=== PATIENT | female | born 1950 | race Caucasian/White ===

== ENCOUNTER 2019-05-15 13:30 | Outpatient (RCR) | payer MEDICARE, SELFPAY ==
--- NOTE | 2019-03-19 14:00 | PTOPEVAL ---
PHYSICAL THERAPY PLAN OF CARE Thank you for referring this patient to [facility]. Kaitlin is scheduled to be seen 2x/week for 4 weeks. Please review, sign, date and return this plan of care SUSANNA. I agree with and certify that the following plan of care is medically necessary. Referring Physician Date Attending Provider: Gadiel Zavala MD Therapy Assessment Status Assessment Status Assessment Status Evaluation Outpatient Past Medical History Cardiovascular History Hx Hypercholesterolemia Yes Hx Hypertension Yes Gastrointestinal History Hx Gastroesophageal Reflux Disease Yes Musculoskeletal History Hx Arthritis Yes: osteoarthritis Hx Spinal Surgery Yes: spinal cages Endocrine History Hx Hypothyroidism Yes Reproductive History Hx Hysterectomy Yes Psychosocial History Hx Anxiety Yes Hx Attention Deficit Disorder Yes Evaluation Information Problem Diagnosis back pain, frequent falls Onset 4 years ago Subjective Information Kaitlin is here today with c/ Query Text:As Reported By Patient/ o back pain with frequent Family falls. 4 years ago, she experienced back pain with sciatica and she received a fusion surgery and since the surgery she falls frequently. States that she fell 9 times this morning. She usually wears knee pads and her elbow has a cyst she fell on it so many times. Her usually helps her to stand up. She uses a rollator to walk and does have a power wheelchair 50% of the time. reports that since the surgery her back pain is worse ( sciatic pain did reduce) and she falls all the time (did not fall prior to surgery). She did therapy less than a year ago and reports that it did not help. denies changes in bowel or bladder. Previous Treatments For This Problem physical therapy at a different facility in 2018 Pain Scale Used Numeric (1 - 10) Self Report Pain Assessment Spine, Lumbar Reported Pain Level 8 Pain Frequency Chronic,Continuous Hip Strength
--- NOTE | 2019-04-18 12:06 | PTOPEVAL ---
PHYSICAL THERAPY PLAN OF CARE UPDATE AND PROGRESS REPORT Thank you for referring this patient to [facility]. Kaitlin will be seen for 2x/week for 4 weeks with continued PT. Please review, sign, date and return this plan of care SUSANNA. I agree with and certify that the following plan of care is medically necessary. Referring Physician Date Attending Provider: Gadiel Zavala MD Re-evaluation Outpatient Past Medical History Neurological History Hx Neurological Disorders No Significant History Cardiovascular History Hx Hypercholesterolemia Yes Hx Hypertension Yes Respiratory History Hx Respiratory Disorders No Significant History Gastrointestinal History Hx Gastroesophageal Reflux Disease Yes Genitourinary History Hx Other Genitourinary Disorders Yes: overactive bladder Musculoskeletal History Hx Arthritis Yes: osteoarthritis Hx Spinal Surgery Yes: spinal cages Hematological History Hx Hematological Disorders No Significant History Endocrine History Hx Hypothyroidism Yes HEENT History Hx HEENT Disorders No Significant History Integumentary History Hx Other Skin Disorders Yes: knot on right elbow Reproductive History Hx Hysterectomy Yes Psychosocial History Hx Anxiety Yes Hx Attention Deficit Disorder Yes Pain History Has Past Pain Affected Your Daily Life Yes: chronic back pain Anesthesia History Hx Anesthesia Reactions No Significant History Evaluation Information Problem Diagnosis back pain, frequent falls Onset 4 years ago Subjective Information Kaitlin continues to Query Text:As Reported By Patient/ experience frequent falls and Family severe back pain. She notes today that her handwriting is horrible and PT notes that her voice volume is consistently low and is requires significant effort to increase volume. Pain Scale Pain Scale Used Numeric (1 - 10) Self Report Pain Assessment Spine, Lumbar Reported Pain Level 6 Pain Description Aching,Soreness Pain Radiation Back Pain Aggravating Factors Other Pain Aggravating Factors Other Pain Aggravating Factors over did it the last few days, making several batches of cookies. Pain Behaviors Guarding Interventions Used By Clinicians Exercise Additional Pain Comments fell several times over the weekend, likely due fatigue Hip Strength Right Hip Flexion Strength 4+ Good + Hip Extension Strength 3+ Fa
--- NOTE | 2019-05-15 14:27 | PTOPEVAL ---
Thank you for referring this patient to [facility]. Please review, sign, date and return this plan of care SUSANNA. I agree with and certify that the following plan of care is medically necessary. Referring Physician Date Attending Provider: Gadiel Zavala MD Re-evaluation Outpatient Past Medical History Neurological History Hx Neurological Disorders No Significant History Cardiovascular History Hx Hypercholesterolemia Yes Hx Hypertension Yes Respiratory History Hx Respiratory Disorders No Significant History Gastrointestinal History Hx Gastroesophageal Reflux Disease Yes Genitourinary History Hx Other Genitourinary Disorders Yes: overactive bladder Musculoskeletal History Hx Arthritis Yes: osteoarthritis Hx Spinal Surgery Yes: spinal cages Hematological History Hx Hematological Disorders No Significant History Endocrine History Hx Hypothyroidism Yes HEENT History Hx HEENT Disorders No Significant History Integumentary History Hx Other Skin Disorders Yes: knot on right elbow Reproductive History Hx Hysterectomy Yes Psychosocial History Hx Anxiety Yes Hx Attention Deficit Disorder Yes Pain History Has Past Pain Affected Your Daily Life Yes: chronic back pain Anesthesia History Hx Anesthesia Reactions No Significant History Evaluation Information Problem Diagnosis back pain, frequent falls Onset 4 years ago Subjective Information Kaitlin continues to Query Text:As Reported By Patient/ experience frequent falls and Family severe back pain. She goes to the neurologist tomorrow for assessment of Parkinson's Disease Self Report Pain Assessment Spine, Lumbar Reported Pain Level 0 Pain Score Pain Score 0: Self Report Additional Pain Score Comments her back is good today, not hurting at all Hip Strength Right Hip Flexion Strength 5 Normal Hip Extension Strength 4- Good - Hip Abduction Strength 3+ Fair + Left Hip Flexion Strength 5 Normal Hip Extension Strength 4- Good - Hip Abduction Strength 3+ Fair + Knee Strength Right Knee Flexion Strength 5 Normal Knee Extension Strength 5 Normal Left Knee Flexion Strength 5 Normal Knee Extension Strength 5 Normal Martinez Balance Assessment Sitting to Standing Independent w/out Hands Unsupported Stance Ability Supervision- 2 minutes Sitting Unsupported, Feet on Floor Supervision- 2 minutes Standing to Sitting Safel
== END 2019-06-05 08:52 | disposition home or self-care (01) ==
LOC: ANHPT 13:30
PROVIDERS: PCP Family Medicine; Visit Provider Family Medicine
DX: M54.5 Low back pain (principal)
CPT/HCPCS: 97110; 97116; 97162

== ENCOUNTER 2019-11-21 14:51 | Outpatient (CLI) | payer MEDICARE, SELFPAY ==
--- NOTE | ~2019-11-21 | MM_ITS ---
EXAMINATION: MM screening germain BI w katie HISTORY: Screening TECHNIQUE: Craniocaudal and mediolateral oblique 3-D tomosynthesis images were obtained and synthetic 2-D images were generated. CAD analysis was submitted and interpreted. COMPARISON: Comparison to multiple prior studies sequentially, with oldest reviewed study dated 08/26. BREAST PARENCHYMAL COMPOSITION: There are scattered areas of fibroglandular density. FINDINGS: There is no evidence of suspicious mass, calcification, or architectural distortion to sugg est malignancy in either breast. There has been no suspicious interval change. IMPRESSION: 1. No mammographic evidence of malignancy. 2. Recommend routine screening mammography in one year. BI-RADS Category 1: Negative Reviewed, dictated and finalized at location A.
== END 2019-11-21 14:52 | disposition home or self-care (01) ==
LOC: ANHIMG 14:52
PROVIDERS: PCP Family Medicine; Visit Provider Family Medicine
DX: Z12.31 Encounter for screening mammogram for malignant neoplasm of breast (principal)
CPT/HCPCS: 77063; 77067

== ENCOUNTER 2020-02-11 09:02 | Outpatient (CLI) | payer MEDICARE, SELFPAY ==
--- NOTE | 2020-02-18 11:28 | WPDPFTINT ---
PFT Interpretation PFT Interpretation: This PFT met all criteria for ATS standards and reproducibility FEV/FVC post bronchodilator 78% FEV1 107% or 2.04 liters FVC 98% or 2.63 liters TLC 97% RV 87% RV/TLC 36% DLCO 88% when adjusted for alveolar volume but not adjusted for hemoglobin Flow volume loops were normal Impression: This is a normal PFT. Clinical correlation is advised.
== END 2020-02-11 09:03 | disposition home or self-care (01) ==
PROVIDERS: PCP Family Medicine; Visit Provider Internal Medicine Critical Care Medicine
DX: R06.02 Shortness of breath (principal)
CPT/HCPCS: 94060; 94618; 94726; 94729

== ENCOUNTER → 2020-02-11 10:34 | Outpatient (CLI) | payer MEDICARE, SELFPAY ==
--- NOTE | ~2020-02-11 | XR_ITS ---
EXAMINATION: XR chest 2V DATE: 02/11/2020 11:09 INDICATION: Shortness of breath TECHNIQUE: PA and lateral views of the chest are obtained. COMPARISON: 01/04/2016 FINDINGS: The lungs are free of acute opacities. Calcified pulmonary nodules are consistent with old granulomatous disease. There is no pleural effusion or pneumothorax. The cardiomediastinal silhouette is normal. There is mild thoracic spondylosis. Vertebroplasty changes noted at L1. There is partiall y imaged fusion hardware in the cervical and lumbar spine. IMPRESSION: 1. No acute cardiopulmonary abnormality. Reviewed, dictated and finalized at location A.
== END ==
PROVIDERS: PCP Family Medicine; Visit Provider Internal Medicine Critical Care Medicine
DX: R06.02 Shortness of breath (principal)
CPT/HCPCS: 71046

== ENCOUNTER 2020-03-24 12:38 | Outpatient (CLI) | payer MEDICARE, SELFPAY ==
--- NOTE | 2020-03-27 12:27 | WPDPFTINT ---
PFT Interpretation PFT Interpretation: Methacholine Challenge Study: FEV1 decreased from 2.05 liters or 91% to 1.57 liters or 69% or decrease by 24% at level three or 0.25 mg/ml This is a positive Methacholine Challenge Study. Clinical correlation is advised.
== END 2020-03-24 12:39 | disposition home or self-care (01) ==
PROVIDERS: PCP Family Medicine; Visit Provider Internal Medicine Critical Care Medicine
DX: R06.02 Shortness of breath (principal); R94.2 Abnormal results of pulmonary function studies
CPT/HCPCS: 94070; J7674

== ENCOUNTER 2020-06-23 12:36 | Outpatient (CLI) | payer MEDICARE, SELFPAY ==
--- NOTE | ~2020-06-23 | CT_ITS ---
EXAMINATION: CT diagnostic chest wo con EXAM DATE: 06/23/2020 13:41 INDICATION: SOB at rest and with exertion. Chronic cough >6 mo. TECHNIQUE: Spiral CT of the chest without contrast. Axial, coronal and sagittal images were reviewe d. Coronal maximum intensity pixel images of chest reviewed. The dose-length product (DLP) for this examination was 118.80 mGy-cm. The exposure was tailored according to patient size (auto mA exposur e control), and iterative reconstruction (ASIR) was used as additional dose reduction technique. The re is no prior study for comparison. FINDINGS: Several calcified granulomas. No suspicious pulmonary nodules. There are no pleural or pe ricardial effusions. Tracheobronchial tree is patent. There is no mediastinal, hilar or axillary lymphadenopathy. There is no pneumothorax. Heart normal in size. There is mild coronary arteria l calcification, arterial sclerosis. There is small sliding gastroesophageal hiatal hernia. There is chronic L1 mild to moderate compression fracture or burst fracture which has been treated with methy lmethacrylate injection. IMPRESSION: Small gastroesophageal hiatal hernia. No suspicious lung findings. Reviewed, dictated and finalized at location B. GUARD TESTER
--- NOTE | 2020-06-23 12:38 | ECHO_ITS ---
Patient Info Name: Kaitlin Bond Age: 69 years : 1950 Gender: Female Ht: 64 in Wt: 135 lbs BSA: 1.67 m2 HR: 65 bpm BP: 150 / 85 mmHg Heart Rhythm: Sinus Rhythm Technical Quality: Good Exam Date: 06/23/2020 1:04 PM Exam Location: [facility] Patient Status: Outpatient Admit Date: 06/23/2020 Staff Ordering Physician: Nolberto Stacy APRN Technology Integration Specialist: Gerald Vigil RDCS Attending Provider: Nolberto Stacy APRN Referring Physician: Regis ORR; Exam Type: CA echo doppler color flow Study Info Indications R06.02 - Shortness of breath Complete two-dimensional, color flow and Doppler transthoracic echocardiogram is performed. Strain analysis performed. History/Risk Factors Shortness of breath. Summary 1. Complete two-dimensional, color flow and Doppler transthoracic echocardiogram is performed. 2. Left ventricular chamber dimension is normal. 3. Left ventricular systolic function is normal, estimated at 60-65%. 4. The left ventricular diastolic function is grade I diastolic dysfunction. 5. E/e' 9 is minimally elevated. 6. Global longitudinal strain is normal at -19.7%. 7. There is trace mitral valve regurgitation. 8. No pulmonary hypertension, estimated pulmonary arterial systolic pressure is 37 mmHg. Left Ventricle E/e' 9 is minimally elevated. Global longitudinal strain is normal at -19.7%. Left ventricular chamber dimension is normal. Left ventricular systolic function is normal, estimated at 60-65%. The left ventricular diastolic function is grade I diastolic dysfunction. Right Ventricle Right ventricular systolic function is normal with normal TAPSE of 1.7 cm. Right ventricular chamber dimension is normal. Left Atria Left atrial chamber dimension is normal. Right Atria Right atrial chamber dimension is normal. Aortic Valve The aortic valve is trileaflet. There is no aortic valve stenosis. There is no aortic valve regurgitation. Pulmonic Valve There is no pulmonic regurgitation. Mitral Valve There is no mitral valve stenosis. There is trace mitral valve regurgitation. Tricuspid Valve There is no tricuspid valve regurgitation. No pulmonary hypertension, estimated pulmonary arterial systolic pressure is 37 mmHg. Pericardium/Pleural There is no pericardial effusion. Inferior Vena Cava Normal inferior vena cava with >50% collapse upon inspiration consistent with normal right atrial pressure, 5 mmHg. Aorta The aortic root size at the sinus of Valsalva is normal. Left Ventricular Outflow Tract Name Value Normal LVOT 2D LVOT Diameter 1.9 cm LVOT Doppler LVOT Peak Gradient 4 mmHg LVOT Mean Gradient 2 mmHg LVOT VTI 21 cm LVOT VTI/AV VTI Ratio 0.8 LVOT Stroke Volume 61 ml LVOT CO 3.6 l/min LVOT CI 2.2 l/min/m2 Mitral Valve Name
== END 2020-06-23 12:37 | disposition home or self-care (01) ==
PROVIDERS: Family Provider Family Medicine; PCP Family Medicine; Visit Provider Nurse Practitioner Family
DX: R06.02 Shortness of breath (principal); K21.9 Gastro-esophageal reflux disease without esophagitis
CPT/HCPCS: 71250; 93306

== ENCOUNTER → 2020-12-15 09:25 | Outpatient (CLI) | payer MEDICARE, SELFPAY ==
--- NOTE | ~2020-12-15 | MR_ITS ---
EXAMINATION: MR brain/brain stem wo con DATE: 12/15/2020 10:15 INDICATION: Diplopia. TECHNIQUE: Magnetic resonance imaging (MRI) of the brain and brainstem was performed without intraven ous contrast. Sequences included sagittal and axial T1-weighted FSE, axial diffusion-weighted FS EPI, axial T2*-weighted GRE, axial T2-weighted FLAIR Propeller, and axial T2-weighted Propeller. Apparent diffusion coefficient (ADC) maps were created. COMPARISON: None. FINDINGS: There are scattered areas of nonspecific increased T2-weighted signal intensity in the cere bral white matter. There is no intracranial hemorrhage, acute infarction, or abnormal intracranial ma ss lesion. The ventricles are normal in size. There are likely changes of ocular lens replacement daly geries. There is mild mucosal thickening in the ethmoid sinuses. The mastoid air cells are normal. IMPRESSION: 1. Mild nonspecific cerebral white matter disease, which likely represents chronic small vessel ische lukas disease. Reviewed, dictated and finalized at location B. IMPRESSION: 1. Mild nonspecific cerebral white matter disease, which likely represents renal nurse donny small vessel ischemic disease.
== END ==
PROVIDERS: PCP Family Medicine
DX: H53.2 Diplopia (principal); H50.30 Unspecified intermittent heterotropia; R90.82 White matter disease, unspecified
CPT/HCPCS: 70551

== ENCOUNTER 2021-01-20 15:08 | Outpatient (CLI) | payer MEDICARE, SELFPAY ==
--- NOTE | ~2021-01-20 | MM_ITS ---
EXAMINATION: MM screening germain BI w katie HISTORY: Screening mammogram TECHNIQUE: Craniocaudal and mediolateral oblique 3-D tomosynthesis images were obtained and synthetic 2-D images were generated. CAD analysis was submitted and interpreted. COMPARISON: 11/21/2019, 10/26/2018, 08/26/2017 bilateral digital screening mammogram examinations BREAST PARENCHYMAL COMPOSITION: There are scattered areas of fibroglandular density. FINDINGS: There is no evidence of suspicious mass, calcification, or architectural distortion to sugg est malignancy in either breast. There has been no suspicious interval change. IMPRESSION: 1. No mammographic evidence of malignancy. 2. Recommend routine screening mammography in one year. BI-RADS Category 1: Negative Reviewed, dictated and finalized at location A.
== END 2021-01-20 15:09 | disposition home or self-care (01) ==
LOC: ANHIMG 15:10
PROVIDERS: PCP Family Medicine; Visit Provider Family Medicine
DX: Z12.31 Encounter for screening mammogram for malignant neoplasm of breast (principal)
CPT/HCPCS: 77063; 77067

== ENCOUNTER → 2021-02-01 02:29 | Outpatient (CLI) | payer MEDICARE, SELFPAY ==
[2021-02-02 19:14] LABS: SARS-CoV-2 RNA PCR Negative
== END ==
PROVIDERS: PCP Family Medicine; Visit Provider Family Medicine
DX: Z01.812 Encounter for preprocedural laboratory examination (principal); Z20.822 Contact with and (suspected) exposure to COVID-19
CPT/HCPCS: C9803; U0003; U0005

== ENCOUNTER 2021-02-10 00:48 | Day surgery (SDC) | payer MEDICARE, SELFPAY ==
[2021-01-27 13:42] VITALS: BMI 21.7
[2021-02-10 06:59] VITALS: BP 140/80; PULSE 70; RESP 18; TEMP 36.6; O2SAT 100
[2021-02-10] MEDS: LACTATED RINGERS 1,000 ML 150 ML IV CONT (07:10)
--- NOTE | 2021-02-10 07:27 | WPDANESEPPF ---
Anes - Initial Pre Proc Eval Procedure: Operation Date: 02/10/21 08:00 Proposed Procedures p Esophagogastroduodenoscopy - Simon Ordonez MD Date/Time: 02/10/21 07:27 Surgeon: Simon Ordonez MD Pre Op Diagnosis: GERD Patient Data Age: 70 Gender: F Height: 1.63 m Weight: 56.2 kg Last Vital Signs Temp 36.6 C 02/10/21 06:59 Pulse 70 02/10/21 06:59 Resp 18 02/10/21 06:59 BP 140/80 02/10/21 06:59 Pulse Ox 100 02/10/21 06:59 Allergies Allergy/AdvReac Type Severity Reaction Status Date / Time gadobenic acid Allergy Intermediate Swelling Verified 02/10/21 06:58 [From CONTRAST-MRI] Home Medications Medication Instructions Recorded Confirmed Type amlodipine 10 mg tablet 10 mg PO DAILY #90 tablet 06/08/20 01/27/21 Rx atorvastatin 20 mg tablet 20 mg PO DAILY #90 tablet 06/08/20 01/27/21 Rx metoprolol succinate 100 mg 100 mg PO DAILY #90 tablet 06/08/20 01/27/21 Rx tablet,extended release 24 hr levothyroxine 50 mcg tablet 50 mcg PO DAILY #90 tablet 09/09/20 01/27/21 Rx omeprazole 40 mg capsule,delayed 40 mg PO BID #180 cap 11/26/20 01/27/21 Rx release linaclotide 72 mcg capsule 72 mcg PO DAILY #90 cap 01/14/21 01/27/21 Rx celecoxib 200 mg PO BID 01/27/21 01/27/21 History eszopiclone [Lunesta] 3 mg PO HS 01/27/21 01/27/21 History flaxseed oil 1,000 mg PO DAILY 01/27/21 01/27/21 History oxybutynin chloride 10 mg PO DAILY 01/27/21 01/27/21 History vitamin B complex [Super B Complex] 1 cap PO DAILY 01/27/21 01/27/21 History Patient hx anesthesia problems: none Family hx anesthesia problems: none Results Review: All pre-operative results and documents have been reviewed as part of the pre-operative evaluation. [facility] Past Medical History Medical History (Updated 01/21/21 @ 07:57 by Gadiel Zavala MD) Arthritis At high risk for falls BMI 22.0-22.9, adult Breast cancer screening by mammogram mammogram on 01/20/2021 was negative. Recheck in 1 year Chronic back pain Chronic cough Chronic depression Chronic low back pain with left-sided sciatica Chronic low back pain with right-sided sciatica Colon cancer screening Constipation Cough Elbow contusion Encounter for preprocedure screening laboratory testing for COVID-19 Fatigue GERD (gastroesophageal reflux disease) Hiatal hernia Hyperlipidemia Hypertension Hypothyroidism Insomnia Mixed hyperlipidemia Overactive bladder Peripheral neuropathy Seborrheic keratosis Urinary frequency Urinary frequency volume chart completed Social History Social History Years smoked: 10 Smoking status: Former smoker Tobacco type: cigarettes Alcohol intake: current Living arrangements: with family Gender identity (if verbalized by the patient): Female Spiritual care concerns: No Anes - Eval Final PreProcedure Day of Procedure 02/10/21 07:27 Patient weight: normal Heart: regular rate and rhythm Lungs: clear to auscultation and normal air movement Airway: Mallampati scale class II Neurological: alert and oriented Last oral intake: >/= 8 hours ASA classification: III Emergent: no Anesthetic plan: proceed Anesthesia type and monitoring: general GIVS Results Review: All pre-operative results and documents have been reviewed as part of the pre-operative evaluation. Informed Consent: The patient's anesthetic plan and its attendant risks and benefits were discussed with the patient/family/POA. Questions were solicited and answers provided to the satisfaction of the patient/family/POA.
--- NOTE | 2021-02-10 08:00 | WPDHPUPDATE1 ---
History and Physical Update Update Date/Time: 02/10/21 08:00 History and Physical has been reviewed, including an updated exam of the patient. There are NO changes in the patient's condition. Risks, benefits, and alternatives have been discussed and questions answered. Patient agrees to proceed with procedure.
[2021-02-10] MEDS: BENZOCAINE (*SP) 60 ML SPRAY CAN (HURRICAINE) 1 SPRAY MUCOUS MEM (08:07)
[2021-02-10 08:16] VITALS: BP 100/67; PULSE 61; RESP 15; O2SAT 100
[2021-02-10 08:26] VITALS: BP 112/77; PULSE 62; RESP 17; O2SAT 99
[2021-02-10 08:36] VITALS: BP 129/85; PULSE 66; RESP 23; O2SAT 100
== END 2021-02-10 08:49 | disposition home or self-care (01) ==
PROVIDERS: PCP Family Medicine; Visit Provider Internal Medicine Gastroenterology
PROC: 0DJ08ZZ Inspection of Upper Intestinal Tract, Via Natural or Artificial Opening Endoscopic (ICD-10-PCS; CPT 43235; principal; 2021-02-10 08:00)
DX: K21.9 Gastro-esophageal reflux disease without esophagitis (principal); K44.9 Diaphragmatic hernia without obstruction or gangrene; K29.50 Unspecified chronic gastritis without bleeding; I10 Essential (primary) hypertension; E78.2 Mixed hyperlipidemia; E03.9 Hypothyroidism, unspecified; F32.9 Major depressive disorder, single episode, unspecified; Z87.891 Personal history of nicotine dependence
CPT/HCPCS: 43239; 88305; C9803; J7120; U0003; U0005

== ENCOUNTER 2021-03-04 12:40 | Outpatient (CLI) | payer MEDICARE, SELFPAY ==
--- NOTE | ~2021-03-04 | XR_ITS ---
XR hip LT min 3V w AP pelvis DATE: 03/04/2021 13:06 INDICATION: Left hip pain, chronic. History of multiple falls. TECHNIQUE: AP pelvis. AP, lateral and crosstable lateral views of left hip COMPARISON: 08/24/2018 pelvis and right hip FINDINGS: Posterior and interbody spinal fusion at L3-S1. The pubic symphysis and sacroiliac joints are intact. No pelvic fracture or bone destruction. Joint s paces are symmetric and relatively preserved. There is mild bilateral hip osteoarthritis. No fracture, dislocation, avascular necrosis or bone destruction of the left hip. IMPRESSION: L3-S1 posterior and interbody spinal surgical fusion Mild bilateral hip osteoarthritis Reviewed, dictated and finalized at location A.
== END 2021-03-04 12:41 | disposition home or self-care (01) ==
LOC: ANHIMG 12:43
PROVIDERS: PCP Family Medicine; Visit Provider Family Medicine
DX: M16.0 Bilateral primary osteoarthritis of hip (principal); Z98.1 Arthrodesis status
CPT/HCPCS: 73502

== ENCOUNTER 2021-09-01 01:53 | Day surgery (SDC) | payer MEDICARE, SELFPAY ==
[2021-08-17 13:06] VITALS: BMI 20.5
[2021-09-01 10:15] VITALS: BP 146/83; PULSE 96; RESP 16; TEMP 36.4; O2SAT 100
--- NOTE | 2021-09-01 10:20 | WPDANESEPPF ---
Anes - Initial Pre Proc Eval Procedure: Operation Date: 09/01/21 11:30 Proposed Procedures p Screening Colonoscopy - Simon Ordonez MD Date/Time: 09/01/21 10:20 Surgeon: Simon Ordonez MD Pre Op Diagnosis: neoplasm screening Patient Data Age: 71 Gender: F Height: 1.6 m Weight: 51.5 kg Last Vital Signs Temp 36.4 C L 09/01/21 10:15 Pulse 96 09/01/21 10:15 Resp 16 09/01/21 10:15 BP 146/83 H 09/01/21 10:15 Pulse Ox 100 09/01/21 10:15 Allergies Allergy/AdvReac Type Severity Reaction Status Date / Time gadobenic acid Allergy Intermediate Swelling Verified 09/01/21 10:14 [From CONTRAST-MRI] Home Medications Medication Instructions Recorded Confirmed Type amlodipine 10 mg tablet 10 mg PO DAILY #90 tablet 06/08/20 08/17/21 Rx levothyroxine 50 mcg tablet 50 mcg PO DAILY #90 tablet 09/09/20 08/17/21 Rx omeprazole 40 mg capsule,delayed 40 mg PO BID #180 cap 11/26/20 08/17/21 Rx release metoprolol succinate 100 mg 100 mg PO DAILY #90 tablet 03/22/21 08/17/21 Rx tablet,extended release 24 hr oxybutynin chloride 5 mg tablet 5 mg PO BID #180 tablet 03/22/21 08/17/21 Rx celecoxib 200 mg capsule 200 mg PO BID PRN #180 cap 05/18/21 08/17/21 Rx atorvastatin 20 mg tablet 20 mg PO DAILY #90 tablet 06/15/21 08/17/21 Rx eszopiclone 3 mg tablet 3 mg PO . q.h.s. PRN #30 tablet 08/17/21 08/17/21 Rx Patient hx anesthesia problems: post op nausea/vomiting Family hx anesthesia problems: none Results Review: All pre-operative results and documents have been reviewed as part of the pre-operative evaluation. [facility] Past Medical History Medical History (Updated 07/08/21 @ 15:34 by Gadiel Zavala MD) Arthritis At high risk for falls BMI 22.0-22.9, adult BMI 23.0-23.9, adult Breast cancer screening by mammogram mammogram on 01/20/2021 was negative. Recheck in 1 year Chronic back pain Chronic cough Chronic depression Chronic left hip pain Chronic low back pain with left-sided sciatica Chronic low back pain with right-sided sciatica Colon cancer screening Constipation Cough Elbow contusion Encounter for preprocedure screening laboratory testing for COVID-19 Essential hypertension Fatigue GERD (gastroesophageal reflux disease) Hiatal hernia Hyperlipidemia Hypertension Hypothyroidism TSH 1.22 with free T4 at 1.5 on 12/15/2020 Insomnia Low iron (12/15/20) iron 51 with 14% saturation and hemoglobin 12.5 on 12/15/2020 Mixed hyperlipidemia total cholesterol 207, triglycerides 87, HDL 62, LDL 126 on 12/15/2020 Overactive bladder Peripheral neuropathy Seborrheic keratosis Urinary frequency Urinary frequency volume chart completed Vitamin D deficiency, unspecified (12/15/20) level low at 26 with goal greater than 30 on 12/15/2020 Weight loss, unintentional Surgical History Surgical History History of back surgery lumbosacral fusion Family History Family History Other Alcohol abuse Diabetes mellitus Hypertension Social History Social History Years smoked: 10 Smoking status: Former smoker Tobacco type: cigarettes Alcohol intake: never Substance use: never Substance use type: does not use Living arrangements: with family Gender identity (if verbalized by the patient): Female Spiritual care concerns: No Anes - Eval Final PreProcedure Day of Procedure 09/01/21 10:20 Patient weight: normal Heart: regular rate and rhythm Lungs: clear to auscultation and normal air movement Airway: Mallampati scale class II Neurological: alert and oriented Last oral intake: >/= 8 hours ASA classification: II Emergent: no Anesthetic plan: proceed Anesthesia type and monitoring: general GIVS and standard monitoring Results Review: All pre-operative results and documents have been reviewe
[2021-09-01] MEDS: LACTATED RINGERS 1,000 ML 150 ML IV CONT (10:27)
--- NOTE | 2021-09-01 10:53 | PM.HPGS ---
History of Present Illness History of Present Illness Consent: Risks, benefits, and alternatives have been discussed and questions answered. Patient agrees to proceed with procedure. Chief complaint: neoplasm screening Narrative: Kaitlin Bond is a 71 year old female here for screening colonoscopy, last one over 10 years ago. Review of Systems Constitutional: Constitutional: Denies headache(s) and Denies weakness Eyes: Eyes: Denies blurry vision ENT: Reports Normal hearing present, Denies headache(s) and Denies neck pain Cardiovascular: Cardiovascular: Denies chest pain and Denies dyspnea Respiratory: Respiratory: Denies dyspnea Gastrointestinal: Gastrointestinal: Reports no additional gastrointestinal complaints Genitourinary: Genitourinary: Denies dysuria Musculoskeletal: Musculoskeletal: Denies neck pain Integumentary/Breasts: Skin/Breast: Denies dry skin Neurologic: Reports Normal hearing present, Denies headache(s) and Denies weakness Psychiatric: Psychiatric: Denies anxiety Endocrine: Endocrine: Denies change in body appearance Hematologic/Lymphatic: Hematologic/Lymphatic: Denies easy bleeding Allergic/Immunologic: Allergic/Immunologic: Denies urticaria PMFSH Past Medical History Medical History (Updated 07/08/21 @ 15:34 by Gadiel Zavala MD) Arthritis At high risk for falls BMI 22.0-22.9, adult BMI 23.0-23.9, adult Breast cancer screening by mammogram mammogram on 01/20/2021 was negative. Recheck in 1 year Chronic back pain Chronic cough Chronic depression Chronic left hip pain Chronic low back pain with left-sided sciatica Chronic low back pain with right-sided sciatica Colon cancer screening Constipation Cough Elbow contusion Encounter for preprocedure screening laboratory testing for COVID-19 Essential hypertension Fatigue GERD (gastroesophageal reflux disease) Hiatal hernia Hyperlipidemia Hypertension Hypothyroidism TSH 1.22 with free T4 at 1.5 on 12/15/2020 Insomnia Low iron (12/15/20) iron 51 with 14% saturation and hemoglobin 12.5 on 12/15/2020 Mixed hyperlipidemia total cholesterol 207, triglycerides 87, HDL 62, LDL 126 on 12/15/2020 Overactive bladder Peripheral neuropathy Seborrheic keratosis Urinary frequency Urinary frequency volume chart completed Vitamin D deficiency, unspecified (12/15/20) level low at 26 with goal greater than 30 on 12/15/2020 Weight loss, unintentional Surgical History Surgical History History of back surgery lumbosacral fusion Family History Family History Other Alcohol abuse Diabetes mellitus Hypertension Social History Social History Years smoked: 10 Smoking status: Former smoker Tobacco type: cigarettes Alcohol intake: never Substance use: never Substance use type: does not use Living arrangements: with family Gender identity (if verbalized by the patient): Female Spiritual care concerns: No Meds Home Medications and Allergies Home Medications Medication Instructions Recorded Confirmed Type amlodipine 10 mg tablet 10 mg PO DAILY #90 tablet 06/08/20 09/01/21 Rx levothyroxine 50 mcg tablet 50 mcg PO DAILY #90 tablet 09/09/20 09/01/21 Rx omeprazole 40 mg capsule,delayed 40 mg PO BID #180 cap 11/26/20 09/01/21 Rx release metoprolol succinate 100 mg 100 mg PO DAILY #90 tablet 03/22/21 09/01/21 Rx tablet,extended release 24 hr oxybutynin chloride 5 mg tablet 5 mg PO BID #180 tablet 03/22/21 09/01/21 Rx celecoxib 200 mg capsule 200 mg PO BID PRN #180 cap 05/18/21 09/01/21 Rx atorvastatin 20 mg tablet 20 mg PO DAILY #90 tablet 06/15/21 09/01/21 Rx eszopiclone 3 mg tablet 3 mg PO . q.h.s. PRN #30 tablet 08/17/21 09/01/21 Rx Allergies Allergy/AdvReac Type Severity Reaction Status Date / Time gadobenic acid Allergy Intermediate
[2021-09-01 11:12] VITALS: BP 96/61; PULSE 69; RESP 19; O2SAT 100
[2021-09-01 11:22] VITALS: BP 108/73; PULSE 70; RESP 15; O2SAT 100
[2021-09-01 11:32] VITALS: BP 130/84; PULSE 76; RESP 16; O2SAT 100
== END 2021-09-01 11:40 | disposition home or self-care (01) ==
PROVIDERS: PCP Family Medicine; Visit Provider Internal Medicine Gastroenterology
PROC: 0DJD8ZZ Inspection of Lower Intestinal Tract, Via Natural or Artificial Opening Endoscopic (ICD-10-PCS; CPT 45378; principal; 2021-09-01 11:30)
DX: Z12.11 Encounter for screening for malignant neoplasm of colon (principal); C18.2 Malignant neoplasm of ascending colon; K63.5 Polyp of colon; K21.9 Gastro-esophageal reflux disease without esophagitis; K44.9 Diaphragmatic hernia without obstruction or gangrene; I10 Essential (primary) hypertension; E03.9 Hypothyroidism, unspecified; E78.2 Mixed hyperlipidemia; E55.9 Vitamin D deficiency, unspecified; N32.81 Overactive bladder; M54.9 Dorsalgia, unspecified; M19.90 Unspecified osteoarthritis, unspecified site; M54.41 Lumbago with sciatica, right side; M54.42 Lumbago with sciatica, left side; G89.29 Other chronic pain; G62.9 Polyneuropathy, unspecified; F32.A Depression, unspecified; Z87.891 Personal history of nicotine dependence
CPT/HCPCS: 45385; 45380; 45381; 88305; 88342; J2704; J7120

== ENCOUNTER 2021-09-08 06:49 | Outpatient (CLI) | payer MEDICARE, SELFPAY ==
--- NOTE | ~2021-09-08 | CT_ITS ---
EXAMINATION: CT abdomen pelvis w con DATE: 09/08/2021 07:20 INDICATION: Colon cancer TECHNIQUE: Computed tomography (CT) of the abdomen and pelvis was performed with 100 CC Omnipaque 300 intravenous contrast. Automated exposure control and iterative reconstruction technique were employe d. Exam dose: 172.79 mGy-cm total exam DLP. COMPARISON: None. FINDINGS: The lung bases are clear of infiltrate or consolidation. Heart size is normal. No pericardi al or pleural effusion. The liver, gallbladder, bile ducts, spleen, pancreas and pancreatic duct are unremarkable. Normal morphology of the adrenal glands. An approximately 4 mm probable cyst at the lower pole of each kidney. The kidneys are otherwise unrem arkable. No urinary tract calculus or hydroureteronephrosis. The urinary bladder is unremarkable. Status post hysterectomy. Normal caliber of the abdominal aorta. No intraperitoneal or retroperitoneal or pelvic mass lesion or adenopathy or ascites. No bowel obstruction or intraperitoneal free air. Normal caliber of the abdominal aorta. No intraperitoneal or retroperitoneal or pelvic mass lesion or adenopathy or ascites is evident. Diffuse osteopenia. There is burst fracture deformity and vertebroplasty at L1. There is moderately severe degenerative d isc disease and 5.2 mm retrolisthesis at L2-3. Status post posterior and interbody spinal fusion at L3-S1. Borderline grade 1/grade 2 anterolisthesis at L5-S1. IMPRESSION: Probable small cyst at lower pole of each kidney Status post hysterectomy Burst fracture deformity and vertebroplasty at L1 Moderately severe degenerative disc disease and 5.2 mm retrolisthesis at L2-3 Status post posterior and interbody spinal fusion at L3-S1 Borderline grade 1/grade 2 anterolisthesis at L5-S1 Reviewed, dictated and finalized at [facility]. Reviewed, dictated and finalized at location [facility].
[2021-09-08 07:13] LABS: Estimated Glomerular Filt Rate > 60
== END 2021-09-08 06:50 | disposition home or self-care (01) ==
LOC: ANHIMG 06:54
PROVIDERS: PCP Family Medicine; Visit Provider Internal Medicine Gastroenterology
DX: K63.89 Other specified diseases of intestine (principal); Z90.710 Acquired absence of both cervix and uterus; Z98.890 Other specified postprocedural states; M51.36 Other intervertebral disc degeneration, lumbar region; Z98.1 Arthrodesis status; M43.17 Spondylolisthesis, lumbosacral region
CPT/HCPCS: 74177; Q9967

== ENCOUNTER 2021-10-04 09:59 | Outpatient (CLI) | payer MEDICARE, SELFPAY ==
--- NOTE | 2021-10-04 10:40 | ECG_ITS ---
Measurements Intervals [place] Rate: 70 P: 44 MI: 151 QRS: 38 QRSD: 89 T: 33 QT: 386 QTc: 418 Interpretive Statements SINUS RHYTHM COMPARED TO ECG 05/21/2019 13:09:50 NO SIGNIFICANT CHANGES Electronically Signed On 10-04-2021 15:34:01 CDT by Pio Browne MD
[2021-10-04 11:44] LABS: Hemoglobin 12.5 g/dL (12.0-15.0)
[2021-10-04 12:14] LABS: Carcinoembryonic Antigen 1.7 ng/mL (0.0-3.0)
== END 2021-10-04 10:00 | disposition home or self-care (01) ==
PROVIDERS: Anesthesiology; PCP Family Medicine; Visit Provider Surgery
DX: C18.2 Malignant neoplasm of ascending colon (principal); Z01.818 Encounter for other preprocedural examination
CPT/HCPCS: 36415; 82378; 85014; 85018; 86850; 86900; 86901; 93005

== ENCOUNTER 2021-10-13 14:33 | Inpatient (IN) | payer MEDICARE, SELFPAY ==
[2021-10-04 09:27] VITALS: BMI 19.8
--- NOTE | 2021-10-04 09:27 | PC.NURSE ---
Addendum entered by Marcy Trinidad RN 10/04/21 10:17: PT AWARE THAT LAST DOSE OF VIT E IS TO BE TAKEN ON 10/09/21 Original Note: Report to the Outpatient Waiting Room, entrance under the green pavilion located off [facility], at time _1000_ on date _10/13/21_. OR Time: _1200_. - You and your visitor will be asked a series of questions to screen for COVID 19 for your protection. - Only one visitor is allowed at this time. - The patient visitor is requested to leave or wait in car when not with patient. VISITING HOUS 10AM-8PM, USE MAIN HOSPITAL ENTRANCE - A mask is required within the hospital. Patients may have clear liquids (water, carbonated beverages, clear teas, apple juice) until 3 hours prior to surgery (0900 AM) with a maximum of 20 ounces. - No food from midnight until time of surgery Take the following medications with a SIP of water the morning of surgery: _AMLODIPINE, LEVOTHYROXINE, METOPROLOL_ Medications to discontinue per ANESTHESIA __VITAMIN E - 3 DAYS PRIOR TO SURGERY, Date to take last dose Please no make-up, nail azerbaijani, hairspray, perfume, deodorant, or body powder the day of surgery. No jewelry (including any body piercings) or valuables the day of surgery, leave them at home. Please take a shower or bath the night before, or the morning of, surgery with an antibacterial soap. Wear comfortable, loose fitting clothing. - Jewelry must be removed prior to entering the operating room. Rings and piercings that are not removed may be cut off. - The hospital will not accept responsibility for valuables. - Please leave all valuables, including medications, at home the day of surgery. If you are going home after surgery, a licensed starting gate driver must drive you home. - NO public transportation without another adult. - We recommend that an adult stay with you for 24 hours following discharge. - We also recommend that you do not drive, make important decision, drink alcoholic beverages, or take any drugs that were not prescribed by your health care provider for at least 24 hours after your discharge time. Follow any additional instructions given to you from DR. FLEMING. DIET/ENSURE BUNDLE, BOWEL PREP, ANTIBIOTICS, HIBICLENS SHOWER DAY BEFORE AND AM OF SURGERY If you or anyone in your household have experienced Covid symptoms in the past week, please notify your surgeon or the nurse liaison at the phone number below for possible testing. Instructions given to _PT_and asked if any additional questions and then verbalized understanding. Patient advised to call surgeon office or pre surgery nurse liaison [phone] if any additional questions.
[2021-10-04 10:19] VITALS: BP 132/80; PULSE 74; RESP 18; TEMP 36.9; O2SAT 100
--- NOTE | 2021-10-12 12:25 | WPDANESEPPF ---
Anes - Initial Pre Proc Eval Procedure: Operation Date: 10/13/21 12:00 Proposed Procedures p Hand Assisted Laparoscopic Right Hemicolectomy - Emil Black DO Date/Time: 10/12/21 12:25 Surgeon: Emil Black DO Pre Op Diagnosis: ascending colon CA Patient Data Age: 71 Gender: F Height: 1.6 m Weight: 50.9 kg Last Vital Signs Temp 36.9 C 10/04/21 10:19 Pulse 74 10/04/21 10:19 Resp 18 10/04/21 10:19 BP 132/80 10/04/21 10:19 Pulse Ox 100 10/04/21 10:19 O2 Del Method Room Air 10/04/21 10:19 Allergies Allergy/AdvReac Type Severity Reaction Status Date / Time gadobenic acid Allergy Intermediate Hives & Verified 10/04/21 10:13 [From CONTRAST-MRI] SWELLING adhesive tape AdvReac Mild SKIN Verified 10/13/21 10:08 IRRITATION Home Medications Medication Instructions Recorded Confirmed Type omeprazole 40 mg capsule,delayed 40 mg PO BID #180 caps 11/26/20 10/13/21 Rx release oxybutynin chloride 5 mg tablet 5 mg PO BID #180 tabs 03/22/21 10/13/21 Rx eszopiclone 3 mg tablet (Lunesta) 3 mg PO . q.h.s. PRN insomnia #30 08/17/21 10/13/21 Rx tabs erythromycin 500 mg tablet See Rx Instructions .Route 09/20/21 10/13/21 Rx .COMPLEX #6 tabs neomycin 500 mg tablet See Rx Instructions .Route 09/20/21 10/13/21 Rx .COMPLEX #6 tabs amlodipine 10 mg tablet 10 mg PO QAM 10/04/21 10/13/21 History atorvastatin 20 mg tablet 20 mg PO QAM 10/04/21 10/13/21 History celecoxib 200 mg capsule 200 mg PO BID 10/04/21 10/13/21 History levothyroxine 50 mcg tablet 50 mcg PO QAM 10/04/21 10/13/21 History metoprolol succinate 100 mg 100 mg PO QAM 10/04/21 10/13/21 History tablet,extended release 24 hr vitamin E 400 unit capsule 400 unit PO QAM 10/04/21 10/13/21 History ECG: Date of Service: 10/04/21 Procedure(s): CA 12 lead EKG Accession Number(s): [id number] cc: ~ ? Measurements Intervals? [place]? Rate: ? 70 ? P:? 44 HI: ? 151? QRS:? 38 QRSD: ? 89 ? T:? 33 QT: ? 386? QTc:? 418? Interpretive Statements SINUS RHYTHM COMPARED TO ECG 05/21/2019 13:09:50 NO SIGNIFICANT CHANGES Electronically Signed On 10-04-2021 15:34:01 CDT by Pio Browne MD Patient hx anesthesia problems: none Family hx anesthesia problems: none Results Review: All pre-operative results and documents have been reviewed as part of the pre-operative evaluation. [facility] Past Medical History Medical History Arthritis At high risk for falls BMI 22.0-22.9, adult BMI 23.0-23.9, adult Breast cancer screening by mammogram mammogram on 01/20/2021 was negative. Recheck in 1 year Chronic back pain Chronic cough Chronic depression Chronic left hip pain Chronic low back pain with left-sided sciatica Chronic low back pain with right-sided sciatica Colon cancer screening Colonic mass (~09/01/21) 25-30 mm mass ascending colon Constipation Cough Elbow contusion Encounter for preprocedure screening laboratory testing for COVID-19 Essential hypertension Fatigue GERD (gastroesophageal reflux disease) Hiatal hernia Hyperlipidemia Hypertension Hypothyroidism TSH 1.22 with free T4 at 1.5 on 12/15/2020 Insomnia Low iron (12/15/20) iron 51 with 14% saturation and hemoglobin 12.5 on 12/15/2020 Mixed hyperlipidemia total cholesterol 207, triglycerides 87, HDL 62, LDL 126 on 12/15/2020 Overactive bladder Peripheral neuropathy Seborrheic keratosis Urinary frequency Urinary frequency volume chart completed Vitamin D deficiency, unspecified (12/15/20) level low at 26 with goal greater than 30 on 12/15/2020 Weight loss, unintentional Surgical History Surgical History (Reviewe
[2021-10-12 15:00] VITALS: BP 114/73; PULSE 65; RESP 15; TEMP 36.6; O2SAT 99
[2021-10-13] VITALS (12 sets, daily range): BP systolic 100–134; BP diastolic 55–80; PULSE 62–79; RESP 10–20; TEMP 36–37.3; O2SAT 98–100
--- NOTE | ~2021-10-13 | XR_ITS ---
XR chest 1V portable DATE: 10/16/2021 06:13 INDICATION: Atrial fibrillation with rapid ventricular response TECHNIQUE: Portable AP chest on 10/16/2021 at 0606 hours COMPARISON: 06/23/2020 CT chest FINDINGS: There is air beneath the right leaf of the diaphragm and double wall sign in the right uppe r abdomen, likely due to recent abdominal surgery. There are numerous gas distended small bowel segme nts, likely due to postoperative adynamic ileus. Normal heart size. Aortic calcification and unfolding. No hilar or mediastinal enlargement. Right upper lobe calcified pulmonary granuloma. No pulmonary infiltrate or consolidation, pleural eff usion, pulmonary vascular congestion or pneumothorax is detected. IMPRESSION: Pneumoperitoneum; the patient's IM U nurse Marisol gives a history of recent abdominal daly abiola, which likely accounts for the free air No active cardiopulmonary disease Aortic atherosclerosis Reviewed, dictated and finalized at location A. IMPRESSION: Pneumoperitoneum; the patient's IM U nurse Marisol gives a history o f recent abdominal surgery, which likely accounts for the free air No active cardiopulmonary disease Aortic atherosclerosis
--- NOTE | ~2021-10-13 | CT_ITS ---
EXAMINATION: CT brain wo con INDICATION: Head injury COMPARISON: None TECHNIQUE: Standard unenhanced head CT. The dose-length product (DLP) was 605.33 mGy-cm. The mA was a djusted according to patient size. Iterative reconstruction technique was employed. FINDINGS: There is no acute intraparenchymal hemorrhage. No evidence of mass lesion. No evidence of a cute infarction. There is mild periventricular and subcortical hypodensity probably related to small vessel ischemic disease. There is mild prominence of the sulci and ventricles related to cerebral atr ophy. Intracranial calcified cerebral atherosclerosis is noted. There are no extra-axial collections. There is no mass effect or midline shift. Changes in the globes are likely from ocular lens surgery. The visualized sinuses and mastoid air cells are well aerated. IMPRESSION: 1. No acute intracranial abnormality. 2. Age related findings. Reviewed, dictated and finalized at location A.
--- NOTE | ~2021-10-13 | XR_ITS ---
XR abdomen/kub 1V DATE: 10/16/2021 06:13 INDICATION: Nausea and vomiting TECHNIQUE: 2 supine AP views on 10/16/2021 at 0602 0603 hours COMPARISON: 09/08/2021 CT abdomen pelvis FINDINGS: There is gaseous distention of multiple small bowel segments, which may be due to postopera tive adynamic ileus. Double wall sign in right upper quadrant suggests mild pneumoperitoneum, which is likely postoperativ e. There is subcutaneous emphysema of the abdominal wall. No visceromegaly or significant abnormal calcification is noted. Postoperative changes from posterior and interbody spinal fusion from L3-S1. Status post vertebroplas ty at L1. IMPRESSION: Probable postoperative adynamic ileus and mild pneumoperitoneum Reviewed, dictated and finalized at Location [facility]. Reviewed, dictated and finalized at location A.
--- NOTE | ~2021-10-13 | XR_ITS ---
XR chest 1V portable DATE: 10/16/2021 09:22 INDICATION: Tachycardia. Atrial fibrillation. TECHNIQUE: Portable upright AP chest on 10/16/2021 at 0918 hours COMPARISON: 10/16/2021 portable AP chest at 0606 hours FINDINGS: Heart size appears normal. Is aortic arch calcification. No hilar or mediastinal enlargemen t. Minimal atelectasis is suggested in the lower lung zones. No pulmonary consolidation. No pulmonary va scular congestion, pleural effusion or pneumothorax is evident. Density distention of the bowel. Status post vertebroplasty at L1. Osteopenia. IMPRESSION: Minimal atelectasis at the lung bases; otherwise no active cardiopulmonary disease Reviewed, dictated and finalized at location A. IMPRESSION: Minimal atelectasis at the lung bases; otherwise no active cardiopu lmonary disease
--- NOTE | 2021-10-13 11:02 | WPDHPUPDATE1 ---
History and Physical Update Update Date/Time: 10/13/21 11:02 History and Physical has been reviewed, including an updated exam of the patient. There are NO changes in the patient's condition. Risks, benefits, and alternatives have been discussed and questions answered. Patient agrees to proceed with procedure.
[2021-10-13] MEDS: ACETAMINOPHEN 500 MG TABLET 1000 MG PO (11:10)
[2021-10-13] MEDS: LACTATED RINGERS 1,000 ML 30 ML IV CONT ×2 (11:10→13:43)
[2021-10-13] MEDS: KETOROLAC 15 MG/ML VIAL (*BKC) IV PUSH (11:13)
--- NOTE | 2021-10-13 11:19 | SUR.PREOP ---
1110-DISCUSSED W/DR. FLEMING RE: PT VOID, STATES WILL HAVE CATHETER AND DOES NOT NEED TO VOID BEFORE GOING TO SURGERY.
[2021-10-13] MEDS: ceFAZolin 2 GM/D5W 50 ML 2 GM/50 ML BAG IVPB (11:41)
--- NOTE | 2021-10-13 13:43 | W.PM.PROC2 ---
Procedure Note - Detailed Date of Procedure 10/13/21 Pre-op Diagnosis ascending colon cancer Post-op Diagnosis Same Procedure Performed Hand assisted laparoscopic right hemicolectomy with ileocolic anastomosis Surgeon Emil Black, DO Anesthesia General and Local (Exparel) Indications This is a 71-year-old woman who presented with a recent finding of ascending colon cancer. She underwent colonoscopy on 09/01/2021 and was found to have a malignant-appearing mass in the ascending colon. Biopsies confirmed colon cancer. Discussions were made with the patient about treatment options and decision was made to proceed with hand assisted laparoscopic right hemicolectomy. Preoperative CEA level was 1.[address] showed no evidence of metastatic spread. Findings Hand assisted laparoscopic right hemicolectomy was performed. The tattooed region was identified in the mid ascending colon. There was no evidence of metastases to the liver or other intra-abdominal locations on visual inspection. The right colon was removed and sent to the lab for pathology. A [id number]-wc-[id number] anastomosis was performed with a 75 mm REZA stapler. Description of Procedure Procedure as well as risks benefits and alternatives were explained to the patient. Written consent was obtained and placed in chart prior to procedure. Patient was brought back to surgical suite. She was placed supine on operating table. Time-out was done to confirm patient procedure. She was then intubated by the anesthesia department. Her abdomen was prepped and draped in sterile fashion using chlorhexidine prep. A 7 centimeter vertical incision was made just superior to the umbilicus using a 15 blade scalpel. Electrocautery was used for hemostasis and for dissection down through Bobby's fascia. The linea alba was identified, and incised using electrocautery. Two Mariann clamps were used to lift the fascia anteriorly, and the peritoneum was then entered using electrocautery. The abdomen was inspected and no acute abnormalities were noted. The wound protector was placed at this incision, and the GelPort was applied with a 5 millimeter port placed through it. Carbon dioxide insufflation was used to create a pneumoperitoneum. The camera was inserted and the abdominal cavity was inspected. The tattooed region was identified on the mid ascending colon, and no other abnormalities were noted. The patient was placed in Trendelenburg position and rotated slightly to the left. A 5 millimeter incision was made in the lower midline and a 5 millimeter trocar was inserted under direct visualization. Another 5 millimeter incision was made in the left lower quadrant, and a 5 millimeter trocar was inserted under direct visualization. A transversus abdominis plane block with Exparel was performed under laparoscopic visualization bilaterally. After carefully inspecting the abdominal cavity, I began my dissection from a medial to lateral direction along the ileocolic pedicle. The cecum was tented anteriorly and laterally and this allowed me to visualize the ileocolic pedicle. The medial side and inferior side of the peritoneum was scored using hook electrocautery and the retroperitoneal plane was entered. Careful dissection was performed using hook electrocautery in this relatively avascular plane. The duodenum was identified and swept posteriorly. I then continued to dissect proximally along the ileocolic pedicle. I isolated the ileocolic vein and artery individually and performed a high ligation using bipolar cautery. Hemostasis appeared adequate. I then continued the medial to lateral dissection maintaining this avascular plane. I also dissected along the transverse colon to the right side all the way to the level of the hepatic flexure. The terminal ileum and appendix were then retracted medially and the lateral peritoneal attachments were taken down using hook electrocautery. The root of the mesentery was then carefully ta
--- NOTE | 2021-10-13 14:04 | SUR.PHASEI ---
REPORT GIVEN TO MARJAN VALDIVIA RN
[2021-10-13] MEDS: MORPHINE SULFATE (*CRX) 2 MG/ML INJ IV PUSH ×3 (14:55→22:36)
[2021-10-13] MEDS: LACTATED RINGERS 1,000 ML 100 ML IV CONT (14:59)
--- NOTE | 2021-10-13 15:02 | PC.NURSE ---
This patient, Kaitlin Bond, was admitted to Medical Room 252-01. Patient/family oriented to hospital policies and general routines including ID bracelet, bed and alarms, visiting hours, pain management, procedures, bathroom and other care routines, personal items, smoking policy, room service/diet, and visiting hours. Information on how to activate the Rapid Response Team has been discussed. Patient/Family are encouraged to report perceived risks to care and to ask questions if they do not understand what they are told or what they should do.
[2021-10-13] MEDS: ACETAMINOPHEN 500 MG TABLET PO ×2 (17:30→22:37)
[2021-10-14] VITALS (7 sets, daily range): BP systolic 124–136; BP diastolic 64–78; PULSE 60–75; RESP 16; TEMP 36.7–37.1; O2SAT 97–98; BMI 21.0
[2021-10-14] MEDS: MORPHINE SULFATE (*CRX) 2 MG/ML INJ IV PUSH ×4 (00:43→08:14)
[2021-10-14] MEDS: LACTATED RINGERS 1,000 ML 100 ML IV CONT (00:43)
[2021-10-14] MEDS: LEVOTHYROXINE SODIUM 50 MCG TABLET PO (05:38)
[2021-10-14] MEDS: ACETAMINOPHEN 500 MG TABLET PO ×3 (05:38→17:01)
[2021-10-14 05:39] LABS: Basophils Percent Auto 0.2 % (0.2-1.2); Hematocrit 32.9 % (37.0-47.0); Immature Granulocyte Absolute 0.05 K/mm3 (0.00-0.031); Immature Granulocyte Percent A 0.4 % (0-0.5); Lymphocytes Absolute Auto 0.84 K/mm3 (0.9-3.2); Lymphocytes Percent Auto 7.1 % (18.3-44.2); Mean Corpuscular HGB Conc 33.4 g/dl (32-36); Mean Corpuscular Hemoglobin 29.6 pg (26-34); Mean Corpuscular Volume 88.7 fl (80-100); Mean Platelet Volume 9.5 fl (7.4-10.4); Monocytes Absolute Auto 0.7 K/mm3 (0.1-0.6); Monocytes Percent Auto 5.8 % (2.6-8.5); Neutrophils Absolute Auto 10.3 K/mm3 (1.3-6.7); Neutrophils Percent Auto 86.5 % (45.5-73.1); Platelet Count Result 329 k/mm3 (150-375); Red Blood Count 3.71 M/mm3 (4.2-5.4); Red Cell Distribution Width 13.5 % (11.5-14.5); White Blood Count 11.9 K/mm3 (4.5-10.0)
[2021-10-14 05:57] LABS: Anion Gap 7 mmol/L (8-16); Blood Urea Nitrogen 8 mg/dL (7-17); Calcium 8.8 mg/dL (8.4-10.2); Carbon Dioxide 29 mmol/L (22-30); Chloride 101 mmol/L (98-107); Estimated CRCL calculation 69 ml/min; Estimated Glomerular Filt Rate > 60; Glucose 132 mg/dL (65-110); Potassium 3.9 mmol/L (3.4-5.0); Sodium 137 mmol/L (137-145)
[2021-10-14] MEDS: ATORVASTATIN 20 MG TABLET PO (08:05)
[2021-10-14] MEDS: OXYBUTYNIN CHLORIDE 5 MG TABLET PO ×2 (08:05→17:01)
[2021-10-14] MEDS: amLODIPine BESYLATE 5 MG TABLET 10 MG PO (08:05)
[2021-10-14] MEDS: METOPROLOL SUCCINATE EXT REL 100 MG TABCR PO (08:05)
[2021-10-14] MEDS: PANTOPRAZOLE 40 MG TABLET PO ×2 (08:05→20:09)
[2021-10-14] MEDS: ENOXAPARIN 40 MG/0.4 ML SYRINGE SUB-Q (08:05)
--- NOTE | 2021-10-14 10:10 | PM.PNGS ---
Progress Note: A&P Assessment and Plan (1) Colon cancer, ascending: Code(s): C18.2 - Malignant neoplasm of ascending colon Status: Acute Assessment and Plan: Post-op day 1 and doing well. Will advance to full liquids and stop IV fluids. Encouraged increasing activity as tolerated. Pathology pending. Repeat labs tomorrow. (2) Essential hypertension: Code(s): I10 - Essential (primary) hypertension Status: Acute Assessment and Plan: BP stable. Continue home medications. (3) Peripheral neuropathy: Qualifiers: Peripheral neuropathy type: polyneuropathy, unspecified Qualified Code(s): G62.9 - Polyneuropathy, unspecified Code(s): G62.9 - Polyneuropathy, unspecified Status: Acute (4) GERD (gastroesophageal reflux disease): Qualifiers: Esophagitis presence: without esophagitis Qualified Code(s): K21.9 - Gastro-esophageal reflux disease without esophagitis Code(s): K21.9 - Gastro-esophageal reflux disease without esophagitis Status: Chronic Assessment and Plan: Continue Protonix. She takes twice daily at home, will switch to BID. Plan I have discussed the patient's case and plan of care with Dr. Black. Subjective Subjective Date/Time Seen: 10/14/21 09:10 Post Op day: 1 (BRITTANY right hemicolectomy) Patient reports: tolerating liquids well, voiding w/o difficulty, no flatus, no bowel movement and nausea Interval history: Patient seen and examined. She reports feeling tired, because she had a hard time sleeping due to incisional pain. Pain is controlled with IV Morphine as needed. She reports some nausea before breakfast this morning, but improved after eating. She does feel bloated after having her clear liquid tray. No flatus. Ambulating with the walker to the bathroom and tolerating this well. Review of Systems Review of Systems: All systems reviewed & are unremarkable except as noted in HPI and below Exam Const: General: comfortable and no acute distress Orientation/consciousness: patient oriented x3 Resp: Effort & Inspection: normal respiratory effort Auscultation: clear to auscultation bilaterally Cardio: Rate: regular rate Rhythm: regular rhythm GI: Inspection: non-distended and incision (Abdominal incisions dry and intact, no signs of infection) GI Palp: Yes Soft to palpation and Yes Tenderness to palpation present (GI) (incisional) Auscultation: normal bowel sounds Neuro: General: moves all extremities and no focal motor deficits Extrem: General: no calf tenderness and no edema Psych: Insight: Good insight present (Psych) Judgement: Good judgement present (Psych) Objective Data Vital Signs Vital Signs: Vital Signs - 24 hr 10/13/21 13:43 10/13/21 13:55 10/13/21 14:10 Temperature 98.2 F Pulse Rate 62 68 70 Respiratory Rate 10 L 12 12 Blood Pressure 101/65 107/67 104/67 Pulse Oximetry 100 100 100 Oxygen Delivery Simple Face Mask Simple Face Mask Room Air Oxygen Flow Rate 6 6 10/13/21 14:25 10/13/21 14:32 10/13/21 14:45 Temperature 97.3 F L Pulse Rate 69 71 66 Respiratory Rate 14 12 18 Blood Pressure 106/63 109/70 105/70 Pulse Oximetry 100 100 100 Oxygen Delivery Room Air Room Air Oxygen Flow Rate 10/13/21 15:00 10/13/21 15:30 10/13/21 16:30 Temperature 97.4 F L 96.8 F L 96.8 F L Pulse Rate 66 65 73 Respiratory Rate 16 18 16 Blood Pressure 100/55 L 105/67 112/60 Pulse Oximetry 99 99 100 Oxygen Delivery Oxygen Flow Rate 10/13/21 20:52 10/13/21 23:21 10/14/21 04:18 Temperature 98.3 F 98.4 F 98.8 F Pulse Rate 76 77 75 Respiratory Rate 16 16 16 Blood Pressure 114/66 134/70 132/64 Pulse Oximetry 98 99 97 Oxygen Delivery Oxygen Flow Rate 10/14/21 08:05 10/14/21 08:00 10/14/21 08:18 Temperature 98.2 F Pulse Rate 70 74 Respiratory Rate 16 Blood Pressure 136/78 136/76 Pulse Oximetry 97 Oxygen Delivery Oxygen Flow Rate Intake/Ou
[2021-10-14] MEDS: HYDROcodone/acetaminophen (*CRX) 10-325 MG TABLET 1 TAB PO ×2 (12:55→20:10)
--- NOTE | 2021-10-14 13:10 | PHAR ---
Addendum entered by Maya Cantrell [facility] 10/14/21 13:15: #7 pills in prescription bottle rx #[id number] trent Original Note: The patient's home med of Eszopiclone (Lunesta) 3mg has been verified.
--- NOTE | 2021-10-14 13:52 | PCNSR ---
On 10/14/21, the student, Jason Ayoub, provided care and completed [facility] documentation on this patient. I have reviewed the student's documentation and agree with the findings.
[2021-10-15] VITALS (7 sets, daily range): BP systolic 107–142; BP diastolic 59–88; PULSE 62–69; RESP 16–21; TEMP 36.3–36.6; O2SAT 95–100
[2021-10-15] MEDS: ACETAMINOPHEN 500 MG TABLET PO ×2 (00:25→06:20)
[2021-10-15 05:53] LABS: Basophils Percent Auto 0.1 % (0.2-1.2); Eosinophils Absolute Auto 0.1 K/mm3 (0-0.3); Eosinophils Percent Auto 1.3 % (0-4.4); Hematocrit 30.7 % (37.0-47.0); Hemoglobin 10.2 g/dL (12.0-15.0); Immature Granulocyte Absolute 0.02 K/mm3 (0.00-0.031); Immature Granulocyte Percent A 0.3 % (0-0.5); Lymphocytes Absolute Auto 2.15 K/mm3 (0.9-3.2); Mean Corpuscular HGB Conc 33.2 g/dl (32-36); Mean Corpuscular Hemoglobin 29.9 pg (26-34); Mean Platelet Volume 9.5 fl (7.4-10.4); Monocytes Absolute Auto 0.8 K/mm3 (0.1-0.6); Monocytes Percent Auto 10.7 % (2.6-8.5); Neutrophils Absolute Auto 4.6 K/mm3 (1.3-6.7); Neutrophils Percent Auto 59.6 % (45.5-73.1); Platelet Count Result 310 k/mm3 (150-375); Red Blood Count 3.41 M/mm3 (4.2-5.4); Red Cell Distribution Width 13.7 % (11.5-14.5); White Blood Count 7.7 K/mm3 (4.5-10.0)
[2021-10-15 06:12] LABS: Anion Gap 2 mmol/L (8-16); Blood Urea Nitrogen 8 mg/dL (7-17); Calcium 8.5 mg/dL (8.4-10.2); Carbon Dioxide 33 mmol/L (22-30); Chloride 100 mmol/L (98-107); Estimated CRCL calculation 69 ml/min; Estimated Glomerular Filt Rate > 60; Glucose 94 mg/dL (65-110); Potassium 3.7 mmol/L (3.4-5.0); Sodium 135 mmol/L (137-145)
[2021-10-15] MEDS: LEVOTHYROXINE SODIUM 50 MCG TABLET PO (06:20)
[2021-10-15] MEDS: HYDROcodone/acetaminophen (*CRX) 10-325 MG TABLET 1 TAB PO (06:40)
--- NOTE | 2021-10-15 08:04 | PM.PNGS ---
Progress Note: A&P Assessment and Plan (1) Colon cancer, ascending: Code(s): C18.2 - Malignant neoplasm of ascending colon Status: Acute Assessment and Plan: advance diet to soft regular diet. Will switch pain meds to Percocet as needed. Will also get PT/ OT of al due to difficulty with mobility. Continue increasing activity as tolerated. Final pathology still pending. (2) Essential hypertension: Code(s): I10 - Essential (primary) hypertension Status: Acute Subjective Subjective Date/Time Seen: 10/15/21 08:04 Interval history: Bowels moving, but very little output so far. Tolerating full liquid diet and no nausea or vomiting. Pain on controlled with [place]. Patient states that this has not worked well in the past. She states that Percocet worked better for her back issues. Exam GI: Inspection: non-distended and incision ( Intact with glue) GI Palp: Yes Soft to palpation, Yes Tenderness to palpation present (GI) ( incisional) and No Guarding due to palpation present (GI) Auscultation: normal bowel sounds Objective Data Vital Signs Vital Signs: Vital Signs - 24 hr 10/14/21 08:05 10/14/21 08:18 10/14/21 12:18 Temperature 36.8 C 36.7 C Pulse Rate 70 74 60 Respiratory Rate 16 16 Blood Pressure 136/76 127/70 Pulse Oximetry 97 98 Oxygen Delivery 10/14/21 16:18 10/14/21 21:15 10/14/21 20:00 Temperature 36.7 C 37.0 C Pulse Rate 63 63 Respiratory Rate 16 16 Blood Pressure 127/70 124/73 Pulse Oximetry 98 98 Oxygen Delivery Room Air 10/15/21 00:55 10/15/21 05:04 Temperature 36.6 C 36.6 C Pulse Rate 62 65 Respiratory Rate 16 16 Blood Pressure 110/61 107/59 L Pulse Oximetry 96 95 Oxygen Delivery Intake/Output Intake/Output: Intake & Output 10/12/21 10/13/21 10/14/21 10/15/21 23:59 23:59 23:59 23:59 Intake Total 610 2910 50 Output Total 200 Balance 410 2910 50 Meds/Results Medications: Active Medications Generic Name Dose Route Start Last Admin Trade Name Freq PRN Reason Stop Dose Admin Amlodipine Besylate 10 mg 10/14/21 09:00 10/14/21 08:05 Amlodipine Besylate 5 Mg Tablet PO 10 mg QAM NATHANIEL Administration Atorvastatin Calcium 20 mg 10/14/21 09:00 10/14/21 08:05 Atorvastatin 20 Mg Tablet PO 20 mg QAM NATHANIEL Administration Enoxaparin Sodium 40 mg 10/14/21 09:00 10/14/21 08:05 Enoxaparin 40 Mg/0.4 Ml Syringe SUB-Q 40 mg DAILY NATHANIEL Administration Home Med 1 each 10/14/21 21:00 10/14/21 22:30 Home Med Eszopiclone 3mg Tab (Lunesta) PO 11/13/21 20:59 1 each HS PRN Administration Insomnia Levothyroxine Sodium 50 mcg 10/14/21 06:30 10/15/21 06:20 Levothyroxine Sodium 50 Mcg Tablet PO 50 mcg DAILY@0630 NATHANIEL Administration Metoprolol Succinate 100 mg 10/14/21 09:00 10/14/21 08:05 Metoprolol Succinate Ext Rel 100 Mg Tabcr PO 100 mg QAM NATHANIEL Administration Morphine Sulfate 2 mg 10/13/21 14:33 10/14/21 08:14 Morphine Sulfate (*Crx) 2 Mg/Ml Inj IV PUSH 2 mg Q2H PRN Administration Pain Rated 4-6 Ondansetron HCl 4 mg 10/13/21 14:33 Ondansetron Inj 4 Mg/2 Ml Vial IV PUSH Q4H PRN Nausea And Vomiting Oxybutynin Chloride 5 mg 10/13/21 17:00 10/14/21 17:01 Oxybutynin Chloride 5 Mg Tablet PO 5 mg BID NATHANIEL Administration Oxycodone/Acetaminophen 1 tablet 10/15/21 07:53 Oxycodone/Acetaminophen (*Crx) 5-325 Mg Tablet PO Q4H PRN Pain Rated 4-6 Oxycodone/Acetaminophen 2 tablet 10/15/21 07:53 Oxycodone/Acetaminophen (*Crx) 5-325 Mg Tablet PO Q4H PRN Pain Rated 7-10 Pantoprazole Sodium 40 mg 10/14/21 21:00 10/14/21 20:09 Pantoprazole 40 Mg Tablet PO 40 mg Q12HR NATHANIEL Administration Labs Labs: Laboratory Results - last 24 hr 10/15/21 10/15/21 05:22 05:22 WBC 7.7 RBC 3.41 L Hgb 10.2 L Hct 30.7 L MCV 90.0 MCH 29.9 MCHC 33.2 RDW 13.7 Plt Count 310 MPV 9.5 Immature G
[2021-10-15] MEDS: METOPROLOL SUCCINATE EXT REL 100 MG TABCR PO (08:30)
[2021-10-15] MEDS: PANTOPRAZOLE 40 MG TABLET PO ×2 (08:30→20:05)
[2021-10-15] MEDS: OXYBUTYNIN CHLORIDE 5 MG TABLET PO ×2 (08:30→16:00)
[2021-10-15] MEDS: amLODIPine BESYLATE 5 MG TABLET 10 MG PO (08:30)
[2021-10-15] MEDS: ATORVASTATIN 20 MG TABLET PO (08:30)
[2021-10-15] MEDS: ENOXAPARIN 40 MG/0.4 ML SYRINGE SUB-Q (08:31)
[2021-10-15] MEDS: oxyCODONE/ACETAMINOPHEN (*CRX) 5-325 MG TABLET 2 TABLET PO ×3 (12:00→20:04)
[2021-10-16] VITALS (16 sets, daily range): BP systolic 106–131; BP diastolic 61–86; PULSE 67–159; RESP 16–20; TEMP 36.3–37.1; O2SAT 95–98
--- NOTE | 2021-10-16 | ECHO_ITS ---
Patient Info Name: Kaitlin Bond Age: 71 years : 1950 Gender: Female Ht: 63 in Wt: 123 lbs BSA: 1.58 m2 HR: 140 bpm BP: 122 / 86 mmHg Heart Rhythm: Atrial Fibrillation Technical Quality: Fair Exam Date: 10/16/2021 8:35 AM [facility]: 213 Patient Status: Inpatient Admit Date: 10/13/2021 Staff Ordering Physician: Shila Duncan MD Phonograph Needle Tip Maker: Lorin Garcia RDCS Attending Provider: Emil Black DO Referring Physician: Dakota HOOK; Exam Type: CA echo doppler color flow Study Info Indications - AFIB RVR S/P OP Complete two-dimensional, color flow and Doppler transthoracic echocardiogram is performed. Summary 1. Complete two-dimensional, color flow and Doppler transthoracic echocardiogram is performed. 2. Left ventricular chamber dimension is normal. 3. Left ventricular systolic function is normal, estimated at >70%. 4. There is mildly increased left ventricular wall thickness. 5. The left ventricular diastolic function is indeterminate. 6. There is trace tricuspid valve regurgitation. 7. No pulmonary hypertension, estimated pulmonary arterial systolic pressure is 30 mmHg. Left Ventricle Left ventricular chamber dimension is normal. Left ventricular systolic function is normal, estimated at >70%. There is mildly increased left ventricular wall thickness. The left ventricular diastolic function is indeterminate. Right Ventricle Right ventricular chamber dimension is normal. Right ventricular systolic function is normal. Left Atria Left atrial chamber dimension is normal. Right Atria Right atrial chamber dimension is normal. Aortic Valve The aortic valve is trileaflet. There is mild aortic valve sclerosis. There is no aortic valve stenosis. There is no aortic valve regurgitation. Pulmonic Valve The pulmonic valve is not well visualized. Mitral Valve The mitral valve has normal leaflets. There is no mitral valve regurgitation. The mitral valve annulus is mildly calcified. Tricuspid Valve The tricuspid valve leaflets are normal. There is trace tricuspid valve regurgitation. No pulmonary hypertension, estimated pulmonary arterial systolic pressure is 30 mmHg. Pericardium/Pleural The pericardium appears epicardial fat pad. There is no pericardial effusion. Inferior Vena Cava Normal inferior vena cava with >50% collapse upon inspiration consistent with normal right atrial pressure, 5 mmHg. Aorta The aortic root size at the sinus of Valsalva is normal. There is mild aortic atherosclerosis. Left Ventricular Outflow Tract Name Value Normal LVOT 2D LVOT Diameter 2.0 cm LVOT Doppler LVOT Peak Gradient 6 mmHg LVOT Mean Gradient 3 mmHg LVOT VTI 19 cm LVOT VTI/AV VTI Ratio 0.8 LVOT Stroke Volume 59 ml LVOT CO 15.3 l/min LVOT CI 9.7 l/min/m2 Pulmonic Valve
[2021-10-16] MEDS: oxyCODONE/ACETAMINOPHEN (*CRX) 5-325 MG TABLET 2 TABLET PO (03:06)
--- NOTE | 2021-10-16 05:07 | ECG_ITS ---
Measurements Intervals [place] Rate: 136 P: CT: 0 QRS: 38 QRSD: 83 T: 28 QT: 298 QTc: 449 Interpretive Statements ATRIAL FIBRILLATION WITH RAPID VENTRICULAR RESPONSE ST DEPRESSION, CONSIDER SUBENDOCARDIAL INJURY [0.1+ mV ST DEPRESSION] ABNORMAL ECG COMPARED TO ECG 10/04/2021 11:19:56 ATRIAL FIBRILLATION NOW PRESENT Electronically Signed On 10-16-2021 11:23:42 CDT by Bobo Perez M.D.
--- NOTE | 2021-10-16 05:44 | P.PNCROSS_ITS ---
Event Note Event Note Event Note: SUBJECTIVE: PALPITATIONS LARGE EMESIS NEVER FELT LIKE THIS BEFORE OBJECTIVE: PATIENT IS STATUS POST OP DAY 3 Physical exam BP 122/86 HR 160 T 97.8? GENERAL: Patient is laying in bed, acutely ill looking, comfortable. HEENT: Atraumatic normocephalic, EOM intact, supple no JVD. Respiratory: clear to auscultation bilaterally Cardiovascular: S1-S2 heard irregularly irregular rhythm, no murmurs no rubs no gallops. Abdomen: Soft ,nontender ,no hepatosplenomegaly, no rebound tenderness, bowel sounds are present. Extremities: No edema, no clubbing, no cyanosis. Skin: Generalized pallor INVENTORY ADMINISTRATOR: Awake alert oriented x3 no focal sensorimotor deficit cranial nerves 2-12 grossly intact Assessment and plan 1- AFib with RVR: Transferred to IMU Diltiazem drip Therapeutic Lovenox ECHOCARDIOGRAM CHEST X-RAY KUB 2-NAUSEA/VOMITING: SUPPORTIVE CARE REPLACE ELECTROLYTES NEEDED NPO 3-COLON CA: STATUS POST COLON RESECTION Post up day 3 Incentive spirometry Deferred to General surgery primary team
[2021-10-16] MEDS: dilTIAZem 100 MG/100 ML 100 MG/100 ML BAG IV CONT (07:46)
[2021-10-16] MEDS: ENOXAPARIN 60 MG/0.6 ML SYRINGE 56 MG SUB-Q ×2 (07:47→18:04)
--- NOTE | 2021-10-16 08:03 | PC.NURSE ---
Patient arrived to the IMU department at 0729. Patient oriented to room policies and procedures. Call light within reach. Bedside updates obtained from receiving RN.
--- NOTE | 2021-10-16 09:00 | PM.IMCN ---
Assessment and Plan Assessment and plan (1) Primary adenocarcinoma of ascending colon: Onset Date: 09/01/21 Code(s): C18.2 - Malignant neoplasm of ascending colon Status: Acute Assessment and Plan: Patient is postop day 3 Postop care per surgery Diet per surgery Pain medications and antiemetics on board Trend labs (2) New onset a-fib: Code(s): I48.91 - Unspecified atrial fibrillation Status: Acute Assessment and Plan: AFib with a heart rate in the 180s Cardizem drip initiated IV fluids given Metoprolol IV given once Patient converted to sinus rhythm Lovenox and aspirin on board Patient will need to probably be started on anticoagulation orally Cardiology consulted thank you for your help Trend heart rate Tele monitor (3) Essential hypertension: Code(s): I10 - Essential (primary) hypertension Status: Acute Assessment and Plan: Blood pressure stable 125/72 Continue home metoprolol Hold amlodipine for now since patient is on Cardizem Trend blood pressure Adjust therapy as indicated HPI Data of Consult Consult date: 10/16/21 Requesting Physician: Emil Black DO Primary Care Provider: Gadiel Zavala MD Consult Narrative Reason for consult: Medical management Narrative: Kaitlin Bond is a 71 year old female with a past medical history arthritis, chronic cough, hypertension, hyperlipidemia who had elective malignant neoplasm removal. Patient is postop day 3 however last night she did have a moment of nausea vomiting with arrhythmia of AFib RVR. Patient was transferred IMCU and started on a Cardizem drip. Cardiology has been consulted. Labs are stable at this time. Patient was given half a L of fluids and a dose of IV metoprolol. Patient is currently in sinus rhythm. She did say that she is little nauseous when she eats something however it dissipates pretty quickly. She did have bowel movement today and feels better today. She denies any chest pain, shortness a breath, nausea, vomiting, diarrhea, constipation, weakness or fatigue. She did state that she was having a little bit of palpitations. She also stated that she was short of breath due to the fact that she can not breathe and deep due to the surgical procedure. Explained to her that she will get her pneumonia. Patient stated that she understood. We consult on the patient for medical management this time. Review of Systems Review of Systems: All systems reviewed & are unremarkable except as noted in HPI and below PMFSH Past Medical History Medical History Arthritis At high risk for falls BMI 22.0-22.9, adult BMI 23.0-23.9, adult Breast cancer screening by mammogram mammogram on 01/20/2021 was negative. Recheck in 1 year Chronic back pain Chronic cough Chronic depression Chronic left hip pain Chronic low back pain with left-sided sciatica Chronic low back pain with right-sided sciatica Colon cancer screening Colonic mass (~09/01/21) 25-30 mm mass ascending colon On 09/01/2021. the patient had a right hemicolectomy on 10/13/2021 for adenocarcinoma of the ascending colon. Constipation Cough Elbow contusion Encounter for preprocedure screening laboratory testing for COVID-19 Essential hypertension Fatigue GERD (gastroesophageal reflux disease) Hiatal hernia Hyperlipidemia Hypertension Hypothyroidism TSH 1.22 with free T4 at 1.5 on 12/15/2020 Insomnia Low iron (12/15/20) iron 51 with 14% saturation and hemoglobin 12.5 on 12/15/2020 Mixed hyperlipidemia total cholesterol 207, triglycerides 87, HDL 62, LDL 126 on 12/15/2020 Overactive bladder Peripheral neuropathy Primary adenocarcinoma of ascending colon (09/01/21) right hemicolectomy 10/13/2021. Seborrheic keratosis Urinary frequency Urinary frequency volume chart completed Vitamin D deficiency, unspecified (11/29
[2021-10-16] MEDS: ATORVASTATIN 20 MG TABLET PO (09:29)
[2021-10-16] MEDS: OXYBUTYNIN CHLORIDE 5 MG TABLET PO ×2 (09:29→18:04)
[2021-10-16] MEDS: PANTOPRAZOLE 40 MG TABLET PO ×2 (09:29→21:13)
[2021-10-16] MEDS: METOPROLOL SUCCINATE EXT REL 100 MG TABCR PO (09:29)
[2021-10-16] MEDS: METOPROLOL TARTRATE INJ 5 MG/5 ML VIAL 2.5 MG IV PUSH (09:30)
[2021-10-16] MEDS: LACTATED RINGERS 1,000 ML 999 ML IV CONT (09:30)
--- NOTE | 2021-10-16 10:18 | ECG_ITS ---
Measurements Intervals [place] Rate: 86 P: 32 [place]: 160 QRS: 26 QRSD: 94 T: 23 QT: 360 QTc: 431 Interpretive Statements SINUS RHYTHM NORMAL ECG COMPARED TO ECG 10/16/2021 05:23:34 SINUS RHYTHM NOW PRESENT AND ST ABNORMALITIES NO LONGER APPRECIATED Electronically Signed On 10-16-2021 11:24:52 CDT by Bobo Perez M.D.
--- NOTE | 2021-10-16 11:14 | PCOTNOTE ---
No OT treatment this date due to change in medical status.
--- NOTE | 2021-10-16 11:33 | PCPTNOTE ---
Patient transferred to IMU from [facility] due to increased HR. Patient continues to have HR into 140s to 170s. PT treatment held today due to increased HR. PT will continue to follow and resume PT when medically stable.
--- NOTE | 2021-10-16 12:27 | PM.PNGS ---
Progress Note: A&P Assessment and Plan (1) Primary adenocarcinoma of ascending colon: Onset Date: 09/01/21 Code(s): C18.2 - Malignant neoplasm of ascending colon Status: Acute Assessment and Plan: exam benign this am, restart clears and slowly ADAT, encourage OOB/IS Subjective Subjective Date/Time Seen: 10/16/21 12:27 emesis this am, but had diarrhea, feels better now Review of Systems Review of Systems: All systems reviewed & are unremarkable except as noted in HPI and below Exam Const: General: cooperative, comfortable and no acute distress Resp: Auscultation: clear to auscultation bilaterally Cardio: Rate: regular rate Rhythm: regular rhythm GI: Inspection: normal to inspection, distended and incision GI Palp: Yes abdominal tenderness, Yes Soft to palpation, Yes Tenderness to palpation present (GI), No Guarding due to palpation present (GI) and No Rigid due to palpation Objective Data Vital Signs Vital Signs: Vital Signs - 24 hr 10/15/21 13:28 10/15/21 14:00 10/15/21 19:48 Temperature 36.3 C L Pulse Rate 69 Respiratory Rate 16 Blood Pressure 125/73 Pulse Oximetry 97 Oxygen Delivery Room Air Room Air 10/15/21 22:13 10/16/21 02:41 10/16/21 05:35 Temperature 36.6 C 36.6 C 36.3 C L Pulse Rate 65 67 87 Respiratory Rate 21 H 18 18 Blood Pressure 142/88 H 118/72 122/86 Pulse Oximetry 100 96 95 Oxygen Delivery 10/15/21 21:50 10/16/21 07:46 10/16/21 08:00 Temperature 36.4 C Pulse Rate 150 H 141 H Respiratory Rate 16 Blood Pressure 116/68 Pulse Oximetry 96 97 Oxygen Delivery Room Air 10/16/21 09:29 10/16/21 09:30 10/16/21 09:36 Temperature Pulse Rate 159 H 147 H 148 H Respiratory Rate Blood Pressure 106/73 Pulse Oximetry Oxygen Delivery 10/16/21 10:52 Temperature Pulse Rate Respiratory Rate Blood Pressure 116/83 Pulse Oximetry Oxygen Delivery Intake/Output Intake/Output: Intake & Output 10/13/21 10/14/21 10/15/21 10/16/21 23:59 23:59 23:59 23:59 Intake Total 610 2910 1010 300 Output Total 200 200 480 Balance 410 2910 810 -180 Meds/Results Medications: Active Medications Generic Name Dose Route Start Last Admin Trade Name Freq PRN Reason Stop Dose Admin Amlodipine Besylate 10 mg 10/14/21 09:00 10/16/21 09:28 Amlodipine Besylate 5 Mg Tablet PO Not Given QAM [facility] Atorvastatin Calcium 20 mg 10/14/21 09:00 10/16/21 09:29 Atorvastatin 20 Mg Tablet PO 20 mg QAM [facility] Administration Enoxaparin Sodium 56 mg 10/16/21 06:00 10/16/21 07:47 Enoxaparin 60 Mg/0.6 Ml Syringe SUB-Q 56 mg Q12H NATHANIEL Administration Home Med 1 each 10/14/21 21:00 10/15/21 21:44 Home Med Eszopiclone 3mg Tab (Lunesta) PO 11/13/21 20:59 1 each HS PRN Administration Insomnia Diltiazem HCl 100 mg in 100 mls @ 5 mls/hr 10/16/21 05:43 10/16/21 07:46 Cardizem 100 Mg/100 Ml IV CONT 5 mg/hr .Q20H NATHANIEL 5 mls/hr Administration 5 MG/HR Levothyroxine Sodium 50 mcg 10/14/21 06:30 10/16/21 06:52 Levothyroxine Sodium 50 Mcg Tablet PO Not Given DAILY@0630 [facility] Metoprolol Succinate 100 mg 10/14/21 09:00 10/16/21 09:29 Metoprolol Succinate Ext Rel 100 Mg Tabcr PO 100 mg QAM [facility] Administration Morphine Sulfate 2 mg 10/13/21 14:33 10/14/21 08:14 Morphine Sulfate (*Crx) 2 Mg/Ml Inj IV PUSH 2 mg Q2H PRN Administration Pain Rated 4-6 Ondansetron HCl 4 mg 10/13/21 14:33 Ondansetron Inj 4 Mg/2 Ml Vial IV PUSH Q4H PRN Nausea And Vomiting Ondansetron HCl 4 mg 10/16/21 05:43 Ondansetron Inj 4 Mg/2 Ml Vial IV PUSH Q4H PRN Nausea And Vomiting Oxybutynin Chloride 5 mg 10/13/21 17:00 10/16/21 09:29 Oxybutynin Chloride 5 Mg Tablet PO 5 mg BID [facility] Administration Oxycodone/Acetaminophen 1 tablet 10/15/21 07:53 Oxycodone/Acetaminophen (*Crx) 5-325 Mg Tablet PO Q4H PRN Pain Rated 4-6 Oxycodone/
[2021-10-16] MEDS: oxyCODONE/ACETAMINOPHEN (*CRX) 5-325 MG TABLET 1 TABLET PO ×2 (18:10→22:32)
[2021-10-16] MEDS: ONDANSETRON INJ 4 MG/2 ML VIAL IV PUSH (18:11)
[2021-10-17] VITALS (16 sets, daily range): BP systolic 95–125; BP diastolic 52–98; PULSE 54–88; RESP 12–18; TEMP 36.3–36.9; O2SAT 95–99
[2021-10-17] MEDS: dilTIAZem 100 MG/100 ML 100 MG/100 ML BAG IV CONT (02:40)
[2021-10-17 04:36] LABS: Basophils Percent Auto 0.4 % (0.2-1.2); Eosinophils Absolute Auto 0.3 K/mm3 (0-0.3); Hematocrit 31.3 % (37.0-47.0); Hemoglobin 10.7 g/dL (12.0-15.0); Immature Granulocyte Absolute 0.03 K/mm3 (0.00-0.031); Immature Granulocyte Percent A 0.4 % (0-0.5); Lymphocytes Absolute Auto 2.66 K/mm3 (0.9-3.2); Lymphocytes Percent Auto 32.4 % (18.3-44.2); Mean Corpuscular HGB Conc 34.2 g/dl (32-36); Mean Corpuscular Hemoglobin 30.2 pg (26-34); Mean Corpuscular Volume 88.4 fl (80-100); Monocytes Absolute Auto 0.7 K/mm3 (0.1-0.6); Monocytes Percent Auto 8.4 % (2.6-8.5); Neutrophils Absolute Auto 4.6 K/mm3 (1.3-6.7); Neutrophils Percent Auto 55.4 % (45.5-73.1); Platelet Count Result 355 k/mm3 (150-375); Red Blood Count 3.54 M/mm3 (4.2-5.4); Red Cell Distribution Width 13.3 % (11.5-14.5); White Blood Count 8.2 K/mm3 (4.5-10.0)
[2021-10-17 05:01] LABS: Alanine Aminotransferase 11 U/L (6-35); Albumin Level 3.3 g/dL (3.5-5.1); Alkaline Phosphatase 61 U/L (38-126); Anion Gap 1 mmol/L (8-16); Aspartate Amino Transferase 26 U/L (14-36); Bilirubin,Total 0.5 mg/dL (0.2-1.3); Blood Urea Nitrogen 12 mg/dL (7-17); Calcium 8.2 mg/dL (8.4-10.2); Carbon Dioxide 32 mmol/L (22-30); Chloride 97 mmol/L (98-107); Estimated CRCL calculation 51 ml/min; Estimated Glomerular Filt Rate > 60; Glucose 98 mg/dL (65-110); Potassium 3.9 mmol/L (3.4-5.0); Sodium 130 mmol/L (137-145)
[2021-10-17] MEDS: LEVOTHYROXINE SODIUM 50 MCG TABLET PO (05:49)
[2021-10-17] MEDS: ENOXAPARIN 60 MG/0.6 ML SYRINGE 56 MG SUB-Q (05:49)
--- NOTE | 2021-10-17 08:00 | PM.IMPN ---
Progress Note: A&P Assessment and Plan (1) Primary adenocarcinoma of ascending colon: Onset Date: 09/01/21 Code(s): C18.2 - Malignant neoplasm of ascending colon Status: Acute Assessment and Plan: Patient is postop day 4 Postop care per surgery Diet per surgery Pain medications and antiemetics on board Trend labs (2) New onset a-fib: Code(s): I48.91 - Unspecified atrial fibrillation Status: Acute Assessment and Plan: AFib with a heart rate in the 180s Cardizem drip stopped IV fluids given Patient converted to sinus rhythm, appears to be bradycardiac Echo shows an EF of >70% with an indeterminate diastolic dysfunction Continue Metoprolol 100mg Daily from home, increased to 125mg seems to be related to fluid deficient Lovenox and aspirin on board Patient will need to probably be started on anticoagulation orallysince Octaviano VAS score is 3 Transitioned to Xarelto Cardiology consulted thank you for your help Trend heart rate Tele monitor (3) Essential hypertension: Code(s): I10 - Essential (primary) hypertension Status: Acute Assessment and Plan: Blood pressure stable 92/52 Continue home metoprolol Hold amlodipine for now since patient is on Cardizem Trend blood pressure Adjust therapy as indicated Time Spent With Patient Time with patient: Greater than 35 minutes Subjective Date/time seen: 10/17/21 08:00 Interval history: 10/17/21 0800 Patient seems to be doing okay today. Patient states that she still has pain in her right side specially that she rates an 8/10 however she did state that she does get up to the commode. She denies any chest pain, shortness of breath, nausea, vomiting, diarrhea, constipation, weakness or fatigue. She did say that she was doing her IS. She denies wanting to eat. Education was given her about keeping her strength up and nutrition is something she has to work on. Heart rate is currently stable at 58 sinus Darren on the monitor. Patient probably move out of IMU after the Cardizem is turned off. 10/16/21 0900 Kaitlin Bond is a 71 year old female with a past medical history arthritis, chronic cough, hypertension, hyperlipidemia who had elective malignant neoplasm removal.? Patient is postop day 3 however last night she did have a moment of nausea vomiting with arrhythmia of AFib RVR.? Patient was transferred IMCU and started on a Cardizem drip.? Cardiology has been consulted.? Labs are stable at this time.? Patient was given half a L of fluids and a dose of IV metoprolol.? Patient is currently in sinus rhythm.? She did say that she is little nauseous when she eats something however it dissipates pretty quickly.? She did have bowel movement today and feels better today.? She denies any chest pain, shortness a breath, nausea, vomiting, diarrhea, constipation, weakness or fatigue.? She did state that she was having a little bit of palpitations.? She also stated that she was short of breath due to the fact that she can not breathe and deep due to the surgical procedure.? Explained to her that she will get her pneumonia.? Patient stated that she understood.? We consult on the patient for medical management this time. Review of Systems Review of Systems: All systems reviewed & are unremarkable except as noted in HPI and below Exam Const: General: cooperative, healthy appearing, no acute distress, well developed, alert and awake Nutritional Appearance: well nourished Orientation/consciousness: patient oriented x3 Limitations: no limitations HENMT: Head: normal to inspection Ears: hearing grossly normal bilaterally General nose exam: Normal external nose present Mouth: Yes Normal oral and palatal mucosa present, Yes lip normal and Yes tongue normal Teeth and gingiva: abnormal tooth and associated gingiva and poor dentition Eyes: General: appearance normal, both eyes and all related st
--- NOTE | 2021-10-17 08:24 | PM.PNGS ---
Progress Note: A&P Assessment and Plan (1) Primary adenocarcinoma of ascending colon: Onset Date: 09/01/21 Code(s): C18.2 - Malignant neoplasm of ascending colon Status: Acute Assessment and Plan: cont to encourage OOB/IS, encourage po intake, exam benign (2) New onset a-fib: Code(s): I48.91 - Unspecified atrial fibrillation Status: Acute Assessment and Plan: currently in sinus rhythm, appreciate medicine input Subjective Subjective Date/Time Seen: 10/17/21 08:24 feels better this am, ovidio diet although appetite poor Review of Systems Review of Systems: All systems reviewed & are unremarkable except as noted in HPI and below Exam Const: General: cooperative, comfortable and no acute distress Orientation/consciousness: patient oriented x3 Resp: Auscultation: clear to auscultation bilaterally Cardio: Rate: regular rate Rhythm: regular rhythm GI: Inspection: normal to inspection, non-distended and incision GI Palp: Yes abdominal tenderness, Yes Soft to palpation, Yes Tenderness to palpation present (GI), No Guarding due to palpation present (GI) and No Rigid due to palpation Objective Data Vital Signs Vital Signs: Vital Signs - 24 hr 10/16/21 09:29 10/16/21 09:30 10/16/21 09:36 Temperature Pulse Rate 159 H 147 H 148 H Respiratory Rate Blood Pressure 106/73 Pulse Oximetry Oxygen Delivery 10/16/21 10:52 10/16/21 12:00 10/16/21 10:00 Temperature 36.6 C Pulse Rate 98 129 H Respiratory Rate 16 Blood Pressure 116/83 125/72 Pulse Oximetry 95 Oxygen Delivery 10/16/21 14:01 10/16/21 12:00 10/16/21 14:00 Temperature Pulse Rate 84 94 Respiratory Rate Blood Pressure Pulse Oximetry 96 Oxygen Delivery Room Air 10/16/21 16:00 10/16/21 16:00 10/16/21 18:00 Temperature 37.1 C Pulse Rate 88 116 H 78 Respiratory Rate 20 Blood Pressure 131/61 Pulse Oximetry 97 Oxygen Delivery 10/16/21 20:00 10/16/21 20:00 10/16/21 20:00 Temperature 36.8 C Pulse Rate 69 69 80 Respiratory Rate 16 16 Blood Pressure 120/75 Pulse Oximetry 98 98 Oxygen Delivery Room Air 10/16/21 22:00 10/17/21 00:00 10/17/21 00:00 Temperature 36.8 C Pulse Rate 69 59 L 60 Respiratory Rate 18 Blood Pressure 95/57 L Pulse Oximetry 96 Oxygen Delivery 10/17/21 00:00 10/17/21 02:00 10/17/21 02:30 Temperature Pulse Rate 60 57 L Respiratory Rate 18 Blood Pressure Pulse Oximetry 96 95 Oxygen Delivery Room Air Room Air 10/17/21 02:40 10/17/21 04:00 10/17/21 04:00 Temperature 36.8 C Pulse Rate 64 57 L 57 L Respiratory Rate 12 12 Blood Pressure 95/57 L 96/52 L Pulse Oximetry 97 97 Oxygen Delivery Room Air 10/17/21 04:00 10/17/21 05:26 10/17/21 08:00 Temperature 36.3 C L Pulse Rate 54 L 58 L 59 L Respiratory Rate 18 Blood Pressure 120/76 Pulse Oximetry 98 Oxygen Delivery Intake/Output Intake/Output: Intake & Output 10/14/21 10/15/21 10/16/21 10/17/21 23:59 23:59 23:59 23:59 Intake Total 2910 1010 1380 300 Output Total 200 480 Balance 2910 810 900 300 Meds/Results Medications: Active Medications Generic Name Dose Route Start Last Admin Trade Name Freq PRN Reason Stop Dose Admin Amlodipine Besylate 10 mg 10/14/21 09:00 10/16/21 09:28 Amlodipine Besylate 5 Mg Tablet PO Not Given QAM [facility] Aspirin 81 mg 10/17/21 08:00 Aspirin 81 Mg Chewable Tablet PO DAILY@0800 [facility] Atorvastatin Calcium 20 mg 10/14/21 09:00 10/16/21 09:29 Atorvastatin 20 Mg Tablet PO 20 mg QAM [facility] Administration Enoxaparin Sodium 56 mg 10/16/21 06:00 10/17/21 05:49 Enoxaparin 60 Mg/0.6 Ml Syringe SUB-Q 56 mg Q12H [facility] Administration Home Med 1 each 10/14/21 21:00 10/16/21 22:32 Home Med Eszopiclone 3mg Tab (Lunesta) PO 11/13/21 20:59 1 each HS PRN Administration Insomnia Diltiazem HCl 100 mg in 100 mls @ 5 mls/hr
[2021-10-17] MEDS: ASPIRIN 81 MG CHEWABLE TABLET PO (08:50)
[2021-10-17] MEDS: PANTOPRAZOLE 40 MG TABLET PO ×2 (08:50→20:53)
[2021-10-17] MEDS: OXYBUTYNIN CHLORIDE 5 MG TABLET PO ×2 (08:51→16:08)
[2021-10-17] MEDS: ATORVASTATIN 20 MG TABLET PO (08:51)
[2021-10-17] MEDS: METOPROLOL SUCCINATE EXT REL 100 MG TABCR PO (09:01)
--- NOTE | 2021-10-17 09:44 | PM.CNCAR ---
Assessment and Plan Assessment and plan (1) New onset a-fib: Code(s): I48.91 - Unspecified atrial fibrillation Status: Acute Assessment and Plan: New diagnosis symptomatic atrial fibrillation with rapid ventricular response spontaneously converted to sinus rhythm diltiazem infusion and oral Toprol XL 100 mg daily. Discontinue diltiazem infusion. Increase Toprol XL to 125 mg daily. Given initial 25 mg p.o. x1 around noon today. Discontinue subcutaneous enoxaparin. Transition to Xarelto 20 mg at bedtime beginning this evening. CHADS2 Vasc score 3 (age>65, female, HTN). Systemic anticoagulation advised appropriate stroke risk reduction. Counseled patient on risks and benefits of systemic anticoagulation versus aspirin and accordance bleeding risks. Patient denies history of bleeding complication, frequent falls and otherwise appears to be a reasonable candidate for systemic anticoagulation. Counseled if fall/bleeding and or head injury go to ER immediately. Monitor bright red blood per rectum or melena or other signs of bleeding as an outpatient. Observe on telemetry overnight and if maintaining sinus rhythm she would be considered stable for discharge from cardiovascular perspective with disposition per surgical and medicine services. She will follow-up with Dr. Perez in the office within 1 month for ongoing care. Patient verbalized understanding of the above recommendation agree with plan of care. Risks, benefits, and alternatives to current medical therapy discussed at length. All questions answered to her satisfaction. Echocardiogram personally reviewed EF greater than 70% mild LVH no significant valvular heart disease, normal pulmonary pressures trivial TR no MR. Left atrial size normal. (2) Essential hypertension: Code(s): I10 - Essential (primary) hypertension Status: Acute Assessment and Plan: BP has been well controlled although marginal overnight on diltiazem. Diltiazem IV discontinued. Increase Toprol XL to 125 mg daily. May resume amlodipine perhaps reduce to 5 mg daily depending on BP. If recurrent atrial fibrillation may discontinue amlodipine in favor of diltiazem. (3) Colon cancer, ascending: Code(s): C18.2 - Malignant neoplasm of ascending colon Status: Acute Assessment and Plan: Per surgical service. Status post hemicolectomy. Postoperative management per their recommendations. (4) Hypothyroidism (acquired): Code(s): E03.9 - Hypothyroidism, unspecified Status: Acute Assessment and Plan: Check TSH. Management per primary service. History of Present Illness History of Present Illness Consult date/time: Date of service: 10/17/21 09:44 Cardiology consultation at the request of Roderick Campos APN of the [facility] service for opinion regarding atrial fibrillation with rapid ventricular response. Requesting physician: Roderick Campos APN-C Reason For Visit: ascending colon CA Narrative: Patient is a pleasant 71-year-old female with a past medical history significant for hypertension, hyperlipidemia, chronic shortness of breath, recently diagnosed colon mass on colonoscopy biopsy-proven colonic adenocarcinoma which she presented for laparoscopic right hemicolectomy which she underwent October 13, 2021. She did well postoperatively and had been in sinus rhythm until morning of October 16 she states she felt very nauseous and had enlargement of biliary emesis and was subsequently noted to be in atrial fibrillation with rapid ventricle response with heart rates in the 160s to 170s. She was aware of this stating she had rapid palpitations and some shortness of breath but no chest pain. She has been receiving Toprol XL 100 mg daily which is her home medication, started on diltiazem infusion at 5 milligrams/hour. Patient then converted back to sinus rhythm around 10:12 a.m. yesterday morning and has maintained this subsequent. She has no p
--- NOTE | 2021-10-17 09:53 | PC.NURSE ---
Spoke with Dr. Viveros regarding anti-coagulation on patient for AFIB. Dr. Viveros said it is ok to start anti-coagulation and to notify Dr. Bates.
--- NOTE | 2021-10-17 10:13 | PC.NURSE ---
Stopped Cardizem drip at 10:[address] Bates order. Patient in Normal Sinus Rhythm since 10:12 10/16/2021.
--- NOTE | 2021-10-17 13:14 | PC.NURSE ---
This patient, Kaitlin Bond, was transferred to [[id number] ] on 10/17/21 at 1325 . Personal belongings sent with patient. Report given to [Glory FORD ]. Appropriate documentation sent with patient.
--- NOTE | 2021-10-17 13:35 | PC.NURSE ---
Patient transfer received from IMU to room 259. Patient oriented to the room.
[2021-10-17] MEDS: oxyCODONE/ACETAMINOPHEN (*CRX) 5-325 MG TABLET 1 TABLET PO (20:58)
[2021-10-18] VITALS (15 sets, daily range): BP systolic 107–121; BP diastolic 63–75; PULSE 70–92; RESP 16–18; TEMP 36.4–37.1; O2SAT 95–99
[2021-10-18 05:15] LABS: Basophils Percent Auto 0.3 % (0.2-1.2); Eosinophils Absolute Auto 0.3 K/mm3 (0-0.3); Eosinophils Percent Auto 3.6 % (0-4.4); Hematocrit 30.6 % (37.0-47.0); Immature Granulocyte Absolute 0.04 K/mm3 (0.00-0.031); Immature Granulocyte Percent A 0.6 % (0-0.5); Lymphocytes Absolute Auto 2.03 K/mm3 (0.9-3.2); Lymphocytes Percent Auto 29.5 % (18.3-44.2); Mean Corpuscular HGB Conc 32.7 g/dl (32-36); Mean Corpuscular Hemoglobin 29.7 pg (26-34); Mean Corpuscular Volume 90.8 fl (80-100); Mean Platelet Volume 8.9 fl (7.4-10.4); Monocytes Absolute Auto 0.6 K/mm3 (0.1-0.6); Neutrophils Absolute Auto 3.9 K/mm3 (1.3-6.7); Platelet Count Result 340 k/mm3 (150-375); Red Blood Count 3.37 M/mm3 (4.2-5.4); Red Cell Distribution Width 13.3 % (11.5-14.5); White Blood Count 6.9 K/mm3 (4.5-10.0)
[2021-10-18 05:31] LABS: Alanine Aminotransferase 13 U/L (6-35); Albumin Level 3.2 g/dL (3.5-5.1); Alkaline Phosphatase 59 U/L (38-126); Anion Gap 2 mmol/L (8-16); Aspartate Amino Transferase 22 U/L (14-36); Bilirubin,Total 0.3 mg/dL (0.2-1.3); Blood Urea Nitrogen 13 mg/dL (7-17); Calcium 8.2 mg/dL (8.4-10.2); Carbon Dioxide 31 mmol/L (22-30); Chloride 99 mmol/L (98-107); Estimated CRCL calculation 51 ml/min; Estimated Glomerular Filt Rate > 60; Glucose 103 mg/dL (65-110); Potassium 3.6 mmol/L (3.4-5.0); Sodium 132 mmol/L (137-145)
[2021-10-18] MEDS: LEVOTHYROXINE SODIUM 50 MCG TABLET PO (07:02)
[2021-10-18] MEDS: PANTOPRAZOLE 40 MG TABLET PO ×2 (08:12→20:12)
[2021-10-18] MEDS: METOPROLOL SUCCINATE EXT REL 100 MG TABCR PO (08:12)
[2021-10-18] MEDS: ATORVASTATIN 20 MG TABLET PO (08:12)
[2021-10-18] MEDS: OXYBUTYNIN CHLORIDE 5 MG TABLET PO ×2 (08:12→16:47)
[2021-10-18] MEDS: oxyCODONE/ACETAMINOPHEN (*CRX) 5-325 MG TABLET 1 TABLET PO (08:20)
--- NOTE | 2021-10-18 08:46 | PM.PNCARD ---
Progress Note: A&P Assessment and Plan (1) New onset a-fib: Onset Date: 10/16/21 <ZULLY Ontiveros - Last Filed: 10/18/21 11:35> Code(s): I48.91 - Unspecified atrial fibrillation <ZULLY Ontiveros - Last Filed: 10/18/21 11:35> Status: Acute <ZULLY Ontiveros - Last Filed: 10/18/21 11:35> Assessment and Plan: New diagnosis symptomatic atrial fibrillation with rapid ventricular response spontaneously converted to sinus rhythm. Remains in sinus rhythm this morning, no recurrence of atrial fibrillation on telemetry. Continue Toprol XL 125mg daily. CHADS2 Vasc score 3 (age>65, female, HTN). Systemic anticoagulation with Xarelto 20mg daily. Outpatient follow up in our office in 2-3 weeks <ZULLY Ontiveros - Last Filed: 10/18/21 11:35> (2) Essential hypertension: Code(s): I10 - Essential (primary) hypertension <ZULLY Ontiveros - Last Filed: 10/18/21 11:35> Status: Acute <ZULLY Ontiveros - Last Filed: 10/18/21 11:35> Assessment and Plan: At goal <ZULLY Ontiveros - Last Filed: 10/18/21 11:35> (3) Colon cancer, ascending: Code(s): C18.2 - Malignant neoplasm of ascending colon <ZULLY Ontiveros - Last Filed: 10/18/21 11:35> Status: Acute <ZULLY Ontiveros - Last Filed: 10/18/21 11:35> Assessment and Plan: Per surgical service. Status post hemicolectomy. Postoperative management per their recommendations. <ZULLY Ontiveros - Last Filed: 10/18/21 11:35> (4) Hypothyroidism (acquired): Code(s): E03.9 - Hypothyroidism, unspecified <ZULLY Ontiveros - Last Filed: 10/18/21 11:35> Status: Acute <ZULLY Ontiveros - Last Filed: 10/18/21 11:35> Assessment and Plan: TSH WNL <ZULLY Ontiveros - Last Filed: 10/18/21 11:35> Additional Plan Attending Addendum: I have personally seen and examined this patient at bedside. I agree with the above documentation and plan of care as outlined. -patient states that she feels fairly well overall. Pain is under control. No new issues overnight. No palpitations or recurrent AFib on telemetry. Tolerating medications. She will remain hospitalized until she has a bowel movement. Exam: NAD, A&Ox3, nonfocal neuro exam No JVD Lungs CTA bilaterally Cardio RRR, S1/S2 Abd soft, NT/ND, +BS Ext no edema, clubbing, or cyanosis Plan of Care: Continue Toprol XL 125 mg daily and Xarelto 20 mg at bedtime. Maintaining sinus rhythm. Follow-up as an outpatient in the next 4 weeks. May discontinue telemetry. Will sign off for now. Please do not hesitate to contact us with any additional questions or concerns. We will see her in the office as an outpatient. <Bobo Perez MD - Last Filed: 10/18/21 13:23> Subjective Date/time seen: 10/18/21 08:46 Cardiology follow up for atrial fibrillation <ZULLY Ontiveros - Last Filed: 10/18/21 11:35> Interval history: Feeling well this morning, some mild discomfort in RLQ with certain movements. Denies any palpitations, shortness of breath. No chest pain. Feeling well overall and eager to go home. <ZULLY Ontiveros - Last Filed: 10/18/21 11:35> Review of Systems Review of Systems: All systems reviewed & are unremarkable except as noted in HPI and below <ZULLY Ontiveros - Last Filed: 10/18/21 11:35> Constitutional: Constitutional: Reports as per HPI and Reports no additional constitutional complaints <ZULLY Ontiveros - Last Filed: 10/18/21 11:35> Eyes: Eyes: Reports as per HPI and Reports no additional eye complaints <ZULLY Ontiveros - Last Filed: 10/18/21 11:35> ENT: Reports system reviewed and no additional complaints, except as documented and Reports as per HPI <ZULLY Ontiveros - Last Filed: 10/18/21 11:35> Cardiovascular: Cardiovascular: Reports as per HPI and Reports no additional cardiovascular complaint
[2021-10-18] MEDS: METOPROLOL SUCCINATE EXT REL 25 MG TABCR PO (08:57)
--- NOTE | 2021-10-18 09:15 | PM.IMPN ---
Progress Note: A&P Assessment and Plan (1) Primary adenocarcinoma of ascending colon: Onset Date: 09/01/21 Code(s): C18.2 - Malignant neoplasm of ascending colon Status: Acute Assessment and Plan: Patient is postop day 5 Postop care per surgery Diet per surgery Pain medications and antiemetics on board Trend labs (2) New onset a-fib: Onset Date: 10/16/21 Code(s): I48.91 - Unspecified atrial fibrillation Status: Acute Assessment and Plan: AFib with a heart rate in the 180s remains sinus dereck Echo shows an EF of >70% with an indeterminate diastolic dysfunction Continue Metoprolol 100mg Daily from home, increased to 125mg seems to be related to fluid deficient Octaviano VAS score is 3 Transitioned to Xarelto Cardiology consulted thank you for your help Trend heart rate Tele monitor (3) Essential hypertension: Code(s): I10 - Essential (primary) hypertension Status: Acute Assessment and Plan: Blood pressure stable 107/68 Continue home metoprolol Trend blood pressure Adjust therapy as indicated Subjective Date/time seen: 10/18/21 09:15 Interval history: 10/18/21 0915 Patient was lying in bed. Patient stated that she has been doing okay. She denies any chest pain, palpitations, nausea, vomiting, diarrhea, constipation, weakness or fatigue. Patient did state she was still having right-sided pain at 5/10. She also stated that she has not had a bowel movement yet but is doing well. Heart rate is controlled. Continue to monitor. 10/17/21 0800 Patient seems to be doing okay today. Patient states that she still has pain in her right side specially that she rates an 8/10 however she did state that she does get up to the commode. She denies any chest pain, shortness of breath, nausea, vomiting, diarrhea, constipation, weakness or fatigue. She did say that she was doing her IS. She denies wanting to eat. Education was given her about keeping her strength up and nutrition is something she has to work on. Heart rate is currently stable at 58 sinus Dereck on the monitor. Patient probably move out of IMU after the Cardizem is turned off. 10/16/21 0900 Kaitlin Bond is a 71 year old female with a past medical history arthritis, chronic cough, hypertension, hyperlipidemia who had elective malignant neoplasm removal.? Patient is postop day 3 however last night she did have a moment of nausea vomiting with arrhythmia of AFib RVR.? Patient was transferred IM and started on a Cardizem drip.? Cardiology has been consulted.? Labs are stable at this time.? Patient was given half a L of fluids and a dose of IV metoprolol.? Patient is currently in sinus rhythm.? She did say that she is little nauseous when she eats something however it dissipates pretty quickly.? She did have bowel movement today and feels better today.? She denies any chest pain, shortness a breath, nausea, vomiting, diarrhea, constipation, weakness or fatigue.? She did state that she was having a little bit of palpitations.? She also stated that she was short of breath due to the fact that she can not breathe and deep due to the surgical procedure.? Explained to her that she will get her pneumonia.? Patient stated that she understood.? We consult on the patient for medical management this time. Review of Systems Review of Systems: All systems reviewed & are unremarkable except as noted in HPI and below Exam Const: General: cooperative, healthy appearing, no acute distress, well developed, alert and awake Nutritional Appearance: well nourished Orientation/consciousness: patient oriented x3 Limitations: no limitations HENMT: Head: normal to inspection Ears: hearing grossly normal bilaterally General nose exam: Normal external nose present Mouth: Yes Normal oral and palatal mucosa present, Yes lip normal and Yes tongue normal Teeth and gingiva: abnormal too
[2021-10-18] MEDS: polyethylene glycoL 3350 17 GM POWD.PACK PO (11:18)
--- NOTE | 2021-10-18 11:38 | PM.PNGS ---
Progress Note: A&P Assessment and Plan (1) Primary adenocarcinoma of ascending colon: Onset Date: 09/01/21 Code(s): C18.2 - Malignant neoplasm of ascending colon Status: Acute Assessment and Plan: Continues to slowly improve. Tolerating low fiber diet, but still with poor appetite. Encouraged PO intake. Will stimulate bowels, add Miralax. Encouraged to increase activity, PT/OT following. Pathology pending when I spoke with the patient, but Dr. Black went by and discussed pathology with the patient later this morning. (2) New onset a-fib: Onset Date: 10/16/21 Code(s): I48.91 - Unspecified atrial fibrillation Status: Acute Assessment and Plan: Continue telemetry, currently in sinus rhythm. Cardiology following. Patient started on Xarelto. Additional Plan I have discussed the patient's case and plan of care with Dr. Black. Subjective Subjective Date/Time Seen: 10/18/21 11:38 Post Op day: 5 Patient reports: feels better, flatus and afebrile Interval history: Patient seen and examined. Chart reviewed. She had vomiting on Monday, but reports her nausea has improved and no more vomiting. She is feeling better today. Pain controlled with the Percocet. She reports flatus, but denies having any BMs since POD1. No other complaints at this time. Review of Systems Review of Systems: All systems reviewed & are unremarkable except as noted in HPI and below Exam Const: General: comfortable and no acute distress Orientation/consciousness: patient oriented x3 Resp: Effort & Inspection: normal respiratory effort Auscultation: clear to auscultation bilaterally Cardio: Rate: regular rate Rhythm: regular rhythm GI: Inspection: non-distended and incision (incisions dry and healing well, no signs of infection) GI Palp: Yes Soft to palpation, Yes Tenderness to palpation present (GI) (incisional) and No Guarding due to palpation present (GI) Auscultation: Hypoactive bowel sounds present Neuro: General: moves all extremities and no focal motor deficits Extrem: General: no calf tenderness and no edema Psych: Insight: Good insight present (Psych) Judgement: Good judgement present (Psych) Objective Data Vital Signs Vital Signs: Vital Signs - 24 hr 10/17/21 12:00 10/17/21 12:00 10/17/21 12:00 Temperature 97.5 F L Pulse Rate 66 68 Respiratory Rate 16 Blood Pressure 125/98 H Pulse Oximetry 98 97 Oxygen Delivery Room Air 10/17/21 14:00 10/17/21 16:04 10/17/21 19:44 Temperature 98 F Pulse Rate 65 80 Respiratory Rate 15 Blood Pressure 114/73 Pulse Oximetry 99 Oxygen Delivery Room Air 10/17/21 21:29 10/17/21 20:00 10/17/21 20:00 Temperature 98.5 F Pulse Rate 86 88 Respiratory Rate 18 Blood Pressure 113/78 Pulse Oximetry 98 97 Oxygen Delivery Room Air 10/18/21 00:00 10/18/21 00:30 10/18/21 04:00 Temperature 98.1 F Pulse Rate 75 73 70 Respiratory Rate 18 Blood Pressure 107/63 Pulse Oximetry 95 Oxygen Delivery 10/18/21 04:40 10/18/21 08:12 10/18/21 08:57 Temperature 97.5 F L Pulse Rate 92 88 91 Respiratory Rate 18 Blood Pressure 111/73 Pulse Oximetry 95 Oxygen Delivery 10/18/21 10:00 10/18/21 10:10 Temperature 98.7 F Pulse Rate 85 Respiratory Rate 16 Blood Pressure 107/68 Pulse Oximetry 97 Oxygen Delivery Room Air Intake/Output Intake/Output: Intake & Output 10/15/21 10/16/21 10/17/21 10/18/21 23:59 23:59 23:59 23:59 Intake Total 1010 1380 1455 360 Output Total 200 480 600 Balance 810 900 855 360 Meds/Results Medications: Active Medications Generic Name Dose Route Start Last Admin Trade Name Freq PRN Reason Stop Dose Admin Amlodipine Besylate 10 mg 10/14/21 09:00 10/16/21 09:28 Amlodipine Besylate 5 Mg Tablet PO [facility] Atorvastatin Calcium 20 mg 10/14/21 09:00 10/18/21 08:12 Atorvastatin 20 Mg Tablet PO 20 mg QAM [facility]
[2021-10-18] MEDS: BISACODYL 10 MG SUPPOSITORY RECTAL (12:19)
[2021-10-18] MEDS: RIVAROXABAN 20 MG TABLET PO (16:47)
[2021-10-19] VITALS (8 sets, daily range): BP systolic 121–134; BP diastolic 75–84; PULSE 64–89; RESP 16–20; TEMP 36.4–37.1; O2SAT 95–100
[2021-10-19] MEDS: LEVOTHYROXINE SODIUM 50 MCG TABLET PO (04:57)
[2021-10-19] MEDS: oxyCODONE/ACETAMINOPHEN (*CRX) 5-325 MG TABLET 1 TABLET PO (04:57)
[2021-10-19 05:08] LABS: Basophils Percent Auto 0.4 % (0.2-1.2); Eosinophils Absolute Auto 0.3 K/mm3 (0-0.3); Hematocrit 30.9 % (37.0-47.0); Hemoglobin 10.1 g/dL (12.0-15.0); Immature Granulocyte Absolute 0.04 K/mm3 (0.00-0.031); Immature Granulocyte Percent A 0.6 % (0-0.5); Lymphocytes Absolute Auto 1.77 K/mm3 (0.9-3.2); Lymphocytes Percent Auto 26.3 % (18.3-44.2); Mean Corpuscular HGB Conc 32.7 g/dl (32-36); Mean Corpuscular Hemoglobin 29.8 pg (26-34); Mean Corpuscular Volume 91.2 fl (80-100); Mean Platelet Volume 8.9 fl (7.4-10.4); Monocytes Absolute Auto 0.5 K/mm3 (0.1-0.6); Monocytes Percent Auto 7.9 % (2.6-8.5); Neutrophils Absolute Auto 4.1 K/mm3 (1.3-6.7); Neutrophils Percent Auto 60.8 % (45.5-73.1); Platelet Count Result 341 k/mm3 (150-375); Red Blood Count 3.39 M/mm3 (4.2-5.4); Red Cell Distribution Width 13.6 % (11.5-14.5); White Blood Count 6.7 K/mm3 (4.5-10.0)
[2021-10-19 05:21] LABS: Alanine Aminotransferase 21 U/L (6-35); Albumin Level 3.4 g/dL (3.5-5.1); Alkaline Phosphatase 62 U/L (38-126); Anion Gap 4 mmol/L (8-16); Aspartate Amino Transferase 33 U/L (14-36); Bilirubin,Total 0.1 mg/dL (0.2-1.3); Blood Urea Nitrogen 11 mg/dL (7-17); Calcium 8.3 mg/dL (8.4-10.2); Carbon Dioxide 28 mmol/L (22-30); Chloride 101 mmol/L (98-107); Estimated CRCL calculation 59 ml/min; Estimated Glomerular Filt Rate > 60; Glucose 99 mg/dL (65-110); Potassium 3.9 mmol/L (3.4-5.0); Sodium 133 mmol/L (137-145)
--- NOTE | 2021-10-19 08:45 | PM.IMPN ---
Progress Note: A&P Assessment and Plan (1) Primary adenocarcinoma of ascending colon: Onset Date: 09/01/21 Code(s): C18.2 - Malignant neoplasm of ascending colon Status: Acute Assessment and Plan: Patient is postop day 7 Postop care per surgery Diet per surgery Pain medications and antiemetics on board Trend labs (2) New onset a-fib: Onset Date: 10/16/21 Code(s): I48.91 - Unspecified atrial fibrillation Status: Acute Assessment and Plan: AFib with a heart rate in the 180s remains sinus dereck Echo shows an EF of >70% with an indeterminate diastolic dysfunction Continue Metoprolol 100mg Daily from home, increased to 125mg seems to be related to fluid deficient Octaviano VAS score is 3 Transitioned to Xarelto Cardiology consulted thank you for your help Trend heart rate Tele monitor (3) Essential hypertension: Code(s): I10 - Essential (primary) hypertension Status: Acute Assessment and Plan: Blood pressure stable 129/84 Continue home metoprolol Trend blood pressure Adjust therapy as indicated Time Spent With Patient Time with patient: Greater than 35 minutes Subjective Date/time seen: 10/19/21844 Interval history: 10/19/21844 Patient seems to be doing better today. She stated that she does have a little bit of pain which she rates a 4-5/10 and states that her pain is in her right side. She also said that she has not had a bowel movement been constipated and has been eating however she also stated that she does not feel like that she keep her here at the hospital and she would like to go home. She denies any palpitations, chest pain, shortness breast, nausea, vomiting, diarrhea. At this time from my stand point patient is stable for discharge. 10/18/21 0915 Patient was lying in bed. Patient stated that she has been doing okay. She denies any chest pain, palpitations, nausea, vomiting, diarrhea, constipation, weakness or fatigue. Patient did state she was still having right-sided pain at 5/10. She also stated that she has not had a bowel movement yet but is doing well. Heart rate is controlled. Continue to monitor. 10/17/21 0800 Patient seems to be doing okay today. Patient states that she still has pain in her right side specially that she rates an 8/10 however she did state that she does get up to the commode. She denies any chest pain, shortness of breath, nausea, vomiting, diarrhea, constipation, weakness or fatigue. She did say that she was doing her IS. She denies wanting to eat. Education was given her about keeping her strength up and nutrition is something she has to work on. Heart rate is currently stable at 58 sinus Dereck on the monitor. Patient probably move out of IMU after the Cardizem is turned off. 10/16/21 0900 Kaitlin Bond is a 71 year old female with a past medical history arthritis, chronic cough, hypertension, hyperlipidemia who had elective malignant neoplasm removal.? Patient is postop day 3 however last night she did have a moment of nausea vomiting with arrhythmia of AFib RVR.? Patient was transferred IM and started on a Cardizem drip.? Cardiology has been consulted.? Labs are stable at this time.? Patient was given half a L of fluids and a dose of IV metoprolol.? Patient is currently in sinus rhythm.? She did say that she is little nauseous when she eats something however it dissipates pretty quickly.? She did have bowel movement today and feels better today.? She denies any chest pain, shortness a breath, nausea, vomiting, diarrhea, constipation, weakness or fatigue.? She did state that she was having a little bit of palpitations.? She also stated that she was short of breath due to the fact that she can not breathe and deep due to the surgical procedure.? Explained to her that she will get her pneumonia.? Patient stated that she understood.? We consult on the patient fo
[2021-10-19] MEDS: METOPROLOL SUCCINATE EXT REL 100 MG TABCR PO (09:36)
[2021-10-19] MEDS: ATORVASTATIN 20 MG TABLET PO (09:36)
[2021-10-19] MEDS: PANTOPRAZOLE 40 MG TABLET PO (09:37)
[2021-10-19] MEDS: METOPROLOL SUCCINATE EXT REL 25 MG TABCR PO (09:37)
[2021-10-19] MEDS: OXYBUTYNIN CHLORIDE 5 MG TABLET PO (09:37)
[2021-10-19] MEDS: polyethylene glycoL 3350 17 GM POWD.PACK PO (09:38)
--- NOTE | 2021-10-19 11:03 | PCOTNOTE ---
Attempted to see patient this AM, patient declined all ADLs or out of bed activity. Patient requested therapist attempt to see her later. Will continue OT per plan of care.
--- NOTE | 2021-10-19 11:32 | PCNFU ---
Nutrition Follow-Up Complete: Inadequate oral intake related to decreased appetite as evidenced by reduction of self reported usual body weight of 128lbs to 118lbs. Goal: Increased oral intake of 75% or more of meals with Ensure Surgery (330kcal, 8gm pro each) BID. - Pt is not meeting goal, but is progressing towards goal. Continue with current goal Pt current nutrition is Low fiber low residue. Last recorded weight is 54.8 kg, an increase of .9kg from weight recorded on 10/14. Bowel Motility: last BM was reported on 10/14. Pt is taking miralax. Labs Reviewed: Hgb 10.1, Hct 30.9, Alb 3.4, K 133, Cr .60 Meds Noted: Zofran, Miralax Skin: abdominal incisions Additional Notes: Pt is eating 50% of meals, a 50% increase from previous visit. Pt is also still drinking her Ensure Surg supplement BID. Pt reports her appetite is good and has improved from previous visit. Monitor changes in wt, oral intake % of meals and Ensure Surgery (330kcal, 8gm pro each) BID, and labs. Monitor every 5 days.
--- NOTE | 2021-10-19 11:48 | PCNSR ---
On 10/19/21, the student, Jason Ayoub, provided care and completed [facility] documentation on this patient. I have reviewed the student's documentation and agree with the findings.
--- NOTE | 2021-10-19 14:27 | PM.DS ---
DS: Admitting Diagnosis Discharge Date 10/19/21 Admitting Diagnosis Ascending colon cancer, hypertension DS: Discharge Diagnosis Discharge Diagnosis (1) Primary adenocarcinoma of ascending colon: Onset Date: 09/01/21 Code(s): C18.2 - Malignant neoplasm of ascending colon Status: Acute (2) New onset a-fib: Onset Date: 10/16/21 Code(s): I48.91 - Unspecified atrial fibrillation Status: Acute (3) Essential hypertension: Code(s): I10 - Essential (primary) hypertension Status: Acute (4) Hypothyroidism (acquired): Code(s): E03.9 - Hypothyroidism, unspecified Status: Acute DS: Summary Hospital Course Reason for hospitalization: Ascending colon cancer Hospital Course: This is a 71-year-old woman who was recently diagnosed with ascending colon cancer on colonoscopy performed on 09/01/[address]donez[address] Pre[address] abdomen /pelvis was negative for metastases and preop CEA level was 1.7. She presented on 10/14/2019 to for hand assisted laparoscopic right hemicolectomy. Surgery was uncomplicated and she was admitted to the hospital postoperatively for recovery. She was started on clear liquid diet and on postop day 1 she was advanced to full liquids. She did have a couple small liquid bowel movements on postop day 1. She was having some difficulty with pain control and was transitioned to oral Percocet as needed for pain. On postop day 2 she was advanced to a soft regular diet. On postop day 3 she was noted to become tachycardic and was found to be in AFib. She also had an episode of emesis. Cardiology and hospitalist was consulted for further medical management. She did eventually convert back to sinus rhythm. Anticoagulation was recommended by Cardiology once surgically stable. Due to the emesis, she was backed off to clear liquid diet. She was tolerating the clear liquids and felt better after the 1 episode of emesis. She was passing flatus and diet was able to be gradually advanced back to regular diet over the next several days. Her pathology came back as T2 N0 adenocarcinoma. Her metoprolol was increased to 125 mg daily and she was started on Xarelto. She was tolerating her diet and remaining hemodynamically stable. She had not had a bowel movement for several days, but denied any bloating or nausea and a was still passing flatus. She was on MiraLax daily and was instructed to increase to twice daily as needed to help prevent constipation. She was discharged on 10/19/2021. Status at Discharge Functional status at discharge: uses cane/walker Overall status at discharge: patient is progressing back to baseline Time Spent with Patient Time attestation: Total time spent providing and/or coordinating discharge services: Time spent: Less than 30 minutes Exam Const: General: comfortable and no acute distress Orientation/consciousness: patient oriented x3 Resp: Effort & Inspection: normal respiratory effort Auscultation: clear to auscultation bilaterally Cardio: Rate: regular rate Rhythm: regular rhythm Heart sounds: S1 normal heart sound present and S2 normal heart sound present GI: Inspection: non-distended and incision (Intact with glue) GI Palp: Yes Soft to palpation, Yes Tenderness to palpation present (GI) (Incisional), No Guarding due to palpation present (GI) and No Rebound tenderness present Auscultation: normal bowel sounds DS: Data Data Completed and Pending Completed studies during hospitalization: Final Diagnosis RIGHT COLON, HEMICOLECTOMY: INVASIVE MODERATELY DIFFERENTIATED ADENOCARCINOMA (SEE SYNOPTIC SUMMARY ).? LYMPH NODES (43): NEGATIVE FOR CARCINOMA. ? APPENDIX: NO SIGNIFICANT HISTOPATHOLOGIC CHANGES. SURGICAL PATHOLOGY CANCER CASE SUMMARY COLON AND RECTUM:? RESECTION Procedure: right hemicolectomy. Tumor site: right colon. Tumor size: 2.8 x 2.5 x 0.5 cm. Macroscopic tumor perforation: not seen. Histologic type
== END 2021-10-19 15:05 | disposition home or self-care (01) | DRG 331 ==
LOC: ANH2MED 14:35 → ANHIMU 10-16 06:50 → ANH2MED 10-17 13:34
PROVIDERS: Internal Medicine Cardiovascular Disease; Nurse Practitioner; Nurse Practitioner Family; Admitting Provider Surgery; PCP Family Medicine; Visit Provider Surgery
PROC: 0DTF4ZZ Resection of Right Large Intestine, Percutaneous Endoscopic Approach (ICD-10-PCS; CPT 44204; principal; 2021-10-13 12:00)
DX: C18.2 Malignant neoplasm of ascending colon (principal); I10 Essential (primary) hypertension; I48.91 Unspecified atrial fibrillation; E03.9 Hypothyroidism, unspecified; G62.9 Polyneuropathy, unspecified; M19.90 Unspecified osteoarthritis, unspecified site; K21.9 Gastro-esophageal reflux disease without esophagitis; E78.2 Mixed hyperlipidemia; E55.9 Vitamin D deficiency, unspecified; K44.9 Diaphragmatic hernia without obstruction or gangrene; Z98.1 Arthrodesis status; Z87.891 Personal history of nicotine dependence
CPT/HCPCS: 36415; 70450; 71045; 74018; 80048; 80053; 83735; 84443; 85025; 88309; 93005; 93306; 97110; 97116; 97161; 97165; 97530; 97535; A9270; C9290; J0690; J1100; J1170; J1650; J1885; J2270; J2405; J2704; J2710; J7030; J7120

== ENCOUNTER 2021-10-22 12:10 | Outpatient (CLI) | payer MEDICARE, SELFPAY ==
--- NOTE | ~2021-10-22 | XR_ITS ---
EXAMINATION: XR abdomen obstructive series DATE: 10/22/2021 12:41 INDICATION: Abdominal pain. Malignant neoplasm of ascending colon. TECHNIQUE: Upright and supine views of the abdomen on 3 radiographs were obtained. COMPARISON: CT abdomen and pelvis 09/08/2021 FINDINGS: There is a staple line in right abdomen, likely from right hemicolectomy. The transverse co adan is distended. Liquid stool in the colon suggest diarrhea. No free intraperitoneal gas. There are changes of anterior and posterior fusion procedures in lumbosacral spine. There are changes of verteb roplasty in L1. IMPRESSION: 1. Distention of the transverse colon, likely adynamic ileus. Reviewed, dictated and finalized at location A.
[2021-10-22 13:05] LABS: Basophils Percent Auto 0.2 % (0.2-1.2); Eosinophils Absolute Auto 0.1 K/mm3 (0-0.3); Eosinophils Percent Auto 0.7 % (0-4.4); Hemoglobin 12.2 g/dL (12.0-15.0); Immature Granulocyte Absolute 0.03 K/mm3 (0.00-0.031); Immature Granulocyte Percent A 0.3 % (0-0.5); Lymphocytes Absolute Auto 1.54 K/mm3 (0.9-3.2); Lymphocytes Percent Auto 16.7 % (18.3-44.2); Mean Corpuscular HGB Conc 33.9 g/dl (32-36); Mean Corpuscular Volume 88.7 fl (80-100); Mean Platelet Volume 8.8 fl (7.4-10.4); Monocytes Absolute Auto 0.7 K/mm3 (0.1-0.6); Monocytes Percent Auto 7.5 % (2.6-8.5); Neutrophils Absolute Auto 6.9 K/mm3 (1.3-6.7); Neutrophils Percent Auto 74.6 % (45.5-73.1); Platelet Count Result 481 k/mm3 (150-375); Red Blood Count 4.06 M/mm3 (4.2-5.4); Red Cell Distribution Width 13.7 % (11.5-14.5); White Blood Count 9.2 K/mm3 (4.5-10.0)
[2021-10-22 13:30] LABS: Anion Gap 7 mmol/L (8-16); Blood Urea Nitrogen 16 mg/dL (7-17); Calcium 8.8 mg/dL (8.4-10.2); Carbon Dioxide 32 mmol/L (22-30); Chloride 96 mmol/L (98-107); Estimated Glomerular Filt Rate > 60; Glucose 124 mg/dL (65-110); Potassium 3.8 mmol/L (3.4-5.0); Sodium 135 mmol/L (137-145)
== END 2021-10-22 12:11 | disposition home or self-care (01) ==
PROVIDERS: PCP Family Medicine; Visit Provider Surgery
DX: C18.2 Malignant neoplasm of ascending colon (principal)
CPT/HCPCS: 36415; 74019; 80048; 85025

== ENCOUNTER 2021-10-22 16:35 | Observation (INO) | payer MEDICARE, SELFPAY ==
--- NOTE | ~2021-10-22 | XR_ITS ---
EXAMINATION: XR chest 2V DATE: 10/22/2021 15:55 INDICATION: Shortness of breath TECHNIQUE: PA and lateral views of the chest were obtained. COMPARISON: Chest radiograph dated 10/16/21 FINDINGS: Chronic mild elevation of the left hemidiaphragm. A few bilateral small calcified pulmonary nodules a long with calcified bilateral hilar lymph nodes consistent with old granulomatous disease. No other a irspace opacities, pulmonary edema, pleural effusion or pneumothorax. The cardiomediastinal silhouett e is normal. L1 burst fracture with change of prior vertebroplasty. Additional chronic mild T7 compre ssion fracture. IMPRESSION: 1. Chronic mild elevation of the left hemidiaphragm. No acute cardiopulmonary disease. Reviewed, dictated and finalized at location B. IMPRESSION: 1. Chronic mild elevation of the left hemidiaphragm. No acute cardiopulmonary d isease.
--- NOTE | ~2021-10-22 | XR_ITS ---
EXAMINATION: XR abdomen/kub 1V INDICATION: Ileus TECHNIQUE: Supine view of the abdomen is obtained. COMPARISON: 10/22/2021 FINDINGS: There is mild persistent distention of the transverse colon without significant change. No free intracranial gas is identified. A staple line is noted in the right mid abdomen. There are chavez es of anterior and posterior fusion procedures of the lumbosacral spine. Vertebroplasty change is not ed at L1. IMPRESSION: 1. Persistent distention of the transverse colon, likely adynamic ileus. Reviewed, dictated and finalized at location A.
--- NOTE | ~2021-10-22 | CT_ITS ---
EXAMINATION: CT abdomen pelvis wo con DATE: 10/24/2021 08:20 INDICATION: Postop Ileus, s/p right hemicolectomy TECHNIQUE: Computed tomography (CT) of the abdomen and pelvis was performed without intravenous contr ast. Automated exposure control and iterative reconstruction technique were employed. The dose-length product was 184.75 mGy-cm. COMPARISON: 09/08/2021. FINDINGS: Lower thorax: Basilar atelectasis/scar. Aortic valve and coronary artery calcification Liver: Normal. Biliary/Gallbladder: Gallbladder is normal. No bile duct dilation. Pancreas: No mass or duct dilation. Spleen: Normal. Adrenals:No mass. Kidneys: No mass, stone, or hydronephrosis. GI tract: No small or large bowel dilation. Surgical anastomosis in the right colon. Appendix not vis ualized. Mesentery/Peritoneum: Minimal mesenteric edema and fluid. Retroperitoneum: No mass. Pelvis: Uterus not visualized. Mild bladder wall thickening.. Soft Tissues: Soft tissues and body wall unremarkable. Bones: Stable L1 burst fracture. L1 vertebral body cement. L3-S1 posterior fusion. IMPRESSION: No CT evidence of ileus or obstruction. Expected post surgical changes in the abdomen and right colon . Possible cystitis. Reviewed, dictated and finalized at location K. IMPRESSION: No CT evidence of ileus or obstruction. Expected post surgical changes in the a bdomen and right colon. Possible cystitis.
--- NOTE | 2021-10-22 15:20 | ECG_ITS ---
Measurements Intervals [place] Rate: 77 P: 15 CT: 152 QRS: 27 QRSD: 86 T: 18 QT: 377 QTc: 428 Interpretive Statements SINUS RHYTHM WITHIN NORMAL LIMITS COMPARED TO ECG 10/16/2021 10:28:41 NO SIGNIFICANT CHANGES Electronically Signed On 10-22-2021 16:59:23 CDT by Tae Newman M.D.
--- NOTE | 2021-10-22 15:32 | PM.IMHP ---
H&P: HPI History of Present Illness Date/Time: 10/22/21 15:32 Chief Complaint: Postoperative nausea and vomiting Narrative: This is a 71-year-old is readmitted for postoperative nausea and vomiting. She just underwent hand assisted laparoscopic right hemicolectomy for ascending colon cancer on 10/13/2021. She was discharged on 10/20/2019 to and was tolerating her diet was not having much for bowel movements yet. Should was passing flatus and denies any bloating or nausea or vomiting at that time. Since being discharged home she has felt more bloated and over the past 2 days has had nausea and vomiting. She states that she cannot keep any of her meals down. She did have 1 episode of feeling like her heart was racing after she vomited, but now is feeling fine. She did have a run of atrial fibrillation during her hospitalization and was discharged in sinus rhythm but was placed on Eliquis. She does states she is having a little bit of labored breathing with deep breaths, but otherwise feels okay. She denies chest pain and lightheadedness. She called the office this morning with these complaints and I sent patient for CBC, BMP, and obstructive series. Labs are essentially unchanged from the time of discharge, and abdominal x-ray did show some dilated transverse colon but no dilated small bowel. Review of Systems Review of Systems: All systems reviewed & are unremarkable except as noted in HPI and below Eyes: Eyes: Denies change in vision ENT: Denies hearing loss, Denies neck pain and Denies sore throat Cardiovascular: Cardiovascular: Denies chest pain and Denies dyspnea Respiratory: Respiratory: Denies cough, Denies dyspnea and Denies wheezing Genitourinary: Genitourinary: Denies hematuria and Denies dysuria Musculoskeletal: Musculoskeletal: Denies arthralgias, Denies joint swelling and Denies neck pain Allergic/Immunologic: Allergic/Immunologic: Denies wheezing PMFSH Past Medical History Medical History Arthritis At high risk for falls BMI 22.0-22.9, adult BMI 23.0-23.9, adult Breast cancer screening by mammogram mammogram on 01/20/2021 was negative. Recheck in 1 year Chronic back pain Chronic cough Chronic depression Chronic left hip pain Chronic low back pain with left-sided sciatica Chronic low back pain with right-sided sciatica Colon cancer screening Colonic mass (~09/01/21) 25-30 mm mass ascending colon On 09/01/2021. the patient had a right hemicolectomy on 10/13/2021 for adenocarcinoma of the ascending colon. Constipation Cough Elbow contusion Encounter for preprocedure screening laboratory testing for COVID-19 Essential hypertension Fatigue GERD (gastroesophageal reflux disease) Hiatal hernia Hyperlipidemia Hypertension Hypothyroidism TSH 1.22 with free T4 at 1.5 on 12/15/2020 Insomnia Low iron (12/15/20) iron 51 with 14% saturation and hemoglobin 12.5 on 12/15/2020 Mixed hyperlipidemia total cholesterol 207, triglycerides 87, HDL 62, LDL 126 on 12/15/2020 Overactive bladder Peripheral neuropathy Primary adenocarcinoma of ascending colon (09/01/21) right hemicolectomy 10/13/2021. Seborrheic keratosis Urinary frequency Urinary frequency volume chart completed Vitamin D deficiency, unspecified (12/15/20) level low at 26 with goal greater than 30 on 12/15/2020 Weight loss, unintentional Surgical History Surgical History History of back surgery lumbosacral fusion Family History Family History Other Alcohol abuse Diabetes mellitus Hypertension Social History Social History Years smoked: 10 Smoking status: Former smoker Tobacco type: cigarettes Second hand tobacco smoke exposure: No Smoking end date: 05/01/89 Alcohol intake: never Substance use: n
--- NOTE | 2021-10-22 16:18 | PC.NURSE ---
This patient, Kaitlin Bond, was admitted to [facility] Surg Room 320-01. Patient/family oriented to hospital policies and general routines including ID bracelet, bed and alarms, visiting hours, pain management, procedures, bathroom and other care routines, personal items, smoking policy, room service/diet, and visiting hours. Information on how to activate the Rapid Response Team has been discussed. Patient/Family are encouraged to report perceived risks to care and to ask questions if they do not understand what they are told or what they should do.
[2021-10-22 16:27] VITALS: BP 125/85; PULSE 88; RESP 16; TEMP 36.7; O2SAT 98
[2021-10-22] MEDS: SODIUM CHLORIDE 0.9% IV 1,000 ML 100 ML IV CONT (16:29)
[2021-10-22] MEDS: ONDANSETRON INJ 4 MG/2 ML VIAL IV PUSH (16:35)
[2021-10-22] MEDS: HYDROmorphone HCL INJ (*CRX) 1 MG/ML SYR 0.5 MG IV PUSH (18:38)
[2021-10-22 20:08] VITALS: BMI 20.9
[2021-10-22 21:38] VITALS: BP 129/77; PULSE 70; RESP 18; TEMP 36.7; O2SAT 99
[2021-10-23] VITALS (7 sets, daily range): BP systolic 111–129; BP diastolic 63–74; PULSE 60–69; RESP 16–20; TEMP 36.3–36.9; O2SAT 96–98
[2021-10-23] MEDS: ACETAMINOPHEN 325 MG TABLET 650 MG PO (00:38)
[2021-10-23] MEDS: ZOLPIDEM TARTRATE (*CRX) 5 MG TABLET PO (00:54)
[2021-10-23] MEDS: SODIUM CHLORIDE 0.9% IV 1,000 ML 100 ML IV CONT ×2 (05:17→15:33)
[2021-10-23 06:35] LABS: Hematocrit 30.5 % (37.0-47.0); Hemoglobin 10.2 g/dL (12.0-15.0); Mean Corpuscular HGB Conc 33.4 g/dl (32-36); Mean Corpuscular Hemoglobin 30.5 pg (26-34); Mean Corpuscular Volume 91.3 fl (80-100); Mean Platelet Volume 8.9 fl (7.4-10.4); Platelet Count Result 383 k/mm3 (150-375); Red Blood Count 3.34 M/mm3 (4.2-5.4); Red Cell Distribution Width 13.4 % (11.5-14.5); White Blood Count 7.4 K/mm3 (4.5-10.0)
[2021-10-23 06:48] LABS: Anion Gap 2 mmol/L (8-16); Blood Urea Nitrogen 9 mg/dL (7-17); CRP < 0.5 mg/dL (<1.0); Calcium 7.9 mg/dL (8.4-10.2); Carbon Dioxide 27 mmol/L (22-30); Chloride 104 mmol/L (98-107); Estimated CRCL calculation 59 ml/min; Estimated Glomerular Filt Rate > 60; Glucose 95 mg/dL (65-110); Potassium 3.8 mmol/L (3.4-5.0); Sodium 133 mmol/L (137-145)
[2021-10-23] MEDS: BISACODYL 10 MG SUPPOSITORY RECTAL (13:30)
[2021-10-23] MEDS: PANTOPRAZOLE 40 MG TABLET PO ×2 (13:30→20:10)
[2021-10-23] MEDS: OXYBUTYNIN CHLORIDE 5 MG TABLET PO ×2 (13:30→20:10)
[2021-10-23] MEDS: ATORVASTATIN 20 MG TABLET PO (13:31)
[2021-10-23] MEDS: METOPROLOL SUCCINATE EXT REL 100 MG TABCR PO (13:31)
[2021-10-23] MEDS: METOPROLOL SUCCINATE EXT REL 25 MG TABCR PO (13:32)
--- NOTE | 2021-10-23 13:48 | PM.PNGS ---
Progress Note: A&P Assessment and Plan (1) Postoperative ileus: Code(s): K91.89 - Other postprocedural complications and disorders of digestive system; K56.7 - Ileus, unspecified Status: Acute Assessment and Plan: Xray still showing dilated transverse colon. This is all distal to where anastomosis was performed. Will get CT abd/pelvis today to further assess. Might just need more stimulation. Will give Dulcolax suppository today. (2) Primary adenocarcinoma of ascending colon: Onset Date: 09/01/21 Code(s): C18.2 - Malignant neoplasm of ascending colon Status: Acute (3) New onset a-fib: Onset Date: 10/16/21 Code(s): I48.91 - Unspecified atrial fibrillation Status: Acute Assessment and Plan: Currently in sinus rhythm. On Eliquis, Metoprolol. (4) Hypothyroidism (acquired): Code(s): E03.9 - Hypothyroidism, unspecified Status: Acute Subjective Subjective Date/Time Seen: 10/23/21 13:48 Interval history: Patient passing flatus and having a little liquid BMs, but says she still feels the same. Denies nausea/vomiting. Doesn't like the clear liquids. Exam GI: Inspection: non-distended GI Palp: Yes Tenderness to palpation present (GI) (mild incisional) and No Guarding due to palpation present (GI) Auscultation: normal bowel sounds Objective Data Vital Signs Vital Signs: Vital Signs - 24 hr 10/22/21 16:27 10/22/21 21:38 10/22/21 20:00 Temperature 36.7 C 36.7 C Pulse Rate 88 70 Respiratory Rate 16 18 Blood Pressure 125/85 129/77 Pulse Oximetry 98 99 Oxygen Delivery Room Air 10/23/21 05:35 10/23/21 08:00 10/23/21 13:31 Temperature 36.9 C Pulse Rate 66 66 60 Respiratory Rate 16 16 Blood Pressure 129/68 Pulse Oximetry 96 96 Oxygen Delivery Room Air 10/23/21 13:32 Temperature Pulse Rate 60 Respiratory Rate Blood Pressure Pulse Oximetry Oxygen Delivery Intake/Output Intake/Output: Intake & Output 10/20/21 10/21/21 10/22/21 10/23/21 23:59 23:59 23:59 23:59 Intake Total 600 1150 Balance 600 1150 Meds/Results Medications: Active Medications Generic Name Dose Route Start Last Admin Trade Name Freq PRN Reason Stop Dose Admin Acetaminophen 650 mg 10/22/21 15:18 10/23/21 00:38 Acetaminophen 325 Mg Tablet PO 650 mg Q4H PRN Administration Mild Pain (1-3) or Fever Amlodipine Besylate 10 mg 10/24/21 09:00 Amlodipine Besylate 5 Mg Tablet PO QAM [facility] Atorvastatin Calcium 20 mg 10/23/21 09:00 10/23/21 13:31 Atorvastatin 20 Mg Tablet PO 20 mg QAM NATHANIEL Administration Hydromorphone HCl 0.5 mg 10/22/21 15:22 10/22/21 18:38 Hydromorphone Hcl Inj (*Crx) 1 Mg/Ml Syr IV PUSH 0.5 mg Q2H PRN Administration Pain Rated 4-6 Hydromorphone HCl 1 mg 10/22/21 15:22 Hydromorphone Hcl Inj (*Crx) 1 Mg/Ml Syr IV PUSH Q2H PRN Pain Rated 7-10 Sodium Chloride 1,000 mls @ 100 mls/hr 10/22/21 15:20 10/23/21 05:17 Normal Saline Iv IV CONT 100 mls/hr .Q10H NATHANIEL Administration Levothyroxine Sodium 50 mcg 10/24/21 06:30 Levothyroxine Sodium 50 Mcg Tablet PO DAILY@0630 [facility] Metoprolol Succinate 100 mg 10/23/21 09:00 10/23/21 13:31 Metoprolol Succinate Ext Rel 100 Mg Tabcr PO 100 mg QAM [facility] Administration Metoprolol Succinate 25 mg 10/23/21 09:00 10/23/21 13:32 Metoprolol Succinate Ext Rel 25 Mg Tabcr PO 25 mg QAM NATHANIEL Administration Miscellaneous Information 0 each 10/23/21 00:01 Lunesta = Non Form. Recommend Change To Melatonin Or Use Home Med. XX 11/22/21 00:00 [facility] Non-Formulary Medication 3 mg 10/23/21 12:22 Eszopiclone [Lunesta] PO . q.h.s. PRN insomnia Ondansetron HCl 4 mg 10/22/21 15:18 10/22/21 16:35 Ondansetron Inj 4 Mg/2 Ml Vial IV PUSH 4 mg Q6H PRN Administration Nausea And Vomiting Oxybutynin Chloride 5 mg 10/23/21 12:50 10/23/21 13:30 Oxybu
[2021-10-23] MEDS: HYDROmorphone HCL INJ (*CRX) 1 MG/ML SYR 0.5 MG IV PUSH (16:34)
--- NOTE | 2021-10-23 17:20 | PHAR ---
Addendum entered by Evelina Guevara, PharmD 10/23/21 17:21: ONLY 5 TABLETS BROUGHT IN Original Note: LUNESTA 3MG TABLETS VERIFIED BY PHARMACY TAKE 1 TABLET PO QHS PRN INSOMNIA
[2021-10-23] MEDS: RIVAROXABAN 20 MG TABLET PO (18:26)
[2021-10-24] MEDS: SODIUM CHLORIDE 0.9% IV 1,000 ML 100 ML IV CONT (01:38)
[2021-10-24] MEDS: LEVOTHYROXINE SODIUM 50 MCG TABLET PO (05:29)
[2021-10-24 06:00] VITALS: BP 114/65; PULSE 66; RESP 20; TEMP 36.8; O2SAT 95
[2021-10-24 08:00] VITALS: PULSE 66; RESP 20; O2SAT 95
[2021-10-24 09:54] VITALS: PULSE 66; PULSE 68
[2021-10-24] MEDS: METOPROLOL SUCCINATE EXT REL 100 MG TABCR PO (09:54)
[2021-10-24] MEDS: METOPROLOL SUCCINATE EXT REL 25 MG TABCR PO (09:54)
[2021-10-24] MEDS: OXYBUTYNIN CHLORIDE 5 MG TABLET PO (09:55)
[2021-10-24] MEDS: PANTOPRAZOLE 40 MG TABLET PO (09:55)
--- NOTE | 2021-10-24 11:04 | PM.PNGS ---
Progress Note: A&P Assessment and Plan (1) Postoperative ileus: Code(s): K91.89 - Other postprocedural complications and disorders of digestive system; K56.7 - Ileus, unspecified Status: Acute Assessment and Plan: CT performed this morning, but no radiology report yet. I reviewed CT and colon does not appear significantly dilated. Will start full liquid diet and await radiology report. Possibly advanced to regular diet tomorrow plan for discharge tomorrow if continuing to improve. (2) Primary adenocarcinoma of ascending colon: Onset Date: 09/01/21 Code(s): C18.2 - Malignant neoplasm of ascending colon Status: Acute (3) New onset a-fib: Onset Date: 10/16/21 Code(s): I48.91 - Unspecified atrial fibrillation Status: Acute Assessment and Plan: Currently in sinus rhythm. On Eliquis, Metoprolol. (4) Hypothyroidism (acquired): Code(s): E03.9 - Hypothyroidism, unspecified Status: Acute Subjective Subjective Date/Time Seen: 10/24/21 11:04 Interval history: Symptoms improved. Passing flatus. Still not much for bowel movements. Pain significantly improved. No nausea or vomiting. Exam GI: Inspection: non-distended and incision (Intact with glue) GI Palp: Yes Soft to palpation, No Tenderness to palpation present (GI) and No Guarding due to palpation present (GI) Percussion: Yes normal to percussion Auscultation: normal bowel sounds Objective Data Vital Signs Vital Signs: Vital Signs - 24 hr 10/23/21 13:31 10/23/21 13:32 10/23/21 14:00 Temperature 36.3 C L Pulse Rate 60 60 69 Respiratory Rate 20 Blood Pressure 111/63 Pulse Oximetry 98 Oxygen Delivery 10/23/21 20:00 10/23/21 22:00 10/24/21 06:00 Temperature 36.8 C 36.8 C Pulse Rate 69 69 66 Respiratory Rate 20 20 Blood Pressure 125/74 114/65 Pulse Oximetry 98 96 95 Oxygen Delivery Room Air 10/24/21 09:54 10/24/21 09:54 Temperature Pulse Rate 68 66 Respiratory Rate Blood Pressure Pulse Oximetry Oxygen Delivery Intake/Output Intake/Output: Intake & Output 06/23/22 06/24/22 06/25/22 06/26/22 23:59 23:59 23:59 23:59 Intake Total 600 2460 1250 Balance 600 2460 1250 Meds/Results Medications: Active Medications Generic Name Dose Route Start Last Admin Trade Name Fre PRN Reason Stop Dose Admin Acetaminophen 650 mg 10/22/21 15:18 10/23/21 00:38 Acetaminophen 325 Mg Tablet PO 650 mg Q4H PRN Administration Mild Pain (1-3) or Fever Amlodipine Besylate 10 mg 10/24/21 09:00 Amlodipine Besylate 5 Mg [facility] [place] Atorvastatin Calcium 20 mg 10/23/21 09:00 10/23/21 13:31 Atorvastatin 20 Mg Tablet PO 20 mg QAM [facility] Administration Home Med 1 each 10/23/21 12:22 10/23/21 23:07 Eszopiclone [Lunesta] 3 Mg Tablet (Home Med) PO 11/22/21 12:21 1 each HS PRN Administration insomnia Hydromorphone HCl 0.5 mg 10/22/21 15:22 10/23/21 16:34 Hydromorphone Hcl Inj (*Crx) 1 Mg/Ml Syr IV PUSH 0.5 mg Q2H PRN Administration Pain Rated 4-6 Hydromorphone HCl 1 mg 10/22/21 15:22 Hydromorphone Hcl Inj (*Crx) 1 Mg/Ml Syr IV PUSH Q2H PRN Pain Rated 7-10 Levothyroxine Sodium 50 mcg 10/24/21 06:30 10/24/21 05:29 Levothyroxine Sodium 50 Mcg Tablet PO 50 mcg DAILY@0630 [facility] Administration Metoprolol Succinate 100 mg 10/23/21 09:00 10/24/21 09:54 Metoprolol Succinate Ext Rel 100 Mg Tabcr PO 100 [facility] [place] Administration Metoprolol Succinate 25 mg 10/23/21 09:00 10/24/21 09:54 Metoprolol Succinate Ext Rel 25 Mg Tabcr PO 25 mg QAM [facility] Administration Ondansetron HCl 4 mg 10/22/21 15:18 10/22/21 16:35 Ondansetron Inj 4 Mg/2 Ml Vial IV PUSH 4 mg Q6H PRN Administration Nausea And Vomiting Oxybutynin Chloride 5 mg 10/23/21 12:50 10/24/21 09:55 Oxybutynin Chloride 5 Mg Tablet PO 5 mg Q12HR [facility] Administration Pantoprazol
[2021-10-24] MEDS: ATORVASTATIN 20 MG TABLET PO (14:19)
[2021-10-24 14:54] VITALS: BP 140/79; PULSE 72; RESP 16; TEMP 36.5; O2SAT 96
[2021-10-24] MEDS: ACETAMINOPHEN 325 MG TABLET 650 MG PO (16:47)
[2021-10-24] MEDS: RIVAROXABAN 20 MG TABLET PO (18:18)
[2021-10-24 22:00] VITALS: BP 141/73; PULSE 70; RESP 16; TEMP 36.2; O2SAT 99
[2021-10-25] MEDS: LEVOTHYROXINE SODIUM 50 MCG TABLET PO (05:51)
[2021-10-25 06:00] VITALS: BP 125/68; PULSE 69; RESP 16; TEMP 37.6; O2SAT 97
[2021-10-25] MEDS: ATORVASTATIN 20 MG TABLET PO (09:49)
[2021-10-25 09:50] VITALS: PULSE 74
[2021-10-25] MEDS: METOPROLOL SUCCINATE EXT REL 100 MG TABCR PO (09:50)
[2021-10-25] MEDS: PANTOPRAZOLE 40 MG TABLET PO (09:50)
[2021-10-25] MEDS: METOPROLOL SUCCINATE EXT REL 25 MG TABCR PO (09:50)
[2021-10-25] MEDS: OXYBUTYNIN CHLORIDE 5 MG TABLET PO (09:51)
[2021-10-25] MEDS: ACETAMINOPHEN 325 MG TABLET 650 MG PO (09:57)
--- NOTE | 2021-10-25 12:16 | PM.DS ---
DS: Admitting Diagnosis Discharge Date 10/25/2021 Admitting Diagnosis Postoperative ileus, ascending colon adenocarcinoma, new onset AFib, hypothyroidism hypertension DS: Discharge Diagnosis Discharge Diagnosis (1) Postoperative ileus: Code(s): K91.89 - Other postprocedural complications and disorders of digestive system; K56.7 - Ileus, unspecified Status: Resolved (2) Primary adenocarcinoma of ascending colon: Onset Date: 09/01/21 Code(s): C18.2 - Malignant neoplasm of ascending colon Status: Acute (3) New onset a-fib: Onset Date: 10/16/21 Code(s): I48.91 - Unspecified atrial fibrillation Status: Acute (4) Hypothyroidism (acquired): Code(s): E03.9 - Hypothyroidism, unspecified Status: Acute (5) Essential hypertension: Code(s): I10 - Essential (primary) hypertension Status: Acute DS: Summary Hospital Course Reason for hospitalization: Postoperative nausea and vomiting Hospital Course: This is a 71-year-old woman who is status post hand assisted laparoscopic right hemicolectomy for ascending colon cancer on 10/13/2021. She recovered from this surgery and was discharged 10/19/2021. After being discharged she began experiencing more bloating and was having persistent nausea and vomiting. An abdominal x-ray showed evidence of a distended transverse colon suggestive of postoperative ileus. Since she was not able to keep any solid or liquid food down and was concerned about becoming more dehydrated and malnourished, she was placed back in observation for further treatment. She was initially placed on a clear liquid diet. She was remaining hemodynamically stable and she had a normal white blood count. Follow-up abdominal x-ray on 10/23 showed persistent mildly dilated transverse colon. Patient was passing a little flatus, but was not having any significant bowel movements. She was given a Dulcolax suppository to help stimulate the bowels. CT of her abdomen and pelvis was obtained on 10/24 and this showed normal postoperative changes without any residual dilated bowel. Her diet was then gradually advanced as tolerated on 10/24. On 10/25 she was able to tolerate a soft regular diet. Bowels were moving and becoming more formed. She was discharged on 10/25. Status at Discharge Functional status at discharge: independent ambulation Overall status at discharge: patient is progressing back to baseline Time Spent with Patient Time attestation: Total time spent providing and/or coordinating discharge services: Time spent: Less than 30 minutes Exam Const: General: cooperative, no acute distress and alert Orientation/consciousness: patient oriented x3 Resp: Effort & Inspection: normal respiratory effort Auscultation: clear to auscultation bilaterally Cardio: Rate: regular rate Rhythm: regular rhythm Heart sounds: S1 normal heart sound present and S2 normal heart sound present GI: Inspection: normal to inspection, non-distended and incision (Intact with glue) GI Palp: Yes Soft to palpation, No Tenderness to palpation present (GI) and No Guarding due to palpation present (GI) Auscultation: normal bowel sounds DS: Data Imaging Radiologist's impression: ITS Impressions Chest X-Ray 10/22/21 15:57 IMPRESSION: 1. Chronic mild elevation of the left hemidiaphragm. No acute cardiopulmonary disease. Abdomen X-Ray 10/23/21 08:14 IMPRESSION: 1. Persistent distention of the transverse colon, likely adynamic ileus. Abdomen/Pelvis CT 10/24/21 18:26 IMPRESSION: No CT evidence of ileus or obstruction. Expected post surgical changes in the abdomen and right colon. Possible cystitis. Discharge Plan Discharge Attending physician on discharge: Emil Black Discharging Clinician: Emil Black Patient Disposition: Home, Self-Care Activity: may shower Diet: as tolerated and regular Patient Instructions: Antibiotic For
== END 2021-10-25 13:40 | disposition home or self-care (01) ==
PROVIDERS: Admitting Provider Surgery; PCP Family Medicine; Visit Provider Surgery
DX: K91.0 Vomiting following gastrointestinal surgery (principal); K91.89 Other postprocedural complications and disorders of digestive system; K56.7 Ileus, unspecified; C18.2 Malignant neoplasm of ascending colon; I10 Essential (primary) hypertension; E78.5 Hyperlipidemia, unspecified; E03.9 Hypothyroidism, unspecified; Z87.891 Personal history of nicotine dependence; I48.91 Unspecified atrial fibrillation
CPT/HCPCS: 36415; 71046; 74018; 74019; 74176; 80048; 85025; 85027; 86140; 93005; 96361; 96374; 96375; 96376; A9270; G0378; J1170; J2405; J7030

== ENCOUNTER → 2022-01-18 15:33 | Outpatient (CLI) | payer MEDICARE, SELFPAY ==
--- NOTE | ~2022-01-18 | XR_ITS ---
EXAM: XR knee LT 3V DATE: 01/18/2022 16:11 HISTORY: M25.562-medial knee pain in left knee,fall 2weeks ago . COMPARISON: 08/11/2018. FINDINGS: Decreased mineralization. No fracture or dislocation. No lytic or blastic lesion. Mild med ial joint space narrowing. No erosion or periosteal change. Vascular calcification. Anterior soft tis katrin swelling. IMPRESSION: No acute osseous finding in the left knee. Reviewed, dictated and finalized at location K.
--- NOTE | ~2022-01-18 | XR_ITS ---
XR lumbar spine min 4V DATE: 01/18/2022 16:09 INDICATION: Lumbago, right sciatica. Pain is worsening. TECHNIQUE: AP, lateral, coned lateral lumbosacral and bilateral oblique views COMPARISON: 08/11/2018 CT lumbar spine FINDINGS: Osteopenia. There is mild lumbar levoscoliosis. Chronic stable moderately severe burst fracture deformity and vertebroplasty at L1, unchanged since . There is interval severe degenerative disc disease and chronic mild retrolisthesis at L2-3 since 08/11. Again noted is postoperative change with posterior pedicle screws and rods and interbody spinal fusio n at L3-S1. There is stable grade 2 anterolisthesis at L5-S1. The sacroiliac joints are intact. IMPRESSION: Osteopenia Chronic burst fracture deformity and vertebroplasty at L1 Interval severe degenerative disc disease at L2-3, with chronic mild retrolisthesis at this level Again noted is posterior and interbody spinal fusion at L3-S1 Reviewed, dictated and finalized at location B. IMPRESSION: Osteopenia Chronic burst fracture deformity and vertebroplasty at L1 Interval severe degenerative disc disease at L2-3, with chronic mild retrolisth esis at this level Again noted is posterior and interbody spinal fusion at L3-S1
== END ==
PROVIDERS: PCP Family Medicine; Visit Provider Family Medicine
DX: M25.562 Pain in left knee (principal); M54.41 Lumbago with sciatica, right side; M41.9 Scoliosis, unspecified; S32.011A Stable burst fracture of first lumbar vertebra, initial encounter for closed fracture; M43.16 Spondylolisthesis, lumbar region; Z98.1 Arthrodesis status; M79.89 Other specified soft tissue disorders
CPT/HCPCS: 72110; 73562

== ENCOUNTER 2022-01-24 14:55 | Outpatient (CLI) | payer MEDICARE, SELFPAY ==
--- NOTE | ~2022-01-24 | MM_ITS ---
EXAMINATION: MM screening germain BI w katie HISTORY: Screening mammogram TECHNIQUE: Craniocaudal and mediolateral oblique 3-D tomosynthesis images were obtained and synthetic 2-D images were generated. CAD analysis was submitted and interpreted. COMPARISON: 01/20/2021, 11/21/2019, 10/26/2018 bilateral screening mammogram examinations BREAST PARENCHYMAL COMPOSITION: There are scattered areas of fibroglandular density. FINDINGS: There is no evidence of suspicious mass, calcification, or architectural distortion to sugg est malignancy in either breast. There has been no suspicious interval change. IMPRESSION: 1. No mammographic evidence of malignancy. 2. Recommend routine screening mammography in one year. BI-RADS Category 1: Negative Reviewed, dictated and finalized at location A.
== END 2022-01-24 14:56 | disposition home or self-care (01) ==
LOC: ANHIMG 14:58
PROVIDERS: PCP Family Medicine; Visit Provider Family Medicine
DX: Z12.31 Encounter for screening mammogram for malignant neoplasm of breast (principal)
CPT/HCPCS: 77063; 77067

== ENCOUNTER → 2022-05-28 09:27 | Outpatient (CLI) | payer MEDICARE, SELFPAY ==
--- NOTE | ~2022-05-28 | MR_ITS ---
EXAMINATION: MR cervical spine wo con DATE: 05/28/2022 10:22 INDICATION: Neck pain. Left arm tingling. TECHNIQUE: Magnetic resonance imaging (MRI) of the cervical spine was performed without intravenous c ontrast. Sequences included sagittal T2-weighted FSE, sagittal T2-weighted FS FSE, sagittal T1-weight ed FSE, axial MERGE, and axial T2-weighted FSE. COMPARISON: Cervical spine MRI 01/10/2018 FINDINGS: There is 18 degrees levoscoliosis of cervicothoracic spine. There is anterior fusion from C 3 to C6 with bridging interbody bone . There is an anterior plate with screws at C3-C4. There is mode rately decreased disc height at C3-C4, severely decreased disc height at C6-C7, and mildly decreased disc height at C7-T1. There is severe upper thoracic spondylosis. The spinal cord signal intensity is normal. The following disc levels are specifically discussed: C2-C3: The disc is bulging. There is there is ankylosis of the uncovertebral joints with mild hypertr ophy. There is severe bilateral facet joint osteoarthritis. There is mild left neural foraminal steno sis. There is mild central canal stenosis. C3-C4: There is mild bilateral uncovertebral joint hypertrophy. There is ankylosis of the facet joint s with severe hypertrophy. There is mild right neural foraminal stenosis. There is mild central canal stenosis. C4-C5: There is mild bilateral uncovertebral joint hypertrophy. There is ankylosis of the facet joint s with mild hypertrophy. There is no neural foraminal stenosis. There is mild central canal stenosis. C5-C6: There is no uncovertebral joint hypertrophy. There is no facet joint osteoarthritis. There is no neural foraminal stenosis. There is no central canal stenosis. C6-C7: The disc is bulging. There is severe bilateral uncovertebral joint osteoarthritis. There is se geno right and mild left facet joint osteoarthritis. There is mild right and moderate left neural for aminal stenosis. There is mild central canal stenosis. C7-T1: The disc is bulging. There is moderate bilateral uncovertebral joint osteoarthritis. There is moderate right and severe left facet joint osteoarthritis. There is mild left neural foraminal stenos is. There is no central canal stenosis. IMPRESSION: 1. Severe cervical spondylosis, stable from 01/10/2018. 2. Anterior fusion from C2 to C6. Reviewed, dictated and finalized at location A. [employer]
== END ==
PROVIDERS: PCP Family Medicine; Visit Provider Nurse Practitioner Family
DX: M47.812 Spondylosis without myelopathy or radiculopathy, cervical region (principal); M43.22 Fusion of spine, cervical region; R29.898 Other symptoms and signs involving the musculoskeletal system; Z98.890 Other specified postprocedural states
CPT/HCPCS: 72141

== ENCOUNTER 2022-06-06 12:22 | Outpatient (RCR) | payer MEDICARE, SELFPAY ==
--- NOTE | 2022-06-06 14:00 | OTOPDC ---
Assessment and note entered by Dewey Guzman, ANNABELR/Wilfrid, CHT Evaluation Information Assessment Status Evaluation Subjective Information Patient presents today for w/c evaluation with dx of frequent falls and generalied weakness. She presents today with her . She typically uses a rollator for all mobility, however she has been having up to 8 falls per day at home with this equipment. She is not a funcitonal or safe ambulator and will benefit from use of a power w/c to increase safety and independence as well as reduce falls at home. Reported Pain Level Pain Score 10,8,3,6: Self Report Assessment OT Clinical Summary Kaitlin requires a standard power wheelchair because she is unable to safely participate in or complete household mobility and daily tasks safely with a cane or walker due to muscle weakness, increased pain, limited endurance, and decreased balance. Kaitlin is also unable to propel an optimally configured manual wheelchair secondary to UE pain. She has attempted to propel a manual a wheelchair, but lacks the muscle endurance and strength to safely propel wheelchair. A scooter is not an appropriate option because difficulty with transfer in/out of the scooter, limited joint motion, and decreased balance. My patient has been evaluated and demonstrates the gross motor, fine motor and cognitive ability to safely operate the power wheelchair. Without the use of a standard power wheelchair. With a power wheelchair, she will be able to perform daily tasks with improve performance and tolerance. Please refer to seating/mobility evaluation paperwork for more details. Thank you for this referral. No care plan initiated as this was for evaluation purposes only . Discharging from therapy services. Plan of Care OT Services Indicated No
== END 2022-06-06 14:58 | disposition home or self-care (01) ==
LOC: ANHOT 12:22
PROVIDERS: PCP Family Medicine; Visit Provider Nurse Practitioner Family
DX: R53.1 Weakness (principal); R29.6 Repeated falls; M54.2 Cervicalgia; Z98.890 Other specified postprocedural states
CPT/HCPCS: 97166

== ENCOUNTER → 2022-06-27 10:40 | Outpatient (CLI) | payer MEDICARE, SELFPAY ==
--- NOTE | ~2022-06-27 | CT_ITS ---
EXAMINATION: CT cervical spine wo con DATE: 06/27/2022 11:06 INDICATION: Cervical spondylosis. TECHNIQUE: Computed tomography (CT) of the cervical spine was performed without intravenous contrast. Automated exposure control and iterative reconstruction technique were employed. The dose-length pro duct was 142.93 mGy-cm. COMPARISON: CT cervical spine 01/20/2017 FINDINGS: There is 10 degrees levoscoliosis of cervical spine. There is kyphosis of cervical spine. T here are changes of anterior fusion procedure from C3 to C6 with healed interbody bone graft. At C3-C 4, there is an anterior plate with screws. There is mild chronic anterior wedging of C7 vertebral bod y. There is severely decreased disc height at C2-C3 and C6-C7 and moderately decreased disc height at C7-T1. The following disc levels are specifically discussed: C2-C3: There is severe right and moderate left uncovertebral joint osteoarthritis. There is severe bi lateral facet joint osteoarthritis. There is mild bilateral neural foraminal stenosis. There is mild central canal stenosis. C3-C4: There is mild left uncovertebral joint hypertrophy. There is ankylosis of the facet joints wit h moderate hypertrophy. There is mild bilateral neural foraminal stenosis. There is no central canal stenosis. C4-C5: There is no uncovertebral joint hypertrophy. There is ankylosis of the facet joints with mild hypertrophy. There is no neural foraminal stenosis. There is mild central canal stenosis. C5-C6: There is no uncovertebral joint hypertrophy. There is no facet joint osteoarthritis. There is no neural foraminal stenosis. There is no central canal stenosis. C6-C7: There is severe bilateral uncovertebral joint osteoarthritis. There is severe right and mild l eft facet joint osteoarthritis. There is mild bilateral neural foraminal stenosis. There is mild cent ral canal stenosis. C7-T1: There is moderate right and severe left uncovertebral joint osteoarthritis. There is severe bi lateral facet joint osteoarthritis. There is mild left neural foraminal stenosis. There is mild centr al canal stenosis. IMPRESSION: 1. Severe cervical spondylosis, worsened from 01/20/17. 2. Anterior fusion procedure from C3 to C6. Reviewed, dictated and finalized at location A. CTOR COMPLIANCE
== END ==
PROVIDERS: PCP Family Medicine
DX: M47.812 Spondylosis without myelopathy or radiculopathy, cervical region (principal); Z98.1 Arthrodesis status
CPT/HCPCS: 72125

== ENCOUNTER 2022-08-04 12:17 | Emergency (ER) | payer MEDICARE, SELFPAY ==
[2022-08-04 12:19] VITALS: BP 145/99; PULSE 61; RESP 16; TEMP 36.4; O2SAT 100
--- NOTE | 2022-08-04 13:38 | PC.NURSE ---
pt and to intake desk. states this is ridiculous how long is this going to take! informed pt and that the ER is full at this time and we will get them back to a room as soon as we can. states this is bullshit we are going to another hospital
--- NOTE | 2022-08-04 13:46 | PC.NURSE ---
no answer when called from waiting room. per front services agent. pt walked out
== END 2022-08-04 16:03 | disposition left against medical advice (07) ==
LOC: ANHED 13:51
PROVIDERS: PCP Family Medicine
DX: S09.90XA Unspecified injury of head, initial encounter (principal)
CPT/HCPCS: 99199

== ENCOUNTER 2022-08-08 00:23 | Day surgery (SDC) | payer MEDICARE, SELFPAY ==
[2022-08-05 15:19] VITALS: BMI 22.1
[2022-08-08 10:36] VITALS: BP 165/81; PULSE 76; RESP 20; TEMP 36.1; O2SAT 100; BMI 22.9
--- NOTE | 2022-08-08 11:46 | WPDHPUPDATE1 ---
History and Physical Update Update Date/Time: 08/08/22 11:47 History and Physical has been reviewed, including an updated exam of the patient. There are NO changes in the patient's condition. Risks, benefits, and alternatives have been discussed and questions answered. Patient agrees to proceed with procedure.
--- NOTE | 2022-08-08 11:47 | PM.OP ---
Procedure Note - Brief Procedure Note - Brief Date of procedure: 08/08/22 syncope Post-op diagnosis: Same Procedure performed: Loop recorder implantation Surgeon: Bobo Perez MD Description of procedure: Brief History of Present Illness: Patient is a very pleasant 72-year-old female past medical history significant for hypertension, paroxysmal atrial fibrillation recurrent falls with near-syncope and syncope unknown etiology who underwent a 30 day youth nutritional monitor without syncopal episodes which was unrevealing for cause subsequently referred for loop recorder implantation for further evaluation. Furthermore, patient is not a candidate for systemic anticoagulation given her recurrent falls and history of syncope. Procedure detail: After verbal and written informed consent was obtained from the patient risks, benefits, and alternatives explained in detail the patient agreed to proceed with the plan of care as outlined above. Patient was evaluated at bedside in the [facility] procedure room. Patient was placed the appropriate supine position. Left anterior chest wall was prepped and draped in the usual sterile fashion. Operators in appropriate sterile garb. The left 4th intercostal space was identified and marked. Utilizing approximately 27 cc of 1% subcutaneous lidocaine the left anterior chest wall was then locally anesthetized. After local anesthesia was achieved, 2 fingerbreadths left of the sternum at the 4th intercostal space was again identified and a 1 cm incision was made with the included skin punch tool. Following this with the included introducer, a tract was made subcutaneously at a 45 degree angle from the sternum. The introducer was then inverted 180 degrees and with the included plunger the Medtronic REVEAL LINQ II loop recorder was advanced subcutaneously into position easily and without complication. The plunger was then removed followed by the introducer. Manual pressure was held for least 5-10 min with excellent hemostasis. The device was then interrogated and revealed excellent fidelity and measured at 0.7 mV. The Medtronic REVEAL LINQ II SN [id number] was implanted without complication. The incision was then approximated and closed using Exofin skin adhesive. The incision was then covered with a sterile dressing. Complications: None Implants: MEDTRONIC LINQ II implantable loop recorder Estimated blood loss (mL): 0 Complications: No immediate complications Condition: Stable Disposition: Same day
--- NOTE | 2022-08-08 11:48 | WPDMODSED ---
Moderate Sedation Note-Pt Data Patient Data Diagnosis: Syncope Present Complaint: None Procedure to be performed/Plan: Loop recorder implantation History and physical update: Patient is a very pleasant 71-year-old female with a history of hypertension hyperlipidemia, adenocarcinoma and paroxysmal atrial fibrillation with recurrent episodes of recurrent falls with syncope and near-syncope otherwise unexplained. She is now referred for loop recorder implantation for further evaluation chronic leg syncope and history of atrial fibrillation. Thirty day bus monitor did not reveal cause although she did not have a syncopal episode in this time prompting loop recorder implantation. Impression: Unexplained syncope and near-syncope Paroxysmal atrial fibrillation Hypertension Contraindication to anticoagulation Plan of care: Loop recorder implantation as above. Recommendation to follow. Allergies Allergy/AdvReac Type Severity Reaction Status Date / Time gadobenic acid Allergy Intermediate Hives & Verified 08/08/22 10:26 [From CONTRAST-MRI] SWELLING latex Allergy Hives Verified 08/08/22 10:26 adhesive tape AdvReac Mild SKIN Verified 08/08/22 10:26 IRRITATION Home Medications Medication Instructions Recorded Confirmed Type vitamin E 268 mg (400 unit) capsule 400 unit PO QAM 10/04/21 08/05/22 History levothyroxine 50 mcg tablet 50 mcg PO QAM #90 tabs 11/02/21 08/05/22 Rx omeprazole 40 mg capsule,delayed 40 mg PO BID #180 caps 01/05/22 08/05/22 Rx release eszopiclone 3 mg tablet (Lunesta) 3 mg PO . q.h.s. PRN insomnia #30 02/15/22 08/05/22 Rx tabs metoprolol succinate 100 mg 100 mg PO QAM #30 tabs 03/16/22 08/05/22 Rx tablet,extended release 24 hr (Toprol XL) oxybutynin chloride 5 mg tablet 5 mg PO BID #180 tabs 03/30/22 08/05/22 Rx duloxetine 60 mg capsule,delayed 60 mg PO DAILY #90 caps 07/01/22 08/05/22 Rx release oxycodone-acetaminophen 5 mg-325 1 tablet PO Q4H PRN pain #40 tabs 07/04/22 08/08/22 Rx mg tablet (Percocet) aspirin 81 mg tablet,delayed 81 mg PO DAILY 07/20/22 08/05/22 History release (Adult Low Dose Aspirin) atorvastatin 20 mg tablet 20 mg PO QAM #90 tabs 07/20/22 08/05/22 Rx losartan 25 mg tablet 25 mg PO DAILY 08/05/22 08/05/22 History Sedation/Anesthesia: No previous sedation/anesthesia problems (including family history). [facility] Past Medical History Medical History Acute pain of left knee x-ray of the left knee on 01/18/2022 reveals no significant bony defects. Arthritis At high risk for falls BMI 22.0-22.9, adult BMI 23.0-23.9, adult Breast cancer screening by mammogram mammogram on 01/20/2021 was negative. Recheck in 1 year. Normal mammogram 01/24/2022. Cervicalgia Chronic back pain Chronic cough Chronic depression Chronic left hip pain Chronic low back pain with left-sided sciatica Chronic low back pain with right-sided sciatica X-ray of the lumbar spine on 01/18/2022 reveals previous posterior fusion from L3 through S1 unchanged from 08/11/2018 with new severe degenerative disc disease at L2-L3 chronic burst fracture with vertebroplasty at L1 unchanged. Colon cancer screening Colon cancer, ascending Colonic mass (~09/01/21) 25-30 mm mass ascending colon On 09/01/2021. the patient had a right hemicolectomy on 10/13/2021 for adenocarcinoma of the ascending colon. Constipation Elbow contusion Encounter for HCV screening test for low risk patient Encounter for preprocedure screening laboratory testing for COVID-19 Encounter for surgical aftercare following surgery on the digestive system Essential hypertension Fatigue Frequent falls Generalized weakness GERD (gastroesophageal reflux disease) Hiatal hernia Hyperlipidemia Hypertension Hypothyroidism TSH 1.22 with free T4 at 1.5 on 12/15/2020. TSH 1.19 on 12/25/2021. Insomnia Left arm weakness Low ferritin level (12/25/21)
[2022-08-08 12:00] VITALS: BP 160/86; PULSE 68; RESP 20; O2SAT 100
--- NOTE | 2022-08-08 12:56 | SUR.OPER ---
discharge instructions talked over with pt and spouse. Pt discharged at 1255 and wheeled to personal vehicle.
== END 2022-08-08 12:55 | disposition home or self-care (01) ==
PROVIDERS: PCP Family Medicine; Visit Provider Internal Medicine Cardiovascular Disease
PROC: (CPT 33285; principal; 2022-08-08 11:30)
DX: R55 Syncope and collapse (principal)
CPT/HCPCS: 33285; C1764

== ENCOUNTER 2022-11-21 01:52 | Day surgery (SDC) | payer MEDICARE, SELFPAY ==
[2022-11-08 14:14] VITALS: BMI 22.6
--- NOTE | 2022-11-18 18:04 | WPDANESEPP ---
Anes - Eval Pre Procedure Procedure: Operation Date: 11/21/22 12:30 Proposed Procedures p Colonoscopy - Simon Ordonez MD Date/Time: 11/18/22 18:04 Pre Op Diagnosis: Hx of colon ca, Hx of colon polyps Patient Data Age: 72 Gender: F Height: 1.6 m Weight: 58 kg Allergies Allergy/AdvReac Type Severity Reaction Status Date / Time gadobenic acid Allergy Intermediate Hives & Verified 11/08/22 14:14 [From CONTRAST-MRI] SWELLING latex Allergy Hives Verified 11/08/22 14:14 adhesive tape AdvReac Mild SKIN Verified 11/08/22 14:14 IRRITATION Home Medications Medication Instructions Recorded Confirmed Type vitamin E 268 mg (400 unit) capsule 400 unit PO QAM 10/04/21 11/08/22 History omeprazole 40 mg capsule,delayed 40 mg PO BID #180 caps 01/05/22 11/08/22 Rx release metoprolol succinate 100 mg 100 mg PO QAM #30 tabs 03/16/22 11/08/22 Rx tablet,extended release 24 hr (Toprol XL) oxybutynin chloride 5 mg tablet 5 mg PO BID #180 tabs 03/30/22 11/08/22 Rx duloxetine 60 mg capsule,delayed 60 mg PO DAILY #90 caps 07/01/22 11/08/22 Rx release oxycodone-acetaminophen 5 mg-325 1 tablet PO Q4H PRN pain #40 tabs 07/04/22 11/08/22 Rx mg tablet (Percocet) aspirin 81 mg tablet,delayed 81 mg PO DAILY 07/20/22 11/08/22 History release (Adult Low Dose Aspirin) atorvastatin 20 mg tablet 20 mg PO QAM #90 tabs 07/20/22 11/08/22 Rx losartan 25 mg tablet 25 mg PO DAILY 08/05/22 11/08/22 History eszopiclone 3 mg tablet (Lunesta) 3 mg PO . q.h.s. PRN insomnia #30 08/15/22 11/08/22 Rx tabs levothyroxine 50 mcg tablet 50 mcg PO QAM #90 tabs 11/07/22 11/08/22 Rx Patient hx anesthesia problems: post op nausea/vomiting Family hx anesthesia problems: none Results Review: All pre-operative results and documents have been reviewed as part of the pre-operative evaluation. [facility] Past Medical History Medical History Acute pain of left knee x-ray of the left knee on 01/18/2022 reveals no significant bony defects. Arthritis At high risk for falls BMI 22.0-22.9, adult BMI 23.0-23.9, adult Breast cancer screening by mammogram mammogram on 01/20/2021 was negative. Recheck in 1 year. Normal mammogram 01/24/2022. Cervicalgia Chronic back pain Chronic cough Chronic depression Chronic left hip pain Chronic low back pain with left-sided sciatica Chronic low back pain with right-sided sciatica X-ray of the lumbar spine on 01/18/2022 reveals previous posterior fusion from L3 through S1 unchanged from 08/11/2018 with new severe degenerative disc disease at L2-L3 chronic burst fracture with vertebroplasty at L1 unchanged. Colon cancer screening Colon cancer, ascending Colonic mass (~09/01/21) 25-30 mm mass ascending colon On 09/01/2021. the patient had a right hemicolectomy on 10/13/2021 for adenocarcinoma of the ascending colon. Constipation Elbow contusion Encounter for HCV screening test for low risk patient Encounter for preprocedure screening laboratory testing for COVID-19 Encounter for surgical aftercare following surgery on the digestive system Essential hypertension Fatigue Frequent falls Generalized weakness GERD (gastroesophageal reflux disease) Hiatal hernia Hyperlipidemia Hypertension Hypothyroidism TSH 1.22 with free T4 at 1.5 on 12/15/2020. TSH 1.19 on 12/25/2021. Insomnia Left arm weakness Low ferritin level (12/25/21) ferritin low at 7 with iron 63 with 17% saturation on 12/25/2021. total iron 63 with 17% saturation and ferritin low at 7 with hemoglobin 13.3 12/27/2021. Low iron (12/15/20) iron 51 with 14% saturation and hemoglobin 12.5 on 12/15/2020. Iron 63 with 17% saturation and ferritin low at 7 on 12/27/2021. Mixed hyperlipidemia total cholesterol 207, triglycerides 87, HDL 62, LDL 126 on 12/15/2020. Cholesterol 230, triglycerides 119, HDL 70, LDL 136 on 12/25/2021. Overactive bladder Peripheral neuropathy Postoperati
[2022-11-21 11:10] VITALS: BP 163/89; PULSE 73; RESP 16; TEMP 36.6; O2SAT 100; BMI 22.3
[2022-11-21] MEDS: LACTATED RINGERS 1,000 ML 150 ML IV CONT (11:32)
--- NOTE | 2022-11-21 11:38 | P.PNAN_ITS ---
Anes - Eval Final PreProcedure Day of Procedure 11/21/22 11:38 Patient weight: normal Heart: regular rate and rhythm Lungs: clear to auscultation Airway: Mallampati scale class II Neurological: alert and oriented Last oral intake: >/= 8 hours ASA classification: III Emergent: no Anesthetic plan: proceed Anesthesia type and monitoring: general GIVS and standard monitoring Results Review: All pre-operative results and documents have been reviewed as part of the pre- operative evaluation. Informed Consent: The patient's anesthetic plan and its attendant risks and benefits were discussed with the patient/family/POA. Questions were solicited and answers provided to the satisfaction of the patient/family/POA.
--- NOTE | 2022-11-21 12:06 | PM.HPGS ---
History of Present Illness History of Present Illness Consent: Risks, benefits, and alternatives have been discussed and questions answered. Patient agrees to proceed with procedure. Chief complaint: Hx of colon ca, Hx of colon polyps Narrative: Kaitlin Bond is a 72 year old female with colon cancer 08/2021 s/p rt hemicolectomy, here for surveillance Review of Systems Constitutional: Constitutional: Denies headache(s) and Denies weakness Eyes: Eyes: Denies blurry vision ENT: Reports Normal hearing present, Denies headache(s) and Denies neck pain Cardiovascular: Cardiovascular: Denies chest pain and Denies dyspnea Respiratory: Respiratory: Denies dyspnea Gastrointestinal: Gastrointestinal: Reports no additional gastrointestinal complaints Genitourinary: Genitourinary: Denies dysuria Musculoskeletal: Musculoskeletal: Denies neck pain Integumentary/Breasts: Skin/Breast: Denies dry skin Neurologic: Reports Normal hearing present, Denies headache(s) and Denies weakness Psychiatric: Psychiatric: Denies anxiety Endocrine: Endocrine: Denies change in body appearance Hematologic/Lymphatic: Hematologic/Lymphatic: Denies easy bleeding Allergic/Immunologic: Allergic/Immunologic: Denies urticaria PMFSH Past Medical History Medical History Acute pain of left knee x-ray of the left knee on 01/18/2022 reveals no significant bony defects. Arthritis At high risk for falls BMI 22.0-22.9, adult BMI 23.0-23.9, adult Breast cancer screening by mammogram mammogram on 01/20/2021 was negative. Recheck in 1 year. Normal mammogram 01/24/2022. Cervicalgia Chronic back pain Chronic cough Chronic depression Chronic left hip pain Chronic low back pain with left-sided sciatica Chronic low back pain with right-sided sciatica X-ray of the lumbar spine on 01/18/2022 reveals previous posterior fusion from L3 through S1 unchanged from 08/11/2018 with new severe degenerative disc disease at L2-L3 chronic burst fracture with vertebroplasty at L1 unchanged. Colon cancer screening Colon cancer, ascending Colonic mass (~09/01/21) 25-30 mm mass ascending colon On 09/01/2021. the patient had a right hemicolectomy on 10/13/2021 for adenocarcinoma of the ascending colon. Constipation Elbow contusion Encounter for HCV screening test for low risk patient Encounter for preprocedure screening laboratory testing for COVID-19 Encounter for surgical aftercare following surgery on the digestive system Essential hypertension Fatigue Frequent falls Generalized weakness GERD (gastroesophageal reflux disease) Hiatal hernia Hyperlipidemia Hypertension Hypothyroidism TSH 1.22 with free T4 at 1.5 on 12/15/2020. TSH 1.19 on 12/25/2021. Insomnia Left arm weakness Low ferritin level (12/25/21) ferritin low at 7 with iron 63 with 17% saturation on 12/25/2021. total iron 63 with 17% saturation and ferritin low at 7 with hemoglobin 13.3 12/27/2021. Low iron (12/15/20) iron 51 with 14% saturation and hemoglobin 12.5 on 12/15/2020. Iron 63 with 17% saturation and ferritin low at 7 on 12/27/2021. Mixed hyperlipidemia total cholesterol 207, triglycerides 87, HDL 62, LDL 126 on 12/15/2020. Cholesterol 230, triglycerides 119, HDL 70, LDL 136 on 12/25/2021. Overactive bladder Peripheral neuropathy Postoperative ileus Primary adenocarcinoma of ascending colon (09/01/21) right hemicolectomy 10/13/2021. Radiculitis, cervical Seborrheic keratosis Urinary frequency Urinary frequency volume chart completed Vitamin D deficiency, unspecified (12/15/20) level low at 26 with goal greater than 30 on 12/15/2020 Weight loss, unintentional Surgical History Surgical History History of back surgery lumbosacral fusion Hx of cervical spine surgery Hx of right hemicolectomy 10/13/2021 Family History Family History (Reviewed 08/08/22 @ 11:48 by Bobo Godoy
[2022-11-21 12:29] VITALS: BP 123/70; PULSE 67; RESP 16; O2SAT 100
[2022-11-21 12:39] VITALS: BP 131/75; PULSE 68; RESP 20; O2SAT 100
[2022-11-21 12:49] VITALS: BP 169/80; PULSE 65; RESP 20; O2SAT 100
== END 2022-11-21 12:55 | disposition home or self-care (01) ==
PROVIDERS: PCP Family Medicine; Visit Provider Internal Medicine Gastroenterology
PROC: 0DJD8ZZ Inspection of Lower Intestinal Tract, Via Natural or Artificial Opening Endoscopic (ICD-10-PCS; CPT 45378; principal; 2022-11-21 12:30)
DX: Z08 Encounter for follow-up examination after completed treatment for malignant neoplasm (principal); K64.8 Other hemorrhoids; Z85.038 Personal history of other malignant neoplasm of large intestine; Z98.0 Intestinal bypass and anastomosis status; Z90.49 Acquired absence of other specified parts of digestive tract; G89.29 Other chronic pain; M25.552 Pain in left hip; M54.32 Sciatica, left side; M54.31 Sciatica, right side; I10 Essential (primary) hypertension; K21.9 Gastro-esophageal reflux disease without esophagitis; K63.89 Other specified diseases of intestine; E03.9 Hypothyroidism, unspecified; G47.00 Insomnia, unspecified; E78.2 Mixed hyperlipidemia; G62.9 Polyneuropathy, unspecified; M54.12 Radiculopathy, cervical region; L82.1 Other seborrheic keratosis; Z87.891 Personal history of nicotine dependence; Z79.82 Long term (current) use of aspirin; Z79.891 Long term (current) use of opiate analgesic
CPT/HCPCS: 45378; J2704; J7120

== ENCOUNTER → 2022-12-28 08:38 | Outpatient (CLI) | payer MEDICARE, SELFPAY ==
--- NOTE | ~2022-12-28 | CT_ITS ---
Clinical Indication: Colon cancer CT Scan of the Chest, Abdomen, and Pelvis with Contrast: Technique: Contiguous sections were acquired throughout the chest, abdomen, and pelvis after intraven ous administration of 100 cc of Omnipaque 350. Dose reduction technique was used on this scan by rochelle petersing automated exposure control and iterative reconstruction technique. The dose-length product (DL P) was 495.63 mGy-cm. COMPARISON: 10/24/2021 Findings: There is no evidence of any significant mediastinal, hilar or axillary lymphadenopathy. The mediastin al soft tissues and vascular structures appear normal. There is no evidence of pleural or pericardial effusion. There are grouped subcentimeter nodules in the peripheral left upper lobe (axial images 34-38). There is similar appearance focally in the right middle lobe. The liver, spleen, pancreas, gallbladder, adrenals and kidneys are within normal limits. No evidence of aortic aneurysm. No lymphadenopathy. Probable wall thickening of the distal rectum. No bowel obstruction. No abscess or free air. Evidence of prior right partial colectomy. Urinary bladder is unremarkable. No pelvic mass evident. No ascites. L1 compression fracture present with vertebroplasty cement. Impression: Probable wall thickening of the distal rectum. Infectious/inflammatory and neoplastic etiologies are diagnostic considerations. Correlate clinically. Consider sigmoidoscopy as indicated. Grouped subcentimeter nodules in the left upper lobe and right middle lobe, most consistent with infe ctious etiology. Neoplastic disease less likely given the overall distribution of findings. Reviewed, dictated and finalized at [facility]. Impression: Probable wall thickening of the distal rectum. Infectious/inflammatory and neop lastic etiologies are diagnostic considerations. Correlate clinically. Consider sigmoidoscopy as indicated. Grouped subcentimeter nodules in the left upper lobe and right middle lobe, mos t consistent with infectious etiology. Neoplastic disease less likely given the overall distribution of findings.
[2022-12-28 09:02] LABS: Estimated Glomerular Filt Rate > 60
== END ==
PROVIDERS: PCP Family Medicine; Visit Provider Surgery
DX: C18.2 Malignant neoplasm of ascending colon (principal); R91.8 Other nonspecific abnormal finding of lung field
CPT/HCPCS: 71260; 74177; Q9967

== ENCOUNTER 2023-05-10 13:04 | Outpatient (CLI) | payer MEDICARE, SELFPAY ==
--- NOTE | ~2023-05-10 | MM_ITS ---
EXAMINATION: MM screening germain BI w katie HISTORY: Screening mammogram TECHNIQUE: Craniocaudal and mediolateral oblique 3-D tomosynthesis images were obtained and synthetic 2-D images were generated. CAD analysis was submitted and interpreted. COMPARISON: 01/24/2022, 01/20/2021, 11/21/2019 BREAST PARENCHYMAL COMPOSITION: There are scattered areas of fibroglandular density. FINDINGS: There has been interval insertion of a cardiac loop recorder in the medial left breast. No suspicious mass, calcification, or architectural distortion are identified in either breast to sugges t malignancy. There has been no suspicious interval change. IMPRESSION: 1. No mammographic evidence of malignancy. 2. Recommend routine screening mammography in one year. BI-RADS Category 1: Negative Reviewed, dictated and finalized at location A. [employer]
== END 2023-05-10 13:05 | disposition home or self-care (01) ==
PROVIDERS: PCP Family Medicine; Visit Provider Family Medicine
DX: Z12.31 Encounter for screening mammogram for malignant neoplasm of breast (principal)
CPT/HCPCS: 77063; 77067

== ENCOUNTER 2023-05-11 08:01 | Outpatient (CLI) | payer MEDICARE, SELFPAY ==
--- NOTE | ~2023-05-11 | XR_ITS ---
EXAMINATION: XR barium swallow modified DATE: 05/11/2023 09:27 INDICATION: Dysphagia to thin liquids TECHNIQUE: Modified barium esophagram was performed by myself who administered fluoroscopy, in conju nction with speech pathologist who administered barium in varying consistencies as per speech patholo gist documentation. This was recorded on tape. A single fluoroscopic spot image was recorded. Fluoros copy exposure time was 1.9 minutes. The DAP for this procedure was 1.316 Gycm2. FINDINGS: Oral stage: Adequate function. Pharyngeal phase: Reduced laryngeal elevation. Laryngeal penetration: Trace with thin liquids. Aspiration: None. Laryngeal sensitivity: Absent. IMPRESSION: Abnormal modified barium swallow. Please refer to speech pathologist findings and specifi c feeding recommendations. Reviewed, dictated and finalized at location A. TER PILOT IMPRESSION: Abnormal modified barium swallow. Please refer to speech pathologis t findings and specific feeding recommendations.
--- NOTE | 2023-05-12 10:55 | REHSTMBS ---
Assessment and note entered by Anamaria Modi, MARIONETTE PERFORMER Modified Barium Swallow Evaluation Feeding Type Recommended Oral Food Consistency Regular, Level 7 Liquid Consistency Mildly Thick (2) Treatment Recommendations Effortful Swallow,Laryngeal Elevation Exerc, Jyo Maneuver,Tongue Base Exercise ST Clinical Summary MODIFIED BARIUM SWALLOW STUDY This patient was seen for a Modified Barium Swallow study at the request of her physician. Patient reports a history of spinal surgeries, with the last being four years ago, but stated that she has noticed she has been becoming strangled on thin liquids for about the past six months. She denies difficulty swallowing solid foods at this time. Today the patient was viewed in the lateral position to the level of C5/C6. She was presented with a small sip and then uncontrolled amount of thin liquid contrast medium, and then mildly thick liquid contrast medium, then pudding mixed with semi-solid contrast medium, along with a portion of cracker coated with the semi-solid contrast medium. She exhibited trace penetration on uncontrolled thin liquid however it also looked as if there was slight penetration on a second swallowing of the pudding mixture when she was attempting to clear pooled/penetrated material. Results indicate this patient is at risk for penetration/aspiration especially on thin liquids as she complains the most about coughing/ strangling when drinking thin liquids. Penetration is caused by reduced laryngeal elevation. Patient would benefit from the use of thickener in her liquids to the level of Mildly/[place] Thick Liquids, Level 2. She was instructed in the use of gel thickener and how to purchase thickener. She may also benefit from head flexion to assist with preventing penetration of liquids into the airway. Patient may also benefit from direct Speech Therapy for swallowing strengthening exercises. Please order outpatient Speech Therapy at [facility] if you are in agreement. Thank you for this referral.
== END 2023-05-11 08:02 | disposition home or self-care (01) ==
PROVIDERS: PCP Family Medicine; Visit Provider Nurse Practitioner Family
DX: R13.10 Dysphagia, unspecified (principal); R93.3 Abnormal findings on diagnostic imaging of other parts of digestive tract
CPT/HCPCS: 92611

== ENCOUNTER 2023-05-23 09:14 | Outpatient (CLI) | payer MEDICARE, SELFPAY ==
--- NOTE | ~2023-05-23 | XR_ITS ---
EXAMINATION: XR UGIAC w barium swallow DATE: 05/23/2023 10:31 INDICATION: Dysphagia. TECHNIQUE: The patient drank thick barium, gas-producing crystals, and thin barium. Fluoroscopic spot radiographs of the hypopharynx, esophagus, stomach and proximal small bowel were obtained. Fluorosco py exposure time was 2.6 minutes. A total of 1782 images were recorded. Total DAP was 10.995 Gycm^2 COMPARISON: None. FINDINGS: The pharynx is symmetric and without evidence of mass lesion or mucosal irregularity. There is a prom inent cricopharyngeal bar at the pharyngeal esophageal junction. The esophagus is otherwise normal wi thout mass or stricture. Esophageal motility is normal. Small sliding-type hiatal hernia with gastroe sophageal junction 3 cm above level of the diaphragm. There was no gastroesophageal reflux with provo cative maneuvers. The stomach is normal. There is a small diverticulum arising from the second portio n of the duodenum. Visualized proximal small bowel is otherwise unremarkable. L1 vertebroplasty. Part ially visualized instrumentation for a combined anterior and posterior spinal fusion in the mid to lo wer lumbar spine. Left pectoral implantable media monitor. Additional anterior plate and screw fixa tion for lower cervical anterior spinal fusion. IMPRESSION: 1. Small sliding-type hiatal hernia without gastroesophageal reflux with provocative maneuvers. 2. Prominent cricopharyngeal bar at the pharyngeal esophageal junction. 2. Small duodenal diverticulum. Reviewed, dictated and finalized at location A. CAL OFFICE TECHNOLOGY INSTRUCTOR IMPRESSION: 1. Small sliding-type hiatal hernia without gastroesophageal reflux with provoc ative maneuvers. 2. Prominent cricopharyngeal bar at the pharyngeal esophageal junction. 2. Small duodenal diverticulum.
== END 2023-05-23 09:15 | disposition home or self-care (01) ==
PROVIDERS: PCP Family Medicine; Visit Provider Nurse Practitioner Family
DX: K44.9 Diaphragmatic hernia without obstruction or gangrene (principal); K57.10 Diverticulosis of small intestine without perforation or abscess without bleeding
CPT/HCPCS: 74246

== ENCOUNTER 2023-06-27 12:30 | Outpatient (RCR) | payer MEDICARE, SELFPAY ==
--- NOTE | 2023-06-05 14:03 | STOPEVAL1 ---
Assessment and note entered by Anamaria Modi QUALITATIVE FIELD COORDINATOR Evaluation Information Assessment Status Evaluation Reported Pain Level Pain Score 0: Self Report Assessment ST Clinical Summary SWALLOW EVALUATION The patient reports that she gets strangled all the time in the morning on her coffee. She denied any difficulty swallowing solid foods but admits to also getting strangled on mixed consistencies such as broth soups with chewable items such as meat/vegetables, and cereal in milk. Patient stated also that she feels her voice has become softer over time and that her has difficulty hearing her at times. The patient reviewed the results of the Modified Barium Swallow study with therapist. Results were placed in writing, including that she had trace penetration on thin liquids, and then one slight episode of trace penetration given a bite of pudding; she swallowed some of the pudding, and when she triggered a secondary swallow to clear oral residue, there was trace penetration at that time. Patient voiced understanding of results and voiced understanding that these results are most likely commensurate with how she is swallowing at home. Additionally, the recommendations were reviewed including head flexion to prevent aspiration and use of thickener to also prevent aspiration. Patient stated she recalled the instructions for head flexion but that she does not use it consistently because it didn't help much and she denied being instructed about use of gel thickener, which is most likely true as therapist instructed the about the use of thickener. On a side note, patient stated that they did not purchase any because she decided she was not interested in using it; this does indicate, however, that patient's did discuss the use of thickener with her at some point. Today the patient was instructed in the use of three initial swallowing exercises including, hard, effortful swallow with chin tuck against resistance, sustaining a loud ah sound for as long as possible, and sustaining an ee sound at a high pitch for as long as possible. Therapist demonstrated and desc
--- NOTE | 2023-06-05 14:04 | STOPEVAL1 ---
Assessment and note entered by Anamaria Modi RAILROAD PASSENGER AGENT Evaluation Information Assessment Status Evaluation Reported Pain Level Pain Score 0: Self Report Assessment ST Clinical Summary SWALLOW EVALUATION The patient reports that she gets strangled all the time in the morning on her coffee. She denied any difficulty swallowing solid foods but admits to also getting strangled on mixed consistencies such as broth soups with chewable items such as meat/vegetables, and cereal in milk. Patient stated also that she feels her voice has become softer over time and that her has difficulty hearing her at times. The patient reviewed the results of the Modified Barium Swallow study 05/11/23 with therapist. Results were placed in writing, including that she had trace penetration on thin liquids, and then one slight episode of trace penetration given a bite of pudding; she swallowed some of the pudding, and when she triggered a secondary swallow to clear oral residue, there was trace penetration at that time. Patient voiced understanding of results and voiced understanding that these results are most likely commensurate with how she is swallowing at home. Additionally, the recommendations were reviewed including head flexion to prevent aspiration and use of thickener to also prevent aspiration. Patient stated she recalled the instructions for head flexion but that she does not use it consistently because it didn't help much and she denied being instructed about use of gel thickener, which is most likely true as therapist instructed the about the use of thickener. On a side note, patient stated that they did not purchase any because she decided she was not interested in using it; this does indicate, however, that patient's did discuss the use of thickener with her at some point. Today the patient was instructed in the use of three initial swallowing exercises including, hard, effortful swallow with chin tuck against resistance, sustaining a loud ah sound for as long as possible, and sustaining an ee sound at a high pitch for as long as possible. Therapist demonstrate
--- NOTE | 2023-06-06 11:58 | OPREHPOC ---
Outpatient Therapy Plan of Care This is a Multidisciplinary Plan of Care that may contain components documented by all disciplines (PT, OT, and ST.) ST Problem 1 ST Problem #[address] Goal 1 Goal 1. Demonstrate and voice understanding of anatomy and physiology of the swallowing, purposes of exercises, and home exercise program. Target Visit [address] Problem #[address] Goal 1 Goal 1. Patient will complete base of tongue retraction exercises, laryngeal adduction exercises, and laryngeal elevation exercises up to 10 repetitions per session in order to improve epiglottal inversion, vocal cord closure, and base of tongue retraction while swallowing to prevent aspiration. Target Visit 8 ST Goal 2 Goal Patient will voice and demonstrate good understanding of safe swallowing techniques including use of head flexion to prevent aspiration. Target Visit 8
--- NOTE | 2023-06-16 10:10 | PCSTNOTE ---
The patient treatment was not able to be completed on 06/16 due to unknown but at patient request; planned on travelling today and unable to bring her; possibly left early due to threat of inclement weather today. Will plan to continue treatment per plan of care.
--- NOTE | 2023-06-29 14:20 | PCSTNOTE ---
The patient treatment was not able to be completed on due to falling and hurting head. Discharge was being considered for today. Therapist will contact patient to see if she wants to return or if she wants to discontinue at this time.
--- NOTE | 2023-07-12 12:53 | STOPDC ---
Assessment and note entered by Anamaria Modi RAMP AGENT Evaluation Information Assessment Status Discharge - Pt Not Presen Assessment ST Clinical Summary DISCHARGE SUMMARY This patient was seen for a Speech Therapy evaluation 06/05 after having a Modified Barium Swallow study on 05/11/23 which revealed trace penetration on thin liquids and one brief instance of penetration on pudding thick material. At that time, patient reported frequent and consistent coughing on her coffee in the morning, which persisted throughout these treatment sessions until the last session when she reported she was using head flexion more consistently and taking small sips. Patient was seen for six treatments for instruction of safe swallowing techniques including head flexion, and swallowing strengthening exercises to decrease the risk for aspiration. She completed exercises with good strength and voiced and demonstrated good understanding of these exercises and swallowing guidelines. On the last expected day of direct Speech Therapy, patient contacted our office and stated that she fell and would not be coming in that day, and that since she was expected to discharge with that session, she probably would not be returning. This speech pathologist contacted patient and left voice mail to call back and confirm discharge however therapist was not informed of a return call and therefore she is being discharged from direct Speech Therapy with goals essentially achieved. Plan of Care ST Services Indicated No
== END 2023-07-12 13:59 | disposition home or self-care (01) ==
LOC: ANHST 12:30
PROVIDERS: PCP Family Medicine; Visit Provider Nurse Practitioner Family
DX: R13.10 Dysphagia, unspecified (principal)
CPT/HCPCS: 92526; 92610

== ENCOUNTER 2023-08-29 11:14 | Outpatient (CLI) | payer MEDICARE, SELFPAY ==
--- NOTE | ~2023-08-29 | CT_ITS ---
CT head without contrast Indication: Headache COMPARISON: 10/18/2021 Technique: Serial scans were obtained through the brain without the administration of contrast. Dose reduction technique was used on this scan by utilizing automated exposure control and iterative recon struction technique. The dose-length product (DLP) was 599.57 mGy-cm. Findings: There is no evidence of intracranial hemorrhage, mass lesion, or acute infarct. The ventri cles and subarachnoid spaces are dilated, consistent with mild atrophy. Low attenuation regions are seen within the periventricular white matter bilaterally, likely representing changes from chronic mi crovascular ischemic disease. There is no evidence of edema, mass effect or midline shift. The visu alized paranasal sinuses and mastoid air cells are clear. Impression: No intracranial hemorrhage, mass, or acute infarct. Atrophy and chronic white matter changes, as above. Reviewed, dictated and finalized at location . Impression: No intracranial hemorrhage, mass, or acute infarct. Atrophy and chronic white matter changes, as above.
== END 2023-08-29 11:15 ==
LOC: MICIMG 11:15
PROVIDERS: PCP Surgery; Visit Provider Nurse Practitioner Family
DX: R51.9 Headache, unspecified (principal); R90.82 White matter disease, unspecified
CPT/HCPCS: 70450

== ENCOUNTER 2023-10-11 12:11 | Emergency (ER) | payer MEDICARE, SELFPAY ==
--- NOTE | ~2023-10-11 | CT_ITS ---
EXAMINATION: CT femur RT wo con DATE: 10/11/2023 13:15 INDICATION: Right thigh hematoma TECHNIQUE: High resolution computed tomography (CT) of the right thigh was performed without intraven ous contrast. Additional sagittal and coronal reconstructions were performed. The mA was adjusted acc ording to patient size. Iterative reconstruction technique was employed. The dose-length product was 981.04 mGy-cm. COMPARISON: None FINDINGS: Relatively high attenuation lobular subcutaneous lesion at the anteromedial aspect of the distal righ t thigh consistent with provided history of hematoma which measures 6.8 cm craniocaudally and 5.3 x 2 .8 cm in maximal transaxial dimensions. There is stranding mild stranding in the subcutaneous fat of the distal thigh. Bone alignment is normal. No fracture. Mild osteoarthritis at the right hip with steward barticular cystlike change at the medial compartment of the right knee also likely related to likely mild osteoarthritis of the severity of joint space narrowing can be underestimated on nonweightbearin g imaging. No knee or hip joint effusion. There are atherosclerotic calcifications extending along th e right superficial femoral artery. The soft tissues and the muscular compartments of the right thigh are unremarkable with no stranding in the deeper surrounding fat. The uterus is not identified and h as likely been surgically resected. Bladder and visualized portions of bowels are unremarkable. No pa thologically enlarged right pelvic or inguinal lymphadenopathy. IMPRESSION: 1. 6.8 x 5.3 x 2.8 cm subcutaneous hematoma at the anteromedial aspect of the distal right thigh. Reviewed, dictated and finalized at location A. IMPRESSION: 1. 6.8 x 5.3 x 2.8 cm subcutaneous hematoma at the anteromedial aspect of the d istal right thigh.
[2023-10-11 12:21] VITALS: BP 143/79; PULSE 79; RESP 18; TEMP 36.8; O2SAT 97
--- NOTE | 2023-10-11 12:52 | ED.GENADULT ---
HPI - General Adult General Chief complaint: Skin/Abscess/Foreign Body <Abel Grant PA-C - Last Filed: 10/11/23 18:04> Stated complaint: bruise on right thigh <SALLY Somers Last Filed: 10/11/23 18:04> Time Seen by Provider: 10/11/23 12:16 <SALLY Somers Last Filed: 10/11/23 18:04> Source: patient <SALLY Somers Last Filed: 10/11/23 18:04> Mode of arrival: ambulatory <SALLY Somers Last Filed: 10/11/23 18:04> Limitations: no limitations <SALLY Somers Last Filed: 10/11/23 18:04> History of Present Illness HPI narrative: This is a 73-year-old female who presents to the ED for chief complaint of significant bruising to the right thigh after fall that occurred 2 days ago. Patient reports a knot to the right medial thigh. States that the bruising was initially present but seems to be spreading throughout the thigh. Endorses mild discomfort intermittently but no current pain. Denies any further sites of pain or injury from the fall. Denies LOC denies fevers, chills, lower leg pain or swelling. states she takes aspirin but no other blood thinner <SALLY Somers Last Filed: 10/11/23 18:04> Related Data Home medications: Home Medications Medication Instructions Recorded Confirmed vitamin E 268 mg (400 unit) capsule 400 unit PO QAM 10/04/21 08/23/23 aspirin 81 mg tablet,delayed 81 mg PO DAILY 07/20/22 08/23/23 release (Adult Low Dose Aspirin) losartan 25 mg tablet 25 mg PO DAILY 08/05/22 08/23/23 diclofenac sodium 1 % topical gel 2 g topical QID 01/24/23 08/23/23 (Voltaren Arthritis Pain) cyanocobalamin (vitamin B-12) 1,000 mcg PO DAILY 07/02/23 08/23/23 1,000 mcg tablet <ASLLY Somers Last Filed: 10/11/23 18:04> Allergies/adverse reactions: Allergies Allergy/AdvReac Type Severity Reaction Status Date / Time gadobenic acid Allergy Intermediate Hives & Verified 10/11/23 12:14 [From CONTRAST-MRI] SWELLING iohexol Allergy Hives Verified 10/11/23 12:56 [From contrast - CT, X-RAY] latex Allergy Hives Verified 10/11/23 12:14 adhesive tape AdvReac Mild SKIN Verified 10/11/23 12:14 IRRITATION <Abel Grant PA-C - Last Filed: 10/11/23 18:04> Review of Systems Review of Systems: All systems as dictated in HPI <Abel Grant PA-C - Last Filed: 10/11/23 18:04> [facility] Past Medical History Medical History: Medical History (Updated 10/11/23 @ 15:38 by Abel Grant PA-C) Acute pain of left knee x-ray of the left knee on 01/18/2022 reveals no significant bony defects. Arthritis At high risk for falls Black tongue BMI 22.0-22.9, adult BMI 23.0-23.9, adult Breast cancer screening by mammogram mammogram on 01/20/2021 was negative. Recheck in 1 year. Normal mammogram 01/24/2022. Normal mammogram 05/10/2023. Cervicalgia Chronic back pain Chronic cough Chronic depression Chronic left hip pain Chronic low back pain with left-sided sciatica Chronic low back pain with right-sided sciatica X-ray of the lumbar spine on 01/18/2022 reveals previous posterior fusion from L3 through S1 unchanged from 08/11/2018 with new severe degenerative disc disease at L2-L3 chronic burst fracture with vertebroplasty at L1 unchanged. Colon cancer screening Colon cancer, ascending Colonic mass (~09/01/21) 25-30 mm mass ascending colon On 09/01/2021. the patient had a right hemicolectomy on 10/13/2021 for adenocarcinoma of the ascending colon. Constipation Dysphagia Elbow contusion Encounter for HCV screening test for low risk patient (12/28/22) Hepatitis C screening was negative on 12/28/2022. hepatitis C screening was negative on 06/27/2023. Encounter for preprocedure screening laboratory testing for COVID-19 Encounter for surgical aftercare following surgery on the digestive system Essential hypertension Fatigue Frequent falls Generalized weakness GERD (gastroesophageal reflux disea
[2023-10-11 13:09] LABS: Basophils Percent Auto 0.2 % (0.2-1.2); Eosinophils Percent Auto 0.7 % (0-4.4); Hematocrit 33.2 % (37.0-47.0); Hemoglobin 10.9 g/dL (12.0-15.0); Immature Granulocyte Absolute 0.01 K/mm3 (0.00-0.031); Immature Granulocyte Percent A 0.2 % (0-0.5); Lymphocytes Absolute Auto 1.31 K/mm3 (0.9-3.2); Lymphocytes Percent Auto 22.4 % (18.3-44.2); Mean Corpuscular HGB Conc 32.8 g/dl (32-36); Mean Corpuscular Hemoglobin 30.2 pg (26-34); Mean Platelet Volume 9.3 fl (7.4-10.4); Monocytes Absolute Auto 0.5 K/mm3 (0.1-0.6); Monocytes Percent Auto 8.2 % (2.6-8.5); Neutrophils Percent Auto 68.3 % (45.5-73.1); Platelet Count Result 261 k/mm3 (150-375); Red Blood Count 3.61 M/mm3 (4.2-5.4); Red Cell Distribution Width 14.1 % (11.5-14.5); White Blood Count 5.9 K/mm3 (4.5-10.0)
[2023-10-11 13:20] LABS: Alanine Aminotransferase 15 U/L (6-35); Albumin Level 3.9 g/dL (3.5-5.1); Alkaline Phosphatase 66 U/L (38-126); Anion Gap 2 mmol/L (4-12); Aspartate Amino Transferase 21 U/L (14-36); Bilirubin,Total 0.7 mg/dL (0.2-1.3); Blood Urea Nitrogen 10 mg/dL (7-17); Calcium 8.7 mg/dL (8.4-10.2); Carbon Dioxide 31 mmol/L (22-30); Chloride 100 mmol/L (98-107); Estimated CRCL calculation 57 ml/min; Estimated Glomerular Filt Rate > 60; Glucose 92 mg/dL (65-110); Potassium 4.1 mmol/L (3.4-5.0); Sodium 133 mmol/L (137-145)
[2023-10-11 13:22] LABS: Partial Thromboplastin Time 24.8 Seconds (22.3-36.8); Prothrombin Time 13.3 Seconds (11.1-14.7)
[2023-10-11 15:54] VITALS: BP 149/76; PULSE 75; RESP 18; O2SAT 98
== END 2023-10-11 15:56 | disposition home or self-care (01) ==
PROVIDERS: Emergency Provider Physician Assistant; PCP Family Medicine
DX: S70.11XA Contusion of right thigh, initial encounter (principal); I10 Essential (primary) hypertension; E03.9 Hypothyroidism, unspecified; E78.2 Mixed hyperlipidemia; E53.8 Deficiency of other specified B group vitamins; E55.9 Vitamin D deficiency, unspecified; N32.81 Overactive bladder; K44.9 Diaphragmatic hernia without obstruction or gangrene; K21.9 Gastro-esophageal reflux disease without esophagitis; G62.9 Polyneuropathy, unspecified; M19.90 Unspecified osteoarthritis, unspecified site; Z87.440 Personal history of urinary (tract) infections; Z87.891 Personal history of nicotine dependence; Z79.82 Long term (current) use of aspirin; Z79.02 Long term (current) use of antithrombotics/antiplatelets; Z79.899 Other long term (current) drug therapy; W19.XXXA Unspecified fall, initial encounter
CPT/HCPCS: 36415; 73700; 80053; 85025; 85610; 85730; 99284

== ENCOUNTER 2024-01-22 09:33 | Emergency (ER) | payer MEDICARE, SELFPAY ==
--- NOTE | ~2024-01-22 | CT_ITS ---
EXAMINATION: CT chest abdomen pelvis wo con DATE: 01/22/2024 10:44 INDICATION: Left abdominal pain. Left rib pain. Fall. TECHNIQUE: Computed tomography (CT) of the chest, abdomen, and pelvis was performed without intraveno us contrast. Automated exposure control and iterative reconstruction technique were employed. The dos e-length product was 611.57 mGy-cm. COMPARISON: CT chest, abdomen, and pelvis 12/28/2022 FINDINGS: CHEST CT: The lung zones are mild atelectasis. Calcified pulmonary nodules and calcified hilar lymph nodes are consistent with old granulomatous disease. There are few pulmonary nodules measuring up to 3 mm, like ly benign. No pleural effusion. The heart size is normal. There is a closure device at left atrial ap pendage. No pericardial effusion. There are coronary artery calcifications. There is a small sliding hernia. There is thoracic dextrocurvature. There is severe thoracic spondylosis. There is an old heal ed fracture of left seventh rib. There is an electronic implant in left anterior chest wall. There is chronic anterior wedging of T7 vertebral body. ABDOMEN/PELVIS CT: The liver, gallbladder, spleen, pancreas, adrenal glands, and kidneys are normal. There is no urolith iasis. There is a large volume of stool in the colon. There are no dilated loops of bowel. There are changes of right hemicolectomy. There are no pathologically enlarged lymph nodes. There is no free in traperitoneal fluid. There is a chronic burst fracture of L1 with changes of vertebroplasty. There ar e changes of anterior posterior fusion procedures from L3 to S1. There is severe lumbar spondylosis. IMPRESSION: 1. No acute posttraumatic findings. Reviewed, dictated and finalized at location A.
--- NOTE | ~2024-01-22 | XR_ITS ---
EXAMINATION: XR forearm LT 2V DATE: 01/22/2024 10:53 INDICATION: Left forearm injury. TECHNIQUE: 2 views of left forearm were obtained. COMPARISON: None. FINDINGS: Alignment is normal. No fracture. There is at least moderate osteoarthritis of triscaphe zainab int and first carpometacarpal joint. No elbow joint effusion. IMPRESSION: 1. No fracture. Reviewed, dictated and finalized at location A. IMPRESSION: 1. No fracture.
--- NOTE | ~2024-01-22 | CT_ITS ---
CT head without contrast Indication: Head injury COMPARISON: 08/29/2023 Technique: Serial scans were obtained through the brain without the administration of contrast. Dose reduction technique was used on this scan by utilizing automated exposure control and iterative recon struction technique. The dose-length product (DLP) was 605.33 mGy-cm. Findings: There is no evidence of intracranial hemorrhage, mass lesion, or acute infarct. The ventri cles and subarachnoid spaces are dilated, consistent with moderate atrophy. Low attenuation regions are seen within the periventricular white matter bilaterally, likely representing changes from chroni c microvascular ischemic disease. There is no evidence of edema, mass effect or midline shift. The visualized paranasal sinuses and mastoid air cells are clear. Impression: No intracranial hemorrhage, mass, or acute infarct. Atrophy and chronic white matter changes, as above. Reviewed, dictated and finalized at location . Impression: No intracranial hemorrhage, mass, or acute infarct. Atrophy and chronic white matter changes, as above.
--- NOTE | ~2024-01-22 | XR_ITS ---
EXAMINATION: XR hand LT min 3V DATE: 01/22/2024 11:11 INDICATION: Left hand injury and pain. TECHNIQUE: 3 views of left hand were obtained. COMPARISON: None. FINDINGS: Alignment is normal. No fracture. There is severe osteoarthritis of triscaphe joint and fir st carpometacarpal joint. There is mild to moderate osteoarthritis of all of the interphalangeal join ts, worst in first interphalangeal joint and fifth distal interphalangeal joint. IMPRESSION: 1. Polyarticular osteoarthritis. Reviewed, dictated and finalized at location A.
[2024-01-22 09:39] VITALS: BP 149/88; PULSE 69; RESP 17; TEMP 36.6; O2SAT 100
--- NOTE | 2024-01-22 09:46 | ED.ABDPAIN ---
HPI - Abdominal Pain General Chief Complaint: Abdominal Pain Stated Complaint: LLQ abd pain Time Seen by Provider: 01/22/24 09:45 Source: patient Mode of arrival: ambulatory Limitations: no limitations History of Present Illness HPI narrative: Patient is a 73 y/o female who presents to the ED with c/o L lower abdominal pain. patient reports pain began last night. Radiates around to her left lower back. Present throughout this morning as well. Pain is intermittent. Worse with movement. She has not taken anything for the pain. Denies history of similar pain. She reports having intermittent nausea and vomiting with any eating over the last 3 weeks. She notes history of GERD and states she assumed it was related to this. She is on omeprazole for GERD. Denies diarrhea, constipation, rectal bleeding, melena, fevers. 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 She does have a walker and an electric wheelchair. Has bruising to her left arm currently. Denies significant pain. Denies injuring her abdomen in any of the recent falls. Denies recent head injury. No anticoagulation. Related Data Home Medications Medication Instructions Recorded Confirmed vitamin E 268 mg (400 unit) capsule 400 unit PO QAM 10/04/21 08/23/23 aspirin 81 mg tablet,delayed 81 mg PO DAILY 07/20/22 08/23/23 release (Adult Low Dose Aspirin) losartan 25 mg tablet 25 mg PO DAILY 08/05/22 08/23/23 diclofenac sodium 1 % topical gel 2 g topical QID 01/24/23 08/23/23 (Voltaren Arthritis Pain) cyanocobalamin (vitamin B-12) 1,000 mcg PO DAILY 07/02/23 08/23/23 1,000 mcg tablet Allergies Allergy/AdvReac Type Severity Reaction Status Date / Time gadobenic acid Allergy Intermediate Hives & Verified 01/22/24 09:45 [From CONTRAST-MRI] SWELLING iohexol Allergy Hives Verified 01/22/24 09:45 [From contrast - CT, X-RAY] latex Allergy Hives Verified 01/22/24 09:45 adhesive tape AdvReac Mild SKIN Verified 01/22/24 09:45 IRRITATION Review of Systems Review of Systems: All systems reviewed & are unremarkable except as noted in HPI. All systems reviewed & are unremarkable except as noted in HPI and below PMFSH Past Medical History Medical History Acute pain of left knee x-ray of the left knee on 01/18/2022 reveals no significant bony defects. Arthritis At high risk for falls Black tongue BMI 22.0-22.9, adult BMI 23.0-23.9, adult Breast cancer screening by mammogram mammogram on 01/20/2021 was negative. Recheck in 1 year. Normal mammogram 01/24/2022. Normal mammogram 05/10/2023. Cervicalgia Chronic back pain Chronic cough Chronic depression Chronic left hip pain Chronic low back pain with left-sided sciatica Chronic low back pain with right-sided sciatica X-ray of the lumbar spine on 01/18/2022 reveals previous posterior fusion from L3 through S1 unchanged from 08/11/2018 with new severe degenerative disc disease at L2-L3 chronic burst fracture with vertebroplasty at L1 unchanged. Colon cancer screening Colon cancer, ascending Colonic mass (~09/01/21) 25-30 mm mass ascending colon On 09/01/2021. the patient had a right hemicolectomy on 10/13/2021 for adenocarcinoma of the ascending colon. Constipation Dysphagia Elbow contusion Encounter for HCV screening test for low risk patient (12/28/22) Hepatitis C screening was negative on 12/28/2022. hepatitis C screening was negative on 06/27/2023. Encounter for preprocedure screening laboratory testing for COVID-19 Encounter for surgical aftercare following surgery on the digestive system Essential hypertension Fatigue Frequent falls Generalized weakness GERD (gastroesophageal reflux disease) Hiatal hernia Hyperlipidemia Hypertension Hypothyroidism TSH 1.22 with free T4 at 1.5 on 12/15/2020. TSH 1.19 on 12/25/2021. TSH 0.77 on 06/27/2023. Insomnia Left arm weaknes
[2024-01-22 10:14] LABS: Add Urine Microscopic? YES; Appearance Urine Clear (Clear); Bacteria Urine None Seen /hpf; Bilirubin Urine Negative (Negative); Blood Urine Negative (Negative); Color Urine Yellow (Yellow); Glucose Urine UA Negative (Negative); Ketones Urine Negative (Negative); Leukocyte Esterase Ur Trace LEU/UL (Negative); Nitrate Urine Negative (Negative); Non Pathogenic Casts 0-2; Protein Urine Negative (Negative); RBC Urine 0-2 /hpf (0-2); Specific Grav Ur 1.019 (1.001-1.035); Squamous Epithelial Cell Urine None Seen /hpf (Few); WBC Urine 0-5 /hpf (0-3); pH Urine 7.5 (5.0-9.0)
[2024-01-22 10:20] LABS: Basophils Percent Auto 0.2 % (0.2-1.2); Eosinophils Percent Auto 0.7 % (0-4.4); Hematocrit 35.4 % (37.0-47.0); Hemoglobin 11.7 g/dL (12.0-15.0); Immature Granulocyte Absolute 0.01 K/mm3 (0.00-0.031); Immature Granulocyte Percent A 0.2 % (0-0.5); Lymphocytes Absolute Auto 1.12 K/mm3 (0.9-3.2); Lymphocytes Percent Auto 18.9 % (18.3-44.2); Mean Corpuscular HGB Conc 33.1 g/dl (32-36); Mean Corpuscular Hemoglobin 30.5 pg (26-34); Mean Corpuscular Volume 92.4 fl (80-100); Mean Platelet Volume 9.3 fl (7.4-10.4); Monocytes Absolute Auto 0.4 K/mm3 (0.1-0.6); Monocytes Percent Auto 7.1 % (2.6-8.5); Neutrophils Absolute Auto 4.3 K/mm3 (1.3-6.7); Neutrophils Percent Auto 72.9 % (45.5-73.1); Platelet Count Result 303 k/mm3 (150-375); Red Blood Count 3.83 M/mm3 (4.2-5.4); Red Cell Distribution Width 13.4 % (11.5-14.5); White Blood Count 5.9 K/mm3 (4.5-10.0)
[2024-01-22 10:32] LABS: Alanine Aminotransferase 15 U/L (6-35); Alkaline Phosphatase 76 U/L (38-126); Anion Gap 7 mmol/L (4-12); Aspartate Amino Transferase 23 U/L (14-36); Bilirubin,Total 0.4 mg/dL (0.2-1.3); Blood Urea Nitrogen 11 mg/dL (7-17); Carbon Dioxide 31 mmol/L (22-30); Chloride 95 mmol/L (98-107); Estimated CRCL calculation 57 ml/min; Estimated Glomerular Filt Rate > 60; Glucose 98 mg/dL (65-110); Lipase 47 U/L (23-300); Potassium 3.8 mmol/L (3.4-5.0); Sodium 133 mmol/L (137-145)
[2024-01-22] MEDS: SODIUM CHLORIDE 0.9% IV 1,000 ML 999 ML IV CONT (10:34)
[2024-01-22] MEDS: PANTOPRAZOLE SODIUM IV 40 MG VIAL IV PUSH (10:34)
[2024-01-22 10:53] LABS: Magnesium 1.8 mg/dL (1.6-2.3)
--- NOTE | 2024-01-22 12:51 | ECG_ITS ---
Test Date: 2024-01-22 13:00:22 Measurements Intervals [place] Rate: 68 P: 13 MN: 163 QRS: 27 QRSD: 81 T: 16 QT: 393 QTc: 421 Interpretive Statements SINUS RHYTHM EARLY PRECORDIAL R/S TRANSITION BORDERLINE ST-T WAVE ABNORMALITY- INF/LAT LEADS BORDERLINE ECG BASELINE ARTIFACT- I, II, III, AVR, AVL, AVF, V1, V4 No previous ECG available for comparison Electronically Signed On 01-22-2024 13:10:56 CDT by Jasiel Yeung D.O.
[2024-01-22] MEDS: traMADol HCL (*CRX) 50 MG TABLET 25 MG PO (12:58)
[2024-01-22] MEDS: ACETAMINOPHEN 500 MG TABLET 1000 MG PO (12:59)
[2024-01-22 14:02] VITALS: PULSE 72; RESP 18; TEMP 36.7; O2SAT 100
== END 2024-01-22 14:06 | disposition home or self-care (01) ==
PROVIDERS: Emergency Medicine; Emergency Provider Physician Assistant; PCP Family Medicine
DX: R10.32 Left lower quadrant pain (principal); S50.12XA Contusion of left forearm, initial encounter; K21.9 Gastro-esophageal reflux disease without esophagitis; R29.6 Repeated falls; I48.0 Paroxysmal atrial fibrillation; I10 Essential (primary) hypertension; E03.9 Hypothyroidism, unspecified; E78.2 Mixed hyperlipidemia; E55.9 Vitamin D deficiency, unspecified; E53.8 Deficiency of other specified B group vitamins; G89.29 Other chronic pain; G62.9 Polyneuropathy, unspecified; K44.9 Diaphragmatic hernia without obstruction or gangrene; M18.9 Osteoarthritis of first carpometacarpal joint, unspecified; M19.041 Primary osteoarthritis, right hand; M19.031 Primary osteoarthritis, right wrist; M54.42 Lumbago with sciatica, left side; M54.41 Lumbago with sciatica, right side; N32.81 Overactive bladder; Z98.1 Arthrodesis status; Z87.891 Personal history of nicotine dependence; Z87.440 Personal history of urinary (tract) infections; Z85.038 Personal history of other malignant neoplasm of large intestine; Z90.49 Acquired absence of other specified parts of digestive tract; R94.31 Abnormal electrocardiogram [ECG] [EKG]; W19.XXXA Unspecified fall, initial encounter
CPT/HCPCS: 36415; 70450; 71250; 73090; 73130; 74176; 80053; 81001; 83690; 83735; 85025; 93005; 96361; 96374; 99284; A9270; J2470; J7030

== ENCOUNTER 2024-04-13 12:06 | Emergency (ER) | payer MEDICARE, SELFPAY ==
--- NOTE | ~2024-04-13 | XR_ITS ---
EXAM: XR hip LT 2V w AP pelvis DATE: 04/13/2024 14:17 HISTORY: injury, FALL TODAY UNAWARE OF DATES OF PAST SURGERIES . COMPARISON: 03/04/2021. FINDINGS: Decreased mineralization. No fracture or dislocation. No lytic or blastic lesion. Partiall y visualized lumbar fusion hardware. Mild bilateral hip osteoarthritis. No erosion or periosteal de guzman ge. Soft tissues within normal limits. IMPRESSION: No acute osseous finding in the pelvis or left hip. Reviewed, dictated and finalized at location K. TER SPRAY
--- NOTE | ~2024-04-13 | XR_ITS ---
EXAMINATION: XR chest 1V portable Exam Date/Time: 04/13/2024 14:00 CAR WASH MANAGER HISTORY: FALL TODAY Comparison: 10/22/2021. RESULT: Lines, tubes, and devices: Loop recorder. Atrial occlusion device. L1 vertebroplasty cement. Lungs and pleura: Clear. Right upper and left lower lung calcified granulomas. Cardiomediastinal silhouette: Stable. Other: No acute osseous or upper abdominal finding. IMPRESSION: No acute cardiopulmonary process. Reviewed, dictated and finalized at location K. WASH MANAGER
--- NOTE | ~2024-04-13 | CT_ITS ---
EXAMINATION: CT brain wo con DATE: 04/13/2024 14:02 INDICATION: fall head injury . TECHNIQUE: Computed tomography (CT) of the head was performed without intravenous contrast. The mA wa s adjusted according to patient size. Iterative reconstruction technique was employed. The dose-lengt h product was 605.33 mGy-cm. COMPARISON: 01/22/2024. FINDINGS: No acute intracranial hemorrhage or extra-axial fluid collection. No hydrocephalus, mass, or herniation. No acute ischemic infarct. Unremarkable dural venous sinus attenuation. No acute osseous abnormality. The aerated spaces are clear. Mild atrophy and chronic white matter change. Atherosclerotic intracranial calcification. Bilateral l ens replacements. IMPRESSION: No acute intracranial process. Reviewed, dictated and finalized at location K. ICATION INFRASTRUCTURE ENGINEER
--- NOTE | ~2024-04-13 | CT_ITS ---
EXAMINATION: CT cervical spine wo con DATE: 04/13/2024 14:02 INDICATION: neck pain status post fall TECHNIQUE: Computed tomography (CT) of the cervical spine was performed without intravenous contrast. Automated exposure control and iterative reconstruction technique were employed. The dose-length pro duct was 256.42 mGy-cm. COMPARISON: 06/27/2022. FINDINGS: Vertebral Body Alignment: Intact. Reversed lordosis centered at C4-5 Craniocervical and atlantoaxial alignment: Moderate degenerative change. Alignment intact. Osseous structures/fracture: No evidence of a lytic or blastic process in the visualized spine. No e vidence of acute fracture. Uncomplicated ACDF hardware at C3-4. Multilevel facet and vertebral body f usions Cervical soft tissues: The paraspinal soft tissues planes are maintained. Degenerative changes: Degenerative changes, without severe neural foraminal or central canal narrowin g. IMPRESSION: No acute fracture or traumatic malalignment in the cervical spine. Reviewed, dictated and finalized at location K. T MECHANIC
--- NOTE | ~2024-04-13 | CT_ITS ---
EXAMINATION: CT abdomen pelvis wo con DATE: 04/13/2024 14:48 INDICATION: pelvic pain s/p fall TECHNIQUE: Computed tomography (CT) of the abdomen and pelvis was performed without intravenous contr ast. Automated exposure control and iterative reconstruction technique were employed. The dose-length product was 368.84 mGy-cm. COMPARISON: CT cap 01/22/2024. FINDINGS: Lower thorax: Loop recorder. Liver: Normal. Biliary/Gallbladder: Gallbladder is normal. No bile duct dilation. Pancreas: No mass or duct dilation. Spleen: Normal. Adrenals:No mass. Kidneys: No suspicious mass, obstructing stone, or hydronephrosis. GI tract: Small hiatal hernia. Uncomplicated colonic anastomosis. No small or large bowel dilation. N ormal appendix. Mesentery/Peritoneum: No ascites, mass, or free air. Retroperitoneum: No mass. Atherosclerotic abdominal aortic and/or arterial calcifications. Pelvis: Normal urinary bladder. Absent uterus.. Soft Tissues: 6.3 x 11.0 x 5.9 cm subcutaneous hematoma at the level of the left PSIS, with surroundi ng subcutaneous fat stranding. Bones: No acute osseous finding. Uncomplicated lumbar fusion hardware spanning L3-S1. Stable L1 burs t fracture with vertebroplasty cement. Stable grade 1 retrolisthesis at L2-3. Stable anterolisthesis L5-S1. IMPRESSION: No acute intra-abdominal/pelvic process detected. No acute osseous finding. 11.0 cm subcutaneous hematoma at the level of the left posterior superior iliac spine. Reviewed, dictated and finalized at location K. SIVE PRIMER
[2024-04-13 12:22] VITALS: BP 173/97; PULSE 73; RESP 16; TEMP 36.4; O2SAT 96
[2024-04-13] MEDS: ONDANSETRON INJ 4 MG/2 ML VIAL IV PUSH (14:22)
[2024-04-13] MEDS: MORPHINE SULFATE (*CRX) 4 MG/ML INJ IV PUSH (14:22)
[2024-04-13 14:27] VITALS: BP 153/87; PULSE 64; RESP 16; O2SAT 100
[2024-04-13 14:31] LABS: Basophils Percent Auto 0.2 % (0.2-1.2); Eosinophils Percent Auto 0.3 % (0-4.4); Hematocrit 33.9 % (37.0-47.0); Hemoglobin 11.3 g/dL (12.0-15.0); Immature Granulocyte Absolute 0.03 K/mm3 (0.00-0.031); Immature Granulocyte Percent A 0.3 % (0-0.5); Lymphocytes Absolute Auto 0.97 K/mm3 (0.9-3.2); Lymphocytes Percent Auto 10.3 % (18.3-44.2); Mean Corpuscular HGB Conc 33.3 g/dl (32-36); Mean Corpuscular Hemoglobin 30.7 pg (26-34); Mean Corpuscular Volume 92.1 fl (80-100); Monocytes Absolute Auto 0.5 K/mm3 (0.1-0.6); Monocytes Percent Auto 5.7 % (2.6-8.5); Neutrophils Absolute Auto 7.9 K/mm3 (1.3-6.7); Neutrophils Percent Auto 83.2 % (45.5-73.1); Platelet Count Result 349 k/mm3 (150-375); Red Blood Count 3.68 M/mm3 (4.2-5.4); Red Cell Distribution Width 13.9 % (11.5-14.5); White Blood Count 9.5 K/mm3 (4.5-10.0)
[2024-04-13 14:43] LABS: Partial Thromboplastin Time 27.4 Seconds (22.3-36.8); Prothrombin Time 13.5 Seconds (11.1-14.7)
[2024-04-13 14:46] LABS: Alanine Aminotransferase 14 U/L (6-35); Alkaline Phosphatase 74 U/L (38-126); Aspartate Amino Transferase 22 U/L (14-36); Bilirubin,Total 0.9 mg/dL (0.2-1.3); Blood Urea Nitrogen 11 mg/dL (7-17); Calcium 8.8 mg/dL (8.4-10.2); Carbon Dioxide 26 mmol/L (22-30); Estimated CRCL calculation 67 ml/min; Estimated Glomerular Filt Rate > 60; Glucose 114 mg/dL (65-110); Magnesium 1.8 mg/dL (1.6-2.3)
[2024-04-13 14:47] LABS: Anion Gap 3 mmol/L (4-12); Chloride 98 mmol/L (98-107); Potassium 4.1 mmol/L (3.4-5.0); Sodium 127 mmol/L (137-145)
--- NOTE | 2024-04-13 15:44 | ED_ITS ---
HPI - General Adult General Chief complaint: Fall Stated complaint: Fall, Left Hip Time Seen by Provider: 04/13/24 13:27 History of Present Illness HPI narrative: patient 73-year-old female presents emergency department with chief complaint of left hip contusion. Patient reports that she had a ground level fall just prior to arrival and reports that she has pain with range of motion. Patient reports no head injury does report that she has some neck pain Related Data Home Medications ?Medication ?Instructions ?Recorded ?Confirmed ?Last Taken ?Type vitamin E 268 mg (400 unit) capsule 400 unit PO QAM 10/04/21 03/20/24 08/07/22 History aspirin 81 mg tablet,delayed 81 mg PO DAILY 07/20/22 03/20/24 08/07/22 History release (Adult Low Dose Aspirin) losartan 25 mg tablet 25 mg PO DAILY 08/05/22 03/20/24 08/07/22 History diclofenac sodium 1 % topical gel 2 g topical QID 01/24/23 03/20/24 Unknown History (Voltaren Arthritis Pain) cyanocobalamin (vitamin B-12) 1,000 mcg PO DAILY 07/02/23 03/20/24 Unknown History 1,000 mcg tablet Allergies Allergy/AdvReac Type Severity Reaction Status Date / Time gadobenic acid (From Allergy Intermediate Hives & Verified 01/22/24 09:45 CONTRAST-MRI) SWELLING iohexol (From contrast - CT, Allergy Hives Verified 01/22/24 09:45 X-RAY) latex Allergy Hives Verified 01/22/24 09:45 adhesive tape AdvReac Mild SKIN Verified 01/22/24 09:45 IRRITATION Review of Systems 2 Review of Systems: A 10 system review of systems was completed on the patient and is negative except for what is stated in the HPI. Nursing and ancillary documentation was reviewed. [facility] Past Medical History Medical History BMI 25.0-25.9,adult Paroxysmal atrial fibrillation New onset headache Vitamin B12 deficiency (06/27/23) level low at 322 with goal greater than 400 with folic acid 12.5 and hemoglobin 13.3 on 06/27/2023. UTI (urinary tract infection) RUQ pain Dysphagia Black tongue Encounter for HCV screening test for low risk patient (08/30/23) Hepatitis C screening was negative on 12/28/2022. hepatitis C screening was negative on 06/27/2023. Radiculitis, cervical Generalized weakness Frequent falls Left arm weakness Cervicalgia Acute pain of left knee x-ray of the left knee on 01/18/2022 reveals no significant bony defects. Low ferritin level (12/25/21) ferritin low at 7 with iron 63 with 17% saturation on 12/25/2021. total iron 63 with 17% saturation and ferritin low at 7 with hemoglobin 13.3 12/27/2021. Iron 63 with 15% saturation and ferritin 11 with hemoglobin 12.8 on 12/28/2022. Iron normal at 118 with 29% saturation and ferritin low at 13 with hemoglobin 13.3 on 06/27/2023. Encounter for surgical aftercare following surgery on the digestive system Postoperative ileus Primary adenocarcinoma of ascending colon (09/01/21) right hemicolectomy 10/13/2021. Colonoscopy 11/21/2022 negative for recurrence with recheck in 3 years. CEA normal at 2.1 on 12/28/2022. Colon cancer, ascending Colonic mass (~09/01/21) 25-30 mm mass ascending colon On 09/01/2021. the patient had a right hemicolectomy on 10/13/2021 for adenocarcinoma of the ascending colon. Essential hypertension BMI 23.0-23.9, adult Weight loss, unintentional Vitamin D deficiency, unspecified (12/15/20) level low at 26 with goal greater than 30 on 12/15/2020 Low iron (12/15/20) iron 51 with 14% saturation and hemoglobin 12.5 on 12/15/2020. Iron 63 with 17% saturation and ferritin low at 7 on 12/27/2021. Iron 63 with 15% saturation and ferritin low at 11 with hemoglobin 12.8 on 12/28/2022. Iron 118 with 29% saturation and ferritin 113 on 06/27/2023. Chronic left hip pain Breast cancer screening by mammogram mammogram on 01/20/2021 was negative. Recheck in 1 year. Normal mammogram 01/24/2022. Normal mammogram 05/10/2023. Colon cancer screening Constipation Hiatal hernia Encounter for preprocedure screening laboratory testing for COVID-19 BMI 22.0-22.9, adult At high risk for falls Overactive bladder Chronic low back pain with left-sided sciatica Fatigue Seborrheic keratosis Insomnia Urinary frequency volume chart completed Chronic cough Urinary frequency Mixed hyperlipidemia total cholesterol 207, triglycerides 87, HDL 62, LDL 126 on 12/15/2020. Cholesterol 230, triglycerides 119, HDL 70, LDL 136 on 12/25/2021. Cholesterol 241, triglycerides 102, HDL 75, LDL 144 on 12/28/2022. Cholesterol 230, triglycerides 77, HDL 81, LDL 132 with ratio of 2.8 on 06/27/2023. Hypothyroidism TSH 1.22 with free T4 at 1.5 on 12/15/2020. TSH 1.19 on 12/25/2021. TSH 0.77 on 06/27/2023. Chronic depression Chronic low back pain with right-sided sciatica X-ray of the lumbar spine on 01/18/2022 reveals previous posterior fusion from L3 through S1 unchanged from 08/11/2018 with new severe degenerative disc disease at L2-L3 chronic burst fracture with vertebroplasty at L1 unchanged. Elbow contusion Chronic back pain Arthritis GERD (gastroesophageal reflux disease) Hypertension Hyperlipidemia Peripheral neuropathy Surgical History Surgical History Hx of cervical spine surgery Hx of right hemicolectomy 10/13/2021 History of back surgery lumbosacral fusion Family History Family History Other Alcohol abuse Diabetes mellitus Hypertension Social History Social History Years smoked: 10 Smoking status: Former smoker Tobacco type: cigarettes Second hand tobacco smoke exposure: No Alcohol intake: never Substance use: never Substance use type: does not use Current Housing: Decline to Answer Concerned About Future Housing: Decline to Answer Difficulty Paying Gas/Electric Bills: Decline to Answer Difficulty Paying for Meds: Decline to Answer Currently Unemployed: Decline to Answer Education: Decline to Answer Difficulty w/ Childcare or Family Care: Decline to Answer Living arrangements: with family Occupation/Education: retired Gender identity (if verbalized by the patient): Female Spiritual care concerns: No Exam 2 Narrative: GENERAL: Well-appearing, well-nourished, and in no acute distress. HEAD: Normocephalic, atraumatic. EYES: PERRLA and EOMI. ENT: Nares clear, no rhinorrhea or epistaxis. Mucous membranes moist. NECK: Supple. CHEST: Clear to auscultation. No respiratory distress. HEART: Regular rate and rhythm. No murmur heard. Normal peripheral pulses. ABDOMEN: Soft, nontender, nondistended, normal active bowel sounds. EXTREMITIES: Normal range of motion. No edema. SKIN: Warm, dry, no rash. multiple bruises there is a large hematoma present to the left hip NEURO: No focal deficits. Alert and oriented x3. PSYCH: Normal mood and affect. Course Vital Signs Vital signs: Vital Signs Temperature 36.4 C 04/13/24 12:22 Pulse Rate 73 04/13/24 12:22 Respiratory Rate 16 04/13/24 12:22 Blood Pressure 173/97 H 04/13/24 12:22 Pulse Oximetry 96 04/13/24 12:22 Oxygen Delivery Room Air 04/13/24 12:22 Temperature 36.4 C 04/13/24 12:22 Pulse Rate 64 04/13/24 14:27 Respiratory Rate 16 04/13/24 14:27 Blood Pressure 153/87 H 04/13/24 14:27 Pulse Oximetry 100 04/13/24 14:27 Oxygen Delivery Room Air 04/13/24 12:22 Medical Decision Making MDM Narrative Medical decision making narrative: differential diagnosis includes contusion, fracture, intra-abdominal injury, head injury, cervical spine fracture CT head CT C-spine showed no acute abnormality chest x-ray showed no focal findings CT scan of the abdomen pelvis showed a 11 cm hematoma the patient was able to stand using a walker but normally uses a 4 roller walker and also uses a power chair at home in discussion with the family admission for observation and pain control and physical therapy the family has chosen to go home and manage the symptoms at home. Vital Signs Vital Signs: Vital Signs Temperature 36.4 C 04/13/24 12: Pulse Rate 73 04/13/24 12:22 Respiratory Rate 16 04/13/24 12:22 Blood Pressure 173/97 H 04/13/24 12:22 Pulse Oximetry 96 04/13/24 12:22 Oxygen Delivery Room Air 04/13/24 12:22 Temperature 36.4 C 04/13/24 12:22 Pulse Rate 64 04/13/24 14:27 Respiratory Rate 16 04/13/24 14:27 Blood Pressure 153/87 H 04/13/24 14:27 Pulse Oximetry 100 04/13/24 14:27 Oxygen Delivery Room Air 04/13/24 12:22 Lab Data 04/13/24 14:25 04/13/24 14:25 Labs: Lab Results 04/13/24 Range/Units 14:25 WBC 9.5 (4.5-10.0) K/mm3 RBC 3.68 L (4.2-5.4) M/mm3 Hgb 11.3 L (12.0-15.0) g/dL Hct 33.9 L (37.0-47.0) % MCV 92.1 (80-100) fl MCH 30.7 (26-34) pg MCHC 33.3 (32-36) g/dl RDW 13.9 (11.5-14.5) % Plt Count 349 (150-375) k/mm3 MPV 9.0 (7.4-10.4) fl Immature Gran % (Auto) 0.3 (0-0.5) % Neut % (Auto) 83.2 H (45.5-73.1) % Lymph % (Auto) 10.3 L (18.3-44.2) % Rains % (Auto) 5.7 (2.6-8.5) % Eos % (Auto) 0.3 (0-4.4) % Baso % (Auto) 0.2 (0.2-1.2) % Lymph # (Auto) 0.97 (0.9-3.2) K/mm3 Rains # (Auto) 0.5 (0.1-0.6) K/mm3 Eos # (Auto) 0.0 (0-0.3) K/mm3 Baso # (Auto) 0.0 (0.0-0.1) K/mm3 Abs Immat Gran (auto) 0.03 (0.00-0.031) K/mm3 Absolute Neuts (auto) 7.9 H (1.3-6.7) K/mm3 Absolute Nucleated RBC 0.000 (0.0-0.012) K/mm3 Nucleated RBC % 0.0 (0.0-0.2) % PT 13.5 (11.1-14.7) Seconds INR 1.0 APTT 27.4 (22.3-36.8) Seconds Sodium 127 L (137-145) mmol/L Potassium 4.1 (3.4-5.0) mmol/L Chloride 98 (98-107) mmol/L Carbon Dioxide 26 (22-30) mmol/L Anion Gap 3 L (4-12) mmol/L BUN 11 (7-17) mg/dL Creatinine 0.50 L (0.7-1.0) mg/dL Estim Creat Clear Calc 67 ml/min Estimated GFR > 60 (59 - ) Glucose 114 H (65-110) mg/dL Calcium 8.8 (8.4-10.2) mg/dL Magnesium 1.8 (1.6-2.3) mg/dL Total Bilirubin 0.9 (0.2-1.3) mg/dL AST 22 (14-36) U/L ALT 14 (6-35) U/L Alkaline Phosphatase 74 (38-126) U/L Total Protein 7.0 (6.3-8.2) g/dL Albumin 4.0 (3.5-5.1) g/dL Discharge Plan Discharge Clinical Impression: Hematoma of left hip Patient Disposition: Home, Self-Care Condition: Stable Instructions: Antibiotic Form, Contusion in Adults (ED), Fall Prevention (ED) Patient Language: Telugu Prescriptions: New hydrocodone-acetaminophen 5-325 mg tablet 1 tablet PO Q6H PRN (Reason: pain) 3 Days Qty: 12 0RF No Action aspirin [Adult Low Dose Aspirin] 81 mg tablet,delayed release (DR/EC) 81 mg PO DAILY diclofenac sodium [Voltaren Arthritis Pain] 1 % gel 2 g topical QID Patient Comments: samples [id number]-[id number] gel. Twice daily the both knee Rx Instructions: apply to single elbow, wrist or hand; for hand includes palm/fingers/back of hand duloxetine 60 mg capsule,delayed release(DR/EC) 60 mg PO BID Qty: 180 3RF vitamin E 400 unit Capsule 400 unit PO QAM losartan 25 mg tablet 25 mg PO DAILY omeprazole 40 mg capsule,delayed release(DR/EC) 40 mg PO BID Qty: 180 3RF ferrous sulfate 324 mg (65 mg iron) tablet,delayed release (DR/EC) 324 mg PO DAILY Qty: 30 11RF cyanocobalamin (vitamin B-12) 1,000 mcg tablet 1,000 mcg PO DAILY atorvastatin 20 mg tablet 20 mg PO QAM Qty: 90 3RF mirabegron [Myrbetriq] 50 mg tablet extended release 24 hr 50 mg PO DAILY Qty: 30 11RF levothyroxine 50 mcg tablet 50 mcg PO QAM Qty: 90 3RF Rx Instructions: patient prefers generic now. metoprolol succinate [Toprol XL] 100 mg tablet extended release 24 hr 100 mg PO QAM Qty: 30 11RF eszopiclone [Lunesta] 3 mg tablet 3 mg PO . q.h.s. PRN (Reason: insomnia) Qty: 30 5RF Rx Instructions: Take one tablet at bedtime for insomnia pantoprazole [Protonix] 20 mg tablet,delayed release (DR/EC) 20 mg PO HS 42 Days Qty: 30 11RF Follow-up/Referrals: Gadiel Zavala MD [Primary Care Provider] -
--- OUTSIDE RECORDS SUMMARY | 2024-04-17 11:41 | XMS_ITS | Encounter Summary ---
Author Organization [facility] Address [address] [address] Care Team Providers Care [employer] Sales Representative Name Role Phone Gadiel Zavala MD Primary Care Provider [phone] Reason for Visit * Reason Comments Surgical Follow-up Encounter Details Date Type Department Care Team (Late st Contact Info) Description 08/10/2021 3:30 PM CDT Office Visit [facility] Ophthalmology [address] [place] [id number] [phone] Sin Romero MD [address] [place] [address] [id number] History of strabismus surgery (Primary Dx) Social History Tobacco Use Types Packs/Day Years Used Date Smoking Tobacco: Former Cigarettes 0.3 6 0 05/01/1988 - 05/01/1994 Smokeless Tobacco: Never Sex and Gender Information Value Date Recorded Sex Assigned at Not on file Gender Identity Not on file Sexual Orientation Not on file documented as of this encounter Patient Instructions * Patient Instructions* Eloina Maguire MD - 08/10/2021 4:39 PM CDT [facility] Ophthalmology Located at: [facility] Ophthalmology [address] [place] [id number] Your Visit from 08/10/2021 Follow up Appointment: with Professor Emily Flores on 08/18/2021 at 10:45AM Duction exercises: 1 eye at a times as much as possible - It is important that you follow up with us for the health of your eyes. - If you have trouble making or getting to your appointment please call our clinic Eye Drop Instructions: In the right eye: - prednisolone acetate (pink or white top): 1 drop 4 times daily for 1 week, then 1 drop 3 times daily for 1 week, then 1 drop 2 times daily for 1 week, then 1 drop daily for 1 week then stop - tobradex (white top) 1 drop 3 times daily until out In the left eye: - prednisolone acetate (pink or white top): 1 drop 4 times daily for 1 week, then 1 drop 3 times daily for 1 week, then 1 drop 2 times daily for 1 week, then 1 drop daily for 1 week then stop - tobradex (white top) 1 drop 3 times daily until out Oral Medications: Activity Instructions: Do Not Rub your Eyes Reasons to call: - call with any new changes in vision, including if you feel your vision worsens - call if you have new flashes, floaters, or a feeling of a curtain coming down over your vision - call with any questions about your drops or eye medications, or if you have trouble getting thesemedicines. Phone Number: Week (8am-5pm) - Call [phone] () Evenings, Weekends, or Holidays: Call [phone] and dial [phone] for the copy machine operator. Ask to speak to the eye doctor organ tuner electronic. They will connect us. documented in this encounter Progress Notes * Eloina Maguire MD - 08/10/2021 4:05 PM CDT Images from the original note were not included. Ophthalmology Office Note Subjective: Kaitlin Bond is an 71 year old Chief Complaint Patient presents with ??? Surgical Follow-up Kaitlin Bond, 71yo F S/p POW1 bilateral medial rectus recession with full downward transposition, 3 mm. Denies eye pain or discharge. Denied changes in her vision. But she is noticing worsening ofher double vision in all gazes. States there is no direction where she has single vision now. Gtts: tobradex QID OU Current Outpatient Medications Medication Sig Dispense Refill ??? atorvastatin (LIPITOR) 20 MG tablet Take 20 mg by mouth once daily ??? celecoxib (CELEBREX) 200 MG capsule TAKE 1 CAPSULE BY MOUTH TWICE DAILY NEEDED FOR PAIN ??? DULoxetine (CYMBALTA) 60 MG capsule Take 60 mg by mouth ??? eszopiclone (LUNESTA) 3 MG tablet TAKE 1 TABLET BY MOUTH EVERY DAY AT BEDTIME NEEDED FOR INSOMNIA ??? ketorolac (TORADOL) 10 MG tablet Take 1 (one) tablet by mouth every 4 hours as needed for Pain 10 tablet 0 ??? levothyroxine (SYNTHROID) 50 MCG tablet Take 50 mcg by mouth once daily ??? metoprolol succinate XL 24hr (TOPROL XL) 100 MG tablet Take 100 mg by mouth once daily ??? omeprazole (PRILOSEC) 40 MG capsule Take 40 mg by mouth 2 times daily ??? OXYBUTYNIN CHLORIDE PO Take 2 tablets by mouth once daily No current facility-administered medications for this visit. Allergies Allergen Reactions ??? Latex Other Pt states no. Is fine with gloves. Only allergy is to adhesive. ??? Gadolinium Other ??? Gadopentetate Dimeglumine Urticaria ??? Adhesive Sensitivity Rash Reaction: RASH ??? Green Dye Other Was getting MRI and developed hives while dye infusion. Objective: Base Eye Exam Visual Acuity (Snellen - Linear) Right Left Dist cc 20/30 20/30 Dist ph cc 20/25 20/25+2 Correction: Glasses Tonometry (Tonopen, 4:01 PM) Right Left Pressure 15 15 Additional Tests Stereo Fly: - Animals: 0/3 Circles: 0/9 Strabismus Exam 0 0 0 ET 18 0 0 0 RhypoT 2 ET 30 -2 0 ET 25 0 -2 ET 18 RhypoT 2 RhypoT 2 0 0 0 ET 25 0 0 0 RhypoT 3 Slit Lamp and Fundus Exam External Exam Right Left External Normal Normal Slit Lamp Exam Right Left Lids/Lashes Normal Normal Conjunctiva/Sclera post surgical conjunctiva medially post surgical conjunctiva medially Cornea endopigment, no dellen endopigment, no dellen Anterior Chamber Deep and quiet Deep and quiet Iris Round and reactive Round and reactive Lens PCIOL PCIOL Studies 08/10/2021: Assessment/Plan: 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 - s/p BLLRc Amadeo 6.5mm with consecutive ET and diplopia - POW1 s/p extra 3mm recession (total 9.5mm) with full downward transposition of medial rectus muscles - vision stable, IOP WNL - exam with worsened ET at primary gaze that is variable - evaluated by [facility] with possible concerns for convergence spasms given variability Plan - tobradex TID until out OU - prednisolone acetate QID 1 week, TID 1week, BID 1 week, daily 1 week, then stop - M30 with [facility] on 08/18/2021 at 10:45AM Eloina Maguire MD Ophthalmology PGY4 Minimal improvement at week 1 Re-assurance/Observation documented in this encounter Plan of Treatment Not on file documented as of this encounter Visit Diagnoses Diagnosis History of strabismus surgery- Primary documented in this encounter Care Teams [employer] Sales Representative Relationship Specialty Start Date End Date Gadiel Zavala MD [address] [place] [address] PCP - General 02/15/21 documented as of this encounter
--- OUTSIDE RECORDS SUMMARY | 2024-04-17 11:41 | XMS_ITS | Encounter Summary ---
Author Organization [facility] Address [address] [place] [address] Care Team Providers Care Manager Residential Name Role Phone Gadiel Zavala MD Primary Care Provider [phone] Reason for Visit * Auth/Cert Specialty Diagnoses / Procedures Referred By Contac t Referred To Contact Diagnoses Consecutive esotropia History of strabismus surgery Diplopia Consecutive esotropia History of strabismus surgery Diplopia Procedures CORRECTION STRABISMUS (RECESSION/RESECTION EYE MUSCLE) Referral ID Status Reason Start Date Expiration Date Visits Re quested Visits Authorized [id number] 1 1 Encounter Details Date Type Department Care Team (Latest Contact Info) Description 02/01/2022 10:56 AM CDT - 02/01/2022 3:36 PM CDT Hospital Encounter [facility] SURGERY [address] [place] [address] Sin Romero MD [address] [place], [place] [id number] Surgery General Discharge Disposition: Home or Self Care Social History Tobacco Use Types Packs/Day Years Used Date Smoking Tobacco: Former Cigarettes 0.3 6 0 05/01/1988 - 05/01/1994 Smokeless Tobacco: Never Comments:quit smoking in 199 0 Sex and Gender Information Value Date Recorded Sex Assigned at Not on file Gender Identity Not on file Sexual Orientation Not on file documented as of this encounter Last Filed Vital Signs Vital Sign Reading Time Taken Comments Blood Pressure 146/76 02/01/2022 3:15 PM CDT Pulse 65 02/01/2022 3:20 PM CDT Temperature 36.3 ??C (97.3 ??F) 02/01/2022 2:38 PM CD T Respiratory Rate 11 02/01/2022 3:20 PM CDT Oxygen Saturation 97% 02/01/2022 3:20 PM CDT Inhaled Oxygen Concentration - - Weight 52.2 kg (115 lb) 02/01/2022 11:09 AM CDT Height 160 cm (5' 3 ) 02/01/2022 11:09 AM CDT Body Mass Index 20.37 02/01/2022 11:09 AM CDT documented in this encounter Discharge Summaries * Sagar Vazquez MD - 02/01/2022 2:47 PM CDT Images from the original note were not included. SAME DAY SURGERY DISCHARGE SUMMARY Patient ID: Kaitlin Bond [id number] 71 year old 1950 Date of Surgery: 02/01/2022 Procedure performed: Bilateral lateral rectus advancement with adjustable suture Discharge Date: 02/01/2022 Discharge Diagnoses: Present on Admission: None Discharge Condition: Stable. Doing well. Discharge Medication: Medication List START taking these medications ketorolac 10 MG tablet Commonly known as: Toradol Take 1 (one) tablet by mouth every 8 hours as needed for Pain wlocfvqq-eywytnowf-rdernblc ophthalmic suspension Commonly known as: Maxitrol Instill 1 (one) drop into both eyes 4 times daily CONTINUE taking these medications atorvastatin 20 MG tablet Commonly known as: Lipitor eszopiclone 3 MG tablet Commonly known as: Lunesta levothyroxine 50 MCG tablet Commonly known as: Synthroid metoprolol succinate XL 24hr 100 MG tablet Commonly known as: Toprol XL omeprazole 40 MG capsule Commonly known as: PriLOSEC OXYBUTYNIN CHLORIDE PO oxyCODONE-acetaminophen 5-325 MG tablet Commonly known as: Percocet prednisoLONE acetate 1 % ophthalmic suspension Commonly known as: Pred Forte Instill 1 (one) drop into both eyes as directed 1 drop 4 times daily for 1 week, then 1 drop 3 times daily for 1 week, then 1 drop 2 times daily for 1 week, then 1 drop daily for 1 week then stop VITAMIN E PO Xarelto 20 MG tablet Generic drug: rivaroxaban Where to Get Your Medications These medications were sent to [facility] [id number] [address] [address] [address] ?? ketorolac 10 MG tablet Information about where to get these medications is not yet available Ask your nurse or doctor about these medications ?? qibvrdpo-kkxustisk-qwnamjjx ophthalmic suspension Discharge Procedure Orders Why you were hospitalized Order Specific Question Answer Comments Your discharge diagnosis is: Esotropia [[id number]] When to call your provider At and ask for the ophthalmology Resident for: Temperature greater than 101 degrees,persistent nausea and vomiting, severe uncontrolled pain, difficulty breathing, headache or visual disturbances, redness, tenderness or signs of infection such as pain, swelling, redness odor or green, yellow discharge around incision site. ICE TO AFFECTED AREA Cold compress or ice pack to the eye as tolerated 20-30 minutes out of the hour for every hour thatyou are awake for 48 hours SHOWER Tomorrow DIET REGULAR As tolerated Follow up with provider Follow up with provider Discharge Instructions POST-OPERATIVE INSTRUCTIONS EYE MUSCLE SURGERY FOLLOW-UP APPOINTMENT: Tomorrow at 8:30 AM at [address], [address]. The ophthalmology office is located on the [facility]. Office INSTRUCTIONS: - KEEP PATCH ON UNTIL APPOINTMENT TOMORROW - Start taking Maxitrol drops 4 times a day in the right eye - Elevate head 30 degrees with extra pillows in bed if possible - Tylenol every 4-6 hours as needed for pain - Resume all usual medications - No swimming in public pools WHAT TO EXPECT: Your eyes may progressively swell and bruise for the first few days. In the mornings they will be more swollen, sleeping with the two pillows help to minimize this. Swelling and bruising will improveconsiderably after the first week but may persist for up to a month. Vision will be blurred for thefirst few days, especially in relation to ointment or drop use. These eyes may be scratchy and irritated. This is helped considerably by the use of ointment or over the counter artificial tear drops.You may shower or bathe in 1 days. You may generally wash your face the day following surgery. WHAT TO AVOID: Avoid strenuous activity, bending over, or heavy lifting for the first three days. Avoid sun exposure, and swimming in public pools; WHEN TO CALL: If there is significant swelling, loss of vision and/or excessive pain. Call with any new or worsening eye problems. During clinic hours you can reach us at our office number, . You can reach us for after hour emergencies at [phone], press 0 to talk to the duck operator, then ask to speak with the medical data entry clerk independent agent music education. Disposition: home Follow-up: Tomorrow at 8:30 AM, call if problems. Sagar Vazquez MD 02/01/2022 2:47 PM documented in this encounter Discharge Instructions * Discharge Instructions* Sagar Vazquez MD - 02/01/2022 2:43 PM CDT Images from the original note were not included. POST-OPERATIVE INSTRUCTIONS EYE MUSCLE SURGERY FOLLOW-UP APPOINTMENT: Tomorrow at 8:30 AM at [address], [address]. The ophthalmology office is located on the [facility]. Office INSTRUCTIONS: - KEEP PATCH ON UNTIL APPOINTMENT TOMORROW - Start taking Maxitrol drops 4 times a day in the right eye - Elevate head 30 degrees with extra pillows in bed if possible - Tylenol every 4-6 hours as needed for pain - Resume all usual medications - No swimming in public pools WHAT TO EXPECT: Your eyes may progressively swell and bruise for the first few days. In the mornings they will be more swollen, sleeping with the two pillows help to minimize this. Swelling and bruising will improveconsiderably after the first week but may persist for up to a month. Vision will be blurred for thefirst few days, especially in relation to ointment or drop use. These eyes may be scratchy and irritated. This is helped considerably by the use of ointment or over the counter artificial tear drops.You may shower or bathe in 1 days. You may generally wash your face the day following surgery. WHAT TO AVOID: Avoid strenuous activity, bending over, or heavy lifting for the first three days. Avoid sun exposure, and swimming in public pools; WHEN TO CALL: If there is significant swelling, loss of vision and/or excessive pain. Call with any new or worsening eye problems. During clinic hours you can reach us at our office number, . You can reach us for after hour emergencies at [phone], press 0 to talk to the duck operator, then ask to speak with the medical data entry clerk independent agent music education. documented in this encounter Medications at Time of Discharge Medication Sig Dispensed Refills Start Date End Date atorvastatin (LIPITOR) 20 MG tablet Take 1 (one) tablet by mouth once daily 06/15/2021 eszopiclone (LUNESTA) 3 MG tablet TAKE 1 TABLET BY MOUTH EVERY DAY AT BEDTIME NEEDED FOR INSOMNIA 06/15/2021 ketorolac (Toradol) 10 MG tablet Take 1 (one) tablet by mouth every 8 hours as needed for Pain 10 tablet 02/01/2022 levothyroxine (SYNTHROID) 50 MCG tablet Take 1 (one) tablet by mouth once daily 05/24/2021 losartan (Cozaar) 25 MG tablet 01/31/2022 zexynait-uloghzcbh-leac meth (Maxitrol) ophthalmic suspension Instill 1 (one) drop into both eyes 4 times daily 5 mL 02/01/2022 omeprazole (PRILOSEC) 40 MG capsule Take 1 (one) capsule by mouth 2 times daily 05/19/2021 oxyCODONE-acetaminophen (Percocet) 5-325 MG tablet Take 1 tablet by mouth every 6 hours as needed for Pain VITAMIN E PO Xarelto 20 MG tablet TAKE 1 TABLET BY MOUTH ONCE DAILY WITH EVENING MEAL 01/13/2022 metoprolol succinate XL 24hr (TOPROL XL) 100 MG tablet Take 100 mg by mouth once daily 06/15/2021 02/02/2022 OXYBUTYNIN CHLORIDE PO Take 2 tablets by mouth once daily 02/02/2022 prednisoLONE acetate (PRED FORTE) 1 % ophthalmic suspension Instill 1 (one) drop into both eyes as directed 1 drop 4 times daily for 1 week, then 1 drop 3 times daily for 1 week, then 1 drop 2 times daily for 1 week, then 1 drop daily for 1 week then stop 15 mL 08/10/2021 02/02/2022 documented as of this encounter H&P Notes * Sin Romero MD - 02/01/2022 12:01 PM CDT Date: 02/01/2022 Patient ID: Name: Kaitlin Bond Age: [id number] year old : 1950 Present Illness: Kaitlin Bond is a 71 year old female who presents for bilateral lateral rectus advancement on adjustable sutures. 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 Currently managed with 30^ MEEK Fresnel prism, not happy with distortion and double vision in lateral gazes. Previous hx of X(T) s/p BLRc 6mm 02/05/[address] Childs. ROS: Patient has persistent diplopia. Medications: Current Facility-Administered Medications Medication Dose Route Frequency Provider Last Rate Last Admin ??? 0.9% NaCl injection 3 mL 3 mL Intracatheter q8h Sagar Vazquez MD And ??? 0.9% NaCl injection 1-10 mL 1-10 mL Intracatheter PRN Sagar Vazquez MD ??? lactated ringers infusion Intravenous Continuous Sagar Vazquez MD 75 mL/hr at 02/01/22 1128 New Bag at 02/01/22 1128 Allergies: Latex, Gadolinium, Gadopentetate dimeglumine, Adhesive sensitivity, and Green dye Past surgical history: Past Surgical History: Procedure Laterality Date ??? Back Surgery 2016 ??? COLECTOMY PARTIAL OR HEMICOLECTOMY 09/2021 ??? Hysterectomy ??? OPHTHALMOLOGIC PROCEDURE/SURGERY Bilateral 08/03/2021 Bilateral; BIMEDIAL RECTUS RECESSION WITH DOWNWARD TRANSPOSITION ??? OTHER SURGERY nerve stimulator-and removed ??? Spine Procedure/Surgery Past medical history: Past Medical History: Diagnosis Date ??? Colon cancer (CMS/HCC) 09/15/2021 Patient reported - diagnosis made 08/2021 ??? Disorder of thyroid hypothyroidism ??? Essential hypertension ??? GERD (gastroesophageal reflux disease) ??? Neuropathy ??? Osteoarthritis ??? Paroxysmal atrial fibrillation (CMS/HCC) 09/2021 on xarelto ??? PONV (postoperative nausea and vomiting) ??? Pure hypercholesterolemia Past family history: No family history on file. Social history: Social History Socioeconomic History ??? Marital status: Spouse name: Not on file ??? Number of children: Not on file ??? Years of education: Not on file ??? Highest education level: Not on file Occupational History ??? Not on file Tobacco Use ??? Smoking status: Former Smoker Packs/day: 0.25 Years: 6.00 Pack years: 1.50 Types: Cigarettes Quit date: 05/01/1994 Years since quittin.7 ??? Smokeless tobacco: Never Used ??? Tobacco comment: quit smoking in 1989 Vaping Use ??? Vaping Use: Never used Substance and Sexual Activity ??? Alcohol use: Not on file Comment: rare ??? Drug use: Never ??? Sexual activity: Not on file Other Topics Concern ??? Not on file Social History Narrative ??? Not on file Social Determinants of Health Financial Resource Strain: Not on file Food Insecurity: Not on file Transportation Needs: Not on file Physical Activity: Not on file Stress: Not on file Social Connections: Not on file Intimate Partner Violence: Not on file Housing Stability: Not on file General Exam: BP 155/84 Pulse 64 Temp 99.3 ??F (37.4 ??C) (Skin) Resp 16 Ht 5' 3 (1.6 m) Wt 115 lb (52.2 kg) SpO2 100% General appearance: appears stated age, normal Head: Normocephalic, without obvious abnormality, atraumatic Eyes: Esotropia Lungs: Without respiratory distress Heart: No cyanosis Abdomen: Non-distended Neurologic: Grossly normal Assessment: Kaitlin Bond is a 71 year old female with persistent esotropia here for bilateral lateral rectus advancement on adjustable sutures Plan: Risks, benefits and alternatives of bilateral lateral rectus muscle advancement on adjustable sutures were discussed including but not limited to bleeding, infection, scarring, recurrence, and need for further surgery. Patient understands and agrees to proceed with surgery. This is to be performed today as planned. Sagar Vazquez MD 02/01/2022 12:03 PM [X] ? Patient seen and examined. Resident note reviewed and discussed. I confirm these findings. ?? Complete history and physical was reviewed, the patient was examined and no change has occurred in the patient's condition since completion of the history and physical. I have reviewed the surgical plan with the patient and Dr. George Romero M.D. 02/01/2022 12:55 PM documented in this encounter OR Notes * Operative - Sin Romero MD - 02/01/2022 1:57 PM CDT Patient: Kaitlin Bond Age: [age] year old Date of : 1950 [facility] #: [id number] Date of Operation: 02/02/2022 ATTENDING SURGEON: Sin Romero M.D. TAX SENIOR ASSOCIATE: Sagar Vazquez MD PREOPERATIVE DIAGNOSIS: Esotropia History of strabismus surgery with scarring Diplopia POSTOPERATIVE DIAGNOSIS: Same PROCEDURE: Bilateral lateral rectus advancement with adjustable suture on left lateral rectus ANESTHESIA: General. COMPLICATIONS: None. ESTIMATED BLOOD LOSS: Minimal. PROCEDURE IN DETAIL: After obtaining informed consent, Kaitlin Bond was brought to the operating room where the child was placed under general anesthesia. A single drop of 2.5% phenylephrine was placed in each eye to aid in hemostasis. The patient was prepped and draped in the usual sterile ophthalmic manner, and the right eyelids were taped shut. Lid speculum was then placed underneath the left eyelids. A 5- 0 Mersilene traction suture was placed at 6 and 12 o'clock, and the left eye was adducted. A conjunctival peritomy was created at the limbus laterally, and then the leftt lateral rectus muscle was located and hooked. The remaining check ligaments and tenon capsule were bluntly dissected away with a cotton tip applicator. The insertion of the lateral rectus muscle was noted to be 13.5mm posterior to the limbus. The left lateral rectus was then tagged at its insertion with a double-armed 6-0 Vicryl suture and disinserted from the globe. It was advanced approximately 6 mm and inserted at the original insertion using hang-back suture technique. The muscle was tied using a 2-1 technique and a loop was left on the second throw to allow for adjustment if needed after the surgery. The overlying conjunctiva was reapproximated to the limbus using two 8- 0 Vicryl sutures, in an interrupted fashion, leaving access to the suture loop needed for adjustment. The lid speculum and traction sutures were removed, and the leftt lids were tapped shut. Lid speculum was then placed underneath the right eyelids. A 5-0 Mersilene traction suture was placed at 6 and12 o'clock, and the left eye was adducted. A conjunctival peritomy was created at the limbus laterally, and then the right lateral rectus muscle was located and hooked. The remaining check ligaments and tenon capsule were bluntly dissected away with a cotton tip applicator. The left lateral rectus muscle was found approximately 13.5mm posterior to the limbus. It was then tagged at its insertion with a double-armed 6-0 Vicryl suture and disinserted from the globe. It was advanced approximately 6mm to the original insertion with hang-back suture technique. It was tied in a 2-1-1 fashion and suture tails cut. The overlying conjunctiva was reapproximated to the limbus using two 8-0 Vicryl sutures, in an interrupted fashion. The lid speculum and traction sutures were removed. Tobradex drops were placed into each eye. Kaitlin Bond was then awakened from anesthesia and brought to the recovery room in stable condition having tolerated the procedure well. Dr. Romero was present throughout the entire case. Sagar Vazquez M.D ([place]). Ophthalmology, PGY-4 documented in this encounter Miscellaneous Notes * Clinical References AVS - Seun Mcfarland RN - 02/01/2022 2:29 PM CDT [id number] Using an Incentive Spirometer An incentive spirometer is a device that helps you do deep breathing exercises after surgery. Or ithelps lower the risk for breathing problems if you have a lung disease or condition. These exercises expand your lungs, aid in circulation, and may help prevent pneumonia. Deep breathing exercises also help you breathe better and improve the function of your lungs by: ?? Keeping your lungs clear ?? Strengthening your breathing muscles ?? Helping prevent respiratory complications or problems The incentive spirometer gives you a way to take an active part in your recovery. A nurse or respiratory therapist will teach you breathing exercises. To do these exercises, you will breathe in through your mouth and not your nose. The incentive spirometer only works correctly if you breathe in through your mouth. Deep breathing expands the lungs, aids circulation, and helps prevent pneumonia. Your healthcare provider or their staff will tell you how to use the device, your targeted volume(s), and provide other helpful tips to prevent complications (such as pain, dizziness, feeling lightheaded) when blowing in the incentive spirometer. Steps to clear lungs Step 1. Exhale normally. Then, inhale normally. ?? Relax and breathe out. Step 2. Place your lips tightly around the mouthpiece. ?? Make sure the device is upright and not tilted. ?? Sit up and breathe out (exhale) fully ?? Tightly seal your lips around the mouthpiece Step 3. Inhale as much air as you can through the mouthpiece. Don't breathe through your nose. ?? Breathe in (inhale) slowly and deeply. ?? Hold your breath long enough to keep the balls, piston, or disk raised for at least 3 to 5seconds, or as instructed by your healthcare provider. ?? Exhale slowly to allow the balls, piston, or disk to fall before repeating again. Note: Some spirometers have an indicator to let you know that you are breathing in too fast. If theindicator goes off, breathe in more slowly. Step 4. Repeat the exercise regularly. ?? Do sets of 10 exercises every hour while you're awake, or as instructed by your healthcare provider. Don't do more than 30 breaths in each set. ?? If you were taught deep breathing and coughing exercises, do them regularly as instructed by your provider, nurse, or respiratory therapist. Follow-up care Make a follow-up appointment, or as directed by your healthcare provider. Also follow up with your provider as advised if your symptoms don't improve or continue to get worse. When to call your healthcare provider Call your healthcare provider right away if you have any of these: ?? Fever 100.4?? (38??C) or higher, or as advised by your provider ?? Brownish, bloody, or smelly sputum (phlegm that you cough up) Call 911 Call 911 if any of these occur: ?? Shortness of breath that doesn't get better after taking your medicine ?? Cool, moist, pale, or blue skin ?? Trouble breathing or swallowing, wheezing ?? Fainting or loss of consciousness ?? Feeling of dizziness or weakness, or a sudden drop in blood pressure ?? Feeling very ill ?? Lightheadedness ?? Chest pain or rapid heart rate Last Reviewed Date: 2021 ?? 9788-0528 [employer] ([employer]). All rights reserved. This information is not intended as a substitute for professional medical care. Always follow your healthcare professional's instructions. documented in this encounter Plan of Treatment Not on file documented as of this encounter Procedures Procedure Name Priority Date/Time Associated Diagnosis Comments CORRECTION STRABISMUS (RECESSION/RESECTION EYE MUSCLE) 02/01/2022 1:57 PM CDT Consecutive esotropia History of strabismus surgery Diplopia Special Needs ANESTHESIA GENERAL W/LOCAL,SUPINE documented in this encounter Visit Diagnoses Not on filedocumented in this encounter Administered Medications Inactive Administered Medications - up to 3 most recent administrations Medication Order MAR Action Action Date Dose Rate Site 0.9% NaCl injection 1-10 mL 1-10 mL, Intracatheter, PRN, Other, peripheral line flush, Starting on Mon02/01/22 at 1104, Until Mon02/01/22 at 1636, Flush peripheral IV catheter with 1-10 mL of normal saline before and after medications and prn to clear blood from the line or to verify patency., Pre-op 0.9% NaCl injection 3 mL 3 mL, Intracatheter, EVERY 8 HOURS, First dose on Mon02/01/22 at 1400, Until Discontinued, Flush peripheral IV catheter with 3 mL of normal saline every 8 hours., Pre-op diphenhydrAMINE (Benadryl) injection 25 mg 25 mg, Intravenous, ONCE PRN, Nausea/Vomiting, 1 dose, Starting on Mon02/01/22 at 1423, Until Mon02/01/22 at 1636, Second choice, use if first choice was ineffective., PACU fentaNYL (PF) (Sublimaze) injection 25 mcg 25 mcg, Intravenous, EVERY 10 MIN PRN, Mild Pain, 4 doses, Starting on Mon02/01/22 at 1423, Until Mon02/01/22 at 1636, Maximum total of 4 doses. If patient reaches max total dose, please consult anesthesiologist prior to further administration of pain meds. Hold pain meds if there are signs of hypoventilation. Patient preference for lesser PRN pain meds may be honored when the patient requests a less strong medication, a lower dose, or a less intrusive route of administration when the lesser drug, dose and route have been ordered for the patient. This patient request must be documented in the MAR., PACU lactated ringers infusion at 75 mL/hr, Intravenous, CONTINUOUS, Starting on Mon02/01/22 at 1115, Until Mon02/01/22 at 1636, Pre-op $ New Bag/Syringe 02/01/2022 11:28 AM CDT 75 mL/hr lactated ringers infusion at 125 mL/hr, Intravenous, CONTINUOUS, Starting on Mon02/01/22 at 1430, Until Mon02/01/22 at 1636, PACU naloxone (Narcan) injection 0.04 mg 0.04 mg, Intravenous, POST-OP MULTIPLE, Starting on Mon02/01/22 at 1423, Until Mon02/01/22 at 1636, Notify physician immediately, and mix 0.4 mg Naloxone in 9 mL Normal Saline for slow IV push. Administer dilute Naloxone solution IV very slowly (1 mL over 30 seconds) while observing the patient response and titrating to effect. If no response, call Rapid Response, continue IV Naloxone at the same rate up to a total of 0.8 mg of diluted Naloxone., PACU ondansetron (Zofran) injection 4 mg 4 mg, Intravenous, ONCE PRN, Nausea/Vomiting, 1 dose, Starting on Mon02/01/22 at 1423, Until Mon02/01/22 at 1636, First choice, PACU documented in this encounter Active and Recently Administered Medications Times are shown in CDT. Scheduled Medication Order 01/30/2022 01/31/2022 02/01/2022 0.9% NaCl injection 3 mL(Linked Group 1) 3 mL, Intracatheter, EVERY 8 HOURS, First dose on Mon02/01/22 at 1400, Until Discontinued, Flush peripheral IV catheter with 3 mL of normal saline every 8 hours., Pre-op 1400 (Due) naloxone (Narcan) injection 0.04 mg 0.04 mg, Intravenous, POST-OP MULTIPLE, Starting on Mon02/01/22 at 1423, Until Mon02/01/22 at 1636, Notify physician immediately, and mix 0.4 mg Naloxone in 9 mL Normal Saline for slow IV push. Administer dilute Naloxone solution IV very slowly (1 mL over 30 seconds) while observing the patient response and titrating to effect. If no response, call Rapid Response, continue IV Naloxone at the same rate up to a total of 0.8 mg of diluted Naloxone., PACU Continuous Medication Order 01/30/2022 01/31/2022 02/01/2022 lactated ringers infusion at 75 mL/hr, Intravenous, CONTINUOUS, Starting on Mon02/01/22 at 1115, Until Mon02/01/22 at 1636, Pre-op 1128 ($ New Bag/Syri nge - Provider: Lana Lang RN) lactated ringers infusion at 125 mL/hr, Intravenous, CONTINUOUS, Starting on Mon02/01/22 at 1430, Until Mon02/01/22 at 1636, PACU 1430 (Due) PRN Medication Order 01/30/2022 01/31/2022 02/01/2022 0.9% NaCl injection 1-10 mL(Linked Group 1) 1-10 mL, Intracatheter, PRN, Other, peripheral line flush, Starting on Mon02/01/22 at 1104, Until Mon02/01/22 at 1636, Flush peripheral IV catheter with 1-10 mL of normal saline before and after medications and prn to clear blood from the line or to verify patency., Pre-op bupivacaine PF (Marcaine PF) 0.5 % injection (CANCELED) PRN, Starting on Mon02/01/22 at 1354, Until Mon02/01/22 at 1442, Intra-op 1354 ($ Given - Prov ider: Sin Romero MD) diphenhydrAMINE (Benadryl) injection 25 mg 25 mg, Intravenous, ONCE PRN, Nausea/Vomiting, 1 dose, Starting on Mon02/01/22 at 1423, Until Mon02/01/22 at 1636, Second choice, use if first choice was ineffective., PACU fentaNYL (PF) (Sublimaze) injection 25 mcg 25 mcg, Intravenous, EVERY 10 MIN PRN, Mild Pain, 4 doses, Starting on Mon02/01/22 at 1423, Until Mon02/01/22 at 1636, Maximum total of 4 doses. If patient reaches max total dose, please consult anesthesiologist prior to further administration of pain meds. Hold pain meds if there are signs of hypoventilation. Patient preference for lesser PRN pain meds may be honored when the patient requests a less strong medication, a lower dose, or a less intrusive route of administration when the lesser drug, dose and route have been ordered for the patient. This patient request must be documented in the MAR., PACU ondansetron (Zofran) injection 4 mg 4 mg, Intravenous, ONCE PRN, Nausea/Vomiting, 1 dose, Starting on Mon02/01/22 at 1423, Until Mon02/01/22 at 1636, First choice, PACU phenylephrine (Mydfrin) 2.5% ophthalmic solution (CANCELED) PRN, Starting on Mon02/01/22 at 1336, Until Mon02/01/22 at 1442, Intra-op 1336 ($ Given - Prov ider: Sin Romero MD) tobramycin-dexAMETHasone (Tobradex) 0.3-0.1 % ophthalmic suspension (CANCELED) PRN, Starting on Mon02/01/22 at 1422, Until Mon02/01/22 at 1442, Intra-op 1422 ($ Given - Prov ider: Sin Romero MD) Linked Groups Order Group 1: SALINE LOCK, INSERT AND MAINTAIN (CANCELED) Routine, CONTINUOUS, Starting on Mon02/01/22 at 1115, Until Specified, Pre-op, New collection And 0.9% NaCl injection 3 mLJump to med 3 mL, Intracatheter, EVERY 8 HOURS, First dose on Mon02/01/22 at 1400, Until Discontinued, Flush peripheral IV catheter with 3 mL of normal saline every 8 hours., Pre-op And 0.9% NaCl injection 1-10 mLJump to med 1-10 mL, Intracatheter, PRN, Other, peripheral line flush, Starting on Mon02/01/22 at 1104, Until Mon02/01/22 at 1636, Flush peripheral IV catheter with 1-10 mL of normal saline before and after medications and prn to clear blood from the line or to verify patency., Pre-op documented in this encounter Care Teams Manager Residential Relationship Specialty Start Date End Date Gadiel Zavala MD [address] [place] [id number] PCP - General 02/15/21 documented as of this encounter
--- OUTSIDE RECORDS SUMMARY | 2024-04-17 11:41 | XMS_ITS | Encounter Summary ---
Author Organization [facility] Address [address] [place] [address] Care Team Providers Care Mailroom Personnel Name Role Phone Gadiel Zavala MD Primary Care Provider [phone] Reason for Visit * Auth/Cert Specialty Diagnoses / Procedures Referred By Contac t Referred To Contact Diagnoses Consecutive esotropia History of strabismus surgery Diplopia Consecutive esotropia History of strabismus surgery Diplopia Procedures CORRECTION STRABISMUS (RECESSION/RESECTION EYE MUSCLE) Referral ID Status Reason Start Date Expiration Date Visits Re quested Visits Authorized [id number] 1 1 Encounter Details Date Type Department Care Team (Late st Contact Info) Description 02/01/2022 12:59 PM CDT Anesthesia Event [facility] [address] [place] [address] Clarice Hammond MD Relocated/no information available Aydin Soto MD [address] [facility] [place] [address] Anesthesia Record Procedure Summary Procedure Name Responsible Anesthesiologist Anesthesia Start Time Anesthesia Stop Time Advance lateral rectus BILATERALLY on adjustable suture (Bilateral: Eye) Clarice Hammond MD 02/01/22 1259 02/01/22 1442 Events Date Time Event Comment 02/01/2022 1116 1259 An Start 1259 Pt In Room 1302 An Start Data 1303 PT Reassessment 1305 Quick Note IV ifiltrated,a rm red swollen, warm blanket applied and IV taken out and replaced 1309 Induction 1311 An LMA 1313 Anes Ready 1326 Time Out Anesthesia part icipated in timeout at the time documented in the record by nursing 1327 Proc Start 1423 Proc Stop 1423 An Emergence 1433 An LMA Removed 1435 an stop data 1436 Pt out of Room 1442 ANPTO2 1442 An Stop Meds Name Total lidocaine PF 2% 50 mg fentaNYL 100 mcg/2ml injection 50 mcg propofol 200mg/20mL injection 100 mg dexamethasone 10 mg/ml PF injection 8 mg famotidine 20 mg/2mL injection 20 mg ondansetron 4mg/2mL injection 4 mg ketorolac 30 mg/mL injection 30 mg LR (Lactated ringers) 600 mL * Agents Name Exp. Sevoflurane Exp. N2O O2 Air Insp. Sevoflurane * Blood No blood administrations on file. Lines, Drains, and Airways Type Details Placement Removal Peripheral IV Date: 02/01/22; Time : 1124; Orientation: Posterior, Right; Tolerance: Well 02/01/22 1124 by Lana Lang RN 02/01/22 1305 by Henrietta Balbuena APRN-CRNA Peripheral IV Date: 02/01/22; Time : 1306; Orientation: Left; Placed By: Dr. Hammond; Tolerance: Well 02/01/22 1306 by Henrietta Balbuena APRN-NBA PLAYER 02/01/22 1526 by Seun Mcfarland, RN LMA 02/01/22; 1311 (created via procedure documentation); IDANIA Carr; 100% O2; Standard IV; mask not attempted; LMA; 3.0; Direct visualization, Bilateral breath sounds, Chest Auscultation, CO2 Monitor; 02/01/22; 1433 02/01/22 1311 by Henrietta Balbuena APRN-NBA PLAYER 02/01/22 1433 by Henrietta Balbuena APRN-CRNA Procedural Site (Incision) 02/01/22; 1338; Eye; 02/01/22; 213502/01/22 1338 by Jagruti Julian RN 02/01/222135 by Generic, Auto Release documented in this encounter Social History Tobacco Use Types Packs/Day Years Used Date Smoking Tobacco: Former Cigarettes 0.3 6 0 05/01/1988 - 05/01/1994 Smokeless Tobacco: Never Comments:quit smoking in 199 0 Sex and Gender Information Value Date Recorded Sex Assigned at Not on file Gender Identity Not on file Sexual Orientation Not on file documented as of this encounter Progress Notes * Clarice Hammond MD - 02/01/2022 2:48 PM CDT ANESTHESIA POSTOP EVALUATION NOTE Procedure: Advance lateral rectus BILATERALLY on adjustable suture (Bilateral Eye) Kaitlin Bond is a 71 year old female Patient Vitals for the past 6 hrs: BP Temp Pulse Resp SpO2 Pain Rating Score #1 Pain Scale/Observation 02/01/22 1116 155/84 99.3 ??F (37.4 ??C) 64 16 100 % 0 N Anesthesia Type: general LMA Pre-op Diagnosis Codes: * Consecutive esotropia [H50.00] * History of strabismus surgery [Z98.890] * Diplopia [H53.2] Mental Status: awake Neuro Status: No numbness, tingling or visual disturbances Respiratory Function: natural Cardiac Function: stable Postop Pain: acceptable to the patient Postop Hydration: adequate Postop Nausea: none Assessment: no apparent anesthetic complications and patient tolerated procedure well COMPLICATIONS: No complications documented. * Clarice Hammond MD - 01/29/2022 8:26 AM CDT ANESTHESIA PREOPERATIVE EVALUATION NOTE Procedure: Advance lateral rectus BILATERALLY on adjustable suture (Bilateral Eye) Vitals: No data found. LMP: No LMP recorded. OB Status: unknown ANESTHESIA PRE-EVALUATION NOTE History of Present Illness: 71 y/o female with PMHx of HTN. HLD, and PONV presents for B/L eye procedure. Denies any other anesthetic issues. The patient is a current non-smoker. Physical Exam: Orientation X3 Airway/Mallampati Score: III Mouth Opening Distance: 2.5 fingerwidths Neck ROM: full TM Distance: < 3 FB Teeth: normal Heart: normal - S1 S2 Lungs: clear to ausculation bilaterally Abdomen Exam: normal Review of Systems: History of anesthetic complications: Yes Sleep Apnea Risk: No PONV: Yes GERD: Yes, well controlled Poor Exercise Tolerance: No Recent Chest Pain: No Shortness of Breath: No AICD/Pacemaker: No Renal Disease: No ANESTHESIA PLAN ASA Score: 2 NPO Status: No solids since midnight and No liquids within 2 hours Anesthesia Plan: general and general LMA Planned Induction: intravenous Planned Postop Destination: PACU Anesthetic plan was discussed with: patient Anesthetic Plan discussion was: Consented The patient's procedural Anesthetic Plan was discussed with the assistant professor of physics and NBA PLAYER. BMI, Height, Weight Tobacco History Estimated body mass index is 20.37 kg/m?? as calculated from the following: Height as of this encounter: 1.6 m (5' 3 ). Weight as of this encounter: 52.2 kg (115 lb). Social History Tobacco Use Smoking Status Former Smoker ??? Packs/day: 0.25 ??? Years: 6.00 ??? Pack years: 1.50 ??? Types: Cigarettes ??? Quit date: 05/01/1994 ??? Years since quittin.7 Smokeless Tobacco Never Used Tobacco Comment quit smoking in 1989 Alcohol History Drug History Social History Substance and Sexual Activity Alcohol Use None Comment: rare Social History Substance and Sexual Activity Drug Use Never Outpatient Medications: Inpatient Medications: Outpatient Medications Marked as Taking for the 02/01/22 encounter (Hospital Encounter) Medication Sig Last Dose ??? atorvastatin Take 20 mg by mouth once daily ??? eszopiclone TAKE 1 TABLET BY MOUTH EVERY DAY AT BEDTIME NEEDED FOR INSOMNIA ??? levothyroxine Take 50 mcg by mouth once daily ??? metoprolol succinate XL 24hr Take 100 mg by mouth once daily ??? omeprazole Take 40 mg by mouth 2 times daily ??? OXYBUTYNIN CHLORIDE PO Take 2 tablets by mouth once daily ??? oxyCODONE-acetaminophen Take 1 tablet by mouth every 6 hours as needed for Pain ??? VITAMIN E PO ??? Xarelto TAKE 1 TABLET BY MOUTH ONCE DAILY WITH EVENING MEAL No current facility-administered medications for this encounter. Allergies: Allergies Allergen Reactions ??? Latex Other Pt states no. Is fine with gloves. Only allergy is to adhesive. ??? Gadolinium Other ??? Gadopentetate Dimeglumine Urticaria ??? Adhesive Sensitivity Rash Reaction: RASH ??? Green Dye Other Was getting MRI and developed hives while dye infusion. Relevant Problems No relevant active problems Problem List: Patient Active Problem List Diagnosis Date Noted ??? Surgical complication involving both eyes, unspecified complication Priority: Not Prioritized ??? Consecutive esotropia 07/30/2021 Priority: Not Prioritized ??? Consecutive alternating esotropia 07/07/2021 Priority: Not Prioritized ??? Diplopia 07/07/2021 Priority: Not Prioritized ??? Exotropia, intermittent, monocular 12/28/2020 Priority: Not Prioritized ??? Depression 02/28/2017 Priority: Not Prioritized ??? Cervicalgia 07/10/2016 Priority: Not Prioritized ??? Chronic pain disorder 07/10/2016 Priority: Not Prioritized ??? Herniated lumbar intervertebral disc 07/10/2016 Priority: Not Prioritized ??? Arthritis 07/07/2016 Priority: Not Prioritized ??? Ataxia 07/07/2016 Priority: Not Prioritized ??? Disease of thyroid gland 07/07/2016 Priority: Not Prioritized ??? Essential hypertension 07/07/2016 Priority: Not Prioritized ??? Colon [facility] ([facility] 09/15/2021 Patient reported - diagnosis made 08/2021 Medical History: Past Medical History: Diagnosis Date ??? Colon cancer 09/15/2021 Patient reported - diagnosis made 08/2021 ??? Disorder of thyroid hypothyroidism ??? Essential hypertension ??? GERD (gastroesophageal reflux disease) ??? Neuropathy ??? Osteoarthritis ??? Paroxysmal atrial fibrillation 09/2021 on xarelto ??? PONV (postoperative nausea and vomiting) ??? Pure hypercholesterolemia PAT History 01/27/2022 Difficult Mask Ventilation No Anesthesia Awareness No Difficult IV Access No Allergy to Gases/Anesthetic No Alzheimer's Disease No Blood Clot in Brain No Brain Bleed No Dementia No Parkinson's Disease No Stroke No Activity Tolerance Yes Angina No Arrhythmia Yes Cardiac Echo Yes Comment: EF 70% 2021 Congestive heart failure No Coronary Stents No Edema No Hypertension Yes Murmur No Bronchitis No Emphysema No Hyperthyroidism No Hypothyroidism Yes Dialysis No Jaundice No DVT/PE No Surgical History: Past Surgical History: Procedure Laterality Date ??? Back Surgery 2015 ??? COLECTOMY PARTIAL OR HEMICOLECTOMY 09/2021 ??? Hysterectomy ??? OPHTHALMOLOGIC PROCEDURE/SURGERY Bilateral 08/03/2021 Bilateral; BIMEDIAL RECTUS RECESSION WITH DOWNWARD TRANSPOSITION ??? OTHER SURGERY nerve stimulator-and removed ??? Spine Procedure/Surgery COLD ROLL CATCHER Status: No LMP recorded. unknown OB History No obstetric history on file. Covid Vaccine: Lab Results: No results found for requested labs within last 120 days. No results found for requested labs within last 120 days. documented in this encounter Procedure Notes * Henrietta Balbuena APRN-CRNA - 02/01/2022 1:37 PM CDTAssociated Order(s): LMA Placement LMA Placement Procedure/LDA Note: Patient Location: OR. LMA Insertion Date/Time: 02/01/2022 1:11 PM Procedure: LMA. Pretreatment: 100% O2 Induction: standard IV Patient position: sniffing. Mask Ventilation: not attempted Type: LMA Size: 3 Number of Attempts: 1. Placement verified by: direct visualization, bilateral breath sounds, chest auscultation and CO2 monitor Dentition unchanged? Yes Procedure Start Time: 02/01/2022 1:11 PM. Staff Section Anesthesia Provider: Henrietta Balbuena APRN-CRNA, Performed the procedure documented in this encounter Miscellaneous Notes * Anesthesia Transfer of Care - Henrietta Balbuena APRN-CRNA - 02/01/2022 2:42 PM CDT ANESTHESIA TRANSFER OF CARE NOTE Today's Date: 02/01/2022 Date of : 1950 Patient: Kaitlin Bond Procedure(s): Advance lateral rectus BILATERALLY on adjustable suture Surgeon(s): Primary: Sin Romero MD Preop Diagnosis: Pre-op Diagnois: * Consecutive esotropia [H50.00] * History of strabismus surgery [Z98.890] * Diplopia [H53.2] Pre-op Meds (From admission, onward) Start Stop Status Route Frequency Ordered 02/01/22 1104 0.9% NaCl injection 1-10 mL And Linked Group Details -- Dispensed IK PRN 02/01/22 1104 02/01/22 1400 0.9% NaCl injection 3 mL And Linked Group Details -- Dispensed IK EVERY 8 HOURS 02/01/22 1104 02/01/22 1336 dexAMETHasone Sod Phosphate PF injection -- Sent IV PRN 02/01/22 1350 02/01/22 1423 diphenhydrAMINE (Benadryl) injection 25 mg -- Verified IV ONCE PRN 02/01/22 1423 02/01/22 1315 famotidine (Pepcid) injection -- Sent IV PRN 02/01/22 1324 02/01/22 1321 fentaNYL (PF) (Sublimaze) injection -- Sent IV PRN 02/01/22 1331 02/01/22 1423 fentaNYL (PF) (Sublimaze) injection 25 mcg -- Verified IV EVERY 10 MIN PRN 02/01/22 1423 02/01/22 1423 ketorolac (Toradol) injection -- Sent IV PRN 02/01/22 1423 02/01/22 1115 lactated ringers infusion 02/01 111 Dispensed IV CONTINUOUS 02/01/22 1104 02/01/22 1259 lactated ringers infusion -- Sent IV CONTINUOUS PRN 02/01/22 1323 02/01/22 1430 lactated ringers infusion -- Dispensed IV CONTINUOUS 02/01/22 1423 02/01/22 1309 lidocaine HCl (PF) (Xylocaine MPF) 2 % injection -- Sent INFILTRATION PRN 02/01/22 1317 02/01/22 1423 naloxone (Narcan) injection 0.04 mg -- Verified IV POST-OP MULTIPLE 02/01/22 1423 02/01/22 1419 ondansetron (Zofran) injection -- Sent IV PRN 02/01/22 1423 02/01/22 1423 ondansetron (Zofran) injection 4 mg -- Verified IV ONCE PRN 02/01/22 1423 02/01/22 1309 propofol (Diprivan) injection -- Sent IV PRN 02/01/22 1323 Post-op Diagnosis: * Consecutive esotropia [H50.00] * History of strabismus surgery [Z98.890] * Diplopia [H53.2] . Allergies Allergen Reactions ??? Latex Other Pt states no. Is fine with gloves. Only allergy is to adhesive. ??? Gadolinium Other ??? Gadopentetate Dimeglumine Urticaria ??? Adhesive Sensitivity Rash Reaction: RASH ??? Green Dye Other Was getting MRI and developed hives while dye infusion. Vitals: No data found. Lines, Drains, and Airways Type Details Placement Removal Peripheral IV Date: 02/01/22; Time: 1124; Orientation: Posterior, Right; Location: Wrist; Gauge: 22Gauge ; Locals: Trans Dermal; Tolerance: Well 02/01/22 1124 by Lana Lang RN 02/01/22 1305 by Henrietta Balbuena APRN-CRNA Peripheral IV Date: 02/01/22; Time: 1306; Orientation: Left; Location: Hand; Placed By: Dr. Hammond; Gauge: 22 Gauge ; Locals: None; Tolerance: Well 02/01/22 1306 by Henrietta Balbuena APRN-CRNA LMA 02/01/22; 1311 (created via procedure documentation); IDANIA Carr; 100% O2; Standard IV; mask not attempted; LMA; 3.0; Direct visualization, Bilateral breath sounds, Chest Auscultation, CO2 Monitor; 02/01/22; 1433 02/01/22 1311 by Henrietta Balbuena APRN-CRNA 02/01/22 1433 by Henrietta Balbuena APRN-CRNA Intraprocedure I/O Totals Intake LR (Lactated ringers) 600.00 mL Total Intake 600 mL Patient Transfer Location: PACU Transport Airway: spontaneous respirations and supplemental O2 Transport Monitoring: heart rate and continuous pulse oximetry Complications: None Handoff Given? Yes Checklist or Protocol - The cotton handoff elements that must be included in the transfer of care checklist include: 1. Identification of patient. 2. Identification of responsible practitioner (PACU nurse or advanced practitioner). 3. Discussion of pertinent medical history. 4. Discussion of the surgical/procedure course (procedure, reason for surgery, procedure performed). 5. Intraoperative anesthetic management and issue/concerns. 6. Expectations/Plans for the early post-procedure period. 7. Opportunity for questions and acknowledgement of understanding of report from the receiving PACUteam. IDANIA Carr documented in this encounter Plan of Treatment Not on file documented as of this encounter Procedures Procedure Name Priority Date/Time Associated Diagnosis Comments LARYNGEAL MASK AIRWAY Routine 02/01/2022 1:37 PM CDT documented in this encounter Results * LARYNGEAL MASK AIRWAY (02/01/2022 1:37 PM CDT) Narrative Henrietta Balbuena APRN-CRNA - 02/01/2022 1:37 PM CDT Henrietta Balbuena APRN-CRNA ? 02/01/2022 ??1:38 PM LMA Placement Procedure/LDA Note: Patient Location: OR. LMA Insertion Date/Time: ??02/01/2022 1:11 PM Procedure: LMA. Pretreatment: 100% O2 Induction: standard IV Patient position: sniffing. Mask Ventilation: not attempted Type: ??LMA Size: ??3 Number of Attempts: 1. Placement verified by: direct visualization, bilateral breath sounds, chest auscultation and CO2 monitor Dentition unchanged? ??Yes Procedure Start Time: 02/01/2022 1:11 PM. Staff Section ? Anesthesia Provider: Henrietta Balbuena APRN-CRNA, Performed the procedure Clarice Hammond MD GENERAL ANESTHESIA O RDERABLES documented in this encounter Visit Diagnoses Not on filedocumented in this encounter Administered Medications Inactive Administered Medications - up to 3 most recent administrations Medication Order MAR Action Action Date Dose Rate Site dexAMETHasone Sod Phosphate PF injection Intravenous, PRN, Starting on Mon02/01/22 at 1336, Until Mon02/01/22 at 1442, Anesthesia Intra-op $ Given 02/01/2022 1:36 PM CDT 8 mg famotidine (Pepcid) injection Intravenous, PRN, Starting on Mon02/01/22 at 1315, Until Mon02/01/22 at 1442, Anesthesia Intra-op $ Given 02/01/2022 1:15 PM CDT 20 mg fentaNYL (PF) (Sublimaze) injection Intravenous, PRN, Starting on Mon02/01/22 at 1321, Until Mon02/01/22 at 1442, Anesthesia Intra-op $ Given 02/01/2022 2:04 PM CDT 25 mcg $ Given 02/01/2022 1:21 PM CDT 25 mcg ketorolac (Toradol) injection Intravenous, PRN, Starting on Mon02/01/22 at 1423, Until Mon02/01/22 at 1442, Anesthesia Intra-op $ Given 02/01/2022 2:23 PM CDT 30 mg lactated ringers infusion Intravenous, CONTINUOUS PRN, Starting on Mon02/01/22 at 1259, Until Mon02/01/22 at 1442, Anesthesia Intra-op $ New Bag/Syringe 02/01/2022 12:59 PM CDT lidocaine HCl (PF) (Xylocaine MPF) 2 % injection Infiltration, PRN, Starting on Mon02/01/22 at 1309, Until Mon02/01/22 at 1442, Anesthesia Intra-op $ Given 02/01/2022 1:09 PM CDT 50 mg ondansetron (Zofran) injection Intravenous, PRN, Starting on Mon02/01/22 at 1419, Until Mon02/01/22 at 1442, Anesthesia Intra-op $ Given 02/01/2022 2:19 PM CDT 4 mg propofol (Diprivan) injection Intravenous, PRN, Starting on Mon02/01/22 at 1309, Until Mon02/01/22 at 1442, Anesthesia Intra-op $ Given 02/01/2022 1:09 PM CDT 100 mg documented in this encounter Care Teams Mailroom Personnel Relationship Specialty Start Date End Date Gadiel Zavala MD [address] [place] [address] PCP - General 02/15/21 documented as of this encounter
--- OUTSIDE RECORDS SUMMARY | 2024-04-17 11:41 | XMS_ITS | Encounter Summary ---
Author Organization [facility] Address [address] [place] [address] Care Team Providers Care Heater Operator Name Role Phone Gadiel Zavala MD Primary Care Provider Reason for Visit * Reason Comments Follow-up Encounter Details Date Type Department Care Team (Late st Contact Info) Description 03/01/2022 11:00 AM CDT Office Visit [facility] [address] [place] [phone] Drew Green MD [address] [place] [address] [place] [address] Glaucoma suspect of both eyes (Primary Dx); Pseudophakia; Blurred vision, bilateral Social History Tobacco Use Types Packs/Day Years Used Date Smoking Tobacco: Former Cigarettes 0.3 6 0 05/01/1988 - 05/01/1994 Smokeless Tobacco: Never Comments:quit smoking in 199 0 Sex and Gender Information Value Date Recorded Sex Assigned at Not on file Gender Identity Not on file Sexual Orientation Not on file documented as of this encounter Progress Notes * Fred Moore MD - 03/01/2022 11:12 AM CDT Ophthalmology Office Note Subjective: Chief Complaint Patient presents with ??? Follow-up Kaitlin Bond is an 71 year old year old female who presents to clinic for glaucoma suspect followup. Patient states vision is stable since last visit, still has horizontal diplopia after surgery with Nick, no pain/pressure, no flashes of light, frequent floaters, frequent irritation. Drops: AT OU PRN Current Outpatient Medications Medication Sig Dispense Refill ??? atorvastatin (LIPITOR) 20 MG tablet Take 20 mg by mouth once daily ??? eszopiclone (LUNESTA) 3 MG tablet TAKE 1 TABLET BY MOUTH EVERY DAY AT BEDTIME NEEDED FOR INSOMNIA ??? ketorolac (Toradol) 10 MG tablet Take 1 (one) tablet by mouth every 8 hours as needed for Pain 10 tablet 0 ??? levothyroxine (SYNTHROID) 50 MCG tablet Take 50 mcg by mouth once daily ??? losartan (Cozaar) 25 MG tablet ??? metoprolol succinate XL 24hr (Toprol XL) 25 MG tablet TAKE 1 TABLET BY MOUTH ONCE DAILY IN THE MORNING ??? mtsqdigf-tdosexapo-qmkjmcwk (Maxitrol) ophthalmic suspension Instill 1 (one) drop into both eyes 4 times daily 5 mL 0 ??? omeprazole (PRILOSEC) 40 MG capsule Take 40 mg by mouth 2 times daily ??? oxybutynin (Ditropan) 5 MG tablet TAKE 1 TABLET BY MOUTH TWICE DAILY ??? oxyCODONE-acetaminophen (Percocet) 5-325 MG tablet Take 1 tablet by mouth every 6 hours as needed for Pain ??? prednisoLONE acetate (Pred Forte) 1 % ophthalmic suspension Take one drop in both eyes 3 times per day for one week, then decrease to 2 times per day for one week, then decrease to 1 time per dayfor one week, then stop 15 mL 0 ??? VITAMIN E PO ??? Xarelto 20 MG tablet TAKE 1 TABLET BY MOUTH ONCE DAILY WITH EVENING MEAL No current facility-administered medications for this visit. Allergies Allergen Reactions ??? Latex Other Pt states no. Is fine with gloves. Only allergy is to adhesive. ??? Gadolinium Other ??? Gadopentetate Dimeglumine Urticaria ??? Adhesive Sensitivity Rash Reaction: RASH ??? Green Dye Other Was getting MRI and developed hives while dye infusion. Past Medical History: Diagnosis Date ??? Colon cancer (CMS/HCC) 09/15/2021 Patient reported - diagnosis made 08/2021 ??? Disorder of thyroid hypothyroidism ??? Essential hypertension ??? GERD (gastroesophageal reflux disease) ??? Neuropathy ??? Osteoarthritis ??? Paroxysmal atrial fibrillation (CMS/HCC) 09/2021 on xarelto ??? PONV (postoperative nausea and vomiting) ??? Pure hypercholesterolemia Past Surgical History: Procedure Laterality Date ??? Back Surgery 2015 ??? COLECTOMY PARTIAL OR HEMICOLECTOMY 09/2021 ??? Hysterectomy ??? OPHTHALMOLOGIC PROCEDURE/SURGERY Bilateral 08/03/2021 Bilateral; BIMEDIAL RECTUS RECESSION WITH DOWNWARD TRANSPOSITION ??? OPHTHALMOLOGIC PROCEDURE/SURGERY Bilateral 02/01/2022 Bilateral; Advance lateral rectus BILATERALLY on adjustable suture ??? OTHER SURGERY nerve stimulator-and removed ??? Spine Procedure/Surgery No family history on file. Social History Tobacco Use ??? Smoking status: Former Packs/day: 0.25 Years: 6.00 Pack years: 1.50 Types: Cigarettes Quit date: 05/01/1994 Years since quittin.9 ??? Smokeless tobacco: Never ??? Tobacco comments: quit smoking in 1989 Vaping Use ??? Vaping Use: Never used Substance Use Topics ??? Drug use: Never Objective: Base Eye Exam Visual Acuity (Snellen - Linear) Right Left Dist cc 20/20 20/20 -2 Correction: Glasses Tonometry (Tonopen, 11:36 AM) Right Left Pressure 16 17 Tonometry #2 (Applanation, 11:59 AM) Right Left Pressure 18 18 Pachymetry (03/01/2022) Right Left Thickness 576 567 Pupils Pupils Dark Light Shape React APD Right PERRL 3 2 Round Brisk None Left PERRL 3 2 Round Brisk None Visual Vega (Counting fingers) Left Right Full Full Extraocular Movement Right Left Full, Ortho Full, Ortho Neuro/Psych Oriented x3: Yes Mood/Affect: Normal Slit Lamp and Fundus Exam External Exam Right Left External Normal Normal Slit Lamp Exam Right Left Lids/Lashes Normal Normal Conjunctiva/Sclera injection, mild - healing conj injection, mild - healing conj Cornea Krukenberg spindles Krukenberg spindles Anterior Chamber Deep and quiet Deep and quiet Iris Round and reactive Round and reactive Lens Posterior chamber intraocular lens Posterior chamber intraocular lens Anterior Vitreous Normal Normal Fundus Exam Right Left Disc Cupping Cupping C/D Ratio 0.6 0.6 Macula Normal Normal Vessels Normal Normal Refraction Wearing Rx Sphere Cylinder [place] Add Right -0.75 +1.25 025 +2.50 Left -0.50 +1.00 065 +2.50 Type: PAL Assessment/Plan: Kaitlin Bond is a 71 year old female Glaucoma suspect OU For mild asymmetric cupping OS>OD, krukenberg spindle OS>OD - Risk factors: [] family history, []race, []elevated IOP, []optic disc appearance [] thin CCT - Gonio: Unable to tolerate 03/01/22 - CCT:576,567 - Meds/IOP: Range: 15-18,15-19 -IOP 18, 18 - Testing 03/01/22 (today)- no priors: ??? HVF: o OD:partial scotoma nasal. fovea:34, VFI:94, MD:-3.64, unreliable o OS:Partial scotoma temporal. fovea:33 VFI:95%, MD-3.15, unreliability ??? OCT: RNFL:81,88 VC/D:0.60. 0.53. GCL:70,70 Summary: 71 yo woman with a SLEx showing krukenberg spindle vs endothelial pigment OS>OD, normal IOP's OU not on drops. OCT parameters reassuring. HVF with partial inferior right and superior left scotomas though not reliable. Overall reassuring. No drops at this time. ?? ARMIN: The patient has symptoms and signs consistent with dry eye syndrome. I recommend starting non-preserved artificial tears (NPAT's) OU QID + prn. If the frequency of drops required to alleviate symptoms reaches Q 1 hour, then punctum occlusion may be advisable. S/P Femto-Assisted CE/IOL OU: Centered and stable PCIOL within intact and clear capsular bag. No significant PCO. Follow. Residual esotropia ?- unexpected worsening??E(T) and??diplopia after most recent procedure - BMRc 3mm (08/03/21 - Nick) ?- prior XT s/p BLRc 6 (02/05/21 - Amadeo)??with unanticipated overcorrection -at last visit had improved functional vision -Dr. Romero following Plan: No drops at this time, observe. RTC 6 months HVF and OCT, DFE Follow up with Dr. Romero as scheduled Fred Moore MD 03/01/2022 [employer] WORK[employer] Associated attestation - Drew Green MD - 03/20/2022 10:01 PM [employer] I have examined the patient in person with the resident and/or student, verified cotton portions of the exam, reviewed the note and amended it as needed, and discussed the assessment and plan with the resident and/or student, who incorporated the recommendations into their note. I also discussed the exam findings and my recommendations with the patient and any family members in attendance. Their questions were answered fully. Arrangements for follow-up appointments and testing were scheduled priorto the patient's departure. In addition, I note the following: Glaucoma suspect OU For mild asymmetric cupping OS>OD, krukenberg spindle OS>OD - Risk factors: family history, race, elevated IOP, optic disc appearance thin CCT - Gonio: Unable to tolerate 03/01/22 - CCT:576,567 - Meds/IOP: Range: 15-18,15-19 -IOP 18, 18 - Testing 03/01/22 (today)- no priors: CCT: 567, 567 OCT today: vert C/D (0.60, 0.53), avg RNFL (81, 88), avg GCL (70, 70). HVF today: borderline inferior defect OD, borderline superior defect OS, unreliable tests OU. foveal thresh (34, 33), VFI (94%, 93%), Mean Deviation (-3.6, -3.2). Summary: 71 yo woman with a SLEx showing krukenberg spindle vs endothelial pigment OS>OD, normal IOP's OU not on drops. OCT parameters reassuring. HVF with partial inferior right and superior left scotomas though not reliable. Overall reassuring. Plan: No drops at this time. RTC 6 months, OCT-Nerve, HVF, IOP, Gonio. See resident note for further details. Drew Green MD, PhD Attending, Cornea and Anterior Segment Service Date of Service: 03/01/2022 documented in this encounter Plan of Treatment Not on file documented as of this encounter Procedures Procedure Name Priority Date/Time Associated Diagnosis Comments OPH OCT TEST SLU Routine 03/01/2022 11:1 7 AM CDT Blurred vision, bilateral OPH VISUAL FIELD TEST [facility] Routine 03/01/2022 11:07 AM CDT Blurred vision, bilateral documented in this encounter Results * OCT (03/01/2022 11:17 AM CDT) Anatomical Region Laterality Modality Other 03/01/2022 11:1 7 AM CDT Drew Green MD OPHTHALMOLOGY SERVIC ES ORDERABLES * Visual Vega (03/01/2022 11:07 AM CDT) Anatomical Region Laterality Modality Other 03/01/2022 11:0 7 AM CDT Drew Green MD OPHTHALMOLOGY SERVIC ES ORDERABLES documented in this encounter Visit Diagnoses Diagnosis Glaucoma suspect of both eyes- Primary Preglaucoma, unspecified Pseudophakia Lens replaced by other means Blurred vision, bilateral Other specified visual disturbances documented in this encounter Care Teams Heater Operator Relationship Specialty Start Date End Date Gadiel Zavala MD [address] [place] [address] PCP - General 02/15/21 documented as of this encounter
--- OUTSIDE RECORDS SUMMARY | 2024-04-17 11:41 | XMS_ITS | Referral Summary ---
Author Organization [facility] Address [address] [place] [address] Care Team Providers Care Coil Builder Name Role Phone Gadiel Zavala MD Primary Care Provider [phone] Source Comments [facility],non-owned Affiliates and Associated Physician Practices is amultiple site organization consisting of ambulatory clinics and hospital sitesin [place], [place], [place] and [place]. This disclosure is being madepursuant to the Care Everywhere program and may not contain all information available regarding this patient. Last updated 18.[facility] Encounters Date Type Department Care Team Description 02/07/2024 10:00 AM CDT Office Visit [facility] - Ophthalmology [address] [place] [address] [phone] Sin Romero MD Consecutive esotropia (Primary Dx); Diplopia; History of strabismus surgery from Last 3 Months Allergies Active Allergy Reactions Criticality Noted Date Comments Adhesive Sensitivity Rash Medium 02/14/2017 Reaction: RASH Gadopentetate Dimeglumine Urticaria,Other High 02/28 Reaction: Hives, Green Dye Other,Unknown Medium 04/14/2017 Was getting MRI and developed hives while dye infusion. Was getting MRI and developed hives while dye infusion. Latex Other Low 10/31/2017 Pt states no. ??Is fine with gloves. Only allergy is to adhesive. Pt states no. ??Is fine with gloves. Only allergy is to adhesive. Medications * Be aware that medications may not be up to date on this document. Alwaysverify current medications with the patient. Medication Sig Dispensed Refills Start Date End Date Status atorvastatin (LIPITOR) 20 MG tablet Take 1 (one) tablet by mouth once daily 06/15/2021 Active eszopiclone (LUNESTA) 3 MG tablet TAKE 1 TABLET BY MOUTH EVERY DAY AT BEDTIME NEEDED FOR INSOMNIA 06/15/2021 Active levothyroxine (SYNTHROID) 50 MCG tablet Take 1 (one) tablet by mouth once daily 05/24/2021 Active omeprazole (PRILOSEC) 40 MG capsule Take 1 (one) capsule by mouth 2 times daily 05/19/2021 Active VITAMIN E PO Active Xarelto 20 MG tablet TAKE 1 TABLET BY MOUTH ONCE DAILY WITH EVENING MEAL 01/13/2022 Active oxyCODONE-acetamino phen (Percocet) 5-325 MG tablet Take 1 tablet by mouth every 6 hours as needed for Pain Active neomycin-polymyxin- dexameth (Maxitrol) ophthalmic suspension Instill 1 (one) drop into both eyes 4 times daily 5 mL 02/01/2022 Active Additional Information Patient not taking.Reported on 08/02/2023 ketorolac (Toradol) 10 MG tablet Take 1 (one) tablet by mouth every 8 hours as needed for Pain 10 tablet 02/01/2022 Active Additional Information Patient not taking.Reported on 08/02/2023 losartan (Cozaar) 25 MG tablet 01/31/2022 Active oxybutynin (Ditropan) 5 MG tablet TAKE 1 TABLET BY MOUTH TWICE DAILY Active metoprolol succinate XL 24hr (Toprol XL) 25 MG tablet TAKE 1 TABLET BY MOUTH ONCE DAILY IN THE MORNING Active prednisoLONE acetate (Pred Forte) 1 % ophthalmic suspension Take one drop in both eyes 3 times per day for one week, then decrease to 2 times per day for one week, then decrease to 1 time per day for one week, then stop 15 mL 02/08/2022 Active Additional Information Patient not taking.Reported on 08/02/2023 Ferrous Sulfate (IRON PO) Active aspirin EC (Ecotrin) 81 MG tablet Take 1 (one) tablet by mouth once daily 03/29/2022 Active clopidogrel (plaVIX) 75 MG tablet Take 1 (one) tablet by mouth once daily 02/04/2024 Active clotrimazole (Mycelex) 10 MG jose DISSOLVE 1 TABLET BY MOUTH THREE TIMES DAILY 03/31/2023 Active DULoxetine (Cymbalta) 60 MG capsule Take 1 (one) capsule by mouth 2 times daily 11/16/2023 Active ferrous sulfate EC (Ferrous Sulfate) 324 (65 Fe) MG tablet Take 1 (one) tablet by mouth once daily 01/11/2023 Active metroNIDAZOLE (Flagyl) 500 MG tablet Take 1 (one) tablet by mouth 3 times daily For 7 days. 01/27/2023 Active Myrbetriq 25 MG tablet Take 1 (one) tablet by mouth once daily 08/23/2023 Active Myrbetriq 50 MG tablet Take 1 (one) tablet by mouth once daily 09/01/2023 Active nitrofurantoin monohyd macro crystals (Macrobid) 100 MG capsule TAKE 1 CAPSULE BY MOUTH TWICE DAILY FOR 5 DAYS WITH FOOD 11/24/2023 Active pantoprazole EC (Protonix) 20 MG tablet Take 1 (one) tablet by mouth at bedtime 01/24/2024 Active tolterodine ER 24hr (Detrol LA) 4 MG capsule Take 1 (one) capsule by mouth once daily 07/03/2023 Active Selenium 200 MCG Take 200 mcg by mouth Active DULOXETINE HCL PO Take 50 mg by mouth once daily Active Misc Natural Products (NEURIVA PO) Take by mouth. 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 Diplopia 07/07/2021 Exotropia, intermittent, monocular 12/28/2020 Spondylosis of cervical joint without myelopathy 04/14/2017 Spinal stenosis of lumbar re gion without neurogenic claudication 04/14/2017 Depression 02/28/2017 Somatic symptom disorder, pe rsistent, severe, with predominant pain 02/24/2017 Spinal stenosis of cervical region 02/16/2017 Cervicalgia 07/10/2016 Chronic pain disorder 07/10/2016 Herniated lumbar intervertebral disc 07/10/2016 Spondylosis of lumbosacral spine without myelopa thy 07/10/2016 Lumbosacral radiculopathy 07/10/2016 Herniation of intervertebral disc of cervical re gion 07/10/2016 Compression fracture of lumbar vertebra 07/11/19 17 Arthritis 07/07/2016 Ataxia 07/07/2016 Disease of thyroid gland 07/07/2016 Essential hypertension 07/07/2016 Weakness 07/07/2016 Shortness of breath 07/07/2016 Pain of lower extremity 07/07/2016 Pain of hand 07/07/2016 Memory impairment 07/07/2016 Surgical complication involv ing both eyes, unspecified complication Resolved Problems Problem Noted Date Diagnosed Date Resolved Date Constipation 07/07/2016 03/29/2022 Social History Tobacco Use Types Packs/Day Years Used Date Smoking Tobacco: Former Cigarettes 0.3 6 0 05/01/1988 - 05/01/1994 Smokeless Tobacco: Never Comments:quit smoking in 199 0 Sex and Gender Information Value Date Recorded Sex Assigned at Not on file Gender Identity Not on file Sexual Orientation Not on file Last Filed Vital Signs Vital Sign Reading [...] Mass Index 20.37 02/01/2022 11:09 AM CDT Plan of Treatment Not on file Care Teams Coil Builder Relationship Specialty Start Date End Date Gadiel Zavala MD [address] [place] [address] PCP - General 02/15/21
--- OUTSIDE RECORDS SUMMARY | 2024-04-17 11:41 | XMS_ITS | Encounter Summary ---
Author Organization [facility] Address [address] [place] [address] Care Team Providers Care Architectural Design Professor Name Role Phone Gadiel Zavala MD Primary Care Provider [phone] Reason for Visit * Reason Comments Double Vision Encounter Details Date Type Department Care Team (Late st Contact Info) Description 12/01/2021 10:30 AM CDT Office Visit [facility] [address] [place] [phone] Sin Romero MD [address] [place], [place] [phone] Consecutive esotropia (Primary Dx); History of strabismus surgery; Diplopia Social History Tobacco Use Types Packs/Day Years Used Date Smoking Tobacco: Former Cigarettes 0.3 6 0 05/01/1988 - 05/01/1994 Smokeless Tobacco: Never Sex and Gender Information Value Date Recorded Sex Assigned at Not on file Gender Identity Not on file Sexual Orientation Not on file documented as of this encounter Progress Notes * Cheyenne Julian - 12/01/2021 11:40 AM CDT Images from the original note were not included. Kaitlin Bond is a 71 year old female who is being seen at the request of Dr. Rangel ref. provider found for Chief Complaint Patient presents with ??? Double Vision . Kaitlin Bond is a 71 year old female with h/o V-ET s/p BMRc 3mm with full TW infraplacement (08/03/21). Paradoxical response to surgery - now larger ET than before, with abduction defecit. Past h/o X(T) s/p BLRc 6mm (02/05/21). Given 30^MEEK fresnel prism by [facility], continued wear after last exam. Patient frustrated with prism. States the glare is extremely bothersome and she still has diplopia on side gazes. (Note: had discussed these limitations of fresnel prism with patient last visit). Endorses frequent falls and difficulty doing daily tasks because of the diplopia Her main concern is how quickly Dr. Romero can re-operate. She wants to go back to how her eyes were Med Hx: colon cancer s/p resection (10/2021 - no further treatment needed), ataxia, thyroid dz, spinal stenosis, and lumbar disc injury Patient accompanied by spouse. Allergies: is allergic to latex, gadolinium, gadopentetate dimeglumine, adhesive sensitivity, and green dye. EXAM: Base Eye Exam Visual Acuity (Snellen - Linear) Right Left Dist cc 20/25 +3 20/25 +4 Correction: Glasses Pupils Pupils Right PERRL Left PERRL Strabismus Exam Reading #1 (Edited by: Cheyenne Julian) Method: Alternate cover Correction: cc Distance Near Near +3DS Near Bifocals E(T)' 7 0 0 +1 ET 18-20 +2 0 0 ET 25 -2 0 ET 25 0 -2 ET 30 LHT 1 0 0 - ET 25 -1 0 0 LHT 3 R Tilt L Tilt Nystagmus: small square wave jerks Reading #2 (Edited by: Cheyenne Julian) Distance Near Near +3DS Near Bifocals X(T)' 14 0 0 +1 +2 0 0 -2 0 X 2 0 -2 0 0 - -1 0 0 Comments Exam 1: prism removed Exam 2: over fresnel prism MRE: With 25^MEEK in place, endorses single vision in primary gaze and up to about 40 degrees in right and left gaze. Able to fuse with 25^MEEK at near as well. Slit Lamp and Fundus Exam External Exam Right Left External Normal Normal Pen Light Exam Right Left Lids/Lashes Normal Normal Conjunctiva/Sclera White and quiet White and quiet Cornea Clear Clear Anterior Chamber Deep and quiet Deep and quiet Iris Round and reactive Round and reactive Lens Clear Clear Refraction Wearing Rx Sphere Cylinder [place] Add Horz Prism Right -0.75 +1.25 025 +2.50 Left -0.50 +1.00 065 +2.50 30^ MEEK Fresnel prism fresnel Type: PAL IMPRESSION: Residual, paradoxical esotropia, small LH(T) - unexpected worsening E(T) and diplopia after most recent procedure - BMRc 3mm (08/03/21 - Nick) - prior XT s/p BLRc 6 (02/05/21 - Amadeo) with unanticipated overcorrection - consider possible CN palsy or other neurologic basis - slight AHP Diplopia - resolution of diplopia with current fresnel prism (30^MEEK OS) - patient disturbed by distortion caused by fresnel Dry Eye - using OTC artificial tears 4x/d - no subjective improvement with drop use, c/o eye burning, frequent blinking Colon cancer - s/p resection, no further treatment needed, cleared by oncologist Other medical diagnosis - Ataxia (wheelchair use), thyroid disorder, spinal stenosis and h/o compression fracture/disc herniation of lumbar disc RECOMMENDATION: Proceed with surgery (likely BLR adv). Patient plans to schedule today. F/u in clinic for 1 week post op after surgery. Continue to wear fresnel until procedure. Will also follow up with Dr. Green on 01/27/22 to evaluate excessive tearing/dry eye. Offered patient reassurance and expectations and goals of treatment, given past unexpected responses with prior surgeries. Reviewed use of prism and how to turn head to avoid areas of diplopia. Patient expressed understanding. NEGRO Mauro (12/01/2021, 11:46) Lenghty discussion with patient/ The risks, benefits and alternatives of strabismus surgery (including discussion regarding re-operation risks and risks pertaining to vision loss, bleeding, scarring, decreased binocular vision, amblyopia, diplopia or need for spectacle correction or prism) explained to patient and who wishto proceed Will call to schedule on elective basis Planned procedure is ADVANCEMENT of Lateral Rectus bilaterally on adjustable suture Sin Romero MD documented in this encounter Plan of Treatment Not on file documented as of this encounter Visit Diagnoses Diagnosis Consecutive esotropia- Primary Esotropia, unspecified History of strabismus surgery Diplopia documented in this encounter Care Teams Architectural Design Professor Relationship Specialty Start Date End Date Gadiel Zavala MD [address] [place] [address] PCP - General 02/15/21 documented as of this encounter
--- OUTSIDE RECORDS SUMMARY | 2024-04-17 11:41 | XMS_ITS | Clinical Summary ---
Author Organization [facility] Address [address] [place] [address] Care Team Providers Care Hospice Registered Nurse Name Role Phone Gadiel Zavala MD Primary Care Provider [phone] Source Comments [facility],non-owned Affiliates and Associated Physician Practices is amultiple site organization consisting of ambulatory clinics and hospital sitesin [place], [place], [place] and [place]. This disclosure is being madepursuant to the Care Everywhere program and may not contain all information available regarding this patient. Last updated 18.[facility] Allergies Active Allergy Reactions Criticality Noted Date [...] Active Problems Problem Noted Date Diagnosed Date Fall 03/01/2022 Paroxysmal atrial fibrillation 12/01/2021 Colon cancer 09/15/2021 [...] Diagnosed Date Resolved Date Constipation 07/07/2016 03/29/2022 Encounters Date Type Department Care Team Description 02/07/2024 10:00 AM CDT Office Visit [facility] - Ophthalmology [address] [place] [phone] Sin Romero MD Consecutive esotropia (Primary Dx); Diplopia; History of strabismus surgery from Last 3 Months Social History Tobacco Use Types Packs/Day Years [...] 02/01/2022 11:09 AM CDT Plan of Treatment Health Maintenance Due Date Last Done Comments BONE DENSITY TESTING 1950 COLOGUARD (AGES 45-75) - COL ON CA SCREENING 1950 COLON MONITORING 1950 COLONOSCOPY - COLON CA SCREENING 1950 CT COLONOGRAPHY - COLON CA SCREENING 1950 Colorectal Cancer Screening 1950 FIT - COLON CA SCREENING 1950 FLEX SIG - COLON CA SCREENING 1950 MAMMOGRAM 1950 HEPATITIS C SCREENING 07/17/1966 DTAP/TDAP/TD VACCINES (1 - Tdap) 07/22/1967 ZOSTER VACCINE (1 of 2) 1998 PNEUMOCOCCAL VACCINE 65+ (1 of 1 - PCV) 2013 DEPRESSION SCREENING 05/01/2023 MEDICARE AWV ? CALENDAR YEAR 2023 Respiratory Syncytial Virus (RSV) Vaccine Pt: or over 60 yrs (1 - 1-dose 75+ series) 07/22/2023 COVID-19 VACCINE ( - 2023-2 5 season) 2023 INFLUENZA VACCINE (#1) 2023 03/01/2017 HEPATITIS B VACCINE Aged Out No longe r eligible based on patient's age to complete this topic HIB VACCINE Aged Out No longer eligi ble based on patient's age to complete this topic HPV VACCINE Aged Out No longer eligi ble based on patient's age to complete this topic MENINGOCOCCAL VACCINE Aged Out No adan javier eligible based on patient's age to complete this topic Care Teams Hospice Registered Nurse Relationship Specialty Start Date End Date Gadiel Zavala MD [address] [place] [address] PCP - General 02/15/21
--- OUTSIDE RECORDS SUMMARY | 2024-04-17 11:41 | XMS_ITS | Encounter Summary ---
Author Organization [facility] Address [address] [place] [address] Care Team Providers Care Metaphysicist Name Role Phone Gadiel Zavala MD Primary Care Provider Reason for Visit * Auth/Cert Specialty Diagnoses / Procedures Referred By Contac t Referred To Contact Diagnoses Consecutive esotropia History of strabismus surgery Diplopia Consecutive esotropia History of strabismus surgery Diplopia Procedures CORRECTION STRABISMUS (RECESSION/RESECTION EYE MUSCLE) Referral ID Status Reason Start Date Expiration Date Visits Re quested Visits Authorized [id number] 1 1 Encounter Details Date Type Department Care Team (Late st Contact Info) Description 02/01/2022 1:00 PM CDT - 02/01/2022 3:20 PM CDT Surgery [facility] [address] [place] [phone] Sin Romero MD [address] [place] [address] Advance lateral rectus BILATERALLY on adjustable suture Surgery Details Date/Time Status Location OR Service Patient Class Case Class Case Type Trauma Case? 02/01/2022 1:[address] [facility] 01 Ophthalmology Surgery Day Care Panel 1 Procedure LRB Anes Op Region Wound Class Comments Advance lateral rectus BILAT ERALLY on adjustable suture Bilateral General Eye Clean Surgeon Surgeon Role Service Panel Sin Romero MD Primary Ophthalmology 1 Special Needs ANESTHESIA GENERAL W/LOCAL,SUPINE documented in this encounter Social History Tobacco [...] SURGERY DISCHARGE SUMMARY Patient ID: Kaitlin Bond [id number] 71 year old 1950 Date of Surgery: 02/01/2022 Procedure performed: Bilateral lateral rectus advancement with adjustable suture Discharge Date: 02/01/2022 Discharge Diagnoses: Present on Admission: None Discharge Condition: Stable. Doing well. Discharge Medication: Medication List START taking these medications ketorolac 10 MG tablet Commonly known as: Toradol Take 1 (one) tablet by mouth every 8 hours as needed for Pain bvgldvtl-hjhhymsun-acscjael ophthalmic suspension Commonly known as: Maxitrol Instill [...] Your Medications These medications were sent to [facility] [phone] [address] [address] [address] ?? ketorolac 10 MG tablet Information about where to get these medications is not yet available Ask your nurse or doctor about these medications ?? qutocxin-ykfgrtbcs-jnnttkft ophthalmic suspension Discharge Procedure Orders Why you were hospitalized Order Specific Question Answer Comments Your discharge diagnosis is: Esotropia [[id number]] When to call your provider At and [...] FOLLOW-UP APPOINTMENT: Tomorrow at 8:30 AM at [facility], [address] [place] [address], [id number]. The ophthalmology office is located on the [facility]. Office INSTRUCTIONS: - KEEP PATCH ON [...] reach us for after hour emergencies at [phone], press 0 to talk to the dishtank operator, then ask to speak with the menagerie superintendent day habilitation specialist. Disposition: home Follow-up: Tomorrow at 8:30 AM, call if problems. Sagar Vazquez MD 02/01/2022 2:47 PM documented in this encounter Discharge Instructions * Discharge Instructions* Sagar Vazquez MD - 02/01/2022 2:43 PM CDT Images from the original note were not included. POST-OPERATIVE INSTRUCTIONS EYE MUSCLE SURGERY FOLLOW-UP APPOINTMENT: Tomorrow at 8:30 AM at [facility], [address] [place] [address], [id number]. The ophthalmology office is located on the [facility] [place] [facility]. Office INSTRUCTIONS: - KEEP PATCH ON [...] reach us for after hour emergencies at [phone], press 0 to talk to the dishtank operator, then ask to speak with the menagerie superintendent day habilitation specialist. documented in this encounter Medications at Time [...] 05/24/2021 losartan (Cozaar) 25 MG tablet 01/31/2022 glbyjpqw-qalnsankr-hnpi meth (Maxitrol) ophthalmic suspension Instill 1 (one) [...] Medical History: Diagnosis Date ??? Colon cancer ([facility]/HCC) 09/15/2021 Patient reported - diagnosis made 08/2021 [...] Abdomen: Non-distended Neurologic: Grossly normal Assessment: Kaitlin Javier Ronda is a 71 year old female with [...] [age] year old Date of : 1950 [facility] #: [id number] Date of Operation: 02/02/2022 ATTENDING SURGEON: Sin Romero M.D. WOODWORKING MACHINE SETTER: Sagar Vazquez MD PREOPERATIVE DIAGNOSIS: Esotropia History [...] Mcfarland RN - 02/01/2022 2:29 PM CDT [id number] Using an Incentive Spirometer An incentive spirometer [...] heart rate Last Reviewed Date: 2021 ?? [phone] [employer] All rights reserved. This information is not [...] W/LOCAL,SUPINE documented in this encounter Visit Diagnoses Diagnosis Consecutive esotropia Esotropia, unspecified History of strabismus surgery Diplopia documented in this encounter Administered Medications Inactive Administered [...] of normal saline every 8 hours., Pre-op bupivacaine PF (Marcaine PF) 0.5 % injection PRN, Starting on Mon02/01/22 at 1354, Until Mon02/01/22 at 1442, Intra-op $ Given 02/01/2022 1:54 PM CDT 2 mL Left Eye diphenhydrAMINE (Benadryl) injection 25 mg 25 mg, [...] choice, PACU phenylephrine (Mydfrin) 2.5% ophthalmic solution PRN, Starting on Mon02/01/22 at 1336, Until Mon02/01/22 at 1442, Intra-op $ Given 02/01/2022 1:36 PM CDT 1 drop Eye-Bilateral tobramycin-dexAMETHasone (Tobradex) 0.3-0.1 % ophthalmic suspension PRN, Starting on Mon02/01/22 at 1422, Until Mon02/01/22 at 1442, Intra-op $ Given 02/01/2022 2:22 PM CDT 1 drop Eye-Bilateral documented in this encounter Active and Recently [...] Pre-op documented in this encounter Care Teams Metaphysicist Relationship Specialty Start Date End Date Gadiel Zavala MD [address] [facility] [address] [place] [address] PCP - General 02/15/21 documented as of this encounter
--- OUTSIDE RECORDS SUMMARY | 2024-04-17 11:41 | XMS_ITS | Encounter Summary ---
Author Organization [facility] Address [address] [facility] [place] [address] Care Team Providers Care Police Lieutenant Patrol Name Role Phone Gadiel Zavala MD Primary Care Provider [phone] Reason for Visit * Reason Comments Dry Eye Dry eye per Dr. Romero Encounter Details Date Type Department Care Team (Late [facility]) Description 01/27/2022 10:00 AM CDT Office Visit [facility] [address] [place] [phone] Drew Green MD [address] [place] [address] [place] [address] Meibomian gland disease, unspecified laterality (Primary Dx); Dry eyes; History of strabismus surgery Social History Tobacco Use Types Packs/Day Years Used Date Smoking Tobacco: Former Cigarettes 0.3 6 0 05/01/1988 - 05/01/1994 Smokeless Tobacco: Never Comments:quit smoking in 199 0 Sex and Gender Information Value Date Recorded Sex Assigned at Not on file Gender Identity Not on file Sexual Orientation Not on file documented as of this encounter Progress Notes * Mis Harrell MD - 01/27/2022 11:21 AM CDT Ophthalmology Progress Note Subjective: Kaitlin D Ronda is an 71 year old Chief Complaint Patient presents with ??? Dry Eye Dry eye per Dr. Nick Javier Ronda is a 71 year old female, who presents for dry eye evaluation per Dr. Romero. Patient is accompanied by her . Patient has surgery( Advance lateral rectus BILATERALLY on adjustable suture) scheduled with Dr. Romero next Monday(02/01/2022) Patient c/o moderate tearing/dryness OU x one year, states she is using Clear eyes QID OU without much of improvement of her symptoms. Past Medical History: Diagnosis Date ??? Colon [...] SURGERY nerve stimulator-and removed ??? Spine Procedure/Surgery Current Outpatient Medications Medication Sig Dispense Refill [...] MOUTH ONCE DAILY IN THE MORNING ??? rhcywbxo-ckhjheekd-vkmpruim (Maxitrol) ophthalmic suspension Instill 1 (one) drop [...] - Linear) Right Left Dist cc 20/25 -2 20/60 -2 Dist ph cc NI PH Correction: Glasses Tonometry (Applanation, 10:51 AM) Right Left Pressure 18 19 Skintting Pupils Dark Light Shape React APD Right 3.5 3 Round Slow None Left 3.5 3 Round Slow None Visual Vega (Counting fingers) Left Right Full Full Neuro/Psych Oriented x3: Yes Mood/Affect: Normal Dilation Both eyes: 1.0% Mydriacyl, 2.5% Elvis Synephrine @ 11:47 AM Slit Lamp and Fundus Exam External Exam Right Left External Normal Normal Slit Lamp Exam Right Left Lids/Lashes Telangiectasia, Irregular lid margins Telangiectasia, Irregular lid margins Conjunctiva/Sclera White and quiet White and quiet Cornea +1 SPEE, BUT < 10 SEC +1 SPEE, endopigent inferiorly, BUT < 10 Anterior Chamber Deep and quiet Deep and quiet Iris Round and reactive Round and reactive Lens Posterior chamber intraocular lens Posterior chamber intraocular lens Anterior Vitreous Normal Normal Fundus Exam Right Left Disc PPA PPA C/D Ratio 0.55 0.65 Macula Normal Normal Vessels Normal Normal Periphery Normal Normal Refraction Wearing Rx Sphere Cylinder [place] Add Horz Prism Right -0.75 +1.25 025 +2.50 Left -0.50 +1.00 065 +2.50 30^ MEEK Fresnel prism fresnel Age: 1yr Type: PAL Assessment/Plan: Residual, paradoxical esotropia, small LH(T) ??- unexpected worsening E(T) and diplopia after most recent procedure - BMRc 3mm (08/03/21 - Nick) - prior XT s/p BLRc 6 (02/05/21 - Amadeo) with unanticipated overcorrection - consider possible CN palsy or other neurologic basis ??- slight AHP Diplopia? - resolution of diplopia with current fresnel prism (30^MEEK OS)? - patient disturbed by distortion caused by fresnel Dry Eye - using OTC artificial tears 4x/d - no subjective improvement with drop use, c/o eye burning, frequent blinking Glaucoma suspect , both eyes - On exam : C/D ratio elevated, krukenberg spindle OU - RTC in 1 month for IOP check , HVF and OCT OU PLAN - PFAT q2 h OU - RTC in 1 month for IOP check , HVF and OCT OU - Follow up with Dr Romero I discussed the above with the patient. All questions answered to the best of my ability. Patient was discussed with my attending physician Dr Peter Harrell MD Ophthalmology Resident Physician [facility] 01/27/2022 8:36 AM Associated attestation - Drew Green MD - 02/10/2022 8:37 AM CDT I have examined the patient in person [...] departure. In addition, I note the following: ARMIN: The patient has symptoms and signs consistent with dry eye syndrome. I recommend starting non-preserved artificial tears (NPAT's) OU QID + prn. If the frequency of drops required to alleviate symptoms reaches Q 1 hour, then punctum occlusion may be advisable. Glaucoma Suspect: SLEx shows krukenberg spindle OS>OD, mild asymmetric cupping OS>OD, normal IOP's OU. Plan: RTC 1-2 months (after fully recovered from upcoming strabismus surgery), OCT- Nerve/GCL, HVF 24-2 SUSANNAH Faster, IOP, CCT, Gonio. S/P Femto-Assisted CE/IOL OU: Pseudophakia OU. Centered and stable PCIOL within intact and clear capsular bag. No significant PCO. Follow. Drew Green MD, PhD Attending, Cornea and Anterior Segment Service Date of Service: 01/27/2022 documented in this encounter Plan of Treatment Not on file documented as of this encounter Visit Diagnoses Diagnosis Meibomian gland disease, unspecified laterality- Primary Dry eyes Tear film insufficiency, unspecified History of strabismus surgery documented in this encounter Care Teams Police Lieutenant Patrol Relationship Specialty Start Date End Date Gadiel Zavala MD [address] [facility] [address] [address] PCP - General 02/15/21 documented as of this encounter
--- OUTSIDE RECORDS SUMMARY | 2024-04-17 11:41 | XMS_ITS | Encounter Summary ---
Author Organization [facility] Address [address] [facility] [place] [address] Care Team Providers Care Fire Safety Inspector Name Role Phone Gadiel Zavala MD Primary Care Provider [phone] Reason for Visit * Reason Comments Double Vision F/u Encounter Details Date Type Department Care Team (Late st Contact Info) Description 05/11/2022 9:00 AM SIDE GUIDER Office Visit [facility] [address] [place] [phone] Sin Romero MD [address] [place], [place] [id number] Consecutive exotropia of both eyes (Primary Dx); Diplopia; History of strabismus surgery Social History Tobacco [...] encounter Progress Notes * Cheyenne Julian - 05/11/2022 9:42 AM CST Images from the original note were not included. Kaitlin Bond is a 71 year old female who is being seen at the request of Dr. Rangel ref. provider found for Chief Complaint Patient presents with ??? Double Vision F/u Patient accompanied by spouse. Allergies: is allergic to latex, gadolinium, gadopentetate dimeglumine, adhesive sensitivity, and green dye. EXAM: Base Eye Exam Visual Acuity (Snellen - Linear) Right Left Dist cc 20/30 +3 20/25 Correction: Glasses Pupils Pupils Right PERRL Left PERRL Additional Tests Stereo Fly: + Animals: 3/3 Circles: 4/9 Day 4 Dot Distance: suppress OS Near: suppress OS Strabismus Exam Method: Alternate cover Correction: cc Distance Near Near +3DS N Bifocals XT' 25 LHT' 3 0 0 -1 LX(T) 14-16 0 0 0 LX(T) 9 0 -1 LX(T) 10 0 0 LX(T) 6 LH(T) 6 0 0 0 LX(T) 8 0 0 0 Fuses in free space at distance Single with above near prism (needs vertical) Slit Lamp and Fundus Exam External Exam Right Left External Normal Normal Pen Light Exam Right Left Lids/Lashes Normal Normal Conjunctiva/Sclera White and quiet White and quiet Cornea Clear Clear Anterior Chamber Deep and quiet Deep and quiet Iris Round and reactive Round and reactive Lens Posterior chamber intraocular lens Posterior chamber intraocular lens IMPRESSION: H/o Exotropia - s/p BLRc 6 (02/05/21 - Amadeo)??with unanticipated overcorrection Consecutive Esotropia - s/p BMRc 3mm (08/03/21 - Nick) - Unexpected worsening, paradoxical ET post 2nd surgery with small LH(T), slight AHP Now Recurrent X(T) -s/p BLR advance to original insertion on adjustable (02/01/22 - Nick) - today has improved distance alignment, still moderate tropia at near - CI pattern Diplopia ?- improved symptoms, able to fuse D>N, small residual left face turn - reports fusion at near despite poor control, tropia measured in clinic Dry Eye ?- using OTC artificial tears??4x/d ?- no subjective improvement with drop use, c/o eye burning, frequent blinking Glaucoma suspect OU - monitored by Dr. Green, no intervention recommended at this time Pseudophakia OU Colon cancer ?-??s/p resection, no further treatment needed, cleared by oncologist Other medical diagnosis ?- Ataxia (wheelchair use), thyroid disorder, spinal stenosis and h/o compression fracture/disc herniation of lumbar disc RECOMMENDATION: Doing well. Now 3 months post op from most recent surgery. Discussed convergence exercises with patient - reassuring that improvement may continue given better distance alignment and some fusion at near on stereotesting. Can consider prism if alignment stabilizes. F/u in 3 months for re-evaluation. NEGRO Mauro (05/11/2022, 09:57) Patient seen and examined with bankruptcy processor Please see note for further details. I revised the history, exam, assessment and plan. In addition I note: Interval history: has noticed a SMALL improvement Exam: well healed conjncitvea Sensorimotor exam reveals Consecutive XT with some motor/sensory fusion Assessment/Plan: Trial of convergence exercisses 05/11/2022 10:08 AM Sin Romero MD GUIDER documented in this encounter Plan of Treatment Not on file documented as of this encounter Visit Diagnoses Diagnosis Consecutive exotropia of both eyes- Primary Diplopia History of strabismus surgery documented in this encounter Care Teams Fire Safety Inspector Relationship Specialty Start Date End Date Gadiel Zavala MD [address] [place] [address] PCP - General 02/15/21 documented as of this encounter
--- OUTSIDE RECORDS SUMMARY | 2024-04-17 11:41 | XMS_ITS | Encounter Summary ---
Author Organization [facility] Address [address] [place] [address] Care Team Providers Care Counter Waitress/Waiter Name Role Phone Gadiel Zavala MD Primary Care Provider [phone] Encounter Details Date Type Department Care Team (Late st Contact Info) Description 02/16/2022 9:00 AM CDT Office Visit [facility] [address] [place] [phone] Sin Romero MD [address] [place] [address] Consecutive esotropia (Primary Dx); History of strabismus [...] encounter Progress Notes * Cheyenne Julian - 02/16/2022 9:51 AM CDT Images from the original note were not included. Kaitlin Bond is a 71 year old female who is being seen at the request of Dr. Claire mcgovern. provider found for No chief complaint on file. . Kaitlin Bond is a 71 year old female with h/o X(T) s/p BLRc 6mm (02/05/21 - Amadeo), then consecutive V-ET, s/p BMRc 3mm with 1 TW infraplacement (09/01/21 - Nick). Then paradoxical ET with residual -2 abduction deficit. Returning now for PO week 2 - s/p BLR advance to original insertion on adjustable (02/01/22). Recurrent X(T) on last exam - no adjustment made on POD#1. Still noting some discomfort OD>OS with mild discharge. Having intermittent horizontal diplopia N>D. Able to pull images together with effort but not all the time. Still using post op drops 2x/day and artificial tears daily. No specific concerns noted today Patient accompanied by spouse. Allergies: is allergic to latex, gadolinium, gadopentetate dimeglumine, adhesive sensitivity, and green dye. EXAM: Base Eye Exam Visual Acuity (Snellen - Linear) Right Left Dist cc 20/30 +2 20/20 Pupils Pupils Right PERRL Left PERRL Additional Tests Stereo Fly: - Animals: 0/3 Circles: 0/9 Strabismus Exam Correction: cc Distance Near Near +3DS Near Bifocals LXT' 30 LHT' 5 0 0 +1 LX(T) 25 +2 0 0 LH(T) 4 LX(T) 12 0 -1.5 LX(T) 20-25 -0.5 0 LX(T) 18 LH(T) 4 LH(T) 3 0 0 0 LX(T) 18 -1 0 0 LH(T) 4 R Tilt L Tilt AHP: mild left turn, right tilt Minimal improvement with offsetting prism Most comfortable with 10^BI Slit Lamp and Fundus Exam External Exam Right Left External Normal Normal Pen Light Exam Right Left Lids/Lashes Normal Normal Conjunctiva/Sclera White and quiet White and quiet Cornea Clear Clear Anterior Chamber Deep and quiet Deep and quiet Iris Round and reactive Round and reactive Lens Clear Clear Refraction Wearing Rx Sphere Cylinder [place] Add Right -0.75 +1.25 025 +2.50 Left -0.50 +1.00 065 +2.50 Type: PAL IMPRESSION: Residual, paradoxical esotropia, small LH(T) ?- unexpected worsening E(T) and diplopia after most recent procedure - [id number] (08/03/21 - Nick) ?- prior XT s/p BLRc 6 (02/05/21 - Amadeo) with unanticipated overcorrection ?- consider possible CN palsy or other neurologic basis ?- slight AHP Now Recurrent X(T) - now s/p BLR advance to original insertion on adjustable - intermittent control of deviation in distance, mostly tropic at near Diplopia ?- improved symptoms, able to fuse D>N, small residual left face turn Dry Eye ?- using OTC artificial tears 4x/d ?- no subjective improvement with drop use, c/o eye burning, frequent blinking Colon cancer ?- s/p resection, no further treatment needed, cleared by oncologist Other medical diagnosis ?- Ataxia (wheelchair use), thyroid disorder, spinal stenosis and h/o compression fracture/disc herniation of lumbar disc RECOMMENDATION: Stable. Patient has better functional use of eyes at this stage post most recent surgery. Would notrecommend prism at this time, allowing patient continue fusing under her own power. F/u in 2 months for re-evaluation NEGRO Mauro (02/16/2022, 09:58) Early post of improvement Sin Romero MD documented in this encounter Plan of Treatment Not on file documented as of this encounter Visit Diagnoses Diagnosis Consecutive esotropia- Primary Esotropia, unspecified History of strabismus surgery Diplopia documented in this encounter Care Teams Counter Waitress/Waiter Relationship Specialty Start Date End Date Gadiel Zavala MD [address] [facility] [address] [address] PCP - General 02/15/21 documented as of this encounter
--- OUTSIDE RECORDS SUMMARY | 2024-04-17 11:41 | XMS_ITS | Encounter Summary ---
Author Organization [facility] Address [address] [place] [address] Care Team Providers Care Line Helper Name Role Phone Gadiel Zavala MD Primary Care Provider [phone] Reason for Visit * Reason Comments Double Vision Follow up Encounter Details Date Type Department Care Team (Late st Contact Info) Description 08/02/2023 8:30 AM CDT Office Visit [facility] - Ophthalmology [address] [place] [address] Sin Romero MD [address] [place] [address] Consecutive exotropia of both eyes (Primary Dx); [...] as of this encounter Progress Notes * Sin Romero MD - 08/02/2023 10:05 AM CDT Images from the original note were not included. Kaitlin Bond is a 73 year old female who is being seen at the request of Dr. Rangel ref. provider found for Chief Complaint Patient presents with ??? Double Vision Follow up . MRE: Kaitlin Bond is a 73 year old female with h/o H/o Residual XT, small LH(T) s/p BLR adv tooriginal insert on adj (02/01/22), BMRc 3mm (08/03/21 - Nick), BLRc 6mm (02/05/21 - Amadeo). Plan after last visit was to return to optical for prism placement. Pt didn't recall that plan and did not return to have prism placed on updated glasses. Still having symptomatic diplopia since lastexam in July 2022. C/o blurred vision, mostly at near (specifically in downgaze, can elevate eyes to primary gaze and lift glasses up to focus better. No new changes Patient accompanied by spouse (recently had head trauma from an accident - post concussion). Allergies: is allergic to latex, gadopentetate dimeglumine, adhesive sensitivity, and green dye. EXAM: Base Eye Exam Visual Acuity (Snellen - Linear) Right Left Dist cc 20/25 +4 20/25 +4 Pupils Pupils Right PERRL Left PERRL Additional Tests Stereo Fly: - Strabismus Exam Method: Alternate cover Correction: cc Distance Near Near +3DS N Bifocals XT' 18 0 0 - XT 16 +1 0 0 LHT 2 XT 14 0 -0.5 XT 12-14 0 -1 XT 10 LHT 1 LHT 2 0 0 0 XT 8 -1 0 0 LHT 4 R Tilt L Tilt XT 12 XT 12-14 RHT 1 AHP: Yes: right tilt ~16-20 deg No subjective vertical diplopia or torsion in left tilt or at near (despite objective LHT) Fuses best at near with 12^BI, but can tolerate distance amount as well in reading position Fuses at dist with 8^BI Slit Lamp and Fundus Exam External Exam Right Left External Normal Normal Pen Light Exam Right Left Lids/Lashes Normal Normal Conjunctiva/Sclera White and quiet White and quiet Cornea Clear Clear Anterior Chamber Deep and quiet Deep and quiet Iris Round and reactive Round and reactive Lens PCIOL PCIOL Refraction Wearing Rx Sphere Cylinder Downey Add Right -0.50 +0.75 020 +2.50 Left -0.50 +1.25 155 +2.50 Age: 1yr Type: PAL Final Rx Near VA Right Left 8^BI Type: fresnel Fresnel on patient's present glasses IMPRESSION: Prior paradoxical esotropia, small LH(T) ?- unexpected worsening??E(T) and??diplopia after most recent procedure - BMRc 3mm (08/03/21 - Nick) ?- prior XT s/p BLRc 6 (02/05/21 - Amadeo)??with unanticipated overcorrection ?- consider possible CN palsy or other neurologic basis ?- slight AHP ?? 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 Diplopia ?- Improved with prism - larger right tilt today, but denies any torsion or vertical diplopia ?? Dry Eye ?- h/o using OTC artificial tears ?- no subjective improvement with drop use, c/o eye burning, frequent blinking ?? Colon cancer ?-??s/p resection, no further treatment needed, cleared by oncologist ?? Other medical diagnosis ?- Ataxia (wheelchair use), thyroid disorder, spinal stenosis and h/o compression fracture/disc herniation of lumbar disc RECOMMENDATION: Given 8^BI prism OS. Discussed if vertical develops, can adjust in the future. If measurements stable, can consider ground in prism next glasses update. If near not well managed with current amount, can put different prism on OTC readers to better address symptoms. Plan to return in 6 months. If stable, okay to cancel appt and be seen PRN. Would not recommend additional treatment NEGRO Mauro (08/02/2023, 12:27) Patient seen and examined with farm helper Please see note for further details. I revised the history, exam, assessment and plan. In addition I note: Interval history: patient had poor understanding of the plan Exam: diplopia Sensorimotor exam reveals Consecutive Exotropia with fusion potential Assessment/Plan: Trial with fresnel prism FIRST 08/02/2023 4:27 PM Sin Romero MD documented in this encounter Plan of Treatment Not on file documented as of this encounter Visit Diagnoses Diagnosis Consecutive exotropia of both eyes- Primary Diplopia History of strabismus surgery documented in this encounter Care Teams Line Helper Relationship Specialty Start Date End Date Gadiel Zavala MD [address] [place] [address] PCP - General 02/15/21 documented as of this encounter
--- OUTSIDE RECORDS SUMMARY | 2024-04-17 11:41 | XMS_ITS | Encounter Summary ---
Author Organization [facility] Address [address] [place] [address] Care Team Providers Care Camp Boss Name Role Phone Gadiel Zavala MD Primary Care Provider [phone] Reason for Visit * Auth/Cert Specialty Diagnoses / Procedures Referred By Contac t Referred To Contact Diagnoses Consecutive alternating esotropia Diplopia Consecutive alternating esotropia Diplopia Procedures CORRECTION STRABISMUS (RECESSION/RESECTION EYE MUSCLE) Referral ID Status Reason Start Date Expiration Date Visits Re quested Visits Authorized [id number] 1 1 Encounter Details Date Type Department Care Team (Late st Contact Info) Description 08/03/2021 1:09 PM CDT Anesthesia Event [facility] [address] [place] [address] Fred Hu MD [address] [place] [id number] Joe Thomas Anes Asst [address] [place] [address] Anesthesia Record Procedure Summary Procedure Name Responsible Anesthesiologist Anesthesia Start Time Anesthesia Stop Time BIMEDIAL RECTUS RECESSION WITH DOWNWARD TRANSPOSITION (Bilateral: Eye) Fred Hu MD 08/03/21 1309 08/03/21 1430 Events Date Time Event Comment 08/03/2021 1137 1309 An Start 1309 Pt In Room 1309 An Start Data 1312 Anes Timeout 1313 PT Reassessment 1314 Induction 1315 An LMA 1316 Anes Ready 1333 Time Out Anesthesia part icipated in timeout at the time documented in the record by nursing 1335 Proc Start 1424 Proc Stop 1424 An Emergence 1424 An LMA Removed 1425 an stop data 1426 Pt out of Room 1426 ANPTO2 1430 An Stop Meds Name Total lidocaine PF 2% 50 mg propofol 200mg/20mL injection 150 mg dexamethasone 10 mg/ml PF injection 8 mg famotidine 20 mg/2mL injection 20 mg ondansetron 4mg/2mL injection 4 mg ePHEDrine injection 15 mg fentaNYL 100 mcg/2ml injection 100 mcg LR (Lactated ringers) 0 mL * Agents Name Exp. Sevoflurane Exp. N2O O2 Air Insp. Sevoflurane N2O * Blood No blood administrations on file. Lines, Drains, and Airways Type Details Placement Removal Peripheral IV Date: 08/03/21; Time : 105; Orientation: Posterior, Right; Placed By: LOGAN Hernandez; Tolerance: Well 08/03/21 1057 by Caitlin Hong RN 08/03/21 1548 by Seun Mcfarland RN LMA 08/03/21; 1315 (created via procedure documentation); Flakito Rosas; 100% O2; Standard IV; easy mask; LMA; 3.0; Direct visualization, Bilateral breath sounds, Chest Auscultation, CO2 Detector; 08/03/21; 1424 08/03/21 1315 by Joe Thomas Anes Asst 08/03/21 1424 by Joe Thomas Anes Asst Procedural Site (Incision) 08/03/21; 1417; Eye; 08/03/21; 2210 08/03/21 1417 by Miguel Valenzuela 08/03/21 2210 by Generic, Auto Release documented in this encounter Social History Tobacco Use Types Packs/Day Years Used Date Smoking Tobacco: Former Cigarettes 0.3 6 0 05/01/1988 - 05/01/1994 Smokeless Tobacco: Never Sex and Gender Information Value Date Recorded Sex Assigned at Not on file Gender Identity Not on file Sexual Orientation Not on file documented as of this encounter Progress Notes * Fred Hu MD - 08/03/2021 4:14 PM CDT ANESTHESIA POSTOP EVALUATION NOTE Procedure: BIMEDIAL RECTUS RECESSION WITH DOWNWARD TRANSPOSITION (Bilateral Eye) Kaitlin Bond is a 71 year old female Patient Vitals for the past 6 hrs: BP Temp Pulse Resp SpO2 Pain Rating Score #1 Pain Scale/Observation Pulse - (SPO2/Cuff) 08/03/21 1109 116/69 98.5 ??F (36.9 ??C) 64 -- 100 % 4 N -- 08/03/21 1429 104/69 97.6 ??F (36.4 ??C) -- -- -- -- -- -- 08/03/21 1435 -- -- 70 13 100 % -- -- 69 bpm 08/03/21 1440 115/71 -- 67 12 100 % -- -- 66 bpm 08/03/21 1445 113/79 -- 78 12 100 % -- -- 78 bpm 08/03/21 1450 110/76 -- 77 11 100 % 0 N 76 bpm 08/03/21 1500 110/76 -- 79 10 99 % 0 N 78 bpm 08/03/21 1510 110/83 -- 79 12 98 % 0 N 78 bpm 08/03/21 1520 124/85 -- 81 14 98 % -- -- 81 bpm 08/03/21 1530 110/68 -- 72 14 100 % -- -- 71 bpm 08/03/21 1540 116/73 -- 76 17 -- 0 N -- Anesthesia Type: general LMA Pre-op Diagnosis Codes: * Consecutive alternating esotropia [H50.05] * Diplopia [H53.2] Mental Status: awake, alert and sufficiently recovered from acute administration of anesthesia to participate in the evaluation Neuro Status: No numbness, tingling or visual disturbances Respiratory Function: natural Cardiac Function: stable Postop Pain: acceptable to the patient Postop Hydration: adequate Postop Nausea: none Assessment: no apparent anesthetic complications, patient tolerated procedure well and no evidence of recall Patient Disposition: Release from Anesthesia Care COMPLICATIONS: No complications documented. * Fred Hu MD - 08/03/2021 11:34 AM CDT 71 ANESTHESIA PREOPERATIVE EVALUATION NOTE Procedure: BIMEDIAL RECTUS RECESSION WIHT DOWNWARD TRANSPOSITION (Bilateral Eye) NPO status: Since Midnight (08/03/2021 11:13 AM) Last Solids/Dairy: 1830 (08/03/2021 10:46 AM) Last Clear Liquids: 1830 (08/03/2021 10:46 AM) Vitals: Patient Vitals for the past 6 hrs: BP Temp Pulse SpO2 Pain Rating Score #1 08/03/21 1109 116/69 98.5 ??F (36.9 ??C) 64 100 % 4 ANESTHESIA PRE-EVALUATION NOTE History of Present Illness: [...] Sleep Apnea Risk: No PONV: Yes GERD: No Poor Exercise Tolerance: No Recent Chest Pain: No Shortness of Breath: No AICD/Pacemaker: No Renal Disease: No ANESTHESIA PLAN ASA Score: 2 NPO Status: No solids since midnight and No liquids within 2 hours Anesthesia Plan: general Planned Induction: intravenous Planned Postop Destination: PACU Anesthetic plan was discussed with: patient Anesthetic Plan discussion was: Consented The patient's procedural Anesthetic Plan was discussed with the certified pathology assistant and ORACLE SOFTWARE ENGINEER. BMI, Height, Weight Tobacco History Estimated body mass index is 19.91 kg/m?? as calculated from the following: Height as of this encounter: 1.626 m (5' 4 ). Weight as of this encounter: 52.6 kg (116 lb). Social History Tobacco Use Smoking Status Former Smoker ??? Packs/day: 0.25 ??? Years: 6.00 ??? Pack years: 1.50 ??? Types: Cigarettes ??? Quit date: 05/01/1994 ??? Years since quittin.2 Smokeless Tobacco Never Used Alcohol History Drug History Social History Substance and Sexual Activity Alcohol Use None Comment: rare Social History Substance and Sexual Activity Drug Use Never Outpatient Medications: Inpatient Medications: Outpatient Medications Marked as Taking for the 08/03/21 encounter (Hospital Encounter) Medication Sig Last Dose ??? atorvastatin Take 20 mg by mouth once daily 08/02/2021 at Unknown time ??? celecoxib TAKE 1 CAPSULE BY MOUTH TWICE DAILY NEEDED FOR PAIN 08/02/2021 at Unknown time ??? DULoxetine Take 60 mg by mouth 08/02/2021 at Unknown time ??? eszopiclone TAKE 1 TABLET BY MOUTH EVERY DAY AT BEDTIME NEEDED FOR INSOMNIA 08/02/2021 at Unknown time ??? levothyroxine Take 50 mcg by mouth once daily 08/02/2021 at Unknown time ??? metoprolol succinate XL 24hr Take 100 mg by mouth once daily 08/02/2021 at Unknown time ??? omeprazole Take 40 mg by mouth 2 times daily 08/02/2021 at Unknown time ??? OXYBUTYNIN CHLORIDE PO Take 2 tablets by mouth once daily 08/02/2021 at Unknown time Current Facility-Administered Medications Medication Dose Last Admin ??? 0.9% NaCl 3 mL And ??? 0.9% NaCl 1-10 mL ??? lactated ringers New Bag at 08/03/21 1116 Allergies: Allergies Allergen Reactions ??? Latex Other Pt states no. Is fine with gloves. Only allergy is to adhesive. ??? Gadolinium Other ??? Gadopentetate Dimeglumine Urticaria ??? Adhesive Sensitivity Rash Reaction: RASH ??? Green Dye Other Was getting MRI and developed hives while dye infusion. Relevant Problems No relevant active problems Problem List: Patient Active Problem List Diagnosis Date Noted ??? Consecutive esotropia 07/30/2021 Priority: Not Prioritized ??? Alternating esotropia with V pattern 07/07/2021 Priority: Not Prioritized ??? Diplopia 07/07/2021 Priority: Not Prioritized Medical History: Past Medical History: Diagnosis Date ??? Disorder of thyroid ??? Essential hypertension ??? GERD (gastroesophageal reflux disease) ??? Neuropathy ??? Osteoarthritis ??? PONV (postoperative nausea and vomiting) ??? Pure hypercholesterolemia Surgical History: Past Surgical History: Procedure Laterality Date ??? Back Surgery 2016 ??? Hysterectomy ??? OTHER SURGERY nerve stimulator-and removed ??? Spine Procedure/Surgery Covid Vaccine: Lab Results: No results found for requested labs within last 120 days. No results found for requested labs within last 120 days. documented in this encounter Procedure Notes * Joe Thomas Anes Asst - 08/03/2021 1:56 PM CDTAssociated Order(s): LMA Placement LMA Placement Procedure/LDA Note: Patient Location: OR. LMA Insertion Date/Time: 08/03/2021 1:15 PM Procedure: LMA. Pretreatment: 100% O2 Induction: standard IV Patient position: supine. Mask Ventilation: easy Type: LMA Size: 3 Number of Attempts: 1. Cuff volume (mL): 5 Cuff inflation pressure (CM H20): 20 Placement verified by: direct visualization, bilateral breath sounds, chest auscultation and CO2 detector Dentition unchanged? Yes Procedure Start Time: 08/03/2021 1:15 PM. Staff Section Anesthesia Provider: Joe Thomas Anes Asst, Performed the procedure Provider #1: Fred Hu MD. documented in this encounter Miscellaneous Notes * Anesthesia Transfer of Care - Joe Thomas Anes Asst - 08/03/2021 2:30 PM CDT ANESTHESIA TRANSFER OF CARE NOTE Today's Date: 08/03/2021 Date of : 1950 Patient: Kaitlin Bond Procedure(s): BIMEDIAL RECTUS RECESSION WITH DOWNWARD TRANSPOSITION Surgeon(s): Primary: Sin Romero MD Resident - Assisting: Eloina Maguire MD Preop Diagnosis: Pre-op Diagnois: * Consecutive alternating esotropia [H50.05] * Diplopia [H53.2] Pre-op Meds (From admission, onward) Start Stop Status Route Frequency Ordered 08/03/21 1044 0.9% NaCl injection 1-10 mL And Linked Group Details -- Dispensed IK PRN 08/03/21 1044 08/03/21 1400 0.9% NaCl injection 3 mL And Linked Group Details -- Dispensed IK EVERY 8 HOURS 08/03/21 1044 08/03/21 1045 lactated ringers infusion 08/03 1044 Dispensed IV CONTINUOUS 08/03/21 1044 Post-op Diagnosis: * Consecutive alternating esotropia [H50.05] * Diplopia [H53.2] . Allergies Allergen Reactions ??? Latex Other Pt states no. Is fine with gloves. Only allergy is to adhesive. ??? Gadolinium Other ??? Gadopentetate Dimeglumine Urticaria ??? Adhesive Sensitivity Rash Reaction: RASH ??? Green Dye Other Was getting MRI and developed hives while dye infusion. Vitals: No data found. Lines, Drains, and Airways Type Details Placement Removal Peripheral IV Date: 08/03/21; Time: 105; Orientation: Posterior, Right; Location: Hand; Placed By:LOGAN Hernandez; Gauge: 20 Gauge; Locals: None; Tolerance: Well 08/03/21 1057 by Caitlin Hong RN LMA 08/03/21; 1315 (created via procedure documentation); Flakito Rosas Asst; 100% O2; Standard IV; easy mask; LMA; 3.0; Direct visualization, Bilateral breath sounds, Chest Auscultation, CO2 Detector; 08/03/21; 1424 08/03/21 1315 by oJe Thomas Anes Asst 08/03/21 1424 by Joe Thomas Anes Asst Intraprocedure I/O Totals None Patient Transfer Location: PACU Transport Airway: spontaneous [...] understanding of report from the receiving PACUteam. Flakito Rosas Asst documented in this encounter Plan of Treatment Not on file documented as of this encounter Procedures Procedure Name Priority Date/Time Associated Diagnosis Comments LARYNGEAL MASK AIRWAY Routine 08/03/2021 1:56 PM CDT documented in this encounter Results * LARYNGEAL MASK AIRWAY (08/03/2021 1:56 PM CDT) Narrative Joe Thomas Anes Asst - 08/03/2021 1:56 PM CDT Joe Thomas Anes Asst ? 08/03/2021 ??1:57 PM LMA Placement Procedure/LDA Note: Patient Location: OR. LMA Insertion Date/Time: ??08/03/2021 1:15 PM Procedure: LMA. Pretreatment: 100% O2 Induction: standard IV Patient position: supine. Mask Ventilation: easy Type: ??LMA Size: ??3 Number of Attempts: 1. Cuff volume (mL): ??5 Cuff inflation pressure (CM H20): ??20 Placement verified by: direct visualization, bilateral breath sounds, chest auscultation and CO2 detector Dentition unchanged? ??Yes Procedure Start Time: 08/03/2021 1:15 PM. Staff Section ? Anesthesia Provider: Joe Thomas Anes Asst, Performed the procedure ? Provider #1: Fred Hu MD. Fred Hu MD GENERAL ANESTHESIA O RDERABLES documented in this encounter Visit Diagnoses Not on filedocumented in this encounter Administered Medications Inactive Administered Medications - up to 3 most recent administrations Medication Order MAR Action Action Date Dose Rate Site dexAMETHasone Sod Phosphate PF injection Intravenous, PRN, Starting on Mon08/03/21 at 1321, Until Mon08/03/21 at 1430, Anesthesia Intra-op $ Given 08/03/2021 1:21 PM CDT 8 mg ePHEDrine injection Intravenous, PRN, Starting on Mon08/03/21 at 1327, Until Mon08/03/21 at 1430, Anesthesia Intra-op $ Given 08/03/2021 1:31 PM CDT 5 mg $ Given 08/03/2021 1:27 PM CDT 10 mg famotidine (Pepcid) injection Intravenous, PRN, Starting on Mon08/03/21 at 1305, Until Mon08/03/21 at 1430, Anesthesia Intra-op $ Given 08/03/2021 1:05 PM CDT 20 mg fentaNYL (PF) (Sublimaze) injection Intravenous, PRN, Starting on Mon08/03/21 at 1339, Until Mon08/03/21 at 1430, Anesthesia Intra-op $ Given 08/03/2021 1:57 PM CDT 25 mcg $ Given 08/03/2021 1:49 PM CDT 25 mcg $ Given 08/03/2021 1:39 PM CDT 50 mcg lactated ringers infusion Intravenous, CONTINUOUS PRN, Starting on Mon08/03/21 at 1245, Until Mon08/03/21 at 1430, Anesthesia Intra-op $ New Bag/Syringe 08/03/2021 12:45 PM CDT lidocaine hcl (PF) (Xylocaine MPF) 2 % injection Infiltration, PRN, Starting on Mon08/03/21 at 1314, Until Mon08/03/21 at 1430, Anesthesia Intra-op $ Given 08/03/2021 1:14 PM CDT 50 mg Ondansetron HCl (Zofran) injection Intravenous, PRN, Starting on Mon08/03/21 at 1321, Until Mon08/03/21 at 1430, Anesthesia Intra-op $ Given 08/03/2021 1:21 PM CDT 4 mg propofol (Diprivan) injection Intravenous, PRN, Starting on Mon08/03/21 at 1314, Until Mon08/03/21 at 1430, Anesthesia Intra-op $ Given 08/03/2021 1:14 PM CDT 150 mg documented in this encounter Care Teams Camp Boss Relationship Specialty Start Date End Date Gadiel Zavala MD [address] [facility] [address] [address] PCP - General 02/15/21 documented as of this encounter
--- OUTSIDE RECORDS SUMMARY | 2024-04-17 11:41 | XMS_ITS | Encounter Summary ---
Author Organization [facility] Address [address] [address] Care Team Providers Care Vegetable Farmer Name Role Phone Gadiel Zavala MD Primary Care Provider [phone] Reason for Visit * Reason Comments Post-Op Encounter Details Date Type Department Care Team (Late st Contact Info) Description 02/08/2022 3:30 PM CDT Office Visit [facility] [address] [place] [address] Sin Romero MD [address] [place], [place] [id number] Consecutive esotropia (Primary Dx); History of strabismus surgery Social History Tobacco [...] this encounter Patient Instructions * Patient Instructions* Sagar Vazquez MD - 02/08/2022 4:13 PM CDT Eye Drop Instructions - Take Prednisolone (white or pink top) one drop in both eyes THREE TIMES A DAY for one week, then decrease to TWO TIMES A DAY for one week, then decrease to ONCE A DAY for one week, then STOP Follow up on MondayFebruary 16 at 9:00 AM Call with any new or worsening eye problems. During clinic hours you can reach us at our office number, . You can reach us for after hour emergencies at [phone], press 0 to talk to the metal drill operator, then ask to speak with the director sterile processing plant operator control room operator. documented in this encounter Progress Notes * Sagar Vazquez MD - 02/08/2022 4:19 PM CDT Images from the original note were not included. Progress Note [facility] Ophthal[facility] Chief Complaint Patient presents with ??? Post-Op HPI: Kaitlin Bond is a 71 year old female who presents ofr POW1 s/p strabismus surgery. Patient says she has been doing fairly well, able to see single looking straight ahead most of the time. Still having double vision at near and on lateral gazes The following was also reviewed and updated: Current Outpatient Medications Medication Sig Dispense Refill [...] MOUTH ONCE DAILY IN THE MORNING ??? okyunmnz-cdnsncuru-xpvlriyr (Maxitrol) ophthalmic suspension Instill 1 (one) drop [...] Medical History: Diagnosis Date ??? Colon cancer ([facility]/HCC) 09/15/2021 Patient reported - diagnosis made 08/2021 [...] History Tobacco Use ??? Smoking status: Former Smoker Packs/day: 0.25 Years: 6.00 Pack years: 1.50 Types: Cigarettes Quit date: 05/01/1994 Years since quittin.7 ??? Smokeless tobacco: Never Used ??? Tobacco comment: quit smoking in 1989 Vaping Use ??? Vaping Use: Never used Substance Use Topics ??? Drug use: Never Base Eye Exam Visual Acuity (Snellen - Linear) Right Left Dist sc 20/20 20/25 Dist ph sc 20/20 Pupils Pupils Right PERRL Left PERRL Neuro/Psych Oriented x3: Yes Mood/Affect: Normal Strabismus Exam Correction: cc Distance Near Near +3DS Near Bifocals LXT' 30 - - - - - - LXT 18 - - - - - - LXT 12 - - - - LX(T) 14-16 - - - - LXT 10 - - - - - - LXT 12 - - - - - - Slit Lamp and Fundus Exam External Exam Right Left External Normal Normal Slit Lamp Exam Right Left Lids/Lashes Telangiectasia, Irregular lid margins Telangiectasia, Irregular lid margins Conjunctiva/Sclera post op conj medially, vicryl sutures post op conj medially, vicryl suture Cornea Clear Clear Anterior Chamber Deep and quiet Deep and quiet Iris Round and reactive Round and reactive Lens Posterior chamber intraocular lens Posterior chamber intraocular lens Anterior Vitreous Normal Normal ?? IMPRESSION: POW1 s/p bilateral lateral rectus advancement w/ adjustable suture 02/01/22 - No adjustments needed to be made with adjustable suture in left eye POD1 - VA stable today - Patient reports that she is able to see single now straight ahead at distance most of the time, still sees double in some side gazes and at near - Measurements today with stable X(T) on exam in primary, XT at near and lateral gazes - Patient counseled that double vision can continue to improve in the coming weeks - Encouraged to try and hold single vision in primary gaze as much as possible Hx Residual, paradoxical esotropia, small LH(T) ?- unexpected worsening E(T) and diplopia after most recent procedure - IXEt0mg (08/03/21 - Nick) ?- Originally patient XT s/p BLRc 6 (02/05/21 - Amadeo) with unanticipated overcorrection ?- consider possible CN palsy or other neurologic basis ?- slight AHP - now s/p bilateral lateral rectus advancement w/ OAC 02/01/22 ?? RECOMMENDATION: - Discontinue Maxitrol drops - Start Prednisolone TID for one week, then decrease to BID for one week, then decrease to qday forone week, then stop - RTC on February 16 at 9:[address] Romero, call sooner with any new or worsening concerns All questions were answered to the best of my ability. Patient verbalized understanding and is in agreement with the plan. Sagar Vazquez M.D (Jake). Ophthalmology, PGY-4 documented in this encounter Plan of Treatment Not on file documented as of this encounter Visit Diagnoses Diagnosis Consecutive esotropia- Primary Esotropia, unspecified History of strabismus surgery documented in this encounter Care Teams Vegetable Farmer Relationship Specialty Start Date End Date Gadiel Zavala MD [address] [facility] [address] [place] [address] PCP - General 02/15/21 documented as of this encounter
--- OUTSIDE RECORDS SUMMARY | 2024-04-17 11:41 | XMS_ITS | Encounter Summary ---
Author Organization [facility] Address [address] [facility] [place] [address] Care Team Providers Care Spa Receptionist Name Role Phone Gadiel Zavala MD Primary Care Provider [phone] Reason for Visit * Reason Comments Double Vision F/u for prism Encounter Details Date Type Department Care Team (Late st Contact Info) Description 09/15/2021 10:00 AM CDT Office Visit [facility] [address] [facility], [place] [address] Sin Romero MD [address] [place], [place] [phone] Diplopia (Primary Dx); Consecutive esotropia Social History Tobacco Use Types Packs/Day Years Used Date Smoking Tobacco: Former Cigarettes 0.3 6 0 05/01/1988 - 05/01/1994 Smokeless Tobacco: Never Sex and Gender Information Value Date Recorded Sex Assigned at Not on file Gender Identity Not on file Sexual Orientation Not on file documented as of this encounter Progress Notes * Cheyenne Julian - 09/15/2021 11:18 AM CDT Images from the original note were not included. Kaitlin Bond is a 71 year old female who is being seen at the request of Dr. Claire mcgovern. provider found for No chief complaint on file. . Kaitlin Bond is a 71 year old female with h/o XT s/p BLRc 6mm (02/05/21 - Dr. Childs), then consecutive V-ET. Then s/p BMRc 3mm with 1 TW infraplacement (08/03/21 - Nick). Now larger, paradoxicalET with residual -2 abduction deficit. Concern for possible underlying CN palsy. Given 30^MEEK fresnel on progressive lens RX and returning for f/u Medical Hx: recent diagnosis of colon cancer - has f/u to discuss stage and management plan with surgery team next week (seen by provider in [place]). Patient wearing prism. Denies diplopia with glasses on, even in side gazes. No new vertical componet. Very bothered by prismatic effect of blurred vision and rainbow appearance OS - concerned if she has to live with this (originally described theses symptoms as failure of prism until reassured theythe effect of the fresnel). Patient accompanied by . Allergies: is allergic to latex, gadolinium, gadopentetate dimeglumine, adhesive sensitivity, and green dye. EXAM: Base Eye Exam Visual Acuity (Snellen - Linear) Right Left Dist cc 20/25 20/20 Initially blurred vision OD>OS, but once instructed to blink and adjust head from AHP to more centered position, improved clarity noted Additional Tests Stereo Fly: + Animals: 0/3 Circles: 0/9 Strabismus Exam Method: Alternate cover Correction: cc Distance Near Near +3DS Near Bifocals XT' 6 0 0 -1/2 X(T) 4 +1 +1 +1 X 2 -1.5 0 X flick 0 -2 XT 2 LH 1 LH 1 LHT 4 0 0 0 E 2 0 -TR 0 LH 2 R Tilt L Tilt E 2 X flick LH 1 AHP: Yes: slight chin down, right tilt Patient subjectively improved with additional 4^MEEK OS distance and near over current prism glasses - objectively increases amount of X(T) measured. Able to appreciate SV until noting diplopia at 12^MEEK OU in the distance , diplopic at additional 5^MEEK at near Slit Lamp and Fundus Exam External Exam Right Left External Normal Normal Pen Light Exam Right Left Lids/Lashes Normal Normal Conjunctiva/Sclera Injection, mild Injection, mild Cornea Clear Clear Anterior Chamber Deep and quiet Deep and quiet Iris Round and reactive Round and reactive Lens Posterior chamber intraocular lens Posterior chamber intraocular lens Refraction Wearing Rx Sphere Cylinder Aledo Add Horz Prism Right -0.75 +1.25 025 +2.50 Left -0.50 +1.00 065 +2.50 30^ MEEK Fresnel prism fresnel Type: PAL IMPRESSION: Consecutive Esotropia, small LH(T) - unexpected worsening of diplopia after most recent procedure - BMRc 3mm (08/03/21 - Nick) - prior XT s/p BLRc 6 (02/05/21 - Amadeo) - consider possible CN palsy or other neurologic basis - slight AHP Diplopia - resolution of diplopia with current fresnel prism (30^MEEK OS) - able to tolerate additional 4-5^ MEEK OS with subjective improvement in clarity despite increase inX(T). - patient disturbed by distortion caused by fresnel Dry Eye - using OTC artificial tears and steroid drops (currently on 1x/d, will finish taper this week) - no subjective improvement with drop use, c/o eye burning, frequent blinking Colon cancer - new diagnosis since last visit Other medical diagnosis - Ataxia (wheelchair use), thyroid disorder, spinal stenosis and h/o compression fracture/disc herniation of lumbar disc. RECOMMENDATION: Would recommend continuing use of fresnel prism and primary management at this stage. Once other evolving health concerns are stabilized, can consider additional EMS at that time. Referal to cornea recommended for evaluation of dry eye syndrome PRN - patient will schedule in thefuture. Lengthy discussion with patient on how best maximize vision, as her primary complaint at this time is her subjective blurring. Mentioned mulifactorial causes of her visual disturbance, including her ARMIN, AHP with may not allow her to look through her optical center in her glasses, and diplopia and fresnel use. Reassured patient that the rainbow effect and blurred acuity OS is directly related to fresnel, and ground in prism is not an option secondary to the size of prism needed to help her symptoms. NEGRO Mauro (09/15/2021, 11:32) Patient seen and examined with wire photo operator Please see note for further details. I revised the history, exam, assessment and plan. In addition I note: Interval history: other signficant NEW medical issues take precedence over strabismus, d/w patient and Exam: Sensorimotor exam (bobby) reveals Still with persistent unexplained increased ET Fusion with prism glasses Assessment/Plan: Continue with prisms Consider ADDING prism 2nd opininon with [facility]/Charlene 09/16/2021 3:46 PM Sin Romero MD documented in this encounter Plan of Treatment Not on file documented as of this encounter Visit Diagnoses Diagnosis Diplopia- Primary Consecutive esotropia Esotropia, unspecified documented in this encounter Care Teams Spa Receptionist Relationship Specialty Start Date End Date Gadiel Zavala MD [address] [facility] [address] [place] [address] PCP - General 02/15/21 documented as of this encounter
--- OUTSIDE RECORDS SUMMARY | 2024-04-17 11:41 | XMS_ITS | Patient Health Summary ---
Author Organization [facility] Address [address] [facility] [place] [address] Care Team Providers Care Insulation Board Head Saw Operator Name Role Phone Gadiel Zavala MD Primary Care Provider Note from [facility],non-owned Affiliates and Associated Physician Practices is amultiple site organization consisting of ambulatory clinics and hospital sitesin [place], [place], [place] and [place]. This disclosure is being madepursuant to the Care Everywhere program and may not contain all information available regarding this patient. Last updated 18.[facility] Allergies * Adhesive Sensitivity(Rash) -Medium Criticality * Gadopentetate Dimeglumine(Urticaria,Other) -High Criticality * Green Dye(Other,Unknown) -Medium Criticality * Latex(Other) -Low Criticality * Gadolinium(Other) -High Criticality,Inactive Medications * Be aware that medications may not be up to date on this document. Alwaysverify current medications with the patient. * atorvastatin (LIPITOR) 20 MG tablet(Started 06/15/2021) Take 1 (one) tablet by mouth once daily * eszopiclone (LUNESTA) 3 MG tablet(Started 06/15/2021) TAKE 1 TABLET BY MOUTH EVERY DAY AT BEDTIME NEEDED FOR INSOMNIA * levothyroxine (SYNTHROID) 50 MCG tablet(Started 05/24/2021) Take 1 (one) tablet by mouth once daily * omeprazole (PRILOSEC) 40 MG capsule(Started 05/19/2021) Take 1 (one) capsule by mouth 2 times daily * VITAMIN E PO * Xarelto 20 MG tablet(Started 01/13/2022) TAKE 1 TABLET BY MOUTH ONCE DAILY WITH EVENING MEAL * oxyCODONE-acetaminophen (Percocet) 5-325 MG tablet Take 1 tablet by mouth every 6 hours as needed for Pain * wkencgxz-orouzorxc-vjwglgwe (Maxitrol) ophthalmic suspension(Started 02/01/2022) Instill 1 (one) drop into both eyes 4 times daily * ketorolac (Toradol) 10 MG tablet(Started 02/01/2022) Take 1 (one) tablet by mouth every 8 hours as needed for Pain * losartan (Cozaar) 25 MG tablet(Started 01/31/2022) * oxybutynin (Ditropan) 5 MG tablet TAKE 1 TABLET BY MOUTH TWICE DAILY * metoprolol succinate XL 24hr (Toprol XL) 25 MG tablet TAKE 1 TABLET BY MOUTH ONCE DAILY IN THE MORNING * prednisoLONE acetate (Pred Forte) 1 % ophthalmic suspension(Started 02/08/2022) Take one drop in both eyes 3 times per day for one week, then decrease to 2 times per day for one week, then decrease to 1 time per day for one week, then stop * Ferrous Sulfate (IRON PO) * aspirin EC (Ecotrin) 81 MG tablet(Started 03/29/2022) Take 1 (one) tablet by mouth once daily * clopidogrel (plaVIX) 75 MG tablet(Started 02/04/2024) Take 1 (one) tablet by mouth once daily * clotrimazole (Mycelex) 10 MG jose(Started 03/31/2023) DISSOLVE 1 TABLET BY MOUTH THREE TIMES DAILY * DULoxetine (Cymbalta) 60 MG capsule(Started 11/16/2023) Take 1 (one) capsule by mouth 2 times daily * ferrous sulfate EC (Ferrous Sulfate) 324 (65 Fe) MG tablet(Started 01/11/2023) Take 1 (one) tablet by mouth once daily * metroNIDAZOLE (Flagyl) 500 MG tablet(Started 01/27/2023) Take 1 (one) tablet by mouth 3 times daily For 7 days. * Myrbetriq 25 MG tablet(Started 08/23/2023) Take 1 (one) tablet by mouth once daily * Myrbetriq 50 MG tablet(Started 09/01/2023) Take 1 (one) tablet by mouth once daily * nitrofurantoin monohyd macro crystals (Macrobid) 100 MG capsule(Started 11/24/2023) TAKE 1 CAPSULE BY MOUTH TWICE DAILY FOR 5 DAYS WITH FOOD * pantoprazole EC (Protonix) 20 MG tablet(Started 01/24/2024) Take 1 (one) tablet by mouth at bedtime * tolterodine ER 24hr (Detrol LA) 4 MG capsule(Started 07/03/2023) Take 1 (one) capsule by mouth once daily * Selenium 200 MCG Take 200 mcg by mouth * DULOXETINE HCL PO Take 50 mg by mouth once daily * Misc Natural Products (NEURIVA PO) Take by mouth. Active Problems Problem Noted Date Diagnosed Date Fall 03/01/2022 Paroxysmal atrial fibrillation 12/01/2021 Colon cancer 09/15/2021 Consecutive esotropia 07/30/2021 Consecutive alternating esotropia 07/07/2021 [...] Mass Index 20.37 02/01/2022 11:09 AM CDT Procedures * OPH OCT TEST [facility](Performed 03/01/2022) Performed for Blurred vision, bilateral * OPH VISUAL FIELD TEST [facility](Performed 03/01/2022) Performed for Blurred vision, bilateral * CORRECTION STRABISMUS (RECESSION/RESECTION EYE MUSCLE)(Performed 02/01/2022) Performed for Consecutive esotropia, History of strabismus surgery, Diplopia * LARYNGEAL MASK AIRWAY(Performed 02/01/2022) * LARYNGEAL MASK AIRWAY(Performed 08/03/2021) * CORRECTION STRABISMUS (RECESSION/RESECTION EYE MUSCLE)(Performed 08/03/2021) Performed for Consecutive alternating esotropia, Diplopia * DERMATOPATHOLOGY(Performed 08/05/2020) Results * OCT (03/01/2022 11:17 AM CDT) Anatomical Region Laterality Modality Other 03/01/2022 11:1 7 AM CDT Drew Green MD OPHTHALMOLOGY SERVIC ES ORDERABLES * Visual Vega (03/01/2022 11:07 AM CDT) Anatomical Region Laterality Modality Other 03/01/2022 11:0 7 AM CDT Drew Green MD OPHTHALMOLOGY SERVIC ES ORDERABLES * LARYNGEAL MASK AIRWAY (02/01/2022 1:37 PM [...] procedure Clarice Hammond MD GENERAL ANESTHESIA O ELADIOERABLES * LARYNGEAL MASK AIRWAY (08/03/2021 1:56 PM [...] Fred Hu MD GENERAL ANESTHESIA O RDERABLES * DERMATOPATHOLOGY (08/05/2020 3:33 AM CDT) Case Report Dermatopathology Report ? Case: [id number] ? Authorizing Provider: ??Angie Fortune, ?? Collected: ? 08/05/2020 03:33 AM ? Ordering Location: ? [facility] ?Received: ?08/06/2020 07:28 AM ? Pathologist: ? Radha Mcfarland MD ? Specimens: ?? A) - Skin, left abdomen ? B) - Skin, right inner upper arm ? 4:26 PM CDT DERMATOPATHOLOGY LABORATORY Final Diagnosis Specimen A. SKIN, left abdomen: SEBORRHEIC KERATOSIS, IRRITATED AND INFLAMED (L82.0) Specimen B. SKIN, right inner upper arm: SOLAR LENTIGO, IRRITATED (L81.4) (see microscopic description) 4:26 PM CDT DERMATOPATHOLOGY LABORATORY Clinical History A: ISK R/O NMSC. B: LENT R/O atypia. 4:26 PM [facility] DERMATOPATHOLOGY LABORATORY Gross Description Specimen A: Received is one formalin filled container labeled with the patient's name and designated left abdomen. The specimen consists of a shave measuring [id number]. Jar 0. Specimen B: Received is one formalin filled container labeled with the patient's name and designated right inner upper arm. The specimen consists of a shave measuring [id number]. Jar 0. 4:26 PM T DERMATOPATHOLOGY LABORATORY Microscopic Description Specimen A. SKIN, left abdomen: Sections show acanthosis, papillomatosis, hyperkeratosis, and squamous eddies. There is a lymphohistiocytic infiltrate within the papillary dermis. Specimen B. SKIN, right inner upper arm: There is orthokeratosis and melanin pigment in the stratum corneum. There is a slight increase in epidermal thickness with lentiginous buds of hyperpigmented keratinocytes. The number of melanocytes, highlighted by MART-1/Melan-A immunohistochemical staining, is mildly increased. In the dermis, there is basophilic degeneration of elastic fibers. This specimen was also reviewed by Dr. Danielle Montenegro, who agrees. 4:26 PM [facility] DERMATOPATHOLOGY LABORATORY Disclaimer An external and internal positive and negative controls are appropriate for the histochemical, immunohistochemical and immunofluorescence stain(s) in this case (if any), except where stated explicitly. The performance characteristics of the stain(s) cited in this report were developed and its performance characteristic determined by the Dermatopathology Laboratory at [facility], directed by Dr. Luis Montenegro. These tests need not be, and therefore are not, approved by the [place] Food and Drug Administration. The tests are used for clinical purposes. Billing Codes Specimen Charges Stain Charges 06126 24460 1 1 76452 1 4:26 PM CDT DERMATOPATHOLOGY LABORATORY Embedded Images 4:26 PM T DERMATOPATHOLOGY LABORATORY Pathology/Cytology TISSUE SPECIMEN FROM SKIN / Unknown 08/05/2020 3:33 AM CDT 08/06/2020 7:28 AM CDT Miscellaneous samples (specimen) TISSUE SPECIMEN FROM SKIN / Unknown 08/05/2020 3:33 AM CDT 08/06/2020 7:28 AM CDT Angie Fortune DO LAB - PATHOLOGY/C YTOLOGY ORDERABLES DERMATOPATHOLOGY LABORATORY [facility] - Department of Dermatology [facility] [address] [place] [address], [address] [phone] Care Teams Insulation Board Head Saw Operator Relationship Specialty Start Date End Date Gadiel Zavala MD [address] [facility] [address] [address] PCP - General 02/15/21
--- OUTSIDE RECORDS SUMMARY | 2024-04-17 11:41 | XMS_ITS | Encounter Summary ---
Author Organization [facility] Address [address] [place] [address] Care Team Providers Care Water Hauler Name Role Phone Gadiel Zavala MD Primary Care Provider [phone] Reason for Visit * Reason Comments Double Vision Strabismus Encounter Details Date Type Department Care Team (Late st Contact Info) Description 08/18/2021 10:45 AM CDT Office Visit [facility] [address] [place] [address] Sin Romero MD [address] [place], [place] [id number] Diplopia (Primary Dx); Consecutive esotropia Social History Tobacco Use Types Packs/Day Years Used Date Smoking Tobacco: Former Cigarettes 0.3 6 0 05/01/1988 - 05/01/1994 Smokeless Tobacco: Never Sex and Gender Information Value Date Recorded Sex Assigned at Not on file Gender Identity Not on file Sexual Orientation Not on file documented as of this encounter Progress Notes * Rosa Keller - 08/18/2021 11:45 AM CDT Impression: [Sensorimotor exam] Now 2 weeks post-op BMRc 3 mm with full infraplacement for a consecutive VET on 08/03/21 (OAC). (S/p BLRc 6 mm for X(T) by Dr Childs on 02/05/21.) She has had a paradoxical response to recession of the medial rectus muscles that should have decreased the ET as well as the V-pattern. The surgery has corrected the VET but last week (POW#1) the ETwas not only still present, but greater than pre-op; today it has increased again. The -2 abductionlimitations are still present. There is no logical explanation for this from a surgical standpoint. Is there any concern here for underlying progressive bilateral nerve palsy? She is frail and wheelchair bound. 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 This is not from a neurological condition, per patient (and ) but complications from lower back surgery [id number]. She does not currently have a neurologist. Did not tolerate the Blenderm translucent tape given last visit. Today likes the Fresnel prism - but requires the full amount of prism (30^ MEEK) today to fuse. Can accept this (to small X) at near, Plan: Trial of 30^ MEEK Fresnel prism OS x [address] Romero. Will monitor her abduction limitations and defer MRI or further neuro workup for now. She has no other new neurological signs or symptoms. See back with [facility] Sensorimotor exam reveals Unexplained surgical result Constant Diplopia with some sensory fuison Large angle resdiult ET Well healing surgical conjucntiva Sin Romero MD ' documented in this encounter Plan of Treatment Not on file documented as of this encounter Visit Diagnoses Diagnosis Diplopia- Primary Consecutive esotropia Esotropia, unspecified documented in this encounter Care Teams Water Hauler Relationship Specialty Start Date End Date Gadiel Zavala MD [address] [facility] [address] [address] PCP - General 02/15/21 documented as of this encounter
--- OUTSIDE RECORDS SUMMARY | 2024-04-17 11:41 | XMS_ITS | Encounter Summary ---
Author Organization [facility] Address [address] [place] [address] Care Team Providers Care Patient Support Tech Name Role Phone Gadiel Zavala MD Primary Care Provider [phone] Reason for Visit * Reason Comments Strabismus Encounter Details Date Type Department Care Team (Late st Contact Info) Description 08/10/2022 9:45 AM CDT Office Visit [facility] [address] [place] [address] Sin Romero MD [address] [place], [place] [id number] Consecutive exotropia of both eyes (Primary Dx); [...] encounter Progress Notes * Cheyenne Julian - 08/10/2022 12:26 PM CDT Images from the original note were not included. Kaitlin Bond is a 72 year old female who is being seen at the request of Dr. Rangel ref. provider found for Chief Complaint Patient presents with ??? Strabismus . Kaitlin Bond is a 72 year old female with h/o X(T) s/p BLRc 6mm (02/05/21 - Amadeo), then consecutive V-ET, s/p BMRc 3mm with 1 TW infraplacement (09/01/21 - Nick). Then paradoxical ET with residual -2 abduction deficit. Then s/p BLR advance to original insertion on adjustable (02/01/22). Now recurrent X(T) - dist<near. Patient frustrated that diplopia has returned. Not able to focus well. Patient accompanied by spouse. Allergies: is allergic to latex, gadolinium, gadopentetate dimeglumine, adhesive sensitivity, and green dye. EXAM: Base Eye Exam Visual Acuity (Snellen - Linear) Right Left Dist cc 20/30 20/25 Correction: Glasses Wearing old glasses - picking up new ones today Additional Tests Stereo Fly: + Animals: 3 Circles: 06/09 Strabismus Exam Method: Alternate cover Correction: cc Distance Near Near +3DS N Bifocals X(T)' 25 LHT' 2 0 0 +1 X(T) 20 0 0 0 X(T) 10 0 -1 X(T) 12 0 0 X(T) 8 RH(T) 5 LH(T) 1 LH(T) 3 0 0 0 XT 9 0 0 0 R Tilt L Tilt XT 10 XT 14 LHT 3 LHT 3 Nystagmus: ? square wave jerk at near Fuses best with 10^BI OD both distance and near, with reasonably sized field of single binocular vision (mild diplopia in right gaze) Prefers OS fixation today; last visit was opposite Able to align eyes to straight dist>near but not able to maintain. Poorer distance control todaythan last exam Slit Lamp and Fundus Exam External Exam Right Left External Normal Normal Pen Light Exam Right Left Lids/Lashes Normal Normal Conjunctiva/Sclera White and quiet White and quiet Cornea Clear Clear Anterior Chamber Deep and quiet Deep and quiet Iris Round and reactive Round and reactive Lens Clear Clear Refraction Wearing Rx Sphere Cylinder [place] Add Right -0.75 +1.25 025 +2.50 Left -0.50 +1.00 065 +2.50 Type: PAL Frame broken on left side - glued Final Rx Horz Prism Right 10^BI Left Type: fresnel only RX To be placed on patient's update glasses (MRE) IMPRESSION: Residual, paradoxical esotropia, small LH(T) ?- unexpected worsening??E(T) and??diplopia after most recent procedure - BMRc 3mm (08/03/21 - Nick) ?- prior XT s/p BLRc 6 (02/05/21 - Amadeo)??with unanticipated overcorrection ?- consider possible CN palsy or other neurologic basis ?- slight AHP Now Recurrent X(T) - s/p BLR advance to original insertion on adjustable (02/01/22) - decreasing control dist and near Diplopia ?- Able to fuse D>N with effort without prism, small residual left face turn - Improved symptoms with 10^BI OD today - consistent with last exam. Dry Eye ?- using OTC artificial tears??4x/d ?- no subjective improvement with drop use, c/o eye burning, frequent blinking Colon cancer ?-??s/p resection, no further treatment needed, cleared by oncologist Other medical diagnosis ?- Ataxia (wheelchair use), thyroid disorder, spinal stenosis and h/o compression fracture/disc herniation of lumbar disc RECOMMENDATION: Recommended prism as management for residual XT and diplopia. Patient agreeable to try (discussed vision will be less blurred with this fresnel as it is markedly smaller than fresnel tried before surgery). Will return to optical to place on new glasses next time they are in [place]. F/u PRN for changes - if measurements are stable, can consider grinding in to glasses in the future(currently at upper limit of GI prism). If deviation increases, would stick with fresnel prism and consider surgery (guarded given past response with prior procedures). NEGRO Mauro (08/10/2022, 12:32) Patient seen and examined with chair car attendant Please see note for further details. I revised the history, exam, assessment and plan. In addition I note: Interval history: not much beter after my sugery for consecutive ET/XT Exam: Well healed conjuncitva Sensorimotor exam reveals Returned to original X(T) deviation with poor sensory fusion Assessment/Plan: Consider trial with prism 08/10/2022 12:37 PM Sin Romero MD documented in this encounter Plan of Treatment Not on file documented as of this encounter Visit Diagnoses Diagnosis Consecutive exotropia of both eyes- Primary Diplopia History of strabismus surgery documented in this encounter Care Teams Patient Support Tech Relationship Specialty Start Date End Date Gadiel Zavala MD [address] [place] [address] PCP - General 02/15/21 documented as of this encounter
--- OUTSIDE RECORDS SUMMARY | 2024-04-17 11:41 | XMS_ITS | Encounter Summary ---
Author Organization [facility] Address [address] [facility] [place] [place] [address] Care Team Providers Care Taxi Truck Driver Name Role Phone Gadiel Zavala MD Primary Care Provider [phone] Encounter Details Date Type Department Care Team (Late st Contact Info) Description 02/07/2024 10:00 AM CDT Office Visit [facility] - Ophthalmology [address] [place] [phone] Sin Romero MD [address] [place] [address] Consecutive esotropia (Primary Dx); Diplopia; History of [...] encounter Progress Notes * Cheyenne Julian - 02/07/2024 12:16 PM CDT Images from the original note were not included. Kaitlin Bond is a 73 year old female who is being seen at the request of Dr. Rangel ref. provider found for No chief complaint on file. . Kaitlin Bond is a 73 year old female Still having vision challenges - main complaint is blur dist<<near. Difficulty reading. Minimal diplopia - unsure if horiz or vert. Notes some neck pain, worsening in past months. Closing left eye more often Last refraction in July 2022 - seen at [facility]. Frames broken Patient accompanied by spouse. Allergies: is allergic to latex, gadopentetate dimeglumine, adhesive sensitivity, and green dye. EXAM: Base Eye Exam Visual Acuity (Snellen - Linear) Right Left Dist cc 20/25 +3 20/20 Correction: Glasses Tonometry deferred Pupils Pupils Right PERRL Left PERRL Visual Vega Grossly full Additional Tests Stereo Fly: + Animals: 0/3 Circles: 0/9 Strabismus Exam Reading #1 (Edited by: Cheyenne Julian) Method: Alternate cover Correction: cc Distance Near Near +3DS N Bifocals XT' 25 -1 -1.5 -2 -1/2 -1/2 0 0 -1.5 X(T) 6 -1/2 -2 0 0 0 0 0 0 Reading #2 (Edited by: Cheyenne Julian) Method: Alternate cover Correction: cc Distance Near Near +3DS N Bifocals XT' 30 -1 -1.5 -2 LXT 14 -1/2 -1/2 0 LXT 14 0 -1.5 LXT 16 -1/2 -2 LXT 14 RhypoT 2 0 0 0 LXT 16 0 0 0 R Tilt L Tilt AHP: right tilt, left turn Comments Measured over prism Fused well with 10^BI OS on +2.75 readers and with her bifocal prescripti Slit Lamp and Fundus Exam External Exam Right Left External Normal Normal Pen Light Exam Right Left Lids/Lashes mild tearing Normal Conjunctiva/Sclera White and quiet White and quiet Cornea Clear Clear Anterior Chamber Deep and quiet Deep and quiet Iris Round and reactive Round and reactive Lens Posterior chamber intraocular lens Posterior chamber intraocular lens Refraction Wearing Rx Sphere Cylinder [place] Add Horz Prism Right -0.50 +0.75 020 +2.50 Left -0.50 +1.25 155 +2.50 8^BI Type: PAL Final Rx Horz Prism Right 5^ BI Left 5^ BI Type: prism Prism to be incorporated into new Rx IMPRESSION: Residual, paradoxical esotropia, small LH(T) - unexpected worsening E(T) and diplopia after most recent procedure - BMRc 3mm (08/03/21 - Nick) - prior XT s/p BLRc 6 (02/05/21 - Amadeo) with unanticipated overcorrection - possible neurologic basis for poor fusion, response to surgery - worsening AHP with no corresponding hypertropia Now Recurrent X(T) - s/p BLR advance to original insertion on adjustable (02/01/22) - relatively stable since surgery Diplopia, subjective - currently wearing 8^BI OS fresnel - Improved symptoms with 10^BI OS today distance and near Dry Eye - using OTC artificial tears 2x/d - notes some persistent discomfort OD>OS - sleeps with fan at night, wakes up with tearing Colon cancer - s/p resection, no further treatment needed, cleared by oncologist Other medical diagnosis - Ataxia (wheelchair use), thyroid disorder, spinal stenosis and h/o compression fracture/disc herniation of lumbar disc RECOMMENDATION: Dispensed updated prism to get ground in to new glasses. Planning seeing local optom for refraction. Discussed placing frensel prism on readers for improved clarity with near work - return to optical when ready for 10^BI OS to be placed. Recommended using PM version of artificial tears at night to aid in eye symptoms. NEGRO Mauro (02/07/2024, 12:28) Patient seen and examined with manager global Please see note for further details. I revised the history, exam, assessment and plan. In addition I note: Interval history: using fresnel prism Exam: Sensorimotor exam reveals Sensory and motor fusion with prism with lessening of diplopia from residual consectuive esotropia Assessment/Plan: Trial with Grind in prism in Rx 02/07/2024 4:52 PM Sin Romero MD documented in this encounter Plan of Treatment Not on file documented as of this encounter Visit Diagnoses Diagnosis Consecutive esotropia- Primary Esotropia, unspecified Diplopia History of strabismus surgery documented in this encounter Care Teams Taxi Truck Driver Relationship Specialty Start Date End Date Gadiel Zavala MD [address] [address] [place] [address] PCP - General 02/15/21 documented as of this encounter
--- OUTSIDE RECORDS SUMMARY | 2024-04-17 11:41 | XMS_ITS | Encounter Summary ---
Author Organization [facility] Address [address] [place] [address] Care Team Providers Care Finance Officer Name Role Phone Gadiel Zavala MD Primary Care Provider [phone] Reason for Visit * Reason Comments Post-Op S/P Advance lateral rectus BILATERALLY on adjustable sutures x 02/01/2022 Encounter Details Date Type Department Care Team (Late st Contact Info) Description 02/02/2022 8:30 AM CDT Office Visit [facility] [address] [place] [address] Sin Romero MD [address] [place] [address] Consecutive esotropia (Primary Dx); History of strabismus [...] as of this encounter Progress Notes * Sagar Vazquez MD - 02/02/2022 9:49 PM CDT Images from the original note were not included. Progress Note [facility] Op[facility] Chief Complaint Patient presents with ??? Post-Op S/P Advance lateral rectus BILATERALLY on adjustable sutures x 02/01/2022 HPI: Mrs. Kaitlin Bond is a 71 year old female, who returns to clinic for 1-day post-op of BOTH eyes today. Patient is accompanied by her . She reports Pt brought with her today: ?? [id number] / Maxitrol jaqueline (tube) The following was also reviewed and updated: [...] MOUTH ONCE DAILY IN THE MORNING ??? [id number]-[id number] (Maxitrol) ophthalmic suspension Instill 1 (one) drop [...] Pain ??? VITAMIN E PO ??? Xarelto 20 [...] (Snellen - Linear) Right Left Dist sc 20/25 20/25 Pupils Pupils Right PERRL Left PERRL Neuro/Psych Oriented x3: Yes Mood/Affect: Normal Strabismus Exam Distance Near Near +3DS Near Bifocals LXT' 30 - - - - - - LXT 18 - - - - - - LXT 12 - - - - LXT 12 - - - - LXT 12 RHT 2-3 LHT 2-3 - - - - - - LXT 12 - - - - - - Slit Lamp and Fundus Exam External Exam Right Left External Normal Normal Slit Lamp Exam Right Left Lids/Lashes Telangiectasia, Irregular lid margins Telangiectasia, Irregular lid margins Conjunctiva/Sclera post op conj medially, vicryl sutures post op conj medially, suture tail exposedand taped to eyelid Cornea +1 SPEE, BUT < 10 SEC +1 SPEE, endopigent inferiorly, BUT < 10 Anterior Chamber Deep and quiet Deep and quiet Iris Round and reactive Round and reactive Lens Posterior chamber intraocular lens Posterior chamber intraocular lens Anterior Vitreous Normal Normal ?? IMPRESSION: POD1 s/p bilateral lateral rectus advancement w/ adjustable suture 02/01/22 - Mild irritation and scratchiness last night, pain tolerable - VA stable today - Measurements today with mild XT on exam, excellent result, patient will likely drift back towardsprevious ET with time - No adjustments needed to be made with adjustable suture in left eye today, suture tied and trimmed in clinic - Patient counseled that double vision should improve in the coming weeks Hx Residual, paradoxical esotropia, small LH(T) ?- unexpected worsening E(T) and diplopia after most recent procedure - [id number] (08/03/21 - Nick) ?- Originally patient XT s/p BLRc 6 (02/05/21 - Amadeo) with unanticipated overcorrection ?- consider possible CN palsy or other neurologic basis ?- slight AHP - now s/p bilateral lateral rectus advancement w/ OAC 02/01/22 ?? RECOMMENDATION: - Maxitrol drops QID OU - RTC 1 week, call sooner with any new or worsening concerns All questions were answered to the best of my ability. Patient verbalized understanding and is in agreement with the plan. Patient seen by and plan was discussed with Dr. Romero. Sagar Vazquez M.D ([place]ake). Ophthalmology, PGY-4 documented in this encounter Plan of Treatment Not on file documented as of this encounter Visit Diagnoses Diagnosis Consecutive esotropia- Primary Esotropia, unspecified History of strabismus surgery Diplopia documented in this encounter Care Teams Finance Officer Relationship Specialty Start Date End Date Gadiel Zavala MD [address] [facility] [address] [place] [address] PCP - General 02/15/21 documented as of this encounter
--- OUTSIDE RECORDS SUMMARY | 2024-04-17 11:42 | XMS_ITS | Encounter Summary ---
Author Organization [facility] Address [address] [place] [place] [address] Care Team Providers Care Freight Air Brake Fitter Name Role Phone Gadiel Zavala MD Primary Care Provider [phone] Reason for Visit * Reason Comments Double Vision Strabismus Encounter Details Date Type Department Care Team (Late st Contact Info) Description 07/28/2021 9:15 AM CDT Office Visit [facility] [address] [place] [address] Sin Romero MD [address] [place], [place] [id number] Alternating esotropia with V pattern (Primary Dx); Consecutive esotropia; Diplopia Social History Tobacco Use Types Packs/Day Years Used Date Smoking Tobacco: Former Cigarettes Q uit: 05/01/1994 Smokeless Tobacco: Never Sex and Gender Information Value Date Recorded Sex Assigned at Not on file Gender Identity Not on file Sexual Orientation Not on file documented as of this encounter Progress Notes * Rosa Keller - 07/28/2021 9:39 AM CDT Impression: [Sensorimotor exam] Consecutive esotropia s/p BLRc 6 mm for X(T) on 02/05/[address] Childs. The pre-op notes on the 12/24/[address] Childs show prism measurements recorded as LX(T) 18^ (right gaze), LX(T) 25^ (primary gaze). LX(T) 20^ (left gaze.) There are no measurements above or below the midline or at near so the V- pattern was not addressed. Current findings show a large V-pattern ET. Smaller ET in primary gaze with head erect (usually depresses chin) but increases on lateral gazes R/L. Can overcome 16^ MEEK for distance in primary gaze (becomes small X) with no discomfort. (She was used to being X(T) pre-op #1.) Plan: Scheduled for surgery on 08/03/[address] Romero. Discussed Rc (for 15^) with full downward transpositions. Ineffective Fresnel prism removed. [facility] Patient seen and examined with head cleaning porter Please see note for further details. I revised the history, exam, assessment and plan. 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
--- OUTSIDE RECORDS SUMMARY | 2024-04-17 11:42 | XMS_ITS | Encounter Summary ---
Author Organization [facility] Address [address] [place] [address] Care Team Providers Care Oyster Washer Name Role Phone Gadiel Zavala MD Primary Care Provider [phone] Encounter Details Date Type Department Care Team (Late st Contact Info) Description 06/14/2022 Orders Only [facility] Neurosurgery - [facility] [address] [place] [address] Mylene Gutierrez MD [address] [facility] [address] [address] -x0 (Work) Cervical spondylosis (Primary Dx) Social History Tobacco Use Types Packs/Day Years Used Date Smoking Tobacco: Former Cigarettes 0.3 5 1 984 - 1988 Smokeless Tobacco: Never Comments:4 per day Alcohol Use Standard Drinks/Week Comments Yes 0 (1 standard drink = 0.6 oz pur e alcohol) 1-2 times per month 1 drink Sex and Gender Information Value Date Recorded Sex Assigned at Not on file Gender Identity Not on file Sexual Orientation Not on file COVID-19 Exposure Response Date Recorded In the last 10 days, have yo u been in contact with someone who was confirmed or suspected to have Coronavirus/COVID-19? No / Unsure 06/14/2022 10:01 AM JOURNEYMAN WIREMAN documented as of this encounter Plan of Treatment Not on file documented as of this encounter Visit Diagnoses Diagnosis Cervical spondylosis- Primary Cervical spondylosis without myelopathy documented in this encounter Care Teams Oyster Washer Relationship Specialty Start Date End Date Gadiel Zavala MD [address] [place] [phone] PCP - General Family Practice 03/03/17 documented as of this encounter
--- OUTSIDE RECORDS SUMMARY | 2024-04-17 11:42 | XMS_ITS | Encounter Summary ---
Author Organization [facility] Address [address] [facility] Attn: Epic Prelude ADT [place] [address] Care Team Providers Care Electrical Tester Name Role Phone Gadiel Zavala MD Primary Care Provider Encounter Details Date Type Department Care Team (Latest Contact Info) Description 06/14/2022 Travel Social History Tobacco Use Types Packs/Day Years [...] Coronavirus/COVID-19? No / Unsure 06/14/2022 10:01 AM CARETAKER GROUNDS documented as of this encounter Plan of Treatment Not on file documented as of this encounter Visit Diagnoses Not on filedocumented in this encounter Care Teams Electrical Tester Relationship Specialty Start Date End Date Gadiel Zavala MD [address] [place] [address] PCP - General Family Practice 03/03/17 documented as of this encounter
--- OUTSIDE RECORDS SUMMARY | 2024-04-17 11:42 | XMS_ITS | Encounter Summary ---
Author Organization [facility] Address [address] [facility] Attn: Epic Prelude ADT [place] [address] Care Team Providers Care Enterprise Application Architect Name Role Phone Gadiel Zavala MD Primary Care Provider [phone] Encounter Details Date Type Department Care Team (Latest Contact Info) Description 07/02/2021 Travel Social History Tobacco Use Types Packs/Day [...] Exposure Response Date Recorded In the last month, have you been in contact with someone who was confirmed or suspected to have Coronavirus / COVID-19? No / Unsure 07/02/2021 11:15 AM HUMANITIES DIVISION CHAIR documented as of this encounter Plan of Treatment Not on file documented as of this encounter Visit Diagnoses Not on filedocumented in this encounter Care Teams Enterprise Application Architect Relationship Specialty Start Date End Date Gadiel Zavala MD [address] [place] [address] PCP - General Family Practice 03/03/17 documented as of this encounter
--- OUTSIDE RECORDS SUMMARY | 2024-04-17 11:42 | XMS_ITS | Encounter Summary ---
Author Organization [facility] Address [address] [place] [address] Care Team Providers Care Saturation Diver Name Role Phone Gadiel Zavala MD Primary Care Provider [phone] Reason for Visit * Reason Comments Double Vision Follow Up Encounter Details Date Type Department Care Team (Late st Contact Info) Description 07/02/2021 11:20 AM MULTI PUNCH OPERATOR Office Visit [facility] [address] [place] [phone] Miguel Childs MD [address] [facility] [address] [facility] [place] [address] Binocular vision disorder with diplopia (Primary Dx); Cervical myelopathy; Recurrent major depressive disorder, in partial remission Social History Tobacco Use Types Packs/Day Years [...] COVID-19? No / Unsure 07/02/2021 11:15 AM MULTI PUNCH OPERATOR documented as of this encounter Progress Notes * Miguel Childs MD - 07/02/2021 11:49 AM CST Images from the original note were not included. PATIENT NAME: Kaitlin Bond : 1950 70 y.o. EXAM DATE: 07/02/2021 Referring Provider: Lucas Chief Complaint: Chief Complaint Patient presents with ??? Double Vision ??? Follow Up History of Present Illness: HPI Kaitlin Bond is a 70 y.o. female returns with her after getting new glasses without prism. Diplopia continued with high frequency, so contacted Dr. MENDEZ who ordered a fresnel prism to be put on left lens. Not much help, if any, pt. says. However, vision is more clear with new glasses. Pt. states that right now, in the office, diplopia occurs when she looks downward, but not when looking up at across the room. Pt. prefers reading at [place] with her OTC +2.00 Readers. Pt. complains of dry eyes. Uses [employer] QID OU but they offer only brief help. Last edited by Radha Montoya COT on 07/02/2021 11:50 AM. (History) Review of Systems: ROS Positive for: Eyes Negative for: Constitutional, Gastrointestinal, Neurological, Skin, Genitourinary, Musculoskeletal,HENT, Endocrine, Cardiovascular, Respiratory, Psychiatric, Allergic/Imm, Heme/Lymph Last edited by Radha Montoya COT on 07/02/2021 11:22 AM. (History) Past Medical History: Past Medical History: Diagnosis Date ??? Anxiety ??? Arthritis ??? At risk for obstructive sleep apnea 3 ??? Cataract ??? Depression ??? Dyspnea on exertion ??? GERD (gastroesophageal reflux disease) ??? Glaucoma ??? History of complications due to general anesthesia takes a while to wake up, N&V ??? HTN (hypertension) ??? Hyperlipidemia ??? Hypothyroidism ??? Injury of back from a fall ??? Latex sensitivity ??? Macular degeneration ??? Migraine ??? Motion sickness ??? Neuropathy ??? Post-operative nausea and vomiting ??? PUD (peptic ulcer disease) Past Surgical History: Past Surgical History: Procedure Laterality Date ??? CATARACT EXTRACTION ??? HX HYSTERECTOMY ??? HX SPINAL SURGERY lumbar fusion 2013, cervical 1991 ??? HX TUBAL LIGATION ??? KYPHOPLASTY, LUMBAR 2017 ??? [facility] CERV SPINE FUSN,ANTER,BELOW C2 N/A 02/16/2017 CERVICAL DISCECTOMY FUSION 1 LEVEL ANTERIOR, C3-4 performed by Mylene Gutierrez MD at [facility] ??? VA IMPLANT SPINAL NEUROSTIM/OUTREACH MANAGER N/A 11/16/2017 SPINAL CORD DORSAL COLUMN STIMULATOR REMOVAL performed by Mylene Gutierrez MD at [facility] ??? VA STABISMUS SURG,TWO HORIZ MUSCLE Bilateral 02/05/2021 EYE MUSCLE REPAIR RECESSION RESECTION performed by Miguel Childs MD at [facility] Medications: Current Outpatient Medications on File Prior to Visit Medication Sig Dispense Refill ??? FLAXSEED OIL ORAL Take by mouth. ??? OTHER Prevagen ??? amLODIPine (NORVASC) 10 mg tablet Take 10 mg by mouth daily. ??? oxybutynin chloride (DITROPAN) 5 mg tablet Take 5 mg by mouth 2 times daily. ??? linaCLOtide (Linzess) 72 mcg Capsule capsule Take 72 mcg by mouth daily before breakfast. ??? vitamin B complex (B COMPLEX 1 ORAL) Take by mouth. ??? meloxicam (MOBIC) 15 mg tablet Take 15 mg by mouth daily. ??? naloxone (NARCAN) 4 mg/spray [place], Non-Aerosol EMERGENCY USE ONLY: Administer 1 spray (4 mg) in one nostril one time. May repeat in alternating nostrils every 2-3 min until responsive or EMS arrives. 2 Each 3 ??? oxyCODONE-acetaminophen (PERCOCET) 5-325 mg tablet Take 1-2 Tablets by mouth every 4 hours as needed for Pain, Moderate. Max Daily Amount: 12 Tablets 20 Tablet 0 ??? metoprolol succinate (TOPROL XL) 100 mg Extended Release 24 hour tablet Take 100 mg by mouth daily. ??? celecoxib (CeleBREX) 200 mg capsule Take 200 mg by mouth 2 times daily. ??? docusate sodium (COLACE) 100 mg capsule Take 1 Capsule (100 mg) by mouth 2 times daily. ??? sennosides-docusate sodium (SENNA-S) 8.6-50 mg tablet Take 1 Tablet by mouth daily at bedtime. ??? melatonin 3 mg Tablet Take 1 Tablet (3 mg) by mouth daily at bedtime. ??? methocarbamol (ROBAXIN) 500 mg tablet Take 1 Tablet (500 mg) by mouth 3 times daily as needed for Spasm Contact PCP for refills. 90 Tablet 0 ??? acetaminophen (TYLENOL) 325 mg tablet Take 2 Tablets (650 mg) by mouth every 4 hours as needed for Pain. ??? omeprazole (PriLOSEC) 40 mg Capsule, Delayed Release(E.C.) Take 40 mg by mouth 2 times daily. ??? levothyroxine 50 mcg tablet Take 50 mcg by mouth daily early childhood director. ??? atorvastatin (LIPITOR) 20 mg tablet Take 20 mg by mouth daily. ??? lisinopril (PRINIVIL) 40 mg tablet Take 40 mg by mouth daily at bedtime. ??? FLUoxetine (PROzac) 40 mg capsule Take 40 mg by mouth daily at bedtime. ??? DULoxetine (CYMBALTA) 60 mg Capsule, Delayed Release(E.C.) Take 60 mg by mouth daily at bedtime. ??? cyanocobalamin (VITAMIN B-12) 100 mcg tablet Take 3,000 mcg by mouth daily . ??? calcium-cholecalciferol, D3, (CALTRATE 600 + D) 600 mg (1,500 mg)-800 unit Tablet, Chewable tablet Take by mouth daily. ??? eszopiclone (LUNESTA) 3 mg Tablet Take 5 mg by mouth nightly as needed for Insomnia. No current facility-administered medications on file prior to visit. Allergies: Allergies Allergen Reactions ??? Gadolinium-Containing Contrast Media Hives ??? Gadopentetate Dimeglumine Hives ??? Latex Other (See Comments) Pt states no. Is fine with gloves. Only allergy is to adhesive. ??? Adhesive Rash ??? Adhesive Tape-Silicones Rash Family History: No family history on file. Social History: 1. Strabismus L X(T) 02/18 BLR rc 6 L E(T) Ophthalmology Exam Base Eye Exam Visual Acuity (Snellen - Linear) Right Left Dist cc 20/20 -2 20/25 -1 Near sc 20/20 20/30+ Pupils Pupils Right PERRL Left PERRL Visual Vega Left Right Full Full Extraocular Movement Right Left Full Full Neuro/Psych Oriented x3: Yes Mood/Affect: Normal Edited by: Radha Montoya COT; Miguel Childs MD Additional Tests Stereo Lan/3 ID'ed star and cat Edited by: Radha Montoya COT Strabismus Exam Observations: V pattern Distance Near Near +3DS N Bifocals 0 0 0 X(T) 10 0 0 0 0 0 Ortho 0 0 0 0 0 E(T) 10 0 0 0 S/P BLR recess 6 Edited by: Miguel Childs MD Slit Lamp and Fundus Exam External Exam Right Left External Normal Normal Slit Lamp Exam Right Left Lids/Lashes Normal Normal Conjunctiva/Sclera 1+ Subconjunctival hemorrhage 1+ Subconjunctival hemorrhage Cornea Krukenberg's spindle, Clear corneal incision Krukenberg's spindle, Clear corneal incision Anterior Chamber Deep and quiet Deep and quiet Iris Round and reactive Round and reactive Lens Posterior chamber intraocular lens Posterior chamber intraocular lens Vitreous Normal Normal Fundus Exam Right Left Disc Normal Normal C/D Ratio 0.35 0.35 Macula Normal Normal Vessels Normal Normal Edited by: Miguel Childs MD Refraction Wearing Rx Sphere Cylinder [place] Add Horz Prism Right -0.25 +1.00 013 +3.00 Left -0.75 +1.75 152 +3.00 2.5 MEEK Age: 3m Type: PAL Wearing Rx #2 Sphere Cylinder [place] Add Horz Prism Right +2.00 Left +2.00 Type: SVL Wearing Rx Comments Fresnel prism om whole left lens RX2 are OTC Readers Edited by: Radha Montoya COT; Miguel Childs MD Testing/Data: Pre-Op March 2021 Exo in [facility] E(T) In down[facility] ASSESSMENT and PLAN: ICD-10-CM ICD-9-CM 1. Binocular vision disorder with diplopia H53.2 368.2 Kaitlin Bond demonstrates persistent, intermittent diplopia following eye muscle surgery in January 2021. Prisms in her glasses has not offered sufficient relief. She reports debilitating limitations from her visual symptoms, which complicate her emotional health. On exam today, I detected no strabismus in the primary position and she reported intermittent diplopia, which was not eliminated with prisms. In upgaze I noted an exodeviation and in downgaze, an intermittent esodeviation. I detected no over-elevation in adduction or inferior oblique overactivity. As I was reluctant to undertake further eye muscle surgery, I recommended an independent opinion. Miguel Childs MD Panel Flow Machine Operator [facility] [address] [place] [address], [address] [place] [address] Office: [phone] E-mail: [email or web address] This medical record reflects the history of present illness as obtained by myself in discussion with the patient. I PUNCH OPERATOR documented in this encounter Plan of Treatment Not on file documented as of this encounter Visit Diagnoses Diagnosis Binocular vision disorder with diplopia- Primary Diplopia Cervical myelopathy Cervical spondylosis with myelopathy Recurrent major depressive disorder, in partial remission documented in this encounter Care Teams Saturation Diver Relationship Specialty Start Date End Date Gadiel Zavala MD [facility] [place] [phone] PCP - General Family Practice 03/03/17 documented as of this encounter
--- OUTSIDE RECORDS SUMMARY | 2024-04-17 11:42 | XMS_ITS | Encounter Summary ---
Author Organization [facility] Address [address] [place] [address] Care Team Providers Care Print Designer Name Role Phone Gadiel Zavala MD Primary Care Provider Encounter Details Date Type Department Care Team (Late st Contact Info) Description 04/14/2023 External Device Data STL ABSTRACTION Provider, Abstract NO ADDRESS ON FILE Social History Tobacco Use Types Packs/Day Years [...] on file documented as of this encounter Plan of Treatment Not on file documented as of this encounter Visit Diagnoses Not on filedocumented in this encounter Care Teams Print Designer Relationship Specialty Start Date End Date Gadiel Zavala MD [address] [place] [phone] PCP - General Family Practice 03/03/17 documented as of this encounter
--- OUTSIDE RECORDS SUMMARY | 2024-04-17 11:42 | XMS_ITS | Encounter Summary ---
Author Organization [facility] Address [address] [place] [address] Care Team Providers Care Twister Operator Name Role Phone Gadiel Zavala MD Primary Care Provider [phone] Encounter Details Date Type Department Care Team (Late st Contact Info) Description 06/02/2023 External Device Data STL ABSTRACTION Provider, Abstract [...] on filedocumented in this encounter Care Teams Twister Operator Relationship Specialty Start Date End Date Gadiel Zavala MD [address] [place] [phone] PCP - General Family Practice 03/03/17 documented as of this encounter
--- OUTSIDE RECORDS SUMMARY | 2024-04-17 11:42 | XMS_ITS | Encounter Summary ---
Author Organization [facility] Address [address] [place] [address] Care Team Providers Care Video Tape Duplicator Name Role Phone Gadiel Zavala MD Primary Care Provider Encounter Details Date Type Department Care Team (Late st Contact Info) Description 06/27/2022 Abstract [facility] - [facility] [address] [address] [place] [address] Mylene Gutierrez MD [address] [place] [address] [phone] (Work) Social History Tobacco Use Types Packs/Day Years [...] Coronavirus/COVID-19? No / Unsure 06/14/2022 10:01 AM STATOR CONNECTOR documented as of this encounter Plan of Treatment Not on file documented as of this encounter Visit Diagnoses Not on filedocumented in this encounter Care Teams Video Tape Duplicator Relationship Specialty Start Date End Date Gadiel Zavala MD [address] [place] [phone] PCP - General Family Practice 03/03/17 documented as of this encounter
--- OUTSIDE RECORDS SUMMARY | 2024-04-17 11:42 | XMS_ITS | Encounter Summary ---
Author Organization [facility] Address [address] [place] [address] Care Team Providers Care Guest Request Runner Name Role Phone Gadiel Zavala MD Primary Care Provider [phone] Reason for Visit * Reason Comments Consult Cervical Spine, last seen 01/19/18 Encounter Details Date Type Department Care Team (Latest Contact Info) Description 06/14/2022 10:00 AM TEACHER SELECTION SPECIALIST Office Visit [facility] Neurosurgery - [facility] [address] [address] Mylene Gutierrez MD [address] [place], [place] [address] [place], [place] [phone] (Work) Cervical spondylosis (Primary Dx); Foraminal stenosis of cervical region Social History Tobacco Use Types Packs/Day Years Used Date Smoking Tobacco: Former Cigarettes 0.3 5 1 984 - 1988 Smokeless Tobacco: Never Tobacco Cessation:Counseling Given: Not Answered Comments:4 per day Alcohol Use Standard Drinks/Week [...] Coronavirus/COVID-19? No / Unsure 06/14/2022 10:01 AM TEACHER SELECTION SPECIALIST documented as of this encounter Last Filed Vital Signs Vital Sign Reading Time Taken Comments Blood Pressure 122/80 06/14/2022 10:12 AM TEACHER SELECTION SPECIALIST Pulse 57 06/14/2022 10:12 AM TEACHER SELECTION SPECIALIST Temperature - - Respiratory Rate - - Oxygen Saturation - - Inhaled Oxygen Concentration - - Weight 57.4 kg (126 lb 8 oz) 06/14/2022 10:12 AM TEACHER SELECTION SPECIALIST Height 152.4 cm (5') 06/14/2022 10:12 AM TEACHER SELECTION SPECIALIST Body Mass Index 24.71 06/14/2022 10:12 AM TEACHER SELECTION SPECIALIST documented in this encounter Progress Notes * Mylene Gutierrez MD - 06/14/2022 10:06 AM CST [facility] Neurosurgery H&P Patient Name: Kaitlin Bond : 1950 Date of Service: 06/14/2022 Subjective: Chief Complaint: Chief Complaint Patient presents with Consult Cervical Spine, last seen 01/19/18 History of Present Illness: Kaitlin is a 71 y.o. female who presents for worsening neck pain. She has a history of a C3/4 ACDFon 02/16/[address] Gutierrez and a C4/5 ACDF over [address] Hay. Her neck pain initially improved after surgery but has gradually been worsening the past two months. The pain is located in her posterior neck and radiates to her shoulder blades bilaterally. The pain is rated severe. The painis described as sharp, pins/needles, and tingling. The pain is exacerbated by walking and falling. Patient reports she falls 4-10 times per day due to her chronic gait imbalance. She also reports LUEtingling paresthesias down her anterior arm into all fingers. The patient denies any RUE pain or paresthesias. Conservative treatments tried include OTC pain medication and physical therapy 3-4 yearsago. 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 Past Medical History: Diagnosis Date Anemia Anxiety Arthritis At risk for obstructive sleep apnea 3 Atrial fibrillation Cataract Colon cancer Depression Dyspnea on exertion GERD (gastroesophageal reflux disease) Glaucoma History of complications due to general anesthesia takes a while to wake up, N&V HTN (hypertension) Hyperlipidemia Hypothyroidism Injury of back from a fall Latex sensitivity Macular degeneration Migraine Motion sickness Neuropathy Osteoarthritis Post-operative nausea and vomiting PUD (peptic ulcer disease) Past Surgical History: Procedure Laterality Date CATARACT EXTRACTION HX HYSTERECTOMY HX SPINAL SURGERY lumbar fusion 2013, cervical 1991 HX TUBAL LIGATION KYPHOPLASTY, LUMBAR 2016 AR ARTHRD ANT INTERBODY MIN DSC CRV BELOW C2 N/A 02/16/2017 CERVICAL DISCECTOMY FUSION 1 LEVEL ANTERIOR, C3-4 performed by Mylene Gutierrez MD at [facility] OR [facility] AR INSJ/RPLCMT SPI NPGR DIR/INDUXIVE COUPLING N/A 11/16/2017 SPINAL CORD DORSAL COLUMN STIMULATOR REMOVAL performed by Mylene Gutierrez MD at [facility] OR [facility] AR STRABISMUS RECESSION/RESCJ 2 HRZNTL MUSC Bilateral 02/05/2021 EYE MUSCLE REPAIR RECESSION RESECTION performed by Miguel Childs MD at [facility] OR [facility] No family history on file. Social History Tobacco Use Smoking status: Former Packs/day: 0.25 Years: 5.00 Pack years: 1.25 Types: Cigarettes Quit date: 1988 Years since quittin.1 Smokeless tobacco: Never Tobacco comments: 4 per day Substance Use Topics Alcohol use: Yes Comment: 1-2 times per month 1 drink TOBACCO COUNSELING She is not a tobacco user. Allergies Allergen Reactions Gadolinium-Containing Contrast Media Hives Gadopentetate Dimeglumine Hives Latex Other (See Comments) Pt states no. Is fine with gloves. Only allergy is to adhesive. Adhesive Rash Adhesive Tape-Silicones Rash Current Outpatient Medications on File Prior to Visit Medication Sig Dispense Refill losartan (COZAAR) 25 mg tablet Take 25 mg by mouth daily. duloxetine HCl (DULOXETINE ORAL) Take 50 mg by mouth daily. levothyroxine 50 mcg tablet Take 50 mcg by mouth daily in the morning. selenium 200 mcg Tablet Take 200 mcg by mouth. coffee xt/phosphatidyl serine (NEURIVA ORIGINAL ORAL) Take by mouth. FLAXSEED OIL ORAL Take by mouth. OTHER Prevagen amLODIPine (NORVASC) 10 mg tablet Take 10 mg by mouth daily. oxybutynin chloride (DITROPAN) 5 mg tablet Take 5 mg by mouth 2 times daily. linaCLOtide 72 mcg capsule Take 72 mcg by mouth daily before breakfast. vitamin B complex (B COMPLEX 1 ORAL) Take by mouth. meloxicam (MOBIC) 15 mg tablet Take 15 mg by mouth daily. naloxone (NARCAN) 4 mg/spray [place], Non-Aerosol EMERGENCY USE ONLY: Administer 1 spray (4 mg) in one nostril one time. May repeat in alternating nostrils every 2-3 min until responsive or EMS arrives. 2 Each 3 oxyCODONE-acetaminophen (PERCOCET) 5-325 mg tablet Take 1-2 Tablets by mouth every 4 hours as needed for Pain, Moderate. Max Daily Amount: 12 Tablets 20 Tablet 0 metoprolol succinate (TOPROL XL) 100 mg Extended Release 24 hour tablet Take 100 mg by mouth daily. celecoxib 200 mg capsule Take 200 mg by mouth 2 times daily. docusate sodium (COLACE) 100 mg capsule Take 1 Capsule (100 mg) by mouth 2 times daily. sennosides-docusate sodium (SENNA-S) 8.6-50 mg tablet Take 1 Tablet by mouth daily at bedtime. melatonin 3 mg Tablet Take 1 Tablet (3 mg) by mouth daily at bedtime. methocarbamol (ROBAXIN) 500 mg tablet Take 1 Tablet (500 mg) by mouth 3 times daily as needed for Spasm Contact PCP for refills. 90 Tablet 0 acetaminophen (TYLENOL) 325 mg tablet Take 2 Tablets (650 mg) by mouth every 4 hours as needed for Pain. omeprazole (PriLOSEC) 40 mg Capsule, Delayed Release(E.C.) Take 40 mg by mouth 2 times daily. levothyroxine 50 mcg tablet Take 50 mcg by mouth daily early childhood assistant. atorvastatin (LIPITOR) 20 mg tablet Take 20 mg by mouth daily. lisinopril (PRINIVIL) 40 mg tablet Take 40 mg by mouth daily at bedtime. FLUoxetine (PROzac) 40 mg capsule Take 40 mg by mouth daily at bedtime. DULoxetine (CYMBALTA) 60 mg Capsule, Delayed Release(E.C.) Take 60 mg by mouth daily at bedtime. cyanocobalamin (VITAMIN B-12) 100 mcg tablet Take 3,000 mcg by mouth daily . calcium carbonate 600 mg-vitamin D3 20 mcg (800 unit) chewable tablet Take by mouth daily. eszopiclone 3 mg tablet Take 5 mg by mouth nightly as needed for Insomnia. No current facility-administered medications on file prior to visit. Review of Systems: Please see the 10+ point review which was scanned into the record as part of the Health history form. I evaluated it today and all pertinent data was synthesized into the HPI. Objective: Physical Exam: BP 122/80 (BP Location: Right arm, Patient Position (BP): Sitting, BP Cuff Size: Adult) Pulse (!)57 Ht 5' (1.524 m) Wt 57.4 kg (126 lb 8 oz) BMI 24.71 kg/m?? Normal BMI Range: 18 & older: > or = 18.5 and < 25 Body mass index is 24.71 kg/m??. Constitutional: Appears well, no distress, well-nourished, well-developed HENT: External inspection of ears and nose within normal limits, oral mucosa normal Eyes: Normal external eye, conjunctiva, lids, cornea, pupils: see neuro exam Neck: Normal appearance, no thyroid enlargement Cardiovascular: Regular rate and rhythm, no swelling or edema Respiratory: Even/unlabored Gastrointestinal: Nondistended Musculoskeletal: See neuro exam, positive for spine tenderness to palpation, straight leg raise test not done Integumentary: No rashes, no induration Psychiatric: Appropriate to circumstances, normal mood and affect Neurological Exam: Neurologic Exam Mental Status Oriented to person, place, and time. Follows 2 step commands. Attention: normal. Concentration: normal. Speech: speech is normal Level of consciousness: alert Normal comprehension. Cranial Nerves CN III, IV, Pupils are equal, round, and reactive to light. Extraocular motions are normal. CN V Facial sensation intact. CN VII Facial expression full, symmetric. CN VIII CN VIII normal. CN XI CN XI normal. CN XII CN XII normal. Motor Exam Overall muscle tone: normal Strength Strength 5/5 except as noted. Sensory Exam Light touch normal. Pinprick normal. Gait, Coordination, and Reflexes Gait Gait: normal Reflexes Reflexes 2+ except as noted. Right plantar: normal Left plantar: normal Right [place]: absent Left [place]: absent Right ankle clonus: absent Left ankle clonus: absent Labs: Lab Results Component Value Date/Time WBC 4.3 01/25/2021 02:32 PM HGB 13.2 01/25/2021 02:32 PM HCT 40.1 01/25/2021 02:32 PM PLT 326 01/25/2021 02:32 PM NA 138 01/25/2021 02:32 PM K 4.1 01/25/2021 02:32 PM Lab Results Component Value Date/Time URINELEUKOC Trace (A) 03/07/2017 01:59 PM NITRITEUA Negative 03/07/2017 01:59 PM KETONEURINE Trace (A) 03/07/2017 01:59 PM BLOODUA Negative 03/07/2017 01:59 PM WBCU -25 (A) 03/07/2017 01:59 PM RBCUA 0-2 03/07/2017 01:59 PM BACTERIAUA 1+ (A) 03/07/2017 01:59 PM UREPITHELIAL 03-25 (A) 03/07/2017 01:59 PM Lab Results Component Value Date/Time CA 9.8 01/25/2021 02:32 PM No components found for: NICU, COTU, NICS, COTS Imaging Studies: My review of MRI of the cervical spine shows postsurgical changes at C3-4 where I performed a priorfusion with underlying instrumentation. There is regression of the posterior ligamentous hypertrophy at that level and only very slight myelomalacia associated with her prior cord compression. Patient has what appears to be early autofusion at C4-5 along with a prior fusion at C5-6. There is degenerative disc disease with some left-sided foraminal stenosis at C6-7. Assessment and Plan: ICD-10-CM ICD-9-CM 1. Cervical spondylosis M47.812 721.0 2. Foraminal stenosis of cervical region M48.02 723.0 Impression: 71 y.o. female with past history of two ACDFs who presents with two months of neck painin the setting of cervical spondylosis without myelopathy Plan: I had a long discussion with the patient regarding her symptoms. There is no evidence of cord compression on her MRI that would explain her frequent falls. I will refer her to neurology for further workup of her gait imbalance. In regards to her neck pain I am recommending she start with conservative management to include seeing a pain management physician and physical therapy. If she fails conservative measures she may return to the clinic to discuss performing a posterior fusion. I explained to the patient that this is a very painful surgery with significant risks and it is unclear whether this would relieve her neck pain or might even make it worse. I will put in an order today for a cervical CT to be used for surgical planning, however the patient should only get this done if she wishes to return to discuss surgery. She may call the office with any questions or concerns in the interim. Follow up: camden Gutierrez MD This patient was seen jointly by Mylene Gutierrez MD and transcribed by Pippa Muhammad PA-C. This dictation was completed using [employer]. Agricultural Loan Officer variances may occur. HER SELECTION SPECIALIST documented in this encounter Plan of Treatment Not on file documented as of this encounter Visit Diagnoses Diagnosis Cervical spondylosis- Primary Cervical spondylosis without myelopathy Foraminal stenosis of cervical region Spinal stenosis in cervical region documented in this encounter Care Teams Guest Request Runner Relationship Specialty Start Date End Date Gadiel Zavala MD [address] [place] [phone] PCP - General Family Practice 03/03/17 documented as of this encounter
--- OUTSIDE RECORDS SUMMARY | 2024-04-17 11:42 | XMS_ITS | Encounter Summary ---
Author Organization [facility] Address [address] [place] [address] Care Team Providers Care Dealer Card Room Name Role Phone Gadiel Zavala MD Primary Care Provider [phone] Reason for Referral * Eval and Treat (Routine) - Closed Specialty Diagnoses / Procedures Referred By Contac t Referred To Contact Neurology Diagnoses Cervical spondylosis Mylene Gutierrez MD [address] [place] [address] x0 Hiro Rust MD [address] [place] [phone] Referral ID Status Reason Start Date Expiration Date Visits Re quested Visits Authorized [id number] Closed 06/14/2022 06/14/2023 1 1 K CHECKERER * Eval and Treat (Routine) - Closed Specialty Diagnoses / Procedures Referred By Contac t Referred To Contact Pain Management Diagnoses Cervical spondylosis Mylene Gutierrez MD [address] [place] [phone] Referral ID Status Reason Start Date Expiration Date Visits Re quested Visits Authorized [id number] Closed 06/14/2022 06/14/2023 1 1 K CHECKERER * Physical Therapy (Routine) - Closed Specialty Diagnoses / Procedures Referred By Contac t Referred To Contact Physical Therapy Diagnoses Cervical spondylosis Mylene Gutierrez MD [address] [place], [place] [address] [place] [phone] Referral ID Status Reason Start Date Expiration Date Visits Re quested Visits Authorized [id number] Closed 06/14/2022 06/14/2023 24 24 K CHECKERER Encounter Details Date Type Department Care Team (Late st Contact Info) Description 06/14/[address] [facility] Neurosurgery - [facility] [address] [facility] [address] [address] [place] [address] Mylene Gutierrez MD [address] [place] [phone] (Work) Cervical spondylosis (Primary Dx) Social History Tobacco Use Types Packs/Day Years Used Date Smoking Tobacco: Former Cigarettes 0.3 5 1 4 - 1988 Smokeless Tobacco: Never Comments:4 per [...] Coronavirus/COVID-19? No / Unsure 06/14/2022 10:01 AM STOCK CHECKERER documented as of this encounter Plan of Treatment Scheduled Referrals Name Type Priority Associated Diagnoses Orde r Schedule AMB REFERRAL TO PHYSICAL THERAPY Outpatient Referral Routine Cervical spondylosis Ordered: 06/14/2022 AMB REFERRAL TO PAIN CLINIC Outpatient Referral Routine Cervical spondylosis Ordered: 06/14/2022 AMB REFERRAL TO NEUROLOGY Outpatient Referral Routine Cervical spondylosis Ordered: 06/14/2022 documented as of this encounter Visit Diagnoses Diagnosis Cervical spondylosis- Primary Cervical spondylosis without myelopathy documented in this encounter Care Teams Dealer Card Room Relationship Specialty Start Date End Date Gadiel Zavala MD [address] [place] [phone] PCP - General Family Practice 03/03/17 documented as of this encounter
--- OUTSIDE RECORDS SUMMARY | 2024-04-17 11:42 | XMS_ITS | Encounter Summary ---
Author Organization [facility] Address [address] [place] [address] Care Team Providers Care Tobacco Prevention Health Educator Name Role Phone Gadiel Zavala MD Primary Care Provider [phone] Encounter Details Date Type Department Care Team (Late st Contact Info) Description 06/09/2022 Abstract [facility] Neurosurgery - [facility] [address] [address] [place] [phone] Mylene Gutierrez MD [facility] [address] [address] [phone] (Work) Social History Tobacco Use Types Packs/Day Years Used Date Smoking Tobacco: Former Cigarettes 0.3 5 1 984 - 1989 Smokeless Tobacco: Never Comments:4 per day Alcohol [...] on filedocumented in this encounter Care Teams Tobacco Prevention Health Educator Relationship Specialty Start Date End Date Gadiel Zavala MD [address] [place] [phone] PCP - General Family Practice 03/03/17 documented as of this encounter
--- OUTSIDE RECORDS SUMMARY | 2024-04-17 11:42 | XMS_ITS | Encounter Summary ---
Author Organization [facility] Address [address] [place] [address] Care Team Providers Care Field Sales Manager Name Role Phone Gadiel Zavala MD Primary Care Provider [phone] Encounter Details Date Type Department Care Team (Late st Contact Info) Description 06/14/2022 Abstract [facility] Neurosurgery - [facility] [address] [address] [place] [address] Mylene Gutierrez MD [address] [place] [phone] (Work) Social History Tobacco Use Types [...] Coronavirus/COVID-19? No / Unsure 06/14/2022 10:01 AM HORSE DOCTOR documented as of this encounter Plan of Treatment Not on file documented as of this encounter Visit Diagnoses Not on filedocumented in this encounter Care Teams Field Sales Manager Relationship Specialty Start Date End Date Gadiel Zavala MD [address] [place] [phone] PCP - General Family Practice 03/03/17 documented as of this encounter
--- OUTSIDE RECORDS SUMMARY | 2024-04-17 11:42 | XMS_ITS | Encounter Summary ---
Author Organization [facility] Address [address] [place] [address] Care Team Providers Care Senior Teradata Developer Name Role Phone Gadiel Zavala MD Primary Care Provider [phone] Encounter Details Date Type Department Care Team (Late st Contact Info) Description 05/24/2023 External Device Data [facility] ABSTRACTION Provider, Abstract [...] on filedocumented in this encounter Care Teams Senior Teradata Developer Relationship Specialty Start Date End Date Gadiel Zavala MD [address] [place] [phone] PCP - General Family Practice 03/03/17 documented as of this encounter
--- OUTSIDE RECORDS SUMMARY | 2024-04-17 11:42 | XMS_ITS | Clinical Summary ---
Author Organization [facility] Address [address] [place] [address] Phone Care Team Providers Care Report Manager Name Role Phone Gadiel Zavala MD Primary Care Provider Active Problems Problem Noted Date Diagnosed Date Chronic pain syndrome 02/24/2017 Somatic symptom disorder, pe rsistent, severe, with predominant pain 02/24/2017 Social History Tobacco Use Types Packs/Day Years Used Date Smoking Tobacco: Never Assessed Comments Unknown Sex and Gender Information Value Date Recorded Sex Assigned at Not on file Legal Sex Female 10:30 AM CDT Gender Identity Not on file Sexual Orientation Not on file Plan of Treatment Health Maintenance Due Date Last Done Comments DEXA Bone Density 1950 Hepatitis C Virus (HCV) Screening 1950 TdaP Immunization 1950 Colonoscopy 1993 Colorectal Cancer Screening 1993 Cologuard 1998 Immunochemical Fecal Occult Blood 1998 Zoster Immunization (1 of 2) 1998 Respiratory Syncytial Virus (RSV) Immunization (Adult) (1 - 1-dose 60+ series) 2008 Pneumococcal Immunization (6 5+ years) (1 of 1 - PCV) 2013 Influenza Immunization (#1) 2023 SARS-COV-2 Immunization (1 - 2022- season) 2023 Hepatitis B Immunization Aged Out No longer eligible based on patient's age to complete this topic Meningococcal Immunization (ACWY) Aged Out No longer eligible based on patient's age to complete this topic Rotavirus Immunization Aged Out No lo nger eligible based on patient's age to complete this topic Insurance MEDICARE C AETNA Care Teams Report Manager Relationship Specialty Start Date End Date Gadiel Zavala MD [address] [address] PCP - General Family Medicine 02/09/17
--- OUTSIDE RECORDS SUMMARY | 2024-04-17 11:42 | XMS_ITS | Encounter Summary ---
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 Diplopia Procedures CORRECTION STRABISMUS (RECESSION/RESECTION EYE MUSCLE) Referral ID Status Reason Start Date Expiration Date Visits Re quested Visits Authorized [id number] 1 1 Encounter Details Date Type Department Care Team (Latest Contact Info) Description 08/03/2021 10:21 AM CDT - 08/03/2021 4:00 PM CDT Hospital Encounter [facility] SURGERY [address] [place] [address] Sin Romero MD [address] [place] [address] Ophthalmology Discharge Disposition: Home or Self Care Social [...] Sign Reading Time Taken Comments Blood Pressure 116/73 08/03/2021 3:40 PM CDT Pulse 76 08/03/2021 3:40 PM CDT Temperature 36.4 ??C (97.6 ??F) 08/03/2021 2:29 PM CD T Respiratory Rate 17 08/03/2021 3:40 PM CDT Oxygen Saturation 100% 08/03/2021 3:30 PM CDT Inhaled Oxygen Concentration - - Weight 52.6 kg (116 lb) 08/03/2021 10:46 AM CDT Height 162.6 cm (5' 4 ) 08/03/2021 10:46 AM CDT Body Mass Index 19.91 08/03/2021 10:46 AM CDT documented in this encounter Discharge Summaries * Eloina Maguire MD - 08/03/2021 2:33 PM CDT SAME DAY SURGERY DISCHARGE SUMMARY Patient ID: Kaitlin Bond [id number] 71 year old 1950 Date of Surgery: 08/03/2021 Procedure performed: bimedial rectus recession with downward transposition, both eyes Discharge Date: 08/03/2021 Discharge Diagnoses: Present on Admission: None Discharge Condition: Stable. Doing well. Discharge Medication: Medication List START taking these medications ketorolac 10 MG tablet Commonly known as: Toradol Take 1 (one) tablet by mouth every 4 hours as needed for Pain CONTINUE taking these medications atorvastatin 20 MG tablet Commonly known as: Lipitor celecoxib 200 MG capsule Commonly known as: CeleBREX DULoxetine 60 MG capsule Commonly known as: Cymbalta eszopiclone 3 MG tablet Commonly known as: Lunesta levothyroxine 50 MCG tablet Commonly known as: Synthroid metoprolol succinate XL 24hr 100 MG tablet Commonly known as: Toprol XL omeprazole 40 MG capsule Commonly known as: PriLOSEC OXYBUTYNIN CHLORIDE PO Where to Get Your Medications These medications were sent to [facility] [phone] [phone] [address] ?? ketorolac 10 MG tablet Discharge Procedure Orders When to call your provider At and ask for the ophthalmology Resident for: Temperature greater than 101 degrees,persistent nausea and vomiting, severe uncontrolled pain, difficulty breathing, headache or visual disturbances, redness, tenderness or signs of infection such as pain, swelling, redness odor or green, yellow discharge around incision site. DIET REGULAR As tolerated Follow up with provider Discharge Instructions POST-OPERATIVE INSTRUCTIONS EYE MUSCLE SURGERY FOLLOW-UP APPOINTMENT: [address] Romero as scheduled on 08/10/[address] Romero at [facility] [place] [address] at 3:30PM TODAY: - Put drop in each operative eye(s) 4 times daily starting tomorrow, 1 drop in operative eye(s) tonight, can remove patch once at home - Elevate head 30 degrees with extra pillows in bed if possible. - Tylenol every 4-6 hours as needed for pain. You may use Toradol as prescribed if more severe pain(10 doses). - Resume all usual medications. WHAT TO EXPECT: Your eyes may progressively bruise for the first few days, the white part of the eye may become red. Vision will be blurred for the first few days, especially in relation to drop use. These eyes may be scratchy and irritated.This is helped considerably by the use artificial tear drops. WHAT TO AVOID: Avoid strenuous activity, bending over, or heavy lifting for the first three days. Avoid sun exposure, and swimming for 1 week. WHEN TO CALL: If there is significant swelling, loss of vision and/or excessive pain If you have any questions, please call the ophthalmology office at #[phone] Disposition: home Eloina Maguire MD 08/03/2021 2:33 PM documented in this encounter Discharge Instructions * Discharge Instructions* Eloina Maguire MD - 08/03/2021 12:38 PM CDT POST-OPERATIVE INSTRUCTIONS EYE MUSCLE SURGERY FOLLOW-UP APPOINTMENT: [address] Romero as scheduled on 08/10/[address] Romero at [facility] [place] [address] at 3:30PM TODAY: - Put drop in each operative eye(s) 4 times daily starting tomorrow, 1 drop in operative eye(s) tonight, can remove patch once at home - Elevate head 30 degrees with extra pillows in bed if possible. - Tylenol every 4-6 hours as needed for pain. You may use Toradol as prescribed if more severe pain(10 doses). - Resume all usual medications. WHAT TO EXPECT: Your eyes may progressively bruise for the first few days, the white part of the eye may become red. Vision will be blurred for the first few days, especially in relation to drop use. These eyes may be scratchy and irritated.This is helped considerably by the use artificial tear drops. WHAT TO AVOID: Avoid strenuous activity, bending over, or heavy lifting for the first three days. Avoid sun exposure, and swimming for 1 week. WHEN TO CALL: If there is significant swelling, loss of vision and/or excessive pain If you have any questions, please call the ophthalmology office at #[phone] documented in this encounter Medications at Time of Discharge Medication Sig Dispensed Refills Start Date End Date atorvastatin (LIPITOR) 20 MG tablet Take 1 (one) tablet by mouth once daily 06/15/2021 eszopiclone (LUNESTA) 3 MG tablet TAKE 1 TABLET BY MOUTH EVERY DAY AT BEDTIME NEEDED FOR INSOMNIA 06/15/2021 levothyroxine (SYNTHROID) 50 MCG tablet Take 1 (one) tablet by mouth once daily 05/24/2021 omeprazole (PRILOSEC) 40 MG capsule Take 1 (one) capsule by mouth 2 times daily 05/19/2021 celecoxib (CELEBREX) 200 MG capsule TAKE 1 CAPSULE BY MOUTH TWICE DAILY NEEDED FOR PAIN 05/18/2021 01/27/2022 DULoxetine (CYMBALTA) 60 MG capsule Take 60 mg by mouth 022 ketorolac (TORADOL) 10 MG tablet Take 1 (one) tablet by mouth every 4 hours as needed for Pain 10 tablet 08/03/2021 01/27/2022 metoprolol succinate XL 24hr (TOPROL XL) 100 MG tablet Take 100 mg by mouth once daily 06/15/2021 02/02/2022 OXYBUTYNIN CHLORIDE PO Take 2 tablets by mouth once daily 02/02/2022 documented as of this encounter H&P Notes * Sin Romero MD - 08/03/2021 12:15 PM CDT Date: 08/03/2021 Patient ID: Name: Kaitlin Bond Age: [id number] year old : 1950 Present Illness: Kaitlin Bond is a 71 year old female who presents for bilateral medial rectus muscle recessionwith downward transposition. ROS: Patient has persistent double vision. Medications: Current Facility-Administered Medications Medication Dose Route Frequency Provider Last Rate Last Admin 0.9% NaCl injection 3 mL 3 mL Intracatheter q8h Eloina Maguire MD And 0.9% NaCl injection 1-10 mL 1-10 mL Intracatheter PRN Eloina Maguire MD lactated ringers infusion Intravenous Continuous Eloina Maguire MD 75 mL/hr at 08/03/21 1116 New Bag at 08/03/21 1116 Allergies: Latex, Gadolinium, Gadopentetate dimeglumine, Adhesive sensitivity, and Green dye Past surgical history: Past Surgical History: Procedure Laterality Date Back Surgery 2016 Hysterectomy OTHER SURGERY nerve stimulator-and removed Spine Procedure/Surgery Past medical history: Past Medical History: Diagnosis Date Disorder of thyroid Essential hypertension GERD (gastroesophageal reflux disease) Neuropathy Osteoarthritis PONV (postoperative nausea and vomiting) Pure hypercholesterolemia Past family history: No family history on file. Social history: Social History Tobacco Use Smoking status: Former Smoker Packs/day: 0.25 Years: 6.00 Pack years: 1.50 Types: Cigarettes Quit date: 05/01/1994 Years since quittin.2 Smokeless tobacco: Never Used Vaping Use Vaping Use: Never used Substance Use Topics Alcohol use: Not on file Comment: rare Drug use: Never General Exam: BP 116/69 Pulse 64 Temp 98.5 ??F (36.9 ??C) (Skin) Ht 5' 4 (1.626 m) Wt 116 lb (52.6 kg) SpO2 100%BMI 19.91 kg/m2 General appearance: alert, cooperative, no distress, appears stated age, normal Head: Normocephalic, without obvious abnormality, atraumatic Eyes: consecutive V pattern esotropia Lungs: clear to auscultation bilaterally Heart: RRR, normal S1 and S2, no murmur Abdomen: soft without mass, non-tender, with normal bowel sounds Neurologic: Grossly normal Assessment: V pattern esotropia of both eye(s) Plan: Risks, benefits and alternatives of bilateral medial rectus muscle recession (for 15^) with full downward transpositions were discussed including but not limited to bleeding, infection, scarring, recurrence, and need for further surgery. Patient understands and agrees to proceed with surgery. This is to be performed today as planned. Eloina Maguire MD 08/03/2021 12:15 PM [X] Patient seen and examined. Resident note reviewed and discussed. I confirm these findings. Complete history and physical was reviewed, the patient was examined and no change has occurred in the patient's condition since completion of the history and physical. I have reviewed the surgical plan with the patient and Dr. Andrez Romero M.D. 08/03/2021 12:53 PM documented in this encounter OR Notes * Operative - Sin Romero MD - 08/03/2021 1:35 [place] [address] OPERATIVE REPORT NAME: Kaitlin Bond : 1950 [facility] #: [id number] . DATE OF OPERATION: 08/03/2021 ATTENDING SURGEON: Sin Romero M.D. RADIO ANTENNA INSTALLER: Eloina Maguire MD PREOPERATIVE DIAGNOSIS: V pattern consecutive esotropia Diplopia POSTOPERATIVE DIAGNOSIS: V pattern consecutive esotropia Diplopia History of Strabismus surgery PROCEDURE: Bilateral medial rectus recession with full downward transposition, 3 mm ANESTHESIA: General with sub-tenon's block in right eye only COMPLICATIONS: None. ESTIMATED BLOOD LOSS: Minimal. PROCEDURE IN DETAIL: The patient was met at the pre-operative area and asked which eye she prefers to have blocked. Patient stated her left eye was her dominant eye and preferred her right eye to be blocked for comfort. After obtaining informed consent, Kaitlin Bond was brought to the operating room where the patient was placed under general anesthesia. Kaitlin Bond was prepped and draped in the normal sterile ophthalmic manner. Lid speculum was then placed underneath the left eyelids. A 5-0 mersilene traction suture was placed at 6 and 12 o'clock and the left eye was abducted. A conjunctival peritomy was created at the limbus medially from 7 to 11 o'clock and then the left medial rectus muscle was hooked and dissected away from surrounding tissues. Left medial rectus muscle was tagged at its insertion with a double-armed 6-0 Vicryl suture and disinserted from the globe. The most inferior part of the original insertion point was identified and the calipers were used tomeasure 3mm posterior from this site. The superior pole of the muscle was then reinserted at this position. The inferior pole of the muscle end was then reinserted 3 mm posteriorly from the original insertion point.The overlying conjunctiva was reapproximated to the limbus using 2 interrupted sutures of 8-0 vicryl suture. Lid speculum and traction sutures were removed and the left eyelids were shut with a wet gauze. Lid speculum was then placed underneath the right eyelids. A 5-0 mersilene traction suture was placed at 6 and 12 o'clock and the right eye was abducted. A conjunctival peritomy was created in the limbus medially from 1 to 5 o'clock and then the right medial rectus muscle was hooked and dissected away from surrounding tissues. The right medial rectus muscle was tagged at its insertion with a double-armed 6-0 Vicryl suture and disinserted from the globe. The most inferior part of the original insertion point was identified and calipers were used to measure 3mm posterior from this site. The posterior pole of the muscle was then reinserted at this position. The inferior pole of the muscle end was then reinserted 3mm posteriorly from the original insertion point. The overlying conjunctiva was reapproximated to the limbus using 2 interrupted sutures of 8-0 Vicryl suture. T he lid speculum and traction sutures were removed. The right eye received a subtenon's block for comfort. Both eyes were cleans and dried and a tobradex drop was placed into each eye. The right eye was patched and a patino shield was placed above the eye. Kaitlin Bond was then awakened from anesthesia and brought to the recovery room in stable condition having tolerated the procedure well. Dr. Romero was present for the entire case. Eloina Maguire MD Ophthalmology Resident PGY4 documented in this encounter Plan of Treatment Not on file documented as of this encounter Procedures Procedure Name Priority Date/Time Associated Diagnosis Comments CORRECTION STRABISMUS (RECESSION/RESECTION EYE MUSCLE) 08/03/2021 1:35 PM CDT Consecutive alternating esotropia Diplopia Special Needs ANESTHESIA GENERAL W/LOCAL SUPINE documented in this encounter Visit Diagnoses Not on filedocumented in this encounter Administered Medications Inactive Administered Medications - up to 3 most recent administrations Medication Order MAR Action Action Date Dose Rate Site 0.9% NaCl injection 1-10 mL 1-10 mL, Intracatheter, PRN, Other, peripheral line flush, Starting on 08/03/21 at 1044, Until 08/03/21 at 1710, Flush peripheral IV catheter with 1-10 mL of normal saline before and after medications and prn to clear blood from the line or to verify patency., Pre-op 0.9% NaCl injection 3 mL 3 mL, Intracatheter, EVERY 8 HOURS, First dose on Mon08/03/21 at 1400, Until Discontinued, Flush peripheral IV catheter with 3 mL of normal saline every 8 hours., Pre-op lactated ringers infusion at 75 mL/hr, Intravenous, CONTINUOUS, Starting on 08/03/21 at 1045, Until 08/03/21 at 1710, Pre-op $ New Bag/Syringe 08/03/2021 11:16 AM CDT 75 mL/hr documented in this encounter Active and Recently Administered Medications Times are shown in CDT. Scheduled Medication Order 08/01/2021 08/02/2021 08/03/2021 0.9% NaCl injection 3 mL(Linked Group 1) 3 mL, Intracatheter, EVERY 8 HOURS, First dose on Mon08/03/21 at 1400, Until Discontinued, Flush peripheral IV catheter with 3 mL of normal saline every 8 hours., Pre-op 1400 (Due) Continuous Medication Order 08/01/2021 08/02/2021 08/03/2021 lactated ringers infusion at 75 mL/hr, Intravenous, CONTINUOUS, Starting on Tu08/03/21 at 1045, Until 08/03/21 at 1710, Pre-op 1116 ($ New Bag/Syri nge - Provider: Caitlin Hong RN) PRN Medication Order 08/01/2021 08/02/202108/0308/03/2021 0.9% NaCl injection 1-10 mL(Linked Group 1) 1-10 mL, Intracatheter, PRN, Other, peripheral line flush, Starting on Mon08/03/21 at 1044, Until Mon08/03/21 at 1710, Flush peripheral IV catheter with 1-10 mL of normal saline before and after medications and prn to clear blood from the line or to verify patency., Pre-op bupivacaine PF (Marcaine PF) 0.5 % injection (CANCELED) PRN, Starting on Mon08/03/21 at 1345, Until Mon08/03/21 at 1428, Intra-op 1345 ($ Given - Prov ider: Sin Romero MD - Comment: 30mL given to sterile field) tobramycin-dexAMETHasone (Tobradex) 0.3-0.1 % ophthalmic suspension (CANCELED) PRN, Starting on Mon08/03/21 at 1425, Until Mon08/03/21 at 1428, Intra-op 1425 ($ Given - Prov ider: Sin Romero MD) Linked Groups Order Group 1: SALINE LOCK, INSERT AND MAINTAIN (CANCELED) Routine, CONTINUOUS, Starting on Mon08/03/21 at 1045, Until Specified, Pre-op, New collection And 0.9% NaCl injection 3 mLJump to med 3 mL, Intracatheter, EVERY 8 HOURS, First dose on Mon08/03/21 at 1400, Until Discontinued, Flush peripheral IV catheter with 3 mL of normal saline every 8 hours., Pre-op And 0.9% NaCl injection 1-10 mLJump to med 1-10 mL, Intracatheter, PRN, Other, peripheral line flush, Starting on Mon08/03/21 at 1044, Until Mon08/03/21 at 1710, Flush peripheral IV catheter with 1-10 mL of normal saline before and after medications and prn to clear blood from the line or to verify patency., Pre-op documented in this encounter Care Teams Talent Rep Relationship Specialty Start Date End Date Gadiel Zavala MD [address] [facility] [address] [place] [address] PCP - General 02/15/21 documented as of this encounter
--- OUTSIDE RECORDS SUMMARY | 2024-04-17 11:42 | XMS_ITS | Encounter Summary ---
Author Organization [facility] Address [address] [place] [address] Care Team Providers Care Batch Plant Supervisor Name Role Phone Gadiel Zavala MD Primary Care Provider [phone] Encounter Details Date Type Department Care Team (Late st Contact Info) Description 07/25/2022 Abstract [facility] Neurosurgery - [facility] [address] [place] [phone] Mylene Gutierrez MD [address] [facility] [address] [address] -x0 (Work) Social History Tobacco Use Types [...] on filedocumented in this encounter Care Teams Batch Plant Supervisor Relationship Specialty Start Date End Date Gadiel Zavala MD [address] [place] [phone] PCP - General Family Practice 03/03/17 documented as of this encounter
--- OUTSIDE RECORDS SUMMARY | 2024-04-17 11:42 | XMS_ITS | Encounter Summary ---
Author Organization [facility] Address [address] [place] [address] Care Team Providers Care Open Soaper Tender Name Role Phone Gadiel Zavala MD Primary Care Provider [phone] Encounter Details Date Type Department Care Team (Late st Contact Info) Description 06/09/2022 Abstract [facility] Neurosurgery - [facility] [address] [address] [place] [phone] Mylene Gutierrez MD [address] [facility] [address] [address] -[phone] (Work) Social History Tobacco Use Types [...] on filedocumented in this encounter Care Teams Open Soaper Tender Relationship Specialty Start Date End Date Gadiel Zavala MD [address] [place] [phone] PCP - General Family Practice 03/03/17 documented as of this encounter
--- OUTSIDE RECORDS SUMMARY | 2024-04-17 11:42 | XMS_ITS | Encounter Summary ---
Author Organization [facility] Address [address] [place] [address] Care Team Providers Care Salesperson Shoes Name Role Phone Gadiel Zavala MD Primary Care Provider [phone] Reason for Visit * Reason Comments Double Vision Strabismus Encounter Details Date Type Department Care Team (Late st Contact Info) Description 07/07/2021 11:30 AM CLIENT ADVISOR Office Visit [facility] [address] [place] [address] Sin Romero MD [address] [place], [place] [id number] Consecutive alternating esotropia (Primary Dx); Diplopia Social History Tobacco Use Types Packs/Day Years Used Date Smoking Tobacco: Former Cigarettes Q uit: 05/01/1994 Smokeless Tobacco: Never Sex and Gender Information Value Date Recorded Sex Assigned at Not on file Gender Identity Not on file Sexual Orientation Not on file documented as of this encounter Progress Notes * Sin Romero MD - 07/28/2021 10:47 AM CDT Images from the original note were not included. Kaitlin Bond is a 71 year old female who is being seen at the request of Dr. Rangel ref. provider found for Chief Complaint Patient presents with ??? Double Vision ??? Strabismus . Kaitlin Bond is a 70 year old WF referred to Dr Romero by Dr Childs who saw her a few days ago. She has had a complicated post-op course s/p EOM surgery for X(T) in January 2021 (Dr Childs.) Now with a symptomatic consecutive ET with a large V-pattern. Looking down is very difficult. Using a chin depression. Given a Fresnel prism (~ MEEK 6-8^) last week - does not help. Had X(T) and BLRc 6mm on 03/08/21 (Dr Childs.) Now with incomitant ET and V-pattern. Using a chin down position. POH: No childhood strabismus. Wore glasses in school. CLs in high school. Reverted to glasses as a senior. Wore PALs successfully. Current PALs without prisms x 5 months (Dr Childs.) Uncomplicated CE/IOL OU 15 yrs ago - Dr Cevallos. Says she started to notice intermittent horizontal diplopia approx 9 months ago. Thinks 'in her left eye' at first; later noted binocular diplopia (eliminated with either eye closed.) Now with almostconstant horizontal diplopia post-op. Note: At the end of the exam, patient volunteered that she was treated for 'accommodative spasm' many years ago - prescribed 'daily drops that made her pupils small'. She must have been given phospholine iodide therapy. When she saw Dr Cevallos he told her to d/c it. 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 ([place] Bap) No other medical issues. Here for second opinion and strabismus management. grh Allergies: Allergies Allergen Reactions ??? Latex Other Pt states no. Is fine with gloves. Only allergy is to adhesive. ??? Gadolinium Other ??? Gadopentetate Dimeglumine Urticaria ??? Adhesive Sensitivity Rash Reaction: RASH ??? Green Dye Other Was getting MRI and developed hives while dye infusion. EXAM: Base Eye Exam Visual Acuity (Snellen - Linear) Right Left Dist cc 20/25 20/30-1 +1 Fresnel Near cc J1+ J2 (Fresnel) Pupils Dark Light React Right 3 2 Brisk Left 3 2 Brisk Additional Tests Stereo Fly: + Animals: 3/3 Circles: 6/9 Book held up at midline with PALs raised. grh Harmony 4 Dot Distance: Sees 4 at first - to 5 unXd. Images widely on lateral gazes with greens slightly lower. Near: Sees 4 at near. Double Negron Taz Right Left Primary 0 0 Strabismus Exam Method: PCT by [facility] Observations: V pattern Distance Near Near +3DS N Bifocals E 4^ ET 12 0 0 0 E 2 0 0 0 ET 8 LHT 3 LHT 1 ET 25 -2 0 ET 8 0 -2 ET 20 LHT 3 Downdrift LHT 1 LHT 1 ET 25 0 0 +1 ET 20 0 0 - ET 20 LHT 3 LHT 2-3 LHT 3 R Tilt L Tilt Nystagmus: None AHP: Chin depression Orthoptic note: [Reading 1] PCT: Incomitant ET greater on lateral gazes and on downgaze. Marked VET. EOMs: Has -2 abduction deficits. DMRT: No torsion OU. Prism fusion: The small base out prism helps in primary gaze but is inadequate for lateral gazes ordowngaze. [facility] Refraction Wearing Rx Sphere Cylinder Lowry Add Horz Prism Right -0.75 +1.25 025 +2.50 Left -0.50 +1.00 065 +2.50 6-8^ MEEK Age: x 6 months Type: PALs/prisms W: per Dr Santoyo. Says 3^ BI OD; 2^ MEEK OS. I did not see prisms. [facility] IMPRESSION: The primary encounter diagnosis was Consecutive alternating esotropia. A diagnosis of Diplopia was also pertinent to this visit. RECOMMENDATION: Patient seen and examined with junior oracle dba Please see note for further details. I revised the history, exam, assessment and plan. In addition I note: Interval history: Hx of BLLRc by Amadeo (6.5 mm with consecuitve ET and diplopia Exam: Sensorimotor exam reveals Consecuitve ET with signiicfant V pattern Assessment/Plan: The risks, benefits and alternatives of strabismus surgery (including discussion regarding re-operation risks and risks pertaining to vision loss, bleeding, scarring, decreased binocular vision, amblyopia, diplopia or need for spectacle correction or prism) explained to patient andhsuband who wish to proceed Will call to schedule on elective basis Planned procedure is BMRc (bimedial rectus recession) With FULL tendon with transposition (NON- hangback) 07/28/2021 10:48 AM Sin Romero MD * Rosa Keller - 07/07/2021 12:04 PM CST Impression: [Sensorimotor exam] Consecutive esotropia s/p BLRc 6 mm on 02/05/[address] Childs . (Will look up preop XT measts in his previous visits.) Now with -2 abduction deficits OU and a marked VET. She can fuse only with a marked chin depression. The small MEEK Fresnel prism (approx 6-8^ OS) prescribed last week may help in primary gaze and decreases the degree of chin depression but the deviation is far too incomitant for prism correction. Plan: Good candidate for further corrective surgery. Will need to address the incomitant consecutive esotropia, the lateral incomitance and the marked V-pattern. Unclear why uncomplicated BLRc of an appropriate amount for the pre-op X(T) would cause this unexpected outcome. Will review the pre-operative prism measurements for comparison. Dr Romero would like a copy of the operative note. Surgery orders for BMRc with inferior transposition have been placed. Will bring her back in 3 weeks to confirm the measurements as the post-op results are unusual. 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 [facility] [Note: Have reviewed the pre-op visit. On the 12/24/[address] Childs, the prism measurements are recorded as LX(T) 18^ (right gaze), LX(T) 25^ (primary gaze). LX(T) 20^ (left gaze.) There are No measurements above or below the midline or at near. [facility]] documented in this encounter Plan of Treatment Not on file documented as of this encounter Visit Diagnoses Diagnosis Consecutive alternating esotropia- Primary Alternating esotropia Diplopia documented in this encounter Care Teams Salesperson Shoes Relationship Specialty Start Date End Date Gadiel Zavala MD [address] [facility] [address] [address] PCP - General 02/15/21 documented as of this encounter
--- OUTSIDE RECORDS SUMMARY | 2024-04-17 11:42 | XMS_ITS | Encounter Summary ---
Author Organization [facility] Address [address] [place] [address] Care Team Providers Care Trashman Name Role Phone Gadiel Zvaala MD Primary Care Provider [phone] Encounter Details Date Type Department Care Team (Late st Contact Info) Description 06/27/2022 Abstract [facility] Neurosurgery - [facility] [address] [place] [address] Mylene Gutierrez MD [address] [place] [address] -x0 (Work) Social History Tobacco Use Types [...] Coronavirus/COVID-19? No / Unsure 06/14/2022 10:01 AM BULB WEEDER documented as of this encounter Plan of Treatment Not on file documented as of this encounter Visit Diagnoses Not on filedocumented in this encounter Care Teams Trashman Relationship Specialty Start Date End Date Gadiel Zavala MD [address] [place] [phone] PCP - General Family Practice 03/03/17 documented as of this encounter
--- OUTSIDE RECORDS SUMMARY | 2024-04-17 11:42 | XMS_ITS | Encounter Summary ---
Author Organization [facility] Address [address] [place] [address] Care Team Providers Care Coater Name Role Phone Gadiel Zavala MD Primary Care Provider Reason for Visit * Auth/Cert Specialty Diagnoses / Procedures Referred By Contac t Referred To Contact Diagnoses Consecutive alternating esotropia Diplopia Consecutive alternating esotropia Diplopia Procedures CORRECTION STRABISMUS (RECESSION/RESECTION EYE MUSCLE) Referral ID Status Reason Start Date Expiration Date Visits Re quested Visits Authorized [id number] 1 1 Encounter Details Date Type Department Care Team (Late st Contact Info) Description 08/03/2021 12:30 PM CDT - 08/03/2021 2:20 PM CDT Surgery [facility] [address] [place] [address] Sin Romero MD [address] [place] [address] BIMEDIAL RECTUS RECESSION WITH DOWNWARD TRANSPOSITION Surgery Details Date/Time Status Location OR Service Patient Class Case Class Case Type Trauma Case? 08/03/2021 12:30 PM Posted [facility] [employer] [facility] OR 02 Ophthalmology Surgery Day Care Panel 1 Procedure LRB Anes Op Region Wound Class Comments BIMEDIAL RECTUS RECESSION WI TH DOWNWARD TRANSPOSITION Bilateral General Eye Clean Surgeon Surgeon Role Service Panel Sin Romero MD Primary Ophthalmology 1 Eloina Maguire MD Resident - Assisting Ophthalmology 1 Special Needs ANESTHESIA GENERAL W/LOCAL SUPINE documented in this encounter Social History Tobacco [...] Sign Reading Time Taken Comments Blood Pressure 116/69 08/03/2021 11:09 AM CDT Pulse 64 08/03/2021 11:09 AM CDT Temperature 36.9 ??C (98.5 ??F) 08/03/2021 11:09 AM C DT Respiratory Rate - - Oxygen Saturation 100% 08/03/2021 11:09 AM CDT Inhaled Oxygen Concentration - - Weight 52.6 kg (116 lb) 08/03/2021 10:46 AM CDT Height 162.6 cm (5' 4 ) 08/03/2021 10:46 AM CDT Body Mass Index 19.91 08/03/2021 10:46 AM CDT documented in this encounter Discharge Summaries * Eloina Maguire MD - 08/03/2021 2:33 PM CDT SAME DAY SURGERY DISCHARGE SUMMARY Patient ID: Kaitlin Bond [id number] 71 year old 1950 Date of Surgery: [...] Your Medications These medications were sent to [id number], [place] [address] ?? ketorolac 10 MG tablet Discharge Procedure [...] scheduled on 08/10/[address] Romero at [address] [place] [address] at 3:30PM TODAY: - Put drop in [...] questions, please call the ophthalmology office at #[phone] Disposition: home Eloina Maguire MD 08/03/2021 2:33 PM documented in this encounter Discharge Instructions * Discharge Instructions* Eloina Maguire MD - 08/03/2021 12:38 PM CDT POST-OPERATIVE INSTRUCTIONS EYE MUSCLE SURGERY FOLLOW-UP APPOINTMENT: [address] Romero as scheduled on 08/10/[address] Romero at [address] [place] [address] at 3:30PM TODAY: - Put drop in [...] questions, please call the ophthalmology office at #[phone] documented in this encounter Medications at Time [...] Romero MD - 08/03/2021 1:35 [place] [address] OPERATIVE REPORT NAME: Kaitlin Bond : 1950 [facility] #: [id number] . DATE OF OPERATION: 08/03/2021 ATTENDING SURGEON: Sin Romero M.D. SCRATCH POLISHER: Eloina Maguire MD PREOPERATIVE DIAGNOSIS: V pattern [...] SUPINE documented in this encounter Visit Diagnoses Diagnosis Consecutive alternating esotropia Alternating esotropia Diplopia documented in this encounter Administered Medications [...] PF) 0.5 % injection PRN, Starting on Mon08/03/21 at 1345, Until Mon08/03/21 at 1428, Intra-op $ Given 08/03/2021 1:45 PM CDT 2 mL Eye-Bilateral lactated ringers infusion at 75 mL/hr, Intravenous, CONTINUOUS, Starting on Mon08/03/21 at 1045, Until Mon08/03/21 at 1710, Pre-op $ New Bag/Syringe 08/03/2021 11:16 AM CDT 75 mL/hr tobramycin-dexAMETHas one (Tobradex) 0.3-0.1 % ophthalmic suspension PRN, Starting on Mon08/03/21 at 1425, Until Mon08/03/21 at 1428, Intra-op $ Given 08/03/2021 2:25 PM CDT 1 drop Eye-Bilateral documented in [...] at 75 mL/hr, Intravenous, CONTINUOUS, Starting on Mon08/03/21 at 1045, Until Mon08/03/21 at 1710, Pre-op 1116 ($ New Bag/Syri nge - Provider: Caitlin Hong RN) PRN Medication Order 08/01/2021 08/02/2021 08/03/2021 0.9% NaCl injection 1-10 mL(Linked Group 1) [...] PRN, Starting on Mon08/03/21 at 1425, Until 08/03/21 at 1428, Intra-op 1425 ($ Given - [...] Pre-op documented in this encounter Care Teams Coater Relationship Specialty Start Date End Date Gadiel Zavala MD [address] [facility] [address] [address] PCP - General 02/15/21 documented as of this encounter
--- OUTSIDE RECORDS SUMMARY | 2024-04-17 11:42 | XMS_ITS | Clinical Summary ---
Author Organization [facility] Address [address] [place] [address] Phone Care Team Providers Care Picking Machine Operator Helper Name Role Phone Gadiel Zavala MD Primary Care Provider [phone] Allergies Active Allergy Reactions Criticality Noted Date Comments Adhesive Rash Low 02/14/2017 Adhesive Tape-Silicones Rash Low Gadolinium-Containing Contrast Media Hives High 02/28/2017 Gadopentetate Dimeglumine Hives High 02/28/2017 Latex Other (See Comments) 10/31/2017 Pt states no. Is fine with gloves. Only allergy is to adhesive. Medications Medication Sig Dispensed Refills Start Date End Date Status omeprazole (PriLOSEC) 40 mg Capsule, Delayed Release(E.C.) Take 40 mg by mouth 2 times daily. Active levothyroxine 50 mcg tablet Take 50 mcg by mouth daily rn camp. Active atorvastatin (LIPITOR) 20 mg tablet Take 20 mg by mouth daily. Active lisinopril (PRINIVIL) 40 mg tablet Take 40 mg by mouth daily at bedtime. Active FLUoxetine (PROzac) 40 mg capsule Take 40 mg by mouth daily at bedtime. Active DULoxetine (CYMBALTA) 60 mg Capsule, Delayed Release(E.C.) Take 60 mg by mouth daily at bedtime. Active cyanocobalamin (VITAMIN B-12) 100 mcg tablet Take 3,000 mcg by mouth daily . Active calcium carbonate 600 mg-vitamin D3 20 mcg (800 unit) chewable tablet Take by mouth daily. Active eszopiclone 3 mg tablet Take 5 mg by mouth nightly as needed for Insomnia. Active acetaminophen (TYLENOL) 325 mg tablet Take 2 Tablets (650 mg) by mouth every 4 hours as needed for Pain. 03/01/2017 Active docusate sodium (COLACE) 100 mg capsule Take 1 Capsule (100 mg) by mouth 2 times daily. 03/14/2017 Active sennosides-docusate sodium (SENNA-S) 8.6-50 mg tablet Take 1 Tablet by mouth daily at bedtime. 03/14/2017 Active melatonin 3 mg Tablet Take 1 Tablet (3 mg) by mouth daily at bedtime. 03/14/2017 Active methocarbamol (ROBAXIN) 500 mg tablet Take 1 Tablet (500 mg) by mouth 3 times daily as needed for Spasm Contact PCP for refills. 90 Tablet 03/14/2017 Active metoprolol succinate (TOPROL XL) 100 mg Extended Release 24 hour tablet Take 100 mg by mouth daily. Active celecoxib 200 mg capsule Take 200 mg by mouth 2 times daily. Active oxyCODONE-acetamino phen (PERCOCET) 5-325 mg tablet Take 1-2 Tablets by mouth every 4 hours as needed for Pain, Moderate. Max Daily Amount: 12 Tablets 20 Tablet 11/16/2017 Active meloxicam (MOBIC) 15 mg tablet Take 15 mg by mouth daily. Active naloxone (NARCAN) 4 mg/spray [place], Non-Aerosol EMERGENCY USE ONLY: Administer 1 spray (4 mg) in one nostril one time. May repeat in alternating nostrils every 2-3 min until responsive or EMS arrives. 2 Each 3 09/08/2020 Active FLAXSEED OIL ORAL Take by mouth. Act charo OTHER Prevagen Active amLODIPine (NORVASC) 10 mg tablet Take 10 mg by mouth daily. Active oxybutynin chloride (DITROPAN) 5 mg tablet Take 5 mg by mouth 2 times daily. Active linaCLOtide 72 mcg capsule Take 72 mcg by mouth daily before breakfast. Active vitamin B complex (B COMPLEX 1 ORAL) Take by mouth. Ac tive losartan (COZAAR) 25 mg tablet Take 25 mg by mouth daily. Active duloxetine HCl (DULOXETINE ORAL) Take 50 mg by mouth daily. Active levothyroxine 50 mcg tablet Take 50 mcg by mouth daily in the morning. Active selenium 200 mcg Tablet Take 200 mcg by mouth. Active coffee xt/phosphatidyl serine (NEURIVA ORIGINAL ORAL) Take by mouth. 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 Essential hypertension 02/28/2017 Depression 02/28/2017 Cervical stenosis of spine 02/16/2017 Fall Cervical myelopathy Immunizations Name Administration Dates Next Due Influenza Vaccine High Dose 65+ Yrs IM 7 Social History Tobacco Use Types Packs/Day Years Used Date Smoking Tobacco: Former Cigarettes 0.3 5 1 4 - 1988 Smokeless Tobacco: Never Tobacco Cessation:Counseling [...] Comments Blood Pressure 122/80 06/14/2022 10:12 AM MACHINE PAINT MIXER Pulse 57 06/14/2022 10:12 AM MACHINE PAINT MIXER Temperature 36.7 ??C (98.1 ??F) 02/05/2021 5:04 PM CD T Respiratory Rate 16 02/05/2021 5:04 PM CDT Oxygen Saturation 99% 02/05/2021 5:04 PM CDT Inhaled Oxygen Concentration - - Weight 57.4 kg (126 lb 8 oz) 06/14/2022 10:12 AM MACHINE PAINT MIXER Height 152.4 cm (5') 06/14/2022 10:12 AM MACHINE PAINT MIXER Body Mass Index 24.71 06/14/2022 10:12 AM MACHINE PAINT MIXER Plan of Treatment Health Maintenance Due Date Last Done Comments DTAP/TDAP/TD VACCINES (1 - Tdap) 07/22/1967 COLORECTAL SCREENING 1993 Colorectal Cancer Screening 1993 FIT-DNA Q 3 years 1993 FIT/FOBT Q 1 year 1993 Flex Sig/CT Colonography Q 5 years 1993 ZOSTER VACCINE (1 of 2) 1998 OSTEOPOROSIS SCREENING 2013 PNEUMOCOCCAL VACCINE 65+ YEA RS (1 of 1 - PCV) 2013 RSV VACCINE (60+ or ) (1 - 1-dose 75+ series) 07/22/2023 INFLUENZA VACCINE (#1) 2023 01/26/2021, 2016 Medical Devices Implanted Type Area Orthopedics Pediatric Physician Device Identifier Shelf Expiration Date Model / Serial / Lot Spacer Bio Avs C-Plg 6mm 4d [id number] - [id number] Implanted:Qt y: 1 on 02/16/2017 by Mylene Gutierrez MD at [facility] Biological N/A: Spine Cervical Anterior SEN- SPINE 09/12/2020 [id number] / [id number] / Description:All [place] spac er plugs and other spinal hardware was processed on requisition,[id number] Plate Aviator 1lvl 12mm [id number] - [id number] Implanted:Qt y: 1 on 02/16/2017 by Mylene Gutierrez MD at [facility] Plate N/A: Spine Cervical Anterior SEN- SPINE [id number] / STERILIZED 02/16/2017 / LOAD24 Screw Avtr Va [address] 4.0x14mm [id number] - [id number] Implanted:Qt y: 4 on 02/16/2017 by Mylene Gutierrez MD at [facility] Screw N/A: Spine Cervical Anterior SEN- SPINE [id number] / STERILIZED 02/16/2017 / LOAD24 Sealant Floseal 10ml [id number] - [id number] Implanted:Qt y: 1 on 02/16/2017 by Mylene Gutierrez MD at [facility] Sealant N/A: Spine Cervical Anterior CHERRY- BIOSCIENCE [id number] 03/16/2018 [id number] / / [id number] Cages In Back Explanted Type Area Orthopedics Pediatric Physician Device Identifier Shelf Expiration Date Model / Serial / Lot Spinal Cord Generator And Leads Explanted:Qty: 1 on 11/16/2017 by Mylene Gutierrez MD at [facility] Lead N/A: Back Advance Directives For more information, please contact: [phone] * Full Code (Latest Code Status on File) Date Activated Date Inactivated Comments 02/05/2021 1:51 PM 02/05/2021 7:21 PM * Full Code Date Activated Date Inactivated Comments 02/05/2021 12:29 PM 02/05/2021 1:50 PM * Full Code Date Activated Date Inactivated Comments 02/05/2021 12:29 PM 02/05/2021 12:29 PM * Full Code Date Activated Date Inactivated Comments 11/16/2017 12:50 PM 11/16/2017 5:44 PM * Full Code Date Activated Date Inactivated Comments 11/16/2017 12:48 PM 11/16/2017 12:50 PM Care Teams Picking Machine Operator Helper Relationship Specialty Start Date End Date Gadiel Zavala MD [address] [place] [address] PCP - General Family Practice 03/03/17
--- OUTSIDE RECORDS SUMMARY | 2024-04-17 11:42 | XMS_ITS | Encounter Summary ---
Author Organization [facility] Address [address] [place] [address] Care Team Providers Care Spray Gun Repairer Name Role Phone Gadiel Zavala MD Primary Care Provider [phone] Encounter Details Date Type Department Care Team (Late st Contact Info) Description 05/31/2023 External Device Data [facility] ABSTRACTION Provider, Abstract [...] on filedocumented in this encounter Care Teams Spray Gun Repairer Relationship Specialty Start Date End Date Gadiel Zavala MD [address] [place] [phone] PCP - General Family Practice 03/03/17 documented as of this encounter
--- OUTSIDE RECORDS SUMMARY | 2024-04-17 11:42 | XMS_ITS | Encounter Summary ---
Author Organization [facility] Address [address] [place] [address] Care Team Providers Care Stone Planer Name Role Phone Gadiel Zavala MD Primary Care Provider [phone] Encounter Details Date Type Department Care Team (Late st Contact Info) Description 05/30/[address] [facility] Neurosurgery - [facility] [address] [place] [address] Mylene Gutierrez MD [address] [facility] [address] [address] -x0 (Work) Social History Tobacco Use Types [...] Procedure Name Priority Date/Time Associated Diagnosis Comments MRI CERVICAL WO CONTRAST Routine 05/28/2022 documented in this encounter Results * MRI CERVICAL WO CONTRAST (05/28/2022) Anatomical Region Laterality Modality Spine Other Mylene Gutierrez MD MR ORDERABLES documented in this encounter Visit Diagnoses Not on filedocumented in this encounter Care Teams Stone Planer Relationship Specialty Start Date End Date Gadiel Zavala MD [address] [place] [address] PCP - General Family Practice 03/03/17 documented as of this encounter
--- OUTSIDE RECORDS SUMMARY | 2024-04-17 11:42 | XMS_ITS | Encounter Summary ---
Author Organization [facility] Address [address] [place] [address] Care Team Providers Care Family Services Worker Name Role Phone Gadiel Zavala MD Primary Care Provider [phone] Encounter Details Date Type Department Care Team (Late st Contact Info) Description 01/19/2023 External Device Data [facility] ABSTRACTION Provider, Abstract [...] on filedocumented in this encounter Care Teams Family Services Worker Relationship Specialty Start Date End Date Gadiel Zavala MD [address] [place] [phone] PCP - General Family Practice 03/03/17 documented as of this encounter
--- OUTSIDE RECORDS SUMMARY | 2024-04-17 11:43 | XMS_ITS | Encounter Summary ---
Author Organization [facility] Address [address] [place] [address] Care Team Providers Care Juice Tester Name Role Phone Gadiel Zavala MD Primary Care Provider [phone] Reason for Visit * Reason Onset Date Comments Double Vision 03/10/2021 Encounter Details Date Type Department Care Team (Late st Contact Info) Description 03/10/2021 Telephone [facility] Children's Slot Shift Supervisor Medical [place] A [address] [place] [address] [place] [address] Miguel Childs MD [address] [facility] [address] [place] [address] Double Vision Social History Tobacco Use Types Packs/Day Years [...] have Coronavirus / COVID-19? No / Unsure 02/25/2021 3:21 PM CDT documented as of this encounter Miscellaneous Notes * Telephone Encounter - Miguel Childs MD - 03/10/2021 2:03 PM CST Patient reports persistent diplopia. Single vision only in upgaze. Does not wear glasses well. Reviewed options and suggested office visit in March. ER HELPER documented in this encounter Plan of Treatment Not on file documented as of this encounter Visit Diagnoses Not on filedocumented in this encounter Care Teams Juice Tester Relationship Specialty Start Date End Date Gadiel Zavala MD [address] [place] [address] PCP - General Family Practice 03/03/17 documented as of this encounter
--- OUTSIDE RECORDS SUMMARY | 2024-04-17 11:43 | XMS_ITS | Encounter Summary ---
Author Organization [facility] Address [address] [place] [address] Care Team Providers Care Cap Blocker Name Role Phone Gadiel Zavala MD Primary Care Provider [phone] Encounter Details Date Type Department Care Team (Late st Contact Info) Description 02/05/2021 12:55 PM CDT Anesthesia Event [facility] Operating Room [address] [place] [address] Eloina Jiménez MD [address] [place] [address] Anesthesia Record Procedure Summary Procedure Name Responsible Anesthesiologist Anesthesia Start Time Anesthesia Stop Time EYE MUSCLE REPAIR RECESSION RESECTION (Bilateral: Eye) Eloina Jiménez MD 02/05/21 1255 02/05/21 1425 Events Date Time Event Comment 02/05/2021 1120 1147 AN Equip Check Anesthesia eq uipment and materials checked in accordance with local policy. 1255 In Room This event disp lays the In Room time documented in the Surgical Log. Deleting this event will not remove it from the log but will remove it from the Grid and Graph timeline. 1255 An Start 1259 An Start Data 1259 Pre-Induction Immediate pre- induction anesthetic assessment performed. Vital signs as noted on graphic. 1304 An Induction 1305 An Intubation 1308 Anesthesia Ready 1316 Procedure Start This event d isplays the Procedure Start time documented in the Surgical Log. Deleting this event will not remove it from the log but will remove it from the Grid and Graph timeline. 1409 Procedure Stop This event di splays the Procedure Stop time documented in the Surgical Log. Deleting this event will not remove it from the log but will remove it from the Grid and Graph timeline. 1421 An Extubation Emergence unev entful Awake, spontaneous respirations. Adequate muscle strength demonstrated Adequate tidal volume. Orapharynx suctioned. Extubated with positive pressure ventilation. 1423 an stop data 1425 Out of Room This event disp lays the Out of Room time documented in the Surgical Log. Deleting this event will not remove it from the log but will remove it from the Grid and Graph timeline. 1425 An Stop Meds Name Total lidocaine PF (XYLOCAINE MPF) 20 mg/mL sy ringe 60 mg fentaNYL (SUBLIMAZE) PF 50??mcg/mL injec tion 50 mcg succinylcholine (ANECTINE) 100 mg/5 mL i v syringe 100 mg propofol (DIPRIVAN) 10??mg/mL injection 394.46 mg dexamethasone (DECADRON) 4 mg/mL injecti on 4 mg ondansetron (ZOFRAN) 4??mg/2 mL injectio n 4 mg diphenhydrAMINE (BENADRYL) 50 mg/mL inje ction 12.5 mg midazolam PF (VERSED) 1 mg/mL injection 1 mg morphine 10 mg/mL injection 2 mg glycopyrrolate (ROBINUL) 0.6 mg/3 mL (0. 2 mg/mL) syringe 0.4 mg lactated ringers infusion 900 mL * Agents Name Sevoflurane % Desflurane % Sevoflurane Desflurane O2 N2O Inspired N2O O2 * Blood No blood administrations on file. Lines, Drains, and Airways Type Details Placement Removal Peripheral IV Orientation: Anterio r, Left, Lower; Location: Arm; Device: Angiocath; Gauge: 20 gauge; Needle Length: 1 in length; Insertion Attempts: 2; Patient Tolerance: tolerated well; Removal Indication: no longer indicated; Removal Interventions: direct pressure, catheter intact 02/05/21 1240 by Mary Smith RN 02/05/21 1712 by Leah Matson RN Endotracheal Airway Type: ETT; Size: 6; Attempts: 1; Verification: Auscultated bilateral breath sounds, Equal chest movement, Continuous waveform capnography 02/05/21 1318 by Lyudmila Jorge CRNA 02/05/21 1423 by Lyudmila Jorge CRNA Incision 02/05/21; 1323; surgical incision; Bilateral; eye; 02/06/21; 0516 02/05/21 1323 by Fox Barger RN 02/06/21 0516 by PROVIDER, DISCHARGE PATIENT documented in this encounter Social History Tobacco [...] have Coronavirus / COVID-19? No / Unsure 02/05/2021 12:14 PM CDT documented as of this encounter OR Notes * Anesthesia Postprocedure Evaluation - Brice Way MD - 02/05/2021 2:36 PM CDT Phase I Postanesthesia Evaluation Including Modified Cynthia Score Patient seen and evaluated: Modified Cynthia Score: Score: 8 (02/05/211424) COMMENTS: No apparent Anesthesia related complications RESPIRATORY FUNCTION: Respiration: able to breath and cough freely (02/05/211424) [2=able to breathe and cough freely, 1=dyspnea, limited breathing or tachypnea, 0=apnea or mechanicventilator] O2 Saturation: needs O2 inhalation to maintain O2 saturation greater than 90% (02/05/211424) [2=able to maintain O2 saturation greater than 92% on room air, 1=needs O2 inhalation to maintain O2 saturation greater than 90%, 0=O2 saturation less than 90% even with O2 supplement] Resp: 18 (02/05/211424)SpO2: 100 % (02/05/211424) CARDIOVASCULAR FUNCTION: Heart Rate: 80 bpm (02/05/211424) BP: 119/71 (02/05/211424) Circulation: BP within 20% of preanesthetic level (02/05/211424) [2=BP within 20% of preanesthetic level, 1=BP within 20-49% of preanesthetic level, 0=BP within 50%of preanesthetic level] MENTAL STATUS, NEURO, ACTIVITY: PATIENT PARTICIPATION IN EVALUATION:yes Consciousness: arousable on calling (02/05/21 142) [2=fully awake, 1=arousable on calling, 0=not responding] Activity: able to move 4 extremities voluntarily or on command (02/05/21 142) [2=able to move 4 extremities voluntarily or on command, 1=able to move 2 extremities voluntarily or on command, 0=unable to move extremities voluntarily or on command] TEMPERATURE: Temp: 36.4 ??C (02/05/21 1425) PAIN: Presence of Pain: denies pain/discomfort (02/05/21 1223) NAUSEA AND VOMITING: no nausea and no vomiting POSTOPERATIVE HYDRATION: well hydrated Intake/Output Summary (Last 24 hours) at 02/05/2021 1436 Last data filed at 02/05/2021 1409 Gross per 24 hour Intake 900 ml Output -- Net [address] MD 02/05/2021 2:36 PM Post Anesthesia Evaluation Vitals: Vitals Value Taken Time BP 118/77 02/05/21 1435 Temp 36.4 ??C 02/05/21 1425 Resp 16 02/05/21 1436 SpO2 100 % 02/05/21 143 Pulse 81 02/05/21 143 Heart Rate 81 bpm 02/05/211435 Vitals shown include unvalidated device data. Pain Rating: Anesthesia Post Evaluation Brice Way MD * Anesthesia Handoff - Lyudmila Jorge CRNA - 02/05/2021 2:25 PM CDT Post-Anesthetic transfer of care report elements to appropriate post-anesthesia recovery environment completed in accordance with procedure. I completed my handoff to the receiving nurse during which we: 1. Identified the patient 2. Identified the responsible provider 3. Reviewed the pertinent medical history 4. Discussed the surgical course 5. Reviewed intra-op anesthesia management and issues during anesthesia 6. Set expectations for post-procedure period 7. Orders as necessary and appropriate for continuation of care are present in Epic. 8. Allowed opportunity for questions and acknowledgement of understanding. Vital Signs: BP: 119/71 (02/05/2021 2:25 PM) Pulse: 80 (02/05/2021 2:25 PM) Heart Rate: 80 bpm (02/05/2021 2:25 PM) Temp: 36.4 ??C (02/05/2021 2:25 PM) Resp: 18 (02/05/2021 2:25 PM) SpO2: 100 % (02/05/2021 2:25 PM) 2:29 PM Lyudmila Jorge CRNA * Anesthesia Procedure Notes - Lyudmila Jorge CRNA - 02/05/2021 1:17 PM CDT Associated Order(s): Airway Airway Location: OR Plan: routine intubation Patient Identity Confirmed by: Verbally with patient and armband Airway: not difficult Indications and Patient Condition: Indications for Airway Management: Anesthesia and airway protection Preoxygenated: Yes Mask Difficulty Assessment: 1 - vent by mask Plan to extubate at end of case: Yes Final Airway Details: Final Airway Type: Endotracheal airway Final Endotracheal Airway: ETT Cuffed: Yes Technique Used for Successful ETT Placement: Video laryngoscopy Devices/Methods Used in Placement: Curved blade Insertion Site: Oral Laryngoscope Blade/Videolaryngoscope Blade Size: 3 ETT Size (mm): 6.0 Measured from: Teeth ETT to Teeth (cm): 20 Tube secured with: Tape Placement Verified by: auscultation, end tidal CO2 and chest rise Cormack-Lehane Classification: Grade I - full view of glottis Number of Attempts at Approach: 1 Additional Comments: Atraumatic, elective use of AMBER Munguia * Anesthesia Preprocedure Evaluation - Eloina Jiménez MD - 02/05/2021 12:37 PM CDT Relevant Problems CARDIOVASCULAR (+) Essential hypertension Anesthesia Evaluation Patient summary reviewed and Nursing notes reviewed Airway Mallampati: I TM distance: <3 FB Neck ROM: full Dental - normal exam Pulmonary - negative ROS and normal exam breath sounds clear to auscultation Cardiovascular - normal exam Exercise tolerance: good (+) hypertension well controlled, Rhythm: regular Rate: normal Neuro/Psych (+) neuromuscular disease, headaches, psychiatric history GI/Hepatic/Renal (+) GERD well controlled, Endo/Other (+) hypothyroidism, arthritis Abdominal Anesthesia History History of PONV.No history of anesthetic complications, no history of difficult intubation, no history of malignant hyperthermia and no pseudocholinesterase deficiency. Comments: glidescope for 2018 neck surgery +PONV in the past helped with IV medications. Anesthesia Plan ASA Final: 2 General (Preop tylenol zofran. Glidescope intubation) Intravenous induction Oral ETT airway maintenance NPO status > 8 hours Anesthetic plan and risks discussed with Patient. Use of blood products: consented to blood products. Plan discussed with Nurse Air Hole Driller and Surgeon. Post-op Pain Control Plan to use IV or IM medication, Oral medication and Per surgeon for post-op pain control. Plan for postoperative opioid use Smoking Compliance Patient did not smoke on day of surgery documented in this encounter Plan of Treatment Not on file documented as of this encounter Procedures Procedure Name Priority Date/Time Associated Diagnosis Comments HI ANES INSERT ENDOTRACHEAL AIRWAY Routine 02/05/2021 1:17 PM CDT documented in this encounter Results * HI ANES INSERT ENDOTRACHEAL AIRWAY (02/05/2021 1:17 PM CDT) Narrative Lyudmila Jorge CRNA - 02/05/2021 1:17 PM CDT Lyudmila Jorge CRNA ? 02/05/2021 ??1:18 PM Airway Location: OR Plan: routine intubation Patient Identity Confirmed by: ??Verbally with patient and armband Airway: not difficult Indications and Patient Condition: ??Indications for Airway Management: ??Anesthesia and airway protection ??Preoxygenated: Yes ?Mask Difficulty Assessment: ??1 - vent by mask ??Plan to extubate at end of case: Yes ?? Final Airway Details: ??Final Airway Type: ??Endotracheal airway ??Final Endotracheal Airway: ??ETT ??Cuffed: Yes ?Technique Used for Successful ETT Placement: ??Video laryngoscopy ??Devices/Methods Used in Placement: ??Curved blade ??Insertion Site: ??Oral ??Laryngoscope Blade/Videolaryngoscope Blade Size: ??3 ??ETT Size (mm): ??6.0 ??Measured from: ??Teeth ??ETT to Teeth (cm): ??20 ??Tube secured with: ??Tape ??Placement Verified by: auscultation, end tidal CO2 and chest rise ?Cormack-Lehane Classification: ??Grade I - full view of glottis ??Number of Attempts at Approach: ??1 Additional Comments: ?? Atraumatic, elective use of AMBER Munguia Eloina Jiménez MD PROCEDURE/MINOR SURGICAL ORDERABLES documented in this encounter Visit Diagnoses Not on filedocumented in this encounter Administered Medications Inactive Administered Medications - up to 3 most recent administrations Medication Order MAR Action Action Date Dose Rate Site dexamethasone (DECADRON) 4 mg/mL injection IV, INTRA-PROCEDURE PRN, Starting on Mon02/05/21 at 1311, Until Mon02/05/21 at 1429, Routine, Anesthesia Intra-op Given 02/05/2021 1:11 PM CDT 4 mg diphenhydrAMINE (BENADRYL) injection IV, INTRA-PROCEDURE PRN, Starting on Mon02/05/21 at 1314, Until Mon02/05/21 at 1429, Routine, Anesthesia Intra-op Given 02/05/2021 1:14 PM CDT 12.5 mg fentaNYL PF (SUBLIMAZE) 50 mcg/mL injection IV, INTRA-PROCEDURE PRN, Starting on Mon02/05/21 at 1304, Until Mon02/05/21 at 1429, Routine, Anesthesia Intra-op Given 02/05/2021 1:04 PM CDT 50 mcg glycopyrrolate (ROBINUL) syringe IV, INTRA-PROCEDURE PRN, Starting on Mon02/05/21 at 1342, Until Mon02/05/21 at 1429, Routine, Anesthesia Intra-op Given 02/05/2021 1:42 PM CDT 0.4 mg lactated ringers infusion IV, at 150 mL/hr, CONTINUOUS, Starting on Mon02/05/21 at 1245, Until Mon02/05/21 at 1916, Routine New Bag 02/05/2021 2:09 PM CDT Restarted 02/05/2021 12:56 PM CDT Continue from Pre-Op 02/05/2021 12:55 PM CDT 15 0 mL/hr lidocaine (PF) (XYLOCAINE MPF) 60 mg/3 mL (2 %) injection syringe IV, INTRA-PROCEDURE PRN, Starting on Mon02/05/21 at 1304, Until Mon02/05/21 at 1429, Routine, Anesthesia Intra-op Given 02/05/2021 1:04 PM CDT 60 mg midazolam (PF) (VERSED) injection IV, INTRA-PROCEDURE PRN, Starting on Mon02/05/21 at 1259, Until Mon02/05/21 at 1429, Routine, Anesthesia Intra-op Given 02/05/2021 12:59 PM CDT 1 mg morphine injection IV, INTRA-PROCEDURE PRN, Starting on Mon02/05/21 at 1421, Until Mon02/05/21 at 1429, Routine, Anesthesia Intra-op Given 02/05/2021 2:21 PM CDT 2 mg ondansetron (ZOFRAN) 4 mg/2 mL injection IV, INTRA-PROCEDURE PRN, Starting on Mon02/05/21 at 1311, Until Mon02/05/21 at 1429, Routine, Anesthesia Intra-op Given 02/05/2021 1:11 PM CDT 4 mg propofoL (DIPRIVAN) injection IV, INTRA-PROCEDURE PRN, Starting on Mon02/05/21 at 1304, Until Mon02/05/21 at 1429, Anesthesia Intra-op Given 02/05/2021 1:18 PM CDT 70 mg New Bag 02/05/2021 1:08 PM CDT 50 mcg/kg/min 17.16 mL/h r Given 02/05/2021 1:04 PM CDT 150 mg succinylcholine (ANECTINE) 100 mg/5 mL (20 mg/mL) iv syringe IV, INTRA-PROCEDURE PRN, Starting on Mon02/05/21 at 1304, Until Mon02/05/21 at 1429, Routine, Anesthesia Intra-op Given 02/05/2021 1:04 PM CDT 100 mg documented in this encounter Care Teams Cap Blocker Relationship Specialty Start Date End Date Gadiel Zavala MD [address] [place] [address] PCP - General Family Practice 03/03/17 documented as of this encounter
--- OUTSIDE RECORDS SUMMARY | 2024-04-17 11:43 | XMS_ITS | Encounter Summary ---
Author Organization [facility] Address [address] [place] [address] Care Team Providers Care Plant Manager Name Role Phone Gadiel Zavala MD Primary Care Provider [phone] Reason for Visit * Reason Comments Double Vision Encounter Details Date Type Department Care Team (Late st Contact Info) Description 12/24/2020 2:00 PM CDT Office Visit [facility] [place] A [address] [place] [address] [place] [address] Miguel Childs MD [address] [facility] [address] [facility] [place] [address] Exotropia, intermittent, monocular (Primary Dx); Binocular vision disorder with diplopia; Cervical stenosis of spine; Depression, unspecified depression type; Major depressive disorder, remission status unspecified, unspecified whether recurrent Social History Tobacco Use Types Packs/Day Years [...] have Coronavirus / COVID-19? No / Unsure 12/24/2020 1:42 PM CDT documented as of this encounter Progress Notes * Miguel Childs MD - 12/24/2020 2:27 PM CDT Images from the original note were not included. PATIENT NAME: Kaitlin Bond : 1950 70 y.o. EXAM DATE: 12/24/2020 Referring Provider: Kiko Chief Complaint: Chief Complaint Patient presents with ??? 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 Duration of years. Occurring constantly. Since last office visit, it is gradually worsening. Comments She feels that misalignment is getting worse Says that OS is crossed all the time now Also in the mornings can't open eyes She says that she has to use systane and then she can open them Feels like there is something in eyes and is uncomfortable to open them But also says that she physically can't open them Eyes have started burning OS>OD History obtained from patient Review of Systems: ROS Positive for: Eyes Negative for: Constitutional, Gastrointestinal, Neurological, Skin, Genitourinary, Musculoskeletal,HENT, Endocrine, Cardiovascular, Respiratory, Psychiatric, Allergic/Imm, Heme/Lymph Past Medical History: Past Medical History: Diagnosis Date ??? Anxiety ??? Arthritis ??? At risk for obstructive sleep apnea 3 ??? Cataract ??? Depression ??? Diabetes mellitus ??? Dyspnea on exertion ??? GERD (gastroesophageal reflux disease) ??? Glaucoma ??? History of complications due to general anesthesia takes a while to wake up ??? HTN (hypertension) ??? Hyperlipidemia ??? Hypothyroidism ??? Injury of back from a fall ??? Macular degeneration ??? Migraine ??? Motion sickness ??? Neuropathy ??? Post-operative nausea and vomiting ??? PUD (peptic ulcer disease) ??? Temporomandibular joint disorder Past Surgical History: Past Surgical History: Procedure Laterality Date ??? CATARACT EXTRACTION ??? HX HYSTERECTOMY ??? HX SPINAL SURGERY lumbar fusion 2013, cervical 1991 ??? HX TUBAL LIGATION ??? KYPHOPLASTY, LUMBAR 2016 ??? [place] CERV SPINE FUSN,ANTER,BELOW C2 N/A 02/16/2017 CERVICAL DISCECTOMY FUSION 1 LEVEL ANTERIOR, C3-4 performed by Mylene Gutierrez MD at [facility] ??? [place] IMPLANT SPINAL NEUROSTIM/VP ANALYTICS N/A 11/16/2017 SPINAL CORD DORSAL COLUMN STIMULATOR REMOVAL performed by Mylene Gutierrez MD at [facility] Medications: Current Outpatient Medications on File Prior to Visit Medication Sig Dispense Refill ??? meloxicam (MOBIC) 15 mg tablet Take 15 mg by mouth daily. ??? naloxone (NARCAN) 4 mg/spray [place], Non-Aerosol EMERGENCY USE ONLY: Administer 1 spray [...] hour tablet Take 100 mg by mouth daily at bedtime. ??? celecoxib (CeleBREX) 200 mg capsule Take 200 mg by mouth daily at bedtime. ??? docusate sodium (COLACE) 100 mg capsule [...] Delayed Release(E.C.) Take 40 mg by mouth daily. ??? 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 ??? atorvastatin (LIPITOR) 20 mg tablet Take 20 mg by mouth late in the day. ??? lisinopril (PRINIVIL) 40 mg tablet Take [...] No family history on file. Social History: No specialty comments available. Ophthalmology Exam Base Eye Exam Visual Acuity (Snellen - Linear) Right Left Dist cc 20/20 20/20 -1 Near cc 20/100+2 20/30- Correction: Glasses Pupils Pupils Right PERRL Left PERRL Visual Vega Left Right Full Full Extraocular Movement Right Left Full Full Neuro/Psych Oriented x3: Yes Mood/Affect: Normal Edited by: Carolina Flores Steven, MD Strabismus Exam 0 0 0 0 0 0 LX(T) 18 0 0 LX(T) 25 0 0 LX(T) 20 0 0 0 0 0 0 Edited by: Miguel Childs MD Slit Lamp and Fundus Exam External Exam Right Left External Normal Normal Slit Lamp Exam Right Left Lids/Lashes Normal Normal Conjunctiva/Sclera White and quiet White and quiet Cornea Krukenberg's spindle, Clear corneal incision Krukenberg's [...] Childs MD Refraction Wearing Rx Sphere Cylinder Hallett Add Horz Prism Right -0.75 +1.25 025 +2.50 3 BI Left -0.50 +1.00 165 +2.50 2 MEEK Age: 4m Edited by: Carolina Flores Testing/Data: I reviewed the brain MRI from [facility]. Non-specific T2 white matter changes. ACETYLCHOLINE PSYCHOLOGY ASSISTANT BINDING AB ACETYLCHOLINE RECEPTOR BINDING ANTIBODY Collected: 12/01/20 1436 Result status: Final Resulting lab: [facility] Reference range: nmol/L Value: <0.30 Comment: ?? Reference Ranges for Acetylcholine Receptor ?? Binding Antibody: ?Negative: < or =0.30 nmol/L Equivocal: ??0.31-0.49 nmol/L ??Positive: > or =0.50 nmol/L FASTING:NO FASTING: NO Test Performed at: [email or web address], [address] [facility], [place] ??[address] Mari Wells MD,PhD,LANCE ASSESSMENT and PLAN: ICD-10-CM ICD-9-CM 1. Exotropia, intermittent, monocular H50.30 378.23 2. Binocular vision disorder with diplopia H53.2 368.2 3. Cervical stenosis of spine M48.02 723.0 4. Depression, unspecified depression type F32.9 311 Kaitlin Bond demonstrates persistent, intermittent strabismus causing diplopia. Diagnostic testing has excluded structural anatomic conditions in the brain and no evidence of myasthenia gravis. I did not recommend further diagnostic testing. Prisms in her glasses have not alleviated her symptoms. We discussed eye muscle surgery to repair strabismus. CPT 67410 OS Miguel Childs MD Deputy Bailiff [facility] [address] [place] [address], [address] [place] [address] Office: [phone] E-mail: [email or web address] This medical record reflects the history of present illness as obtained by myself in discussion with the patient. documented in this encounter Plan of Treatment Not on file documented as of this encounter Visit Diagnoses Diagnosis Exotropia, intermittent, monocular- Primary Intermittent exotropia, monocular Binocular vision disorder with diplopia Diplopia Cervical stenosis of spine Spinal stenosis in cervical region Depression, unspecified depression type Major depressive disorder, remission status unspecified, unspecified whether recurrent documented in this encounter Care Teams Plant Manager Relationship Specialty Start Date End Date Gadiel Zavala MD [address] [place] [address] PCP - General Family Practice 03/03/17 documented as of this encounter
--- OUTSIDE RECORDS SUMMARY | 2024-04-17 11:43 | XMS_ITS | Encounter Summary ---
Author Organization [facility] Address [address] [place] [address] Care Team Providers Care Ccnp Name Role Phone Gadiel Zavala MD Primary Care Provider [phone] Reason for Visit * Reason Onset Date Comments Lazy Eye 02/06/2021 Encounter Details Date Type Department Care Team (Late st Contact Info) Description 02/06/[address] [facility] [place] A [address] [place] [phone] Miguel Childs MD [address] [facility] [address] [facility] [place] [address] Lazy Eye Social History Tobacco Use Types Packs/Day Years [...] Telephone Encounter - Miguel Childs MD - 02/06/2021 12:34 PM CDT Post-op call. Feeling much better than yesterday. Double vision persists. Offered reassurance. documented in this encounter Plan of Treatment Not on file documented as of this encounter Visit Diagnoses Not on filedocumented in this encounter Care Teams Ccnp Relationship Specialty Start Date End Date Gadiel Zavala MD [address] [place] [address] PCP - General Family Practice 03/03/17 documented as of this encounter
--- OUTSIDE RECORDS SUMMARY | 2024-04-17 11:43 | XMS_ITS | Encounter Summary ---
Author Organization [facility] Address [address] [facility] Attn: Epic Prelude ADT [place] [address] Care Team Providers Care Fishing Manager Name Role Phone Gadiel Zavala MD Primary Care Provider [phone] Encounter Details Date Type Department Care Team (Latest Contact Info) Description 01/25/2021 Travel Social History Tobacco Use Types Packs/Day [...] have Coronavirus / COVID-19? No / Unsure 01/25/2021 2:18 PM CDT documented as of this encounter Plan of Treatment Not on file documented as of this encounter Visit Diagnoses Not on filedocumented in this encounter Care Teams Fishing Manager Relationship Specialty Start Date End Date Gadiel Zavala MD [address] [place] [address] PCP - General Family Practice 03/03/17 documented as of this encounter
--- OUTSIDE RECORDS SUMMARY | 2024-04-17 11:43 | XMS_ITS | Encounter Summary ---
Author Organization [facility] Address [address] [place] [address] Care Team Providers Care Pharmacy Affairs Assistant Name Role Phone Gadiel Zavala MD Primary Care Provider Reason for Visit * Reason Onset Date Comments Update 03/04/2021 Encounter Details Date Type Department Care Team (Late st Contact Info) Description 03/04/2021 Telephone [facility] Children's Cigar Brander Medical [place] A [address] [place] [address] [place] [phone] Miguel Childs MD [address] [facility] [address] [facility] [place] [address] Update Social History Tobacco Use Types Packs/Day Years [...] encounter Miscellaneous Notes * Telephone Encounter - Carolina Flores - 03/04/2021 12:57 PM CDT Patient called to give update. She thinks things are about the same. Maybe some improvement. Definitely still having double vision. documented in this encounter Plan of Treatment Not on file documented as of this encounter Visit Diagnoses Not on filedocumented in this encounter Care Teams Pharmacy Affairs Assistant Relationship Specialty Start Date End Date Gadiel Zavala MD [address] [place] [address] PCP - General Family Practice 03/03/17 documented as of this encounter
--- OUTSIDE RECORDS SUMMARY | 2024-04-17 11:43 | XMS_ITS | Encounter Summary ---
Author Organization [facility] Address [address] [place] [address] Care Team Providers Care Assembler Knife Name Role Phone Gadiel Zavala MD Primary Care Provider [phone] Reason for Visit * Reason Onset Date Comments Double Vision 05/05/2021 Encounter Details Date Type Department Care Team (Late st Contact Info) Description 05/05/2021 Telephone [facility] Children's Vice President Of Marketing Medical [place] A [address] [facility] [address] [place] [phone] Miguel Childs MD [address] [facility] [address] [place] [address] Double Vision Social History Tobacco [...] have Coronavirus / COVID-19? No / Unsure 04/08/2021 9:48 AM DOUBLER HELPER documented as of this encounter Miscellaneous Notes * Telephone Encounter - Miguel Childs MD - 05/05/2021 10:35 AM CST Called and discussed persistent double vision. Updated glasses improve acuity. Will try 2 prism diopter base out off OS. LER HELPER documented in this encounter Plan of Treatment Not on file documented as of this encounter Visit Diagnoses Not on filedocumented in this encounter Care Teams Assembler Knife Relationship Specialty Start Date End Date Gadiel Zavala MD [address] [place] [address] PCP - General Family Practice 03/03/17 documented as of this encounter
--- OUTSIDE RECORDS SUMMARY | 2024-04-17 11:43 | XMS_ITS | Encounter Summary ---
Author Organization [facility] Address [address] [place] [address] Care Team Providers Care Industrial Methods Consultant Name Role Phone Gadiel Zavala MD Primary Care Provider [phone] Reason for Visit * Reason Onset Date Comments Surgery Scheduling, Other 02/04/2021 Encounter Details Date Type Department Care Team (Late st Contact Info) Description 02/04/2021 Telephone [facility] Children's Electronic Funds Transfer Coordinator Medical [place] A [address] [place] [phone] Miguel Childs MD [address] [place] [address] Surgery Scheduling, Other Social History Tobacco Use Types Packs/Day Years [...] on filedocumented in this encounter Care Teams Industrial Methods Consultant Relationship Specialty Start Date End Date Gadiel Zavala MD [address] [place] [phone] PCP - General Family Practice 03/03/17 documented as of this encounter
--- OUTSIDE RECORDS SUMMARY | 2024-04-17 11:43 | XMS_ITS | Encounter Summary ---
Author Organization [facility] Address [address] [facility] Attn: Epic Prelude ADT [place] [address] Care Team Providers Care Program Manufacturing Leader Name Role Phone Gadiel Zavala MD Primary Care Provider [phone] Encounter Details Date Type Department Care Team (Latest Contact Info) Description 04/08/2021 Travel Social History Tobacco Use Types Packs/Day [...] COVID-19? No / Unsure 04/08/2021 9:48 AM SUPERVISOR ROUGH END documented as of this encounter Plan of Treatment Not on file documented as of this encounter Visit Diagnoses Not on filedocumented in this encounter Care Teams Program Manufacturing Leader Relationship Specialty Start Date End Date Gadiel Zavala MD [address] [place] [address] PCP - General Family Practice 03/03/17 documented as of this encounter
--- OUTSIDE RECORDS SUMMARY | 2024-04-17 11:43 | XMS_ITS | Encounter Summary ---
Author Organization [facility] Address [address] [place] [address] Care Team Providers Care Lunch Truck Operator Name Role Phone Gadiel Zavala MD Primary Care Provider [phone] Reason for Visit * Reason Comments Double Vision Encounter Details Date Type Department Care Team (Late st Contact Info) Description 04/08/2021 10:00 AM FRUIT CANNER Office Visit [facility] Children's Call Center Coordinator Medical [place] A [address] [place] [address] [place] [phone] Miguel Childs MD [address] [facility] [address] [facility] [place] [address] Binocular vision disorder with diplopia (Primary Dx) Social History Tobacco Use Types [...] COVID-19? No / Unsure 04/08/2021 9:48 AM FRUIT CANNER documented as of this encounter Progress Notes * Miguel Childs MD - 04/08/2021 10:10 AM CST Images from the original note were not included. PATIENT NAME: Kaitlin Bond : 1950 70 y.o. EXAM DATE: 04/08/2021 Referring Provider: Lucas Chief Complaint: Chief Complaint Patient presents with ??? 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 Duration of years. Occurring constantly. Treatments tried include glasses. Comments Still having double vision Got fresnel prism over right lens after last visit She says the prism helps some but not completely Wondering if double vision will ever go away History obtained from patient Review of Systems: [...] TUBAL LIGATION ??? KYPHOPLASTY, LUMBAR 2016 ??? [place] CERV SPINE FUSN,ANTER,BELOW C2 N/A 02/16/2017 CERVICAL DISCECTOMY FUSION 1 LEVEL ANTERIOR, C3-4 performed by Mylene Gutierrez MD at [facility] OR [facility] ??? [place] IMPLANT SPINAL NEUROSTIM/EQUIPMENT OPERATOR/LABORER N/A 11/16/2017 SPINAL CORD DORSAL COLUMN STIMULATOR REMOVAL performed by Mylene Gutierrez MD at [facility] OR [facility] ??? [place] STABISMUS SURG,TWO HORIZ MUSCLE Bilateral 02/05/2021 EYE MUSCLE REPAIR RECESSION RESECTION performed by Miguel Childs MD at [facility] OR [facility] Medications: Current Outpatient Medications on File [...] mouth daily. ??? naloxone (NARCAN) 4 mg/spray [place], Non-Aerosol EMERGENCY USE ONLY: Administer 1 spray [...] tablet Take 50 mcg by mouth daily buckle stapler. ??? atorvastatin (LIPITOR) 20 mg tablet Take [...] No family history on file. Social History: Ophthalmology Exam Base Eye Exam Visual Acuity (Snellen - Linear) Right Left Dist cc 20/40 - 20/40 - Correction: Glasses Pupils Pupils Right PERRL Left PERRL Visual Vega Left Right Full Full Extraocular Movement Right Left Full Full Neuro/Psych Oriented x3: Yes Mood/Affect: Anxious Edited by: Carolina Flores; Miguel Childs MD Additional Tests Stereo Lang: +3 No ID Edited by: Carolina Flores Strabismus Exam 0 0 0 0 0 0 0 0 E 2 0 0 0 0 0 0 0 0 S/P '21 BLR recess 6 Edited by: Miguel Childs [...] Childs MD Refraction Wearing Rx Sphere Cylinder [place] Add Horz Prism Right -1.00 +1.25 025 +2.50 2.0 out Left -0.50 +1.00 165 +2.50 2.0 out Manifest Refraction Sphere Cylinder [place] Add Right -0.50 +1.00 015 +3.00 Left -1.00 +2.00 150 +3.00 Final Rx Sphere Cylinder [place] Add Right -0.50 +1.00 015 +3.00 Left -1.00 +2.00 150 +3.00 Type: PAL Expiration Date: 04/09/2022 Edited by: Carolina Flores; Miguel Childs MD Testing/Data: Pre-Op Today ASSESSMENT and PLAN: ICD-10-CM ICD-9-CM 1. 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 Fortunately, her ocular alignment is much improved. I updated her refractive correction and did not include prismatic correction. Hopefully, her symptoms will subside. Miguel Childs MD Business Objects Consultant [facility] [address] [place] [address], [address] [place] [address] Office: [phone] E-mail: [email or web address] This medical record reflects the history of present illness as obtained by myself in discussion with the patient. T CANNER documented in this encounter Plan of Treatment Not on file documented as of this encounter Visit Diagnoses Diagnosis Binocular vision disorder with diplopia- Primary Diplopia documented in this encounter Care Teams Lunch Truck Operator Relationship Specialty Start Date End Date Gadiel Zavala MD [address] [place] [phone] PCP - General Family Practice 03/03/17 documented as of this encounter
--- OUTSIDE RECORDS SUMMARY | 2024-04-17 11:43 | XMS_ITS | Encounter Summary ---
Author Organization [facility] Address [address] [facility] Attn: Epic Prelude ADT [place] [address] Care Team Providers Care Shoe Lay Out Planner Name Role Phone Gadiel Zavala MD Primary Care Provider Encounter Details Date Type Department Care Team (Latest Contact Info) Description 12/24/2020 Travel Social History Tobacco Use Types Packs/Day [...] on filedocumented in this encounter Care Teams Shoe Lay Out Planner Relationship Specialty Start Date End Date Gadiel Zavala MD [address] [place] [address] PCP - General Family Practice 03/03/17 documented as of this encounter
--- OUTSIDE RECORDS SUMMARY | 2024-04-17 11:43 | XMS_ITS | Encounter Summary ---
Author Organization [facility] Address [address] [place] [address] Care Team Providers Care Equipment Services Associate Name Role Phone Gadiel Zavala MD Primary Care Provider [phone] Reason for Visit * Reason Comments Post-op Visit Encounter Details Date Type Department Care Team (Late st Contact Info) Description 02/12/2021 11:40 AM CDT Office Visit [facility] Children's Emulsion Operator Medical [place] A [address] [place] [phone] Miguel Childs MD [address] [facility] [address] [facility] [place] [address] Binocular vision disorder with diplopia (Primary Dx); Recurrent major depressive disorder, in partial remission [...] have Coronavirus / COVID-19? No / Unsure 02/12/2021 11:33 AM CDT documented as of this encounter Progress Notes * Miguel Childs MD - 02/12/2021 11:54 AM CDT Images from the original note were not included. PATIENT NAME: Kaitlin Bond : 1950 70 y.o. EXAM DATE: 02/12/2021 Referring Provider: Lucas Chief Complaint: Chief Complaint Patient presents with ??? Post-op Visit History of Present Illness: HPI Post-op Visit Level of pain is Level of pain is moderate. Patient did not experience nausea/vomiting. Patient noted moderate headaches. Comments (-) N/V Pt notes horizontal diplopia - started out buy seeing 4 - has been stable per pt Dizziness intermittently throughout the day Wakes up with eyes matted - this am could not open OS for about a half hour Using systane 8x per day - helps slightly with irritation Takes extra strength tylenol BID for pain Some pain OS when looking to the left History provided by pt Review of Systems: ROS Positive for: Eyes (diplopia) Negative for: Constitutional, Gastrointestinal, Neurological, Skin, Genitourinary, [...] TUBAL LIGATION ??? KYPHOPLASTY, LUMBAR 2016 ??? [place] CERV SPINE FUSN,ANTER,BELOW C2 N/A 02/16/2017 CERVICAL DISCECTOMY FUSION 1 LEVEL ANTERIOR, C3-4 performed by Mylene Gutierrez MD at [facility] OR [facility] ??? [place] IMPLANT SPINAL NEUROSTIM/GEOPHYSICAL LABORATORY DIRECTOR N/A 11/16/2017 SPINAL CORD DORSAL COLUMN STIMULATOR REMOVAL performed by Mylene Gutierrez MD at [facility] ??? [place] STABISMUS SURG,TWO HORIZ MUSCLE Bilateral 02/05/2021 EYE MUSCLE REPAIR RECESSION RESECTION performed by Miguel Childs MD at [facility] OR [facility] Medications: Current Outpatient Medications on File Prior [...] mouth daily. ??? naloxone (NARCAN) 4 mg/spray [place], Non-Aerosol EMERGENCY USE ONLY: Administer 1 spray [...] tablet Take 50 mcg by mouth daily offset machine operator. ??? atorvastatin (LIPITOR) 20 mg tablet Take [...] Right Left Dist cc 20/30 +2 20/20 -2 Correction: Glasses Pupils Dark Light APD Right 5 3 none Left 5 3 none Neuro/Psych Oriented x3: Yes Mood/Affect: Normal Edited by: Amari Do; Miguel Childs MD Additional Tests Stereo Lan/3 Edited by: Amari Do Strabismus Exam Method: Alternate cover Correction: cc Distance Near Near +3DS N Bifocals Ortho 0 0 0 LET 14 0 0 0 -1 0 LET 14 0 -1 0 0 0 LET 14 0 0 0 With prism offset - tried 14 MEEK, 16 MEEK and 18 MEEK - pt feels 18 makes letter closest together. All 3prisms make TV go from 2 to 1 screen - unable to fuse the letter D on the screen S/P '21 BLR recess 6 Edited by: Amari Do; Miguel Childs MD Slit Lamp and Fundus Exam External Exam Right Left External Normal Normal Slit Lamp Exam Right Left Lids/Lashes Normal Normal Conjunctiva/Sclera 2+ Subconjunctival hemorrhage 2+ Subconjunctival hemorrhage Cornea Krukenberg's spindle, Clear corneal incision Krukenberg's spindle, Clear corneal incision Anterior Chamber Deep and quiet Deep and quiet Iris Round and reactive Round and reactive Lens Posterior chamber intraocular lens Posterior chamber intraocular lens Vitreous Normal Normal Fundus Exam Right Left Disc Normal Normal C/D Ratio 0.35 0.35 Macula Normal Normal Vessels Normal Normal Edited by: Miguel Childs MD Testing/Data: Pre-Op Today ASSESSMENT and PLAN: ICD-10-CM ICD-9-CM 1. 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 Hopefully, she will feel better. The wounds are healing well without infection. She experiences diplopia and her ocular alignment has shifted to esotropia, especially at distant fixation. I applied Blenderm to her right spectacle lens for relief. I asked to hear from her in 1-2 weeks. Miguel Childs MD Plasterer Maintenance [facility] [address] [place] [address], [address] [place] [address] Office: [phone] E-mail: [email or web address] This medical record reflects the history of present illness as obtained by myself in discussion with the patient. documented in this encounter Plan of Treatment Not on file documented as of this encounter Visit Diagnoses Diagnosis Binocular vision disorder with diplopia- Primary Diplopia Recurrent major depressive disorder, in partial remission documented in this encounter Care Teams Equipment Services Associate Relationship Specialty Start Date End Date Gadiel Zavala MD [address] [place] [address] PCP - General Family Practice 03/03/17 documented as of this encounter
--- OUTSIDE RECORDS SUMMARY | 2024-04-17 11:43 | XMS_ITS | Encounter Summary ---
Author Organization [facility] Address [address] [place] [address] Care Team Providers Care Application Support Consultant Name Role Phone Gadiel Zavala MD Primary Care Provider [phone] Reason for Visit * Reason Onset Date Comments Double Vision 02/08/2021 Encounter Details Date Type Department Care Team (Late st Contact Info) Description 02/08/2021 Telephone [facility] Children's Rehabilitator Medical [place] A [address] [place] [address] [place] [phone] Miguel Childs MD [address] [facility] [address] [place] [address] Double Vision Social History Tobacco [...] Telephone Encounter - Miguel Childs MD - 02/08/2021 1:04 PM CDT Called to discuss recovery. She feels sutures and experiences double vision. Advised to use topicallubricant and occlude either eye. documented in this encounter Plan of Treatment Not on file documented as of this encounter Visit Diagnoses Not on filedocumented in this encounter Care Teams Application Support Consultant Relationship Specialty Start Date End Date Gadiel Zavala MD [address] [place] [address] PCP - General Family Practice 03/03/17 documented as of this encounter
--- OUTSIDE RECORDS SUMMARY | 2024-04-17 11:43 | XMS_ITS | Encounter Summary ---
Author Organization [facility] Address [address] [place] [address] Care Team Providers Care Manager Social Name Role Phone Gadiel Zavala MD Primary Care Provider Reason for Visit * Reason Onset Date Comments Results 12/15/2020 Encounter Details Date Type Department Care Team (Late st Contact Info) Description 12/15/2020 Telephone [facility] Children's Quality Control Projectionist Medical [place] A [address] [place] [address] [place] [phone] Miguel Childs MD [address] [facility] [place] [address] Results Social History Tobacco Use Types Packs/Day Years [...] have Coronavirus / COVID-19? No / Unsure 11/27/2020 11:02 AM CDT documented as of this encounter Miscellaneous Notes * Telephone Encounter - Miguel Childs MD - 12/15/2020 3:07 PM CDT Discussed results of brain MRI and Ach receptor antibody. She reports ptosis in morning. Will discuss further at office visit. documented in this encounter Plan of Treatment Not on file documented as of this encounter Visit Diagnoses Not on filedocumented in this encounter Care Teams Manager Social Relationship Specialty Start Date End Date Gadiel Zavala MD [address] [place] [address] PCP - General Family Practice 03/03/17 documented as of this encounter
--- OUTSIDE RECORDS SUMMARY | 2024-04-17 11:43 | XMS_ITS | Encounter Summary ---
Author Organization [facility] Address [address] [facility] Attn: Epic Prelude ADT [place] [address] Care Team Providers Care Rn Nursery Name Role Phone Gadiel Zavala MD Primary Care Provider [phone] Encounter Details Date Type Department Care Team (Latest Contact Info) Description 02/05/2021 Travel Social History Tobacco Use Types Packs/Day [...] on filedocumented in this encounter Care Teams Rn Nursery Relationship Specialty Start Date End Date Gadiel Zavala MD [address] [place] [address] PCP - General Family Practice 03/03/17 documented as of this encounter
--- OUTSIDE RECORDS SUMMARY | 2024-04-17 11:43 | XMS_ITS | Encounter Summary ---
Author Organization [facility] Address [address] [place] [address] Care Team Providers Care Compressed Gas Tester Name Role Phone Gadiel Zavala MD Primary Care Provider Encounter Details Date Type Department Care Team (Late st Contact Info) Description 01/27/2021 Prep for Surgery [facility] Children's Control Clerk Auditing Medical [place] [address] [address] [facility] [address] [place] [phone] Miguel Childs MD [address] [facility] [address] [place] [address] Exotropia (Primary Dx) Social History Tobacco Use Types [...] as of this encounter Visit Diagnoses Diagnosis Exotropia- Primary Exotropia, unspecified documented in this encounter Care Teams Compressed Gas Tester Relationship Specialty Start Date End Date Gadiel Zavala MD [address] [place] [phone] PCP - General Family Practice 03/03/17 documented as of this encounter
--- OUTSIDE RECORDS SUMMARY | 2024-04-17 11:43 | XMS_ITS | Encounter Summary ---
Author Organization [facility] Address [address] [place] [address] Care Team Providers Care Associate Name Role Phone Gadiel Zavala MD Primary Care Provider [phone] Reason for Visit * Reason Onset Date Comments Double Vision 03/22/2021 Encounter Details Date Type Department Care Team (Late st Contact Info) Description 03/22/2021 Telephone [facility] Children's Smooth Plater Medical [place] A [address] [place] [address] Amari Do CO [address] [place] [address] Double Vision Social History Tobacco Use Types [...] encounter Miscellaneous Notes * Telephone Encounter - Amari Do CO - 03/22/2021 2:40 PM CST Patient wanting to try prism in glasses. Called [facility] and they do not carry Fresnel. Pt to come to [facility] to get fitted. Spoke with staff to let them know. She will need a 8BO OD. LING MACHINE TENDER documented in this encounter Plan of Treatment Not on file documented as of this encounter Visit Diagnoses Not on filedocumented in this encounter Care Teams Associate Relationship Specialty Start Date End Date Gadiel Zavala MD [facility] [place] [address] PCP - General Family Practice 03/03/17 documented as of this encounter
--- OUTSIDE RECORDS SUMMARY | 2024-04-17 11:43 | XMS_ITS | Encounter Summary ---
Author Organization [facility] Address [address] [place] [address] Care Team Providers Care Exchange Teller Name Role Phone Gadiel Zavala MD Primary Care Provider [phone] Encounter Details Date Type Department Care Team (Latest Contact Info) Description 01/25/2021 1:54 PM CDT - 01/25/2021 11:59 PM CDT Hospital Encounter [facility] [address] [place] [address] Miguel Childs MD [address] [facility] [address] [facility] [place] [address] Discharge Disposition: Home or Self Care Anesthesia Record Procedure Summary Procedure Name Responsible Anesthesiologist Anesthesia Start Time Anesthesia Stop Time EYE MUSCLE REPAIR RECESSION RESECTION (Bilateral: Eye) Eloina Jiménez MD 02/05/21 1255 02/05/21 1425 Events Date Time Event Comment 02/05/2021 1129 1147 AN Equip Check Anesthesia eq uipment [...] and Graph timeline. 1425 An Stop Meds * Agents No agents on file. * Blood No blood administrations on file. [...] PM CDT documented as of this encounter Last Filed Vital Signs Vital Sign Reading Time Taken Comments Blood Pressure 119/75 01/25/2021 2:19 PM CDT Pulse 56 01/25/2021 2:19 PM CDT Temperature - - Respiratory Rate - - Oxygen Saturation 99% 01/25/2021 2:19 PM CDT Inhaled Oxygen Concentration - - Weight 57.6 kg (127 lb) 01/25/2021 2:19 PM CDT i n w/c Height 162.6 cm (5' 4 ) 01/25/2021 2:19 PM CDT Body Mass Index 21.8 01/25/2021 2:19 PM CDT documented in this encounter Medications at Time of Discharge Medication Sig Dispensed Refills Start Date End Date FLAXSEED OIL ORAL Take by mouth. OTHER Prevagen amLODIPine (NORVASC) 10 mg tablet Take 10 mg by mouth daily. oxybutynin chloride (DITROPAN) 5 mg tablet Take 5 mg by mouth 2 times daily. linaCLOtide 72 mcg capsule Take 72 mcg by mouth daily before breakfast. vitamin B complex (B COMPLEX 1 ORAL) Take by mouth. metoprolol succinate (TOPROL XL) 100 mg Extended Release 24 hour tablet Take 100 mg by mouth daily. celecoxib 200 mg capsule Take 200 mg by mouth 2 times daily. docusate sodium (COLACE) 100 mg capsule Take 1 Capsule (100 mg) by mouth 2 times daily. 03/14/2017 omeprazole (PriLOSEC) 40 mg Capsule, Delayed Release(E.C.) Take 40 mg by mouth 2 times daily. levothyroxine 50 mcg tablet Take 50 mcg by mouth daily vocal teacher. atorvastatin (LIPITOR) 20 mg tablet Take 20 mg by mouth daily. cyanocobalamin (VITAMIN B-12) 100 mcg tablet Take 3,000 mcg by mouth daily . calcium carbonate 600 mg-vitamin D3 20 mcg (800 unit) chewable tablet Take by mouth daily. eszopiclone 3 mg tablet Take 5 mg by mouth nightly as needed for Insomnia. meloxicam (MOBIC) 15 mg tablet Take 15 mg by mouth daily. naloxone (NARCAN) 4 mg/spray [place], Non-Aerosol EMERGENCY USE ONLY: Administer 1 spray (4 mg) in one nostril one time. May repeat in alternating nostrils every 2-3 min until responsive or EMS arrives. 2 Each 3 09/08/2020 oxyCODONE-acetaminophe n (PERCOCET) 5-325 mg tablet Take 1-2 Tablets by mouth every 4 hours as needed for Pain, Moderate. Max Daily Amount: 12 Tablets 20 Tablet 11/16/2017 sennosides-docusate sodium (SENNA-S) 8.6-50 mg tablet Take 1 Tablet by mouth daily at bedtime. 03/14/2017 melatonin 3 mg Tablet Take 1 Tablet (3 mg) by mouth daily at bedtime. 03/14/2017 methocarbamol (ROBAXIN) 500 mg tablet Take 1 Tablet (500 mg) by mouth 3 times daily as needed for Spasm Contact PCP for refills. 90 Tablet 03/14/2017 acetaminophen (TYLENOL) 325 mg tablet Take 2 Tablets (650 mg) by mouth every 4 hours as needed for Pain. 03/01/2017 lisinopril (PRINIVIL) 40 mg tablet Take 40 mg by mouth daily at bedtime. FLUoxetine (PROzac) 40 mg capsule Take 40 mg by mouth daily at bedtime. DULoxetine (CYMBALTA) 60 mg Capsule, Delayed Release(E.C.) Take 60 mg by mouth daily at bedtime. documented as of this encounter OR Notes * Anesthesia PAT Evaluation - Dale Garza MD - 01/25/2021 2:00 PM CDT Pre-Procedure Anesthesiology Consultation and Evaluation (PACE) Service 01/25/2021 2:47 PM Name: Kaitlin Bond Age: 70 y.o. Sex: female CSN: [id number] Procedure: Procedure(s): EYE MUSCLE REPAIR RECESSION RESECTION Surgeons/Assistants: Surgeon(s) and Role: * Miguel Childs MD - Primary Allergies Allergen Reactions ??? Gadolinium-Containing Contrast Media Hives ??? Gadopentetate Dimeglumine Hives ??? Latex Other (See Comments) Pt states no. Is fine with gloves. Only allergy is to adhesive. ??? Adhesive Rash ??? Adhesive Tape-Silicones Rash Pre-Surgery Instructions: Medication Instructions ??? FLAXSEED OIL ORAL Stop taking 1 week prior to surgery ??? Prevagen Stop taking 1 week prior to surgery ??? amLODIPine (NORVASC) 10 mg tablet Take morning of surgery with sip of water ??? oxybutynin chloride (DITROPAN) 5 mg tablet Take morning of surgery with sip of water ??? linaCLOtide (Linzess) 72 mcg Capsule capsule Continue taking as prescribed ??? vitamin B complex (B COMPLEX 1 ORAL) Stop taking 1 week prior to surgery. ??? metoprolol succinate (TOPROL XL) 100 mg Extended Release 24 hour tablet Take morning of surgerywith sip of water ??? celecoxib (CeleBREX) 200 mg capsule Stop taking 1 week prior to surgery ??? docusate sodium (COLACE) 100 mg capsule Continue taking as prescribed ??? omeprazole (PriLOSEC) 40 mg Capsule, Delayed Release(E.C.) Take morning of surgery with sip of water ??? levothyroxine 50 mcg tablet Take morning of surgery with sip of water ??? atorvastatin (LIPITOR) 20 mg tablet Take morning of surgery with sip of water ??? cyanocobalamin (VITAMIN B-12) 100 mcg tablet Stop taking 1 week prior to surgery. ??? calcium-cholecalciferol, D3, (CALTRATE 600 + D) 600 mg (1,500 mg)-800 unit Tablet, Chewable tablet Stop taking 1 week prior to surgery ??? eszopiclone (LUNESTA) 3 mg Tablet Continue taking as prescribed Patient Active Problem List Diagnosis Date Noted ??? Exotropia, intermittent, monocular 12/28/2020 ??? Binocular vision disorder with diplopia 12/28/2020 ??? Cervical myelopathy ??? Fall ??? Essential hypertension 02/28/2017 ??? Depression 02/28/2017 ??? Cervical stenosis of spine 02/16/2017 Past Medical History: Diagnosis Date ??? Anxiety [...] disease) Past Surgical History: Procedure Laterality Date ??? CATARACT EXTRACTION ??? HX HYSTERECTOMY ??? HX SPINAL SURGERY lumbar fusion 2013, cervical 1991 ??? HX TUBAL LIGATION ??? KYPHOPLASTY, LUMBAR 2017 ??? TN CERV SPINE FUSN,ANTER,BELOW C2 N/A 02/16/2017 CERVICAL DISCECTOMY FUSION 1 LEVEL ANTERIOR, C3-4 performed by Mylene Gutierrez MD at [facility] OR [facility] ??? TN IMPLANT SPINAL NEUROSTIM/WINTER INTERN N/A 11/16/2017 SPINAL CORD DORSAL COLUMN STIMULATOR REMOVAL performed by Mylene Gutierrez MD at [facility] OR [facility] Social History Tobacco Use ??? Smoking status: Former Smoker Packs/day: 0.25 Years: 5.00 Pack years: 1.25 Types: Cigarettes Quit date: 1988 Years since quittin.7 ??? Smokeless tobacco: Never Used ??? Tobacco comment: 4 per day Substance Use Topics ??? Alcohol use: Yes Comment: 1-2 times per month 1 drink No family history on file. Previous Anesthesia Problems/Concerns: Post-operative nausea & vomiting (PONV) and I am slow to go to sleep and slow to wake up... History of PONV Yes Review of Systems Cardiovascular: negative for chest pain, chest pressure/discomfort, exertional chest pressure/discomfort, palpitations, shortness of breath/dyspnea. Exercise Tolerance: Patient is able to go for slow short walks, can do hills and 2+ flights of steps... with assistance without chest pain or SOB.. more limited by chronic neck nd back pain Gastrointestinal: negative. Genitourinary:negative. Respiratory: negative. ROSETTA -no Snores- no Social History Tobacco Use Smoking Status Former Smoker ??? Packs/day: 0.25 ??? Years: 5.00 ??? Pack years: 1.25 ??? Types: Cigarettes ??? Quit date: 1988 ??? Years since quittin.7 Smokeless Tobacco Never Used Tobacco Comment 4 per day Musculoskeletal: positive for arthralgias, stiff joints, neck pain, back pain and h/o PLSF Neurological: positive for exotropia Endocrine hypothyroidism No results found for: HGBA1C, [id number] Renal:negative Hematology/Oncology:negative Lab Results Component Value Date/Time HGB 12.0 03/14/2017 05:30 AM Lab Results Component Value Date/Time HCT 35.9 03/14/2017 05:30 AM PHYSICAL EXAM BP 119/75 (BP Location: Right arm, Patient Position (BP): Sitting) Pulse (!) 56 Ht 5' 4 (1.626m) Wt 57.6 kg (127 lb) Comment: in w/c SpO2 99% No BMI 21.80 kg/m?? Weight: Weight: 57.6 kg (127 lb) (in w/c) (01/25/21 1419) Height: Ht Readings from Last 1 Encounters: 01/25/21 5' 4 (1.626 m) BMI: Body mass index is 21.8 kg/m??. General Appearance: Alert, oriented, no acute distress Airway: normal range of motion; Airway Class: II (soft palate, uvula, fauces visible); Special Considerations None Dentition: Normal good Lungs: clear to auscultation bilaterally, normal respiratory effort Heart: regular rate and rhythm, S1, S2 normal, no murmur, click, rub or gallop Neuro: alert, oriented x 3, no defects noted in general exam. Extremities: extremities normal, atraumatic, no cyanosis or edema LABS Lab Results Component Value Date/Time WBC 6.8 03/14/2017 05:30 AM HEMOGLOBIN 12.0 03/14/2017 05:30 AM HEMATOCRIT 35.9 03/14/2017 05:30 AM PLATELETS 413 (H) 03/14/2017 05:30 AM MCV 88.9 03/14/2017 05:30 AM Lab Results Component Value Date/Time SODIUM 133 (L) 11/07/2017 02:27 PM POTASSIUM 4.3 11/07/2017 02:27 PM CHLORIDE 92 (L) 11/07/2017 02:27 PM CO2 27 11/07/2017 02:27 PM CALCIUM 9.8 11/07/2017 02:27 PM BUN 12 11/07/2017 02:27 PM CREATININE 0.60 11/07/2017 02:27 PM GLUCOSE 84 11/07/2017 02:27 PM ANION GAP 14 11/07/2017 02:27 PM BUN/CREAT RATIO NOT APPLICABLE 03/17/2017 05:07 AM No results found for: INR, PT, PROTIMEPOC No results found for: HCGURPOC, HCGQUALUR, HCGQUAL, HCGQUANT, HCGINTACT EKG: EKG not indicated today No cardiac clinical risk factors such as: CHF, CAD, DM, CKD, CVA. Functional capacity > 4 METs No clinical cardiac sxs Other Studies/Considerations: Cardiac studies 10/2017 Anesthesia record : Type: ETT, Oral (very easy atraumatic glidescope intubation; neck held in neutral position; no manipulation); Cuff Pressure: minimal leak technique, minimal occluding volume, cuff inflated; Size: 6; Site: mouth; Attempts: 1; FOV: I; cm: 21; Device: Video Laryngoscope, Curved Blade; Blade: 3; Secured: secured with tape; Verification: Auscultated bilateral breath sounds, Equal chest movement, Continuous waveform capnography Risks/Alternatives discussed. Questions solicited and answered. Yes Postop pain management discussed yes Smoking/Tobacco Counseling: None Recommendations:None Attestations: I obtained, updated or reviewed the patient's current medications including dosage, frequency, and route of administration. This information was obtained directly from the patient or teleservices representative or caregiver or another available healthcare resource and updated in [employer] EMR. Patient screened for tobacco use and identified as a Non-User of tobacco. REPORT AND NECESSARY FOLLOW-UP History and physical performed in [facility]; tests (ECG, blood work) reviewed. Abnormal Results Found: no Further Testing or Evaluation Required: no Final [facility] Review: May proceed with procedure/surgery: yes Stop bang score is *2 Based on a STOP-BANG score of 0-2 the patient is deemed low risk for ROSETTA and there is no follow-up,education nor interventions needed. Brice Aguilera PA-C 2:47 PM 01/25/2021 IDale MD, attest that I have reviewed and agree with the Advanced Practitioner's note - including the history, documented findings, assessment, and plan as documented except where noted. Dale Garza M.D. Anesthesiologist Zone Phone: [phone] * Simran-OP - Agnes Rodriguez RN - 01/25/2021 2:00 PM CDT Images from the original note were not included. ? [facility] Routine Orders Protocol [facility] Approved by: [facility] - Medical Executive Committee Approval Date: 07/16/2020 ORDERS ARE ENTERED ???PER PROTOCOL?? Enter the protocol in the patient's electronic health record using smart phrase: .paceroutineordersprotocol PACE/Anesthesiology Care Screening for Procedures ??? Laboratory exams obtained within 3 months prior to surgery are acceptable if normal, or at baseline. ??? Hematocrit/Hemoglobin ([id number]) ??? Cases of expected major blood loss in patients of any age as evidenced by an order for Type andCross or Type and Screen. ??? PT/INR (Lab 320) should be drawn day of surgery ??? Patients taking Warfarin (Coumadin) or who have had Warfarin (Coumadin) discontinued within prior 7 days ??? BMP (Lab15) ??? Patients with: ??? Diabetes ??? Renal disease ??? Dialysis patients: Day of Surgery; If dialysis on day of surgery, Post-dialysis ??? Patients taking the following medications: - Digoxin - Diuretics - Steroids ??? BUN (Nsl435)/ Serum Cr (Lab66) ??? When use of intravenous contrast dye is planned ??? Liver function panel (Lab20) in any patient with: ??? Jaundice, or active liver disease ??? HgbA1c: If result not available from within 3 months of PACE phone or in- person contact, for patients that meet the following conditions: ??? Planned operation is an orthopedic or neurosurgical implant, AND ? ? Either a hx of diabetes or a BMI >35 ??? EKG (EKG) 12 lead EKG- obtained within the last 3 months for the following: ??? Known cardiac disease (CAD, CHF, moderate or worse valvular disease ??? Patients undergoing cardiac, thoracic, or vascular surgery ??? CIED ??? Cardiac Symptoms: Angina, dysrhythmia, palpitations, SOB, PND, S3 ??? Moderate or greater risk surgery with any of the following: Stroke/TIA/CVD, PAD/PVD, CKD (Cr>2), DM, or Drugs or toxins that alter conduction (e.g., digoxin, cocaine, MAOIs, antiarrhythmics, antipsychotics, TCAs) Blood Bank ; For surgical procedures, prepare blood per surgical Blood Bank process unless additional blood orblood products have been ordered by the provider, then follow provider order. *Additional testing maybe indicated based upon patient co-morbidities and planned procedure. Medication Orders ??? Unless otherwise ordered by a member of the [facility] Anesthesiology Staff. 1. STOP a. Seven (7) DAYS PRIOR TO SURGERY: the use of all vitamins, herbal supplements, and other alternative substances. b. Seven (7) DAYS PRIOR TO SURGERY: the use of any UNPRESCRIBED Aspirin, Excedrin and NSAIDs which include Motrin, Ibuprofen, Aleve, and Naprosyn. c. 24 HOURS PRIOR TO PLANNED ARRIVAL AT [facility]: use of angiotensin-converting enzyme ([place]STLEY) inhibitorand angiotensin receptor ana laura (ARB). 2. CONTINUE - on usual schedule and take medication day of surgery with sips of water to swallow a. Aspirin and NSAIDS unless specifically instructed by surgeon to discontinue. b. All prescription medicines on routine schedule as prescribed, unless instructed otherwise. * Simran-OP - Agnes Rodriguez RN - 01/25/2021 2:00 PM CDT [facility] Pre-Procedure Instructions [facility] Name: Kaitlin Bond Age: 70 y.o. Please report to the: [facility] Date of Procedure: 02/05/21 Date of COVID Test: TO BE DONE [place] ON 02[place]01[place]21- NEEDS TO BE PCR TESTING, HAVE RESULTS FAXED TO SURGEON'S OFFICE [phone] AND BRING HARD COPY ON DAY OF SURGERY. Arrive at the time your surgeon's office has instructed. You will receive a call from them 2-4 days prior to your surgery with your arrival time. The decision whether to stay overnight or go home will be made by the attending surgeon. PLEASE NOTIFY your surgeon promptly if you begin to feel ill prior to your surgery. A cold, sore throat, fever, flu or covid symptoms may require postponing the surgery to another date for your safety. Please follow these important instructions PRE-PROCEDURE DIETARY INSTRUCTIONS Follow your surgeon's instructions regarding oral intake prior to your scheduled procedure. If no specific instructions were given from your surgeon's office; below are the guidelines from the anesthesia department: Based on your health history and/or scheduled procedure, the following pre- procedure dietary instructions should be followed: Strict NPO ?? Do not eat food or drink liquids after midnight prior to your procedure. ?? Oral Hygiene: Patients are encouraged to brush teeth, without swallowing, on the day of the procedure. WITHIN 24 HOURS PRIOR TO SURGERY ?? SHOWER AND SHAMPOO the evening before and morning of surgery. If instructed to do so, please follow the directions on the provided soap or antibacterial soap. ?? DO NOT SHAVE near the surgical area for at least 24 hours prior. ?? After showering the morning of surgery, DO NOT APPLY body lotions, deodorants, colognes, lipstick, make-up, hairspray, mousse, gel, or powder. ?? DO NOT WEAR JEWELRY (rings, earrings, and body piercings), wigs, or hair pieces to the hospital. ?? SMOKING AND USE OF TOBACCO PRODUCTS: We recommend patients abstain from smoking for as long as possible before and after surgery, but even quitting for a brief period is still beneficial. DO NOT SMOKE OR USE TOBACCO PRODUCTS on the day of your procedure. DAY OF SURGERY INSTRUCTIONS ?? YOU WILL NEED A RESPONSIBLE ADULT FAMILY MEMBER OR FRIEND WITH YOU UPON DISCHARGE. YOUR SURGERY MAY BE CANCELLED IF YOU DO NOT HAVE A RESPONSIBLE ADULT TO TAKE YOU HOME. It is highly suggested youhave a responsible adult with you overnight after receiving anesthesia. ?? WEAR comfortable, loose fitting clothes to the hospital that will fit over dressings after your surgery. ?? WEAR GLASSES instead of contact lenses to the hospital; bring a case if possible for glasses, dentures, and hearing aids as you will be asked to remove these items before your surgery. ?? BRING your insurance cards and inventory associate and driver's license or photo ID. DO NOT BRING VALUABLES or large amounts of melgar with you to the hospital. ?? BRING any medical devices you need to the hospital, including remotes for stimulators, CPAP, BIPAP, or WOUND VAC machines. ?? Surgical times are estimates and can vary depending on numerous factors. ?? Expect a minimum post-op recovery of 1 hour. The medical staff will provide updates to family and/or friends as appropriate. ?? For surgical procedures, patient may be allowed two adult visitors. Special considerations may be allowed for pediatric patients under the age of 18 years. ?? Patient and any permitted visitor should arrive to the facility with a mask. If arriving to the facility without a mask, one will be provided. Special considerations may be allowed for pediatric patients under 2 years of age. ?? Patient and visitor will go through facility entry screening. ?? Patient will wear a mask from the time they enter the facility and will remain in a mask until they leave the facility. During your hospital stay you will receive a personal passcode to help protect your health information. This will be a number that you may share with anyone you choose to receive your protected health information (PHI). Family and friends will need to ask for you by name and use the passcode beforeyour care team can share information, either in person or by phone. Please ask those who have your passcode to protect it. Obstructive Sleep Apnea Obstructive sleep apnea is a common and serious sleep disorder that causes you to stop breathing during sleep. The airway repeatedly becomes blocked, limiting the amount of air that reaches your lungs. When this happens, you may snore loudly or make choking noises as you try to breathe. Your brain and body becomes oxygen deprived and you may wake up. This may happen a few times a night, or in more severe cases, several hundred times a night. Sleep apnea can make you wake up in the morning feeling tired or unrefreshed even though you have had a full night of sleep. During the day, you may feel fatigued, have difficulty concentrating or you may even unintentionally fall asleep. This is because your body is waking up numerous times throughout the night, even though you might not be conscious of each awakening. The lack of oxygen your body receives can have negative long-term consequences for your health. This includes: ?? High blood pressure ?? Heart disease including heart attack, abnormal heart rhythms and heart failure ?? Stroke ?? Pre-diabetes and diabetes ?? Depression, memory problems ?? Drowsy driving and car accidents You were screened for Obstructive Sleep Apnea (ROSETTA) using the STOP-BANG scale. Sleep Apnea may impact your health during and after your anesthesia. Just as importantly, undiagnosed or untreated ROSETTA can have a negative impact on your overall health. Your screening indicates that you are: 0-2 at??low??risk for ROSETTA.?? We don't feel that you need to do anything based on this score but encourage you to talk to your primary care provider if you have any questions about the screening tool or ROSETTA. ADVANCED PLANNING FOR MEDICATION USE CURRENT MEDICATION LIST Pre-Surgery Instructions: Medication Instructions ??? FLAXSEED OIL ORAL Stop taking 1 week prior to surgery ??? Prevagen Stop taking 1 week prior to surgery ??? amLODIPine (NORVASC) 10 mg tablet Take morning of surgery with sip of water ??? oxybutynin chloride (DITROPAN) 5 mg tablet Take morning of surgery with sip of water ??? linaCLOtide (Linzess) 72 mcg Capsule capsule Continue taking as prescribed ??? vitamin B complex (B COMPLEX 1 ORAL) Stop taking 1 week prior to surgery. ??? metoprolol succinate (TOPROL XL) 100 mg Extended Release 24 hour tablet Take morning of surgerywith sip of water ??? celecoxib (CeleBREX) 200 mg capsule Stop taking 1 week prior to surgery ??? docusate sodium (COLACE) 100 mg capsule Continue taking as prescribed ??? omeprazole (PriLOSEC) 40 mg Capsule, Delayed Release(E.C.) Take morning of surgery with sip of water ??? levothyroxine 50 mcg tablet Take morning of surgery with sip of water ??? atorvastatin (LIPITOR) 20 mg tablet Take morning of surgery with sip of water ??? cyanocobalamin (VITAMIN B-12) 100 mcg tablet Stop taking 1 week prior to surgery. ??? calcium-cholecalciferol, D3, (CALTRATE 600 + D) 600 mg (1,500 mg)-800 unit Tablet, Chewable tablet Stop taking 1 week prior to surgery ??? eszopiclone (LUNESTA) 3 mg Tablet Continue taking as prescribed FAQs about Surgical Site Infections What is a Surgical Site Infection (SSI)? A surgical site infection is an infection that occurs after a surgery in the part of the body wherethe surgery took place. Most patients who have surgery do not develop an infection. However, infections develop in about 1 to 3 out of every 100 patients who have surgery. Some of the common symptomsof a surgical site infection are: ??? Redness and pain around the area where you had surgery ??? Drainage of cloudy fluid from your surgical wound ??? Fever Can SSI be treated? Yes. Most surgical site infections can be treated with antibiotics. The antibiotic given to you depends on the bacteria (germs) causing the infection. Sometimes patients with SSI also need another surgery to treat infection. What are some of the things that hospitals are doing to prevent SSIs? To prevent SSIs, doctors, nurses, and other healthcare providers: ??? Clean their hands and arms up to their elbows with antiseptic agent just before the surgery. ??? Clean their hands with soap and water or an alcohol-based hand rub before and after caring for each patient. ??? May remove some of your hair immediately before surgery using electric clippers if the hair is in the same area where the procedure will occur. They should not shave you with a razor. ??? Wear special hair covers, mask, gowns, and gloves during surgery to keep the surgery area clean. Give you antibiotics before your surgery starts. In most cases, you should get antibiotics within 60 minutes before the surgery starts and the antibiotics should be stopped within 24 hours after surgery. ??? Clean the skin at the site of your surgery with a special soap that kills germs What can I do to help prevent SSIs? Before your surgery: ??? Tell your doctor and other medical problems you may have. Health problems such as allergies, diabetes, and obesity could affect your surgery and your treatment. ??? Quit smoking. Patients who smoke get more infections. Talk to your doctor about how you can quit before your surgery. ??? Do not shave near where you will have surgery. Shaving with a razor can irritate your skin and make it easier to develop an infection. At the time of your surgery: ??? Speak up if someone tries to shave you with a razor before surgery. Ask why you need to be shaved and talk with your surgeon if you have any concerns. ??? Ask if you will get antibiotics before surgery. After your surgery: ??? Make sure that your healthcare providers clean their hands before examining you, either with soap and water or an alcohol-based hand rub. If you do not see your providers clean their hands, please ask them to do so. ??? Family and friends who visit you should not touch the surgical wound or dressings. ??? Family and friends should clean their hands with soap and water or an alcohol-based hand rub before and after visiting you. If you do not see them clean their hands, ask them to clean their hands. What do I need to do when I go home from the hospital? Before you go home, your doctor or nurse should explain everything you need to know about taking care of your wound. Make sure you understand how to care for your wound before you leave the hospital. ??? Always clean your hands before and after caring for your wound. ??? Before you go home, make sure you know who to contact if you have questions or problems after you get home. ??? If you have any symptoms of an infection, such as redness and pain at the surgery site, drainage, or fever, call your doctor immediately. If you have additional questions, please ask your doctor or nurse. * Simran-OP - Agnes Rodriguez RN - 01/25/2021 2:00 PM CDT Patient to sign surgical consent on day of surgery, no orders at time of PACE appointment, message sent to surgeon's office. documented in this encounter Plan of Treatment Not on file documented as of this encounter Procedures Procedure Name Priority Date/Time Associated Diagnosis Comments CBC WITHOUT DIFFERENTIAL Routine 01/25/2021 2:32 PM CDT BASIC METABOLIC PANEL Routine 01/25/2021 2:32 PM CDT documented in this encounter Results * CBC WITHOUT DIFFERENTIAL (01/25/2021 2:32 PM CDT) WBC 4.3 4.0 - 9.8 K/uL 01/25/2021 3:44 PM CDT [facility] RBC 4.33 3.90 - 4.90 M/uL 01/25/2021 3:44 PM CDT [facility] HEMOGLOBIN 13.2 11.8 - 14.8 g/dL 01/25/2021 3:44 PM CDT [facility] HEMATOCRIT 40.1 35.5 - 44.0 % 01/25/2021 3:44 PM CDT [facility] MCV 92.6 82.0 - 99.0 fL 01/25/2021 3:44 PM CDT [facility] MCH 30.5 27.2 - 32.6 pg 01/25/2021 3:44 PM CDT [facility] . [facility] MCHC 32.9 31.5 - 35.5 g/dL 01/25/2021 3:44 PM CDT [facility] PLATELETS 326 140 - 350 K/uL 01/25/2021 3:44 PM CDT [facility] . [facility] MPV 10.3 9.3 - 12.4 fL 01/25/2021 3:44 PM CDT [facility] RDW 13.0 11.5 - 14.5 % 01/25/2021 3:44 PM CDT [facility] RDW-STDEV 44.2 37.1 - 48.7 fL 01/25/2021 3:44 PM CDT [facility] Blood Venipuncture / Unknown 01/25/2021 2:32 PM CDT 01/25/2021 3:36 PM CDT Brice Aguilera PA-C HEMATOLOGY ORD ERABLES [facility] BLOSSOMIA# [id number] [address] [place] [address] [place] [address] * (ABNORMAL) BASIC METABOLIC PANEL (01/25/2021 2:32 PM CDT) SODIUM 138 136 - 145 mmol/L 01/25/2021 4:22 PM CDT [facility] - . [facility] POTASSIUM 4.1 3.5 - 5.0 mmol/L 01/25/2021 4:22 PM CDT [facility] - [facility] CHLORIDE 100 98 - 107 mmol/L 01/25/2021 4:22 PM CDT [facility] CO2 28 22 - 29 mmol/L 01/25/2021 4:22 PM CDT [facility] CALCIUM 9.8 8.6 - 10.2 mg/dL 01/25/2021 4:22 PM CDT [facility] BUN 11 8 - 23 mg/dL 01/25/2021 4:22 PM CDT [facility] - . [facility] CREATININE 0.62 0.51 - 0.95 mg/dL 01/25/2021 4:22 PM T [facility] Comment:The GFR result is no t clinically significant on patients <18 or >70 years of age. GLUCOSE 100(H) 74 - 99 mg/dL 01/25/2021 4:22 PM CDT [facility] - [facility] GFR >60 mL/min/1.7 3 sq meter 01/25/2021 4:22 PM T [facility] Comment: eGFR has not been validated for use in the elderly (> 70 years of age), women, patients with serious co-morbid conditions, or persons with extremes of body size or muscle mass and should also be interpreted with caution in patients with acute kidney failure, dialysis dependent patients, patients reporting exceptional dietary intake (e.g. vegetarian diet, high protein diets, creatine supplementation), and patients with severe liver disease. Based on National Kidney Disease Education Program If patient is , please refer to the GFR result. GFR, >60 mL/min/1.7 3 sq meter 01/25/2021 4:22 PM CDT [facility] ANION GAP 10 8 - 16 mmol/L 01/25/2021 4:22 PM T [facility] Blood Venipuncture / Unknown 01/25/2021 2:32 PM CDT 01/25/2021 3:36 PM CDT Brice Aguilera PA-C CHEMISTRY STACY OLIVIA Performing Organization Address City/State/[facility] Co de Phone Number [facility]# [id number] [address] [place] [address] documented in this encounter Visit Diagnoses Not on filedocumented in this encounter Care Teams Exchange Teller Relationship Specialty Start Date End Date Gadiel Zavala MD [address] [place] [address] PCP - General Family Practice 03/03/17 documented as of this encounter
--- OUTSIDE RECORDS SUMMARY | 2024-04-17 11:43 | XMS_ITS | Encounter Summary ---
Author Organization [facility] Address [address] [place] [address] Care Team Providers Care Director Motion Picture Name Role Phone Gadiel Zavala MD Primary Care Provider [phone] Reason for Visit * Reason Comments Double Vision Encounter Details Date Type Department Care Team (Late st Contact Info) Description 02/25/2021 3:40 PM CDT Office Visit [facility] Civil Design Technician Medical [place] A [address] [place] [address] [place] [phone] Miguel Childs MD [address] [facility] [address] [facility] [place] [address] Binocular vision disorder with diplopia [...] Progress Notes * Miguel Childs MD - 02/25/2021 3:50 PM CDT Images from the original note were not included. PATIENT NAME: Kaitlin Bond : 1950 70 y.o. EXAM DATE: 02/25/2021 Referring Provider: Lucas Chief Complaint: No chief complaint on file. History of Present Illness: HPI 2nd Post op visit Pt notes she cannot do everyday activities with one eye covered Diplopia about the same Last edited by Amari Do CO on 02/25/2021 3:46 PM. (History) Review of Systems: ROS Positive for: Eyes Negative for: Constitutional, Gastrointestinal, Neurological, Skin, Genitourinary, Musculoskeletal,HENT, Endocrine, Cardiovascular, Respiratory, Psychiatric, Allergic/Imm, Heme/Lymph Last edited by Amari Do CO on 02/25/2021 3:46 PM. (History) Past Medical History: Past Medical History: [...] TUBAL LIGATION ??? KYPHOPLASTY, LUMBAR 2016 ??? NE CERV SPINE FUSN,ANTER,BELOW C2 N/A 02/16/2017 CERVICAL DISCECTOMY FUSION 1 LEVEL ANTERIOR, C3-4 performed by Mylene Gutierrez MD at [facility] ??? 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 NE STABISMUS SURG,TWO HORIZ MUSCLE Bilateral 02/05/2021 EYE MUSCLE REPAIR RECESSION RESECTION performed by Miguel Childs MD at [facility] Medications: Current Outpatient Medications on File Prior [...] mouth daily. ??? 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 ??? atorvastatin (LIPITOR) 20 mg tablet Take [...] Linear) Right Left Dist cc 20/25 20/20 Correction: Glasses Neuro/Psych Oriented x3: Yes Mood/Affect: Normal Edited by: Amari Do CO; Miguel Childs MD Strabismus Exam Method: Alternate cover Correction: cc Distance Near Near +3DS N Bifocals E' 2 0 0 0 LE(T) 8 0 0 0 0 0 LE(T) 8 0 0 0 0 0 LE(T) 8 0 0 0 Fuses with prism offset at distance and near (8BO OD) S/P '21 BLR recess 6 Edited by: Amari Do CO; Miguel Childs MD Slit Lamp and Fundus [...] Edited by: Miguel Childs MD Testing/Data: Pre-Op 1 week post-Op Today ASSESSMENT and PLAN: ICD-10-CM ICD-9-CM 1. 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 I offered reassurance and we discussed options including a Fresnel prism and occlusion. Miguel Childs MD Sand Molder [facility] [address] [place] [address], [address] [place] [address] Office: [phone] E-mail: [email or web address] This medical record reflects the history of present illness as obtained by myself in discussion with the patient. documented in this encounter Plan of Treatment Not on file documented as of this encounter Visit Diagnoses Diagnosis Binocular vision disorder with diplopia- Primary Diplopia documented in this encounter Care Teams Director Motion Picture Relationship Specialty Start Date End Date Gadiel Zavala MD [address] [place] [phone] PCP - General Family Practice 03/03/17 documented as of this encounter
--- OUTSIDE RECORDS SUMMARY | 2024-04-17 11:43 | XMS_ITS | Encounter Summary ---
Author Organization [facility] Address [address] [place] [address] Care Team Providers Care Construction Safety Consultant Name Role Phone Gadiel Zavala MD Primary Care Provider [phone] Reason for Visit * Reason Onset Date Comments Surgery Scheduling, Other 11/27/2020 Encounter Details Date Type Department Care Team (Late st Contact Info) Description 11/27/2020 Telephone [facility] Hybrid Corn Breeder Medical [place] A [address] [place] [phone] Miguel Childs MD [address] [place] [address] Surgery Scheduling, Other Social History [...] AM CDT documented as of this encounter Plan of Treatment Not on file documented as of this encounter Visit Diagnoses Not on filedocumented in this encounter Care Teams Construction Safety Consultant Relationship Specialty Start Date End Date Gadiel Zavala MD [address] [place] [phone] PCP - General Family Practice 03/03/17 documented as of this encounter
--- OUTSIDE RECORDS SUMMARY | 2024-04-17 11:43 | XMS_ITS | Encounter Summary ---
Author Organization [facility] Address [address] [place] [address] Care Team Providers Care Powder Worker Name Role Phone Gadiel Zavala MD Primary Care Provider [phone] Encounter Details Date Type Department Care Team (Late st Contact Info) Description 11/27/2020 Abstract [facility] Children[facility] Sterile Technician Medical [address] [place] [phone] Miguel Childs MD [address] [place] [address] Social History Tobacco Use Types Packs/Day Years [...] on filedocumented in this encounter Care Teams Powder Worker Relationship Specialty Start Date End Date Gadiel Zavala MD [address] [place] [address] PCP - General Family Practice 03/03/17 documented as of this encounter
--- OUTSIDE RECORDS SUMMARY | 2024-04-17 11:43 | XMS_ITS | Encounter Summary ---
Author Organization [facility] Address [address] [place] [address] Care Team Providers Care Aerospace Physiological Technician Name Role Phone Gadiel Zavala MD Primary Care Provider [phone] Reason for Visit * Reason Onset Date Comments Surgery Scheduling, Other 12/14/2020 Encounter Details Date Type Department Care Team (Late st Contact Info) Description 12/14/2020 Telephone [facility] Children's Medical/Surgery Registered Nurse Medical [place] A [address] [place] [phone] Miguel Childs MD [address] [place] [address] Surgery Scheduling, Other Social History [...] on filedocumented in this encounter Care Teams Aerospace Physiological Technician Relationship Specialty Start Date End Date Gadiel Zavala MD [address] [place] [phone] PCP - General Family Practice 03/03/17 documented as of this encounter
--- OUTSIDE RECORDS SUMMARY | 2024-04-17 11:43 | XMS_ITS | Encounter Summary ---
Author Organization [facility] Address [address] [place] [address] Care Team Providers Care Collator Operator Name Role Phone Gadiel Zavala MD Primary Care Provider [phone] Encounter Details Date Type Department Care Team (Late st Contact Info) Description 02/05/[address] [facility] Children[facility] Automation Tech Medical [facility] [address] [facility] [address] [place] [phone] Miguel Childs MD [address] [facility] [address] [place] [address] Exotropia (Primary Dx) Social History [...] unspecified documented in this encounter Care Teams Collator Operator Relationship Specialty Start Date End Date Gadiel Zavala MD [address] [place] [phone] PCP - General Family Practice 03/03/17 documented as of this encounter
--- OUTSIDE RECORDS SUMMARY | 2024-04-17 11:43 | XMS_ITS | Encounter Summary ---
Author Organization [facility] Address [address] [place] [address] Care Team Providers Care Baler Name Role Phone Gadiel Zavala MD Primary Care Provider [phone] Encounter Details Date Type Department Care Team (Latest Contact Info) Description 02/05/2021 11:06 AM CDT - 02/05/2021 5:15 PM CDT Hospital Encounter [facility] [address] [place] [address] Miguel Childs MD [address] [facility] [address] [facility] [place] [address] Exotropia, intermittent, monocular Discharge Disposition: Home or Self Care Social [...] Sign Reading Time Taken Comments Blood Pressure 123/82 02/05/2021 5:04 PM CDT Pulse 72 02/05/2021 5:04 PM CDT Temperature 36.7 ??C (98.1 ??F) 02/05/2021 5:04 PM CD T Respiratory Rate 16 02/05/2021 5:04 PM CDT Oxygen Saturation 99% 02/05/2021 5:04 PM CDT Inhaled Oxygen Concentration - - Weight 57.2 kg (126 lb 1.6 oz) 02/05/2021 11:44 AM CDT Height 162.6 cm (5' 4 ) 02/05/2021 11:44 AM CDT Body Mass Index 21.65 02/05/2021 11:44 AM CDT documented in this encounter Discharge Instructions * Discharge Instructions* Leah Matson RN - 02/05/2021 2:56 PM CDT Discharge Instructions for Eye Muscle Surgery Dr. Childs SAFETY Have a responsible person with you the rest of today and during the night. He/She may be groggy, dizzy, irritable or less attentive during the next 12-36 hours. Your child???s balance may also be unsteady. . DIET Some people may have nausea or vomiting. Start with clear liquids (apple juice, wenceslao karen, 7-up), then advance to a regular diet. If nausea or vomiting occurs, stop feeding and return to a clear liquid diet. Then advance again slowly to a regular diet. ACTIVITY No swimming or ocean water for 1 week. MEDICATIONS Acetaminophen (Tylenol) or other non-aspirin products (Motrin) should relieve your child???s post-operative pain or discomfort. If you find that this is not sufficient, contact your surgeon. Pain Medication given at . Next dose due @ . WOUND CARE Nausea and vomiting is normal for first day. If persists, (greater than 4 times) and not taking fluids, call Dr. Childs. Eyes may be light sensitive. Bruising in the eyes may take 1-2 weeks to heal and go away. FOLLOW-UP Call the physician???s office to make a follow up appointment only as needed. Once you are home, if your child develops any of the following symptoms, call your physician: Persistent Vomiting, difficulty breathing, very pale or grayish skin color, difficulty in awakeningyour child, pain that is uncontrolled, temperature greater than 101 degrees, excessive bleeding, cloudy drainage, swelling or advanced redness at the incision site. If you cannot contact your physician, call or come to the Emergency Room at [facility] ([phone]) or the nearest Emergency Room. In an emergency, Call 911. SAFETY For the next 24 hours, you may feel sleepy due to medicines used during your procedure. For the next 24 hour period or while you are on pain medication, DO NOT make any important decisions or sign any important papers. DO NOT drink any alcoholic beverages, including beer. DO NOT drive a car or operate machinery and power tools. For your safety and protection, we strongly recommend that a responsible adult be with you today and throughout the night. Medication Pain Medication given at . Next dose due at , if needed. Tylenol 650 mg given pre-op at 12:40 pm. NO additional Tylenol until 4:40 pm if needed. ADDITIONAL INFORMATION Once you are home, if you develop any of the following symptoms, call your physician. Difficulty in breathing, persistent nausea or vomiting, pain that is unusual, excessive swelling orredness at incision site, trouble swallowing, inability to void, temperature greater than 101 degrees, excessive bleeding at incision site. If you cannot contact your physician, call or come to the Emergency Room at [facility] ([phone]) or the nearest Emergency Room. In an emergency, Call 911. documented in this encounter Medications at Time [...] 200 mg by mouth 2 times daily. omeprazole (PriLOSEC) 40 mg Capsule, Delayed Release(E.C.) Take 40 mg by mouth 2 times daily. 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 atorvastatin (LIPITOR) 20 mg tablet Take 20 mg by mouth daily. cyanocobalamin (VITAMIN B-12) 100 mcg tablet Take 3,000 mcg by mouth daily . calcium carbonate 600 mg-vitamin D3 20 mcg (800 unit) chewable tablet Take by mouth daily. meloxicam (MOBIC) 15 mg tablet Take 15 mg by mouth daily. naloxone (NARCAN) 4 mg/spray [place], Non-Aerosol [...] Daily Amount: 12 Tablets 20 Tablet 11/16/2017 docusate sodium (COLACE) 100 mg capsule Take 1 Capsule (100 mg) by mouth 2 times daily. 03/14/2017 sennosides-docusate sodium (SENNA-S) 8.6-50 mg tablet Take [...] 60 mg by mouth daily at bedtime. eszopiclone 3 mg tablet Take 5 mg by mouth nightly as needed for Insomnia. documented as of this encounter Progress Notes * Miguel Childs MD - 02/05/2021 4:47 PM CDT Interviewed patient post-op concerning pain and eyelid closure. Instilled topical anesthetic without relief. Toradol 15 mg iv did not effect her sensation. Her reports similar post-op pain concerns on other occassions without specific remedy. Reluctant to order narcotics or medication for anxiety. Will try cool compresses to eyelids. No indication for admission. Please ask patient to report overnoght concerns to me tomorrow morning, if needed. documented in this encounter H&P Notes * Miguel Childs MD - 02/05/2021 5:27 AM CDT Images from the original note were not included. PRE-ANESTHESIA ASSESSMENT 02/05/2021 5:27 AM Name: Kaitlin Bond Age: 70 y.o. Sex: female CSN: [id number] Pre-op Diagnosis: Exotropia Procedure: Procedure(s): EYE MUSCLE REPAIR RECESSION RESECTION. OS Allergies: Allergies Allergen Reactions ??? Gadolinium-Containing Contrast Media Hives ??? Gadopentetate Dimeglumine Hives ??? Latex Other (See Comments) Pt states no. Is fine with gloves. Only allergy is to adhesive. ??? Adhesive Rash ??? Adhesive Tape-Silicones Rash HISTORY Patient Active Problem List Diagnosis Date Noted [...] TUBAL LIGATION ??? KYPHOPLASTY, LUMBAR 2017 ??? CO CERV SPINE FUSN,ANTER,BELOW C2 N/A 02/16/2017 CERVICAL DISCECTOMY FUSION 1 LEVEL ANTERIOR, C3-4 performed by Mylene Gutierrez MD at [facility] OR [facility] ??? 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 Allergies Allergen Reactions ??? Gadolinium-Containing Contrast Media Hives ??? Gadopentetate Dimeglumine Hives ??? Latex Other (See Comments) Pt states no. Is fine with gloves. Only allergy is to adhesive. ??? Adhesive Rash ??? Adhesive Tape-Silicones Rash Social History Tobacco Use ??? Smoking status: Former Smoker Packs/day: 0.25 Years: 5.00 Pack years: 1.25 Types: Cigarettes Quit date: 1988 Years since quittin.7 ??? Smokeless tobacco: Never Used ??? Tobacco comment: 4 per day Substance Use Topics ??? Alcohol use: Yes Comment: 1-2 times per month 1 drink No family history on file. PHYSICAL EXAM Eyelids: no ptosis Ocular Alignment:exotropia Lungs: clear to auscultation bilaterally, normal respiratory effort Heart: regular rate and rhythm Neuro: alert, oriented x 3, no defects noted in general exam. ANESTHETIC PLAN General/OETT ASA Risk: ASA 3 - Patient with moderate systemic disease with functional limitations Patient/family/guardian accept risks, understand alternatives, have had questions answered and wishto proceed: Yes Miguel Childs MD documented in this encounter OR Notes * Simran-OP - Leah Matson RN - 02/05/2021 5:14 PM CDT Pt reports slight improvement in eye discomfort. Able to open eyes for short periods of time. Both and patient ready to proceed with discharge. Pt will notify Dr. Childs tomorrow if no improvement in discomfort at that time. * Simran-OP - Leah Matson RN - 02/05/2021 3:[address] Childs on pt's report of 7 out of 10 burning BL eye pain and her report of inability to open eyes. Dr. Childs to room to speak with patient. REceived order for Toradol 15 mg IV x 1, may repeat x1 prn. Also received Tylenol order. Will continue to monitor. * Operative Report - Miguel Childs MD - 02/05/2021 2:10 PM CDT Pre Operative Diagnosis: Exotropia Procedure: Bilateral Lateral Rectus Muscle Recession 6 mm Surgeon: Miguel Childs MD Anesthesia: GA This patient is operated to repair a visually significant strabismus. The goal of the surgical procedure is to improve ocular alignment and promote more normal binocular vision. After obtaining informed consent, the patient was brought to the operative suite, where a general anesthetic was induced and the monitoring equipment was applied by the anesthesia staff. Topical antibiotics and decongestants were instilled onto the ocular surface. Diluted betadine solution was used to prep the ocular surface, eyelashes, and eyelids. Drapes were applied using sterile technique. The right eye was operated upon initially. An eyelid speculum was inserted to retract the eyelids. Ophthalmic ointment was applied to the ocular surface in order to prevent drying. The lateral rectusmuscle was approached thru a conjunctival incision in the inferolateral cul-de-sac. The insertion of the lateral rectus muscle was engaged with a Green's muscle hook. The fascial tissue around the insertional fibers was incised and westfield cautery was used to for hemostasis. Two double armed 6-0 vicryl sutures were woven thru the insertional fibers of the lateral rectus muscle with a locking stitch on either edge. The muscle was dis inserted and Grissom forceps were used to grasp the sclera at the original site of insertion. Calipers measured 6 mm posterior to this site of insertion and at this location the muscle was resutured to the globe using direct scleral fixation. An infiltrative anesthetic was administered and the conjunctival wound was closed with interrupted, 8-0 vicryl sutures.The eyelid speculum was removed and a protective coating of ophthalmic ointment was applied. The left eye was then operated upon using a similar technique. An eyelid speculum was inserted to retract the eyelids. Ophthalmic ointment was applied to the ocular surface in order to prevent drying. The lateral rectus muscle was approached thru a conjunctival incision in the inferolateral cul-de-sac. The insertion of the lateral rectus muscle was engaged with a Green's muscle hook. The fascial tissue around the insertional fibers was incised and westfield cautery was used to for hemostasis. Two double armed 6-0 vicryl sutures were woven thru the insertional fibers of the lateral rectus muscle with a locking stitch on either edge. The muscle was dis inserted and Grissom forceps were used to grasp the sclera at the original site of insertion. Calipers measured 6 mm posterior to this site ofinsertion and at this location the muscle was resutured to the globe using direct scleral fixation.An infiltrative anesthetic was administered posteriorly. The conjunctival wound was closed with interrupted 8-0 vicryl sutures. The patient awoke from a general anesthetic, having tolerated the procedure well, and went to the recovery room in satisfactory condition. I spoke with the family about the technically uncomplicated nature of the procedure and instructed them in post operative management. I spoke with them about post operative outcomes, including persistent strabismus, and the indication for further surgical intervention. I believe that they are well informed. Miguel Childs MD * Simran-OP - Jocelyn Hargrove RN - 01/11/2021 10:05 AM CDT Pt states she is going to try to get a covid test closer to home. She was instructed that it has gurdeep done 3-5 days prior to surgery, th the results have to be faxed to Dr Childs, and that she needs to bring a computer generated copy with her the day of surgery. She voiced understanding. Dr Childs's fax number provided to pt.Also instructed to call [facility] back if unable to get covid test scheduled and we will schedule it for her. * Simran-OP - Anamaria Bran RN - 12/14/2020 10:38 AM CDT Pt called stated she was instructed by surgeon office to call [facility] about having difficultly with breathing. I instructed pt to call 911 if she was struggling to breathe and if she thought the problemwas minor she should call senior software qa analyst. Pt stated she was not in distress and would call concerns to senior software qa analyst. I set her up and appt to meet with anesthesia and covid testing with in 10 day of her surgery documented in this encounter Miscellaneous Notes * Care Plan - Leah Matson RN - 02/05/2021 5:13 PM CDT Knowledge deficit related to post-discharge care Interventions: Assess learning needs and willingness to learn; give clear, concise explanations of the care required post-discharge; address patient/family questions and concerns; provide teaching asindicated Expected Outcome: Patient and/or family/significant other demonstrate(s) behaviors required for performance of activities enhancing recovery post-discharge Outcome Met: verbalizes understanding of discharge instructions. * Care Plan - Cindy Rashid RN - 02/05/2021 2:44 PM CDT Potential for pain related to surgical/procedural intervention Interventions: Assess level of pain/comfort utilizing verbal/nonverbal pain scales; assess culturalor bahai indicators attached to pain; administer pain medications as prescribed; utilize non-pharmacologic pain control and comfort measures Expected Outcome: Patient demonstrates and reports adequate pain control Outcome Met: PRN pain medication available Potential for anxiety related to surgical intervention Interventions: convey caring/supportive attitude; offer emotional support as needed; provide comfort measures (warm blanket, pillow, quiet environment); allow patient opportunity to verbalize concerns/fears/questions; explore coping behaviors; allow age-specific/special needs family support Expected Outcome: Patient will demonstrate decreased anxiety or adaptive coping strategies Outcome Met: Pt resting quietly * Care Plan - Mary Smith RN - 02/05/2021 12:38 PM CDT Knowledge deficit related to procedure/environment Interventions: Assess learning needs and willingness to learn; give clear, concise explanations of the environment and sequence of events surrounding the periop experience; address patient/family questions and concerns; provide teaching as indicated, provide teaching related to postoperative pain assessment utilizing pain scales Expected Outcome: Patient verbalizes or demonstrates awareness/understanding of surgery and perioperative experience Outcome Met: No further questions voiced. documented in this encounter Plan of Treatment Not on file documented as of this encounter Procedures Procedure Name Priority Date/Time Associated Diagnosis Comments CO STRABISMUS RECESSION/RESCJ 2 [facility] 02/05/2021 1:26 PM CDT Exotropia, intermittent, monocular Binocular vision disorder with diplopia Case Notes CPT 24143 LT AETNA MCR ADV NO PA NEEDED documented in this encounter Visit Diagnoses Not on filedocumented in this encounter Administered Medications Inactive Administered Medications - up to 3 most recent administrations Medication Order MAR Action Action Date Dose Rate Site acetaminophen (TYLENOL) tablet 650 mg 650 mg, Oral, PRE-PROCEDURE ONCE, 1 dose, Starting on Mon02/05/21 at 1229, Until Mon02/05/21 at 1242, Routine, Pre-op Given 02/05/2021 12:42 PM CDT 650 mg acetaminophen (TYLENOL) tablet 650 mg 650 mg, Oral, POST-PROCEDURE ONCE PRN, 1 dose, Starting on Mon02/05/21 at 1526, Until Mon02/05/21 at 1639, Pain, Routine, Post-op Phase II Given 02/05/2021 4:39 PM CDT 650 mg fentaNYL PF (SUBLIMAZE) 50 mcg/mL injection 25 mcg 25 mcg, IV, POST-PROCEDURE Q 3 MINUTES PRN, 5 doses, Starting on Mon02/05/21 at 1350, Until Mon02/05/21 at 1916, Pain, Break-Through, Routine, PACU ketorolac (TORADOL) injection 15 mg 15 mg, IV, POST-PROCEDURE ONCE, 1 dose, Starting on Mon02/05/21 at 1526, Until Mon02/05/21 at 1534, Routine, Post-op Phase II Given 02/05/2021 3:34 PM CDT 15 mg lactated ringers infusion IV, at 150 mL/hr, CONTINUOUS, Starting on Mon02/05/21 at 1245, Until Mon02/05/21 at 1916, Routine New Bag 02/05/2021 2:09 PM CDT Restarted 02/05/2021 12:56 PM CDT Continue from Pre-Op 02/05/2021 12:55 PM CDT 15 0 mL/hr lactated ringers infusion IV, at 30 mL/hr, POST-PROCEDURE CONTINUOUS, Starting on Mon02/05/21 at 1400, Until Mon02/05/21 at 191, Routine, PACU morphine injection 1 mg 1 mg, IV, POST-PROCEDURE Q 5 MINUTES PRN, 5 doses, Starting on Mon02/05/21 at 1350, Until Mon02/05/21 at 1916, Pain, Routine, PACU naloxone (NARCAN) 0.4 mg/mL injection 0.1 mg 0.1 mg, IV, SEE ADMIN INSTRUCTIONS, Starting on Mon02/05/21 at 1349, Until Mon02/05/21 at 191, Routine, PACU ondansetron (ZOFRAN ODT) tablet 4 mg 4 mg, Oral, PRE-PROCEDURE ONCE, 1 dose, Starting on Mon02/05/21 at 1229, Until Mon02/05/21 at 1242, Routine, Pre-op Given 02/05/2021 12:42 PM CDT 4 mg ondansetron (ZOFRAN) 4 mg/2 mL injection 4 mg 4 mg, IV, POST-PROCEDURE ONCE PRN, 1 dose, Starting on Mon02/05/21 at 1350, Until Mon02/05/21 at 1916, Nausea/Emesis, Routine, PACU prochlorperazine (COMPAZINE) injection 5 mg 5 mg, IV, POST-PROCEDURE ONCE PRN, 1 dose, Starting on Mon02/05/21 at 1350, Until Mon02/05/21 at 1916, Nausea/Emesis, Routine, PACU tobramycin-dexamethasone (TOBRADEX) 0.3-0.1 % ophthalmic ointment 0.5 Inch Left Eye, INTRA-PROCEDURE PRN, Starting on Mon02/05/21 at 1215, Until Mon02/05/21 at 191, intra op, Routine, Intra-op documented in this encounter Active and Recently Administered Medications Times are shown in CDT. Scheduled Medication Order 02/03/2021 02/04/2021 02/05/2021 acetaminophen (TYLENOL) tablet 650 mg (COMPLETED) 650 mg, Oral, PRE-PROCEDURE ONCE, 1 dose, Starting on Mon02/05/21 at 1229, Until Mon02/05/21 at 1242, Routine, Pre-op 1242 (Given - Provid er: Mary Smith RN) ketorolac (TORADOL) injection 15 mg (COMPLETED) 15 mg, IV, POST-PROCEDURE ONCE, 1 dose, Starting on Mon02/05/21 at 1526, Until Mon02/05/21 at 1534, Routine, Post-op Phase II 1534 (Given - Provid er: Leah Matson RN) lidocaine PF 2% (XYLOCAINE MPF) injection 0.3 mL 0.3 mL, Infiltration, ONE TIME ONLY, 1 dose, On Mon02/05/21 at 1245, Routine 1245 (Due) naloxone (NARCAN) 0.4 mg/mL injection 0.1 mg 0.1 mg, IV, SEE ADMIN INSTRUCTIONS, Starting on Mon02/05/21 at 1349, Until Mon02/05/21 at 1916, Routine, PACU ondansetron (ZOFRAN ODT) tablet 4 mg (COMPLETED) 4 mg, Oral, PRE-PROCEDURE ONCE, 1 dose, Starting on Mon02/05/21 at 1229, Until Mon02/05/21 at 1242, Routine, Pre-op 1242 (Given - Provid er: Mary Smith RN) phenylephrine 2.5 % ophthalmic solution 1 Drop 1 Drop, Left Eye, ONE TIME ONLY, 1 dose, On Mon02/05/21 at 1230, Routine, Intra-op 1230 (Due) Continuous Medication Order 02/03/2021 02/04/2021 02/05/2021 lactated ringers infusion IV, at 150 mL/hr, CONTINUOUS, Starting on Mon02/05/21 at 1245, Until Mon02/05/21 at 1916, Routine 1241 (New Bag - Prov ider: Mary Smith RN)1255 (Continue from Pre-Op - Provider: Montrell Walsh MD)1255 (Paused - Provider: Lyudmila Jorge CRNA - Comment: Switch to gravity)1256 (Restarted - Provider: Lyudmila Jorge CRNA)1409 (New Bag - Provider: Lyudmila Jorge CRNA) lactated ringers infusion IV, at 30 mL/hr, POST-PROCEDURE CONTINUOUS, Starting on Mon02/05/21 at 1400, Until Mon02/05/21 at 1916, Routine, PACU 1400 (Due) PRN Medication Order 02/03/2021 02/04/2021 02/05/2021 acetaminophen (TYLENOL) tablet 650 mg (COMPLETED) 650 mg, Oral, POST-PROCEDURE ONCE PRN, 1 dose, Starting on Mon02/05/21 at 1526, Until Mon02/05/21 at 1639, Pain, Routine, Post-op Phase II 1639 (Given - Provid er: Leah Matson RN) bupivacaine-EPINEPHrine (SENSORCAINE-EPINEPHRINE) 0.25 %-1:200,000 injection (CANCELED) INTRA-PROCEDURE PRN, Starting on Mon02/05/21 at 1410, Until Mon02/05/21 at 1425, Routine, Intra-op 1410 (Given - Provid er: Miguel Childs MD) fentaNYL PF (SUBLIMAZE) 50 mcg/mL injection 25 mcg 25 mcg, IV, POST-PROCEDURE Q 3 MINUTES PRN, 5 doses, Starting on Mon02/05/21 at 1350, Until Mon02/05/21 at 1916, Pain, Break-Through, Routine, PACU morphine injection 1 mg 1 mg, IV, POST-PROCEDURE Q 5 MINUTES PRN, 5 doses, Starting on Mon02/05/21 at 1350, Until Mon02/05/21 at 1916, Pain, Routine, PACU moxifloxacin (VIGAMOX) 0.5 % ophthalmic solution (CANCELED) INTRA-PROCEDURE PRN, Starting on Mon02/05/21 at 1324, Until Mon02/05/21 at 1425, Routine, Intra-op 1324 (Given - Provid er: Miguel Childs MD) ondansetron (ZOFRAN) 4 mg/2 mL injection 4 mg 4 mg, IV, POST-PROCEDURE ONCE PRN, 1 dose, Starting on Mon02/05/21 at 1350, Until Mon02/05/21 at 1916, Nausea/Emesis, Routine, PACU phenylephrine 2.5 % ophthalmic solution (CANCELED) INTRA-PROCEDURE PRN, Starting on Mon02/05/21 at 1324, Until Mon02/05/21 at 1425, Routine, Intra-op 1324 (Given - Provid er: Miguel Childs MD) prochlorperazine (COMPAZINE) injection 5 mg 5 mg, IV, POST-PROCEDURE ONCE PRN, 1 dose, Starting on Mon02/05/21 at 1350, Until Mon02/05/21 at 1916, Nausea/Emesis, Routine, PACU tobramycin-dexamethasone (TOBRADEX) 0.3-0.1 % ophthalmic ointment 0.5 Inch Left Eye, INTRA-PROCEDURE PRN, Starting on Mon02/05/21 at 1215, Until Mon02/05/21 at 1916, intra op, Routine, Intra-op tobramycin-dexamethasone (TOBRADEX) 0.3-0.1 % ophthalmic ointment (CANCELED) INTRA-PROCEDURE PRN, Starting on Mon02/05/21 at 1324, Until Mon02/05/21 at 1425, Routine, Intra-op 1324 (Given - Provid er: Miguel Childs MD) documented in this encounter Care Teams Baler Relationship Specialty Start Date End Date Gadiel Zavala MD [address] [place] [id number] PCP - General Family Practice 03/03/17 documented as of this encounter
--- OUTSIDE RECORDS SUMMARY | 2024-04-17 11:43 | XMS_ITS | Encounter Summary ---
Author Organization [facility] Address [address] [facility] Attn: Epic Prelude ADT [place] [address] Care Team Providers Care Records Management Associate Name Role Phone Gadiel Zavala MD Primary Care Provider [phone] Encounter Details Date Type Department Care Team (Latest Contact Info) Description 02/25/2021 Travel Social History Tobacco Use Types Packs/Day [...] on filedocumented in this encounter Care Teams Records Management Associate Relationship Specialty Start Date End Date Gadiel Zavala MD [address] [place] [address] PCP - General Family Practice 03/03/17 documented as of this encounter
--- OUTSIDE RECORDS SUMMARY | 2024-04-17 11:43 | XMS_ITS | Encounter Summary ---
Author Organization [facility] Address [address] [place] [address] Care Team Providers Care Special Projects Coordinator Name Role Phone Gadiel Zavala MD Primary Care Provider [phone] Encounter Details Date Type Department Care Team (Late st Contact Info) Description 02/05/2021 1:26 PM CDT - 02/05/2021 3:26 PM CDT Surgery [facility] Operating Room [address] [place] [phone] Miguel Childs MD [address] [facility] [address] [place] [address] EYE MUSCLE REPAIR RECESSION RESECTION Surgery Details Date/Time Status Location OR Service Patient Class Case Class Case Type Trauma Case? 02/05/2021 1:26 PM Posted [facility] OR MAIN OR Ophthalmology Surgical OP/Extended Care Elective No Panel 1 Procedure LRB Anes Op Region Wound Class Comments EYE MUSCLE REPAIR RECESSION RESECTION Bilateral General Eye Clean-I Surgeon Surgeon Role Service Panel Miguel Childs MD Primary Ophthalmology 1 Case Notes CPT 65147 LT AETNA MCR ADV NO PA NEEDED documented in this encounter Social History Tobacco [...] Sign Reading Time Taken Comments Blood Pressure 125/83 02/05/2021 3:02 PM CDT Pulse 87 02/05/2021 3:02 PM CDT Temperature 36 ??C (96.8 ??F) 02/05/2021 3:02 PM CDT Respiratory Rate 16 02/05/2021 3:02 PM CDT Oxygen Saturation 98% 02/05/2021 3:02 PM CDT Inhaled Oxygen Concentration - - [...] come to the Emergency Room at [facility] ([phone]) or the nearest Emergency Room. In an [...] come to the Emergency Room at [facility] ([phone]) or the nearest Emergency Room. In an [...] tablet Take 50 mcg by mouth daily mobile product manager. atorvastatin (LIPITOR) 20 mg tablet Take 20 mg by mouth daily. cyanocobalamin (VITAMIN B-12) 100 mcg tablet Take 3,000 mcg by mouth daily . calcium carbonate 600 mg-vitamin D3 20 mcg (800 unit) chewable tablet Take by mouth daily. meloxicam (MOBIC) 15 mg tablet Take 15 mg by mouth daily. naloxone (NARCAN) 4 mg/spray [place], Non-Aerosol EMERGENCY USE ONLY: Administer 1 spray [...] Bond Age: 70 y.o. Sex: female CSN: [id number] Pre-op Diagnosis: Exotropia Procedure: Procedure(s): EYE MUSCLE [...] TUBAL LIGATION ??? KYPHOPLASTY, LUMBAR 2016 ??? ND CERV SPINE FUSN,ANTER,BELOW C2 N/A 02/16/2017 CERVICAL DISCECTOMY FUSION 1 LEVEL ANTERIOR, C3-4 performed by Mylene Gutierrez MD at [facility] OR [facility] ??? ND IMPLANT SPINAL NEUROSTIM/TERMINAL OPERATIONS SUPERVISOR N/A 11/16/2017 SPINAL CORD DORSAL COLUMN STIMULATOR REMOVAL performed by Mylene Gutierrez MD at [facility] OR [facility] Past Anesthesia History: No anesthesia problems/complications No [...] thought the problemwas minor she should call radio adjuster. Pt stated she was not in distress and would call concerns to radio adjuster. I set her up and appt to [...] pain/comfort utilizing verbal/nonverbal pain scales; assess culturalor yazidi indicators attached to pain; administer pain medications [...] Procedure Name Priority Date/Time Associated Diagnosis Comments ND STRABISMUS RECESSION/RESCJ 2 HRZNTL MUSC 02/05/2021 1:26 PM CDT Exotropia, intermittent, monocular Binocular vision disorder with diplopia Case Notes CPT 57695 LT AETNA MCR ADV NO PA NEEDED documented in this encounter Visit Diagnoses Diagnosis Exotropia, intermittent, monocular Intermittent exotropia, monocular Binocular vision disorder with diplopia Diplopia documented in this encounter Administered Medications [...] Given 02/05/2021 4:39 PM CDT 650 mg bupivacaine-EPINEPHrine (SENSORCAINE-EPINEPHRINE) 0.25 %-1:200,000 injection INTRA-PROCEDURE PRN, Starting on Mon02/05/21 at 1410, Until Mon02/05/21 at 1425, Routine, Intra-op Given 02/05/2021 2:10 PM CDT 1.5 mL Operative Site fentaNYL PF (SUBLIMAZE) 50 mcg/mL injection 25 [...] 1400, Until Mon02/05/21 at 1916, Routine, PACU morphine injection 1 mg 1 mg, IV, POST-PROCEDURE Q 5 MINUTES PRN, 5 doses, Starting on Mon02/05/21 at 1350, Until Mon02/05/21 at 1916, Pain, Routine, PACU moxifloxacin (VIGAMOX) 0.5 % ophthalmic solution INTRA-PROCEDURE PRN, Starting on Mon02/05/21 at 1324, Until Mon02/05/21 at 1425, Routine, Intra-op Given 02/05/2021 1:24 PM CDT 1 Drop Opera tive Site naloxone (NARCAN) 0.4 mg/mL injection 0.1 mg [...] Routine, PACU phenylephrine 2.5 % ophthalmic solution INTRA-PROCEDURE PRN, Starting on Mon02/05/21 at 1324, Until Mon02/05/21 at 1425, Routine, Intra-op Given 02/05/2021 1:24 PM CDT 2 Drops Opera tive Site prochlorperazine (COMPAZINE) injection 5 mg 5 mg, IV, POST-PROCEDURE ONCE PRN, 1 dose, Starting on Mon02/05/21 at 1350, Until Mon02/05/21 at 1916, Nausea/Emesis, Routine, PACU tobramycin-dexamethasone (TOBRADEX) 0.3-0.1 % ophthalmic ointment 0.5 Inch Left Eye, INTRA-PROCEDURE PRN, Starting on Mon02/05/21 at 1215, Until Mon02/05/21 at 1916, intra op, Routine, Intra-op tobramycin-dexamethasone (TOBRADEX) 0.3-0.1 % ophthalmic ointment INTRA-PROCEDURE PRN, Starting on Mon02/05/21 at 1324, Until Mon02/05/21 at 1425, Routine, Intra-op Given 02/05/2021 1:24 PM CDT 0.5 Inches Opera tive Site documented in this encounter Active and Recently Administered Medications Times are shown in CDT. Scheduled Medication Order 02/03/2021 02/04/2021 02/05/2021 acetaminophen (TYLENOL) tablet 650 mg (COMPLETED) 650 mg, Oral, PRE-PROCEDURE ONCE, 1 dose, Starting on Mon02/05/21 at 1229, Until Mon02/05/21 at 1242, Routine, Pre-op 1242 (Given - Provid er: Mary Smith, LOGAN) ketorolac (TORADOL) injection 15 mg (COMPLETED) 15 [...] Pre-op 1242 (Given - Provid er: Mary Smith, LOGAN) phenylephrine 2.5 % ophthalmic solution 1 Drop [...] MD) documented in this encounter Care Teams Special Projects Coordinator Relationship Specialty Start Date End Date Gadiel Zavala MD [address] [place] [phone] PCP - General Family Practice 03/03/17 documented as of this encounter
--- OUTSIDE RECORDS SUMMARY | 2024-04-17 11:43 | XMS_ITS | Encounter Summary ---
Author Organization [facility] Address [address] [facility] Attn: Epic Prelude ADT [place] [address] Care Team Providers Care Pharmacist Assistant Name Role Phone Gadiel Zavala MD Primary Care Provider [phone] Encounter Details Date Type Department Care Team (Latest Contact Info) Description 02/11/2021 Travel Social History Tobacco Use Types Packs/Day [...] have Coronavirus / COVID-19? No / Unsure 02/11/2021 1:30 PM CDT documented as of this encounter Plan of Treatment Not on file documented as of this encounter Visit Diagnoses Not on filedocumented in this encounter Care Teams Pharmacist Assistant Relationship Specialty Start Date End Date Gadiel Zavala MD [address] [place] [address] PCP - General Family Practice 03/03/17 documented as of this encounter
--- OUTSIDE RECORDS SUMMARY | 2024-04-17 11:43 | XMS_ITS | Encounter Summary ---
Author Organization [facility] Address [address] [place] [address] Care Team Providers Care Online Content Coordinator Name Role Phone Gadiel Zavala MD Primary Care Provider [phone] Reason for Visit * Reason Onset Date Comments Double Vision 02/17/2021 Encounter Details Date Type Department Care Team (Late st Contact Info) Description 02/17/2021 Telephone [facility] Children's Roller Shop Supervisor Medical [place] A [address] [place] [address] [place] [phone] Miguel Childs MD [address] [facility] [address] [place] [address] Double Vision Social History Tobacco [...] Telephone Encounter - Miguel Childs MD - 02/17/2021 9:45 AM CDT Spoke with patient about double vision. Images remain horizonally displace. Getting closer. She might prefer occluding left eye instead of right eye. Offered office visit Her is going out of town. Will call next week. documented in this encounter Plan of Treatment Not on file documented as of this encounter Visit Diagnoses Not on filedocumented in this encounter Care Teams Online Content Coordinator Relationship Specialty Start Date End Date Gadiel Zavala MD [address] [place] [phone] PCP - General Family Practice 03/03/17 documented as of this encounter
--- OUTSIDE RECORDS SUMMARY | 2024-04-17 11:43 | XMS_ITS | Encounter Summary ---
Author Organization [facility] Address [address] [facility] Attn: Epic Prelude ADT [place] [address] Care Team Providers Care Cleaning Custodian Name Role Phone Gadiel Zavala MD Primary Care Provider [phone] Encounter Details Date Type Department Care Team (Latest Contact Info) Description 02/12/2021 Travel Social History Tobacco Use Types Packs/Day [...] on filedocumented in this encounter Care Teams Cleaning Custodian Relationship Specialty Start Date End Date Gadiel Zavala MD [address] [place] [address] PCP - General Family Practice 03/03/17 documented as of this encounter
--- OUTSIDE RECORDS SUMMARY | 2024-04-17 11:44 | XMS_ITS | Encounter Summary ---
Author Organization [facility] Address [address] [place] [address] Care Team Providers Care Risk Specialist Name Role Phone Gadiel Zavala MD Primary Care Provider [phone] Encounter Details Date Type Department Care Team (Late st Contact Info) Description 11/27/2020 Orders Only [facility] Children's Sugar Presser Medical [place] A [address] [facility] [address] [place] [phone] Miguel Childs MD [address] [facility] [address] [facility] [place] [address] Social History Tobacco Use Types [...] on filedocumented in this encounter Care Teams Risk Specialist Relationship Specialty Start Date End Date Gadiel Zavala MD [address] [place] [address] PCP - General Family Practice 03/03/17 documented as of this encounter
--- OUTSIDE RECORDS SUMMARY | 2024-04-17 11:44 | XMS_ITS | Encounter Summary ---
Author Organization [facility] Address [address] [facility] Attn: Epic Prelude ADT [place] [address] Care Team Providers Care Catering Sales Manager Name Role Phone aGdiel Zavala MD Primary Care Provider [phone] Encounter Details Date Type Department Care Team (Latest Contact Info) Description 11/27/2020 Travel Social History Tobacco Use Types Packs/Day [...] on filedocumented in this encounter Care Teams Catering Sales Manager Relationship Specialty Start Date End Date Gadiel Zavala MD [address] [place] [address] PCP - General Family Practice 03/03/17 documented as of this encounter
--- OUTSIDE RECORDS SUMMARY | 2024-04-17 11:45 | XMS_ITS | Encounter Summary ---
Author Organization [facility] Address [address] [place] [address] Care Team Providers Care Bulk Tank Car Unloader Name Role Phone Gadiel Zavala MD Primary Care Provider [phone] Encounter Details Date Type Department Care Team (Latest Contact Info) Description 01/19/2018 10:30 AM CDT - 01/19/2018 11:59 PM T Hospital Encounter [facility] Spine [facility] [place] A [address] [place] [phone] Mylene Gutierrez MD [facility] [place] [address] [phone] (Work) Discharge Disposition: Home or Self Care Social [...] on file documented as of this encounter Medications at Time of Discharge Medication Sig Dispensed Refills Start Date End Date oxyCODONE-acetaminophen (PERCOCET) 5-325 mg tablet Take 1-2 Tablets by mouth every 4 hours as needed for Pain, Moderate. Max Daily Amount: 12 Tablets 20 Tablet 11/16/2017 metoprolol succinate (TOPROL XL) 100 mg Extended [...] 4 hours as needed for Pain. 03/01/2017 omeprazole (PriLOSEC) 40 mg Capsule, Delayed Release(E.C.) Take 40 mg by mouth 2 times daily. levothyroxine 50 mcg tablet Take 50 mcg by mouth daily director of early childhood. atorvastatin (LIPITOR) 20 mg tablet Take 20 [...] for Insomnia. documented as of this encounter Plan of Treatment Not on file documented as of this encounter Procedures Procedure Name Priority Date/Time Associated Diagnosis Comments XR CERVICAL SPINE 4 OR 5 VIEWS Routine 01/19/2018 10:38 AM CDT Cervical stenosis of spinal canal S/P spinal fusion documented in this encounter Results * XR CERVICAL SPINE 4 OR 5 VIEWS (01/19/2018 10:38 AM CDT) Anatomical Region Laterality Modality Spine Computed Radiogr aphy 01/19/2018 10:3 9 AM CDT Impressions 01/19/2018 11:43 AM CDT IMPRESSION: Instability at C3-4 with loosening of screws at C3. Dictation location 1 [facility] Narrative 01/19/2018 11:43 AM CDT CERVICAL SPINE AP AND LATERAL VIEWS IN NEUTRAL FLEXION AND EXTENSION 01/19/2018 COMPARISON: ??Comparison is made to prior study of 08/15/2017. FINDINGS: In extension and neutral position there is a 1.8 mm anterolisthesis of C3 on C4. There is lucency surrounding the C3 screws. There is also lucency between the interbody bone graft at C3-4 and the C3 vertebral body. In flexion anterolisthesis at C3-4 increases to 3.8 mm. There is solid fusion at C4-5-6 level. C6-7 has narrowing of intervertebral disc space. ??The anterolisthesis is noted on prior study at C3-4. There is some calcification superior to anterior fusion plate at C3 level. Procedure Note Boom Paulino MD - 01/19/2018 CERVICAL SPINE AP AND LATERAL VIEWS IN NEUTRAL FLEXION AND EXTENSION 01/19/2018 COMPARISON: Comparison is made to prior study of 08/15/2017. FINDINGS: In extension and neutral position there is a 1.8 mm anterolisthesis of C3 on C4. There is lucency surrounding the C3 screws. There is also lucency between the interbody bone graft at C3-4 and the C3 vertebral body. In flexion anterolisthesis at C3-4 increases to 3.8 mm. There is solid fusion at C4-5-6 level. C6-7 has narrowing of intervertebral disc space. The anterolisthesis is noted on prior study at C3-4. There is some calcification superior to anterior fusion plate at C3 level. IMPRESSION: Instability at C3-4 with loosening of screws at C3. Dictation location 1 [facility] Mylene Gutierrez MD DIAGNOSTIC IMAGING O RDERABLES documented in this encounter Visit Diagnoses Diagnosis Cervical stenosis of spinal canal Spinal stenosis in cervical region S/P spinal fusion Arthrodesis status documented in this encounter Care Teams Bulk Tank Car Unloader Relationship Specialty Start Date End Date Gadiel Zavala MD [address] [place] [phone] PCP - General Family Practice 03/03/17 documented as of this encounter
--- OUTSIDE RECORDS SUMMARY | 2024-04-17 11:45 | XMS_ITS | Encounter Summary ---
Author Organization [facility] Address [address] [place] [address] Care Team Providers Care Poke In Name Role Phone Gadiel Zavala MD Primary Care Provider [phone] Encounter Details Date Type Department Care Team (Late st Contact Info) Description 01/03/2018 Abstract [facility] [place] [facility] Physical Med and Rehab [facility] [address] [place] [phone] Yasmin Vieyra DO [address] [phone] Social History Tobacco Use Types Packs/Day Years [...] on filedocumented in this encounter Care Teams Poke In Relationship Specialty Start Date End Date Gadiel Zavala MD [address] [place] [phone] PCP - General Family Practice 03/03/17 documented as of this encounter
--- OUTSIDE RECORDS SUMMARY | 2024-04-17 11:45 | XMS_ITS | Encounter Summary ---
Author Organization [facility] Address [address] [place] [address] Care Team Providers Care Port Purser Name Role Phone Gadiel Zavala MD Primary Care Provider [phone] Reason for Visit * Reason Comments Double Vision Encounter Details Date Type Department Care Team (Late st Contact Info) Description 09/08/2020 11:20 AM CDT Office Visit [facility] Children's Medical Reimbursement Manager Medical [place] A [address] [place] [address] [place] [phone] Miguel Childs MD [address] [facility] [place] [address] Binocular vision disorder with diplopia (Primary Dx); Exotropia, intermittent, monocular; Cervical myelopathy Social History Tobacco Use Types Packs/Day Years [...] have Coronavirus / COVID-19? No / Unsure 09/08/2020 10:45 AM CDT documented as of this encounter Progress Notes * Miguel Childs MD - 09/08/2020 11:33 AM CDT Images from the original note were not included. PATIENT NAME: Kaitlin Bond : 1950 70 y.o. EXAM DATE: 09/08/2020 Referring Provider: Kiko Chief Complaint: Chief Complaint Patient presents with ??? Double Vision History of Present Illness: HPI Has had double vision for about 4 months OS turns in and has been for about the same amount of time Has not had any trauma or any obvious reason for it Seems to be getting worse the last couple weeks especially Has a hard time correcting it when it happens Double vision happens whether she looks at something close or far away Often finds herself with OS closed In the mornings OS does not open on its own Review of Systems: ROS Positive for: Eyes [...] TUBAL LIGATION ??? KYPHOPLASTY, LUMBAR 2016 ??? DC CERV SPINE FUSN,ANTER,BELOW C2 N/A 02/16/2017 CERVICAL DISCECTOMY FUSION 1 LEVEL ANTERIOR, C3-4 performed by Mylene Gutierrez MD at [facility] OR [facility] ??? DC IMPLANT SPINAL NEUROSTIM/TWINE WINDER N/A 11/16/2017 SPINAL CORD DORSAL COLUMN STIMULATOR REMOVAL performed by Mylene Gutierrez MD at [facility] OR [facility] Medications: Current Outpatient Medications on File Prior to Visit Medication Sig Dispense Refill ??? meloxicam (MOBIC) 15 mg tablet Take 15 mg by mouth daily. ??? oxyCODONE-acetaminophen (PERCOCET) 5-325 mg tablet Take [...] Take 50 mcg by mouth daily mobile development manager. ??? atorvastatin (LIPITOR) 20 mg tablet Take [...] - Linear) Right Left Dist cc 20/20 -1 20/20 -1 Correction: Glasses Pupils Pupils Right PERRL Left PERRL Extraocular Movement Right Left Full Full Neuro/Psych Oriented x3: Yes Mood/Affect: Normal Edited by: Carolina Flores; Miguel Childs MD Additional Tests Stereo Lan/3 Edited by: Carolina Flores Strabismus Exam 0 0 0 0 0 0 LX(T) 12 0 0 LX(T) 20 0 0 LX(T) 16 0 0 0 0 0 0 [id number] Interpretation Exotropia, intermittent Edited by: Miguel Childs MD Slit Lamp [...] Childs MD Refraction Wearing Rx Sphere Cylinder [place] Add Horz Prism Right -0.75 +1.25 020 +2.50 Left -0.50 +1.25 165 +2.50 Age: 1y Wearing Rx #2 Sphere Cylinder [place] Add Horz Prism Right -0.50 +1.50 029 +2.50 3 BI Left -0.25 +0.75 167 +2.50 2 MEEK Age: 6m Wearing Rx Comments #1 wearing - old #2 newer does not like Edited by: Carolina Flores; Miguel Childs MD Testing/Data: ASSESSMENT and PLAN: ICD-10-CM ICD-9-CM 1. Binocular vision disorder with diplopia H53.2 368.2 2. Exotropia, intermittent, monocular H50.30 378.23 3. Cervical myelopathy G95.9 721.1 Kaitlin Bond demonstrates intermittent strabismus as a cause for diplopia. This pattern of strabismus is not a cranial neuropathy and it is curious that she was treated for accommodative spasms for many years. Nevertheless, the cause for strabismus remains uncertain and further diagnostic testing is reasonable. I suggested a brain MRI and Ach receptor antibody titer. Assuming that these studi es reveal no associated neurologic conditions, then eye muscle surgery should be helpful. Prisms inher glasses are not well accepted. Miguel Childs MD Rug Weaver [facility] [address] [place] [address], [address] [place] [address] Office: [phone] E-mail: [email or web address] This medical record reflects the history of present illness as obtained by myself in discussion with the patient. documented in this encounter Miscellaneous Notes * Result Encounter Note - Miguel Childs MD - 12/07/2020 9:54 AM CDT This ACh receptor antibody test is negative, which makes myasthenia gravis an unlikley cause for strabismus. documented in this encounter Plan of Treatment Not on file documented as of this encounter Procedures Procedure Name Priority Date/Time Associated Diagnosis Comments ACETYLCHOLINE RECEPTOR BINDING ANTIBODY Routine 12/01/2020 2:36 PM CDT Binocular vision disorder with diplopia documented in this encounter Results * ACETYLCHOLINE RECEPTOR BINDING ANTIBODY (12/01/2020 2:36 PM CDT) ACETYLCHOLINE KENO MANAGER BINDING AB <0.30 nmol/L [facility] Comment: Reference Ranges for Acetylcholine Receptor ??Binding Antibody: Negative: < or =0.30 nmol/L Equivocal: ??0.31-0.49 nmol/L Positive: > or =0.50 nmol/L FASTING:NO FASTING: NO Test Performed at: [facility], [address] [facility], [place] ??[address] Mari Wells MD,PhD,LANCE Blood 12/01/2020 2:36 PM CDT 12/01/2020 2:37 PM CDT Miguel Childs MD CHEMISTRY ORDERABLES [facility] [address] [place] [address] documented in this encounter Visit Diagnoses Diagnosis Binocular vision disorder with diplopia- Primary Diplopia Exotropia, intermittent, monocular Intermittent exotropia, monocular Cervical myelopathy Cervical spondylosis with myelopathy documented in this encounter Care Teams Port Purser Relationship Specialty Start Date End Date Gadiel Zavala MD [address] [place] [phone] PCP - General Family Practice 03/03/17 documented as of this encounter
--- OUTSIDE RECORDS SUMMARY | 2024-04-17 11:46 | XMS_ITS | Encounter Summary ---
Author Organization [facility] Address [address] [place] [address] Care Team Providers Care Oliver Filter Operator Name Role Phone Gadiel Zavala MD Primary Care Provider [phone] Reason for Visit * Auth/Cert Specialty Diagnoses / Procedures Referred By Contac t Referred To Contact General Surgery Diagnoses weakness [facility] Care Int Unit [address] [address] Referral ID Status Reason Start Date Expiration Date Visits Re quested Visits Authorized [id number] 1 1 Encounter Details Date Type Department Care Team (Latest Contact Info) Description 02/28/2017 11:50 AM CDT - 03/03/2017 5:58 PM CDT Hospital Encounter [facility] Care Interventional Unit [address] [address] Mylene Gutierrez MD [address] [facility] [address] [address] -x0 (Work) Cervical stenosis of spine Discharge Disposition: Rehab Facility IP Social History Tobacco Use Types Packs/Day Years Used Date Smoking Tobacco: Former Cigarettes 1 4 - 1988 Smokeless Tobacco: Never [...] Sign Reading Time Taken Comments Blood Pressure 175/97 03/03/2017 1:50 PM CDT Pulse 96 03/03/2017 1:50 PM CDT Temperature 36.7 ??C (98.1 ??F) 03/03/2017 12:13 PM C DT Respiratory Rate 18 03/03/2017 1:50 PM CDT Oxygen Saturation 100% 03/03/2017 1:50 PM CDT Inhaled Oxygen Concentration - - Weight 59 kg (130 lb) 02/28/2017 7:00 PM CDT Height - - Body Mass Index 23.03 02/16/2017 10:49 AM CDT documented in this encounter Discharge Summaries * Dinh Mahmood MD - 03/02/2017 6:57 AM CDT DISCHARGE MEDICATIONS AT TRANSITION OF CARE Kaitlin Bond 66 y.o. female 1950 CSN: [id number] Date of Admission: 02/28/2017 Document Creation Date: 03/02/2017 LOS: 0 days PCP: Veronicac, External Provider Allergies Allergen Reactions ??? Adhesive Rash ??? Gadolinium-Containing Contrast Media Hives ??? Magnevist [Gadopentetate Dimeglumine] Hives Discharge Diagnoses: No problems updated. Weight: 59 kg (130 lb) (02/28/17 1900) estimated creatinine clearance is 44.5 mL/min (by C-G formula based on SCr of 1 mg/dL). Medication List START taking these medications acetaminophen 325 mg tablet Commonly known as: TYLENOL Take 2 Tablets (650 mg) by mouth every 4 hours as needed for Pain. Signed by: ZEHRA Zuniga Refills: 0 enoxaparin 40 mg/0.4 mL injection Commonly known as: LOVENOX Inject 0.4 mL (40 mg) by subcutaneous injection every 24 hours. Signed by: ZEHRA Zuniga Refills: 0 CONTINUE taking these medications atorvastatin 20 mg tablet Commonly known as: LIPITOR Take 20 mg by mouth late in the day. Refills: 0 CALTRATE 600 + D 600 mg (1,500 mg)-800 unit Tablet, Chewable tablet Take by mouth daily. Refills: 0 Generic drug: calcium-cholecalciferol (D3) cyanocobalamin 100 mcg tablet Commonly known as: VITAMIN B-12 Take 100 mcg by mouth daily. Refills: 0 diazePAM 5 mg tablet Commonly known as: VALIUM Take 1 Tablet (5 mg) by mouth every 8 hours as needed for Spasm or Discomfort. Do not take with sleeping aid/Lunesta. Signed by: Mylene Gutierrez MD Quantity: 60 Tablet Refills: 0 DULoxetine 60 mg Capsule, Delayed Release(E.C.) Commonly known as: CYMBALTA Take 60 mg by mouth daily at bedtime. Refills: 0 FLUoxetine 40 mg capsule Commonly known as: PROzac Take 40 mg by mouth daily at bedtime. 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 Refills: 0 lisinopril 40 mg tablet Commonly known as: PRINIVIL Take 40 mg by mouth daily at bedtime. Refills: 0 LUNESTA 3 mg Tablet Take 5 mg by mouth nightly as needed for Insomnia. Refills: 0 Generic drug: eszopiclone omeprazole 40 mg Capsule, Delayed Release(E.C.) Commonly known as: PriLOSEC Take 40 mg by mouth daily. Refills: 0 oxyCODONE-acetaminophen 7.5-325 mg Tablet Commonly known as: PERCOCET Take 1 Tablet by mouth every 8 hours as needed for Pain, Moderate. Refills: 0 Where to Get Your Medications Information about where to get these medications is not yet available Ask your nurse or doctor about these medications ?? acetaminophen 325 mg tablet ?? enoxaparin 40 mg/0.4 mL injection Recent Labs: (Please note date of lab as some may be old) Lab Results Component Value Date/Time WBC 8.6 02/28/2017 12:31 PM HEMOGLOBIN 13.5 02/28/2017 12:31 PM HEMATOCRIT 40.9 02/28/2017 12:31 PM PLATELETS 588 (H) 02/28/2017 12:31 PM SODIUM 132 (L) 02/28/2017 12:35 PM POTASSIUM 3.8 02/28/2017 12:35 PM CO2 30 (H) 02/28/2017 12:35 PM BUN 8 02/28/2017 12:35 PM CREATININE 0.62 02/28/2017 12:35 PM GLUCOSE 111 (H) 02/28/2017 12:35 PM ?? This list contains medications that require special monitoring (such as Coumadin): not applicable ?? If this patient is on IV medications, those are included with dose, freq, route, and stop date: not applicable ?? All medications that will end have stop dates in place (antibiotics, etc): not applicable ?? All insulins have dose, route, frequency and time as well as appropriate scales: not applicable I certify that I have reviewed the medications, that each medication has a discrete dose, frequency, and route, and that they are accurate. Duplicates, if they exist, are intentional and initialed to certify their accuracy. All insulin regimens and anticoagulants, if present, are correct and initialed to certify their accuracy. Signed: Dinh Mahmood MD [facility] Office Number: [phone] Coat Presser Pager Number: [phone] 03/02/2017, 6:57 AM documented in this encounter Discharge Instructions * Discharge Instructions* Jayne Lovell - 03/03/2017 5:[address] Gutierrez's office ([phone]) in the next 1-2 business days to make your follow up appt for 3 wks. Okay to shower and get incision wet daily. No strenuous activity, (i.e. No lifting greater than 5 pounds.) Avoid excessive bending/twisting atthe waist' Please call the office for any signs or symptoms of infection: temperature greater than 101; chills; nausea/vomiting; purulent or foul-smelling drainage; increase in redness, swelling, or pain not relieved by pain medications. documented in this encounter Medications at Time of Discharge Medication Sig Dispensed Refills Start Date End Date acetaminophen (TYLENOL) 325 mg tablet Take 2 Tablets (650 mg) by mouth every 4 hours as needed for Pain. 03/01/2017 omeprazole (PriLOSEC) 40 mg Capsule, Delayed Release(E.C.) Take 40 mg by mouth 2 times daily. 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 atorvastatin (LIPITOR) 20 mg tablet Take [...] unit) chewable tablet Take by mouth daily. docusate sodium (COLACE) 100 mg capsule [...] Contact PCP for refills. 90 Tablet 03/14/2017 eszopiclone 3 mg tablet Take 5 mg by mouth nightly as needed for Insomnia. amLODIPine (NORVASC) 10 mg tablet Take 1 Tablet by mouth daily. 30 Tablet 03/04/2017 04/03/2017 oxyCODONE-acetaminoph en (PERCOCET) 7.5-325 mg Tablet Take 1 Tablet by mouth every 8 hours as needed for Pain, Moderate. Max Daily Amount: 3 Tablets 60 Tablet 03/03/2017 03/14/2017 enoxaparin (LOVENOX) 40 mg/0.4 mL injection Inject 0.4 mL (40 mg) by subcutaneous injection every 24 hours. 0 03/01/2017 03/14/2017 diazePAM (VALIUM) 5 mg tablet Take 1 Tablet (5 mg) by mouth every 8 hours as needed for Spasm or Discomfort. Do not take with sleeping aid/Lunesta. 60 Tablet 02/17/2017 03/14/2017 oxyCODONE-acetaminoph en (PERCOCET) 5-325 mg tablet Take 1 Tablet by mouth every 4 hours as needed for Pain, Moderate. Max Daily Amount: 6 Tablets 30 Tablet 03/14/2017 11/16/2017 documented as of this encounter Progress Notes * Jayne Lovell - 03/03/2017 5:12 PM CDT Telephone report given to LOGAN Cruz at [facility] ([phone]). * Kaitlin Cartwright RN - 03/03/2017 3:50 PM CDT 03/03/17 1500 Discharge Planning Plan Discharge To Rehabilitation unit Information Given Concerning Criteria for rehabilitation Final Discharge Arrangements Anticipated Discharge Disposition Rehab Care Facility Name [facility] Contact Name [facility] Phone Number [phone] Transportation Provider [facility] Transportation Contact Name [facility] Transportation Provider Phone [phone] Date Of Pick-Up 03/03/17 Time Of Pick-Up 1800 * Elaine Dubon PA - 03/03/2017 3:45 PM CDT NSGY note Rehab approved by insurance. Orders reconciled. Okay to dc this afternoon. * Dinh Mahmood MD - 03/03/2017 3:28 PM CDT [facility] Adult Progress Note Admit Date: 02/28/2017 Date of Note: 03/03/2017, 3:28 PM LOS: 0 days Plan Active Problems: Falls - needs PT eval - MRI as per NSG ?? Cervical stenosis of spine - s/p C3-[address] Gutierrez on 02/16 - several falls since then admit for MRI and PT evals - Pt with reported Hx of Hives with Gadolinium contrast material. Will pre-medicate ?? 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 Acquired Hypothyroidism - cont synthroid ?? Depression - cont prozac and Cymbalta Chronic/Stable/Resolved Problems: Quality/Safety/Core Measures/Disposition Planning: DVT Prophylaxis - Enoxaparin PT POC Therapy Plan of Care: 2-5x/wk (03/01/17 0814) OT POC Therapy Plan of Care: 2-5x/wk (03/01/17 1335) Activity Order: Present Activity: in bed (03/03/17 0734) Whitman catheter:absent Current Code Status -Prior Plan discussed with patient, questions answered. Current Planned Disposition - Dispo: no objection to discharge from medical standpoint Subjective Previous history of present illness and review of systems have been reviewed today as documented inthe Consult on 02/28/2017; medications, labs, studies, notes, orders and consults have been reviewed. I have reviewed the notes from yesterday. Overnight no acute events Objective BP (!) 175/97 (BP Location: Right arm) Pulse 96 Temp 98.1 ??F (36.7 ??C) (Temporal) Resp 18 Wt 59 kg (130 lb) SpO2 100% ? No BMI 23.03 kg/m?? Temp (24hrs), Av.8 ??F (36.6 ??C), Min:96.8 ??F (36 ??C), Max:99.3 ??F (37.4 ??C) Exam: Gen alert, cooperative, no distress, appears stated age Lungs clear to auscultation bilaterally Heart regular rate and rhythm, S1, S2 normal, no murmur, click, rub or gallop Abdomen soft, non-tender. Bowel sounds normal. No masses, No organomegaly Extremities extremities normal, atraumatic, no cyanosis or edema Neuro AAOX3 speech appropriate gait not assessed strength normal sensation intact Data: I have reviewed all new labs and studies resulted and pertinent ones are noted below More than 25 min were spent in the care of this patient today; more than 50% was spent in discussion of expected course of disease, discussion of prognosis, discharge planning, coordination of care and discussion of lab and test results. Dinh Mahmood MD * Letty Shay PA - 03/03/2017 10:20 AM CDT Neurosurgery Progress Note Kaitlin Bond 1950 Hospital day: 0 Subjective: Continued frustration with insurance company States she will not go to SNF if rehab denied Active Hospital Problems Diagnosis ??? Fall ??? Essential hypertension ??? Depression ??? Cervical stenosis of spine Resolved Hospital Problems Diagnosis Date Resolved No resolved problems to display. Vitals: 03/02/17 2048 03/02/17 2233 03/03/17 0734 03/03/17 0948 BP: (!) 153/93 (!) 156/97 (!) 168/91 (!) 153/95 BP Location: Left arm Right arm Right arm Patient Position (BP): Supine Sitting Sitting Pulse: 96 81 84 88 Resp: 16 18 Temp: 97 ??F (36.1 ??C) 96.8 ??F (36 ??C) TempSrc: Temporal Temporal SpO2: 96% 96% 99% Weight: Lab Results Component Value Date/Time SODIUM 137 03/03/2017 04:03 AM POTASSIUM 4.3 03/03/2017 04:03 AM CHLORIDE 96 (L) 03/03/2017 04:03 AM CO2 31 (H) 03/03/2017 04:03 AM CALCIUM 8.9 03/03/2017 04:03 AM BUN 12 03/03/2017 04:03 AM CREATININE 0.67 03/03/2017 04:03 AM GLUCOSE 89 03/03/2017 04:03 AM ANION GAP 10 03/03/2017 04:03 AM Lab Results Component Value Date/Time WBC 8.6 02/28/2017 12:31 PM HEMOGLOBIN 13.5 02/28/2017 12:31 PM HEMATOCRIT 40.9 02/28/2017 12:31 PM PLATELETS 588 (H) 02/28/2017 12:31 PM MCV 90.7 02/28/2017 12:31 PM No results found for: INR, PT Physical Examination General: alert HEENT: Head: Normocephalic, no lesions, without obvious abnormality. Pulmonary: Even, unlabored Abdomen: soft : voiding without difficulty Extremities: without clubbing, cyanosis or edema Skin: no rashes Neurological exam: Mental status: Alert, oriented, thought content appropriate Motor: LUTZ FC x 4, RLE 4/5 diffusely Impression: 66 y.o. female frequent falls s/p ACDF, myelopathy Plan: dispo planning. Peer to peer pending for rehab. Pt refusing SNF if rehab denied SW following D/c hopefully today Letty Shay PA-C Pgr: [phone] Associated attestation - Mylene Gutierrez MD - 03/03/2017 6:35 PM CDT Patient would be excellent candidate for Rehab as determined by PT and on our assessment. Insuranceis still the hold up on the getting patient care she needs. * Sarah Tom RN - 03/03/2017 5:57 AM CDT Quiet noc. Slept well. NO c/o pain. Glen po well. States has numbness in lower extremities. 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 No c/o numbness in upper extremities. * Jocy Shay PA - 03/02/2017 4:34 PM CDT just notified by rehab that it was denied for acute rehab. Called to schedule a peer to peer ref #[id number] and left a message. Will attempt to do peer to peer tomorrow but if not will have pt start looking at SNF options and if rehab peer to peer denied will plan on SNF tomorrow. * Andreina Bowman - 03/02/2017 4:11 PM CDT Patient denied for inpatient rehab. Notified NSGY PA with peer to peer number. Will follow. * Jocy Shay PA - 03/02/2017 10:49 AM CDT Neurosurgery Progress Note Ready for rehab, frustrated with insurance company Active Hospital Problems Diagnosis ??? Fall ??? Essential hypertension ??? Depression ??? Cervical stenosis of spine Resolved Hospital Problems Diagnosis Date Resolved No resolved problems to display. Vitals: 03/01/17 1525 03/01/17 2115 03/01/17 2116 03/02/17 0805 BP: (!) 150/83 (!) 167/107 (!) 142/92 (!) 147/92 BP Location: Right arm Right arm Right arm Left arm Patient Position (BP): Supine Sitting Pulse: 99 90 97 Resp: 14 16 16 Temp: 98.2 ??F (36.8 ??C) 98.2 ??F (36.8 ??C) 98.6 ??F (37 ??C) TempSrc: Temporal Temporal Temporal SpO2: 95% 97% 99% Weight: PE: Awake, Alert, Ox3. PERRL. Speech intact. Follows all commands. Moves all extremities full/symmetric. Sensory intact to LT. Strength 5/5 except right LE is 4/5 diffusely. Incision is clean/dry/intact-healing well Recent Labs 02/28/17 1231 02/28/17 1235 WBC 8.6 -- HGB 13.5 -- HCT 40.9 -- PLT 588* -- NA -- 132* K -- 3.8 CL -- 91* CO2 -- 30* BUN -- 8 CREAT -- 0.62 GLUCOSE -- 111* Impression/Plan: OKay to dc to rehab when arranged. Pt requires this stay for accessment and workup of frequent falls and pt needs inpt rehab to improve strenght to prevent falls. Paperwork in chart Jocy Shay PA-C Pgr: [phone] Associated attestation - Mylene Gutierrez MD - 03/02/2017 12:05 PM CDT As patient was admitted for falls and weakness after a cervical spine surgery, the admission was indicated. * Apoorva Mcallister RN - 03/02/2017 6:40 AM CDT Patient slept well with no complaints. Turns & repositions self. Ambulates with one person assist, using gait belt & walker. States she has had multiple falls at home & is concerned for her safety due to ambulation difficulties. Patient desires to go to Rehab for physical therapy & strengthening. * Dinh Mahmood MD - 03/01/2017 2:30 PM CDT [facility] Adult Progress Note Admit Date: 02/28/2017 Date of Note: 03/01/2017, 2:30 PM LOS: 1 day Plan Active Problems: Falls - needs PT eval - MRI as per NSG ?? Cervical stenosis of spine - s/p C3-[address] Gutierrez on 02/16 - several falls since then admit for MRI and PT evals - Pt with reported Hx of Hives with Gadolinium contrast material. Will pre-medicate ?? 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 Acquired Hypothyroidism ?? Depression - cont prozac and Cymbalta Chronic/Stable/Resolved Problems: Quality/Safety/Core Measures/Disposition Planning: DVT Prophylaxis - Enoxaparin PT POC Therapy Plan of Care: 2-5x/wk (03/01/17 0814) OT POC Therapy Plan of Care: 2-5x/wk (03/01/17 1335) Activity Order: Present Activity: ambulated (03/01/17 08) Whitman catheter:absent Current Code Status -Prior Plan discussed with patient, questions answered. Current Planned Disposition - Dispo: acute rehab vs SNF. Subjective Previous history of present illness and review of systems have been reviewed today as documented inthe Consult on 02/28/2017; medications, labs, studies, notes, orders and consults have been reviewed. I have reviewed the notes from yesterday. Overnight no acute events Objective BP 134/81 (BP Location: Right arm, Patient Position (BP): Supine) Pulse 90 Temp 97.9 ??F (36.6 ??C) (Temporal) Resp 18 Wt 59 kg (130 lb) SpO2 98% ? No BMI 23.03 kg/m?? Temp(24hrs), Av.4 ??F (36.9 ??C), Min:97.3 ??F (36.3 ??C), Max:99 ??F (37.2 ??C) Exam: Gen alert, cooperative, no distress, appears stated age Lungs clear to auscultation bilaterally Heart regular rate and rhythm, S1, S2 normal, no murmur, click, rub or gallop Abdomen soft, non-tender. Bowel sounds normal. No masses, No organomegaly Extremities extremities normal, atraumatic, no cyanosis or edema Neuro AAOX3 speech appropriate gait not assessed strength normal sensation intact Data: I have reviewed all new labs and studies resulted and pertinent ones are noted below More than 25 min were spent in the care of this patient today; more than 50% was spent in discussion of expected course of disease, discussion of prognosis, discharge planning, coordination of care and discussion of lab and test results. Dinh Mahmood MD * Elaine Dubon PA - 03/01/2017 12:55 PM CDT Neurosurgery Progress Note Patient is tearful, worried she's going to keep falling if she goes home. Minimal neck pain, no newsymptoms. Active Hospital Problems Diagnosis ??? Essential hypertension ??? Depression ??? Cervical stenosis of spine Resolved Hospital Problems Diagnosis Date Resolved No resolved problems to display. Vitals: 02/28/17 2103 02/28/17 2256 03/01/17 0500 03/01/17 0729 BP: (!) 154/101 (!) 143/86 133/75 134/81 BP Location: Right arm Right arm Right arm Right arm Patient Position (BP): Supine Supine Pulse: 99 98 95 90 Resp: 18 16 18 Temp: 98.4 ??F (36.9 ??C) 97.3 ??F (36.3 ??C) 97.9 ??F (36.6 ??C) TempSrc: Temporal Temporal Temporal SpO2: 95% 96% 90% 98% Weight: PE: Awake, Alert, Ox3. PERRL. Speech intact. Follows all commands. Moves all extremities full/symmetric. Sensory intact to LT. Strength 5/5 except right LE is 4/5 diffusely. Incision is clean/dry/intact-healing well Recent Labs 02/28/17 1231 02/28/17 1235 WBC 8.6 -- HGB 13.5 -- HCT 40.9 -- PLT 588* -- NA -- 132* K -- 3.8 CL -- 91* CO2 -- 30* BUN -- 8 CREAT -- 0.62 GLUCOSE -- 111* Impression/Plan: MRI of C spine reviewed and unremarkable other than post-op changes at C3-4. Patient without complications from contrast/pre-treated prior. PT notes recommend post-acute rehab, patient at high risk for falls with ongoing myelpathy. Will consult Rehab. Need OT evaluation - ordered and dept notified. Will fill out rehab paperwork in anticipation of dc - ready from our standpoint. Elaine Dubon PA-C Pgr: [phone] Associated attestation - Mylene Gutierrez MD - 03/01/2017 8:02 PM CDT I have reviewed above and agree. I have personally seen and examined patient. MRI does not show any type of contusion. No etiology for patient feeling that symptoms are worsening. Agree with inpatient facility * Jayne Lovell - 03/01/2017 10:10 AM CDT Flu vaccine requested by patient; ordered from pharmacy; flu vaccine information statement given topatient; patient verbalized understanding. * Alexa Carreno RN - 02/28/2017 4:42 PM CDT Pt given Benadryl,Solu-Medrol and Pepcid as pre-medications before MRI due to her allergy.MRI department called and notified. * Nina Jones RN - 02/28/2017 12:42 PM CDT Images from the original note were not included. [facility] ACCESS INITIAL EVALUATION NAME: Kaitlin Bond DATE: 02/28/2017 TIME: 12:42 PM Kaitlin Bond is a 66 y.o. female seen by the [facility] as a direct admit. Kaitlin was assessed in the [facility] office. Kaitlin's assessment does meet parameters for requested level of care. Patient hypertensive on admission. Had not taken medication. Discussed with accepting RN Zaina Report given to Zaina at bedside Patient transported to assigned room by [facility]. Nina Jones RN [facility] Department [facility] [phone] documented in this encounter H&P Notes * Jocy Shay PA - 02/28/2017 12:33 PM CDT [place], [place] [address] Neurosurgery Consult Patient Name: Kaitlin Bond : [id number] Date of Service: 02/28/2017 Date of Admission: 02/28/2017 Admitting Physician: Mylene Gutierrez MD Chief Complain / History of Present Illness: Kaitlin is a 66 y.o. female who was admitted to the hospital on February 28 2017 by Mylene Gutierrez MD in regards to falls. Pt had C3/[address] Gutierrez on 02/16. Since surgery pt has been falling and states she is having a hard time walking and getting around. She was seen in office today and decided to admit for MRI cervical spine and thearpy evals. Past Medical History: Diagnosis Date ??? Anxiety ??? Arthritis ??? At risk for obstructive sleep apnea 3 ??? Depression ??? Dyspnea on exertion ??? GERD (gastroesophageal reflux disease) ??? History of complications due to general anesthesia takes a while to wake up ??? HTN (hypertension) ??? Hyperlipidemia ??? Hypothyroidism ??? Injury of back from a fall ??? Motion sickness ??? Neuropathy ??? Post-operative nausea and vomiting ??? PUD (peptic ulcer disease) ??? Temporomandibular joint disorder Past Surgical History: Procedure Laterality Date ??? HX HYSTERECTOMY ??? HX SPINAL SURGERY lumbar fusion 2013, cervical 1991 ??? HX TUBAL LIGATION ??? KYPHOPLASTY, LUMBAR 2017 ??? ND CERV SPINE FUSN,ANTER,BELOW C2 N/A 02/16/2017 CERVICAL DISCECTOMY FUSION 1 LEVEL ANTERIOR, C3-4 performed by Mylene Gutierrez MD at [facility] No current facility-administered medications on file prior to encounter. Current Outpatient Prescriptions on File Prior to Encounter Medication Sig Dispense Refill ??? diazePAM (VALIUM) 5 mg tablet Take 1 Tablet (5 mg) by mouth every 8 hours as needed for Spasm or Discomfort. Do not take with sleeping aid/Lunesta. 60 Tablet 0 ??? omeprazole (PriLOSEC) 40 mg Capsule, Delayed Release(E.C.) Take 40 mg by mouth daily. ??? 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 ??? atorvastatin (LIPITOR) 20 mg tablet Take 20 mg by mouth late in the day. ??? lisinopril (PRINIVIL) 40 mg tablet Take 40 mg by mouth daily at bedtime. ??? FLUoxetine (PROzac) 40 mg capsule Take 40 mg by mouth daily at bedtime. ??? DULoxetine (CYMBALTA) 60 mg Capsule, Delayed Release(E.C.) Take 60 mg by mouth daily at bedtime. ??? oxyCODONE-acetaminophen (PERCOCET) 7.5-325 mg Tablet Take 1 Tablet by mouth every 8 hours as needed for Pain, Moderate. ??? cyanocobalamin (VITAMIN B-12) 100 mcg tablet Take 100 mcg by mouth daily. ??? calcium-cholecalciferol, D3, (CALTRATE 600 + D) 600 mg (1,500 mg)-800 unit Tablet, Chewable tablet Take by mouth daily. ??? eszopiclone (LUNESTA) 3 mg Tablet Take 5 mg by mouth nightly as needed for Insomnia. Allergies Allergen Reactions ??? Adhesive Rash Social History Social History ??? Marital status: Spouse name: N/A ??? Number of children: N/A ??? Years of education: N/A Occupational History ??? Not on file. Social History Main Topics ??? Smoking status: Former Smoker Years: 5.00 Types: Cigarettes Quit date: 1988 ??? Smokeless tobacco: Never Used Comment: 4 per day ??? Alcohol use Yes Comment: 1-2 times per month 1 drink ??? Drug use: No ??? Sexual activity: Not on file Other Topics Concern ??? Not on file Social History Narrative ??? No narrative on file No family history on file. There are no hospital problems to display for this patient. 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 Cardiovascular: Patient denies chest pain, edema??or palpitations Respiratory: patient denies any shortness of breath, cough, sputum production GI: patient denies any nausea, vomiting, diarrhea, constipation or abdominal pain : negative Muskuloskeletal: negative for muscular disease, arthritis & joint pain Integumentary: negative for skin rashes or unusual skin lesions abrasion, laceration Endocrine: patient denies polydipsia, polyphasia or nervousness. Psychiatric: negative Physical Exam: Blood pressure (!) 155/94, pulse 100, temperature 98.2 ??F (36.8 ??C), temperature source Temporal,SpO2 100 %, not currently . Constitutional: Appears well, no distress HEENT: Head: Normocephalic, no lesions, without obvious abnormality. Neck: normal Cardiovascular: Normal - Regular rate and rhythm Respiratory: no accessory muscle use even/unlabored Gastrointestinal: soft Genitourinary: voiding without difficulty Musculoskeletal: Normal Integumentary: no rashes, no wounds Psychiatric: appropriate to circumstances Neurological exam Mental status: Patient is Alert, Oriented to person/place/year, word finding is intact, repetition is intact. Patient follows 2 step commands. Cranial nerves: visual barrios were full to confrontation; pupils were equal and reactive to light; versions were full without nystagmus; facial sensation was full; eye closure and smile were symmetric; no dysarthria was appreciated; palate elevated symmetrically; shoulder shrug was symmetric; tongue protruded midline. Motor: No pronator drift, Power was full throughout upper and lower extremities except right leg 4/5 diffusely Sensory: Intact to LT Reflexes: Hyperreflexic, Plantar responses were mute bilaterally, Clonus was not present, Livingston'ssign absent Data: No results for input(s): WBC, HGB, HCT, PLT, NA, K, CL, CO2, BUN, CREAT, GLUCOSE, ALT, AST, CPK, CKMB, TROPONIN, TROPONIINT, TROPINTR, INR in the last 72 hours. Imaging Studies: MRI ordered- pending Assessment and Plan: 66 y.o. female frequent falls s/p ACDF, myelopathy PT/OT evals Hospitalist for medical management MRI cervical spine Jocy Shay, [facility] Pgr: [phone] Attending: Dr. Gutierrez Associated attestation - Mylene Gutierrez MD - 02/28/2017 3:55 PM CDT Patient seen in office today with worsening balance and falls since surgery. Will admit to hospitalto work up etiology. During her stay will get PT/OT for evaluation for needs and safety of returning to home. documented in this encounter Consult Notes * Dinh Mahmood MD - 02/28/2017 3:36 PM CDTAssociated Order(s): IP CONSULT TO HOSPITALIST Images from the original note were not included. [facility] Internal Medicine Consult Dinh Mahmood MD 02/28/2017 3:36 PM Patient Name: Kaitlin Bond Admit Date: 02/28/2017 [facility]CP: [facility], External Provider Consult requested by Mylene Juan MD Patient Name: Kaitlin Bond PCP: [facility], External Provider Date of admission: 02/28/2017 Date of Service: 02/28/2017 Assessment and Plan: Falls - needs PT eval - MRI as per NSG Cervical stenosis of spine - s/p C3-[address] Gutierrez on 02/16 - several falls since then admit for MRI and PT evals - Pt with reported Hx of Hives with Gadolinium contrast material. 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 Cont Cymbalta Home Meds DVT Prophylaxis Enoxaparin GI prophylaxis: not indicated Code Status Prior Reason for Consultation: medical mgmt HPI: Patient is a 66 y.o. F with PMHx Arthritis, Anxiety, Depression, Cervical Stenosis, GERD, HTN,Peripheral neuropathy presented for evaluation of falls./ Pt s/p recent ACDF C3/4 for cervical stenosis. No prodrome preceeds falls. Pt states she is very unsteady even with walker. Notes usually falls back and to the L. No mention of chest pain palpitations light headedness, dizziness nausea or vomiting. Pt otherwise in her USOH PMHx: Past Medical History: Diagnosis Date ??? Anxiety ??? Arthritis ??? At risk for obstructive sleep apnea 3 ??? Depression ??? Dyspnea on exertion ??? GERD (gastroesophageal reflux disease) ??? History of complications due to general anesthesia takes a while to wake up ??? HTN (hypertension) ??? Hyperlipidemia ??? Hypothyroidism ??? Injury of back from a fall ??? Motion sickness ??? Neuropathy ??? Post-operative nausea and vomiting ??? PUD (peptic ulcer disease) ??? Temporomandibular joint disorder PSurgHx: Past Surgical History: Procedure Laterality Date ??? HX HYSTERECTOMY ??? HX SPINAL SURGERY lumbar fusion 2013, cervical 1991 ??? HX TUBAL LIGATION ??? KYPHOPLASTY, LUMBAR 2017 ??? ND CERV SPINE FUSN,ANTER,BELOW C2 N/A 02/16/2017 CERVICAL DISCECTOMY FUSION 1 LEVEL ANTERIOR, C3-4 performed by Mylene Gutierrez MD at [facility] Outpt Meds: Prior to Admission Medications Prescriptions Last Dose Informant Patient Reported? Taking? DULoxetine (CYMBALTA) 60 mg Capsule, Delayed Release(E.C.) Past Week at Unknown time Yes Yes Sig: Take 60 mg by mouth daily at bedtime. FLUoxetine (PROzac) 40 mg capsule Past Week at Unknown time Yes Yes Sig: Take 40 mg by mouth daily at bedtime. atorvastatin (LIPITOR) 20 mg tablet Past Week at Unknown time Yes Yes Sig: Take 20 mg by mouth late in the day. calcium-cholecalciferol, D3, (CALTRATE 600 + D) 600 mg (1,500 mg)-800 unit Tablet, Chewable tablet Past Week at Unknown time Yes Yes Sig: Take by mouth daily. cyanocobalamin (VITAMIN B-12) 100 mcg tablet 02/27/2017 at 0900 Yes Yes Sig: Take 100 mcg by mouth daily. diazePAM (VALIUM) 5 mg tablet 02/28/2017 at 0730 No Yes Sig: Take 1 Tablet (5 mg) by mouth every 8 hours as needed for Spasm or Discomfort. Do not take with sleeping aid/Lunesta. eszopiclone (LUNESTA) 3 mg Tablet Unknown at Unknown time Yes No Sig: Take 5 mg by mouth nightly as needed for Insomnia. 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 lisinopril (PRINIVIL) 40 mg tablet Past Week at Unknown time Yes Yes Sig: Take 40 mg by mouth daily at bedtime. omeprazole (PriLOSEC) 40 mg Capsule, Delayed Release(E.C.) 02/27/2017 at 0730 Yes Yes Sig: Take 40 mg by mouth daily. oxyCODONE-acetaminophen (PERCOCET) 7.5-325 mg Tablet 02/28/2017 at 0730 Yes Yes Sig: Take 1 Tablet by mouth every 8 hours as needed for Pain, Moderate. Facility-Administered Medications: None All: Allergies Allergen Reactions ??? Adhesive Rash ??? Gadolinium-Containing Contrast Media Hives ??? Magnevist [Gadopentetate Dimeglumine] Hives FamHx: No family history on file. SocHx: Social History Substance Use Topics ??? Smoking status: Former Smoker Years: 5.00 Types: Cigarettes Quit date: 1988 ??? Smokeless tobacco: Never Used Comment: 4 per day ??? Alcohol use Yes Comment: 1-2 times per month 1 drink Review of Systems History from chart review and the patient General negative for weight changes, fever ENT negative for nasal congestion, drainage or bleeding, sore throat, dysphagia or ear pain Heme/Lymph negative for swollen glands or abnormal bleeding Endocrine negative for polyuria/polydipsia or new changes in weight CV negative for chest pain or dyspnea on exertion Respiratory negative for cough, shortness of breath, or wheezing GI negative for reflux, abdominal pain, change in bowel habits, or black or bloody stools negative for dysuria, trouble voiding, or hematuria MS positive for - pain in hip - left, L ribs, thigh - left Neuro negative for TIA or stroke symptoms Derm negative for skin rashes or unusual skin lesions All Other ROS Negative BP (!) 144/87 (BP Location: Right arm, Patient Position (BP): Sitting) Pulse (!) 57 Temp 98.6 ??F (37 ??C) (Temporal) SpO2 98% ? No General appearance alert, cooperative, no distress, appears stated age Head Normocephalic, without obvious abnormality, atraumatic Eyes conjunctivae/corneas clear. PERRL, EOM's intact. Ears Normal external exam AU Nose Nares normal. Septum midline. Mucosa normal. No drainage or sinus tenderness. Throat Lips, mucosa, and tongue normal. Teeth and gums normal Neck supple, symmetrical, trachea midline, no adenopathy, thyroid: not enlarged, symmetric, no tenderness/mass/nodules, no carotid bruit and no JVD Back symmetric, no curvature. ROM normal. No CVA tenderness Lungs clear to auscultation bilaterally, no dullness to percussion, no wheezes or rales Chest wall no tenderness Heart regular rate and rhythm, S1, S2 normal, no murmur, click, rub or gallop Abdomen soft, non-tender. Bowel sounds normal. No masses, No organomegaly Extremities extremities normal, atraumatic, no cyanosis or edema Neurologic AAOX3 speech appropriate gait not assessed strength mildly reduced in UE blt but seems symmetric, moves all extremities well CBC: Recent Labs 02/28/17 1231 WBC 8.6 HGB 13.5 HCT 40.9 PLT 588* MCV 90.7 BMP:No results for input(s): GLUCOSE, BUN, CREAT, NA, K, CL, CO2, ANIONGAP, CA, MG, PO4 in the last72 hours. Recent Other Studies: N/A EKG: EKG not indicated today CXR: No results found for this or any previous visit. See recommendations above. Thank you for the courtesy of this consult. 45 minutes were spent in the care of this patient today; this may have included family conferences,nursing conferences and discussion with any consultants. Dinh Mahmood MD documented in this encounter Miscellaneous Notes * Care Plan - Rubina Rincon, Transporter Radiology - 03/03/2017 4:06 PM CDT Problem: Physical Mobility, Impaired Goal: Mobility goal: Improve transfer ability by discharge Patient will transfer supine to sit and bed to/from chair with modified independent. Outcome: Progressing Goal: Mobility goal: Improve ambulation by discharge Patient will ambulate 50 feet on level surface, using rolling walker assistive device, with modified independent so patient can navigate discharge environment. Outcome: Progressing Goal: Mobility goal: Ascend/descend stairs by discharge Patient will ascend/descend 2 steps with 1 handrails with modified independent for home/community mobility. Outcome: Progressing 03/03/17 1525 Pain Pain Management Interventions positioning Pain Assessment/Number Scale (1-10) Location neck;rib cage Pain Rating: Rest 7 Pain Rating: Activity 8 Pain Assessment/Number Scale (0-10) Response to Interventions content/relaxed PT Treatment Minutes Therapy Start Time 1525 Therapy Stop Time 1600 Total Treatment Time (min) 35 S: pt c/o pain l side ribs, neck O: Cognition/ Perception: Alert and oriented x 4 Weight Bearing: full Precautions: Fall, c spine Exercises: Bilateral LE AROM x 10 reps, supine Type: Supine Exercises: heel slides, ankle pumps, gluteal sets, hamstring sets, quad sets, hip abduction/adduction, short arc quads, Straight leg raises --LE ROM performed to increase ROM, increase strength to promote independence with functional mobility and gait. MOBILITY ASSESSMENT Bed Mobility: supine<>sit min a for upper body assist Transfers: sit<>stand min a for balance Gait: 200' w/ wwr min a for balance --Gait deviations: Decreased step length l le due to increased weakness r le, shuffling step, decreased step height b le's, l le drags at times Stairs: up and down 5 w/ b handrails min a for balance and safety Equipment Recommended at discharge: wwr Education: stairs Other: Sat edge of bed min a for balance falls left, bathroom transfer w/ wwr min a for balance, independent for hygiene, pt states her falls at home are due to her neuropathy, instructed to use visual input to compensate and make sure she is lifting her le's, instructed in exercise program to increase b le's strength Positioning after tx: pt repositioned in supine w/ bed alarm on, call light in reach, tray table inreach A: Response to treatment: Progressing towards goals Recommend: Post-Acute Facility Recommendations were made on today's assessment. Additional recommendations will be based on patient's progress in therapy. P: Continue daily PT 2-5x/wk at bedside for Transfer training, Gait training, Exercises, Balance training, unless change in status or patient is discharged from the facility. Plan of Care developed, as indicated by PT assessment and patient's current status. Please refer to plan of care for updates on goals. Zone #: [id number] * Care Plan - Reyna Larsen, Occupational Therapist - 03/03/2017 2:20 PM CDT Problem: Physical Mobility, Impaired Goal: Mobility goal: Improve transfer ability by discharge Patient will transfer to/from toilet with modified independent and tub with SBA with durable medical equipment as appropriate. Outcome: Progressing 03/03/17 1331 Pain Assessment/Number Scale (1-10) Pain Rating: Rest 0 Pain Rating: Activity 0 Occupational Therapy Minutes Therapy Start Time 1331 Therapy Stop Time 1343 Total Treatment Time (min) 12 S: Patient presents laying in bed. Agrees to therapy.Family present in room. O: Cognition/ Perception: Alert and able to follow commands Weight Bearing: No restrictions Precautions: Fall, Cervical Spinal FUNCTIONAL ACTIVITIES LE Dressing: SBA to don slippers at EOB, Pt requesting family complete it for her due to not beingsafe Pt okay to don shoes Functional mobility: SBA supine to sit, Min assist sit to stand, Min assist to ambulate 100 feet using WWR Pt needing verbal cues to look forward and take larger steps, Prior to returning to bed Pt stepping backwards with Min assist able to complete a few steps x2, SBA sit to supine Equipment Recommended at discharge: Ongoing assessment Education: OT plan of care Positioning after tx: Pt laying in bed with bed alarm intact. All needs within reach. RN call lightplaced within reach and RN aware. A: Response to treatment: Good participation and progress towards goals Recommend: Post-Acute Facility Recommendations were made on today's assessment. Additional recommendations will be based on patient's progress in therapy. P: Continue OT 2-5 times a week at bedside for: ADL Training, Functional Mobility Training, UE ROM/Strengthening, Patient Education, Cognition/Perception unless change in status or patient is discharged from the facility. Plan of Care developed, as indicated by OT assessment and patient's current status. Please refer to plan of care for updates on goals. Zone #: [id number] Problem: Self-Care Deficit Goal: Self care goal: Improve dressing ability by discharge Patient will require modified independent with lower extremity dressing with adaptive equipment as needed. Outcome: Progressing * Care Plan - Sarah Tom RN - 03/02/2017 11:17 PM CDT Day 1 ??? Patient, family, or healthcare designee is participating in individual care plan process Met ??? Patient, family, or healthcare designee understands side effects of medications Met Pain, Potential/Actual ??? Verbalizes/displays acceptable comfort level or baseline comfort level Progressing Physical Mobility, Impaired ??? Mobility goal: Improve transfer ability by discharge Progressing ??? Mobility goal: Improve ambulation by discharge Progressing ??? Mobility goal: Ascend/descend stairs by discharge Progressing ??? Mobility goal: Improve transfer ability by discharge Progressing * Care Plan - Sarah Tom RN - 03/02/2017 11:17 PM CDT Problem: Pain, Potential/Actual Goal: Verbalizes/displays acceptable comfort level or baseline comfort level Outcome: Progressing Problem: Infection Risk/Actual Goal: Infection Risk/Actual: Infection prevention, control, or resolution by discharge Outcome: Progressing Problem: Safety/Fall Goal: Safety/Fall: Absence of fall, injury, harm during hospitalization Outcome: Progressing Problem: Discharge Planning Goal: Identify discharge needs upon admission and through discharge Outcome: Progressing Problem: Physical Mobility, Impaired Goal: Mobility goal: Improve transfer ability by discharge Patient will transfer supine to sit and bed to/from chair with modified independent. Outcome: Progressing Goal: Mobility goal: Improve ambulation by discharge Patient will ambulate 50 feet on level surface, using rolling walker assistive device, with modified independent so patient can navigate discharge environment. Outcome: Progressing Goal: Mobility goal: Ascend/descend stairs by discharge Patient will ascend/descend 2 steps with 1 handrails with modified independent for home/community mobility. Outcome: Progressing Goal: Mobility goal: Improve transfer ability by discharge Patient will transfer to/from toilet with modified independent and tub with SBA with durable medical equipment as appropriate. Outcome: Progressing Problem: Self-Care Deficit Goal: Self care goal: Improve dressing ability by discharge Patient will require modified independent with lower extremity dressing with adaptive equipment as needed. Outcome: Progressing Problem: Cognitive/Perceptual/Neuro Goal: Achieve optimal cognitive/perceptual/neurological function by discharge or maintain baseline function Outcome: Progressing * Care Plan - Corrie Molina RN - 03/02/2017 6:47 PM CDT Discharge Planning ??? Identify discharge needs upon admission and through discharge Progressing CM met with patient and informed her that [facility] and [id number] review was initiated by . CM provided patient with list of SNFs. Patient upset and reluctant to be discharged to SNF. Stated that she will look at the the list . Corrie Molina RN, BSN Nurse Business Solutions Director [phone] * Care Plan - Kathy Serra, Occupational Therapist - 03/02/2017 2:10 PM CDT Problem: Physical Mobility, Impaired Goal: Mobility goal: Improve transfer ability by discharge Patient will transfer to/from toilet with modified independent and tub with SBA with durable medical equipment as appropriate. Outcome: Progressing Problem: Self-Care Deficit Goal: Self care goal: Improve dressing ability by discharge Patient will require modified independent with lower extremity dressing with adaptive equipment as needed. Outcome: Progressing 03/02/17 1341 Pain Assessment/Number Scale (1-10) Location rib cage Pain Rating: Rest 7 Pain Rating: Activity 7 Pain Pain Management Interventions unnecessary movement avoided;positioning Pain Assessment/Number Scale (0-10) Response to Interventions resting quietly Occupational Therapy Minutes Therapy Start Time 1341 Therapy Stop Time 1404 Total Treatment Time (min) 23 Comments: S: Patient agrees to therapy O: Cognition/ Perception: Alert, oriented, cooperative Weight Bearing: No restrictions Precautions: Fall; cervical spinal FUNCTIONAL ACTIVITIES Grooming: Min A for steadying to complete grooming standing at sink-one posterior loss of balance requiring mod A to regain balance LE Dressing: Set-up assist to don slippers seated EOB Toilet Transfer: Min A for toilet transfer, verbal and visual cues to navigate wwr and use grab bar Functional mobility: SBA supine to sit. Min A sit to stand. Min A to ambulate to toilet and then tosink with wwr. Min A to ambulate ~50' x [address] with wwr. Min A to ambulate to chair with wwr.Min A stand to sit in chair. Equipment Recommended at discharge: To be determined Education: Role of OT Positioning after tx: Pt seated in chair, chair alarm on, call light/phone in reach, all lines intact, RN aware Other: Pt's friend present A: Response to treatment: Pt tolerated session well, progressing toward goals Recommend: Post-Acute Facility Recommendations were made on today's assessment. Additional recommendations will be based on patient's progress in therapy. P: Continue OT 2-5 times a week at bedside for: ADL Training, Functional Mobility Training, UE ROM/Strengthening, Patient Education unless change in status or patient is discharged from the facility.Plan of Care developed, as indicated by OT assessment and patient's current status. Please refer to plan of care for updates on goals. Zone #: [id number] * Care Plan - Mylene Che, RN - 03/01/2017 6:50 PM CDT Discharge Planning ??? Identify discharge needs upon admission and through discharge Progressing Initial Discharge Planning Assessment completed. Introductory Care Management letter given. Care Management visited with patient, and discussed Care Management role and discharge planning. Prior to admission, patient's functional level needed assistance with all care. Ambulated with WWR. Prior to admission, patient resided with at 1 story house with 1 step to enter. Prior to admission, patient received assistance from with all care including activities of daily living, cooking and cleaning, and had no services in home. Durable medical equipment at home includes cane and WWR. Patient has had a stay at an acute care hospital in the last 30 days. Readmission Risk (patient becomes high risk with a score of 8 or greater) 0 Total Score Primary Emergency Contact: rishi bond [facility]CP [facility], External Provider. Patient's insurance verified as Payor: A[employer] / Plan: [employer] PFFS MEDICARE / Product Type: Medicare Managed Care / The patient's preferred pharmacy is [facility] in [place] OBS letter verbally reviewed with patient Discussed discharge goals and possible discharge needs including Rehab Vs SNF Patient choice for rehab is [facility]. Referral made. SNF lists given. Care Management contact information provided. Care Management will continue to follow and assist asneeded. Mylene Che RN/Lia Care Management [phone] * Therapy Evaluation - Janine Branch, Occupational Therapist - 03/01/2017 1:35 PM CDT Occupational Therapy order received, chart reviewed, and evaluation completed. Please see full evaluation below for details. Daily OT notes will be located in Care Plan notes. Thank You. OT INITIAL EVALUATION Diagnosis: multiple falls S/P C3/4 ACDF on 02/16/17 MD: Laurita SHAHID Activity Order: Up with assistance Weight Bearing Status: No restrictions Precautions: Fall; cervical spinal PMH: HTN, depression, HTN, HLD, neuropathy. Lumbar fusion 2013, cervical surgery 1991, lumbar kyphoplasty S: Patient reports 2/10 pain back and left ribs. Pt reports she has fallen 11 times at home (backward and to the left) following her recent neck fusion surgery. Pain intervention: Unneccessary movement avoided, Repositioned for comfort Response to pain intervention: Appeared content Living Situation/Functional Level CREDENTIALS SPECIALIST: Pt lives with in a 1 story house with 1 step to enter. Pt reports being independent with ambulation and ADLs typically. Pt reports worsening balance after neck surgery needing assist from to complete ADLs. Pt has been tub bathing. Pt reports using wwr, but has fallen 11 times at home; pt reports falling backwards and to the left. Home Equipment: Cane, wwr, tall toilet, grab bar in tub O: Appearance: 66 yr old female supine in bed on OT approach Vision: no complaints Cognition/Perception: Alert and follows commands UE ROM: WFL BUEs AROM Muscle Tone: WFL BUEs UE Strength:WFL BUEs with 4/5 freezer tunnel operator Coordination:Pt able to complete serial opposition functionally, but increased effort for containermanagement required. FUNCTIONAL ACTIVITIES ASSESSMENT: Feeding: Independent drink from cup Grooming: Min A dynamic standing for hand hygiene with wwr use LE Dressing: Mod A dynamic standing balance for clothing management pants and underwear past hips due to posterior losses of balance; SBA don slippers seated edge of bed. Toilet Transfer: Mod A backing to approach commode due to loss of balance backward with wwr support. Toileting: Mod A for dynamic standing for clothing management; pt able to complete self hygiene seated with SBA. Functional Mobility: SBA logrolling and supine to sit. Good static supported sitting balance; SBA dynamic sitting. Pt ambulated 75 ft functional ambulation with wwr during OT session; shuffled steps as fatigues and slower miri; difficulty turning and backing and had moderate losses of balance backward and to the left x 3 occasions requiring moderate assist from therapist to recover with gait belt. Positioning after tx: Pt supine in bed with call light within reach and bed alarm in place after OT. Patient/Family Education: OT plan of care Equipment needed at DC: To be determined A: Disabilities: Decreased self care ADLs, decreased functional mobility skills,impaired standing balance, impaired fine motor skills, multiple falls, need for safety education dynamic standing compensations during ADLs, additional durable medical equipment training. Assessment: Pt will benefit from skilled OT to address above stated areas. EVALUATION COMPLEXITY: Low Complexity -These findings are based on patient's self reporting, therapist's objective findings and professional determinations. Recommend: Post-Acute Facility; would benefit from inpatient rehab program . Pt is able to tolerate3 hours of therapy. Recommendations were made on today's assessment. Additional recommendations will be based on patient's progress in therapy. P: OT to see patient: once daily at bedside 2-5x/wk Treatment: OT to see patient for: ADL Training, Functional Mobility Training, UE ROM/Strengthening,Patient Education Will continue therapy unless patient has a change in status or patient is discharged from the facility. --Patient involved in goal setting: yes Patient goals will be found in the Care Plan section of the medical chart. Zone #: [id number] * Therapy Evaluation - Richa Murray, Student Therapist - 03/01/2017 8:08 AM CDT Physical Therapy order received, chart reviewed, and evaluation completed. Please see full evaluation below for details. Daily PT notes will be located in Care Plan notes. Thank You. PT INITIAL EVALUATION Diagnosis: Falls s/p C3/4 ACDF on 02/16/2017 MD: Jocy Shay PA Activity Order: Up with assist Weight Bearing Status: Precautions: Fall, spine PMH: Anxiety, depression, HTN, HLD, neuropathy, lumbar fusion 2013, cervial [id number], kyphoplasty at lumbar. S: Patient reports 0/10 pain at rest and 8/10. at L.ribs during movement. Pain intervention: Unneccessary movement avoided, Repositioned for comfort, Premedicated for activity Response to pain intervention: rest relaxed , Verbalized no change in pain Living Situation/Functional Level CREDENTIALS SPECIALIST: Living in a one story house with . 1 step into the house without rail. 2 steps inside the house with both rails. Needs assist from for ADL's and used wwr for ambulation since 6 months ago due to lower back pain and decreased balance. After recent neck surgery on 02/16, pt stated her balance got worse and the back pain decreased. She always falls to the left and backwards. Home Equipment: cane, wwr. Backward, to left. O: Appearance: In bed. Cognition/Perception: A and O x 4. ROM: Bilateral Lower Extremity WFL Muscle Tone: WFL Strength: Right Lower Extremity Decreased: hip flex 3+/5, knee ext/flex 4/5, ankle DF 4/5, hip ext and ankle PF 4+/5 , L. LE WFL Sensation: decreased sensation at R. Bottom of foot and toes. MOBILITY ASSESSMENT: Bed Mobility: sup to sit with Min A due to pain at L. Ribs. Transfers: with wwr, sit to/from stand with Min A due to weakness of L. Leg and decreased balance. Gait: With wwr, ambulated 40 feet with Min to Mod A x1 due to decreased balance. --Gait Deviations: Decreased base of support and step length. Decreased clearance of right foot. Various R. Foot placement. Festination pattern. Hyperextended R. Knee in stance phase. Able to improvegait pattern with cues. Balance: Decreased in standing and ambulation. Stairs/Curb: Not assessed due to weakness of R. leg Patient/Family Education: PT plan of care. Spine. Pt. Understood. Other: Pt. Also mentioned her left hand shakes sometimes. Positioning after tx: Up in chair with chair alarm on. Call light in reach. A: Disabilities: impaired mobility due to decreased sensation, decreased strength and endurance, and decreased balance. Pain at L. Ribs. Assessment: Pt will benefit from skilled PT. Clinical Presentation: Stable and/or uncomplicated EVALUATION COMPLEXITY: Low Complexity -These findings are based on patient's self reporting, therapist's objective findings and professional determinations. Recommend: Post-Acute Facility Recommendations were made on today's assessment. Additional recommendations will be based on patient's progress in therapy. P: PT to see patient: once daily at bedside 2-5x/wk. Will continue therapy unless patient has a change in status or patient is discharged from the facility. Plan of Care developed, as indicated by PTassessment and patient's current status. Treatment Plan: Patient to be seen for Transfer training, Gait training, Exercises, Balance training Recommendations: For: Patient, Nursing --OOB to chair with chair alarm, ambulate in room or hallway, with assist Equipment needed at DC: none --Patient involved in goal setting: yes Patient goals will be found in the Care Plan section of the medical chart. Zone #: [id number] Associated attestation - Mackenzie Knott, Physical Therapist - 03/01/2017 10:12 AM CDT PT present for evaluation. I have reviewed & agree with all documentation & charges enteredby Richa Knott PT * Care Plan - Apoorva Mcallister RN - 02/28/2017 11:00 PM CDT Safety/Fall ??? Safety/Fall: Absence of fall, injury, harm during hospitalization Progressing Patient states she has had frequent fall at home. Patient ambulates with unsteady gait using walker, gait belt & one person assist. * Care Plan - Apoorva Mcallister RN - 02/28/2017 11:00 PM CDT Problem: Pain, Potential/Actual Goal: Verbalizes/displays acceptable comfort level or baseline comfort level Pain is well controlled with oral analgesics. * Treatment Plan - Dai Rendon RT - 02/28/2017 6:07 PM CDT IMAGING SERVICES- CT, MRI, and NUCLEAR MEDICINE MEDICATION and FLUSH PROTOCOL [facility] ORDERS ARE ENTERED ???PER PROTOCOL?? Enter the protocol in the patient???s electronic health record using [employer]: .imagingmedflushprotocol Communication Orders: o For ordered imaging procedures requiring intravenous access : ??? Initiate a peripheral IV, if not already in place, and discontinue IV prior to discharge (if outpatient). ??? Enter order if needed: Insert Peripheral IV Medication Orders: o Local Anesthetic for use to initiate IV ADULT ??? Lidocaine 4% (L.M.X.4) applied topically ONE TIME prior to IV catheter insertion PRN (L.M.X.4 %should be applied 15 minutes prior to procedure) PEDIATRIC ??? Lidocaine 4% (L.M.X.4) applied topically ONE TIME prior to IV catheter insertion PRN (apply 15 minutes prior to procedure) ??? Sucrose 24% (Tootsweet; Sweet-Ease) oral solution, 0.2mL given orally prior to IV catheter insertion (administer 1 - 2 minutes prior to procedure) o Sodium chloride 0.9% (normal saline) flush 10 mLs PRN for saline lock or medication administration. o For respiratory distress, initiate oxygen and/or increase O2 to maintain saturation greater than 90% Procedure Specific Medications: o Cystogram (CT Pelvis): Iopamidol (Isovue 300) 61%, diluted with 270mL of sterile NS. Mix solution of Isovue and NS in a sterile bowl. Clamp whitman catheter prior to instilling solution via catheter. ??? Instill up to 300mL of Isovue and NS solution into bladder via catheter, one time. o Hepatobiliary scan with ejection fraction : For immediate use - Sincalide (Kinevac) 0.02 mcg/kg IV, one time, diluted with NS to a total infused volume of 30 mLs. Infuse via an infusion device over 30 minutes. o Thyroid cancer Thyrogen injections : Thyrotropin Drew (Thyrogen) 0.9 mg deep IM every 24 hours for two doses. o Renal scan with Lasix : Furosemide (Lasix) 1 mg/kg one time IV push over 2 minutes. Maximum dose of 40mg. o Renal scan with Enalapril : Enalapril (Vasotec) 0.04 mg/kg (maxium of 2.5mg) IV one time IV. Dilute to 5mL total volume with normal saline and infuse via infusion device over 5 minutes. o Lymphoscintigraphy : ??? Tc99m(Technetcium 99) 0.2mL filtered sulfur colloid with 0.2mL lidocaine 1% and 0.6mL sodium chloride. Give 500uCi (0.5mL) subcutaneously, in divided doses, ONE TIME at specified site(s). ??? Lidocaine 4% (L.M.X.4) applied topically ONE TIME PRN to the site(s) of injection (L.M.X.4 % should be applied 15 minutes prior to procedure). CT ORAL CONTRAST PROTOCOLS FOR ADULTS ??? Use Iohexol (Omnipaque) 240 mg/mL for CT scan unless patient has a documented allergy to contrast dye. ??? If allergy present, use Barium Sulfate (EZ Paque or Vanilla SILQ) for procedure. ??? If at any time the Therapist Speech has a question about which option to administer, seek clarification from a Radiologist. o Iohexol (Omnipaque) 240 mg/mL: 50ml added to 960mL of clear liquid of patients choice. Preferred route is oral. May use nasoenteric tube if needed. ??? Administer 900mL of the diluted Omnipaque 240, orally, one time only. o Barium Sulfate (EZ Paque /Vanilla Silq) 96% oral suspension: Preferred route is oral. May use nasoenteric tube if needed. ??? Administer 900mL of barium sulfate, orally, one time only. CT ORAL CONTRAST PROTOCOLS FOR PEDIATRICS Pediatrics = up to age 18 o Pediatric Radiologist will approve of one of the following products selected for procedure. ??? Barium Sulfate (EZ Paque /Vanilla Silq) 96% oral suspension: preferred route is oral. May use nasoenteric tube if needed. to 3 months Administer up to 90mL of Barium Sulfate, orally, one time only 4 months to 1 year old Administer up to 240mL of Barium sulfate , Orally, One Time Only 1 year old to 5 years old Administer up to 360mL of Barium sulfate , Orally, One Time Only 5 years old to 10 years old Administer up to 480mL of Barium sulfate , Orally, One Time Only Over 10 years old Administer up to 600mL of Barium sulfate , Orally, One Time Only ??? Iohexol (Omnipaque) 240 mg/mL oral solution ??? Dilute 25mL of iohexol with 480mL of clear liquid of patient???s choice. Administer the dilutedsolution per age as follows: Preferred route is orally. May use nasoenteric tube if needed. ??? Send any remaining diluted Iohexol solution with the pateint???s nurse to CT [place] Administer 45mL of diluted Iohexol oral solution, orally every 30 minutes x 2 doses. 1 month to 1 year old Administer 120mL of diluted Iohexol oral solution, orally every 30 min x 2 doses. 1 year old to 5 years old Administer 180mL of Iohexol orally every 30 min x 2 doses. 5 years old to 10 years old Administer 240mL of Iohexol orally every 30 min x 2 doses. Over 10 years old Administer 300mL of Iohexol orally every 30 min x [address] IV CONTRAST PROTOCOLS ADULTS: (If patient is less than 55kg and confirm dose with radiologist) o Iopadmidol (Isovue-300): Administer 2.2mL/kg (to MAX of 125mL) of Iopamidol 61%, intravenously, one time only PEDIATRICS: Use weight based dosing if patient is less than 55kg and confirm dose with radiologist. [place] to 15 years old Administer 2.2mL/kg (to MAX of 80 mL) of Iopamidol (Isovue-300) 61%, intravenously, one time only 15 years old and older Administer 2.2mL/kg (to MAX of 125mL) of Iopamidol (Isovue-300) 61%, intravenously, one time only MRI IV CONTRAST PROTOCOLS ADULTS: o Multihance is used for most MRIs. For Liver studies, contact Radiologist to determine use of one of the following: Gadobenate Dimeglumine (Multihance) (0.1mmol/0.2mL), Administer 0.1mmol/kg = 0.2mL/kg up to MAX of 30mL, intravenously, one time only OR Gadoxetate (Eovist) 2.5 mmol/10mL, Administer 0.025mmol/kg = 0.1mL/kg MAX of 15mL, intravenously, one time only PEDIATRICS: o Radiologist to determine need for contrast Term neonates up to 2 years: Gadobutrol (Gadavist) 1mmol/mL injection, Administer 0.1mmol/kg = 0.1mL/kg up to MAX of 14mmol = 14mL, intravenously, one time only 2 years and older Gadobenate Dimeglumine (Multihance) (0.1mmol/0.2mL), Administer 0.1mmol/kg = 0.2mL/kg up to MAX of 20mL, intravenously, one time only \ Initiating Department(s): 05/2013 Nuclear Medicine and Pharmacy Reviewed: 01/2014 ,08/2015, 08/2016; 11/2016 Revised: 01/2014, 06/2016, 08/2016; 11/2016 Approved by: Medical Executive Committee, Imaging Services, and Pharmacy & Therapeutics Committee Date: 11/2016 documented in this encounter Plan of Treatment Not on file documented as of this encounter Procedures Procedure Name Priority Date/Time Associated Diagnosis Comments BASIC METABOLIC PANEL Routine 03/03/2017 4:03 AM CDT MRI CERVICAL W WO CONTRAST Routine 02/28/2017 6:14 PM CDT EXTRA TUBE (GREEN) Routine 02/28/2017 12 :35 PM CDT EXTRA TUBE Routine 02/28/2017 12:35 PM CDT BASIC METABOLIC PANEL Add on 02/28/2017 12:35 PM CDT EXTRA TUBE (LAV) Routine 02/28/2017 12:3 1 PM CDT EXTRA TUBE Routine 02/28/2017 12:31 PM CDT CBC WITH DIFFERENTIAL Routine 02/28/2017 12:31 PM CDT documented in this encounter Results * (ABNORMAL) BASIC METABOLIC PANEL (03/03/2017 4:03 AM CDT) SODIUM 137 136 - 145 mmol/L 03/03/2017 5:02 AM CDT [facility] POTASSIUM 4.3 3.5 - 5.0 mmol/L 03/03/2017 5:02 AM CDT [facility] - [facility] CHLORIDE 96(L) 98 - 107 mmol/L 03/03/2017 5:02 AM T [facility] CO2 31(H) 22 - 29 mmol/L 03/03/2017 5:02 AM T [facility] - [facility] CALCIUM 8.9 8.6 - 10.2 mg/dL 03/03/2017 5:02 AM T [facility] - [facility] BUN 12 8 - 23 mg/dL 03/03/2017 5:02 AM T [facility] CREATININE 0.67 0.51 - 0.95 mg/dL 03/03/2017 5:02 AM CDT [facility] - . [facility] GLUCOSE 89 74 - 99 mg/dL 03/03/2017 5:02 AM CDT [facility] - . [facility] GFR >60 >=60 mL/min/1.7 3 sq meter 03/03/2017 5:02 AM CDT [facility] Comment: eGFR has not been validated for [...] refer to the GFR result. GFR, >60 >=60 mL/min/1.7 3 sq meter 03/03/2017 5:02 AM CDT [facility] ANION GAP 10 8 - 16 mmol/L 03/03/2017 5:02 AM CDT [facility] Blood Venipuncture / Unknown 03/03/2017 4:03 AM CDT 03/03/2017 4:14 AM CDT [facility] OLIVIA [facility]# [id number] [address] [place] [address] * MRI CERVICAL W WO CONTRAST (02/28/2017 6:14 PM CDT) Anatomical Region Laterality Modality Spine Magnetic Resonan ce 02/28/2017 6:39 PM CDT Addenda Addendum by Boom Paulino MD on 03/13/2017 7:03 AM RACKET STRINGER HISTORY: ?? Neck pain, followup fusion. Impressions 03/01/2017 1:32 PM CDT IMPRESSION: Bilateral C6-7 neural foraminal stenosis. Status post prior C4-5-6 fusion which appears solid. Recent C3-4 fusion. C3-4 stenosis felt to relate to anterolisthesis. Prevertebral increased water content compatible with recent postoperative state. Dictation location 1 [facility] Narrative 03/01/2017 1:32 PM CDT MR IMAGING OF CERVICAL SPINE WITH AND WITHOUT IV CONTRAST 02/28/2017 FINDINGS: The patient is noted to be status post remote fusion at the C4-5 and 6 level. There has been anterior cervical discectomy and fusion at the C3-4 level. This is evident on plain radiographs of 02/16/2017. There is some vertebral increased water content which may be an expected postoperative finding. Craniovertebral junction is normal. C1 level is normal. C1-2 articulation is normal. C2-3 has a mild disc bulge and mild stenosis. At C3-4 level there is severe stenosis. This is felt to be due to anterolisthesis at this level. C4 level is normal in AP diameter. C4-5 has mild disc bulge. C5 level is normal in AP diameter. C5-6 is without disc herniation or stenosis. C6 level is normal in AP diameter. C6-7 has bilateral uncovertebral joint spur formation and encroachment on neural foramina. C7 level is normal in AP diameter. C7-T1 is without disc herniation or stenosis. Procedure Note Boom Paulino MD - 03/01/2017 MR IMAGING OF CERVICAL SPINE WITH AND WITHOUT IV CONTRAST 02/28/2017 FINDINGS: The patient is noted to be status post remote fusion at the C4-5 and 6 level. There has been anterior cervical discectomy and fusion at the C3-4 level. This is evident on plain radiographs of 02/16/2017. There is some vertebral increased water content which may be an expected postoperative finding. Craniovertebral junction is normal. C1 level is normal. C1-2 articulation is normal. C2-3 has a mild disc bulge and mild stenosis. At C3-4 level there is severe stenosis. This is felt to be due to anterolisthesis at this level. C4 level is normal in AP diameter. C4-5 has mild disc bulge. C5 level is normal in AP diameter. C5-6 is without disc herniation or stenosis. C6 level is normal in AP diameter. C6-7 has bilateral uncovertebral joint spur formation and encroachment on neural foramina. C7 level is normal in AP diameter. C7-T1 is without disc herniation or stenosis. IMPRESSION: Bilateral C6-7 neural foraminal stenosis. Status post prior C4-5-6 fusion which appears solid. Recent C3-4 fusion. C3-4 stenosis felt to relate to anterolisthesis. Prevertebral increased water content compatible with recent postoperative state. Dictation location 1 [facility] Jocy SHAHID MR ORDERABLES * (ABNORMAL) BASIC METABOLIC PANEL (02/28/2017 12:35 PM CDT) SODIUM 132(L) 136 - 145 mmol/L 02/28/2017 3:40 PM CDT [facility] - . [facility] POTASSIUM 3.8 3.5 - 5.0 mmol/L 02/28/2017 3:40 PM CDT [facility] - . [facility] CHLORIDE 91(L) 98 - 107 mmol/L 02/28/2017 3:40 PM CDT [facility] - . [facility] CO2 30(H) 22 - 29 mmol/L 02/28/2017 3:40 PM CDT [facility] - . [facility] CALCIUM 9.7 8.6 - 10.2 mg/dL 02/28/2017 3:40 PM CDT [facility] - . [facility] BUN 8 8 - 23 mg/dL 02/28/2017 3:40 PM CDT [facility] - . [facility] CREATININE 0.62 0.51 - 0.95 mg/dL 02/28/2017 3:40 PM CDT [facility] - . [facility] GLUCOSE 111(H) 74 - 99 mg/dL 02/28/2017 3:40 PM CDT [facility] - [facility] GFR >60 >=60 mL/min/1.7 3 sq meter 02/28/2017 3:40 PM CDT [facility] - [facility] Comment: eGFR has not been validated for [...] refer to the GFR result. GFR, >60 >=60 mL/min/1.7 3 sq meter 02/28/2017 3:40 PM CDT [facility] - [facility] ANION GAP 11 8 - 16 mmol/L 02/28/2017 3:40 PM CDT [facility] - [facility] Blood Venipuncture / Unknown 02/28/2017 12:35 PM CDT 02/28/2017 12:35 PM CDT Dinh Mahmood MD CHEMISTRY ORDERABLES [facility] [employer] [facility]# [id number] [address] [place] [address] * EXTRA TUBE (GREEN) (02/28/2017 12:35 PM CDT) Blood Venipuncture / Unknown 02/28/2017 12:35 PM CDT 02/28/2017 12:35 PM CDT External Provider [facility] CHEMISTRY ORDERA BLES Performing Organization Address [facility] [address]/[facility] Co de Phone Number [facility] [employer] [facility]# [id number] [address] [place] [address] * (ABNORMAL) CBC WITH DIFFERENTIAL (02/28/2017 12:31 PM CDT) [facility] WBC 8.6 4.0 - 9.8 K/uL 02/28/2017 3:12 PM CDT [facility] - [facility] RBC 4.51 3.90 - 4.90 M/uL 02/28/2017 3:12 PM CDT [facility] - [facility] HEMOGLOBIN 13.5 11.8 - 14.8 g/dL 02/28/2017 3:12 PM CDT [facility] - [facility] HEMATOCRIT 40.9 35.5 - 44.0 % 02/28/2017 3:12 PM CDT [facility] - [facility] MCV 90.7 82.0 - 99.0 fL 02/28/2017 3:12 PM CDT [facility] - [facility] MCH 29.9 27.2 - 32.6 pg 02/28/2017 3:12 PM CDT [facility] - [facility] MCHC 33.0 31.5 - 35.5 g/dL 02/28/2017 3:12 PM CDT [facility] - [facility] RDW 12.5 11.5 - 14.5 % 02/28/2017 3:12 PM CDT [employer] [facility] - [facility] RDW-STDEV 41.5 37.1 - 48.7 fL 02/28/2017 3:12 PM CDT [employer] [facility] - [facility] PLATELETS 588(H) 140 - 350 K/uL 02/28/2017 3:12 PM CDT [facility] - [facility] MPV 9.3 9.3 - 12.4 fL 02/28/2017 3:12 PM CDT [employer] [facility] - . [facility] NEUTROPHILS 72 % 02/28/2017 3:12 PM CDT [employer] [facility] - [facility] LYMPHOCYTES 21 % 02/28/2017 3:12 PM CDT [facility] - [facility] MONOCYTES 6 % 02/28/2017 3:12 PM CDT [employer] [facility] - [facility] EOSINOPHILS 0 % 02/28/2017 3:12 PM CDT [facility] - [facility] BASOPHILS 0 % 02/28/2017 3:12 PM CDT [facility] - . [facility] IMMATURE GRANULOCYTES 0 % 02/28/2017 3:12 PM CDT [facility] - . [facility] NEUTROPHIL ABSOLUTE 6.12 1.90 - 7.00 K/uL 02/28/2017 3:12 PM CDT [facility] - [facility] LYMPHOCYTE ABSOLUTE 1.83 0.70 - 4.50 K/uL 02/28/2017 3:12 PM CDT [facility] - [facility] MONOCYTE ABSOLUTE 0.54 0.10 - 1.30 K/uL 02/28/2017 3:12 PM CDT [facility] - . [facility] EOSINOPHIL ABSOLUTE 0.02 0.00 - 0.70 K/uL 02/28/2017 3:12 PM CDT [employer] [facility] - [facility] BASOPHILS ABSOLUTE 0.02 0.00 - 0.20 K/uL 02/28/2017 3:12 PM CDT [facility] - [facility] IMMATURE GRANULOCYTES ABSOLUTE 0.03 0.00 - 0.03 K/uL 02/28/2017 3:12 PM CDT [facility] - . [facility] Blood 02/28/2017 12:3 1 PM CDT 02/28/2017 2:58 PM CDT Jocy SHAHID HEMATOLOGY ORD ERABLES [facility] [employer] [facility]# [id number] [address] [place] [address] * EXTRA TUBE (LAV) (02/28/2017 12:31 PM CDT) Blood Venipuncture / Unknown 02/28/2017 12:31 PM CDT 02/28/2017 12:32 PM CDT Mylene Gutierrez MD HEMATOLOGY ORDERABLE S [facility] [employer] [facility]# [id number] [address] [place] [address] documented in this encounter Visit Diagnoses Diagnosis Cervical stenosis of spine- Primary Spinal stenosis in cervical region Essential hypertension Unspecified essential hypertension Depression Depressive disorder, not elsewhere classified Fall Unspecified fall documented in this encounter Administered Medications Inactive Administered Medications - up to 3 most recent administrations Medication Order MAR Action Action Date Dose Rate Site acetaminophen (TYLENOL) tablet 650 mg 650 mg, Oral, EVERY 4 HOURS PRN, Starting on Mon02/28/17 at 1254, Until Mon03/03/17 at 1821, Pain, Routine Given 03/01/2017 3:26 PM CDT 650 mg amLODIPine (NORVASC) tablet 10 mg 10 mg, Oral, DAILY, First dose (after last modification) on Mon03/04/17 at 0900, Until Discontinued, Routine amLODIPine (NORVASC) tablet 5 mg 5 mg, Oral, DAILY, First dose on Mon03/03/17 at 1000, Until Discontinued, Routine Given 03/03/2017 9:49 AM CDT 5 mg amLODIPine (NORVASC) tablet 5 mg 5 mg, Oral, ONE TIME ONLY, 1 dose, On Mon03/03/17 at 1430, Routine Given 03/03/2017 1:53 PM CDT 5 mg atorvastatin (LIPITOR) tablet 20 mg 20 mg, Oral, DAILY AT BEDTIME, First dose on Mon02/28/17 at 2100, Until Discontinued, Routine Given 03/02/2017 8:49 PM CDT 20 mg Given 03/01/2017 9:10 PM CDT 20 mg Given 02/28/2017 9:05 PM CDT 20 mg cyanocobalamin (VITAMIN B-12) tablet 100 mcg 100 mcg, Oral, DAILY, First dose on Mon02/28/17 at 1300, Until Discontinued, Routine Given 03/03/2017 8:51 AM CDT 100 mcg Given 03/02/2017 9:50 AM CDT 100 mcg Given 03/01/2017 9:16 AM CDT 100 mcg dextrose 5 % in water 250 mL flush bag 25 mL 25 mL, IV, SEE ADMIN INSTRUCTIONS, Starting on Mon02/28/17 at 1228, Until Mon03/03/17 at 1821, Routine diazePAM (VALIUM) tablet 5 mg 5 mg, Oral, EVERY 8 HOURS PRN, Starting on Mon02/28/17 at 1233, Until Mon03/03/17 at 1821, Anxiety, Discomfort, Routine Given 03/02/2017 10:16 PM CDT 5 mg Given 03/01/2017 9:30 PM CDT 5 mg Given 02/28/2017 11:05 PM CDT 5 mg diphenhydrAMINE (BENADRYL) injection 50 mg 50 mg, IV, PRE-PROCEDURE ONCE, 1 dose, Starting on Mon02/28/17 at 1531, Until Mon02/28/17 at 1638, Routine Given 02/28/2017 4:38 PM CDT 50 mg DULoxetine (CYMBALTA) capsule 60 mg 60 mg, Oral, DAILY AT BEDTIME, First dose on Mon02/28/17 at 2100, Until Discontinued, Routine Given 03/02/2017 8:49 PM CDT 60 mg Given 03/01/2017 9:11 PM CDT 60 mg Given 02/28/2017 9:05 PM CDT 60 mg enoxaparin (LOVENOX) injection 40 mg 40 mg, subCUT, EVERY 24 HOURS, First dose on Mon02/28/17 at 2000, Until Discontinued, Routine Given 03/02/2017 8:50 PM CDT 40 mg Abdomen, Right Lower Quadrant Given 03/01/2017 9:17 PM CDT 40 mg Ab domen, Right Lower Quadrant Given 02/28/2017 9:06 PM CDT 40 mg Ab domen, Right Lower Quadrant famotidine (PEPCID) tablet 20 mg 20 mg, Oral, TWO TIMES DAILY, 4 doses, First dose on Mon02/28/17 at 1600, Last dose on Mon03/02/17 at 0900, Routine Given 03/02/2017 9:54 AM CDT 20 mg Given 03/01/2017 9:10 PM CDT 20 mg Given 03/01/2017 9:16 AM CDT 20 mg FLUoxetine (PROzac) capsule 40 mg 40 mg, Oral, DAILY AT BEDTIME, First dose on Mon02/28/17 at 2100, Until Discontinued, Routine Given 03/02/2017 8:49 PM CDT 40 mg Given 03/01/2017 9:10 PM CDT 40 mg Given 02/28/2017 9:05 PM CDT 40 mg gadobenate dimeglumine (MULTIHANCE) 529 mg/mL (0.1mmol/0.2mL) injection 12 mL 12 mL, IV, INTRA-PROCEDURE ONCE, 1 dose, Starting on Mon02/28/17 at 1806, Until Mon02/28/17 at 1839, Routine Contrast Given 02/28/2017 6:39 PM CDT 12 mL levothyroxine (SYNTHROID) tablet 50 mcg 50 mcg, Oral, DAILY EARLY, First dose on Mon03/01/17 at 0600, Until Discontinued, Routine Given 03/03/2017 6:09 AM CDT 50 mcg Given 03/02/2017 8:03 AM CDT 50 mcg Given 03/01/2017 7:22 AM CDT 50 mcg lisinopril (PRINIVIL) tablet 40 mg 40 mg, Oral, DAILY AT BEDTIME, First dose on Mon02/28/17 at 2100, Until Discontinued, Routine Given 03/02/2017 8:48 PM CDT 40 mg Given 03/01/2017 9:18 PM CDT 40 mg Given 02/28/2017 9:06 PM CDT 40 mg methylPREDNISolone sodium succinate PF (SOLU-Medrol PF) injection 40 mg 40 mg, IV, ONE TIME ONLY, 1 dose, On Mon02/28/17 at 1600, Routine Given 02/28/2017 4:42 PM CDT 40 mg methylPREDNISolone sodium succinate PF (SOLU-Medrol PF) injection 40 mg 40 mg, IV, EVERY 6 HOURS, 3 doses, First dose on Mon03/01/17 at 0000, Last dose on Mon03/01/17 at 1200, Routine Given 03/01/2017 2:04 PM CDT 40 mg Given 03/01/2017 7:22 AM CDT 40 mg Given 02/28/2017 11:10 PM CDT 40 mg oxyCODONE-acetaminophen (PERCOCET) 5-325 mg per tablet 1 Tablet 1 Tablet, Oral, EVERY 6 HOURS PRN, Starting on Mon02/28/17 at 1535, Until Mon03/03/17 at 1821, Pain (See admin instructions), Routine sodium chloride 0.9 % 250 mL flush bag 25 mL 25 mL, IV, SEE ADMIN INSTRUCTIONS, Starting on Mon02/28/17 at 1228, Until Mon03/03/17 at 1821, Routine sodium chloride 0.9 % flush injection 5 mL 5 mL, IV, EVERY 12 HOURS (BlD), First dose on Mon02/28/17 at 1230, Until Discontinued, Routine Given 03/03/2017 8:52 AM CDT 5 mL Given 03/02/2017 9:00 PM CDT 5 mL Given 03/02/2017 9:54 AM CDT 5 mL sodium chloride 0.9 % flush injection 5 mL 5 mL, IV, SEE ADMIN INSTRUCTIONS, Starting on Mon02/28/17 at 1228, Until Mon03/03/17 at 1821, Routine documented in this encounter Active and Recently Administered Medications Times are shown in CDT. Scheduled Medication Order 03/01/2017 03/02/2017 03/03/2017 amLODIPine (NORVASC) tablet 10 mg 10 mg, Oral, DAILY, First dose (after last modification) on Mon03/04/17 at 0900, Until Discontinued, Routine amLODIPine (NORVASC) tablet 5 mg (CANCELED) 5 mg, Oral, DAILY, First dose on Mon03/03/17 at 1000, Until Discontinued, Routine 0949 (Given - Provider: Alexa Carreno RN) amLODIPine (NORVASC) tablet 5 mg (COMPLETED) 5 mg, Oral, ONE TIME ONLY, 1 dose, On Mon03/03/17 at 1430, Routine 1353 (Given - Provider: Alexa Carreno RN) atorvastatin (LIPITOR) tablet 20 mg 20 mg, Oral, DAILY AT BEDTIME, First dose on Mon02/28/17 at 2100, Until Discontinued, Routine 2110 (Given - Provider: Apoorva Mcallister RN) 2048 (Given - Provider: Irasema Back, LOGAN) cyanocobalamin (VITAMIN B-12) tablet 100 mcg 100 mcg, Oral, DAILY, First dose on Mon02/28/17 at 1300, Until Discontinued, Routine 915 (Given - Provider: Jayne Lovell) 0950 (Given - Provider: Alexa Carreno, LOGAN) 0851 (Given - Provider: Alexa Carreno RN) dextrose 5 % in water 250 mL flush bag 25 mL 25 mL, IV, SEE ADMIN INSTRUCTIONS, Starting on Mon02/28/17 at 1228, Until Mon03/03/17 at 1821, Routine DULoxetine (CYMBALTA) capsule 60 mg 60 mg, Oral, DAILY AT BEDTIME, First dose on Mon02/28/17 at 2100, Until Discontinued, Routine 2110 (Given - Provider: Apoorva Mcallister RN) 2048 (Given - Provider: Irasema Back, LOGAN) enoxaparin (LOVENOX) injection 40 mg 40 mg, subCUT, EVERY 24 HOURS, First dose on Mon02/28/17 at 2000, Until Discontinued, Routine 2116 (Given - Provider: Apoorva Mcallister RN) 2049 (Given - Provider: Irasema Back, LOGAN) famotidine (PEPCID) tablet 20 mg (COMPLETED) 20 mg, Oral, TWO TIMES DAILY, 4 doses, First dose on Mon02/28/17 at 1600, Last dose on Mon03/02/17 at 0900, Routine 915 (Given - Provider: Jayne Lovell)2109 (Given - Provider: Apoorva Mcallister RN) 0954 (Given - Provider: Alexa Carreno RN) FLUoxetine (PROzac) capsule 40 mg 40 mg, Oral, DAILY AT BEDTIME, First dose on Mon02/28/17 at 2100, Until Discontinued, Routine 2109 (Given - Provider: Apoorva Mcallister RN) 2048 (Given - Provider: Irasema Back, LOGAN) levothyroxine (SYNTHROID) tablet 50 mcg 50 mcg, Oral, DAILY EARLY, First dose on Mon03/01/17 at 0600, Until Discontinued, Routine 721 (Given - Provider: Apoorva Mcallister RN) 0803 (Given - Provider: Alexa Carreno, LOGAN) 0609 (Given - Provider: Sarah Tom RN) lisinopril (PRINIVIL) tablet 40 mg 40 mg, Oral, DAILY AT BEDTIME, First dose on Mon02/28/17 at 2100, Until Discontinued, Routine 2117 (Given - Provider: Apoorva Mcallister RN) 204 (Given - Provider: rIasema Back, LOGAN) methylPREDNISolone sodium succinate PF (SOLU-Medrol PF) injection 40 mg (COMPLETED) 40 mg, IV, EVERY 6 HOURS, 3 doses, First dose on Mon03/01/17 at 0000, Last dose on Mon03/01/17 at 1200, Routine 07 (Given - Provider: Apoorva Mcallister RN)1404 (Given - Provider: Jayne Lovell) sodium chloride 0.9 % 250 mL flush bag 25 mL 25 mL, IV, SEE ADMIN INSTRUCTIONS, Starting on Mon02/28/17 at 1228, Until Mon03/03/17 at 1821, Routine sodium chloride 0.9 % flush injection 5 mL 5 mL, IV, EVERY 12 HOURS (BlD), First dose on Mon02/28/17 at 1230, Until Discontinued, Routine 09 (Given - Provider: Jayne Lovell)2118 (Given - Provider: Apoorva Mcallister RN) 0954 (Given - Provider: Alexa Carreno, LOGAN)2100 (Given - Provider: Irasema Back, LOGAN) 0852 (Given - Provider: Alexa Carreno RN) sodium chloride 0.9 % flush injection 5 mL 5 mL, IV, SEE ADMIN INSTRUCTIONS, Starting on Mon02/28/17 at 1228, Until Mon03/03/17 at 1821, Routine PRN Medication Order 03/01/2017 03/02/2017 03/03/2017 acetaminophen (TYLENOL) tablet 650 mg 650 mg, Oral, EVERY 4 HOURS PRN, Starting on Mon02/28/17 at 1254, Until Mon03/03/17 at 1821, Pain, Routine 1526 (Given - Provider: Jayne Lovell) diazePAM (VALIUM) tablet 5 mg 5 mg, Oral, EVERY 8 HOURS PRN, Starting on Mon02/28/17 at 1233, Until Mon03/03/17 at 1821, Anxiety, Discomfort, Routine 2129 (Given - Provider: Apoorva Mcallister RN) 2215 (Given - Provider: Irasema Back RN) oxyCODONE-acetaminophen (PERCOCET) 5-325 mg per tablet 1 Tablet 1 Tablet, Oral, EVERY 6 HOURS PRN, Starting on Mon02/28/17 at 1535, Until Mon03/03/17 at 1821, Pain (See admin instructions), Routine documented in this encounter Care Teams Oliver Filter Operator Relationship Specialty Start Date End Date Gadiel Zavala MD [address] [place] [phone] PCP - General Family Practice 03/03/17 documented as of this encounter
--- OUTSIDE RECORDS SUMMARY | 2024-04-17 11:46 | XMS_ITS | Encounter Summary ---
Author Organization [facility] Address [address] Ortizn: Epic Prelude ADT [place] [address] Care Team Providers Care Seal Delivery Vehicle Officer Name Role Phone Gadiel Zavala MD Primary Care Provider [phone] Encounter Details Date Type Department Care Team (Late st Contact Info) Description 03/17/2017 Orders Only Initial Department [address] [place]ARTINEZ: [place] [address] Provider, Historical Social History Tobacco Use Types Packs/Day Years Used Date Smoking Tobacco: Former Cigarettes 1 1988 Smokeless Tobacco: Never Comments:4 per day [...] Associated Diagnosis Comments BASIC METABOLIC PANEL Routine 03/17/2017 5:07 AM INTERACTIVE VIDEO TECHNICIAN documented in this encounter Results * (ABNORMAL) BASIC METABOLIC PANEL (03/17/2017 5:07 AM INTERACTIVE VIDEO TECHNICIAN) GLUCOSE 108(H) 65 - 99 mg/dL [facility] Comment: ? Fasting reference interval For someone without known diabetes, a glucose value between 100 and 125 mg/dL is consistent with prediabetes and should be confirmed with a follow-up test. BUN 13 7 - 25 mg/dL [facility] CREATININE 0.60 0.50 - 0.99 mg/dL [facility] Comment: For patients >49 years of age, the reference limit for Creatinine is approximately 13% higher for people identified as -Serbian. GFR 94 > OR = 60 mL/min/1 .73m2 [facility] . [place] GFR, 109 > OR = 60 mL/min/1 .73m2 [facility] . [place] BUN/CREAT RATIO NOT APPLICABLE 6 - 22 (calc) [facility] SODIUM 132(L) 135 - 146 mmol/L [facility] . [place] POTASSIUM 4.5 3.5 - 5.3 mmol/L [facility] . [place] CHLORIDE 96(L) 98 - 110 mmol/L [facility] . [place] CO2 28 20 - 31 mmol/L [facility] . [place] CALCIUM 10.0 8.6 - 10.4 mg/dL [facility] Comment: Test Performed at: [facility] ??[id number] Sagar Cook D.O., MPH 03/17/2017 5:07 AM INTERACTIVE VIDEO TECHNICIAN Historical Provider CHEMISTRY ORDERABLES [facility] [address] [place] [address] documented in this encounter Visit Diagnoses Not on filedocumented in this encounter Care Teams Seal Delivery Vehicle Officer Relationship Specialty Start Date End Date Gadiel Zavala MD [address] [place] [phone] PCP - General Family Practice 03/03/17 documented as of this encounter
--- OUTSIDE RECORDS SUMMARY | 2024-04-17 11:46 | XMS_ITS | Encounter Summary ---
Author Organization [facility] Address [address] [place] [address] Care Team Providers Care Creative Lead Name Role Phone Gadiel Zavala MD Primary Care Provider [phone] Reason for Visit * Auth/Cert Specialty Diagnoses / Procedures Referred By Contac t Referred To Contact Radiology [address] [address] Referral ID Status Reason Start Date Expiration Date Visits Re quested Visits Authorized [id number] 1 1 Encounter Details Date Type Department Care Team (Latest Contact Info) Description 05/16/2017 1:05 PM REFRIGERATION ENGINEERING TEACHER - 05/16/2017 11:59 PM [facility] Hospital Encounter [facility] Medical Medical [address] [phone] Mylene Gutierrez MD [address] [facility] [place] [address] -[phone] (Work) Discharge Disposition: Home or Self [...] Sig Dispensed Refills Start Date End Date docusate sodium (COLACE) 100 mg capsule Take [...] tablet Take 50 mcg by mouth daily lab intern. atorvastatin (LIPITOR) 20 mg tablet Take 20 [...] by mouth nightly as needed for Insomnia. oxyCODONE-acetaminophen (PERCOCET) 5-325 mg tablet Take 1 Tablet by mouth every 4 hours as needed for Pain, Moderate. Max Daily Amount: 6 Tablets 30 Tablet 03/14/2017 11/16/2017 documented as of this encounter Plan of Treatment Not on file documented as of this encounter Procedures Procedure Name Priority Date/Time Associated Diagnosis Comments XR CERVICAL SPINE 2 OR 3 VIEWS Routine 05/16/2017 1:10 PM REFRIGERATION ENGINEERING TEACHER Cervical stenosis of spine documented in this encounter Results * XR CERVICAL SPINE 2 OR 3 VIEWS (05/16/2017 1:10 PM REFRIGERATION ENGINEERING TEACHER) Anatomical Region Laterality Modality Spine Computed Radiogr aphy 05/16/2017 1:10 PM REFRIGERATION ENGINEERING TEACHER Impressions 05/16/2017 5:39 PM REFRIGERATION ENGINEERING TEACHER IMPRESSION: Postoperative change and fusion, cervical spine. DICTATION LOCATION: Location - [facility] Narrative 05/16/2017 5:39 PM REFRIGERATION ENGINEERING TEACHER EXAMINATION: CERVICAL SPINE 2 VIEWS DATE: 05/16/2017 1:10 PM HISTORY: Pain. COMPARISON: March 17, 2017 FINDINGS: Examination of cervical spine demonstrates left convex lateral curvature to the cervical spine. There is anterior fusion plate bridging C3-C4 with there is fusion at C4-C5, and C5-C6 with severe disc space narrowing at C6-C7. There is no evidence of fracture. Procedure Note Montrell Chen MD - 05/16/2017 EXAMINATION: CERVICAL SPINE 2 VIEWS DATE: 05/16/2017 1:10 PM HISTORY: Pain. COMPARISON: March 17, 2017 FINDINGS: Examination of cervical spine demonstrates left convex lateral curvature to the cervical spine. There is anterior fusion plate bridging C3-C4 with there is fusion at C4-C5, and C5-C6 with severe disc space narrowing at C6-C7. There is no evidence of fracture. IMPRESSION: Postoperative change and fusion, cervical spine. DICTATION LOCATION: Location - [facility] Mylene Gutierrez MD DIAGNOSTIC IMAGING O RDERABLES documented in this encounter Visit Diagnoses Diagnosis Cervical stenosis of spine Spinal stenosis in cervical region documented in this encounter Care Teams Creative Lead Relationship Specialty Start Date End Date Gadiel Zavala MD [address] [place] [phone] PCP - General Family Practice 03/03/17 documented as of this encounter
--- OUTSIDE RECORDS SUMMARY | 2024-04-17 11:46 | XMS_ITS | Encounter Summary ---
Author Organization [facility] Address [address] [place] [address] Care Team Providers Care Parliamentary Archivist Name Role Phone Gadiel Zavala MD Primary Care Provider Encounter Details Date Type Department Care Team (Late st Contact Info) Description 08/25/2017 Abstract [facility] Physical Med and Rehab - [facility] [id number] [place] [phone] Yasmin Vieyra, [address] [phone] Social History Tobacco Use Types Packs/Day Years [...] on filedocumented in this encounter Care Teams Parliamentary Archivist Relationship Specialty Start Date End Date Gadiel Zavala MD [address] [place] [phone] PCP - General Family Practice 03/03/17 documented as of this encounter
--- OUTSIDE RECORDS SUMMARY | 2024-04-17 11:46 | XMS_ITS | Encounter Summary ---
Author Organization [facility] Address [address] [place] [address] Care Team Providers Care Desk Manager Name Role Phone Gadiel Zavala MD Primary Care Provider [phone] Reason for Referral * Eval and Treat (Routine) - Closed Specialty Diagnoses / Procedures Referred By Contac t Referred To Contact Diagnoses Cervical stenosis of spine Cervical myelopathy Fall, subsequent encounter StrYasmin martinez DO [address] [place] [phone] Referral ID Status Reason Start Date Expiration Date V isits Requested Visits Authorized [id number] Closed CRS To Schedule (STL) 03/14/2017 03/14/2018 12 12 NCIAL REPORTING MANAGER * Eval and Treat (Routine) - Closed Specialty Diagnoses / Procedures Referred By Contac t Referred To Contact Diagnoses Cervical stenosis of spine Cervical myelopathy Fall, subsequent encounter Yasmin Vieyra DO [address] [place] [id number] Referral ID Status Reason Start Date Expiration Date V isits Requested Visits Authorized [id number] Closed CRS To Schedule (STL) 03/14/2017 03/14/2018 12 12 NCIAL REPORTING MANAGER Reason for Visit * Auth/Cert Specialty Diagnoses / Procedures Referred By Contac t Referred To Contact Rehabilitation Diagnoses Cervical Stenosis [facility] [address] [place] [address] Referral ID Status Reason Start Date Expiration Date Visits Re quested Visits Authorized 03/01/2017 04/01/2018 Encounter Details Date Type Department Care Team (Latest Contact Info) Description 03/03/2017 6:21 PM CDT - 03/15/2017 11:00 AM FINANCIAL REPORTING MANAGER Hospital Encounter [facility] [address] [place] [id number] Yasmin Vieyra DO [address] [phone] Cervical stenosis of spine Discharge Disposition: Home or Self Care Social History Tobacco Use Types Packs/Day Years Used Date Smoking Tobacco: Former Cigarettes 1988 Smokeless Tobacco: Never Comments:4 per day [...] Sign Reading Time Taken Comments Blood Pressure 108/71 03/15/2017 5:00 AM FINANCIAL REPORTING MANAGER Pulse 90 03/15/2017 5:00 AM FINANCIAL REPORTING MANAGER Temperature 36.5 ??C (97.7 ??F) 03/15/2017 5:00 AM CS T Respiratory Rate 18 03/15/2017 5:00 AM FINANCIAL REPORTING MANAGER Oxygen Saturation 99% 03/15/2017 5:00 AM FINANCIAL REPORTING MANAGER Inhaled Oxygen Concentration - - Weight 59.4 kg (131 lb) 03/14/2017 7:00 AM FINANCIAL REPORTING MANAGER Height 160 cm (5' 3 ) 03/11/2017 9:03 AM FINANCIAL REPORTING MANAGER Body Mass Index 23.21 03/11/2017 9:03 AM FINANCIAL REPORTING MANAGER documented in this encounter Discharge Summaries * Yasmin Vieyra DO - 03/15/2017 11:31 AM CST [facility] Discharge Summary Patient Name: Kaitlin Bond Admission Date: 03/03/2017 Discharge Date: 03/15/2017 Discharge Diagnosis: cervical stenosis with myelopathy Discharge Location: Home Attending Physician: Yasmin Vieyra DO Hospital Course Melly is a 66-year-old, right-handed female who presents for acute inpatient rehabilitation aftera C3-4 anterior cervical discectomy, C3-4 arthrodesis, C3-4 instrumentation on 02/16/[address] Gutierrez secondary to cervical stenosis with myelopathy and frequent falls The patient participated in a comprehensive, inpatient rehabilitative program consisting of physical therapy, occupational therapy and 24-hour rehabilitation nursing. She was continued on fall and spinal precautions and a soft cervical collar was issued for comfort. She progressed from therapy and upon discharge was modified independent for ADLs and mobility with a Rollator. Family training was successfully completed. During the hospitalization, the internal medicine team closely followed the patient to help insure medical stability. Her pain was controlled with Robaxin And she remained continent of bowel and bladder. She received Lovenox for DVT prophylaxis. Her hospital course was complicated by hyponatremia requiring salt tablets. She will follow up with her primary care physician within one week of discharge and was provided with a prescription for a BMP on 03/17. See progress notes for more details Discharge Disposition: All follow up instructions, including future appointments, continuing medications and restrictions were reviewed with the patient. A copy of this information was provided to the patient as well as their family. All of the patient???s questions were answered. The patient was discharged in stable cond ition to home with outpatient therapy. Discharge Medications Medication List START taking these medications docusate sodium 100 mg capsule Commonly known as: COLACE Take 1 Capsule (100 mg) by mouth 2 times daily. Signed by: Yasmin Vieyra DO Refills: 0 melatonin 3 mg Tablet Take 1 Tablet (3 mg) by mouth daily at bedtime. Signed by: Yasmin Vieyra DO Refills: 0 methocarbamol 500 mg tablet Commonly known as: ROBAXIN Take 1 Tablet (500 mg) by mouth 3 times daily as needed for Spasm Contact PCP for refills. Signed by: Yasmin Vieyra DO Quantity: 90 Tablet Refills: 0 oxyCODONE-acetaminophen 5-325 mg tablet Commonly known as: PERCOCET Take 1 Tablet by mouth every 4 hours as needed for Pain, Moderate. Max Daily Amount: 6 Tablets Signed by: Yasmin Vieyra DO Quantity: 30 Tablet Refills: 0 Replaces: oxyCODONE-acetaminophen 7.5-325 mg Tablet sennosides-docusate sodium 8.6-50 mg tablet Commonly known as: SENNA-S Take 1 Tablet by mouth daily at bedtime. Signed by: Yasmin Vieyra DO Refills: 0 CONTINUE taking these medications acetaminophen 325 mg tablet Commonly known as: TYLENOL Take 2 Tablets (650 mg) by mouth every 4 hours as needed for Pain. Signed by: ZEHRA Zuniga Refills: 0 amLODIPine 10 mg tablet Commonly known as: NORVASC Take 1 Tablet by mouth daily. Signed by: Dinh Mahmood MD Quantity: 30 Tablet Refills: 0 atorvastatin 20 mg tablet Commonly known as: LIPITOR Take 20 mg by mouth late in the day. Refills: 0 CALTRATE 600 + D 600 mg (1,500 mg)-800 unit Tablet, Chewable tablet Take by mouth daily. Refills: 0 Generic drug: calcium-cholecalciferol (D3) cyanocobalamin 100 mcg tablet Commonly known as: VITAMIN B-12 Take 100 mcg by mouth daily. Refills: 0 DULoxetine 60 mg Capsule, Delayed Release(E.C.) Commonly known as: CYMBALTA Take 60 mg by mouth daily at bedtime. Refills: 0 FLUoxetine 40 mg capsule Commonly known as: PROzac Take 40 mg by mouth daily at bedtime. Refills: 0 levothyroxine 50 mcg tablet Commonly known as: SYNTHROID Take 50 mcg by mouth daily music industry intern. Refills: 0 lisinopril 40 mg tablet Commonly known as: PRINIVIL Take 40 mg by mouth daily at bedtime. Refills: 0 LUNESTA 3 mg Tablet Take 5 mg by mouth nightly as needed for Insomnia. Refills: 0 Generic drug: eszopiclone omeprazole 40 mg Capsule, Delayed Release(E.C.) Commonly known as: PriLOSEC Take 40 mg by mouth daily. Refills: 0 STOP taking these medications diazePAM 5 mg tablet Commonly known as: VALIUM enoxaparin 40 mg/0.4 mL injection Commonly known as: LOVENOX oxyCODONE-acetaminophen 7.5-325 mg Tablet Commonly known as: PERCOCET Replaced by: oxyCODONE-acetaminophen 5-325 mg tablet Where to Get Your Medications These medications were sent to [facility] [address] [place] [id number] ?? methocarbamol 500 mg tablet Please take the prescriptions given to you during your stay and have them filled at any pharmacy. You don't need a prescription for these medications ?? docusate sodium 100 mg capsule ?? melatonin 3 mg Tablet ?? sennosides-docusate sodium 8.6-50 mg tablet Information about where to get these medications is not yet available Ask your nurse or doctor about these medications ?? oxyCODONE-acetaminophen 5-325 mg tablet Follow Up Appointments --Gadiel Zavala MD with 1 week of discharge -Dr. Guillermo after discharge for rehab needs -Dr. Gutierrez as directed ATTESTATION STATEMENTS This note was transcribed using [employer] speaking computerized voice recognition without a human transmission line engineer. This report may or may not have been adjusted for typographical, grammaticaland syntax errors. NCIAL REPORTING MANAGER documented in this encounter Discharge Instructions * Discharge Instructions* Ariela Dominguez RN - 03/14/2017 2:28 PM FINANCIAL REPORTING MANAGER FUTURE TESTS/PROCEDURES: Make sure you go to all follow up appointments: -Gadiel aZvala MD 1 Week after discharge from rehabilitation YOU MUST GET YOUR BLOOD WORK DRAWNON Saturday 03/17 WITH RESULTS TO YOUR PCP -Dr. Guillermo after discharge for rehab needs -Dr. Gutierrez as directed Medications: Take only what is listed above. For REFILLS on medication, contact your primary care physician. You were NOT given refills on your medicines and must see your outpatient physician for refills. Check your blood pressure 3 times a day and record to bring to your PCP. If you do not have a BP cuff at home, you can purchase one at your local drug store. Post Discharge Safety Recommendations No driving any vehicle until cleared by physician No driving until a driving evaluation has been passed No return to work until cleared by physician No operating power equipment No alcohol use No tobacco use Intermittent Supervision for I ADLs Always wear your seat belt Always wear a helmet when you are on moving transportation(bike, motorcycle, ATV, horse) and your head is exposed Precautions: Orders Placed This Encounter Procedures ??? SPINAL PRECAUTIONS No bracing ??? FALL PRECAUTIONS Soft collar for comfort Weight Bearing:Weight-Bearing Status: no weight-bearing restrictions (03/13/17 1900) Diet: DIET GENERAL Effective Now DIET SUPPLEMENT GEN ADULT ONGOING WOUND CARE:keep wound clean and dry Respiratory Care Discharge Needs/Equipment Supplies Ordered and Therapy Instructions: Kaitlin Bond No respiratory discharge needs have been indicated. For any respiratory concerns, please call your PCP. Aracely Longoria, BACK END DEVELOPER, PODIATRIC FOOT AND ANKLE SPECIALIST, Lead RT [facility] 03/14/2017 12:48 PM CONTINUED THERAPY and/or USP CARE: Outpatient therapy - Location - [facility]. The phone number is listed above. Physical Therapy DURABLE MEDICAL EQUIPMENT : Your prescriptions for medical equipment have been sent to [id number]. If there are problems please contact them at [phone]. Tub transfer bench Activity Status: Transfers: Modified Evans and with walker Upper body dressing: Independent Lower body dressing: Independent Bath: Modified Evans Pt. Ambulates with rollator [facility] FAX: [phone] [facility] Contract Writer: ARIELA DOMINGUEZ, RN NCIAL REPORTING MANAGER documented in this encounter Medications at Time [...] tablet Take 50 mcg by mouth daily music industry intern. atorvastatin (LIPITOR) 20 mg tablet Take [...] Amount: 6 Tablets 30 Tablet 03/14/2017 11/16/2017 amLODIPine (NORVASC) 10 mg tablet Take 1 Tablet by mouth daily. 30 Tablet 03/04/2017 04/03/2017 documented as of this encounter Progress Notes * Yasmin Vieyra DO - 03/15/2017 11:29 AM CST Physical Medicine and Rehabilitation Progress Note--Day of Discharge Admission Date: 03/03/2017 Chief complaint: I am ready! Subjective: Patient seen and examined during morning rounds. Good spirits. Patient is looking forward to discharge home today. She is agreeable to continue therapy in the outpatient setting. She is aware of her hyponatremia and will continue to take salt tablets at home. She will have close follow-up with her primary care physician and understands her recommendation to have her blood work drawn on Monday. Anoutpatient lab prescription was provided to the patient. She is having regular bowel movements. No problems with her bladder. She denies any pain today Functional status: modified for ADL/mobility ROS: As per HPI and: No fever, chills, Nausea or vomiting Social History: Lives alone in a single-story home with her spouse. Medications reviewed. Objective: Vitals: BP 108/71 (BP Location: Left arm, Patient Position (BP): Supine) Pulse 90 Temp 97.7 ??F(36.5 ??C) (Oral) Resp 18 Ht 5' 3 (1.6 m) Wt 59.4 kg (131 lb) SpO2 99% BMI 23.21 kg/m?? General:alert, no distress and Sitting at edge of bed HEENT: Soft collar in place Lungs:clear to auscultation bilaterally, Normal respirations CV: Regular rate and rhythm Abd: Soft, non-tender. Bowel sounds present Ext: No leg edema Neuro: speech is fluent and intact Skin: Anterior neck incision healed, Open to air Data Review: Lab Results Component Value Date/Time WBC 6.8 03/14/2017 05:30 AM HGB 12.0 03/14/2017 05:30 AM HCT 35.9 03/14/2017 05:30 AM PLT 413 (H) 03/14/2017 05:30 AM MCV 88.9 03/14/2017 05:30 AM Lab Results Component Value Date/Time NA 130 (L) 03/14/2017 05:30 AM K 4.7 03/14/2017 05:30 AM CL 94 (L) 03/14/2017 05:30 AM CO2 26 03/14/2017 05:30 AM CA 8.9 03/14/2017 05:30 AM BUN 12 03/14/2017 05:30 AM CREAT 0.68 03/14/2017 05:30 AM GLUCOSE 81 03/14/2017 05:30 AM TOTALPROTEIN 6.6 (L) 03/04/2017 06:00 AM ALBUMIN 4.0 03/04/2017 06:00 AM BILITOTAL 0.3 03/04/2017 06:00 AM ALKPHOS 87 03/04/2017 06:00 AM AST 28 03/04/2017 06:00 AM ALT 27 03/04/2017 06:00 AM ANIONGAP 10 03/14/2017 05:30 AM ASSESSMENT/PLAN: Melly is a 66-year-old, right-handed female who presents for acute inpatient rehabilitation aftera C3-4 anterior cervical discectomy, C3-4 arthrodesis, C3-4 instrumentation on 02/16/[address] Gutierrez secondary to cervical stenosis with myelopathy and frequent falls Rehab: -Continue PT/OT, recreation therapy, and rehab nursing to maximize functional status. Barriers: personal caregiver, precautions, pain, endurance, balance, strength. Goals: Mod I for ADLs/mobility -Precautions: fall, spinal--no bracing--soft collar for comfort -Team conference: weekly -Cervical myelopathy status post surgery: Comprehensive rehabilitative program to maximize functional independence. Monitor bowel/bladder as below. Pain control as below. No bracing required as per surgeon Pain: -Neck pain: Patient would like to avoid narcotics if possible. Continue Robaxin. Cont Lunesta. Off zanaflex -Spasms: Discontinuee Valium as per patient request. Muscle relaxers as above -Left rib pain from fall: Improving, continue Lidoderm patch, encourage incentive spirometry -Neuropathic pain: Continue Cymbalta, continue B12 Bowel: -Continent, monitor stooling and adjust oral agents as needed--senna S at bedtime, Bladder: -Continent, UA negative Prophylaxis: DVT prophylaxis: Lovenox Bone healing: Continue calcium with vitamin D GI prophylaxis: Protonix Skin: -turn every 2 hours, encourage pressure reliefs -ok to shower and get incision wet Mental health -Depression: Continue Prozac, Cymbalta. Consulted rehabilitation psychology FEN -Continue regular consistency diet -Replete electrolytes as needed Remainder as per Internal Medicine, Dr. Elias, including: -Hypertension: Continue lisinopril, Norvasc -Hypothyroidism: Continue Synthroid -Hyponatremia, continue to monitor. Continue salt tablets at home, outpatient lab draw on 03/17 -Hyperlipidemia: Continue Lipitor Disposition: TDD: 03/15 to home with outpatient therapy. Patient is stable for discharge today. Discussed the discharge plan including continuing medications, prescriptions needed, followup appointments and restrictions. The patient expressed understanding and I answered all questions. Written instructions were provided to the patient Follow ups: -Gadiel Zavala MD 1-2 weeks after discharge from rehabilitation -Dr. Guillermo after discharge for rehab needs -Dr. Gutierrez as directed Total time spent in discharge process: 45 minutes Yasmin Vieyra DO ATTESTATION STATEMENTS This note was transcribed using [employer] speaking computerized voice recognition without a human transmission line engineer. This report may or may not have been adjusted for typographical, grammaticaland syntax errors. NCIAL REPORTING MANAGER * Carson Elias MD - 03/15/2017 5:34 AM CST Images from the original note were not included. Internal Medicine Progress Note CARSON ELIAS MD 03/15/2017 Patient Name: Kaitlin Bond Admit Date: 03/03/2017 PCP: Gadiel Zavala MD Consult requested by Yasmin Reese DO Patient Name: Kaitlin Bond PCP: Gadiel Zavala MD Date of admission: 03/03/2017 Date of Service: 03/15/2017 Reason for Consultation: Medical Management Slept a little. Looking forward to dispo. Pleased with progress. Feeling stronger. Neck pain betterwith use of soft c collar; she is trying to avoid narcotics. No fever, chills, chest pain, acute sob. Vitals acceptable. Bowel regimen. PO intake slowly improving. Na 130, advanced NaCl tabs to 2g TID, will need to f/u with PCP, BMP later this week. PMHx: Past Medical History: Diagnosis Date ??? [...] C3-4 performed by Mylene Gutierrez MD at [facility] All: Allergies Allergen Reactions ??? Adhesive Rash ??? Adhesive Tape-Silicones Rash Reaction: RASH ??? Gadolinium-Containing Contrast Media Hives ??? Magnevist [Gadopentetate Dimeglumine] Hives Outpt Meds: Cannot display prior to admission medications because the patient has not been admitted in this contact. Inpatient Meds: Current Facility-Administered Medications: ??? sodium chloride tablet 2 Gram, 2 Gram, Oral, TID Meals, Yasmin Vieyra R, DO, 2 Gram at 03/14/17 161 ??? jltpgtvpwz-rtparzd-kyhyfdwtbfcxr (CEPACOL) lozenge 1 Each, 1 Each, Mouth/Throat, q 3 hour PRN, Carson Elias MD, 1 Each at 03/12/172058 ??? melatonin tablet 3 mg, 3 mg, Oral, Daily BEDTIME, Carson Elias MD, 3 mg at 03/14/172057 ??? sennosides-docusate sodium (SENNA-S) 8.6-50 mg per tablet 1 Tablet, 1 Tablet, Oral, Daily BEDTIME, Yasmin Vieyra DO, 1 Tablet at 03/14/172057 ??? eszopiclone (LUNESTA) tablet 3 mg, 3 mg, Oral, Daily BEDTIME, Yasmin Vieyra R DO, 3 mg at 03/14/17 2252 ??? [DISCONTINUED] sodium chloride tablet 1 Gram, 1 Gram, Oral, TID Meals, Carson Elias MD, 1 Gram at 03/14/17 1243 ??? magnesium hydroxide (MILK OF MAGNESIA) oral suspension 30 mL, 30 mL, Oral, Daily PRN, Carson Elias MD, 30 mL at 03/07/17 1354 ??? methocarbamol (ROBAXIN) tablet 500 mg, 500 mg, Oral, TID, Azalia Yasmin R, DO, 500 mg at 03/14/17 1611 ??? docusate sodium (COLACE) capsule 100 mg, 100 mg, Oral, BID, Yasmin Vieyra R DO, 100 mg at 03/14/172058 ??? acetaminophen (TYLENOL) tablet 650 mg, 650 mg, Oral, q 4 hour PRN, Strike, Yasmin R, DO ??? amLODIPine (NORVASC) tablet 10 mg, 10 mg, Oral, Daily, Strike, Yasmin R, DO, 10 mg at 821 ??? atorvastatin (LIPITOR) tablet 20 mg, 20 mg, Oral, Daily LATE, Strike, Yasmin R, DO, 20 mg at 03/14/17 1611 ??? cyanocobalamin (VITAMIN B-12) tablet 100 mcg, 100 mcg, Oral, Daily, Strike, Yasmin R, DO, 100 mcg at 03/14/17 0821 ??? DULoxetine (CYMBALTA) capsule 60 mg, 60 mg, Oral, Daily BEDTIME, Strike, Yasmin R, DO, 60 mg at 03/14/172058 ??? FLUoxetine (PROzac) capsule 40 mg, 40 mg, Oral, Daily BEDTIME, Strike, Yasmin R, DO, 40 mg at 03/14/172057 ??? levothyroxine (SYNTHROID) tablet 50 mcg, 50 mcg, Oral, Daily EARLY, Strike, Yasmin R, DO, 50 mcg at 03/14/17 0558 ??? lisinopril (PRINIVIL) tablet 40 mg, 40 mg, Oral, Daily BEDTIME, Strike, Yasmin R, DO, 40 mg at105/14/162057 ??? diphenhydrAMINE (BENADRYL) tablet 25 mg, 25 mg, Oral, q 6 hour PRN, Strike, Yasmin R, DO ??? oxyCODONE-acetaminophen (PERCOCET) 5-325 mg per tablet 1 Tablet, 1 Tablet, Oral, q 4 hour PRN, Strike, Yasmin R, DO, 1 Tablet at 03/09/172208 ??? naloxone (NARCAN) 0.4 mg/mL injection 0.1 mg, 0.1 mg, IV, See Admin Notes, Strike, Yasmin R, DO ??? ondansetron (ZOFRAN ODT) tablet 4 mg, 4 mg, Oral, q 6 hour PRN, Strike, Yasmin R, DO, 4 mg at 03/04/17 0542 ??? bisacodyl (DULCOLAX) rectal suppository 10 mg, 10 mg, Rectal, Daily PRN, Yasmin Vieyra DO,10 mg at 03/12/172114 ??? enoxaparin (LOVENOX) injection 40 mg, 40 mg, subCUT, q 24 hour, Yasmin Vieyra DO, 40 mg at105/14/162058 ??? pantoprazole (PROTONIX) tablet 40 mg, 40 mg, Oral, Daily, Yasmin Vieyra DO, 40 mg at 03/14/17 0558 ??? calcium-cholecalciferol (OS-IAN 500+D) tablet 1 Tablet, 1 Tablet, Oral, Daily, Yasmin Vieyra DO, 1 Tablet at 03/14/17 0821 SocHx: Social History Substance Use Topics ??? Smoking status: Former Smoker Years: 5.00 Types: Cigarettes Quit date: 1988 ??? Smokeless tobacco: Never Used Comment: 4 per day ??? Alcohol use Yes Comment: 1-2 times per month 1 drink FamHx: No family history on file. Review of Systems History from chart review and the patient General positive for - fatigue ENT negative for nasal congestion, drainage or bleeding, sore throat, dysphagia or ear pain Heme/Lymph negative for swollen glands or abnormal bleeding Endocrine negative for polyuria/polydipsia or new changes in weight CV negative for chest pain or dyspnea on exertion Respiratory negative for cough, shortness of breath, or wheezing GI positive for - change in bowel habits positive for - change in urinary stream MS positive for - gait disturbance, joint pain and muscular weakness Neuro positive for - gait disturbance, impaired coordination/balance and weakness All Other ROS Negative BP 125/84 Pulse 88 Temp 97.6 ??F (36.4 ??C) (Oral) Resp 20 Ht 5' 3 (1.6 m) Wt 59.4 kg (131 lb) SpO2 99% BMI 23.21 kg/m?? General appearance Alert, no distress Head Normocephalic, without obvious abnormality, atraumatic Eyes PERRL, EOM's intact. Throat Oropharynx clear Neck Supple, post op changes healing Lungs Clear to auscultation bilaterally Heart Regular rate and rhythm Abdomen Soft, non-tender. Bowel sounds normal. Extremities No edema Neurologic moves all extremities, RLE weaker than LLE CBC: Recent Labs 03/13/17 0630 03/14/17 0530 WBC 7.6 6.8 HGB 13.1 12.0 HCT 38.8 35.9 PLT 509* 413* MCV 88.0 88.9 BMP: Recent Labs 03/13/17 0630 03/14/17 0530 GLUCOSE 94 81 BUN 9 12 CREAT 0.65 0.68 NA 131* 130* K 4.1 4.7 CL 91* 94* CO2 26 26 ANIONGAP 14 10 CA 9.4 8.9 EKG: unchanged from previous tracings CXR: No results found for this or any previous visit. Patient Active Problem List Diagnosis Code ??? Cervical stenosis of spine M48.02 ??? Essential hypertension I10 ??? Depression F32.9 ??? Fall W19.XXXA ??? Cervical myelopathy G95.9 1. Cervical stenosis of spine with myelopathy: s/p C3-4 ACDF, Dr Gutierrez. Recurrent falls and persistent weakness. Comprehensive rehab program. Pain control, wound care, f/u with neurosurgery as arranged. Fall precautions. Ca + D 2. Hypertension: Lisinopril, norvasc. Adjust as required for improved control 3. Hypothyroidism: synthroid 4. Depression/anxiety: Prozac, cymbalta 5. GERD: PPI 6. B12 def: Supplement 7. Constipation: Bowel regimen Thank you for involving me in this patient's care. I will continue to follow along with you. ?? DVT Prophylaxis lovenox ?? GI prophylaxis: proton pump inhibitor ?? Code Status Full Code 35 min were spent in the care of this patient today; this may have included family conferences, nursing conferences and discussion with any consultants CARSON ELIAS MD NCIAL REPORTING MANAGER * Rodrigue Husain, RN - 03/15/2017 12:01 AM CST Patient last BM was on 03/12/17 and it is normal, per patient. She goes once in 4 days according toher. But she took colace and senna at HS. Patient had no falls this shift and is fall risk level/color Green Interventions in Place: [x] Fall Risk Armband on Patient [x] Call Light within Reach [] Bed Alarm [] Chair Alarm [] Sitter [x] Fall Risk Magnet on Door [x] Fall Risk Magnet on Schedule Board [] Wrist Coil Handoff in Place [] Low Bed and Mats in Place [] Room Close to Nurses Station [] Other: Patient Education on Medications Education provided : Kaitlin Bond This education was provided to the patient Name of medication: lovenox The education included the following: Understanding the side effects of their medication RODRIGUE HUSAIN, LOGAN NCIAL REPORTING MANAGER * Yasmin Vieyra DO - 03/14/2017 1:53 PM CST Physical Medicine and Rehabilitation Progress Note Admission Date: 03/03/2017 Chief complaint: no pain Subjective: Patient seen and examined during morning rounds. The patient denies any pain this morning. She states she slept reasonably well. She had a bowel movement the day before yesterday. No problems with her bladder. She is looking forward to discharge home tomorrow. We will review the discharge plan and all questions were answered. Her is coming in for family training today Functional status: Stand by assistance for ambulation with a walker ROS: As per HPI and: No fever, chills, Chest pain or shortness of breath Social History: Lives alone in a single-story home with her spouse. Medications reviewed. Objective: Vitals: BP 111/73 Pulse 77 Temp 97.7 ??F (36.5 ??C) (Oral) Resp 18 Ht 5' 3 (1.6 m) Wt 59.4 kg (131 lb) SpO2 100% BMI 23.21 kg/m?? General:alert, no distress and Sitting in bed HEENT: Soft collar in place Lungs:clear to auscultation bilaterally, No wheezing/rhonchi CV: Regular rate and rhythm Abd: Soft, non-tender. Bowel sounds present Ext: No leg edema Neuro: speech is fluent and intact Skin: Anterior neck incision healed Data Review: Lab Results Component Value Date/Time WBC 6.8 03/14/2017 05:30 AM HGB 12.0 03/14/2017 05:30 AM HCT 35.9 03/14/2017 05:30 AM PLT 413 (H) 03/14/2017 05:30 AM MCV 88.9 03/14/2017 05:30 AM Lab Results Component Value Date/Time NA 130 (L) 03/14/2017 05:30 AM K 4.7 03/14/2017 05:30 AM CL 94 (L) 03/14/2017 05:30 AM CO2 26 03/14/2017 05:30 AM CA 8.9 03/14/2017 05:30 AM BUN 12 03/14/2017 05:30 AM CREAT 0.68 03/14/2017 05:30 AM GLUCOSE 81 03/14/2017 05:30 AM TOTALPROTEIN 6.6 (L) 03/04/2017 06:00 AM ALBUMIN 4.0 03/04/2017 06:00 AM BILITOTAL 0.3 03/04/2017 06:00 AM ALKPHOS 87 03/04/2017 06:00 AM AST 28 03/04/2017 06:00 AM ALT 27 03/04/2017 06:00 AM ANIONGAP 10 03/14/2017 05:30 AM ASSESSMENT/PLAN: Melly is a 66-year-old, right-handed female who presents for acute inpatient rehabilitation aftera C3-4 anterior cervical discectomy, C3-4 arthrodesis, C3-4 instrumentation on 02/16/[address] Gutierrez secondary to cervical stenosis with myelopathy and frequent falls Rehab: -Continue PT/OT, recreation therapy, and rehab nursing to maximize functional status. Barriers: personal caregiver, precautions, pain, endurance, balance, strength. Goals: Mod I for ADLs/mobility -Precautions: fall, spinal--no bracing--soft collar for comfort -Team conference: weekly -Cervical myelopathy status post surgery: Comprehensive rehabilitative program to maximize functional independence. Monitor bowel/bladder as below. Pain control as below. No bracing required as per surgeon Pain: -Neck pain: Patient would like to avoid narcotics if possible. Continue Robaxin. Cont Lunesta. Off zanaflex -Spasms: Discontinuee Valium as per patient request. Muscle relaxers as above -Left rib pain from fall: Improving, continue Lidoderm patch, encourage incentive spirometry -Neuropathic pain: Continue Cymbalta, continue B12 Bowel: -Continent, monitor stooling and adjust oral agents as needed--senna S at bedtime, last BM 03/12 Bladder: -Continent, UA negative Prophylaxis: DVT prophylaxis: Lovenox Bone healing: Continue calcium with vitamin D GI prophylaxis: Protonix Skin: -turn every 2 hours, encourage pressure reliefs -ok to shower and get incision wet Mental health -Depression: Continue Prozac, Cymbalta. Consulted rehabilitation psychology FEN -Continue regular consistency diet -Replete electrolytes as needed -Labs reviewed.CBC is stable, hemoglobin is lower than previous Reda within patient's range. Sodiumis low, continue salt tablets but increase to 2 mg BID and will need close follow up with PCP. Willgive order for outpatient lab monitoring on Monday with results to PCP. Remainder as per Internal Medicine, Dr. Elias, including: -Hypertension: Continue lisinopril, Norvasc -Hypothyroidism: Continue Synthroid -Hyponatremia, continue to monitor. -Hyperlipidemia: Continue Lipitor Disposition: TDD: 03/15 to home with outpatient therapy Follow ups: -Gadiel Zavala MD 1-2 weeks after discharge from rehabilitation -Dr. Guillermo after discharge for rehab needs -Dr. Gutierrez as directed Total time spent: 25 minutes. Greater than 50% was spent counseling/coordinating care including discussion of pain regimen, bowel/bladder management and rehab progress. Yasmin Vieyra DO ATTESTATION STATEMENTS This note was transcribed using [employer] computerized voice recognition without a human transmission line engineer. This report may or may not have been adjusted for typographical, grammaticaland syntax errors. NCIAL REPORTING MANAGER * Aracely Longoria [facility] - 03/14/2017 12:49 PM CST Respiratory Care Practitioner Note: Kaitlin Bond Respiratory needs are reviewed, AVS completed. Vitals, Labs, and Patient history were reviewed. BP 111/73 Pulse 77 Temp 97.7 ??F (36.5 ??C) (Oral) Resp 18 Ht 5' 3 (1.6 m) Wt 59.4 kg (131 lb) SpO2 100% BMI 23.21 kg/m?? Lab Results Component Value Date/Time HEMATOCRIT 35.9 03/14/2017 05:30 AM HEMOGLOBIN 12.0 03/14/2017 05:30 AM Thank you, Aracely Longoria, BACK END DEVELOPER, PODIATRIC FOOT AND ANKLE SPECIALIST Lead Respiratory Therapist [facility] [phone] All Respiratory Orders, Assessments, Follow-up Appointments are completed per [facility] Policy. NCIAL REPORTING MANAGER * Shorty Hanson LPN - 03/14/2017 10:37 AM CST Patient demonstrated ability to release wheelchair alarmed seatbelt. NCIAL REPORTING MANAGER * Shorty Hanson LPN - 03/14/2017 10:37 AM CST Patient had no falls this shift and is fall risk level/color red Interventions in Place: [x] Fall Risk Armband on Patient [x] Call Light within Reach [] Bed Alarm [] Chair Alarm [] Sitter [x] Fall Risk Magnet on Door [x] Fall Risk Magnet on Schedule Board [] Wrist Coil Handoff in Place [] Low Bed and Mats in Place [] Room Close to Nurses Station [] Other: NCIAL REPORTING MANAGER * Shorty Hanson LPN - 03/14/2017 10:35 AM CST Patient Education on Medications Education provided Re: Kaitlin Javier Ronda This education was provided to the patient Name of medication:colace The education included the following: Administering their medication SHORTY HANSON LPN NCIAL REPORTING MANAGER * Carson Elias MD - 03/14/2017 5:43 AM CST Images from the original note were not included. Internal Medicine Progress Note CARSON ELIAS MD 03/14/2017 Patient Name: Kaitlin Bond Admit Date: 03/03/2017 PCP: Gadiel Zavala MD Consult requested by Yasmin Reese DO Patient Name: Kaitlin Bond PCP: Gadiel Zavala MD Date of admission: 03/03/2017 Date of Service: 03/14/2017 Reason for Consultation: Medical Management Poor sleep, took lunesta and melatonin. Feeling stronger. Neck pain better with use of soft c collar; she is trying to avoid narcotics. No fever, chills, chest pain, acute sob. Vitals acceptable. Bowel regimen. Encourage po, RD following. Na 131, requiring NaCl tabs. Dispo planning PMHx: Past Medical History: Diagnosis Date ??? [...] C3-4 performed by Mylene Gutierrez MD at [facility] All: Allergies Allergen Reactions ??? Adhesive Rash ??? Adhesive Tape-Silicones Rash Reaction: RASH ??? Gadolinium-Containing Contrast Media Hives ??? Magnevist [Gadopentetate Dimeglumine] Hives Outpt Meds: Cannot display prior to admission medications because the patient has not been admitted in this contact. Inpatient Meds: Current Facility-Administered Medications: ??? wwvgmzbptt-eeohhfs-mixbqxwezxxef (CEPACOL) lozenge 1 Each, 1 Each, Mouth/Throat, q 3 hour PRN, Carson Elias MD, 1 Each at 03/12/172058 ??? melatonin tablet 3 mg, 3 mg, Oral, Daily BEDTIME, Carson Elias MD, 3 mg at 03/13/172103 ??? sennosides-docusate sodium (SENNA-S) 8.6-50 mg per tablet 1 Tablet, 1 Tablet, Oral, Daily BEDTIME, Yasmin Vieyra, DO, 1 Tablet at 03/12/172058 ??? eszopiclone (LUNESTA) tablet 3 mg, 3 mg, Oral, Daily BEDTIME, Yasmin Vieyra R, DO, 3 mg at 03/13/17 2100 ??? sodium chloride tablet 1 Gram, 1 Gram, Oral, TID Meals, Carson Elias MD, 1 Gram at ??? magnesium hydroxide (MILK OF MAGNESIA) oral suspension 30 mL, 30 mL, Oral, Daily PRN, Carson Elias MD, 30 mL at 03/07/17 1354 ??? methocarbamol (ROBAXIN) tablet 500 mg, 500 mg, Oral, TID, Yasmin Vieyra R, DO, 500 mg at 03/13/171816 ??? docusate sodium (COLACE) capsule 100 mg, 100 mg, Oral, BID, Tari Vieyraissa R, DO, 100 mg at 03/12/172058 ??? acetaminophen (TYLENOL) tablet 650 mg, 650 mg, Oral, q 4 hour PRN, Tari Vieyraissa R, DO ??? amLODIPine (NORVASC) tablet 10 mg, 10 mg, Oral, Daily, Azalia, Yasmin R, DO, 10 mg at ??? atorvastatin (LIPITOR) tablet 20 mg, 20 mg, Oral, Daily LATE, Tari Vieyraissa R, DO, 20 mg at 03/13/17 1645 ??? cyanocobalamin (VITAMIN B-12) tablet 100 mcg, 100 mcg, Oral, Daily, Tari Vieyraissa R, DO, 100 mcg at 03/13/17 0905 ??? DULoxetine (CYMBALTA) capsule 60 mg, 60 mg, Oral, Daily BEDTIME, Strjuan, Yasmin R, DO, 60 mg at 03/13/172103 ??? FLUoxetine (PROzac) capsule 40 mg, 40 mg, Oral, Daily BEDTIME, Yasmin Vieyra R, DO, 40 mg at 03/13/172104 ??? levothyroxine (SYNTHROID) tablet 50 mcg, 50 mcg, Oral, Daily EARLY, Yasmin Vieyra R, DO, 50 mcg at 03/13/17 0547 ??? lisinopril (PRINIVIL) tablet 40 mg, 40 mg, Oral, Daily BEDTIME, Yasmin Vieyra R, DO, 40 mg at105/12/16 2100 ??? diphenhydrAMINE (BENADRYL) tablet 25 mg, 25 mg, Oral, q 6 hour PRN, Yasmin Vieyra R, DO ??? oxyCODONE-acetaminophen (PERCOCET) 5-325 mg per tablet 1 Tablet, 1 Tablet, Oral, q 4 hour PRN, Yasmin Vieyra R, DO, 1 Tablet at 03/09/172208 ??? naloxone (NARCAN) 0.4 mg/mL injection 0.1 mg, 0.1 mg, IV, See Admin Notes, Yasmin Vieyra, DO ??? ondansetron (ZOFRAN ODT) tablet 4 mg, 4 mg, Oral, q 6 hour PRN, Yasmin Vieyra R, DO, 4 mg at 03/04/17 0542 ??? bisacodyl (DULCOLAX) rectal suppository 10 mg, 10 mg, Rectal, Daily PRN, Yasmin Vieyra R, DO,10 mg at 03/12/172114 ??? enoxaparin (LOVENOX) injection 40 mg, 40 mg, subCUT, q 24 hour, Yasmin Vieyra R, DO, 40 mg at105/13/162106 ??? pantoprazole (PROTONIX) tablet 40 mg, 40 mg, Oral, Daily, Yasmin Vieyra R, DO, 40 mg at 03/13/17 0547 ??? calcium-cholecalciferol (OS-IAN 500+D) tablet 1 Tablet, 1 Tablet, Oral, Daily, Yasmin Vieyra R, DO, 1 Tablet at 03/13/17 0905 SocHx: Social History Substance Use Topics ??? Smoking status: Former Smoker Years: 5.00 Types: Cigarettes Quit date: 1988 ??? Smokeless tobacco: Never Used Comment: 4 per day ??? Alcohol use Yes Comment: 1-2 times per month 1 drink FamHx: No family history on file. Review of Systems History from chart review and the patient General positive for - fatigue ENT negative for nasal congestion, drainage or bleeding, sore throat, dysphagia or ear pain Heme/Lymph negative for swollen glands or abnormal bleeding Endocrine negative for polyuria/polydipsia or new changes in weight CV negative for chest pain or dyspnea on exertion Respiratory negative for cough, shortness of breath, or wheezing GI positive for - change in bowel habits positive for - change in urinary stream MS positive for - gait disturbance, joint pain and muscular weakness Neuro positive for - gait disturbance, impaired coordination/balance and weakness All Other ROS Negative BP 114/76 (BP Location: Left arm, Patient Position (BP): Supine) Pulse 77 Temp 97.5 ??F (36.4 ??C) (Oral) Resp 17 Ht 5' 3 (1.6 m) Wt 59.4 kg (131 lb) SpO2 97% BMI 23.21 kg/m?? General appearance Alert, no distress Head Normocephalic, without obvious abnormality, atraumatic Eyes PERRL, EOM's intact. Throat Oropharynx clear Neck Supple, post op changes healing Lungs Clear to auscultation bilaterally Heart Regular rate and rhythm Abdomen Soft, non-tender. Bowel sounds normal. Extremities No edema Neurologic moves all extremities, RLE weaker than LLE CBC: Recent Labs 03/11/17 1106 03/13/17 0630 WBC 6.3 7.6 HGB 12.4 13.1 HCT 36.9 38.8 PLT 472* 509* MCV 88.9 88.0 BMP: Recent Labs 03/11/17 1105 03/13/17 0630 GLUCOSE 111* 94 BUN 7* 9 CREAT 0.59 0.65 NA 133* 131* K 4.1 4.1 CL 95* 91* CO2 25 26 ANIONGAP 13 14 CA 9.4 9.4 EKG: unchanged from previous tracings CXR: No results found for this or any previous visit. Patient Active Problem List Diagnosis Code ??? Cervical stenosis of spine M48.02 ??? Essential hypertension I10 ??? Depression F32.9 ??? Fall W19.XXXA ??? Cervical myelopathy G95.9 1. Cervical stenosis of spine with myelopathy: s/p C3-4 ACDF, Dr Gutierrez. Recurrent falls and persistent weakness. Comprehensive rehab program. Pain control, wound care, f/u with neurosurgery as arranged. Fall precautions. Ca + D 2. Hypertension: Lisinopril, norvasc. Adjust as required for improved control 3. Hypothyroidism: synthroid 4. Depression/anxiety: Prozac, cymbalta 5. GERD: PPI 6. B12 def: Supplement 7. Constipation: Bowel regimen Thank you for involving me in this patient's care. I will continue to follow along with you. ?? DVT Prophylaxis lovenox ?? GI prophylaxis: proton pump inhibitor ?? Code Status Full Code 35 min were spent in the care of this patient today; this may have included family conferences, nursing conferences and discussion with any consultants CARSON ELIAS MD NCIAL REPORTING MANAGER * Kati Joshua RN - 03/13/2017 11:00 PM CST Patient had no falls this shift and is fall risk level/color yellow Interventions in Place: [x] Fall Risk Armband on Patient [x] Call Light within Reach [x] Bed Alarm [] Chair Alarm [] Sitter [x] Fall Risk Magnet on Door [x] Fall Risk Magnet on Schedule Board [] Wrist Coil Handoff in Place [x] Low Bed and Mats in Place [] Room Close to Nurses Station [] Other: Refused pain pill, still wearing soft collar. Patient Education on Medications Education provided Re: Kaitlin Bond This education was provided to the patient Name of medication: lovenox The education included the following: How to identify their medication, Administering their medication, Storage of their medication, Understanding the side effects of their medication Kati Joshua RN NCIAL REPORTING MANAGER * Yasmin Vieyra DO - 03/13/2017 12:39 PM CST Physical Medicine and Rehabilitation Progress Note Admission Date: 03/03/2017 Chief complaint: I feel better Subjective: Patient seen and examined during morning rounds. In good spirits. Patient is pleased with her rehabilitation progress. She states that her neck pain is under good control and averages a 2/10 in severity. She is sleeping better with Lunesta. No problems with her bowels and she had a bowel movement yesterday. Good oral intake. Her mood is stable. She is looking forward to discharge home on Monday and is agreeable to continue therapy in the outpatient setting. She notices good improvement from the soft collar. No dizziness Functional status: Stand by assistance for ambulation with a walker ROS: As per HPI and: No fever, chills, Nausea or vomiting Social History: Lives alone in a single-story home with her spouse. Medications reviewed. Objective: Vitals: BP 99/82 Pulse (!) 104 Temp 98.1 ??F (36.7 ??C) (Oral) Resp 16 Ht 5' 3 (1.6 m) Wt 59.4 kg (131 lb) SpO2 100% BMI 23.21 kg/m?? General:alert, no distress and Working with PT HEENT: Soft collar in place Lungs:clear to auscultation bilaterally, Normal respirations CV: Regular rate and rhythm Abd: Soft, non-tender. Bowel sounds present Ext: No leg edema Neuro: speech is fluent and intact MSK: Ambulation with a rolling walker reveals good base of support, increased visual cueing, no foot drop or drag, stand by assist from therapist Data Review: Lab Results Component Value Date/Time WBC 7.6 03/13/2017 06:30 AM HGB 13.1 03/13/2017 06:30 AM HCT 38.8 03/13/2017 06:30 AM PLT 509 (H) 03/13/2017 06:30 AM MCV 88.0 03/13/2017 06:30 AM Lab Results Component Value Date/Time NA 131 (L) 03/13/2017 06:30 AM K 4.1 03/13/2017 06:30 AM CL 91 (L) 03/13/2017 06:30 AM CO2 26 03/13/2017 06:30 AM CA 9.4 03/13/2017 06:30 AM BUN 9 03/13/2017 06:30 AM CREAT 0.65 03/13/2017 06:30 AM GLUCOSE 94 03/13/2017 06:30 AM TOTALPROTEIN 6.6 (L) 03/04/2017 06:00 AM ALBUMIN 4.0 03/04/2017 06:00 AM BILITOTAL 0.3 03/04/2017 06:00 AM ALKPHOS 87 03/04/2017 06:00 AM AST 28 03/04/2017 06:00 AM ALT 27 03/04/2017 06:00 AM ANIONGAP 14 03/13/2017 06:30 AM ASSESSMENT/PLAN: Melly is a 66-year-old, right-handed female who presents for acute inpatient rehabilitation aftera C3-4 anterior cervical discectomy, C3-4 arthrodesis, C3-4 instrumentation on 02/16/[address] Gutierrez secondary to cervical stenosis with myelopathy and frequent falls Rehab: -Continue PT/OT, recreation therapy, and rehab nursing to maximize functional status. Barriers: personal caregiver, precautions, pain, endurance, balance, strength. Goals: Mod I for ADLs/mobility -Precautions: fall, spinal--no bracing--Trial a soft collar for comfort -Team conference: weekly -Cervical myelopathy status post surgery: Comprehensive rehabilitative program to maximize functional independence. Monitor bowel/bladder as below. Pain control as below. No bracing required as per surgeon Pain: -Neck pain: Patient would like to avoid narcotics if possible. Continue Robaxin. Cont Lunesta. Off zanaflex -Spasms: Discontinuee Valium as per patient request. Muscle relaxers as above -Left rib pain from fall: Improving, continue Lidoderm patch, encourage incentive spirometry -Neuropathic pain: Continue Cymbalta, continue B12 Bowel: -Continent, monitor stooling and adjust oral agents as needed--senna S at bedtime, last BM 03/12 Bladder: -Continent, UA negative Prophylaxis: DVT prophylaxis: Lovenox Bone healing: Continue calcium with vitamin D GI prophylaxis: Protonix Skin: -turn every 2 hours, encourage pressure reliefs -ok to shower and get incision wet Mental health -Depression: Continue Prozac, Cymbalta. Consulted rehabilitation psychology FEN -Continue regular consistency diet -Replete electrolytes as needed -Labs reviewed and shows stable CBC. Chemistry panel shows persistent hyponatremia, patient is asymptomatic. Continue salt tablets, recheck labs tomorrow Remainder as per Internal Medicine, Dr. Elias, including: -Hypertension: Continue lisinopril, Norvasc -Hypothyroidism: Continue Synthroid -Hyponatremia, continue to monitor. -Hyperlipidemia: Continue Lipitor Disposition: TDD: 03/15 to home with outpatient therapy Follow ups: -Gadiel Zavala MD 1-2 weeks after discharge from rehabilitation -Dr. Guillermo after discharge for rehab needs -Dr. Gutierrez as directed Total time spent: 25 minutes. Greater than 50% was spent counseling/coordinating care including discussion of pain regimen, bowel/bladder management and rehab progress. Yasmin Vieyra DO ATTESTATION STATEMENTS This note was transcribed using [employer] speaking computerized voice recognition without a human transmission line engineer. This report may or may not have been adjusted for typographical, grammaticaland syntax errors. NCIAL REPORTING MANAGER * Carson Elias MD - 03/13/2017 5:31 AM CST Images from the original note were not included. Internal Medicine Progress Note CARSON ELIAS MD 03/13/2017 Patient Name: Kaitlin Bond Admit Date: 03/03/2017 PCP: Gadiel Zavala MD Consult requested by Yasmin Reese DO Patient Name: Kaitlin Bond PCP: Gadiel Zavala MD Date of admission: 03/03/2017 Date of Service: 03/13/2017 Reason for Consultation: Medical Management Slept a little better. Sore throat improving; rapid strep neg, use Cepacol prn. Neck pain better with use of soft c collar; she is trying to avoid narcotics. Muscle relaxers help. Less rib pain, continue lidocaine patch. No fever, chills, chest pain, acute sob. Vitals acceptable. Bowel regimen. Encourage po, RD following. Na up to 133, better with NaCl tabs. Recheck labs today PMHx: Past Medical History: Diagnosis Date ??? [...] TUBAL LIGATION ??? KYPHOPLASTY, LUMBAR 2017 ??? [place] CERV SPINE FUSN,ANTER,BELOW C2 N/A 02/16/2017 CERVICAL DISCECTOMY FUSION 1 LEVEL ANTERIOR, C3-4 performed by Mylene Gutierrez MD at [facility] All: Allergies Allergen Reactions ??? Adhesive Rash ??? Adhesive Tape-Silicones Rash Reaction: RASH ??? Gadolinium-Containing Contrast Media Hives ??? Magnevist [Gadopentetate Dimeglumine] Hives Outpt Meds: Cannot display prior to admission medications because the patient has not been admitted in this contact. Inpatient Meds: Current Facility-Administered Medications: ??? qdvyhmtsqm-zubsgit-ckfdwmvnaajtb (CEPACOL) lozenge 1 Each, 1 Each, Mouth/Throat, q 3 hour PRN, Carson Elias MD, 1 Each at 03/12/172058 ??? melatonin tablet 3 mg, 3 mg, Oral, Daily BEDTIME, Carson Elias MD, 3 mg at 03/12/172058 ??? sennosides-docusate sodium (SENNA-S) 8.6-50 mg per tablet 1 Tablet, 1 Tablet, Oral, Daily BEDTIME, Yasmin Vieyra DO, 1 Tablet at 03/12/172058 ??? eszopiclone (LUNESTA) tablet 3 mg, 3 mg, Oral, Daily BEDTIME, Yasmin Vieyra DO, 3 mg at 03/12/172057 ??? sodium chloride tablet 1 Gram, 1 Gram, Oral, TID Meals, Carson Elias MD, 1 Gram at ??? magnesium hydroxide (MILK OF MAGNESIA) oral suspension 30 mL, 30 mL, Oral, Daily PRN, Carson Elias MD, 30 mL at 03/07/17 1354 ??? methocarbamol (ROBAXIN) tablet 500 mg, 500 mg, Oral, TID, Strike, Yasmin R, DO, 500 mg at 03/12/171712 ??? docusate sodium (COLACE) capsule 100 mg, 100 mg, Oral, BID, Strike, Yasmin R, DO, 100 mg at 03/12/172058 ??? acetaminophen (TYLENOL) tablet 650 mg, 650 mg, Oral, q 4 hour PRN, Strjuan, Yasmin R, DO ??? amLODIPine (NORVASC) tablet 10 mg, 10 mg, Oral, Daily, Strike, Yasmin R, DO, 10 mg at 836 ??? atorvastatin (LIPITOR) tablet 20 mg, 20 mg, Oral, Daily LATE, Strike, Yasmin R, DO, 20 mg at 03/12/171712 ??? cyanocobalamin (VITAMIN B-12) tablet 100 mcg, 100 mcg, Oral, Daily, Strike, Yasmin R, DO, 100 mcg at 03/12/17 0837 ??? DULoxetine (CYMBALTA) capsule 60 mg, 60 mg, Oral, Daily BEDTIME, Strjuan, Yasmin R, DO, 60 mg at 03/12/17 2100 ??? FLUoxetine (PROzac) capsule 40 mg, 40 mg, Oral, Daily BEDTIME, Strjuan, Yasmin R, DO, 40 mg at 03/12/17 2100 ??? levothyroxine (SYNTHROID) tablet 50 mcg, 50 mcg, Oral, Daily EARLY, Strjuan, Yasmin R, DO, 50 mcg at 03/12/17 0603 ??? lisinopril (PRINIVIL) tablet 40 mg, 40 mg, Oral, Daily BEDTIME, StrTari martinezissa R, DO, 40 mg at105/12/16 2100 ??? diphenhydrAMINE (BENADRYL) tablet 25 mg, 25 mg, Oral, q 6 hour PRN, Tari Vieyraissa R, DO ??? oxyCODONE-acetaminophen (PERCOCET) 5-325 mg per tablet 1 Tablet, 1 Tablet, Oral, q 4 hour PRN, Yasmin Vieyra R, DO, 1 Tablet at 03/09/172208 ??? naloxone (NARCAN) 0.4 mg/mL injection 0.1 mg, 0.1 mg, IV, See Admin Notes, StrYasmin martinez DO ??? ondansetron (ZOFRAN ODT) tablet 4 mg, 4 mg, Oral, q 6 hour PRN, Yasmin Vieyra DO, 4 mg at 03/04/17 0542 ??? bisacodyl (DULCOLAX) rectal suppository 10 mg, 10 mg, Rectal, Daily PRN, Yasmin Vieyra DO,10 mg at 03/12/172114 ??? enoxaparin (LOVENOX) injection 40 mg, 40 mg, subCUT, q 24 hour, Yasmin Vieyra DO, 40 mg at105/12/162057 ??? pantoprazole (PROTONIX) tablet 40 mg, 40 mg, Oral, Daily, Yasmin Vieyra DO, 40 mg at 03/12/17 0602 ??? calcium-cholecalciferol (OS-IAN 500+D) tablet 1 Tablet, 1 Tablet, Oral, Daily, Yasmin Vieyra DO, 1 Tablet at 03/12/17 0837 SocHx: Social History Substance Use Topics ??? Smoking status: Former Smoker Years: 5.00 Types: Cigarettes Quit date: 1988 ??? Smokeless tobacco: Never Used Comment: 4 per day ??? Alcohol use Yes Comment: 1-2 times per month 1 drink FamHx: No family history on file. Review of Systems History from chart review and the patient General positive for - fatigue ENT negative for nasal congestion, drainage or bleeding, sore throat, dysphagia or ear pain Heme/Lymph negative for swollen glands or abnormal bleeding Endocrine negative for polyuria/polydipsia or new changes in weight CV negative for chest pain or dyspnea on exertion Respiratory negative for cough, shortness of breath, or wheezing GI positive for - change in bowel habits positive for - change in urinary stream MS positive for - gait disturbance, joint pain and muscular weakness Neuro positive for - gait disturbance, impaired coordination/balance and weakness All Other ROS Negative BP 119/80 (BP Location: Left arm, Patient Position (BP): Supine) Pulse 92 Temp 97.9 ??F (36.6 ??C) (Oral) Resp 18 Ht 5' 3 (1.6 m) Wt 58.1 kg (128 lb 1.6 oz) SpO2 95% BMI 22.69 kg/m?? General appearance Alert, no distress Head Normocephalic, without obvious abnormality, atraumatic Eyes PERRL, EOM's intact. Throat Oropharynx clear Neck Supple, post op changes healing Lungs Clear to auscultation bilaterally Heart Regular rate and rhythm Abdomen Soft, non-tender. Bowel sounds normal. Extremities No edema Neurologic moves all extremities, RLE weaker than LLE CBC: Recent Labs 03/11/17 1106 WBC 6.3 HGB 12.4 HCT 36.9 PLT 472* MCV 88.9 BMP: Recent Labs 03/11/17 1105 GLUCOSE 111* BUN 7* CREAT 0.59 NA 133* K 4.1 CL 95* CO2 25 ANIONGAP 13 CA 9.4 EKG: unchanged from previous tracings CXR: No results found for this or any previous visit. Patient Active Problem List Diagnosis Code ??? Cervical stenosis of spine M48.02 ??? Essential hypertension I10 ??? Depression F32.9 ??? Fall W19.XXXA ??? Cervical myelopathy G95.9 1. Cervical stenosis of spine with myelopathy: s/p C3-4 ACDF, Dr Gutierrez. Recurrent falls and persistent weakness. Comprehensive rehab program. Pain control, wound care, f/u with neurosurgery as arranged. Fall precautions. Ca + D 2. Hypertension: Lisinopril, norvasc. Adjust as required for improved control 3. Hypothyroidism: synthroid 4. Depression/anxiety: Prozac, cymbalta 5. GERD: PPI 6. B12 def: Supplement 7. Constipation: Bowel regimen Thank you for involving me in this patient's care. I will continue to follow along with you. ?? DVT Prophylaxis lovenox ?? GI prophylaxis: proton pump inhibitor ?? Code Status Full Code 35 min were spent in the care of this patient today; this may have included family conferences, nursing conferences and discussion with any consultants CARSON ELIAS MD NCIAL REPORTING MANAGER * Carson Elias MD - 03/12/2017 5:40 AM CST Images from the original note were not included. Internal Medicine Progress Note CARSON ELIAS MD 03/12/2017 Patient Name: Kaitlin Bond Admit Date: 03/03/2017 PCP: Gadiel Zavala MD Consult requested by Yasmin Reese R, DO Patient Name: Kaitlin Bond PCP: Gadiel Zavala MD Date of admission: 03/03/2017 Date of Service: 03/12/2017 Reason for Consultation: Medical Management Didn't sleep well. C/o sore throat, check rapid strep. Cepacol prn. Neck pain improving. Continue soft c collar for comfort; she is trying to avoid narcotics. Muscle relaxers help. Less rib pain, continue lidocaine patch. No fever, chills, chest pain, acute sob. Vitals acceptable. Bowel regimen. Encourage po, RD following. Na up to 133, better with NaCl tabs. Recheck labs tomorrow.. PMHx: Past Medical History: Diagnosis Date ??? [...] TUBAL LIGATION ??? KYPHOPLASTY, LUMBAR 2017 ??? [place] CERV SPINE FUSN,ANTER,BELOW C2 N/A 02/16/2017 CERVICAL DISCECTOMY FUSION 1 LEVEL ANTERIOR, C3-4 performed by Mylene Gutierrez MD at [facility] OR [facility] All: Allergies Allergen Reactions ??? Adhesive Rash ??? Adhesive Tape-Silicones Rash Reaction: RASH ??? Gadolinium-Containing Contrast Media Hives ??? Magnevist [Gadopentetate Dimeglumine] Hives Outpt Meds: Cannot display prior to admission medications because the patient has not been admitted in this contact. Inpatient Meds: Current Facility-Administered Medications: ??? sennosides-docusate sodium (SENNA-S) 8.6-50 mg per tablet 1 Tablet, 1 Tablet, Oral, Daily BEDTIME, Strike, Yasmin R, DO, 1 Tablet at 03/11/172101 ??? eszopiclone (LUNESTA) tablet 3 mg, 3 mg, Oral, Daily BEDTIME, Strike, Yasmin R, DO, 3 mg at 03/11/172101 ??? sodium chloride tablet 1 Gram, 1 Gram, Oral, TID Meals, Carson Elias MD, 1 Gram at ??? magnesium hydroxide (MILK OF MAGNESIA) oral suspension 30 mL, 30 mL, Oral, Daily PRN, Carson Elias MD, 30 mL at 03/07/17 1354 ??? methocarbamol (ROBAXIN) tablet 500 mg, 500 mg, Oral, TID, Strike, Yasmin R, DO, 500 mg at 03/11/171728 ??? docusate sodium (COLACE) capsule 100 mg, 100 mg, Oral, BID, Strike, Yasmin R, DO, 100 mg at 03/11/172101 ??? acetaminophen (TYLENOL) tablet 650 mg, 650 mg, Oral, q 4 hour PRN, Strike, Yasmin R, DO ??? amLODIPine (NORVASC) tablet 10 mg, 10 mg, Oral, Daily, Strike, Yasmin R, DO, 10 mg at ??? atorvastatin (LIPITOR) tablet 20 mg, 20 mg, Oral, Daily LATE, Strike, Yasmin R, DO, 20 mg at 03/11/171728 ??? cyanocobalamin (VITAMIN B-12) tablet 100 mcg, 100 mcg, Oral, Daily, Strike, Yasmin R, DO, 100 mcg at 03/11/17 0901 ??? DULoxetine (CYMBALTA) capsule 60 mg, 60 mg, Oral, Daily BEDTIME, Strike, Yasmin R, DO, 60 mg at 03/11/172100 ??? FLUoxetine (PROzac) capsule 40 mg, 40 mg, Oral, Daily BEDTIME, Strike, Yasmin R, DO, 40 mg at 03/11/172100 ??? levothyroxine (SYNTHROID) tablet 50 mcg, 50 mcg, Oral, Daily EARLY, Strike, Yasmin R, DO, 50 mcg at 03/11/17 0545 ??? lisinopril (PRINIVIL) tablet 40 mg, 40 mg, Oral, Daily BEDTIME, Yasmin Vieyra R DO, 40 mg at105/11/162100 ??? diphenhydrAMINE (BENADRYL) tablet 25 mg, 25 mg, Oral, q 6 hour PRN, Yasmin Vieyra, DO ??? oxyCODONE-acetaminophen (PERCOCET) 5-325 mg per tablet 1 Tablet, 1 Tablet, Oral, q 4 hour PRN, Yasmin Vieyra, DO, 1 Tablet at 03/09/172208 ??? naloxone (NARCAN) 0.4 mg/mL injection 0.1 mg, 0.1 mg, IV, See Admin Notes, Yasmin Vieyra DO ??? ondansetron (ZOFRAN ODT) tablet 4 mg, 4 mg, Oral, q 6 hour PRN, Yasmin Vieyra DO, 4 mg at 03/04/17 0542 ??? bisacodyl (DULCOLAX) rectal suppository 10 mg, 10 mg, Rectal, Daily PRN, Yasmin Vieyra, DO,10 mg at 03/09/17 0951 ??? enoxaparin (LOVENOX) injection 40 mg, 40 mg, subCUT, q 24 hour, Yasmin Vieyra R, DO, 40 mg at105/11/162100 ??? pantoprazole (PROTONIX) tablet 40 mg, 40 mg, Oral, Daily, Yasmin Vieyra DO, 40 mg at 03/11/17 0545 ??? calcium-cholecalciferol (OS-IAN 500+D) tablet 1 Tablet, 1 Tablet, Oral, Daily, Yasmin Vieyra DO, 1 Tablet at 03/11/17 0901 SocHx: Social History Substance Use Topics ??? Smoking status: Former Smoker Years: 5.00 Types: Cigarettes Quit date: 1988 ??? Smokeless tobacco: Never Used Comment: 4 per day ??? Alcohol use Yes Comment: 1-2 times per month 1 drink FamHx: No family history on file. Review of Systems History from chart review and the patient General positive for - fatigue ENT negative for nasal congestion, drainage or bleeding, sore throat, dysphagia or ear pain Heme/Lymph negative for swollen glands or abnormal bleeding Endocrine negative for polyuria/polydipsia or new changes in weight CV negative for chest pain or dyspnea on exertion Respiratory negative for cough, shortness of breath, or wheezing GI positive for - change in bowel habits positive for - change in urinary stream MS positive for - gait disturbance, joint pain and muscular weakness Neuro positive for - gait disturbance, impaired coordination/balance and weakness All Other ROS Negative BP 138/89 (BP Location: Left arm, Patient Position (BP): Sitting) Pulse 89 Temp 98 ??F (36.7 ??C) Resp 18 Ht 5' 3 (1.6 m) Wt 58.6 kg (129 lb 3.2 oz) SpO2 99% BMI 22.89 kg/m?? General appearance Alert, no distress Head Normocephalic, without obvious abnormality, atraumatic Eyes PERRL, EOM's intact. Throat Oropharynx clear Neck Supple, post op changes healing Lungs Clear to auscultation bilaterally Heart Regular rate and rhythm Abdomen Soft, non-tender. Bowel sounds normal. Extremities No edema Neurologic moves all extremities, RLE weaker than LLE CBC: Recent Labs 03/09/17 0730 03/11/17 1106 WBC 7.6 6.3 HGB 13.3 12.4 HCT 39.1 36.9 PLT 547* 472* MCV 88.3 88.9 BMP: Recent Labs 03/09/17 0730 03/11/17 1105 GLUCOSE 101* 111* BUN 9 7* CREAT 0.59 0.59 NA 131* 133* K 4.7 4.1 CL 92* 95* CO2 24 25 ANIONGAP 15 13 CA 9.6 9.4 EKG: unchanged from previous tracings CXR: No results found for this or any previous visit. Patient Active Problem List Diagnosis Code ??? Cervical stenosis of spine M48.02 ??? Essential hypertension I10 ??? Depression F32.9 ??? Fall W19.XXXA ??? Cervical myelopathy G95.9 1. Cervical stenosis of spine with myelopathy: s/p C3-4 ACDF, Dr Gutierrez. Recurrent falls and persistent weakness. Comprehensive rehab program. Pain control, wound care, f/u with neurosurgery as arranged. Fall precautions. Ca + D 2. Hypertension: Lisinopril, norvasc. Adjust as required for improved control 3. Hypothyroidism: synthroid 4. Depression/anxiety: Prozac, cymbalta 5. GERD: PPI 6. B12 def: Supplement 7. Constipation: Bowel regimen Thank you for involving me in this patient's care. I will continue to follow along with you. ?? DVT Prophylaxis lovenox ?? GI prophylaxis: proton pump inhibitor ?? Code Status Full Code 35 min were spent in the care of this patient today; this may have included family conferences, nursing conferences and discussion with any consultants CARSON ELIAS MD NCIAL REPORTING MANAGER * Finesse Zheng MD - 03/11/2017 3:58 PM CST Physical Medicine and Rehabilitation Progress Note Admission Date: 03/03/2017 Chief complaint: I slept well Subjective: Patient seen and examined during morning rounds. Slept well, cont lunesta. In good spirits. Soft C-collar for comfort. She continues to participate well in therapy. Na 133, cont NaCl tabs, follow BMP. Functional status: Discussed in team conference. See below. ROS: As per HPI and: No fever, chills, chest pain or cough Social History: Lives alone in a single-story home with her spouse. Medications reviewed. Objective: Vitals: BP 122/84 Pulse 81 Temp 97.6 ??F (36.4 ??C) (Oral) Resp 16 Ht 5' 3 (1.6 m) Wt 58.6 kg (129 lb 3.2 oz) SpO2 97% BMI 22.89 kg/m?? General:alert, no distress and Sitting in wheelchair, therapy at side HEENT: anterior neck incision with dermabond, open to air Lungs:clear to auscultation bilaterally, No wheezing/rhonchi CV: Regular rate and rhythm Abd: Soft, non-tender. Bowel sounds active Ext: No leg edema Neuro: speech is fluent and intact Data Review: Lab Results Component Value Date/Time WBC 6.3 03/11/2017 11:06 AM HGB 12.4 03/11/2017 11:06 AM HCT 36.9 03/11/2017 11:06 AM PLT 472 (H) 03/11/2017 11:06 AM MCV 88.9 03/11/2017 11:06 AM Lab Results Component Value Date/Time NA 133 (L) 03/11/2017 11:05 AM K 4.1 03/11/2017 11:05 AM CL 95 (L) 03/11/2017 11:05 AM CO2 25 03/11/2017 11:05 AM CA 9.4 03/11/2017 11:05 AM BUN 7 (L) 03/11/2017 11:05 AM CREAT 0.59 03/11/2017 11:05 AM GLUCOSE 111 (H) 03/11/2017 11:05 AM TOTALPROTEIN 6.6 (L) 03/04/2017 06:00 AM ALBUMIN 4.0 03/04/2017 06:00 AM BILITOTAL 0.3 03/04/2017 06:00 AM ALKPHOS 87 03/04/2017 06:00 AM AST 28 03/04/2017 06:00 AM ALT 27 03/04/2017 06:00 AM ANIONGAP 13 03/11/2017 11:05 AM ASSESSMENT/PLAN: Melly is a 66-year-old, right-handed female who presents for acute inpatient rehabilitation aftera C3-4 anterior cervical discectomy, C3-4 arthrodesis, C3-4 instrumentation on 02/16/[address] Gutierrez secondary to cervical stenosis with myelopathy and frequent falls Rehab: -Continue PT/OT, recreation therapy, and rehab nursing to maximize functional status. Barriers: personal caregiver, precautions, pain, endurance, balance, strength. Goals: Mod I for ADLs/mobility -Precautions: fall, spinal--no bracing--Trial a soft collar for comfort -Team conference: weekly -Cervical myelopathy status post surgery: Comprehensive rehabilitative program to maximize functional independence. Monitor bowel/bladder as below. Pain control as below. No bracing required as per surgeon -Discussed in team conference with nursing, therapy and acute care clinical nurse specialist. See note for details. Highlights include: independent for feeding; stand by for grooming/upper body dressing, min for other ADLS..min assist for transfers, stand by for bed mobility, min for ambulation with walker, stand by for w heelchair skills. 12 stairs with 2 rails at min assist. Pain: -Neck pain: Patient would like to avoid narcotics if possible. Continue Robaxin. Cont Lunesta. Off zanaflex -Spasms: Discontinuee Valium as per patient request. Muscle relaxers as above -Left rib pain from fall: Improving, continue Lidoderm patch, encourage incentive spirometry -Neuropathic pain: Continue Cymbalta, continue B12 Bowel: -Continent, monitor stooling and adjust oral agents as needed--senna S at bedtime Bladder: -Continent, UA negative Prophylaxis: DVT prophylaxis: Lovenox Bone healing: Continue calcium with vitamin D GI prophylaxis: Protonix Skin: -turn every 2 hours, encourage pressure reliefs -ok to shower and get incision wet Mental health -Depression: Continue Prozac, Cymbalta. Consulted rehabilitation psychology FEN -Continue regular consistency diet -Replete electrolytes as needed Remainder as per Internal Medicine, Dr. Elias, including: -Hypertension: Continue lisinopril, Norvasc -Hypothyroidism: Continue Synthroid -Hyponatremia, continue to monitor. -Hyperlipidemia: Continue Lipitor Disposition: TDD: 03/17 to home with outpatient therapy Follow ups: -Gadiel Zavala MD 1-2 weeks after discharge from rehabilitation -Dr. Guillermo after discharge for rehab needs -Dr. Gutierrez as directed Total time spent: 25 minutes. Greater than 50% was spent counseling/coordinating care including discussion of pain regimen, bowel/bladder management and rehab progress. Finesse Zheng MD ATTESTATION STATEMENTS This note was transcribed using [employer] speaking computerized voice recognition without a human transmission line engineer. This report may or may not have been adjusted for typographical, grammaticaland syntax errors. NCIAL REPORTING MANAGER * Carson Elias MD - 03/11/2017 5:30 AM CST Images from the original note were not included. Internal Medicine Progress Note CARSON ELIAS MD 03/11/2017 Patient Name: Kaitlin Bond Admit Date: 03/03/2017 PCP: Gadiel Zavala MD Consult requested by Yasmin Reese DO Patient Name: Kaitlin Bond PCP: Gadiel Zavala MD Date of admission: 03/03/2017 Date of Service: 03/11/2017 Reason for Consultation: Medical Management Slept most of the night. Prefers to wear soft c collar for comfort; she is trying to avoid narcotics. Muscle relaxers help. Less rib pain, continue lidocaine patch. No fever, chills, chest pain, acute sob. Vitals acceptable. Bowel regimen. Encourage po, RD following. Na 131, added NaCl tabs, followBMP. PMHx: Past Medical History: Diagnosis Date ??? [...] C3-4 performed by Mylene Gutierrez MD at [facility] All: Allergies Allergen Reactions ??? Adhesive Rash ??? Adhesive Tape-Silicones Rash Reaction: RASH ??? Gadolinium-Containing Contrast Media Hives ??? Magnevist [Gadopentetate Dimeglumine] Hives Outpt Meds: Cannot display prior to admission medications because the patient has not been admitted in this contact. Inpatient Meds: Current Facility-Administered Medications: ??? sennosides-docusate sodium (SENNA-S) 8.6-50 mg per tablet 1 Tablet, 1 Tablet, Oral, Daily BEDTIME, Yasmin Vieyra DO, 1 Tablet at 03/10/172112 ??? eszopiclone (LUNESTA) tablet 3 mg, 3 mg, Oral, Daily BEDTIME, Yasmin Vieyra DO, 3 mg at 03/10/172105 ??? sodium chloride tablet 1 Gram, 1 Gram, Oral, TID Meals, Curt, Carson J, MD, 1 Gram at ??? magnesium hydroxide (MILK OF MAGNESIA) oral suspension 30 mL, 30 mL, Oral, Daily PRN, Carson Elias MD, 30 mL at 03/07/17 1354 ??? methocarbamol (ROBAXIN) tablet 500 mg, 500 mg, Oral, TID, Strike, Yasmin R, DO, 500 mg at 03/10/172008 ??? docusate sodium (COLACE) capsule 100 mg, 100 mg, Oral, BID, Strike, Yasmin R, DO, 100 mg at 03/10/17 2100 ??? acetaminophen (TYLENOL) tablet 650 mg, 650 mg, Oral, q 4 hour PRN, Strike, Yasmin R, DO ??? amLODIPine (NORVASC) tablet 10 mg, 10 mg, Oral, Daily, Strike, Yasmin R, DO, 10 mg at ??? atorvastatin (LIPITOR) tablet 20 mg, 20 mg, Oral, Daily LATE, Strike, Yasmin R, DO, 20 mg at 03/10/172008 ??? cyanocobalamin (VITAMIN B-12) tablet 100 mcg, 100 mcg, Oral, Daily, Strike, Yasmin R, DO, 100 mcg at 03/10/17 1005 ??? DULoxetine (CYMBALTA) capsule 60 mg, 60 mg, Oral, Daily BEDTIME, Strike, Yasmin R, DO, 60 mg at 03/10/172113 ??? FLUoxetine (PROzac) capsule 40 mg, 40 mg, Oral, Daily BEDTIME, Strike, Yasmin R, DO, 40 mg at 03/10/172105 ??? levothyroxine (SYNTHROID) tablet 50 mcg, 50 mcg, Oral, Daily EARLY, Strike, Yasmin R, DO, 50 mcg at 03/10/17 0521 ??? lisinopril (PRINIVIL) tablet 40 mg, 40 mg, Oral, Daily BEDTIME, Strike, Yasmin R, DO, 40 mg at105/10/168 ??? diphenhydrAMINE (BENADRYL) tablet 25 mg, 25 mg, Oral, q 6 hour PRN, Strike, Yasmin R, DO ??? oxyCODONE-acetaminophen (PERCOCET) 5-325 mg per tablet 1 Tablet, 1 Tablet, Oral, q 4 hour PRN, Yasmin Vieyra DO, 1 Tablet at 03/09/17 2209 ??? naloxone (NARCAN) 0.4 mg/mL injection 0.1 mg, 0.1 mg, IV, See Admin Notes, Yasmin Vieyra DO ??? ondansetron (ZOFRAN ODT) tablet 4 mg, 4 mg, Oral, q 6 hour PRN, Yasmin Vieyra DO, 4 mg at 03/04/17 0542 ??? bisacodyl (DULCOLAX) rectal suppository 10 mg, 10 mg, Rectal, Daily PRN, Yasmin Vieyra DO,10 mg at 03/09/17 0951 ??? enoxaparin (LOVENOX) injection 40 mg, 40 mg, subCUT, q 24 hour, Yasmin Vieyra DO, 40 mg at105/10/16 2113 ??? pantoprazole (PROTONIX) tablet 40 mg, 40 mg, Oral, Daily, Yasmin Vieyra DO, 40 mg at 03/10/17 0521 ??? calcium-cholecalciferol (OS-IAN 500+D) tablet 1 Tablet, 1 Tablet, Oral, Daily, Yasmin Vieyra DO, 1 Tablet at 03/10/17 1001 SocHx: Social History Substance Use Topics ??? Smoking status: Former Smoker Years: 5.00 Types: Cigarettes Quit date: 1988 ??? Smokeless tobacco: Never Used Comment: 4 per day ??? Alcohol use Yes Comment: 1-2 times per month 1 drink FamHx: No family history on file. Review of Systems History from chart review and the patient General positive for - fatigue ENT negative for nasal congestion, drainage or bleeding, sore throat, dysphagia or ear pain Heme/Lymph negative for swollen glands or abnormal bleeding Endocrine negative for polyuria/polydipsia or new changes in weight CV negative for chest pain or dyspnea on exertion Respiratory negative for cough, shortness of breath, or wheezing GI positive for - change in bowel habits positive for - change in urinary stream MS positive for - gait disturbance, joint pain and muscular weakness Neuro positive for - gait disturbance, impaired coordination/balance and weakness All Other ROS Negative BP (!) 145/88 Pulse 100 Temp 97.4 ??F (36.3 ??C) (Oral) Resp 16 Ht 5' 3 (1.6 m) Wt 59.9 kg (132 lb) SpO2 98% BMI 23.38 kg/m?? General appearance Alert, no distress Head Normocephalic, without obvious abnormality, atraumatic Eyes PERRL, EOM's intact. Throat Oropharynx clear Neck Supple, post op changes healing Lungs Clear to auscultation bilaterally Heart Regular rate and rhythm Abdomen Soft, non-tender. Bowel sounds normal. Extremities No edema Neurologic moves all extremities, RLE weaker than LLE CBC: Recent Labs 03/08/17 0706 03/09/17 0730 WBC 7.2 7.6 HGB 12.4 13.3 HCT 36.2 39.1 PLT 479* 547* MCV 87.4 88.3 BMP: Recent Labs 03/08/17 0706 03/09/17 0730 GLUCOSE 85 101* BUN 8 9 CREAT 0.65 0.59 NA 131* 131* K 3.9 4.7 CL 91* 92* CO2 26 24 ANIONGAP 14 15 CA 9.0 9.6 EKG: unchanged from previous tracings CXR: No results found for this or any previous visit. Patient Active Problem List Diagnosis Code ??? Cervical stenosis of spine M48.02 ??? Essential hypertension I10 ??? Depression F32.9 ??? Fall W19.XXXA ??? Cervical myelopathy G95.9 1. Cervical stenosis of spine with myelopathy: s/p C3-4 ACDF, Dr Gutierrez. Recurrent falls and persistent weakness. Comprehensive rehab program. Pain control, wound care, f/u with neurosurgery as arranged. Fall precautions. Ca + D 2. Hypertension: Lisinopril, norvasc. Adjust as required for improved control 3. Hypothyroidism: synthroid 4. Depression/anxiety: Prozac, cymbalta 5. GERD: PPI 6. B12 def: Supplement 7. Constipation: Bowel regimen Thank you for involving me in this patient's care. I will continue to follow along with you. ?? DVT Prophylaxis lovenox ?? GI prophylaxis: proton pump inhibitor ?? Code Status Full Code 35 min were spent in the care of this patient today; this may have included family conferences, nursing conferences and discussion with any consultants CARSON ELIAS MD NCIAL REPORTING MANAGER * Carson Elias MD - 03/10/2017 5:39 AM CST Images from the original note were not included. Internal Medicine Progress Note CARSON ELIAS MD 03/10/2017 Patient Name: Kaitlin Bond Admit Date: 03/03/2017 PCP: Gadiel Zavala MD Consult requested by Yasmin Reese DO Patient Name: Kaitlin Bond PCP: Gadiel Zavala MD Date of admission: 03/03/2017 Date of Service: 03/10/2017 Reason for Consultation: Medical Management Slept. C/o 09/07 neck pain. Using muscle relaxers and soft C collar for comfort. Less rib pain, continue lidocaine patch. No fever, chills, chest pain, acute sob. No dysphagia. Vitals acceptable. Bowel regimen. Poor po intake, encourage po. Protein shakes in AM per pt request. RD following. Na 131, added NaCl tabs, follow BMP. PMHx: Past Medical History: Diagnosis Date ??? [...] C3-4 performed by Mylene Gutierrez MD at [facility] All: Allergies Allergen Reactions ??? Adhesive Rash ??? Adhesive Tape-Silicones Rash Reaction: RASH ??? Gadolinium-Containing Contrast Media Hives ??? Magnevist [Gadopentetate Dimeglumine] Hives Outpt Meds: Cannot display prior to admission medications because the patient has not been admitted in this contact. Inpatient Meds: Current Facility-Administered Medications: ??? sennosides-docusate sodium (SENNA-S) 8.6-50 mg per tablet 1 Tablet, 1 Tablet, Oral, Daily BEDTIME, Azalia, Yasmin R, DO, 1 Tablet at 03/09/172207 ??? eszopiclone (LUNESTA) tablet 3 mg, 3 mg, Oral, Daily BEDTIME, Azalia Yasmin R, DO, 3 mg at 03/09/172206 ??? sodium chloride tablet 1 Gram, 1 Gram, Oral, TID Meals, Carson Elias MD, 1 Gram at ??? magnesium hydroxide (MILK OF MAGNESIA) oral suspension 30 mL, 30 mL, Oral, Daily PRN, Carson Elias MD, 30 mL at 03/07/17 1354 ??? methocarbamol (ROBAXIN) tablet 500 mg, 500 mg, Oral, TID, Strjuan, Yasmin R, DO, 500 mg at 03/09/171812 ??? docusate sodium (COLACE) capsule 100 mg, 100 mg, Oral, BID, Strike, Yasmin R, DO, 100 mg at 03/09/172208 ??? acetaminophen (TYLENOL) tablet 650 mg, 650 mg, Oral, q 4 hour PRN, Strike, Yasmin R, DO ??? amLODIPine (NORVASC) tablet 10 mg, 10 mg, Oral, Daily, Strike, Yasmin R, DO, 10 mg at ??? atorvastatin (LIPITOR) tablet 20 mg, 20 mg, Oral, Daily LATE, Strike, Yasmin R, DO, 20 mg at 03/09/171812 ??? cyanocobalamin (VITAMIN B-12) tablet 100 mcg, 100 mcg, Oral, Daily, Strike, Yasmin R, DO, 100 mcg at 03/09/17922 ??? DULoxetine (CYMBALTA) capsule 60 mg, 60 mg, Oral, Daily BEDTIME, Strike, Yasmin R, DO, 60 mg at 03/09/172206 ??? FLUoxetine (PROzac) capsule 40 mg, 40 mg, Oral, Daily BEDTIME, Strike, Yasmin R, DO, 40 mg at 03/09/172208 ??? levothyroxine (SYNTHROID) tablet 50 mcg, 50 mcg, Oral, Daily EARLY, Strike, Yasmin R, DO, 50 mcg at 03/09/17 0600 ??? lisinopril (PRINIVIL) tablet 40 mg, 40 mg, Oral, Daily BEDTIME, Strike, Yasmin R, DO, 40 mg at105/09/162212 ??? diphenhydrAMINE (BENADRYL) tablet 25 mg, 25 mg, Oral, q 6 hour PRN, Strike, Yasmin R, DO ??? oxyCODONE-acetaminophen (PERCOCET) 5-325 mg per tablet 1 Tablet, 1 Tablet, Oral, q 4 hour PRN, Strike, Yasmin R, DO, 1 Tablet at 03/09/172208 ??? naloxone (NARCAN) 0.4 mg/mL injection 0.1 mg, 0.1 mg, IV, See Admin Notes, Strike, Yasmin R, DO ??? ondansetron (ZOFRAN ODT) tablet 4 mg, 4 mg, Oral, q 6 hour PRN, Strike, Yasmin R, DO, 4 mg at 03/04/17 0542 ??? bisacodyl (DULCOLAX) rectal suppository 10 mg, 10 mg, Rectal, Daily PRN, Strike, Yasmin R, DO,10 mg at 03/09/17 0951 ??? enoxaparin (LOVENOX) injection 40 mg, 40 mg, subCUT, q 24 hour, Strike, Yasmin R, DO, 40 mg at105/09/162209 ??? pantoprazole (PROTONIX) tablet 40 mg, 40 mg, Oral, Daily, Strike, Yasmin R, DO, 40 mg at 03/09/17 0600 ??? calcium-cholecalciferol (OS-IAN 500+D) tablet 1 Tablet, 1 Tablet, Oral, Daily, Yasmin Vieyra R, DO, 1 Tablet at 03/09/17 0922 SocHx: Social History Substance Use Topics ??? Smoking status: Former Smoker Years: 5.00 Types: Cigarettes Quit date: 1988 ??? Smokeless tobacco: Never Used Comment: 4 per day ??? Alcohol use Yes Comment: 1-2 times per month 1 drink FamHx: No family history on file. Review of Systems History from chart review and the patient General positive for - fatigue ENT negative for nasal congestion, drainage or bleeding, sore throat, dysphagia or ear pain Heme/Lymph negative for swollen glands or abnormal bleeding Endocrine negative for polyuria/polydipsia or new changes in weight CV negative for chest pain or dyspnea on exertion Respiratory negative for cough, shortness of breath, or wheezing GI positive for - change in bowel habits positive for - change in urinary stream MS positive for - gait disturbance, joint pain and muscular weakness Neuro positive for - gait disturbance, impaired coordination/balance and weakness All Other ROS Negative BP 132/88 Pulse 82 Temp 97.4 ??F (36.3 ??C) (Oral) Resp 20 Ht 5' 3 (1.6 m) Wt 59.9 kg (132 lb) SpO2 98% BMI 23.38 kg/m?? General appearance Alert, no distress Head Normocephalic, without obvious abnormality, atraumatic Eyes PERRL, EOM's intact. Throat Oropharynx clear Neck Supple, post op changes healing Lungs Clear to auscultation bilaterally Heart Regular rate and rhythm Abdomen Soft, non-tender. Bowel sounds normal. Extremities No edema Neurologic moves all extremities, RLE weaker than LLE CBC: Recent Labs 03/07/17 0740 03/08/17 0706 03/09/17 0730 WBC 7.5 7.2 7.6 HGB 14.0 12.4 13.3 HCT 41.2 36.2 39.1 PLT 597* 479* 547* MCV 87.5 87.4 88.3 BMP: Recent Labs 03/07/17 0740 03/08/17 0706 03/09/17 0730 GLUCOSE 87 85 101* BUN 10 8 9 CREAT 0.66 0.65 0.59 NA 130* 131* 131* K 4.0 3.9 4.7 CL 89* 91* 92* CO2 25 26 24 ANIONGAP 16 14 15 CA 9.2 9.0 9.6 EKG: unchanged from previous tracings CXR: No results found for this or any previous visit. Patient Active Problem List Diagnosis Code ??? Cervical stenosis of spine M48.02 ??? Essential hypertension I10 ??? Depression F32.9 ??? Fall W19.XXXA ??? Cervical myelopathy G95.9 1. Cervical stenosis of spine with myelopathy: s/p C3-4 ACDF, Dr Gutierrez. Recurrent falls and persistent weakness. Comprehensive rehab program. Pain control, wound care, f/u with neurosurgery as arranged. Fall precautions. Ca + D 2. Hypertension: Lisinopril, norvasc. Adjust as required for improved control 3. Hypothyroidism: synthroid 4. Depression/anxiety: Prozac, cymbalta 5. GERD: PPI 6. B12 def: Supplement 7. Constipation: Bowel regimen Thank you for involving me in this patient's care. I will continue to follow along with you. ?? DVT Prophylaxis lovenox ?? GI prophylaxis: proton pump inhibitor ?? Code Status Full Code 35 min were spent in the care of this patient today; this may have included family conferences, nursing conferences and discussion with any consultants CARSON ELIAS MD NCIAL REPORTING MANAGER * Carson Elias MD - 03/09/2017 5:43 AM CST Images from the original note were not included. Internal Medicine Progress Note CARSON ELIAS MD 03/09/2017 Patient Name: Kaitlin Bond Admit Date: 03/03/2017 PCP: Gadiel Zavala MD Consult requested by Yasmin Reese R, Patient Name: Kaitlin Bond PCP: Gadiel Zavala MD Date of admission: 03/03/2017 Date of Service: 03/09/2017 Reason for Consultation: Medical Management Slept some. 2/10 neck pain, continue muscle relaxers and soft C collar for comfort. Less rib pain, continue lidocaine patch. No fever, chills, chest pain, acute sob. No dysphagia. Vitals acceptable. Bowel regimen. Poor po intake. Na 131, remains low. Serum osm 268. Add NaCl tabs, follow BMP. PMHx: Past Medical History: Diagnosis Date ??? [...] C3-4 performed by Mylene Gutierrez MD at [facility] All: Allergies Allergen Reactions ??? Adhesive Rash ??? Adhesive Tape-Silicones Rash Reaction: RASH ??? Gadolinium-Containing Contrast Media Hives ??? Magnevist [Gadopentetate Dimeglumine] Hives Outpt Meds: Cannot display prior to admission medications because the patient has not been admitted in this contact. Inpatient Meds: Current Facility-Administered Medications: ??? [] sodium chloride 0.9% infusion, , IV, Continuous, Carson Elias MD, Last Rate: 100 mL/hr at 03/08/17 0500 ??? sennosides-docusate sodium (SENNA-S) 8.6-50 mg per tablet 1 Tablet, 1 Tablet, Oral, Daily BEDTIME, Yasmin Vieyra R DO, 1 Tablet at 03/08/17 2100 ??? eszopiclone (LUNESTA) tablet 3 mg, 3 mg, Oral, Daily BEDTIME, StrikeYasmin R DO, 3 mg at 03/08/17 2100 ??? sodium chloride tablet 1 Gram, 1 Gram, Oral, TID Meals, Carson Elias MD, 1 Gram at ??? [DISCONTINUED] OTHER, , , Daily BEDTIME, Strike, Yasmin R, DO ??? [DISCONTINUED] tiZANidine (ZANAFLEX) tablet 4 mg, 4 mg, Oral, Daily BEDTIME, Strike, Yasmin R,DO, 4 mg at 03/07/17 2043 ??? magnesium hydroxide (MILK OF MAGNESIA) oral suspension 30 mL, 30 mL, Oral, Daily PRN, Carson Elias MD, 30 mL at 03/07/17 1354 ??? methocarbamol (ROBAXIN) tablet 500 mg, 500 mg, Oral, TID, Strike, Yasmin R, DO, 500 mg at 03/08/17 1705 ??? docusate sodium (COLACE) capsule 100 mg, 100 mg, Oral, BID, Strike, Yasmin R, DO, 100 mg at 03/08/17 2100 ??? acetaminophen (TYLENOL) tablet 650 mg, 650 mg, Oral, q 4 hour PRN, Strike, Yasmin R, DO ??? amLODIPine (NORVASC) tablet 10 mg, 10 mg, Oral, Daily, Strike, Yasmin R, DO, 10 mg at 812 ??? atorvastatin (LIPITOR) tablet 20 mg, 20 mg, Oral, Daily LATE, Strike, Yasmin R, DO, 20 mg at 03/08/17 1705 ??? cyanocobalamin (VITAMIN B-12) tablet 100 mcg, 100 mcg, Oral, Daily, Strike, Yasmin R, DO, 100 mcg at 03/08/17 0808 ??? DULoxetine (CYMBALTA) capsule 60 mg, 60 mg, Oral, Daily BEDTIME, Strike, Yasmin R, DO, 60 mg at 03/08/17 2100 ??? FLUoxetine (PROzac) capsule 40 mg, 40 mg, Oral, Daily BEDTIME, Strike, Yasmin R, DO, 40 mg at 03/08/17 2100 ??? levothyroxine (SYNTHROID) tablet 50 mcg, 50 mcg, Oral, Daily EARLY, Strike, Yasmin R, DO, 50 mcg at 03/08/17 0526 ??? lisinopril (PRINIVIL) tablet 40 mg, 40 mg, Oral, Daily BEDTIME, Strike, Yasmin R, DO, 40 mg at105/08/16 2100 ??? diphenhydrAMINE (BENADRYL) tablet 25 mg, 25 mg, Oral, q 6 hour PRN, Yasmin Vieyra DO ??? oxyCODONE-acetaminophen (PERCOCET) 5-325 mg per tablet 1 Tablet, 1 Tablet, Oral, q 4 hour PRN, Yasmin Vieyra DO, 1 Tablet at 03/05/17 0518 ??? naloxone (NARCAN) 0.4 mg/mL injection 0.1 mg, 0.1 mg, IV, See Admin Notes, Yasmin Vieyra DO ??? ondansetron (ZOFRAN ODT) tablet 4 mg, 4 mg, Oral, q 6 hour PRN, Yasmin Vieyra DO, 4 mg at 03/04/17 0542 ??? bisacodyl (DULCOLAX) rectal suppository 10 mg, 10 mg, Rectal, Daily PRN, Yasmin Vieyra DO,10 mg at 03/07/17 1345 ??? enoxaparin (LOVENOX) injection 40 mg, 40 mg, subCUT, q 24 hour, Yasmin Vieyra DO, 40 mg at105/08/16 2100 ??? pantoprazole (PROTONIX) tablet 40 mg, 40 mg, Oral, Daily, Yasmin Vieyra DO, 40 mg at 03/08/17 0526 ??? calcium-cholecalciferol (OS-IAN 500+D) tablet 1 Tablet, 1 Tablet, Oral, Daily, Yasmin Vieyra DO, 1 Tablet at 03/08/17 0808 SocHx: Social History Substance Use Topics ??? Smoking status: Former Smoker Years: 5.00 Types: Cigarettes Quit date: 1988 ??? Smokeless tobacco: Never Used Comment: 4 per day ??? Alcohol use Yes Comment: 1-2 times per month 1 drink FamHx: No family history on file. Review of Systems History from chart review and the patient General positive for - fatigue ENT negative for nasal congestion, drainage or bleeding, sore throat, dysphagia or ear pain Heme/Lymph negative for swollen glands or abnormal bleeding Endocrine negative for polyuria/polydipsia or new changes in weight CV negative for chest pain or dyspnea on exertion Respiratory negative for cough, shortness of breath, or wheezing GI positive for - change in bowel habits positive for - change in urinary stream MS positive for - gait disturbance, joint pain and muscular weakness Neuro positive for - gait disturbance, impaired coordination/balance and weakness All Other ROS Negative BP (!) 138/90 (BP Location: Left arm, Patient Position (BP): Supine) Pulse 85 Temp 97.5 ??F (36.4 ??C) (Oral) Resp 18 Ht 5' 3 (1.6 m) Wt 59.9 kg (132 lb) SpO2 95% BMI 23.38 kg/m?? General appearance Alert, no distress Head Normocephalic, without obvious abnormality, atraumatic Eyes PERRL, EOM's intact. Throat Oropharynx clear Neck Supple, post op changes healing Lungs Clear to auscultation bilaterally Heart Regular rate and rhythm Abdomen Soft, non-tender. Bowel sounds normal. Extremities No edema Neurologic moves all extremities, RLE weaker than LLE CBC: Recent Labs 03/06/17 0605 03/07/17 0740 03/08/17 0706 WBC 8.4 7.5 7.2 HGB 14.3 14.0 12.4 HCT 42.7 41.2 36.2 PLT 575* 597* 479* MCV 88.4 87.5 87.4 BMP: Recent Labs 03/06/17 0605 03/07/17 0740 03/08/17 0706 GLUCOSE 93 87 85 BUN 10 10 8 CREAT 0.69 0.66 0.65 NA 131* 130* 131* K 3.5 4.0 3.9 CL 89* 89* 91* CO2 26 25 26 ANIONGAP 16 16 14 CA 9.4 9.2 9.0 EKG: unchanged from previous tracings CXR: No results found for this or any previous visit. Patient Active Problem List Diagnosis Code ??? Cervical stenosis of spine M48.02 ??? Essential hypertension I10 ??? Depression F32.9 ??? Fall W19.XXXA ??? Cervical myelopathy G95.9 1. Cervical stenosis of spine with myelopathy: s/p C3-4 ACDF, Dr Gutierrez. Recurrent falls and persistent weakness. Comprehensive rehab program. Pain control, wound care, f/u with neurosurgery as arranged. Fall precautions. Ca + D 2. Hypertension: Lisinopril, norvasc. Adjust as required for improved control 3. Hypothyroidism: synthroid 4. Depression/anxiety: Prozac, cymbalta 5. GERD: PPI 6. B12 def: Supplement 7. Constipation: Bowel regimen Thank you for involving me in this patient's care. I will continue to follow along with you. ?? DVT Prophylaxis lovenox ?? GI prophylaxis: proton pump inhibitor ?? Code Status Full Code 35 min were spent in the care of this patient today; this may have included family conferences, nursing conferences and discussion with any consultants CARSON ELIAS MD NCIAL REPORTING MANAGER * Terryjuan Yasmin Anibal, DO - 03/08/2017 10:39 AM CST Physical Medicine and Rehabilitation Progress Note Admission Date: 03/03/2017 Chief complaint: I slept so well Subjective: Patient seen and examined during morning rounds. In good spirits. Patient states she slept much better with the soft collar but was up around 3:30 in the morning. She notices much improvement in her pain with the addition of the soft collar for comfort. No dizziness. She received IV fluids overnight. She had a bowel movement yesterday with a suppository and states she takes suppositories regularly at home. Her will bring in her home dose of Lunesta. She continues to participate well in therapy. Functional status: Discussed in team conference. See below. ROS: As per HPI and: No fever, chills, chest pain or cough Social History: Lives alone in a single-story home with her spouse. Medications reviewed. Objective: Vitals: BP 123/86 (BP Location: Left arm, Patient Position (BP): Sitting) Pulse 90 Temp 97.9 ??F (36.6 ??C) (Oral) Resp 18 Ht 5' 3 (1.6 m) Wt 59.9 kg (132 lb) SpO2 99% BMI 23.38 kg/m?? General:alert, no distress and Sitting in wheelchair, therapy at side HEENT: anterior neck incision with dermabond, open to air Lungs:clear to auscultation bilaterally, No wheezing/rhonchi CV: Regular rate and rhythm Abd: Soft, non-tender. Bowel sounds active Ext: No leg edema Neuro: speech is fluent and intact Data Review: Lab Results Component Value Date/Time WBC 7.2 03/08/2017 07:06 AM HGB 12.4 03/08/2017 07:06 AM HCT 36.2 03/08/2017 07:06 AM PLT 479 (H) 03/08/2017 07:06 AM MCV 87.4 03/08/2017 07:06 AM Lab Results Component Value Date/Time NA 130 (L) 03/07/2017 07:40 AM K 4.0 03/07/2017 07:40 AM CL 89 (L) 03/07/2017 07:40 AM CO2 25 03/07/2017 07:40 AM CA 9.2 03/07/2017 07:40 AM BUN 10 03/07/2017 07:40 AM CREAT 0.66 03/07/2017 07:40 AM GLUCOSE 87 03/07/2017 07:40 AM TOTALPROTEIN 6.6 (L) 03/04/2017 06:00 AM ALBUMIN 4.0 03/04/2017 06:00 AM BILITOTAL 0.3 03/04/2017 06:00 AM ALKPHOS 87 03/04/2017 06:00 AM AST 28 03/04/2017 06:00 AM ALT 27 03/04/2017 06:00 AM ANIONGAP 16 03/07/2017 07:40 AM ASSESSMENT/PLAN: Melly is a 66-year-old, right-handed female who presents for acute inpatient rehabilitation aftera C3-4 anterior cervical discectomy, C3-4 arthrodesis, C3-4 instrumentation on 02/16/[address] Gutierrez secondary to cervical stenosis with myelopathy and frequent falls Rehab: -Continue PT/OT, recreation therapy, and rehab nursing to maximize functional status. Barriers: personal caregiver, precautions, pain, endurance, balance, strength. Goals: Mod I for ADLs/mobility -Precautions: fall, spinal--no bracing--Trial a soft collar for comfort -Team conference: weekly -Cervical myelopathy status post surgery: Comprehensive rehabilitative program to maximize functional independence. Monitor bowel/bladder as below. Pain control as below. No bracing required as per surgeon -Discussed in team conference with nursing, therapy and acute care clinical nurse specialist. See note for details. Highlights include: independent for feeding; stand by for grooming/upper body dressing, min for other ADLS..min assist for transfers, stand by for bed mobility, min for ambulation with walker, stand by for w heelchair skills. 12 stairs with 2 rails at min assist. Pain: -Neck pain: Patient would like to avoid narcotics if possible. ContinueRobaxin During the day, zanaflex at night until family brings in home dose of Lunesta. Then will stop zanaflex -Spasms: Discontinuee Valium as per patient request. Muscle relaxers as above -Left rib pain from fall: Improving, continue Lidoderm patch, encourage incentive spirometry -Neuropathic pain: Continue Cymbalta, continue B12 Bowel: -Continent, monitor stooling and adjust oral agents as needed--senna S at bedtime Bladder: -Continent, UA negative Prophylaxis: DVT prophylaxis: Lovenox Bone healing: Continue calcium with vitamin D GI prophylaxis: Protonix Skin: -turn every 2 hours, encourage pressure reliefs -ok to shower and get incision wet Mental health -Depression: Continue Prozac, Cymbalta. Consulted rehabilitation psychology FEN -Continue regular consistency diet -Replete electrolytes as needed -Labs reviewed. CBC shows a lower hemoglobin but still acceptable, continue to monitor. Platelets are trending to normal. Chemistry panel shows persistent hyponatremia, IV fluids overnight for hyponatremia, continue to monitor. Remainder as per Internal Medicine, Dr. Elias, including: -Hypertension: Continue lisinopril, Norvasc -Hypothyroidism: Continue Synthroid -Hyponatremia, continue to monitor, IV fluids given 03/07. -Hyperlipidemia: Continue Lipitor Disposition: TDD: 03/17 to home with outpatient therapy Follow ups: -Gadiel Zavala MD 1-2 weeks after discharge from rehabilitation -Dr. Guillermo after discharge for rehab needs -Dr. Gutierrez as directed Total time spent: 25 minutes. Greater than 50% was spent counseling/coordinating care including discussion of pain regimen, bowel/bladder management and rehab progress. Yasmin Vieyra DO ATTESTATION STATEMENTS This note was transcribed using [employer] speaking computerized voice recognition without a human transmission line engineer. This report may or may not have been adjusted for typographical, grammaticaland syntax errors. NCIAL REPORTING MANAGER * Carson Elias MD - 03/08/2017 5:45 AM CST Images from the original note were not included. Internal Medicine Progress Note CARSON ELIAS MD 03/08/2017 Patient Name: Kaitlin Bond Admit Date: 03/03/2017 PCP: Gadiel Zavala MD Consult requested by Yasmin Reese, DO Patient Name: Kaitlin Bond PCP: Gadiel Zavala MD Date of admission: 03/03/2017 Date of Service: 03/08/2017 Reason for Consultation: Medical Management Slept better. Less neck pain, continue muscle relaxers and soft C collar for comfort. Less rib pain, using lidocaine patch No fever, chills, chest pain, acute sob. No dysphagia. Vitals acceptable. Bowel regimen. Poor po intake. Na 130, lower. IVF NS and recheck labs. UA contam PMHx: Past Medical History: Diagnosis Date ??? [...] C3-4 performed by Mylene Gutierrez MD at [facility] All: Allergies Allergen Reactions ??? Adhesive Rash ??? Adhesive Tape-Silicones Rash Reaction: RASH ??? Gadolinium-Containing Contrast Media Hives ??? Magnevist [Gadopentetate Dimeglumine] Hives Outpt Meds: Cannot display prior to admission medications because the patient has not been admitted in this contact. Inpatient Meds: Current Facility-Administered Medications: ??? sodium chloride 0.9% infusion, , IV, Continuous, Carson Elias MD ??? [DISCONTINUED] sodium chloride tablet 1 Gram, 1 Gram, Oral, BID Meals, Carson Elias MD ??? tiZANidine (ZANAFLEX) tablet 4 mg, 4 mg, Oral, Daily BEDTIME, Strike, Yasmin R, DO, 4 mg at 03/07/173 ??? [DISCONTINUED] sodium chloride tablet 1 Gram, 1 Gram, Oral, TID Meals, Carson Elias MD, 1 Gram at 03/07/17 1654 ??? magnesium hydroxide (MILK OF MAGNESIA) oral suspension 30 mL, 30 mL, Oral, Daily PRN, Carson Elias MD, 30 mL at 03/07/17 1354 ??? methocarbamol (ROBAXIN) tablet 500 mg, 500 mg, Oral, TID, Strike, Yasmin R, DO, 500 mg at 03/07/17 165 ??? [COMPLETED] Lidocaine (ASPERCREME) 4 % topical patch 1 Patch, 1 Patch, Topical, Daily, Strike, Yasmin R, DO, Stopped at 03/07/172041 ??? docusate sodium (COLACE) capsule 100 mg, 100 mg, Oral, BID, Strike, Yasmin R, DO, 100 mg at 03/07/17 0842 ??? [DISCONTINUED] tiZANidine (ZANAFLEX) tablet 2 mg, 2 mg, Oral, Daily BEDTIME, Strike, Yasmin R,DO, 2 mg at 03/06/170 ??? acetaminophen (TYLENOL) tablet 650 mg, 650 mg, Oral, q 4 hour PRN, Strike, Yasmin R, DO ??? amLODIPine (NORVASC) tablet 10 mg, 10 mg, Oral, Daily, Strike, Yasmin R, DO, 10 mg at ??? atorvastatin (LIPITOR) tablet 20 mg, 20 mg, Oral, Daily LATE, Strike, Yasmin R, DO, 20 mg at 03/07/17 1654 ??? cyanocobalamin (VITAMIN B-12) tablet 100 mcg, 100 mcg, Oral, Daily, Strike, Yasmin R, DO, 100 mcg at 03/07/17 0842 ??? DULoxetine (CYMBALTA) capsule 60 mg, 60 mg, Oral, Daily BEDTIME, Yasmin Vieyra R, DO, 60 mg at 03/07/172042 ??? FLUoxetine (PROzac) capsule 40 mg, 40 mg, Oral, Daily BEDTIME, Strjuan, Yasmin R, DO, 40 mg at 03/07/172044 ??? levothyroxine (SYNTHROID) tablet 50 mcg, 50 mcg, Oral, Daily EARLY, Strjuan, Yasmin R, DO, 50 mcg at 03/07/17 0539 ??? lisinopril (PRINIVIL) tablet 40 mg, 40 mg, Oral, Daily BEDTIME, Yasmin Vieyra R, DO, 40 mg at105/07/162041 ??? diphenhydrAMINE (BENADRYL) tablet 25 mg, 25 mg, Oral, q 6 hour PRN, Yasmin Vieyra R, DO ??? oxyCODONE-acetaminophen (PERCOCET) 5-325 mg per tablet 1 Tablet, 1 Tablet, Oral, q 4 hour PRN, Yasmin Vieyra R, DO, 1 Tablet at 03/05/17 0518 ??? naloxone (NARCAN) 0.4 mg/mL injection 0.1 mg, 0.1 mg, IV, See Admin Notes, Yasmin Vieyra R, DO ??? ondansetron (ZOFRAN ODT) tablet 4 mg, 4 mg, Oral, q 6 hour PRN, Yasmin Vieyra R, DO, 4 mg at 03/04/17 0542 ??? bisacodyl (DULCOLAX) rectal suppository 10 mg, 10 mg, Rectal, Daily PRN, Yasmin Vieyra R, DO,10 mg at 03/07/17 1345 ??? enoxaparin (LOVENOX) injection 40 mg, 40 mg, subCUT, q 24 hour, Tari Vieyraissa R, DO, 40 mg at105/07/162050 ??? pantoprazole (PROTONIX) tablet 40 mg, 40 mg, Oral, Daily, StrYasmin martinez R, DO, 40 mg at 03/07/17 0539 ??? calcium-cholecalciferol (OS-IAN 500+D) tablet 1 Tablet, 1 Tablet, Oral, Daily, StrikeYasmin R, DO, 1 Tablet at 03/07/17 0842 SocHx: Social History Substance Use Topics ??? Smoking status: Former Smoker Years: 5.00 Types: Cigarettes Quit date: 1988 ??? Smokeless tobacco: Never Used Comment: 4 per day ??? Alcohol use Yes Comment: 1-2 times per month 1 drink FamHx: No family history on file. Review of Systems History from chart review and the patient General positive for - fatigue ENT negative for nasal congestion, drainage or bleeding, sore throat, dysphagia or ear pain Heme/Lymph negative for swollen glands or abnormal bleeding Endocrine negative for polyuria/polydipsia or new changes in weight CV negative for chest pain or dyspnea on exertion Respiratory negative for cough, shortness of breath, or wheezing GI positive for - change in bowel habits positive for - change in urinary stream MS positive for - gait disturbance, joint pain and muscular weakness Neuro positive for - gait disturbance, impaired coordination/balance and weakness All Other ROS Negative BP 108/73 (BP Location: Left arm, Patient Position (BP): Supine) Pulse 84 Temp 97.9 ??F (36.6 ??C) (Oral) Resp 18 Ht 5' 3 (1.6 m) Wt 59.9 kg (132 lb) SpO2 99% BMI 23.38 kg/m?? General appearance Alert, no distress Head Normocephalic, without obvious abnormality, atraumatic Eyes PERRL, EOM's intact. Throat Oropharynx clear Neck Supple, post op changes healing Lungs Clear to auscultation bilaterally Heart Regular rate and rhythm Abdomen Soft, non-tender. Bowel sounds normal. Extremities No edema Neurologic moves all extremities, RLE weaker than LLE CBC: Recent Labs 03/06/17 0605 03/07/17 0740 WBC 8.4 7.5 HGB 14.3 14.0 HCT 42.7 41.2 PLT 575* 597* MCV 88.4 87.5 BMP: Recent Labs 03/06/17 0605 03/07/17 0740 GLUCOSE 93 87 BUN 10 10 CREAT 0.69 0.66 NA 131* 130* K 3.5 4.0 CL 89* 89* CO2 26 25 ANIONGAP 16 16 CA 9.4 9.2 EKG: unchanged from previous tracings CXR: No results found for this or any previous visit. Patient Active Problem List Diagnosis Code ??? Cervical stenosis of spine M48.02 ??? Essential hypertension I10 ??? Depression F32.9 ??? Fall W19.XXXA ??? Cervical myelopathy G95.9 1. Cervical stenosis of spine with myelopathy: s/p C3-4 ACDF, Dr Gutierrez. Recurrent falls and persistent weakness. Comprehensive rehab program. Pain control, wound care, f/u with neurosurgery as arranged. Fall precautions. Ca + D 2. Hypertension: Lisinopril, norvasc. Adjust as required for improved control 3. Hypothyroidism: synthroid 4. Depression/anxiety: Prozac, cymbalta 5. GERD: PPI 6. B12 def: Supplement 7. Constipation: Bowel regimen Thank you for involving me in this patient's care. I will continue to follow along with you. ?? DVT Prophylaxis lovenox ?? GI prophylaxis: proton pump inhibitor ?? Code Status Full Code 35 min were spent in the care of this patient today; this may have included family conferences, nursing conferences and discussion with any consultants CARSON ELIAS MD NCIAL REPORTING MANAGER * Stephanie Mcintosh RN - 03/08/2017 3:57 AM CST Patient slept the majority of the night. Denies complaint of pain or discomfort. Appears without acute distress. Patient had no falls this shift and is fall risk level/color red Interventions in Place: [x] Fall Risk Armband on Patient [x] Call Light within Reach [x] Bed Alarm [x] Chair Alarm [] Sitter [x] Fall Risk Magnet on Door [x] Fall Risk Magnet on Schedule Board [] Wrist Coil Handoff in Place [] Low Bed and Mats in Place [] Room Close to Nurses Station [] Other: NCIAL REPORTING MANAGER * Yasmin Vieyra DO - 03/07/2017 10:59 AM CST Physical Medicine and Rehabilitation Progress Note Admission Date: 03/03/2017 Chief complaint: Neck pain Subjective: Patient seen and examined during morning rounds. Patient has persistent neck pain. It is worse withmovement. I rest is a 2/10 both slight movement increases. A soft collar has been ordered for comfort. She has not had a bowel movement but feels like she has to have one today. She is declining any other bowel medication. No nausea or vomiting but she does have decreased oral intake and is agreeable to speak with dietary. No problems with her bladder. She is participating in therapy. Rib pain ismuch improved with a Lidoderm patch Functional status:Mod-max assistance for transfers ROS: As per HPI and: No fever, chills, Cough or headache Social History: Lives alone in a single-story home with her spouse. Medications reviewed. Objective: Vitals: BP 113/77 Pulse 82 Temp 97.9 ??F (36.6 ??C) (Oral) Resp 18 Ht 5' 3 (1.6 m) Wt 59.9 kg (132 lb) SpO2 100% BMI 23.38 kg/m?? General:alert, no distress and Sitting in wheelchair HEENT: anterior neck incision with dermabond, open to air Lungs:clear to auscultation bilaterally, Normal respirations CV: Regular rate and rhythm Abd: Soft, non-tender. Bowel sounds appreciated, no distention Ext: No leg edema Neuro: speech is fluent and intact Data Review: Lab Results Component Value Date/Time WBC 7.5 03/07/2017 07:40 AM HGB 14.0 03/07/2017 07:40 AM HCT 41.2 03/07/2017 07:40 AM PLT 597 (H) 03/07/2017 07:40 AM MCV 87.5 03/07/2017 07:40 AM Lab Results Component Value Date/Time NA 130 (L) 03/07/2017 07:40 AM K 4.0 03/07/2017 07:40 AM CL 89 (L) 03/07/2017 07:40 AM CO2 25 03/07/2017 07:40 AM CA 9.2 03/07/2017 07:40 AM BUN 10 03/07/2017 07:40 AM CREAT 0.66 03/07/2017 07:40 AM GLUCOSE 87 03/07/2017 07:40 AM TOTALPROTEIN 6.6 (L) 03/04/2017 06:00 AM ALBUMIN 4.0 03/04/2017 06:00 AM BILITOTAL 0.3 03/04/2017 06:00 AM ALKPHOS 87 03/04/2017 06:00 AM AST 28 03/04/2017 06:00 AM ALT 27 03/04/2017 06:00 AM ANIONGAP 16 03/07/2017 07:40 AM ASSESSMENT/PLAN: Melly is a 66-year-old, right-handed female who presents for acute inpatient rehabilitation aftera C3-4 anterior cervical discectomy, C3-4 arthrodesis, C3-4 instrumentation on 02/16/[address] Gutierrez secondary to cervical stenosis with myelopathy and frequent falls Rehab: -Continue PT/OT, recreation therapy, and rehab nursing to maximize functional status. -Precautions: fall, spinal--no bracing--Trial a soft collar for comfort -Team conference: weekly -Cervical myelopathy status post surgery: Comprehensive rehabilitative program to maximize functional independence. Monitor bowel/bladder as below. Pain control as below. No bracing required as per surgeon Pain: -Neck pain: Patient would like to avoid narcotics if possible. ContinueRobaxin During the day, increase Zanaflex to 4 mg at bedtime -Spasms: Discontinuee Valium as per patient request. Muscle relaxers as above -Left rib pain from fall: Improving, continue Lidoderm patch, encourage incentive spirometry -Neuropathic pain: Continue Cymbalta, continue B12 Bowel: -Continent, monitor stooling and adjust oral agents as needed--Patient is declining any further bowel medication, she does have active bowel sounds. Monitor closely, consult to dietary for decreased oral intake Bladder: -Continent, UA negative Prophylaxis: DVT prophylaxis: Lovenox Bone healing: Continue calcium with vitamin D GI prophylaxis: Protonix Skin: -turn every 2 hours, encourage pressure reliefs -ok to shower and get incision wet Mental health -Depression: Continue Prozac, Cymbalta. Consult rehabilitation psychology FEN -Continue regular consistency diet -Replete electrolytes as needed -Labs reviewed.CBC is stable, sodium is decreasing, workup underway, recheck tomorrow. Patient may need salt tablets and fluid restriction. Will discuss with internal medicine Remainder as per Internal Medicine, Dr. Elias, including: -Hypertension: Continue lisinopril, Norvasc -Hypothyroidism: Continue Synthroid -Hyponatremia, continue to monitor, fluid restricted as needed -Hyperlipidemia: Continue Lipitor Disposition: Home with family -Estimated length of stay: 2 weeks Follow ups: -Gadiel Zavala MD 1-2 weeks after discharge from rehabilitation -Dr. Guillermo after discharge for rehab needs -Dr. Gutierrez as directed Total time spent: 25 minutes. Greater than 50% was spent counseling/coordinating care including discussion of pain regimen, bowel/bladder management and rehab progress. Yasmin Vieyra DO ATTESTATION STATEMENTS This note was transcribed using [employer] speaking computerized voice recognition without a human transmission line engineer. This report may or may not have been adjusted for typographical, grammaticaland syntax errors. NCIAL REPORTING MANAGER * Carson Elias MD - 03/07/2017 5:41 AM CST Images from the original note were not included. Internal Medicine Progress Note CARSON ELIAS MD 03/07/2017 Patient Name: Kaitlin Bond Admit Date: 03/03/2017 PCP: Gadiel Zavala MD Consult requested by Yasmin Reese DO Patient Name: Kaitlin Bond PCP: Gadiel Zavala MD Date of admission: 03/03/2017 Date of Service: 03/07/2017 Reason for Consultation: Medical Management Slept some. 5/10 neck pain, continue muscle relaxers. Requesting soft C collar for comfort. Less rib pain, using lidocaine patch No fever, chills, chest pain, acute sob. No dysphagia. Vitals acceptable. Bowel regimen. Poor po intake. Na 131, lower, continue to trend. PMHx: Past Medical History: Diagnosis Date ??? [...] TUBAL LIGATION ??? KYPHOPLASTY, LUMBAR 2017 ??? [place] CERV SPINE FUSN,ANTER,BELOW C2 N/A 02/16/2017 CERVICAL DISCECTOMY FUSION 1 LEVEL ANTERIOR, C3-4 performed by Mylene Gutierrez MD at [facility] All: Allergies Allergen Reactions ??? Adhesive Rash ??? Adhesive Tape-Silicones Rash Reaction: RASH ??? Gadolinium-Containing Contrast Media Hives ??? Magnevist [Gadopentetate Dimeglumine] Hives Outpt Meds: Cannot display prior to admission medications because the patient has not been admitted in this contact. Inpatient Meds: Current Facility-Administered Medications: ??? magnesium hydroxide (MILK OF MAGNESIA) oral suspension 30 mL, 30 mL, Oral, Daily PRN, Carson Elias MD ??? methocarbamol (ROBAXIN) tablet 500 mg, 500 mg, Oral, TID, Strike, Yasmin R, DO, 500 mg at 03/06/171704 ??? tiZANidine (ZANAFLEX) tablet 2 mg, 2 mg, Oral, Daily BEDTIME, Strike, Yasmin R, DO, 2 mg at 03/06/172139 ??? Lidocaine (ASPERCREME) 4 % topical patch 1 Patch, 1 Patch, Topical, Daily, Strike, Yasmin R, DO, Stopped at 03/06/172054 ??? docusate sodium (COLACE) capsule 100 mg, 100 mg, Oral, BID, Strike, Yasmin R, DO, 100 mg at 03/06/172140 ??? acetaminophen (TYLENOL) tablet 650 mg, 650 mg, Oral, q 4 hour PRN, Strike, Yasmin R, DO ??? amLODIPine (NORVASC) tablet 10 mg, 10 mg, Oral, Daily, Strike, Yasmin R, DO, 10 mg at ??? atorvastatin (LIPITOR) tablet 20 mg, 20 mg, Oral, Daily LATE, Strike, Yasmin R, DO, 20 mg at 03/06/171704 ??? cyanocobalamin (VITAMIN B-12) tablet 100 mcg, 100 mcg, Oral, Daily, Strike, Yasmin R, DO, 100 mcg at 03/06/17 0855 ??? DULoxetine (CYMBALTA) capsule 60 mg, 60 mg, Oral, Daily BEDTIME, Strike, Yasmin R, DO, 60 mg at 03/06/172138 ??? FLUoxetine (PROzac) capsule 40 mg, 40 mg, Oral, Daily BEDTIME, Strike, Yasmin R, DO, 40 mg at 03/06/172139 ??? levothyroxine (SYNTHROID) tablet 50 mcg, 50 mcg, Oral, Daily EARLY, Strike, Yasmin R, DO, 50 mcg at 03/06/17614 ??? lisinopril (PRINIVIL) tablet 40 mg, 40 mg, Oral, Daily BEDTIME, Strike, Yasmin R, DO, 40 mg at105/06/162139 ??? diphenhydrAMINE (BENADRYL) tablet 25 mg, 25 mg, Oral, q 6 hour PRN, Strike, Yasmin R, DO ??? oxyCODONE-acetaminophen (PERCOCET) 5-325 mg per tablet 1 Tablet, 1 Tablet, Oral, q 4 hour PRN, Strike, Yasmin R, DO, 1 Tablet at 03/05/17 0518 ??? naloxone (NARCAN) 0.4 mg/mL injection 0.1 mg, 0.1 mg, IV, See Admin Notes, Strike, Yasmin R, DO ??? ondansetron (ZOFRAN ODT) tablet 4 mg, 4 mg, Oral, q 6 hour PRN, Strike, Yasmin R, DO, 4 mg at 03/04/17 0542 ??? bisacodyl (DULCOLAX) rectal suppository 10 mg, 10 mg, Rectal, Daily PRN, Strike, Yasmin R, DO ??? enoxaparin (LOVENOX) injection 40 mg, 40 mg, subCUT, q 24 hour, Strike, Yasmin R, DO, 40 mg at105/06/16 2030 ??? pantoprazole (PROTONIX) tablet 40 mg, 40 mg, Oral, Daily, Strike, Yasmin R, DO, 40 mg at 03/06/1715 ??? calcium-cholecalciferol (OS-IAN 500+D) tablet 1 Tablet, 1 Tablet, Oral, Daily, Strike, Yasmin R DO, 1 Tablet at 03/06/17 0855 SocHx: Social History Substance Use Topics ??? Smoking status: Former Smoker Years: 5.00 Types: Cigarettes Quit date: 1988 ??? Smokeless tobacco: Never Used Comment: 4 per day ??? Alcohol use Yes Comment: 1-2 times per month 1 drink FamHx: No family history on file. Review of Systems History from chart review and the patient General positive for - fatigue ENT negative for nasal congestion, drainage or bleeding, sore throat, dysphagia or ear pain Heme/Lymph negative for swollen glands or abnormal bleeding Endocrine negative for polyuria/polydipsia or new changes in weight CV negative for chest pain or dyspnea on exertion Respiratory negative for cough, shortness of breath, or wheezing GI positive for - change in bowel habits positive for - change in urinary stream MS positive for - gait disturbance, joint pain and muscular weakness Neuro positive for - gait disturbance, impaired coordination/balance and weakness All Other ROS Negative BP 109/74 Pulse 89 Temp 97.5 ??F (36.4 ??C) (Oral) Resp 18 Ht 5' 3 (1.6 m) Wt 59.9 kg (132 lb) SpO2 95% BMI 23.38 kg/m?? General appearance Alert, no distress Head Normocephalic, without obvious abnormality, atraumatic Eyes PERRL, EOM's intact. Throat Oropharynx clear Neck Supple, post op changes healing Lungs Clear to auscultation bilaterally Heart Regular rate and rhythm Abdomen Soft, non-tender. Bowel sounds normal. Extremities No edema Neurologic moves all extremities, RLE weaker than LLE CBC: Recent Labs 03/04/17 0600 03/06/17 0605 WBC 8.5 8.4 HGB 13.3 14.3 HCT 40.0 42.7 PLT 488* 575* MCV 88.9 88.4 BMP: Recent Labs 03/04/17 0600 03/06/17 0605 GLUCOSE 79 93 BUN 8 10 CREAT 0.63 0.69 NA 132* 131* K 3.6 3.5 CL 91* 89* CO2 27 26 ANIONGAP 14 16 CA 9.2 9.4 EKG: unchanged from previous tracings CXR: No results found for this or any previous visit. Patient Active Problem List Diagnosis Code ??? Cervical stenosis of spine M48.02 ??? Essential hypertension I10 ??? Depression F32.9 ??? Fall W19.XXXA ??? Cervical myelopathy G95.9 1. Cervical stenosis of spine with myelopathy: s/p C3-4 ACDF, Dr Gutierrez. Recurrent falls and persistent weakness. Comprehensive rehab program. Pain control, wound care, f/u with neurosurgery as arranged. Fall precautions. Ca + D 2. Hypertension: Lisinopril, norvasc. Adjust as required for improved control 3. Hypothyroidism: synthroid 4. Depression/anxiety: Prozac, cymbalta 5. GERD: PPI 6. B12 def: Supplement 7. Constipation: Bowel regimen Thank you for involving me in this patient's care. I will continue to follow along with you. ?? DVT Prophylaxis lovenox ?? GI prophylaxis: proton pump inhibitor ?? Code Status Full Code 35 min were spent in the care of this patient today; this may have included family conferences, nursing conferences and discussion with any consultants CARSON ELIAS MD NCIAL REPORTING MANAGER * Vonda Alegre RN - 03/07/2017 3:55 AM CST Patient Education on Medications Education provided Re: Kaitlin Bond This education was provided to the none Name of medication: none given The education included the following: none Vonda Alegre RN Patient had no falls this shift and is fall risk level/color yellow Interventions in Place: [x] Fall Risk Armband on Patient [x] Call Light within Reach [x] Bed Alarm [] Chair Alarm [] Sitter [x] Fall Risk Magnet on Door [x] Fall Risk Magnet on Schedule Board [] Wrist Coil Handoff in Place [] Low Bed and Mats in Place [] Room Close to Nurses Station [] Other: NCIAL REPORTING MANAGER * Silvestre oJhnston LPN - 03/06/2017 11:52 PM CST Patient Education on Medications Education provided Re: Kaitlinphilly Bond This education was provided to the patient Name of medication: PM MedicationsThe education included the following: Administering their medication, Storage of their medication, Understanding the side effects of their medication SILVESTRE JOHNSTON LPN Patient had no falls this shift and is fall risk level/color Red Interventions in Place: [x] Fall Risk Armband on Patient [x] Call Light within Reach [x] Bed Alarm [] Chair Alarm [] Sitter [x] Fall Risk Magnet on Door [x] Fall Risk Magnet on Schedule Board [] Wrist Coil Handoff in Place [] Low Bed and Mats in Place [] Room Close to Nurses Station [] Other: NCIAL REPORTING MANAGER * Yasmin Vieyra DO - 03/06/2017 10:41 AM CST Physical Medicine and Rehabilitation Progress Note Admission Date: 03/03/2017 Chief complaint: Neck pain Subjective: Patient seen and examined during morning rounds. Complains of persistent neck pain is worse with movement. She states at rest it is a 3/10 in severity but with certain movements it can get as high asan 8/10. She does notice improvement with the Robaxin would like to continue this intervention. Shestates that her sleep is still impaired as it is difficult to maintain her neck in a neutral position overnight. She is agreeable to try a soft collar. She has not had a bowel movement but took milk of magnesia this morning. She denies any nausea or vomiting. She would like to continue with the lidocaine patch for the rib pain. No other issues Functional status:Mod-max assistance for transfers ROS: As per HPI and: No fever, chills, Nausea or vomiting Social History: Lives alone in a single-story home with her spouse. Medications reviewed. Objective: Vitals: BP 114/77 (BP Location: Left arm, Patient Position (BP): Supine) Pulse 96 Temp 97.5 ??F(36.4 ??C) (Oral) Resp 18 Ht 5' 3 (1.6 m) Wt 59.9 kg (132 lb) SpO2 100% BMI 23.38 kg/m?? General:alert, no distress and lying in bed HEENT: anterior neck incision with dermabond, open to air Lungs:clear to auscultation bilaterally,No wheezing/rhonchi CV: Regular rate and rhythm Abd: Soft, non-tender. Bowel sounds active Ext: No leg edema Neuro: speech is fluent and intact Data Review: Lab Results Component Value Date/Time WBC 8.4 03/06/2017 06:05 AM HGB 14.3 03/06/2017 06:05 AM HCT 42.7 03/06/2017 06:05 AM PLT 575 (H) 03/06/2017 06:05 AM MCV 88.4 03/06/2017 06:05 AM Lab Results Component Value Date/Time NA 131 (L) 03/06/2017 06:05 AM K 3.5 03/06/2017 06:05 AM CL 89 (L) 03/06/2017 06:05 AM CO2 26 03/06/2017 06:05 AM CA 9.4 03/06/2017 06:05 AM BUN 10 03/06/2017 06:05 AM CREAT 0.69 03/06/2017 06:05 AM GLUCOSE 93 03/06/2017 06:05 AM TOTALPROTEIN 6.6 (L) 03/04/2017 06:00 AM ALBUMIN 4.0 03/04/2017 06:00 AM BILITOTAL 0.3 03/04/2017 06:00 AM ALKPHOS 87 03/04/2017 06:00 AM AST 28 03/04/2017 06:00 AM ALT 27 03/04/2017 06:00 AM ANIONGAP 16 03/06/2017 06:05 AM ASSESSMENT/PLAN: Melly is a 66-year-old, right-handed female who presents for acute inpatient rehabilitation aftera C3-4 anterior cervical discectomy, C3-4 arthrodesis, C3-4 instrumentation on 02/16/[address] Gutierrez secondary to cervical stenosis with myelopathy and frequent falls Rehab: -Continue PT/OT, recreation therapy, and rehab nursing to maximize functional status. -Precautions: fall, spinal--no bracing--Trial a soft collar for comfort -Team conference: weekly -Cervical myelopathy status post surgery: Comprehensive rehabilitative program to maximize functional independence. Monitor bowel/bladder as below. Pain control as below. No bracing required as per surgeon Pain: -Neck pain: Patient would like to avoid narcotics if possible. ContinueRobaxin 3 times during the day and Zanaflex at bedtime to help with sleep -Spasms: Discontinuee Valium as per patient request. Muscle relaxers as above -Left rib pain from fall: Improving, continue Lidoderm patch, encourage incentive spirometry -Neuropathic pain: Continue Cymbalta, continue B12 Bowel: -Continent, monitor stooling and adjust oral agents as needed--Scheduled Colace given recent constipation, patient took MOM today, suppository tonight if no BM today Bladder: -Continent, UA negative Prophylaxis: DVT prophylaxis: Lovenox Bone healing: Continue calcium with vitamin D GI prophylaxis: Protonix Skin: -turn every 2 hours, encourage pressure reliefs -ok to shower and get incision wet Mental health -Depression: Continue Prozac, Cymbalta. Consult rehabilitation psychology FEN -Continue regular consistency diet -Replete electrolytes as needed -Labs reviewed and show stable CBC. Should panel shows persistent hyponatremia, no dizziness. Continue to monitor, fluid restriction of sodium decreases. Repeat tomorrow Remainder as per Internal Medicine, Dr. Elias, including: -Hypertension: Continue lisinopril, Norvasc -Hypothyroidism: Continue Synthroid -Hyponatremia, continue to monitor, fluid restricted as needed -Hyperlipidemia: Continue Lipitor Disposition: Home with family -Estimated length of stay: 2 weeks Follow ups: -Gadiel Zavala MD 1-2 weeks after discharge from rehabilitation -Dr. Guillermo after discharge for rehab needs -Dr. Gutierrez as directed Total time spent: 25 minutes. Greater than 50% was spent counseling/coordinating care including discussion of pain regimen, bowel/bladder management and rehab progress. Yasmin Vieyra DO ATTESTATION STATEMENTS This note was transcribed using [employer] speaking computerized voice recognition without a human transmission line engineer. This report may or may not have been adjusted for typographical, grammaticaland syntax errors. NCIAL REPORTING MANAGER * Cyndi Damico RN - 03/06/2017 6:11 AM CST Pt is having difficulty sleeping and is requesting soft C-collar for support while in bed. Patient had no falls this shift and is fall risk level/color RED Interventions in Place: [x] Fall Risk Armband on Patient [x] Call Light within Reach [x] Bed Alarm [] Chair Alarm [] Sitter [x] Fall Risk Magnet on Door [x] Fall Risk Magnet on Schedule Board [] Wrist Coil Handoff in Place [] Low Bed and Mats in Place [] Room Close to Nurses Station [] Other: NCIAL REPORTING MANAGER * Carson Elias MD - 03/06/2017 5:23 AM CST Images from the original note were not included. Internal Medicine Progress Note CARSON ELIAS MD 03/06/2017 Patient Name: Kaitlin Bond Admit Date: 03/03/2017 PCP: Gadiel Zavala MD Consult requested by Yasmin Reese DO Patient Name: Kaitlin Bond PCP: Gadiel Zavala MD Date of admission: 03/03/2017 Date of Service: 03/06/2017 Reason for Consultation: Medical Management Slept a little better. 06/10 neck pain, improving with muscle relaxers, she is trying to avoid narcotics if possible. No fever, chills, chest pain, acute sob. No dysphagia. BP higher with pain, otherwise acceptable. Bowel regimen for constipation, start MOM per pt request. Na 132, recheck labs today. PMHx: Past Medical History: Diagnosis Date ??? [...] C3-4 performed by Mylene Gutierrez MD at [facility] All: Allergies Allergen Reactions ??? Adhesive Rash ??? Adhesive Tape-Silicones Rash Reaction: RASH ??? Gadolinium-Containing Contrast Media Hives ??? Magnevist [Gadopentetate Dimeglumine] Hives Outpt Meds: Cannot display prior to admission medications because the patient has not been admitted in this contact. Inpatient Meds: Current Facility-Administered Medications: ??? methocarbamol (ROBAXIN) tablet 500 mg, 500 mg, Oral, TID, Strike, Yasmin R, DO, 500 mg at 03/05/171711 ??? tiZANidine (ZANAFLEX) tablet 2 mg, 2 mg, Oral, Daily BEDTIME, Strike, Yasmin R, DO, 2 mg at 03/05/172199 ??? Lidocaine (ASPERCREME) 4 % topical patch 1 Patch, 1 Patch, Topical, Daily, Strike, Yasmin R, DO, Stopped at 03/05/17 2340 ??? docusate sodium (COLACE) capsule 100 mg, 100 mg, Oral, BID, Strike, Yasmin R, DO, 100 mg at 03/05/172199 ??? [DISCONTINUED] lidocaine 4 % topical patch 1 Patch, 1 Patch, Topical, Daily, Strike, Yasmin R,DO ??? acetaminophen (TYLENOL) tablet 650 mg, 650 mg, Oral, q 4 hour PRN, Strike, Yasmin R, DO ??? amLODIPine (NORVASC) tablet 10 mg, 10 mg, Oral, Daily, Strike, Yasmin R, DO, 10 mg at 815 ??? atorvastatin (LIPITOR) tablet 20 mg, 20 mg, Oral, Daily LATE, Strike, Yasmin R, DO, 20 mg at 03/05/171711 ??? cyanocobalamin (VITAMIN B-12) tablet 100 mcg, 100 mcg, Oral, Daily, Strike, Yasmin R, DO, 100 mcg at 03/05/17 0820 ??? DULoxetine (CYMBALTA) capsule 60 mg, 60 mg, Oral, Daily BEDTIME, Strike, Yasmin R, DO, 60 mg at 03/05/172200 ??? FLUoxetine (PROzac) capsule 40 mg, 40 mg, Oral, Daily BEDTIME, Strike, Yasmin R, DO, 40 mg at 03/05/172199 ??? levothyroxine (SYNTHROID) tablet 50 mcg, 50 mcg, Oral, Daily EARLY, Yasmin Vieyra R, DO, 50 mcg at 03/05/1718 ??? lisinopril (PRINIVIL) tablet 40 mg, 40 mg, Oral, Daily BEDTIME, Strjuan, Yasmin R, DO, 40 mg at105/05/162199 ??? diphenhydrAMINE (BENADRYL) tablet 25 mg, 25 mg, Oral, q 6 hour PRN, Yasmin Vieyra R, DO ??? oxyCODONE-acetaminophen (PERCOCET) 5-325 mg per tablet 1 Tablet, 1 Tablet, Oral, q 4 hour PRN, Yasmin Vieyra R, DO, 1 Tablet at 03/05/17517 ??? naloxone (NARCAN) 0.4 mg/mL injection 0.1 mg, 0.1 mg, IV, See Admin Notes, Yasmin Vieyra R, DO ??? ondansetron (ZOFRAN ODT) tablet 4 mg, 4 mg, Oral, q 6 hour PRN, Tari Vieyraissa R, DO, 4 mg at 03/04/17 0542 ??? bisacodyl (DULCOLAX) rectal suppository 10 mg, 10 mg, Rectal, Daily PRN, Tari Vieyraissa R, DO ??? enoxaparin (LOVENOX) injection 40 mg, 40 mg, subCUT, q 24 hour, Yasmin Vieyra R, DO, 40 mg at105/05/162214 ??? pantoprazole (PROTONIX) tablet 40 mg, 40 mg, Oral, Daily, Yasmin Vieyra R, DO, 40 mg at 03/05/1718 ??? calcium-cholecalciferol (OS-IAN 500+D) tablet 1 Tablet, 1 Tablet, Oral, Daily, Yasmin Vieyra R, DO, 1 Tablet at 03/05/17 0815 ??? [DISCONTINUED] diazePAM (VALIUM) tablet 5 mg, 5 mg, Oral, q 8 hour PRN, Azalia, Yasmin R, DO, 5 mg at 03/05/17 0520 ??? [DISCONTINUED] docusate sodium (COLACE) capsule 100 mg, 100 mg, Oral, BID PRN, Yasmin Vieyra R, DO ??? [DISCONTINUED] zolpidem (AMBIEN) tablet 5 mg, 5 mg, Oral, HS PRN, Yasmin Vieyra R, DO SocHx: Social History Substance Use Topics ??? Smoking status: Former Smoker Years: 5.00 Types: Cigarettes Quit date: 1988 ??? Smokeless tobacco: Never Used Comment: 4 per day ??? Alcohol use Yes Comment: 1-2 times per month 1 drink FamHx: No family history on file. Review of Systems History from chart review and the patient General positive for - fatigue ENT negative for nasal congestion, drainage or bleeding, sore throat, dysphagia or ear pain Heme/Lymph negative for swollen glands or abnormal bleeding Endocrine negative for polyuria/polydipsia or new changes in weight CV negative for chest pain or dyspnea on exertion Respiratory negative for cough, shortness of breath, or wheezing GI positive for - change in bowel habits positive for - change in urinary stream MS positive for - gait disturbance, joint pain and muscular weakness Neuro positive for - gait disturbance, impaired coordination/balance and weakness All Other ROS Negative BP 136/87 (BP Location: Left arm, Patient Position (BP): Supine) Pulse 84 Temp 97.6 ??F (36.4 ??C) (Oral) Resp 16 Ht 5' 3 (1.6 m) Wt 59.9 kg (132 lb) SpO2 97% BMI 23.38 kg/m?? General appearance Alert, no distress Head Normocephalic, without obvious abnormality, atraumatic Eyes PERRL, EOM's intact. Throat Oropharynx clear Neck Supple, post op changes healing Lungs Clear to auscultation bilaterally Heart Regular rate and rhythm Abdomen Soft, non-tender. Bowel sounds normal. Extremities No edema Neurologic moves all extremities, RLE weaker than LLE CBC: Recent Labs 03/04/17 0600 WBC 8.5 HGB 13.3 HCT 40.0 PLT 488* MCV 88.9 BMP: Recent Labs 03/04/17 0600 GLUCOSE 79 BUN 8 CREAT 0.63 NA 132* K 3.6 CL 91* CO2 27 ANIONGAP 14 CA 9.2 EKG: unchanged from previous tracings CXR: No results found for this or any previous visit. Patient Active Problem List Diagnosis Code ??? Cervical stenosis of spine M48.02 ??? Essential hypertension I10 ??? Depression F32.9 ??? Fall W19.XXXA ??? Cervical myelopathy G95.9 1. Cervical stenosis of spine with myelopathy: s/p C3-4 ACDF, Dr Gutierrez. Recurrent falls and persistent weakness. Comprehensive rehab program. Pain control, wound care, f/u with neurosurgery as arranged. Fall precautions. Ca + D 2. Hypertension: Lisinopril, norvasc. Adjust as required for improved control 3. Hypothyroidism: synthroid 4. Depression/anxiety: Prozac, cymbalta 5. GERD: PPI 6. B12 def: Supplement 7. Constipation: Bowel regimen Thank you for involving me in this patient's care. I will continue to follow along with you. ?? DVT Prophylaxis lovenox ?? GI prophylaxis: proton pump inhibitor ?? Code Status Full Code 35 min were spent in the care of this patient today; this may have included family conferences, nursing conferences and discussion with any consultants CARSON ELIAS MD NCIAL REPORTING MANAGER * Azalia Yasmin DO Anibal - 03/05/2017 1:12 PM CST Physical Medicine and Rehabilitation Progress Note Admission Date: 03/03/2017 Chief complaint: Neck and back pain Subjective: Patient seen and examined during morning rounds. Complains of achy back pain but her biggest complaint is neck stiffness and tenderness around the surgery site. She also has associated weakness in her arms that is stable. She has not had a bowel movement in 2 days and states at home she goes every third day. No problems with her bladder. Her sleep is impaired due to pain. She would like to avoid narcotics if possible. She states she also has pain in her ribs from a fall Functional status:Mod-max assistance for transfers ROS: As per HPI and: No fever, chills, chest pain, Or headache Social History: Lives alone in a single-story home with her spouse. Medications reviewed. Objective: Vitals: BP (!) 117/90 (BP Location: Left arm, Patient Position (BP): Supine) Pulse 93 Temp 97.7??F (36.5 ??C) (Oral) Resp 18 Ht 5' 3 (1.6 m) Wt 61 kg (134 lb 8 oz) SpO2 99% BMI 23.83 kg/m?? General:alert, no distress and lying in bed HEENT: anterior neck incision with dermabond, open to air Lungs:clear to auscultation bilaterally, normal respiratory effort CV: Regular rate and rhythm Abd: Soft, non-tender. Bowel sounds active Ext: No leg edema Neuro: speech is fluent and intact Data Review: Lab Results Component Value Date/Time WBC 8.5 03/04/2017 06:00 AM HGB 13.3 03/04/2017 06:00 AM HCT 40.0 03/04/2017 06:00 AM PLT 488 (H) 03/04/2017 06:00 AM MCV 88.9 03/04/2017 06:00 AM Lab Results Component Value Date/Time NA 132 (L) 03/04/2017 06:00 AM K 3.6 03/04/2017 06:00 AM CL 91 (L) 03/04/2017 06:00 AM CO2 27 03/04/2017 06:00 AM CA 9.2 03/04/2017 06:00 AM BUN 8 03/04/2017 06:00 AM CREAT 0.63 03/04/2017 06:00 AM GLUCOSE 79 03/04/2017 06:00 AM TOTALPROTEIN 6.6 (L) 03/04/2017 06:00 AM ALBUMIN 4.0 03/04/2017 06:00 AM BILITOTAL 0.3 03/04/2017 06:00 AM ALKPHOS 87 03/04/2017 06:00 AM AST 28 03/04/2017 06:00 AM ALT 27 03/04/2017 06:00 AM ANIONGAP 14 03/04/2017 06:00 AM ASSESSMENT/PLAN: Melly is a 66-year-old, right-handed female who presents for acute inpatient rehabilitation aftera C3-4 anterior cervical discectomy, C3-4 arthrodesis, C3-4 instrumentation on 02/16/[address] Gutierrez secondary to cervical stenosis with myelopathy and frequent falls Rehab: -Continue PT/OT, recreation therapy, and rehab nursing to maximize functional status. -Precautions: fall, spinal--no bracing -Team conference: weekly -Cervical myelopathy status post surgery: Comprehensive rehabilitative program to maximize functional independence. Monitor bowel/bladder as below. Pain control as below. No bracing required as per surgeon Pain: -Neck pain: Patient would like to avoid narcotics if possible. Schedule Robaxin 3 times during the day and Zanaflex at bedtime to help with sleep -Spasms: Discontinue Valium. Muscle relaxers as above -Left rib pain from fall: Initiate Lidoderm patch, encourage incentive spirometry -Neuropathic pain: Continue Cymbalta, continue B12 Bowel: -Continent, monitor stooling and adjust oral agents as needed--Scheduled Colace given recent constipation Bladder: -Continent, UA negative Prophylaxis: DVT prophylaxis: Lovenox Bone healing: Continue calcium with vitamin D GI prophylaxis: Protonix Skin: -turn every 2 hours, encourage pressure reliefs -ok to shower and get incision wet Mental health -Depression: Continue Prozac, Cymbalta. Consult rehabilitation psychology FEN -Continue regular consistency diet -Replete electrolytes as needed -check labs tomorrow Remainder as per Internal Medicine, Dr. Elias, including: -Hypertension: Continue lisinopril, Norvasc -Hypothyroidism: Continue Synthroid -Hyponatremia, continue to monitor, fluid restricted as needed -Hyperlipidemia: Continue Lipitor Disposition: Home with family -Estimated length of stay: 2 weeks Follow ups: -Gadiel Zavala MD 1-2 weeks after discharge from rehabilitation -Dr. Guillermo after discharge for rehab needs -Dr. Gutierrez as directed Total time spent: 25 minutes. Greater than 50% was spent counseling/coordinating care including discussion of pain regimen, bowel/bladder management and rehab progress. Yasmin Vieyra DO ATTESTATION STATEMENTS This note was transcribed using [employer] speaking computerized voice recognition without a human transmission line engineer. This report may or may not have been adjusted for typographical, grammaticaland syntax errors. NCIAL REPORTING MANAGER * Carson Elias MD - 03/05/2017 5:07 AM CST Images from the original note were not included. Internal Medicine Progress Note CARSON ELIAS MD 03/05/2017 Patient Name: Kaitlin Bond Admit Date: 03/03/2017 PCP: Gadiel Zavala MD Consult requested by Yasmin Reese DO Patient Name: Kaitlin Bond PCP: Gadiel Zavala MD Date of admission: 03/03/2017 Date of Service: 03/05/2017 Reason for Consultation: Medical Management Slept some. 11/07 neck pain. Does not like to take pain meds. Asking for soft C collar for comfort. No fever, chills, chest pain, acute sob. No dysphagia. BP higher with pain, otherwise acceptable. Bowel regimen. Na 132, recheck labs tomorrow. PMHx: Past Medical History: Diagnosis Date ??? [...] C3-4 performed by Mylene Gutierrez MD at [facility] All: Allergies Allergen Reactions ??? Adhesive Rash ??? Adhesive Tape-Silicones Rash Reaction: RASH ??? Gadolinium-Containing Contrast Media Hives ??? Magnevist [Gadopentetate Dimeglumine] Hives Outpt Meds: Cannot display prior to admission medications because the patient has not been admitted in this contact. Inpatient Meds: Current Facility-Administered Medications: ??? acetaminophen (TYLENOL) tablet 650 mg, 650 mg, Oral, q 4 hour PRN, Yasmin Vieyra DO ??? amLODIPine (NORVASC) tablet 10 mg, 10 mg, Oral, Daily, Yasmin Vieyra DO, 10 mg at ??? atorvastatin (LIPITOR) tablet 20 mg, 20 mg, Oral, Daily LATE, Strike, Yasmin R, DO, 20 mg at 03/04/17 1600 ??? cyanocobalamin (VITAMIN B-12) tablet 100 mcg, 100 mcg, Oral, Daily, Strike, Yasmin R, DO, 100 mcg at 03/04/17 0853 ??? diazePAM (VALIUM) tablet 5 mg, 5 mg, Oral, q 8 hour PRN, Strike, Yasmin R, DO, 5 mg at 03/04/172105 ??? DULoxetine (CYMBALTA) capsule 60 mg, 60 mg, Oral, Daily BEDTIME, Strike, Yasmin R, DO, 60 mg at 03/04/172055 ??? FLUoxetine (PROzac) capsule 40 mg, 40 mg, Oral, Daily BEDTIME, Strike, Yasmin R, DO, 40 mg at 03/04/172055 ??? levothyroxine (SYNTHROID) tablet 50 mcg, 50 mcg, Oral, Daily EARLY, Strike, Yasmin R, DO, 50 mcg at 03/04/17 0538 ??? lisinopril (PRINIVIL) tablet 40 mg, 40 mg, Oral, Daily BEDTIME, Strike, Yasmin R, DO, 40 mg at105/04/162056 ??? diphenhydrAMINE (BENADRYL) tablet 25 mg, 25 mg, Oral, q 6 hour PRN, Strike, Yasmin R, DO ??? oxyCODONE-acetaminophen (PERCOCET) 5-325 mg per tablet 1 Tablet, 1 Tablet, Oral, q 4 hour PRN, Strike, Yasmin R, DO ??? naloxone (NARCAN) 0.4 mg/mL injection 0.1 mg, 0.1 mg, IV, See Admin Notes, Strike, Yasmin R, DO ??? ondansetron (ZOFRAN ODT) tablet 4 mg, 4 mg, Oral, q 6 hour PRN, Strike, Yasmin R, DO, 4 mg at 03/04/17 0542 ??? bisacodyl (DULCOLAX) rectal suppository 10 mg, 10 mg, Rectal, Daily PRN, Strike, Yasmin R, DO ??? docusate sodium (COLACE) capsule 100 mg, 100 mg, Oral, BID PRN, Yasmin Vieyra R, DO ??? enoxaparin (LOVENOX) injection 40 mg, 40 mg, subCUT, q 24 hour, Yasmin Vieyra R, DO, 40 mg at105/04/162 ??? zolpidem (AMBIEN) tablet 5 mg, 5 mg, Oral, HS PRN, Yasmin Vieyra R, DO ??? pantoprazole (PROTONIX) tablet 40 mg, 40 mg, Oral, Daily, Yasmin Vieyra R, DO, 40 mg at 03/04/17 0852 ??? calcium-cholecalciferol (OS-IAN 500+D) tablet 1 Tablet, 1 Tablet, Oral, Daily, Yasmin Vieyra R DO, 1 Tablet at 03/04/17851 SocHx: Social History Substance Use Topics ??? Smoking status: Former Smoker Years: 5.00 Types: Cigarettes Quit date: 1988 ??? Smokeless tobacco: Never Used Comment: 4 per day ??? Alcohol use Yes Comment: 1-2 times per month 1 drink FamHx: No family history on file. Review of Systems History from chart review and the patient General positive for - fatigue ENT negative for nasal congestion, drainage or bleeding, sore throat, dysphagia or ear pain Heme/Lymph negative for swollen glands or abnormal bleeding Endocrine negative for polyuria/polydipsia or new changes in weight CV negative for chest pain or dyspnea on exertion Respiratory negative for cough, shortness of breath, or wheezing GI positive for - change in bowel habits positive for - change in urinary stream MS positive for - gait disturbance, joint pain and muscular weakness Neuro positive for - gait disturbance, impaired coordination/balance and weakness All Other ROS Negative BP (!) 125/94 (BP Location: Right arm, Patient Position (BP): Supine) Pulse 98 Temp 97.9 ??F (36.6 ??C) (Oral) Resp 18 Ht 5' 3 (1.6 m) Wt 61 kg (134 lb 8 oz) SpO2 97% BMI 23.83 kg/m?? General appearance Alert, no distress Head Normocephalic, without obvious abnormality, atraumatic Eyes PERRL, EOM's intact. Throat Oropharynx clear Neck Supple, post op changes healing Lungs Clear to auscultation bilaterally Heart Regular rate and rhythm Abdomen Soft, non-tender. Bowel sounds normal. Extremities No edema Neurologic moves all extremities, RLE weaker than LLE CBC: Recent Labs 03/04/17 0600 WBC 8.5 HGB 13.3 HCT 40.0 PLT 488* MCV 88.9 BMP: Recent Labs 03/03/17 0403 03/04/17 0600 GLUCOSE 89 79 BUN 12 8 CREAT 0.67 0.63 NA 137 132* K 4.3 3.6 CL 96* 91* CO2 31* 27 ANIONGAP 10 14 CA 8.9 9.2 EKG: unchanged from previous tracings CXR: No results found for this or any previous visit. Patient Active Problem List Diagnosis Code ??? Cervical stenosis of spine M48.02 ??? Essential hypertension I10 ??? Depression F32.9 ??? Fall W19.XXXA 1. Cervical stenosis of spine with myelopathy: s/p C3-4 ACDF, Dr Gutierrez. Recurrent falls and persistent weakness. Comprehensive rehab program. Pain control, wound care, f/u with neurosurgery as arranged. Fall precautions. Ca + D 2. Hypertension: Lisinopril, norvasc. Adjust as required for improved control 3. Hypothyroidism: synthroid 4. Depression/anxiety: Prozac, cymbalta 5. GERD: PPI 6. B12 def: Supplement 7. Constipation: Bowel regimen Thank you for involving me in this patient's care. I will continue to follow along with you. ?? DVT Prophylaxis lovenox ?? GI prophylaxis: proton pump inhibitor ?? Code Status Full Code 35 min were spent in the care of this patient today; this may have included family conferences, nursing conferences and discussion with any consultants CARSON ELIAS MD NCIAL REPORTING MANAGER * Aide Hill RN - 03/04/2017 11:30 PM CDT Patient had no falls this shift and is fall risk level/color RED Interventions in Place: [x] Fall Risk Armband on Patient [x] Call Light within Reach [] Bed Alarm [] Chair Alarm [] Sitter [x] Fall Risk Magnet on Door [x] Fall Risk Magnet on Schedule Board [] Wrist Coil Handoff in Place [] Low Bed and Mats in Place [] Room Close to Nurses Station [] Other: PT A&OX4. PLEASANT,CONVERSANT. COOPERATIVE WITH CARE. DISCUSSED SAFETY AND FALL PREVENTION PLAN. NO PRESENT C/O PAIN. * Finesse Zheng MD - 03/04/2017 8:15 AM CDT REHAB/PMA&R DAILY PROGRESS NOTE Date: 03/04/2017 Time: 8:15 AM Subjective: Slept. No overnight events. C/o neck tightness. Denies any new FND. Initial therapy evaluation this am. Labs reviewed. Review of System: No fever, nausea/vomiting, chest pain, or shortness of breath. Exam: BP 123/87 (BP Location: Right arm, Patient Position (BP): Supine) Pulse 86 Temp 97.8 ??F (36.6 ??C) (Oral) Resp 18 Ht 5' 3 (1.6 m) Wt 61 kg (134 lb 8 oz) SpO2 98% BMI 23.83 kg/m?? General appearance: alert, in no distress Skin/sores/incisions: No rashes or lesions; Surgical incision healed. Lungs/Chest wall: clear to auscultation bilaterally, normal respiratory effort, no tenderness. CardioVasc: normal rate and regular rhythm, no edema, intact distal pulses Abdomen: Soft, non-tender. Bowel sounds normal. No masses, no organomegaly. Musculoskeletal: no joint tenderness, deformity or swelling. Neurologic: Mental status: Alert, awake, responsive, oriented to time and place and person. Language: Fluent Cranial nerves: intact Muscle strength: Right: 5/5 in UExts proximally and distally; R Lower Extremity: hip flex 3+/5, knee ext/flex 4/5, ankle DF 4/5, hip ext and ankle PF 4+/5 Left: 5/5 in UE/LExts proximally and distally. Muscle Stretch Reflexes: brisk and symmetric. Sensory exam: normal touch and pinprick bilaterally. Psych: affect is blunted. Current Medications: Current Facility-Administered Medications Ordered in Epic Medication Dose Route Frequency Provider Last Rate Last Dose ??? acetaminophen (TYLENOL) tablet 650 mg 650 mg Oral q 4 hour PRN Strike, Yasmin R, DO ??? amLODIPine (NORVASC) tablet 10 mg 10 mg Oral Daily Strike, Yasmin R, DO ??? atorvastatin (LIPITOR) tablet 20 mg 20 mg Oral Daily LATE Strike, Yasmin R, DO 20 mg at 03/03/172158 ??? cyanocobalamin (VITAMIN B-12) tablet 100 mcg 100 mcg Oral Daily Strike, Yasmin R, DO ??? diazePAM (VALIUM) tablet 5 mg 5 mg Oral q 8 hour PRN Strike, Yasmin R, DO 5 mg at 03/03/172203 ??? DULoxetine (CYMBALTA) capsule 60 mg 60 mg Oral Daily BEDTIME Strike, Yasmin R, DO 60 mg at 03/03/172157 ??? FLUoxetine (PROzac) capsule 40 mg 40 mg Oral Daily BEDTIME Strike, Yasmin R, DO 40 mg at 03/03/172157 ??? levothyroxine (SYNTHROID) tablet 50 mcg 50 mcg Oral Daily EARLY Strike, Yasmin R, DO 50 mcg at105/04/16 05 ??? lisinopril (PRINIVIL) tablet 40 mg 40 mg Oral Daily BEDTIME Strike, Yasmin R, DO 40 mg at 03/03/172158 ??? diphenhydrAMINE (BENADRYL) tablet 25 mg 25 mg Oral q 6 hour PRN Strike, Yasmin R, DO ??? oxyCODONE-acetaminophen (PERCOCET) 5-325 mg per tablet 1 Tablet 1 Tablet Oral q 4 hour PRN Strike, Yasmin R, DO ??? naloxone (NARCAN) 0.4 mg/mL injection 0.1 mg 0.1 mg IV See Admin Notes Strike, Yasmin R, DO ??? ondansetron (ZOFRAN ODT) tablet 4 mg 4 mg Oral q 6 hour PRN Strike, Yasmin R, DO 4 mg at 03/04/17 0542 ??? bisacodyl (DULCOLAX) rectal suppository 10 mg 10 mg Rectal Daily PRN Strike, Yasmin R, DO ??? docusate sodium (COLACE) capsule 100 mg 100 mg Oral BID PRN Strike, Yasmin R, DO ??? enoxaparin (LOVENOX) injection 40 mg 40 mg subCUT q 24 hour Yasmin Vieyra R, DO 40 mg at 03/03/17 2321 ??? zolpidem (AMBIEN) tablet 5 mg 5 mg Oral HS PRN Yasmin Vieyra, DO ??? pantoprazole (PROTONIX) tablet 40 mg 40 mg Oral Daily Yasmin Vieyra, DO ??? calcium-cholecalciferol (OS-IAN 500+D) tablet 1 Tablet 1 Tablet Oral Daily Yasmin Vieyra, DO Data: UA result (most recent): No results found for: PHUA, SGUR, URINELEUKOC, NITRITEUA, KETONEURINE, PROTEINUA, GLUUA, BLOODUA, WBCU, WBCURINE, RBCUA, BACTERIAUA, UREPITHELIAL Urine Random Protein result: No results found for: PROTEINUR CBC result (most recent): Lab Results Component Value Date/Time WBC 8.6 02/28/2017 12:31 PM HGB 13.5 02/28/2017 12:31 PM HCT 40.9 02/28/2017 12:31 PM PLT 588 (H) 02/28/2017 12:31 PM MCV 90.7 02/28/2017 12:31 PM BMP result (most recent): Lab Results Component Value Date/Time NA 137 03/03/2017 04:03 AM K 4.3 03/03/2017 04:03 AM CL 96 (L) 03/03/2017 04:03 AM CO2 31 (H) 03/03/2017 04:03 AM CA 8.9 03/03/2017 04:03 AM BUN 12 03/03/2017 04:03 AM CREAT 0.67 03/03/2017 04:03 AM GLUCOSE 89 03/03/2017 04:03 AM ANIONGAP 10 03/03/2017 04:03 AM CMP result (most recent): Lab Results Component Value Date/Time NA 137 03/03/2017 04:03 AM K 4.3 03/03/2017 04:03 AM CL 96 (L) 03/03/2017 04:03 AM CO2 31 (H) 03/03/2017 04:03 AM CA 8.9 03/03/2017 04:03 AM BUN 12 03/03/2017 04:03 AM CREAT 0.67 03/03/2017 04:03 AM GLUCOSE 89 03/03/2017 04:03 AM ANIONGAP 10 03/03/2017 04:03 AM LIPID panel result (most recent): No results found for: CHOLTOT, HDL, LDLCALC, LDLDIRECT, TRIGLYCERIDE GLUCOSE result (most recent): Lab Results Component Value Date/Time GLUCOSE 89 03/03/2017 04:03 AM Coagulation result (most recent): No results found for: PT, INR, APTT Assessment and Plan: 1. Cervical spine stenosis with myelopathy, s/p C3-4 anterior cervical discectomy, C3-4 arthrodesis, C3-4 instrumentation on 02/[address] Gutierrez. Continue inpatient comprehensive interdisciplinary rehabilitation to address strengthening, mobility skills, self care. The patient continues to require the interdisciplinary team approach and 24 hour monitoring. 2. Essential hypertension: cont lisinopril, Norvasc. 3. Acquired Hypothyroidism: cont synthroid 4. Depression: cont prozac and Cymbalta 5. DVT Prevention: lovenox 6. Pain Management: percocet prn 7. Stress ulcer prophylaxis: PPI 8. Bladder management: monitor voiding pattern, monitor bladder scans/PVRs, straight cath per parameters. 9. Bowel management: monitor stooling pattern, continue bowel program adjust laxatives as needed. Finesse Zheng MD * Vonda Alegre, RN - 03/03/2017 10:00 PM CDT Undress and Assess performed by: Vonda Riggs Patient does not have skin breakdown. Compare to last Wound Care note, if applicable. Location of breakdown:n/a Description of breakdown(including measurement):n/a Wound care consult was not initiated. Always reconsult Wound Care for change or deterioration of wounds. * Vonda Alegre, RN - 03/03/2017 8:00 PM CDT Elopement Risk Assessment/Re-Assessment Ms. Kaitlin Bond is a 66 y.o. female currently in who was admitted 03/03/2017 6:21 PM andwill be evaluated for elopement risk. (Enter 1 if they meet the criteria) Yes Elopement Risk Factors 0 If any of these questions are answered YES, the patient is a high risk automatically: 1. A. History of past elopements? B. The patient is dangerous to self or others? C. Patient wanders including risky behaviors such as trying to open doors? 1 2. Patient has a brain injury, dementia, depression, or mental illness 1 3. Patient experiences delusions, anxiety or confusion 1 4. Patient moves about freely and independently with or without devices such as walker, wheelchair, etc. 0 5. Patient has impulsive behaviors 0 6. Patient says that they want to leave, to go home, etc. 0 7. Patient lingers near doors or exits 0 8. Current or history of substance abuse 0 9. Patient has had a recent loss or personal tragedy Nursing Judgement Nursing may use professional judgement to escalate a patients risk level. Low Risk Consideration 0 - 5 Risk Factors Identified Continue to monitor Moderate Risk Consideration 6 -7 Risk Factors Identified Continue to monitor, consider observation room. Notify physician if change in condition. High Risk Consideration 8 - 9 Risk Factors Identified Continue to monitor, consider observation room or close observation by staff to monitor for elopement behaviors/indicators. Consider limited egress unit. Notify physician if change in condition. Obtain Psychology Consult. ?? Based on my evaluation Ms. Kaitlin Bond elopement risk is low ?? High Risk patients will be re-evaluated weekly. ?? IMPORTANT: Nurses to notify the Charge Nurse of patients with a High Risk Level for follow up. For Scores of 6 - 9 see Care Plan Vonda Alegre RN 03/04/2017 2:46 AM Patient Education on Medications Education provided Re: Kaitlin Bond This education was provided to the patient Name of medication: all scheduled meds The education included the following: Understanding the side effects of their medication Vonda Alegre RN Patient had no falls this shift and is fall risk level/color red Interventions in Place: [x] Fall Risk Armband on Patient [x] Call Light within Reach [x] Bed Alarm [x] Chair Alarm [] Sitter [x] Fall Risk Magnet on Door [x] Fall Risk Magnet on Schedule Board [] Wrist Coil Handoff in Place [] Low Bed and Mats in Place [] Room Close to Nurses Station [] Other: documented in this encounter H&P Notes * Finesse Zheng MD - 03/03/2017 6:58 PM CDT Rehabilitation Facility Admission History and Physical from a FACE TO FACE Encounter with patient on 03/03/2017 AND Inpatient Rehabilitation Facility Post Admission Physician Assessment Admission Date: 03/03/2017 6:21 PM Chief Complaint: I need to be able to walk Rehab Diagnosis and Reason for Admission: 1. Cervical spine stenosis with myelopathy, s/p C3-4 anterior cervical discectomy, C3-4 arthrodesis, C3-4 instrumentation on 02/[address] Gutierrez. 2. Frequent falls 3. Anxiety/depression 4. HTN 5. HLD 6. Hypothyroidism 7. Urinary incontinence History of Present Illness: Kaitlin Bond is a 66 yo F with PMH of anxiety/depression, HTN, HLD, hypothyroidism, neuropathy, cervical spine stenosis C3-4 anterior cervical discectomy, C3-4 arthrodesis, C3-4 instrumentation on02/[address] Gutierrez. She was discharged home post-operatively. Since returning home, she had been falling frequently and having a hard time walking and getting around. She was evaluated in Dr. Gutierrez???s office on 02/28 and was direct admitted to [facility]. MRI was negative. She is on Lovenox for DVT prophylaxis and can be fully anticoagulated if needed. She is getting Tylenol and Valium for pain. She is continent of bowel/bladder, LBM 02/27. As patient was medically appropriate, she was transferred to [facility] for comprehensive rehabilitation. 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 She was getting assist from her for ADLs and was using a wwr for the last 6 months due to her back pain and decreased balance. Since her recent surgery, patient stated her pain improved, but balance worsened. She noted that she always falls to the left and backwards. Mod A for LB dressing, mod A for toileting,min A bed mobility, min A sit <> stand, and min/mod A to ambulate 40 feet with wwr. Allergies: Adhesive; Gadolinium-containing contrast media; and Magnevist [gadopentetate dimeglumine] Current Facility-Administered Medications Ordered in Epic Medication Dose Route Frequency Provider Last Rate Last Dose ??? acetaminophen (TYLENOL) tablet 650 mg 650 mg Oral q 4 hour PRN Strike, Yasmin R, DO ??? [START ON 03/04/2017] amLODIPine (NORVASC) tablet 10 mg 10 mg Oral Daily Strike, Yasmin R, DO ??? atorvastatin (LIPITOR) tablet 20 mg 20 mg Oral Daily LATE Strike, Yasmin R, DO ??? [START ON 03/04/2017] cyanocobalamin (VITAMIN B-12) tablet 100 mcg 100 mcg Oral Daily Strike, Yasmin R, DO ??? diazePAM (VALIUM) tablet 5 mg 5 mg Oral q 8 hour PRN Strike, Yasmin R, DO ??? DULoxetine (CYMBALTA) capsule 60 mg 60 mg Oral Daily BEDTIME Strike, Yasmin R, DO ??? FLUoxetine (PROzac) capsule 40 mg 40 mg Oral Daily BEDTIME Strike, Yasmin R, DO ??? [START ON 03/04/2017] levothyroxine (SYNTHROID) tablet 50 mcg 50 mcg Oral Daily EARLY Strike, Yasmin R, DO ??? lisinopril (PRINIVIL) tablet 40 mg 40 mg Oral Daily BEDTIME Strike, Yasmin R, DO ??? diphenhydrAMINE (BENADRYL) tablet 25 mg 25 mg Oral q 6 hour PRN Strike, Yasmin R, DO ??? oxyCODONE-acetaminophen (PERCOCET) 5-325 mg per tablet 1 Tablet 1 Tablet Oral q 4 hour PRN Strike, Yasmin R, DO ??? naloxone (NARCAN) 0.4 mg/mL injection 0.1 mg 0.1 mg IV See Admin Notes Strike, Yasmin R, DO ??? ondansetron (ZOFRAN ODT) tablet 4 mg 4 mg Oral q 6 hour PRN Strike, Yasmin R, DO ??? bisacodyl (DULCOLAX) rectal suppository 10 mg 10 mg Rectal Daily PRN Strike, Yasmin R, DO ??? docusate sodium (COLACE) capsule 100 mg 100 mg Oral BID PRN Strike, Yasmin R, DO ??? enoxaparin (LOVENOX) injection 40 mg 40 mg subCUT q 24 hour Yasmin Vieyra R, DO ??? zolpidem (AMBIEN) tablet 5 mg 5 mg Oral HS PRN Yasmin Vieyra R, DO ??? [START ON 03/04/2017] pantoprazole (PROTONIX) tablet 40 mg 40 mg Oral Daily Yasmin Vieyra R, DO ??? [START ON 03/04/2017] calcium-cholecalciferol (OS-IAN 500+D) tablet 1 Tablet 1 Tablet Oral DailyStrisandra Yasmin R, DO Past Medical History: Diagnosis Date ??? Anxiety [...] C3-4 performed by Mylene Gutierrez MD at [facility] No family history on file. Social History Social History ??? Marital status: [...] History Narrative ??? No narrative on file Current diet: regular Review of Systems: The patient denies any headaches, lightheadedness or dizziness. No fever, chills or night sweats. No hemoptysis, hematemesis, hematuria or bright red blood per rectum. Denies any chest pain or chest tightness. No palpitations, paroxysmal nocturnal dyspnea or orthopnea. Denies shortness of breath and dyspnea on exertion. Denies cough. No history of pulmonary embolism or deep venous thrombosis. No heat or cold intolerance. + history of thyroid disease. Reports a stable appetite. No significant weight gain or weight loss. +urinary symptoms. C/o right leg weak. Remainder of review of systems is as noted in the history of present illness. Examination/Laboratory/Imaging Review There were no vitals taken for this visit. General appearance: alert, in no distress Skin/sores/incisions: No rashes or lesions; Surgical incision healed. HEENT: Atraumatic, Normocephalic. PERRL, EOM's intact; Neck: supple, symmetrical, trachea midline, no adenopathy. Lungs/Chest wall: clear to auscultation bilaterally, normal respiratory effort, no tenderness. CardioVasc: normal rate and regular rhythm, no edema, intact distal pulses Abdomen: Soft, non-tender. Bowel sounds normal. No masses, no organomegaly. Musculoskeletal: no joint tenderness, deformity or swelling. Neurologic: Mental status: Alert, awake, responsive, oriented to time and place and person. Language: Fluent Cranial nerves: Pupils are normal reactive to light EOM: full, normal visual vega No ptosis Normal facial sensation and no facial weakness Normal hearing No tongue weakness or fasciculations or atrophy Normal palate elevation Muscle strength: Right: 5/5 in UExts proximally and distally; R Lower Extremity: hip flex 3+/5, knee ext/flex 4/5, ankle DF 4/5, hip ext and ankle PF 4+/5 Left: 5/5 in UE/LExts proximally and distally. Muscle Stretch Reflexes: brisk and symmetric. Sensory exam: normal touch and pinprick bilaterally. Cerebellar exam: no tremors. Gait: not tested. Psych: affect is blunted. Labs reviewed. Lab Results Component Value Date/Time WBC 8.6 02/28/2017 12:31 PM HGB 13.5 02/28/2017 12:31 PM HCT 40.9 02/28/2017 12:31 PM PLT 588 (H) 02/28/2017 12:31 PM MCV 90.7 02/28/2017 12:31 PM No results found for: IRON, TIBC, FERRITIN Lab Results Component Value Date/Time NA 137 03/03/2017 04:03 AM K 4.3 03/03/2017 04:03 AM CL 96 (L) 03/03/2017 04:03 AM CO2 31 (H) 03/03/2017 04:03 AM CA 8.9 03/03/2017 04:03 AM BUN 12 03/03/2017 04:03 AM CREAT 0.67 03/03/2017 04:03 AM GLUCOSE 89 03/03/2017 04:03 AM ANIONGAP 10 03/03/2017 04:03 AM No results found for: TSH, TSHULTRA, THYROIDSTIM, T3, T3FREE, B5VGNCSO, T4, T4FREE, FT4E, TPO, THROIDAB, THYROIDMI No results found for: [id number] No results found for: HUSL766, VITD25, [id number], AGLT54WBU0, FVPZ78NWSR, 25OHVITD No results found for: HGBA1C, KGPQ1QYCI No results found for: PHUA, SGUR, URINELEUKOC, NITRITEUA, KETONEURINE, PROTEINUA, GLUUA, BLOODUA, WBCU, WBCURINE, RBCUA, BACTERIAUA, UREPITHELIAL Radiology reports reviewed per medical records. Assessment/Plan/Interventions: 1. Cervical spine stenosis with myelopathy, s/p C3-4 anterior cervical discectomy, C3-4 arthrodesis, C3-4 instrumentation on 02/[address] Gutierrez. The patient will be admitted for inpatient comprehensive interdisciplinary rehabilitation to address the impairments and medical conditions as listed above . Physical Therapy will work on lower body strengthening, transfer and mobility skills. Occupational Therapy will evaluate and treat upper body weakness and work on independent self care and need forany adaptive equipment. Speech Therapy will work with cognitive functioning, speech, communication and any swallowing needs. Rehab nurse will monitor bowel/bladder function, skin integrity, and provide education as needed. This interdisciplinary program will be performed under the direction of a agricultural chemist. 2. Essential hypertension: cont lisinopril, Norvasc. 3. Acquired Hypothyroidism: cont synthroid 4. Depression: cont prozac and Cymbalta 5. DVT Prevention: lovenox 6. Pain Management: percocet prn 7. Stress ulcer prophylaxis: PPI 8. Bladder management: monitor voiding pattern, monitor bladder scans/PVRs, straight cath per parameters. 9. Bowel management: monitor stooling pattern, continue bowel program adjust laxatives as needed. Barriers to immediate discharge to prior living situation include: ?? above noted new/worsened impairments and their resultant reduction in function from premorbid (as noted above) ?? patient/caregiver lack of knowledge in managing new impairments/medical diagnoses ?? need for new/ongoing medical interventions ?? inaccessible home environment ?? need for caregiver training ?? need to function at a higher level than current due to no or limited caregiver assistance available ?? lack of access to care in another setting ?? training required with durable medical equipment Risks for medical and/or functional complications to patient if NOT admitted to Inpatient Rehabilitation Facility with daily physician management including physical medicine and rehabilitation physician, rehabilitation specialty nursing, multidisciplinary therapy program with access to rehabilitation psychology, orthotics/prosthetics include: ?? Inadequate management of hypertension ?? Aspiration pneumonia ?? Malnutrition and/or dehydration due to insufficient intake of food/fluids orally ?? Pressure sore development or worsening ?? Wound non/impaired healing ?? Urinary tract infection due to incomplete bladder emptying or prolonged catheterization ?? Constipation ?? Hypoxemia ?? Muscle/joint/soft tissue contractures ?? Insufficiently managed musculoskeletal or neuropathic pain ?? Worsened neurologic status due to medications/metabolic reasons/worsened medical disease ?? Not reaching full potential for functional recovery of transfers, ambulation, mobility, self care, communication, cognition due to inadequate or incorrect specialized therapy services THEREFORE: Admit to comprehensive inpatient rehabilitation program including: ?? physical therapy 5 days per week 90 minutes each day ?? occupational therapy 5 days per week 90 minutes each day ?? rehabilitation nursing twenty four hours/day ?? psychology consultation as needed Estimated Length of Stay: 2 weeks Overall Goals for Inpatient Rehabilitation Facility admission: Achieve/Maintain Medical Stability Achieve safe and adequate nutrition and hydration Achieve Adequate management of pain Determine need for and assist in obtaining needed Durable Medical Equipment Patient and family education/training Maximize mobility to: Modified Evans Maximize self care/ADLs to: Modified Evans Prognosis to meet stated goals: good Anticipated discharge destination: Home with spouse Anticipated continued treatments after Inpatient Rehabilitation Facility discharge: [facility] vs OP therapy program. I reviewed this plan with patient and they are in agreement to proceed. This post admission physician assessment is in agreement with the preadmission assessment performed. Statement of Medical Necessity: The patient is sufficiently stable to participate in the rehabilitation program. In my professional judgment and rehabilitation experience, the patient meets medical necessity criteria, requires an inpatient stay to manage his/her needs for nursing and medical management ( the nursing needs require rehabilitation nursing, the medical needs require supervision by a rehabilitation physician at least three times per week), and requires the interdisciplinary team approach of an intensive inpatient rehabilitation program. The patient can reasonably be expected to par ticipate in, and benefit from, the intensive rehabilitation program. Total time spent on this evaluation, examination, application counselor with patient and/or family/caregivers, determination documentation and initiation of plan of care was more than 70 minutes. Finesse Zheng MD documented in this encounter Procedure Notes * Aracely Longoria RCP - 03/06/2017 1:06 PM CSTAssociated Order(s): RT ASSESS AND TREAT Respiratory Care Practitioner Note: Kaitlin Bond RT A&T/Respiratory Care Consult for respiratory care recommendations. No Follow: Currently no clinical indication is noted for respiratory therapy intervention or follow. Please call RT at [phone] for a change in patient condition. Vitals, Labs, and Patient history were reviewed. BP 114/77 (BP Location: Left arm, Patient Position (BP): Supine) Pulse 96 Temp 97.5 ??F (36.4 ??C) (Oral) Resp 18 Ht 5' 3 (1.6 m) Wt 59.9 kg (132 lb) SpO2 100% BMI 23.38 kg/m?? Lab Results Component Value Date/Time HEMATOCRIT 42.7 03/06/2017 06:05 AM HEMOGLOBIN 14.3 03/06/2017 06:05 AM Thank you, Aracely Longoria, BACK END DEVELOPER, PODIATRIC FOOT AND ANKLE SPECIALIST Lead Respiratory Therapist [facility] [phone] Minutes were spent in the care of this patient today; this may have included EMR review, family/patient education or conferences, and discussions with any consultants. NCIAL REPORTING MANAGER documented in this encounter Consult Notes * Tae Livingston, RD - 03/08/2017 3:04 PM CSTAssociated Order(s): IP CONSULT TO NUTRITION SERVICES CLINICAL DIETITIAN ASSESSMENT NOTE [facility] Kaitlin Bond 66 y.o. female A: Pt reports a poor appetite recently. Does admit fear of gaining weight d/t decreased activity. States she was up to 156 lbs a few months ago d/t not being able to do anything but has had intentional weight loss since. No N/V. Diagnosis: cervical stenosis s/p C3-4 ACDF Patient Active Problem List Diagnosis Code ??? Cervical stenosis of spine M48.02 ??? Essential hypertension I10 ??? Depression F32.9 ??? Fall W19.XXXA ??? Cervical myelopathy G95.9 Diet: DIET GENERAL Effective Now Supplements: none PO: 10-100 with 40% avg, fair overall Allergies Allergen Reactions ??? Adhesive Rash ??? Adhesive Tape-Silicones Rash Reaction: RASH ??? Gadolinium-Containing Contrast Media Hives ??? Magnevist [Gadopentetate Dimeglumine] Hives Height: 5' 3 (160 cm) (03/03/172199) Weight: 59.9 kg (132 lb) (03/05/17 1000) Body mass index is 23.38 kg/m??. IBW/kg (Calculated) Female: 52.4 kg (03/03/170) IBW/kg (Calculated) Male: 56.9 kg (03/03/170) Wt Readings from Last 3 Encounters: 03/05/17 59.9 kg (132 lb) 02/28/17 59 kg (130 lb) 02/16/17 62.7 kg (138 lb 3.2 oz) Last Bowel Movement (mm/dd/yyyy): 03/07/17 (03/07/17 1500) Nadir Score: 19 (03/08/17 1000) Skin: no staged pressure injury Edema (per provider catalogue illustrator charting): none Pert Meds: amlodipine, atorvastatin, lipitor Pert Labs: Lab Results Component Value Date/Time NA 131 (L) 03/08/2017 07:06 AM K 3.9 03/08/2017 07:06 AM BUN 8 03/08/2017 07:06 AM CREAT 0.65 03/08/2017 07:06 AM GLUCOSE 85 03/08/2017 07:06 AM CA 9.0 03/08/2017 07:06 AM ALBUMIN 4.0 03/04/2017 06:00 AM GFR >60 03/08/2017 07:06 AM No results found for: CHOLTOT, HDL, LDLCALC, LDLDIRECT, TRIGLYCERIDE D: Inadequate oral intake r/t decreased appetite to consume sufficient energy as evidenced by variable and/or fair charted PO intake I: Nutrition Prescription / Intervention / Recommendations: General diet. Encouraged goal of at least 75% of meals. Provided an alternative menu. Started ensure HP @ 9pm. Discussed healthier food options that would promote healing but wouldn't contain excess kcal or sugar. Pt V/U. Nutrition Risk: moderate M/E: 1. Monitor nutrition, weight, lab values, and skin. Follow up based on nutrition risk or as needed. Tae Livingston RD, LD NCIAL REPORTING MANAGER * Carson Elias MD - 03/04/2017 5:13 AM CDTAssociated Order(s): IP CONSULT TO INTERNAL MEDICINE Images from the original note were not included. Internal Medicine Consult CARSON ELIAS MD 03/04/2017 Patient Name: Kaitlin Bond Admit Date: 03/03/2017 PCP: Gadiel Zavala MD Consult requested by Yasmin Reese DO Patient Name: Kaitlin Bond PCP: Gadiel Zavala MD Date of admission: 03/03/2017 Date of Service: 03/04/2017 Reason for Consultation: Medical Management HPI: Patient is a 66 y.o. female with a h/o anxiety/depression, HTN, HLD, hypothyroidism, neuropathy, and PUD. She had a C3-4 anterior cervical discectomy, C3-4 arthrodesis, C3-4 instrumentation on 02/[address] Gutierrez. She was discharged home post-operatively. Since returning home, she had been falling frequently and having a hard time walking and getting around. She was evaluated in Dr. Gutierrez???tata on 02/28 and was direct admitted to [facility] for a MRI evaluation and PT/OT evaluation. MRI negative for any type of contusion. NSGY???s assessment revealed strength at 5/5 except her RLE was 4/5. She is able to move all extremities full/symmetric and her sensory is intact to her LT. Her incision is C/D/I and healing well. NSGY felt patient was at high risk for continued falls with her ongoing myelopathy. She is on Lovenox for DVT prophylaxis and can be fully anticoagulated if needed. She is getting Tylenol and Valium for pain. She is continent of bowel/bladder, LBM 02/27. Since her recent surgery, patient stated her pain improved, but balance worsened. She noted that she always falls to the left and backwards. PMHx: Past Medical History: Diagnosis Date ??? [...] C3-4 performed by Mylene Gutierrez MD at [facility] All: Allergies Allergen Reactions ??? Adhesive Rash ??? Adhesive Tape-Silicones Rash Reaction: RASH ??? Gadolinium-Containing Contrast Media Hives ??? Magnevist [Gadopentetate Dimeglumine] Hives Outpt Meds: Cannot display prior to admission medications because the patient has not been admitted in this contact. Inpatient Meds: Current Facility-Administered Medications: ??? acetaminophen (TYLENOL) tablet 650 mg, 650 mg, Oral, q 4 hour PRN, Strike, Yasmin R, DO ??? amLODIPine (NORVASC) tablet 10 mg, 10 mg, Oral, Daily, Strike, Yasmin R, DO ??? atorvastatin (LIPITOR) tablet 20 mg, 20 mg, Oral, Daily LATE, Strike, Yasmin R, DO, 20 mg at 03/03/172158 ??? cyanocobalamin (VITAMIN B-12) tablet 100 mcg, 100 mcg, Oral, Daily, Strike, Yasmin R, DO ??? diazePAM (VALIUM) tablet 5 mg, 5 mg, Oral, q 8 hour PRN, Strike, Yasmin R, DO, 5 mg at 03/03/172203 ??? DULoxetine (CYMBALTA) capsule 60 mg, 60 mg, Oral, Daily BEDTIME, Strike, Yasmin R, DO, 60 mg at 03/03/172157 ??? FLUoxetine (PROzac) capsule 40 mg, 40 mg, Oral, Daily BEDTIME, Strike, Yasmin R, DO, 40 mg at 03/03/172157 ??? levothyroxine (SYNTHROID) tablet 50 mcg, 50 mcg, Oral, Daily EARLY, Strike, Yasmin R, DO ??? lisinopril (PRINIVIL) tablet 40 mg, 40 mg, Oral, Daily BEDTIME, Strike, Yasmin R, DO, 40 mg at105/03/162158 ??? diphenhydrAMINE (BENADRYL) tablet 25 mg, 25 mg, Oral, q 6 hour PRN, Strike, Yasmin R, DO ??? oxyCODONE-acetaminophen (PERCOCET) 5-325 mg per tablet 1 Tablet, 1 Tablet, Oral, q 4 hour PRN, Strike, Yasmin R, DO ??? naloxone (NARCAN) 0.4 mg/mL injection 0.1 mg, 0.1 mg, IV, See Admin Notes, Strike, Yasmin R, DO ??? ondansetron (ZOFRAN ODT) tablet 4 mg, 4 mg, Oral, q 6 hour PRN, Strike, Yasmin R, DO ??? bisacodyl (DULCOLAX) rectal suppository 10 mg, 10 mg, Rectal, Daily PRN, Strike, Yasmin R, DO ??? docusate sodium (COLACE) capsule 100 mg, 100 mg, Oral, BID PRN, Strike, Yasmin R, DO ??? enoxaparin (LOVENOX) injection 40 mg, 40 mg, subCUT, q 24 hour, Strike, Yasmin R, DO, 40 mg at105/03/16 2321 ??? zolpidem (AMBIEN) tablet 5 mg, 5 mg, Oral, HS PRN, Strike, Yasmin R, DO ??? pantoprazole (PROTONIX) tablet 40 mg, 40 mg, Oral, Daily, Strike, Yasmin R, DO ??? calcium-cholecalciferol (OS-IAN 500+D) tablet 1 Tablet, 1 Tablet, Oral, Daily, Strike, Yasmin R, DO ??? [DISCONTINUED] calcium-cholecalciferol (D3) (CALTRATE 600+D3) 600 mg (1,500 mg)-800 unit tablet1 Tablet, 1 Tablet, Oral, Daily, Strike, Yasmin R, DO ??? [DISCONTINUED] eszopiclone (LUNESTA) tablet 4.5 mg, 4.5 mg, Oral, HS PRN, Strike, Yasmin R, DO ??? [DISCONTINUED] omeprazole (PriLOSEC) capsule 40 mg, 40 mg, Oral, Daily, Strike, Yasmin R, DO Facility-Administered Medications Ordered in Other Encounters: ??? [COMPLETED] amLODIPine (NORVASC) tablet 5 mg, 5 mg, Oral, ONCE, Dinh Mahmood MD, 5 mg at 03/03/17 1353 ??? [DISCONTINUED] amLODIPine (NORVASC) tablet 5 mg, 5 mg, Oral, Daily, Dinh Mahmood MD, 5 mgat 03/03/17 0949 ??? [DISCONTINUED] amLODIPine (NORVASC) tablet 10 mg, 10 mg, Oral, Daily, Dinh Mahmood MD ??? [DISCONTINUED] sodium chloride 0.9 % flush injection 5 mL, 5 mL, IV, q 12 hour (BID), Mylene Gutierrez MD, 5 mL at 03/03/17 0852 ??? [DISCONTINUED] sodium chloride 0.9 % flush injection 5 mL, 5 mL, IV, See Admin Notes, Mylene Gutierrez MD ??? [DISCONTINUED] sodium chloride 0.9 % 250 mL flush bag 25 mL, 25 mL, IV, See Admin Notes, Mylene Gutierrez MD ??? [DISCONTINUED] dextrose 5 % in water 250 mL flush bag 25 mL, 25 mL, IV, See Admin Notes, Mylene Gutierrez MD ??? [DISCONTINUED] acetaminophen (TYLENOL) tablet 650 mg, 650 mg, Oral, q 4 hour PRN, Jocy Shay PA, 650 mg at 03/01/17 1526 ??? [DISCONTINUED] diazePAM (VALIUM) tablet 5 mg, 5 mg, Oral, q 8 hour PRN, Jocy Shay PA, 5 mg at 03/02/17 2216 ??? [DISCONTINUED] atorvastatin (LIPITOR) tablet 20 mg, 20 mg, Oral, Daily BEDTIME, Jocy Shay PA, 20 mg at 03/02/172048 ??? [DISCONTINUED] DULoxetine (CYMBALTA) capsule 60 mg, 60 mg, Oral, Daily BEDTIME, Jocy Shay PA, 60 mg at 03/02/172048 ??? [DISCONTINUED] levothyroxine (SYNTHROID) tablet 50 mcg, 50 mcg, Oral, Daily EARLY, Jocy Shay PA, 50 mcg at 03/03/17 0609 ??? [DISCONTINUED] cyanocobalamin (VITAMIN B-12) tablet 100 mcg, 100 mcg, Oral, Daily, Jocy Shay PA, 100 mcg at 03/03/17 0851 ??? [DISCONTINUED] lisinopril (PRINIVIL) tablet 40 mg, 40 mg, Oral, Daily BEDTIME, Agusto Shay PA, 40 mg at 03/02/172047 ??? [DISCONTINUED] FLUoxetine (PROzac) capsule 40 mg, 40 mg, Oral, Daily BEDTIME, Jocy Shay PA, 40 mg at 03/02/172048 ??? [DISCONTINUED] oxyCODONE-acetaminophen (PERCOCET) 5-325 mg per tablet 1 Tablet, 1 Tablet, Oral,q 6 hour PRN, Dinh Mahmood MD ??? [DISCONTINUED] enoxaparin (LOVENOX) injection 40 mg, 40 mg, subCUT, q 24 hour, Dinh Mahmood MD, 40 mg at 03/02/172049 SocHx: Social History Substance Use Topics ??? Smoking status: Former Smoker Years: 5.00 Types: Cigarettes Quit date: 1988 ??? Smokeless tobacco: Never Used Comment: 4 per day ??? Alcohol use Yes Comment: 1-2 times per month 1 drink FamHx: No family history on file. Review of Systems History from chart review and the patient General positive for - fatigue ENT negative for nasal congestion, drainage or bleeding, sore throat, dysphagia or ear pain Heme/Lymph negative for swollen glands or abnormal bleeding Endocrine negative for polyuria/polydipsia or new changes in weight CV negative for chest pain or dyspnea on exertion Respiratory negative for cough, shortness of breath, or wheezing GI positive for - change in bowel habits positive for - change in urinary stream MS positive for - gait disturbance, joint pain and muscular weakness Neuro positive for - gait disturbance, impaired coordination/balance and weakness All Other ROS Negative BP (!) 155/98 (BP Location: Right arm, Patient Position (BP): Supine) Pulse 98 Temp 97.2 ??F (36.2 ??C) (Oral) Resp 18 Ht 5' 3 (1.6 m) Wt 61 kg (134 lb 8 oz) SpO2 100% BMI 23.83 kg/m?? General appearance Alert, no distress Head Normocephalic, without obvious abnormality, atraumatic Eyes PERRL, EOM's intact. Throat Oropharynx clear Neck Supple, post op changes healing Lungs Clear to auscultation bilaterally Heart Regular rate and rhythm Abdomen Soft, non-tender. Bowel sounds normal. Extremities No edema Neurologic moves all extremities, RLE weaker than LLE CBC:No results for input(s): WBC, HGB, HCT, PLT, MCV in the last 72 hours. BMP: Recent Labs 03/03/17 0403 GLUCOSE 89 BUN 12 CREAT 0.67 NA 137 K 4.3 CL 96* CO2 31* ANIONGAP 10 CA 8.9 EKG: unchanged from previous tracings CXR: No results found for this or any previous visit. Patient Active Problem List Diagnosis Code ??? Cervical stenosis of spine M48.02 ??? Essential hypertension I10 ??? Depression F32.9 ??? Fall W19.XXXA 1. Cervical stenosis of spine with myelopathy: s/p C3-4 ACDF, Dr Gutierrez. Recurrent falls and persistent weakness. Comprehensive rehab program. Pain control, wound care, f/u with neurosurgery as arranged. Fall precautions. Ca + D 2. Hypertension: Lisinopril, norvasc. Adjust as required for improved control 3. Hypothyroidism: synthroid 4. Depression/anxiety: Prozac, cymbalta 5. GERD: PPI 6. B12 def: Supplement 7. Constipation: Bowel regimen Thank you for involving me in this patient's care. I will continue to follow along with you. ?? DVT Prophylaxis lovenox ?? GI prophylaxis: proton pump inhibitor ?? Code Status Full Code 1 hour were spent in the care of this patient today; this may have included family conferences, nursing conferences and discussion with any consultants CARSON ELIAS MD documented in this encounter Miscellaneous Notes * Care Plan - Delmy Wood RN - 03/13/2017 10:31 AM CST No complaints of pain. Patient had no falls this shift and is fall risk level/color yellow Interventions in Place: [x] Fall Risk Armband on Patient [x] Call Light within Reach [] Bed Alarm [] Chair Alarm [] Sitter [x] Fall Risk Magnet on Door [x] Fall Risk Magnet on Schedule Board [] Wrist Coil Handoff in Place [] Low Bed and Mats in Place [] Room Close to Nurses Station [] Other: Patient Education on Medications Education provided Re: Kaitlin Bond This education was provided to the patient Name of medication: lisinopril The education included the following: Administering their medication, Understanding the side effects of their medication Delmy Wood, RN NCIAL REPORTING MANAGER * Care Plan - Katey Rojo RN - 03/13/2017 1:20 AM CST Patient had no falls this shift and is fall risk level/color red Interventions in Place: [x] Fall Risk Armband on Patient [x] Call Light within Reach [x] Bed Alarm [x] Chair Alarm [] Sitter [x] Fall Risk Magnet on Door [x] Fall Risk Magnet on Schedule Board [] Wrist Coil Handoff in Place [] Low Bed and Mats in Place [] Room Close to Nurses Station [] Other: NCIAL REPORTING MANAGER * Care iFde - Carolina Cesar RN - 03/12/2017 3:18 PM CST Patient had no falls this shift and is fall risk level/color YELLOW Interventions in Place: [x] Fall Risk Armband on Patient [x] Call Light within Reach [] Bed Alarm [] Chair Alarm [] Sitter [x] Fall Risk Magnet on Door [x] Fall Risk Magnet on Schedule Board [] Wrist Coil Handoff in Place [] Low Bed and Mats in Place [] Room Close to Nurses Station [] Other: Patient Education on Medications Education provided Re: Kaitlin Bond This education was provided to the patient Name of medication: Na The education included the following: Administering their medication, Understanding the side effects of their medication Carolina Cesar RN NCIAL REPORTING MANAGER * Care Plan - Katey Rojo RN - 03/12/2017 3:21 AM CST Patient had no falls this shift and is fall risk level/color red Interventions in Place: [x] Fall Risk Armband on Patient [x] Call Light within Reach [x] Bed Alarm [x] Chair Alarm [] Sitter [x] Fall Risk Magnet on Door [x] Fall Risk Magnet on Schedule Board [] Wrist Coil Handoff in Place [] Low Bed and Mats in Place [] Room Close to Nurses Station [] Other: NCIAL REPORTING MANAGER * Yordy Elizalde - Carolina Cesar RN - 03/11/2017 1:51 PM CST Patient had no falls this shift and is fall risk level/color YELLOW Interventions in Place: [x] Fall Risk Armband on Patient [x] Call Light within Reach [] Bed Alarm [] Chair Alarm [] Sitter [x] Fall Risk Magnet on Door [x] Fall Risk Magnet on Schedule Board [] Wrist Coil Handoff in Place [] Low Bed and Mats in Place [] Room Close to Nurses Station [] Other: Patient Education on Medications Education provided Re: Kaitlin Bond This education was provided to the patient Name of medication: zeferino The education included the following: Administering their medication, Understanding the side effects of their medication Carolina Cesar RN NCIAL REPORTING MANAGER * Care Plan - Katey Rojo RN - 03/11/2017 12:47 AM CST Patient had no falls this shift and is fall risk level/color red Interventions in Place: [x] Fall Risk Armband on Patient [x] Call Light within Reach [x] Bed Alarm [] Chair Alarm [] Sitter [x] Fall Risk Magnet on Door [x] Fall Risk Magnet on Schedule Board [] Wrist Coil Handoff in Place [x] Low Bed and Mats in Place [] Room Close to Nurses Station [] Other: NCIAL REPORTING MANAGER * Care Plan - Magaly Obregon RN - 03/10/2017 4:17 PM CST Patient had no falls this shift and is fall risk level/color red Interventions in Place: [x] Fall Risk Armband on Patient [x] Call Light within Reach [x] Bed Alarm [x] Chair Alarm [] Sitter [x] Fall Risk Magnet on Door [x] Fall Risk Magnet on Schedule Board [] Wrist Coil Handoff in Place [] Low Bed and Mats in Place [] Room Close to Nurses Station [] Other: NCIAL REPORTING MANAGER * Care Plan - Yuridia Colindres RN - 03/10/2017 5:55 AM CST Patient had no falls this shift and is fall risk level/color Red Interventions in Place: [x] Fall Risk Armband on Patient [x] Call Light within Reach [x] Bed Alarm [] Chair Alarm [] Sitter [x] Fall Risk Magnet on Door [x] Fall Risk Magnet on Schedule Board [] Wrist Coil Handoff in Place [] Low Bed and Mats in Place [] Room Close to Nurses Station [] Other: NCIAL REPORTING MANAGER * Care Plan - Luz Elena Cotto RN - 03/09/2017 7:52 AM CST Patient slept half the night with call light within reach. Patient requested a high protein shake at bedtime and then complained that she would rather have it with breakfast because it made me use the bathroom too much. Patient had no falls this shift and is fall risk level/color red. Interventions in Place: [x] Fall Risk Armband on Patient [x] Call Light within Reach [x] Bed Alarm [] Chair Alarm [] Sitter [x] Fall Risk Magnet on Door [x] Fall Risk Magnet on Schedule Board [] Wrist Coil Handoff in Place [] Low Bed and Mats in Place [] Room Close to Nurses Station [] Other: Patient Education on Medications Education provided Re: Kaitlin Bond This education was provided to the patient Name of medication: Lisinopril, duloxetine. The education included the following: How to identify their medication, Administering their medication, Storage of their medication, Understanding the side effects of their medication Luz Elena Flores RN NCIAL REPORTING MANAGER * Care Plan - Kanchan Arteaga RN - 03/08/2017 10:35 AM CST Kaitlin Bond is a 66 y.o. female in bed 229/1 who is admitted here for therapy whos treatment is progressing well along their designated pathway. Patient takes Oxycodone for pain and has had no issues today with pain today Patient is on RA and is eupneic Lungs sounds are clear Patient jovial, pleasant and resting in room without signs and symptoms of issues. Fall risk level: RED Patient denies pain/wants/needs/issues with care. Call light and all personal effects, room phone and call light are within reach and visible. Speech is clear and patient is able to make needs known. Patient had no falls this shift and has been educated on fall prevention effectively. Interventions in Place: [x] Fall Risk Armband on Patient [x] Call Light within Reach [] Bed Alarm [] Chair Alarm [] Sitter [] Fall Risk Magnet on Door [] Fall Risk Magnet on Schedule Board [] Wrist Coil Handoff in Place [] Low Bed and Mats in Place [x] Room Close to Nurses Station [] Other: Patient Education on Medications Education provided Re: Kaitlin Bond This education was provided to the patient Name of medication: Robaxin The education included the following: Understanding the side effects of their medication Kanchan Arteaga RN NCIAL REPORTING MANAGER * Care Plan - Kanchan Arteaga RN - 03/07/2017 9:38 AM CST Kaitlin Bond is a 66 y.o. female in bed 229/1 who is admitted here for therapy whos treatment is progressing well along their designated pathway. Patient takes Oxycodone for pain and has had mild issues today with pain in neck Patient is on RA and is eupneic Lungs sounds are clear Patient jovial, pleasant and resting in room without signs and symptoms of issues. Fall risk level: RED Patient denies pain/wants/needs/issues with care. Call light and all personal effects, room phone and call light are within reach and visible. Speech is clear and patient is able to make needs known. Patient had no falls this shift and has been educated on fall prevention effectively. Interventions in Place: [x] Fall Risk Armband on Patient [x] Call Light within Reach [] Bed Alarm [] Chair Alarm [] Sitter [] Fall Risk Magnet on Door [] Fall Risk Magnet on Schedule Board [] Wrist Coil Handoff in Place [] Low Bed and Mats in Place [x] Room Close to Nurses Station [] Other: Patient Education on Medications Education provided Re: Kaitlin Bond This education was provided to the patient Name of medication: oxycodone The education included the following: Understanding the side effects of their medication Kanchan Arteaga RN NCIAL REPORTING MANAGER * Care Plan - Kanchan Arteaga RN - 03/06/2017 9:24 AM CST Kaitlin Bond is a 66 y.o. female in bed 229/1 who is admitted here for therapy whos treatment is progressing well along their designated pathway. Patient takes tylenol for pain and has had no issues today with pain today Patient is on RA and is eupneic Lungs sounds are clear Patient jovial, pleasant and resting in room without signs and symptoms of issues. Fall risk level: red Patient denies pain/wants/needs/issues with care. Call light and all personal effects, room phone and call light are within reach and visible. Speech is clear and patient is able to make needs known. Patient had no falls this shift and has been educated on fall prevention effectively. Interventions in Place: [] Fall Risk Armband on Patient [x] Call Light within Reach [] Bed Alarm [] Chair Alarm [] Sitter [] Fall Risk Magnet on Door [] Fall Risk Magnet on Schedule Board [] Wrist Coil Handoff in Place [] Low Bed and Mats in Place [x] Room Close to Nurses Station [] Other: Patient Education on Medications Education provided Re: Kaitlin Bond This education was provided to the patient Name of medication: lidocaine patch The education included the following: Understanding the side effects of their medication Kanchan Arteaga RN NCIAL REPORTING MANAGER * Care Plan - Supriya Strong RN - 03/05/2017 10:33 AM CST Patient had no falls this shift and is fall risk level/color yellow Interventions in Place: [x] Fall Risk Armband on Patient [x] Call Light within Reach [x] Bed Alarm [] Chair Alarm [] Sitter [x] Fall Risk Magnet on Door [x] Fall Risk Magnet on Schedule Board [] Wrist Coil Handoff in Place [] Low Bed and Mats in Place [] Room Close to Nurses Station [] Other: NCIAL REPORTING MANAGER * Care Plan - Kae Vega, RN - 03/05/2017 2:02 AM CST Patient had no falls this shift and is fall risk level/color Red Interventions in Place: [x] Fall Risk Armband on Patient [x] Call Light within Reach [x] Bed Alarm [] Chair Alarm [] Sitter [x] Fall Risk Magnet on Door [x] Fall Risk Magnet on Schedule Board [] Wrist Coil Handoff in Place [] Low Bed and Mats in Place [x] Room Close to Nurses Station [] Other: NCIAL REPORTING MANAGER documented in this encounter Plan of Treatment Scheduled Referrals Name Type Priority Associated Diagnoses Order Schedule AMB REFERRAL TO PHYSICAL THERAPY Outpatient Referral Routine Cervical stenosis of spine Cervical myelopathy Fall, subsequent encounter Ordered: 03/14/2017 AMB REFERRAL TO OCCUPATIONAL THERAPY Outpatient Referral Routine Cervical stenosis of spine Cervical myelopathy Fall, subsequent encounter Ordered: 03/14/2017 documented as of this encounter Procedures Procedure Name Priority Date/Time Associated Diagnosis Comments CBC WITH DIFFERENTIAL Routine 03/14/2017 5:30 AM FINANCIAL REPORTING MANAGER OSMOLALITY Routine 03/14/2017 5:30 AM FINANCIAL REPORTING MANAGER BASIC METABOLIC PANEL Routine 03/14/2017 5:30 AM FINANCIAL REPORTING MANAGER CBC WITH DIFFERENTIAL Routine 03/13/2017 6:30 AM FINANCIAL REPORTING MANAGER BASIC METABOLIC PANEL Routine 03/13/2017 6:30 AM FINANCIAL REPORTING MANAGER RAPID STREP SCREEN WITH REFLEX CULTURE Routine 03/12/2017 6:05 AM FINANCIAL REPORTING MANAGER STREPTOCOCCUS GROUP A CULTURE Routine 03/12/2017 6:05 AM FINANCIAL REPORTING MANAGER CBC WITH DIFFERENTIAL Routine 03/11/2017 11:06 AM FINANCIAL REPORTING MANAGER BASIC METABOLIC PANEL Routine 03/11/2017 11:05 AM FINANCIAL REPORTING MANAGER CBC WITH DIFFERENTIAL Routine 03/09/2017 7:30 AM FINANCIAL REPORTING MANAGER BASIC METABOLIC PANEL Routine 03/09/2017 7:30 AM FINANCIAL REPORTING MANAGER CBC WITH DIFFERENTIAL Routine 03/08/2017 7:06 AM FINANCIAL REPORTING MANAGER OSMOLALITY Routine 03/08/2017 7:06 AM FINANCIAL REPORTING MANAGER CORTISOL LEVEL Routine 03/08/2017 7:06 AM FINANCIAL REPORTING MANAGER BASIC METABOLIC PANEL Routine 03/08/2017 7:06 AM FINANCIAL REPORTING MANAGER URINALYSIS WITH REFLEX CULTURE Routine 03/07/2017 1:59 PM FINANCIAL REPORTING MANAGER SODIUM, RANDOM URINE Routine 03/07/2017 1:59 PM FINANCIAL REPORTING MANAGER OSMOLALITY, URINE Routine 03/07/2017 1:5 9 PM FINANCIAL REPORTING MANAGER URINE CULTURE Routine 03/07/2017 1:59 PM FINANCIAL REPORTING MANAGER CBC WITH DIFFERENTIAL Routine 03/07/2017 7:40 AM FINANCIAL REPORTING MANAGER OSMOLALITY Routine 03/07/2017 7:40 AM FINANCIAL REPORTING MANAGER BASIC METABOLIC PANEL Routine 03/07/2017 7:40 AM FINANCIAL REPORTING MANAGER RT ASSESS AND TREAT Routine 03/06/2017 1 :06 PM FINANCIAL REPORTING MANAGER CBC WITH DIFFERENTIAL Routine 03/06/2017 6:05 AM FINANCIAL REPORTING MANAGER BASIC METABOLIC PANEL Routine 03/06/2017 6:05 AM FINANCIAL REPORTING MANAGER CBC WITH DIFFERENTIAL Routine 03/04/2017 6:00 AM CDT COMPREHENSIVE METABOLIC PANEL Routine 03/04/2017 6:00 AM CDT URINALYSIS WITH REFLEX CULTURE Routine 03/03/2017 10:08 PM CDT documented in this encounter Results * (ABNORMAL) OSMOLALITY (03/14/2017 5:30 AM FINANCIAL REPORTING MANAGER) OSMOLALITY 272(L) 275 - 300 mOsm/kg 03/14/2017 7:25 AM [facility] [employer] SERVICES [facility] Blood Venipuncture / Unknown 03/14/2017 5:30 AM FINANCIAL REPORTING MANAGER 03/14/2017 6:54 AM FINANCIAL REPORTING MANAGER Carson Elias MD CHEMISTRY ORDERABLES [employer] SERVICES [facility]# [id number] [address] [place] [address] * (ABNORMAL) CBC WITH DIFFERENTIAL (03/14/2017 5:30 AM FINANCIAL REPORTING MANAGER) Pathologist [facility] WBC 6.8 4.0 - 9.8 K/uL 03/14/2017 7:08 AM [facility] [employer] SERVICES [facility] RBC 4.04 3.90 - 4.90 M/uL 03/14/2017 7:08 AM [facility] [employer] SERVICES - [facility] HEMOGLOBIN 12.0 11.8 - 14.8 g/dL 03/14/2017 7:08 AM [facility] [employer] SERVICES [facility] HEMATOCRIT 35.9 35.5 - 44.0 % 03/14/2017 7:08 AM [facility] [employer] SERVICES - [facility] MCV 88.9 82.0 - 99.0 fL 03/14/2017 7:08 AM [facility] [employer] SERVICES - [facility] MCH 29.7 27.2 - 32.6 pg 03/14/2017 7:08 AM [employer] - [facility] MCHC 33.4 31.5 - 35.5 g/dL 03/14/2017 7:08 AM [facility] [employer] - . [facility] RDW 13.0 11.5 - 14.5 % 03/14/2017 7:08 AM [facility] [employer] - [facility] RDW-STDEV 42.5 37.1 - 48.7 fL 03/14/2017 7:08 AM [employer] - [facility] PLATELETS 413(H) 140 - 350 K/uL 03/14/2017 7:08 AM [facility] [employer] SERVICES - [facility] MPV 9.8 9.3 - 12.4 fL 03/14/2017 7:08 AM [facility] [employer] SERVICES - [facility] NEUTROPHILS 62 % 03/14/2017 7:08 AM [facility] [employer] SERVICES - [facility] LYMPHOCYTES 30 % 03/14/2017 7:08 AM FINANCIAL REPORTING MANAGER [employer] LABORATORY SERVICES - [facility] MONOCYTES 7 % 03/14/2017 7:08 AM [facility] [employer] SERVICES - [facility] EOSINOPHILS 1 % 03/14/2017 7:08 AM FINANCIAL REPORTING MANAGER [employer] SERVICES - [facility] BASOPHILS 0 % 03/14/2017 7:08 AM FINANCIAL REPORTING MANAGER [employer] - [facility] IMMATURE GRANULOCYTES 0 % 03/14/2017 7:08 AM [facility] [employer] - [facility] NEUTROPHIL ABSOLUTE 4.24 1.90 - 7.00 K/uL 03/14/2017 7:08 AM [facility] [employer] - [facility] LYMPHOCYTE ABSOLUTE 2.01 0.70 - 4.50 K/uL 03/14/2017 7:08 AM [facility] [employer] SERVICES - [facility] MONOCYTE ABSOLUTE 0.46 0.10 - 1.30 K/uL 03/14/2017 7:08 AM FINANCIAL REPORTING MANAGER [employer] - [facility] EOSINOPHIL ABSOLUTE 0.07 0.00 - 0.70 K/uL 03/14/2017 7:08 AM [employer] - [facility] BASOPHILS ABSOLUTE 0.02 0.00 - 0.20 K/uL 03/14/2017 7:08 AM [employer] - [facility] IMMATURE GRANULOCYTES ABSOLUTE 0.02 0.00 - 0.03 K/uL 03/14/2017 7:08 AM [employer] - [facility] Blood Venipuncture / Unknown 03/14/2017 5:30 AM FINANCIAL REPORTING MANAGER 03/14/2017 6:52 AM FINANCIAL REPORTING MANAGER Carson Elias MD HEMATOLOGY ORDERABLE S [employer] - [facility] CLIA# [id number] [address] [place] [address] * (ABNORMAL) BASIC METABOLIC PANEL (03/14/2017 5:30 AM FINANCIAL REPORTING MANAGER) SODIUM 130(L) 136 - 145 mmol/L 03/14/2017 7:33 AM [facility] [employer] LABORATORY SERVICES - [facility] POTASSIUM 4.7 3.5 - 5.0 mmol/L 03/14/2017 7:33 AM [facility] [employer] LABORATORY SERVICES - [facility] CHLORIDE 94(L) 98 - 107 mmol/L 03/14/2017 7:33 AM [facility] [employer] LABORATORY SERVICES - [facility] CO2 26 22 - 29 mmol/L 03/14/2017 7:33 AM FINANCIAL REPORTING MANAGER [employer] LABORATORY SERVICES - . [facility] CALCIUM 8.9 8.6 - 10.2 mg/dL 03/14/2017 7:33 AM FINANCIAL REPORTING MANAGER [employer] LABORATORY SERVICES - [facility] BUN 12 8 - 23 mg/dL 03/14/2017 7:33 AM [facility] [employer] LABORATORY SERVICES - . [facility] CREATININE 0.68 0.51 - 0.95 mg/dL 03/14/2017 7:33 AM FINANCIAL REPORTING MANAGER [employer] LABORATORY SERVICES - [facility] GLUCOSE 81 74 - 99 mg/dL 03/14/2017 7:33 AM FINANCIAL REPORTING MANAGER [employer] LABORATORY SERVICES - [facility] GFR >60 >=60 mL/min/1.7 3 sq meter 03/14/2017 7:33 AM [facility] [employer] LABORATORY SERVICES - [facility] Comment: eGFR has not been validated for [...] GFR, >60 >=60 mL/min/1.7 3 sq meter 03/14/2017 7:33 AM FINANCIAL REPORTING MANAGER [employer] LABORATORY SERVICES - [facility] ANION GAP 10 8 - 16 mmol/L 03/14/2017 7:33 AM FINANCIAL REPORTING MANAGER [employer] LABORATORY SERVICES [facility] Blood Venipuncture / Unknown 03/14/2017 5:30 AM FINANCIAL REPORTING MANAGER 03/14/2017 6:54 AM FINANCIAL REPORTING MANAGER Carson Elias MD CHEMISTRY ORDERABLES [facility] LABORATORY SERVICES - [facility] CLIA# [id number] [address] [place] [address] * (ABNORMAL) CBC WITH DIFFERENTIAL (03/13/2017 6:30 AM FINANCIAL REPORTING MANAGER) WBC 7.6 4.0 - 9.8 K/uL 03/13/2017 8:41 AM FINANCIAL REPORTING MANAGER [employer] LABORATORY SERVICES - [facility] RBC 4.41 3.90 - 4.90 M/uL 03/13/2017 8:41 AM [facility] [employer] LABORATORY SERVICES - [facility] HEMOGLOBIN 13.1 11.8 - 14.8 g/dL 03/13/2017 8:41 AM FINANCIAL REPORTING MANAGER [employer] LABORATORY SERVICES - [facility] HEMATOCRIT 38.8 35.5 - 44.0 % 03/13/2017 8:41 AM FINANCIAL REPORTING MANAGER [employer] LABORATORY SERVICES - [facility] MCV 88.0 82.0 - 99.0 fL 03/13/2017 8:41 AM FINANCIAL REPORTING MANAGER [employer] LABORATORY SERVICES - [facility] MCH 29.7 27.2 - 32.6 pg 03/13/2017 8:41 AM FINANCIAL REPORTING MANAGER [employer] LABORATORY SERVICES - [facility] MCHC 33.8 31.5 - 35.5 g/dL 03/13/2017 8:41 AM [employer] LABORATORY SERVICES - [facility] RDW 12.8 11.5 - 14.5 % 03/13/2017 8:41 AM FINANCIAL REPORTING MANAGER [employer] LABORATORY SERVICES - [facility] RDW-STDEV 41.5 37.1 - 48.7 fL 03/13/2017 8:41 AM FINANCIAL REPORTING MANAGER [employer] LABORATORY SERVICES - [facility] PLATELETS 509(H) 140 - 350 K/uL 03/13/2017 8:41 AM [employer] LABORATORY SERVICES - [facility] MPV 9.7 9.3 - 12.4 fL 03/13/2017 8:41 AM [employer] LABORATORY SERVICES - [facility] NEUTROPHILS 68 % 03/13/2017 8:41 AM [employer] LABORATORY SERVICES - [facility] LYMPHOCYTES 24 % 03/13/2017 8:41 AM [employer] LABORATORY SERVICES - [facility] MONOCYTES 7 % 03/13/2017 8:41 AM [facility] [employer] LABORATORY SERVICES - [facility] EOSINOPHILS 1 % 03/13/2017 8:41 AM [facility] [employer] LABORATORY SERVICES - [facility] BASOPHILS 0 % 03/13/2017 8:41 AM [facility] [employer] LABORATORY SERVICES - [facility] IMMATURE GRANULOCYTES 0 % 03/13/2017 8:41 AM [facility] [employer] LABORATORY SERVICES - [facility] NEUTROPHIL ABSOLUTE 5.19 1.90 - 7.00 K/uL 03/13/2017 8:41 AM [facility] [employer] LABORATORY SERVICES - [facility] LYMPHOCYTE ABSOLUTE 1.81 0.70 - 4.50 K/uL 03/13/2017 8:41 AM [facility] [employer] LABORATORY SERVICES - [facility] MONOCYTE ABSOLUTE 0.53 0.10 - 1.30 K/uL 03/13/2017 8:41 AM [facility] [employer] LABORATORY SERVICES - [facility] EOSINOPHIL ABSOLUTE 0.05 0.00 - 0.70 K/uL 03/13/2017 8:41 AM [facility] [employer] LABORATORY SERVICES - [facility] BASOPHILS ABSOLUTE 0.01 0.00 - 0.20 K/uL 03/13/2017 8:41 AM [facility] [employer] LABORATORY SERVICES - [facility] IMMATURE GRANULOCYTES ABSOLUTE 0.01 0.00 - 0.03 K/uL 03/13/2017 8:41 AM [facility] [employer] LABORATORY [employer] - [facility] Blood Venipuncture / Unknown 03/13/2017 6:30 AM FINANCIAL REPORTING MANAGER 03/13/2017 8:25 AM FINANCIAL REPORTING MANAGER Carson Elias MD HEMATOLOGY ORDERABLE S [employer] SERVICES - [facility] CLIA# [id number] [address] [facility] [place] [address] * (ABNORMAL) BASIC METABOLIC PANEL (03/13/2017 6:30 AM FINANCIAL REPORTING MANAGER) SODIUM 131(L) 136 - 145 mmol/L 03/13/2017 9:03 AM [facility] [employer] - [facility] POTASSIUM 4.1 3.5 - 5.0 mmol/L 03/13/2017 9:03 AM [facility] [employer] SERVICES - [facility] CHLORIDE 91(L) 98 - 107 mmol/L 03/13/2017 9:03 AM [facility] [employer] [facility] - . [place] CO2 26 22 - 29 mmol/L 03/13/2017 9:03 AM [facility] LABORATORY [facility] - [facility] CALCIUM 9.4 8.6 - 10.2 mg/dL 03/13/2017 9:03 AM [facility] LABORATORY [facility] - . [place] BUN 9 8 - 23 mg/dL 03/13/2017 9:03 AM [facility] [employer] [facility] - . [place] CREATININE 0.65 0.51 - 0.95 mg/dL 03/13/2017 9:03 AM [facility] [employer] [facility] - . [place] GLUCOSE 94 74 - 99 mg/dL 03/13/2017 9:03 AM [facility] [employer] [facility] - . [facility] GFR >60 >=60 mL/min/1.7 3 sq meter 03/13/2017 9:03 AM [facility] [employer] [facility] Comment: eGFR has not been validated [...] GFR, >60 >=60 mL/min/1.7 3 sq meter 03/13/2017 9:03 AM [facility] [employer] [facility] ANION GAP 14 8 - 16 mmol/L 03/13/2017 9:03 AM [facility] [employer] [facility] Blood Venipuncture / Unknown 03/13/2017 6:30 AM FINANCIAL REPORTING MANAGER 03/13/2017 8:25 AM FINANCIAL REPORTING MANAGER Carson Elias MD CHEMISTRY ORDERABLES [facility] [employer] [facility]# [id number] [address] [place] [address] * STREPTOCOCCUS GROUP A CULTURE (03/12/2017 6:05 AM FINANCIAL REPORTING MANAGER) CULTURE No Streptococcus Group A, C, or G isolated 03/14/2017 7:51 AM FINANCIAL REPORTING MANAGER [facility] Upper respiratory specimen (specimen) SPECIMEN FROM THROAT / Unknown Collection / Unknown 03/12/2017 6:05 AM FINANCIAL REPORTING MANAGER 03/12/2017 9:35 AM FINANCIAL REPORTING MANAGER Carson Elias MD MICROBIOLOGY - GENER AL ORDERABLES Performing Organization Address City/[facility] [address]/[facility] Co de Phone Number [facility] CLIA# [id number] [address] [place] [address] * RAPID STREP SCREEN WITH REFLEX CULTURE (03/12/2017 6:05 AM FINANCIAL REPORTING MANAGER) [facility] RAPID STREP Negative Negative 03/12/2017 9:35 AM FINANCIAL REPORTING MANAGER [facility] [employer] [facility] Comment: Culture set up on negative strep screen. ?? Upper respiratory specimen (specimen) SPECIMEN FROM THROAT / Unknown Collection / Unknown 03/12/2017 6:05 AM FINANCIAL REPORTING MANAGER 03/12/2017 7:22 AM FINANCIAL REPORTING MANAGER Carson Elias MD MICROBIOLOGY - GENER AL ORDERABLES Performing Organization Address City/[facility] [address]/[facility] Co de Phone Number [facility] CLIA# [id number] [address] [place] [address] * (ABNORMAL) CBC WITH DIFFERENTIAL (03/11/2017 11:06 AM FINANCIAL REPORTING MANAGER) Pathologist [facility] WBC 6.3 4.0 - 9.8 K/uL 03/11/2017 11:25 AM FINANCIAL REPORTING MANAGER [facility] LABORATORY [facility] RBC 4.15 3.90 - 4.90 M/uL 03/11/2017 11:25 AM [facility] LABORATORY [facility] HEMOGLOBIN 12.4 11.8 - 14.8 g/dL 03/11/2017 11:25 AM [facility] LABORATORY [facility] HEMATOCRIT 36.9 35.5 - 44.0 % 03/11/2017 11:25 AM [facility] LABORATORY [facility] MCV 88.9 82.0 - 99.0 fL 03/11/2017 11:25 AM [employer] LABORATORY SERVICES - [facility] MCH 29.9 27.2 - 32.6 pg 03/11/2017 11:25 AM FINANCIAL REPORTING MANAGER [employer] LABORATORY SERVICES - [facility] MCHC 33.6 31.5 - 35.5 g/dL 03/11/2017 11:25 AM FINANCIAL REPORTING MANAGER [employer] LABORATORY SERVICES - [facility] RDW 12.7 11.5 - 14.5 % 03/11/2017 11:25 AM FINANCIAL REPORTING MANAGER [employer] LABORATORY SERVICES - [facility] RDW-STDEV 41.9 37.1 - 48.7 fL 03/11/2017 11:25 AM FINANCIAL REPORTING MANAGER [employer] LABORATORY SERVICES - [facility] PLATELETS 472(H) 140 - 350 K/uL 03/11/2017 11:25 AM FINANCIAL REPORTING MANAGER [employer] LABORATORY SERVICES - [facility] MPV 9.8 9.3 - 12.4 fL 03/11/2017 11:25 AM [employer] LABORATORY SERVICES - [facility] NEUTROPHILS 67 % 03/11/2017 11:25 AM [employer] LABORATORY SERVICES - [facility] LYMPHOCYTES 25 % 03/11/2017 11:25 AM [employer] LABORATORY SERVICES - [facility] MONOCYTES 8 % 03/11/2017 11:25 AM FINANCIAL REPORTING MANAGER [employer] LABORATORY SERVICES - [facility] EOSINOPHILS 1 % 03/11/2017 11:25 AM [employer] LABORATORY SERVICES - [facility] BASOPHILS 0 % 03/11/2017 11:25 AM [employer] LABORATORY SERVICES - [facility] IMMATURE GRANULOCYTES 0 % 03/11/2017 11:25 AM [employer] LABORATORY SERVICES - [facility] NEUTROPHIL ABSOLUTE 4.21 1.90 - 7.00 K/uL 03/11/2017 11:25 AM [employer] LABORATORY SERVICES - [facility] LYMPHOCYTE ABSOLUTE 1.55 0.70 - 4.50 K/uL 03/11/2017 11:25 AM FINANCIAL REPORTING MANAGER [employer] LABORATORY SERVICES - [facility] MONOCYTE ABSOLUTE 0.50 0.10 - 1.30 K/uL 03/11/2017 11:25 AM FINANCIAL REPORTING MANAGER [employer] LABORATORY SERVICES - [facility] EOSINOPHIL ABSOLUTE 0.03 0.00 - 0.70 K/uL 03/11/2017 11:25 AM FINANCIAL REPORTING MANAGER [employer] LABORATORY SERVICES - [facility] BASOPHILS ABSOLUTE 0.02 0.00 - 0.20 K/uL 03/11/2017 11:25 AM FINANCIAL REPORTING MANAGER [employer] LABORATORY SERVICES - [facility] IMMATURE GRANULOCYTES ABSOLUTE 0.02 0.00 - 0.03 K/uL 03/11/2017 11:25 AM [facility] [employer] LABORATORY SERVICES - [facility] Blood Venipuncture / Unknown 03/11/2017 11:06 AM FINANCIAL REPORTING MANAGER 03/11/2017 11:06 AM FINANCIAL REPORTING MANAGER Carson Elias MD HEMATOLOGY ORDERABLE S [facility] [employer] SERVICES [facility] CLIA# [id number] 5 [facility] [address] [address] * (ABNORMAL) BASIC METABOLIC PANEL (03/11/2017 11:05 AM FINANCIAL REPORTING MANAGER) SODIUM 133(L) 136 - 145 mmol/L 03/11/2017 11:46 AM [facility] [employer] LABORATORY SERVICES - [facility] POTASSIUM 4.1 3.5 - 5.0 mmol/L 03/11/2017 11:46 AM [facility] [employer] - [facility] CHLORIDE 95(L) 98 - 107 mmol/L 03/11/2017 11:46 AM [facility] [employer] [facility] - [facility] CO2 25 22 - 29 mmol/L 03/11/2017 11:46 AM [facility] [employer] LABORATORY SERVICES - [facility] CALCIUM 9.4 8.6 - 10.2 mg/dL 03/11/2017 11:46 AM [facility] [employer] [facility] - [facility] BUN 7(L) 8 - 23 mg/dL 03/11/2017 11:46 AM [facility] [employer] [facility] - [facility] CREATININE 0.59 0.51 - 0.95 mg/dL 03/11/2017 11:46 AM [facility] [employer] [facility] - [facility] GLUCOSE 111(H) 74 - 99 mg/dL 03/11/2017 11:46 AM [employer] LABORATORY SERVICES - [facility] GFR >60 >=60 mL/min/1.7 3 sq meter 03/11/2017 11:46 AM [employer] SERVICES - [facility] Comment: eGFR has not been validated for [...] GFR, >60 >=60 mL/min/1.7 3 sq meter 03/11/2017 11:46 AM [facility] [employer] LABORATORY [facility] ANION GAP 13 8 - 16 mmol/L 03/11/2017 11:46 AM [facility] [employer] [facility] Blood Venipuncture / Unknown 03/11/2017 11:05 AM FINANCIAL REPORTING MANAGER 03/11/2017 11:06 AM FINANCIAL REPORTING MANAGER Carson Elias MD CHEMISTRY ORDERABLES [email or web address] [facility] CLIA# [id number] [address] [facility] [place] [address] * (ABNORMAL) CBC WITH DIFFERENTIAL (03/09/2017 7:30 AM FINANCIAL REPORTING MANAGER) WBC 7.6 4.0 - 9.8 K/uL 03/09/2017 10:21 AM [facility] [employer] [facility] RBC 4.43 3.90 - 4.90 M/uL 03/09/2017 10:21 AM [facility] [employer] [facility] HEMOGLOBIN 13.3 11.8 - 14.8 g/dL 03/09/2017 10:21 AM [facility] [employer] [facility] HEMATOCRIT 39.1 35.5 - 44.0 % 03/09/2017 10:21 AM FINANCIAL REPORTING MANAGER [employer] [facility] MCV 88.3 82.0 - 99.0 fL 03/09/2017 10:21 AM [facility] [employer] - [facility] MCH 30.0 27.2 - 32.6 pg 03/09/2017 10:21 AM [facility] [employer] [facility] MCHC 34.0 31.5 - 35.5 g/dL 03/09/2017 10:21 AM FINANCIAL REPORTING MANAGER [employer] [facility] RDW 12.6 11.5 - 14.5 % 03/09/2017 10:21 AM [employer] - . [facility] RDW-STDEV 41.2 37.1 - 48.7 fL 03/09/2017 10:21 AM [facility] [employer] [facility] - . [place] PLATELETS 547(H) 140 - 350 K/uL 03/09/2017 10:21 AM [facility] [employer] [facility] - . [place] MPV 9.8 9.3 - 12.4 fL 03/09/2017 10:21 AM [facility] [employer] [facility] NEUTROPHILS 69 % 03/09/2017 10:21 AM [facility] [employer] [facility] LYMPHOCYTES 21 % 03/09/2017 10:21 AM [facility] [employer] [facility] MONOCYTES 8 % 03/09/2017 10:21 AM [facility] EOSINOPHILS 1 % 03/09/2017 10:21 AM [facility] [employer] [facility] BASOPHILS 0 % 03/09/2017 10:21 AM [facility] [employer] [facility] IMMATURE GRANULOCYTES 1 % 03/09/2017 10:21 AM [facility] [employer] [facility] Comment:IG (Immature Granulo cyte) count includes Metamyelocytes, Myelocytes, and Promyelocytes NEUTROPHIL ABSOLUTE 5.25 1.90 - 7.00 K/uL 03/09/2017 10:21 AM [facility] [employer] [facility] LYMPHOCYTE ABSOLUTE 1.62 0.70 - 4.50 K/uL 03/09/2017 10:21 AM [facility] [employer] [facility] MONOCYTE ABSOLUTE 0.59 0.10 - 1.30 K/uL 03/09/2017 10:21 AM [facility] [employer] [facility] EOSINOPHIL ABSOLUTE 0.04 0.00 - 0.70 K/uL 03/09/2017 10:21 AM [facility] BASOPHILS ABSOLUTE 0.02 0.00 - 0.20 K/uL 03/09/2017 10:21 AM [facility] [employer] [facility] IMMATURE GRANULOCYTES ABSOLUTE 0.05(H) 0.00 - 0.03 K/uL 03/09/2017 10:21 AM [facility] [employer] [facility] [place] Blood Venipuncture / Unknown 03/09/2017 7:30 AM FINANCIAL REPORTING MANAGER 03/09/2017 9:53 AM FINANCIAL REPORTING MANAGER Carson Elias MD HEMATOLOGY ORDERABLE S [employer] LABORATORY SERVICES - [facility]# [id number] [address] [place] [address] * (ABNORMAL) BASIC METABOLIC PANEL (03/09/2017 7:30 AM FINANCIAL REPORTING MANAGER) SODIUM 131(L) 136 - 145 mmol/L 03/09/2017 10:52 AM [facility] [employer] LABORATORY SERVICES - . [place] POTASSIUM 4.7 3.5 - 5.0 mmol/L 03/09/2017 10:52 AM [facility] [employer] LABORATORY SERVICES - . [place] CHLORIDE 92(L) 98 - 107 mmol/L 03/09/2017 10:52 AM [facility] [employer] SERVICES - . [place] CO2 24 22 - 29 mmol/L 03/09/2017 10:52 AM [facility] [employer] SERVICES - . [place] CALCIUM 9.6 8.6 - 10.2 mg/dL 03/09/2017 10:52 AM [facility] [employer] [facility] BUN 9 8 - 23 mg/dL 03/09/2017 10:52 AM [facility] [employer] [facility] . [facility] CREATININE 0.59 0.51 - 0.95 mg/dL 03/09/2017 10:52 AM [facility] [employer] [facility] . [facility] GLUCOSE 101(H) 74 - 99 mg/dL 03/09/2017 10:52 AM [facility] [employer] SERVICES - [facility] GFR >60 >=60 mL/min/1.7 3 sq meter 03/09/2017 10:52 AM FINANCIAL REPORTING MANAGER [employer] LABORATORY SERVICES - [facility] Comment: eGFR has not been validated for [...] GFR, >60 >=60 mL/min/1.7 3 sq meter 03/09/2017 10:52 AM [facility] [employer] [facility] ANION GAP 15 8 - 16 mmol/L 03/09/2017 10:52 AM [facility] [employer] [facility] Blood Venipuncture / Unknown 03/09/2017 7:30 AM FINANCIAL REPORTING MANAGER 03/09/2017 9:53 AM FINANCIAL REPORTING MANAGER Carson Elias MD CHEMISTRY ORDERABLES Performing Organization Address [facility] [address]/[facility] Phone Number [facility]# [id number] [address] [place] [address] * CORTISOL LEVEL (03/08/2017 7:06 AM FINANCIAL REPORTING MANAGER) CORTISOL LEVEL 18.1 ug/dL 03/08/2017 10:49 AM [facility] [employer] [facility] Comment: Cortisol Reference Range Morning Hours ?? 6-10 a.m. ? 6.0-18.4 ug/dL Afternoon Hours ??4-8 p.m. ? 2.7-10.5 ug/dL Blood Venipuncture / Unknown 03/08/2017 7:06 AM FINANCIAL REPORTING MANAGER 03/08/2017 9:45 AM FINANCIAL REPORTING MANAGER Carson Elias MD CHEMISTRY ORDERABLES Performing Organization Address [facility] [address]/[facility] Phone Number [facility] [employer] [facility]# [id number] [address] [place] [address] * (ABNORMAL) CBC WITH DIFFERENTIAL (03/08/2017 7:06 AM FINANCIAL REPORTING MANAGER) WBC 7.2 4.0 - 9.8 K/uL 03/08/2017 10:01 AM [facility] [employer] [facility] RBC 4.14 3.90 - 4.90 M/uL 03/08/2017 10:01 AM [facility] [employer] [facility] HEMOGLOBIN 12.4 11.8 - 14.8 g/dL 03/08/2017 10:01 AM [facility] [employer] [facility] HEMATOCRIT 36.2 35.5 - 44.0 % 03/08/2017 10:01 AM [employer] [facility] - [facility] MCV 87.4 82.0 - 99.0 fL 03/08/2017 10:01 AM [employer] [facility] - [facility] MCH 30.0 27.2 - 32.6 pg 03/08/2017 10:01 AM [facility] [facility] - [facility] MCHC 34.3 31.5 - 35.5 g/dL 03/08/2017 10:01 AM [facility] [facility] - [facility] RDW 12.4 11.5 - 14.5 % 03/08/2017 10:01 AM [facility] - [facility] RDW-STDEV 39.7 37.1 - 48.7 fL 03/08/2017 10:01 AM [facility] [facility] - [facility] PLATELETS 479(H) 140 - 350 K/uL 03/08/2017 10:01 AM [facility] [facility] - [facility] MPV 9.8 9.3 - 12.4 fL 03/08/2017 10:01 AM [facility] [facility] - [facility] NEUTROPHILS 69 % 03/08/2017 10:01 AM [facility] LYMPHOCYTES 22 % 03/08/2017 10:01 AM [facility] MONOCYTES 8 % 03/08/2017 10:01 AM [facility] [facility] EOSINOPHILS 1 % 03/08/2017 10:01 AM [facility] [facility] BASOPHILS 0 % 03/08/2017 10:01 AM [facility] IMMATURE GRANULOCYTES 0 % 03/08/2017 10:01 AM [facility] - [facility] NEUTROPHIL ABSOLUTE 4.99 1.90 - 7.00 K/uL 03/08/2017 10:01 AM [facility] [facility] - [facility] LYMPHOCYTE ABSOLUTE 1.56 0.70 - 4.50 K/uL 03/08/2017 10:01 AM [facility] [facility] - [facility] MONOCYTE ABSOLUTE 0.61 0.10 - 1.30 K/uL 03/08/2017 10:01 AM [facility] [facility] - [facility] EOSINOPHIL ABSOLUTE 0.04 0.00 - 0.70 K/uL 03/08/2017 10:01 AM [facility] [facility] - [facility] BASOPHILS ABSOLUTE 0.01 0.00 - 0.20 K/uL 03/08/2017 10:01 AM [facility] LABORATORY SERVICES - . [facility] IMMATURE GRANULOCYTES ABSOLUTE 0.02 0.00 - 0.03 K/uL 03/08/2017 10:01 AM [facility] LABORATORY SERVICES - [facility] Blood Venipuncture / Unknown 03/08/2017 7:06 AM FINANCIAL REPORTING MANAGER 03/08/2017 9:45 AM FINANCIAL REPORTING MANAGER Carson Elias MD HEMATOLOGY ORDERABLE S Performing Organization Address [facility] [address]/ZIP Co de Phone Number [facility] CLIA# [id number] [address] [place] [address] * (ABNORMAL) OSMOLALITY (03/08/2017 7:06 AM FINANCIAL REPORTING MANAGER) OSMOLALITY 268(L) 275 - 300 mOsm/kg 03/08/2017 10:56 AM [facility] [employer] LABORATORY [facility] Blood Venipuncture / Unknown 03/08/2017 7:06 AM FINANCIAL REPORTING MANAGER 03/08/2017 9:45 AM FINANCIAL REPORTING MANAGER Carson Elias MD CHEMISTRY ORDERABLES Performing Organization Address [facility] [address]/[facility] Co de Phone Number [facility] [employer] [facility] CLIA# [id number] [address] [place] [address] * (ABNORMAL) BASIC METABOLIC PANEL (03/08/2017 7:06 AM FINANCIAL REPORTING MANAGER) SODIUM 131(L) 136 - 145 mmol/L 03/08/2017 10:45 AM [facility] [employer] LABORATORY SERVICES - . [place] POTASSIUM 3.9 3.5 - 5.0 mmol/L 03/08/2017 10:45 AM [facility] [employer] LABORATORY SERVICES - [facility] CHLORIDE 91(L) 98 - 107 mmol/L 03/08/2017 10:45 AM [facility] [employer] LABORATORY SERVICES - . [place] CO2 26 22 - 29 mmol/L 03/08/2017 10:45 AM [facility] LABORATORY SERVICES - . [place] CALCIUM 9.0 8.6 - 10.2 mg/dL 03/08/2017 10:45 AM [facility] [employer] [facility] BUN 8 8 - 23 mg/dL 03/08/2017 10:45 AM [facility] [employer] [facility] CREATININE 0.65 0.51 - 0.95 mg/dL 03/08/2017 10:45 AM [facility] [employer] [facility] GLUCOSE 85 74 - 99 mg/dL 03/08/2017 10:45 AM [facility] LABORATORY [facility] GFR >60 >=60 mL/min/1.7 3 sq meter 03/08/2017 10:45 AM [facility] [employer] [facility] Comment: eGFR has not been validated [...] GFR, >60 >=60 mL/min/1.7 3 sq meter 03/08/2017 10:45 AM [facility] [employer] [facility] ANION GAP 14 8 - 16 mmol/L 03/08/2017 10:45 AM [facility] [employer] [facility] Blood Venipuncture / Unknown 03/08/2017 7:06 AM FINANCIAL REPORTING MANAGER 03/08/2017 9:45 AM FINANCIAL REPORTING MANAGER Yasmin Vieyra DO CHEMISTRY ORDERABLES [facility] [employer] [facility]# [id number] [address] [facility] [address] * (ABNORMAL) URINE CULTURE (03/07/2017 1:59 PM FINANCIAL REPORTING MANAGER) CULTURE 03/09/2017 5:40 AM [facility] [employer] [facility] CULTURE 10,000-50,00 0 cfu/mL Gram Negative Rods(A) MELANIE MCG/ML 03/09/2017 5:[address] [facility] Comment:No further workup in dicated. CULTURE 10,000-50,00 0 cfu/mL Gram Negative Rods(A) 03/09/2017 5:[address] [facility] Comment:No further workup in dicated. Urine URINE SPECIMEN OBTAINED BY CLEAN CATCH PROCEDURE / Unknown Collection / Unknown 03/07/2017 1:59 PM FINANCIAL REPORTING MANAGER 03/07/2017 5:38 PM FINANCIAL REPORTING MANAGER Carson Elias MD MICROBIOLOGY - [facility] AL ORDERABLES [facility] CLIA# [id number] [address] [place] [address] * SODIUM, RANDOM URINE (03/07/2017 1:59 PM FINANCIAL REPORTING MANAGER) SODIUM, URINE 35 mmol/L 03/07/2017 6:12 PM FINANCIAL REPORTING MANAGER [facility] Urine URINE SPECIMEN OBTAINED BY CLEAN CATCH PROCEDURE / Unknown Collection / Unknown 03/07/2017 1:59 PM FINANCIAL REPORTING MANAGER 03/07/2017 3:43 PM FINANCIAL REPORTING MANAGER Carson Elias MD URINE ORDERABLES Performing Organization Address [facility] [address]/[facility] Co de Phone Number [facility] CLAK# [id number] [address] [place] [address] * OSMOLALITY, URINE (03/07/2017 1:59 PM FINANCIAL REPORTING MANAGER) OSMOLALITY, URINE 416 50 - 1,200 mOsm/kg 03/07/2017 5:58 PM FINANCIAL REPORTING MANAGER [facility] Urine URINE SPECIMEN OBTAINED BY CLEAN CATCH PROCEDURE / Unknown Collection / Unknown 03/07/2017 1:59 PM FINANCIAL REPORTING MANAGER 03/07/2017 3:43 PM FINANCIAL REPORTING MANAGER Carson Elias MD URINE ORDERABLES Performing Organization Address City/[facility] [address]/ZIP Co de Phone Number [facility] CLIA# [id number] [address] [facility] [address] [address] * (ABNORMAL) URINALYSIS WITH REFLEX CULTURE (03/07/2017 1:59 PM FINANCIAL REPORTING MANAGER) COLOR UA Yellow Pale to Dark Yellow 03/07/2017 5:38 PM [facility] [employer] LABORATORY SERVICES - [facility] CLARITY UA Slightly Cloudy(A) Clear 03/07/2017 5:38 PM FINANCIAL REPORTING MANAGER [employer] LABORATORY SERVICES - [facility] SPECIFIC GRAVITY UA 1.015 1.003 - 1.035 03/07/2017 5:38 PM FINANCIAL REPORTING MANAGER [employer] LABORATORY SERVICES - [facility] PH UA 5.0 5.0 - 8.0 03/07/2017 5:38 PM FINANCIAL REPORTING MANAGER [employer] LABORATORY SERVICES - [facility] LEUKOCYTE ESTERASE UA Trace(A) Negative 03/07/2017 5:38 PM [facility] [employer] LABORATORY SERVICES - [facility] Comment: For patients with 'trace' results, consider ordering a culture and sensitivity if clinically indicated. NITRITE UA Negative Negative 03/07/2017 5:38 PM FINANCIAL REPORTING MANAGER [employer] LABORATORY SERVICES - [facility] PROTEIN UA 1+(A) Negative 03/07/2017 5:38 PM FINANCIAL REPORTING MANAGER [employer] LABORATORY SERVICES - [facility] GLUCOSE UA Negative Negative 03/07/2017 5:38 PM FINANCIAL REPORTING MANAGER [employer] LABORATORY SERVICES - [facility] KETONES UA Trace(A) Negative 03/07/2017 5:38 PM [facility] [employer] LABORATORY SERVICES - [facility] UROBILINOGEN UA Normal <2.0 mg/dL 7 5:38 PM FINANCIAL REPORTING MANAGER [employer] LABORATORY SERVICES - [facility] BILIRUBIN UA Negative Negative 03/07/2017 5:38 PM FINANCIAL REPORTING MANAGER [employer] LABORATORY SERVICES - [facility] BLOOD UA Negative Negative 03/07/2017 5:38 PM FINANCIAL REPORTING MANAGER [employer] LABORATORY SERVICES - [facility] WBC UA 11-25(A) 0 - 2 /hpf 03/07/2017 5:38 PM FINANCIAL REPORTING MANAGER [employer] LABORATORY SERVICES - . [facility] RBC UA 0-2 0 - 2 /hpf 03/07/2017 5:38 PM FINANCIAL REPORTING MANAGER [employer] LABORATORY SERVICES - [facility] BACTERIA UA 1+(A) Negative /hpf 03/07/2017 5:38 PM FINANCIAL REPORTING MANAGER [employer] LABORATORY SERVICES - [facility] EPITHELIAL CELLS, URINE 11-25(A) 0 - 5 /hpf 03/07/2017 5:38 PM FINANCIAL REPORTING MANAGER [employer] LABORATORY SERVICES - [facility] HYALINE CAST 6-10(A) None Seen, 0-2 /lpf 03/07/2017 5:38 PM FINANCIAL REPORTING MANAGER [facility] Urine URINE SPECIMEN OBTAINED BY CLEAN CATCH PROCEDURE / Unknown Collection / Unknown 03/07/2017 1:59 PM FINANCIAL REPORTING MANAGER 03/07/2017 3:43 PM FINANCIAL REPORTING MANAGER Narrative [facility] LABORATORY [facility] - 03/07/2017 5:38 PM FINANCIAL REPORTING MANAGER Based on results, a urine culture has been reflexed. Carson Elias MD URINE ORDERABLES [facility] CLIA# [id number] [address] [place] [address] * (ABNORMAL) OSMOLALITY (03/07/2017 7:40 AM FINANCIAL REPORTING MANAGER) OSMOLALITY 270(L) 275 - 300 mOsm/kg 03/07/2017 10:[address] [facility] Blood Venipuncture / Unknown 03/07/2017 7:40 AM FINANCIAL REPORTING MANAGER 03/07/2017 8:57 AM FINANCIAL REPORTING MANAGER Carson Elias MD CHEMISTRY ORDERABLES Performing Organization Address City/[facility] [address]/ZIP Co de Phone Number [facility] CLIA# [id number] [address] [place] [address] * (ABNORMAL) CBC WITH DIFFERENTIAL (03/07/2017 7:40 AM FINANCIAL REPORTING MANAGER) WBC 7.5 4.0 - 9.8 K/uL 03/07/2017 9:09 AM [facility] [employer] [facility] RBC 4.71 3.90 - 4.90 M/uL 03/07/2017 9:09 AM [facility] [employer] [facility] HEMOGLOBIN 14.0 11.8 - 14.8 g/dL 03/07/2017 9:09 AM [facility] [employer] [facility] HEMATOCRIT 41.2 35.5 - 44.0 % 03/07/2017 9:09 AM FINANCIAL REPORTING MANAGER [facility] MCV 87.5 82.0 - 99.0 fL 03/07/2017 9:09 AM FINANCIAL REPORTING MANAGER [employer] LABORATORY SERVICES - [facility] MCH 29.7 27.2 - 32.6 pg 03/07/2017 9:09 AM [employer] [facility]ATORY SERVICES - [facility] MCHC 34.0 31.5 - 35.5 g/dL 03/07/2017 9:09 AM [employer]ORY [facility] - [facility] RDW 12.4 11.5 - 14.5 % 03/07/2017 9:09 AM [employer] - [facility] RDW-STDEV 39.7 37.1 - 48.7 fL 03/07/2017 9:09 AM FINANCIAL REPORTING MANAGER [employer] LABORATORY SERVICES - [facility] PLATELETS 597(H) 140 - 350 K/uL 03/07/2017 9:09 AM [facility] LABORATORY SERVICES - [facility] MPV 9.5 9.3 - 12.4 fL 03/07/2017 9:09 AM [facility] - [facility] NEUTROPHILS 66 % 03/07/2017 9:09 AM [facility] - [facility] LYMPHOCYTES 26 % 03/07/2017 9:09 AM [facility] MONOCYTES 7 % 03/07/2017 9:09 AM [facility] EOSINOPHILS 1 % 03/07/2017 9:09 AM [facility] BASOPHILS 0 % 03/07/2017 9:09 AM [facility] - [facility] IMMATURE GRANULOCYTES 0 % 03/07/2017 9:09 AM [facility] - [facility] NEUTROPHIL ABSOLUTE 4.95 1.90 - 7.00 K/uL 03/07/2017 9:09 AM FINANCIAL REPORTING MANAGER [employer] LABORATORY SERVICES - [facility] LYMPHOCYTE ABSOLUTE 1.92 0.70 - 4.50 K/uL 03/07/2017 9:09 AM FINANCIAL REPORTING MANAGER [employer] [facility]ORATORY SERVICES - [facility] MONOCYTE ABSOLUTE 0.55 0.10 - 1.30 K/uL 03/07/2017 9:09 AM [facility] - [facility] EOSINOPHIL ABSOLUTE 0.08 0.00 - 0.70 K/uL 03/07/2017 9:09 AM FINANCIAL REPORTING MANAGER [employer] LABORATORY SERVICES - [facility] BASOPHILS ABSOLUTE 0.02 0.00 - 0.20 K/uL 03/07/2017 9:09 AM [facility] [employer] SERVICES - . [facility] IMMATURE GRANULOCYTES ABSOLUTE 0.02 0.00 - 0.03 K/uL 03/07/2017 9:09 AM [facility] [employer] - [facility] Blood Venipuncture / Unknown 03/07/2017 7:40 AM FINANCIAL REPORTING MANAGER 03/07/2017 8:57 AM FINANCIAL REPORTING MANAGER Carson Elias MD HEMATOLOGY ORDERABLE S [employer] [facility] CLIA# [id number] [address] [place] [address] * (ABNORMAL) BASIC METABOLIC PANEL (03/07/2017 7:40 AM FINANCIAL REPORTING MANAGER) SODIUM 130(L) 136 - 145 mmol/L 03/07/2017 9:37 AM [facility] [employer] [facility] POTASSIUM 4.0 3.5 - 5.0 mmol/L 03/07/2017 9:37 AM [facility] [employer] [facility] CHLORIDE 89(L) 98 - 107 mmol/L 03/07/2017 9:37 AM [facility] [employer] [facility] CO2 25 22 - 29 mmol/L 03/07/2017 9:37 AM [facility] [employer] [facility]. [facility] CALCIUM 9.2 8.6 - 10.2 mg/dL 03/07/2017 9:37 AM [facility] [employer] [facility]. [facility] BUN 10 8 - 23 mg/dL 03/07/2017 9:37 AM [facility] [employer] [facility]. [facility] CREATININE 0.66 0.51 - 0.95 mg/dL 03/07/2017 9:37 AM [employer] [facility]. [facility] GLUCOSE 87 74 - 99 mg/dL 03/07/2017 9:37 AM [facility] [employer] [facility]. [facility] GFR >60 >=60 mL/min/1.7 3 sq meter 03/07/2017 9:37 AM [employer] [facility] Comment: eGFR has not been validated for [...] GFR, >60 >=60 mL/min/1.7 3 sq meter 03/07/2017 9:37 AM FINANCIAL REPORTING MANAGER [facility] LABORATORY SERVICES [facility] ANION GAP 16 8 - 16 mmol/L 03/07/2017 9:37 AM FINANCIAL REPORTING MANAGER [facility] LABORATORY [facility] Blood Venipuncture / Unknown 03/07/2017 7:40 AM FINANCIAL REPORTING MANAGER 03/07/2017 8:57 AM FINANCIAL REPORTING MANAGER Yasmin Vieyra DO CHEMISTRY ORDERABLES [facility] LABORATORY [facility]# [id number] [address] [place] [address] * RT ASSESS AND TREAT (03/06/2017 1:06 PM FINANCIAL REPORTING MANAGER) Narrative Aracely Longoria RCP - 03/06/2017 1:06 PM FINANCIAL REPORTING MANAGER Aracely Longoria RCP ? 03/06/2017 ??1:07 PM Respiratory Care Practitioner Note: Kaitlin Bond RT [employer]/Respiratory Care Consult for respiratory care recommendations. No Follow: Currently no clinical indication is noted for respiratory therapy intervention or follow. Please call RT at [phone] for a change in patient condition. Vitals, Labs, and Patient history were reviewed. BP 114/77 (BP Location: Left arm, Patient Position (BP): Supine) ?? Pulse 96 ?? Temp 97.5 ??F (36.4 ??C) (Oral) ?? Resp 18 ?? Ht 5' 3 (1.6 m) ?? Wt 59.9 kg (132 lb) ?? SpO2 100% ?? BMI 23.38 kg/m?? Lab Results Component Value Date/Time HEMATOCRIT 42.7 03/06/2017 06:05 AM HEMOGLOBIN 14.3 03/06/2017 06:05 AM Thank you, Aracely Longoria, BACK END DEVELOPER, PODIATRIC FOOT AND ANKLE SPECIALIST Lead Respiratory Therapist [facility] [place] [phone] Minutes were spent in the care of this patient today; this may have included EMR review, family/patient education or conferences, and discussions with any consultants. Yasmin Vieyra DO RESPIRATORY CARE ORD ERABLES * (ABNORMAL) CBC WITH DIFFERENTIAL (03/06/2017 6:05 AM FINANCIAL REPORTING MANAGER) WBC 8.4 4.0 - 9.8 K/uL 03/06/2017 8:20 AM [facility] RBC 4.83 3.90 - 4.90 M/uL 03/06/2017 8:20 AM [facility] HEMOGLOBIN 14.3 11.8 - 14.8 g/dL 03/06/2017 8:20 AM FINANCIAL REPORTING MANAGER [facility] HEMATOCRIT 42.7 35.5 - 44.0 % 03/06/2017 8:20 AM FINANCIAL REPORTING MANAGER [facility] MCV 88.4 82.0 - 99.0 fL 03/06/2017 8:20 AM FINANCIAL REPORTING MANAGER [facility] MCH 29.6 27.2 - 32.6 pg 03/06/2017 8:20 AM FINANCIAL REPORTING MANAGER [facility] MCHC 33.5 31.5 - 35.5 g/dL 03/06/2017 8:20 AM FINANCIAL REPORTING MANAGER [facility] RDW 12.1 11.5 - 14.5 % 03/06/2017 8:20 AM [facility] RDW-STDEV 39.5 37.1 - 48.7 fL 03/06/2017 8:20 AM [facility] PLATELETS 575(H) 140 - 350 K/uL 03/06/2017 8:20 AM FINANCIAL REPORTING MANAGER [facility] MPV 9.6 9.3 - 12.4 fL 03/06/2017 8:20 AM [facility] NEUTROPHILS 59 % 03/06/2017 8:20 AM [facility] LYMPHOCYTES 32 % 03/06/2017 8:20 AM [facility] MONOCYTES 6 % 03/06/2017 8:20 AM [facility] EOSINOPHILS 2 % 03/06/2017 8:20 AM [facility] BASOPHILS 0 % 03/06/2017 8:20 AM [facility] IMMATURE GRANULOCYTES 0 % 03/06/2017 8:20 AM [facility] NEUTROPHIL ABSOLUTE 4.95 1.90 - 7.00 K/uL 03/06/2017 8:20 AM [facility] LYMPHOCYTE ABSOLUTE 2.71 0.70 - 4.50 K/uL 03/06/2017 8:20 AM [facility] MONOCYTE ABSOLUTE 0.53 0.10 - 1.30 K/uL 03/06/2017 8:20 AM [facility] EOSINOPHIL ABSOLUTE 0.13 0.00 - 0.70 K/uL 03/06/2017 8:20 AM [facility] BASOPHILS ABSOLUTE 0.02 0.00 - 0.20 K/uL 03/06/2017 8:20 AM [facility] IMMATURE GRANULOCYTES ABSOLUTE 0.03 0.00 - 0.03 K/uL 03/06/2017 8:20 AM [facility] [employer] [facility] Blood Venipuncture / Unknown 03/06/2017 6:05 AM FINANCIAL REPORTING MANAGER 03/06/2017 7:50 AM FINANCIAL REPORTING MANAGER Carson Elias MD HEMATOLOGY ORDERABLE S [employer] SERVICES [facility]# [id number] [address] [facility] [place] [address] * (ABNORMAL) BASIC METABOLIC PANEL (03/06/2017 6:05 AM FINANCIAL REPORTING MANAGER) SODIUM 131(L) 136 - 145 mmol/L 03/06/2017 8:55 AM [facility] [employer] SERVICES - [facility] POTASSIUM 3.5 3.5 - 5.0 mmol/L 03/06/2017 8:55 AM [facility] [employer] SERVICES - [facility] CHLORIDE 89(L) 98 - 107 mmol/L 03/06/2017 8:55 AM [facility] Mult[facility] - [facility] CO2 26 22 - 29 mmol/L 03/06/2017 8:55 AM [facility] LABORATORY [facility] CALCIUM 9.4 8.6 - 10.2 mg/dL 03/06/2017 8:55 AM [facility] - [facility] BUN 10 8 - 23 mg/dL 03/06/2017 8:[address] [facility] CREATININE 0.69 0.51 - 0.95 mg/dL 03/06/2017 8:55 AM [facility] [employer] [facility] GLUCOSE 93 74 - 99 mg/dL 03/06/2017 8:55 AM [facility] [employer] GFR >60 >=60 mL/min/1.7 3 sq meter 03/06/2017 8:55 AM [facility] [employer] [facility] Comment: eGFR has not been validated [...] GFR, >60 >=60 mL/min/1.7 3 sq meter 03/06/2017 8:55 AM [facility] LABORATORY [facility] ANION GAP 16 8 - 16 mmol/L 03/06/2017 8:55 AM [facility] [employer] [facility] Blood Venipuncture / Unknown 03/06/2017 6:05 AM FINANCIAL REPORTING MANAGER 03/06/2017 7:48 AM FINANCIAL REPORTING MANAGER Carson Elias MD CHEMISTRY ORDERABLES [facility] [employer] [facility]# [id number] 5 [facility] [place] [address] * (ABNORMAL) COMPREHENSIVE METABOLIC PANEL (03/04/2017 6:00 AM CDT) SODIUM 132(L) 136 - 145 mmol/L 03/04/2017 9:02 AM [employer] - [facility] POTASSIUM 3.6 3.5 - 5.0 mmol/L 03/04/2017 9:02 AM [employer] [facility] - [facility] CHLORIDE 91(L) 98 - 107 mmol/L 03/04/2017 9:02 AM [facility] - [facility] CO2 27 22 - 29 mmol/L 03/04/2017 9:02 AM [employer] - [facility] CALCIUM 9.2 8.6 - 10.2 mg/dL 03/04/2017 9:02 AM [facility] - [facility] BUN 8 8 - 23 mg/dL 03/04/2017 9:02 AM [facility] - [facility] CREATININE 0.63 0.51 - 0.95 mg/dL 03/04/2017 9:02 AM [facility] - [facility] GLUCOSE 79 74 - 99 mg/dL 03/04/2017 9:02 AM [facility] - [facility] TOTAL PROTEIN 6.6(L) 6.7 - 8.6 g/dL 03/04/2017 9:02 AM [facility] - [facility] ALBUMIN 4.0 3.5 - 5.2 g/dL 03/04/2017 9:02 AM [facility] - [facility] BILIRUBIN TOTAL 0.3 0.2 - 1.1 mg/dL 03/04/2017 9:02 AM [facility] - [facility] ALKALINE PHOSPHATASE 87 35 - 104 U/L 03/04/2017 9:02 AM [employer] [facility] - [facility] AST 28 <33 U/L 03/04/2017 9:02 AM [facility] - [facility] ALT 27 <34 U/L 03/04/2017 9:02 AM [facility] - [facility] GFR >60 >=60 mL/min/1.7 3 sq meter 03/04/2017 9:02 AM [facility] - [facility] Comment: eGFR has not been validated for [...] GFR, >60 >=60 mL/min/1.7 3 sq meter 03/04/2017 9:02 AM CDT [facility] LABORATORY SERVICES [facility] ANION GAP 14 8 - 16 mmol/L 03/04/2017 9:02 AM T [facility] LABORATORY SERVICES [facility] Blood Venipuncture / Unknown 03/04/2017 6:00 AM CDT 03/04/2017 8:26 AM CDT [facility] LABORATORY SERVICES - [facility] - 03/04/2017 9:02 AM CDT Samples containing indocyanine green cause interferences on Total and/or Direct Bilirubin and must not be measured. Yasmin Vieyra DO CHEMISTRY ORDERABLES [facility] LABORATORY SERVICES [facility]# [id number] [address] [place] [address] * (ABNORMAL) CBC WITH DIFFERENTIAL (03/04/2017 6:00 AM CDT) Pathologist [facility] WBC 8.5 4.0 - 9.8 K/uL 03/04/2017 8:34 AM T [facility] LABORATORY SERVICES [facility] RBC 4.50 3.90 - 4.90 M/uL 03/04/2017 8:34 AM T [facility] LABORATORY SERVICES - [facility] HEMOGLOBIN 13.3 11.8 - 14.8 g/dL 03/04/2017 8:34 AM T [facility] LABORATORY SERVICES - [facility] HEMATOCRIT 40.0 35.5 - 44.0 % 03/04/2017 8:34 AM T [facility] LABORATORY SERVICES - [facility] MCV 88.9 82.0 - 99.0 fL 03/04/2017 8:34 AM T [employer] LABORATORY SERVICES - [facility] MCH 29.6 27.2 - 32.6 pg 03/04/2017 8:34 AM T [employer] LABORATORY SERVICES - [facility] MCHC 33.3 31.5 - 35.5 g/dL 03/04/2017 8:34 AM CDT [facility] LABORATORY SERVICES - [facility] RDW 12.4 11.5 - 14.5 % 03/04/2017 8:34 AM CDT [facility] LABORATORY SERVICES - [facility] RDW-STDEV 40.8 37.1 - 48.7 fL 03/04/2017 8:34 AM CDT [facility] LABORATORY SERVICES - [facility] PLATELETS 488(H) 140 - 350 K/uL 03/04/2017 8:34 AM CDT [facility] LABORATORY SERVICES - [facility] MPV 9.3 9.3 - 12.4 fL 03/04/2017 8:34 AM [employer] [facility] [facility]ORATORY SERVICES - [facility] NEUTROPHILS 54 % 03/04/2017 8:34 AM CDT [facility]ATORY SERVICES - [facility] LYMPHOCYTES 37 % 03/04/2017 8:34 AM [employer] LABORATORY SERVICES - [facility] MONOCYTES 7 % 03/04/2017 8:34 AM [employer] [facility] SERVICES - [facility] EOSINOPHILS 1 % 03/04/2017 8:34 AM CDT [facility] SERVICES - [facility] BASOPHILS 0 % 03/04/2017 8:34 AM [employer] LABORATORY SERVICES - [facility] IMMATURE GRANULOCYTES 1 % 03/04/2017 8:34 AM [employer] LABORATORY SERVICES - [facility] Comment:IG (Immature Granulo cyte) count includes Metamyelocytes, Myelocytes, and Promyelocytes NEUTROPHIL ABSOLUTE 4.56 1.90 - 7.00 K/uL 03/04/2017 8:34 AM [employer] [facility]ORATORY SERVICES - [facility] LYMPHOCYTE ABSOLUTE 3.17 0.70 - 4.50 K/uL 03/04/2017 8:34 AM [employer] LABORATORY SERVICES - [facility] MONOCYTE ABSOLUTE 0.60 0.10 - 1.30 K/uL 03/04/2017 8:34 AM CDT [employer] LABORATORY SERVICES - [facility] EOSINOPHIL ABSOLUTE 0.12 0.00 - 0.70 K/uL 03/04/2017 8:34 AM [employer] LABORATORY SERVICES - [facility] BASOPHILS ABSOLUTE 0.02 0.00 - 0.20 K/uL 03/04/2017 8:34 AM CDT [facility]ATORY SERVICES - [facility] IMMATURE GRANULOCYTES ABSOLUTE 0.05(H) 0.00 - 0.03 K/uL 03/04/2017 8:34 AM T [facility] - [facility] Blood Venipuncture / Unknown 03/04/2017 6:00 AM CDT 03/04/2017 8:26 AM CDT Yasmin Vieyra DO HEMATOLOGY ORDERABLE S [employer] LABORATORY SERVICES - [facility] CLIA# [id number] [address] [facility] [place] [address] * URINALYSIS WITH REFLEX CULTURE (03/03/2017 10:08 PM CDT) COLOR UA Pale Yellow Pale to Dark Yellow 03/04/2017 8:[address] [facility] [employer] SERVICES - . [place] CLARITY UA Clear Clear 03/04/2017 8:[address] [facility] [employer] SERVICES - . [facility] SPECIFIC GRAVITY UA 1.008 1.003 - 1.035 03/04/2017 8:31 AM T [employer] SERVICES - . [facility] PH UA 8.0 5.0 - 8.0 03/04/2017 8:[address] [facility] [employer] LABORATORY SERVICES - [facility] LEUKOCYTE ESTERASE UA Negative Negative 03/04/2017 8:[address] [facility] [employer] SERVICES - . [place] NITRITE UA Negative Negative 03/04/2017 8:[address] [facility] [facility] - [facility] PROTEIN UA Negative Negative 03/04/2017 8:[address] [facility] [employer] SERVICES - . [place] GLUCOSE UA Negative Negative 03/04/2017 8:31 AM T [facility] - [facility] KETONES UA Negative Negative 03/04/2017 8:31 AM T [employer] [facility] SERVICES - [facility] UROBILINOGEN UA Normal <2.0 mg/dL 7 8:[address] [facility] [facility] SERVICES - [facility] BILIRUBIN UA Negative Negative 03/04/2017 8:[address] [facility] - [facility] BLOOD UA Negative Negative 03/04/2017 8:[address] [facility] SERVICES - [facility] Urine URINE SPECIMEN OBTAINED BY CLEAN CATCH PROCEDURE / Unknown Collection / Unknown 03/03/2017 10:08 PM CDT 03/04/2017 8:10 AM CDT Yasmin Vieyra URINE ORDERABLES Performing Organization Address City/State/[facility] Co de Phone Number [facility]# [id number] [address] [place] [address] documented in this encounter Visit Diagnoses Diagnosis Cervical myelopathy- Primary Cervical spondylosis with myelopathy Cervical stenosis of spine Spinal stenosis in cervical region Cervical myelopathy Cervical spondylosis with myelopathy Fall, subsequent encounter Cervical stenosis of spine Spinal stenosis in cervical region Essential hypertension Unspecified essential hypertension Depression Depressive disorder, not elsewhere classified documented in this encounter Administered Medications Inactive Administered Medications - up to 3 most recent administrations Medication Order MAR Action Action Date Dose Rate Site amLODIPine (NORVASC) tablet 10 mg 10 mg, Oral, DAILY, First dose on Mon03/04/17 at 0900, Until Discontinued, Routine Given 03/15/2017 8:58 AM FINANCIAL REPORTING MANAGER 10 mg Given 03/14/2017 8:21 AM FINANCIAL REPORTING MANAGER 10 mg Given 03/13/2017 9:05 AM FINANCIAL REPORTING MANAGER 10 mg atorvastatin (LIPITOR) tablet 20 mg 20 mg, Oral, DAILY LATE, First dose on Mon03/03/17 at 1945, Until Discontinued, Routine Given 03/14/2017 4:11 PM FINANCIAL REPORTING MANAGER 20 mg Given 03/13/2017 4:45 PM FINANCIAL REPORTING MANAGER 20 mg Given 03/12/2017 5:13 PM FINANCIAL REPORTING MANAGER 20 mg vphzdcvolj-mrylizf-zusblxwtrqxtm (CEPACOL) lozenge 1 Each 1 Each, Mouth/Throat, EVERY 3 HOURS PRN, Starting on Mon03/12/17 at 0526, Until Mon03/15/17 at 1429, Sore Throat, Routine Given 03/12/2017 8:59 PM FINANCIAL REPORTING MANAGER 1 Eac h bisacodyl (DULCOLAX) rectal suppository 10 mg 10 mg, Rectal, DAILY PRN, Starting on Mon03/03/17 at 1944, Until Mon03/15/17 at 1429, Constipation, Routine Given 03/12/2017 9:15 PM FINANCIAL REPORTING MANAGER 10 mg Given 03/09/2017 9:51 AM FINANCIAL REPORTING MANAGER 10 mg Given 03/07/2017 1:45 PM FINANCIAL REPORTING MANAGER 10 mg calcium-cholecalciferol (OS-IAN 500+D) tablet 1 Tablet 1 Tablet, Oral, DAILY, First dose on 03/04/17 at 0900, Until Discontinued, Routine Given 03/15/2017 8:59 AM FINANCIAL REPORTING MANAGER 1 Tablet Given 03/14/2017 8:21 AM FINANCIAL REPORTING MANAGER 1 Tablet Given 03/13/2017 9:05 AM FINANCIAL REPORTING MANAGER 1 Tablet cyanocobalamin (VITAMIN B-12) tablet 100 mcg 100 mcg, Oral, DAILY, First dose on 03/04/17 at 0900, Until Discontinued, Routine Given 03/15/2017 9:01 AM FINANCIAL REPORTING MANAGER 100 mcg Given 03/14/2017 8:21 AM FINANCIAL REPORTING MANAGER 100 mcg Given 03/13/2017 9:05 AM FINANCIAL REPORTING MANAGER 100 mcg diazePAM (VALIUM) tablet 5 mg 5 mg, Oral, EVERY 8 HOURS PRN, Starting on Mon03/03/17 at 1944, Until 03/05/17 at 1018, Anxiety, Discomfort, Routine Given 03/05/2017 5:20 AM FINANCIAL REPORTING MANAGER 5 mg Given 03/04/2017 9:06 PM CDT 5 mg Given 03/03/2017 10:04 PM CDT 5 mg docusate sodium (COLACE) capsule 100 mg 100 mg, Oral, TWO TIMES DAILY, First dose (after last modification) on 03/05/17 at 1330, Until Discontinued, Routine Given 03/15/2017 9:01 AM FINANCIAL REPORTING MANAGER 100 mg Given 03/14/2017 8:59 PM FINANCIAL REPORTING MANAGER 100 mg Given 03/14/2017 8:21 AM FINANCIAL REPORTING MANAGER 100 mg DULoxetine (CYMBALTA) capsule 60 mg 60 mg, Oral, DAILY AT BEDTIME, First dose on Mon03/03/17 at 2100, Until Discontinued, Routine Given 03/14/2017 8:59 PM FINANCIAL REPORTING MANAGER 60 mg Given 03/13/2017 9:04 PM FINANCIAL REPORTING MANAGER 60 mg Given 03/12/2017 9:00 PM FINANCIAL REPORTING MANAGER 60 mg enoxaparin (LOVENOX) injection 40 mg 40 mg, subCUT, EVERY 24 HOURS, First dose on Mon03/03/17 at 2315, Until Discontinued, Routine Given 03/14/2017 8:59 PM FINANCIAL REPORTING MANAGER 40 mg Abdomen, Left Lower Quadrant Given 03/13/2017 9:07 PM FINANCIAL REPORTING MANAGER 40 mg Ab domen, Right Lower Quadrant Given 03/12/2017 8:58 PM FINANCIAL REPORTING MANAGER 40 mg Ab domen, Left Lower Quadrant eszopiclone (LUNESTA) tablet 3 mg 3 mg, Oral, DAILY AT BEDTIME, First dose on Mon03/08/17 at 2100, Until Discontinued, Routine Given 03/14/2017 10:52 PM FINANCIAL REPORTING MANAGER 3 mg Given 03/13/2017 9:00 PM FINANCIAL REPORTING MANAGER 3 mg Given 03/12/2017 8:58 PM FINANCIAL REPORTING MANAGER 3 mg FLUoxetine (PROzac) capsule 40 mg 40 mg, Oral, DAILY AT BEDTIME, First dose on Mon03/03/17 at 2100, Until Discontinued, Routine Given 03/14/2017 8:58 PM FINANCIAL REPORTING MANAGER 40 mg Given 03/13/2017 9:05 PM FINANCIAL REPORTING MANAGER 40 mg Given 03/12/2017 9:00 PM FINANCIAL REPORTING MANAGER 40 mg levothyroxine (SYNTHROID) tablet 50 mcg 50 mcg, Oral, DAILY EARLY, First dose on Mon03/04/17 at 0600, Until Discontinued, Routine Given 03/15/2017 5:59 AM FINANCIAL REPORTING MANAGER 50 mcg Given 03/14/2017 5:58 AM FINANCIAL REPORTING MANAGER 50 mcg Given 03/13/2017 5:47 AM FINANCIAL REPORTING MANAGER 50 mcg Lidocaine (ASPERCREME) 4 % topical patch 1 Patch 1 Patch, Topical, DAILY, 3 doses, First dose on Mon03/05/17 at 1045, Last dose on Mon03/07/17 at 0900, Routine Applied 03/07/2017 8:42 AM FINANCIAL REPORTING MANAGER 1 Patch Abdom inal Tissue Applied 03/06/2017 8:55 AM FINANCIAL REPORTING MANAGER 1 Patch Ab dominal Tissue Applied 03/05/2017 11:40 AM FINANCIAL REPORTING MANAGER 1 Patch O ther (Comment) lisinopril (PRINIVIL) tablet 40 mg 40 mg, Oral, DAILY AT BEDTIME, First dose on Mon03/03/17 at 2100, Until Discontinued, Routine Given 03/14/2017 8:58 PM FINANCIAL REPORTING MANAGER 40 mg Given 03/12/2017 9:00 PM FINANCIAL REPORTING MANAGER 40 mg Given 03/11/2017 9:01 PM FINANCIAL REPORTING MANAGER 40 mg magnesium hydroxide (MILK OF MAGNESIA) oral suspension 30 mL 30 mL, Oral, DAILY PRN, Starting on Mon03/06/17 at 0523, Until Mon03/15/17 at 1429, Constipation, Routine Given 03/07/2017 1:54 PM FINANCIAL REPORTING MANAGER 30 mL melatonin tablet 3 mg 3 mg, Oral, DAILY AT BEDTIME, First dose on Mon03/12/17 at 2100, Until Discontinued, Routine Given 03/14/2017 8:58 PM FINANCIAL REPORTING MANAGER 3 mg Given 03/13/2017 9:04 PM FINANCIAL REPORTING MANAGER 3 mg Given 03/12/2017 8:59 PM FINANCIAL REPORTING MANAGER 3 mg methocarbamol (ROBAXIN) tablet 500 mg 500 mg, Oral, THREE TIMES DAILY, First dose on Mon03/05/17 at 1030, Until Discontinued, Routine Given 03/15/2017 6:04 AM FINANCIAL REPORTING MANAGER 500 mg Given 03/14/2017 4:11 PM FINANCIAL REPORTING MANAGER 500 mg Given 03/14/2017 12:43 PM FINANCIAL REPORTING MANAGER 500 mg ondansetron (ZOFRAN ODT) tablet 4 mg 4 mg, Oral, EVERY 6 HOURS PRN, Starting on Mon03/03/17 at 1944, Until Mon03/15/17 at 1429, Nausea/Emesis, Routine Given 03/04/2017 5:42 AM CDT 4 mg oxyCODONE-acetaminophen (PERCOCET) 5-325 mg per tablet 1 Tablet 1 Tablet, Oral, EVERY 4 HOURS PRN, Starting on Mon03/03/17 at 1944, Until Mon03/15/17 at 1429, Pain, Moderate, Routine Given 03/09/2017 10:09 P M FINANCIAL REPORTING MANAGER 1 Tablet Given 03/09/2017 9:22 AM FINANCIAL REPORTING MANAGER 1 Tablet Given 03/05/2017 5:18 AM FINANCIAL REPORTING MANAGER 1 Tablet pantoprazole (PROTONIX) tablet 40 mg 40 mg, Oral, DAILY, First dose on Mon03/04/17 at 0900, Until Discontinued, Routine Given 03/15/2017 5:59 AM FINANCIAL REPORTING MANAGER 40 mg Given 03/14/2017 5:58 AM FINANCIAL REPORTING MANAGER 40 mg Given 03/13/2017 5:47 AM FINANCIAL REPORTING MANAGER 40 mg sennosides-docusate sodium (SENNA-S) 8.6-50 mg per tablet 1 Tablet 1 Tablet, Oral, DAILY AT BEDTIME, First dose on Mon03/08/17 at 2100, Until Discontinued, Routine Given 03/14/2017 8:58 PM FINANCIAL REPORTING MANAGER 1 Tablet Given 03/12/2017 8:59 PM FINANCIAL REPORTING MANAGER 1 Tablet Given 03/11/2017 9:02 PM FINANCIAL REPORTING MANAGER 1 Tablet sodium chloride 0.9% infusion IV, at 100 mL/hr, CONTINUOUS, Starting on Mon03/08/17 at 0415, Until Mon03/08/17 at 1414, Routine, IVF NS at 100 ml/hr x 1L Rate Verify 03/08/2017 5:00 AM FINANCIAL REPORTING MANAGER 100 mL /hr New Bag 03/08/2017 4:15 AM FINANCIAL REPORTING MANAGER 100 mL/hr sodium chloride tablet 1 Gram 1 Gram, Oral, THREE TIMES DAILY WITH MEALS, First dose on Mon03/07/17 at 1300, Until Discontinued, Routine Given 03/07/2017 4:54 PM FINANCIAL REPORTING MANAGER 1 Gram Given 03/07/2017 1:43 PM FINANCIAL REPORTING MANAGER 1 Gram sodium chloride tablet 1 Gram 1 Gram, Oral, THREE TIMES DAILY WITH MEALS, First dose on Mon03/08/17 at 1700, Until Discontinued, Routine Given 03/14/2017 12:43 PM FINANCIAL REPORTING MANAGER 1 Gram Given 03/14/2017 8:21 AM FINANCIAL REPORTING MANAGER 1 Gram Given 03/13/2017 4:45 PM FINANCIAL REPORTING MANAGER 1 Gram sodium chloride tablet 2 Gram 2 Gram, Oral, THREE TIMES DAILY WITH MEALS, First dose (after last modification) on Mon03/14/17 at 1700, Until Discontinued, Routine Given 03/15/2017 9:02 AM FINANCIAL REPORTING MANAGER 2 Grams Given 03/14/2017 4:11 PM FINANCIAL REPORTING MANAGER 2 Grams tiZANidine (ZANAFLEX) tablet 2 mg 2 mg, Oral, DAILY AT BEDTIME, First dose on Mon03/05/17 at 2100, Until Discontinued, Routine Given 03/06/2017 9:40 PM FINANCIAL REPORTING MANAGER 2 mg Given 03/05/2017 10:00 PM FINANCIAL REPORTING MANAGER 2 mg tiZANidine (ZANAFLEX) tablet 4 mg 4 mg, Oral, DAILY AT BEDTIME, First dose (after last modification) on Mon03/07/17 at 2100, Until Discontinued, Routine Given 03/07/2017 8:43 PM FINANCIAL REPORTING MANAGER 4 mg documented in this encounter Active and Recently Administered Medications Times are shown in FINANCIAL REPORTING MANAGER. Scheduled Medication Order 03/13/2017 03/14/2017 03/15/2017 amLODIPine (NORVASC) tablet 10 mg 10 mg, Oral, DAILY, First dose on Mon03/04/17 at 0900, Until Discontinued, Routine 0905 (Given - Provider: Delmy Wood RN) 0821 (Given - Provider: Shorty Hanson LPN) 0858 (Given - Provider: Kathy Jha RN) atorvastatin (LIPITOR) tablet 20 mg 20 mg, Oral, DAILY LATE, First dose on Mon03/03/17 at 1945, Until Discontinued, Routine 1645 (Given - Provider: Delmy Wood RN) 1611 (Given - Provider: Shorty Hanson LPN) calcium-cholecalcifero l (OS-IAN 500+D) tablet 1 Tablet 1 Tablet, Oral, DAILY, First dose on 03/04/17 at 0900, Until Discontinued, Routine 09 (Given - Provider: Delmy Wood RN) 08 (Given - Provider: Shorty Hanson LPN) 0859 (Given - Provider: Kathy Jha RN) cyanocobalamin (VITAMIN B-12) tablet 100 mcg 100 mcg, Oral, DAILY, First dose on 03/04/17 at 0900, Until Discontinued, Routine 904 (Given - Provider: Delmy Wood RN) 08 (Given - Provider: Shorty Hanson LPN) 09 (Given - Provider: Kathy Jha RN) docusate sodium (COLACE) capsule 100 mg 100 mg, Oral, TWO TIMES DAILY, First dose (after last modification) on Mon03/05/17 at 1330, Until Discontinued, Routine 904 (Refused - Provider: Delmy Wood RN)2099 (Refused - Provider: Kati Joshua RN) 820 (Given - Provider: Shorty Hanson LPN)2058 (Given - Provider: Rodrigue Husain RN) 09 (Given - Provider: Kathy Jha RN) DULoxetine (CYMBALTA) capsule 60 mg 60 mg, Oral, DAILY AT BEDTIME, First dose on Mon03/03/17 at 2100, Until Discontinued, Routine 2103 (Given - Provider: Kati Joshua RN) 2058 (Given - Provider: Rodrigue Husain RN) enoxaparin (LOVENOX) injection 40 mg 40 mg, subCUT, EVERY 24 HOURS, First dose on Mon03/03/17 at 2315, Until Discontinued, Routine 2106 (Given - Provider: Kati Joshua RN) 2058 (Given - Provider: Rodrigue Husain RN) eszopiclone (LUNESTA) tablet 3 mg 3 mg, Oral, DAILY AT BEDTIME, First dose on Mon03/08/17 at 2100, Until Discontinued, Routine 2099 (Given - Provider: Kati Joshua RN) 225 (Given - Provider: Rodrigue Husain RN) FLUoxetine (PROzac) capsule 40 mg 40 mg, Oral, DAILY AT BEDTIME, First dose on Mon03/03/17 at 2100, Until Discontinued, Routine 2104 (Given - Provider: Kati Joshua RN) 2057 (Given - Provider: Rodrigue Husain RN) levothyroxine (SYNTHROID) tablet 50 mcg 50 mcg, Oral, DAILY EARLY, First dose on 03/04/17 at 0600, Until Discontinued, Routine 0547 (Given - Provider: Katey Rojo RN) 0558 (Given - Provider: Katey Rojo RN) 0559 (Given - Provider: Rodrigue Husain RN) lisinopril (PRINIVIL) tablet 40 mg 40 mg, Oral, DAILY AT BEDTIME, First dose on 03/03/17 at 2100, Until Discontinued, Routine 2100 (Not Given - Provider: Kati Joshua RN - Reason: Patient condition) 2057 (Given - Provider: Rodrigue Husain RN) melatonin tablet 3 mg 3 mg, Oral, DAILY AT BEDTIME, First dose on 03/12/17 at 2100, Until Discontinued, Routine 2103 (Given - Provider: Kati Joshua RN) 2057 (Given - Provider: Rodrigue Husain RN) methocarbamol (ROBAXIN) tablet 500 mg 500 mg, Oral, THREE TIMES DAILY, First dose on 03/05/17 at 1030, Until Discontinued, Routine 0700 (Given - Provider: Katey Rojo RN)1218 (Given - Provider: Delmy Wood RN)1817 (Given - Provider: Delmy Wood RN) 0602 (Given - Provider: Katey Rojo RN)1243 (Given - Provider: Shorty Hanson LPN)1611 (Given - Provider: Shorty Hanson LPN) 0604 (Given - Provider: Rodrigue Husain RN)1200 (Due) naloxone (NARCAN) 0.4 mg/mL injection 0.1 mg 0.1 mg, IV, SEE ADMIN INSTRUCTIONS, Starting on Mon03/03/17 at 1944, Until Mon03/15/17 at 1429, Routine pantoprazole (PROTONIX) tablet 40 mg 40 mg, Oral, DAILY, First dose on Mon03/04/17 at 0900, Until Discontinued, Routine 0547 (Given - Provider: Katey Rojo RN) 0558 (Given - Provider: Katey Rojo RN) 0559 (Given - Provider: Rodrigue Husain RN) sennosides-docusate sodium (SENNA-S) 8.6-50 mg per tablet 1 Tablet 1 Tablet, Oral, DAILY AT BEDTIME, First dose on Mon03/08/17 at 2100, Until Discontinued, Routine 2100 (Refused - Provider: Kati Joshua RN) 205 (Given - Provider: Rodrigue Husain RN) sodium chloride tablet 1 Gram (CANCELED) 1 Gram, Oral, THREE TIMES DAILY WITH MEALS, First dose on Mon03/08/17 at 1700, Until Discontinued, Routine 0905 (Given - Provider: Delmy Wood RN)1218 (Given - Provider: Delmy Wood RN)1645 (Given - Provider: Delmy Wood RN) 0821 (Given - Provider: Shorty Hanson LPN)1243 (Given - Provider: Shorty Hanson LPN) sodium chloride tablet 2 Gram 2 Gram, Oral, THREE TIMES DAILY WITH MEALS, First dose (after last modification) on Mon03/14/17 at 1700, Until Discontinued, Routine 1611 (Given - Provider: Shorty Hanson LPN) 0902 (Given - Provider: Kathy Jha RN)1200 (Due) Continuous Medication Order 03/13/2017 03/14/2017 03/15/2017 sodium chloride 0.9% infusion IV, at 100 mL/hr, CONTINUOUS, Starting on Mon03/08/17 at 0415, Until Mon03/08/17 at 1414, Routine, IVF NS at 100 ml/hr x 1L PRN Medication Order 03/13/2017 03/14/2017 03/15/2017 acetaminophen (TYLENOL) tablet 650 mg 650 mg, Oral, EVERY 4 HOURS PRN, Starting on Mon03/03/17 at 1944, Until Mon03/15/17 at 1429, Pain, Routine zlxipavxrq-ndgqcyv-nszskhedudkrw (CEPACOL) lozenge 1 Each 1 Each, Mouth/Throat, EVERY 3 HOURS PRN, Starting on 03/12/17 at 0526, Until Mon03/15/17 at 1429, Sore Throat, Routine bisacodyl (DULCOLAX) rectal suppository 10 mg 10 mg, Rectal, DAILY PRN, Starting on Mon03/03/17 at 1944, Until Mon03/15/17 at 1429, Constipation, Routine diphenhydrAMINE (BENADRYL) tablet 25 mg 25 mg, Oral, EVERY 6 HOURS PRN, Starting on Mon03/03/17 at 1944, Until Mon03/15/17 at 1429, Itching, Routine magnesium hydroxide (MILK OF MAGNESIA) oral suspension 30 mL 30 mL, Oral, DAILY PRN, Starting on 03/06/17 at 0523, Until Mon03/15/17 at 1429, Constipation, Routine ondansetron (ZOFRAN ODT) tablet 4 mg 4 mg, Oral, EVERY 6 HOURS PRN, Starting on Mon03/03/17 at 1944, Until Mon03/15/17 at 1429, Nausea/Emesis, Routine oxyCODONE-acetaminophen (PERCOCET) 5-325 mg per tablet 1 Tablet 1 Tablet, Oral, EVERY 4 HOURS PRN, Starting on Mon03/03/17 at 1944, Until Mon03/15/17 at 1429, Pain, Moderate, Routine documented in this encounter Care Teams Desk Manager Relationship Specialty Start Date End Date Gadiel Zavala MD [address] [place] [phone] PCP - General Family Practice 03/03/17 documented as of this encounter
--- OUTSIDE RECORDS SUMMARY | 2024-04-17 11:46 | XMS_ITS | Encounter Summary ---
Author Organization [facility] Address [address] [place] [address] Care Team Providers Care Tapper Helper Name Role Phone Gadiel Zavala MD Primary Care Provider [phone] Encounter Details Date Type Department Care Team (Latest Contact Info) Description 11/07/2017 1:30 PM CDT - 11/07/2017 11:59 PM CDT Hospital Encounter [facility] [address] [place] [address] Mylene Gutierrez MD [address] [facility] [address] [place] [address] -[phone] (Work) Discharge Disposition: Home or Self Care Anesthesia Record Procedure Summary Procedure Name Responsible Anesthesiologist Anesthesia Start Time Anesthesia Stop Time SPINAL CORD DORSAL COLUMN STIMULATOR REMOVAL (Back) Dale Hoang MD 11/16/17 1153 11/16/17 1307 Events Date Time Event Comment 11/16/2017 1017 AN Equip Check Anesthesia eq uipment and materials checked in accordance with local policy. 1153 An Start 1157 An Start Data 1157 Pre-Induction Immediate pre- induction anesthetic assessment performed. Vital signs as noted on graphic. 1204 An Induction 1207 An Intubation 1212 Anesthesia Ready 1247 1259 An Extubation Emergence unev entful Awake, spontaneous respirations. Adequate muscle strength demonstrated Adequate tidal volume. Orapharynx suctioned. Extubated with positive pressure ventilation. 1300 an stop data 1307 An Stop Meds * Agents No agents on file. * Blood No blood administrations on file. Lines, Drains, and Airways Type Details Placement Removal Peripheral IV Pre-Hospital Start: No; Orientation: Left, Right; Device: Angiocath; Gauge: 18 gauge; Insertion Attempts: 1; Patient Tolerance: tolerated well, appears comfortable; Pain Prevention: intradermal injection; Removal Indication: no longer indicated; Removal Interventions: pressure dressing, catheter intact, direct pressure 11/16/17 0958 by Michelle Menchaca RN 11/16/17 1538 by Malena Guillaume RN Endotracheal Airway Type: ETT, Oral (abbe y easy atraumatic glidescope intubation; neck held in neutral position; no manipulation); Cuff Pressure: minimal leak technique, minimal occluding volume, cuff inflated; Size: 6; Site: mouth; Attempts: 1; FOV: I; cm: 21; Device: Video Laryngoscope, Curved Blade; Blade: 3; Secured: secured with tape; Verification: Auscultated bilateral breath sounds, Equal chest movement, Continuous waveform capnography 11/16/17 1207 by Izabela Edmond, NEGATIVE CUTTER 11/16/17 1259 by Izabela Edmond, NEGATIVE CUTTER Adult Incision 11/16/17; 1256; surgical incision; Left; flank; 11/17/17; 0344 11/16/17 1256 by Keith Mcfarland RN 11/17/17 0344 by PROVIDER, DISCHARGE PATIENT documented in this [...] Sign Reading Time Taken Comments Blood Pressure 151/96 11/07/2017 1:46 PM CDT Pulse 77 11/07/2017 1:46 PM CDT Temperature - - Respiratory Rate - - Oxygen Saturation 98% 11/07/2017 1:46 PM CDT Inhaled Oxygen Concentration - - Weight 60.3 kg (133 lb) 11/07/2017 1:46 PM CDT Height 158.8 cm (5' 2.5 ) 11/07/2017 1:46 PM CDT Body Mass Index 23.94 11/07/2017 1:46 PM CDT documented in this encounter Medications at Time of Discharge Medication Sig Dispensed Refills Start Date End Date metoprolol succinate (TOPROL XL) 100 mg Extended Release 24 hour tablet Take 100 mg by mouth daily. celecoxib 200 mg capsule Take 200 mg by mouth 2 times daily. omeprazole (PriLOSEC) 40 mg Capsule, Delayed Release(E.C.) Take 40 mg by mouth 2 times daily. levothyroxine 50 mcg tablet Take 50 mcg by mouth daily principal associate. atorvastatin (LIPITOR) 20 mg tablet Take 20 mg by mouth daily. lisinopril (PRINIVIL) 40 mg tablet Take 40 mg by mouth daily at bedtime. FLUoxetine (PROzac) 40 mg capsule Take 40 mg by mouth daily at bedtime. cyanocobalamin (VITAMIN B-12) 100 mcg tablet Take 3,000 mcg by mouth daily . calcium carbonate 600 mg-vitamin D3 20 mcg (800 unit) chewable tablet Take by mouth daily. eszopiclone 3 mg tablet Take 5 mg by mouth nightly as needed for Insomnia. oxyCODONE-acetaminophen (PERCOCET) 5-325 mg tablet Take 1-2 [...] 4 hours as needed for Pain. 03/01/2017 DULoxetine (CYMBALTA) 60 mg Capsule, Delayed Release(E.C.) Take 60 mg by mouth daily at bedtime. oxyCODONE-acetaminophen (PERCOCET) 5-325 mg tablet Take 1 Tablet by mouth every 4 hours as needed for Pain, Moderate. Max Daily Amount: 6 Tablets 30 Tablet 03/14/2017 11/16/2017 documented as of this encounter OR Notes * Anesthesia PAT Evaluation - Yuridia Young NP - 11/07/2017 3:01 PM CDT Pre-Procedure Anesthesiology Consultation and Evaluation (PACE) Service 11/07/2017 3:01 PM Name: Kaitlin Bond Age: 67 y.o. Sex: female CSN: [id number] Procedure: REMOVAL OF SPINAL CORD STIMULATOR IN LATERAL DECUBITIS POSITION Surgeon: Matt Allergies Allergen Reactions ??? Adhesive Rash ??? Adhesive Tape-Silicones Rash Reaction: RASH ??? Gadolinium-Containing Contrast Media Hives ??? Latex Other (See Comments) Pt states no. Is fine with gloves. Only allergy is to adhesive. ??? Magnevist [Gadopentetate Dimeglumine] Hives Pre-Surgery Instructions: Medication Instructions ??? metoprolol succinate (TOPROL XL) 100 mg Extended Release 24 hour tablet Continue taking as prescribed ??? celecoxib (CeleBREX) 200 mg capsule Stop taking 5 days prior to surgery ??? oxyCODONE-acetaminophen (PERCOCET) 5-325 mg tablet Continue taking as prescribed ??? omeprazole (PriLOSEC) 40 mg Capsule, Delayed Release(E.C.) Take morning of surgery with sip of water ??? levothyroxine 50 mcg tablet Take morning of surgery with sip of water ??? atorvastatin (LIPITOR) 20 mg tablet Continue taking as prescribed ??? lisinopril (PRINIVIL) 40 mg tablet Continue taking as prescribed ??? FLUoxetine (PROzac) 40 mg capsule Take morning of surgery with sip of water ??? cyanocobalamin (VITAMIN B-12) 100 mcg tablet Stop taking 1 week prior to surgery ??? calcium-cholecalciferol, D3, (CALTRATE 600 + D) 600 mg (1,500 mg)-800 unit Tablet, Chewable tablet Stop taking 1 week prior to surgery ??? eszopiclone (LUNESTA) 3 mg Tablet Continue taking as prescribed ? Patient Active Problem List Diagnosis Date Noted ??? Cervical myelopathy ??? Fall ??? Essential [...] TUBAL LIGATION ??? KYPHOPLASTY, LUMBAR 2016 ??? [place] CERV SPINE FUSN,ANTER,BELOW C2 N/A 02/16/2017 CERVICAL DISCECTOMY FUSION 1 LEVEL ANTERIOR, C3-4 performed by Mylene Gutierrez MD at [facility] MAIN Social History Substance Use Topics ??? Smoking status: Former Smoker Packs/day: 0.25 Years: 5.00 Types: Cigarettes Quit date: 1988 ??? Smokeless tobacco: Never Used Comment: 4 per day ??? Alcohol use Yes Comment: 1-2 times per month 1 drink No family history on file. Previous Anesthesia Problems/Concerns: Post-operative nausea & vomiting (PONV) History of PONV Yes Motion sickness: Yes Review of Systems Cardiovascular: negative for chest pain, chest pressure/discomfort, palpitations, shortness of breath/dyspnea, syncope. History of HTN and hyperlipidemia. Patient walks with her walker in the house. Patient will walk through the store with her walker. Patient doesn't do stairs, she falls quite a bit because her legs are weak. Respiratory: negative,Snoring - No, ROSETTA - No Gastrointestinal: positive for reflux symptoms and PUD. Genitourinary:negative. Musculoskeletal: positive for neck pain and back pain. History of 1 level cervical fusion 02/14 andback surgery. 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 Endocrine Hypothyroidism. Hepatic: negative Hematologic: negative Onc: negative PHYSICAL EXAM BP (!) 151/96 (BP Location: Left arm, Patient Position (BP): Sitting) Pulse 77 Ht 5' 2.5 (1.588 m) Wt 60.3 kg (133 lb) SpO2 98% BMI 23.94 kg/m?? Weight: Weight: 60.3 kg (133 lb) (11/07/17 1346) Height: Ht Readings from Last 1 Encounters: 11/07/17 5' 2.5 (1.588 m) BMI: Body mass index is 23.94 kg/m??. General Appearance: Alert, oriented, no acute distress Airway: normal range of motion; Airway Class: II (soft palate, uvula, fauces visible); Special Considerations None Dentition: good and caps/crowns Lungs: clear to auscultation bilaterally, normal respiratory [...] AM Lab Results Component Value Date/Time SODIUM 132 (L) 03/17/2017 05:07 AM POTASSIUM 4.5 03/17/2017 05:07 AM CHLORIDE 96 (L) 03/17/2017 05:07 AM CO2 28 03/17/2017 05:07 AM CALCIUM 10.0 03/17/2017 05:07 AM BUN 13 03/17/2017 05:07 AM CREATININE 0.60 03/17/2017 05:07 AM GLUCOSE 108 (H) 03/17/2017 05:07 AM ANION GAP 10 03/14/2017 05:30 AM BUN/CREAT RATIO NOT APPLICABLE 03/17/2017 05:07 AM No results found for: INR, PT, PROTIMEPOC No results found for: HCGURPOC, HCGQUALUR, HCGQUAL, HCGQUANT, HCGINTACT EKG: Sending for EKG done 03/2017 Other Studies/Considerations: None 02/16/[address] Luis Duque Type: ETT, Oral; Cuff Pressure: minimal leak technique, minimal occluding volume, cuff inflated; Size: 7; Site: mouth; Attempts: 1; FOV: I; cm: 19; Device: Video Laryngoscope (Glidescope used in order to keep neck in line prior to ACDF); Blade: 3; Secured: secured with tape; Verification: Auscultated bilateral breath sounds, Equal chest movement, Continuous waveform capnography Risks/Alternatives discussed. Questions solicited and answered. Yes Postop pain management discussed yes Smoking/Tobacco Counseling: None Recommendations:Nausea prophylaxis ATTESTATIONS (Not in a hospital admission) I obtained, updated or reviewed the patient's current medications including dosage, frequency, and route of administration. This information was obtained directly from the patient or outbound call center representative or caregiver or another available healthcare resource and updated in [employer] EMR. History Smoking Status ??? Former Smoker ??? Packs/day: 0.25 ??? Years: 5.00 ??? Types: Cigarettes ??? Quit date: 1988 Smokeless Tobacco ??? Never Used Comment: 4 per day Patient screened for tobacco use and identified as a Non-User of tobacco. REPORT AND NECESSARY FOLLOW-UP History and physical performed in [facility]; tests (ECG, blood work) reviewed. Abnormal Results Found: no Further Testing or Evaluation Required: no Final [facility] Review: May proceed with procedure/surgery: no, sending for EKG done on 03/2017. Stop bang score is 3 Yuridia Young NP Addendum 11/08/17 11/16/16 PFT Essentially this is a normal pulmonary function test. 09/24/15 Stress Test Test sensitivity lowered due to failure to achieve 85% of predicted maximal heart rate. No EKG evidence of ischemia at 4.7 METS and 67%MPHR. Resting EKG showed-sinus bradycardia with long QT interval. Final [facility] Review: May proceed with procedure/surgery: YES, but still requesting EKG from Dr. Carson Elias. Yuridia Young FIELD CARE MANAGER Addendum 11/08/[address] found in Dr. Elias's office. Final [facility] Review: May proceed with procedure/surgery: YES Yuridia Young FIELD CARE MANAGER * Simran-OP - Luz Elena Llanos RN - 11/07/2017 2:40 PM CDT Images from the original note were not included. [facility] Pre-Procedure Instructions PACE PACE Name: Kaitlin Bond Age: 67 y.o. Please report to the: [] Surgery Center [] [facility] (2nd Floor) [] Other: Date of Procedure: 11/16/2017 Arrive at the time your surgeon's office has instructed. If you are unsure of the arrival time, please call your surgeon's office 24-48 hours before your surgery to confirm. PLEASE NOTIFY your surgeon promptly if you begin to feel ill prior to your surgery. A cold, sore throat, fever, or flu may require postponing the surgery to another date for your safety. Please follow these important instructions PRE-PROCEDURE DIETARY INSTRUCTIONS ?? Do not eat solid food after midnight prior to your procedure. This includes but not limited to any milk product, puddings, and applesauce. ?? Do not consume energy drinks containing high levels of caffeine after midnight prior to your procedure. ?? You may consume clear fluids up until 4 hours prior to your scheduled procedure time or 2 hours prior to arrival. ?? Limit the clear fluid intake to 12 fluid ounces or equivalent to a soda can. ?? Examples of clear liquids include: Water; Gatorade or similar clear fluids with electrolytes arepreferred; carbonated beverages such as soda or sparkling water; tea and black coffee (do not use milk or cream), clear fruit juices without pulp such as apple, cranberry or grape are allowed yet discouraged due to the acidity of the juices. WITHIN 24 HOURS PRIOR TO SURGERY ?? SHOWER AND SHAMPOO before bed and the morning of surgery (using provided soap if instructed or using anti-bacterial soap on operative site). ?? DO NOT SHAVE near the surgical area for 24 hours prior. ?? After showering the morning of surgery, DO NOT APPLY body lotions, deodorants, colognes, lipstick, make-up, hairspray, mousse, gel, or powder. ?? DO NOT WEAR JEWELRY (rings, earrings, and body piercings), wigs, or hair pieces to the hospital. ?? SMOKING AND USE OF TOBACCO PRODUCTS We recommend patients abstain from smoking for as long as possible before and after surgery, but even quitting for a brief period is still beneficial. DO NOT SMOKE OR USE TOBACCO PRODUCTS 12 hours before arrival to hospital. ?? PLEASE DO NOT EAT anything--including GUM, CANDY, or MINTS--after midnight. You may BRUSH YOUR TEETH but do not swallow water. DAY OF SURGERY INSTRUCTIONS ?? YOU WILL NEED A RESPONSIBLE ADULT TOOL SHAPER SETUP OPERATOR UPON DISCHARGE. YOUR SURGERY MAY BE CANCELLED IF YOU DONOT HAVE A RESPONSIBLE ADULT TOOL SHAPER SETUP OPERATOR TO TAKE YOU HOME. ?? BRING PRESCRIBED INHALERS to the hospital with you but DO NOT BRING ANY OTHER MEDICATIONS [facility] (unless otherwise instructed). ?? WEAR comfortable, loose fitting clothes to the hospital that will fit over dressings after your surgery. ?? WEAR GLASSES instead of contact lenses to the hospital; bring a case if possible for glasses, dentures, and hearing aids as you will be asked to remove these items before your surgery. ?? 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 DO NOT BRING VALUABLES or large amounts of melgar with you to the hospital. ?? BRING any medical devices you need to the hospital, including CPAP, BIPAP, or WOUND VAC machines ADVANCED PLANNING FOR MEDICATION USE STOP Seven (7) DAYS PRIOR TO SURGERY the use of all vitamins, herbal supplements, and other alternative substances. STOP Five (5) DAYS PRIOR TO SURGERY the use of any UNPRESCRIBED Aspirin, Excedrin and NSAIDs which include Motrin, Ibuprofen, Aleve, and Naprosyn. CURRENT MEDICATION LIST Pre-Surgery Instructions: Medication Instructions ??? metoprolol succinate (TOPROL XL) 100 mg Extended Release 24 hour tablet Continue taking as prescribed ??? celecoxib (CeleBREX) 200 mg capsule Stop taking 5 days prior to surgery ??? oxyCODONE-acetaminophen (PERCOCET) 5-325 mg tablet Continue taking as prescribed ??? omeprazole (PriLOSEC) 40 mg Capsule, Delayed Release(E.C.) Take morning of surgery with sip of water ??? levothyroxine 50 mcg tablet Take morning of surgery with sip of water ??? atorvastatin (LIPITOR) 20 mg tablet Continue taking as prescribed ??? lisinopril (PRINIVIL) 40 mg tablet Continue taking as prescribed ??? FLUoxetine (PROzac) 40 mg capsule Take morning of surgery with sip of water ??? cyanocobalamin (VITAMIN B-12) 100 mcg tablet Stop taking 1 week prior to surgery ??? calcium-cholecalciferol, D3, (CALTRATE 600 + D) 600 mg (1,500 mg)-800 unit Tablet, Chewable tablet Stop taking 1 week prior to surgery ??? eszopiclone (LUNESTA) 3 mg Tablet Continue taking as prescribed documented in this encounter Plan of Treatment Not on file documented as of this encounter Procedures Procedure Name Priority Date/Time Associated Diagnosis Comments BASIC METABOLIC PANEL Routine 11/07/2017 2:27 PM CDT EDUCATION ANESTHESIA (ADULT) Routine 11/07/2017 2:08 PM CDT documented in this encounter Results * (ABNORMAL) BASIC METABOLIC PANEL (11/07/2017 2:27 PM CDT) SODIUM 133(L) 136 - 145 mmol/L 11/07/2017 8:02 PM [facility] POTASSIUM 4.3 3.5 - 5.0 mmol/L 11/07/2017 8:02 PM T [facility] CHLORIDE 92(L) 98 - 107 mmol/L 11/07/2017 8:02 PM T [facility] CO2 27 22 - 29 mmol/L 11/07/2017 8:02 PM T [facility] CALCIUM 9.8 8.6 - 10.2 mg/dL 11/07/2017 8:02 PM T [facility] BUN 12 8 - 23 mg/dL 11/07/2017 8:02 PM T [facility] CREATININE 0.60 0.51 - 0.95 mg/dL 11/07/2017 8:02 PM T [facility] GLUCOSE 84 74 - 99 mg/dL 11/07/2017 8:02 PM T [facility] GFR >60 >=60 mL/min/1.7 3 sq meter 11/07/2017 8:02 PM [facility] Comment: eGFR has not been validated [...] GFR, >60 >=60 mL/min/1.7 3 sq meter 11/07/2017 8:02 PM CDT [facility] ANION GAP 14 8 - 16 mmol/L 11/07/2017 8:02 PM CDT [facility] Blood Venipuncture / Unknown 11/07/2017 2:27 PM CDT 11/07/2017 4:45 PM CDT Layla Casillas MD CHEMISTRY ORDERABLES Performing Organization Address City/[facility] Co de Phone Number [facility] CLIA# [id number] 5 [employer] [facility] [place] [address] * EDUCATION ANESTHESIA (ADULT) - LU (11/07/2017 2:08 PM CDT) Education Name ANESTHESIA (ADULT) LU EDUCATION INTERFACE Education URL [email or web address] LU EDUCATION INTERFACE EDUCATION ACCESS CODE [id number] LU EDUCATION INTERFACE EDUCATION ISSUE DATE Nov 07, 2017 LU EDUCATION INTERFACE EDUCATION START DATE LU EDUCATION INTERFACE EDUCATION COMPLETED DATE This program was not started and flagged as on: Dec 08, 2017 LU EDUCATION INTERFACE EDUCATION EXPIRATION DATE Dec 07, 2017 LU EDUCATION INTERFACE EDUCATION MESSAGE EVENT LU EDUCATION INTERFACE 11/07/2017 2:08 PM CDT Mylene Gutierrez MD EXTERNAL EDUCATION O RDERABLES Performing Organization Address City/[facility]/ZIP Co de Phone Number LU EDUCATION INTERFACE documented in this encounter Visit Diagnoses Not on filedocumented in this encounter Care Teams Tapper Helper Relationship Specialty Start Date End Date Gadiel Zavala MD [address] [place] [address] PCP - General Family Practice 03/03/17 documented as of this encounter
--- OUTSIDE RECORDS SUMMARY | 2024-04-17 11:46 | XMS_ITS | Encounter Summary ---
Author Organization [facility] Address 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 Name Role Phone [facility], External Provider Primary Care Provider U navailable Reason for Visit * Auth/Cert Specialty Diagnoses / Procedures Referred By Delores t Referred To Contact General Surgery Diagnoses CERVICAL SPONDYLOSIS Procedures CERVICAL DISCECTOMY FUSION 1 LEVEL ANTERIOR [facility] [address] [place] [address] Referral ID Status Reason Start Date Expiration Date Visits Re quested Visits Authorized [id number] 1 1 Encounter Details Date Type Department Care Team (Latest Contact Info) Description 02/16/2017 10:39 AM CDT - 02/17/2017 10:41 AM CDT Hospital Encounter [facility] [place] [address] [place] [address] Mylene Gutierrez MD [address] [facility] [address] -[phone] (Work) Cervical stenosis of spine Discharge Disposition: Home [...] Sign Reading Time Taken Comments Blood Pressure 162/93 02/17/2017 7:30 AM CDT Pulse 84 02/17/2017 7:30 AM CDT Temperature 37.1 ??C (98.7 ??F) 02/17/2017 7:30 AM CD T Respiratory Rate 16 02/17/2017 7:30 AM CDT Oxygen Saturation 100% 02/17/2017 7:30 AM CDT Inhaled Oxygen Concentration - - Weight 62.7 kg (138 lb 3.2 oz) 02/16/2017 10:49 AM CDT Height 160 cm (5' 3 ) 02/16/2017 10:49 AM CDT Body Mass Index 24.48 02/16/2017 10:49 AM CDT documented in this encounter Discharge Instructions * Discharge Instructions* Maggy Willard PA - 02/16/2017 12:30 PM CDT Thank you for choosing [facility] for your care! The following is a list of instructions, from your provider, to follow upon your discharge to ensure you have the optimal recovery from your recent injury or surgery. Anterior Cervical Discectomy and Fusion: What to Expect at Home Your Recovery Follow-up care is a cotton part of your treatment and safety. Be sure to make and go to all appointments, and call your doctor if you are having problems. If you do not already have a follow-up appointment made, call Dr. Gutierrez office in the next 1-3 days to make follow up appointment for 4 weeks at . It is also a good idea to know your test results and keep a list of the medicines you take. You can expect your neck to feel stiff or sore after surgery. This should improve in the weeks after surgery. But it may take 4 to 6 months for you to get better completely. You may have trouble sitting or standing in one position for very long and may need pain medicine in the weeks after your surgery. It may take 4 to 6 weeks to get back to your usual activities, but it may depend on what kind of surgery you had. Your throat will feel sore and it may be difficult to swallow for the first 3 days after your surgery. As long as you can get liquids down without difficulty, this should slowly improve, otherwise call our office or seek medical attention if it becomes increasingly difficult to get anything down including liquids. Avoid hot liquids for first 3-5 days. Soothing foods/liquids such as jello, pudding, and luke warm soups are recommended until swallowing improves. Staying elevated will also help, it's advised you keep propped up at while sleeping to help reduce the swelling. You may use an ice pack directly on your incision or around it on the front of your neck, using a cloth to protect your skin; and a heating pad to the back of your neck as needed. Do not use over the counter anti-inflammatory medications (Ibuprofen, Motrin, Aleve, Advil, etc) Taking these meds after having a fusion can delay fusion rates, we recommend you avoid them for the first 3 months after your surgery[address] Dr. Gutierrez may advise you to work with a physical therapist to strengthen the muscles around your neck and back - this will be discussed at your follow - up appointments. The pain or numbness you werehaving in your arms before surgery should get better or go away completely. This care sheet gives you a general idea about how long it will take for you to recover. But each person recovers at a different pace. Follow the steps below to get better as quickly as possible. How can you care for yourself at home? Activity ?? Rest when you feel tired. Getting enough sleep will help you recover. ?? Try to walk each day. Start by walking a little more than you did the day before. Bit by bit, increase the amount you walk. Walking boosts blood flow and helps prevent pneumonia and constipation. Walking may also decrease your muscle soreness after surgery. ?? No lifting anything that is more that 5 pounds. This may include heavy grocery bags and milk containers, a heavy briefcase or backpack, cat litter or dog food bags, a child, or a vacuum supervisor housecleaner. ?? Avoid strenuous activities, such as bicycle riding, jogging, weightlifting, or aerobic exercise,until your doctor says it is okay. ?? Do not drive until your follow-up visit after your surgery, or until your doctor says it is okay. ?? Avoid taking long car trips for 2 to 4 weeks after surgery. Your neck may become tired and painful from sitting too long in one position. ?? You will probably need to take 4 to 6 weeks off from work. It depends on the type of work you doand how you feel. ?? You may have sex as soon as you feel able, but avoid positions that put stress on your neck or cause pain. Diet ?? You can eat your normal diet. If your stomach is upset, try bland, low-fat foods like plain rice, broiled chicken, toast, and yogurt. ?? Drink plenty of fluids. If you have kidney, heart, or liver disease and have to limit fluids, talk with your doctor before you increase the amount of fluids you drink. ?? You may notice that your bowel movements are not regular right after your surgery. This is common. Try to avoid constipation and straining with bowel movements. You may want to take a fiber supplement every day. If you have not had a bowel movement after a couple of days, ask your doctor about taking a mild laxative. Medicines ?? Take pain medicines exactly as directed. ?? If Dr. Gutierrez gave you a prescription medicine for pain, take it as prescribed. ?? Do not take two or more pain medicines at the same time unless the doctor told you to. Many painmedicines have acetaminophen, which is Tylenol. Too much acetaminophen (Tylenol) can be harmful. ?? If you think your pain pill is making you sick to your stomach: 1. Take your pills after meals (unless your doctor has told you not to). 2. Ask your Dr. for a different pain pill. Incision care ?? Remove your dressing 48hours after your surgery. Ok to shower and get the incision wet. Do not overtly wash your incision. When done, pad dry, leave open to air thereafter. Avoid creams and ointments directly on your incision. ?? Your sutures in the incision will dissolve and fall out on their own. ?? Keep the area clean and dry. You may cover it with a gauze bandage if it weeps or rubs against clothing; if you choose to do this, change the dressing every day. Other instructions ?? Use a heating pad, hot water bottle, or gentle massage on your back to reduce stiffness. Avoid putting heat on your incision. When should you call for help? Call 911 anytime you think you may need emergency care. For example, call if: ?? You pass out (lose consciousness). ?? You have sudden chest pain and shortness of breath, or you cough up blood. ?? You cannot swallow. ?? You have severe pain in your neck or back. Call your Dr. or seek immediate medical care if: ?? You have pain that does not get better after you take pain pills. ?? You have loose stitches, or your incision comes open. ?? You have blood or fluid draining from the incision. ?? You have signs of infection, such as: ?? Increased pain, swelling, warmth, or redness. ?? Red streaks leading from the site. ?? Pus draining from the site. ?? Swollen lymph nodes in your neck or armpits. ?? A fever. ?? You have severe pain in your arms. ?? You have new or increased weakness or numbness in your arms. Watch closely for any changes in your health, and be sure to contact your doctor if: ?? You do not have a bowel movement after taking a laxative. documented in this encounter Medications at Time of Discharge Medication Sig Dispensed Refills Start Date End Date omeprazole (PriLOSEC) 40 mg Capsule, Delayed Release(E.C.) Take 40 mg by mouth 2 times daily. levothyroxine 50 mcg tablet Take 50 mcg by mouth daily transistor tester. atorvastatin (LIPITOR) 20 mg tablet Take 20 mg by mouth daily. lisinopril (PRINIVIL) 40 mg tablet Take 40 mg by mouth daily at bedtime. FLUoxetine (PROzac) 40 mg capsule Take 40 mg by mouth daily at bedtime. eszopiclone 3 mg tablet Take 5 mg by mouth nightly as needed for Insomnia. DULoxetine (CYMBALTA) 60 mg Capsule, Delayed Release(E.C.) Take 60 mg by mouth daily at bedtime. cyanocobalamin (VITAMIN B-12) 100 mcg tablet Take 3,000 mcg by mouth daily . calcium carbonate 600 mg-vitamin D3 20 mcg (800 unit) chewable tablet Take by mouth daily. diazePAM (VALIUM) 5 mg tablet Take 1 Tablet (5 mg) by mouth every 8 hours as needed for Spasm or Discomfort. Do not take with sleeping aid/Lunesta. 60 Tablet 02/17/2017 03/14/2017 oxyCODONE-acetaminophen (PERCOCET) 7.5-325 mg Tablet Take 1 Tablet by mouth every 8 hours as needed for Pain, Moderate. 03/03/2017 documented as of this encounter Progress Notes * Jayne Lovell - 02/17/2017 10:39 AM CDT Provided discharge instructions; addressed questions; patient verbalized understanding. * Elaine Dubon PA - 02/17/2017 8:52 AM CDT Neurosurgery Progress Note 1 Day Post-Op Procedure(s) (LRB): CERVICAL DISCECTOMY FUSION 1 LEVEL ANTERIOR, C3-4 (N/A) C/o dysphagia, able to get soft food down. Active Hospital Problems Diagnosis ??? Cervical stenosis of spine Resolved Hospital Problems Diagnosis Date Resolved No resolved problems to display. Vitals: 02/16/17 1756 02/16/17 2220 02/17/17 0302 02/17/17 0730 BP: (!) 166/89 (!) 179/104 (!) 159/81 (!) 162/93 BP Location: Right arm Right arm Right arm Left arm Patient Position (BP): Supine Supine Supine Sitting Pulse: (!) 104 99 83 84 Resp: 14 16 16 16 Temp: 98.1 ??F (36.7 ??C) 98.6 ??F (37 ??C) 97.4 ??F (36.3 ??C) 98.7 ??F (37.1 ??C) TempSrc: Temporal Temporal Temporal Temporal SpO2: 96% 98% 95% 100% Weight: Height: PE: Awake, Alert, Ox3. PERRL. Speech intact. Follows all commands. Moves all extremities full/symmetric. Sensory intact to LT. Strength 5/5 tessa UE's. Incision is clean/dry/intact Recent Labs 02/14/17 1006 WBC 6.1 HGB 13.0 HCT 38.6 PLT 351* Impression/Plan: Pain--controlled, patient to resume Percocet given by PM doctor. Dc with valium script. Discussed post-op expectations and instructions. Discharge to home today. Elaine Dubon PA-C Pgr: [phone] * Maggy Willard PA - 02/16/2017 2:40 PM CDT [place], [place] [address] Neurosurgery Brief Operative Note Kaitlin Bond 1950 [id number] Today's Date: 02/16/2017 Pre-op Dx: cervical stenosis Post op Dx: Same Surgery Performed: Procedure(s) (LRB): CERVICAL DISCECTOMY FUSION 1 LEVEL ANTERIOR, C3-4 (N/A) Specimen: None EBL: 20 mL's Anesthesia: General Complications: None Patient was transferred to the post operative recovery unit in stable condition. Surgeon: Dr. Matt M.D. Assist: Maggy Willard PA-C documented in this encounter H&P Notes * Maggy Willard PA - 02/16/2017 12:38 PM CDT Pre-surgery Note Kaitlin Bond is a 66 y.o. female with cervical stenosis PE update: Chest: regular rate/rhythm Lungs: even/unlabored breathing There have been no significant changes to patient's clinical exam or status since H&P or last progress note. Patient's cardiopulmonary status is stable and surgical consent has been reviewed and in the chart. All questions of the patient and family have been answered to their satisfaction and to their level of understanding. Risks of laryngeal nerve palsy, hoarseness, recurrent disease, need for additional treatment, infection, paralysis, hematoma, CSF leak have been discussed in detail. The patient and family consent to surgery and wish to proceed. Plan: ACDF C3/4 ZEHRA Emerson 02/16/2017 documented in this encounter OR Notes * Operative Report - Mylene Gutierrez MD - 02/16/2017 4:20 PM CDT [place], [place] [address] Operative Report CSN: [id number] DATE OF SERVICE: 02/16/2017 SURGEON Mylene Gutierrez MD PREOPERATIVE DIAGNOSIS Cervical stenosis. POSTOPERATIVE DIAGNOSIS Cervical stenosis. OPERATION NAME C3-4 anterior cervical diskectomy, C3-4 arthrodesis, C3-C4 instrumentation, intraoperative microscope use, and intraoperative fluoroscopy. ANESTHESIA General. MAYONNAISE MIXER ZEHRA Emerson, who participated in both the transportation and positioning the patient, and also participated throughout the procedure providing retraction, suction, and irrigation. INSTRUMENTATION Omari Spine Aviator plate, a 12 mm plate was used along with 3, 4 x 14 mm screws and a single 4 x14 mm self-drilling screw. DESCRIPTION OF PROCEDURE The patient was brought to the operating room and placed in the supine position. General endotracheal anesthesia was induced. Following that, her arms were papoosed to the side and shoulders were gently taped to the foot of the bed, and the anterior aspect of her cervical spine was then marked at approximately the C3-4 level using intraoperative fluoroscopy. She was prepped and draped in usual sterile fashion. Local anesthetic was infiltrated. A #10 blade scalpel was used to make the incision. Dissection was performed down to the platysma and supraplatysmal plane was then formed. The platysmawas divided longitudinally and dissection continued in avascular plane medial to the sternocleidomastoid. The anterior aspect of cervical spine was identified. The C3-4 level was verified using intraoperative fluoroscopy. I dissected free the longus colli muscle off the inferior aspect of C3 and superior aspect of C4, and applied self-retaining retractors. I then removed the overlying osteophyte exposing the underlying disc. I then placed Odessa pins in the body of C3 and C4, and applied a slight amount of distraction. I then brought in the microscope. At that time, I then performed a diskectomy first by using a 15 blade scalpel to perform a simple diskectomy along with pituitary and a curette, and then used a drill to remove the significant posterior osteophyte and disk combination that was compressing the thecal sac. Once I decompressed it with the drill, I then used a Kerrison punch exposing the posterior dura and decompressing the thecal sac going all the way on to both foramen. Once the decompression was complete, I removed the microscope from the field. I selected appropriately sized bone graft and tamped it into place. I then selected appropriately sized plate, and placed screws bilaterally at C3 and C4 verifying my instrumentation location using intraoperative fluoroscopy. I then tightened the screws down and applied the director human services recommended locking mechanism. I removed my self-retaining retractor screws. I obtained hemostasis and proceeded to close, first by reap proximating the platysma, then by reapproximating the skin edges, and lastly closing the skin usingskin glue. The patient was extubated without difficulty, taken to the PACU in hemodynamically stable condition. There were no complications for this case. All sponge and needle counts were correct. TQ:MEDQ DID: [id number] Dictated by: Mylene Gutierrez MD documented in this encounter Miscellaneous Notes * Care Plan - Glory Raymond RN - 02/16/2017 9:44 PM CDT Problem: Pain, Potential/Actual Goal: Verbalizes/displays acceptable comfort level or baseline comfort level Outcome: Progressing Problem: Infection Risk/Actual Goal: Infection Risk/Actual: Infection prevention, control, or resolution by discharge Outcome: Progressing Problem: Safety/Fall Goal: Safety/Fall: Absence of fall, injury, harm during hospitalization Outcome: Progressing Problem: Discharge Planning Goal: Identify discharge needs upon admission and through discharge Outcome: Progressing * Care Plan - Mitzi Hackett RN - 02/16/2017 3:05 PM CDT Potential for pain related to surgical/procedural intervention Interventions: Assess level of pain/comfort utilizing verbal/nonverbal pain scales; assess culturalor confucianism indicators attached to pain; administer pain medications as prescribed; utilize non-pharmacologic pain control and comfort measures Expected Outcome: Patient demonstrates and reports adequate pain control Outcome Met: PRN pain medication administered. Potential for anxiety related to surgical intervention Interventions: convey caring/supportive attitude; offer emotional support as needed; provide comfort measures (warm blanket, pillow, quiet environment); allow patient opportunity to verbalize concerns/fears/questions; explore coping behaviors; allow age-specific/special needs family support Expected Outcome: Patient will demonstrate decreased anxiety or adaptive coping strategies Outcome Met: Patient resting quietly. * Care Plan - Kati Mooney RN - 02/16/2017 11:28 AM CDT Knowledge deficit related to procedure/environment Interventions: Assess learning needs and willingness to learn; give clear, concise explanations of the environment and sequence of events surrounding the periop experience; address patient/family questions and concerns; provide teaching as indicated, provide teaching related to postoperative pain assessment utilizing pain scales Expected Outcome: Patient verbalizes or demonstrates awareness/understanding of surgery and perioperative experience Outcome Met: Patient/Family verbalizes understanding of pre op procedures. documented in this encounter Plan of Treatment Not on file documented as of this encounter Procedures Procedure Name Priority Date/Time Associated Diagnosis Comments TELEMETRY REPORT 02/17/2017 4:45 PM CDT XR CERVICAL SPINE 2 OR 3 VIEWS Routine 02/16/2017 5:38 PM CDT XR FLUORO LESS THAN 1 HOUR Routine 02/16/2017 2:32 PM CDT CERVICAL DISCECTOMY FUSION ANTERIOR - 1 LEVEL 02/16/2017 12:32 PM CDT CERVICAL SPONDYLOSIS Case Notes [employer], [id number] PER GENESIS, CPT 26771, 57966, 94863 VERIFICATION BLOOD GROUP Stat 02/16/2017 11:30 AM CDT Acute blood loss anemia documented in this encounter Results * TELEMETRY REPORT (02/17/2017 4:45 PM CDT) Provider Scanning ECG ORDERABLES * XR CERVICAL SPINE 2 OR 3 VIEWS (02/16/2017 5:38 PM CDT) Anatomical Region Laterality Modality Spine Computed Radiogr aphy 02/16/2017 5:38 PM CDT Impressions 02/16/2017 5:46 PM CDT IMPRESSION: As above. DICTATION LOCATION: Location 1, [facility] Narrative 02/16/2017 5:46 PM CDT XR CERVICAL SPINE 2 OR 3 VIEWS DATE: 02/16/2017 5:38 PM HISTORY: Postop COMPARISON: Plain films cervical spine 01/17/2017 FINDINGS: The patient is status post C3-4 anterior plate and screw fixation and interbody graft placement. There is associated anterior soft tissue emphysema. Multilevel cervical spondylosis is again noted. Procedure Note Laith Garcia MD - 02/16/2017 XR CERVICAL SPINE 2 OR 3 VIEWS DATE: 02/16/2017 5:38 PM HISTORY: Postop COMPARISON: Plain films cervical spine 01/17/2017 FINDINGS: The patient is status post C3-4 anterior plate and screw fixation and interbody graft placement. There is associated anterior soft tissue emphysema. Multilevel cervical spondylosis is again noted. IMPRESSION: As above. DICTATION LOCATION: Location [address] [place] [address] Maggy Willard PA-C DIAGNOSTIC IMAGING ORDERABLES * XR FLUORO LESS THAN 1 HOUR (02/16/2017 2:32 PM CDT) Anatomical Region Laterality Modality Computed Radiogr aphy 02/16/2017 2:33 PM CDT Impressions 02/17/2017 8:26 AM CDT IMPRESSION: Intraoperative fluoroscopy was provided during cervical spine surgery. DICTATION LOCATION: Location 1 - [facility] Narrative 02/17/2017 8:26 AM CDT FLUOROSCOPY LESS THAN ONE HOUR DATE: ??02/16/2017 2:32 PM HISTORY: Spine surgery.. COMPARISON: None. FINDINGS: Intraoperative fluoroscopy was provided during cervical spine surgery. 3 spot films were obtained. Fluoroscopy time is 10.7 seconds. The anterior fixation screws and plate are seen at C3-C4. Procedure Note Mallory Cardenas MD - 02/17/2017 FLUOROSCOPY LESS THAN ONE HOUR DATE: 02/16/2017 2:32 PM HISTORY: Spine surgery.. COMPARISON: None. FINDINGS: Intraoperative fluoroscopy was provided during cervical spine surgery. 3 spot films were obtained. Fluoroscopy time is 10.7 seconds. The anterior fixation screws and plate are seen at C3-C4. IMPRESSION: Intraoperative fluoroscopy was provided during cervical spine surgery. DICTATION LOCATION: Location 1 - [facility] Mylene Gutierrez MD DIAGNOSTIC IMAGING O RDERABLES * VERIFICATION BLOOD GROUP (02/16/2017 11:30 AM CDT) ABO GROUP A 02/16/2017 11:30 AM CDT [facility] RH (D) TYPE Positive 02/16/2017 11:30 AM CDT [facility] Blood Venipuncture / Unknown 02/16/2017 11:30 AM CDT 02/16/2017 11:41 AM CDT Carolina Peck MD BLOOD BANK STACY OLIVIA [facility]# [id number] [address] documented in this encounter Visit Diagnoses Diagnosis Cervical stenosis of spine- Primary Spinal stenosis in cervical region Acute blood loss anemia Acute posthemorrhagic anemia documented in this encounter Administered Medications Inactive Administered Medications - up to 3 most recent administrations Medication Order MAR Action Action Date Dose Rate Site atorvastatin (LIPITOR) tablet 20 mg 20 mg, Oral, DAILY AT BEDTIME, First dose on Mon02/16/17 at 2100, Until Discontinued, Routine Given 02/16/2017 9:18 PM CDT 20 mg ceFAZolin (ANCEF) 2,000 mg in dextrose (iso-osmotic) 100 mL IVPB (PREMIX) 2,000 mg, IV, POST-PROCEDURE Q 8 HOURS, 2 doses, First dose on Mon02/16/17 at 2100, Last dose on Mon02/17/17 at 0500, Routine, Post-op - Floor, Antibiotic Indication: Surgical prophylaxis New Bag 02/17/2017 6:02 AM CDT 2,000 mg 200 mL/hr New Bag 02/16/2017 9:07 PM CDT 2,000 mg 200 mL/hr docusate sodium (COLACE) capsule 100 mg 100 mg, Oral, TWO TIMES DAILY, First dose on Juany 02/16/17 at 2100, Until Discontinued, Routine, Post-op - Floor Given 02/17/2017 8:43 AM CDT 100 mg Given 02/16/2017 9:17 PM CDT 100 mg DULoxetine (CYMBALTA) capsule 60 mg 60 mg, Oral, DAILY AT BEDTIME, First dose on Juany 02/16/17 at 2100, Until Discontinued, Routine Given 02/16/2017 9:18 PM CDT 60 mg fentaNYL PF (SUBLIMAZE) 50 mcg/mL injection 25 mcg 25 mcg, IV, POST-PROCEDURE Q 3 MINUTES PRN, Starting on Juany 02/16/17 at 1249, Until Mon02/16/17 at 1528, Pain, For pain 1-3, Routine, PACU Given 02/16/2017 3:03 PM CDT 25 mcg Given 02/16/2017 2:59 PM CDT 25 mcg FLUoxetine (PROzac) capsule 40 mg 40 mg, Oral, DAILY AT BEDTIME, First dose on Juany 02/16/17 at 2100, Until Discontinued, Routine Given 02/16/2017 9:18 PM CDT 40 mg HYDROmorphone (DILAUDID) 1 mg/mL injection 0.5 mg 0.5 mg, IV, EVERY 2 HOURS PRN, Starting on Mon02/16/17 at 1530, Until Mon02/17/17 at 1241, Pain (See admin instructions), Routine, Post-op - Floor Given 02/17/2017 2:58 AM CDT 0.5 mg lactated Ringers solution IV, at 150 mL/hr, PRE-PROCEDURE CONTINUOUS, Starting on Juany 02/16/17 at 1130, Until Juany 02/16/17 at 1528, Routine New Bag 02/16/2017 2:27 PM CDT New Bag 02/16/2017 11:43 AM CDT 150 mL/hr levothyroxine (SYNTHROID) tablet 50 mcg 50 mcg, Oral, DAILY EARLY, First dose on Mon02/17/17 at 0600, Until Discontinued, Routine Given 02/17/2017 6:0 2 AM CDT 50 mcg lisinopril (PRINIVIL) tablet 40 mg 40 mg, Oral, DAILY AT BEDTIME, First dose on Juany 02/16/17 at 2100, Until Discontinued, Routine Given 02/16/2017 9:17 PM CDT 40 mg morphine 4 mg/mL injection 2 mg 2 mg, IV, POST-PROCEDURE Q 5 MINUTES PRN, 2 doses, Starting on Juany 02/16/17 at 1249, Until Juany 02/16/17 at 1504, Pain, Moderate, For pain scale 4-6, Routine, PACU Given 02/16/2017 3:04 PM CDT 2 mg Given 02/16/2017 2:57 PM CDT 2 mg oxyCODONE (ROXICODONE) tablet 10 mg 10 mg, Oral, EVERY 4 HOURS PRN, Starting on Juany 02/16/17 at 1530, Until Mon02/17/17 at 1241, Pain (See admin instructions), Routine, Post-op - Floor Given 02/16/2017 9:18 PM CDT 10 mg pantoprazole (PROTONIX) tablet 40 mg 40 mg, Oral, DAILY BEFORE BREAKFAST, First dose on Mon02/17/17 at 0600, Until Discontinued, Routine Given 02/17/2017 6:02 AM CDT 40 mg sodium chloride 0.9% infusion IV, at 80 mL/hr, CONTINUOUS, Starting on Juany 02/16/17 at 1545, Until Mon02/17/17 at 1241, Routine, Saline lock when patient has good oral intake, Post-op - Floor New Bag 02/16/2017 4:05 PM CDT 80 mL/h r zolpidem (AMBIEN) tablet 5 mg 5 mg, Oral, NIGHTLY PRN, Starting on Juany 02/16/17 at 1540, Until Mon02/17/17 at 1241, Insomnia, Routine documented in this encounter Active and Recently Administered Medications Times are shown in CDT. Scheduled Medication Order 02/15/2017 02/16/2017 02/17/2017 atorvastatin (LIPITOR) tablet 20 mg 20 mg, Oral, DAILY AT BEDTIME, First dose on Juany 02/16/17 at 2100, Until Discontinued, Routine 2117 (Given - Provider: Glory Raymond, LOGAN) ceFAZolin (ANCEF) 2,000 mg in dextrose (iso-osmotic) 100 mL IVPB (PREMIX) (COMPLETED) 2,000 mg, IV, POST-PROCEDURE Q 8 HOURS, 2 doses, First dose on Juany 02/16/17 at 2100, Last dose on Mon02/17/17 at 0500, Routine, Post-op - Floor, Antibiotic Indication: Surgical prophylaxis 2106 (New Bag - Provider: Glory Raymond RN)2136 (Stopped - Provider: Glory Raymond RN) 601 (New Bag - Provider: Glory Raymond RN)0632 (Stopped - Provider: Glory Raymond RN) ceFAZolin (ANCEF) IVPB 2,000 mg (COMPLETED) 2,000 mg, IV, PRE-PROCEDURE ONCE, 1 dose, Starting on Mon02/16/17 at 1129, Until Mon02/16/17 at 1306, Routine, Antibiotic Indication: Surgical prophylaxis 1306 (Given - Provider: RAGHU Montez) docusate sodium (COLACE) capsule 100 mg 100 mg, Oral, TWO TIMES DAILY, First dose on Mon02/16/17 at 2100, Until Discontinued, Routine, Post-op - Floor 2116 (Given - Provider: Glory Raymond RN) 842 (Given - Provider: Jayne Lovell) DULoxetine (CYMBALTA) capsule 60 mg 60 mg, Oral, DAILY AT BEDTIME, First dose on Mon02/16/17 at 2100, Until Discontinued, Routine 2117 (Given - Provider: Glory Raymond RN) FLUoxetine (PROzac) capsule 40 mg 40 mg, Oral, DAILY AT BEDTIME, First dose on Mon02/16/17 at 2100, Until Discontinued, Routine 2117 (Given - Provider: Glory Raymond RN) levothyroxine (SYNTHROID) tablet 50 mcg 50 mcg, Oral, DAILY EARLY, First dose on Mon02/17/17 at 0600, Until Discontinued, Routine 601 (Given - Provid er: Glory Raymond RN) lisinopril (PRINIVIL) tablet 40 mg 40 mg, Oral, DAILY AT BEDTIME, First dose on Mon02/16/17 at 2100, Until Discontinued, Routine 2116 (Given - Provider: Glory Raymond RN) naloxone (NARCAN) 0.4 mg/mL injection 0.1 mg 0.1 mg, IV, SEE ADMIN INSTRUCTIONS, Starting on Mon02/16/17 at 1530, Until Mon02/17/17 at 1241, Routine, Post-op - Floor pantoprazole (PROTONIX) tablet 40 mg 40 mg, Oral, DAILY BEFORE BREAKFAST, First dose on Mon02/17/17 at 0600, Until Discontinued, Routine 0602 (Given - Provid er: Glory Raymond RN) Continuous Medication Order 02/15/2017 02/16/2017 02/17/2017 lactated Ringers solution (CANCELED) IV, at 150 mL/hr, PRE-PROCEDURE CONTINUOUS, Starting on Juany 02/16/17 at 1130, Until Juany 02/16/17 at 1528, Routine 1130 (Canceled Entry - Provider: Jayne Lovell)1143 (New Bag - Provider: Kati Mooney RN)1427 (New Bag - Provider: RAGHU Montez)1451 (Fluid Volume - Provider: RAGHU Montez) sodium chloride 0.9% infusion IV, at 80 mL/hr, CONTINUOUS, Starting on Juany 02/16/17 at 1545, Until Mon02/17/17 at 1241, Routine, Saline lock when patient has good oral intake, Post-op - Floor 1605 (New Bag - Provider: Jayne Lovell)2219 (Stopped - Provider: Glory Raymond RN) PRN Medication Order 02/15/2017 02/16/2017 02/17/2017 bacitracin (BACI-IM) 50,000 Units in sodium chloride 0.9 % irrigation 1,000 mL IRRIGATION (COMPLETED) Irrigation, INTRA-PROCEDURE PRN, 1 dose, Starting on Juany 02/16/17 at 1213, Until Juany 02/16/17 at 1338, prn, Routine, Intra-op, Antibiotic Indication: Surgical prophylaxis 1338 (Given - Provider: Mylene Gutierrez MD - Comment: On field for prn irrigation.) bisacodyl (DULCOLAX) rectal suppository 10 mg 10 mg, Rectal, DAILY PRN, Starting on Juany 02/16/17 at 1530, Until Mon02/17/17 at 1241, Constipation, Routine, Post-op - Floor bupivacaine-EPINEPHrine (SENSORCAINE-EPINEPHRINE) 0.25 %-1:200,000 injection (CANCELED) INTRA-PROCEDURE PRN, Starting on Juany 02/16/17 at 1426, Until Juany 02/16/17 at 1444, Routine, Intra-op 1426 (Given - Provider: Mylene Gutierrez MD) diphenhydrAMINE (BENADRYL) tablet 25 mg 25 mg, Oral, EVERY 8 HOURS PRN, Starting on Juany 02/16/17 at 1530, Until Mon02/17/17 at 1241, Other (See Comment), Histamine Reaction, Routine, Post-op - Floor fentaNYL PF (SUBLIMAZE) 50 mcg/mL injection 25 mcg (CANCELED) 25 mcg, IV, POST-PROCEDURE Q 3 MINUTES PRN, Starting on Juany 02/16/17 at 1249, Until Juany 02/16/17 at 1528, Pain, For pain 1-3, Routine, PACU 1459 (Given - Provider: Mitzi Hackett, LOGAN)1503 (Given - Provider: Mitzi Hackett, LOGAN) HYDROmorphone (DILAUDID) 1 mg/mL injection 0.5 mg 0.5 mg, IV, EVERY 2 HOURS PRN, Starting on Juany 02/16/17 at 1530, Until Mon02/17/17 at 1241, Pain (See admin instructions), Routine, Post-op - Floor 0258 (Given - Provid er: Glory Raymond RN) morphine 4 mg/mL injection 2 mg (COMPLETED) 2 mg, IV, POST-PROCEDURE Q 5 MINUTES PRN, 2 doses, Starting on Juany 02/16/17 at 1249, Until Juany 02/16/17 at 1504, Pain, Moderate, For pain scale 4-6, Routine, PACU 1457 (Given - Provider: Mitzi Hackett RN)1504 (Given - Provider: Mitzi Hackett, LOGAN) ondansetron (ZOFRAN ODT) tablet 4 mg 4 mg, Oral, EVERY 6 HOURS PRN, Starting on Juany 02/16/17 at 1530, Until Mon02/17/17 at 1241, Nausea/Emesis, Routine, Post-op - Floor ondansetron (ZOFRAN) 4 mg/2 mL injection 4 mg 4 mg, IV, EVERY 6 HOURS PRN, Starting on Juany 02/16/17 at 1530, Until Mon02/17/17 at 1241, Nausea/Emesis, Routine, Post-op - Floor oxyCODONE (ROXICODONE) tablet 10 mg 10 mg, Oral, EVERY 4 HOURS PRN, Starting on Juany 02/16/17 at 1530, Until Mon02/17/17 at 1241, Pain (See admin instructions), Routine, Post-op - Floor 2117 (Given - Provider: Glory Raymond RN) oxyCODONE (ROXICODONE) tablet 5 mg 5 mg, Oral, EVERY 4 HOURS PRN, Starting on Juany 02/16/17 at 1530, Until Mon02/17/17 at 1241, Pain (See admin instructions), Routine, Post-op - Floor tiZANidine (ZANAFLEX) tablet 2 mg 2 mg, Oral, EVERY 8 HOURS PRN, Starting on Juany 02/16/17 at 1530, Until Mon02/17/17 at 1241, Spasm, Routine zolpidem (AMBIEN) tablet 5 mg 5 mg, Oral, NIGHTLY PRN, Starting on Juany 02/16/17 at 1540, Until Mon02/17/17 at 1241, Insomnia, Routine documented in this encounter Care Teams Heel Boom Operator Relationship Specialty Start Date End Date [facility], External Provider [address] [place] [address] PCP - General 01/17/17 03/02/17 documented as of this encounter
--- OUTSIDE RECORDS SUMMARY | 2024-04-17 11:46 | XMS_ITS | Encounter Summary ---
Author Organization [facility] Address [address] [place] [address] Care Team Providers Care Manager Infusion Name Role Phone Gadiel Zavala MD Primary Care Provider [phone] Reason for Visit * Auth/Cert Specialty Diagnoses / Procedures Referred By Contac t Referred To Contact General Surgery Diagnoses LOW BACK PAIN Procedures DE IMPLANT SPINAL NEUROSTIM/BOBCAT DRIVER/LABOR SPINAL CORD DORSAL COLUMN STIMULATOR INSERTION [facility] [address] [place] [address] Referral ID Status Reason Start Date Expiration Date Visits Re quested Visits Authorized [id number] 1 1 Encounter Details Date Type Department Care Team (Late st Contact Info) Description 11/16/2017 11:53 AM CDT Anesthesia Event [facility] Operating Room [address] [place] [address] Yulisa Hoang MD [address] [place] [address] Izabela Edmond CRNA [address] [place] [address] Anesthesia Record Procedure Summary Procedure Name Responsible Anesthesiologist Anesthesia Start Time Anesthesia Stop Time SPINAL CORD DORSAL COLUMN STIMULATOR REMOVAL (Back) Yulisa Hoang MD 11/16/17 1153 11/16/17 1307 Events [...] an stop data 1307 An Stop Meds Name Total midazolam PF (VERSED) 1 mg/mL injection 2 mg fentaNYL (SUBLIMAZE) PF 50??mcg/mL injec tion 100 mcg propofol (DIPRIVAN) 10??mg/mL injection 150 mg lidocaine (XYLOCAINE) 2% syringe 40 mg rocuronium (ZEMURON) 10 mg/mL 5 mL injec tion 20 mg dexamethasone (DECADRON) 4 mg/mL injecti on 6 mg diphenhydrAMINE (BENADRYL) 50 mg/mL inje ction 12.5 mg neostigmine (PROSTIGMINE) 4 mg/4 mL (1 m g/mL) injection 1 mg glycopyrrolate (ROBINUL) 0.4 mg/2 mL (0. 2 mg/mL) syringe 0.4 mg ceFAZolin in sterile water (ANCEF) 2 gra m/20 mL IV Syringe (PREMIX) 2,000 mg 2,000 mg ePHEDrine 50 mg/mL injection 10 mg lactated Ringers solution 1,200 mL * Agents Name Air Sevoflurane % Desflurane % Sevoflurane Desflurane O2 [...] pressure dressing, catheter intact, direct pressure 11/16/17 8045 by Michelle Menchaca RN 11/16/17 1538 by [...] Continuous waveform capnography 11/16/17 1207 by Izabela Edmond CRNA 11/16/17 1259 by Izabela Edmond CRNA Adult Incision 11/16/17; 1256; surgical incision; Left; [...] on file documented as of this encounter OR Notes * Anesthesia Postprocedure Evaluation - Yulisa Hoang MD - 11/16/2017 2:10 PM CDT Post Anesthesia Evaluation Vitals: BP 128/64 Pulse 81 Temp 37.3 ??C (Skin) Resp 15 Wt 58.5 kg (128 lb 14.4 oz) SpO2 97% BMI 23.20 kg/m?? Pain Rating: Pain Rating: Rest: 5 (11/16/17 1345) Nausea/Vomiting: no nausea and no vomiting Post-Op hydration: well hydrated Respiratory function: no respiratory symptoms Airway patency: normal Cardiovascular function: Normal - Regular rate and rhythm Mental status, LOC: 0=alert; keenly responsive Patient participated in evaluation: yes Unanticipated Events: no YULISA HOANG MD * Anesthesia Handoff - Izabela Edmond CRNA - 11/16/2017 1:06 PM CDT Post-Anesthetic transfer of care report [...] 6. Set expectations for post-procedure period 7. Allowed opportunity for questions and acknowledgement of understanding. Vital Signs: BP: 150/88 (11/16/2017 1:05 PM) Pulse: 100 (11/16/2017 1:05 PM) Heart Rate: 101 bpm (11/16/2017 1:05 PM) Temp: 37.3 ??C (11/16/2017 1:05 PM) Resp: 10 (11/16/2017 1:05 PM) SpO2: 100 % (11/16/2017 1:05 PM) 1:06 PM Izabela Edmond CRNA * Anesthesia Preprocedure Evaluation - Yulisa Hoang MD - 11/16/2017 12:46 PM CDT Relevant Problems No relevant active problems Anesthesia Evaluation Patient summary reviewed and Nursing notes reviewed Airway Mallampati: II TM distance: >3 FB Neck ROM: full Dental - normal exam Pulmonary - negative ROS and normal exam breath sounds clear to auscultation Cardiovascular - normal exam (+) hypertension well controlled, Rhythm: regular Rate: normal Neuro/Psych (+) neuromuscular disease, (-) seizures, CVA GI/Hepatic/Renal (+) GERD, PUD, Endo/Other (+) hypothyroidism, arthritis Abdominal Anesthesia History History of anesthetic complications and history of PONV.No history of difficult intubation, no history of malignant hyperthermia and no pseudocholinesterase deficiency. glidescope intubation in past Anesthesia Plan ASA 3 General Intravenous induction Oral ETT airway maintenance NPO status > 6 hours Anesthetic plan and risks discussed with Patient. Plan discussed with Nurse Purchasing Specialist. Post-op Pain Control Plan to use IV or IM medication for post-op pain control. documented in this encounter Plan of Treatment Not on file documented as of this encounter Visit Diagnoses Not on filedocumented in this encounter Administered Medications Inactive Administered Medications - up to 3 most recent administrations Medication Order MAR Action Action Date Dose Rate Site ceFAZolin in sterile water (ANCEF) 2 gram/20 mL IV Syringe (PREMIX) 2,000 mg 2,000 mg, IV, PRE-PROCEDURE ONCE, 1 dose, Starting on Juany 11/16/17 at 0915, Until Juany 11/16/17 at 1213, Routine, Antibiotic Indication: Surgical prophylaxis Given 11/16/2017 11:53 AM CDT 2,000 mg dexamethasone (DECADRON) injection INTRA-PROCEDURE PRN, Starting on Juany 11/16/17 at 1219, Until Juany 11/16/17 at 1307, Routine, Anesthesia Intra-op Given 11/16/2017 12:19 PM CDT 6 mg diphenhydrAMINE (BENADRYL) injection INTRA-PROCEDURE PRN, Starting on Juany 11/16/17 at 1219, Until Juany 11/16/17 at 1307, Routine, Anesthesia Intra-op Given 11/16/2017 12:19 PM CDT 12.5 mg ePHEDrine injection INTRA-PROCEDURE PRN, Starting on Juany 11/16/17 at 1217, Until Juany 11/16/17 at 1307, Routine, Anesthesia Intra-op Given 11/16/2017 12:17 PM CDT 10 mg fentaNYL PF (SUBLIMAZE) 50 mcg/mL injection INTRA-PROCEDURE PRN, Starting on Juany 11/16/17 at 1204, Until Juany 11/16/17 at 1307, Pain (See admin instructions), Routine, Anesthesia Intra-op Given 11/16/2017 12:55 PM CDT 50 mcg Given 11/16/2017 12:04 PM CDT 50 mcg glycopyrrolate (ROBINUL) injection INTRA-PROCEDURE PRN, Starting on Juany 11/16/17 at 1250, Until Juany 11/16/17 at 1307, Routine, Anesthesia Intra-op Given 11/16/2017 12:50 PM CDT 0.4 mg lactated Ringers solution IV, at 150 mL/hr, PRE-PROCEDURE CONTINUOUS, Starting on Juany 11/16/17 at 0930, Until Juany 11/16/17 at 1744, Routine New Bag 11/16/2017 12:25 PM CDT Continue from Pre-Op 11/16/2017 11:53 AM CDT New Bag 11/16/2017 9:59 AM CDT 150 mL/hr lidocaine (XYLOCAINE) 60 mg/3 mL (2 %) syringe INTRA-PROCEDURE PRN, Starting on Juany 11/16/17 at 1204, Until Juany 11/16/17 at 1307, Routine, Anesthesia Intra-op Given 11/16/2017 12:04 PM CDT 40 mg midazolam (PF) (VERSED) injection INTRA-PROCEDURE PRN, Starting on Juany 11/16/17 at 1153, Until Juany 11/16/17 at 1307, Routine, Anesthesia Intra-op Given 11/16/2017 11:53 AM CDT 2 mg neostigmine (PROSTIGMINE) 4 mg/4 mL (1 mg/mL) injection INTRA-PROCEDURE PRN, Starting on Juany 11/16/17 at 1250, Until Juany 11/16/17 at 1307, Routine, Anesthesia Intra-op Given 11/16/2017 12:50 PM CDT 1 mg propofol (DIPRIVAN) injection INTRA-PROCEDURE PRN, Starting on Juany 11/16/17 at 1204, Until Juany 11/16/17 at 1307, Anesthesia Intra-op Given 11/16/2017 12:04 PM CDT 150 mg rocuronium (ZEMURON) injection INTRA-PROCEDURE PRN, Starting on Juany 11/16/17 at 1204, Until Juany 11/16/17 at 1307, Routine, Anesthesia Intra-op Given 11/16/2017 12:04 PM CDT 20 mg documented in this encounter Care Teams Manager Infusion Relationship Specialty Start Date End Date Gadiel Zavala MD [address] [place] [phone] PCP - General Family Practice 03/03/17 documented as of this encounter
--- OUTSIDE RECORDS SUMMARY | 2024-04-17 11:46 | XMS_ITS | Encounter Summary ---
Author Organization [facility] Address [address] [place] [address] Care Team Providers Care Crayon Painter Name Role Phone Gadiel Zavala MD Primary Care Provider [phone] Reason for Visit * Auth/Cert Specialty Diagnoses / Procedures Referred By Contac t Referred To Contact Radiology [address] [address] Referral ID Status Reason Start Date Expiration Date Visits Re quested Visits Authorized [id number] 1 1 Encounter Details Date Type Department Care Team (Latest Contact Info) Description 08/15/2017 12:50 PM CDT - 08/15/2017 11:59 PM CDT Hospital Encounter [facility] Medical Medical [address] [address] Mylene Gutierrez MD [address] 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 atorvastatin (LIPITOR) 20 mg tablet Take 20 [...] CERVICAL SPINE 2 OR 3 VIEWS Routine 08/15/2017 12:55 PM CDT Neck pain documented in this encounter Results * XR CERVICAL SPINE 2 OR 3 VIEWS (08/15/2017 12:55 PM CDT) Anatomical Region Laterality Modality Spine Computed Radiogr aphy 08/15/2017 12:5 5 PM CDT Impressions 08/15/2017 3:51 PM CDT IMPRESSION: 1. Stable appearance of anterior C3-4 discectomy and instrumented fusion. DICTATION LOCATION: Location 1, [facility] Narrative 08/15/2017 3:51 PM CDT EXAMINATION: XR CERVICAL SPINE 2 OR 3 VIEWS HISTORY: Neck pain FINDINGS: Comparison is made with a study from 16 May 2017. There is gentle cervical kyphosis. Vertebral bodies are normal in height. Anterior C3-4 discectomy and instrumented fusion is unchanged in position. Fusion across the C4-5 and C5-6 disc space and C6-7 degenerative disc disease appears unchanged. Prevertebral soft tissues appear normal. Procedure Note Abimbola Renee MD - 08/15/2017 EXAMINATION: XR CERVICAL SPINE 2 OR 3 VIEWS HISTORY: Neck pain FINDINGS: Comparison is made with a study from 16 May 2017. There is gentle cervical kyphosis. Vertebral bodies are normal in height. Anterior C3-4 discectomy and instrumented fusion is unchanged in position. Fusion across the C4-5 and C5-6 disc space and C6-7 degenerative disc disease appears unchanged. Prevertebral soft tissues appear normal. IMPRESSION: 1. Stable appearance of anterior C3-4 discectomy and instrumented fusion. DICTATION LOCATION: Location 1, [facility] Mylene Gutierrez MD DIAGNOSTIC IMAGING O RDERABLES documented in this encounter Visit Diagnoses Diagnosis Neck pain Cervicalgia documented in this encounter Care Teams Crayon Painter Relationship Specialty Start Date End Date Gadiel Zavala MD [facility] [place] [address] PCP - General Family Practice 03/03/17 documented as of this encounter
--- OUTSIDE RECORDS SUMMARY | 2024-04-17 11:46 | XMS_ITS | Encounter Summary ---
Author Organization [facility] Address [address] [place] [address] Care Team Providers Care Plug Shaper Hand Name Role Phone [facility], External Provider Primary Care Provider U navailable Reason for Visit * Auth/Cert Specialty Diagnoses / Procedures Referred By Delores t [facility] [address] [address] Referral ID Status Reason Start Date Expiration Date Visits Re quested Visits Authorized [id number] 1 1 Encounter Details Date Type Department Care Team (Latest Contact Info) Description 01/17/2017 2:51 PM CDT - 01/17/2017 11:59 PM CDT Hospital Encounter [facility] Medical Medical [address] [address] Mylene Gutierrez MD [address] [facility] [place] [address] -[phone] (Work) Discharge Disposition: Home or Self Care Social History Tobacco Use Types Packs/Day Years Used Date Smoking Tobacco: Never Assessed Sex and Gender Information Value Date Recorded Sex Assigned at Not on file Gender Identity Not on file Sexual Orientation Not on file documented as of this encounter Plan of Treatment Not on file documented as of this encounter Procedures Procedure Name Priority Date/Time Associated Diagnosis Comments XR CERVICAL SPINE 2 OR 3 VIEWS Routine 01/17/2017 2:55 PM CDT Cervicalgia documented in this encounter Results * XR CERVICAL SPINE 2 OR 3 VIEWS (01/17/2017 2:55 PM CDT) Anatomical Region Laterality Modality Spine Computed Radiogr aphy 01/17/2017 2:57 PM CDT Impressions 01/18/2017 6:54 AM CDT IMPRESSION: Cervical spondylosis. Segments C4-5-6 fused and C3 likely also fused to C4. No fracture or instability identified. Dictated from Location 1, [facility] Narrative 01/18/2017 6:54 AM CDT LATERAL VIEWS OF CERVICAL SPINE IN FLEXION AND EXTENSION, 01/17/2017 HISTORY: Cervicalgia. FINDINGS: Predental space is normal. Prevertebral soft tissue thickness is normal. There is severe narrowing at the C3-4 intervertebral disc space. Prominent anterior osteophytes are present. C4-5 has narrowing of intervertebral disc space and is probably fused to C5 vertebra. Prominent anterior osteophytes are present at C4-5. C5 and C6 vertebrae are completely fused across the intervertebral disc space. C6-7 has narrowing of the intervertebral disc space with marginal osteophytes. No fractures are seen. There does not appear to be any abnormal mobility between flexion and extension. Procedure Note Boom Paulino MD - 01/18/2017 LATERAL VIEWS OF CERVICAL SPINE IN FLEXION AND EXTENSION, 01/17/2017 HISTORY: Cervicalgia. FINDINGS: Predental space is normal. Prevertebral soft tissue thickness is normal. There is severe narrowing at the C3-4 intervertebral disc space. Prominent anterior osteophytes are present. C4-5 has narrowing of intervertebral disc space and is probably fused to C5 vertebra. Prominent anterior osteophytes are present at C4-5. C5 and C6 vertebrae are completely fused across the intervertebral disc space. C6-7 has narrowing of the intervertebral disc space with marginal osteophytes. No fractures are seen. There does not appear to be any abnormal mobility between flexion and extension. IMPRESSION IMPRESSION: Cervical spondylosis. Segments C4-5-6 fused and C3 likely also fused to C4. No fracture or instability identified. Dictated from Location 1, [facility] Mylene Gutierrez MD DIAGNOSTIC IMAGING O RDERABLES documented in this encounter Visit Diagnoses Diagnosis Cervicalgia documented in this encounter Care Teams Plug Shaper Hand Relationship Specialty Start Date End Date [facility], External Provider [address] [place] [address] PCP - General 01/17/17 03/02/17 documented as of this encounter
--- OUTSIDE RECORDS SUMMARY | 2024-04-17 11:46 | XMS_ITS | Encounter Summary ---
Author Organization [facility] Address [address] [place] [address] Care Team Providers Care Broadband Installer Name Role Phone Gadiel Zavala MD Primary Care Provider [phone] Reason for Visit * Auth/Cert Specialty Diagnoses / Procedures Referred By Contac t Referred To Contact Radiology [address] [address] Referral ID Status Reason Start Date Expiration Date Visits Re quested Visits Authorized [id number] 1 1 Encounter Details Date Type Department Care Team (Latest Contact Info) Description 03/17/2017 8:58 AM ARBITRATOR - 03/17/2017 11:59 PM [facility] Hospital Encounter [facility] [address] [address] Mylene Gutierrez MD [address] 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 atorvastatin (LIPITOR) 20 mg tablet Take 20 [...] 03/04/2017 04/03/2017 documented as of this encounter Plan of Treatment Not on file documented as of this encounter Procedures Procedure Name Priority Date/Time Associated Diagnosis Comments XR CERVICAL SPINE 2 OR 3 VIEWS Routine 03/17/2017 9:04 AM ARBITRATOR Cervical stenosis of spine documented in this encounter Results * XR CERVICAL SPINE 2 OR 3 VIEWS (03/17/2017 9:04 AM ARBITRATOR) Anatomical Region Laterality Modality Spine Computed Radiogr aphy 03/17/2017 9:04 AM ARBITRATOR Impressions 03/17/2017 5:06 PM ARBITRATOR IMPRESSION: Multilevel cervical spondylosis without significant change. Narrative 03/17/2017 5:06 PM ARBITRATOR XR CERVICAL SPINE 2 OR 3 VIEWS DATE: ??03/17/2017 9:04 AM HISTORY: ??Cervical stenosis of spine. FINDINGS: Comparison is made to prior exam on 02/28/2017. Plate and screw fixation hardware is seen across C3-4. This is similar to the prior exam. Chronic solid anterior fusion across C4-5 and C5-6 does not appear significantly different. Prominent disc degeneration is noted at C6-7. Minimal anterolisthesis of C7 on T1 is noted. Predental space is not widened. Prevertebral soft tissues are not thickened. There is multilevel facet arthropathy. Procedure Note Steven Grimes MD - 03/17/2017 XR CERVICAL SPINE 2 OR 3 VIEWS DATE: 03/17/2017 9:04 AM HISTORY: Cervical stenosis of spine. FINDINGS: Comparison is made to prior exam on 02/28/2017. Plate and screw fixation hardware is seen across C3-4. This is similar to the prior exam. Chronic solid anterior fusion across C4-5 and C5-6 does not appear significantly different. Prominent disc degeneration is noted at C6-7. Minimal anterolisthesis of C7 on T1 is noted. Predental space is not widened. Prevertebral soft tissues are not thickened. There is multilevel facet arthropathy. IMPRESSION: Multilevel cervical spondylosis without significant change. Mylene Gutierrez MD DIAGNOSTIC IMAGING O RDERABLES documented in this encounter Visit Diagnoses Diagnosis Cervical stenosis of spine Spinal stenosis in cervical region documented in this encounter Care Teams Broadband Installer Relationship Specialty Start Date End Date Gadiel Zavala MD [facility] [place] [address] PCP - General Family Practice 03/03/17 documented as of this encounter
--- OUTSIDE RECORDS SUMMARY | 2024-04-17 11:46 | XMS_ITS | Encounter Summary ---
Author Organization [facility] Address [address] [place] [address] Care Team Providers Care Chemist Instrumentation Name Role Phone [facility], External Provider Primary Care Provider U navailable Reason for Visit * Auth/Cert Specialty Diagnoses / Procedures Referred By Delores t Referred To Contact General Surgery Diagnoses weakness [facility] [place] [address] [place] [address] Referral ID Status Reason Start Date Expiration Date Visits Re quested Visits Authorized [id number] 1 1 Encounter Details Date Type Department Care Team (Latest Contact Info) Description 02/28/2017 10:24 AM CDT - 02/28/2017 11:59 PM T Hospital Encounter [facility] [address] [place] [address] Mylene Gutierrez MD [address] 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 atorvastatin (LIPITOR) 20 mg tablet Take [...] 60 Tablet 02/17/2017 03/14/2017 oxyCODONE-acetaminoph en (PERCOCET) 7.5-325 mg Tablet Take 1 Tablet by mouth every 8 hours as needed for Pain, Moderate. 03/03/2017 documented as of this encounter Plan of Treatment Not on file documented as of this encounter Procedures Procedure Name Priority Date/Time Associated Diagnosis Comments XR CERVICAL SPINE 2 OR 3 VIEWS Routine 02/28/2017 10:32 AM CDT Cervical stenosis of spine documented in this encounter Results * XR CERVICAL SPINE 2 OR 3 VIEWS (02/28/2017 10:32 AM CDT) Anatomical Region Laterality Modality Spine Computed Radiogr aphy 02/28/2017 10:3 3 AM CDT Impressions 03/01/2017 11:23 AM CDT IMPRESSION: 1. Diffuse prevertebral soft tissue swelling, more than expected 12 days postop. 2. No definite acute osseous abnormality identified. MRI of the cervical spine has been ordered. DICTATION LOCATION: Location [address] [place] [address] Narrative 03/01/2017 11:23 AM CDT XR CERVICAL SPINE 2 OR 3 VIEWS DATE: ??02/28/2017 10:32 AM HISTORY: ??Neck pain, follow-up fusion COMPARISON: 02/16/2017 TECHNIQUE: ??AP and lateral views of the cervical spine, sitting FINDINGS: There is anterior fusion at C3-4. The interbody fusion device is in good position. Straightening of the normal cervical lordosis is noted. Previous fusion from C4 through C6 is noted with solid bony bridging. The facet joints appear aligned. Prevertebral soft tissue swelling persists from the C2 level down to the C7 level. The soft tissue gas seen on the prior study has resolved. Procedure Note Tracy Willard MD - 03/01/2017 XR CERVICAL SPINE 2 OR 3 VIEWS DATE: 02/28/2017 10:32 AM HISTORY: Neck pain, follow-up fusion COMPARISON: 02/16/2017 TECHNIQUE: AP and lateral views of the cervical spine, sitting FINDINGS: There is anterior fusion at C3-4. The interbody fusion device is in good position. Straightening of the normal cervical lordosis is noted. Previous fusion from C4 through C6 is noted with solid bony bridging. The facet joints appear aligned. Prevertebral soft tissue swelling persists from the C2 level down to the C7 level. The soft tissue gas seen on the prior study has resolved. IMPRESSION: 1. Diffuse prevertebral soft tissue swelling, more than expected 12 days postop. 2. No definite acute osseous abnormality identified. MRI of the cervical spine has been ordered. DICTATION LOCATION: [place] [address] - [facility] Mylene Gutierrez MD DIAGNOSTIC IMAGING O POP documented in this encounter Visit Diagnoses Diagnosis Cervical stenosis of spine Spinal stenosis in cervical region documented in this encounter Care Teams Chemist Instrumentation Relationship Specialty Start Date End Date [facility], External Provider [address] [place] [address] PCP - General 01/17/17 03/02/17 documented as of this encounter
--- OUTSIDE RECORDS SUMMARY | 2024-04-17 11:46 | XMS_ITS | Encounter Summary ---
Author Organization [facility] Address [address] [place] [address] Care Team Providers Care Copy Center Specialist Name Role Phone [facility], External Provider Primary Care Provider U navailable Reason for Visit * Auth/Cert Specialty Diagnoses / Procedures Referred By Delores t Referred To Contact General Surgery Diagnoses CERVICAL SPONDYLOSIS Procedures CERVICAL DISCECTOMY FUSION 1 LEVEL ANTERIOR [address] Or [address] [place] [address] Referral ID Status Reason Start Date Expiration Date Visits Re quested Visits Authorized [id number] 1 1 Encounter Details Date Type Department Care Team (Late st Contact Info) Description 02/16/2017 12:00 PM CDT - 02/16/2017 2:55 PM CDT Surgery [facility] [place] [facility] Operating Room [address] [place] [address] Mylene Gutierrez MD [address] [facility] [address] [address] -x0 (Work) CERVICAL DISCECTOMY FUSION 1 LEVEL ANTERIOR, C3-4 Surgery Details Date/Time Status Location OR Service Patient Class Case Class Case Type Trauma Case? 02/16/2017 12:00 PM Posted [facility] OR MAIN OR 30 Neurological Surgery Surgical OP/Extended Care Elective No Panel 1 Procedure LRB Anes Op Region Wound Class Comments CERVICAL DISCECTOMY FUSION 1 LEVEL ANTERIOR, C3-4 N/A General Spine Cervical Clean-I Surgeon Surgeon Role Service Panel Mylene Gutierrez MD Primary Neurological Surgery 1 Case Notes [employer], [id number] PER [facility]ESIS, CPT 4083595, 48824, 16665 documented in this encounter Social History Tobacco [...] Sign Reading Time Taken Comments Blood Pressure 157/98 02/16/2017 2:44 PM CDT Pulse 99 02/16/2017 2:44 PM CDT Temperature 36.6 ??C (97.9 ??F) 02/16/2017 2:44 PM CD T Respiratory Rate 16 02/16/2017 2:44 PM CDT Oxygen Saturation 100% 02/16/2017 2:44 PM CDT Inhaled Oxygen Concentration - - Weight 62.7 kg (138 lb 3.2 oz) 02/16/2017 10:49 AM CDT Height 160 cm (5' 3 ) 02/16/2017 10:49 AM CDT Body Mass Index 24.48 02/16/2017 10:49 AM CDT documented in this encounter Discharge Instructions * Discharge Instructions* Maggy Willard PA - 02/16/2017 12:30 PM CDT Thank you for choosing [facility] for your care! The following is a [...] food bags, a child, or a vacuum final cleaner. ?? 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 atorvastatin (LIPITOR) 20 mg tablet Take 20 [...] to home today. Elaine Dubon PA-C Pgr: [phone] * Maggy Willard PA - 02/16/2017 2:40 PM CDT [place], [place] [address] Neurosurgery Brief Operative Note Kaitlin Bond 1950 [id number] Today's Date: 02/16/2017 Pre-op Dx: cervical stenosis [...] 02/16/2017 12:38 PM CDT Pre-surgery Note Kaitlin Bnod is a 66 y.o. female with cervical [...] Gutierrez MD - 02/16/2017 4:20 PM CDT [place], [place] [address] Operative Report CSN: [id number] DATE OF SERVICE: 02/16/2017 SURGEON Mylene Gutierrez MD PREOPERATIVE DIAGNOSIS Cervical stenosis. POSTOPERATIVE DIAGNOSIS Cervical stenosis. OPERATION NAME C3-4 anterior cervical diskectomy, C3-4 arthrodesis, C3-C4 instrumentation, intraoperative microscope use, and intraoperative fluoroscopy. ANESTHESIA General. LEATHER PATCHER ZEHRA Emerson, who participated in both the [...] exposing the underlying disc. I then placed Buckhead pins in the body of C3 and [...] tightened the screws down and applied the creative services specialist recommended locking mechanism. I removed my self-retaining [...] and needle counts were correct. TQ:MEDQ DID: [id number] Dictated by: Mylene Gutierrez MD documented in [...] pain/comfort utilizing verbal/nonverbal pain scales; assess culturalor congregational indicators attached to pain; administer pain medications [...] PM CDT CERVICAL SPONDYLOSIS Case Notes [employer]ET[employer], [id number] PER [facility], CPT 60911, 17468, 34431 VERIFICATION BLOOD GROUP Stat 02/16/2017 11:30 AM [...] IMPRESSION: As above. DICTATION LOCATION: Location 1, [facility] Narrative 02/16/2017 5:46 PM CDT XR CERVICAL [...] noted. IMPRESSION: As above. DICTATION LOCATION: Location , [facility] Maggy Willard PA-C DIAGNOSTIC IMAGING ORDERABLES * XR FLUORO LESS THAN 1 HOUR (02/16/2017 2:32 PM CDT) Anatomical Region Laterality Modality Computed Radiogr aphy 02/16/2017 2:33 PM CDT Impressions 02/17/2017 8:26 AM CDT IMPRESSION: Intraoperative fluoroscopy was provided during cervical spine surgery. DICTATION LOCATION: Location 1 - [facility] Narrative 02/17/2017 8:26 AM CDT FLUOROSCOPY LESS [...] spine surgery. DICTATION LOCATION: Location 1 - [facility] Mylene Gutierrez MD DIAGNOSTIC IMAGING O RDERABLES * VERIFICATION BLOOD GROUP (02/16/2017 11:30 AM CDT) ABO GROUP A 02/16/2017 11:30 AM CDT [facility] RH (D) TYPE Positive 02/16/2017 11:30 AM CDT [facility] Blood Venipuncture / Unknown 02/16/2017 11:30 AM CDT 02/16/2017 11:41 AM CDT Carolina Peck MD BLOOD BANK STACY OLIVIA [facility] Organization Address City/State/ZIP Co de Phone Number [id number] [address] [facility] [place] [address] documented in this encounter Visit Diagnoses Not on filedocumented in this encounter Administered Medications Inactive Administered Medications - up to 3 most recent administrations Medication Order MAR Action Action Date Dose Rate Site atorvastatin (LIPITOR) tablet 20 mg 20 mg, Oral, DAILY AT BEDTIME, First dose on Juany 02/16/17 at 2100, Until Discontinued, Routine Given 02/16/2017 9:18 PM CDT 20 mg bacitracin (BACI-IM) 50,000 Units in sodium chloride 0.9 % irrigation 1,000 mL IRRIGATION Irrigation, INTRA-PROCEDURE PRN, 1 dose, Starting on Juany 02/16/17 at 1213, Until Juany 02/16/17 at 1338, prn, Routine, Intra-op, Antibiotic Indication: Surgical prophylaxis Given 02/16/2017 1:38 PM CDT 50,000 Units Operative Site bupivacaine-EPINEPHri ne (SENSORCAINE-EPINEPHR INE) 0.25 %-1:200,000 injection INTRA-PROCEDURE PRN, Starting on Juany 02/16/17 at 1426, Until Juany 02/16/17 at 1444, Routine, Intra-op Given 02/16/2017 2:26 PM CDT 10 mL Operative Site ceFAZolin (ANCEF) 2,000 mg in dextrose (iso-osmotic) [...] at 150 mL/hr, PRE-PROCEDURE CONTINUOUS, Starting on Mon02/16/17 at 1130, Until Mon02/16/17 at 1528, Routine New Bag 02/16/2017 2:27 [...] 5 MINUTES PRN, 2 doses, Starting on Mon02/16/17 at 1249, Until Mon02/16/17 at 1504, Pain, Moderate, For pain scale 4-6, Routine, PACU Given 02/16/2017 3:04 PM CDT 2 mg Given 02/16/2017 2:57 PM CDT 2 mg oxyCODONE (ROXICODONE) tablet 10 mg 10 mg, Oral, EVERY 4 HOURS PRN, Starting on Mon02/16/17 at 1530, [...] IV, at 80 mL/hr, CONTINUOUS, Starting on Mon02/16/17 at 1545, Until Mon02/17/17 at 1241, Routine, [...] 2117 (Given - Provider: Glory Raymond RN) ceFAZolin (ANCEF) 2,000 mg in dextrose (iso-osmotic) 100 mL IVPB (PREMIX) (COMPLETED) 2,000 mg, IV, POST-PROCEDURE Q 8 HOURS, 2 doses, First dose on Juany 02/16/17 at 2100, Last dose on Mon02/17/17 at 0500, Routine, Post-op - Floor, Antibiotic Indication: Surgical prophylaxis 2106 (New Bag - Provider: Glory Raymond RN)213 (Stopped - Provider: Glory Raymond RN) 0602 (New Bag - Provider: Glory Raymond RN)0632 (Stopped - Provider: Glory Raymond RN) ceFAZolin (ANCEF) IVPB 2,000 mg (COMPLETED) 2,000 mg, IV, PRE-PROCEDURE ONCE, 1 dose, Starting on Juany 02/16/17 at 1129, Until Mon02/16/17 at 1306, Routine, Antibiotic Indication: Surgical prophylaxis 1306 (Given - Provider: RAGHU Montez) docusate sodium (COLACE) capsule 100 mg 100 mg, Oral, TWO TIMES DAILY, First dose on Juany 02/16/17 at 2100, Until Discontinued, Routine, Post-op - Floor 2116 (Given - Provider: Glory Raymond RN) 0843 (Given - Provider: Jayne Lovell) DULoxetine (CYMBALTA) [...] at 150 mL/hr, PRE-PROCEDURE CONTINUOUS, Starting on Mon02/16/17 at 1130, Until Mon02/16/17 at 1528, Routine 1130 (Canceled Entry - Provider: Jayne Lovell)1143 (New Bag - Provider: Kati Mooney RN)1427 (New Bag - Provider: RAGHU Montez)1451 (Fluid Volume - Provider: RAGHU Montez) sodium chloride 0.9% infusion IV, at 80 mL/hr, CONTINUOUS, Starting on Mon02/16/17 at 1545, Until Mon02/17/17 at 1241, Routine, [...] Routine, PACU 1459 (Given - Provider: Mitzi Hackett RN)1503 (Given - Provider: Mitzi Hackett RN) HYDROmorphone (DILAUDID) 1 mg/mL injection 0.5 mg [...] Routine, PACU 1457 (Given - Provider: Mitzi Hackett, RN)1504 (Given - Provider: Mitzi Hackett, LOGAN) [...] (See admin instructions), Routine, Post-op - Floor 211 (Given - Provider: Glory Raymond, LOGAN) oxyCODONE (ROXICODONE) tablet 5 mg 5 mg, [...] Routine documented in this encounter Care Teams Copy Center Specialist Relationship Specialty Start Date End Date [facility], External Provider [address] [place] [address] PCP - General 01/17/17 03/02/17 documented as of this encounter
--- OUTSIDE RECORDS SUMMARY | 2024-04-17 11:46 | XMS_ITS | Encounter Summary ---
Author Organization [facility] Address 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 SPINAL CORD DORSAL COLUMN STIMULATOR INSERTION [facility] [address] [place] [address] Referral ID Status Reason Start Date Expiration Date Visits Re quested Visits Authorized [id number] 1 1 Encounter Details Date Type Department Care Team (Latest Contact Info) Description 11/16/2017 8:37 AM CDT - 11/16/2017 3:44 PM CDT Hospital Encounter [facility] [address] [place] [address] Mylene Gutierrez MD [address] [address] -[phone] (Work) Discharge Disposition: Home [...] Sign Reading Time Taken Comments Blood Pressure 147/85 11/16/2017 3:35 PM CDT Pulse 104 11/16/2017 3:35 PM CDT Temperature 36.9 ??C (98.4 ??F) 11/16/2017 3:35 PM CD T Respiratory Rate 16 11/16/2017 2:42 PM CDT Oxygen Saturation 97% 11/16/2017 3:35 PM CDT Inhaled Oxygen Concentration - - Weight 58.5 kg (128 lb 14.4 oz) 11/16/2017 9:40 AM CDT Height - - Body Mass Index 23.2 11/07/2017 1:46 PM CDT documented in this encounter Discharge Instructions * Discharge Instructions* Alexa Snider RN - 11/16/2017 2:53 PM CDT If you do not already have a follow up appt, call the office ([phone]) in the next 1-2 business days to make your follow up appt for 4 weeks. You may remove your dressing 48 hours post-op, then okay to leave off. You may also shower 48 hoursafter your surgery and get your incision wet, you do not have to overtly scrub/wash the incision. Do not submerge incision in water for 1 month after your surgery -i.e. no tub baths, swimming, or Jacuzzis. No strenuous activity for the next 2 weeks, (i.e. No lifting greater than 5-7 pounds.) Avoid excessive bending/twisting at the waist for the first 2 weeks. No driving for the next 3 days. Swelling is an unfortunate event that will take place after this procedure and is the primary source of your discomfort. While walking and regular approved activities helps control inflammation, there are additional steps you can take to minimize swelling. > Place ice over the site and surrounding tissue for twenty minutes, every 1-2 hours as needed for pain relief, protect your skin with a small cloth. > Use of over the counter anti-inflammatory medications (Ibuprofen, Motrin, Aleve, Advil, etc) as directed on the package label will significantly reduce the amount of discomfort you experience after surgery from swelling. It should be noted that if you have and allergy to any of these medications, or a history of ulcers or kidney disease you should consult you primary care provider prior to starting these medications. Please be advised that it is the patient's responsibility to ensure they have enough pain medication to last through weekends and holidays, as on-call providers do not call in pain meds. SAFETY For the next 24 hours, you [...] Next dose due at , if needed. ADDITIONAL INFORMATION Once you are home, if you develop any of the following symptoms, call your physician. Difficulty in breathing, persistent nausea or vomiting, pain that is unusual, excessive swelling orredness at incision site, trouble swallowing, temperature greater than 101 degrees, excessive bleeding at incision site. If you cannot contact your physician, call or come to the Emergency Room at [facility] ([phone]) or the nearest Emergency Room. 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 atorvastatin (LIPITOR) 20 mg tablet Take 20 [...] as of this encounter Progress Notes * Letty Shay PA - 11/16/2017 12:33 PM CDT Brief Postoperative Note Kaitlin Bond [id number] Pre-operative Diagnosis: chronic pain Post-operative Diagnosis: Same Procedure(s) and Anesthesia Type: * SPINAL CORD DORSAL COLUMN STIMULATOR removal - General Surgeon(s) and Role: * Mylene Gutierrez MD - Primary Surgeons/Assistants: ZEHRA Hand Specimens Removed: spinal cord stimulator generator pocket tissue sent for culture Estimated Blood Loss: Minimal Complications:none Patient was transferred to the post operative recovery unit in stable condition. ZEHRA Hand documented in this encounter H&P Notes * Letty Shay PA - 11/16/2017 11:15 AM CDT [place], [place] [address] HISTORY AND PHYSICAL PATIENT NAME: Kaitlin Bond CSN: [id number] ADMITTING PHYSICIAN: Mylene Gutierrez MD PRIMARY CARE PROVIDER: Gadiel Zavala MD Admission Diagnosis: Chronic pain HPI Patient is a 67 y.o. female admitted for removal of spinal cord stimulator. Pt states it does not work and she would like to have it removed so that she can pursue MRI of her c-spine. Past Medical History: Diagnosis Date ??? Anxiety [...] C3-4 performed by Mylene Gutierrez MD at [facility] Allergies Allergen Reactions ??? Adhesive Rash ??? Adhesive Tape-Silicones Rash Reaction: RASH ??? Gadolinium-Containing Contrast Media Hives ??? Latex Other (See Comments) Pt states no. Is fine with gloves. Only allergy is to adhesive. ??? Magnevist [Gadopentetate Dimeglumine] Hives Prior to Admission medications Medication Sig Start Date End Date Taking? Authorizing Provider metoprolol succinate (TOPROL XL) 100 mg Extended Release 24 hour tablet Take 100 mg by mouth daily at bedtime. Yes Provider, Historical celecoxib (CeleBREX) 200 mg capsule Take 200 mg by mouth daily at bedtime. Yes Provider, Historical oxyCODONE-acetaminophen (PERCOCET) 5-325 mg tablet Take 1 Tablet by mouth every 4 hours as needed for Pain, Moderate. Max Daily Amount: 6 Tablets Patient taking differently: Take 1 Tablet by mouth every 4 hours as needed for Pain, Moderate Now takes 103[address]. 03/14/17 Yes Yasmin Vieyra, DO omeprazole (PriLOSEC) 40 mg Capsule, Delayed Release(E.C.) Take 40 mg by mouth daily. 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 Yes Provider, Historical atorvastatin (LIPITOR) 20 mg tablet Take 20 mg by mouth late in the day. Yes Provider, Historical lisinopril (PRINIVIL) 40 mg tablet Take 40 mg by mouth daily at bedtime. Yes Provider, Historical FLUoxetine (PROzac) 40 mg capsule Take 40 mg by mouth daily at bedtime. Yes Provider, Historical cyanocobalamin (VITAMIN B-12) 100 mcg tablet Take 3,000 mcg by mouth daily . Yes Provider, Historical calcium-cholecalciferol, D3, (CALTRATE 600 + D) 600 mg (1,500 mg)-800 unit Tablet, Chewable tablet Take by mouth daily. Yes Provider, Historical docusate sodium (COLACE) 100 mg capsule Take 1 Capsule (100 mg) by mouth 2 times daily. 03/14/17 Yasmin Vieyra, DO sennosides-docusate sodium (SENNA-S) 8.6-50 mg tablet Take 1 Tablet by mouth daily at bedtime. 03/14/17 Yasmin Vieyra, DO melatonin 3 mg Tablet Take 1 Tablet (3 mg) by mouth daily at bedtime. 03/14/17 Yasmin Vieyra, DO methocarbamol (ROBAXIN) 500 mg tablet Take 1 Tablet (500 mg) by mouth 3 times daily as needed for Spasm Contact PCP for refills. 03/14/17 Yasmin Vieyra, DO acetaminophen (TYLENOL) 325 mg tablet Take 2 Tablets (650 mg) by mouth every 4 hours as needed for Pain. 03/01/17 Elaine Dubon PA DULoxetine (CYMBALTA) 60 mg Capsule, Delayed Release(E.C.) Take 60 mg by mouth daily at bedtime. Provider, Historical eszopiclone (LUNESTA) 3 mg Tablet Take 5 mg by mouth nightly as needed for Insomnia. Provider, Historical Social History Substance Use Topics ??? Smoking status: Former Smoker Packs/day: 0.25 Years: 5.00 Types: Cigarettes Quit date: 1988 ??? Smokeless tobacco: Never Used Comment: 4 per day ??? Alcohol use Yes Comment: 1-2 times per month 1 drink No family history on file. There are no hospital problems to display for this patient. Review of Systems 10 point ROS reviewed, all pertinent positives are in the HPI. Patient denies any recent fevers, chills, or swelling in the extremities. Physical Exam The patient is alert and orientated Cardiovascular: Normal - Regular rate and rhythm Respiratory: lungs clear to auscultation Gastrointestinal: soft NEURO: CN II-XII grossly intact, PERRL, EOM's intact. Motor of LE's 5/5 Impression S/p SCS placement Plan: Surgery will consist of removal of spinal cord stimulator. The risks and benefits of the surgery were explained, including no guarantee for success. The patient wishes to proceed with the procedure as planned and consents to surgery. Letty Shay PA-C [phone] documented in this encounter OR Notes * Operative Report - Mylene Gutierrez MD - 11/16/2017 11:10 PM CDT [place], [place] [address] Operative Report CSN: [id number] DATE OF SERVICE: 11/16/2017 SURGEON Mylene Gutierrez MD PREOPERATIVE DIAGNOSIS Nonfunctional spinal cord stimulator with chronic pain. POSTOPERATIVE DIAGNOSIS Nonfunctional spinal cord stimulator with chronic pain. OPERATION NAME Removal of spinal cord stimulator percutaneous electrodes, right and left; and removal of spinal cord stimulator generator. ANESTHESIA loss prevention auditor ZEHRA Al, who participated in both transportation and positioning of the patient and also participated throughout the procedure providing retraction, suction, and irrigation. DESCRIPTION OF PROCEDURE The patient was brought to the operating room, placed in supine position, and general endotracheal anesthesia was induced. Following that, she was turned in the lateral decubitus position with the left side up. She was marked in her previous incisions and prepped and draped in the usual sterile fashion. Local anesthetic was infiltrated. A 10-blade scalpel was used to make an incision initially over the generator. I dissected down to the generator and then dissected the generator out of the pocket. At that time, I noted a small amount of discharge. It did not seem to be grossly infected, but I did send it off for culture. Once I had the generator out of the pocket, I cut the electrodes justat the base of the generator. I then opened the incision in the lumbar spine, dissected down, and found the anchors that were securely anchored to the lumbar fascia. I dissected these out. I then removed both the right and left percutaneous epidural electrodes individually and removed any excess electrode that had been previously tunneled into the generator incision. The entirety of both the electrodes and the generator were removed with no residual. I copiously irrigated the wound and then proceeded to close first by reapproximating the deeper tissues, then by reapproximating the skin edges,and lastly closing the skin using skin glue. The patient was turned back in the supine position, ext ubated without difficulty, and taken to the PACU in hemodynamically stable condition. There were nocomplications for this case. All sponge and needle counts were correct. TQ:MEDQ DID: [id number] Dictated by: Mylene Gutierrez MD * Simran-OP - Michelle Menchaca RN - 11/16/2017 9:17 AM CDT Knowledge deficit related to procedure/environment Interventions: Assess learning needs and willingness to learn; give clear, concise explanations of the environment and sequence of events surrounding the periop experience; address patient/family questions and concerns; provide teaching as indicated, provide teaching related to postoperative pain assessment utilizing pain scales Expected Outcome: Patient verbalizes or demonstrates awareness/understanding of surgery and perioperative experience Outcome Met: Questions and concerns addressed and answered documented in this encounter Miscellaneous Notes * Care Plan - Alexa Snider RN - 11/16/2017 2:49 PM CDT Potential for pain related to surgical/procedural intervention Interventions: Assess level of pain/comfort utilizing verbal/nonverbal pain scales; assess culturalor druze indicators attached to pain; administer pain medications as prescribed; utilize non-pharmacologic pain control and comfort measures Expected Outcome: Patient demonstrates and reports adequate pain control Outcome Met: adequate pain level Knowledge deficit related to post-discharge care Interventions: Assess learning needs and willingness to learn; give clear, concise explanations of the care required post-discharge; address patient/family questions and concerns; provide teaching asindicated Expected Outcome: Patient and/or family/significant other demonstrate(s) behaviors required for performance of activities enhancing recovery post-discharge Outcome Met: reviewed dc instructions w pt and * Care Plan - Eusebia Jeronimo RN - 11/16/2017 1:21 PM CDT Potential for alteration in thermoregulatory, circulatory, respiratory fluid & electrolyte status Interventions: Perform ongoing physical assessment; maintenance of airway or mechanical ventilation; monitor level of consciousness; initiate safety measures; observe patient???s respiratory status and oxygen saturation; obtain measurements of ongoing hemodynamic parameters, cardiac rhythm, and temperature; monitor intake and output; inspect wound dressings and/or drain output; perform prescribedtherapeutic regimens, treatments and tests; document and/or communicate care given Expected Outcome: Patient will maintain functional status compatible with preoperative status Outcome Met: VSS, pt on RA. No drainage noted. Potential for pain related to surgical/procedural intervention Interventions: Assess level of pain/comfort utilizing verbal/nonverbal pain scales; assess culturalor druze indicators attached to pain; administer pain medications as prescribed; utilize non-pharmacologic pain control and comfort measures Expected Outcome: Patient demonstrates and reports adequate pain control Outcome Met: pt denies pain at this time. Prn pain medication available. documented in this encounter Plan of Treatment Not on file documented as of this encounter Procedures Procedure Name Priority Date/Time Associated Diagnosis Comments TELEMETRY REPORT 11/16/2017 9:53 PM CDT ANAEROBIC/AEROBIC CULTURE W GRAM STAIN Routine 11/16/2017 12:31 PM CDT SPINAL CORD DORSAL COLUMN STIMULATOR INSERTION 11/16/2017 11:40 AM CDT LOW BACK PAIN Case Notes [employer], AUTH # [id number], CPT 21277, [id number] documented in this encounter Results * TELEMETRY REPORT (11/16/2017 9:53 PM CDT) Provider Scanning ECG ORDERABLES * ANAEROBIC/AEROBIC CULTURE W GRAM STAIN (11/16/2017 12:31 PM CDT) CULTURE No aerobic or anaerobic growth 11/21/2017 9:[address] [facility] GRAM STAIN No organisms observed 11/21/2017 9:[address] [facility] GRAM STAIN 1+ (Rare or Occasional) WBC 11/21/2017 9:[address] [facility] Tissue (Back, lower) Collection / Unknown 11/16/2017 12:31 PM CDT 11/16/2017 1:33 PM CDT Mylene Gutierrez MD MICROBIOLOGY - GENER AL ORDERABLES [facility]# [id number] [address] [place] [address] documented in this encounter Visit Diagnoses Not on filedocumented in this encounter Administered Medications Inactive Administered Medications - up to 3 most recent administrations Medication Order MAR Action Action Date Dose Rate Site dexamethasone (DECADRON) injection 8 mg 8 mg, IV, POST-PROCEDURE ONCE PRN, 1 dose, Starting on Juany 11/16/17 at 1248, Until Juany 11/16/17 at 1744, Other (See Comment), Nausea/Emesis, Routine, PACU dexamethasone (DECADRON) injection 8 mg 8 mg, IV, POST-PROCEDURE ONCE PRN, 1 dose, Starting on Juany 11/16/17 at 1249, Until Juany 718 at 1744, Other (See Comment), Nausea/Emesis, Routine, PACU diphenhydrAMINE (BENADRYL) injection 12.5 mg 12.5 mg, IV, POST-PROCEDURE Q 6 HOURS PRN, Starting on Juany 11/16/17 at 1248, Until Juany 11/16/17 at 1744, Itching, Routine, PACU lactated Ringers solution IV, at 150 mL/hr, PRE-PROCEDURE CONTINUOUS, Starting on Juany 11/16/17 at 0930, Until Juany 11/16/17 at 1744, Routine New Bag 11/16/2017 12:25 PM CDT Continue from Pre-Op 11/16/2017 11:53 AM CDT New Bag 11/16/2017 9:59 AM CDT 150 mL/hr lidocaine PF 2 % (XYLOCAINE MPF) injection 0.3 mL 0.3 mL, See Admin Instructions, PRE-PROCEDURE ONCE, 1 dose, Starting on Juany 11/16/17 at 0918, Until Juany 11/16/17 at 1000, Routine Given 11/16/2017 10:00 AM CDT 0.3 mL Hand, Right morphine injection 2 mg 2 mg, IV, POST-PROCEDURE Q 5 MINUTES PRN, 5 doses, Starting on Juany 11/16/17 at 1247, Until Juany 11/16/17 at 1744, Pain, Mild, For pain scale 1-3, Routine, PACU morphine injection 2 mg 2 mg, IV, POST-PROCEDURE Q 5 MINUTES PRN, 5 doses, Starting on Juany 11/16/17 at 1249, Until Juany 11/16/17 at 1744, Pain, Mild, For pain scale 1-3, Routine, PACU morphine injection 4 mg 4 mg, IV, POST-PROCEDURE Q 5 MINUTES PRN, 2 doses, Starting on Juany 11/16/17 at 1247, Until Juany 11/16/17 at 1340, Pain, Moderate, For pain scale 4-6, Routine, PACU Given 11/16/2017 1:40 PM CDT 4 mg Given 11/16/2017 1:35 PM CDT 4 mg morphine injection 4 mg 4 mg, IV, POST-PROCEDURE Q 5 MINUTES PRN, 2 doses, Starting on Juany 11/16/17 at 1249, Until Juany 11/16/17 at 1744, Pain, Moderate, For pain scale 4-6, Routine, PACU morphine injection 6 mg 6 mg, IV, POST-PROCEDURE Q 5 MINUTES PRN, 2 doses, Starting on Juany 11/16/17 at 1247, Until Juany 11/16/17 at 1744, Pain, Severe, For pain scale 7-10, Routine, PACU morphine injection 6 mg 6 mg, IV, POST-PROCEDURE Q 5 MINUTES PRN, 2 doses, Starting on Juany 11/16/17 at 1249, Until Juany 11/16/17 at 1744, Pain, Severe, For pain scale 7-10, Routine, PACU ondansetron (ZOFRAN) 4 mg/2 mL injection 4 mg 4 mg, IV, POST-PROCEDURE ONCE PRN, 1 dose, Starting on Juany 11/16/17 at 1247, Until Juany 11/16/17 at 1744, Nausea/Emesis, Routine, PACU ondansetron (ZOFRAN) 4 mg/2 mL injection 4 mg 4 mg, IV, POST-PROCEDURE ONCE PRN, 1 dose, Starting on Juany 11/16/17 at 1249, Until Juany 11/16/17 at 1744, Nausea/Emesis, Routine, PACU oxyCODONE-acetaminophen (PERCOCET) 10-325 mg per tablet 1 Tablet 1 Tablet, Oral, EVERY 4 HOURS PRN, Starting on Juany 11/16/17 at 1148, Until Juany 11/16/17 at 1744, Pain (See admin instructions), Routine Given 11/16/2017 3:03 PM CDT 1 Tablet oxyCODONE-acetaminophen (PERCOCET) 5-325 mg per tablet 1 Tablet 1 Tablet, Oral, EVERY 4 HOURS PRN, Starting on Juany 11/16/17 at 1146, Until Juany 11/16/17 at 1744, Pain (See admin instructions), Routine documented in this encounter Active and Recently Administered Medications Times are shown in CDT. Scheduled Medication Order 11/14/2017 11/15/2017 11/16/2017 bupivacaine-EPINEPHrine (SENSORCAINE-EPINEPHRINE) 0.25 %-1:200,000 injection 125 mg 125 mg (50 mL), Infiltration, ONE TIME ONLY, 1 dose, On Juany 11/16/17 at 1145, Routine, Intra-op 1145 (Due) ceFAZolin in sterile water (ANCEF) 2 gram/20 mL IV Syringe (PREMIX) 2,000 mg (COMPLETED) 2,000 mg, IV, PRE-PROCEDURE ONCE, 1 dose, Starting on Juany 11/16/17 at 0915, Until Juany 11/16/17 at 1213, Routine, Antibiotic Indication: Surgical prophylaxis 1153 (Given - Provid er: Izabela Edmond CRNA)1213 (Stopped - Provider: Izabela Edmond CRNA) lidocaine PF 2 % (XYLOCAINE MPF) injection 0.3 mL (COMPLETED) 0.3 mL, See Admin Instructions, PRE-PROCEDURE ONCE, 1 dose, Starting on Juany 11/16/17 at 0918, Until Juany 11/16/17 at 1000, Routine 1000 (Given - Provid er: Michelle Menchaca RN) Continuous Medication Order 11/14/2017 11/15/2017 11/16/2017 lactated Ringers solution IV, at 150 mL/hr, PRE-PROCEDURE CONTINUOUS, Starting on Juany 11/16/17 at 0930, Until Juany 11/16/17 at 1744, Routine 0959 (New Bag - Prov ider: Michelle Menchaca RN)1153 (Continue from Pre-Op - Provider: Izabela Edmond CRNA)1224 (Fluid Volume - Provider: Izabela Edmond CRNA)1225 (New Bag - Provider: Izabela Edmond CRNA)1256 (Fluid Volume - Provider: Izabela Edmond CRNA)1539 (Stopped - Provider: Malena Guillaume RN) PRN Medication Order 11/14/2017 11/15/2017 11/16/2017 bupivacaine-EPINEPHrine (PF) (SENSORCAINE MPF WITH EPI) 0.25 %-1:200,000 injection (CANCELED) INTRA-PROCEDURE PRN, Starting on Juany 11/16/17 at 1245, Until Juany 11/16/17 at 1301, Routine, Intra-op 1245 (Given - Provid er: Mylene Gutierrez MD - Comment: Injected into the operative site) dexamethasone (DECADRON) injection 8 mg 8 mg, IV, POST-PROCEDURE ONCE PRN, 1 dose, Starting on Juany 11/16/17 at 1248, Until Juany 11/16/17 at 1744, Other (See Comment), Nausea/Emesis, Routine, PACU dexamethasone (DECADRON) injection 8 mg 8 mg, IV, POST-PROCEDURE ONCE PRN, 1 dose, Starting on Juayn 11/16/17 at 1249, Until Juany 11/16/17 at 1744, Other (See Comment), Nausea/Emesis, Routine, PACU diphenhydrAMINE (BENADRYL) injection 12.5 mg 12.5 mg, IV, POST-PROCEDURE Q 6 HOURS PRN, Starting on Juany 11/16/17 at 1248, Until Juany 11/16/17 at 1744, Itching, Routine, PACU morphine injection 2 mg 2 mg, IV, POST-PROCEDURE Q 5 MINUTES PRN, 5 doses, Starting on Juany 11/16/17 at 1247, Until Juany 11/16/17 at 1744, Pain, Mild, For pain scale 1-3, Routine, PACU morphine injection 2 mg 2 mg, IV, POST-PROCEDURE Q 5 MINUTES PRN, 5 doses, Starting on Juany 11/16/17 at 1249, Until Juany 11/16/17 at 1744, Pain, Mild, For pain scale 1-3, Routine, PACU morphine injection 4 mg (COMPLETED) 4 mg, IV, POST-PROCEDURE Q 5 MINUTES PRN, 2 doses, Starting on Juany 11/16/17 at 1247, Until Juany 11/16/17 at 1340, Pain, Moderate, For pain scale 4-6, Routine, PACU 1335 (Given - Provid er: Eusebia Jeronimo RN)1340 (Given - Provider: Eusebia Jeronimo RN) morphine injection 4 mg 4 mg, IV, POST-PROCEDURE Q 5 MINUTES PRN, 2 doses, Starting on Juany 11/16/17 at 1249, Until Juany 11/16/17 at 1744, Pain, Moderate, For pain scale 4-6, Routine, PACU morphine injection 6 mg 6 mg, IV, POST-PROCEDURE Q 5 MINUTES PRN, 2 doses, Starting on Juany 11/16/17 at 1247, Until Juany 11/16/17 at 1744, Pain, Severe, For pain scale 7-10, Routine, PACU morphine injection 6 mg 6 mg, IV, POST-PROCEDURE Q 5 MINUTES PRN, 2 doses, Starting on Juany 11/16/17 at 1249, Until Juany 11/16/17 at 1744, Pain, Severe, For pain scale 7-10, Routine, PACU ondansetron (ZOFRAN) 4 mg/2 mL injection 4 mg 4 mg, IV, POST-PROCEDURE ONCE PRN, 1 dose, Starting on Juany 11/16/17 at 1247, Until Juany 11/16/17 at 1744, Nausea/Emesis, Routine, PACU ondansetron (ZOFRAN) 4 mg/2 mL injection 4 mg 4 mg, IV, POST-PROCEDURE ONCE PRN, 1 dose, Starting on Juany 11/16/17 at 1249, Until Juany 18 at 1744, Nausea/Emesis, Routine, PACU oxyCODONE-acetaminophen (PERCOCET) 10-325 mg per tablet 1 Tablet 1 Tablet, Oral, EVERY 4 HOURS PRN, Starting on Juany 11/16/17 at 1148, Until Juany 18 at 1744, Pain (See admin instructions), Routine 1503 (Given - Provid er: Malena Guillaume RN) oxyCODONE-acetaminophen (PERCOCET) 5-325 mg per tablet 1 Tablet 1 Tablet, Oral, EVERY 4 HOURS PRN, Starting on Juany 11/16/17 at 1146, Until Juany 11/16/17 at 1744, Pain (See admin instructions), Routine sodium chloride 0.9 % irrigation 500 mL with bacitracin (BACI-IM) 50,000 Units IRRIGATION (COMPLETED) Irrigation, INTRA-PROCEDURE PRN, 1 dose, Starting on Juany 11/16/17 at 1131, Until Juany 11/16/17 at 1244, PRN intra-op, Routine, Intra-op, Antibiotic Indication: Surgical prophylaxis 1244 (Given - Provid er: Mylene Gutierrez MD - Comment: PRN intra-op via bulb syringe) documented in this encounter Care Teams Furniture Packer Relationship Specialty Start Date End Date Gadiel Zavala MD [address] [place] [id number] PCP - General Family Practice 03/03/17 documented as of this encounter
--- OUTSIDE RECORDS SUMMARY | 2024-04-17 11:46 | XMS_ITS | Encounter Summary ---
Author Organization [facility] Address 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 Operating Room [address] [place] [address] Mylene Gutierrez MD [address] [facility] [address] [address] -x0 (Work) SPINAL CORD DORSAL COLUMN STIMULATOR REMOVAL Surgery Details Date/Time Status Location OR Service Patient Class Case Class Case Type Trauma Case? 11/16/2017 10:45 AM Posted [facility] OR MAIN OR 30 Neurological Surgery Surgical OP/Extended Care Elective No Panel 1 Procedure LRB Anes Op Region Wound Class Comments SPINAL CORD DORSAL COLUMN ST IMULATOR REMOVAL N/A General Back Clean-I Surgeon Surgeon Role Service Panel Mylene Gutierrez MD Primary Neurological Surgery 1 Case Notes [employer], AUTH # [id number], CPT 18973, 30617 documented in this encounter Social History Tobacco [...] Sign Reading Time Taken Comments Blood Pressure 150/88 11/16/2017 1:05 PM CDT Pulse 100 11/16/2017 1:05 PM CDT Temperature 37.3 ??C (99.2 ??F) 11/16/2017 1:05 PM CD T Respiratory Rate 10 11/16/2017 1:05 PM CDT Oxygen Saturation 100% 11/16/2017 1:05 PM CDT Inhaled Oxygen Concentration - - Weight 58.5 kg (128 lb 14.4 oz) 11/16/2017 9:40 AM CDT Height - - Body Mass Index 23.2 11/07/2017 1:46 PM CDT documented in this encounter Discharge Instructions * Discharge Instructions* Alexa Snider RN - 11/16/2017 2:53 PM CDT If you do not already have a follow up appt, call the office ([phone]) in the next 1-2 business days to [...] to the Emergency Room at [facility] ([phone]) or the nearest Emergency Room. 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 atorvastatin (LIPITOR) 20 mg tablet Take 20 [...] PM CDT Brief Postoperative Note Kaitlin Bond [id number] Pre-operative Diagnosis: chronic pain Post-operative Diagnosis: Same [...] Shay PA - 11/16/2017 11:15 AM CDT [place], [place] [address] HISTORY AND PHYSICAL PATIENT NAME: Kaitlin Bond CSN: [id number] ADMITTING PHYSICIAN: Mylene Gutierrez MD PRIMARY CARE [...] TUBAL LIGATION ??? KYPHOPLASTY, LUMBAR 2016 ??? RI CERV SPINE FUSN,ANTER,BELOW C2 N/A 02/16/2017 CERVICAL DISCECTOMY FUSION 1 LEVEL ANTERIOR, C3-4 performed by Mylene Gutierrez MD at [facility] OR [facility] Allergies Allergen Reactions ??? Adhesive Rash [...] as needed for Pain, Moderate Now takes 10/325. 03/14/17 Yes Yasmin Vieyra, DO omeprazole (PriLOSEC) 40 mg Capsule, Delayed Release(E.C.) Take 40 mg by mouth daily. 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 Yes Provider, Historical atorvastatin (LIPITOR) 20 mg [...] by mouth 2 times daily. 03/14/17 Yasmin Vieyra DO sennosides-docusate sodium (SENNA-S) 8.6-50 mg tablet [...] and consents to surgery. Letty Shay PA-C [phone] documented in this encounter OR Notes * Operative Report - Mylene Gutierrez MD - 11/16/2017 11:10 PM CDT [place], [place] [address] Operative Report CSN: [id number] DATE OF SERVICE: 11/16/2017 SURGEON Mylene Gutierrez MD PREOPERATIVE DIAGNOSIS Nonfunctional spinal cord stimulator with chronic pain. POSTOPERATIVE DIAGNOSIS Nonfunctional spinal cord stimulator with chronic pain. OPERATION NAME Removal of spinal cord stimulator percutaneous electrodes, right and left; and removal of spinal cord stimulator generator. ANESTHESIA engineering clerk ZEHRA Al, who participated in both transportation [...] not seem to be grossly infected, but Idid send it off for culture. Once I had the generator out of the pocket, I cut the electrodes just a t the base of the generator. I then [...] deeper tissues, then by reapproximating the skin edges, and lastly closing the skin using skin glue. The patient was turned back in the supine position, extu bated without difficulty, and taken to the PACU in hemodynamically stable condition. There were no complications for this case. All sponge and needle counts were correct. TQ:MEDQ DID: [id number] Dictated by: Mylene Gutierrez MD * Simran-OP [...] pain/comfort utilizing verbal/nonverbal pain scales; assess culturalor gnosticist indicators attached to pain; administer pain medications [...] pain/comfort utilizing verbal/nonverbal pain scales; assess culturalor gnosticist indicators attached to pain; administer pain medications [...] AM CDT LOW BACK PAIN Case Notes [place], AUTH # [id number], CPT 01313, 35514 documented in this encounter Results * TELEMETRY REPORT (11/16/2017 9:53 PM CDT) Provider Scanning ECG ORDERABLES * ANAEROBIC/AEROBIC CULTURE W GRAM STAIN (11/16/2017 12:31 PM CDT) CULTURE No aerobic or anaerobic growth 11/21/2017 9:40 AM CDT [facility] GRAM STAIN No organisms observed 11/21/2017 9:40 AM CDT [facility] GRAM STAIN 1+ (Rare or Occasional) WBC 11/21/2017 9:40 AM CDT [facility] Tissue (Back, lower) Collection / Unknown 11/16/2017 12:31 PM CDT 11/16/2017 1:33 PM CDT Mylene Gutierrez MD MICROBIOLOGY - GENER AL ORDERABLES [facility]# [id number] [address] [place] [id number] documented in this encounter Visit Diagnoses Not on filedocumented in this encounter Administered Medications Inactive Administered Medications - up to 3 most recent administrations Medication Order MAR Action Action Date Dose Rate Site bupivacaine-EPINEPHrine (PF) (SENSORCAINE MPF WITH EPI) 0.25 %-1:200,000 injection INTRA-PROCEDURE PRN, Starting on Juany 11/16/17 at 1245, Until Juany 11/16/17 at 1301, Routine, Intra-op Given 11/16/2017 12:45 PM CDT 10 mL Operative Site dexamethasone (DECADRON) injection 8 mg 8 [...] mL with bacitracin (BACI-IM) 50,000 Units IRRIGATION Irrigation, INTRA-PROCEDURE PRN, 1 dose, Starting on Juany 11/16/17 at 1131, Until Juany 11/16/17 at 1244, PRN intra-op, Routine, Intra-op, Antibiotic Indication: Surgical prophylaxis Given 11/16/2017 12:44 PM CDT 500 mL Operative Site documented in this encounter Active and [...] syringe) documented in this encounter Care Teams Senior Systems Developer Relationship Specialty Start Date End Date Gadiel Zavala MD [address] [place] [phone] PCP - General Family Practice 03/03/17 documented as of this encounter
--- OUTSIDE RECORDS SUMMARY | 2024-04-17 11:46 | XMS_ITS | Encounter Summary ---
Author Organization [facility] Address [address] [place] [address] Care Team Providers Care Box Spring Frame Builder Name Role Phone [facility], External Provider Primary Care Provider U [email or web address] Encounter Details Date Type Department Care Team (Latest Contact Info) Description 02/14/2017 9:37 AM CDT - 02/14/2017 11:59 PM CDT Hospital Encounter [facility] [address] [place] [address] Mylene Gutierrez MD [address] [facility] [address] [address] -x0 (Work) Discharge Disposition: Home or Self Care Anesthesia Record Procedure Summary Procedure Name Responsible Anesthesiologist Anesthesia Start Time Anesthesia Stop Time CERVICAL DISCECTOMY FUSION 1 LEVEL ANTERIOR, C3-4 (Spine Cervical) Dale Duque MD 02/16/17 1250 02/16/17 1453 Events Date Time Event Comment 02/16/2017 1249 1250 AN Equip Check Anesthesia eq uipment and materials checked in accordance with local policy. 1250 An Start 1250 An Start Data 1252 Pre-Induction Immediate pre- induction anesthetic assessment performed. Vital signs as noted on graphic. 1256 An Induction 1300 An Intubation 1302 Anesthesia Ready 1342 Handoff - Intraop Anesthesio logy transfer of care elements completed in accordance with procedure. Delg[place]illo to [place] 1442 An Extubation Emergence unev entful Awake, spontaneous respirations. Adequate muscle strength demonstrated Adequate tidal volume. Orapharynx suctioned. Extubated with positive pressure ventilation. 1450 an stop data 1453 An Stop 02/17/2017 0721 Follow-up Complete Meds * Agents No agents on file. * Blood No blood administrations on file. Lines, Drains, and Airways Type Details Placement Removal Peripheral IV Pre-Hospital Start: No; Orientation: Left; Location: Arm; Device: Angiocath; Gauge: 18 gauge; Needle Length: 1.25 in length; Insertion Attempts: 1 02/16/17 1142 by Kati Mooney RN 02/17/17 1039 by Jayne Lovell Endotracheal Airway Type: ETT, Oral; Cuf f Pressure: minimal leak technique, minimal occluding volume, cuff inflated; Size: 7; Site: mouth; Attempts: 1; FOV: I; cm: 19; Device: Video Laryngoscope (Glidescope used in order to keep neck in line prior to ACDF); Blade: 3; Secured: secured with tape; Verification: Auscultated bilateral breath sounds, Equal chest movement, Continuous waveform capnography 02/16/17 1300 by Boom Delgadillo AA-C 02/16/17 1442 by Boom Delgadillo AA-C Adult Incision 02/16/17; 1433; surg ical incision; Bilateral; neck; 02/17/17; 2243 02/16/17 1433 by Carolina Calles RN 02/17/17 2243 by PROVIDER, DISCHARGE PATIENT documented in this encounter Social History Tobacco Use Types Packs/Day Years Used Date Smoking Tobacco: Former Cigarettes - 1988 Smokeless Tobacco: Never Comments:4 per [...] Sign Reading Time Taken Comments Blood Pressure 153/94 02/14/2017 9:48 AM CDT Pulse 80 02/14/2017 9:48 AM CDT Temperature - - Respiratory Rate - - Oxygen Saturation 97% 02/14/2017 9:48 AM CDT Inhaled Oxygen Concentration - - Weight 64 kg (141 lb) 02/14/2017 9:48 AM CDT Height 160 cm (5' 3 ) 02/14/2017 9:48 AM CDT Body Mass Index 24.98 02/14/2017 9:48 AM CDT documented in this encounter Medications at Time of Discharge Medication Sig Dispensed Refills Start Date End Date omeprazole (PriLOSEC) 40 mg Capsule, Delayed Release(E.C.) Take 40 mg by mouth 2 times daily. levothyroxine 50 mcg tablet Take 50 mcg by mouth daily podiatric physician. atorvastatin (LIPITOR) 20 mg tablet Take 20 [...] by mouth nightly as needed for Insomnia. celecoxib (CeleBREX) 200 mg capsule Take 200 mg by mouth daily at bedtime. 02/17/2017 oxyCODONE-acetaminophen (PERCOCET) 7.5-325 mg Tablet Take 1 Tablet by mouth every 8 hours as needed for Pain, Moderate. 03/03/2017 diazePAM (VALIUM) 5 mg tablet Take 1 Tablet (5 mg) by mouth every 8 hours as needed for Spasm or Discomfort. Do not take with sleeping aid/Lunesta. 60 Tablet 02/17/2017 03/14/2017 documented as of this encounter OR Notes * Anesthesia PAT Evaluation - Yi Ledezma FNP - 02/14/2017 10:39 AM CDT Pre-Procedure Anesthesiology Consultation and Evaluation (PACE) Service 02/14/2017 10:39 AM Name: Kaitlin Bond Age: 66 y.o. Sex: female CSN: [id number] Procedure: ACDF C3-4 Allergies Allergen Reactions ??? Adhesive Rash Current Outpatient Prescriptions Medication Sig Dispense Refill ??? celecoxib (CeleBREX) 200 mg capsule Take 200 mg by mouth daily at bedtime. ??? omeprazole (PriLOSEC) 40 mg Capsule, Delayed Release(E.C.) Take 40 mg by mouth daily. ??? levothyroxine 50 mcg tablet Take 50 mcg by mouth daily podiatric physician. ??? atorvastatin (LIPITOR) 20 mg tablet Take [...] needed for Insomnia. No current facility-administered medications for this encounter. Advised pt to take the following medications AM DOS: Prilosec, Levothyroxine, Prozac, Percocet if needed Advised pt to stop the following medications on : ASA/NSAIDs per surgeon There are no active problems to display for this patient. Past Medical History: Diagnosis Date ??? Anxiety [...] HX TUBAL LIGATION ??? KYPHOPLASTY, LUMBAR 2017 Social History Substance Use Topics ??? Smoking status: Former Smoker Years: 5.00 Types: Cigarettes Quit date: 1988 ??? Smokeless tobacco: Never Used Comment: 4 per day ??? Alcohol use Yes Comment: 1-2 times per month 1 drink No family history on file. Previous Anesthesia Problems/Concerns: PONV- severe, slow to wake ; H/o motion sickness History of PONV Yes Review of Systems Cardiovascular: positive for HTN, hypercholesterolemia; denies cp or sob. Respiratory: negative,Snoring - No, ROSETTA - No Gastrointestinal: positive for reflux symptoms and h/o PUD. Genitourinary:negative. Musculoskeletal: positive for myalgias, arthralgias, stiff joints, neck pain and back pain Neurological: positive for neuropathy Endocrine positive for hypothyroidism Hepatic negative Exercise tolerance able to go up a flight of stairs w/o cp Tobacco quit 1988 PHYSICAL EXAM BP (!) 153/94 (BP Location: Left arm, Patient Position (BP): Sitting) Pulse 80 Ht 5' 3 (1.6 m) Wt 64 kg (141 lb) SpO2 97% BMI 24.98 kg/m?? Weight: Weight: 64 kg (141 lb) (02/14/17 0948) Height: Ht Readings from Last 1 Encounters: 02/14/17 5' 3 (1.6 m) BMI: Body mass index is 24.98 kg/m??. General Appearance: Alert, oriented, no acute distress Airway: normal range of motion; Airway Class: II (soft palate, uvula, fauces visible); Special Considerations None Dentition: good Lungs: clear to auscultation bilaterally, normal respiratory effort Heart: regular rate and rhythm, S1, S2 normal, no murmur, click, rub or gallop Neuro: alert, oriented x 3, no defects noted in general exam. Extremities: extremities normal, atraumatic, no cyanosis or edema LABS No results found for: WBC, MANUALWBC, HGB, HGBPOC, HCT, HCTPOC, PLT, MCV No results found for: NA, K, CL, CO2, CA, BUN, CREAT, GLUCOSE, ANIONGAP, BCRATIO No results found for: INR, PT, PROTIMEPOC No results found for: HCGURPOC, HCGQUALUR, HCGQUAL, HCGQUANT, HCGINTACT EKG: EKG not indicated today Other Studies/Considerations: None Risks/Alternatives discussed. Questions solicited and answered. Yes Postop pain management discussed yes Smoking/Tobacco Counseling: None Recommendations:ROSETTA precautions or Nausea prophylaxis ATTESTATIONS (Not in a hospital admission) I obtained, updated or reviewed the patient's current medications including dosage, frequency, and route of administration. This information was obtained directly from the patient or shared services representative or caregiver or another available healthcare resource and updated in [facility] EMR. History Smoking Status ??? Former Smoker ??? Years: 5.00 ??? Types: Cigarettes ??? Quit date: 1988 Smokeless Tobacco ??? Never Used Comment: 4 per day Patient screened for tobacco use and identified as a Non-User of tobacco. REPORT AND NECESSARY FOLLOW-UP History and physical performed in [place]; tests (ECG, blood work) reviewed. Abnormal Results Found: no Further Testing or Evaluation Required: no Final [place] Center Review: May proceed with procedure/surgery: yes Stop bang score is 3. WICHO Barcenas * Simran-OP - Luz Elena Llanos RN - 02/14/2017 10:18 AM CDT Patient was instructed to avoid shaving the surgical site for 24 hours prior to surgery. Patient instructed to not use/wear lotion, oils, cream or deodorant day of surgery. Patient instructed to stop taking vitamins and herbal supplements 7 days prior to scheduled surgerydate. Patient also instructed to stop taking aspirin and NSAIDs (unless instructed otherwise by surgeon) 7 days prior to their scheduled surgery date.Patient instructed to use the provided Chlorhexidine soap sponge(s) to clean the surgical site while in the shower the night before surgery and repeat same instructions the morning of surgery. Written detailed instructions reviewed with patient. Patient verbalized understanding of shower and soaps. Pt aware not to shave the surgical site. documented in this encounter Plan of Treatment Not on file documented as of this encounter Procedures Procedure Name Priority Date/Time Associated Diagnosis Comments CBC WITHOUT DIFFERENTIAL Routine 02/14/2017 10:06 AM CDT TYPE AND SCREEN Routine 02/14/2017 10:06 AM CDT EDUCATION ANTERIOR CERVICAL DISCECTOMY AND FUSION Routine 02/14/2017 9:57 AM CDT documented in this encounter Results * (ABNORMAL) CBC WITHOUT DIFFERENTIAL (02/14/2017 10:06 AM CDT) WBC 6.1 4.0 - 9.8 K/uL 02/14/2017 10:57 AM CDT [facility] RBC 4.29 3.90 - 4.90 M/uL 02/14/2017 10:57 AM CDT [facility] - [facility] HEMOGLOBIN 13.0 11.8 - 14.8 g/dL 02/14/2017 10:57 AM CDT [facility] HEMATOCRIT 38.6 35.5 - 44.0 % 02/14/2017 10:57 AM CDT [facility] - . [facility] MCV 90.0 82.0 - 99.0 fL 02/14/2017 10:57 AM CDT [facility] MCH 30.3 27.2 - 32.6 pg 02/14/2017 10:57 AM CDT [facility] MCHC 33.7 31.5 - 35.5 g/dL 02/14/2017 10:57 AM CDT [facility] PLATELETS 351(H) 140 - 350 K/uL 02/14/2017 10:57 AM CDT [facility] MPV 9.7 9.3 - 12.4 fL 02/14/2017 10:57 AM CDT [facility] RDW 12.6 11.5 - 14.5 % 02/14/2017 10:57 AM CDT [facility] RDW-STDEV 41.4 37.1 - 48.7 fL 02/14/2017 10:57 AM CDT [facility] Blood Venipuncture / Unknown 02/14/2017 10:06 AM CDT 02/14/2017 10:41 AM CDT Arya Escamilla MD HEMATOLOGY ORDERABLE S [facility] [employer]# [id number] [address] [place] [address] * TYPE AND SCREEN (02/14/2017 10:06 AM CDT) ABO GROUP A 02/14/2017 10:06 AM CDT [facility] -- [facility] RH (D) TYPE Positive 02/14/2017 10:06 AM CDT [facility] -- [facility] ANTIBODY SCREEN Negative 02/14/2017 10:06 AM CDT [facility] -- [facility] Blood Venipuncture / Unknown 02/14/2017 10:06 AM CDT 02/14/2017 10:41 AM CDT Mylene Gutierrez MD BLOOD BANK ORDERABLE S [facility] [facility] -- [facility]# [id number] [address] [place] [address] * EDUCATION ANTERIOR CERVICAL DISCECTOMY AND FUSION - LU (02/14/2017 9:57 AM CDT) Education Name ANTERIOR CERVICAL DISCECTOMY AND FUSION LU EDUCATION INTERFACE Education URL [email or web address] LU EDUCATION INTERFACE EDUCATION ACCESS CODE [id number] LU EDUCATION INTERFACE EDUCATION ISSUE DATE Feb 14, 2017 LU EDUCATION INTERFACE EDUCATION START DATE LU EDUCATION INTERFACE EDUCATION COMPLETED DATE This program was not started and flagged as on: Mar 17, 2017 LU EDUCATION INTERFACE EDUCATION EXPIRATION DATE Mar 16, 2017 LU EDUCATION INTERFACE EDUCATION MESSAGE EVENT LU EDUCATION INTERFACE 02/14/2017 9:57 AM CDT Mylene Gutierrez MD EXTERNAL EDUCATION O RDERABLES LU EDUCATION INTERFACE documented in this encounter Visit Diagnoses Not on filedocumented in this encounter Care Teams Box Spring Frame Builder Relationship Specialty Start Date End Date [facility], External Provider [address] [place] [address] PCP - General 01/17/17 03/02/17 documented as of this encounter
--- OUTSIDE RECORDS SUMMARY | 2024-04-17 11:46 | XMS_ITS | Encounter Summary ---
Author Organization [facility] Address [address] [place] [address] Care Team Providers Care Is Analyst Name Role Phone [facility], External Provider Primary Care Provider U navailable Reason for Visit * Auth/Cert Specialty Diagnoses / Procedures Referred By Delores t Referred To Contact General Surgery Diagnoses CERVICAL SPONDYLOSIS Procedures CERVICAL DISCECTOMY FUSION 1 LEVEL ANTERIOR [facility] Or [address] [place] [address] Referral ID Status Reason Start Date Expiration Date Visits Re quested Visits Authorized [id number] 1 1 Encounter Details Date Type Department Care Team (Late st Contact Info) Description 02/16/2017 12:50 PM CDT Anesthesia Event [facility] Operating Room [address] [place] [address] Dale Duque MD [address] [place] [address] Boom Delgadillo AA-C [address] [place] [id number] Anesthesia Record Procedure Summary Procedure Name Responsible [...] completed in accordance with procedure. Delgadillo to [place] 1442 An Extubation Emergence unev entful Awake, spontaneous respirations. Adequate muscle strength demonstrated Adequate tidal volume. Orapharynx suctioned. Extubated with positive pressure ventilation. 1450 an stop data 1453 An Stop 02/17/2017 0721 Follow-up Complete Meds Name Total ceFAZolin (ANCEF) IVPB 2,000 mg 2,000 mg midazolam PF (VERSED) 1 mg/mL injection 2 mg fentaNYL (SUBLIMAZE) PF 50??mcg/mL injec tion 350 mcg lidocaine (XYLOCAINE) 2% syringe 100 mg propofol (DIPRIVAN) 10??mg/mL injection 200 mg propofol (DIPRIVAN) 10??mg/mL injection 290.93 mg rocuronium (ZEMURON) 10 mg/mL 5 mL injec tion 30 mg dexamethasone (DECADRON) 4 mg/mL injecti on 4 mg diphenhydrAMINE (BENADRYL) 50 mg/mL inje ction 12.5 mg ondansetron (ZOFRAN) 4??mg/2 mL injectio n 4 mg phenylephrine in NS (PF) 0.5 mg/5 mL syr jorge 100 mcg glycopyrrolate (ROBINUL) 0.4 mg/2 mL (0. 2 mg/mL) syringe 0.4 mg neostigmine (PROSTIGMINE) 4 mg/4 mL (1 m g/mL) injection 2 mg lactated Ringers solution 1,200 mL * Agents Name Air Sevoflurane % Sevoflurane O2 N2O Inspired N2O O2 * Blood [...] of this encounter OR Notes * Anesthesia Post-Op Follow-up Note - Miranda Choi CRNA - 02/17/2017 7:21 AM CDT 02/17/2017 0721 Kaitlin Bond No apparent Anesthesia related complications Miranda Choi CRNA * Anesthesia Postprocedure Evaluation - Brice Trevino MD - 02/16/2017 3:05 PM CDT Post Anesthesia Evaluation Vitals: BP (!) 159/90 (Patient Position (BP): Supine) Pulse 96 Temp 36.6 ??C (Temporal) Resp 14 Ht 5' 3 (1.6 m) Wt 62.7 kg (138 lb 3.2 oz) SpO2 99% BMI 24.48 kg/m?? Pain Rating: Pain Rating: Rest: 6 (02/16/17 1504) Nausea/Vomiting: no nausea and no vomiting Post-Op hydration: well hydrated Respiratory function: no respiratory symptoms Airway patency: normal Cardiovascular function: Normal - Regular rate and rhythm Mental status, LOC: 0=alert; keenly responsive Patient participated in evaluation: yes Unanticipated Events: no Brice Trevino MD * Anesthesia Handoff - Garret Delgadillo AA-C - 02/16/2017 2:52 PM CDT Post-Anesthetic transfer of care report [...] and acknowledgement of understanding. Vital Signs: BP: 157/98 (02/16/2017 2:44 PM) Pulse: 99 (02/16/2017 2:44 PM) Temp: 36.6 ??C (02/16/2017 2:44 PM) Resp: 16 (02/16/2017 2:44 PM) SpO2: 100 % (02/16/2017 2:44 PM) 2:52 PM RAGHU Montez * Anesthesia Preprocedure Evaluation - Dale Duque MD - 02/16/2017 12:48 PM CDT Relevant Problems No active problems are marked relevant to this note. Anesthesia Evaluation Anesthesia Plan ASA 3 General Intravenous induction Oral ETT airway maintenance NPO status > 8 hours Anesthetic plan and risks discussed with Patient. Plan discussed with Anesthesiologist Field Service Representative. Plan for postoperative opioid use Smoking Compliance Patient did not smoke on day of surgery Pre-Anesthesia Evaluation - Long Form 02/16/2017 12:48 PM Name: Kaitlin Bond Age: 66 y.o. Sex: female CSN: [id number] Procedure: Procedure(s): CERVICAL DISCECTOMY FUSION 1 LEVEL ANTERIOR, C3-4 Surgeons/Assistants: Surgeon(s) and Role: * Mylene Gutierrez MD - Primary Allergies Allergen Reactions ??? Adhesive Rash Prescriptions Prior to Admission Medication Sig Dispense Refill Last Dose ??? omeprazole (PriLOSEC) 40 mg Capsule, Delayed Release(E.C.) Take 40 mg by mouth daily. 02/16/2017 at 815 ??? 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 02/16/2017 at 815 ??? atorvastatin (LIPITOR) 20 mg tablet Take 20 mg by mouth late in the day. 02/15/2017 at Unknown time ??? lisinopril (PRINIVIL) 40 mg tablet Take 40 mg by mouth daily at bedtime. 02/15/2017 at Unknown time ??? FLUoxetine (PROzac) 40 mg capsule Take 40 mg by mouth daily at bedtime. 02/15/2017 at Unknown time ??? oxyCODONE-acetaminophen (PERCOCET) 7.5-325 mg Tablet Take 1 Tablet by mouth every 8 hours as needed for Pain, Moderate. 02/16/2017 at 815 ??? eszopiclone (LUNESTA) 3 mg Tablet Take 5 mg by mouth nightly as needed for Insomnia. 02/15/2017at Unknown time ??? celecoxib (CeleBREX) 200 mg capsule Take 200 mg by mouth daily at bedtime. 02/13/2017 ??? DULoxetine (CYMBALTA) 60 mg Capsule, Delayed Release(E.C.) Take 60 mg by mouth daily at bedtime. ??? cyanocobalamin (VITAMIN B-12) 100 mcg tablet Take 100 mcg by mouth daily. 02/09/2017 ??? calcium-cholecalciferol, D3, (CALTRATE 600 + D) 600 mg (1,500 mg)-800 unit Tablet, Chewable tablet Take by mouth daily. 02/09/2017 There are no active problems to display [...] family history on file. Previous Anesthesia Problems/Concerns: No anesthesia problems/complications History of PONV Yes Review of Systems Cardiovascular: +htn Respiratory: occ snoring Gastroenterology: positive for reflux symptoms PHYSICAL EXAM BP (!) 155/90 (BP Location: Left arm, Patient Position (BP): Sitting) Pulse 86 Temp 36.8 ??C (Temporal) Resp 18 Ht 5' 3 (1.6 m) Wt 62.7 kg (138 lb 3.2 oz) SpO2 98% BMI 24.48 kg/m?? Weight: Weight: 62.7 kg (138 lb 3.2 oz) (02/16/17 1049) Height: Ht Readings from Last 1 Encounters: 02/16/17 5' 3 (1.6 m) BMI: Body mass index is 24.48 kg/m??. Airway: limited extension: Airway Class: II (soft palate, uvula, fauces visible); None Lungs: clear to auscultation bilaterally, normal respiratory effort Heart: regular rate and rhythm, S1, S2 normal, no murmur, click, rub or gallop Neuro: alert, oriented x 3, no defects noted in general exam. Vascular Access: Peripheral Line LABS Lab Results Component Value Date/Time WBC 6.1 02/14/2017 10:06 AM HEMOGLOBIN 13.0 02/14/2017 10:06 AM HEMATOCRIT 38.6 02/14/2017 10:06 AM PLATELETS 351 (H) 02/14/2017 10:06 AM MCV 90.0 02/14/2017 10:06 AM No results found for: NA, K, CL, CO2, CA, BUN, CREAT, GLUCOSE, ANIONGAP, BCRATIO No results found for: INR, PT, PROTIMEPOC No results found for: HCGURPOC, HCGQUALUR, HCGQUAL, HCGQUANT, HCGINTACT No results found for: GLUCPOC EKG: Other Studies/Considerations: None ASA Physical Status: ASA 3 - Patient with moderate systemic disease with functional limitations I have seen and examined this patient and confirm that all data is current and accurate. Yes Choice of Anesthesia/Anesthesia Plan: Proceed and General I have discussed the anesthetic options and the risks/benefits with the patient/family. Questions have been solicited and answered. Yes Dale Duque MD documented in this encounter Miscellaneous Notes * Addendum Note - Miranda Choi CRNA - 02/17/2017 7:53 AM CDT Addendum created 02/17/17 0753 by Miranda Choi CRNA Anesthesia Event edited, Sign clinical note documented in this encounter Plan of Treatment Not on file documented as of this encounter Visit Diagnoses Not on filedocumented in this encounter Administered Medications Inactive Administered Medications - up to 3 most recent administrations Medication Order MAR Action Action Date Dose Rate Site ceFAZolin (ANCEF) IVPB 2,000 mg 2,000 mg, IV, PRE-PROCEDURE ONCE, 1 dose, Starting on Juany 02/16/17 at 1129, Until Juany 02/16/17 at 1306, Routine, Antibiotic Indication: Surgical prophylaxis Given 02/16/2017 1:06 PM CDT 2,000 mg dexamethasone (DECADRON) injection INTRA-PROCEDURE PRN, Starting on Juany 02/16/17 at 1311, Until Juany 02/16/17 at 1453, Routine, Anesthesia Intra-op Given 02/16/2017 1:11 PM CDT 4 mg diphenhydrAMINE (BENADRYL) injection INTRA-PROCEDURE PRN, Starting on Juany 02/16/17 at 1311, Until Juany 02/16/17 at 1453, Routine, Anesthesia Intra-op Given 02/16/2017 1:11 PM CDT 12.5 mg fentaNYL PF (SUBLIMAZE) 50 mcg/mL injection INTRA-PROCEDURE PRN, Starting on Juany 02/16/17 at 1254, Until Juany 02/16/17 at 1453, Pain (See admin instructions), Routine, Anesthesia Intra-op Given 02/16/2017 2:15 PM CDT 50 mcg Given 02/16/2017 2:13 PM CDT 50 mcg Given 02/16/2017 1:40 PM CDT 50 mcg glycopyrrolate (ROBINUL) injection INTRA-PROCEDURE PRN, Starting on Juany 02/16/17 at 1424, Until Juany 02/16/17 at 1453, Routine, Anesthesia Intra-op Given 02/16/2017 2:24 PM CDT 0.4 mg lactated Ringers solution IV, at 150 mL/hr, PRE-PROCEDURE CONTINUOUS, Starting on Juany 02/16/17 at 1130, Until Juany 02/16/17 at 1528, Routine New Bag 02/16/2017 2:27 PM CDT New Bag 02/16/2017 11:43 AM CDT 150 mL/hr lidocaine (XYLOCAINE) 60 mg/3 mL (2 %) syringe INTRA-PROCEDURE PRN, Starting on Juany 02/16/17 at 1256, Until Juany 02/16/17 at 1453, Routine, Anesthesia Intra-op Given 02/16/2017 12:56 PM CDT 100 mg midazolam (PF) (VERSED) injection INTRA-PROCEDURE PRN, Starting on Juany 02/16/17 at 1250, Until Juany 02/16/17 at 1453, Routine, Anesthesia Intra-op Given 02/16/2017 12:50 PM CDT 2 mg neostigmine (PROSTIGMINE) 4 mg/4 mL (1 mg/mL) injection INTRA-PROCEDURE PRN, Starting on Juany 02/16/17 at 1424, Until Juany 02/16/17 at 1453, Routine, Anesthesia Intra-op Given 02/16/2017 2:24 PM CDT 2 mg ondansetron (ZOFRAN) 4 mg/2 mL injection INTRA-PROCEDURE PRN, Starting on Juany 02/16/17 at 1424, Until Juany 02/16/17 at 1453, Nausea/Emesis, Routine, Anesthesia Intra-op Given 02/16/2017 2:24 PM CDT 4 mg phenylephrine in NS 0.5 mg/5 mL (100 mcg/mL) injection INTRA-PROCEDURE PRN, Starting on Juany 02/16/17 at 1316, Until Juany 02/16/17 at 1453, Routine, Anesthesia Intra-op Given 02/16/2017 1:16 PM CDT 100 mcg propofol (DIPRIVAN) injection INTRA-PROCEDURE PRN, Starting on Juany 02/16/17 at 1256, Until Juany 02/16/17 at 1453, Anesthesia Intra-op Given 02/16/2017 1:00 PM CDT 50 mg Given 02/16/2017 12:56 PM CDT 150 mg propofol (DIPRIVAN) injection INTRA-PROCEDURE CONTINUOUS PRN, Starting on Juany 02/16/17 at 1306, Until Juany 02/16/17 at 1453, Anesthesia Intra-op Rate Change 02/16/2017 2:23 PM CDT 50 mcg/kg/min 18.81 mL/hr Rate Change 02/16/2017 2:17 PM CDT 75 mcg/kg/min 28.22 mL/ hr Rate Change 02/16/2017 1:38 PM CDT 60 mcg/kg/min 22.57 mL/ hr rocuronium (ZEMURON) injection INTRA-PROCEDURE PRN, Starting on Juany 02/16/17 at 1257, Until Juany 02/16/17 at 1453, Routine, Anesthesia Intra-op Given 02/16/2017 12:57 PM CDT 30 mg documented in this encounter Care Teams Is Analyst Relationship Specialty Start Date End Date [facility], External Provider [address] [place] [address] PCP - General 01/17/17 03/02/17 documented as of this encounter
--- OUTSIDE RECORDS SUMMARY | 2024-04-17 11:47 | XMS_ITS | Clinical Summary ---
Author Organization [facility] Address [address] [place] [address] Care Team Providers Care Test Conductor Name Role Phone Gadiel Zavala MD Primary Care Provider [phone] Lyudmila Knox RN Unavailable Unavailable Jennifer Escalona RN Unavailable Agustina vailable Allergies Active Allergy Reactions Criticality Noted Date Comments Adhesive Tape-Silicones Rash Reaction: RASH Aspirin Dizziness Low 06/10/2013 Dizziness/Light Headed Dye Hives Medium 04/14/2017 Was getting MRI and developed hives while dye infusion. Gadolinium-Containing Contrast Media Hives,Urticaria High 02/28/2017 Gadopentetate Dimeglumine Hives Medium 04/14/2023 Reaction: Hives, Green Dye Unknown Medium 04/14/2017 Was getting MRI and developed hives while dye infusion. Latex Other (See comments) Low 10/31/2017 Pt states no. Is fine with gloves. Only allergy is to adhesive. Medications atorvastatin (LIPITOR) 20 mg tablet Take 1 tablet (20 mg total) by mouth daily 03/31/20 17 Active levothyroxine (SYNTHROID, LEVOTHROID) 50 mcg tablet Take 1 tablet (50 mcg total) by mouth daily 03/31/20 17 Active eszopiclone (LUNESTA) tabletIndicatio ns:Insomnia Take 1 tablet (3 mg total) by mouth nightly 1 04/25/20 17 Active omeprazole (PriLOSEC) 40 mg capsule Take 1 capsule (40 mg total) by mouth daily Two tablets daily Active metoprolol XL (TOPROL-XL) 25 mg extended release tablet 07/27/19 18 Active metoprolol XL (TOPROL-XL) 100 mg 24 hr tablet Take 1 tablet (100 mg total) by mouth daily TAKE IN COMBINATION WITH 25 MG TABLET Active aspirin (Adult Low Dose Aspirin) 81 mg enteric coated tablet Take 1 tablet (81 mg total) by mouth daily 03/29/20 22 Active vitamin E 400 unit capsule Take 1 capsule (400 Units total) by mouth Active acetaminophen (TYLENOL) 325 mg tablet Take 2 tablets (650 mg total) by mouth every 4 (four) hours as needed 03/01/20 17 Active ferrous sulfate 325 mg (65 mg of elemental iron) tabletIndicatio ns:Iron Deficiency Anemia Take 1 tablet (65 mg of elemental iron total) by mouth daily with breakfast Active coffee xt/phosphatidyl serine (NEURIVA ORIGINAL ORAL) Take 1 capsule by mouth daily Active DULoxetine DR (CYMBALTA) 60 mg capsule Take 1 capsule (60 mg total) by mouth 2 (two) times a day Active losartan (COZAAR) 25 mg tabletIndicatio ns:Essential hypertension Take 1 tablet by mouth once daily 90 tablet 04/02/20 24 Active losartan (COZAAR) 25 mg tabletIndicatio ns:Essential hypertension Take 1 tablet by mouth once daily 90 tablet 01/08/20 24 024 Discontinued Active Problems Problem Noted Date Diagnosed Date Presence of Amulet left atrial appendage closure device 11/16/2023 Surgical complication involv ing both eyes, unspecified complication 10/24/2023 Visit for wound check 08/15/2022 Status post placement of implantable loop record er 08/09/2022 Overview (11/24/2023): Medtronic LNQ22 Loop Recorder. Dx; Syncope, Afib. DOI 08/08/2022-Chris. [facility]. Amulet placed 11/16/23 Falls frequently 03/29/2022 Chronic anticoagulation 03/29/2022 Contraindication to anticoagulation therapy 03/02 Other thrombophilia 03/29/2022 Mixed hyperlipidemia 03/29/2022 Fall 03/01/2022 Paroxysmal atrial fibrillation (CMS/HCC) 022 Colon cancer (CMS/HCC) 09/15/2021 Overview (10/24/2023): Patient reported - diagnosis made 08/2021 Consecutive esotropia 07/30/2021 Consecutive alternating esotropia 07/07/2021 Exotropia, intermittent, monocular 12/28/2020 Diplopia 12/28/2020 Spondylosis of cervical joint without myelopathy 04/14/2017 Cervical spinal stenosis 04/14/2017 Chronic midline low back pain with bilateral sci atica 04/14/2017 Lumbosacral spondylosis without myelopathy 04/14 Radiculopathy, lumbosacral region 04/14/2017 Spinal stenosis of lumbar re gion without neurogenic claudication 04/14/2017 Lumbar post-laminectomy syndrome 04/14/2017 Somatic symptom disorder, pe rsistent, severe, with predominant pain 02/24/2017 Cervicalgia 07/10/2016 Cervical radiculopathy 07/10/2016 Postoperative back pain 07/10/2016 Herniation of intervertebral disc of cervical re gion 07/10/2016 Herniated lumbar intervertebral disc 07/10/2016 Compression fracture of lumbar vertebra 07/11/19 17 Chronic pain 07/10/2016 Lumbago 07/10/2016 Lumbosacral radiculopathy 07/10/2016 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 07/10/2016 Pain of lower extremity 07/07/2016 Shortness of breath 07/07/2016 Weakness 07/07/2016 Ataxia 07/07/2016 Hypertension 07/07/2016 Memory impairment 07/07/2016 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 Disease of thyroid gland 07/07/2016 Constipation 07/07/2016 Arthritis 07/07/2016 Pain of hand 07/07/2016 Notalgia 07/07/2016 Encounters Date Type Department Care Team Description 03/04/2024 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 Ancillary Procedure [facility] Cardiology [address] [facility] [address] [facility] [place] [address] Status post placement of implantable loop recorder (Primary Dx); PAF (paroxysmal atrial fibrillation) (CMS/HCC) (HCC); Syncope and collapse 02/08/2024 9:33 AM CDT - 02/08/2024 11:59 PM CDT Hospital Encounter [facility] Card[facility]atheter[facility] [address] [place] [address] Emilio Leggett MD Presence of Amulet left atrial appendage closure device Discharge Disposition: Discharge to home or self care 01/30/2024 Telephone [facility] Pre Anesthesia Testing [address] [place] [address] Melly Vazquez RN 01/22/2024 9:15 AM CDT Ancillary Procedure [facility] Cardiology [address] [place] [address] [place] [id number] Status post placement of implantable loop recorder (Primary Dx); PAF (paroxysmal atrial fibrillation) (CMS/HCC) (HCC); Syncope, unspecified syncope type from Last 3 Months Surgical History Surgery Date Site/Laterality Comments ANTERIOR FUSION CERVICAL SPINE x2 HYSTERECTOMY SPINE SURGERY lumbar COLON SURGERY 07/30/2021 - 08/28/2021 BIMEDIAL RECTUS RECESSION WITH DOWNWARD TRANSPOSITION CATARACT EXTRACTION, BILATERAL COLONOSCOPY EYE SURGERY Bilateral x4, attempted to fix double vision (unsuccessful) Medical History Medical History Date Comments Awareness under anesthesia Hypertension Hyperlipidemia Chronic back pain Neuropathy (CMS/HCC) GERD (gastroesophageal reflux disease) Hypothyroidism Depression Anemia Arthritis PONV (postoperative nausea and vomiting) Atrial fibrillation (CMS/HCC) (HCC) Cancer (CMS/HCC) (HCC) colon Peptic ulceration Hx of migraines Cataract Vision blurred Family History Medical History Relation Name Comments Leukemia Father Hypertension Mother Relation Name Status Comments Father Mother Social History Tobacco Use Types Packs/Day Years Used Date Smoking Tobacco: Former Cigarettes Q uit: 04/14/1987 Smokeless Tobacco: Never Tobacco Cessation:Counseling Given: Not Answered Alcohol Use Standard Drinks/Week Comments Yes 0 (1 standard drink = 0.6 oz pur e alcohol) social [employer] Utilities Answer Date Recorded In the past 12 months has [employer], gas, oil, or water [employer] threatened to shut off services in your home? No 11/17/2023 Social Connection and Isolat ion Panel [NHANES] Answer Date Recorded In a typical week, how many times do you talk on the phone with family, friends, or neighbors? More than three times a week 11/17/2023 How often do you get togethe r with friends or relatives? More than three times a week 11/17/2023 How often do you attend [facility] or adventist services? Never 11/17/2023 Do you belong to any clubs o r organizations such as denominational groups, unions, fraternal or athletic groups, or school groups? No 11/17/2023 How often do you attend meet ings of the clubs or organizations you belong to? Never 11/17/2023 Are you , , di vorced, , never , or living with a partner? 11/17/2023 AUDIT-C Answer Date Recorded Q1: How often do you have a drink containing alc ohol? Monthly or less 11/16/2023 Q2: How many drinks containi ng alcohol do you have on a typical day when you are drinking? 1 or 2 11/16/2023 Q3: How often do you have si x or more drinks on one occasion? Never 11/16/2023 Overall Financial Resource Strain (CARDIA) Answe r Date Recorded How hard is it for you to pa y for the very basics like food, housing, medical care, and heating? Not hard at all 11/17/2023 Hunger Vital Sign Answer Date Recorded Within the past 12 months, y ou worried that your food would run out before you got the money to buy more. Never true 11/17/19 24 Within the past 12 months, t he food you bought just didn't last and you didn't have money to get more. Never true 11/17/2023 PRAPARE - Transportation Answer Date Re corded In the past 12 months, has l ack of transportation kept you from medical appointments or from getting medications? No 10/29 In the past 12 months, has l ack of transportation kept you from meetings, work, or from getting things needed for daily living? No 11/17/2023 Housing Stability Vital Sign Answer Romel e Recorded In the last 12 months, was t here a time when you were not able to pay the mortgage or rent on time? No 11/17/2023 In the past 12 months, how m any times have you moved where you were living? 0 11/17/2023 At any time in the past 12 m [facility], were you homeless or living in a long-term (including now)? No 11/17/2023 Personal Safety Answer Date Recorded Have you ever been in or are you currently in a harmful physical or emotional relationship or is someone making you feel afraid or unsafe? 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 Gender Identity Not on file Sexual Orientation Not on file Obstetrics History Last Filed Vital Signs Vital Sign Reading Time Taken Comments Blood Pressure 143/76 02/08/2024 12:25 PM CDT Pulse 68 02/08/2024 12:25 PM CDT Temperature 36.5 ??C (97.7 ??F) 02/08/2024 9:52 AM CD T Respiratory Rate 17 02/08/2024 9:52 AM CDT Oxygen Saturation 98% 02/08/2024 12:25 PM CDT Inhaled Oxygen Concentration - - Weight 66 kg (145 lb 8 oz) 02/08/2024 9:52 AM CD T Height 160 cm (5' 3 ) 02/08/2024 9:52 AM CDT Body Mass Index 25.77 02/08/2024 9:52 AM CDT Plan of Treatment Health Maintenance Due Date Last Done Comments Colon Cancer Screening-Colonoscopy 1950 Hepatitis C Screening 1950 Osteoporosis Screening-Bone Density Scan 1950 DTaP/Tdap/Td Vaccine (1 - Tdap) 07/22/1959 Hepatitis B Screening 1966 Zoster Vaccine (1 of 2) 1998 Well Visit 65+ 2013 Depression Screening 10/17/2018 10/17/2017 Covid-19 Vaccine (5 - 2023-2 5 season) 2023 09/15/2021, 01/22/2021, 07/22/2020, Additional history exists Influenza Vaccine (#1) 2023 , 02/07/2019, 02/01/2018, Additional history exists Fall Risk Assessment 02/07/2025 02/08/2024, 01/02/20 Pneumococcal vaccine 65+ Completed 02/07/2019, 07/2017 Goals Goal Patient Goal Type Associated Problems Recent Progress Patient-Stated? Author Increase physical activity Exercise Lyudmila Shah, LOGAN Note: She is doing arm and leg exercises from Pt. She was in rehab after neck surgery for 2 weeks in March 2017 Medical Devices Implanted Type Area Training Lead Device Identifier Shelf Expiration Date Model / Serial / Lot Cage Cage Back Other Kit Stimulator Octrode L60 Cm Trial Lead Neurostimulator - [id number] Implanted:Qty: 1 on 05/03/2017 by Brice Eisenberg MD at [facility] [address] [employer] 3086 / / Kit Stimulator Octrode L60 Cm Trial Lead Neurostimulator - [id number] Implanted:Qty: 1 on 05/03/2017 by Brice Eisenberg MD at [facility] [employer] 3086 / / Kit Neurostimulator Octrode L60 Cm Percutaneous 8 Electrode Lead - [id number] - [id number] Implanted:Qty: 1 on 06/22/2017 by Brice Eisenberg MD at [facility] N/A: Back [employer] 05/24/2019 [id number] / [id number] / Kit Neurostimulator Octrode L60 Cm Percutaneous 8 Electrode Lead - [id number] - [id number] Implanted:Qty: 1 on 06/22/2017 by Brice Eisenberg MD at [facility] N/A: Back [employer] 05/24/2019 [id number] / [id number] / [place] Lead Eduardo-Lock - [id number] Implanted:Qty: 2 on 06/22/2017 by Brice Eisenberg MD at [facility] N/A: Back [employer] 05/18/2019 [id number] / / [id number] Generator Neurostimulator Proclaim Elite Thk13.4 Mm 5 In W49.5 Mm X H55.5 Mm Spinal Cord Implantable Pulse - [id number] - [id number] Implanted:Qty: 1 on 06/22/2017 by Brice Eisenberg MD at [facility] N/A: Back [employer] 05/02/2019 [id number] / [id number] / [employer] Closure Repair Femoral Artery Suture Mediated Perclose Prostyle 94408-06 - [id number] Implanted:Qty: 1 on 11/16/2023 by Emilio Leggett MD at [facility] [employer] 07/29/2025 1 2773- / [id number] [employer] Closure Repair Femoral Artery Suture Mediated Perclose Prostyle 97502-20 - [id number] Implanted:Qty: 1 on 11/16/2023 by Emilio Leggett MD at [facility] [employer] 07/29/2025 1 2773- / [id number] [employer] System Closure Repair Femoral Artery Suture Mediated Perclose Prostyle 95125-10 - [id number] Implanted:Qty: 1 on 11/16/2023 by Emilio Leggett MD at [facility] 07/29/2025 1 2773- / [id number] [employer] Percutaneous Transcatheter Amplatzer Amulet 22mm [id number] - [id number] Implanted:Qty: 1 on 11/16/2023 by Emilio Leggett MD at [facility] 11/29/2027 9 [id number] / / [id number] Procedures Procedure Name Priority Date/Time Associated Diagnosis Comments DEVICE CHECK - REMOTE Routine 03/05/2024 11:24 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 Dx; Syncope, Afib. DOI 08/08/2022-[place]. [facility] remote monitoring. 04/14/23-WAD note: Anticoagulation contraindication d/t frequent falls and h/o head injury. ILR interrogations for more definitive documentation of Afib [place] and justification for LAAO device implant. Routine ILR remote. Normal device function. Battery function-Good. Presenting rhythm: VS, regular 60 bpm. Medications: ??ASA 81 mg, Toprol-XL, Lipitor. Counters since last scheduled transmission on 01/22/2024. --15 Tachy episodes noted, egm's suggestive of Afib with RVR, longest episode 4 minutes. Ventricular rates 176-207 bpm. --0 Darren --0 Pause --0 Symptom --6 AF episodes noted, egm's suggestive of Afib, longest episode 5 1/2 hours in duration. Time in AFib 1.5 %. See scanned report. [facility] remote f/u 04/15/2024. Annie Lew RN us Emilio Leggett MD CV CARDIAC SERVICES PROCEDURES F inal Result * TRANSESOPHAGEAL ECHO (HUMBERTO) W DOPPLER/CF WO CONTRAST (02/08/2024 11:52 AM CDT) BSA 1.71 m2 CONS SCIMAGE Anatomical Region Laterality Modality Ultrasound Narrative 02/08/2024 12:21 PM CDT TRANSESOPHAGEAL ECHOCARDIOGRAM DATE OF PROCEDURE: 02/08/24 INDICATION FOR PROCEDURE: ??Assessment of left atrial appendage closure device BRIEF CLINICAL HISTORY: ??Kaitlin Bond is a 73 y.o. female with paroxysmal atrial fibrillation s/p left atrial appendage closure using 22 Amplatzer Amulet closure device on ??11/16/2023, hypertension, hypothyroidism on thyroxine replacement, history of frequent falls, history of CA colon status post surgery. ?? Patient has PAF, and has had numerous falls due to gait instability from neuropathy. ??She was previously not on anticoagulation due to frequent falls. ??She is now status post Successful implantation of 22 Amplatzer Amulet left atrial appendage closure device on ??11/16/2023. ??Patient was brought to the hospital today for transesophageal echocardiogram to check for any device related thrombosis or any significant mateo device leak Benefits, risks and alternatives to the procedure were discussed with the patient in depth. ??Risks of the procedure include but are not limited to injury to the oropharyngeal mucosa, teeth; tear of esophagus which may require emergency surgery; bleeding, complications related to sedation including cardiac arrhythmias, respiratory failure. ??After discussing all the benefits of the procedure and potential complications, patient was willing to proceed with the procedure. ??Informed consent was taken prior to the procedure. PROCEDURES PERFORMED: 1. Multiplanar transesophageal echocardiography with and without color flow and Doppler assessment. 2. Moderate sedation-start time ?1120 stop time ?? 1132, total time ?? 12 minutes (CPT 01312) ANESTHESIA: ??Versed. ??2 mg, ??Fentanyl ??50 mcg, Benzocaine [place], Viscous lidocaine. ??Dee Costa RN was trained observer for moderate sedation. PROCEDURE: ??After informed consent was obtained, topical anesthesia was applied to the posterior pharynx with benzocaine spray and viscous lidocaine. IV sedation was given. ??The multiplane HUMBERTO probe was inserted into the patients mouth and passed into the esophagus with some difficulty. ??Multiplanar transesophageal echocardiography was performed with and without color flow and Doppler assessment. ??Patient's vitals were monitored throughout the procedure. ??The patient tolerated procedure well without any immediate procedure related complications. COMPLICATIONS: ??There were no immediate complications. FINDINGS: ?? LEFT VENTRICLE: ??Normal LV size, mild LVH, normal LV systolic function, ejection fraction about 60-65% RIGHT VENTRICLE: ??Normal RV size and systolic function LEFT ATRIUM: ??Moderate left atrial enlargement with spontaneous echo contrast. ??Amplatzer amulet left atrial appendage closure device is noted. No device related thrombus or any significant mateo device leak. INTERATRIAL SEPTUM: ??Small residual interatrial shunt from recent transseptal puncture RIGHT ATRIUM: ??Normal size MITRAL VALVE: ??Normal structure, mild mitral regurgitation AORTIC VALVE: ??Normal structure, trileaflet, no significant stenosis TRICUSPID VALVE: ??Normal structure, unable to assess RVSP due to inadequate TR jet PULMONIC VALVE: ??Not well visualized AORTA: ??Normal caliber PERICARDIUM: ??Normal, no significant pericardial effusion. CONCLUSIONS: Normal LV size, mild LVH, normal LV systolic function, ejection fraction 60-65% Moderate left atrial enlargement with spontaneous echo contrast. ?? Amplatzer amulet left atrial appendage closure device is noted, no device related thrombosis or any significant mateo device leak. Normal mitral valve structure, mild MR. Trileaflet aortic valve, no significant stenosis Unable to assess RVSP due to inadequate TR jet No pericardial effusion PLAN/RECOMMENDATIONS: Dual antiplatelet therapy with aspirin and clopidogrel till 05/18/2024; then single antiplatelet treatment with low-dose aspirin. ??Outpatient Cardiology follow-up. Voice recognition software was used to complete this document, therefore, groundsman variances may occur. Emilio Leggett MD, [facility] 02/08/24 Emilio Leggett MD CV ECHO PROCEDURES Final Result * DEVICE CHECK - REMOTE (01/22/2024 1:27 PM CDT) Anatomical Region Laterality Modality Other Narrative 01/23/2024 2:25 PM CDT Faraday LNQ22 Loop Recorder. Dx; Syncope, Afib. DOI 08/08/2022-Chris. [facility] remote monitoring. Amulet placed 11/16/23 Routine ILR remote. Normal device function. Battery function-Good Presenting rhythm: ??NSR Medications: ??ASA 81 mg, Toprol-XL 125 mg Counters since last scheduled transmission on 12/04/2023. --23 Tachy EGMs demonstrate AFib with RVR, the longest episode was 3 hours and 53 minutes in duration. ??Episode with highest median V rate was 207 beats per minute --0 Darren --0 Pause --0 Symptom --16 AF EGMs demonstrate AFib. ??AFib burden 1.3% See scanned report. [facility] remote f/u 03/04/2024. Adria Camarena, RN Emilio Leggett MD CV CARDIAC SERVICES PROCEDURES F inal Result from Last 3 Months Insurance MEDICARE SOLUTIONS [place] [id number] MEDICARE SOLUTIONS MEDICARE SOLUTIONS Care Teams Test Conductor Relationship Specialty Start Date End Date Gadiel Zavala MD [address] [address] PCP - General 06/13/16 Lyudmila Knox, RN Registered Nurse 04/14/17 Jnenifer Escalona, RN Registered Nurse 05/10/17
--- OUTSIDE RECORDS SUMMARY | 2024-04-17 11:47 | XMS_ITS ---
Author Organization [facility] Address [address] [place] [address] Care Team Providers Care Disability Attorney Name Role Phone Gadiel Zavala MD Primary Care Provider [phone] Lyudmila Knox RN Unavailable Unavailable Jennifer Escalona RN Unavailable Agustina vailable Active Problems Problem Noted Date Diagnosed Date Presence of Amulet left atrial appendage closure device 11/16/2023 Surgical complication involv ing both eyes, unspecified complication 10/24/2023 Visit for wound check 08/15/2022 Status post placement of implantable loop record er 08/09/2022 Overview (11/24/2023): Medtronic LNQ22 Loop Recorder. Dx; Syncope, Afib. DOI 08/08/2022-Chris. [facility] remote monitoring. Amulet placed 11/16/23 Falls frequently [...] 07/07/2016 Pain of hand 07/07/2016 Notalgia 07/07/2016 Current Oncology Plans No current plan information found. Past Plans No past plan information found. Radiation Treatments * No radiation treatments are documented for this patient in [facility]. Treatments may have been administered in another system. Lifetime Dose Tracking * Chemical Lifetime Dose Automatic Entry Manual Entr y Fluoro Time 2.32 minutes 2.32 minutes 0 minutes Air kerma at the reference point (Ka,r) 370 mGy 0 mGy 370 mGy
--- OUTSIDE RECORDS SUMMARY | 2024-04-17 11:47 | XMS_ITS | Continuity of Care Document ---
Author Organization [facility] Address [address] [address] [place] [address] Phone Care Team Providers Care Gizzard Skin Remover Name Role Phone Jorge Cevallos Unavailable Unavailable Procedures Procedure Date No Charge Glasses Check Office/outpatient Visit, Est Refraction Eye Exam & Treatment Refraction Advance Directives Directive Yes / No Effective Date File Name No Information Encounters Encounter Description Practice Location Reason(s) For Visit Diagnoses Date Provider Providers Copied on Encounter [facility], [address] [place] [address] [address], [place], [place], [id number], tel:[phone] [facility] No Information 0 Ban Patel. [address] [facility] , [address], [place], [place], [facility], [place]. tel:[phone] Office/outpat ient Visit, Est [facility], [address] [place] [address] [address], [place], [place], [id number], [place] tel:[phone] [facility] No Information [address] Ban Patel. [address] [facility] , [address], [place], [address], [place]. tel:[phone] [facility], [address] [place] [address] [address], [place], [place], [id number], tel:[phone] [facility] No Information [address] Ban Patel. [address] [facility] , [address], [place], [address], [place]. tel:[phone] Family History Family Member Type Diagnosis Age At Onset No Information Payers Payer name Insurance type Covered constitution party ID Authoriza tion(s) No Information Social [...]
--- OUTSIDE RECORDS SUMMARY | 2024-04-17 11:47 | XMS_ITS | Referral Summary ---
Author Organization [facility] Address [address] [place] [id number] Care Team Providers Care [place] Attendant Name Role Phone Gadiel Zavala MD Primary Care Provider [phone] Lyudmila Knox RN Unavailable Unavailable Jennifer Escalona RN Unavailable Agustina vailable Encounters Date Type Department Care Team Description 03/04/2024 9:00 AM MANAGER HOUSE Ancillary Procedure [facility] Cardiology [address] [place] [phone] Status post placement of implantable loop recorder (Primary Dx); PAF (paroxysmal atrial fibrillation) (CMS/HCC) (HCC); Syncope and collapse 02/08/2024 9:33 AM CDT - 02/08/2024 11:59 PM CDT Hospital Encounter [facility] Cardiac Catheterization Lab [address] [place] [id number] Emilio Leggett MD Presence of Amulet left atrial appendage closure device Discharge Disposition: Discharge to home or self care 01/30/2024 Telephone [facility] Pre Anesthesia Testing [address] [place] [phone] Melly Vazquez RN 01/22/2024 9:15 AM CDT Ancillary Procedure [facility] Cardiology [address] [place] [phone] Status post placement of implantable loop recorder (Primary Dx); PAF (paroxysmal atrial fibrillation) (CMS/HCC) (HCC); Syncope, unspecified syncope type from Last 3 Months Allergies Active Allergy [...] by mouth once daily 90 tablet 04/02/20 Active losartan (COZAAR) 25 mg tabletIndicatio ns:Essential [...] 07/07/2016 Pain of hand 07/07/2016 Notalgia 07/07/2016 Social History Tobacco Use Types Packs/Day Years Used Date Smoking Tobacco: Former Cigarettes Q uit: 04/14/1987 Smokeless Tobacco: Never Tobacco Cessation:Counseling Given: Not Answered Alcohol Use Standard Drinks/Week Comments Yes 0 (1 standard drink = 0.6 oz pur e alcohol) social inmobly Utilities Answer Date Recorded In the past 12 months has [employer], gas, oil, or water [employer] threatened to shut off services in your [...] week 11/17/2023 How often do you attend [facility] or sabianism services? Never 11/17/2023 Do you belong to any clubs o r organizations such as mu-ism groups, unions, fraternal or athletic groups, or [...] any time in the past 12 m [facility], were you homeless or living in a usp (including now)? No 11/17/2023 Personal Safety Answer Date Recorded Have you ever been in or are you currently in a harmful physical or emotional relationship or is someone making you feel afraid or unsafe? Denies 02/08/2024 Comments No Sex and Gender Information Value Date Recorded Sex Assigned at Not on file Legal Sex Female 3:22 AM MANAGER HOUSE Gender Identity Not on file Sexual Orientation [...] 02/08/2024 9:52 AM CDT Plan of Treatment Not on file Goals Goal Patient Goal Type Associated Problems Recent Progress Patient-Stated? Author Increase physical activity Exercise Lyudmila Shah RN Note: She is doing arm and leg exercises from Pt. She was in rehab after neck surgery for 2 weeks in March 2017 Medical Devices Implanted Type Area Sap Basis Consultant Device Identifier Shelf Expiration Date Model / Serial / Lot Cage Cage Back Other Kit Stimulator Octrode L60 Cm Trial Lead Neurostimulator - [id number] Implanted:Qty: 1 on 05/03/2017 by Brice Eisenberg MD at [facility] Phys[facility] Building [address] [employer] 3086 / / Kit Stimulator Octrode L60 Cm Trial Lead Neurostimulator - [id number] Implanted:Qty: 1 on 05/03/2017 by Brice Eisenberg MD at [facility] Building [address] [employer] 3086 / / Kit Neurostimulator Octrode L60 Cm Percutaneous 8 Electrode Lead - [id number] - [id number] Implanted:Qty: 1 on 06/22/2017 by Brice Eisenberg MD at [facility] N/A: Back [employer] 05/24/2019 [id number] / [id number] / Kit Neurostimulator Octrode L60 Cm Percutaneous 8 Electrode Lead - [id number] - [id number] Implanted:Qty: 1 on 06/22/2017 by Brice Eisenberg MD at [facility] N/A: Back [employer] 05/24/2019 [id number] / [id number] / Gracey Lead Eduardo-Lock - [id number] Implanted:Qty: 2 on 06/22/2017 by Brice Eisenberg MD at [facility] N/A: Back [employer] 05/18/2019 1192 / / [id number] Generator Neurostimulator Pro[employer] Elite Thk13.4 Mm 5 In W49.5 Mm X H55.5 Mm Spinal Cord Implantable Pulse - Buwg121.1 - [id number] Implanted:Qty: 1 on 06/22/2017 by Brice Eisenberg MD at [facility] N/A: Back [employer] 05/02/2019 [id number] / [id number] / [employer] Closure Repair Femoral Artery Suture Mediated Perclose Prostyle 31012-08 - [id number] Implanted:Qty: 1 on 11/16/2023 by Emilio Leggett MD at [facility] [employer] 07/29/2025 1 2773-03 / / [id number] [employer] Closure Repair Femoral Artery Suture Mediated Perclose Prostyle 73835-75 - [id number] Implanted:Qty: 1 on 11/16/2023 by Emilio Leggett MD at [facility] [employer] 07/29/2025 1 2773- / / [id number] [employer] System Closure Repair Femoral Artery Suture Mediated Perclose Prostyle 96000-02 - [id number] Implanted:Qty: 1 on 11/16/2023 by Emilio Leggett MD at [facility] [employer] 07/29/2025 1 2773-03 / / [id number] [employer] Percutaneous Transcatheter Amplatzer Amulet 22mm 8-[id number] - [id number] Implanted:Qty: 1 on 11/16/2023 by Emilio Leggett MD at [facility] 11/29/2027 9 -ACP2-00 7-022 / / [id number] Procedures Procedure Name Priority Date/Time Associated Diagnosis Comments DEVICE CHECK - REMOTE Routine 03/05/2024 11:24 AM MANAGER HOUSE PAF (paroxysmal atrial fibrillation) (CMS/HCC) (HCC) TRANSESOPHAGEAL ECHO (HUMBERTO) W DOPPLER/CF WO CONTRAST Routine 02/08/2024 11:52 AM CDT Presence of Amulet left atrial appendage closure device DEVICE CHECK - REMOTE Routine 01/22/2024 1:27 PM CDT PAF (paroxysmal atrial fibrillation) (CMS/HCC) (HCC) from Last 3 Months Results * DEVICE CHECK - REMOTE (03/05/2024 11:24 AM MANAGER HOUSE) Anatomical Region Laterality Modality Other Narrative 03/13/2024 8:08 AM MANAGER HOUSE [employer] LNQ22 Loop Recorder. Dx; Syncope, Afib. DOI 08/08/2022-[place]. [facility] remote monitoring. 04/14/23-WAD note: Anticoagulation contraindication d/t frequent falls and h/o head injury. ILR interrogations for more definitive documentation of Afib [place] and justification for LAAO device implant. Routine [...] scanned report. [facility] remote f/u 04/15/2024. Annie Lew, RN us Emilio Leggett MD CV CARDIAC [...] 1132, total time ?? 12 minutes (CPT 87310) ANESTHESIA: ??Versed. ??2 mg, ??Fentanyl ??50 mcg, Benzocaine [place], Viscous lidocaine. ??Dee Costa RN was trained [...] was used to complete this document, therefore, cork tile floor layer variances may occur. Emilio Leggett MD, [facility] 02/08/24 us Emilio Leggett MD CV ECHO PROCEDURES Final Result * DEVICE CHECK - REMOTE (01/22/2024 1:27 PM CDT) Anatomical Region Laterality Modality Other Narrative 01/23/2024 2:25 PM CDT [place] [employer] LNQ22 Loop Recorder. Dx; Syncope, Afib. DOI [...] report. [facility] remote f/u 03/04/2024. Adria Camarena, LOGAN Emilio Leggett MD [facility] CARDIAC SERVICES PROCEDURES F inal Result from Last 3 Months Insurance MEDICARE SOLUTIONS MEDICARE SOLUTIONS MEDICARE SOLUTIONS Care Teams [place] Attendant Relationship Specialty Start Date End Date Gadiel Zavala MD [address] [id number] PCP - General 06/13/16 Lyudmila Knox, RN Registered Nurse 04/14/17 Jennifer Escalona, LOGAN Registered Nurse 05/10/17
--- OUTSIDE RECORDS SUMMARY | 2024-04-17 11:48 | XMS_ITS | Encounter Summary ---
Author Organization [facility] Healthcare Address [address] [place] [address] Care Team Providers Care Team Physician Name Role Phone Gadiel Zavala MD Primary Care Provider [phone] Lyudmila Knox RN Unavailable Unavailable Jennifer Escalona RN Unavailable Agustina vailable Reason for Visit * Auth/Cert Specialty Diagnoses / Procedures Referred By Delores t Referred To Contact Diagnoses Paroxysmal atrial fibrillation (CMS/HCC) (HCC) Paroxysmal atrial fibrillation (CMS/HCC) (HCC) [I48.0] Procedures PERC MAURA CLOSE W/IMPLANT [id number] Referral ID Status Reason Start Date Expiration Date Visits Re quested Visits Authorized [id number] 1 1 Encounter Details Date Type Department Care Team (Late st Contact Info) Description 11/16/2023 10:00 AM CDT - 11/16/2023 12:30 PM CDT Surgery [facility] Cardiac Catheterization Lab [address] [place] [address] Emilio Wahl MD [address] [place] [id number] PERC MAURA CLOSE W/IMPLANT [id number] Surgery Details Date/Time Status Location OR Service Patient Class Case Class Case Type Trauma Case? 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 Cardiovascular Surgery Admit Elective Panel 1 Procedure LRB Anes Op Region Wound Class Comments PERC MAURA CLOSE W/IMPLANT 98436 N/A General INTRACARDIAC ECHOCARDIOGRAM (+) 71079 N/A Surgeon Surgeon Role Service Panel Emilio Wahl MD Primary Cardiovascular 1 documented in this encounter Social History Tobacco Use Types Packs/Day Years Used Date Smoking Tobacco: Former Cigarettes Q uit: 04/14/1987 Smokeless Tobacco: Never Alcohol Use Standard Drinks/Week Comments Yes 0 (1 standard drink = 0.6 oz pur e alcohol) social [facility] Utilities Answer Date Recorded In the past 12 months has th e electric, gas, oil, or water company threatened to shut off services in your [...] week 11/17/2023 How often do you attend chur ch or congregation services? Never 11/17/2023 Do you belong to any clubs o r organizations such as bahai groups, unions, fraternal or athletic groups, or [...] any time in the past 12 m [facility], were you homeless or living in a chcf (including now)? No 11/17/2023 Personal Safety Answer Date Recorded Have you ever been in or are you currently in a harmful physical or emotional relationship or is someone making you feel afraid or unsafe? 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 Gender Identity Not on file Sexual Orientation Not on file documented as of this encounter Last Filed Vital Signs Vital Sign Reading Time Taken Comments Blood Pressure 160/96 11/16/2023 8:13 AM CDT Pulse 70 11/16/2023 8:13 AM CDT Temperature 36.5 ??C (97.7 ??F) 11/16/2023 8:13 AM CD T Respiratory Rate 18 11/16/2023 8:13 AM CDT Oxygen Saturation 97% 11/16/2023 8:13 AM CDT Inhaled Oxygen Concentration - - Weight 64.4 kg (142 lb) 11/16/2023 8:13 AM CDT Height 160 cm (5' 3 ) 11/16/2023 8:13 AM CDT Body Mass Index 25.16 11/17/2023 7:36 AM CDT documented in this encounter Discharge Summaries * Emilio Wahl MD - 11/17/2023 10:10 AM CDT Inpatient Discharge Summary BRIEF OVERVIEW Admitting Provider: Emilio Wahl MD Discharge Provider: Emilio Wahl MD Primary Care Physician at Discharge: Gadiel Zavala MD [phone] Admission Date: 11/16/2023 Discharge Date: 11/17/2023 Admission Location: [facility] DETAILS OF HOSPITAL STAY Hospital Course: 73 y.o. female with paroxysmal atrial fibrillation, hypertension, hypothyroidism on thyroxine replacement, history of frequent falls, history of CA colon status post surgery. Patient has PAF, and has had numerous falls due to gait instability from neuropathy. She has not been on anticoagulation due to frequent falls. Her current CHADSVASc score is 4 putting her at higher risk for stroke in the absence of chronic anticoagulation. After discussing benefits, risks and alter natives, patient and her were eager to proceed with left atrial appendage closure for CVA prophylaxis. Preprocedure CTA heart was performed for left atrial appendage dimensions. No left atrial appendage thrombus was noted. On 11/16/2023, patient underwent Successful implantation of 22 Amplatzer Amulet left atrial appendage closure device. She was admitted overnight for observation. Patient reported mild discomfort in the right groin area which has improved now. She reported palpitations, and telemetry showed sinus tachycardia. Patient was resumed on metoprolol. CBC showed hemoglobin within normal limits and essentially unchanged from previous labs. Echocardiogram performed bedside which I personally interpreted did not show any significant pericardial effusion. Patient anticipated to be discharged home later today once heart rate improves. Operative Procedures Performed: Procedure(s): PERC MAURA CLOSE W/IMPLANT [id number] INTRACARDIAC ECHOCARDIOGRAM (+) [id number] Discharge Details Physical Exam at Discharge: Discharge Condition: fair Pulse: (!) 135 Resp: 19 BP: (!) 172/93 Temp: 36.4 ??C (97.5 ??F) Weight: 64.4 kg (142 lb) Pertinent Exam Findings at Discharge: Physical Exam Constitutional: Appearance: Normal appearance. HENT: Head: Normocephalic and atraumatic. Eyes: Extraocular Movements: Extraocular movements intact. Cardiovascular: Rate and Rhythm: Regular rhythm. Tachycardia present. Pulmonary: Breath sounds: Normal breath sounds. Abdominal: Palpations: Abdomen is soft. Musculoskeletal: Comments: Right groin access site did not show any significant hematoma. No bruit. Skin: General: Skin is warm and dry. Neurological: General: No focal deficit present. Mental Status: She is alert. Psychiatric: Mood and Affect: Mood normal. Discharge Disposition: Discharge to home or self care Code Status at Discharge: Full Discharge Instructions: Activity: - No heavy lifting (over 5 pounds) for 1 week or as directed by your dental patient coordinator. - No driving for 2 days after sheath removal. - No strenuous activity with affected leg for one week (i.e. Jogging, swimming, running, raking, shoveling snow or mowing lawn). - No exercising or excessive use of stairs for 1 week. Puncture Site: - Remove dressing next day. - Wash with soap and water daily in shower (to prevent infection, a shower is preferred to a tub bath for at least a week). - Do not apply any creams or lotions to puncture site. What to watch for: - Increased bruising - Swelling - Temperature greater than 100 degrees - Redness, drainage, or foul odor at puncture site - Pain that will not go away You may develop scar tissue at the puncture site. This is normal and will feel like a small lump under the skin. You may feel this bump for several days. If any of the above occur or you have any questions, please contact your Physician. Discharge Medications: Current Medications TAKE these medications acetaminophen 325 mg tablet Take 2 tablets (650 mg total) by mouth every 4 (four) hours as needed Commonly known as: TYLENOL aspirin 81 mg enteric coated tablet Take 1 tablet (81 mg total) by mouth daily Commonly known as: Adult Low Dose Aspirin atorvastatin 20 mg tablet Take 1 tablet (20 mg total) by mouth daily Commonly known as: LIPITOR clopidogreL 75 mg tablet Take 1 tablet (75 mg total) by mouth daily For: coronary artery disease Commonly known as: PLAVIX Start taking on: November 18, [address] 60 mg capsule Take 1 capsule (60 mg total) by mouth 2 (two) times a day Commonly known as: CYMBALTA eszopiclone 3 mg tablet Take 1 tablet (3 mg total) by mouth nightly For: difficulty sleeping Commonly known as: LUNESTA ferrous sulfate 325 mg (65 mg of elemental iron) tablet Take 1 tablet (65 mg of elemental iron total) by mouth daily with breakfast For: anemia from inadequate iron levothyroxine 50 mcg tablet Take 1 tablet (50 mcg total) by mouth daily Commonly known as: SYNTHROID losartan 25 mg tablet Take 1 tablet by mouth once daily Commonly known as: COZAAR * metoprolol XL 100 mg 24 hr tablet Take 1 tablet (100 mg total) by mouth daily TAKE IN COMBINATION WITH 25 MG TABLET Commonly known as: TOPROL-XL * metoprolol XL 25 mg extended release tablet Commonly known as: TOPROL-XL NEURIVA ORIGINAL ORAL Take 1 capsule by mouth daily omeprazole 40 mg capsule Take 1 capsule (40 mg total) by mouth daily Two tablets daily Commonly known as: PriLOSEC vitamin E 400 unit capsule Take 1 capsule (400 Units total) by mouth Commonly known as: AQUASOL E * This list has 2 medication(s) that are the same as other medications prescribed for you. Read the directions carefully, and ask your doctor or other care provider to review them with you. Outpatient Follow-Up: Future Appointments Date Time Provider Department Center 01/02/2024 10:15 AM Emilio Wahl MD [facility] [place] [facility] Special[place] Total time for discharge planning including documentation: 33 minutes documented in this encounter Discharge Instructions * Discharge Instructions* Hamida Zimmerman RN - 11/17/2023 1:51 PM CDT Images from the original note were not included. Discharge patient Once (Routine) Comments: Activity: - No heavy lifting (over 5 pounds) for 1 week or as directed by your dental patient coordinator. - No driving for 2 days after sheath removal. - No strenuous activity with affected leg for one week (i.e. Jogging, swimming, running, raking, shoveling snow or mowing lawn). - No exercising or excessive use of stairs for 1 week. Puncture Site: - Remove dressing next day. - Wash with soap and water daily in shower (to prevent infection, a shower is preferred to a tub bath for at least a week). - Do not apply any creams or lotions to puncture site. What to watch for: - Increased bruising - Swelling - Temperature greater than 100 degrees - Redness, drainage, or foul odor at puncture site - Pain that will not go away You may develop scar tissue at the puncture site. This is normal and will feel like a small lump under the skin. You may feel this bump for several days. If any of the above occur or you have any questions, please contact your Physician. Expected Discharge Date: 11/17/23 Expected Discharge Time: Afternoon Discharge Disposition: Discharge to home or self care documented in this encounter Medications at Time of Discharge acetaminophen (TYLENOL) 325 mg tablet Take 2 tablets (650 mg total) by mouth every 4 (four) hours as needed 03/01/2017 aspirin (Adult Low Dose Aspirin) 81 mg enteric coated tablet Take 1 tablet (81 mg total) by mouth daily 03/29/2022 atorvastatin (LIPITOR) 20 mg tablet Take 1 tablet (20 mg total) by mouth daily 03/31/2017 coffee xt/phosphatidyl serine (NEURIVA ORIGINAL ORAL) Take 1 capsule by mouth daily DULoxetine DR (CYMBALTA) 60 mg capsule Take 1 capsule (60 mg total) by mouth 2 (two) times a day eszopiclone (LUNESTA) tabletIndications: Insomnia Take 1 tablet (3 mg total) by mouth nightly 1 04/25/2017 ferrous sulfate 325 mg (65 mg of elemental iron) tabletIndications: Iron Deficiency Anemia Take 1 tablet (65 mg of elemental iron total) by mouth daily with breakfast levothyroxine (SYNTHROID, LEVOTHROID) 50 mcg tablet Take 1 tablet (50 mcg total) by mouth daily 03/31/2017 metoprolol XL (TOPROL-XL) 100 mg 24 hr tablet Take 1 tablet (100 mg total) by mouth daily TAKE IN COMBINATION WITH 25 MG TABLET metoprolol XL (TOPROL-XL) 25 mg extended release tablet 07/26/2017 omeprazole (PriLOSEC) 40 mg capsule Take 1 capsule (40 mg total) by mouth daily Two tablets daily vitamin E 400 unit capsule Take 1 capsule (400 Units total) by mouth clopidogreL (PLAVIX) 75 mg tabletIndications: coronary artery disease Take 1 tablet (75 mg total) by mouth daily 30 tablet 11 11/18/2023 4 losartan (COZAAR) 25 mg tabletIndications: Essential hypertension Take 1 tablet by mouth once daily 90 tablet 10/09/2023 4 documented as of this encounter Ordered Prescriptions Prescription Sig Dispense Quantity Refills Last Filled Start Date End Date clopidogreL (PLAVIX) 75 mg tabletIndications: coronary artery disease Take 1 tablet (75 mg total) by mouth daily 30 tablet 11 11/18/2023 02/08/2024 documented in this encounter Discharge Disposition Disposition Code Departure Means Destination Comment s Discharge to home or self care documented in this encounter H&P Notes * Emilio Wahl MD - 11/16/2023 11:36 AM CDT General H&P HPI: 73 y.o. female with paroxysmal atrial fibrillation, hypertension, hypothyroidism on thyroxine replacement, history of frequent falls, history of CA colon status post surgery. Patient has PAF, and has had numerous falls due to gait instability from neuropathy. She has not been on anticoagulation due to frequent falls. Her current CHADSVASc score is 4 putting her at higher risk for stroke in the absence of chronic anticoagulation. After discussing benefits, risks and alter natives, patient and her were eager to proceed with left atrial appendage closure for CVA prophylaxis. Preprocedure CTA heart was performed for left atrial appendage dimensions. No left atrial appendagethrombus was noted. Past Medical History: Diagnosis Date Anemia Arthritis Atrial fibrillation (CMS/HCC) (HCC) Awareness under anesthesia Cancer (CMS/HCC) (HCC) colon Cataract Chronic back pain Depression GERD (gastroesophageal reflux disease) Hx of migraines Hyperlipidemia Hypertension Hypothyroidism Neuropathy (CMS/HCC) Peptic ulceration PONV (postoperative nausea and vomiting) Vision blurred Past Surgical History: Procedure Laterality Date ANTERIOR FUSION CERVICAL SPINE x2 CATARACT EXTRACTION, BILATERAL COLON SURGERY 07/2021 BIMEDIAL RECTUS RECESSION WITH DOWNWARD TRANSPOSITION COLONOSCOPY EYE SURGERY Bilateral x4, attempted to fix double vision (unsuccessful) HYSTERECTOMY SPINE SURGERY lumbar Medications Prior to Admission Medication Sig Dispense Refill Last Dose acetaminophen (TYLENOL) 325 mg tablet Take 2 tablets (650 mg total) by mouth every 4 (four) hours as needed 11/15/2023 atorvastatin (LIPITOR) 20 mg tablet Take 1 tablet (20 mg total) by mouth daily 11/16/2023 at 0730 coffee xt/phosphatidyl serine (NEURIVA ORIGINAL ORAL) Take 1 capsule by mouth daily Past Week DULoxetine DR (CYMBALTA) 60 mg capsule Take 1 capsule (60 mg total) by mouth 2 (two) times a day 11/15/2023 eszopiclone (LUNESTA) tablet Take 1 tablet (3 mg total) by mouth nightly 1 11/15/2023 ferrous sulfate 325 mg (65 mg of elemental iron) tablet Take 1 tablet (65 mg of elemental iron total) by mouth daily with breakfast Past Week levothyroxine (SYNTHROID, LEVOTHROID) 50 mcg tablet Take 1 tablet (50 mcg total) by mouth daily 11/16/2023 at 0730 losartan (COZAAR) 25 mg tablet Take 1 tablet by mouth once daily 90 tablet 0 11/15/2023 metoprolol XL (TOPROL-XL) 100 mg 24 hr tablet Take 1 tablet (100 mg total) by mouth daily TAKE IN COMBINATION WITH 25 MG TABLET 11/16/2023 at 0730 metoprolol XL (TOPROL-XL) 25 mg extended release tablet 11/16/2023 at 0730 vitamin E 400 unit capsule Take 1 capsule (400 Units total) by mouth Past Week aspirin (Adult Low Dose Aspirin) 81 mg enteric coated tablet Take 1 tablet (81 mg total) by mouth daily 11/09/2023 omeprazole (PriLOSEC) 40 mg capsule Take 1 capsule (40 mg total) by mouth daily Two tablets daily 11/13/2023 Allergies Allergen Reactions Gadolinium-Containing Contrast Media Hives and Urticaria Dye Hives Was getting MRI and developed hives while dye infusion. Gadopentetate Dimeglumine Hives Reaction: Hives, Green Dye Unknown Was getting MRI and developed hives while dye infusion. Adhesive Tape-Silicones Rash Reaction: RASH Aspirin Dizziness Dizziness/Light Headed Latex Other (See comments) Pt states no. Is fine with gloves. Only allergy is to adhesive. Social History Tobacco Use Smoking status: Former Current packs/day: 0.00 Types: Cigarettes Quit date: 04/14/1987 Years since quittin.6 Smokeless tobacco: Never Substance and Sexual Activity Drug use: No Sexual activity: Defer Alcohol Use: Not At Risk (11/16/2023) AUDIT-C Frequency of Alcohol Consumption: Monthly or less Average Number of Drinks: 1 or 2 Frequency of Binge Drinking: Never Family History Problem Relation Age of Onset Hypertension Mother Leukemia Father Review of Systems Objective Vitals: Arrival Vitals [11/16/23 0813] Temp 36.5 ??C (97.7 ??F) Pulse 70 Resp 18 BP 160/96 SpO2 97 % Temp src Oral Heart Rate Source Patient Position BP Location FiO2 (%) 24hr Min/Max: Temp Min: 36.5 ??C (97.7 ??F) Max: 36.5 ??C (97.7 ??F) Pulse Min: 70 Max: 70 BP Min: 160/96 Max: 160/96 Resp Min: 18 Max: 18 SpO2 Min: 97 % Max: 97 % Most Recent : Vitals: 11/16/23 0813 BP: 160/96 Pulse: 70 Resp: 18 Temp: 36.5 ??C (97.7 ??F) SpO2: 97% No intake/output data recorded. No intake/output data recorded. Physical Exam General appearance - alert, no distress, oriented to time, place, person Mental status - affect appropriate to mood Eyes - extraocular eye movements intact, no pallor Ears - external ears appear normal, hearing grossly normal Nose - normal and patent, no discharge Mouth - mucous membranes moist, tongue normal Neck - supple, no JVD Chest - clear to auscultation Heart - normal rate, regular rhythm, normal S1, S2, no audible murmurs Abdomen - soft, nontender Neurological - alert, oriented, normal speech, unstable gait Musculoskeletal - unstable gait, no amputations Extremities - no pedal edema, no clubbing or cyanosis Skin - no rashes (on the exposed areas), no cyanosis Lab/Radiology/Diagnostic Review: Assessment Principal Problem: Paroxysmal atrial fibrillation (CMS/HCC) (HCC) History of frequent falls Plan percutaneous left atrial appendage closure documented in this encounter Procedure Notes * Emilio Wahl MD - 11/16/2023 1:16 PM CDT Procedures INTRA CARDIAC ECHO INTRA-PROCEDURAL FOR LEFT ATRIAL APPENDAGE CLOSURE (CPT 75437) Name: Georgiana Bond AGE: 73 y.o. Date of Procedure: 11/16/2023 BIRTHDATE: 1950 DRAFTER DETAIL: Emilio aWhl MD REFERRING PHYSICIAN: Gadiel Zavala MD INDICATIONS: LAAO implant Amulet 22 mm size device PROCEDURE: After informed consent where risks of the procedure were discussed with the patient and family if any present at time of the procedure, risks including but not limited to vascular complications, cardiac arrhythmias, pericardial effusion or tamponade. ICE catheter was advanced after gaining access through the right femoral vein, and imaging modalities were used to assist with transseptal puncture and placement of the LAAO device. ANESTHESIA: MAC, see anesthesia record PROCEDURE TIME: see anesthesia record COMPLICATIONS: There were no immediate procedure related complications. Left Atrial Appendage: there is no evidence of left atrial appendage thrombus. Intra-atrial septum: intact , no evidence of a large shunt by color Doppler. MEASUREMENTS: The measurements for the MAURA on 3D ICE were as follows: MAURA orifice 23 mm; landing zone 15 mm 22 mm Amplatzer amulet left atrial appendage closure device was chosen based on intracardiac echo and CT heart measurements. The device was placed with the circumflex artery well visualized during procedure. TUG test was performed. CLOSE criteria met post implant. No significant mateo-device leak visualized on color Doppler. No pericardial effusion noted. Emilio Wahl MD 11/16/23 documented in this encounter Consult Notes * Hellen Love RN - 11/10/2023 10:19 AM CDT Images from the original note were not included. Structural Heart Auto Body Service Mechanic Consult for LAAO Patient Name:Georgiana Bond Age:73 y.o. :1950 Referring Physician: Dinh Perez MD / Emilio Wahl MD PCP:Gadiel Zavala MD CHIEF Chief Complaint Patient presents with history of PAF, previously on OAC with Xaretlto. She has been evaluated for LAAO with Amulet and deemed an appropriate candidate with her history of frequent falls and risk for bleeding from injury. Medications Allergies: Allergies Allergen Reactions ??? Gadolinium-Containing Contrast Media Hives and Urticaria ??? Dye Hives Was getting MRI and developed hives while dye infusion. ??? Gadopentetate Dimeglumine Hives Reaction: Hives, ??? Green Dye Unknown Was getting MRI and developed hives while dye infusion. ??? Adhesive Tape-Silicones Rash Reaction: RASH ??? Aspirin Dizziness Dizziness/Light Headed ??? Latex Other (See comments) Pt states no. Is fine with gloves. Only allergy is to adhesive. Scheduled Meds: No current facility-administered medications for this encounter. Current Outpatient Medications Medication ??? acetaminophen (TYLENOL) 325 mg tablet ??? aspirin (Adult Low Dose Aspirin) 81 mg enteric coated tablet ??? atorvastatin (LIPITOR) 20 mg tablet ??? coffee xt/phosphatidyl serine (NEURIVA ORIGINAL ORAL) ??? DULoxetine DR (CYMBALTA) 60 mg capsule ??? eszopiclone (LUNESTA) tablet ??? ferrous sulfate 325 mg (65 mg of elemental iron) tablet ??? levothyroxine (SYNTHROID, LEVOTHROID) 50 mcg tablet ??? losartan (COZAAR) 25 mg tablet ??? metoprolol XL (TOPROL-XL) 100 mg 24 hr tablet ??? metoprolol XL (TOPROL-XL) 25 mg extended release tablet ??? omeprazole (PriLOSEC) 40 mg capsule ??? vitamin E 400 unit capsule LABS AND OTHER DIAGNOSTIC TESTS Recent Labs Lab Results Component Value Units WBC 6.2 k/cumm HGB 12.8 g/dl HCT Plt 39.5 316 % k/mm3 CREATININE ALBUMIN GFR INR 0.64 4.5 >90 0.92 mg/dl g/dl ml/min/1.73m2 Inclusion Criteria Patient has non-valvular atrial fibrillation Patient has an increased risk for stroke and is recommended for oral anticoagulation (OAC) Patient is suitable for short-term oral anticoagulation therapy but deemed unable to take long-termOAC Patient has an appropriate rationale to seek a non-pharmacologic alternative to OACs Hx of bleeding or increased bleeding risk (HAS-BLED) Risk Tools CHADS-VASC Condition Points C Congestive Heart Failure 0 H Hypertension (SBP >160) 1 A Age > 75 2 D Diabetes Mellitus 0 S Prior stroke, TIA, thromboembolism 0 V Vascular disease (PAD, CA) 0 A Age 65-74 0 Sc Sex category (Female) 1 Total Points 4 4 points Stroke risk was 4.8% per year in >90,000 patients (the [place] Atrial Fibrillation Cohort Study)and 6.7% risk of stroke/TIA/systemic embolism. One recommendation suggests a 0 score for men or 1 score for women (no clinical risk factors) is ???low?? risk and may not require anticoagulation; a 1 score for men or 2 score for women is ???low-moderate? risk and should consider antiplatelet or anticoagulation; and a score >=2 for men or >=3 for women is ???moderate-high?? risk and should otherwise be an anticoagulation candidate. HAS-BLED Condition Points H Hypertension 1 A Abnormal renal or liver function (1 pt each) 0 S Stroke 0 B Bleeding history or disposition 1 L Labile INR 0 E Elderly (age > 65) 1 D Current drugs (medication) or alcohol use (1 pt each) 1 Total Points 4 4 points Risk was 8.9% in one validation study (Lip 2010) and 8.70 bleeds per 100 patient-years in another validation study (Pisters 2010). Alternatives to anticoagulation should be considered: Patient is at high risk for major bleeding. HEART VALVE COORDINATOR ASSESSMENT Age: 73 BMI: 25.33 kg/m2 BSA: 1.7 m2 PMH: PAF, HTN, HLD, hypothroidism, frequent falls, colon CA s/p surgery (in remission), anemia, GERD, neuropathy, depression, chronic back pain, arthritis CHADS-VASC: 4 HAS-BLED: 4 EK11/07/2023 IMPRESSION: SINUS RHYTHM NORMAL ECG CT Chest: 10/09/2023 FINDINGS: Left atrium measurements: * Depth: 55 mm * Length: 49 mm * Diameter (during atrial diastole): 64 mm Left atrial appendage: * Ostium measurements: Area 404 cm2; circumference 73 cm; 25 mm length x 21 mm width * Shape: Cauliflower There is no evidence of left atrial appendage thrombus. Interatrial septum measures 2 mm thick at the fossa ovalis and is free of device or thrombus. Esophagus lies immediately posterior to the left inferior pulmonary vein. NOTES Patient seen by Structural Heart Auto Body Service Mechanic for consult to the Structural Heart Program [facility]. Process for LAAO evaluation explained to patient and LAAO procedure explained. Education booklet given to patient. All questions answered at this time. PLAN HUMBERTO on table for LAAO measurements and to rule out LA thrombus If no Thrombus, proceed with LAAO with Dr. Wahl. documented in this encounter Miscellaneous Notes * Plan of Care - Hamida Zimmerman RN - 11/17/2023 1:27 PM CDT Goals: Clinical Goals for the Shift: vss, comfort, safety Summary: Problem: Discharge Planning Goal: Understanding discharge needs will improve 11/17/20231326 by Hamida Zimmerman RN Outcome: Completed 11/17/2023836 by Hamida Zimmerman RN Outcome: Progressing Problem: Cardiovascular Goal: Maintains optimal cardiac output and hemodynamic stability 11/17/20231326 by Hamida Zimmerman RN Outcome: Completed 11/17/2023836 by Hamida Zimmerman RN Outcome: Progressing Goal: Absence of cardiac dysrhythmias or at baseline 11/17/20231326 by Hamida Zimmerman RN Outcome: Completed 11/17/2023836 by Hamida Zimmerman RN Outcome: Progressing Goal: Cardiovascular status will improve 11/17/20231326 by Hamida Zimmerman RN Outcome: Completed 11/17/2023836 by Hamida Zimmerman RN Outcome: Progressing Problem: Skin/Tissue Integrity Goal: Skin integrity remains intact 11/17/20231326 by Hamida Zimmerman RN Outcome: Completed 11/17/2023836 by Hamida Zimmerman RN Outcome: Progressing Goal: Incisions, wounds, or drain sites healing without S/S of infection 11/17/20231326 by Hamida Zimmerman RN Outcome: Completed 11/17/2023836 by Hamida Zimmerman RN Outcome: Progressing Problem: Fall Risk Goal: Ability to state ways to decrease the risk of falls will improve Outcome: Completed Goal: Will remain free from falls Outcome: Completed Goal: Will remain free from injury from falls Outcome: Completed * Initial Assessments - Eileen Way RN - 11/17/2023 12:30 PM CDT CM Low Risk Discharge Planning Assessment Note Information Obtained From: Patient (11/17/23 1230) Primary Care Provider: Gadiel Zavala MD Preferred Pharmacy: [facility] [id number] - [address] [address] Primary Caregiver: Self Who does the patient or legal guardian want to receive education instruction and discharge plans for after care assistance?: Name Caregiver Name: Satish Castillo Relationship to patient: spouse Caregiver Contact Information: [phone] Home Care Services: No Durable Medical Equipment: Motorized wheelchair, Walker (wheeled), Walker (no wheels), Toilet riser, Tub bench Living Arrangements: Spouse/significant other Type of Residence: Private residence Payor Source: Medicare advantage, Prescription benefits Does the patient need discharge transport arranged?: No (11/17/23 7696) Additional Information and Discharge Plan: Pt admitted 11/16/23 s/p LAAO & anticipated DC home today. CM met with pt at bedside to complete assessment for initial discharge planning, plan of care & goals for discharge. Demographics verified per face sheet. See designated home health care physician & health care agents for contact info. Pt lives at home with spouse Satish Castillo. Pt has multiple walkers& electric w/c she uses. She reports independent with personal ADLs, & provides transportation. Preferred pharmacy [facility] on file & she will make her own PCP follow-up appointment. Goal is to return home with upon discharge. No identified CM discharge needs. MELISSA Torrez-RN [facility] [phone] * Plan of Care - Hamida Zimmerman RN - 11/17/2023 8:37 AM CDT Problem: Discharge Planning Goal: Understanding discharge needs will improve Outcome: Progressing Problem: Cardiovascular Goal: Maintains optimal cardiac output and hemodynamic stability Outcome: Progressing Goal: Absence of cardiac dysrhythmias or at baseline Outcome: Progressing Goal: Cardiovascular status will improve Outcome: Progressing Goals: Clinical Goals for the Shift: VSS, comfort, safety Summary: * Plan of Care - Jorge Nunez RN - 11/16/2023 7:48 PM CDT Problem: Discharge Planning Goal: Understanding discharge needs will improve Outcome: Progressing Problem: Cardiovascular Goal: Maintains optimal cardiac output and hemodynamic stability Outcome: Progressing Goal: Absence of cardiac dysrhythmias or at baseline Outcome: Progressing Goal: Cardiovascular status will improve Outcome: Progressing Problem: Skin/Tissue Integrity Goal: Skin integrity remains intact Outcome: Progressing Goal: Incisions, wounds, or drain sites healing without S/S of infection Outcome: Progressing Goals: Clinical Goals for the Shift: Monitor groin site, stable vss, comfort and safety, remains free fromfalls Summary: No acute changes noted. Will continue to monitor. documented in this encounter Plan of Treatment Pending Results Name Type Priority Associated Diagnoses Date/Time Transesophageal Echo (HUMBERTO) W Doppler/CF Echocardiography Routine 11/16/2023 1 2:58 PM CDT Scheduled Orders Name Type Priority Associated Diagnoses Order Schedule Transesophageal Echo (HUMBERTO) W Doppler/CF Echocardiography Routine Once for 1 Occurrences starting 11/16/2023 until 11/16/2023 documented as of this encounter Goals Goal Patient Goal Type Associated Problems Recent Progress Patient-Stated? Author Increase physical activity Exercise Lyudmila Shah, LOGAN Note: She is doing arm and leg exercises from Pt. She was in rehab after neck surgery for 2 weeks in March 2017 documented as of this encounter Procedures Procedure Name Priority Date/Time Associated Diagnosis Comments TRANSTHORACIC ECHO (TTE) LIMITED/FOLLOW UP W LTD DOPPLER/CF WO CONTRAST Routine 11/17/2023 9:20 AM CDT ECG 12-LEAD Routine 11/17/2023 8:01 AM CDT EGFR Routine 11/17/2023 7:45 AM CDT DIFFERENTIAL AUTO Routine 11/17/2023 7:4 5 AM CDT CBC WITH AUTO DIFFERENTIAL Routine 11/17/2023 7:45 AM CDT BASIC METABOLIC PANEL Routine 11/17/2023 7:45 AM CDT APTT Routine 11/16/2023 2:25 PM CDT PROTIME-INR Routine 11/16/2023 2:25 PM CDT MAGNESIUM Routine 11/16/2023 2:25 PM CDT XR CHEST 1 VIEW Routine 11/16/2023 1:38 PM CDT INTRACARDIAC ECHOCARDIOGRAM Routine 11/16/2023 1:03 PM CDT Paroxysmal atrial fibrillation (CMS/HCC) (HCC) PERC MAURA CLOSURE W/IMPLANT (WATCHMAN) [id number] Routine 11/16/2023 1:03 PM CDT Paroxysmal atrial fibrillation (CMS/HCC) (HCC) POCT ACTIVATED CLOTTING TIME, HIGH RANGE Routine 11/16/2023 12:44 PM CDT POCT ACTIVATED CLOTTING TIME, HIGH RANGE Routine 11/16/2023 12:24 PM CDT POCT ACTIVATED CLOTTING TIME, HIGH RANGE Routine 11/16/2023 12:13 PM CDT B CHECK SAMPLE STAT 11/16/2023 8:26 AM CDT documented in this encounter Results * TRANSTHORACIC ECHO (TTE) LIMITED/FOLLOW UP W LTD DOPPLER/CF WO CONTRAST (11/17/2023 9:20 AM CDT) Anatomical Region Laterality Modality Ultrasound 11/17/2023 9:00 AM CDT Narrative 11/18/2023 11:29 AM CDT [address], [place] [address] Limited Echocardiogram Report Patient Name: GEORGIANA BOND D : 1950 Study Date: 11/17/2023 9:00:22 AM Gender: F Tech: CT Location: [id number] Ref Provider: EMILIO WAHL ?Height(Cm): 160 BSA: ??Weight(Kg): 64 Heart Rate: 134 BP: 149/82 Quality: Good Order Provider: EMILIO WAHL PROCEDURES: Echocardiographic Report: Limited transthoracic echocardiogram with 2D and color Doppler. INDICATIONS: S/P LAAO with 22mm Amulet. Measurements: FINDINGS: Left Ventricle: Normal left ventricular size. Mild concentric left ventricular hypertrophy. Hyperdynamic left ventricular function. No focal wall motion abnormalities. Ejection fraction is visually estimated at >70 %. Left Atrium: Mild enlargement of left atrium. Amplatzer amulet left atrial appendage closure devices noted with figure of 8 artifact. Right Ventricle: Normal right ventricular size. Normal right ventricular systolic function. Right Atrium: The right atrium is normal in size. Aortic Valve: Aortic valve not well visualized. Mitral Valve: Normal structure of the mitral valve. No mitral valve regurgitation is seen. Pulmonic Valve: Pulmonic valve not well visualized. Pericardium: Normal pericardium with no significant pericardial effusion. CONCLUSIONS: Limited echo with Doppler. Normal left ventricular size. Mild left ventricular hypertrophy. Hyperdynamic left ventricular function. Ejection fraction is visually estimated at >70 %. Normal right ventricular size. Normal right ventricular systolic function. Mild enlargement of left atrium. Amplatzer amulet left atrial appendage closure devices noted with figure of 8 artifact. Normal structure of the mitral valve. No significant mitral valve regurgitation is seen. Aortic valve not well visualized. Appears sclerotic. Normal pericardium with no significant pericardial effusion. Electronically Signed By: Emilio Wahl MD, [facility] 2023-11-18 11:29:31 CDT Procedure Note Emilio Wahl MD - 11/18/2023 [place] [address] Limited Echocardiogram Report Patient Name: GEORGIANA BOND D : 1950 Study Date: 11/17/2023 9:00:22 AM Gender: F Tech: CT Location: [id number] Ref Provider: EMILIO WAHL Height(Cm): 160 BSA: Weight(Kg): 64 Heart Rate: 134 BP: 149/82 Quality: Good Order Provider: EMILIO WAHL PROCEDURES: Echocardiographic Report: Limited transthoracic echocardiogram with 2D and color Doppler. INDICATIONS: S/P LAAO with 22mm Amulet. Measurements: FINDINGS: Left Ventricle: Normal left ventricular size. Mild concentric left ventricularhypertrophy. Hyperdynamic left ventricular function. No focal wall motion abnormalities. Ejectionfraction is visually estimated at >70 %. Left Atrium: Mild enlargement of left atrium. Amplatzer amulet left atrial appendageclosure devices noted with figure of 8 artifact. Right Ventricle: Normal right ventricular size. Normal right ventricular systolicfunction. Right Atrium: The right atrium is normal in size. Aortic Valve: Aortic valve not well visualized. Mitral Valve: Normal structure of the mitral valve. No mitral valve regurgitation isseen. Pulmonic Valve: Pulmonic valve not well visualized. Pericardium: Normal pericardium with no significant pericardial effusion. CONCLUSIONS: Limited echo with Doppler. Normal left ventricular size. Mild leftventricular hypertrophy. Hyperdynamic left ventricular function. Ejection fraction isvisually estimated at >70 %. Normal right ventricular size. Normal right ventricular systolicfunction. Mild enlargement of left atrium. Amplatzer amulet left atrial appendageclosure devices noted with figure of 8 artifact. Normal structure of the mitral valve. No significant mitral valveregurgitation is seen. Aortic valve not well visualized. Appears sclerotic. Normal pericardium with no significant pericardial effusion. Electronically Signed By: Emilio Wahl MD, [facility] 2023-11-18 11:29:31 CDT Emilio Wahl MD CV ECHO PROCEDURES Final Result * ECG 12 lead (11/17/2023 8:01 AM CDT) 11/17/2023 8:01 AM CDT Narrative [facility] - 11/19/2023 7:15 PM CDT Vent Rate: 77 bpm RR Interval: 770 msec MO Interval: 163 msec QRS Duration: 82 msec QT Interval: 378 msec QTC Interval: 410 msec P-R-T [place]: 30 - 26 - 12 degrees IMPRESSION: SINUS RHYTHM NORMAL ECG Electronically Signed By: Emilio Wahl MD, [facility] Emilio Wahl MD ECG ORDERABLES Final Result [facility] * eGFR (11/17/2023 7:45 AM CDT) eGFR >90 >=60 mL/min/1. 73 m2 Comment: Interpretive Data Reference Interval Normal ?>/= 90 mL/min/1.73m2 Mildly decreased* ? 60 - 89 mL/min/1.73m2 Mildly to moderately decreased ?45 - 59 mL/min/1.73m2 Moderately to severely decreased ??30 - 44 mL/min/1.73m2 Severely decreased ?15 - 29 mL/min/1.73m2 Kidney Failure ?< 15 ??mL/min/1.73m2 *Relative to young adult level Estimated glomerular filtration rate is determined by the 2020 CKD-EPI equation recommended by the National Kidney Foundation (A Unifying Approach to GFR Estimation: Recommendations of the NKF-ASK Task Force on Reassessing the Inclusion of Race in Diagnosing Kidney Disease, JASN 2020). The CKD-EPI equation should not be used for patients with unstable renal function and has not been validated in children and those over 70. Current interpretive data was last reviewed 2021. Blood 11/17/2023 7:45 AM CDT 11/17/2023 8:04 AM CDT us Emilio Wahl MD LAB BLOOD ORDERABLES Final Resul t MARK [id number] [address] Department [place] [address] * Differential, auto (11/17/2023 7:45 AM CDT) Neutrophil abs 5.6 1.5 - 6.5 K/cumm Imm gran abs 0.0 0.0 - 0.1 K/cumm [facility] Lymphocyte abs 1.2 0.8 - 3.3 K/cumm [facility] Monocyte abs 0.6 0.2 - 0.8 K/cumm [facility] Eosinophil abs 0.0 0.0 - 0.5 K/cumm [facility] Basophil abs 0.0 0.0 - 0.1 K/cumm [facility] Neutrophil pct 75.4 % [facility] Comment: Interpretive Data Percent cell count reference ranges are not reported, since discordance with absolute values may lead to misinterpretation of CBC data. Current Interpretive Data was last revised on 2017. Imm gran pct 0.4 % [facility] Comment: Interpretive Data Percent cell count reference ranges are not reported, since discordance with absolute values may lead to misinterpretation of CBC data. Current Interpretive Data was last revised on 2017. Lymphocyte pct 15.8 % [facility] Comment: Interpretive Data Percent cell count reference ranges are not reported, since discordance with absolute values may lead to misinterpretation of CBC data. Current Interpretive Data was last revised on 2017. Monocyte pct 7.6 % [facility] Comment: Interpretive Data Percent cell count reference ranges are not reported, since discordance with absolute values may lead to misinterpretation of CBC data. Current Interpretive Data was last revised on 2017. Eosinophil pct 0.5 % [facility] Comment: Interpretive Data Percent cell count reference ranges are not reported, since discordance with absolute values may lead to misinterpretation of CBC data. Current Interpretive Data was last revised on 2017. Basophil pct 0.3 % [facility] Comment: Interpretive Data Percent cell count reference ranges are not reported, since discordance with absolute values may lead to misinterpretation of CBC data. Current Interpretive Data was last revised on 2017. Blood 11/17/2023 7:45 AM CDT 11/17/2023 8:04 AM CDT us Emilio Wahl MD LAB BLOOD ORDERABLES Final Resul t [address] [address] [address]ain[address] Department [place] [address] * CBC with auto differential (11/17/2023 7:45 AM CDT) Pathologist [facility] WBC 7.4 3.8 - 9.9 K/cumm Hgb 12.2 11.9 - 15.5 g/dL [facility] Hct 36.7 35.6 - 45.5 % [facility] Plt 282 150 - 400 K/cumm [facility] MPV 9.3 9.1 - 12.3 fL [facility] RBC 4.08 3.90 - 5.20 M/cumm [facility] MCV 90.0 81.3 - 96.4 fL [facility] MCH 29.9 27.1 - 33.3 pg [facility] MCHC 33.2 32.3 - 35.7 g/dL [facility] RDW CV 13.8 11.1 - 14.9 % [facility] CH RDW SD 45.4 35.7 - 48.1 fL [facility] NRBC abs 0.00 0.00 - 0.01 K/cumm [facility] Blood 11/17/2023 7:45 AM CDT 11/17/2023 8:04 AM CDT us Emilio Wahl MD LAB BLOOD ORDERABLES Final Resul t [facility] [place] [address] [address] [place] [address] * (ABNORMAL) Basic metabolic panel (11/17/2023 7:45 AM CDT) Pathologist [facility] Sodium 136 135 - 145 mmol/L Potassium, pl 3.7 3.3 - 4.9 mmol/L [facility] Chloride 99 97 - 110 mmol/L [facility] CO2 25 22 - 32 mmol/L [facility] Anion gap 12 2 - 15 mmol/L [facility] BUN 8 6 - 25 mg/dL [facility] Creatinine 0.56(L) 0.60 - 1.10 mg/dL [facility] [place] Glucose 110 70 - 199 mg/dL [facility] Comment: Interpretive Data Fasting glucose >/= 126 mg/dl is diagnostic for diabetes. ?? Fasting is defined as no caloric intake for at least 8 hours. Fasting glucose between 100 mg/dl to 125 mg/dl is diagnostic of prediabetes. In a patient with classic symptoms of hyperglycemia or hyperglycemic crisis, a random glucose >/= 200 mg/dl is diagnostic for diabetes. In the absence of unequivocal hyperglycemia, results should be confirmed by repeat testing. The classification and Diagnosis of Diabetes Diabetes Care 2021; 46: S19-S40. Current interpretive data was last revised 2022. Calcium 8.8 8.5 - 10.3 mg/dL [facility] Blood 11/17/2023 7:45 AM CDT 11/17/2023 8:04 AM CDT Emilio Wahl MD LAB BLOOD ORDERABLES Edited Resu lt - Final Performing Organization Address City/[facility] Co de Phone Number [place] [address] [address] Department [employer] [place], [place] [id number] * aPTT (11/16/2023 2:25 PM CDT) aPTT 37 28 - 38 sec Comment: Interpretive Data Heparin therapeutic range: 66.0 - 100.0 seconds. Range based on correlation with therapeutic heparin activity range of 0.3 - 0.7 Units/mL. Current interpretive data was last revised on 2023. Blood 11/16/2023 2:25 PM CDT 11/16/2023 2:32 PM CDT Emilio Wahl MD LAB BLOOD ORDERABLES Final Resul t Performing Organization Address [facility] Co de Phone Number [place] [address] [address] Department of [employer] [place], [place] [id number] * Protime-INR (11/16/2023 2:25 PM CDT) PT 11.8 9.7 - 13.0 sec INR 1.09 0.90 - 1.20 [facility] Comment: Interpretive data Oral anticoagulant therapeutic ranges: Venous thromboembolism prophylaxis or treatment: 2.0-3.0 CARDIOLOGY Standard range: 2.0-3.0 High-intensity range: 2.5-3.5 Refer to indication-specific guidelines for appropriate target ranges for prosthetic heart valve replacement. Current interpretive data was last revised on 2019. Blood 11/16/2023 2:25 PM CDT 11/16/2023 2:32 PM CDT Emilio Wahl MD LAB BLOOD ORDERABLES Final Resul t Performing Organization Address [facility] Co de Phone Number [place] [address] [address]ia Department [employer] [place] [place] [address] * Magnesium (11/16/2023 2:25 PM CDT) Magnesium 1.9 1.4 - 2.5 mg/dL Blood 11/16/2023 2:25 PM CDT 11/16/2023 2:32 PM CDT Emilio Wahl MD LAB BLOOD ORDERABLES Final Resul t Performing Organization Address [facility] de Phone Number [place] [address] [address] Department [employer] [place] [place] [address] * XR Chest 1 view (11/16/2023 1:38 PM CDT) Anatomical Region Laterality Modality Body, Chest N/A Computed Radiogr aphy 11/16/2023 1:48 PM CDT Impressions 11/16/2023 1:48 PM CDT Aortic valve replacement. ??No acute findings. Electronically signed by: Myles Ruiz M.D. Narrative 11/16/2023 1:48 PM CDT EXAMINATION: XR CHEST 1 VIEW DATE: 11/16/2023 1:35 PM HISTORY: Aortic stenosis FINDINGS:No priors. ??Heart size normal. ??Tortuous aorta. ??Aortic valve replacement seen. ??Loop recorder. ??Lungs clear. ??No failure or pneumothorax Procedure Note Myles Ruiz MD - 11/16/2023 EXAMINATION: XR CHEST 1 VIEW DATE: 11/16/2023 1:35 PM HISTORY: Aortic stenosis FINDINGS:No priors. Heart size normal. Tortuous aorta. Aortic valve replacement seen. Loop recorder. Lungs clear. No failure or pneumothorax IMPRESSION: Aortic valve replacement. No acute findings. Electronically signed by: Myles Ruiz M.D. us Emilio Wahl MD IMG XR PROCEDURES Final Result * PERC MAURA CLOSURE W/IMPLANT (WATCHMAN) [id number], INTRACARDIAC ECHOCARDIOGRAM (11/16/2023 1:03 PM CDT) Anatomical Region Laterality Modality X-Ray Angiograph y Addenda Addendum by Emilio Wahl MD on 11/16/2023 3:44 PM CDT LEFT ATRIAL APPENDAGE OCCLUSION (LAAO) PROCEDURE REPORT DATE OF PROCEDURE: 11/16/23 INDICATION FOR PROCEDURE: ??Atrial fibrillation with contraindication for anticoagulation. BRIEF CLINICAL HISTORY: Georgiana Bond is a 73 y.o. female with paroxysmal atrial fibrillation, hypertension, hypothyroidism on thyroxine replacement, history of frequent falls, history of CA colon status post surgery. ?? Patient has PAF, and has had numerous falls due to gait instability from neuropathy. ??She has not been on anticoagulation due to frequent falls. ?? Her current CHADSVASc score is 4 putting her at higher risk for stroke in the absence of chronic anticoagulation. ??After discussing benefits, risks and alternatives, patient and her were eager to proceed with left atrial appendage closure for CVA prophylaxis. Preprocedure CTA heart was performed for left atrial appendage dimensions. No left atrial appendage thrombus was noted. Preprocedure cardiac CT was performed for assessment of the left atrial appendage. ??Left atrial appendage thrombus was ruled out prior to the procedure. ??Patient was given IV hydration with normal saline prior to the procedure. Benefits and risks of the procedure were discussed with the patient in depth, and informed consent was taken prior to the procedure. ??Risks of the procedure include but are not limited to vascular complications like groin hematoma, retroperitoneal bleed, vessel perforation; pericardial effusion or tamponade; cardiac arrhythmias; device embolization, air embolization, device thrombosis or leak, contrast induced nephropathy, . ??After discussing all the benefits, risks and alternatives, patient was willing to proceed with the procedure. PROCEDURES PERFORMED: Successful implantation of 22 mm Brasher Amplatzer Amulet left atrial appendage occluder (CPT 95018) Intracardiac echocardiogram (ICE) Deployment of 3 Perclose vascular closure devices at the right common femoral venous access sites SEDATION: ??MAC - by anesthesiology team ACCESS SITES: ??Right common femoral vein PROCEDURE: ?? After obtaining informed consent, patient was brought to the sanitation laborer and prepped and draped in the usual sterile manner. ??Time-out and immediate reassessment of the patient was performed. ??Patient was placed under MAC by the anesthesiologist team. ?? Two right common femoral venous accesses were taken under ultrasound guidance with micropuncture needle. ??Two Perclose vascular closure device were placed. ??A 12 Welsh sheaths were inserted in the inferior access site over a 035 wire for ICE. ??[place] [address] units of unfractionated heparin for procedural anticoagulation at different intervals during the procedure, to maintain ACT between 250-350 seconds. ?? ACT was monitored throughout the procedure at regular intervals. ?? Stratford sheath was advanced in the superior access site of right common femoral vein. Atrial septal puncture was performed using Stratford transseptal needle under intracardiac echo and fluoroscopic guidance. ??The sheath was advanced to the left atrium towards the pulmonary vein over the pre shaped wire. ??The sheath was taken out and it was exchanged with a 14 Welsh amulet delivery sheath. ??The sheath was advanced into the left atrium, the atrial septum was dilated with the sheath, and then sheath was taken out over the wire and positioned in the right atrium. ??Next, ICE catheter was advanced into the left atrial cavity. ??Left atrial appendage measurement was performed. ??After this, the 14 Welsh sheath was reintroduced over Stratford wire. A 5 Welsh pigtail catheter was advanced over the wire and the pre shaped wire was taken out. ??Left atrial pressure was measured at 8 mmHg despite aggressive IV normal saline administration. A 5 Welsh pigtail catheter was later positioned in the left atrial appendage. ??Left atrial appendage was visualized after injection of contrast in LUNSFORD caudal projection. The tip of the sheath was advanced close to the left atrial appendage orifice over the pigtail catheter. Next, the delivery sheath of the Amplatzer amulet was thoroughly prepped and flushed with normal saline multiple times to remove any air from the device. ??Wet to wet connection was performed and the delivery sheath was advanced to the left atrial appendage orifice through the delivery sheath after removal of the pigtail catheter. ??22 mm Amulet at device was deployed under 3D and 4D ICE and fluoroscopic guidance. ??Verification of proper Amulet device deployment was performed with CLOSE signs (Cx lobe at least 2/3 distal, lobe compression, orientation of lobe in line with axis of the MAURA neck, separation between the disc lobe and the disc, elliptical -concave disc). TUG test was performed. Post-implant ICE did not show mateo-device leak or pericardial effusion. After completion of successful procedure, hemostasis was achieved by deployment of Perclose and Vascade hemostatic devices. ??Patient received 50 mg protamine at the conclusion of the procedure. Patient tolerated procedure well without any immediate procedural complications. ??Estimated blood loss minimal. ??All specimens removed. ?? Patient was transferred to the telemetry bed in hemodynamically stable condition. ??Patient's family was updated about the procedure. CONCLUSIONS: Successful implantation of 22 Amplatzer Amulet left atrial appendage closure device. PLAN/RECOMMENDATIONS: Patient will be admitted to the telemetry unit and will be monitored for any potential postprocedure complications. ?? Follow-up HUMBERTO in 45 to 90 days for device surveillance to assess for any peridevice leak and device related thrombus. ??Patient has history of intolerance to aspirin. ??Single antiplatelet treatment with clopidogrel will be pursued for now. ??Endocarditis prophylaxis for 6 months. ?? Outpatient cardiology follow-up. 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 Emilio Wahl MD, [facility] 11/16/23 us Emilio Wahl MD CV ELECTROPHYSIOLOGY PROCS Edite d Result - Final * (ABNORMAL) POC Activated Clotting Time, High Range (11/16/2023 12:44 PM CDT) ACT 293(H) 87 - 138 sec Blood 11/16/2023 12:4 4 PM CDT 11/16/2023 12:44 PM CDT us Emilio Wahl MD LAB BLOOD ORDERABLES Final Resul t Performing Organization Address [facility]/ZIP Co de Phone Number MARK DENT [phone] [address] Department [facility] [place], [place] [id number] * (ABNORMAL) POC Activated Clotting Time, High Range (11/16/2023 12:24 PM CDT) ACT 337(H) 87 - 138 sec Blood 11/16/2023 12:2 4 PM CDT 11/16/2023 12:24 PM CDT us Emilio Wahl MD LAB BLOOD ORDERABLES Final Resul t Performing Organization Address [facility] Co de Phone Number MARK DENT [phone] [address] Department [place] [address] * (ABNORMAL) POC Activated Clotting Time, High Range (11/16/2023 12:13 PM CDT) ACT 280(H) 87 - 138 sec Blood 11/16/2023 12:1 3 PM CDT 11/16/2023 12:13 PM CDT us Emilio Wahl MD LAB BLOOD ORDERABLES Final Resul t Performing Organization Address [facility] Co de Phone Number MARK DENT [phone] [address] Department [place] [address] * Check Sample (11/16/2023 8:26 AM CDT) ABO Rh A Positive CH [facility] OTHER 11/16/2023 8:26 AM CDT 11/16/2023 8:38 AM CDT us Emilio Wahl MD LAB BLOOD ORDERABLES Final Resul t Performing Organization Address [facility] Co de Phone Number MARK DENT [phone] [address] Department [place] [address] CH documented in this encounter Visit Diagnoses Diagnosis Paroxysmal atrial fibrillation (CMS/HCC) (HCC)- Primary Atrial fibrillation Paroxysmal atrial fibrillation (CMS/HCC) (HCC) Atrial fibrillation Falls frequently Personal history of fall Paroxysmal atrial fibrillation (CMS/HCC) (HCC) Atrial fibrillation documented in this encounter Admitting Diagnoses Diagnosis Paroxysmal atrial fibrillation (CMS/HCC) (HCC) Atrial fibrillation Presence of Amulet left atrial appendage closure device documented in this encounter Administered Medications Inactive Administered Medications - up to 3 most recent administrations Medication Order MAR Action Action Date Dose Rate Site acetaminophen (TYLENOL) tablet 650 mg 650 mg, oral, Every 4 hours PRN, 1st line for pain, Starting on Mon11/17/23 at 0439, Phase I & Post-op Floor, Indications: PainIndications:Pain Given 11/17/2023 4:55 AM CDT 650 mg atorvastatin (LIPITOR) tablet 20 mg 20 mg, oral, Daily, First dose on Mon11/17/23 at 0900, Phase I & Post-op Floor Given 11/17/2023 9:25 AM CDT 20 mg clopidogreL (PLAVIX) tablet 75 mg 75 mg, oral, Daily, First dose on Mon11/18/23 at 0900, Phase I & Post-op Floor, Indications: coronary artery diseaseIndications:coronary artery disease DULoxetine DR (CYMBALTA) extended release capsule 60 mg 60 mg, oral, 2 times daily, First dose on Mon11/17/23 at 0900, Phase I & Post-op Floor, Capsule may be opened and contents mixed with applesauce or apple juice ONLY. Do not crush or chew capsule Given 11/17/2023 9:25 AM CDT 60 mg heparin in 0.9% sodium chloride 1,000 units/500 mL (2 unit/mL) infusion (premix) Code/trauma/sedation medication, Starting on Juany 11/16/23 at 1125, Intra-Procedure (CV) Given 11/16/2023 12:14 PM CDT 500 mL Given 11/16/2023 11:25 AM CDT 1,500 mL iodixanoL (VISIPAQUE) 320 mg iodine/mL injection Code/trauma/sedation medication, Starting on Juany 11/16/23 at 1254, Intra-Procedure (CV) Given 11/16/2023 12:54 PM CDT 20 mL Lactated Ringer's (LR) infusion 30 mL/hr, intravenous, Continuous, Starting on Juany 11/16/23 at 0900 New Bag 11/16/2023 12:47 PM CDT Rate/Dose Change 11/16/2023 12:34 PM CDT 800 mL /hr Rate/Dose Verify 11/16/2023 11:14 AM CDT 30 mL/ hr levothyroxine (SYNTHROID) tablet 50 mcg 50 mcg, oral, Daily, First dose on Mon11/17/23 at 0500, Phase I & Post-op Floor, Administer on an empty stomach, preferably 30 minutes before breakfast. Take 4 hours apart from antacids, iron and calcium products. Separate from tube feeds, if applicable. Given 11/17/2023 5:00 AM CDT 50 mcg lidocaine (XYLOCAINE) 10 mg/mL (1 %) injection Code/trauma/sedation medication, Starting on Juany 11/16/23 at 1154, Intra-Procedure (CV), Indications: Administration of Local AnesthesiaIndications:Administratio n of Local Anesthesia Given 11/16/2023 11:54 AM CDT 10 mL Right Groin metoprolol (LOPRESSOR) injection 5 mg 5 mg, intravenous, Administer over 1 Minutes, Every 15 min PRN, high blood pressure, other, Tachycardia, Starting on Mon11/17/23 at 1032, For 2 doses Given 11/17/2023 10:39 AM CDT 5 mg metoprolol XL (TOPROL-XL) extended release tablet 100 mg 100 mg, oral, Daily, First dose on Mon11/17/23 at 0900, Phase I & Post-op Floor, Tablets that are scored may be split, but do not crush, chew, dissolve, open or otherwise manipulate tablet/capsule. Given 11/17/2023 9:27 AM CDT 100 mg metoprolol XL (TOPROL-XL) extended release tablet 25 mg 25 mg, oral, Daily, First dose on Mon11/17/23 at 0900, Phase I & Post-op Floor, Tablets that are scored may be split, but do not crush, chew, dissolve, open or otherwise manipulate tablet/capsule. Given 11/17/2023 9:24 AM CDT 25 mg ondansetron (ZOFRAN) injection 4 mg 4 mg, intravenous, Administer over 2 Minutes, Every 6 hours PRN, nausea, vomiting, Starting on Mon11/17/23 at 0439, Phase I & Post-op Floor, Indications: nausea and vomitingIndications:nausea and vomiting pantoprazole DR (PROTONIX) extended release tablet 40 mg 40 mg, oral, Daily, First dose on Mon11/17/23 at 0900, Phase I & Post-op Floor, Do not crush, chew, cut, dissolve, open or otherwise manipulate tablet/capsule., Indications: Stress Ulcer ProphylaxisIndications:Stress Ulcer Prophylaxis Given 11/17/2023 9:24 AM CDT 40 mg documented in this encounter Active and Recently Administered Medications Times are shown in CDT. Scheduled Medication Order 11/15/2023 11/16/2023 11/17/2023 acetaminophen (TYLENOL) tablet 500 mg (COMPLETED) 500 mg, oral, Once, On Juany 11/16/23 at 0900, For 1 dose, Pre-Op, Indications: Pre-Emptive Analgesia 0854 (Given - Provider: Ina Renae RN) atorvastatin (LIPITOR) tablet 20 mg 20 mg, oral, Daily, First dose on Mon11/17/23 at 0900, Phase I & Post-op Floor 0925 (Given - Provid er: Hamida Zimmerman RN) clopidogreL (PLAVIX) tablet 75 mg (COMPLETED) 75 mg, oral, Once, On Mon11/17/23 at 0515, For 1 dose, Phase I & Post-op Floor, If patient able to swallow, Indications: Thrombosis Prevention 0455 (Given - Provid er: Caitlin Cobb RN) clopidogreL (PLAVIX) tablet 75 mg 75 mg, oral, Daily, First dose on Mon11/18/23 at 0900, Phase I & Post-op Floor, Indications: coronary artery disease DULoxetine DR (CYMBALTA) extended release capsule 60 mg 60 mg, oral, 2 times daily, First dose on Mon11/17/23 at 0900, Phase I & Post-op Floor, Capsule may be opened and contents mixed with applesauce or apple juice ONLY. Do not crush or chew capsule 0925 (Given - Provid er: Hamida Zimmerman RN) ferrous sulfate delayed release tablet 65 mg of elemental iron 65 mg of elemental iron, oral, Daily with breakfast, First dose on Mon11/17/23 at 0800, Phase I & Post-op Floor, 325 MG OF FERROUS SULFATE = 65 MG OF ELEMENTAL IRON, Indications: Iron Deficiency Anemia 0928 (Not Given - Provider: Hamida Zimmerman RN - Reason: Medication not available) levothyroxine (SYNTHROID) tablet 50 mcg 50 mcg, oral, Daily, First dose on Mon11/17/23 at 0500, Phase I & Post-op Floor, Administer on an empty stomach, preferably 30 minutes before breakfast. Take 4 hours apart from antacids, iron and calcium products. Separate from tube feeds, if applicable. 0500 (Given - Provid er: Caitlin Cobb RN) losartan (COZAAR) tablet 25 mg 25 mg, oral, Daily, First dose on Mon11/17/23 at 0900, Phase I & Post-op Floor 927 (Not Given - Provider: Hamida Zimmerman RN - Reason: Other - Comment: Hold per Dr Wahl) metoprolol XL (TOPROL-XL) extended release tablet 100 mg 100 mg, oral, Daily, First dose on Mon11/17/23 at 0900, Phase I & Post-op Floor, Tablets that are scored may be split, but do not crush, chew, dissolve, open or otherwise manipulate tablet/capsule. 926 (Given - Provid er: Hamida Zimmerman RN) metoprolol XL (TOPROL-XL) extended release tablet 25 mg 25 mg, oral, Daily, First dose on Mon11/17/23 at 0900, Phase I & Post-op Floor, Tablets that are scored may be split, but do not crush, chew, dissolve, open or otherwise manipulate tablet/capsule. 923 (Given - Provid er: Hamida Zimmerman RN) pantoprazole DR (PROTONIX) extended release tablet 40 mg 40 mg, oral, Daily, First dose on Mon11/17/23 at 0900, Phase I & Post-op Floor, Do not crush, chew, cut, dissolve, open or otherwise manipulate tablet/capsule., Indications: Stress Ulcer Prophylaxis 923 (Given - Provid er: Hamida Zimmerman RN) Continuous Medication Order 11/15/2023 11/16/2023 11/17/2023 Lactated Ringer's (LR) infusion 30 mL/hr, intravenous, Continuous, Starting on Juany 11/16/23 at 0900 0854 (New Bag - Provider: Ina Renae RN)1114 (Rate/Dose Verify - Provider: MARIN Mayen)1234 (Rate/Dose Change - Provider: MARIN Mayen)1246 (Paused - Provider: MARIN Mayen - Comment: Switch to gravity)1247 (New Bag - Provider: MARIN Mayen) 1817 (Due: Stopped) sodium chloride 0.9% infusion 100 mL/hr, intravenous, Continuous, Starting on Mon11/17/23 at 0515, For 6 hours, Phase I & Post-op Floor 0732 (Canceled Entry - Provider: Hamida Zimmerman RN) PRN Medication Order 11/15/2023 11/16/2023 11/17/2023 acetaminophen (TYLENOL) tablet 650 mg 650 mg, oral, Every 4 hours PRN, 1st line for pain, Starting on Mon11/17/23 at 0439, Phase I & Post-op Floor, Indications: Pain 0455 (Given - Provid er: Caitlin Cobb RN) famotidine (PEPCID) tablet 20 mg (COMPLETED) 20 mg, oral, Once as needed, heartburn, Starting on Juany 11/16/23 at 2000, For 1 dose 2013 (Given - Provider: Caitlin Cobb RN) heparin in 0.9% sodium chloride 1,000 units/500 mL (2 unit/mL) infusion (premix) (CANCELED) Code/trauma/sedation medication, Starting on Juany 11/16/23 at 1125, Intra-Procedure (CV) 1125 (Given - Provider: Emilio Wahl MD)1214 (Given - Provider: Emilio Wahl MD) iodixanoL (VISIPAQUE) 320 mg iodine/mL injection (CANCELED) Code/trauma/sedation medication, Starting on Juany 11/16/23 at 1254, Intra-Procedure (CV) 1254 (Given - Provider: Emilio Wahl MD) lidocaine (XYLOCAINE) 10 mg/mL (1 %) injection (CANCELED) Code/trauma/sedation medication, Starting on Juany 11/16/23 at 1154, Intra-Procedure (CV), Indications: Administration of Local Anesthesia 1154 (Given - Provider: Emilio Wahl MD) metoprolol (LOPRESSOR) injection 5 mg 5 mg, intravenous, Administer over 1 Minutes, Every 15 min PRN, high blood pressure, other, Tachycardia, Starting on Mon11/17/23 at 1032, For 2 doses 1039 (Given - Provid er: Hamida Zimmerman RN) ondansetron (ZOFRAN) injection 4 mg 4 mg, intravenous, Administer over 2 Minutes, Every 6 hours PRN, nausea, vomiting, Starting on Mon11/17/23 at 0439, Phase I & Post-op Floor, Indications: nausea and vomiting documented in this encounter Orders Medications Ordered That Noel ht Not Have Been Administered Count Last Ordered Date First Ordered Date acetaminophen (TYLENOL) 325 mg tablet - ADS Override Pull 1 11/17/2023 acetaminophen (TYLENOL) tablet 650 mg 1 atorvastatin (LIPITOR) tablet 20 mg 1 11/16 clopidogreL (PLAVIX) 75 mg t ablet - ADS Override Pull 1 11/17/2023 clopidogreL (PLAVIX) tablet 75 mg [address] (CYMBALTA) ext ended release capsule 60 mg 1 11/17/2023 ferrous sulfate delayed rele ase tablet 65 mg of elemental iron 1 11/17/2023 levothyroxine (SYNTHROID) 50 mcg tablet - ADS Override Pull 1 11/17/2023 levothyroxine (SYNTHROID) tablet 50 mcg 1 0 11/17/2023 losartan (COZAAR) tablet 25 mg 1 11/17/2023 metoprolol (LOPRESSOR) injection 5 mg 1 metoprolol XL (TOPROL-XL) ex tended release tablet 100 mg 1 11/17/2023 metoprolol XL (TOPROL-XL) ex tended release tablet 25 mg 1 11/17/2023 ondansetron (ZOFRAN) injection 4 mg 3 11/1611/16/[address] (PROTONIX) e xtended release tablet 40 mg 1 11/17/2023 sodium chloride 0.9% infusion 2 11/17/2023 11/16/2023 acetaminophen (TYLENOL) tablet 500 mg 1 Carrier Fluids for Secondary Infusion - 0.9% Sodium Chloride 3 11/16/2023 famotidine (PEPCID) tablet 20 mg 1 11/16/19 24 HYDROmorphone (PF) (DILAUDID ) injection 0.2 mg 2 11/16/2023 Lactated Ringer's (LR) infusion 1 4 naloxone (NARCAN) 0.4 mg/mL injection 0.04-0.4 mg 2 11/16/2023 sodium chloride 0.9% flush 0.5-20 mL 5 10/29 Nursing Count Last Ordered Date First Orde red Date TELEMETRY MONITORING 2 11/17/2023 Admission Count Last Ordered Date First Orde red Date ADMIT TO INPATIENT 1 11/16/2023 Discharge Count Last Ordered Date First Orde red Date DISCHARGE PATIENT 1 11/17/2023 CORE MEASURES Count Last Ordered Date First Ord ered Date REASON FOR NO VTE PROPHYLAXI S - HOSPITAL ADMISSION - MEDICATIONS 1 11/17/2023 documented in this encounter Care Teams Team Physician Relationship Specialty Start Date End Date Gadiel Zavala MD [address] [address] PCP - General 06/13/16 Lyudmila Knox, RN Registered Nurse 04/14/17 Jennifer Escalona, RN Registered Nurse 05/10/17 documented as of this encounter
--- OUTSIDE RECORDS SUMMARY | 2024-04-17 11:48 | XMS_ITS | Encounter Summary ---
Author Organization [facility] Healthcare Address [address] [place] [address] Care Team Providers Care [employer] Sales Associate Name Role Phone Gadiel Zavala MD Primary Care Provider [phone] Lyudmila Knox RN Unavailable Unavailable Jennifer Escalona RN Unavailable Agustina vailable Reason for Visit * Cardiology (Routine) - Closed Specialty Diagnoses / Procedures Referred By Delores t Referred To Contact Diagnoses PAF (paroxysmal atrial fibrillation) (CMS/HCC) (HCC) Procedures DEVICE CHECK - REMOTE Emilio Leggett MD [address] [place] [address] Phone: tel: fax: Referral ID Status Reason Start Date Expiration Date Visits Re quested Visits Authorized [id number] Closed 10/13/2023 04/13/2025 1 1 Encounter Details Date Type Department Care Team (Latest Contact Info) Description 01/22/2024 9:15 AM CDT Ancillary Procedure [facility] Cardiology [address] [place] [address] [place] [phone] Status post placement of implantable loop recorder (Primary Dx); PAF (paroxysmal atrial fibrillation) (CMS/HCC) (HCC); Syncope, unspecified syncope type Social History Tobacco Use Types Packs/Day Years Used Date Smoking Tobacco: Former Cigarettes Q uit: 04/14/1987 Smokeless Tobacco: Never Alcohol Use Standard Drinks/Week Comments Yes 0 (1 standard drink = 0.6 oz pur e alcohol) social [facility] Utilities Answer Date Recorded In the past [...] often do you attend chur ch or mandaen services? Never 11/17/2023 Do you belong to any clubs o r organizations such as evangelical groups, unions, fraternal or athletic groups, or [...] any time in the past 12 m [facility], were you homeless or living in a fpc (including now)? No 11/17/2023 Personal Safety Answer Date Recorded Have you ever been in or are you currently in a harmful physical or emotional relationship or is someone making you feel afraid or unsafe? 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 Author Increase physical activity Exercise Lyudmila Shah, RN Note: She is doing arm and leg exercises from Pt. She was in rehab after neck surgery for 2 weeks in March 2017 documented as of this encounter Procedures Procedure Name Priority Date/Time Associated Diagnosis Comments DEVICE CHECK - REMOTE Routine 01/22/2024 1:27 PM CDT PAF (paroxysmal atrial fibrillation) (CMS/HCC) (HCC) documented in this encounter Results * DEVICE CHECK - REMOTE (01/22/2024 1:27 PM CDT) Anatomical Region Laterality Modality Other Narrative 01/23/2024 2:25 PM CDT [employer] [id number] Loop Recorder. Dx; Syncope, Afib. DOI 08/08/2022-[place]. [facility] remote monitoring. Amulet placed 11/16/23 Routine [...] CV CARDIAC SERVICES PROCEDURES F inal Result documented in this encounter Visit Diagnoses Diagnosis Status post placement of implantable loop recorder- Primary PAF (paroxysmal atrial fibrillation) ([facility]/HCC) ([facility]) Atrial fibrillation Syncope, unspecified syncope type documented in this encounter Care Teams [employer] Sales Associate Relationship Specialty Start Date End Date Gadiel Zavala MD [address] [place] [id number] PCP - General 06/13/16 Lyudmila Knox, RN Registered Nurse 04/14/17 Jennifer Escalona, RN Registered Nurse 05/10/17 documented as of this encounter
--- OUTSIDE RECORDS SUMMARY | 2024-04-17 11:48 | XMS_ITS | Encounter Summary ---
Author Organization [facility] Healthcare Address [address] [place] [address] Care Team Providers Care Home Security Professional Name Role Phone Gadiel Zavala MD Primary Care Provider [phone] [phone] Lyudmila Knox RN Unavailable Unavailable Jennifer Escalona RN Unavailable Agustina vailable Reason for Referral * MRI/CAT/PET Scan (Routine) - Closed Specialty Diagnoses / Procedures Referred By Contac t Referred To Contact Radiology Diagnoses PAF (paroxysmal atrial fibrillation) (CMS/HCC) (HCC) Frequent falls Contraindication to anticoagulation therapy Procedures CT Heart Morphology W Contrast Emilio Leggett MD [address] [address] Phone: tel: fax: [address] [phone] Referral ID Status Reason Start Date Expiration Date Visits Re quested Visits Authorized [id number] Closed 09/26/2023 10/25/2024 1 1 Reason for Visit * MRI/CAT/PET Scan (Routine) - Closed Specialty Diagnoses / Procedures Referred By Contac t Referred To Contact Radiology Diagnoses PAF (paroxysmal atrial fibrillation) (CMS/HCC) (HCC) Frequent falls Contraindication to anticoagulation therapy Procedures CT Heart Morphology W Contrast Emilio Leggett MD [address] [facility] [address] [place] [address] Phone: tel: fax: [address] [phone] Referral ID Status Reason Start Date Expiration Date Visits Re quested Visits Authorized [id number] Closed 09/26/2023 10/25/2024 1 1 Encounter Details Date Type Department Care Team (Latest Contact Info) Description 10/09/2023 12:09 PM CDT - 10/09/2023 11:59 PM CDT Hospital Encounter [facility] Imaging and Radiology [address] [place] [address] [phone] PAF (paroxysmal atrial fibrillation) (CMS/HCC) (HCC); Frequent falls; Contraindication to anticoagulation therapy Discharge Disposition: Discharge to home or self care Social History Tobacco Use Types Packs/Day Years Used Date Smoking Tobacco: Former Cigarettes Q uit: 04/14/1987 Smokeless Tobacco: Never Alcohol Use Standard Drinks/Week Comments Yes 0 (1 standard drink = 0.6 oz pur e alcohol) social Personal Safety Answer Date Recorded Getting School Help Needed Not on file 04/14 Comments No Sex and Gender Information Value Date Recorded Sex Assigned at Not on file Legal 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 Gender Identity Not on file Sexual Orientation [...] (20 mg total) by mouth daily 03/31/2017 eszopiclone (LUNESTA) tabletIndications: Insomnia Take 1 tablet (3 mg total) by mouth nightly 1 04/25/2017 levothyroxine (SYNTHROID, LEVOTHROID) 50 mcg tablet Take [...] 1 capsule (400 Units total) by mouth diphenhydrAMINE (BENADRYL) 50 mg capsule Take 1 capsule (50 mg total) by mouth once for 1 dose Take 1 capsule (50 mg total) by mouth once for 1 dose 1 hour prior to your procedure at 1 p.m 1 capsule 09/26/2023 4 losartan (COZAAR) 25 mg tabletIndications: Essential hypertension Take 1 tablet by mouth once daily 90 tablet 10/09/2023 4 oxybutynin (DITROPAN) 5 mg tablet Take 1 tablet (5 mg total) by mouth 2 (two) times a day 4 documented as of this encounter Discharge Disposition Disposition Code Departure Means Destination Discharge to home or self care documented in this encounter Plan of Treatment [...] Procedure Name Priority Date/Time Associated Diagnosis Comments CT HEART MORPHOLOGY W CONTRAST Schedule Routine, Read Routine (OP Routine) 10/09/2023 12:48 PM CDT PAF (paroxysmal atrial fibrillation) (CMS/HCC) (HCC) Frequent falls Contraindication to anticoagulation therapy documented in this encounter Results * CT Heart Morphology W Contrast (10/09/2023 12:48 PM CDT) Anatomical Region Laterality Modality Chest N/A Computed Tomogra phy 10/09/2023 4:56 PM CDT Impressions 10/09/2023 5:33 PM CDT 1. ??Left atrial appendage measurements for placement of occlusion device as described. 2. ??No evidence of left atrial appendage thrombus. Dictated by: Christie Donohue M.D. The radiology attending physician has personally reviewed this study, and had reviewed and/or edited this written report and agrees with it. Electronically signed by: Agnes Merchant M.D. Narrative 10/09/2023 5:33 PM CDT EXAMINATION: CT HEART MORPHOLOGY W CONTRAST HISTORY: Paroxysmal atrial fibrillation. Measurements in preparation for left atrial appendage occlusion device placement. TECHNIQUE: Heart CT performed during administration of 100 mL of Optiray 350, intravenously per pulmonary vein protocol. Images were transferred to an independent workstation for additional 3D post-processing. COMPARISON: None FINDINGS: Left atrium measurements: * ??Depth: 55 mm * ??Length: 49 mm * ??Diameter (during atrial diastole): 64 mm Left atrial appendage: * ??Ostium measurements: Area 404 cm2; circumference 73 cm; 25 mm length x 21 mm width * ??Shape: Cauliflower There is no evidence of left atrial appendage thrombus. Interatrial septum measures 2 mm thick at the fossa ovalis and is free of device or thrombus. Esophagus lies immediately posterior to the left inferior pulmonary vein. Other findings: Mild bibasilar atelectasis. Solid 3 mm nodule in the periphery of the left upper lobe (series 8, image 30). No pleural effusion or pneumothorax. Normal heart size without pericardial effusion. No significant coronary artery disease. Mild calcified atherosclerosis of the thoracic aorta. 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 Loop recorder in the left anterior chest wall. Normal thyroid. No suspicious thoracic lymphadenopathy. Small hiatal hernia. No acute abnormality in the imaged upper abdomen. No suspicious osseous lesion. Procedure Note Agnes Merchant MD - 10/09/2023 EXAMINATION: CT HEART MORPHOLOGY W CONTRAST HISTORY: Paroxysmal atrial fibrillation. Measurements in preparation for left atrial appendage occlusion device placement. TECHNIQUE: Heart CT performed during administration of 100 mL of Optiray 350, intravenously per pulmonary vein protocol. Images were transferred to an independent workstation for additional 3D post-processing. COMPARISON: None FINDINGS: Left atrium measurements: * Depth: 55 [...] posterior to the left inferior pulmonary vein. Other findings: Mild bibasilar atelectasis. Solid 3 mm nodule in the periphery of the left upper lobe (series 8, image 30). No pleural effusion or pneumothorax. Normal heart size without pericardial effusion. No significant coronary artery disease. Mild calcified atherosclerosis of the thoracic aorta. 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 Loop recorder in the left anterior chest wall. Normal thyroid. No suspicious thoracic lymphadenopathy. Small hiatal hernia. No acute abnormality in the imaged upper abdomen. No suspicious osseous lesion. IMPRESSION: 1. Left atrial appendage measurements for placement of occlusion device as described. 2. No evidence of left atrial appendage thrombus. Dictated by: Christie Donohue M.D. The radiology attending physician has personally reviewed this study, and had reviewed and/or edited this written report and agrees with it. Electronically signed by: Agnes Merchant M.D. Emilio Leggett MD IMG CT PROCEDURES Final Result documented in this encounter Visit Diagnoses Diagnosis PAF (paroxysmal atrial fibrillation) (CMS/HCC) (HCC) Atrial fibrillation Frequent falls Contraindication to anticoagulation therapy documented in this encounter Administered Medications Inactive Administered Medications - up to 3 most recent administrations Medication Order MAR Action Action Date Dose Rate Site ioversoL (OPTIRAY 350) syringe 100 mL 100 mL, intravenous, Once in imaging, contrast, Starting on 10/09/23 at 1248, For 1 dose Contrast Given 10/09/2023 12:56 PM CDT 100 mL documented in this encounter Orders Medications Ordered That Noel ht Not Have Been Administered Count Last Ordered Date First Ordered Date ioversoL (OPTIRAY 350) syringe 100 mL 1 01/2024 documented in this encounter Care Teams Home Security Professional Relationship Specialty Start Date End Date Gadiel Zavala MD [address] [address] PCP - General 06/13/16 Lyudmila Knox, RN Registered Nurse 04/14/17 Jennifer Escalona, RN Registered Nurse 05/10/17 documented as of this encounter
--- OUTSIDE RECORDS SUMMARY | 2024-04-17 11:48 | XMS_ITS | Encounter Summary ---
Author Organization [facility] Healthcare Address [address] [place] [address] Care Team Providers Care Fisher Terrapin Name Role Phone Gadiel Zavala MD Primary Care Provider [phone] [phone] Lyudmila Knox RN Unavailable Unavailable Jennifer Escalona RN Unavailable Agustina vailable Reason for Visit * Reason Comments Follow-up Atrial Fibrillation Encounter Details Date Type Department Care Team (Latest Contact Info) Description 01/02/2024 10:15 AM CDT Office Visit [facility] Cardiology [address] [place] [phone] Emilio Leggett MD [address] [place] [id number] PAF (paroxysmal atrial fibrillation) (CMS/HCC) (HCC) (Primary Dx); Presence of Amulet left atrial appendage closure device; Contraindication to anticoagulation therapy; Frequent falls; Essential hypertension Social History Tobacco Use Types Packs/Day Years Used Date Smoking Tobacco: Former Cigarettes Q uit: 04/14/1987 Smokeless Tobacco: Never Tobacco Cessation:Counseling Given: Not Answered Alcohol Use Standard Drinks/Week Comments Yes 0 (1 standard drink = 0.6 oz pur e alcohol) social [facility] Utilities Answer Date Recorded In the past 12 months has e electric, gas, oil, or water company [...] often do you attend chur ch or latter day services? Never 11/17/2023 Do you belong to any clubs o r organizations such as yazidi groups, unions, fraternal or athletic groups, or [...] any time in the past 12 m [facility], were you homeless or living in a halfway (including now)? No 11/17/2023 Personal Safety Answer Date Recorded Have you ever been in or are you currently in a harmful physical or emotional relationship or is someone making you feel afraid or unsafe? 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 Gender Identity Not on file Sexual Orientation Not on file documented as of this encounter Last Filed Vital Signs Vital Sign Reading Time Taken Comments Blood Pressure 128/82 01/02/2024 10:04 AM CDT Pulse 66 01/02/2024 10:04 AM CDT Temperature - - Respiratory Rate 14 01/02/2024 10:04 AM CDT Oxygen Saturation 98% 01/02/2024 10:04 AM CDT Inhaled Oxygen Concentration - - Weight 62.6 kg (138 lb) 01/02/2024 10:04 AM CDT Height 160 cm (5' 3 ) 01/02/2024 10:04 AM CDT Body Mass Index 24.45 01/02/2024 10:04 AM CDT documented in this encounter Progress Notes * Emilio Leggett MD - 01/02/2024 10:15 AM CDT [facility] C[facility] 01/02/2024 CHIEF COMPLAINT Chief Complaint Patient presents with Follow-up Atrial Fibrillation HPI Kaitlin Bond is a 73 y.o. female with paroxysmal atrial fibrillation, hypertension, hypothyroidism on thyroxine replacement, history of frequent falls, history of CA colon status post surgery. 09/26/2023 initial evaluation-patient referred by Dr. Perez for evaluation for left atrial appendage closure. She is accompanied by her . Patient states that she was diagnosed with atrial fibrillation postoperatively in SeptemberOctober 2021 [facility] after she had colon cancer surgery. She states that her colon cancer is in remission. Subsequently, patient had implantable nuclear monitoring technician which showed paroxysmal atrial fibrillation. She has not been on anticoagulation due to frequent falls. Patient states that she falls frequently, sometimes multiple times a day, and has had dozens of falls in last few months. She uses walkerfor ambulation. She gives history of back surgery and neuropathy which is causing gait instability. 01/02/2024-patient is here for the follow-up visit after recent left atrial appendage closure. She is accompanied by . She has occasional palpitations without dizziness or syncope. Limited mobility, uses walker for ambulation. Compliant with dual antiplatelet therapy, no overt bleeding. MEDICAL HISTORY she has a past medical history of Anemia, Arthritis, Atrial fibrillation (CMS/HCC) ([facility]), Awarenessunder anesthesia, Cancer (CMS/HCC) ([facility]), Cataract, Chronic back pain, Depression, GERD (gastroesophageal reflux disease), migraines, Hyperlipidemia, Hypertension, Hypothyroidism, Neuropathy (CMS/HCC), Peptic ulceration, PONV (postoperative nausea and vomiting), and Vision blurred. She has no past medical history of Malignant hyperthermia, Motion sickness, or Sleep apnea. she has a past surgical history that includes Anterior fusion cervical spine; Hysterectomy; Spine surgery; Colon surgery (07/2021); Cataract extraction, bilateral; Colonoscopy; and Eye surgery (Bilateral). she Allergies Allergen Reactions Gadolinium-Containing Contrast Media Hives and Urticaria Dye Hives Was getting MRI and developed hives while dye infusion. Gadopentetate Dimeglumine Hives Reaction: Hives, Green Dye Unknown Was getting MRI and developed hives while dye infusion. Adhesive Tape-Silicones Rash Reaction: RASH Aspirin Dizziness Dizziness/Light Headed Latex Other (See comments) Pt states no. Is fine with gloves. Only allergy is to adhesive. Current Outpatient Medications Medication Sig Dispense Refill acetaminophen (TYLENOL) 325 mg tablet Take 2 tablets (650 mg total) by mouth every 4 (four) hours as needed aspirin (Adult Low Dose Aspirin) 81 mg enteric coated tablet Take 1 tablet (81 mg total) by mouth daily atorvastatin (LIPITOR) 20 mg tablet Take 1 tablet (20 mg total) by mouth daily clopidogreL (PLAVIX) 75 mg tablet Take 1 tablet (75 mg total) by mouth daily 30 tablet 11 coffee xt/phosphatidyl serine (NEURIVA ORIGINAL ORAL) Take 1 capsule by mouth daily DULoxetine DR (CYMBALTA) 60 mg capsule Take 1 capsule (60 mg total) by mouth 2 (two) times a day eszopiclone (LUNESTA) tablet Take 1 tablet (3 mg total) by mouth nightly 1 ferrous sulfate 325 mg (65 mg of elemental iron) tablet Take 1 tablet (65 mg of elemental iron total) by mouth daily with breakfast levothyroxine (SYNTHROID, LEVOTHROID) 50 mcg tablet Take 1 tablet (50 mcg total) by mouth daily losartan (COZAAR) 25 mg tablet Take 1 tablet by mouth once daily 90 tablet 0 metoprolol XL (TOPROL-XL) 100 mg 24 hr tablet Take 1 tablet (100 mg total) by mouth daily TAKE IN COMBINATION WITH 25 MG TABLET metoprolol XL (TOPROL-XL) 25 mg extended release tablet omeprazole (PriLOSEC) 40 mg capsule Take 1 capsule (40 mg total) by mouth daily Two tablets daily vitamin E 400 unit capsule Take 1 capsule (400 Units total) by mouth No current facility-administered medications for this visit. she family history includes Hypertension in her mother; Leukemia in her father. she reports that she quit smoking about 36 years ago. Her smoking use included cigarettes. She has never used smokeless tobacco. She reports that she does not use drugs. No alcohol history on file. Denies tobacco, alcohol, illicit drugs. Lives with the . REVIEW OF SYSTEMS General ROS: Positive for fatigue Psychological ROS: negative for - anxiety, depression Ophthalmic ROS: negative for - loss of vision ENT ROS: negative for - sore throat, epistaxis, headaches, nasal congestion Allergy and Immunology ROS: negative for - hives, postnasal drip Hematological and Lymphatic ROS: negative for - overt bleeding problems, bruising Respiratory ROS: negative for - cough, hemoptysis, wheezing Cardiovascular ROS: negative for - chest pain; positive for occasional palpitations Gastrointestinal ROS: negative for - abdominal pain, nausea/vomiting, hematemesis, blood in the stool Endocrine ROS: negative for - hot flashes, polydipsia/polyuria Musculoskeletal ROS: Positive for gait instability Neurological ROS: Positive for - gait disturbance, weakness Dermatological ROS: negative for pruritus, rash LABS AND OTHER DIAGNOSTIC TESTS REVIEWED Lab Results Component Value Date WBC 7.4 11/17/2023 HGB 12.2 11/17/2023 HCT 36.7 11/17/2023 MCV 90.0 11/17/2023 No lab exists for component: LABALBU Lab Results Component Value Date WBC 7.4 11/17/2023 HGB 12.2 11/17/2023 HCT 36.7 11/17/2023 MCV 90.0 11/17/2023 No results found for: CHOL No results found for: HDL No results found for: LDL ] No results found for: TRIG Lab Results Component Value Date POCCHOL 214 09/26/2023 POCHDL 73 09/26/2023 POCTRIG 94 09/26/2023 POCLDL 123 09/26/2023 POCNONHDL 141 09/26/2023 POCCHLPL 214 09/26/2023 Echo-normal LV size, mild LVH, EF more than 70%. 10/16/2021; Dr. Perez, [facility] Thirty day event monitor-Predominant underlying rhythm is sinus rhythm, average heart rate 66 beatsper minute. Occasional PACs and PVCs. No atrial fibrillation or flutter was noted. No symptoms reported. 03/29/2022-04/30/2022 [employer] implantable nuclear monitoring technician---10 Tachy: ECGs show AF w/ RVR; max v rates between 188-222 bpm. 5 AF: ECGs show AF w/ RVR(longest: 1 hour 31 minutes 16 seconds; last: 05-Aug-2023). 09/07/2023 Lipids-total cholesterol 214, HDL 73, triglycerides 94, LDL 123, glucose 91. 09/26/2023 EKG-sinus rhythm, normal intervals. 09/26/2023 LAAO-Successful implantation of 22 Amplatzer Amulet left atrial appendage closure device. 11/16/2023 Echo-Limited echo with Doppler. Normal left ventricular size. [...] Normal pericardium with no significant pericardial effusion. 11/17/2023 PHYSICAL EXAM Vitals BP 128/82 (BP Location: Right arm, Patient Position: Sitting) Pulse 66 Resp 14 Ht 160 cm (5' 3 ) Wt 62.6 kg (138 lb) SpO2 98% BMI 24.45 kg/m?? General appearance - alert, no distress, oriented [...] rashes (on the exposed areas), no cyanosis ASSESSMENT Diagnoses and all orders for this visit: PAF (paroxysmal atrial fibrillation) ([facility]) ([facility]) (Primary) Presence of Amulet left atrial appendage closure device Contraindication to anticoagulation therapy Frequent falls Essential hypertension PLAN/RECOMMENDATIONS 73 y.o. female with paroxysmal atrial fibrillation s/p left atrial appendage closure using 22 Amplatzer Amulet closure device on 11/16/2023, hypertension, hypothyroidism on thyroxine replacement, history of frequent falls, history of CA colon status post surgery. -patient has PAF, and has had numerous falls due to gait instability from neuropathy. She was previously not on anticoagulation due to frequent falls. She is now status post Successful implantation of 22 Amplatzer Amulet left atrial appendage closure device on 11/16/2023. Dual antiplatelet therapy with aspirin and clopidogrel till 05/18/2024; then single antiplatelet treatment with low- dose aspirin. Follow-up transesophageal echocardiogram will be performed to check for any device related thrombosis or any significant mateo device leak -blood pressure is well controlled with losartan, metoprolol succinate. -levothyroxine for hypothyroidism, management as per PCP. -heart healthy diet, fall precautions. - follow up in about 8-9 months or sooner if necessary. Emilio Leggett MD 01/02/24 Voice recognition software was used to complete this document, therefore, strain technician variances may occur. documented in this encounter Plan of Treatment Not on file documented as of this encounter Goals Goal Patient Goal Type Associated Problems Recent Progress Patient-Stated? Author Increase physical activity Exercise Lyudmila Shah, LOGNA Note: She is doing arm and leg exercises from Pt. She was in rehab after neck surgery for 2 weeks in March 2017 documented as of this encounter Visit Diagnoses Diagnosis PAF (paroxysmal atrial fibrillation) (CMS/HCC) (HCC)- Primary Atrial fibrillation Presence of Amulet left atrial appendage closure device Contraindication to anticoagulation therapy Frequent falls Essential hypertension Unspecified essential hypertension documented in this encounter Care Teams Fisher Terrapin Relationship Specialty Start Date End Date Gadiel Zavala MD [address] [address] PCP - General 06/13/16 Lyudmila Knox, RN Registered Nurse 04/14/17 Jennifer Escalona, RN Registered Nurse 05/10/17 documented as of this encounter
--- OUTSIDE RECORDS SUMMARY | 2024-04-17 11:48 | XMS_ITS | Encounter Summary ---
Author Organization [facility] Healthcare Address [address] [place] [address] Care Team Providers Care Machines Technician Name Role Phone Gadiel Zavala MD Primary Care Provider [phone] Lyudmila Knox RN Unavailable Unavailable Jennifer Escalona RN Unavailable Agustina vailable Encounter Details Date Type Department Care Team (Late st Contact Info) Description 01/30/2024 Telephone [facility] Pre Anesthesia Testing [id number] [place] [address] Melly Vazquez, LOGAN Social History Tobacco Use Types Packs/Day Years Used Date Smoking Tobacco: Former Cigarettes Q uit: 04/14/1987 Smokeless Tobacco: Never Alcohol Use Standard Drinks/Week Comments Yes 0 (1 standard drink = 0.6 oz pur e alcohol) social [facility] Utilities Answer Date Recorded In the past 12 months has [employer], gas, oil, or water Knowable threatened to shut off services in your [...] often do you attend chur ch or scientology services? Never 11/17/2023 Do you belong to any clubs o r organizations such as muslim groups, unions, fraternal or athletic groups, or [...] any time in the past 12 m [facility], were you homeless or living in a skilled nursing (including now)? No 11/17/2023 Personal Safety Answer Date Recorded Have you ever been in or are you currently in a harmful physical or emotional relationship or is someone making you feel afraid or unsafe? 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 Reminded of procedure on 02/08/2024 with arrival time of 9:30 A.M. at [facility]. [email or web address], Rx per MD. Patient states she has received instructions on hermedications. Patient instructed if she has any questions to call her multi operation forming machine setter. Patient verbalized understanding. documented in this encounter Plan of Treatment Not on file documented as of this encounter Goals Goal Patient Goal Type Associated Problems Recent Progress Patient-Stated? Author Increase physical activity Exercise No Lyudmila Knox, RN Note: She is doing arm and leg exercises from Pt. She was in rehab after neck surgery for 2 weeks in March 2017 documented as of this encounter Visit Diagnoses Not on filedocumented in this encounter Care Teams Machines Technician Relationship Specialty Start Date End Date Gadiel Zavala MD [address] [place] [id number] PCP - General 06/13/16 Lyudmila Knox, RN Registered Nurse 04/14/17 Jennifer Escalona, RN Registered Nurse 05/10/17 documented as of this encounter
--- OUTSIDE RECORDS SUMMARY | 2024-04-17 11:48 | XMS_ITS | Encounter Summary ---
Author Organization [facility] Healthcare Address [address] [place] [address] Care Team Providers Care Squeegee Tender Name Role Phone Gadiel Zavala MD Primary Care Provider [phone] Lyudmila Knox RN Unavailable Unavailable Jennifer Escalona RN Unavailable Agustina vailable Reason for Visit * Auth/Cert Specialty Diagnoses / Procedures Referred By Delores t Referred To Contact Diagnoses Paroxysmal atrial fibrillation (CMS/HCC) (HCC) Paroxysmal atrial fibrillation (CMS/HCC) (HCC) [I48.0] Procedures PERC MAURA CLOSE W/IMPLANT [id number] Referral ID Status Reason Start Date Expiration Date Visits Re quested Visits Authorized [id number] 1 1 Encounter Details Date Type Department Care Team (Latest Contact Info) Description 11/16/2023 10:59 AM CDT - 11/16/2023 11:59 PM CDT Hospital Encounter [facility] Cardiac Catheterization Lab [address] [place] [address] Discharge Disposition: Discharge to home or self care Social History Tobacco Use Types Packs/Day Years Used Date Smoking Tobacco: Former Cigarettes Q uit: 04/14/1987 Smokeless Tobacco: Never Alcohol Use Standard Drinks/Week Comments Yes 0 (1 standard drink = 0.6 oz pur e alcohol) social [facility] Utilities Answer Date Recorded In the past [...] often do you attend chur ch or oriental orthodox services? Never 11/17/2023 Do you belong to any clubs o r organizations such as gnosticist groups, unions, fraternal or athletic groups, or [...] any time in the past 12 m [facility], were you homeless or living in a care home (including now)? No 11/17/2023 Personal Safety Answer Date Recorded Have you ever been in or are you currently in a harmful physical or emotional relationship or is someone making you feel afraid or unsafe? 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 Gender Identity Not on file Sexual Orientation [...] by mouth daily 30 tablet 11 11/18/2023 losartan (COZAAR) 25 mg tabletIndications: Essential hypertension Take 1 tablet by mouth once daily 90 tablet 10/09/2023 4 documented as of this encounter Discharge Disposition Disposition Code Departure Means Destination Discharge to home or self care documented in this encounter Plan of Treatment Pending Results Name Type Priority Associated Diagnoses Date/Time Transesophageal Echo (HUMBERTO) W Doppler/CF Echocardiography Routine 11/16/2023 1 2:58 PM CDT documented as of this encounter Goals Goal Patient Goal Type Associated Problems Recent Progress Patient-Stated? Author Increase physical activity Exercise No Lyudmila Knox, RN Note: She is doing arm and leg exercises from Pt. She was in rehab after neck surgery for 2 weeks in March 2017 documented as of this encounter Visit Diagnoses Not on filedocumented in this encounter Care Teams Squeegee Tender Relationship Specialty Start Date End Date Gadiel Zavala MD [address] [address] PCP - General 06/13/16 Lyudmila Knox, RN Registered Nurse 04/14/17 Jennifer Escalona, LOGAN Registered Nurse 05/10/17 documented as of this encounter
--- OUTSIDE RECORDS SUMMARY | 2024-04-17 11:48 | XMS_ITS | Encounter Summary ---
Author Organization [facility] Healthcare Address [address] [place] [address] Care Team Providers Care Rough Rounder Machine Name Role Phone Gadiel aZvala MD Primary Care Provider [phone] Lyudmila Knox RN Unavailable Unavailable Jennifer Escalona RN Unavailable Agustina vailable Reason for Visit * Cardiology (Routine) - Closed Specialty Diagnoses / Procedures Referred By Delores t Referred To Contact Diagnoses PAF (paroxysmal atrial fibrillation) (CMS/HCC) (HCC) Procedures DEVICE CHECK - REMOTE Emilio Leggett MD [address] [place] [address] Phone: tel: fax: Referral ID Status Reason Start Date Expiration Date Visits Re quested Visits Authorized [id number] Closed 10/13/2023 04/13/2025 1 1 Encounter Details Date Type Department Care Team (Latest Contact Info) Description 12/04/2023 10:15 AM CDT Ancillary Procedure [facility] Cardiology [address] [place] [address] [place] [phone] Status post placement of implantable loop recorder (Primary Dx); PAF (paroxysmal atrial fibrillation) (CMS/HCC) (HCC); Syncope and collapse Social History Tobacco Use Types Packs/Day Years Used Date Smoking Tobacco: Former Cigarettes Q uit: 04/14/1987 Smokeless Tobacco: Never Alcohol Use Standard Drinks/Week Comments Yes 0 (1 standard drink = 0.6 oz pur e alcohol) social [facility] Utilities Answer Date Recorded In the past [...] often do you attend chur ch or sabianism services? Never 11/17/2023 Do you belong to any clubs o r organizations such as congregational groups, unions, fraternal or athletic groups, or [...] were you homeless or living in a [facility] (including now)? No 11/17/2023 Personal Safety Answer Date Recorded Have you ever been in or are you currently in a harmful physical or emotional relationship or is someone making you feel afraid or unsafe? 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 Author Increase physical activity Exercise No Lyudmila Knox RN Note: She is doing arm and leg exercises from Pt. She was in rehab after neck surgery for 2 weeks in March 2017 documented as of this encounter Procedures Procedure Name Priority Date/Time Associated Diagnosis Comments DEVICE CHECK - REMOTE Routine 12/04/2023 12:00 PM CDT PAF (paroxysmal atrial fibrillation) (CMS/HCC) (HCC) documented in this encounter Results * DEVICE CHECK - REMOTE (12/04/2023 12:00 PM CDT) Anatomical Region Laterality Modality Other Narrative 12/25/2023 2:19 PM CDT Medtronic LNQ22 Loop Recorder. Dx; Syncope, Afib. DOI 08/08/2022-[place]. [facility] remote monitoring. Amulet placed 11/16/23 Routine ILR remote. Normal device function. Battery function-Ok. Presenting rhythm: NSR Medications: Plavix, ASA, Toprol XL, LAAO No auto or patient recorded episodes noted. Counters since last scheduled transmission on 10/23/23. --41Tachy - IEGM'S demonstrate Afib with RVR. Longest episode was 24 minutes ??in duration, and the fastest episode was 240 bpm. 1 episode had 4 beats of NSVT, and two episodes had couplet PVC's - 15 AF - IEGM'S demonstrate Afib. Longest episode was 2.5 hours long. AF burden 1.1% See scanned report. [facility] remote f/u 01/22/24. Adria Camarena, RN us Emilio Leggett MD CV CARDIAC SERVICES PROCEDURES F inal Result documented in this encounter Visit Diagnoses Diagnosis Status post placement of implantable loop recorder- Primary PAF (paroxysmal atrial fibrillation) (CMS/HCC) ([facility]) Atrial fibrillation Syncope and collapse documented in this encounter Care Teams Rough Rounder Machine Relationship Specialty Start Date End Date Gadiel Zavala MD [address] [phone] PCP - General 06/13/16 Lyudmila Knox, RN Registered Nurse 04/14/17 Jennifer Escalona, RN Registered Nurse 05/10/17 documented as of this encounter
--- OUTSIDE RECORDS SUMMARY | 2024-04-17 11:48 | XMS_ITS | Encounter Summary ---
Author Organization [facility] Address [address] [place] [address] Care Team Providers Care Incinerator Plant Supervisor Name Role Phone Gadiel Zavala MD Primary Care Provider [phone] Lyudmila Knox RN Unavailable Unavailable Jennifer Escalona RN Unavailable Agustina vailable Reason for Referral * Cardiology (Routine) - Authorized Specialty Diagnoses / Procedures Referred By Contac t Referred To Contact Cardiology Diagnoses PAF (paroxysmal atrial fibrillation) (CMS/HCC) (HCC) Procedures DEVICE CHECK - IN OFFICE Emilio Leggett MD [address] [address] Phone: tel: fax: [facility] Referral ID Status Reason Start Date Expiration Date V isits Requested Visits Authorized [id number] Authorized 10/13/2023 11/11/2024 1 1 * Cardiology (Routine) - Authorized Specialty Diagnoses / Procedures Referred By Contac t Referred To Contact Cardiology Diagnoses PAF (paroxysmal atrial fibrillation) (CMS/HCC) (HCC) Procedures DEVICE CHECK - REMOTE Emilio Leggett MD [address] [facility] [address] [place] [address] Phone: tel: fax: [facility] Referral ID Status Reason Start Date Expiration Date V isits Requested Visits Authorized [id number] Authorized 10/13/2023 04/13/2025 1 1 * Cardiology (Routine) - Authorized Specialty Diagnoses / Procedures Referred By Contac t Referred To Contact Cardiology Diagnoses PAF (paroxysmal atrial fibrillation) (CMS/HCC) (HCC) Procedures DEVICE CHECK - IN OFFICE Emilio Leggett MD [address] [address] Phone: tel: fax: [facility] Referral ID Status Reason Start Date Expiration Date V isits Requested Visits Authorized Authorized 10/13/2023 11/11/2024 1 1 * Cardiology (Routine) - Authorized Specialty Diagnoses / Procedures Referred By Contac t Referred To Contact Cardiology Diagnoses PAF (paroxysmal atrial fibrillation) (CMS/HCC) (HCC) Procedures DEVICE CHECK - REMOTE Emilio Leggett MD [address] [address] Phone: tel: fax: [facility] Medical [facility] Referral ID Status Reason Start Date Expiration Date V isits Requested Visits Authorized Authorized 10/13/2023 04/13/2025 1 1 * Cardiology (Routine) - Closed Specialty Diagnoses / Procedures Referred By Contac t Referred To Contact Cardiology Diagnoses PAF (paroxysmal atrial fibrillation) (CMS/HCC) (HCC) Procedures DEVICE CHECK - REMOTE Emilio Leggett MD [address] [address] Phone: tel: fax: [facility] Referral ID Status Reason Start Date Expiration Date Visits Re quested Visits Authorized Closed 10/13/2023 04/13/2025 1 1 * Cardiology (Routine) - Closed Specialty Diagnoses / Procedures Referred By Contac t Referred To Contact Diagnoses PAF (paroxysmal atrial fibrillation) (CMS/HCC) (HCC) Procedures DEVICE CHECK - REMOTE Emilio Leggett MD [address] [address] Phone: tel: fax: Referral ID Status Reason Start Date Expiration Date Visits Re quested Visits Authorized Closed 10/13/2023 04/13/2025 1 1 * Cardiology (Routine) - Closed Specialty Diagnoses / Procedures Referred By Contmarianela t Referred To Contact Diagnoses PAF (paroxysmal atrial fibrillation) (CMS/HCC) (HCC) Procedures DEVICE CHECK - REMOTE Emilio Leggett MD [address] [address] Phone: tel: fax: Referral ID Status Reason Start Date Expiration Date Visits Re quested Visits Authorized [id number] Closed 10/13/2023 04/13/2025 1 1 Encounter Details Date Type Department Care Team (Late st Contact Info) Description 10/13/2023 Orders Only [facility] Cardiology [address] [place] [phone] Emilio Leggett MD [address] [address] PAF (paroxysmal atrial fibrillation) (CMS/HCC) (HCC) (Primary Dx) Social History Tobacco Use Types [...] on file 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 Gender Identity Not on file Sexual Orientation Not on file documented as of this encounter Plan of Treatment Scheduled Orders Name Type Priority Associated Diagnoses Orde r Schedule DEVICE CHECK - REMOTE Cardiac Services Routine PAF (paroxysmal atrial fibrillation) ([facility]) ([facility]) Expected: 02/12/2024, Expires: 04/30/2030 DEVICE CHECK - IN OFFICE Cardiac Services Routine PAF (paroxysmal atrial fibrillation) ([facility]) ([facility]) Expected: 02/26/2024, Expires: 04/30/2030 DEVICE CHECK - REMOTE Cardiac Services Routine PAF (paroxysmal atrial fibrillation) ([facility]) ([facility]) Expected: 05/06/2024, Expires: 04/30/2030 DEVICE CHECK - IN OFFICE Cardiac Services Routine PAF (paroxysmal atrial fibrillation) ([facility]) ([facility]) Expected: 10/28/2024, Expires: 04/30/2031 documented as of this encounter Goals Goal Patient Goal Type Associated Problems Recent Progress Patient-Stated? Author Increase physical activity Exercise Lyudmila Shah, LOGAN Note: She is doing arm and leg exercises from Pt. She was in rehab after neck surgery for 2 weeks in March 2017 documented as of this encounter Results * DEVICE CHECK - REMOTE (03/05/2024 11:24 AM FLOOR COVERER) Anatomical Region Laterality Modality Other Narrative 03/13/2024 8:08 AM FLOOR COVERER [employer] LNQ22 Loop Recorder. Dx; Syncope, Afib. DOI 08/08/2022-[place]. [facility]link remote monitoring. 04/14/23-WAD note: Anticoagulation contraindication d/t frequent falls and h/o head injury. ILR interrogations for more definitive documentation of Afib [place] and justification for LAAO device implant. Routine [...] report. [facility] remote f/u 04/15/2024. Annie Lew, LOGAN Emilio Leggett MD CV CARDIAC SERVICES PROCEDURES F inal Result * DEVICE CHECK - REMOTE (01/22/2024 1:27 PM CDT) Anatomical Region Laterality Modality Other Narrative 01/23/2024 2:25 PM CDT [employer]tronic LNQ22 Loop Recorder. Dx; Syncope, Afib. DOI 08/08/2022-[place]. [facility]link remote monitoring. Amulet placed 11/16/23 Routine [...] scanned report. [facility] remote f/u 03/04/2024. Adria Camarena RN Emilio Leggett MD CV CARDIAC SERVICES PROCEDURES F inal Result * DEVICE CHECK - REMOTE (12/04/2023 12:00 PM CDT) Anatomical Region Laterality Modality Other Narrative 12/25/2023 2:19 PM CDT [employer]onic LNQ22 Loop Recorder. Dx; Syncope, Afib. DOI 08/08/2022-[place]. [facility]link remote monitoring. Amulet placed 11/16/23 Routine [...] report. [facility] remote f/u 01/22/24. Adria Camarena, LOGAN us Emilio Leggett MD CV CARDIAC SERVICES PROCEDURES F inal Result documented in this encounter Visit Diagnoses Diagnosis PAF (paroxysmal atrial fibrillation) ([facility]) ([facility])- Primary Atrial fibrillation Status post placement of implantable loop recorder- Primary PAF (paroxysmal atrial fibrillation) ([facility]) ([facility]) Atrial fibrillation Syncope and collapse Status post placement of implantable loop recorder- Primary PAF (paroxysmal atrial fibrillation) ([facility]) ([facility]) Atrial fibrillation Syncope, unspecified syncope type Status post placement of implantable loop recorder- Primary PAF (paroxysmal atrial fibrillation) ([facility]) ([facility]) Atrial fibrillation Syncope and collapse documented in this encounter Care Teams Incinerator Plant Supervisor Relationship Specialty Start Date End Date Gadiel Zavala MD [address] [phone] PCP - General 06/13/16 Lyudmila Knox, RN Registered Nurse 04/14/17 Jennifer Escalona, LOGAN Registered Nurse 05/10/17 documented as of this encounter
--- OUTSIDE RECORDS SUMMARY | 2024-04-17 11:48 | XMS_ITS | Encounter Summary ---
Author Organization [facility] Healthcare Address [address] [place] [address] Care Team Providers Care Grinder Operator Name Role Phone Gadiel Zavala MD Primary Care Provider [phone] Lyudmila Knox RN Unavailable Unavailable Jennifer Escalona RN Unavailable Agustina vailable Reason for Visit * Auth/Cert Specialty Diagnoses / Procedures Referred By Delores t Referred To Contact Diagnoses Paroxysmal atrial fibrillation (CMS/HCC) (HCC) Paroxysmal atrial fibrillation (CMS/HCC) (HCC) [I48.0] Procedures PERC MAURA CLOSE W/IMPLANT [id number] Referral ID Status Reason Start Date Expiration Date Visits Re quested Visits Authorized [id number] 1 1 Encounter Details Date Type Department Care Team (Late st Contact Info) Description 11/16/2023 11:14 AM CDT Anesthesia Event [facility] Cardiac Catheterization Lab [address] [place] [address] [place] [address] [facility] [place] [address] Cynthia Smith MD [address] [facility] [place] [address] Anesthesia Record Procedure Summary Procedure Name Responsible Anesthesiologist Anesthesia Start Time Anesthesia Stop Time PERC MAURA CLOSE W/IMPLANT [id number] Zuhair Kyle MD 11/16/23 1114 11/16/23 1321 Events Date Time Event Comment 11/16/2023 1102 1114 An Start 1114 An Start Data 1118 Start Supplemental O2 1119 An Induction The patient was reevaluated immediately before moderate or deep sedation use and before anesthesia induction. 1123 Anesthesia Ready 1313 an stop data 1321 Handoff to RN I completed my handoff to the receiving nurse during which we: 1. Patient identified 2. Responsible provider identified 3. Pertinent medical history reviewed 4. Procedure type and surgical course discussed 5. Intraoperative anesthetic management and any significant issues discussed 6. Expectations and concerns for postop period discussed 7. Questions solicited from receiving nurse 8. Patient disposition at the time of handoff: PACU 1321 An Stop Meds Name Total midazolam 1 mg fentaNYL 25 mcg propofol 20 mg propofol 800.17 mg lidocaine (CARDIAC) syringe 2 % 100 mg ceFAZolin 1,000 mg heparin 1,000 unit/ml 13,000 Units phenylephrine 100 mcg protamine 50 mg Lactated Ringer's (LR) infusion 200 mL * Agents Name O2 N2O Air * Blood No blood administrations on file. Lines, Drains, and Airways Type Details Placement Removal Peripheral IV Placement Date: 10/29 12/22; Placement Time: 0852; Catheter Size: 20 G; Orientation: Distal, Left, Posterior; Location: Forearm; Site Prep: Chlorhexidine; Technique: Anatomical landmarks; Inserted by: Susanna Helton RN; Insertion Attempts: 1; Patient Tolerance: Tolerated well; Removal Date: 11/17/23; Removal Time: 1327; Removal Reason: Discharge 11/16/23 0852 by Ina Renae RN 11/17/23 1327 by Hamida Zimmerman RN Venous Sheath Placement Date: 10/29 12/22; Placement Time: 1156; Hand Hygiene: Yes; Site Prep: Chlorhexidine; Site Prep Agent Dried: Yes; Sterile Barrier Used: Yes; Inserted by: Dr Leggett; Insertion Attempts: 1; Pt Tolerance: Tolerated well; Placement Verification: Ultrasound; Removal Date: 11/16/23; Removal Time: 1305; Cath Tip Cultured: No 11/16/23 1156 by Cindy Walsh RN 11/16/23 1305 by Cindy Walsh RN Venous Sheath Placement Date: 10/29 12/22; Placement Time: 1158; Hand Hygiene: Yes; Site Prep: Chlorhexidine; Site Prep Agent Dried: Yes; Sterile Barrier Used: Yes; Inserted by: Dr Leggett; Insertion Attempts: 1; Pt Tolerance: Tolerated well; Placement Verification: Ultrasound; Removal Date: 11/16/23; Removal Time: 1255; Cath Tip Cultured: No 11/16/23 1158 by Cindy Walsh RN 11/16/23 1255 by Cindy Walsh RN documented in this encounter Social History Tobacco Use Types Packs/Day Years Used Date Smoking Tobacco: Former Cigarettes Q uit: 04/14/1987 Smokeless Tobacco: Never Alcohol Use Standard Drinks/Week Comments Yes 0 (1 standard drink = 0.6 oz pur e alcohol) social C Utilities Answer Date Recorded In the past [...] often do you attend chur ch or yarsanism services? Never 11/17/2023 Do you belong to any clubs o r organizations such as zoroastrian groups, unions, fraternal or athletic groups, or [...] any time in the past [address] [facility], were you homeless or living in a retirement (including now)? No 11/17/2023 Personal Safety Answer Date Recorded Have you ever been in or are you currently in a harmful physical or emotional relationship or is someone making you feel afraid or unsafe? 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 Anesthesia Start: 1114 Anesthesia Stop: 1321 Procedure: PERC MAURA CLOSE W/IMPLANT [id number] Diagnosis: Paroxysmal atrial fibrillation (CMS/HCC) (HCC) (Paroxysmal atrial fibrillation (CMS/HCC) (HCC) [I48.0]) Providers: Emilio Leggett MD Responsible Provider: Zuahir Kyle MD Anesthesia Type: MAC ASA Status: 3 Anesthesia Type: MAC Last vitals BP 150/85 Pulse 67 Temp 36.4 ??C (97.5 ??F) (Tympanic) Resp 15 SpO2 99% Anesthesia Post Evaluation Patient location during evaluation: PACU Patient participation: complete - patient participated Level of consciousness: arouses bus monitor Pain score: 0 Pain management: adequate Airway patency: adequate Evidence of recall: no Cardiovascular status: acceptable Respiratory status: acceptable Hydration status: acceptable Pt is: normothermic Nausea/Vomiting status: none No notable events documented. * Anesthesia Preprocedure Evaluation - Zuhair Kyle MD - 11/07/2023 12:15 PM CDT Images from the original note were not included. Anesthesia Evaluation Kaitlin Bond is a 73 y.o. female PERC MAURA CLOSE W/IMPLANT [id number] Pre-Op Diagnosis Codes: * Paroxysmal atrial fibrillation (CMS/HCC) (HCC) [I48.0] HISTORY HPI Kaitlin Bond is a 73 yo F with PMH of HTN, HLD,anemia colon cancer, and atrial fibrillation being evaluated for a planned PERC MAURA closure implant. Pt reports hx of awareness under anesthesia and PONV (postoperative nausea and vomiting. No past medical history of Malignant hyperthermia, Motion sickness, or Sleep apnea. Past Medical History Information obtained from: patient and chart. Information obtained during: In Person Neurological + Dementia/mild cognitive impairment Pertinent negatives: seizures and CVA/stroke Cardiovascular + Hypertension + Hyperlipidemia + Atrial fibrillation/flutter (+Loop recorder) - Rhythm type: paroxysmal (multiple episodes < 7 days). Pertinent negatives: CAD ; FL and DVT/PE Respiratory Cigarette smoker: Former smoker - quit 1986. Respiratory system: negative Hepatic / Heme + History of anemia Gastrointestinal + GERD - on daily therapy. Asymptomatic. Comments: Hx of laparoscopic right hemicolectomy Renal / Renal/ system: negative Musculoskeletal/Pain + Chronic pain - neck pain, neuropathic pain and back pain. + Osteoarthritis Comments: Hx of ANTERIOR FUSION CERVICAL SPINE Endocrine / Other + Thyroid disease - hypothyroidism + Cancer history Cancer type: Colon cancer. Comments: HX of Frequent falls Functional Capacity Functional capacity: <4 METs and ambulates with assistance only Functional capacity limited by a non-cardiovascular, non-pulmonary condition. Comments: Limited by falls Review of Systems + dizziness + muscle weakness + chronic pain + numbness/tingling (LUE) + vision loss (+glasses) + chipped/loose teeth (+Missing) Pertinent negatives: SOB; chest pain; palpitations; orthopnea; pedal edema; PND; previous transfusion; bleeding problems; hard of hearing; dentures/partials and abdominal pain PAT Summary and Plans Anesthesia plan discussed: general anesthesia. Patient Active Problem List Diagnosis Date Noted Surgical complication involving both eyes, unspecified complication 10/24/2023 Visit for wound check 08/15/2022 Status post placement of implantable loop recorder 08/09/2022 Frequent falls 03/29/2022 Chronic anticoagulation 03/29/2022 Contraindication to anticoagulation therapy 03/29/2022 Other thrombophilia ([facility]) 03/29/2022 Mixed hyperlipidemia 03/29/2022 Fall 03/01/2022 Paroxysmal atrial fibrillation (CMS/HCC) ([facility]) 12/01/2021 Colon cancer (CMS/HCC) ([facility]) 09/15/2021 Consecutive esotropia 07/30/2021 Consecutive alternating esotropia 07/07/2021 Exotropia, intermittent, monocular 12/28/2020 Diplopia 12/28/2020 Spondylosis of cervical joint without myelopathy 04/14/2017 Cervical spinal stenosis 04/14/2017 Chronic midline low back pain with bilateral sciatica 04/14/2017 Lumbosacral spondylosis without myelopathy 04/14/2017 Radiculopathy, lumbosacral region 04/14/2017 Spinal stenosis of lumbar region without neurogenic claudication 04/14/2017 Lumbar post-laminectomy syndrome 04/14/2017 Somatic symptom disorder, persistent, severe, with predominant pain 02/24/2017 Cervicalgia 07/10/2016 Cervical radiculopathy 07/10/2016 Postoperative back pain 07/10/2016 Herniation of intervertebral disc of cervical region 07/10/2016 Herniated lumbar intervertebral disc 07/10/2016 Compression fracture of lumbar vertebra (HCC) 07/10/2016 Chronic pain 07/10/2016 Lumbago 07/10/2016 Lumbosacral radiculopathy 07/10/2016 Osteoarthritis of lumbosacral spine without myelopathy 07/10/2016 Pain of lower extremity 07/07/2016 Shortness of breath 07/07/2016 Weakness 07/07/2016 Ataxia 07/07/2016 Hypertension 07/07/2016 Memory impairment 07/07/2016 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 Disease of thyroid gland 07/07/2016 Constipation 07/07/2016 Arthritis 07/07/2016 Pain of hand 07/07/2016 Notalgia 07/07/2016 Past Medical History: Diagnosis Date Anemia Arthritis Atrial fibrillation ([facility]) (HCC) Awareness under anesthesia Cancer ([facility]) ([facility]) colon Cataract Chronic back pain Depression GERD (gastroesophageal reflux disease) Hx of migraines Hyperlipidemia Hypertension Hypothyroidism Neuropathy ([facility]) Peptic ulceration PONV (postoperative nausea and vomiting) Vision blurred Past Surgical History: Procedure Laterality Date ANTERIOR FUSION CERVICAL SPINE x2 CATARACT EXTRACTION, BILATERAL COLON SURGERY 07/2021 BIMEDIAL RECTUS RECESSION WITH DOWNWARD TRANSPOSITION COLONOSCOPY EYE SURGERY Bilateral x4, attempted to fix double vision (unsuccessful) HYSTERECTOMY SPINE SURGERY lumbar OB History No obstetric history on file. Allergies Allergen Reactions Gadolinium-Containing Contrast Media Hives and Urticaria Dye Hives Was getting MRI and developed hives while dye infusion. Gadopentetate Dimeglumine Hives Reaction: Hives, Green Dye Unknown Was getting MRI and developed hives while dye infusion. Adhesive Tape-Silicones Rash Reaction: RASH Aspirin Dizziness Dizziness/Light Headed Latex Other (See comments) Pt states no. Is fine with gloves. Only allergy is to adhesive. Med List Status: Nurse Complete Set By: Eloina Rodriguez RN at 11/07/2023 12:28 PM Taking? Last Dose Start Date End Date Provider acetaminophen (TYLENOL) 325 mg tablet -- 03/01/17 -- Darwin Drake MD aspirin (Adult Low Dose Aspirin) 81 mg enteric coated tablet -- 03/29/22 -- Bobo Perez MD Take 1 tablet (81 mg total) by mouth daily atorvastatin (LIPITOR) 20 mg tablet -- 03/31/17 -- Darwin Drake MD coffee xt/phosphatidyl serine (NEURIVA ORIGINAL ORAL) -- -- -- Darwin Drake MD DULoxetine DR (CYMBALTA) 60 mg capsule -- -- -- Darwin Drake MD eszopiclone (LUNESTA) tablet -- 04/25/17 -- Darwin Drake MD ferrous sulfate 325 mg (65 mg of elemental iron) tablet -- -- -- Darwin Drake MD levothyroxine (SYNTHROID, LEVOTHROID) 50 mcg tablet -- 03/31/17 -- Darwin Drake MD losartan (COZAAR) 25 mg tablet -- 10/09/23 -- Emilio Leggett MD Take 1 tablet by mouth once daily metoprolol XL (TOPROL-XL) 100 mg 24 hr tablet -- -- -- Darwin Drake MD metoprolol XL (TOPROL-XL) 25 mg extended release tablet -- 07/26/17 -- Darwin Drake MD omeprazole (PriLOSEC) 40 mg capsule -- -- -- Darwin Drake MD vitamin E 400 unit capsule -- -- -- Darwin Drake MD Current Outpatient Medications: acetaminophen (TYLENOL) 325 mg tablet aspirin (Adult Low Dose Aspirin) 81 mg enteric coated tablet atorvastatin (LIPITOR) 20 mg tablet coffee xt/phosphatidyl serine (NEURIVA ORIGINAL ORAL) DULoxetine DR (CYMBALTA) 60 mg capsule eszopiclone (LUNESTA) tablet ferrous sulfate 325 mg (65 mg of elemental iron) tablet levothyroxine (SYNTHROID, LEVOTHROID) 50 mcg tablet losartan (COZAAR) 25 mg tablet metoprolol XL (TOPROL-XL) 100 mg 24 hr tablet metoprolol XL (TOPROL-XL) 25 mg extended release tablet omeprazole (PriLOSEC) 40 mg capsule vitamin E 400 unit capsule Social History Tobacco Use Smoking Status Former Current packs/day: 0.00 Types: Cigarettes Quit date: 04/14/1987 Years since quittin.5 Smokeless Tobacco Never Alcohol Use: Not At Risk (11/07/2023) AUDIT-C Frequency of Alcohol Consumption: Monthly or less Average Number of Drinks: 1 or 2 Frequency of Binge Drinking: Never Substance and Sexual Activity Drug Use No Family History Problem Relation Age of Onset Hypertension Mother Leukemia Father PAT Physical Exam Airway Exam: Mallampati: II Cervical ROM: FROM Cardiovascular Exam: Rate: regular Rhythm: regular Pulmonary Exam: LCTA, bilat EENT Exam: trachea midline Dental Exam: Appears intact Skin Exam: Skin is warm and dry. Current state: Patient's current state is cooperative and interactive. Line/Drains/Tubes/Devices: Mechanical cardiac assist devices: +Loop recorder. Vitals: 11/07/23 1241 BP: 144/85 Pulse: 66 Resp: 18 Temp: 36.8 ??C (98.3 ??F) SpO2: 97% EKG 09/26/2023: Sinus Rhythm PT: No results found for requested labs within last 30 days. INR: No results found for requested labs within last 30 days. APTT: No results found for requested labs within last 30 days. Hgb A1C: No results found for requested labs within last 30 days. CBC RBC: No results found for requested labs within last 30 days. RDW: No results found for requested labs within last 30 days. MCHC: No results found for requested labs within last 30 days. MCH: No results found for requested labs within last 30 days. MCV: No results found for requested labs within last 30 days. Hct: No results found for requested labs within last 30 days. Hgb: No results found for requested labs within last 30 days. WBC: No results found for requested labs within last 30 days. MPV: No results found for requested labs within last 30 days. Platelets: No results found for requested labs within last 30 days. RDW CV: No results found for requested labs within last 30 days. RDW Sd: No results found for requested labs within last 30 days. BMP Glucose: No results found for requested labs within last 30 days. Calcium: No results found for requested labs within last 30 days. Sodium: No results found for requested labs within last 30 days. Potassium: No results found for requested labs within last 30 days. CO2: No results found for requested labs within last 30 days. Chloride: No results found for requested labs within last 30 days. BUN: No results found for requested labs within last 30 days. Creatinine: No results found for requested labs within last 30 days. STOP-Bang Total Score: 3 DOS Physical Exam Medical history, medications, and allergies reviewed. Attestation: This PAT evaluation 11/16/2023. Airway Exam: Mallampati: II Cervical ROM: FROM TM distance: >4 Cardiovascular Exam: Rate: regular Rhythm: regular Pulmonary Exam: LCTA, bilat EENT Exam: trachea midline Current state: Patient's current state is cooperative. Anesthesia Plan ASA 3 My patient is approved for the Anesthesia Controlled Medication protocol when under care of a HEAT TREAT FURNACE OPERATOR Planned anesthesia: MAC Induction: Induction: intravenous. Postoperative Plan: Postoperative administration opioids intended. No postoperative mechanical ventilation intended. Patient's planned disposition post procedure is ICU. No trial extubation planned. Informed Consent: Discussed plan with attending and AA. Anesthesia plan and risks discussed with patient. Plan and Consent Comments: Pt reports hx of awareness under anesthesia and PONV (postoperative nausea and vomiting. Consent and Attending signature: I and/or my designee have discussed the anesthesia plan, benefits, possible alternatives, parental presence at time of induction (if indicated), and clinically relevant risks that may include dental injury, unintentional awareness, and/or other complications. The patient and/or parent/legal guardian understand, and agree to proceed. All questions answered. documented in this encounter Plan of Treatment [...] Action Date Dose Rate Site ceFAZolin (ANCEF) injection intravenous, Administer over 3 Minutes, As needed, Starting on Juany 11/16/23 at 1130, Anesthesia Intra-op Given 11/16/2023 11:30 AM CDT 1,000 mg fentaNYL (SUBLIMAZE) preservative free injection intravenous, As needed, Starting on Juany 11/16/23 at 1226, Anesthesia Intra-op Given 11/16/2023 12:26 PM CDT 25 mcg heparin 1,000 unit/mL injection intravenous, As needed, Starting on Juany 11/16/23 at 1209, Anesthesia Intra-op Given 11/16/2023 12:17 PM CDT 3,000 Units Given 11/16/2023 12:09 PM CDT 10,000 Units Lactated Ringer's (LR) infusion 30 mL/hr, intravenous, Continuous, Starting on Juany 11/16/23 at 0900 New Bag 11/16/2023 12:47 PM CDT Rate/Dose Change 11/16/2023 12:34 PM CDT 800 mL /hr Rate/Dose Verify 11/16/2023 11:14 AM CDT 30 mL/ hr lidocaine (cardiac) (XYLOCAINE) preservative free injection intravenous, As needed, Starting on Juany 11/16/23 at 1120, Anesthesia Intra-op, Indications: Ventricular ArrhythmiasIndications:Ve ntricular Arrhythmias Given 11/16/2023 11:20 AM CDT 100 mg midazolam (VERSED) 1 mg/mL preservative free injection intravenous, Administer over 2 Minutes, As needed, Starting on Juany 11/16/23 at 1119, Anesthesia Intra-op Given 11/16/2023 11:19 AM CDT 1 mg phenylephrine (JOE-SYNEPHRINE) 1 mg/10 mL (100 mcg/mL) in sodium chloride 0.9% (premix) intravenous, As needed, Starting on Juany 11/16/23 at 1244, Anesthesia Intra-op Given 11/16/2023 12:44 PM CDT 100 mcg propofoL (DIPRIVAN) 10 mg/mL IV intravenous, Continuous PRN, Starting on Juany 11/16/23 at 1121, Anesthesia Intra-op Given 11/16/2023 11:21 AM CDT 20 mg propofoL (DIPRIVAN) 10 mg/mL IV intravenous, Continuous PRN, Starting on Juany 11/16/23 at 1122, Anesthesia Intra-op Rate/Dose Change 11/16/2023 12:27 PM CDT 125 mcg/kg/min 48.3 mL/hr New Bag 11/16/2023 11:22 AM CDT 120 mcg/kg/min 46.368 m L/hr protamine injection intravenous, As needed, Starting on Juany 11/16/23 at 1254, Anesthesia Intra-op, Indications: Heparin ToxicityIndications:Heparin Toxicity Given 11/16/2023 12:54 PM CDT 50 mg documented in this encounter Orders Medications Ordered That Noel ht Not Have Been Administered Count Last Ordered Date First Ordered Date fentaNYL (SUBLIMAZE) preserv ative free injection 1 11/16/2023 documented in this encounter Care Teams Grinder Operator Relationship Specialty Start Date End Date Gadiel Zavala MD [address] [address] PCP - General 06/13/16 Lyudmila Knox, RN Registered Nurse 04/14/17 Jennifer Escalona, RN Registered Nurse 05/10/17 documented as of this encounter
--- OUTSIDE RECORDS SUMMARY | 2024-04-17 11:48 | XMS_ITS | Encounter Summary ---
Author Organization [facility] Healthcare Address [address] [place] [address] Care Team Providers Care Turn Operator Name Role Phone Gadiel Zaavla MD Primary Care Provider [phone] Lyudmila Knox RN Unavailable Unavailable Jennifer Escalona RN Unavailable Agustina vailable Reason for Visit * Auth/Cert Specialty Diagnoses / Procedures Referred By Delores vines Referred To Contact Diagnoses Paroxysmal atrial fibrillation (CMS/HCC) (HCC) Paroxysmal atrial fibrillation (CMS/HCC) (HCC) [I48.0] Procedures PERC MAURA CLOSE W/IMPLANT 75059 Referral ID Status Reason Start Date Expiration Date Visits Re quested Visits Authorized [id number] 1 1 Encounter Details Date Type Department Care Team (Latest Contact Info) Description 11/16/2023 8:05 AM CDT - 11/17/2023 2:17 PM CDT Hospital Encounter [facility] [address] [place] [address] Emilio Wahl MD [address] [place] [id number] Falls frequently (Primary Dx); Paroxysmal atrial fibrillation (CMS/HCC) (HCC) Discharge Disposition: Discharge to home or self care Social History Tobacco Use Types Packs/Day Years Used Date Smoking Tobacco: Former Cigarettes Q uit: 04/14/1987 Smokeless Tobacco: Never Alcohol Use Standard Drinks/Week Comments Yes 0 (1 standard drink = 0.6 oz pur e alcohol) social [facility] Utilities Answer Date Recorded In the past [...] often do you attend chur ch or anglican services? 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 Gender Identity Not on file Sexual Orientation Not on file documented as of this encounter Last Filed Vital Signs Vital Sign Reading Time Taken Comments Blood Pressure 141/78 11/17/2023 12:15 PM CDT Pulse 75 11/17/2023 12:15 PM CDT Temperature 36.8 ??C (98.3 ??F) 11/17/2023 12:15 PM C DT Respiratory Rate 19 11/17/2023 8:53 AM CDT Oxygen Saturation 98% 11/17/2023 12:15 PM CDT Inhaled Oxygen Concentration - - Weight 64.4 kg (142 lb) 11/17/2023 7:36 AM CDT Height 160 cm (5' 2.99 ) 11/17/2023 7:36 AM CDT Body Mass Index 25.16 11/17/2023 7:36 AM CDT documented in this encounter Discharge Summaries * Emilio Wahl MD - 11/17/2023 10:10 AM CDT Inpatient Discharge Summary BRIEF OVERVIEW Admitting Provider: Emilio Wahl MD Discharge Provider: Emilio Wahl MD Primary Care Physician at Discharge: Gadiel Zavala MD [phone] Admission Date: 11/16/2023 Discharge Date: 11/17/2023 Admission [...] dimensions. No left atrial appendagethrombus was noted. On 11/16/2023, patient underwent Successful [...] Procedures Performed: Procedure(s): PERC MAURA CLOSE W/IMPLANT 41401 INTRACARDIAC ECHOCARDIOGRAM (+) [id number] Discharge Details Physical Exam at Discharge: Discharge [...] 1 week or as directed by your chucking lathe operator. - No driving for 2 days after [...] Center 01/02/2024 10:15 AM Emilio Wahl MD [facility] CAR 2310 Specialty Total time for discharge planning including documentation: 33 minutes documented in this encounter Discharge Instructions * Discharge Instructions* Hamida Zimmerman RN - 11/17/2023 1:51 PM CDT Images from the original note were not included. Discharge patient Once (Routine) Comments: Activity: - No heavy lifting (over 5 pounds) for 1 week or as directed by your chucking lathe operator. - No driving for 2 days after [...] mg total) by mouth daily 30 tablet 11/18/2023 4 losartan (COZAAR) 25 mg tabletIndications: [...] INTRA-PROCEDURAL FOR LEFT ATRIAL APPENDAGE CLOSURE (CPT 70450) Name: Georgiana Bond AGE: 73 y.o. Date of Procedure: 11/16/2023 BIRTHDATE: 1950 COMPUTER ANIMATOR: Emilio Wahl MD REFERRING PHYSICIAN: Gadiel Zavala MD INDICATIONS: [...] original note were not included. Structural Heart Bar Pilot Consult for LAAO Patient Name:Georgiana Bond Age:73 [...] TIA, thromboembolism 0 V Vascular disease (PAD, SD) 0 A Age 65-74 0 Sc Sex category (Female) 1 Total Points 4 4 points Stroke risk was 4.8% per year in >90,000 patients (the [place] Atrial Fibrillation Cohort Study)and 6.7% risk of [...] vein. NOTES Patient seen by Structural Heart Bar Pilot for consult to the Structural Heart Program [facility]. Process for LAAO evaluation explained to patient [...] Planning Goal: Understanding discharge needs will improve 11/17/2023 1327 by Hamida Zimmerman, RN Outcome: Completed 11/17/2023 0837 by Hamida Zimmerman, RN Outcome: Progressing Problem: Cardiovascular Goal: Maintains optimal cardiac output and hemodynamic stability 11/17/20231326 by Hamida Zimmerman RN Outcome: Completed 11/17/2023836 by Hamida Zmimerman RN Outcome: Progressing Goal: Absence of cardiac [...] Care Provider: Gadiel Zavala MD Preferred Pharmacy: [facility] - [place], [place] - [address] [facility] [address] [facility] [address] Primary Caregiver: Self Who does the patient or legal guardian want to receive education instruction and discharge plans for after care assistance?: Name Caregiver Name: Satish Castillo Relationship to patient: spouse Caregiver Contact Information: [phone] Home Care Services: No Durable Medical Equipment: Motorized wheelchair, Walker (wheeled), Walker (no wheels), Toilet riser, Tub bench Living Arrangements: Spouse/significant other Type of Residence: Private residence Payor Source: Medicare advantage, Prescription benefits Does the patient need discharge transport arranged?: No (11/17/23 8790) Additional Information and Discharge Plan: Pt admitted 11/16/23 s/p LAAO & anticipated DC home today. CM met with pt at bedside to complete assessment for initial discharge planning, plan of care & goals for discharge. Demographics verified per face sheet. See designated cna caregiver & health care agents for contact info. Pt lives at home with spouse Satish Castillo. Pt has multiple walkers& electric w/c she uses. She reports independent with personal ADLs, & provides transportation. Preferred pharmacy [facility] on file & she will make her own PCP follow-up appointment. Goal is to return home with upon discharge. No identified CM discharge needs. MELISSA Torrez-RN [facility] [phone] * Plan of Care - Hamida Zimmerman [...] (CMS/HCC) (HCC) PERC MAURA CLOSURE W/IMPLANT (WATCHMAN) 82927 Routine 11/16/2023 1:03 PM CDT Paroxysmal atrial [...] AM CDT Narrative 11/18/2023 11:29 [place] [address] Limited Echocardiogram Report Patient Name: GEORGIANA BOND D : 1950 Study Date: 11/17/2023 9:00:22 AM Gender: F Tech: [place] Location: [id number] [facility] Provider: EMILIO WAHL ?Height(Cm): 160 BSA: ??Weight(Kg): [...] effusion. Electronically Signed By: Emilio Wahl MD, [facility] 2023-11-18 11:29:31 CDT Procedure Note Emilio Wahl MD - 11/18/2023 [place] [address] Limited Echocardiogram Report Patient Name: GEORGIANA BOND D : 1950 Study Date: 11/17/2023 9:00:22 AM Gender: F Tech: [place] Location: [id number] Ref Provider: EMILIO WAHL Height(Cm): 160 BSA: [...] effusion. Electronically Signed By: Emilio Wahl MD, [facility] 2023-11-18 11:29:31 CDT Emilio Wahl MD CV ECHO PROCEDURES Final Result * ECG 12 lead (11/17/2023 8:01 AM CDT) 11/17/2023 8:01 AM CDT Narrative [facility] - 11/19/2023 7:15 PM CDT Vent Rate: 77 bpm RR Interval: 770 msec OR Interval: 163 msec QRS Duration: 82 msec QT Interval: 378 msec QTC Interval: 410 msec P-R-T Spurgeon: 30 - 26 - 12 degrees IMPRESSION: SINUS RHYTHM NORMAL ECG Electronically Signed By: Emilio Wahl MD, [facility] Emilio Wahl MD ECG ORDERABLES Final Result [facility] * eGFR (11/17/2023 7:45 AM [...] ORDERABLES Final Resul t Performing Organization Address City/State/[facility] Co de Phone Number [facility] [address] [address] [place] [address] * Differential, auto (11/17/2023 7:45 AM CDT) Neutrophil abs 5.6 1.5 - 6.5 K/cumm Imm gran abs 0.0 0.0 - 0.1 K/cumm [facility] Lymphocyte abs 1.2 0.8 - 3.3 K/cumm [facility] Monocyte abs 0.6 0.2 - 0.8 K/cumm C[facility]ER Eosinophil abs 0.0 0.0 - 0.5 K/cumm [facility] Basophil abs 0.0 0.0 - 0.1 K/cumm [facility] Neutrophil pct 75.4 % [facility] Comment: Interpretive Data Percent cell count reference ranges are not reported, since discordance with absolute values may lead to misinterpretation of CBC data. Current Interpretive Data was last revised on 2017. Imm gran pct 0.4 % MARK Comment: Interpretive Data Percent cell count reference ranges are not reported, since discordance with absolute values may lead to misinterpretation of CBC data. Current Interpretive Data was last revised on 2017. Lymphocyte pct 15.8 % MARK Comment: Interpretive Data Percent cell count reference ranges are not reported, since discordance with absolute values may lead to misinterpretation of CBC data. Current Interpretive Data was last revised on 2017. Monocyte pct 7.6 % MARK Comment: Interpretive Data Percent cell count reference ranges are not reported, since discordance with absolute values may lead to misinterpretation of CBC data. Current Interpretive Data was last revised on 2017. Eosinophil pct 0.5 % MARK Comment: Interpretive Data Percent cell count reference ranges are not reported, since discordance with absolute values may lead to misinterpretation of CBC data. Current Interpretive Data was last revised on 2017. Basophil pct 0.3 % [facility] Comment: Interpretive Data Percent cell count reference ranges are not reported, since discordance with absolute values may lead to misinterpretation of CBC data. Current Interpretive Data was last revised on 2017. Blood 11/17/2023 7:45 AM CDT 11/17/2023 8:04 AM CDT us Emilio Wahl MD LAB BLOOD ORDERABLES Final Resul t [facility] [address] [address] Department [place] [address] * CBC with auto differential (11/17/2023 7:45 AM CDT) WBC 7.4 3.8 - 9.9 K/cumm Hgb 12.2 11.9 - 15.5 g/dL [facility] Hct 36.7 35.6 - 45.5 % [facility] Plt 282 150 - 400 K/cumm [facility] MPV 9.3 9.1 - 12.3 fL [facility] RBC 4.08 3.90 - 5.20 M/cumm [facility] MCV 90.0 81.3 - 96.4 fL [facility] MCH 29.9 27.1 - 33.3 pg [facility] MCHC 33.2 32.3 - 35.7 g/dL [facility] RDW CV 13.8 11.1 - 14.9 % [facility] CH RDW SD 45.4 35.7 - 48.1 fL [facility] NRBC abs 0.00 0.00 - 0.01 K/cumm [facility] Blood 11/17/2023 7:45 AM CDT 11/17/2023 8:04 AM CDT us Emilio Wahl MD LAB BLOOD ORDERABLES Final Resul t [facility] [address] [address] Department [place] [address] * (ABNORMAL) Basic metabolic panel (11/17/2023 7:45 AM CDT) Sodium 136 135 - 145 mmol/L Potassium, pl 3.7 3.3 - 4.9 mmol/L [facility] Chloride 99 97 - 110 mmol/L [facility] CO2 25 22 - 32 mmol/L [facility] Anion gap 12 2 - 15 mmol/L [facility] BUN 8 6 - 25 mg/dL [facility] Creatinine 0.56(L) 0.60 - 1.10 mg/dL [facility] Glucose 110 70 - 199 mg/dL [facility] Comment: Interpretive Data Fasting glucose >/= 126 [...] classification and Diagnosis of Diabetes Diabetes Care 202; 46: S19-S40. Current interpretive data was last revised 2022. Calcium 8.8 8.5 - 10.3 mg/dL [facility] Blood 11/17/2023 7:45 AM CDT 11/17/2023 8:04 AM CDT Result [facility] us Emilio Wahl MD LAB BLOOD ORDERABLES Edited Resu lt - Final Performing Organization Address [facility] de Phone Number MARK [address] [facility] [employer] [place] [address] * aPTT (11/16/2023 2:25 PM CDT) aPTT 37 28 - 38 sec Comment: Interpretive Data Heparin therapeutic range: 66.0 - 100.0 seconds. Range based on correlation with therapeutic heparin activity range of 0.3 - 0.7 Units/mL. Current interpretive data was last revised on 2023. Blood 11/16/2023 2:25 PM CDT 11/16/2023 2:32 PM CDT Result [facility] us Emilio Wahl MD LAB BLOOD ORDERABLES Final Resul t Performing Organization Address [facility] de Phone Number [facility] [address] [facility] [place] [place] [address] * Protime-INR (11/16/2023 2:25 PM CDT) PT 11.8 9.7 - 13.0 sec INR 1.09 0.90 - 1.20 [facility] Comment: Interpretive data Oral anticoagulant therapeutic ranges: Venous thromboembolism prophylaxis or treatment: 2.0-3.0 CARDIOLOGY Standard range: 2.0-3.0 High-intensity range: 2.5-3.5 Refer to indication-specific guidelines for appropriate target ranges for prosthetic heart valve replacement. Current interpretive data was last revised on 2019. Blood 11/16/2023 2:25 PM CDT 11/16/2023 2:32 PM CDT Result Manuel Wahl MD LAB BLOOD ORDERABLES Final Resul t Performing Organization Address City/[facility]/ZIP Co de Phone Number MARK DENT [address] [address] [facility] [place] [address] * Magnesium (11/16/2023 2:25 PM CDT) Magnesium 1.9 1.4 - 2.5 mg/dL Blood 11/16/2023 2:25 PM CDT 11/16/2023 2:32 PM CDT Emilio Wahl MD LAB BLOOD ORDERABLES Final Resul t Performing Organization Address [facility] de Phone Number MARK DENT [address] [address] [facility] [place] [address] * XR Chest 1 view (11/16/2023 1:38 PM CDT) Anatomical Region Laterality Modality Body, Chest N/A Computed Radiogr aphy 11/16/2023 1:4 8 PM CDT Impressions 11/16/2023 1:48 PM CDT [...] Result * PERC MAURA CLOSURE W/IMPLANT (WATCHMAN) 216[address], INTRACARDIAC ECHOCARDIOGRAM (11/16/2023 1:03 PM CDT) Anatomical [...] Amplatzer Amulet left atrial appendage occluder (CPT 15653) Intracardiac echocardiogram (ICE) Deployment of 3 Perclose vascular closure devices at the right common femoral venous access sites SEDATION: ??MAC - by anesthesiology team ACCESS SITES: ??Right common femoral vein PROCEDURE: ?? After obtaining informed consent, patient was brought to the canvas shop laborer and prepped and draped in the usual sterile manner. ??Time-out and immediate reassessment of the patient was performed. ??Patient was placed under MAC by the anesthesiologist team. ?? Two right common femoral venous accesses were taken under ultrasound guidance with micropuncture needle. ??Two Perclose vascular closure device were placed. ??A 12 Romanian sheaths were inserted in the inferior access site over a 035 wire for ICE. [place] [address] units of unfractionated heparin for procedural anticoagulation at different intervals during the procedure, to maintain ACT between 250-350 seconds. ?? ACT was monitored throughout the procedure at regular intervals. ?? [place] sheath was advanced in the superior access site of right common femoral vein. Atrial septal puncture was performed using [place] transseptal needle under intracardiac echo and fluoroscopic guidance. ??The sheath was advanced to the left atrium towards the pulmonary vein over the pre shaped wire. ??The sheath was taken out and it was exchanged with a 14 Romanian amulet delivery sheath. ??The sheath was advanced into the left atrium, the atrial septum was dilated with the sheath, and then sheath was taken out over the wire and positioned in the right atrium. ??Next, ICE catheter was advanced into the left atrial cavity. ??Left atrial appendage measurement was performed. ??After this, the 14 Romanian sheath was reintroduced over [place] wire. A 5 Romanian pigtail catheter was advanced over the wire and the pre shaped wire was taken out. ??Left atrial pressure was measured at 8 mmHg despite aggressive IV normal saline administration. A 5 Romanian pigtail catheter was later positioned in the [...] was used to complete this document, therefore, pickle processor variances may occur. Emilio Wahl MD, [facility] 11/16/23 Emilio Wahl MD CV ELECTROPHYSIOLOGY PROCS Edite d Result - Final * (ABNORMAL) POC Activated Clotting Time, High Range (11/16/2023 12:44 PM CDT) ACT 293(H) 87 - 138 sec Blood 11/16/2023 12:4 4 PM CDT 11/16/2023 12:44 PM CDT Emilio Wahl MD LAB BLOOD ORDERABLES Final Resul t MARK DENT [address] [address] Department [place] [address] * (ABNORMAL) POC Activated Clotting Time, High Range (11/16/2023 12:24 PM CDT) ACT 337(H) 87 - 138 sec Blood 11/16/2023 12:2 4 PM CDT 11/16/2023 12:24 PM CDT Result Manuel Whal MD LAB BLOOD ORDERABLES Final Resul t Performing Organization Address [facility] de Phone Number MARK DENT [address] [address] [facility] [place] [place] [address] * (ABNORMAL) POC Activated Clotting Time, High Range (11/16/2023 12:13 PM CDT) ACT 280(H) 87 - 138 sec Blood 11/16/2023 12:1 3 PM CDT 11/16/2023 12:13 PM CDT Result Manuel Wahl MD LAB BLOOD ORDERABLES Final Resul t Performing Organization Address [facility] de Phone Number MARK DENT [address] [address] [employer] [place] [place] [address] * Check Sample (11/16/2023 8:26 AM CDT) ABO Rh A Positive CH HCLL OTHER 11/16/2023 8:26 AM CDT 11/16/2023 8:38 AM CDT Result Manuel Wahl MD LAB BLOOD ORDERABLES Final Resul t Performing Organization Address [facility] de Phone Number [facility] [address] [address] [facility] [place] [address] CH documented in this encounter Visit Diagnoses Diagnosis Paroxysmal atrial fibrillation (CMS/HCC) (HCC)- Primary Atrial fibrillation Paroxysmal atrial fibrillation (CMS/HCC) (HCC) Atrial fibrillation Falls frequently Personal history of fall Presence of Amulet left atrial appendage closure device Falls frequently Personal history of fall Paroxysmal atrial fibrillation (CMS/HCC) (HCC) Atrial fibrillation documented in this encounter Admitting Diagnoses Diagnosis Paroxysmal atrial fibrillation (CMS/HCC) (HCC) Atrial fibrillation Presence of Amulet left atrial appendage closure device documented in this encounter Administered Medications Inactive Administered Medications - up to 3 most recent administrations Medication Order MAR Action Action Date Dose Rate Site acetaminophen (TYLENOL) tablet 500 mg 500 mg, oral, Once, On Juany 11/16/23 at 0900, For 1 dose, Pre-Op, Indications: Pre-Emptive AnalgesiaIndications:Pre-Emptive Analgesia Given 11/16/2023 8:54 AM CDT 500 mg acetaminophen (TYLENOL) tablet 650 mg 650 [...] (PLAVIX) tablet 75 mg 75 mg, oral, Once, On Mon11/17/23 at 0515, For 1 dose, Phase I & Post-op Floor, If patient able to swallow, Indications: Thrombosis PreventionIndications:Thrombosis Prevention Given 11/17/2023 4:55 AM CDT 75 mg clopidogreL (PLAVIX) tablet 75 mg 75 [...] Given 11/17/2023 9:25 AM CDT 60 mg famotidine (PEPCID) tablet 20 mg 20 mg, oral, Once as needed, heartburn, Starting on Mon11/16/23 at 2000, For 1 dose Given 11/16/2023 8:14 PM CDT 20 mg Lactated Ringer's (LR) infusion 30 mL/hr, intravenous, Continuous, Starting on Mon11/16/23 at 0900 New Bag 11/16/2023 12:47 PM [...] Given 11/17/2023 5:00 AM CDT 50 mcg metoprolol (LOPRESSOR) injection 5 mg 5 mg, [...] 75 mg, oral, Daily, First dose on 11/18/23 at 0900, Phase I & Post-op Floor, [...] at 0900, Phase I & Post-op Floor 09 (Not Given - Provider: Hamida Zimmerman RN - Reason: Other - Comment: Hold per Dr Wahl) metoprolol XL (TOPROL-XL) extended release tablet 100 mg 100 mg, oral, Daily, First dose on Mon11/17/23 at 0900, Phase I & Post-op Floor, Tablets that are scored may be split, but do not crush, chew, dissolve, open or otherwise manipulate tablet/capsule. 09 (Given - Provid er: Hamida Zimmerman RN) metoprolol XL (TOPROL-XL) extended release tablet 25 mg 25 mg, oral, Daily, First dose on Mon11/17/23 at 0900, Phase I & Post-op Floor, Tablets that are scored may be split, but do not crush, chew, dissolve, open or otherwise manipulate tablet/capsule. 09 (Given - Provid er: Hamida Zimmerman RN) [...] infusion 30 mL/hr, intravenous, Continuous, Starting on Mon11/16/23 at 0900 0854 (New Bag - Provider: [...] tablet - ADS Override Pull 1 11/17/2023 clopidogreL (PLAVIX) 75 mg t ablet - ADS Override Pull 1 11/17/2023 clopidogreL (PLAVIX) tablet 75 mg 1 024 ferrous sulfate delayed rele ase tablet 65 mg of elemental iron 1 11/17/2023 levothyroxine (SYNTHROID) 50 mcg tablet - ADS Override Pull 1 11/17/2023 losartan (COZAAR) tablet 25 mg 1 11/17/2023 ondansetron (ZOFRAN) injection 4 mg 3 11/1611/16/2023 sodium chloride 0.9% infusion 2 11/17/2023 11/16/2023 Carrier Fluids for Secondary Infusion - 0.9% Sodium Chloride 3 11/16/2023 heparin in 0.9% sodium chlor apollo 1,000 units/500 mL (2 unit/mL) infusion (premix) 1 11/16/2023 HYDROmorphone (PF) (DILAUDID ) injection 0.2 mg 2 11/16/2023 iodixanoL (VISIPAQUE) 320 mg iodine/mL injection 1 11/16/2023 lidocaine (XYLOCAINE) 10 mg/ mL (1 %) injection 1 11/16/2023 naloxone (NARCAN) 0.4 mg/mL injection 0.04-0.4 mg [...] 11/17/2023 documented in this encounter Care Teams Turn Operator Relationship Specialty Start Date End Date Gadiel Zavala MD [address] [address] PCP - General 06/13/16 Lyudmila Knox, RN Registered Nurse 04/14/17 Jennifer Escalona, RN Registered Nurse 05/10/17 documented as of this encounter
--- OUTSIDE RECORDS SUMMARY | 2024-04-17 11:48 | XMS_ITS | Encounter Summary ---
Author Organization [facility] Healthcare Address [address] [place] [address] Care Team Providers Care Anhydrous Ammonia Production Supervisor Name Role Phone Gadiel Zavala MD Primary Care Provider [phone] Lyudmila Knox RN Unavailable Unavailable Jennifer Escalona RN Unavailable Agustina vailable Encounter Details Date Type Department Care Team (Late st Contact Info) Description 10/23/2023 Orders Only Cardiology Emilio Leggett MD [address] [facility] [address] [place], [place] [id number] Paroxysmal atrial fibrillation (CMS/HCC) (HCC) (Primary Dx) Social History Tobacco [...] on file 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 Gender Identity Not on file Sexual Orientation [...] as of this encounter Visit Diagnoses Diagnosis Paroxysmal atrial fibrillation (CMS/HCC) (HCC)- Primary Atrial fibrillation documented in this encounter Orders Case Request Count Last Ordered Date First Orde red Date CASE REQUEST DAY PORTER 1 10/23/2023 documented in this encounter Care Teams Anhydrous Ammonia Production Supervisor Relationship Specialty Start Date End Date Gadiel Zavala MD [address] [address] PCP - General 06/13/16 Lyudmila Knox, RN Registered Nurse 04/14/17 Jennifer Escalona, RN Registered Nurse 05/10/17 documented as of this encounter
--- OUTSIDE RECORDS SUMMARY | 2024-04-17 11:48 | XMS_ITS | Encounter Summary ---
Author Organization [facility] Healthcare Address [address] [place] [address] Care Team Providers Care Hospitality Ambassador Name Role Phone Gadiel Zavala MD Primary Care Provider [phone] [phone] Lyudmila Knox RN Unavailable Unavailable Jennifer Escalona RN Unavailable Agustina vailable Reason for Visit * Cardiology (Routine) - Closed Specialty Diagnoses / Procedures Referred By Delores t Referred To Contact Diagnoses Paroxysmal atrial fibrillation (CMS/HCC) (HCC) Syncope and collapse Procedures DEVICE CHECK - REMOTE Bobo Perez MD Phone: tel: fax: [facility] Referral ID Status Reason Start Date Expiration Date Visits Re quested Visits Authorized [id number] Closed 06/06/2023 12/04/2024 1 1 Encounter Details Date Type Department Care Team (Latest Contact Info) Description 10/23/2023 7:45 AM CDT Ancillary Procedure [facility] Cardiology [address] [place] [phone] Status post placement of implantable loop recorder (Primary Dx); Paroxysmal atrial fibrillation (CMS/HCC) (HCC); Syncope and collapse Social History [...] on file 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 Routine ILR remote. DOS: 10.23.2023 Normal device function. Battery function: OK Medications: ASA, Toprol XL- among others Presenting rhythm: VS at 60 bpm Events: ??None Plan: ??Continue remote monitoring SOFIA [place] Device Specialist Bobo Perez MD [facility] CARDIAC SERVICES PROC EDURES Final Result documented in this encounter Visit Diagnoses Diagnosis Status post placement of implantable loop recorder- Primary Paroxysmal atrial fibrillation (CMS/HCC) (HCC) Atrial fibrillation Syncope and collapse documented in this encounter Care Teams Hospitality Ambassador Relationship Specialty Start Date End Date Gadiel Zavala MD [address] [address] PCP - General 06/13/16 Lyudmila Knox, RN Registered Nurse 04/14/17 Jennifer Escalona, RN Registered Nurse 05/10/17 documented as of this encounter
--- OUTSIDE RECORDS SUMMARY | 2024-04-17 11:48 | XMS_ITS | Encounter Summary ---
Author Organization [facility] Address [address] [place] [address] Care Team Providers Care Minesweeping Officer Name Role Phone Gadiel Zavala MD Primary Care Provider [phone] Lyudmila Knox RN Unavailable Unavailable Jennifer Escalona RN Unavailable Agustina vailable Reason for Referral * Procedure (Routine) - Canceled Specialty Diagnoses / Procedures Referred By Delores vines Referred To Contact Cardiology Diagnoses Presence of Amulet left atrial appendage closure device Emilio Wahl MD [address] [address] Phone: tel: fax: Emilio Wahl MD [address] [address] Phone: tel: fax: Referral ID Status Reason Start Date Expiration Date Visits Requested Visits Authorized [id number] Canceled Specialty Services Required 01/02/2024 01/31/2025 1 1 Question Answer Please select the performing region: [facility] [[id number]] Please select the performing department: [facility] [[id number]] To provider: EMILIO WAHL [[id number]] # of visits: 1 Comments Kaitlin Yaya Bond 1950 [place] in CL with Dr. Wahl on 02/08/24 at 1130 a.m. pt to arrive at [address] Wahl ordered procedure and doing procedure. Dx: S/p Amulet procedure. [facility] Medicare * Cardiology (Routine) - Closed Specialty Diagnoses / Procedures Referred By Delores t Referred To Contact Diagnoses Presence of Amulet left atrial appendage closure device Procedures Transesophageal Echo (HUMBERTO) W Doppler/CF TRANSESOPHAGEAL ECHO (HUMBERTO) W DOPPLER/CF TRANSESOPHAGEAL ECHO (HUMBERTO) W DOPPLER/CF WO CONTRAST TRANSESOPHAGEAL ECHOCARDIOGRAM (HUMBERTO) COMPLETE W/ CONTRAST TRANSESOPHAGEAL ECHO (HUMBERTO) W DOPPLER/CF W CONTRAST TRANSESOPHAGEAL ECHO (HUMBERTO) W LTD DOPPLER/CF WO CONTRAST TRANSESOPHAGEAL ECHOCARDIOGRAM (HUMBERTO) COMPLETE W/ COLOR TRANSESOPHAGEAL ECHO (HUMBERTO) WO DOPPLER/CF W CONTRAST Emilio Wahl MD [address] [place] [address] Phone: tel: fax: [address] [phone] Referral ID Status Reason Start Date Expiration Date Visits Re quested Visits Authorized [id number] Closed 01/02/2024 01/31/2025 1 1 Reason for Visit * Reason Onset Date Comments Procedure Scheduling 01/02/2024 Post-Amulet HUMBERTO Encounter Details Date Type Department Care Team (Late st Contact Info) Description 01/02/2024 Telephone [facility] Cardiology [address] [place] [phone] Emilio Wahl MD [address] [place] [id number] Procedure Scheduling (Post-Amulet HUMBERTO ) Social History Tobacco Use Types Packs/Day Years Used Date Smoking Tobacco: Former Cigarettes Q uit: 04/14/1987 Smokeless Tobacco: Never Alcohol Use Standard Drinks/Week Comments Yes 0 (1 standard drink = 0.6 oz pur e alcohol) social [facility] Utilities Answer Date Recorded In the past 12 months has [employer] gas, oil, or water [employer] threatened to shut off services in your [...] often do you attend chur ch or taoism services? Never 11/17/2023 Do you belong to any clubs o r organizations such as jain groups, unions, fraternal or athletic groups, or [...] any time in the past 12 m [facility], were you homeless or living in a detention (including now)? No 11/17/2023 Personal Safety Answer Date Recorded Have you ever been in or are you currently in a harmful physical or emotional relationship or is someone making you feel afraid or unsafe? 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 Wahl on 02/08/24 at 1130 a.m. pt to arrive at [address] Wahl ordered procedure and doing procedure. Dx: S/p Amulet procedure. [facility] Medicare. Spoke w/ Omar with CL. Got date/time. Called Centralized scheduling and had them manually place ont schedule so it shows up for graphics. Messaged Rocio from [employer], notified her so probe availability. Messaged Omar with , and had her assign HUMBERTO to Dr. Wahl so it shows up on his schedule that day. Patient can take all her meds the morning of with a small sip of water. Patient does not need to hold any meds. Scanned procedure instructions in pt's chart for review. - mailed instructions to patients home as well. (Called pt to review) - LMOV. Advised pt to call me back if need me to review instructions w/ her otherwise they are in the mail. * Telephone Encounter - Master Gaston RN - 01/02/2024 10:[address] Wahl seeing patient today in clinic and wants pt scheduled for a post-amulet HUMBERTO. Will get pt scheduled. documented in this encounter Plan of Treatment Scheduled Referrals Name Type Priority Associated Diagnoses Order Schedule Ambulatory referral to Cardiology Outpatient Referral Routine Presence of Amulet left atrial appendage closure device Expected: 01/16/2024 (Approximate), Expires: 01/01/2025 documented as of this encounter Goals Goal Patient Goal Type Associated Problems Recent Progress Patient-Stated? Author Increase physical activity Exercise Lyudmila Shah, LOGAN Note: She is doing arm and leg exercises from Pt. She was in rehab after neck surgery for 2 weeks in March 2017 documented as of this encounter Results * TRANSESOPHAGEAL ECHO (HUMBERTO) W DOPPLER/CF WO [...] 1132, total time ?? 12 minutes (CPT 62490) ANESTHESIA: ??Versed. ??2 mg, ??Fentanyl ??50 mcg, Benzocaine Scuddy, Viscous lidocaine. ??Dee Costa RN was trained [...] was used to complete this document, therefore, television actor variances may occur. Emilio Wahl MD, [facility] 02/08/24 Emilio Wahl MD CV ECHO PROCEDURES Final Result documented in this encounter Visit Diagnoses Diagnosis Presence of Amulet left atrial appendage closure device- Primary Presence of Amulet left atrial appendage closure device documented in this encounter Care Teams Minesweeping Officer Relationship Specialty Start Date End Date Gadiel Zavala MD [address] [address] PCP - General 06/13/16 Lyudmila Knox, RN Registered Nurse 04/14/17 Jennifer Escalona, LOGAN Registered Nurse 05/10/17 documented as of this encounter
--- OUTSIDE RECORDS SUMMARY | 2024-04-17 11:48 | XMS_ITS | Encounter Summary ---
Author Organization [facility] Healthcare Address [address] [place] [address] Care Team Providers Care Journeyman Mechanic Name Role Phone Gadiel Zavala MD Primary Care Provider [phone] [phone] Lyudmila Knox RN Unavailable Unavailable Jennifer Escalona RN Unavailable Agustina vailable Reason for Visit * Reason Comments Follow-up 1 mo Encounter Details Date Type Department Care Team (Late st Contact Info) Description 10/16/2023 10:30 AM CDT Office Visit [facility] Cardiology [address] [place] [address] Sandra Cohn NP [address] [place] [address] PAF (paroxysmal atrial fibrillation) (CMS/HCC) (HCC) (Primary Dx); Contraindication to anticoagulation therapy; Frequent falls; Chest pain, atypical Social History Tobacco Use Types Packs/Day Years [...] on file 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 Gender Identity Not on file Sexual Orientation Not on file documented as of this encounter Last Filed Vital Signs Vital Sign Reading Time Taken Comments Blood Pressure 130/78 10/16/2023 10:34 AM CDT Pulse 72 10/16/2023 10:34 AM CDT Temperature - - Respiratory Rate - - Oxygen Saturation 98% 10/16/2023 10:34 AM CDT Inhaled Oxygen Concentration - - Weight 66.2 kg (146 lb) 10/16/2023 10:34 AM CDT Height 160 cm (5' 3 ) 10/16/2023 10:34 AM CDT Body Mass Index 25.86 10/16/2023 10:34 AM CDT documented in this encounter Progress Notes * Sandra Cohn NP - 10/16/2023 10:30 AM CDT Images from the original note were not included. [facility] Cardiology [address] [place] [address] Date of Visit: 10/16/2023 Patient ID: Kaitlin Bond 1950 Chief Complaint Patient presents with Follow-up 1 mo Kaitlin Bond is a 73 y.o. female who was referred to Dr. Leggett for amulet device and returns for follow-up after having heart CT. History of Present Illness: Kaitlin Bond is a 73 y.o. female with a PMHx of hypertension, hyperlipidemia, recent diagnosiscolonic adenocarcinoma, and atrial fibrillation. This is a patient who presented to [facility] for laparoscopic right hemicolectomy on October 13, 2021. During postoperative recovery she developed atrial fibrillation with rapid ventricular response with heart rates in the 160s to 170s. She was symptomatic with this, was feeling palpitations and shortness of breath. She did spontaneously convert back to sinus rhythm on a diltiazem drip in addition to her home metoprolol. She was started on systemic anticoagulation with Xarelto. Remained in sinus rhythm throughout the remainder of her hospitalization. 11/17/2021 Hospital follow-up with [facility] RETAIL EVENT ASSISTANT - Kaitlin Bond comes to the office today for a hospital follow up visit. She has been doing well since her discharge from the hospital. She has experienced some palpitations when she lays down to sleep but nothing that is causing her significant symptoms. Palpitations are self limited. She has been compliant with her anticoagulation and continues to take oral metoprolol. Complaining of a dry cough that has been persistent for about 6 months. 03/29/22 no palpitations, no CP or SOB. Has chronic pain in back, neck, peripheral neuropathy and frequent falls almost daily 2 today already. Has hit her head in the past but not for >1 year. Shesuddenly loses complete control of feet and legs resulting in imbalance and falls. She is here with her and he agrees she is unstable and high fall risk. 06/22/22 Feeling well, no new issues. No CP or palps. No bleeding or SOB. She reports she falls all the time still and last fell this AM related to her neuropathy not dizziness or syncope. Taking ASA 81mg daily. 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 10/07/22 no issues with loop placed 07/2022. Coughing a lot notes some intermittent random CP L and R mild when lying down. Not hurting with coughing per se. Dizzy, has a lot of pain in neck and back, otherwise ok. Still having recurrent falls, last time this AM hurt her knee. No arrythias yet on looprecorder. 04/14/23 Notes stomach pains intermittent 2x/week lasts 10 min random has not spoken with PCP yet, no CP or SOB. No palps. Coughs with drinking or eats more with liquids, like something always in throat. Still with frequent falls, fell last night and 1 month ago fell and hit back of her head, did not seek medical attention. No diarrhea/constipation or bleeding. Dark green tongue past couple of weeks as well called PCP who prescribed med but not helping. 10/16/2023 office visit with RETAIL EVENT ASSISTANT: She returns for follow-up accompanied by her after having heart CT last week. She had another fall 5 days ago with injury to the right leg and hematoma, was evaluated at [facility] ER. She has ongoing lightheadedness that is random and not new. She also endorses a left-sided chest pain that feels like a pressure and lasts for a few seconds which is random and intermittent, not daily, has been feeling this for about a month or so. Records that I personally reviewed on the day of this visit include: (the interpretation is outlined in the HPI above) 09/26/[address] Leggett, 10/09/[address] report. I have also reviewed: allergies, current medications, past family history, past medical history, past social history, past surgical history and problem list. Medical History: Past Medical History: Diagnosis Date Anemia Arthritis Awareness under anesthesia Chronic back pain Depression GERD (gastroesophageal reflux disease) Hyperlipidemia Hypertension Hypothyroidism Neuropathy (CMS/HCC) Past Surgical History: Procedure Laterality Date ANTERIOR FUSION CERVICAL SPINE HYSTERECTOMY SPINE SURGERY lumbar Social History Tobacco Use Smoking Status Former Current packs/day: 0.00 Types: Cigarettes Quit date: 04/14/1987 Years since quittin.5 Smokeless Tobacco Never Social History Tobacco Use Smoking status: Former Current packs/day: 0.00 Types: Cigarettes Quit date: 04/14/1987 Years since quittin.5 Smokeless tobacco: Never Substance and Sexual Activity Drug use: No Sexual activity: Defer Alcohol Use: Not on file Family History Problem Relation Age of Onset Hypertension Mother Leukemia Father Review of Systems Constitutional: Negative for malaise/fatigue, weight gain and weight loss. Cardiovascular: Positive for chest pain. Negative for dyspnea on exertion, leg swelling, near-syncope, orthopnea, palpitations, paroxysmal nocturnal dyspnea and syncope. Respiratory: Negative for cough, shortness of breath and sleep disturbances due to breathing. Hematologic/Lymphatic: Negative for bleeding problem. Does not bruise/bleed easily. Neurological: Positive for light-headedness and loss of balance. Vital Signs: BP 130/78 (BP Location: Left arm, Patient Position: Sitting) Pulse 72 Ht 160 cm (5' 3 ) Wt 66.2 kg (146 lb) SpO2 98% BMI 25.86 kg/m?? Physical Exam Constitutional: General: She is not in acute distress. Appearance: She is well-developed. Comments: Seated in wheelchair HENT: Head: Normocephalic and atraumatic. Eyes: General: No scleral icterus. Conjunctiva/sclera: Conjunctivae normal. Neck: Vascular: No JVD. Trachea: No tracheal deviation. Cardiovascular: Rate and Rhythm: Normal rate and regular rhythm. Heart sounds: Normal heart sounds. No murmur heard. Pulmonary: Effort: Pulmonary effort is normal. No respiratory distress. Breath sounds: Normal breath sounds. Musculoskeletal: Right lower leg: No edema. Left lower leg: No edema. Skin: General: Skin is warm and dry. Neurological: Mental Status: She is alert and oriented to person, place, and time. Psychiatric: Mood and Affect: Mood normal. Behavior: Behavior normal. Allergies Allergen Reactions Gadolinium-Containing Contrast Media Hives [...] Only allergy is to adhesive. Current Outpatient Medications: acetaminophen (TYLENOL) 325 mg tablet, Take 2 tablets (650 mg total) by mouth every 4 (four) hours as needed, Disp: , Rfl: aspirin (Adult Low Dose Aspirin) 81 mg enteric coated tablet, Take 1 tablet (81 mg total) by mouth daily, Disp: , Rfl: atorvastatin (LIPITOR) 20 mg tablet, Take 1 tablet (20 mg total) by mouth daily, Disp: , Rfl: eszopiclone (LUNESTA) tablet, Take 1 tablet (3 mg total) by mouth nightly, Disp: , Rfl: 1 levothyroxine (SYNTHROID, LEVOTHROID) 50 mcg tablet, Take 1 tablet (50 mcg total) by mouth daily, Disp: , Rfl: losartan (COZAAR) 25 mg tablet, Take 1 tablet by mouth once daily, Disp: 90 tablet, Rfl: 0 metoprolol XL (TOPROL-XL) 100 mg 24 hr tablet, Take 1 tablet (100 mg total) by mouth daily TAKE IN COMBINATION WITH 25 MG TABLET, Disp: , Rfl: metoprolol XL (TOPROL-XL) 25 mg extended release tablet, , Disp: , Rfl: omeprazole (PriLOSEC) 40 mg capsule, Take 1 capsule (40 mg total) by mouth daily Two tablets daily,Disp: , Rfl: vitamin E 400 unit capsule, Take 1 capsule (400 Units total) by mouth, Disp: , Rfl: Lab Results Component Value Date POTASSIUM 4.0 12/09/2013 BUNSER 5 (L) 12/09/2013 CREATININE 0.50 12/09/2013 Lab Results Component Value Date HGB 9.3 (L) 12/09/2013 HCT 28.2 (L) 12/09/2013 MCV 94.0 12/09/2013 No results found for this or any previous visit (from the past 4 hour(s)). Lab Results Component Value Date POCCHOL 214 09/26/2023 POCHDL 73 09/26/2023 POCTRIG 94 09/26/2023 POCLDL 123 09/26/2023 POCNONHDL 141 09/26/2023 POCCHLPL 214 09/26/2023 Assessment: Diagnoses and all orders for this visit: PAF (paroxysmal atrial fibrillation) (CMS/HCC) (HCC) (Primary) Contraindication to anticoagulation therapy Frequent falls Chest pain, atypical Plan/Recommendations: She has a history of paroxysmal atrial fibrillation with a CHADS2 Vasc score of 4. Her AFib appearsasymptomatic. She is not a candidate for systemic oral anticoagulation due to frequent falls. She has seen Dr. Leggett in consultation for amulet device and had a heart CT last week. We will move forward with scheduling her for the procedure at [facility]. She endorses an atypical chest pain that do not feel needs further evaluation at this point in time. Continue to monitor. Keep the previously scheduled follow-up visit with Dr. Leggett in December. Dr. Leggett will assume her cardiac care now that Dr. Perez has left the practice. 10/16/2023 YASMINE Rankin- Nurse Practitioner with [facility] Cardiology This note is dictated and transcribed using [employer]. Gill Tender variancesmay occur. Despite proofreading, typographical errors may occur. documented in this encounter Plan [...] atrial fibrillation) (CMS/HCC) (HCC)- Primary Atrial fibrillation Contraindication to anticoagulation therapy Frequent falls Chest pain, atypical documented in this encounter Discontinued Medications Medication Sig Discontinue Reason Start Date End Da te diphenhydrAMINE (BENADRYL) 50 mg capsule Take 1 capsule (50 mg total) by mouth once for 1 dose Take 1 capsule (50 mg total) by mouth once for 1 dose 1 hour prior to your procedure at 1 p.m Therapy completed 09/26/2023 10/16/2023 oxybutynin (DITROPAN) 5 mg tablet Take 1 tablet (5 mg total) by mouth 2 (two) times a day Discontinued by another clinician 10/16/2023 documented as of this encounter Historical Medications * This list may reflect changes made after this encounter. acetaminophen (TYLENOL) 325 mg tablet Take 2 tablets (650 mg total) by mouth every 4 (four) hours as needed 03/01/2017 added in this encounter Care Teams Journeyman Mechanic Relationship Specialty Start Date End Date Gadiel Zavala MD [address] [place] [address] PCP - General 06/13/16 Lyudmila Knox, RN Registered Nurse 04/14/17 Jennifer Escalona, RN Registered Nurse 05/10/17 documented as of this encounter
--- OUTSIDE RECORDS SUMMARY | 2024-04-17 11:48 | XMS_ITS | Encounter Summary ---
Author Organization [facility] Healthcare Address [address] [place] [address] Care Team Providers Care Tick Eradicator Name Role Phone Gadiel Zavala MD Primary Care Provider [phone] Lyudmila Knox RN Unavailable Unavailable Jennifer Escalona RN Unavailable Agustina vailable Encounter Details Date Type Department Care Team (Late st Contact Info) Description 11/07/2023 12:15 PM CDT Pre-Admission Testing [facility] Pre Anesthesia Testing [address] [place] [address] Anesthesia Record Procedure Summary Procedure Name Responsible Anesthesiologist Anesthesia Start Time Anesthesia Stop Time PERC MAURA CLOSE W/IMPLANT [id number] Zuhair Kyle MD 11/16/23 1114 11/16/23 1321 [...] of handoff: PACU 1321 An Stop Meds * Agents No agents [...] = 0.6 oz pur e alcohol) social AUDIT-C Answer Date Recorded Q1: How often do you have a drink containing alc ohol? Monthly or less 11/07/2023 Q2: How many drinks containi ng alcohol do you have on a typical day when you are drinking? 1 or 2 11/07/2023 Q3: How often do you have si x or more drinks on one occasion? Never 11/07/2023 Personal Safety Answer Date Recorded Getting School Help Needed Not on file 04/14 Comments No Sex and Gender Information Value Date Recorded Sex Assigned at Not on file Legal Sex Female 3:22 AM [employer] Gender Identity Not on file Sexual Orientation Not on file documented as of this encounter Last Filed Vital Signs Vital Sign Reading Time Taken Comments Blood Pressure 144/85 11/07/2023 12:41 PM CDT Pulse 66 11/07/2023 12:41 PM CDT Temperature 36.8 ??C (98.3 ??F) 11/07/2023 12:41 PM C DT Respiratory Rate 18 11/07/2023 12:41 PM CDT Oxygen Saturation 97% 11/07/2023 12:41 PM CDT Inhaled Oxygen Concentration - - Weight 64.9 kg (143 lb) 11/07/2023 12:41 PM CDT Height 160 cm (5' 3 ) 11/07/2023 12:41 PM CDT Body Mass Index 25.33 11/07/2023 12:41 PM CDT documented in this encounter Miscellaneous Notes * Perioperative Nursing Note - Eloina Rodriguez RN - 11/07/2023 2:00 PM CDT Abnormal labs routed to Dr Leggett, PCP, Wellington Ordaz RN, and Hellen Love RN. Epic message sent to Max for timely notification. * Pre-Procedure Instructions - Eloina Rodriguez RN - 11/07/2023 12:15 PM CDT We are pleased that you and your doctor have chosen [facility] for your surgery. We hope that the following information will help make your visit a pleasant one. Surgery Date: 11/16/23 Arrive at 8:00am [facility] (look for sign reading ???EM[facility] - SUR[facility] CENTER?? ) [address] [place] [address] Before your surgery: Notify your doctor of ANY change in your health such as a cold, sore throat, fever, infection or a change in the problem for which you are having your surgery. Follow any instructions given to you by your doctor or surgeon. One week before surgery (11/09/23) STOP taking: All herbal/vitamin supplements Aleve, Advil, Motrin, Ibuprofen, Excedrin, Naproxen, Meloxicam, Diclofenac (oral & topical) Relafen, Celebrex, Ketorolac (Toradol) or other similar medications Tylenol is okay (unless it is not recommended by your physician). 24 hours before your surgery: Hydrate yourself (water) - if no restrictions. Night before your surgery: DO NOT eat or drink anything after midnight including candy, mints, gum, chewable antacids, and cough drops. Shower instructions: Follow surgeon's instructions for anti-bacterial shower night before and morning of surgery. Before Surgery your body must be thoroughly cleaned. Shower Instructions Using Chlorhexidine gluconate or CHG (brand name: Hibiclens): CHG helps to reduce the bacteria (germs) from the skins surface. First Clean your hair using your normal shampoo. Do this so the antiseptic soap is not washed off by your shampoo. Wash face with warm water and/or your normal soap Move away from the shower stream. Using a clean washcloth and the CHG soap, thoroughly wash from jawline down (avoid the groin area, buttocks, and open wounds). Using a second clean washcloth and CHG soap, wash your groin area, and buttocks. (Do NOT use CHG onthe genital area.) Use enough soap to thoroughly cover your body. CHG soap does not produce much lather. You may need help if some areas cannot easily be reached, such as your back. Wash with the CHG soap for 2-3 minutes then Rinse thoroughly. Dry with a clean towel. Do not use lotions, powders, creams, Vaseline, makeup, or hair products after either shower. Dress in clean pajamas or clothing. Do not shave below the neck on the night before or day of surgery The night before surgery sleep on clean linen Do Not let pets sleep with you Day of surgery: You may brush your teeth and rinse your mouth out. Repeat shower ONLY take these pills with a sip of water: Pre-Surgery Instructions: Medication Instructions DULoxetine DR (CYMBALTA) levothyroxine (SYNTHROID, LEVOTHROID) metoprolol XL (TOPROL-XL) omeprazole (PriLOSEC) If needed You should bring a complete, up-to-date, list of all medications on the day of your surgery/procedure, including any over the counter medications or supplements. Please note on your medication list the last time you took each medication. The healthcare team will ask for this information. Wear comfortable clothes that will not be tight over the area of your surgery If you have an implantable device with a remote, bring the remote with you on the day of surgery. Leave all valuables and jewelry, (including all body piercing jewelry), hairpins, false eyelashes, and/or contact lenses at home. Please bring your photo ID, insurance cards, and medication list (including all [id number] medications) with you. Prescriptions can be filled onsite prior to discharge. Please have your co-pay available. Check in at the Registration Desk. You may have 2 visitors at a time. What to bring if you are spending the night with us: Bring toiletry items such as: robe, slippers, toothbrush, toothpaste, brush or comb. Bring contact lens, hearing aids, glass cases and denture container if you use any of these items. The hospital will provide you with a gown. Questions or concerns: If you have any questions or concerns regarding your procedure, or to cancel your surgery/procedure- contact your surgeon as soon as possible. If you have questions regarding your Pre-Admission Screen/Testing, please call Eloina at . documented in this encounter Plan of Treatment [...] Procedure Name Priority Date/Time Associated Diagnosis Comments ECG 12-LEAD Routine 11/07/2023 1:09 PM CDT EGFR Routine 11/07/2023 12:44 PM CDT DIFFERENTIAL AUTO Routine 11/07/2023 12: 44 PM CDT CBC WITH AUTO DIFFERENTIAL Routine 11/07/2023 12:44 PM CDT APTT Routine 11/07/2023 12:44 PM CDT PROTIME-INR Routine 11/07/2023 12:44 PM CDT TYPE AND SCREEN Timed 11/07/2023 12:44 PM CDT COMPREHENSIVE METABOLIC PANEL Routine 11/07/2023 12:44 PM CDT documented in this encounter Results * ECG 12 lead (11/07/2023 1:09 PM CDT) 11/07/2023 1:09 PM CDT Narrative [facility] - 11/07/2023 1:15 PM CDT Vent Rate: 65 bpm RR Interval: 920 msec [place] Interval: 155 msec QRS Duration: 81 msec QT Interval: 409 msec QTC Interval: 420 msec P-R-T [place]: 18 - 10 - 13 degrees IMPRESSION: SINUS RHYTHM NORMAL ECG Electronically Signed By: Evaristo Gibbs MD us Emilio Leggett MD ECG ORDERABLES Final Result [facility] * eGFR (11/07/2023 12:44 PM CDT) eGFR >90 >=60 mL/min/1. 73 m2 [...] of Race in Diagnosing Kidney Disease, JASN 202). The CKD-EPI equation should not be used for patients with unstable renal function and has not been validated in children and those over 70. Current interpretive data was last reviewed 2021. Blood 11/07/2023 12:4 4 PM CDT 11/07/2023 1:17 PM CDT us Emilio Leggett MD LAB BLOOD ORDERABLES Final Resul t [facility] [address] Department [place] [address] * Differential, auto (11/07/2023 12:44 PM CDT) Neutrophil abs 4.5 1.5 - 6.5 K/cumm Imm gran abs 0.0 0.0 - 0.1 K/cumm [facility] Lymphocyte abs 1.3 0.8 - 3.3 K/cumm [facility] Monocyte abs 0.4 0.2 - 0.8 K/cumm [facility] Eosinophil abs 0.1 0.0 - 0.5 K/cumm [facility] Basophil abs 0.0 0.0 - 0.1 K/cumm [facility] Neutrophil pct 71.6 % [facility] Comment: Interpretive Data Percent cell count reference ranges are not reported, since discordance with absolute values may lead to misinterpretation of CBC data. Current Interpretive Data was last revised on 2017. Imm gran pct 0.3 % [facility] Comment: Interpretive Data Percent cell count reference ranges are not reported, since discordance with absolute values may lead to misinterpretation of CBC data. Current Interpretive Data was last revised on 2017. Lymphocyte pct 20.9 % [facility] Comment: Interpretive Data Percent cell count reference ranges are not reported, since discordance with absolute values may lead to misinterpretation of CBC data. Current Interpretive Data was last revised on 2017. Monocyte pct 5.9 % [facility] Comment: Interpretive Data Percent cell count reference ranges are not reported, since discordance with absolute values may lead to misinterpretation of CBC data. Current Interpretive Data was last revised on 2017. Eosinophil pct 1.1 % [facility] Comment: Interpretive Data Percent cell count reference ranges are not reported, since discordance with absolute values may lead to misinterpretation of CBC data. Current Interpretive Data was last revised on 2017. Basophil pct 0.2 % [facility] Comment: Interpretive Data Percent cell count reference ranges are not reported, since discordance with absolute values may lead to misinterpretation of CBC data. Current Interpretive Data was last revised on 2017. Blood 11/07/2023 12:4 4 PM CDT 11/07/2023 1:17 PM CDT us Emilio Leggett MD LAB BLOOD ORDERABLES Final Resul t [facility] [address] Department [place] [address] * (ABNORMAL) Comprehensive metabolic panel (11/07/2023 12:44 PM CDT) Sodium 133(L) 135 - 145 mmol/L Potassium, pl 4.2 3.3 - 4.9 mmol/L [facility] Chloride 94(L) 97 - 110 mmol/L [facility] CO2 27 22 - 32 mmol/L [facility] Anion gap 12 2 - 15 mmol/L [facility] BUN 7 6 - 25 mg/dL [facility] Creatinine 0.64 0.60 - 1.10 mg/dL [facility] Glucose 98 70 - 199 mg/dL [facility] Comment: Interpretive Data Fasting glucose >/= 126 [...] interpretive data was last revised 2022. Calcium 9.7 8.5 - 10.3 mg/dL [facility] Bilirubin, total 0.4 0.1 - 1.2 mg/dL [facility] Protein, pl 7.4 6.5 - 8.5 g/dL [facility] Albumin 4.5 3.5 - 5.0 g/dL [facility] Alk phos 93 40 - 130 Units/L [facility] ALT 14 7 - 45 Units/L [facility] AST 22 10 - 45 Units/L [facility] Blood 11/07/2023 12:4 4 PM CDT 11/07/2023 1:17 PM CDT Emilio Leggett MD LAB BLOOD ORDERABLES Final Resul t Performing Organization Address City/[facility] Co de Phone Number [facility] [address] [place] [address] * aPTT (11/07/2023 12:44 PM CDT) aPTT 32 28 - 38 sec Comment: Interpretive Data Heparin therapeutic range: 66.0 - 100.0 seconds. Range based on correlation with therapeutic heparin activity range of 0.3 - 0.7 Units/mL. Current interpretive data was last revised on 2023. Blood 11/07/2023 12:4 4 PM CDT 11/07/2023 1:17 PM CDT us Emilio Leggett MD LAB BLOOD ORDERABLES Final Resul t Performing Organization Address City/[facility]/ZIP Co de Phone Number [facility] [address] [address] Department [place] [address] * Protime-INR (11/07/2023 12:44 PM CDT) Pathologist [facility] PT 10.5 10.3 - 13.7 sec INR 0.92 0.90 - 1.20 [facility] Comment: Interpretive data Oral anticoagulant therapeutic ranges: Venous thromboembolism prophylaxis or treatment: 2.0-3.0 CARDIOLOGY Standard range: 2.0-3.0 High-intensity range: 2.5-3.5 Refer to indication-specific guidelines for appropriate target ranges for prosthetic heart valve replacement. Current interpretive data was last revised on 2019. Blood 11/07/2023 12:4 4 PM CDT 11/07/2023 1:17 PM CDT us Emilio Leggett MD LAB BLOOD ORDERABLES Final Resul t Performing Organization Address [facility] Co de Phone Number [facility] [address] [place] [address] * CBC with auto differential (11/07/2023 12:44 PM CDT) Pathologist [facility] WBC 6.2 3.8 - 9.9 K/cumm Hgb 12.8 11.9 - 15.5 g/dL [facility] Hct 39.5 35.6 - 45.5 % [facility] Plt 316 150 - 400 K/cumm [facility] MPV 9.5 9.1 - 12.3 fL [facility] RBC 4.28 3.90 - 5.20 M/cumm [facility] MCV 92.3 81.3 - 96.4 fL [facility] MCH 29.9 27.1 - 33.3 pg [facility] MCHC 32.4 32.3 - 35.7 g/dL [facility] RDW CV 14.1 11.1 - 14.9 % [facility] RDW SD 47.6 35.7 - 48.1 fL [facility] NRBC abs 0.00 0.00 - 0.01 K/cumm [facility] Blood 11/07/2023 12:4 4 PM CDT 11/07/2023 1:17 PM CDT Emilio Leggett MD LAB BLOOD ORDERABLES Final Resul t Performing Organization Address City/[facility]/ZIP Co de Phone Number [facility] [address] [address] Department [place] [address] * Type and screen (11/07/2023 12:44 PM CDT) Zoraida, indirect Negative ABO Rh A Positive [facility] Blood 11/07/2023 12:4 4 PM CDT 11/07/2023 1:17 PM CDT Narrative [facility] - 11/07/2023 2:08 PM CDT Has the patient had Daratumumab or Isatuximab in the past 6 months?->Unknown Emilio Leggett MD LAB BLOOD BANK TEST ORDERABLES F inal Result Performing Organization Address City/[facility] Co de Phone Number [facility] [address] Department [place] [address] documented in this encounter Visit Diagnoses Not on filedocumented in this encounter Historical Medications * This list may reflect changes made after this encounter. DULoxetine DR (CYMBALTA) 60 mg capsule Take 1 capsule (60 mg total) by mouth 2 (two) times a day coffee xt/phosphatidyl serine (NEURIVA ORIGINAL ORAL) Take 1 capsule by mouth daily ferrous sulfate 325 mg (65 mg of elemental iron) tabletIndication s:Iron Deficiency Anemia Take 1 tablet (65 mg of elemental iron total) by mouth daily with breakfast added in this encounter Care Teams Tick Eradicator Relationship Specialty Start Date End Date Gadiel Zavala MD [address] [address] PCP - General 06/13/16 Lyudmila Knox, RN Registered Nurse 04/14/17 Jennifer Escalona, RN Registered Nurse 05/10/17 documented as of this encounter
--- OUTSIDE RECORDS SUMMARY | 2024-04-17 11:48 | XMS_ITS | Encounter Summary ---
Author Organization [facility] Address [address] [place] [address] Care Team Providers Care Drywall Sander Name Role Phone Gadiel Zavala MD Primary Care Provider [phone] Lyudmila Knox RN Unavailable Unavailable Jennifer Escalona RN Unavailable Agustina vailable Reason for Referral * Cardiology (Routine) - Closed Specialty Diagnoses / Procedures Referred By Delores vines Referred To Contact Diagnoses Presence of Amulet [...] ECHO (HUMBERTO) WO DOPPLER/CF W CONTRAST Emilio Leggett MD [address] [place] [address] Phone: tel: fax: [address] [address] Referral ID Status Reason Start Date Expiration Date Visits Re quested Visits Authorized [id number] Closed 01/02/2024 01/31/2025 1 1 Reason for Visit * Cardiology (Routine) - Closed Specialty Diagnoses / Procedures Referred By Delores vines Referred To Contact Diagnoses Presence of Amulet [...] ECHO (HUMBERTO) WO DOPPLER/CF W CONTRAST Emilio Leggett MD [address] [facility] [address] [place] [address] Phone: tel: fax: [address] [address] Referral ID Status Reason Start Date Expiration Date Visits Re quested Visits Authorized [id number] Closed 01/02/2024 01/31/2025 1 1 Encounter Details Date Type Department Care Team (Latest Contact Info) Description 02/08/2024 9:33 AM CDT - 02/08/2024 11:59 PM CDT Hospital Encounter [facility] Cardiac Catheterization Lab [address] [place] [id number] Emilio Leggett MD [id number] [place] [address] Presence of Amulet left atrial appendage closure device Discharge Disposition: Discharge to home or self care Social History Tobacco Use Types Packs/Day Years Used Date Smoking Tobacco: Former Cigarettes Q uit: 04/14/1987 Smokeless Tobacco: Never Alcohol Use Standard Drinks/Week Comments Yes 0 (1 standard drink = 0.6 oz pur e alcohol) social [place] Utilities Answer Date Recorded In the past 12 months has [employer], gas, oil, or water [place] threatened to shut off services in your [...] week 11/17/2023 How often do you attend [facility] or mormon services? 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 You will be awake and able to follow directions without anxiety or pain. You will remember little to none of the procedure. You may feel tired, weak, or unsteady on your feet after you get sedation. You may also have trouble concentrating or short-term memory loss. These symptoms should go away in 24 hours or less. DISCHARGE INSTRUCTIONS: Call 911 or have someone else call for any of the following: You have sudden trouble breathing. You cannot be woken. Seek care immediately if: You have a severe headache or dizziness. Your heart is beating faster than usual. Contact your healthcare provider if: You have a fever over 100*F You have nausea or are vomiting for more than 8 hours after the procedure. Your skin is itchy, swollen, or you have a rash. You have questions or concerns about your condition or care. Self-care: Have someone stay with you for 24 hours. This person can drive you to errands and help you do things around the house. This person can also watch for problems. Rest and do quiet activities. Stand up slowly to prevent dizziness and falls. Take short walks around the house with another person. Do not drive or use dangerous machines or tools for 48 hours. You may injure yourself or others. Examples include a lawnmower, saw, or drill. Do not make important decisions for 24 hours. For example, do not sign important papers or invest money. Drink liquids as directed. Liquids help flush the sedation medicine out of your body. Ask how much liquid to drink each day and which liquids are best for you. Eat small, frequent meals to prevent nausea and vomiting. Start with clear liquids such as juice orbroth. If you do not vomit after clear liquids, you can eat your usual foods. Do not drink alcohol or take medicines that make you drowsy. This includes medicines that help you sleep and anxiety medicines. Ask your healthcare provider if it is safe for you to take pain medicine. Follow up with your healthcare provider as directed: Write down your questions so you remember to ask them during your visits. Transesophageal Echocardiogram Discharge Instructions Diet Resume your normal diet unless instructed by your doctor. Activity 1. No driving or operating heavy equipment for 24 hours. 2. Do not make any critical or legal decisions for 24 hours. 3. No cooking for 24 hours. 4. You need to have a responsible adult with you for 24 hours. General Instructions 1. It is normal for your throat to be sore for a couple of days. 2. You may avoid spicy, crunchy or hot food until throat soreness has resolved. For any concerns or questions, please call your Physician. [phone] documented in this encounter Medications at Time [...] 1 capsule (400 Units total) by mouth losartan (COZAAR) 25 mg tabletIndications: Essential hypertension Take 1 tablet by mouth once daily 90 tablet 01/08/2024 4 documented as of this encounter Discharge Disposition Disposition Code Departure Means Destination Discharge to home or self care documented in this encounter H&P Notes * Emilio Leggett MD - 02/08/2024 11:30 AM CDT General H&P HPI: 73 y.o. female with paroxysmal atrial fibrillation [...] She is now status post Successful implantation of22 Amplatzer Amulet left atrial appendage closure device on 11/16/2023. Patient was brought to the hospital today for transesophageal echocardiogram to check for any device related thrombosis or any significant mateo device leak Past Medical History: Diagnosis Date Anemia Arthritis [...] double vision (unsuccessful) HYSTERECTOMY SPINE SURGERY lumbar (Not in a hospital admission) Allergies Allergen Reactions Gadolinium-Containing Contrast Media Hives [...] Types: Cigarettes Quit date: 04/14/1987 Years since quittin.8 Smokeless tobacco: Never Substance and Sexual Activity Drug use: No Sexual activity: Defer Alcohol Use: Not At Risk (11/16/2023) AUDIT-C Frequency of Alcohol Consumption: Monthly or less Average Number of Drinks: 1 or 2 Frequency of Binge Drinking: Never Family History Problem Relation Age of Onset Hypertension Mother Leukemia Father Review of Systems Objective Vitals: Arrival Vitals [02/08/24 0952] Temp 36.5 ??C (97.7 ??F) Pulse 66 Resp 17 BP 146/90 SpO2 100 % Temp src Oral Heart Rate Source Monitor Patient Position BP Location FiO2 (%) 24hr Min/Max: Temp Min: 36.5 ??C (97.7 ??F) Max: 36.5 ??C (97.7 ??F) Pulse Min: 66 Max: 66 BP Min: 146/90 Max: 146/90 Resp Min: 17 Max: 17 SpO2 Min: 100 % Max: 100 % Most Recent : Vitals: 02/08/24951 BP: 146/90 Pulse: 66 Resp: 17 Temp: 36.5 ??C (97.7 ??F) SpO2: 100% No intake/output data recorded. No intake/output data [...] exposed areas), no cyanosis Lab/Radiology/Diagnostic Review: Assessment Active Problems: No Active Problems: There are no active problems currently on the Problem List. Please update the Problem List and refresh. Plan transesophageal echocardiogram documented in this encounter Nursing Notes * Anna Costa RN - 02/08/2024 11:30 AM CDT Discharge instructions read and given to pt. Pt verbalized understanding of discharge and medication instructions. * Anna Costa RN - 02/08/2024 11:30 AM CDT Patient discharged via wheelchair. Discharge paperwork given to patient and patient verbalized understanding. IV removed at this time. Skin dry and intact. Vital signs stable. documented in this encounter Miscellaneous Notes * Pre-Sedation Documentation - Emilio Leggett MD - 02/08/2024 11:30 AM CDT Sedation Plan ASA 2 - Mild systemic disease Sedation/Anesthesia Plan - moderate sedation Mallampati class: II. Risks, benefits, and alternatives discussed with patient. Last PO Intake: Patient NPO since midnight documented in this encounter Plan of Treatment [...] Procedure Name Priority Date/Time Associated Diagnosis Comments TRANSESOPHAGEAL ECHO (HUMBERTO) W DOPPLER/CF WO CONTRAST Routine 02/08/2024 11:52 AM CDT Presence of Amulet left atrial appendage closure device documented in this encounter Results * TRANSESOPHAGEAL ECHO (HUMBERTO) [...] 1132, total time ?? 12 minutes (CPT 79318) ANESTHESIA: ??Versed. ??2 mg, ??Fentanyl ??50 mcg, Benzocaine [place], Viscous lidocaine. ??Dee Costa RN was trained [...] was used to complete this document, therefore, rehabilitation nurse variances may occur. Emilio Leggett MD, [facility] 02/08/24 Emilio Leggett MD CV ECHO PROCEDURES Final Result documented in this encounter Visit Diagnoses Diagnosis Presence of Amulet left atrial appendage closure device documented in this encounter Administered Medications Inactive Administered Medications - up to 3 most recent administrations Medication Order MAR Action Action Date Dose Rate Site fentaNYL (SUBLIMAZE) preservative free injection intravenous, Code/trauma/sedation medication, Starting on Juany 02/08/24 at 1124, Intra-Procedure (CV) Given 02/08/2024 11:25 AM CDT 25 mcg Given 02/08/2024 11:21 AM CDT 25 mcg midazolam (VERSED) 1 mg/mL preservative free injection Administer over 2 Minutes, Code/trauma/sedation medication, Starting on Juany 02/08/24 at 1121, Intra-Procedure (CV) Given 02/08/2024 11:25 AM CDT 1 mg Given 02/08/2024 11:21 AM CDT 1 mg documented in this encounter Discontinued Medications Medication Sig Discontinue Reason Start Date End Da te clopidogreL (PLAVIX) 75 mg tabletIndications: ry artery disease Take 1 tablet (75 mg total) by mouth daily Therapy completed 11/18/2023 02/08/2024 documented as of this encounter Orders Discharge Count Last Ordered Date First Orde red Date DISCHARGE PATIENT 1 02/08/2024 documented in this encounter Care Teams Drywall Sander Relationship Specialty Start Date End Date Gadiel Zavala MD [address] [employer] [address] PCP - General 06/13/16 Lyudmila Knox, RN Registered Nurse 04/14/17 Jennifer Escalona, LOGAN Registered Nurse 05/10/17 documented as of this encounter
--- OUTSIDE RECORDS SUMMARY | 2024-04-17 11:49 | XMS_ITS | Encounter Summary ---
Author Organization [facility] Address [address] [place] [address] Care Team Providers Care Armature Straightener Name Role Phone Gadiel Zavala MD Primary Care Provider [phone] Lyudmila Knox RN Unavailable Unavailable Jennifer Escalona RN Unavailable Agustina vailable Reason for Referral * Cardiology (Routine) - Authorized Specialty Diagnoses / Procedures Referred By Contac t Referred To Contact Cardiology Diagnoses PAF (paroxysmal atrial fibrillation) (CMS/HCC) (HCC) Syncope and collapse Procedures DEVICE CHECK - IN OFFICE Emilio Leggett MD [address] [address] Phone: tel: fax: [facility] Referral ID Status Reason Start Date Expiration Date V isits Requested Visits Authorized [id number] Authorized 09/29/2023 10/28/2024 1 1 * Cardiology (Routine) - Authorized Specialty Diagnoses / Procedures [facility]erred To Contact Cardiology Diagnoses PAF (paroxysmal atrial fibrillation) (CMS/HCC) (HCC) Syncope and collapse Procedures DEVICE CHECK - REMOTE Emilio Leggett MD [address] [address] Phone: tel: fax: [facility] Referral ID Status Reason Start Date Expiration Date V isits Requested Visits Authorized [id number] Authorized 09/29/2023 03/30/2025 1 1 * Cardiology (Routine) - Authorized Specialty Diagnoses / Procedures Referred By Contac t Referred To Contact Cardiology Diagnoses PAF (paroxysmal atrial fibrillation) (CMS/HCC) (HCC) Syncope and collapse Procedures DEVICE CHECK - IN OFFICE Emilio Leggett MD [address] [address] Phone: tel: fax: [facility] Referral ID Status Reason Start Date Expiration Date V isits Requested Visits Authorized [id number] Authorized 09/29/2023 10/28/2024 1 1 * Cardiology (Routine) - Authorized Specialty Diagnoses / Procedures Referred By Contac t Referred To Contact Cardiology Diagnoses PAF (paroxysmal atrial fibrillation) (CMS/HCC) (HCC) Syncope and collapse Procedures DEVICE CHECK - REMOTE Emilio Leggett MD [address] [address] Phone: tel: fax: [facility] Referral ID Status Reason Start Date Expiration Date V isits Requested Visits Authorized [id number] Authorized 09/29/2023 03/30/2025 1 1 * Cardiology (Routine) - Authorized Specialty Diagnoses / Procedures Referred By Contac t Referred To Contact Cardiology Diagnoses PAF (paroxysmal atrial fibrillation) (CMS/HCC) (HCC) Syncope and collapse Procedures DEVICE CHECK - REMOTE Emilio Leggett MD [address] [address] Phone: tel: fax: [facility] Referral ID Status Reason Start Date Expiration Date V isits Requested Visits Authorized [id number] Authorized 09/29/2023 03/30/2025 1 1 * Cardiology (Routine) - Authorized Specialty Diagnoses / Procedures Referred By Contac t Referred To Contact Cardiology Diagnoses PAF (paroxysmal atrial fibrillation) (CMS/HCC) (HCC) Syncope and collapse Procedures DEVICE CHECK - REMOTE Emilio Leggett MD [address] [place], [place] [address]MICHELLE HENDRICKS [address] [address] Phone: tel: fax: [facility] Referral ID Status Reason Start Date Expiration Date V isits Requested Visits Authorized [id number] Authorized 09/29/2023 03/30/2025 1 1 * Cardiology (Routine) - Authorized Specialty Diagnoses / Procedures Referred By Contmarianela t Referred To Contact Cardiology Diagnoses PAF (paroxysmal atrial fibrillation) (CMS/HCC) (HCC) Syncope and collapse Procedures DEVICE CHECK - REMOTE Emilio Leggett MD [address] [address] Phone: tel: fax: [facility] Referral ID Status Reason Start Date Expiration Date V isits Requested Visits Authorized [id number] Authorized 09/29/2023 03/30/2025 1 1 Encounter Details Date Type Department Care Team (Late st Contact Info) Description 09/29/2023 Orders Only [facility] Cardiology [address] [place] [phone] Emiilo Leggett MD [address] [address] PAF (paroxysmal atrial fibrillation) (CMS/HCC) (HCC) (Primary Dx); Syncope and collapse Social History Tobacco Use Types Packs/Day Years Used Date Smoking Tobacco: Former Cigarettes Q uit: 04/14/1987 Smokeless Tobacco: Never Alcohol Use Standard Drinks/Week Comments Yes 0 (1 standard drink = 0.6 oz pur e alcohol) social Personal Safety Answer Date Recorded Getting School Help Needed Not on file 12/15 /2023 Comments No Sex and Gender Information Value Date Recorded Sex Assigned at Not on file 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 Gender Identity Not on file Sexual Orientation Not on file documented as of this encounter Plan of Treatment Scheduled Orders Name Type Priority Associated Diagnoses Orde r Schedule DEVICE CHECK - REMOTE Cardiac Services Routine PAF (paroxysmal atrial fibrillation) ([facility] ([facility]) Syncope and collapse Expected: 11/10/2023, Expires: 04/30/2030 DEVICE CHECK - REMOTE Cardiac Services Routine PAF (paroxysmal atrial fibrillation) ([facility]) ([facility]) Syncope and collapse Expected: 12/22/2023, Expires: 04/30/2030 DEVICE CHECK - REMOTE Cardiac Services Routine PAF (paroxysmal atrial fibrillation) ([facility] ([facility]) Syncope and collapse Expected: 09/29/2023, Expires: 04/30/2030 DEVICE CHECK - REMOTE Cardiac Services Routine PAF (paroxysmal atrial fibrillation) ([facility] ([facility]) Syncope and collapse Expected: 09/29/2023, Expires: 04/30/2030 DEVICE CHECK - IN OFFICE Cardiac Services Routine PAF (paroxysmal atrial fibrillation) ([facility] ([facility]) Syncope and collapse Expected: 09/29/2023, Expires: 04/30/2030 DEVICE CHECK - REMOTE Cardiac Services Routine PAF (paroxysmal atrial fibrillation) ([facility] ([facility]) Syncope and collapse Expected: 09/29/2023, Expires: 04/30/2030 DEVICE CHECK - IN OFFICE Cardiac Services Routine PAF (paroxysmal atrial fibrillation) ([facility] ([facility]) Syncope and collapse Expected: 02/26/2024, Expires: 04/30/2031 documented as of this encounter Goals Goal Patient Goal Type Associated Problems Recent Progress Patient-Stated? Author Increase physical activity Exercise Lyudmila Shah, RN Note: She is doing arm and leg exercises from Pt. She was in rehab after neck surgery for 2 weeks in March 2017 documented as of this encounter Visit Diagnoses Diagnosis PAF (paroxysmal atrial fibrillation) ([facility] ([facility])- Primary Atrial fibrillation Syncope and collapse documented in this encounter Care Teams Armature Straightener Relationship Specialty Start Date End Date Gadiel aZvala MD [address] [address] PCP - General 06/13/16 Lyudmila Knox, RN Registered Nurse 04/14/17 Jennifer Escalona, RN Registered Nurse 05/10/17 documented as of this encounter
--- OUTSIDE RECORDS SUMMARY | 2024-04-17 11:49 | XMS_ITS | Encounter Summary ---
Author Organization [facility] Address [address] [place] [address] Care Team Providers Care Concrete Boom Pump Operator Name Role Phone Gadiel Zavala MD Primary Care Provider [phone] Lyudmila Knox RN Unavailable Unavailable Jennifer Escalona RN Unavailable Agustina vailable Reason for Visit * Reason Comments S/P loop recorder explant On 08/08/22 Atrial Fibrillation Hypertension Encounter Details Date Type Department Care Team (Latest Contact Info) Description 10/07/2022 11:15 AM CDT Office Visit [facility] Cardiology [address] [place] [address] Bobo Perez MD [address] [place], [place] [id number] Paroxysmal atrial fibrillation (CMS/HCC) (HCC) (Primary Dx); Contraindication to anticoagulation therapy; Primary hypertension; Frequent falls; Status post placement of implantable loop recorder; Mixed hyperlipidemia Social History Tobacco Use Types Packs/Day Years Used Date Smoking Tobacco: Former Cigarettes Q uit: 04/14/1987 Smokeless Tobacco: Never Alcohol Use Standard Drinks/Week Comments Yes 0 (1 standard drink = 0.6 oz pur e alcohol) social Comments No Sex and Gender Information Value Date Recorded Sex Assigned at Not on file Legal 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 Gender Identity Not on file Sexual Orientation Not on file documented as of this encounter Last Filed Vital Signs Vital Sign Reading Time Taken Comments Blood Pressure 124/78 10/07/2022 11:29 AM CDT Pulse 66 10/07/2022 11:29 AM CDT Temperature - - Respiratory Rate - - Oxygen Saturation 97% 10/07/2022 11: 29 AM CDT Inhaled Oxygen Concentration - - Weight 58.4 kg (128 lb 11.2 oz) 023 11:29 AM CDT Height 160 cm (5' 3 ) 10/07/2022 11:29 AM CDT Body Mass Index 22.8 10/07/2022 11:29 AM CDT documented in this encounter Progress Notes * Bobo Perez MD - 10/07/2022 11:15 AM CDT Images from the original note were not included. DATE OF VISIT: 10/07/2022 CHIEF COMPLAINT Chief Complaint Patient presents with ??? S/P loop recorder explant On 08/08/22 ??? Atrial Fibrillation ??? Hypertension ASSESSMENT Diagnoses and all orders for this visit: Paroxysmal atrial fibrillation (CMS/HCC) (HCC) (Primary) Contraindication to anticoagulation therapy Primary hypertension Frequent falls Status post placement of implantable loop recorder Mixed hyperlipidemia PLAN/RECOMMENDATIONS Stable, A. Fib paroxysmal only documented on 1 occasion thus far. Continue current medical therapy and systemic anticoagulation for stroke risk reduction. CHADS2 Vasc score 3. Explained at great length with the patient and her systemic anticoagulation advised for adequate stroke risk reduction. However, patient has relative contraindication due to frequent falls and history of head injuryand is for potential catastrophic intracerebral hemorrhage. Continue aspirin 81 mg daily although they are aware this is an inadequate stroke risk reduction strategy. We discussed at length referral for left atrial appendage occlusion device consideration. She has only 1 previously documented episode of AFib with RVR. Thirty day foundry tender to assess for recurrent AFib further risk stratification. Recommendations to follow. -she continues to have frequent falls. Thirty day foundry tender without documented recurrence of AFib/flutter. However, patient at elevated risk for stroke and unless recurrence noted I would notfeel referral for left atrial appendage occlusion would be most appropriate. Continue loop recorder interrogations for more definitive documentation of AFib burden and justification for LAAO device implantation as we have not yet seen AF recurrence. BP controlled, goal less than 140/90 mm Hg. Monitor BP on routine basis. Call with readings. Continue consistent cardiovascular exercise, weight loss, medication compliance, and low-sodium diet. -continue Toprol-XL 125 mg daily, Losartan 25 mg daily. -Fall risk more likely related to weakness and instability due to her back and neck problems as they report and not medication related. She has been falling for years now. Lipids personally reviewed 03/29/22 LDL 155, poorly controlled with goal LDL<100. Continue medical therapy and lifestyle modification. Continue Atorvastatin 20mg qhs for now and routine lipid monitoring. Will need to increase dosing but given circumstances and fall risk will discuss in more detai l at next visit. Ambulate with extreme caution to avoid risk for falls and bleeding. Follow-up with PCP. Consider physical therapy. 5. Routine loop recorder checks monthly as scheduled. No AFib yet on personal review of 08/2022 check, NSR, occ PVC's. 6. CP atypical likely musculoskeletal pains occur mostly lying down, non exertional, random. Monitor and report any new concerns. She does not feel this is heart related, discussed stress test if worsened but she does not feel is necessary. Over 50% of this visit counseling A. Fib, HTN, lipids, medications, lifestyle modification. Follow up in the office in 2 months or sooner as needed. Thank you for allowing me the privilege of participating in the care this very pleasant patient. Please do not hesitate to contact me with any additional questions or concerns. JP Kaitlin Bond is a 72 y.o. female with a PMHx of hypertension, hyperlipidemia, recent diagnosiscolonic adenocarcinoma, and atrial fibrillation. This is a patient who presented to [facility] for laparoscopic right hemicolectomy on October 13, [...] her hospitalization. 11/17/2021 Hospital follow-up with [facility] - Kaitlin Bond comes to the office [...] syncope. Taking ASA 81mg daily. Thirty day foundry tender worn no AFib noted. 10/07/22 no issues with loop placed 07/2022. Coughing a lot notes some intermittent random CP L and R mild when lying down. Not hurting with coughing per se. Dizzy, has a lot of pain in neck and back, otherwise ok. Still having recurrent falls, last time this AM hurt her knee. No arrythias yet on looprecorder. MEDICAL HISTORY Past Medical History: Diagnosis Date ??? Anemia ??? Arthritis ??? Awareness under anesthesia ??? Chronic back pain ??? Depression ??? GERD (gastroesophageal reflux disease) ??? Hyperlipidemia ??? Hypertension ??? Hypothyroidism ??? Neuropathy ([facility]) SOCIAL HISTORY reports that she quit smoking about 35 years ago. Her smoking use included cigarettes. She has never used smokeless tobacco. She reports that she does not use drugs. No alcohol history on file. FAMILY HISTORY family history includes Hypertension in her mother; Leukemia in her father. MEDICATIONS HOME MEDICATIONS : aspirin (Adult Low Dose Aspirin) 81 mg enteric coated tablet atorvastatin (LIPITOR) 20 mg tablet eszopiclone (LUNESTA) tablet levothyroxine (SYNTHROID, LEVOTHROID) 50 mcg tablet losartan (COZAAR) 25 mg tablet metoprolol XL (TOPROL-XL) 100 mg 24 hr tablet metoprolol XL (TOPROL-XL) 25 mg extended release tablet omeprazole (PriLOSEC) 40 mg capsule oxybutynin (DITROPAN) 5 mg tablet vitamin E 400 unit capsule amLODIPine (NORVASC) 10 mg tablet ALLERGIES Allergies Allergen Reactions ??? Dye Hives Was getting MRI and developed hives while dye infusion. ??? Adhesive Tape-Silicones Rash Reaction: RASH REVIEW OF SYSTEMS Review of Systems Constitutional: Positive for malaise/fatigue. Negative for decreased appetite, diaphoresis, fever and night sweats. HENT: Negative for hearing loss and nosebleeds. Eyes: Negative for blurred vision and pain. Cardiovascular: Negative for chest pain, claudication, dyspnea on exertion, irregular heartbeat, leg swelling, near-syncope, orthopnea, palpitations and syncope. Respiratory: Negative for cough, hemoptysis, shortness of breath, snoring and wheezing. Endocrine: Negative for cold intolerance and heat intolerance. Hematologic/Lymphatic: Negative for bleeding problem. Does not bruise/bleed easily. Skin: Negative for color change, itching, rash and suspicious lesions. Musculoskeletal: Positive for arthritis, back pain, falls and joint pain. Negative for muscle weakness and myalgias. Gastrointestinal: Negative for abdominal pain, heartburn, hematemesis, melena and nausea. Genitourinary: Negative for dysuria, hematuria and nocturia. Neurological: Negative for excessive daytime sleepiness, dizziness, focal weakness, headaches, light-headedness, loss of balance and weakness. Psychiatric/Behavioral: Negative for altered mental status, depression and memory loss. The patientis not nervous/anxious. Allergic/Immunologic: Negative for environmental allergies. All other systems reviewed and are negative. PHYSICAL EXAM Vitals BP 124/78 (BP Location: Right arm, Patient Position: Sitting) Pulse 66 Ht 160 cm (5' 3 ) Wt 58.4 kg (128 lb 11.2 oz) SpO2 97% BMI 22.80 kg/m?? Weight: 58.4 kg (128 lb 11.2 oz) Height: 160 cm (5' 3 ) Body mass index is 22.8 kg/m??. Physical Exam Vitals reviewed. Constitutional: General: She is not in acute distress. Appearance: Normal appearance. She is well-developed. She is not diaphoretic. Comments: Wearing a mask HENT: Head: Normocephalic and atraumatic. Right Ear: External ear normal. Left Ear: External ear normal. Nose: Nose normal. Mouth/Throat: Mouth: Mucous membranes are moist. Dentition: Normal dentition. Eyes: General: Lids are normal. No scleral icterus. Extraocular Movements: Extraocular movements intact. Conjunctiva/sclera: Conjunctivae normal. Neck: Thyroid: No thyromegaly. Vascular: Normal carotid pulses. No carotid bruit, hepatojugular reflux or JVD. Trachea: No tracheal deviation. Cardiovascular: Rate and Rhythm: Normal rate and regular rhythm. Pulses: Normal pulses and intact distal pulses. No decreased pulses. Heart sounds: Normal heart sounds, S1 normal and S2 normal. Heart sounds not distant. No murmur heard. No friction rub. No gallop. No S3 or S4 sounds. Pulmonary: Effort: Pulmonary effort is normal. No respiratory distress. Breath sounds: Normal breath sounds. No wheezing or rales. Chest: Chest wall: No tenderness. Abdominal: General: Bowel sounds are normal. There is no distension. Palpations: Abdomen is soft. There is no mass. Tenderness: There is no abdominal tenderness. There is no guarding or rebound. Musculoskeletal: General: No tenderness or deformity. Normal range of motion. Cervical back: Normal range of motion and neck supple. Right lower leg: No edema. Left lower leg: No edema. Comments: In wheelchair Lymphadenopathy: Cervical: No cervical adenopathy. Skin: General: Skin is warm and dry. Coloration: Skin is not pale. Findings: No ecchymosis, erythema, petechiae or rash. Nails: There is no clubbing. Neurological: General: No focal deficit present. Mental Status: She is alert and oriented to person, place, and time. Mental status is at baseline. Cranial Nerves: No cranial nerve deficit. Motor: No abnormal muscle tone. Coordination: Coordination normal. Psychiatric: Mood and Affect: Mood normal. Speech: Speech normal. Behavior: Behavior normal. Behavior is cooperative. Thought Content: Thought content normal. Judgment: Judgment normal. LABS AND OTHER DIAGNOSTIC TESTS Lab Results Component Value Date HGB 9.3 (L) 12/09/2013 HCT 28.2 (L) 12/09/2013 CREATININE 0.50 12/09/2013 POTASSIUM 4.0 12/09/2013 BUNSER 5 (L) 12/09/2013 Results for orders placed or performed in visit on 03/29/22 POCT lipid panel Result Value Ref Range Cholesterol, POC 240 mg/dL HDL, POC 66 mg/dL Triglycerides, POC 95 mg/dL LDL, Direct, POC 155 mg/dL Chol/HDL Ratio, POC 2.3 Non-HDL Cholesterol, POC 174 mg/dL Cholesterol Total, POC 240 mg/dL 05/04/22 AMBULATORY R D MANAGER REPORT Type of monitor : 30 day event monitor; time monitored 22 days, 9 hours, 8 minutes Date of the study/Enrollment period: 03/29/2022-04/30/2022 Indication: Paroxysmal atrial fibrillation Quality of the study: Adequate Interpretation: Predominant underlying rhythm is sinus rhythm, heart rate ranges between 50 beats per minute to 120 beats per minute, average heart rate 66 beats per minute. Occasional PACs and PVCs were noted with a burden of less than 1% each for the duration of the study. No atrial fibrillation or flutter was noted. No significant heart blocks or pauses. No symptoms reported. Conclusions: Predominant underlying rhythm is sinus rhythm, average heart rate 66 beats per minute. Occasional PACs and PVCs. No atrial fibrillation or flutter was noted. No symptoms reported. I have personally reviewed and analyzed EKG, electronic medical record, and bloodwork/lipids. Reviewed [facility] records, 12 lead EKG 10/16/2021 AFib RVR [address] abnormality consider ischemia Harleen Perez MD, [facility] This note is dictated and transcribed using Stem [employer] Software. Chief Creative Officer variancesmay occur. Despite proofreading, typographical errors may [...] atrial fibrillation (CMS/HCC) (HCC)- Primary Atrial fibrillation Contraindication to anticoagulation therapy Primary hypertension Unspecified essential hypertension Frequent falls Status post placement of implantable loop recorder Mixed hyperlipidemia documented in this encounter Discontinued Medications Medication Sig Discontinue Reason Start Date End Da te amLODIPine (NORVASC) 10 mg tablet Take 1 tablet (10 mg total) by mouth daily 03/03/2017 10/07/2022 documented as of this encounter Care Teams Concrete Boom Pump Operator Relationship Specialty Start Date End Date Gadiel Zavala MD [address] [address] PCP - General 06/13/16 Lyudmila Knox, RN Registered Nurse 04/14/17 Jennifer Escalona, RN Registered Nurse 05/10/17 documented as of this encounter
--- OUTSIDE RECORDS SUMMARY | 2024-04-17 11:49 | XMS_ITS | Encounter Summary ---
Author Organization [facility] Address [address] [place] [address] Care Team Providers Care Irrigation Foreman Name Role Phone Gadiel Zavala MD Primary Care Provider [phone] Lyudmila Knox RN Unavailable Unavailable Jennifer Escalona RN Unavailable Agustina vailable Reason for Visit * Cardiology (Routine) - Closed Specialty Diagnoses / Procedures Referred By Delores t Referred To Contact Diagnoses Paroxysmal atrial fibrillation (CMS/HCC) (HCC) Syncope and collapse Procedures DEVICE CHECK - REMOTE Bobo Perez MD Phone: tel: fax: Referral ID Status Reason Start Date Expiration Date Visits Re quested Visits Authorized [id number] Closed 06/06/2023 12/04/2024 1 1 Encounter Details Date Type Department Care Team (Latest Contact Info) Description 07/17/2023 8:45 AM CDT Ancillary Procedure [facility] Cardiology [address] [place] [phone] Status post placement of implantable loop recorder [...] on file 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 Patient had a routine [facility] remote transmission of their implantable loop recorder on 07/17/2023. Medications: ??ASA 81 mg, Toprol-XL. Interrogation of the patients device demonstrates that the Linq is functioning appropriately ?? (0) Symptom events Auto Device detected events of, (0) Pause, (0) Bradycardia, (8) Tachy, longest detected July 06 at 6:44 p.m., SVT for 2 hours 57 minutes in duration. (0) AT, (0) AF, Presenting Rhythm: ??NSR at 60 bpm Battery: Good Plan: 1) Routine Remote with Tachy events. 2) Continue to monitor remotely. [facility] Device Boiler House Mechanic Bobo Perez MD [facility] PROC EDURES Final Result documented in this encounter Visit Diagnoses Diagnosis Status post placement of implantable loop recorder- Primary Paroxysmal atrial fibrillation (CMS/HCC) (HCC) Atrial fibrillation Syncope and collapse documented in this encounter Care Teams Irrigation Foreman Relationship Specialty Start Date End Date Gadiel Zavala MD [address] [address] PCP - General 06/13/16 Lyudmila Knox, RN Registered Nurse 04/14/17 Jennifer Escalona, RN Registered Nurse 05/10/17 documented as of this encounter
--- OUTSIDE RECORDS SUMMARY | 2024-04-17 11:49 | XMS_ITS | Encounter Summary ---
Author Organization [facility] Healthcare Address [address] [place] [address] Care Team Providers Care Interior Design Teacher Name Role Phone Gadiel Zavala MD Primary Care Provider [phone] [phone] Lyudmila Knox RN Unavailable Unavailable Jennifer Escalona RN Unavailable Agustina vailable Reason for Referral * MRI/CAT/PET Scan (Routine) - Closed Specialty Diagnoses / Procedures Referred By Contac t Referred To Contact Radiology Diagnoses PAF (paroxysmal atrial fibrillation) (CMS/HCC) (HCC) Frequent falls Contraindication to anticoagulation therapy Procedures CT Heart Morphology W Contrast Emilio Leggett MD [address] [place] [address] [address] [address] Phone: tel: fax: [address] [address] Referral ID Status Reason Start Date Expiration Date Visits Re quested Visits Authorized [id number] Closed 09/26/2023 10/25/2024 1 1 Reason for Visit * Reason Comments New Patient Encounter Details Date Type Department Care Team (Latest Contact Info) Description 09/26/2023 9:45 AM CDT Office Visit [facility] Cardiology [address] [facility] [id number] Emilio Leggett MD [address] [address] PAF (paroxysmal atrial fibrillation) (CMS/HCC) (HCC) (Primary Dx); Frequent falls; Contraindication to anticoagulation therapy; Primary hypertension; History of colon cancer; Mixed hyperlipidemia Social History Tobacco Use Types [...] on file 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 Gender Identity Not on file Sexual Orientation Not on file documented as of this encounter Last Filed Vital Signs Vital Sign Reading Time Taken Comments Blood Pressure 122/88 09/26/2023 9:13 AM CDT Pulse 75 09/26/2023 9:13 AM CDT Temperature - - Respiratory Rate 16 09/26/2023 9:13 AM CDT Oxygen Saturation 99% 09/26/2023 9:13 AM CDT Inhaled Oxygen Concentration - - Weight 65.8 kg (145 lb) 09/26/2023 9:13 AM CDT Height 160 cm (5' 3 ) 09/26/2023 9:13 AM CDT Body Mass Index 25.69 09/26/2023 9:13 AM CDT documented in this encounter Progress Notes * Emilio Leggett MD - 09/26/2023 9:45 AM CDT [facility] CARDIOLOGY 09/26/2023 CHIEF COMPLAINT Chief Complaint Patient presents with New Patient HPI Kaitlin Bond is a 73 y.o. female with paroxysmal atrial fibrillation, hypertension, hypothyroidism on thyroxine replacement, history of frequent falls, history of CA colon status post surgery. 09/26/2023 initial evaluation-patient referred by Dr. Perez for evaluation for left atrial appendage closure. She is accompanied by her . Patient states that she was diagnosed with atrial fibrillation postoperatively in SeptemberOctober 2021 [facility] after she had colon cancer surgery. She states that her colon cancer is in remission. Subsequently, patient had implantable lunchroom monitor which showed paroxysmal atrial fibrillation. She has not been on anticoagulation due to frequent falls. Patient states that she falls frequently, sometimes multiple times a day, and has had dozens of falls in last few months. She uses walkerfor ambulation. She gives history of back surgery and neuropathy which is causing gait instability. MEDICAL HISTORY she has a past medical history of Anemia, Arthritis, Awareness under anesthesia, Chronic back pain, Depression, GERD (gastroesophageal reflux disease), Hyperlipidemia, Hypertension, Hypothyroidism, and Neuropathy (CMS/HCC). she has a past surgical history that includes Anterior fusion cervical spine; Hysterectomy; and Spine surgery. she Allergies Allergen Reactions Gadolinium-Containing Contrast Media [...] Current Outpatient Medications Medication Sig Dispense Refill aspirin (Adult Low Dose Aspirin) 81 mg enteric coated tablet Take 1 tablet (81 mg total) by mouth daily atorvastatin (LIPITOR) 20 mg tablet Take 1 tablet (20 mg total) by mouth daily eszopiclone (LUNESTA) tablet Take 1 tablet (3 mg total) by mouth nightly 1 levothyroxine (SYNTHROID, LEVOTHROID) 50 mcg tablet Take 1 tablet (50 mcg total) by mouth daily losartan (COZAAR) 25 mg tablet Take 1 tablet (25 mg total) by mouth daily 30 tablet 11 metoprolol XL (TOPROL-XL) 100 mg 24 hr tablet Take 1 tablet (100 mg total) by mouth daily TAKE IN COMBINATION WITH 25 MG TABLET metoprolol XL (TOPROL-XL) 25 mg extended release tablet omeprazole (PriLOSEC) 40 mg capsule Take 1 capsule (40 mg total) by mouth daily Two tablets daily oxybutynin (DITROPAN) 5 mg tablet Take 1 tablet (5 mg total) by mouth 2 (two) times a day vitamin E 400 unit capsule Take 1 [...] wheezing Cardiovascular ROS: negative for - chest pain Gastrointestinal ROS: negative for - abdominal pain, nausea/vomiting, hematemesis, blood in the stool Endocrine ROS: negative for - hot flashes, polydipsia/polyuria Musculoskeletal ROS: Positive for gait instability Neurological ROS: Positive for - gait disturbance, weakness Dermatological ROS: negative for pruritus, rash LABS AND OTHER DIAGNOSTIC TESTS REVIEWED Lab Results Component Value Date HGB 9.3 (L) 12/09/2013 HCT 28.2 (L) 12/09/2013 MCV 94.0 12/09/2013 No lab exists for component: LABALBU Lab Results Component Value Date HGB 9.3 (L) 12/09/2013 HCT 28.2 (L) 12/09/2013 MCV 94.0 12/09/2013 No results found for: CHOL No results found for: HDL No results found for: LDL ] No results found for: TRIG Lab Results Component Value Date POCCHOL 240 03/29/2022 POCHDL 66 03/29/2022 POCTRIG 95 03/29/2022 POCLDL 155 03/29/2022 POCNONHDL 174 03/29/2022 POCCHLPL 240 03/29/2022 Echo-normal LV size, mild LVH, EF more than 70%. 10/16/2021; Dr. Perez, [facility] Thirty day event monitor-Predominant underlying rhythm is sinus rhythm, average heart rate 66 beatsper minute. Occasional PACs and PVCs. No atrial fibrillation or flutter was noted. No symptoms reported. 03/29/2022-04/30/2022 Medtronic implantable lunchroom monitor---10 Tachy: ECGs show AF w/ RVR; max v rates between 188-222 bpm. 5 AF: ECGs show AF w/ RVR(longest: 1 hour 31 minutes 16 seconds; last: 05-Aug-2023). 09/07/2023 Lipids-total cholesterol 214, HDL 73, triglycerides 94, LDL 123, glucose 91. 09/26/2023 EKG-sinus rhythm, normal intervals. 09/26/2023 PHYSICAL EXAM Vitals BP 122/88 (BP Location: Right arm, Patient Position: Sitting) Pulse 75 Resp 16 Ht 160 cm (5' 3 ) Wt 65.8 kg (145 lb) SpO2 99% BMI 25.69 kg/m?? General appearance - alert, no distress, [...] for this visit: PAF (paroxysmal atrial fibrillation) ([facility]) ([facility]) (Primary) - CT Heart Morphology W Contrast; Future - Ambulatory Referral to Structural Heart Procedures at Frequent falls - CT Heart Morphology W Contrast; Future - Ambulatory Referral to Structural Heart Procedures at Contraindication to anticoagulation therapy - CT Heart Morphology W Contrast; Future - Ambulatory Referral to Structural Heart Procedures at Primary hypertension History of colon cancer PLAN/RECOMMENDATIONS 73 y.o. female with paroxysmal atrial fibrillation, hypertension, hypothyroidism on thyroxine replacement, history of frequent falls, history of CA colon status post surgery. -patient has PAF, and has had numerous falls due to gait instability from neuropathy. She has not been on anticoagulation due to frequent falls. Her current CHADSVASc score is 4 putting her at higherrisk for stroke in the absence of chronic anticoagulation. After discussing benefits, risks and alternatives, patient and her are eager to proceed with left atrial appendage closure for CVA prophylaxis. Patient will undergo CTA heart to check for left atrial appendage dimensions and rule out left atrial appendage thrombus. Due to history of dye allergy, patient will be pretreated with steroids and diphenhydramine. Consult placed for structural heart team at [facility]. -blood pressure is well controlled with losartan, metoprolol succinate. -levothyroxine for hypothyroidism, management as per PCP. -heart healthy diet, fall precautions. -personally reviewed previous records including previous cardiology notes, labs, outside echo from [facility], EKG, ambulatory lunchroom monitor. - follow up in about 3 months or sooner if necessary. Emilio Leggett MD 09/26/23 Voice recognition software was used to complete this document, therefore, taker off variances may occur. documented in this encounter Miscellaneous Notes * Addendum Note - Gillian Bender MA - 09/26/2023 9:45 AM CDTAddended by: GILLIAN BENDER on: 09/26/2023 12:39 PM Modules accepted: Orders documented in this encounter Plan of Treatment [...] Procedure Name Priority Date/Time Associated Diagnosis Comments POCT LIPID PANEL Routine 09/26/2023 12:3 6 PM CDT Mixed hyperlipidemia ECG 12-LEAD Routine 09/26/2023 PAF (paroxysmal atrial fibrillation) (CMS/HCC) (HCC) Contraindication to anticoagulation therapy documented in this [...] it. Electronically signed by: Agnes Merchant M.D. us Emilio Leggett MD IMG CT PROCEDURES Final Result * POCT lipid panel (09/26/2023 12:36 PM CDT) Cholesterol, POC 214 mg/dL HDL, POC 73 mg/dL Triglycerides, POC 94 mg/dL LDL Cholesterol POC 123 mg/dL Chol/HDL Ratio, POC 2.9 Non-HDL Cholesterol, POC 141 mg/dL Cholesterol Total, POC 214 mg/dL Capillary blood 09/26/2023 1 2:36 PM CDT us Emilio Leggett MD POINT OF CARE TEST ORDERABLES Fi nal Result * ECG 12 lead (09/26/2023) us Emilio Leggett MD ECG ORDERABLES Edited Result - Final documented in this encounter Visit Diagnoses Diagnosis PAF (paroxysmal atrial fibrillation) (CMS/HCC) (HCC)- Primary Atrial fibrillation Frequent falls Contraindication to anticoagulation therapy Primary hypertension Unspecified essential hypertension History of colon cancer Personal history of malignant neoplasm of large intestine Mixed hyperlipidemia PAF (paroxysmal atrial fibrillation) (CMS/HCC) (HCC) Atrial fibrillation Frequent falls Contraindication to anticoagulation therapy documented in this encounter Orders Appointment Requests Count Last Ordered Date Fi rst Ordered Date AMB REF TO STRUCTURAL HEART PROCEDURES AT 1 09/26/2023 documented in this encounter Care Teams Interior Design Teacher Relationship Specialty Start Date End Date Gadiel Zavala MD [address] [place] [address] PCP - General 06/13/16 Lyudmila Knox, RN Registered Nurse 04/14/17 Jennifer Escalona, RN Registered Nurse 05/10/17 documented as of this encounter
--- OUTSIDE RECORDS SUMMARY | 2024-04-17 11:49 | XMS_ITS | Encounter Summary ---
Author Organization [facility] Address [address] [place] [address] Care Team Providers Care Multiple Drill Operator Name Role Phone Gadiel Zavala MD Primary Care Provider [phone] [phone] Lyudmila Knox RN Unavailable Unavailable Jennifer Escalona RN Unavailable Agustina vailable Encounter Details Date Type Department Care Team (Late st Contact Info) Description 08/08/[address] 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 Gender Identity Not on file Sexual [...] Procedure Name Priority Date/Time Associated Diagnosis Comments CARDIOLOGY DOCUMENT SCAN Routine 08/08/2022 documented in this encounter Results * Cardiology Document Scan (08/08/2022) Anatomical Region Laterality Modality Other Bobo Perez MD CV CARDIAC SERVICES PROC EDURES Final Result documented in this encounter Visit Diagnoses Not on filedocumented in this encounter Care Teams Multiple Drill Operator Relationship Specialty Start Date End Date Gadiel Zavala MD [address] [address] PCP - General 06/13/16 Lyudmila Knox, RN Registered Nurse 04/14/17 Jennifer Escalona, RN Registered Nurse 05/10/17 documented as of this encounter
--- OUTSIDE RECORDS SUMMARY | 2024-04-17 11:49 | XMS_ITS | Encounter Summary ---
Author Organization [facility] Address [address] [place] [address] Care Team Providers Care Photocomposition Keyboard Operator Name Role Phone Gadiel Zavala MD Primary Care Provider [phone] [phone] Lyudmila Knox RN Unavailable Unavailable Jennifer Escalona RN Unavailable Agustina vailable Reason for Referral * Cardiology (Routine) - Authorized Specialty Diagnoses / Procedures Referred By Contac t Referred To Contact Cardiology Diagnoses Paroxysmal atrial fibrillation (CMS/HCC) (HCC) Syncope and collapse Procedures DEVICE CHECK - REMOTE Bobo Perez MD Phone: tel: fax: [facility] Referral ID Status Reason Start Date Expiration Date V isits Requested Visits Authorized [id number] Authorized 06/06/2023 12/04/2024 1 1 ER TRAP * Cardiology (Routine) - Authorized Specialty Diagnoses / Procedures [facility] Referred To Contact Cardiology Diagnoses Paroxysmal atrial fibrillation (CMS/HCC) (HCC) Syncope and collapse Procedures DEVICE CHECK - IN OFFICE Bobo Perez MD Phone: tel: fax: [facility] Referral ID Status Reason Start Date Expiration Date V isits Requested Visits Authorized [id number] Authorized 06/06/2023 07/05/2024 1 1 ER TRAP * Cardiology (Routine) - Authorized Specialty Diagnoses / Procedures Referred By Contac t Referred To Contact Cardiology Diagnoses Paroxysmal atrial fibrillation (CMS/HCC) (HCC) Syncope and collapse Procedures DEVICE CHECK - REMOTE Bobo Perez MD Phone: tel: fax: [facility] Referral ID Status Reason Start Date Expiration Date V isits Requested Visits Authorized [id number] Authorized 06/06/2023 12/04/2024 1 1 ER TRAP * Cardiology (Routine) - Closed Specialty Diagnoses / Procedures Referred By Contac t Referred To Contact Diagnoses Paroxysmal atrial fibrillation (CMS/HCC) (HCC) Syncope and collapse Procedures DEVICE CHECK - REMOTE Bobo Perez MD Phone: tel: fax: [facility] Referral ID Status Reason Start Date Expiration Date Visits Re quested Visits Authorized [id number] Closed 06/06/2023 12/04/2024 1 1 ER TRAP * Cardiology (Routine) - Closed Specialty Diagnoses / Procedures Referred By Contac t Referred To Contact Diagnoses Paroxysmal atrial fibrillation (CMS/HCC) (HCC) Syncope and collapse Procedures DEVICE CHECK - REMOTE Bobo Perez MD Phone: tel: fax: Referral ID Status Reason Start Date Expiration Date Visits Re quested Visits Authorized [id number] Closed 06/06/2023 12/04/2024 1 1 ER TRAP * Cardiology (Routine) - Closed Specialty Diagnoses / Procedures Referred By Contac t Referred To Contact Diagnoses Paroxysmal atrial fibrillation (CMS/HCC) (HCC) Syncope and collapse Procedures DEVICE CHECK - REMOTE Bobo Perez MD Phone: tel: fax: Referral ID Status Reason Start Date Expiration Date Visits Re quested Visits Authorized [id number] Closed 06/06/2023 12/04/2024 1 1 ER TRAP Encounter Details Date Type Department Care Team (Late st Contact Info) Description 06/06/2023 Orders Only [facility] Cardiology 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 Gender Identity Not on file Sexual Orientation Not on file documented as of this encounter Plan of Treatment Scheduled Orders Name Type Priority Associated Diagnoses Orde r Schedule DEVICE CHECK - REMOTE Cardiac Services Routine Paroxysmal atrial fibrillation (CMS/HCC) (HCC) Syncope and collapse Expected: 06/06/2023, Expires: 04/30/2030 DEVICE CHECK - IN OFFICE Cardiac Services Routine Paroxysmal atrial fibrillation (CMS/HCC) (HCC) Syncope and collapse Expected: 06/06/2023, Expires: 04/30/2030 DEVICE CHECK - REMOTE Cardiac Services Routine Paroxysmal atrial fibrillation (CMS/HCC) (HCC) Syncope and collapse Expected: 06/06/2023, Expires: 04/30/2030 documented as of this encounter Goals Goal [...] CV CARDIAC SERVICES PROC EDURES Final Result * DEVICE CHECK - REMOTE (09/04/2023 3:31 PM CDT) Anatomical Region Laterality Modality Other Narrative 09/07/2023 7:36 AM CDT Medtronic Loop Recorder implanted on 08-Aug-2022 for syncope. Routine ILR remote. DOS: 04-Sep-2023 Normal device function. Battery function: OK Medications: ASA, Toprol XL- among others Presenting rhythm: VS at 60 bpm Events: ?? --10 Tachy: ECGs show AF w/ RVR; max v rates between 188-222 bpm. --5 AF: ??ECGs show AF w/ RVR(longest: 1 hour 31 minutes 16 seconds; last: 05-Aug-2023). Plan: ??Continue remote monitoring SOFIA [place] Device Specialist Bobo Perez MD CV CARDIAC SERVICES PROC EDURES Final Result * DEVICE CHECK - REMOTE (06/06/2023 10:10 AM FISHER TRAP) Anatomical Region Laterality Modality Other Narrative 07/24/2023 [...] events. 2) Continue to monitor remotely. Sonny Reymundonder Device Hotel Services Supervisor Bobo Perez MD CV CARDIAC SERVICES PROC EDURES Final Result documented in this encounter Visit Diagnoses Diagnosis Paroxysmal atrial fibrillation (CMS/HCC) (HCC)- Primary Atrial fibrillation Syncope and collapse Status post placement of implantable loop recorder- Primary Paroxysmal atrial fibrillation (CMS/HCC) (HCC) Atrial fibrillation Syncope and collapse Status post placement of implantable loop recorder- Primary Paroxysmal atrial fibrillation (CMS/HCC) (HCC) Atrial fibrillation Syncope and collapse Status post placement of implantable loop recorder- Primary Paroxysmal atrial fibrillation (CMS/HCC) (HCC) Atrial fibrillation Syncope and collapse documented in this encounter Care Teams Photocomposition Keyboard Operator Relationship Specialty Start Date End Date Gadiel Zavala MD [address] [address] PCP - General 06/13/16 Lyudmila Knox, RN Registered Nurse 04/14/17 Jennifer Escalona, RN Registered Nurse 05/10/17 documented as of this encounter
--- OUTSIDE RECORDS SUMMARY | 2024-04-17 11:49 | XMS_ITS | Encounter Summary ---
Author Organization [facility] Healthcare Address [address] [place] [address] Care Team Providers Care Sample Coordinator Name Role Phone Gadiel Zavala MD Primary Care Provider [phone] Lyudmila Knox RN Unavailable Unavailable Jennifer Escalona RN Unavailable Agustina vailable Encounter Details Date Type Department Care Team (Late st Contact Info) Description 09/11/2023 Telephone [facility] Cardiology [address] [place] [address] Alton Conway MD [address] [place] [address] Social History Tobacco Use Types Packs/Day [...] on file 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 Leggett. Scheduled for 944 at . Requested callback to confirm apt and/or r/s if needed. * Telephone Encounter - Linda William RN - 09/11/2023 12:08 PM CDT Received message from Dr. Conway; former Chris patient. Looks like she has a history of falls and thus is not on AC. She is having some AF on her ILR monitor and we cannot safely start on DOAC for CVA prophylaxis. I believe best next step, in keeping with Dr. Perez's note as well, is to refer to Dr. Leggett for consideration of Amulet procedure documented in this encounter Plan of Treatment Not on file documented as of this encounter Goals Goal Patient Goal Type Associated Problems Recent Progress Patient-Stated? Author Increase physical activity Exercise No Lyudmila Knox, LOGAN Note: She is doing arm and leg exercises from Pt. She was in rehab after neck surgery for 2 weeks in March 2017 documented as of this encounter Visit Diagnoses Not on filedocumented in this encounter Care Teams Sample Coordinator Relationship Specialty Start Date End Date Gadiel Zavala MD [address] [id number] PCP - General 06/13/16 Lyudmila Knox, RN Registered Nurse 04/14/17 Jennifer Escalona, LOGAN Registered Nurse 05/10/17 documented as of this encounter
--- OUTSIDE RECORDS SUMMARY | 2024-04-17 11:49 | XMS_ITS | Encounter Summary ---
Author Organization [facility] Address [address] [place] [address] Care Team Providers Care Firmware Software Verification Engineer Name Role Phone Gadiel Zavala MD Primary Care Provider [phone] Lyudmila Knox RN Unavailable Unavailable Jennifer Escalona RN Unavailable Agustina vailable Reason for Visit * Reason Comments Wound Check Encounter Details Date Type Department Care Team (Latest Contact Info) Description 08/15/2022 9:45 AM CDT Clinical Support [facility] Cardiology [address] [place] [address] Visit for wound check (Primary Dx) Social History Tobacco Use Types Packs/Day Years Used Date Smoking Tobacco: Former Cigarettes Q uit: 04/14/1987 Smokeless Tobacco: Never Alcohol Use Standard Drinks/Week Comments Yes 0 (1 standard drink = 0.6 oz pur e alcohol) social Comments No Sex and Gender Information Value Date Recorded Sex Assigned at Not on file 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 Dressing removed, incision well approximated and healing well. No signs of infection. Pt advised to call with any concerns and to monitor for any signs of infection. Pt advised that she may shower, do not scrub area, and advised to avoid lotions or ointments to the area until glue has come off on its own. Pt verbalizes understanding. documented in this encounter Plan of [...] as of this encounter Visit Diagnoses Diagnosis Visit for wound check- Primary documented in this encounter Care Teams Firmware Software Verification Engineer Relationship Specialty Start Date End Date Gadiel Zavala MD [address] [address] PCP - General 06/13/16 Lyudmila Knox, RN Registered Nurse 04/14/17 Jennifer Escalona, LOGAN Registered Nurse 05/10/17 documented as of this encounter
--- OUTSIDE RECORDS SUMMARY | 2024-04-17 11:49 | XMS_ITS | Encounter Summary ---
Author Organization [facility] Address [address] [address] Care Team Providers Care Manager Line Name Role Phone Gadiel Zavala MD Primary Care Provider +1 [phone] Lyudmila Knox RN Unavailable Unavailable Jennifer Escalona RN Unavailable Agustina vailable Encounter Details Date Type Department Care Team (Late st Contact Info) Description 01/23/2023 Telephone [facility] Cardiology [address] [facility] [address], [place] [address] Bobo Perez MD [address] [place] [address] [address] [place] [address] Social History Tobacco Use Types Packs/Day Years Used Date Smoking Tobacco: Former Cigarettes Q uit: 04/14/1987 Smokeless Tobacco: Never Alcohol Use Standard Drinks/Week Comments Yes 0 (1 standard drink = 0.6 oz pur e alcohol) social Comments No Sex and Gender Information Value Date Recorded Sex Assigned at Not on file Legal Sex Female 3:22 AM CHIEF CONTRACT OFFICER Gender Identity Not on file Sexual Orientation Not on file documented as of this encounter Miscellaneous Notes * Telephone Encounter - Annie Lew RN - 03/14/2023 1:51 PM CST Noted. F CONTRACT OFFICER * Telephone Encounter - OAnnia Gonzales MA - 03/14/2023 1:19 PM CST Website still showing pt's be is not connected. I called pt and discussed her using a monitor instead of the be. After discussing how the monitor would work she states that would be fine. I explained to her that I would order it for her, confirmed her address and told her she would receive it in 7-10 days, instructed her to call me when she receives it and I would walk her thru setting it up. Pt verbalizes understanding. JOSHUA Valencia F CONTRACT OFFICER * Telephone Encounter - Annia Shaw MA - 03/09/2023 11:21 AM CHIEF CONTRACT OFFICER Pt still showing Dc'd on the website, called pt to see if she followed up with [employer], she said she did not, I explained to her the reasons her be may not be working and she said she lost the icon. I again directed her to [employer], phone number given and instructed her to tell them she is having trouble with her be and to have them walk her thru sending in a remote download. Pt verbalizes understanding. Will monitor F CONTRACT OFFICER * Telephone Encounter - Annia Shaw MA - 01/23/2023 11:05 AM CDT Pt's device showing Dc'd, called pt and spoke to her today. She states she doesn't have an be, I directed her to [employer] to help with this. Pt verbalizes understanding. Number to [employer] given documented in this encounter Plan of Treatment [...] filedocumented in this encounter Care Teams Manager Line Relationship Specialty Start Date End Date Gadiel Zavala MD [address] [address] PCP - General 06/13/16 Lyudmila Knox, RN Registered Nurse 04/14/17 Jennifer Escalona, LOGAN Registered Nurse 05/10/17 documented as of this encounter
--- OUTSIDE RECORDS SUMMARY | 2024-04-17 11:49 | XMS_ITS | Encounter Summary ---
Author Organization [facility] Healthcare Address [address] [place] [address] Care Team Providers Care Program Or Project Administrator Name Role Phone Gadiel Zavala MD Primary Care Provider [phone] [phone] Lyudmila Knox RN Unavailable Unavailable Jennifer Escalona RN Unavailable Agustina vailable Reason for Visit * Reason Comments Follow-up 6 mo f/u Atrial Fibrillation Hypertension Hyperlipidemia Encounter Details Date Type Department Care Team (Latest Contact Info) Description 04/14/2023 11:00 AM DIPLOMATIC OFFICER Office Visit [facility] Cardiology [address] [place] [address] Bobo Perez MD [facility] [address] [place] [address] Paroxysmal atrial fibrillation (CMS/HCC) (HCC) (Primary Dx); Mixed hyperlipidemia; Frequent falls; Primary hypertension; Contraindication to anticoagulation therapy; Status post placement of implantable loop recorder Social History Tobacco Use Types Packs/Day Years [...] on file Legal Sex Female 3:22 AM DIPLOMATIC OFFICER Gender Identity Not on file Sexual Orientation Not on file documented as of this encounter Last Filed Vital Signs Vital Sign Reading Time Taken Comments Blood Pressure 118/74 04/14/2023 11:32 AM DIPLOMATIC OFFICER Pulse 66 04/14/2023 11:32 AM DIPLOMATIC OFFICER Temperature - - Respiratory Rate - - Oxygen Saturation 98% 04/14/2023 11:32 AM DIPLOMATIC OFFICER Inhaled Oxygen Concentration - - Weight 59.6 kg (131 lb 8 oz) 04/14/2023 11:32 AM DIPLOMATIC OFFICER Height 160 cm (5' 3 ) 04/14/2023 11:32 AM DIPLOMATIC OFFICER Body Mass Index 23.29 04/14/2023 11:32 AM DIPLOMATIC OFFICER documented in this encounter Progress Notes * Bobo Perez MD - 04/14/2023 11:00 AM CST Images from the original note were not included. DATE OF VISIT: 04/14/2023 CHIEF COMPLAINT Chief Complaint Patient presents with ??? Follow-up 6 mo f/u ??? Atrial Fibrillation ??? Hypertension ??? Hyperlipidemia ASSESSMENT Diagnoses and all orders for this visit: Paroxysmal atrial fibrillation (CMS/HCC) (HCC) (Primary) Mixed hyperlipidemia Frequent falls Primary hypertension Contraindication to anticoagulation therapy Status post placement of implantable loop recorder PLAN/RECOMMENDATIONS Stable, A. Fib paroxysmal only documented on 1 occasion thus far. Continue current medical therapy and systemic anticoagulation for stroke risk reduction. CHADS2 Vasc score 3. With systemic anticoagulation, patient has contraindication due to frequent falls and history of head injury and is for potential catastrophic intracerebral hemorrhage. Continue aspirin 81 mg daily although they are aware this is an inadequate stroke risk reduction strategy. We discussed at length referral for left atrialappendage occlusion device consideration. She has only 1 previously documented episode of AFib withRVR to date. -she continues to have frequent falls. As before, Continue loop recorder interrogations for more definitive documentation of AFib burden and justification for LAAO device implantation as we have not yet seen AF recurrence. Patient and verbalized understanding and agreed. Continue aspirin 81mg daily. BP controlled, goal less than 140/90 mm Hg. Monitor BP on routine basis. Call with readings. Continue consistent cardiovascular exercise, weight loss, medication compliance, and low-sodium diet. -continue Toprol-XL 125 mg daily, Losartan 25 mg daily. -Fall risk more likely related to weakness and instability due to her back and neck problems as they report not medication related. She has been falling for years now. -however, may be able to reduce beta-ana laura as tolerated. Lipids personally reviewed 03/29/22 LDL 155, poorly controlled with goal LDL<100. Continue medical therapy and lifestyle modification. Continue Atorvastatin 20mg qhs for now and routine lipid monitoring. Repeat fasting lipid profile. Ambulate with extreme caution to avoid risk for falls and bleeding. Follow-up with PCP. Consider physical therapy. 5. Routine loop recorder checks monthly as scheduled. No AFib yet on personal review of 03/2023 check, NSR, occ PVC's 6. Follow up with PCP immediately with regards to abdominal pain, difficulty swallowing at times and coughing along with darkened tongue. They verbalized understanding and agree with plan of care. Over 50% of this visit counseling A. Fib, HTN, lipids, medications, lifestyle modification. Follow up in the office in 6 months or sooner as needed. Thank you for allowing me the privilege of participating in the care this very pleasant patient. Please do not hesitate to contact me with any additional questions or concerns. HPI Kaitlin Bond is a 72 y.o. female with a PMHx of hypertension, hyperlipidemia, recent diagnosiscolonic adenocarcinoma, and atrial fibrillation. This is a patient who presented to [facility] for laparoscopic right hemicolectomy on October [...] her hospitalization. 11/17/2021 Hospital follow-up with [facility] STRATEGIC PLANNING MANAGER - Kaitlin Bond comes to the office [...] syncope. Taking ASA 81mg daily. Thirty day monitor worker worn no AFib noted. 10/07/22 no issues [...] PCP who prescribed med but not helping. MEDICAL HISTORY Past Medical History: Diagnosis Date ??? Anemia ??? Arthritis ??? Awareness under anesthesia ??? Chronic back pain ??? Depression ??? GERD (gastroesophageal reflux disease) ??? Hyperlipidemia ??? Hypertension ??? Hypothyroidism ??? Neuropathy (CMS/HCC) SOCIAL HISTORY reports that she quit smoking about 34 [...] mg tablet vitamin E 400 unit capsule ALLERGIES Allergies Allergen Reactions ??? Gadolinium-Containing Contrast Media [...] with gloves. Only allergy is to adhesive. REVIEW OF SYSTEMS Review of Systems Constitutional: Positive for malaise/fatigue. Negative for decreased appetite, diaphoresis, fever and night sweats. HENT: Negative for hearing loss and nosebleeds. Eyes: Negative for blurred vision and pain. Cardiovascular: Negative for chest pain, claudication, dyspnea on exertion, irregular heartbeat, leg swelling, near-syncope, orthopnea, palpitations and syncope. Respiratory: Positive for cough. Negative for hemoptysis, shortness of breath, snoring and wheezing. Endocrine: Negative for cold intolerance and heat intolerance. Hematologic/Lymphatic: Negative for bleeding problem. Does not bruise/bleed easily. Skin: Negative for color change, itching, rash and suspicious lesions. Musculoskeletal: Positive for arthritis, back pain, falls and joint pain. Negative for muscle weakness and myalgias. Gastrointestinal: Positive for abdominal pain and dysphagia. Negative for heartburn, hematemesis, melena and nausea. Genitourinary: Negative for dysuria, hematuria and nocturia. Neurological: Negative for excessive daytime sleepiness, dizziness, focal weakness, headaches, light-headedness, loss of balance and weakness. Psychiatric/Behavioral: Negative for altered mental status, depression and memory loss. The patientis not nervous/anxious. Allergic/Immunologic: Negative for environmental allergies. All other systems reviewed and are negative. PHYSICAL EXAM Vitals BP 118/74 (BP Location: Left arm, Patient Position: Sitting) Pulse 66 Ht 160 cm (5' 3 ) Wt 59.6 kg (131 lb 8 oz) SpO2 98% BMI 23.29 kg/m?? Weight: 59.6 kg (131 lb 8 oz) Height: 160 cm (5' 3 ) Body mass index is 23.29 kg/m??. Physical Exam Vitals reviewed. Constitutional: General: [...] Cholesterol Total, POC 240 mg/dL 05/04/22 AMBULATORY PROTOZOOLOGIST REPORT Type of monitor : 30 day [...] or flutter was noted. No symptoms reported. 02/23/23 Mode [employer] LNQ22 Loop Recorder. Dx; Syncope, Afib. DOI 08/08/2022- Chris. Carelink remote monitoring. Routine ILR remote. Normal device function. Battery function-Ok. Presenting rhythm-VS, regular 60-70 bpm. Medications; ASA 81 mg, Toprol XL, Lipitor. Counters since 12/12/2022. --0 Tachy (total: 0) --0 Darren (total: 0) --0 Pause (total: 0) --0 Symptom (total: 0) --0 AF (total: 0) See scanned report. Carelink remote f/u 03/06/2023. Annie Lew RN I have personally reviewed and analyzed EKG, electronic medical record, and bloodwork/lipids. [facility] records, 12 lead EKG 10/16/2021 AFib RVR [address] abnormality consider ischemia Harleen Perez MD, [facility] This note is dictated and transcribed using Podotree Direct Software. Hide Handler variancesmay occur. Despite proofreading, typographical errors may occur. OMATIC OFFICER documented in this encounter Plan of Treatment [...] atrial fibrillation (CMS/HCC) (HCC)- Primary Atrial fibrillation Mixed hyperlipidemia Frequent falls Primary hypertension Unspecified essential hypertension Contraindication to anticoagulation therapy Status post placement of implantable loop recorder documented in this encounter Care Teams Program Or Project Administrator Relationship Specialty Start Date End Date Gadiel Zavala MD [address] [address] PCP - General 06/13/16 Lyudmila Knox, RN Registered Nurse 04/14/17 Jennifer Escalona, LOGAN Registered Nurse 05/10/17 documented as of this encounter
--- OUTSIDE RECORDS SUMMARY | 2024-04-17 11:49 | XMS_ITS | Encounter Summary ---
Author Organization [facility] Healthcare Address [address] [place] [address] Care Team Providers Care Repairer Cylinder Heads Name Role Phone Gadiel Zavala MD Primary Care Provider [phone] Lyudmila Knox RN Unavailable Unavailable Jennifer Escalona RN Unavailable Agustina vailable Reason for Visit * Cardiology (Routine) - Closed Specialty Diagnoses / Procedures Referred By Delores t Referred To Contact Diagnoses Paroxysmal atrial fibrillation (CMS/HCC) (HCC) Status post placement of implantable loop recorder Syncope and collapse Procedures DEVICE CHECK - REMOTE Bobo Peerz MD Phone: tel: fax: [facility] Referral ID Status Reason Start Date Expiration Date Visits Re quested Visits Authorized [id number] Closed 08/09/2022 02/09/2024 1 1 Encounter Details Date Type Department Care Team (Latest Contact Info) Description 01/23/2023 8:20 AM CDT Ancillary Procedure [facility] Cardiology [address] [place] [phone] Paroxysmal atrial fibrillation (CMS/HCC) (HCC); Status post placement of implantable loop recorder; Syncope and collapse Social History Tobacco Use Types Packs/Day Years Used Date Smoking Tobacco: Former Cigarettes Q uit: 04/14/1987 Smokeless Tobacco: Never Alcohol Use Standard Drinks/Week Comments Yes 0 (1 standard drink = 0.6 oz pur e alcohol) social Comments No Sex and Gender Information Value Date Recorded Sex Assigned at Not on file Legal Sex Female 3:22 AM SERVICE SHOP FOREMAN Gender Identity Not on file Sexual Orientation [...] Diagnosis Comments DEVICE CHECK - REMOTE Routine 02/07/2023 4:09 PM CDT Paroxysmal atrial fibrillation (CMS/HCC) (HCC) Status post placement of implantable loop recorder Syncope and collapse documented in this encounter Results * DEVICE CHECK - REMOTE (02/07/2023 4:09 PM CDT) Anatomical Region Laterality Modality Other Narrative 02/23/2023 2:19 PM CDT [employer] [id number] Loop Recorder. Dx; Syncope, Afib. DOI 08/08/2022-Chris. Carelink remote monitoring. Routine ILR remote. Normal device function. Battery function-Ok. Presenting rhythm-VS, regular 60-70 bpm. Medications; ASA 81 mg, Toprol XL, Lipitor. Counters since 12/12/2022. --0 Tachy (total: 0) --0 Darren (total: 0) --0 Pause (total: 0) --0 Symptom (total: 0) --0 AF (total: 0) See scanned report. Carelink remote f/u 03/06/2023. Annie Lew RN Bobo Perez MD [facility] PROC EDURES Final Result documented in this encounter Visit Diagnoses Diagnosis Paroxysmal atrial fibrillation (CMS/HCC) (HCC) Atrial fibrillation Status post placement of implantable loop recorder Syncope and collapse documented in this encounter Care Teams Repairer Cylinder Heads Relationship Specialty Start Date End Date Gadiel Zavala MD [address] [address] PCP - General 06/13/16 Lyudmila Knox, RN Registered Nurse 04/14/17 Jennifer Escalona, RN Registered Nurse 05/10/17 documented as of this encounter
--- OUTSIDE RECORDS SUMMARY | 2024-04-17 11:49 | XMS_ITS | Encounter Summary ---
Author Organization [facility] Healthcare Address [address] [place] [address] Care Team Providers Care Ice Cream Freezer Name Role Phone Gadiel Zavala MD Primary Care Provider [phone] [phone] Lyudmila Knox RN Unavailable Unavailable Jennifer Escalona RN Unavailable Agustina vailable Reason for Visit * Cardiology (Routine) - Closed Specialty Diagnoses / Procedures Referred By Contmarianela t Referred To Contact Diagnoses Paroxysmal atrial fibrillation (CMS/HCC) (HCC) Status post placement of implantable loop recorder Syncope and collapse Procedures DEVICE CHECK - REMOTE Bobo Perez MD Phone: tel: fax: [facility] Referral ID Status Reason Start Date Expiration Date Visits Re quested Visits Authorized [id number] Closed 08/09/2022 02/09/2024 1 1 Encounter Details Date Type Department Care Team (Latest Contact Info) Description 06/05/2023 7:00 AM FURNITURE DETAILER Ancillary Procedure [facility] Cardiology [address] [place] [phone] Paroxysmal atrial fibrillation (CMS/HCC) (HCC); Status post [...] on file Legal Sex Female 3:22 AM FURNITURE DETAILER Gender Identity Not on file Sexual Orientation [...] Comments DEVICE CHECK - REMOTE Routine 06/06/2023 10:03 AM FURNITURE DETAILER Paroxysmal atrial fibrillation (CMS/HCC) (HCC) Status post placement of implantable loop recorder Syncope and collapse documented in this encounter Results * DEVICE CHECK - REMOTE (06/06/2023 10:03 AM FURNITURE DETAILER) Anatomical Region Laterality Modality Other Narrative 06/12/2023 8:38 AM FURNITURE DETAILER [employer] REVEAL LinQ implanted August 08, 2022 for syncope. Patient had a routine Carelink remote transmission of their implantable loop recorder on 06/05/2023. Medications: Cozaar, ASA 81, Toprol-XL, Lipitor. Interrogation of the patients device demonstrates that the Linq is functioning appropriately ?? (0) Symptom events Auto Device detected events of, (0) Pause, (0) Bradycardia, (0) Tachy, (0) AT, (0) AF, Presenting Rhythm: ??NSR @ 68 bpm Battery: ??Good Plan: 1) Routine Remote with no new events. 2) Continue to monitor remotely. Sonny Campos Device Womens Volleyball Coach Bobo Perez MD [facility] PROC EDURES Final Result documented in this encounter Visit Diagnoses Diagnosis Paroxysmal atrial fibrillation (CMS/HCC) (HCC) Atrial fibrillation Status post placement of implantable loop recorder Syncope and collapse documented in this encounter Care Teams Ice Cream Freezer Relationship Specialty Start Date End Date Gadiel Zavala MD [address] [address] PCP - General 06/13/16 Lyudmila Knox, RN Registered Nurse 04/14/17 Jennifer Escalona, RN Registered Nurse 05/10/17 documented as of this encounter
--- OUTSIDE RECORDS SUMMARY | 2024-04-17 11:49 | XMS_ITS | Encounter Summary ---
Author Organization [facility] Address [address] [facility] [address] [place] [address] Care Team Providers Care Transition Mgr Name Role Phone Gadiel Zavala MD Primary Care Provider [phone] [phone] Lyudmila Knox RN Unavailable Unavailable Jennifer Escalona RN Unavailable Agustina vailable Encounter Details Date Type Department Care Team (Late st Contact Info) Description 06/22/2022 Telephone [facility] Cardiology [address] [facility] [address] [place] [address] [place] [address] [place] [address] Social History Tobacco Use Types Packs/Day Years Used Date Smoking Tobacco: Former Cigarettes Q uit: 04/14/1987 Smokeless Tobacco: Never Alcohol Use Standard Drinks/Week Comments Yes 0 (1 standard drink = 0.6 oz pur e alcohol) social Comments No Sex and Gender Information Value Date Recorded Sex Assigned at Not on file Legal Sex Female 3:22 AM ADJUNCT INSTRUCTOR Gender Identity Not on file Sexual Orientation Not on file documented as of this encounter Miscellaneous Notes * Telephone Encounter - Katey Griffin RN - 06/22/2022 3:11 PM CST Pt notified and surgery updated with sched change. NCT INSTRUCTOR * Telephone Encounter - Lillie Jamison - 06/22/2022 2:35 PM CST Pt states 08/08/22 will be a good date for her to schedule loop recorder implant. Contact: NCT INSTRUCTOR documented in this encounter Plan of Treatment [...] on filedocumented in this encounter Care Teams Transition Mgr Relationship Specialty Start Date End Date Gadiel Zavala MD [address] [address] PCP - General 06/13/16 Lyudmila Knox, RN Registered Nurse 04/14/17 Jennifer Escalona, LOGAN Registered Nurse 05/10/17 documented as of this encounter
--- OUTSIDE RECORDS SUMMARY | 2024-04-17 11:49 | XMS_ITS | Encounter Summary ---
Author Organization [facility] Healthcare Address [address] [place] [address] Care Team Providers Care Livestock Ranch Hand Name Role Phone Gadiel Zavala MD Primary Care Provider [phone] [phone] Lyudmila Knox RN Unavailable Unavailable Jennifer Escalona RN Unavailable Agustina vailable Encounter Details Date Type Department Care Team (Late st Contact Info) Description 09/26/2023 Telephone [facility] Cardiology [address] [place] [phone] Emilio Leggett MD [address] [place] [address] Social History Tobacco Use Types Packs/Day [...] on file Legal Sex Female 3:22 AM SAFETY CLOTHING AND EQUIPMENT DEVELOPER Gender Identity Not on file Sexual Orientation Not on file documented as of this encounter Ordered Prescriptions Prescription Sig Dispense Quantity Refills Last Filled Start Date End Date predniSONE (DELTASONE) 50 mg tabletIndications: Contrast allergy prophylaxis Take 1 tablet (50 mg) by mouth 3 (three) times a day for 1 day Take 1 tablet (50 mg total) by mouth 3 (three) times a day for 1 (one) day at 13 hours (1 a.m), 7 hours (7 a.m.), and 1 hour prior to your procedure at (1 p.m). 3 tablet 09/26/2023 4 diphenhydrAMINE (BENADRYL) 50 mg capsule Take 1 capsule (50 mg total) by mouth once for 1 dose Take 1 capsule (50 mg total) by mouth once for 1 dose 1 hour prior to your procedure at 1 p.m 1 capsule 09/26/2023 4 documented in this encounter Miscellaneous Notes * Telephone Encounter - Marry Gaston RN - 09/26/2023 10:[address] Leggett ordered CT of the heart to rule out for LAAO procedure, which was scheduled for 10/05 at 2 p.m. Pt will take prednisone and diphenhydramine Date of Procedure- 10/05 at 2 p.m. Prednisone 50 mg- 13 hours prior- 1 a.m. 7 hours prior- 7 a.m. 1 hour prior- 1 p.m Diphenhydramine 50 mg 1 hour prior 1 p.m. 5 a.m. 6 a.m. 7 a.m.- 7 hours prior. 8 a.m 9 a.m 10 a.m 11 a.m 12 pm (noon) 1 p.m- 1 hour prior 2 p.m.- time of test 3 p.m. 4 p.m. 5 p.m 6 p.m. 7 p.m. 8 p.m 9 p.m 10 p.m. 11 pm 12 am (midnight) ? 1 am - 13 hours prior. 2 am 3 am 4 am Med[address] called into [facility]. documented in this encounter Plan of Treatment [...] on filedocumented in this encounter Care Teams Livestock Ranch Hand Relationship Specialty Start Date End Date Gadiel Zavala MD [address] [address] PCP - General 06/13/16 Lyudmila Knox, RN Registered Nurse 04/14/17 Jennifer Escalona, RN Registered Nurse 05/10/17 documented as of this encounter
--- OUTSIDE RECORDS SUMMARY | 2024-04-17 11:49 | XMS_ITS | Encounter Summary ---
Author Organization [facility] Address [address] [address] Care Team Providers Care Independent Consultant Name Role Phone Gadiel Zavala MD Primary Care Provider [phone] Lyudmila Knox RN Unavailable Unavailable Jennifer Escalona RN Unavailable Agustina vailable Reason for Visit * Cardiology (Routine) - Closed Specialty Diagnoses / Procedures Referred By Contac t Referred To Contact Diagnoses Paroxysmal atrial fibrillation (CMS/HCC) (HCC) Status post placement of implantable loop recorder Syncope and collapse Procedures DEVICE CHECK - REMOTE Bobo Perez MD Phone: tel: fax: [facility] Referral ID Status Reason Start Date Expiration Date Visits Re quested Visits Authorized [id number] Closed 08/09/2022 02/09/2024 1 1 Encounter Details Date Type Department Care Team (Latest Contact Info) Description 10/31/2022 10:45 AM CDT Ancillary Procedure [facility] Cardiology [address] [facility] [address] [place] [phone] Paroxysmal atrial fibrillation (CMS/HCC) (HCC); Status post [...] on file 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 Medications: ??Cozaar, ASA 81, Toprol-XL, Lipitor. Interrogation of the patients device demonstrates that the Linq is functioning appropriately ?? (0) Symptom events (0) Device detected events of bradycardia, Tachycardia, Pause, or AT/AF Presenting Rhythm: Sinus rhythm @ 58 bpm Battery: Good Plan: 1) Routine Remote with no new event. 2) Continue to monitor remotely. ? Sonny McAlexnder ? Device Roll Dough Divider us Bobo Perez MD [facility] C[facility] SERVICES PROC EDURES Final Result documented in this encounter Visit Diagnoses Diagnosis Paroxysmal atrial fibrillation (CMS/HCC) (HCC) Atrial fibrillation Status post placement of implantable loop recorder Syncope and collapse documented in this encounter Care Teams Independent Consultant Relationship Specialty Start Date End Date Gadiel Zavala MD [address] [id number] PCP - General 06/13/16 Lyudmila Knox, RN Registered Nurse 04/14/17 Jennifer Escalona, RN Registered Nurse 05/10/17 documented as of this encounter
--- OUTSIDE RECORDS SUMMARY | 2024-04-17 11:49 | XMS_ITS | Encounter Summary ---
Author Organization [facility] Address [address] [place] [address] Care Team Providers Care Lightning Protection Installer Name Role Phone Gadiel Zavala MD Primary Care Provider [phone] Lyudmila Knox RN Unavailable Unavailable Jennifer Escalona RN Unavailable Agustina vailable Reason for Visit * Cardiology (Routine) - Closed Specialty Diagnoses / Procedures Referred By Delores t Referred To Contact Diagnoses Paroxysmal atrial fibrillation (CMS/HCC) (HCC) Syncope and collapse Procedures DEVICE CHECK - REMOTE Bobo Perez MD Phone: tel: fax: Referral ID Status Reason Start Date Expiration Date Visits Re quested Visits Authorized [id number] Closed 06/06/2023 12/04/2024 1 1 Encounter Details Date Type Department Care Team (Latest Contact Info) Description 09/04/2023 7:30 AM CDT Ancillary Procedure [facility] Cardiology [address] [place] [phone] Status post placement of implantable loop recorder [...] on file 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
--- OUTSIDE RECORDS SUMMARY | 2024-04-17 11:49 | XMS_ITS | Encounter Summary ---
Author Organization [facility] Address [address] [facility] [address] [place] [id number] Care Team Providers Care Stripper Apprentice Name Role Phone Gadiel Zavala MD Primary Care Provider [phone] Lyudmila Knox RN Unavailable Unavailable Jennifer Escalona RN Unavailable Agustina vailable Reason for Referral * Cardiology (Routine) - Closed Specialty Diagnoses / Procedures Referred By Contac t Referred To Contact Diagnoses Paroxysmal atrial fibrillation (CMS/HCC) (HCC) Status post placement of implantable loop recorder Syncope and collapse Procedures DEVICE CHECK - REMOTE Bobo Perez MD Phone: tel: fax: [facility] Referral ID Status Reason Start Date Expiration Date Visits Re quested Visits Authorized [id number] Closed 08/09/2022 02/09/2024 1 1 * Cardiology (Routine) - Closed Specialty Diagnoses / Procedures Referred By Contac t Referred To Contact Diagnoses Paroxysmal atrial fibrillation (CMS/HCC) (HCC) Status post placement of implantable loop recorder Syncope and collapse Procedures DEVICE CHECK - REMOTE Bobo Perez MD Phone: tel: fax: [facility] Referral ID Status Reason Start Date Expiration Date Visits Re quested Visits Authorized [id number] Closed 08/09/2022 02/09/2024 1 1 * Cardiology (Routine) - Closed Specialty Diagnoses / Procedures Referred By Contac t Referred To Contact Diagnoses Paroxysmal atrial fibrillation (CMS/HCC) (HCC) Status post placement of implantable loop recorder Syncope and collapse Procedures DEVICE CHECK - REMOTE Bobo ePrez MD Phone: tel: fax: [facility] Referral ID Status Reason Start Date Expiration Date Visits Re quested Visits Authorized [id number] Closed 08/09/2022 02/09/2024 1 1 * Cardiology (Routine) - Closed Specialty Diagnoses / Procedures Referred By Contac t Referred To Contact Diagnoses Paroxysmal atrial fibrillation (CMS/HCC) (HCC) Status post placement of implantable loop recorder Syncope and collapse Procedures DEVICE CHECK - REMOTE Bobo Perez MD Phone: tel: fax: [facility] Referral ID Status Reason Start Date Expiration Date Visits Re quested Visits Authorized [id number] Closed 08/09/2022 02/09/2024 1 1 * Cardiology (Routine) - Closed Specialty Diagnoses / Procedures Referred By Contac t Referred To Contact Diagnoses Paroxysmal atrial fibrillation (CMS/HCC) (HCC) Status post placement of implantable loop recorder Syncope and collapse Procedures DEVICE CHECK - REMOTE Bobo Perez MD Phone: tel: fax: [facility] Referral ID Status Reason Start Date Expiration Date Visits Re quested Visits Authorized [id number] Closed 08/09/2022 02/09/2024 1 1 * Cardiology (Routine) - Closed Specialty Diagnoses / Procedures Referred By Contac t Referred To Contact Diagnoses Paroxysmal atrial fibrillation (CMS/HCC) (HCC) Status post placement of implantable loop recorder Syncope and collapse Procedures DEVICE CHECK - REMOTE Bobo Perez MD Phone: tel: fax: [facility] Referral ID Status Reason Start Date Expiration Date Visits Re quested Visits Authorized [id number] Closed 08/09/2022 02/09/2024 1 1 * Cardiology (Routine) - Closed Specialty Diagnoses / Procedures Referred By Contac t Referred To Contact Diagnoses Paroxysmal atrial fibrillation (CMS/HCC) (HCC) Status post placement of implantable loop recorder Syncope and collapse Procedures DEVICE CHECK - IN OFFICE Bobo Perez MD Phone: tel: fax: [facility] Referral ID Status Reason Start Date Expiration Date Visits Re quested Visits Authorized [id number] Closed 08/09/2022 09/08/2023 1 1 Encounter Details Date Type Department Care Team (Late st Contact Info) Description 08/09/2022 Orders Only [facility] Cardiology [address] [facility] [address], [place] [phone] Bobo Perez MD [address] [place] [address] [address] [place] [address] Paroxysmal atrial fibrillation (CMS/HCC) (HCC) (Primary Dx); Status post placement of implantable loop recorder; [...] on file 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 Author Increase physical activity Exercise Lyudmila Shah, RN Note: She is doing arm and leg exercises from Pt. She was in rehab after neck surgery for 2 weeks in March 2017 documented as of this encounter Results * DEVICE CHECK - REMOTE (06/06/2023 10:03 AM CALLISTHENICS INSTRUCTOR) Anatomical Region Laterality Modality Other Narrative 06/12/2023 8:38 AM CALLISTHENICS INSTRUCTOR [employer] REVEAL LinQ implanted August 08, 2022 [...] Continue to monitor remotely. Sonny Campos Device Back Grinder Bobo Perez MD [facility] CARDIAC SERVICES PROC EDURES Final Result * DEVICE CHECK - REMOTE (04/19/2023 10:52 AM CALLISTHENICS INSTRUCTOR) Anatomical Region Laterality Modality Other Narrative 04/21/2023 8:07 AM CALLISTHENICS INSTRUCTOR Med[employer]onic REVEAL LinQ implanted August 08, 2022 for syncope Patient had a routine [facility] remote transmission of their implantable loop recorder on 04/17/2023. Medications: ??Cozaar, ASA 81, Toprol-XL, Lipitor. Interrogation of the patients device demonstrates that the Linq is functioning appropriately ?? (0) Symptom events (0) Device detected events of bradycardia, Tachycardia, Pause, or AT/AF Presenting Rhythm: Sinus rhythm @ 60 bpm Battery: Good Plan: 1) Routine Remote with no new event. 2) Continue to monitor remotely. ? Sonny Campos ? Device Back Grinder us Bobo Perez MD CV CARDIAC SERVICES PROC EDURES Final Result * DEVICE CHECK - REMOTE (03/22/2023 4:50 PM CALLISTHENICS INSTRUCTOR) Anatomical Region Laterality Modality Other Narrative 04/21/2023 12:26 PM CALLISTHENICS INSTRUCTOR Medtronic LNQ22 Loop Recorder. Dx; Syncope, Afib. DOI 08/08/2022-Chris. [facility]link remote monitoring. Routine ILR remote. Normal device function. Battery function-Ok. Presenting rhythm-VS, regular 100 bpm. Medications; ASA 81 mg, Toprol XL. No auto or patient recorded episodes noted. See scanned report. [facility]link remote f/u 04/17/2023. Annie Lew RN us Bobo Perez MD CV CARDIAC SERVICES PROC EDURES Final Result * DEVICE CHECK - REMOTE (02/07/2023 4:09 [...] [facility]link remote f/u 03/06/2023. Annie Lew RN us Bobo Perez MD CV CARDIAC SERVICES PROC EDURES Final Result * DEVICE CHECK - REMOTE (10/31/2022 3:11 [...] monitor remotely. ? Sonny McAlexnder ? Device Back Grinder Bobo Perez MD CV CARDIAC SERVICES PROC EDURES Final Result * DEVICE CHECK - REMOTE (09/13/2022 5:13 PM CDT) Anatomical Region Laterality Modality Other Narrative 10/28/2022 4:14 PM CDT Medtronic LNQ22 Loop Recorder. Dx; Syncope, Afib. DOI 08/08/2022-Chris. Carelink remote monitoring. Routine ILR remote. Normal device function. Battery function-Ok. Presenting rhythm-VS, regular 60 bpm. Medications; No auto or patient recorded episodes noted. PVC's (% beats) 0.1%. See scanned report. [facility]link remote f/u 10/31/2022. Annie Lew RN Bobo Perez MD CV CARDIAC SERVICES PROC EDURES Final Result documented in this encounter Visit Diagnoses Diagnosis Paroxysmal atrial fibrillation (CMS/HCC) (HCC)- Primary Atrial fibrillation Status post placement of implantable loop recorder Syncope and collapse Paroxysmal atrial fibrillation (CMS/HCC) (HCC) Atrial fibrillation Status post placement of implantable loop recorder Syncope and collapse Paroxysmal atrial fibrillation (CMS/HCC) (HCC) Atrial fibrillation Status post placement of implantable loop recorder Syncope and collapse Paroxysmal atrial fibrillation (CMS/HCC) (HCC) Atrial fibrillation Status post placement of implantable loop recorder Syncope and collapse Paroxysmal atrial fibrillation (CMS/HCC) (HCC) Atrial fibrillation Status post placement of implantable loop recorder Syncope and collapse Paroxysmal atrial fibrillation (CMS/HCC) (HCC) Atrial fibrillation Status post placement of implantable loop recorder Syncope and collapse Paroxysmal atrial fibrillation (CMS/HCC) (HCC) Atrial fibrillation Status post placement of implantable loop recorder Syncope and collapse documented in this encounter Care Teams Stripper Apprentice Relationship Specialty Start Date End Date Gadiel Zavala MD [address] [place], [place] [id number] PCP - General 06/13/16 Lyudmila Knox, RN Registered Nurse 04/14/17 Jennifer Escalona, LOGAN Registered Nurse 05/10/17 documented as of this encounter
--- OUTSIDE RECORDS SUMMARY | 2024-04-17 11:49 | XMS_ITS | Encounter Summary ---
Author Organization [facility] Address [address] [place] [address] Care Team Providers Care Block Setter Gypsum Name Role Phone Gadiel Zavala MD Primary Care Provider [phone] Lyudmila Knox RN Unavailable Unavailable Jennifer Escalona RN Unavailable Agustina vailable Reason for Visit * Cardiology (Routine) - Closed Specialty Diagnoses / Procedures Referred By Contmarianela t Referred To Contact Diagnoses Paroxysmal atrial fibrillation (CMS/HCC) (HCC) Status post placement of implantable loop recorder Syncope and collapse Procedures DEVICE CHECK - REMOTE Bobo Perez MD Phone: tel: fax: [facility] Referral ID Status Reason Start Date Expiration Date Visits Re quested Visits Authorized [id number] Closed 08/09/2022 02/09/2024 1 1 Encounter Details Date Type Department Care Team (Latest Contact Info) Description 04/17/2023 12:00 PM WARP HANGER Ancillary Procedure [facility] Cardiology [address] [place] [phone] Paroxysmal atrial fibrillation (CMS/HCC) (HCC); Status post [...] on file 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 ? Sonny McAlexnder ? Device Special Education Aide us Bobo Perez MD CV CARDIAC SERVICES PROC EDURES Final Result documented in this encounter Visit Diagnoses Diagnosis Paroxysmal atrial fibrillation (CMS/HCC) (HCC) Atrial fibrillation Status post placement of implantable loop recorder Syncope and collapse documented in this encounter Care Teams Block Setter Gypsum Relationship Specialty Start Date End Date Gadiel Zavala MD [address] [address] PCP - General 06/13/16 Lyudmila Knox, RN Registered Nurse 04/14/17 Jennifer Escalona, RN Registered Nurse 05/10/17 documented as of this encounter
--- OUTSIDE RECORDS SUMMARY | 2024-04-17 11:49 | XMS_ITS | Encounter Summary ---
Author Organization [facility] Address [address] [facility] [facility] [address] [place] [address] Care Team Providers Care Home Health Care Case Manager Name Role Phone Gadiel Zavala MD Primary Care Provider [phone] [phone] Lyudmila Knox RN Unavailable Unavailable Jennifer Escalona RN Unavailable Agustina vailable Reason for Referral * Consultation (Routine) - Closed Specialty Diagnoses / Procedures Referred By Contmarianela t Referred To Contact Cardiology Diagnoses Mixed hyperlipidemia Paroxysmal atrial fibrillation (CMS/HCC) (HCC) Gadiel Zavala MD [address] [address] Phone: tel: fax: [facility] Cardiology [address] [facility] [address] [place] [address] Phone: tel: fax: Referral ID Status Reason Start Date Expiration Date V isits Requested Visits Authorized [id number] Closed Specialty Services Required 06/21/2022 11/29/2022 5 5 Question Answer Please select the performing region: [facility] [[id number]] Please select the performing department: [facility] [[id number]] # of visits: 1 NG DOUBLE Reason for Visit * Reason Comments Follow-up 2-3 mo f/u Atrial Fibrillation Hypertension * Consultation (Routine) - Closed Specialty Diagnoses / Procedures Referred By Contac t Referred To Contact Cardiology Diagnoses Mixed hyperlipidemia Paroxysmal atrial fibrillation (CMS/HCC) (HCC) Gadiel Zavala MD [address] [address] Phone: tel: fax: [facility] Cardiology [address] [place] [address] Phone: tel: fax: Referral ID Status Reason Start Date Expiration Date V isits Requested Visits Authorized [id number] Closed Specialty Services Required 06/21/2022 11/29/2022 5 5 Encounter Details Date Type Department Care Team (Latest Contact Info) Description 06/22/2022 9:00 AM RIDING DOUBLE Office Visit [facility] Cardiology [address] [place] [address] Bobo Perez MD [address] [facility] [address] [place] [address] Paroxysmal atrial fibrillation (CMS/HCC) (HCC) (Primary Dx); Frequent falls; Contraindication to anticoagulation therapy; Primary hypertension; Mixed hyperlipidemia Social History Tobacco Use Types Packs/Day Years Used Date Smoking Tobacco: Former Cigarettes Q uit: 04/14/1987 Smokeless Tobacco: Never Alcohol Use Standard Drinks/Week Comments Yes 0 (1 standard drink = 0.6 oz pur e alcohol) social Comments No Sex and Gender Information Value Date Recorded Sex Assigned at Not on file Legal Sex Female 3:22 AM RIDING DOUBLE Gender Identity Not on file Sexual Orientation Not on file documented as of this encounter Last Filed Vital Signs Vital Sign Reading Time Taken Comments Blood Pressure 128/72 06/22/2022 9:05 AM RIDING DOUBLE Pulse 64 06/22/2022 9:05 AM RIDING DOUBLE Temperature - - Respiratory Rate - - Oxygen Saturation 98% 06/22/2022 9:05 AM RIDING DOUBLE Inhaled Oxygen Concentration - - Weight 58.2 kg (128 lb 4.8 oz) 06/22/2022 9:05 A M RIDING DOUBLE Height 160 cm (5' 3 ) 06/22/2022 9:05 AM RIDING DOUBLE Body Mass Index 22.73 06/22/2022 9:05 AM RIDING DOUBLE documented in this encounter Progress Notes * Bobo Perez MD - 06/22/2022 9:00 AM CST Images from the original note were not included. DATE OF VISIT: 06/22/2022 CHIEF COMPLAINT Chief Complaint Patient presents with ??? Follow-up 2-3 mo f/u ??? Atrial Fibrillation ??? Hypertension ASSESSMENT Diagnoses and all orders for this visit: Paroxysmal atrial fibrillation (CMS/HCC) (HCC) (Primary) - Ambulatory referral to Cardiology; Future Frequent falls Contraindication to anticoagulation therapy Primary hypertension Mixed hyperlipidemia - Ambulatory referral to Cardiology; Future PLAN/RECOMMENDATIONS Stable, A. Fib paroxysmal only documented [...] episode of AFib with RVR. Thirty day potline monitor to assess for recurrent AFib further risk stratification. Recommendations to follow. -she continues to have frequent falls. Thirty day potline monitor without documented recurrence of AFib/flutter. However, patient at elevated risk for stroke and unless recurrence noted I would notfeel referral for left atrial appendage occlusion would be most appropriate. Therefore I have recommended loop recorder implantation for more definitive documentation of AFib burden and justificationfor LAAO device implantation as we have not yet seen AF recurrence. Risks vs benefit discussed theyverbalized understanding and agreed. BP controlled, goal less than 140/90 mm Hg. Monitor BP on routine basis. Call with readings. Continue consistent cardiovascular exercise, weight loss, medication compliance, and low-sodium diet. -continue Toprol-XL 100 mg daily, losartan 25 mg daily. Lipids personally reviewed 03/29/22 LDL 155, controlled with goal LDL<100. Continue medical therapy and lifestyle modification. Continue Atorvastatin 20mg qhs and routine lipid monitoring. Will need to increase dosing but given circumstances and fall risk will discuss in more detail at next visit. Ambulate with extreme caution to avoid risk for falls and bleeding. Follow-up with PCP. Consider physical therapy. Over 50% of this visit counseling A. Fib, HTN, lipids, medications, lifestyle modification. Follow up in the office in 2 months or sooner as needed. Thank you for allowing me the privilege of participating in the care this very pleasant patient. Please do not hesitate to contact me with any additional questions or concerns. HPI Kaitlin Bond is a 71 y.o. female with a PMHx of hypertension, hyperlipidemia, recent diagnosiscolonic adenocarcinoma, and atrial fibrillation. This is a patient who presented to [facility] for laparoscopic right hemicolectomy on October [...] her hospitalization. 11/17/2021 Hospital follow-up with [facility] - Kaitlin Bond comes to the office [...] syncope. Taking ASA 81mg daily. Thirty day potline monitor worn no AFib noted. MEDICAL HISTORY Past Medical History: Diagnosis Date [...] XL (TOPROL-XL) 100 mg 24 hr tablet omeprazole (PriLOSEC) 40 mg capsule oxybutynin (DITROPAN) 5 mg tablet vitamin E 400 unit capsule amLODIPine (NORVASC) 10 mg tablet metoprolol XL (TOPROL-XL) 25 mg extended release tablet b complex vitamins capsule buprenorphine HCl (BELBUCA) 150 mcg film calcium carbonate-vitamin D3 600 mg (1,500 mg)-800 unit tablet,chewable celecoxib (CeleBREX) 200 mg capsule chlorhexidine (HIBICLENS) 4 % external liquid diazePAM (VALIUM) 10 mg tablet FLUoxetine (PROzac) 20 mg capsule mupirocin (BACTROBAN) 2 % nasal ointment naproxen (NAPROSYN,ALEVE) 220 mg tablet oxyCODONE-acetaminophen (PERCOCET) 10-325 mg per tablet oxyCODONE-acetaminophen (PERCOCET) 10-325 mg per tablet oxyCODONE-acetaminophen (PERCOCET) 10-325 mg per tablet ALLERGIES Allergies Allergen Reactions ??? Dye [...] and are negative. PHYSICAL EXAM Vitals BP 128/72 (BP Location: Left arm, Patient Position: Sitting) Pulse 64 Ht 160 cm (5' 3 ) Wt 58.2 kg (128 lb 4.8 oz) SpO2 98% BMI 22.73 kg/m?? Weight: 58.2 kg (128 lb 4.8 oz) Height: 160 cm (5' 3 ) Body mass index is 22.73 kg/m??. Physical Exam Vitals reviewed. Constitutional: General: [...] Cholesterol Total, POC 240 mg/dL 05/04/22 AMBULATORY RETAIL ACCOUNT EXECUTIVE REPORT Type of monitor : 30 day [...] EKG, electronic medical record, and bloodwork/lipids. Reviewed [facility] records, 12 lead EKG 10/16/2021 AFib RVR [address] abnormality consider ischemia Harleen Perez MD, [facility] This note is dictated and transcribed using Superplayer Direct Software. Manager Erp variancesmay occur. Despite proofreading, typographical errors may occur. NG DOUBLE documented in this encounter Plan of Treatment Scheduled Referrals Name Type Priority Associated Diagnoses Orde r Schedule Ambulatory referral to Cardiology Outpatient Referral Routine Mixed hyperlipidemia Paroxysmal atrial fibrillation (CMS/HCC) Expected: 07/05/2022 (Approximate), Expires: 06/21/2023 documented as of this encounter Goals Goal Patient Goal Type Associated Problems Recent Progress Patient-Stated? Author Increase physical activity Exercise Lyudmila Shah, RN Note: She is doing arm and leg exercises from Pt. She was in rehab after neck surgery for 2 weeks in March 2017 documented as of this encounter Visit Diagnoses Diagnosis Paroxysmal atrial fibrillation (CMS/HCC) (HCC)- Primary Atrial fibrillation Frequent falls Contraindication to anticoagulation therapy Primary hypertension Unspecified essential hypertension Mixed hyperlipidemia documented in this encounter Discontinued Medications Medication Sig Discontinue Reason Start Date End Da te FLUoxetine (PROzac) 20 mg capsule Take 40 mg by mouth daily. Therapy completed 03/31/2017 06/22/2022 oxyCODONE-acetaminophen (PERCOCET) 10-325 mg per tabletIndications:Pain Take 1 tablet by mouth every 12 (twelve) hours as needed for pain Earliest Fill Date: 05/10/17. Therapy completed 05/10/2017 06/22/2022 oxyCODONE-acetaminophen (PERCOCET) 10-325 mg per tabletIndications:Pain Take 1 tablet by mouth every 12 (twelve) hours as needed for pain Max 5 tablets/day Therapy completed 08/27/2018 06/22/2022 oxyCODONE-acetaminophen (PERCOCET) 10-325 mg per tabletIndications:Pain Take 1 tablet by mouth every 12 (twelve) hours as needed for pain Therapy completed 08/27/2018 06/22/2022 mupirocin (BACTROBAN) 2 % nasal ointmentIndications:Met hicillin-Resistant S. Aureus Nasal Colonization Apply to each nostril twice daily for five (5) days. After application, press sides of nose together and gently massage. Therapy completed 05/10/2017 06/22/2022 naproxen (NAPROSYN,ALEVE) 220 mg tablet Take 220 mg by mouth every 12 (twelve) hours as needed for pain. Therapy completed 06/22/2022 b complex vitamins capsuleIndications:3000 Take 3 capsules by mouth daily. Therapy completed 06/22/2022 buprenorphine HCl (BELBUCA) 150 mcg film Apply 150 mcg to cheek 2 (two) times a day Therapy completed 08/27/2018 06/22/2022 calcium carbonate-vitamin D3 600 mg (1,500 mg)-800 unit tablet,chewable Take 2 tablets by mouth daily. Therapy completed 06/22/2022 celecoxib (CeleBREX) 200 mg capsule Take 200 mg by mouth daily. Therapy completed 04/04/2017 06/22/2022 chlorhexidine (HIBICLENS) 4 % external liquidIndications:Skin Disinfection Shower with daily for 5 days prior to surgery, especially morning of surgery Therapy completed 05/10/2017 06/22/2022 diazePAM (VALIUM) 10 mg tabletIndications:anxie ty Take 1 tablet (10 mg total) by mouth once for 1 dose Take one tablet one hour prior to EMG/NCS Therapy completed 08/27/2018 06/22/2022 documented as of this encounter Historical Medications * This list may reflect changes made after this encounter. vitamin E 400 unit capsule Take 1 capsule (400 Units total) by mouth added in this encounter Care Teams Home Health Care Case Manager Relationship Specialty Start Date End Date Gadiel Zavala MD [address] [address] PCP - General 06/13/16 Lyudmila Knox, RN Registered Nurse 04/14/17 Jennifer Escalona, RN Registered Nurse 05/10/17 documented as of this encounter
--- OUTSIDE RECORDS SUMMARY | 2024-04-17 11:49 | XMS_ITS | Encounter Summary ---
Author Organization [facility] Address [address] [address] Care Team Providers Care Cathode Washer Name Role Phone Gadiel Zavala MD Primary Care Provider [phone] Lyudmila Knox RN Unavailable Unavailable Jennifer Escalona RN Unavailable Agustina vailable Reason for Visit * Cardiology (Routine) - Closed Specialty Diagnoses / Procedures Referred By Contac t Referred To Contact Diagnoses Paroxysmal atrial fibrillation (CMS/HCC) (HCC) Status post placement of implantable loop recorder Syncope and collapse Procedures DEVICE CHECK - REMOTE Bobo Perez MD Phone: tel: fax: [facility] Referral ID Status Reason Start Date Expiration Date Visits Re quested Visits Authorized [id number] Closed 08/09/2022 02/09/2024 1 1 Encounter Details Date Type Department Care Team (Latest Contact Info) Description 09/12/2022 11:45 AM CDT Ancillary Procedure [facility] Cardiology [address] [facility] [address] [place] [id number] Paroxysmal atrial fibrillation (CMS/HCC) (HCC); Status post [...] on file Legal Sex Female 3:22 AM DIRECTOR SPEECH Gender Identity Not on file Sexual Orientation [...] Diagnosis Comments DEVICE CHECK - REMOTE Routine 09/13/2022 5:13 PM CDT Paroxysmal atrial fibrillation (CMS/HCC) (HCC) Status post placement of implantable loop recorder Syncope and collapse documented in this encounter Results * DEVICE CHECK - REMOTE (09/13/2022 5:13 [...] collapse documented in this encounter Care Teams Cathode Washer Relationship Specialty Start Date End Date Gadiel Zavala MD [address] [address] PCP - General 06/13/16 Lyudmila Knox, RN Registered Nurse 04/14/17 Jennifer Escalona, LOGAN Registered Nurse 05/10/17 documented as of this encounter
--- OUTSIDE RECORDS SUMMARY | 2024-04-17 11:49 | XMS_ITS | Encounter Summary ---
Author Organization [facility] Address [address] [facility] [address] [place] [address] Care Team Providers Care Floor Molder Name Role Phone Gadeil Zavala MD Primary Care Provider [phone] Lyudmila Knox RN Unavailable Unavailable Jennifer Escalona RN Unavailable Agustina vailable Reason for Visit * Reason Onset Date Comments Authorization/Certification 08/02/2022 Encounter Details Date Type Department Care Team (Late st Contact Info) Description 08/02/2022 Telephone [facility] Cardiology [address] [facility] [address] [place] [address] Bobo Perez MD [address] [facility] [address] [place] [address] Authorization/Certifica tion Social History Tobacco Use Types Packs/Day Years Used Date Smoking Tobacco: Former Cigarettes Q uit: 04/14/1987 Smokeless Tobacco: Never Alcohol Use Standard Drinks/Week Comments Yes 0 (1 standard drink = 0.6 oz pur e alcohol) social Comments No Sex and Gender Information Value Date Recorded Sex Assigned at Not on file Legal Sex Female 3:22 AM AUDIO VIDEO TECH Gender Identity Not on file Sexual Orientation Not on file documented as of this encounter Miscellaneous Notes * Telephone Encounter - Deborah Platt - 08/02/2022 6:32 PM CDT Called [facility] to check status,. NPR for CPT code 52230 Call ref # [id number], No further action required * Telephone Encounter - Deborah Platt - 08/02/2022 6:31 PM CDT ----- Message from Katey Griffin RN sent at 06/22/2022 2:13 PM AUDIO VIDEO TECH ----- PROCEDURE/TEST ORDERED:loop recorder LOCATION: DATE OF SERVICE:August 10 INSURANCE:[employer] medicare DIAGNOSIS:syncope ORDERING PROVIDER:thelma ADDITIONAL DETAILS: documented in this encounter Plan of Treatment [...] on filedocumented in this encounter Care Teams Floor Molder Relationship Specialty Start Date End Date Gadiel Zavala MD [address] [place] [address] PCP - General 06/13/16 Lyudmila Knox, RN Registered Nurse 04/14/17 Jennifer Escalona, RN Registered Nurse 05/10/17 documented as of this encounter
--- OUTSIDE RECORDS SUMMARY | 2024-04-17 11:49 | XMS_ITS | Encounter Summary ---
Author Organization [facility] Address [address] [facility] [address] [place] [address] Care Team Providers Care Chuck Tender Name Role Phone Gadiel Zavala MD Primary Care Provider [phone] [phone] Lyudmila Knox RN Unavailable Unavailable Jennifer Escalona RN Unavailable Agustina vailable Encounter Details Date Type Department Care Team (Late st Contact Info) Description 12/14/2022 Telephone [facility] Cardiology [address] [facility] [address], [place] [address] Bobo Perez MD [address] [place] [address] [address] [place] [address] Social History Tobacco Use Types Packs/Day Years Used Date Smoking Tobacco: Former Cigarettes Q uit: 04/14/1987 Smokeless Tobacco: Never Alcohol Use Standard Drinks/Week Comments Yes 0 (1 standard drink = 0.6 oz pur e alcohol) social Comments No Sex and Gender Information Value Date Recorded Sex Assigned at Not on file Legal Sex Female 3:22 AM JACKHAMMER SPLITTER OPERATOR Gender Identity Not on file Sexual Orientation Not on file documented as of this encounter Miscellaneous Notes * Telephone Encounter - Annia Shaw MA - 01/13/2023 2:25 PM CDT As of 01-13-2023 we still have not received a remote download from pt. She is no longer Dc'd, calledpt to request she send in a remote thru her [employer]. I informed her that if she had any questions or needs help with that to give me a return call. * Telephone Encounter - Annia Shaw MA - 01/04/2023 9:58 AM CDT Called pt again to request that she send in a manual report. Again had to LMOR requesting a return call * Telephone Encounter - Annia Shaw MA - 12/29/2022 2:29 PM CDT Carelink website shows pt is no longer Dc'd. Called pt LMOR requesting that she send in a manual report. Instructed to call office if she needs assistance * Telephone Encounter - Annie Lew RN - 12/14/2022 12:09 PM CDT Noted, thank you. * Telephone Encounter - Annia Shaw MA - 12/14/2022 11:27 AM CDT Pt returned called, informed of the juana and bluetooth, she states she is unable to find the juana I explained that she may need to call [employer] for them to help her reload it, I also informed her that her bluetooth must me on at all times. She said no one told her that. Will monitor the website Gilberto Valencia * Telephone Encounter - Annia Shaw MA - 12/14/2022 11:09 AM CDT Pt's device showing Dc'd on the [employer] website, shows that the bluetooth may be turned off. Called ptto inform her of this, had to LMOR detailed message left for pt/pt's daughter. documented in this encounter Plan of Treatment [...] on filedocumented in this encounter Care Teams Chuck Tender Relationship Specialty Start Date End Date Gadiel Zavala MD [address] [address] PCP - General 06/13/16 Lyudmila Knox, RN Registered Nurse 04/14/17 Jennifer Escalona, RN Registered Nurse 05/10/17 documented as of this encounter
--- OUTSIDE RECORDS SUMMARY | 2024-04-17 11:49 | XMS_ITS | Encounter Summary ---
Author Organization [facility] Address [address] [place] [address] Care Team Providers Care Lithographic Press Operator Name Role Phone Gadiel Zavala MD Primary Care Provider [phone] [phone] Lyudmila Knox RN Unavailable Unavailable Jennifer Escalona RN Unavailable Agustina vailable Reason for Visit * Cardiology (Routine) - Closed Specialty Diagnoses / Procedures Referred By Contmarianela t Referred To Contact Diagnoses Paroxysmal atrial fibrillation (CMS/HCC) (HCC) Status post placement of implantable loop recorder Syncope and collapse Procedures DEVICE CHECK - REMOTE Bobo Perez MD Phone: tel: fax: [facility] Referral ID Status Reason Start Date Expiration Date Visits Re quested Visits Authorized [id number] Closed 08/09/2022 02/09/2024 1 1 Encounter Details Date Type Department Care Team (Latest Contact Info) Description 03/06/2023 11:15 AM OCEANOLOGIST Ancillary Procedure [facility] Cardiology [address] [place] [phone] Paroxysmal atrial fibrillation (CMS/HCC) (HCC); Status post [...] on file Legal Sex Female 3:22 AM OCEANOLOGIST Gender Identity Not on file Sexual Orientation [...] Diagnosis Comments DEVICE CHECK - REMOTE Routine 03/22/2023 4:50 PM OCEANOLOGIST Paroxysmal atrial fibrillation (CMS/HCC) (HCC) Status post placement of implantable loop recorder Syncope and collapse documented in this encounter Results * DEVICE CHECK - REMOTE (03/22/2023 4:50 PM OCEANOLOGIST) Anatomical Region Laterality Modality Other Narrative 04/21/2023 12:26 PM OCEANOLOGIST [employer] [id number] Loop Recorder. Dx; Syncope, Afib. DOI 08/08/2022-Chris. Carelink remote monitoring. Routine ILR remote. Normal device function. Battery function-Ok. Presenting rhythm-VS, regular 100 bpm. Medications; ASA 81 mg, Toprol XL. No auto or patient recorded episodes noted. See scanned report. [facility]link remote f/u 04/17/2023. Annie Lew RN Bobo Perez MD [facility] PROC EDURES Final Result documented in this encounter Visit Diagnoses Diagnosis Paroxysmal atrial fibrillation (CMS/HCC) (HCC) Atrial fibrillation Status post placement of implantable loop recorder Syncope and collapse documented in this encounter Care Teams Lithographic Press Operator Relationship Specialty Start Date End Date Gadiel Zavala MD [address] [address] PCP - General 06/13/16 Lyudmila Knox, RN Registered Nurse 04/14/17 Jennifer Escalona, LOGAN Registered Nurse 05/10/17 documented as of this encounter
--- OUTSIDE RECORDS SUMMARY | 2024-04-17 11:50 | XMS_ITS | Encounter Summary ---
Author Organization [facility] Healthcare Address [address] [place] [address] Care Team Providers Care Supervisor Stitching Department Name Role Phone Gadiel Zavala MD Primary Care Provider [phone] [phone] Lyudmila Knox RN Unavailable Unavailable Jennifer Escalona RN Unavailable Agustina vailable Reason for Visit * Reason Comments Follow-up Back Pain Encounter Details Date Type Department Care Team (Late st Contact Info) Description 10/17/2017 3:45 PM CDT Office Visit [facility] [address] [id number] [place] [address] [facility] [address] [id number] Radiculopathy, lumbosacral region (Primary Dx) Discharge Disposition: Discharge to home or self [...] on file 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 Mylene Gutierrez. documented in this encounter Ordered Prescriptions Prescription Sig Dispense Quantity Refills Last Filled Start Date End Date oxyCODONE-acetamin ophen (PERCOCET) 10-325 mg per tabletIndications: Pain Take 1 tablet by mouth every 4 (four) hours as needed for pain. Max 5 tablets/day 150 tablet 10/17/2017 08/27/2018 documented in this encounter Discharge Disposition Disposition Code Departure Means Destination Discharge to home or self care documented in this encounter Progress Notes * Brice Eisenberg MD - 10/17/2017 3:45 PM CDT Images from the original note were not included. Patient Name: Kaitlin Bond : 1950 Today's Date: 10/17/2017 PCP: Gadiel Zavala MD Referring: No ref. provider found Chief Complaint Patient presents with ??? Follow-up ??? Back Pain HPI Kaitlin Bond is a 67 y.o. year old female here for a return visit. She presents with constant lower back pain. The pain is constant and described as aching/soreness. It rates 7/10 on the numericpain scale. She reports her pain has been worse since her last visit. Pt reports she has been falling approximately 6 times. Yesterday she fell and hurt her shoulder. Pt denies dizziness, but states its both of her legs that cause her to fall. Kaitlin mentions she went to the emergency department,and was not admitted. She is open to a referral to a surgeon for consult on her back. She notes thelast time she had to use contrast dye for a CT she broke out in hives. Kaitlin reports she is not having relief with her Percocet. Patient denies any motor weakness or bowel/bladder issues. She denies h/o kidney issues. Allergies Allergen Reactions ??? Dye Hives Was getting MRI and developed hives while dye infusion. ??? Adhesive Tape-Silicones Rash Reaction: RASH Past Medical History: Diagnosis Date ??? Anemia ??? Arthritis ??? Awareness under anesthesia ??? Chronic back pain ??? Depression ??? GERD (gastroesophageal reflux disease) ??? Hyperlipidemia ??? Hypertension ??? Hypothyroidism ??? Neuropathy (CMS/HCC) Past Surgical History: Procedure Laterality Date ??? ANTERIOR FUSION CERVICAL SPINE ??? HYSTERECTOMY ??? SPINE SURGERY lumbar Social History Social History ??? Marital status: Spouse name: N/A ??? Number of children: N/A ??? Years of education: N/A Occupational History ??? Not on file. Social History Main Topics ??? Smoking status: Former Smoker Quit date: 04/14/1987 ??? Smokeless tobacco: Never Used ??? Alcohol use Yes Comment: social ??? Drug use: No ??? Sexual activity: Defer Other Topics Concern ??? Not on file Social History Narrative ??? No narrative on file Family History Problem Relation Age of Onset ??? Hypertension Mother ??? Leukemia Father HOME MEDICATIONS : amLODIPine (NORVASC) 10 mg tablet atorvastatin (LIPITOR) 20 mg tablet b complex vitamins capsule calcium carbonate-vitamin D3 600 mg (1,500 mg)-800 unit tablet,chewable celecoxib (CeleBREX) 200 mg capsule chlorhexidine (HIBICLENS) 4 % external liquid eszopiclone (LUNESTA) tablet FLUoxetine (PROzac) 20 mg capsule levothyroxine (SYNTHROID, LEVOTHROID) 50 mcg tablet lisinopril (PRINIVIL,ZESTRIL) 40 mg tablet metoprolol XL (TOPROL-XL) 100 mg 24 hr tablet mupirocin (BACTROBAN) 2 % nasal ointment naproxen (NAPROSYN,ALEVE) 220 mg tablet omeprazole (PriLOSEC) 40 mg capsule oxyCODONE-acetaminophen (PERCOCET) 10-325 mg per tablet Review of Systems Review of Systems Constitutional: Negative. Negative for chills, fever and unexpected weight change. HENT: Negative. Negative for hearing loss, nosebleeds and sore throat. Eyes: Negative. Negative for discharge and redness. Respiratory: Negative. Negative for cough, chest tightness, shortness of breath and wheezing. Cardiovascular: Negative. Negative for chest pain and palpitations. Gastrointestinal: Negative. Negative for abdominal distention and vomiting. Endocrine: Negative. Negative for polydipsia and polyuria. Genitourinary: Negative. Negative for difficulty urinating, frequency and urgency. Musculoskeletal: Positive for back pain. Skin: Negative. Negative for color change and rash. Allergic/Immunologic: Negative. Negative for environmental allergies and immunocompromised state. Neurological: Negative. Negative for dizziness and seizures. Hematological: Negative. Negative for adenopathy. Does not bruise/bleed easily. Psychiatric/Behavioral: Negative. Negative for confusion, decreased concentration and hallucinations. All other systems reviewed and are negative. Physical Exam Vitals: 10/17/17 1605 BP: (!) 174/105 Pulse: 78 Resp: 18 SpO2: 100% There is no height or weight on file to calculate BMI. Physical Exam Constitutional: She is oriented to person, place, and time. She appears well- developed and well-nourished. HENT: Head: Normocephalic and atraumatic. Eyes: Conjunctivae and EOM are normal. Pupils are equal, round, and reactive to light. Neck: Neck supple. No tracheal deviation present. Cardiovascular: Normal rate. Pulmonary/Chest: Effort normal. Abdominal: Soft. Musculoskeletal: Lumbar back: She exhibits decreased range of motion and tenderness. Arms: Neurological: She is alert and oriented to person, place, and time. She has normal strength and normal reflexes. No cranial nerve deficit or sensory deficit. Skin: Skin is warm, dry and intact. Psychiatric: She has a normal mood and affect. Her speech is normal and behavior is normal. Nursing note and vitals reviewed. Review of Data: SOAPP-R and PHQ-9 questionnaires were reviewed with scores of 32 and 17, respectively. Most recent urine toxicology screen was reviewed, along with local prescription drug monitoring program. Assessment Problem List None Patient Active Problem List Diagnosis ??? Cervicalgia ??? Cervical radiculopathy ??? 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 Cervical spinal stenosis ??? Chronic midline low back pain with bilateral sciatica ??? Lumbosacral spondylosis without myelopathy ??? Radiculopathy, lumbosacral region ??? Spinal stenosis of lumbar region without neurogenic claudication ??? Lumbar post-laminectomy syndrome ??? Pain of lower extremity ??? Shortness of breath ??? Weakness ??? Ataxia ??? Hypertension ??? Memory impairment ??? Anaclitic depression ??? Disease of thyroid gland ??? Constipation ??? Arthritis ??? Pain of hand ??? Notalgia ??? Postoperative back pain ??? Herniation of intervertebral disc of cervical region ??? Herniated lumbar intervertebral disc ??? Compression fracture of lumbar vertebra (CMS/HCC) ??? Chronic pain ??? Lumbago ??? Lumbosacral radiculopathy ??? Osteoarthritis of lumbosacral spine without myelopathy Fide Pickard has a fairly complicated presentation today. She has pain that seems that it has worsened substantially and she has had an increase in the number of falls lately. I personally reviewed CT scan of the lumbar spine which had to be performed without contrast because she noted allergy though thisis hives. She has a worsening L1 fracture with some retropulsion of fragments. This is a chronic fracture though does seem worse with 50% loss of height. Without contrast her some difficulty in fullyevaluating but there is some severe neural foraminal stenosis at multiple levels as well. She she has unfortunately not getting benefit from spinal cord stimulator system at this point. After review o f the CT scan I am going to refer her to Dr. Mylene Gutierrez for her expertise. Depending on her evaluation we did consider explant of stimulator so that she can have an MRI or the possibility of going ahead with contrast exposure for CT myelogram. In the interim I am going to get her prescription today for Percocet 10/325 with 150 tablets available per month with maximum 5 tablets per day. I appreciate Dr. Gutierrez's input, and I will see Pat back shortly for further evaluation and treatment planningbased on the visit with Dr. Gutierrez. No Follow-up on file. This note is prepared by Dorita Adkins, acting as a scribe for Brice Eisenberg MD. I, Omar Eisenberg, have personally performed the services described in the documentation , reviewed the documentation as recorded by the scribe in my presence, and it accurately and completely records my words and actions though there are potential variances in recording and rn surgery icu. documented in this encounter Plan of Treatment [...] as of this encounter Visit Diagnoses Diagnosis Radiculopathy, lumbosacral region- Primary Thoracic or lumbosacral neuritis or radiculitis, unspecified documented in this encounter Administered Medications Inactive Administered Medications - up to 3 most recent administrations Medication Order MAR Action Action Date Dose Rate Site ketorolac (TORADOL) injection 30 mg 30 mg, intramuscular, Once, On Mon10/17/17 at 1730, For 1 dose, Phase IIndications:Radiculopathy, lumbosacral region Given 10/17/2017 4:35 PM CDT 30 mg Left Deltoid documented in this encounter Care Teams Supervisor Stitching Department Relationship Specialty Start Date End Date Gadiel Zavala MD [address] [address] PCP - General 06/13/16 Lyudmila Knox, RN Registered Nurse 04/14/17 Jennifer Escalona RN Registered Nurse 05/10/17 documented as of this encounter
--- OUTSIDE RECORDS SUMMARY | 2024-04-17 11:50 | XMS_ITS | Encounter Summary ---
Author Organization [facility] Healthcare Address [address] [place] [address] Care Team Providers Care Prescriptionist Name Role Phone Gadiel Zavala MD Primary Care Provider [phone] [phone] Lyudmila Knox RN Unavailable Unavailable Jennifer Escalona RN Unavailable Agustina vailable Encounter Details Date Type Department Care Team (Late st Contact Info) Description 09/26/2017 Telephone [facility] [id number] [place] [address] Janine Vail RN Social History Tobacco Use Types Packs/Day Years Used Date Smoking Tobacco: Former Cigarettes Q uit: 04/14/1987 Smokeless Tobacco: Never Alcohol Use Standard Drinks/Week Comments Yes 0 (1 standard drink = 0.6 oz pur e alcohol) social Comments No Sex and Gender Information Value Date Recorded Sex Assigned at Not on file 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 She reports falling 6 times while out of town and has been incontinent of urine. Dr Eisenberg notified and pt instructed to beevaluated in the emergency room. Pt verbalized understanding. documented in this encounter Plan [...] on filedocumented in this encounter Care Teams Prescriptionist Relationship Specialty Start Date End Date Gadiel Zavala MD [address] [address] PCP - General 06/13/16 Lyudmila Knox, RN Registered Nurse 04/14/17 Jennifer Escalona, LOGAN Registered Nurse 05/10/17 documented as of this encounter
--- OUTSIDE RECORDS SUMMARY | 2024-04-17 11:50 | XMS_ITS | Encounter Summary ---
Author Organization [facility] Healthcare Address [address] [place] [address] Care Team Providers Care Machine Deburrer Name Role Phone Gadiel Zavala MD Primary Care Provider [phone] [phone] Lyudmila Knox RN Unavailable Unavailable Jennifer Escalona RN Unavailable Agustina vailable Encounter Details Date Type Department Care Team (Late st Contact Info) Description 08/07/2017 Telephone [facility] [address] [place] [address] [place] [address] [facility] [address] [place] [address] Social History Tobacco Use Types Packs/Day Years Used Date Smoking Tobacco: Former Cigarettes Q uit: 04/14/1987 Smokeless Tobacco: Never Alcohol Use Standard Drinks/Week Comments Yes 0 (1 standard drink = 0.6 oz pur e alcohol) social Comments No Sex and Gender Information Value Date Recorded Sex Assigned at Not on file 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 She had them done at [facility]. documented in this encounter Plan of Treatment [...] on filedocumented in this encounter Care Teams Machine Deburrer Relationship Specialty Start Date End Date Gadiel Zavala MD [address] [address] PCP - General 06/13/16 Lyudmila Knox, RN Registered Nurse 04/14/17 Jennifer Escalona, LOGAN Registered Nurse 05/10/17 documented as of this encounter
--- OUTSIDE RECORDS SUMMARY | 2024-04-17 11:50 | XMS_ITS | Encounter Summary ---
Author Organization [facility] Healthcare Address [address] [place] [address] Care Team Providers Care Insights Manager Name Role Phone Gadiel Zavala MD Primary Care Provider [phone] [phone] Lyudmila Knox RN Unavailable Unavailable Jennifer Escalona RN Unavailable Agustina vailable Encounter Details Date Type Department Care Team (Late st Contact Info) Description 06/28/2017 9:53 AM BANKING PARALEGAL - 06/28/2017 11:02 AM BANKING [facility]GAL Hospital Encounter [facility] [address] [place] [address] [place] [address] [facility] [address] [id number] Lumbar post-laminectomy syndrome; Lumbosacral spondylosis without myelopathy; Radiculopathy, lumbosacral region; Spinal stenosis of lumbar region without neurogenic claudication; Spondylosis of cervical joint without myelopathy Discharge Disposition: Discharge to home or self care Social History Tobacco Use Types Packs/Day Years Used Date Smoking Tobacco: Former Cigarettes Q uit: 04/14/1987 Smokeless Tobacco: Never Alcohol Use Standard Drinks/Week Comments Yes 0 (1 standard drink = 0.6 oz pur e alcohol) social Comments Unknown Sex and Gender Information Value Date Recorded Sex Assigned at Not on file Legal Sex Female 3:22 AM BANKING PARALEGAL Gender Identity Not on file Sexual Orientation Not on file documented as of this encounter Last Filed Vital Signs Vital Sign Reading Time Taken Comments Blood Pressure 164/110 06/28/2017 10:16 AM BANKING PARALEGAL patient will fu with pcp Pulse 87 06/28/2017 10:16 AM BANKING PARALEGAL Temperature 36.8 ??C (98.2 ??F) 06/28/2017 1 0:16 AM BANKING PARALEGAL Respiratory Rate 16 06/28/2017 10:1 6 AM BANKING PARALEGAL Oxygen Saturation 100% 06/28/2017 10: 16 AM BANKING PARALEGAL Inhaled Oxygen Concentration - - Weight - - Height - - Body Mass Index - - documented in this encounter Medications at Time of Discharge acetaminophen (TYLENOL) 325 mg tablet Take 2 tablets (650 mg total) by mouth every 4 (four) hours as needed 03/01/2017 atorvastatin (LIPITOR) 20 mg tablet Take 1 tablet (20 mg total) by mouth daily 03/31/2017 eszopiclone (LUNESTA) tabletIndications: Insomnia Take 1 tablet (3 mg total) by mouth nightly 1 04/25/2017 levothyroxine (SYNTHROID, LEVOTHROID) 50 mcg tablet Take 1 tablet (50 mcg total) by mouth daily 03/31/2017 omeprazole (PriLOSEC) 40 mg capsule Take 1 capsule (40 mg total) by mouth daily Two tablets daily amLODIPine (NORVASC) 10 mg tablet Take 1 tablet (10 mg total) by mouth daily 03/03/2017 3 b complex vitamins capsuleIndications :3000 Take 3 capsules by mouth daily. 3 calcium carbonate-vitamin D3 600 mg (1,500 mg)-800 unit tablet,chewable Take 2 tablets by mouth daily. 3 celecoxib (CeleBREX) 200 mg capsule Take 200 mg by mouth daily. 04/04/2017 3 chlorhexidine (HIBICLENS) 4 % external liquidIndications: Skin Disinfection Shower with daily for 5 days prior to surgery, especially morning of surgery 236 mL 05/10/2017 3 FLUoxetine (PROzac) 20 mg capsule Take 40 mg by mouth daily. 03/31/2017 3 lisinopril (PRINIVIL,ZESTRIL) 40 mg tablet Take 20 mg by mouth daily. 02/21/2017 2 mupirocin (BACTROBAN) 2 % nasal ointmentIndication s:Methicillin-Resi stant S. Aureus Nasal Colonization Apply to each nostril twice daily for five (5) days. After application, press sides of nose together and gently massage. 22 g 05/10/2017 3 naproxen (NAPROSYN,ALEVE) 220 mg tablet Take 220 mg by mouth every 12 (twelve) hours as needed for pain. 3 oxyCODONE-acetamin ophen (PERCOCET) 10-325 mg per tabletIndications: Pain Take 1 tablet by mouth every 12 (twelve) hours as needed for pain Earliest Fill Date: 05/10/17. 60 tablet 05/10/2017 3 documented as of this encounter Discharge Disposition Disposition Code Departure Means Destination Discharge to home or self care documented in this encounter H&P Notes * Brice Eisenberg MD - 06/28/2017 11:02 AM CST I have reviewed the H&P, examined the patient, and endorse the findings as written. Plan of Care : Based on the above findings, I consider Kaitlin Bond to be an acceptable risk for : Procedure(s): Neurostimulator Analysis Spinal Cord [address] [facility] Source Note - Brice Eisenberg MD - 06/22/2017 11:10 AM BANKING PARALEGAL Patient Name: Kaitlin Bond : 1950 Today's Date: 06/22/2017 PCP: Gadiel Zavala MD Referring: No ref. provider found Patient Active Problem List Diagnosis ??? Cervicalgia ??? Cervical radiculopathy ??? 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 Cervical spinal stenosis ??? Chronic midline low back pain with bilateral sciatica ??? Lumbosacral spondylosis without myelopathy ??? Radiculopathy, lumbosacral region ??? Spinal stenosis of lumbar region without neurogenic claudication ??? Lumbar post-laminectomy syndrome Allergies Allergen Reactions ??? Dye Hives Was [...] mcg tablet lisinopril (PRINIVIL,ZESTRIL) 40 mg tablet mupirocin (BACTROBAN) 2 % nasal ointment naproxen (NAPROSYN,ALEVE) 220 mg tablet omeprazole (PriLOSEC) 40 mg capsule oxyCODONE-acetaminophen (PERCOCET) 10-325 mg per tablet PE: HEENT- WNL RESP- WNL CARDIO- WNL ABD- WNL EXTR- WNL Post-op Dx: Same ING [facility] documented in this encounter Miscellaneous Notes * Perioperative Nursing Note - Shruthi Ramirez RN - 06/28/2017 10:23 AM CST Dressings were removed, incisions look great, no warmth or redness, glue is intact, pt tolerated well. ING PAR[facility]GAL * Op Note - Brice Eisenberg MD - 06/28/2017 10:15 AM CST Procedure performed: Complex reprogramming of spinal cord stimulator pulse generator Indication for procedure: Patient is returning following spinal cord stimulator implant with diagnoses of lumbago and lumbar post-laminectomy syndrome. Description procedure: With the help of the [facility] car sales representative, complex reprogramming of Patspinal cord stimulator pulse generator was performed. Burst stimulation was activated. Note that her incision sites look excellent and there is no evidence of infection. We will plan to see her back in 1 month earlier if needed. She was cautioned against any excessive bending lifting or twisting for the next 5 weeks. ING PAR[facility]GAL documented in this encounter Plan of Treatment [...] Procedure Name Priority Date/Time Associated Diagnosis Comments NEUROSTIMULATOR ANALYSIS SPINAL CORD [address] 06/28/2017 4:19 PM BANKING PARALEGAL post op stimm documented in this encounter Visit Diagnoses Diagnosis Lumbar post-laminectomy syndrome Postlaminectomy syndrome, lumbar region Lumbosacral spondylosis without myelopathy Radiculopathy, lumbosacral region Thoracic or lumbosacral neuritis or radiculitis, unspecified Spinal stenosis of lumbar region without neurogenic claudication Spondylosis of cervical joint without myelopathy documented in this encounter Care Teams Insights Manager Relationship Specialty Start Date End Date Gadiel Zavala MD [address] [address] PCP - General 06/13/16 Lyudmila Knox RN Registered Nurse 04/14/17 Jennifer Escalona, RN Registered Nurse 05/10/17 documented as of this encounter
--- OUTSIDE RECORDS SUMMARY | 2024-04-17 11:50 | XMS_ITS | Encounter Summary ---
Author Organization [facility] Address [address] [place] [address] Care Team Providers Care Transcription Specialist Name Role Phone Gadiel Zavala MD Primary Care Provider [phone] [phone] Lyudmila Knox RN Unavailable Unavailable Jennifer Escalona RN Unavailable Agustina vailable Encounter Details Date Type Department Care Team (Late st Contact Info) Description 10/16/2021 Orders Only [facility] Cardiology [address] [place] [address] [place] [address] [place] [id number] Social History Tobacco Use Types Packs/Day Years Used Date Smoking Tobacco: Former Cigarettes Q uit: 04/14/1987 Smokeless Tobacco: Never Alcohol Use Standard Drinks/Week Comments Yes 0 (1 standard drink = 0.6 oz pur e alcohol) social Comments No Sex and Gender Information Value Date Recorded Sex Assigned at Not on file Legal Sex Female 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 AND 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 Gender Identity Not on file Sexual Orientation [...] Associated Diagnosis Comments CARDIOLOGY DOCUMENT SCAN Routine 10/16/2021 documented in this encounter Results * Cardiology Document Scan (10/16/2021) Anatomical Region Laterality Modality Other Bobo Perez MD [facility] CARDIAC SERVICES PROC EDURES Final Result documented in this encounter Visit Diagnoses Not on filedocumented in this encounter Care Teams Transcription Specialist Relationship Specialty Start Date End Date Gadiel Zavala MD [address] [address] PCP - General 06/13/16 Lyudmila Knox, RN Registered Nurse 04/14/17 Jennifer Escalona, RN Registered Nurse 05/10/17 documented as of this encounter
--- OUTSIDE RECORDS SUMMARY | 2024-04-17 11:50 | XMS_ITS | Encounter Summary ---
Author Organization [facility] Healthcare Address [address] [place] [address] Care Team Providers Care Test Grader Name Role Phone Gadiel Zavala MD Primary Care Provider [phone] Lyudmila Knox RN Unavailable Unavailable Jennifer Escalona RN Unavailable Agustina vailable Encounter Details Date Type Department Care Team (Late st Contact Info) Description 06/22/2017 11:30 AM AIRPORT MANAGER - 06/22/2017 1:30 PM [facility] Surgery [facility] Operating Room [address] [place] [address] Brice Eisenberg MD [id number] [place] [id number] Insertion Spinal Cord Stimulator Surgery Details Date/Time Status Location OR Service Patient Class Case Class Case Type Trauma Case? 06/22/2017 11:30 AM Posted OPERATING ROOM OR Pain Management Outpatient Elective Panel 1 Procedure LRB Anes Op Region Wound Class Comments Insertion Spinal Cord Stimulator N/A Monitor Anesthesia Care Back Class I - Clean Surgeon Surgeon Role Service Panel Brcie Eisenberg MD Primary Pain Managem ent 1 documented in this encounter Social History Tobacco Use Types Packs/Day Years Used Date Smoking Tobacco: Former Cigarettes Q uit: 04/14/1987 Smokeless Tobacco: Never Alcohol Use Standard Drinks/Week Comments Yes 0 (1 standard drink = 0.6 oz pur e alcohol) social Comments Unknown Sex and Gender Information Value Date Recorded Sex Assigned at Not on file Legal Sex Female 3:22 AM AIRPORT MANAGER Gender Identity Not on file Sexual Orientation Not on file documented as of this encounter Last Filed Vital Signs Vital Sign Reading Time Taken Comments Blood Pressure 173/100 06/22/2017 1:30 PM AIRPORT MANAGER inaccurate r/t to wrong size blood pressure cuff Pulse 96 06/22/2017 1:30 PM AIRPORT MANAGER Temperature 36.9 ??C (98.4 ??F) 06/22/2017 1 :21 PM AIRPORT MANAGER Respiratory Rate 15 06/22/2017 1:30 PM AIRPORT MANAGER Oxygen Saturation 100% 06/22/2017 1:3 0 PM AIRPORT MANAGER Inhaled Oxygen Concentration - - Weight 55.8 kg (123 lb) 06/22/2017 10:0 1 AM AIRPORT MANAGER Height 160 cm (5' 3 ) 06/22/2017 10:01 AM AIRPORT MANAGER Body Mass Index 21.79 06/22/2017 10:01 AM AIRPORT MANAGER documented in this encounter Medications at [...] H&P Notes * Brice Eisenberg MD - 06/22/2017 11:10 AM CST Patient Name: Kaitlin Bond : 1950 Today's [...] ABD- WNL EXTR- WNL Post-op Dx: Same ORT MANAGER documented in this encounter Miscellaneous Notes * Op Note - Brice Eisenberg MD - 06/22/2017 12:11 PM CST PROCEDURE: Implantation of St. Yong 60 cm leads/arrays x2 and implant of St. Yong spinal cord stimulator generator PREOPERATIVE DIAGNOSES: Patient Active Problem List Diagnosis ??? Cervicalgia ??? Cervical radiculopathy ??? 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 Cervical spinal stenosis ??? Chronic midline low back pain with bilateral sciatica ??? Lumbosacral spondylosis without myelopathy ??? Radiculopathy, lumbosacral region ??? Spinal stenosis of lumbar region without neurogenic claudication ??? Lumbar post-laminectomy syndrome POSTOPERATIVE DIAGNOSES: Same INDICATIONS FOR PROCEDURE: This is a very pleasant patient with the above sources of pain who has tried and failed more conservative measure. The patient underwent a successful spinal cord stimulatortrial with at least 50% relief of their pain and increased function. SURGEON: Omar Eisenberg HEALTHCARE ECONOMICS CONSULTANT: [facility] ANESTHESIA: Monitored anesthesia care. ESTIMATED BLOOD LOSS: Minimal. COMPLICATIONS: None DESCRIPTION OF PROCEDURE: I reviewed the most recent history and physical, and there were no changes noted. After review of risks/benefits, written informed consent was obtained. Risks discussed included but were not limited to: headache, cerebrospinal fluid leak, bleeding, infection, lack of pain control, lead migration, painful lead or generator site, possible requirement for revision of pocketor leads. The patient was taken to the operating room and allowed to place themself in the prone position. The patient received IV antibiotics preoperatively. All pressure points were checked and padded and standard anesthesia monitors were applied. The thoracolumbar region was prepped and draped in the usual fashion. Fluoroscopy was used to identify the L1/L2 interlaminar space. Approximately 1.5 vertebral body levels below this and paramedian to the left at the midline of the pedicles, the skin and subcutaneous tissues were anesthetized with local (note all local used is 1% lidocaine with 1:200,000 epinerphrine). Next, a #22g, 3.5?? spinal needle was advanced under fluoroscopic guidance until it contact the [id number]. After negative aspiration, 1ml of local anesthetic was injected for periosteal anesthesia, and an additional 2ml was injected upon withdrawing the needle for needle tract anesthesia. A 14-gauge Tuohy needle was then advanced under fluoroscopic guidance at a shallow angle until the L2 laminawas contacted. The needle was subsequently advanced through the ligamentum flavum using loss of resistance technique and fluoroscopic guidance. A 60 cm lead was advanced under fluoroscopic guidance and lateralized to the left of midline. This procedure was repeated approximately 0.5 cm inferior to the above level for the second lead, such that the inferiorly placed lead lie to the right of the superiorly placed lead. Please see xray imaging for final lead tip placement. At this point, the leadswere tested with the assistance of the spinal cord stimulator customer service representative teller, and the patient endors ed coverage of all areas of pain. As the patient was happy with this stimulation coverage, deeper sedation was given. After anesthetizing overlying skin and subcutaneous tissue with local anesthetic, a #15 blade was used to make an incision over the left flank where the generator pocket was to be created. Blunt dissection and Metzenbaum were utilized to create a pocket. Again after local anesthetic was used for skin and subcutaneous tissue, skin incision was made cephalad to the superiorly placed needle and extending to the inferiorly placed needle. Blunt dissection was carried down to the lumbodorsal fascia. The Tuohy needles were removed, and an anchor was placed over each lead and deployed into the fascia, utilizing fluor oscopy to ensure no excessive lead migration. These anchors were then sutured in place with 0 Ethibond in 2 locations over each anchor. A 10-inch perforated ON-Q catheter was placed via an introducerthat was passed from the lumbar incision to the right flank. The 10-inch catheter was passed back through the introducer and the introducer removed leaving the catheter within the lumbar incision. The tunneling device was then passed from the lumbar incision to the left flank pocket, and the tunneling device was removed leaving a plastic sleeve in place. Both leads as well as the ON-Q catheter were passed through the plastic sleeve to the left flank pocket, and the plastic sleeve was removed, leaving the leads and the ON-Q catheter within the generator pocket. A St. Yong generator was broughtto the field, and the leads were placed within the channels. These were tightened in place with a torque wrench. The generator was placed within the pocket, which was irrigated copiously. An impedance check verified an intact system. Both incisions were copiously irrigated with saline containing neomycin, polymyxin, and bacitracin. 500mg vancomycin powder was then placed, divided between each incision site. The incisions were closed in 2 layers with 2-0 Vicryl deep and 4-0 running Monocryl at the skin. Exofin was placed at the percutaneous entry of the ON-Q as well as over both incisions. A 1-inch Steri- Strip was placed over the ON-Q catheter. Sterile 4x4 and Tegaderm was placed as a final dressing. The ON-Q catheter will be attached to a 270 mL PainBuster filled with 0.5% bupivacaine to be delivered at 2 mL/h. All sharp, sponge, and instrument counts were correct x3. Preoperative and postoperative time-outs occurred, verifying the patient and appropriate site of procedure. ORT MANAGER * Pre-Procedure Instructions - Melly Vazquez RN - 06/21/2017 10:27 AM AIRPORT MANAGER We are pleased that you and your doctor have chosen [facility] for your surgery. We hope that the following information will help make your visit a pleasant one. Surgery Date: 06/22/2017 arrive at 0930 Before your surgery: ?? Notify your doctor of ANY change in your health such as a cold, sore throat, fever, any infection or a change in the problem for which you are having your surgery. ?? Follow any instructions given to you by your doctor or surgeon. Check with your doctor if you need to STOP taking: ?? Aspirin (ordered by your doctor) One week before surgery STOP taking: ?? All herbal supplements ?? Aspirin (not ordered by your doctor) ?? Aleve, Advil, Motrin, Ibuprofen, or other similar medications (Tylenol is okay). 24 hours before your surgery: ?? No smoking or alcoholic drinks. Night before your surgery: ?? Do not eat or drink anything after midnight. ?? Follow surgeon's instructions for anti-bacterial shower night before and morning of surgery. Day of surgery: ?? Do not swallow any water when you brush your teeth. ?? ONLY take these pills with a tiny sip of water. Pre-Surgery Instructions: Medication Instructions ? omeprazole (PriLOSEC) 40 mg capsule ? levothyroxine (SYNTHROID, LEVOTHROID) 50 mcg tablet ?? Use no make-up, nail lao, lotions, oils or powders on your skin. ?? Wear comfortable clothes that will not be tight in the area of your surgery. ?? Leave all valuables and jewelry (including all body piercing jewelry) at home. ?? If you use a CPAP machine, please bring it with you to wear after your surgery. ?? Please bring your a photo ID and insurance cards with you. ?? Check in at the Registration Desk. ?? If you are 17 years old or younger, a parent or guardian must come with you. After your Outpatient Surgery: ?? You must have a responsible adult to drive you home, you will not be allowed to drive or take a cab home. ?? We recommend you have someone stay with you for 24 hours after your surgery. What to bring if you are spending the night with us: ?? Bring toiletry items such as: robe, slippers, toothbrush, toothpaste, brush or comb. ?? Bring contact lens, hearing aids, glass cases and denture container if you use any of these items. ?? The hospital will provide you with a gown. Questions or concerns: ?? If you have any questions or concerns regarding your procedure, contact your surgeon as soon as possible. ?? If you have questions regarding your Pre-Admission Testing, please call us. We can be reached atthe number posted at the top of the page. ORT MANAGER documented in this encounter Plan of [...] Name Priority Date/Time Associated Diagnosis Comments XR SPINE THORACIC 1 VIEW IP Routine 06/22/2017 12:53 PM AIRPORT MANAGER FL FLUOROSCOPY < 1 HOUR IP Routine 06/22/2017 12:52 PM AIRPORT MANAGER INSERTION SPINAL CORD STIMULATOR 06/22/2017 11:48 AM AIRPORT MANAGER BACK PAIN documented in this encounter Results * XR Spine Thoracic 1 View (06/22/2017 12:53 PM AIRPORT MANAGER) Anatomical Region Laterality Modality Spine N/A Computed Radiogr aphy Impressions 06/22/2017 12:56 PM AIRPORT MANAGER Radiographic localization for placement of pain management electrodes Electronically signed by: Myles Ruiz M.D. Narrative 06/22/2017 12:56 PM AIRPORT MANAGER RESULT: EXAMINATION: XR SPINE THORACIC 1 VIEW HISTORY: Back pain FINDINGS: Radiographs obtained in surgery from from a C-arm for placement of pain management electrodes demonstrates 2 electrodes paralleling each other in the mid and lower thoracic spine for pain management. ??A previous vertebroplasty is present at L1. Procedure Note Myles Ruiz MD - 06/22/2017 RESULT: EXAMINATION: XR SPINE THORACIC 1 VIEW HISTORY: Back pain FINDINGS: Radiographs obtained in surgery from from a C-arm for placement of pain management electrodes demonstrates 2 electrodes paralleling each other in the mid and lower thoracic spine for pain management. A previous vertebroplasty is present at L1. IMPRESSION: Radiographic localization for placement of pain management electrodes Electronically signed by: Myles Ruiz M.D. Brice Eisenberg MD IMG XR PROCEDURES Fin al Result * FL Fluoroscopy < 1 Hour (06/22/2017 12:52 PM AIRPORT MANAGER) Narrative RAD_PACS_ - 07/25/2017 1:40 PM CDT The images from this study are not interpreted by Radiology. ??Please refer to the physician's procedure / OR operative note. Brice Eisenberg MD IMG FLUOROSCOPY PROCE DURES Final Result Performing Organization Address City/State/[facility] Co de Phone Number RAD_PACS_ documented in this encounter Visit Diagnoses Not on filedocumented in this encounter Administered Medications Inactive Administered Medications - up to 3 most recent administrations Medication Order MAR Action Action Date Dose Rate Site bacitracin injection As needed, Starting on Juany 06/22/17 at 1211, Intra-Op, Indications: Staphylococcal PneumoniaIndications:St aphylococcal Pneumonia Given 06/22/2017 12:11 PM AIRPORT MANAGER 50,000 Units bupivacaine (PF) (MARCAINE) 0.5 % in On-Q reservoir 270 mL 2 mL/hr, infiltration, Continuous, Starting on Juany 2/22/18 at 1215, Pre-Op, Do NOT squeeze the On-Q pump. Make sure tubing clamp is open. If the tubing appears kinked/crimped, massage area of tubing to facilitate flow. Make sure the dressing over the catheter site remains clean and dry. Do NOT remove remove dressing as this may dislodge the catheter. If wound drainage is present and/or dressing is not secure, reinforce and call MD. To ensure flow rate accuracy, do not tape over the in-line filter or expose to heat or cold therapy in close proximity to the flow controller. Notify provider for signs of intravascular local anesthetic toxicity: metallic taste in mouth, ringing in ears, mouth/lip numbness or tingling. To be started during procedure., Indications: Postoperative PainIndications:Postope rative Pain New Bag 06/22/2017 1:26 PM AIRPORT MANAGER 2 mL/hr Lactated Ringer's (LR) infusion - ADS Override Pull Starting on Juany 06/22/17 at 1013, For 1 dose, SHIKHA KAAPDIA: cabinet override Lactated Ringer's (LR) infusion 50 mL/hr, intravenous, Continuous, Starting on Juany 06/22/17 at 1100, Pre-Op New Bag 06/22/2017 10:25 AM AIRPORT MANAGER 1,000 mL 50 mL/hr lidocaine-EPINEPHrine (XYLOCAINE with EPI) 1 %-1:100,000 injection As needed, Starting on Juany 06/22/17 at 1230, Intra-Op, Indications: Administration of Local AnesthesiaIndications:A dministration of Local Anesthesia Given 06/22/2017 12:30 PM AIRPORT MANAGER 58 mL Back neomycin-polymyxin B (NEOSPORIN-) 40 mg-200,000 unit/mL irrigation As needed, Starting on Juany 06/22/17 at 1211, Intra-Op, Indications: Prevention of Bacterial Urinary Tract InfectionIndications:Pr evention of Bacterial Urinary Tract Infection Given 06/22/2017 12:11 PM AIRPORT MANAGER 1 mL Surgical Site polymyxin B injection As needed, Starting on Juany 06/22/17 at 1211, Intra-Op Given 06/22/2017 12:11 PM AIRPORT MANAGER 500,000 Units sodium chloride (NS) 0.9 % irrigation As needed, Starting on Juany 06/22/17 at 1211, Intra-Op Given 06/22/2017 12:11 PM AIRPORT MANAGER 1,000 mL Given 06/22/2017 12:10 PM AIRPORT MANAGER 1,000 mL vancomycin (VANCOCIN) solution As needed, Starting on Juany 06/22/17 at 1231, Intra-Op Given 06/22/2017 12:31 PM AIRPORT MANAGER 1,000 mg Ba ck documented in this encounter Discontinued Medications Medication Sig Discontinue Reason Start Date End Da te DULoxetine DR (CYMBALTA) 60 mg capsule Take 60 mg by mouth daily. 03/31/2017 06/21/2017 documented as of this encounter Historical Medications * This list may reflect changes made after this encounter. omeprazole (PriLOSEC) 40 mg capsule Take 1 capsule (40 mg total) by mouth daily Two tablets daily eszopiclone (LUNESTA) tabletIndication s:Insomnia Take 1 tablet (3 mg total) by mouth nightly 1 04/25/2017 naproxen (NAPROSYN,ALEVE) 220 mg tablet Take 220 mg by mouth every 12 (twelve) hours as needed for pain. 06/22/2022 b complex vitamins capsuleIndicatio ns:3000 Take 3 capsules by mouth daily. 06/22/2022 calcium carbonate-vitami n D3 600 mg (1,500 mg)-800 unit tablet,chewable Take 2 tablets by mouth daily. 06/22/2022 added in this encounter Active and Recently Administered Medications Times are shown in AIRPORT MANAGER. Scheduled Medication Order 06/20/2017 06/21/2017 06/22/2017 ceFAZolin (ANCEF) IV syringe (100 mg/mL in SW) 1,000 mg (COMPLETED) 1,000 mg, intravenous, Administer over 5 Minutes, Once, On Juany 06/22/17 at 1145, For 1 dose, Indications: Prophylaxis, Surgical 1200 (Given - Provid er: Mandy Mayer CRNA) Continuous Medication Order 06/20/2017 06/21/2017 06/22/2017 bupivacaine (PF) (MARCAINE) 0.5 % in On-Q reservoir 270 mL 2 mL/hr, infiltration, Continuous, Starting on Juany 06/22/17 at 1215, Pre-Op, Do NOT squeeze the On-Q pump. Make sure tubing clamp is open. If the tubing appears kinked/crimped, massage area of tubing to facilitate flow. Make sure the dressing over the catheter site remains clean and dry. Do NOT remove remove dressing as this may dislodge the catheter. If wound drainage is present and/or dressing is not secure, reinforce and call MD. To ensure flow rate accuracy, do not tape over the in-line filter or expose to heat or cold therapy in close proximity to the flow controller. Notify provider for signs of intravascular local anesthetic toxicity: metallic taste in mouth, ringing in ears, mouth/lip numbness or tingling. To be started during procedure., Indications: Postoperative Pain 1215 (Due)1326 (New Bag - Provider: Brice Eisenberg MD - Comment: verifed with brenda malik,LOGAN) Lactated Ringer's (LR) infusion 50 mL/hr, intravenous, Continuous, Starting on Juany 06/22/17 at 1100, Pre-Op 1025 (New Bag - Prov ider: Shikha Kapadia RN)1312 (Anesthesia Volume Adjustment - Provider: Mandy Mayer CRNA) PRN Medication Order 06/20/2017 06/21/2017 06/22/2017 bacitracin injection (CANCELED) As needed, Starting on Juany 06/22/17 at 1211, Intra-Op, Indications: Staphylococcal Pneumonia 121 (Given - Provid er: Brice Eisenberg MD - Comment: added to 1L of Normal saline) lidocaine-EPINEPHrine (XYLOCAINE with EPI) 1 %-1:100,000 injection (CANCELED) As needed, Starting on Juany 06/22/17 at 1230, Intra-Op, Indications: Administration of Local Anesthesia 1230 (Given - Provid er: Brice Eisenberg MD) neomycin-polymyxin B (NEOSPORIN-) 40 mg-200,000 unit/mL irrigation (CANCELED) As needed, Starting on Juany 06/22/17 at 1211, Intra-Op, Indications: Prevention of Bacterial Urinary Tract Infection 1211 (Given - Provid er: Brice Eisenberg MD - Comment: added to 1L of Normal saline) polymyxin B injection (CANCELED) As needed, Starting on Juany 06/22/17 at 1211, Intra-Op 1211 (Given - Provid er: Brice Eisenberg MD - Comment: added to 1L of Normal saline) sodium chloride (NS) 0.9 % irrigation (CANCELED) As needed, Starting on Juany 06/22/17 at 1211, Intra-Op 1210 (Given - Provid er: Brice Eisenberg MD - Comment: antibotic irrigation)1211 (Given - Provider: Brice Eisenberg MD) vancomycin (VANCOCIN) solution (CANCELED) As needed, Starting on Juany 06/22/17 at 1231, Intra-Op 1231 (Given - Provid er: Brice Eisenberg MD) documented in this encounter Orders Medications Ordered That Noel ht Not Have Been Administered Count Last Ordered Date First Ordered Date ceFAZolin (ANCEF) IV syringe (100 mg/mL in SW) - ADS Override Pull 1 06/22/2017 ceFAZolin (ANCEF) IV syringe (100 mg/mL in SW) 1,000 mg 1 06/22/2017 scopolamine 1 mg over 3 days patch 72 hour - ADS Override Pull 1 06/22/2017 Diet Count Last Ordered Date First Orde red Date ADULT DISCHARGE DIET 1 06/22/2017 Nursing Count Last Ordered Date First Orde red Date DISCHARGE ACTIVITY 1 06/22/2017 DISCHARGE CALL PROVIDER 6 06/22/2017 DISCHARGE DRESSING 1 06/22/2017 Discharge Count Last Ordered Date First Orde red Date DISCHARGE PATIENT 1 06/22/2017 documented in this encounter Care Teams Test Grader Relationship Specialty Start Date End Date Gadiel Zavala MD [address] [address] PCP - General 06/13/16 Lyudmila Knox, RN Registered Nurse 04/14/17 Jennifer Escalona, RN Registered Nurse 05/10/17 documented as of this encounter
--- OUTSIDE RECORDS SUMMARY | 2024-04-17 11:50 | XMS_ITS | Encounter Summary ---
Author Organization [facility] Healthcare Address [address] [place] [address] Care Team Providers Care Service Developer Name Role Phone Gadiel Zavala MD Primary Care Provider [phone] Lyudmila Knox RN Unavailable Unavailable Jennifer Escalona RN Unavailable Agustina vailable Encounter Details Date Type Department Care Team (Late st Contact Info) Description 08/27/2018 Telephone [facility] [address] [place] [address] [place] [address] [facility] [address] [place] [address] Social History Tobacco Use Types Packs/Day Years Used Date Smoking Tobacco: Former Cigarettes Q uit: 04/14/1987 Smokeless Tobacco: Never Alcohol Use Standard Drinks/Week Comments Yes 0 (1 standard drink = 0.6 oz pur e alcohol) social Comments No Sex and Gender Information Value Date Recorded Sex Assigned at Not on file Legal Sex Female 3:22 AM KINDERGARTEN ASSISTANT Gender Identity Not on file Sexual Orientation Not on file documented as of this encounter Miscellaneous Notes * Telephone Encounter - Janine Vail RN - 08/27/2018 2:22 PM CDT Script printed and placed in lock box * Telephone Encounter - Aviva Duran - 08/27/2018 2:11 PM CDT ERIKA WITH [facility] CALLED AND STATED SINCE IT HAS BEEN SO LONG SINCE PT HAS HAD PERCOCET THEY CAN ONLY FILL 7 DAY SUPPLY. documented in this encounter Plan of Treatment [...] on filedocumented in this encounter Care Teams Service Developer Relationship Specialty Start Date End Date Gadiel Zavala MD [address] [address] PCP - General 06/13/16 Lyudmila Knox, RN Registered Nurse 04/14/17 Jennifer Escalona, LOGAN Registered Nurse 05/10/17 documented as of this encounter
--- OUTSIDE RECORDS SUMMARY | 2024-04-17 11:50 | XMS_ITS | Encounter Summary ---
Author Organization [facility] Healthcare Address [address] [place] [address] Care Team Providers Care Cream Beater Name Role Phone Gadiel Zavala MD Primary Care Provider [phone] Lyudmila Knox RN Unavailable Unavailable Jennifer Escalona RN Unavailable Agustina vailable Encounter Details Date Type Department Care Team (Latest Contact Info) Description 06/22/2017 10:18 AM CUSTOMER TECHNICAL SERVICES MANAGER - 06/22/2017 11:59 PM CUSTOMER TECHNICAL SERVICES MANAGER Hospital Encounter [facility] [address] [place] [address] Discharge Disposition: Discharge to home or self [...] on file Legal Sex Female 3:22 AM CUSTOMER TECHNICAL SERVICES MANAGER Gender Identity Not on file Sexual [...] Procedure Name Priority Date/Time Associated Diagnosis Comments FL FLUOROSCOPY < 1 HOUR IP Routine 06/22/2017 12:52 PM CUSTOMER TECHNICAL SERVICES MANAGER documented in this encounter Results * FL Fluoroscopy < 1 Hour (06/22/2017 12:52 PM CUSTOMER TECHNICAL SERVICES MANAGER) Narrative RAD_PACS_CH - 07/25/2017 1:40 PM CDT The images from this study are not interpreted by Radiology. ??Please refer to the physician's procedure / OR operative note. Brice Eisenberg MD IMG FLUOROSCOPY [facility] Final Result Performing Organization Address City/State/[facility] Co de Phone Number RAD_PACS_[facility] documented in this encounter Visit Diagnoses Not on filedocumented in this encounter Care Teams Cream Beater Relationship Specialty Start Date End Date Gadiel Zavala MD [address] [employer] [address] PCP - General 06/13/16 Lyudmila Knox, RN Registered Nurse 04/14/17 Jennifer Escalona, LOGAN Registered Nurse 05/10/17 documented as of this encounter
--- OUTSIDE RECORDS SUMMARY | 2024-04-17 11:50 | XMS_ITS | Encounter Summary ---
Author Organization [facility] Healthcare Address [address] [place] [address] Care Team Providers Care Scada Technician Name Role Phone Gadiel Zavala MD Primary Care Provider [phone] [phone] Lyudmila Knox RN Unavailable Unavailable Jennifer Escalona RN Unavailable Agustina vailable Encounter Details Date Type Department Care Team (Late st Contact Info) Description 08/27/2018 Orders Only [facility] Center [address] [place] [address] [place] [address] [facility] [address] [place] [address] Social History Tobacco Use Types Packs/Day Years Used Date Smoking Tobacco: Former Cigarettes Q uit: 04/14/1987 Smokeless Tobacco: Never Alcohol Use Standard Drinks/Week Comments Yes 0 (1 standard drink = 0.6 oz pur e alcohol) social Comments No Sex and Gender Information Value Date Recorded Sex Assigned at Not on file Legal Sex Female 3:22 AM BELL CAPTAIN Gender Identity Not on file Sexual Orientation Not on file documented as of this encounter Ordered Prescriptions Prescription Sig Dispense Quantity Refills Last Filled Start Date End Date oxyCODONE-acetamin ophen (PERCOCET) 10-325 mg per tabletIndications: Pain Take 1 tablet by mouth every 12 (twelve) hours as needed for pain 46 tablet 08/27/2018 06/22/2022 documented in this encounter Plan of Treatment [...] on filedocumented in this encounter Care Teams Scada Technician Relationship Specialty Start Date End Date Gadiel Zavala MD [address] [address] PCP - General 06/13/16 Lyudmila Knox, RN Registered Nurse 04/14/17 Jennifer Escalona, RN Registered Nurse 05/10/17 documented as of this encounter
--- OUTSIDE RECORDS SUMMARY | 2024-04-17 11:50 | XMS_ITS | Encounter Summary ---
Author Organization [facility] Healthcare Address [address] [place] [address] Care Team Providers Care Solid Propellant Processor Name Role Phone Gadiel Zavala MD Primary Care Provider [phone] [phone] Lyudmila Knox RN Unavailable Unavailable Encounter Details Date Type Department Care Team (Late st Contact Info) Description 05/03/2017 7:30 AM SOIL SAMPLER - 05/03/2017 8:30 AM [facility] Surgery [facility] [address] [place] [address] [place] [address] [facility] [address] [place] [address] Neurostimulator Implant Electrode 1 Per Lead 28242 Surgery Details Date/Time Status Location OR Service Patient Class Case Class Case Type Trauma Case? 05/03/2017 7:30 AM Posted Pain Management Procedure Center RM 1 Pain Management Outpatient Elective Panel 1 Procedure LRB Anes Op Region Wound Class Comments Neurostimulator Implant Electrode 1 Per Lead [address]1825 N/A Conscious Sedation Surgeon Surgeon Role Service Panel Brice Eisenberg MD Primary Pain Managem ent 1 documented in this encounter Social History Tobacco Use Types Packs/Day Years Used Date Smoking Tobacco: Former Cigarettes Q uit: 04/14/1987 Smokeless Tobacco: Never Comments Unknown Sex and Gender Information Value Date Recorded Sex Assigned at Not on file Legal Sex Female 3:22 AM SOIL SAMPLER Gender Identity Not on file Sexual Orientation Not on file documented as of this encounter Last Filed Vital Signs Vital Sign Reading Time Taken Comments Blood Pressure 148/92 05/03/2017 8:22 AM SOIL SAMPLER Pulse 87 05/03/2017 8:22 AM SOIL SAMPLER Temperature 36.5 ??C (97.7 ??F) 05/03/2017 7:05 AM CS T Respiratory Rate 18 05/03/2017 8:22 AM SOIL SAMPLER Oxygen Saturation 100% 05/03/2017 8:22 AM SOIL SAMPLER Inhaled Oxygen Concentration - - Weight 57.2 kg (126 lb) 05/03/2017 7:05 AM SOIL SAMPLER Height 160 cm (5' 3 ) 05/03/2017 7:05 AM SOIL SAMPLER Body Mass Index 22.32 05/03/2017 7:05 AM SOIL SAMPLER documented in this encounter Discharge Instructions * Discharge Instructions* Whitney Gaona RN - 05/03/2017 8:34 AM SOIL SAMPLER Post-Procedure Instructions for Spinal Cord Stimulator Trial No bending, twisting or lifting while leads are in place. Sponge bath only while leads are in place. No shower or tub bath. Do not restart blood thinners while leads are in place. You may take your other medications. You may not drive, drink alcohol, or operate heavy machinery for at least 24 hours after your procedure. Call the pain management center if you experience visual changes, loss of control of your bowels orbladder, or have signs of infection ( temperature of 100.4 or greater, or abnormal drainage at the injection site). Call the pain management center immediately with any of these symptoms at [phone]. After hourscontact the [facility] Lifter/Driver at [phone] and she will reach your physician for you. Do not try and pull off tape, just reinforce if it start to peel up. In case of an emergency call 911 SAMPLER documented in this encounter Medications at Time of Discharge acetaminophen (TYLENOL) 325 mg tablet Take 2 tablets (650 mg total) by mouth every 4 (four) hours as needed 03/01/2017 atorvastatin (LIPITOR) 20 mg tablet Take 1 tablet (20 mg total) by mouth daily 03/31/2017 eszopiclone (LUNESTA) tabletIndications :Insomnia Take 1 tablet (3 mg total) by mouth nightly 1 04/25/2017 levothyroxine (SYNTHROID, LEVOTHROID) 50 mcg tablet Take 1 tablet (50 mcg total) by mouth daily 03/31/2017 amLODIPine (NORVASC) 10 mg tablet Take 1 tablet (10 mg total) by mouth daily 03/03/2017 10/07/2022 celecoxib (CeleBREX) 200 mg capsule Take 200 mg by mouth daily. 04/04/2017 06/22/[address] (CYMBALTA) 60 mg capsule Take 60 mg by mouth daily. 03/31/2017 06/21/2017 FLUoxetine (PROzac) 20 mg capsule Take 40 mg by mouth daily. 03/31/2017 06/22/2022 lisinopril (PRINIVIL,ZESTRIL ) 40 mg tablet Take 20 mg by mouth daily. 02/21/2017 11/17/2021 documented as of this encounter Discharge Disposition Disposition Code Departure Means Destination Discharge to home or self care documented in this encounter H&P Notes * Brice Eisenberg MD - 05/03/2017 7:34 AM CST I have reviewed the H&P, examined the patient, and endorse the findings as written. Plan of Care : Based on the above findings, I consider Kaitlin Bond. to be an acceptable risk for : .Procedure(s): Neurostimulator Implant Electrode 1 Per Lead [address]40. Brice Eisenberg MD. Date: 05/03/2017 Time: 7:34 AM SAMPLER Source Note - Brice Eisenberg MD - 04/14/2017 10:45 AM SOIL SAMPLER Patient Name: Kaitlin Bond : 1950 Today's Date: 04/14/2017 PCP: Gadiel Zavala MD Referring: No ref. provider found Chief Complaint Patient presents with ??? Follow-up wants to get SCS trial done ??? Back Pain right low back into the right hip/buttocks HPI Kaitlin Bond is a 66 y.o. year old female here for a return visit. She presents with returned lower back pain. Since the last visit she has undergone surgery and saw almost complete relief, however she has started to have break- through pain that has progressively worsened. The pain is exacerbated with movement, per pt. At this time, the pt is contemplating SCS trial. Patient denies any motorweakness or bowel/bladder issues. Allergies Allergen Reactions ??? Dye Hives Was getting MRI and developed hives while dye infusion. ??? Adhesive Tape-Silicones Rash Reaction: RASH No past medical history on file. Past Surgical History: Procedure Laterality Date ??? ANTERIOR FUSION CERVICAL SPINE Social History Social History ??? Marital status: Spouse name: N/A ??? Number of children: N/A ??? Years of education: N/A Occupational History ??? Not on file. Social History Main Topics ??? Smoking status: Former Smoker Quit date: 04/14/1987 ??? Smokeless tobacco: Never Used ??? Alcohol use Not on file ??? Drug use: Unknown ??? Sexual activity: Not on file Other Topics Concern ??? Not on file Social History Narrative ??? No narrative on file No family history on file. HOME MEDICATIONS : amLODIPine (NORVASC) 10 mg tablet atorvastatin (LIPITOR) 20 mg tablet celecoxib (CeleBREX) [address] (CYMBALTA) 60 mg capsule levothyroxine (SYNTHROID, LEVOTHROID) 50 mcg tablet lisinopril (PRINIVIL,ZESTRIL) 40 mg tablet FLUoxetine (PROzac) 20 mg capsule Review of Systems Review of Systems Constitutional: [...] reviewed and are negative. Physical Exam Vitals: 04/14/17 1110 BP: 152/100 BP Location: Left arm Patient Position: Sitting Pulse: 80 Resp: 16 Temp: 97.9 ??F (36.6 ??C) TempSrc: Oral SpO2: 100% There is no height or [...] exhibits decreased range of motion and tenderness. Neurological: She is alert and oriented to person, place, and time. She has normal strength and normal reflexes. No cranial nerve deficit or sensory deficit. Skin: Skin is warm, dry and intact. Psychiatric: She has a normal mood and affect. Her speech is normal and behavior is normal. Nursing note and vitals reviewed. Review of Data: SOAPP-R and PHQ-9 questionnaires were reviewed and Most recent urine toxicology screen was reviewed, along with local prescription drug monitoring program. Assessment Problem List Nervous Cervicalgia - Primary Cervical radiculopathy Chronic midline low back pain with bilateral sciatica Radiculopathy, lumbosacral region Musculoskeletal Spondylosis of cervical joint without myelopathy Lumbosacral spondylosis without myelopathy Other Cervical spinal stenosis Spinal stenosis of lumbar region without neurogenic claudication Postlaminectomy syndrome, lumbar Plan Kaitlin returns today following recent cervical surgery with excellent relief of her neck pain. Unfortunately she still continuing to have low back pain issues. She has now tried and failed rest, physical therapy, activity modification, medications, injection therapy, and is not a candidate for add itional surgery. As such she would like to proceed with spinal cord stimulator trial which will trying get her scheduled for within the next month or so. No Follow-up on file. Brice Eisenberg MD I, Omar Eisenberg, have personally performed the services described in the documentation , reviewed the documentation as recorded by the scribe in my presence, and it accurately and completely records my words and actions though there are potential variances in recording and video editing intern. SAMPLER documented in this encounter Miscellaneous Notes * Op Note - Brice Eisenberg MD - 05/03/2017 7:30 AM CST PROCEDURE: Percutaneous Implantation of 60 cm lead/array x2. PREOPERATIVE DIAGNOSES: Patient Active Problem List Diagnosis [...] ??? 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 SURGEON: Omar Eisenberg COMPLICATIONS: None DESCRIPTION OF PROCEDURE: I reviewed the most recent history and physical, and there were no changes noted. After review of risks/benefits, written informed consent was obtained. Risks discussed included but were not limited to: headache, CSF leak, bleeding, infection, lack of pain control, lead migration, painful lead or generator site, possible requirement for revision of pocket or leads. The patient was allowed to place themself in the prone position on the operating room table. The patient received IV antibiotics preoperatively. All pressure points were checked and padded and standard anesthesia monitors were applied. The thoracolumbar region was prepped and draped in the usual fashion. Fluoroscopy was used to identify the L1-2 interlaminar space. Approximately 1.5 vertebral body levels below this and paramedian to the left at the midline of the pedicles, the skin and subcutaneous tissues were anesthetized with local (note all local used is 1% lidocaine with 1:200,000 epinerphrine). Next, a #22g, 3.5?? spinal needle was advanced under fluoroscopic guidance until it contact the [id number]. After negative aspiration, 1ml of local anesthetic [...] technique and fluoroscopic guidance. A 60 cm Octad lead was advanced under fluoroscopic guidance and lateralized to the left of midline. This procedure was repeated approximately 0.5 cm inferior to the above level for the second lead, such that the inferiorly placed lead lie to the right of the superiorly placed lead. Please see xray imaging for final lead tip placement. At this point, theleads were tested with the assistance of the spinal cord stimulator graphic art sales representative, and the patient endorsed coverage of all areas of pain. At this point, the needle and stylette were removed from both leads. Additional 1% lidocaine was injected for skin anesthesia at the site of anticipated suture placement. 2-0 nylon sutures were placed at each lead site to secure them to the skin. Antibiotic ointment was applied over each percutaneous entry site; sterile 4x4 were used to cover the area with tegaderm as a final dressing. The patient tolerated the procedure well and there were no apparent complications. The patient was monitored in the recovery area and post-operative instructions were reviewed. SAMPLER documented in this encounter Plan of Treatment Not on file documented as of this encounter Goals Goal Patient Goal Type Associated Problems Recent Progress Patient-Stated? Author Increase physical activity Exercise Lyumdila Shah, RN Note: She is doing arm and leg exercises from Pt. She was in rehab after neck surgery for 2 weeks in March 2017 documented as of this encounter Procedures Procedure Name Priority Date/Time Associated Diagnosis Comments XR SPINE THORACIC 1 VIEW IP Routine 05/03/2017 8:09 AM SOIL SAMPLER FL FLUOROSCOPY < 1 HOUR IP Routine 05/03/19 18 8:09 AM SOIL SAMPLER NEUROSTIMULATOR IMPLANT ELECTRODE 1 PER LEAD [address] 05/03/2017 7:35 AM SOIL SAMPLER LOW BACK PAIN documented in this encounter Results * XR Spine Thoracic 1 View (05/03/2017 8:09 AM SOIL SAMPLER) Narrative RAD_PACS_[facility] - 05/19/2017 1:34 PM SOIL SAMPLER The images from this study are not interpreted by Radiology. ??Please refer to the physician's procedure / OR operative note. Brice Eisenberg MD IMG XR PROCEDURES Fin al Result Performing Organization Address [facility] Co de Phone Number RAD_PACS_[facility] * FL Fluoroscopy < 1 Hour (05/03/2017 8:09 AM SOIL SAMPLER) Narrative [facility] - 07/25/2017 1:40 PM CDT The images from this study are not interpreted by Radiology. ??Please refer to the physician's procedure / OR operative note. Brice Eisenberg MD IMG FLUOROSCOPY PROCE DURES Final Result Performing Organization Address [facility] [address] [facility] de Phone Number RAD_P[facility] documented in this encounter Visit Diagnoses Not on filedocumented in this encounter Administered Medications Inactive Administered Medications - up to 3 most recent administrations Medication Order MAR Action Action Date Dose Rate Site ceFAZolin in 0.9% sod chloride 1 gram/10 mL syringe As needed, Starting on Mon05/03/17 at 0741, Intra-Op Given 05/03/2017 7:40 AM SOIL SAMPLER 1,000 mg fentaNYL (SUBLIMAZE) preservative free syringe As needed, Starting on Mon05/03/17 at 0743, Intra-Op Given 05/03/2017 7:44 AM SOIL SAMPLER 50 mcg lidocaine-EPINEPHrine (XYLOCAINE with EPI) 2 %-1:200,000 preservative free injection As needed, Starting on Mon05/03/17 at 0744, Intra-Op, Indications: Administration of Local AnesthesiaIndications:Administra tion of Local Anesthesia Given 05/03/2017 7:44 AM SOIL SAMPLER 20 mL midazolam (VERSED) preservative free injection As needed, Starting on Mon05/03/17 at 0743, Intra-Op Given 05/03/2017 7:42 AM SOIL SAMPLER 1 mg documented in this encounter Active and Recently Administered Medications Times are shown in SOIL SAMPLER. PRN Medication Order 05/01/2017 05/02/2017 05/03/2017 ceFAZolin in 0.9% sod chloride 1 gram/10 mL syringe (CANCELED) As needed, Starting on Mon05/03/17 at 0741, Intra-Op 0740 (Given - Provid er: Whitney Gaona RN) fentaNYL (SUBLIMAZE) preservative free syringe (CANCELED) As needed, Starting on Mon05/03/17 at 0743, Intra-Op 0744 (Given - Provid er: Whitney Gaona RN) lidocaine-EPINEPHrine (XYLOCAINE with EPI) 2 %-1:200,000 preservative free injection (CANCELED) As needed, Starting on Mon05/03/17 at 0744, Intra-Op, Indications: Administration of Local Anesthesia 0744 (Given - Provid er: Brice Eisenberg MD) midazolam (VERSED) preservative free injection (CANCELED) As needed, Starting on Mon05/03/17 at 0743, Intra-Op 0742 (Given - Provid er: Whitney Gaona RN) documented in this encounter Care Teams Solid Propellant Processor Relationship Specialty Start Date End Date Gadiel Zavala MD [address] [address] PCP - General 06/13/16 Lyudmila Knox, RN Registered Nurse 04/14/17 documented as of this encounter
--- OUTSIDE RECORDS SUMMARY | 2024-04-17 11:50 | XMS_ITS | Encounter Summary ---
Author Organization [facility] Address [address] [place] [address] Care Team Providers Care Autocad Operator Name Role Phone Gadiel Zavala MD Primary Care Provider [phone] [phone] Lyudmila Knox RN Unavailable Unavailable Jennifer Escalona RN Unavailable Agustina vailable Encounter Details Date Type Department Care Team (Late st Contact Info) Description 01/27/[address] [facility] Cardiology [address] [place] [id number] Mylene Lanier, FANNIE [address] [place] [address] Social History Tobacco Use Types Packs/Day Years Used Date Smoking Tobacco: Former Cigarettes Q uit: 04/14/1987 Smokeless Tobacco: Never Alcohol Use Standard Drinks/Week Comments Yes 0 (1 standard drink = 0.6 oz pur e alcohol) social Comments No Sex and Gender Information Value Date Recorded Sex Assigned at Not on file Legal Sex Female 3:22 AM TRUCK MANAGER Gender Identity Not on file Sexual Orientation Not on file documented as of this encounter Miscellaneous Notes * Telephone Encounter - Lyudmila Mcduffie RN - 01/27/2022 9:46 AM CDT Faxed recent echo and will address cardiac clearance after it is received. * Telephone Encounter - Lillie Jamison - 01/27/2022 9:01 AM CDT [place] DENTAL APPLIANCE FIXER called from [facility] [place] states pt is scheduled for a procedure on Thursday 02/01. Requesting clearance, advised to fax a cardiac clearance request to our office. Also requesting echo report that was done at in September be faxed to their office. Thank you. Contact: documented in this encounter Plan of Treatment [...] on filedocumented in this encounter Care Teams Autocad Operator Relationship Specialty Start Date End Date Gadiel Zavala MD [address] [id number] PCP - General 06/13/16 Lyudmila Knox, RN Registered Nurse 04/14/17 Jennifer Escalona, RN Registered Nurse 05/10/17 documented as of this encounter
--- OUTSIDE RECORDS SUMMARY | 2024-04-17 11:50 | XMS_ITS | Encounter Summary ---
Author Organization [facility] Healthcare Address [address] [place] [address] Care Team Providers Care Manager Hospital Name Role Phone Gadiel Zavala MD Primary Care Provider [phone] [phone] Lyudmila Knox RN Unavailable Unavailable Jennifer Escalona RN Unavailable Agustina vailable Encounter Details Date Type Department Care Team (Latest Contact Info) Description 06/22/2017 10:18 AM NET DEVELOPER - 06/22/2017 11:59 PM NET DEVELOPER Hospital Encounter [facility] Diagnostic Imaging [address] [place] [address] Discharge Disposition: Discharge to home or self [...] on file Legal Sex Female 3:22 AM NET DEVELOPER Gender Identity Not on file Sexual [...] 1 VIEW IP Routine 06/22/2017 12:53 PM NET DEVELOPER documented in this encounter Results * XR Spine Thoracic 1 View (06/22/2017 12:53 PM NET DEVELOPER) Anatomical Region Laterality Modality Spine N/A Computed Radiogr aphy Impressions 06/22/2017 12:56 PM NET DEVELOPER Radiographic localization for placement of pain management electrodes Electronically signed by: Myles Ruiz M.D. Narrative 06/22/2017 12:56 PM NET DEVELOPER RESULT: EXAMINATION: XR SPINE THORACIC 1 VIEW HISTORY: Back pain FINDINGS: Radiographs obtained in surgery from from a C-arm for placement of pain management electrodes demonstrates 2 electrodes paralleling each other in the mid and lower thoracic spine for pain management. ??A previous vertebroplasty is present at L1. Procedure Note Mylse Ruiz MD - 06/22/2017 RESULT: EXAMINATION: XR [...] MD IMG XR PROCEDURES Fin al Result documented in this encounter Visit Diagnoses Not on filedocumented in this encounter Care Teams Manager Hospital Relationship Specialty Start Date End Date Gadiel Zavala MD [address] [address] PCP - General 06/13/16 Lyudmila Knox, RN Registered Nurse 04/14/17 Jennifer Escalona, RN Registered Nurse 05/10/17 documented as of this encounter
--- OUTSIDE RECORDS SUMMARY | 2024-04-17 11:50 | XMS_ITS | Encounter Summary ---
Author Organization [facility] Healthcare Address [address] [place] [address] Care Team Providers Care Learning Designer Name Role Phone Gadiel Zavala MD Primary Care Provider [phone] [phone] Lyudmila Knox RN Unavailable Unavailable Jennifer Escalona RN Unavailable Agustina vailable Reason for Visit * Reason Comments Follow-up Back Pain Extremity Pain Knee Pain Encounter Details Date Type Department Care Team (Late st Contact Info) Description 08/27/2018 12:26 PM CDT - 08/27/2018 11:59 PM CDT Hospital Encounter [facility] [address] [id number] [place] [address] [facility] [address] [id number] Cervical spinal stenosis; Chronic midline low back pain with bilateral sciatica; Radiculopathy, lumbosacral region Discharge Disposition: Discharge to home or self [...] on file 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 Gender Identity Not on file Sexual Orientation Not on file documented as of this encounter Last Filed Vital Signs Vital Sign Reading Time Taken Comments Blood Pressure 154/103 08/27/2018 12:51 PM CDT Pulse 86 08/27/2018 12:51 PM CDT Temperature - - Respiratory Rate 17 08/27/2018 12:51 PM CDT Oxygen Saturation 99% 08/27/2018 12:51 PM CDT Inhaled Oxygen Concentration - - [...] by mouth daily 03/31/2017 metoprolol XL (TOPROL-XL) 25 mg extended release tablet 07/26/2017 omeprazole (PriLOSEC) 40 mg capsule Take 1 capsule (40 mg total) by mouth daily Two tablets daily amLODIPine (NORVASC) 10 mg tablet Take 1 tablet (10 mg total) by mouth daily 03/03/2017 3 b complex vitamins capsuleIndications :3000 Take 3 capsules by mouth daily. 3 buprenorphine HCl (BELBUCA) 150 mcg film Apply 150 mcg to cheek 2 (two) times a day 60 each 08/27/2018 3 calcium carbonate-vitamin D3 600 mg (1,500 mg)-800 unit tablet,chewable Take 2 tablets by mouth daily. 3 celecoxib (CeleBREX) 200 mg capsule Take 200 mg by mouth daily. 04/04/2017 3 chlorhexidine (HIBICLENS) 4 % external liquidIndications: Skin Disinfection Shower with daily for 5 days prior to surgery, especially morning of surgery 236 mL 05/10/2017 3 diazePAM (VALIUM) 10 mg tabletIndications: anxiety Take 1 tablet (10 mg total) by mouth once for 1 dose Take one tablet one hour prior to EMG/NCS 1 tablet 08/27/2018 3 FLUoxetine (PROzac) 20 mg capsule Take [...] Fill Date: 05/10/17. 60 tablet 05/10/2017 3 oxyCODONE-acetamin ophen (PERCOCET) 10-325 mg per tabletIndications: Pain Take 1 tablet by mouth every 12 (twelve) hours as needed for pain Max 5 tablets/day 60 tablet 08/27/2018 3 oxyCODONE-acetamin ophen (PERCOCET) 10-325 mg per tabletIndications: Pain Take 1 tablet by mouth every 12 (twelve) hours as needed for pain 46 tablet 08/27/2018 3 documented as of this encounter Ordered Prescriptions Prescription Sig Dispense Quantity Refills Last Filled Start Date End Date buprenorphine HCl (BELBUCA) 150 mcg film Apply 150 mcg to cheek 2 (two) times a day 60 each 08/27/2018 06/22/2022 diazePAM (VALIUM) 10 mg tabletIndications: anxiety Take 1 tablet (10 mg total) by mouth once for 1 dose Take one tablet one hour prior to EMG/NCS 1 tablet 08/27/2018 06/22/2022 oxyCODONE-acetamin ophen (PERCOCET) 10-325 mg per tabletIndications: Pain Take 1 tablet by mouth every 12 (twelve) hours as needed for pain Max 5 tablets/day 60 tablet 08/27/2018 06/22/2022 documented in this encounter Discharge Disposition Disposition Code Departure Means Destination Discharge to home or self care documented in this encounter Progress Notes * Janine Vail RN - 08/27/2018 12:53 PM CDT soappr 35 * Brice Eisenberg MD - 08/27/2018 12:41 PM CDT Images from the original note were not included. Patient Name: Kaitlin Bond : 1950 Today's Date: 08/27/2018 PCP: Gadiel Zavala MD Referring: No ref. provider found Chief Complaint Patient presents with ??? Follow-up ??? Back Pain ??? Extremity Pain ??? Knee Pain HPI Kaitlin Bond is a 68 y.o. female here for a return visit. She presents with low back pain, noting a radicular component to bilateral lower extremities. The pain is constant and described as aching/soreness. It rates 8/10 on the numeric pain scale. Provocative factors include standing and ambulating. Since her last visit, Kaitlin has had ongoing severe pain. She did have spinal cord stimulator explanted and had an MRI. Kaitlin has continued to have frequent falls and difficulty ambulatingdue to pain as well as weakness. She has developed right knee pain with these frequent falls. Kaitlin is planning to see a neurologist within the next several weeks. She has been taking Percocet as needed with some relief, although this does cause some drowsiness. Allergies Allergen Reactions ??? Dye Hives Was [...] HYSTERECTOMY ??? SPINE SURGERY lumbar Social History Socioeconomic History ??? Marital status: Spouse name: Not on file ??? Number of children: Not on file ??? Years of education: Not on file ??? Highest education level: Not on file Tobacco Use ??? Smoking status: Former Smoker Last attempt to quit: 04/14/1987 Years since quittin.3 ??? Smokeless tobacco: Never Used Substance and Sexual Activity ??? Alcohol use: Yes Comment: social ??? Drug use: No ??? Sexual activity: Defer Family History Problem Relation Age of Onset [...] capsule oxyCODONE-acetaminophen (PERCOCET) 10-325 mg per tablet oxyCODONE-acetaminophen (PERCOCET) 10-325 mg per tablet Review [...] frequency and urgency. Musculoskeletal: Positive for back pain and neck pain. Skin: Negative. Negative for color change and rash. Allergic/Immunologic: Negative. Negative for environmental allergies and immunocompromised state. Neurological: Positive for weakness. Negative for dizziness and seizures. Hematological: Negative. Negative for adenopathy. Does not bruise/bleed easily. Psychiatric/Behavioral: Negative. Negative for confusion, decreased concentration and hallucinations. All other systems reviewed and are negative. Physical Exam Vitals: 08/27/18 1251 BP: (!) 154/103 Pulse: 86 Resp: 17 SpO2: 99% Estimated body mass index is 21.79 kg/m?? as calculated from the following: Height as of 06/22/17: 160 cm (5' 3 ). Weight as of 06/22/17: 55.8 kg (123 lb). Physical Exam Constitutional: She is oriented to person, place, and time. She appears well- developed and well-nourished. HENT: Head: Normocephalic and atraumatic. Eyes: Pupils are equal, round, and reactive to light. Conjunctivae and EOM are normal. Neck: Neck supple. No tracheal deviation present. Cardiovascular: Normal rate. Pulmonary/Chest: Effort normal. Abdominal: Soft. Musculoskeletal: Lumbar back: She exhibits decreased range of motion and tenderness. Arms: Neurological: She is alert and oriented to person, place, and time. She has normal reflexes. No cranial nerve deficit or sensory deficit. Gait (weakness- utilizing wheelchair) abnormal. Skin: Skin is warm, dry and intact. Psychiatric: She has a normal mood and affect. Her speech is normal and behavior is normal. Nursing note and vitals reviewed. Pre-hypertension/Hypertension: The patient has been informed that they may have pre-hypertension orhypertension based on a blood pressure reading in the office today. I recommend that the patient call their primary care provider or a physician of their choice this week to arrange follow up for further evaluation of possible pre-hypertension or hypertension. I have also recommended that they try weight loss and exercise for management. Review of Data: SOAPP-R and PHQ-9 questionnaires were reviewed with scores of 35 and 13, respectively. Most recent urine toxicology screen was reviewed, along with local prescription drug monitoring program. Assessment Patient Active Problem List Diagnosis ??? Cervicalgia [...] ??? 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 It is been quite a while since I have seen her, actually since July of 2017. Since that time she unfortunately has apparently had a diagnosis of some type of myelopathy in the cervical spine as she is having persistent falls and weakness extending into lower extremities. She has been thoroughly evaluated by her spine surgeon Dr. Gutierrez who did tell her that this was unfortunately a potential long-term issue. However she has appointments with several neurologists coming up and I anticipate that they would proceed with EMG/nerve conduction studies I am not going to order 1 of those tests today that that would certainly be a requested recommendation. She is exceedingly nervous about this and so was given prescription today for Diazepam tablet to take prior to but must have a petroleum transport driver. As far as her low back I do think she has some pathology there which is causing some significant stenosis and limiting her pain control and quality of life. We have discussed some options to try and treat that today but ultimately I think we need to get the neurology workup 1st and I would like to see her most recent MRIs neck and low back this at this point I do not have a great idea as to the anatomy of these areas. In addition, were going toget her prescription today for Belbuca 150 mcg as well as Percocet 10/325 with 60 tablets. She has been taking Percocet sparingly but still notes both subjective and functional improvement and increased need more recently. She denies any side effect issues. For now, we will see her back in 1 month for follow-up and further treatment planning. This note is prepared by Dorita Adkins, acting as a scribe for Brice Eisenberg MD. I, Omar Elgin, have personally performed the services described in the documentation , reviewed the documentation as recorded by the scribe in my presence, and it accurately and completely records my words and actions though there are potential variances in recording and lead pharmacy technician. documented in this encounter Plan of Treatment [...] of this encounter Visit Diagnoses Diagnosis Cervical spinal stenosis Spinal stenosis in cervical region Chronic midline low back pain with bilateral sciatica Radiculopathy, lumbosacral region Thoracic or lumbosacral neuritis or radiculitis, unspecified documented in this encounter Discontinued Medications Medication Sig Discontinue Reason Start Date End Da te oxyCODONE-acetaminophen (PERCOCET) 10-325 mg per tabletIndications:Pain Take 1 tablet by mouth every 4 (four) hours as needed for pain. Max 5 tablets/day Reorder 10/17/2017 08/27/2018 documented as of this encounter Care Teams Learning Designer Relationship Specialty Start Date End Date Gadiel Zavala MD [address] [address] PCP - General 06/13/16 Lyudmila Knox, RN Registered Nurse 04/14/17 Jennifer Escalona, LOGAN Registered Nurse 05/10/17 documented as of this encounter
--- OUTSIDE RECORDS SUMMARY | 2024-04-17 11:50 | XMS_ITS | Encounter Summary ---
Author Organization [facility] Healthcare Address [address] [place] [address] Care Team Providers Care Dumb Waiter Operator Name Role Phone Gadiel Zavala MD Primary Care Provider [phone] Lyudmila Knox RN Unavailable Unavailable Jennifer Escalona RN Unavailable Agustina vailable Encounter Details Date Type Department Care Team (Late st Contact Info) Description 07/03/2017 Telephone 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 She denies redness, swelling, or drainage at site. She is using heat for comfort with relief. She was instructed to continue with current care and to call if the site is red, drainage noted. Discussed that it might be sore for awhile after the surgery. She is agreeable and will call for any change in status. NER * Telephone Encounter - Susanna Galarza - 07/03/2017 11:15 AM CST Pt asking if the incision should be burning like fire . NER documented in this encounter Plan of Treatment [...] on filedocumented in this encounter Care Teams Dumb Waiter Operator Relationship Specialty Start Date End Date Gadiel Zavala MD [address] [address] PCP - General 06/13/16 Lyudmila Knox, RN Registered Nurse 04/14/17 Jennifer Escalona, LOGAN Registered Nurse 05/10/17 documented as of this encounter
--- OUTSIDE RECORDS SUMMARY | 2024-04-17 11:50 | XMS_ITS | Encounter Summary ---
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 ??Please refer to the physician's procedure / OR operative note. Brice Eisenberg MD IMG XR PROCEDURES Fin al Result Performing Organization Address City/State/[facility] Co de Phone Number [facility] documented in this encounter Visit Diagnoses Not on filedocumented in this encounter Care Teams Tenant Relations Coordinator Relationship Specialty Start Date End Date Gadiel Zavala MD [address] [place] [address] PCP - General 06/13/16 Lyudmila Knox, RN Registered Nurse 04/14/17 Jennifer Escalona, RN Registered Nurse 05/10/17 documented as of this encounter
--- OUTSIDE RECORDS SUMMARY | 2024-04-17 11:50 | XMS_ITS | Encounter Summary ---
Author Organization [facility] Healthcare Address [address] [place] [address] Care Team Providers Care Grill Chef Name Role Phone Gadiel Zavala MD Primary Care Provider [phone] [phone] Lyudmila Knox RN Unavailable Unavailable Jennifer Escalona RN Unavailable Agustina vailable Reason for Visit * Reason Comments Follow-up lead pull Encounter Details Date Type Department Care Team (Late st Contact Info) Description 05/10/2017 11:00 AM WEAVING SUPERVISOR Office Visit [facility] [address] [place] [address] [place] [address] [facility] [address] [phone] Cervicalgia (Primary Dx); Cervical radiculopathy; Chronic midline low back pain with bilateral sciatica; Radiculopathy, lumbosacral region; Spondylosis of cervical joint without myelopathy; Lumbosacral spondylosis without myelopathy; Cervical spinal stenosis; Spinal stenosis of lumbar region without neurogenic claudication; Lumbar post-laminectomy syndrome Social History Tobacco Use Types Packs/Day Years Used Date Smoking Tobacco: Former Cigarettes Q uit: 04/14/1987 Smokeless Tobacco: Never Comments Unknown Sex and Gender Information Value Date Recorded Sex Assigned at Not on file Legal Sex Female 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 WEAVING SUPERVISOR Gender Identity Not on file Sexual Orientation Not on file documented as of this encounter Last Filed Vital Signs Vital Sign Reading Time Taken Comments Blood Pressure 157/103 05/10/2017 11:38 AM WEAVING SUPERVISOR Pulse 80 05/10/2017 11:38 AM WEAVING SUPERVISOR Temperature 36.4 ??C (97.6 ??F) 05/10/2017 11:[address] Respiratory Rate 18 05/10/2017 11:38 AM WEAVING SUPERVISOR Oxygen Saturation 100% 05/10/2017 11:38 AM WEAVING SUPERVISOR Inhaled Oxygen Concentration - - Weight - - Height - - Body Mass Index - - documented in this encounter Patient Instructions * Patient Instructions* Janine Vail RN - 05/10/2017 11:00 AM WEAVING SUPERVISOR Pre Procedure information [] Nothing to eat or drink 8_ hours prior to the procedure. Take the following medications morning of procedure with a small sip of water GERD and THYROID medication [] Do not take pain meds for 4 hours prior to your procedure. [] Hibiclens shower daily 5 days before your procedure. Mupirocin ointment to both nostrils 2 times daily for 5 days before your procedure. [] Your procedure has been scheduled in the operating room. A member of surgery staff will be calling you the day before your surgery with more specific instructions. [] Notify pain management if you are feeling ill, are running temp of > 100.4 or are being treated for an infection. [] You will need a responsible adult to drive and stay with you the day of the procedure. Call us with any questions [phone] Things you need to know after your permanent implant: It is important to keep your incision clean and dry. Notify pain management for any redness, swelling or opening of your incisions. It is recommended to stop smoking and keep your blood sugar within a normal range (70-100 fasting) to help wound healing. No bending, twisting, or lifting for 6 weeks, after that you may resume normal activity. Walking isOK and encouraged. You may resume sexual activity once your doctor says so. Do not soak in a tub or swim in a pool or pop for 4 weeks. You may shower regularly after your post operative visit, until then you may take a sponge bath. ING SUPERVISOR documented in this encounter Ordered Prescriptions Prescription Sig Dispense Quantity Refills Last Filled Start Date End Date oxyCODONE-acetamin ophen (PERCOCET) 10-325 mg per tabletIndications: Pain Take 1 tablet by mouth every 12 (twelve) hours as needed for pain Earliest Fill Date: 05/10/17. 60 tablet 05/10/2017 3 mupirocin (BACTROBAN) 2 % nasal ointmentIndication s:Methicillin-Resi stant S. Aureus Nasal Colonization Apply to each nostril twice daily for five (5) days. After application, press sides of nose together and gently massage. 22 g 05/10/2017 3 chlorhexidine (HIBICLENS) 4 % external liquidIndications: Skin Disinfection Shower with daily for 5 days prior to surgery, especially morning of surgery 236 mL 05/10/2017 3 documented in this encounter Progress Notes * Brice Eisenberg MD - 05/10/2017 11:00 AM CST Patient Name: Kaitlin Bond : 1950 Today's Date: 05/10/2017 PCP: Gadiel Zavala MD Referring: No ref. provider found Chief Complaint Patient presents with ??? Follow-up lead pull JP Pickard returns today with nearly 100% relief of her pain. She was able to increase her activity level substantially, did not need any supplemental medications, and would like to proceed with permanentspinal cord stimulator implant. Allergies Allergen Reactions ??? Dye Hives Was [...] mg tablet celecoxib (CeleBREX) 200 mg capsule chlorhexidine (HIBICLENS) 4 % external liquid DULoxetine DR (CYMBALTA) 60 mg capsule FLUoxetine (PROzac) 20 mg capsule levothyroxine (SYNTHROID, LEVOTHROID) 50 mcg tablet lisinopril (PRINIVIL,ZESTRIL) 40 mg tablet mupirocin (BACTROBAN) 2 % nasal ointment oxyCODONE-acetaminophen (PERCOCET) 10-325 mg per tablet Review [...] reviewed and are negative. Physical Exam Vitals: 05/10/17 1138 BP: (!) 157/103 Pulse: 80 Resp: 18 Temp: 97.6 ??F (36.4 ??C) SpO2: 100% There is no height or [...] stenosis of lumbar region without neurogenic claudication Lumbar post-laminectomy syndrome Plan Melly obviously had excellent relief from the spinal cord stimulator trial and would like to proceed with permanent implant. Consequently, we will trying get that scheduled for her as soon as possible. She was given preoperative instructions today as well as prescriptions for mupirocin ointment andHibiclens washes. She was also given a prescription for Percocet which she utilizes exceedingly sparingly. I will see her back in the operating room for permanent spinal cord stimulator implant. No Follow-up on file. Brice Eisenberg MD I, Omar Eisenberg, have personally performed the services described in the documentation , reviewed the documentation as recorded by the scribe in my presence, and it accurately and completely records my words and actions though there are potential variances in recording and math and science division chair. ING SUPERVISOR ING SUPERVISOR documented in this encounter Plan of Treatment [...] as of this encounter Visit Diagnoses Diagnosis Cervicalgia- Primary Cervical radiculopathy Brachial neuritis or radiculitis nos Chronic midline low back pain with bilateral sciatica Radiculopathy, lumbosacral region Thoracic or lumbosacral neuritis or radiculitis, unspecified Spondylosis of cervical joint without myelopathy Lumbosacral spondylosis without myelopathy Cervical spinal stenosis Spinal stenosis in cervical region Spinal stenosis of lumbar region without neurogenic claudication Lumbar post-laminectomy syndrome Postlaminectomy syndrome, lumbar region documented in this encounter Care Teams Grill Chef Relationship Specialty Start Date End Date Gadiel Zavala MD [address] [address] PCP - General 06/13/16 Lyudmila Knox, RN Registered Nurse 04/14/17 Jennifer Escalona, RN Registered Nurse 05/10/17 documented as of this encounter
--- OUTSIDE RECORDS SUMMARY | 2024-04-17 11:50 | XMS_ITS | Encounter Summary ---
Author Organization [facility] Address [address] [place] [address] Care Team Providers Care Cinder Block Mason Name Role Phone Gadiel Zavala MD Primary Care Provider [phone] [phone] Lyudmila Knox RN Unavailable Unavailable Jennifer Escalona RN Unavailable Agustina vailable Reason for Visit * Cardiology (Routine) - Closed Specialty Diagnoses / Procedures Referred By Contac t Referred To Contact Diagnoses Paroxysmal atrial fibrillation (CMS/HCC) (HCC) Procedures MCT Mobile Cardiac Telemetry Event Monitor Bobo Perez MD Phone: tel: fax: [facility] Referral ID Status Reason Start Date Expiration Date Visits Re quested Visits Authorized [id number] Closed 03/29/2022 04/28/2023 1 1 Encounter Details Date Type Department Care Team (Latest Contact Info) Description 03/29/2022 2:15 PM PATIENT SAFETY OFFICER Ancillary Procedure [facility] Cardiology [address] [place] [address] Paroxysmal atrial fibrillation (CMS/HCC) (HCC) Social History Tobacco Use Types Packs/Day Years Used Date Smoking Tobacco: Former Cigarettes Q uit: 04/14/1987 Smokeless Tobacco: Never Alcohol Use Standard Drinks/Week Comments Yes 0 (1 standard drink = 0.6 oz pur e alcohol) social Comments No Sex and Gender Information Value Date Recorded Sex Assigned at Not on file Legal Sex Female 3:22 AM PATIENT SAFETY OFFICER Gender Identity Not on file Sexual [...] Procedure Name Priority Date/Time Associated Diagnosis Comments MCT - MOBILE CARDIAC TELEMETRY EVENT MONITOR Routine 03/29/2022 4:18 PM PATIENT SAFETY OFFICER Paroxysmal atrial fibrillation (CMS/HCC) (HCC) documented in this encounter Results * MCT Mobile Cardiac Telemetry Event Monitor (03/29/2022 4:18 PM PATIENT SAFETY OFFICER) Anatomical Region Laterality Modality Other Narrative 05/04/2022 3:16 PM PATIENT SAFETY OFFICER [facility] MORTICIAN REPORT Patient Name: Kaitlin Bond Date of : 1950 ?? Requesting Physician: ??Dr. Perez Date of interpretation: 05/04/22 Type of monitor : ??30 day event monitor; time monitored 22 days, 9 hours, 8 minutes Date of the study/Enrollment period: ??03/29/2022-04/30/2022 Indication: ??Paroxysmal atrial fibrillation Quality of the study: ??Adequate Interpretation: ??Predominant underlying rhythm is sinus rhythm, heart rate ranges between 50 beats per minute to 120 beats per minute, average heart rate 66 beats per minute. ??Occasional PACs and PVCs were noted with a burden of less than 1% each for the duration of the study. ??No atrial fibrillation or flutter was noted. ??No significant heart blocks or pauses. No symptoms reported. Conclusions: Predominant underlying rhythm is sinus rhythm, average heart rate 66 beats per minute. Occasional PACs and PVCs. No atrial fibrillation or flutter was noted. No symptoms reported. Voice recognition software was used to complete this document, therefore, hydroelectric component machinist variances may occur. Emilio Leggett MD, [facility] 05/04/22 Procedure Note Emilio Leggett MD - 05/04/2022 [facility] MORTICIAN REPORT Patient Name: Kaitlin Bond Date of : 1950 Requesting Physician: Dr. Perez Date of interpretation: 05/04/22 Type of monitor : 30 day event monitor; time monitored 22 days, 9 hours,8 minutes Date of the study/Enrollment period: 03/29/2022-04/30/2022 Indication: Paroxysmal atrial fibrillation Quality of the study: Adequate Interpretation: Predominant underlying rhythm is sinus rhythm, heart rateranges between 50 beats per minute to 120 beats per minute, average heartrate 66 beats per minute. Occasional PACs and PVCs were noted with aburden of less than 1% each for the duration of the study. No atrialfibrillation or flutter was noted. No significant heart blocks or pauses.No symptoms reported. Conclusions: Predominant underlying rhythm is sinus rhythm, average heart rate 66 beatsper minute. Occasional PACs and PVCs. No atrial fibrillation or flutter was noted. No symptoms reported. Voice recognition software was used to complete this document, therefore,hydroelectric component machinist variances may occur. Emilio Leggett MD, [facility] 05/04/22 Bobo Perez MD CV CARDIAC SERVICES PROC EDURES Final Result documented in this encounter Visit Diagnoses Diagnosis Paroxysmal atrial fibrillation (CMS/HCC) (HCC) Atrial fibrillation documented in this encounter Care Teams Cinder Block Mason Relationship Specialty Start Date End Date Gadiel Zavala MD [address] [address] PCP - General 06/13/16 Lyudmila Knox, RN Registered Nurse 04/14/17 Jennifer Escalona, LOGAN Registered Nurse 05/10/17 documented as of this encounter
--- OUTSIDE RECORDS SUMMARY | 2024-04-17 11:50 | XMS_ITS | Encounter Summary ---
Author Organization [facility] Address [address] [place] [address] Care Team Providers Care Semi Truck Driver Name Role Phone Gadiel Zavala MD Primary Care Provider [phone] [phone] Lyudmila Knox RN Unavailable Unavailable Jennifer Escalona RN Unavailable Agustina vailable Reason for Referral * Cardiology (Routine) - Closed Specialty Diagnoses / Procedures Referred By Contmarianela t Referred To Contact Diagnoses Paroxysmal atrial fibrillation (CMS/HCC) (HCC) Procedures MCT Mobile Cardiac Telemetry Event Monitor Bobo Perez MD Phone: tel: fax: [facility] Referral ID Status Reason Start Date Expiration Date Visits Re quested Visits Authorized [id number] Closed 03/29/2022 04/28/2023 1 1 LEVELER Reason for Visit * Reason Comments Follow-up 4 mo f/u Atrial Fibrillation Hypertension Encounter Details Date Type Department Care Team (Latest Contact Info) Description 03/29/2022 2:00 PM SOLE LEVELER Office Visit [facility] Cardiology [address] [place] [address] Bobo Perez MD [address] [place] [address] [address] [place] [address] Paroxysmal atrial fibrillation (CMS/HCC) (HCC) (Primary Dx); Contraindication to anticoagulation therapy; Mixed hyperlipidemia; Primary hypertension; Frequent falls; Lipid screening Social History Tobacco Use Types Packs/Day Years Used Date Smoking Tobacco: Former Cigarettes Q uit: 04/14/1987 Smokeless Tobacco: Never Tobacco Cessation:Counseling Given: Not Answered Alcohol Use Standard Drinks/Week Comments Yes 0 (1 standard drink = 0.6 oz pur e alcohol) social Comments No Sex and Gender Information Value Date Recorded Sex Assigned at Not on file Legal Sex Female 3:22 AM SOLE LEVELER Gender Identity Not on file Sexual Orientation Not on file documented as of this encounter Last Filed Vital Signs Vital Sign Reading Time Taken Comments Blood Pressure 118/70 03/29/2022 2:08 PM SOLE LEVELER Pulse 66 03/29/2022 2:08 PM SOLE LEVELER Temperature - - Respiratory Rate - - Oxygen Saturation 99% 03/29/2022 2:08 PM SOLE LEVELER Inhaled Oxygen Concentration - - Weight 54.3 kg (119 lb 11.2 oz) 03/29/2022 2:08 PM SOLE LEVELER Height 160 cm (5' 3 ) 03/29/2022 2:08 PM SOLE LEVELER Body Mass Index 21.2 03/29/2022 2:08 PM SOLE LEVELER documented in this encounter Ordered Prescriptions Prescription Sig Dispense Quantity Refills Last Filled Start Date End Date aspirin (Adult Low Dose Aspirin) 81 mg enteric coated tablet Take 1 tablet (81 mg total) by mouth daily 03/29/2022 documented in this encounter Progress Notes * oBbo Perez MD - 03/29/2022 2:00 PM CST Images from the original note were not included. DATE OF VISIT: 03/29/2022 CHIEF COMPLAINT Chief Complaint Patient presents with ??? Follow-up 4 mo f/u ??? Atrial Fibrillation ??? Hypertension ASSESSMENT Diagnoses and all orders for this visit: Paroxysmal atrial fibrillation (CMS/HCC) (HCC) (Primary) - MCT Mobile Cardiac Telemetry Event Monitor; Future Contraindication to anticoagulation therapy Mixed hyperlipidemia Primary hypertension Frequent falls Lipid screening - POCT lipid panel Other orders - aspirin (Adult Low Dose Aspirin) 81 mg enteric coated tablet; Take 1 tablet (81 mg total) by mouth daily PLAN/RECOMMENDATIONS Stable, A. Fib controlled. Continue current medical therapy and systemic anticoagulation for strokerisk reduction. CHADS2 Vasc score 3. Explained at great length with the patient and her systemic anticoagulation advised for adequate stroke risk reduction. However, patient has relative contr aindication due to frequent falls and history of head injury and is for potential catastrophic intracerebral hemorrhage. Therefore, I do not feel she is an adequate candidate and have advised she discontinue Xarelto. We discussed this at length pros cons and increased risk for embolic stroke risk with recurrent atrial fibrillation. Patient and her fully agree she is not a candidate for anticoagulation and wished to discontinue. She will start aspirin 81 mg daily although they are aware this is an in adequate stroke risk reduction strategy. We discussed at length referral for left atrial appendage occlusion device consideration. She has only 1 previously documented episode of AFib with RVR. Thirty day electronic device monitor to assess for recurrent AFib further risk stratification. Recommendations to follow. BP controlled, goal less than 140/90 mm [...] with any additional questions or concerns. JP Bond is a 71 y.o. female with a PMHx of hypertension, hyperlipidemia, recent diagnosiscolonic adenocarcinoma, and atrial fibrillation. This is a patient who presented to [facility] for laparoscopic right hemicolectomy on October [...] her hospitalization. 11/17/2021 Hospital follow-up with CK PROGRAMMER ANALYST CONSULTANT - Kaitlinphilly Bond comes to the office today for [...] she is unstable and high fall risk. MEDICAL HISTORY Past Medical History: Diagnosis Date ??? Anemia ??? Arthritis ??? Awareness under anesthesia ??? Chronic back pain ??? Depression ??? GERD (gastroesophageal reflux disease) ??? Hyperlipidemia ??? Hypertension ??? Hypothyroidism ??? Neuropathy (CMS/HCC) SOCIAL HISTORY reports that she quit smoking about 34 years ago. Her smoking use included cigarettes. She has never used smokeless tobacco. She reports that she does not use drugs. No alcohol history on file. FAMILY HISTORY family history includes Hypertension in her mother; Leukemia in her father. MEDICATIONS HOME MEDICATIONS : atorvastatin (LIPITOR) 20 mg tablet eszopiclone (LUNESTA) tablet levothyroxine (SYNTHROID, LEVOTHROID) 50 mcg tablet metoprolol XL (TOPROL-XL) 100 mg 24 hr tablet metoprolol XL (TOPROL-XL) 25 mg extended release tablet omeprazole (PriLOSEC) 40 mg capsule oxybutynin (DITROPAN) 5 mg tablet Xarelto 20 mg tablet amLODIPine (NORVASC) 10 mg tablet aspirin (Adult Low Dose Aspirin) 81 mg enteric coated tablet b complex vitamins capsule buprenorphine HCl (BELBUCA) 150 mcg film calcium carbonate-vitamin D3 600 mg (1,500 mg)-800 unit tablet,chewable celecoxib (CeleBREX) 200 mg capsule chlorhexidine (HIBICLENS) 4 % external liquid diazePAM (VALIUM) 10 mg tablet FLUoxetine (PROzac) 20 mg capsule losartan (COZAAR) 25 mg tablet mupirocin (BACTROBAN) 2 % nasal [...] and are negative. PHYSICAL EXAM Vitals BP 118/70 (BP Location: Right arm, Patient Position: Sitting) Pulse 66 Ht 160 cm (5' 3 ) Wt 54.3 kg (119 lb 11.2 oz) SpO2 99% BMI 21.20 kg/m?? Weight: 54.3 kg (119 lb 11.2 oz) Height: 160 cm (5' 3 ) Body mass index is 21.2 kg/m??. Physical Exam Vitals reviewed. Constitutional: General: [...] 174 mg/dL Cholesterol Total, POC 240 mg/dL I have personally reviewed and analyzed EKG, electronic medical record, and bloodwork/lipids. Reviewed [facility] records, 12 lead EKG 10/16/2021 AFib RVR [address] abnormality consider ischemia Harleen Perez MD, [facility] This note is dictated and transcribed using [employer]ELbeat Direct Software. Bench Jeweler variancesmay occur. Despite proofreading, typographical errors may occur. LEVELER documented in this encounter Plan of Treatment [...] Associated Diagnosis Comments POCT LIPID PANEL Routine 03/29/2022 2:13 PM SOLE LEVELER Lipid screening documented in this encounter Results * MCT Mobile Cardiac Telemetry Event Monitor (03/29/2022 4:18 PM SOLE LEVELER) Anatomical Region Laterality Modality Other Narrative 05/04/2022 3:16 PM SOLE LEVELER AMBULATORY INVENTORY CONTROL ANALYST REPORT Patient Name: Kaitlin Bond Date of [...] was used to complete this document, therefore, high school football coach variances may occur. Emilio Leggett MD, [facility] 05/04/22 Procedure Note Emilio Leggett MD - 05/04/2022 AMBULATORY INVENTORY CONTROL ANALYST REPORT Patient Name: Kaitlin Bond Date of [...] software was used to complete this document, therefore,high school football coach variances may occur. Emilio Leggett MD, [facility] 05/04/22 Bobo Perez MD CV CARDIAC SERVICES PROC EDURES Final Result * POCT lipid panel (03/29/2022 2:13 PM SOLE LEVELER) Cholesterol, POC 240 mg/dL Comment:GLU = 120 HDL, POC 66 mg/dL Triglycerides, POC 95 mg/dL LDL Cholesterol POC 155 mg/dL Chol/HDL Ratio, POC 2.3 Non-HDL Cholesterol, POC 174 mg/dL Cholesterol Total, POC 240 mg/dL Capillary blood 03/29/2022 2 :13 PM SOLE LEVELER Bobo Perez MD POINT OF CARE TEST ORDER PILAR Final Result documented in this encounter Visit Diagnoses Diagnosis Paroxysmal atrial fibrillation (CMS/HCC) (HCC)- Primary Atrial fibrillation Contraindication to anticoagulation therapy Mixed hyperlipidemia Primary hypertension Unspecified essential hypertension Frequent falls Lipid screening Screening for lipoid disorders Paroxysmal atrial fibrillation (CMS/HCC) (HCC) Atrial fibrillation documented in this encounter Discontinued Medications Medication Sig Discontinue Reason Start Date End Da te Xarelto 20 mg tablet TAKE 1 TABLET BY MOUTH ONCE DAILY WITH EVENING MEAL 10/19/2021 03/29/2022 documented as of this encounter Historical Medications * This list may reflect changes made after this encounter. metoprolol XL (TOPROL-XL) 100 mg 24 hr tablet Take 1 tablet (100 mg total) by mouth daily TAKE IN COMBINATION WITH 25 MG TABLET oxybutynin (DITROPAN) 5 mg tablet Take 1 tablet (5 mg total) by mouth 2 (two) times a day 4 added in this encounter Care Teams Semi Truck Driver Relationship Specialty Start Date End Date Gadiel Zavala MD [address] [address] PCP - General 06/13/16 Lyudmila Knox, RN Registered Nurse 04/14/17 Jennifer Escalona, RN Registered Nurse 05/10/17 documented as of this encounter
--- OUTSIDE RECORDS SUMMARY | 2024-04-17 11:50 | XMS_ITS | Encounter Summary ---
Author Organization [facility] Address [address] [place] [address] Care Team Providers Care Ampoule Inspector Name Role Phone Gadiel Zavala MD Primary Care Provider [phone] Lyudmila Knox RN Unavailable Unavailable Jennifer Escalona RN Unavailable Agustina vailable Encounter Details Date Type Department Care Team (Late st Contact Info) Description 06/28/2017 10:15 AM METAL SLITTER - 06/28/2017 10:30 AM [facility] Surgery [facility] [address] [place] [address] [place]ice Eisenberg [place] [id number] [place] [address] Neurostimulator Analysis Spinal Cord 395[address] Surgery Details Date/Time Status Location OR Service Patient Class Case Class Case Type Trauma Case? 06/28/2017 10:15 AM Posted Pain Management Procedure Center RM 1 Pain Management Outpatient Elective Panel 1 Procedure LRB Anes Op Region Wound Class Comments Neurostimulator Analysis Spinal Cord [address] N/A Surgeon Surgeon Role Service Panel Brice Eisenberg [...] on file Legal Sex Female 3:22 AM METAL SLITTER Gender Identity Not on file Sexual Orientation Not on file documented as of this encounter Last Filed Vital Signs Vital Sign Reading Time Taken Comments Blood Pressure 164/110 06/28/2017 10:16 AM METAL SLITTER patient will fu with pcp Pulse 87 06/28/2017 10:16 AM METAL SLITTER Temperature 36.8 ??C (98.2 ??F) 06/28/2017 1 0:16 AM METAL SLITTER Respiratory Rate 16 06/28/2017 10:1 6 AM METAL SLITTER Oxygen Saturation 100% 06/28/2017 10: 16 AM METAL SLITTER Inhaled Oxygen Concentration - - Weight - [...] for : Procedure(s): Neurostimulator Analysis Spinal Cord [address] L SLITTER Source Note - Brice Eisenberg MD - 06/22/2017 11:10 AM METAL SLITTER Patient Name: Kaitlin Bond : 1950 Today's [...] ABD- WNL EXTR- WNL Post-op Dx: Same L SLITTER documented in this encounter Miscellaneous Notes * Perioperative Nursing Note - Shruthi Ramirez RN - 06/28/2017 10:23 AM CST Dressings were removed, incisions look great, no warmth or redness, glue is intact, pt tolerated well. L SLITTER * Op Note - Brice Eisenberg MD - 06/28/2017 10:15 AM CST Procedure performed: Complex reprogramming of spinal cord stimulator pulse generator Indication for procedure: Patient is returning following spinal cord stimulator implant with diagnoses of lumbago and lumbar post-laminectomy syndrome. Description procedure: With the help of the [place] retail account representative, complex reprogramming of Patspinal cord stimulator pulse generator was performed. Burst stimulation was activated. Note that her incision sites look excellent and there is no evidence of infection. We will plan to see her back in 1 month earlier if needed. She was cautioned against any excessive bending lifting or twisting for the next 5 weeks. L SLITTER documented in this encounter Plan of Treatment [...] Associated Diagnosis Comments NEUROSTIMULATOR ANALYSIS SPINAL CORD [address] 06/28/2017 4:19 PM METAL SLITTER post op stimm documented in this encounter Visit Diagnoses Not on filedocumented in this encounter Care Teams Ampoule Inspector Relationship Specialty Start Date End Date Gadiel Zavala MD [address] [address] PCP - General 06/13/16 Lyudmila Knox, RN Registered Nurse 04/14/17 Jennifer Escalona, LOGAN Registered Nurse 05/10/17 documented as of this encounter
--- OUTSIDE RECORDS SUMMARY | 2024-04-17 11:50 | XMS_ITS | Encounter Summary ---
Author Organization [facility] Address [address] [place] [address] Care Team Providers Care Appraiser Irrigation Tax Name Role Phone Gadiel Zavala MD Primary Care Provider [phone] Lyudmila Knox RN Unavailable Unavailable Jennifer Escalona RN Unavailable Agustina vailable Encounter Details Date Type Department Care Team (Late st Contact Info) Description 10/17/2021 Orders Only [facility] Cardiology [address] [place] [address] [place] [address] [place] [address] Social History Tobacco Use Types Packs/Day Years Used Date Smoking Tobacco: Former Cigarettes Q uit: 04/14/1987 Smokeless Tobacco: Never Alcohol Use Standard Drinks/Week Comments Yes 0 (1 standard drink = 0.6 oz pur e alcohol) social Comments No Sex and Gender Information Value Date Recorded Sex Assigned at Not on file Legal Sex Female 3:22 AM RAILROAD AUDITOR Gender Identity Not on file Sexual Orientation [...] Associated Diagnosis Comments CARDIOLOGY DOCUMENT SCAN Routine 10/17/2021 documented in this encounter Results * Cardiology Document Scan (10/17/2021) Anatomical Region Laterality Modality Other Bobo Perez MD CV CARDIAC SERVICES PROC EDURES Final Result documented in this encounter Visit Diagnoses Not on filedocumented in this encounter Care Teams Appraiser Irrigation Tax Relationship Specialty Start Date End Date Gadiel Zavala MD [address] [address] PCP - General 06/13/16 Lyudmila Knox, RN Registered Nurse 04/14/17 Jennifer Escalona, RN Registered Nurse 05/10/17 documented as of this encounter
--- OUTSIDE RECORDS SUMMARY | 2024-04-17 11:50 | XMS_ITS | Encounter Summary ---
Author Organization [facility] Address [address] [place] [address] Care Team Providers Care Education Teacher Name Role Phone Gadiel Zavala MD Primary Care Provider [phone] Lyudmila Knox RN Unavailable Unavailable Jennifer Escalona RN Unavailable Agustina vailable Reason for Referral * Cardiology (Routine) - Closed Specialty Diagnoses / Procedures Referred By Contac t Referred To Contact Procedures ECG 12 lead Darwin Drake MD [address] [place] [address] Phone: tel: Referral ID Status Reason Start Date Expiration Date Visits Re quested Visits Authorized [id number] Closed 06/15/2022 07/15/[address] FIRE PREVENTION MANAGER Encounter Details Date Type Department Care Team (Late st Contact Info) Description 06/15/2022 Orders Only [facility] Cardiology [address] [place] [address] Darwin Drake MD [address] [place] [address] Social History Tobacco Use Types Packs/Day Years Used Date Smoking Tobacco: Former Cigarettes Q uit: 04/14/1987 Smokeless Tobacco: Never Alcohol Use Standard Drinks/Week Comments Yes 0 (1 standard drink = 0.6 oz pur e alcohol) social Comments No Sex and Gender Information Value Date Recorded Sex Assigned at Not on file Legal Sex Female 3:22 AM FOREST FIRE PREVENTION MANAGER Gender Identity Not on file Sexual [...] Date/Time Associated Diagnosis Comments ECG 12-LEAD Routine 10/16/2021 documented in this encounter Results * ECG 12 lead (10/16/2021) us Historical Provider ECG ORDERABLES Final Res ult documented in this encounter Visit Diagnoses Not on filedocumented in this encounter Care Teams Education Teacher Relationship Specialty Start Date End Date Gadiel Zavala MD [address] [address] PCP - General 06/13/16 Lyudmila Knox, RN Registered Nurse 04/14/17 Jennifer Escalona, LOGAN Registered Nurse 05/10/17 documented as of this encounter
--- OUTSIDE RECORDS SUMMARY | 2024-04-17 11:50 | XMS_ITS | Encounter Summary ---
Author Organization [facility] Healthcare Address [address] [place] [address] Care Team Providers Care Measurement And Verification Engineer Name Role Phone Gadiel Zavala MD Primary Care Provider [phone] Lyudmila Knox RN Unavailable Unavailable Jennifer Escalona RN Unavailable Agustina vailable Encounter Details Date Type Department Care Team (Late st Contact Info) Description 06/22/2017 11:48 AM DIRECTOR OF LABOR AND DELIVERY Anesthesia Event [facility] Operating Room [address] [place] [address] Láz[place] [id number] [address] Mandy Mayer Anesthesia Record Procedure Summary Procedure Name Responsible Anesthesiologist Anesthesia Start Time Anesthesia Stop Time Insertion Spinal Cord Stimulator (Back) Lázaro Field MD 06/22/17 1148 06/22/17 1327 Events Date Time Event Comment 06/22/2017 1047 1147 An Induction The patient was reevaluated immediately before moderate or deep sedation use and before anesthesia induction. 1147 Quick Note AMBER Charlton present throughout case [id number] An Start 1148 AN Equip Check 1148 An Start Data 1148 Start Supplemental O2 1148 In Room 1149 Anesthesia Ready 1211 Incision Start 1312 an stop data 1317 Out of Room 1323 Handoff to RN I completed my handoff [...] disposition at the time of handoff: PACU 1327 An Stop Meds Name Total midazolam 2 mg fentaNYL 50 mcg ketamine 25 mg propofol 20 mg propofol 172.98 mg ceFAZolin (ANCEF) IV syringe (100 mg/mL in SW) 1,000 mg 1,000 mg ondansetron 4 mg glycopyrrolate 0.1 mg dexamethasone 4 mg/ml 4 mg scopolamine patch 1 mg 1 patch diphenhydrAMINE 12.5 mg ketorolac 15 mg Lactated Ringer's (LR) infusion 500 mL * Agents Name O2 * Blood No blood administrations on file. Lines, Drains, and Airways Type Details Placement Removal RETIRED Surgical Site 05/03/17; 0716; Didier saini; tegaderm and medipore tape; 11/16/23; Not present on admission 05/03/17 0716 by Shruthi Johnson RN 11/16/23 0000 by Ina Renae RN Peripheral IV Placement Date: 06/22/17; Placement Time: 1023; Catheter Size: 20 G; Orientation: Left; Location: Antecubital; Site Prep: Chlorhexidine; Inserted by: estefany jennings; Insertion Attempts: 1; Patient Tolerance: Tolerated well; Removal Date: 06/22/17; Removal Time: 1445 (catheter tip intact); Removal Reason: Per protocol 06/22/17 1023 by Estefany Jennings RN 06/22/17 1445 by Sagar Paez RN RETIRED Surgical Site 06/22/17; 1244; Didier saini; 11/16/23; Not present on admission 06/22/17 1244 by Rochelle Henderson 11/16/23 0000 by Ina Renae RN documented in this encounter Social History Tobacco Use Types Packs/Day Years Used Date Smoking Tobacco: Former Cigarettes Q uit: 04/14/1987 Smokeless Tobacco: Never Alcohol Use Standard Drinks/Week Comments Yes 0 (1 standard drink = 0.6 oz pur e alcohol) social Comments Unknown Sex and Gender Information Value Date Recorded Sex Assigned at Not on file Legal Sex Female 3:22 AM DIRECTOR OF LABOR AND DELIVERY Gender Identity Not on file Sexual Orientation Not on file documented as of this encounter OR Notes * Anesthesia Postprocedure Evaluation - Yaw Eng CRNA - 06/22/2017 1:47 PM CST Patient: Kaitlin Bond Procedure Summary Date: 06/22/17 Room / Location: OPERATING ROOM 15 / OPERATING ROOM Anesthesia Start: 1148 Anesthesia Stop: 1327 Procedure: Insertion Spinal Cord Stimulator (N/A Back) Diagnosis: (BACK PAIN) Provider: Brice Eisenberg MD Responsible Provider: Lázaro Field MD Anesthesia Type: MAC ASA Status: 2 Anesthesia Type: MAC Last vitals BP 135/78 (06/22/17 1345) Temp 36.9 ??C (98.4 ??F) (06/22/17 1321) Pulse 92 (06/22/17 1345) Resp 12 (06/22/17 1345) SpO2 98 % (06/22/17 1345) Anesthesia Post Evaluation Patient location during evaluation: PACU Patient participation: complete - patient participated Level of consciousness: fully awake Pain score: 0 Pain management: adequate Airway patency: adequate Evidence of recall: yes (MAC Anesthesia) Anesthetic complications: no Cardiovascular status: acceptable Respiratory status: acceptable Hydration status: acceptable Pt is: normothermic Nausea/Vomiting status: none CTOR OF LABOR AND DELIVERY * Anesthesia Postprocedure Evaluation - Mandy Mayer CRNA - 06/22/2017 1:29 PM CST Patient: Kaitlin Bond Procedure Summary Date: 06/22/17 Room / Location: OPERATING ROOM 15 / OPERATING ROOM Anesthesia Start: 1148 Anesthesia Stop: 1327 Procedure: Insertion Spinal Cord Stimulator (N/A Back) Diagnosis: (BACK PAIN) Provider: Brice Eisenberg MD Responsible Provider: Lázaro Field MD Anesthesia Type: MAC ASA Status: 2 Anesthesia Type: MAC Last vitals BP Temp 36.9 ??C (98.4 ??F) (06/22/17 1321) Pulse 99 (06/22/17 1321) Resp 16 (06/22/17 1321) SpO2 100 % (06/22/17 1321) Anesthesia Post Evaluation Patient location during evaluation: PACU Patient participation: complete - patient participated Level of consciousness: fully awake Pain score: 0 Pain management: adequate Airway patency: adequate Anesthetic complications: no Cardiovascular status: acceptable and hemodynamically stable Respiratory status: acceptable and room air Hydration status: acceptable Pt is: normothermic Nausea/Vomiting status: none CTOR OF LABOR AND DELIVERY * Anesthesia Preprocedure Evaluation - Lázaro Field MD - 06/22/2017 10:44 AM CST Anesthesia Evaluation Kaitlin Bond is a 66 y.o. female HISTORY Past Medical History Neurological + Psychiatric history - anxiety and depression + Neuromuscular disease (neuropathy) Cardiovascular + Hypertension Respiratory Respiratory system: negative Gastrointestinal + GERD - on daily therapy. Asymptomatic. Renal / Renal/ system: negative Endocrine / Other + Thyroid disease - hypothyroidism + Osteoarthritis Functional Capacity Functional capacity: <4 METs Functional capacity limited by a non-cardiovascular, non-pulmonary condition. Patient Active Problem List Diagnosis ??? Cervicalgia ??? Cervical radiculopathy ??? 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 Cervical spinal stenosis ??? Chronic midline low back pain with bilateral sciatica ??? Lumbosacral spondylosis without myelopathy ??? Radiculopathy, lumbosacral region ??? Spinal stenosis of lumbar region without neurogenic claudication ??? Lumbar post-laminectomy syndrome Past Medical History: Diagnosis Date ??? Anemia ??? Arthritis ??? Awareness under anesthesia ??? Chronic back pain ??? Depression ??? GERD (gastroesophageal reflux disease) ??? Hyperlipidemia ??? Hypertension ??? Hypothyroidism ??? Neuropathy (CMS/HCC) Past Surgical History: Procedure Laterality Date ??? ANTERIOR FUSION CERVICAL SPINE ??? HYSTERECTOMY ??? SPINE SURGERY lumbar OB History No data available Allergies Allergen Reactions ??? Dye Hives Was getting MRI and developed hives while dye infusion. ??? Adhesive Tape-Silicones Rash Reaction: RASH HOME MEDICATIONS : amLODIPine (NORVASC) 10 mg [...] capsule oxyCODONE-acetaminophen (PERCOCET) 10-325 mg per tablet Current Facility-Administered Medications: ??? Lactated Ringer's (LR) infusion, 50 mL/hr, intravenous, Continuous, Last Rate: 50 mL/hr at 06/22/17 1025, 1,000 mL at 06/22/17 1025 Social History Smoking Status ??? Former Smoker ??? Quit date: 04/14/1987 Smokeless Tobacco ??? Never Used Alcohol Use ??? Yes Comment: social Drug Use No Family History Problem Relation Age of Onset ??? Hypertension Mother ??? Leukemia Father PAT Physical Exam Vitals: 06/22/17 1001 BP: 159/98 Pulse: 77 Resp: 16 Temp: 36.5 ??C (97.7 ??F) SpO2: 100% PT: No results found for requested labs within last 720 hours. INR: No results found for requested labs within last 720 hours. APTT: No results found for requested labs within last 720 hours. Hgb A1C: No results found for requested labs within last 720 hours. CBC RBC: No results found for requested labs within last 720 hours. RDW: No results found for requested labs within last 720 hours. MCHC: No results found for requested labs within last 720 hours. MCH: No results found for requested labs within last 720 hours. MCV: No results found for requested labs within last 720 hours. Hct: No results found for requested labs within last 720 hours. Hgb: No results found for requested labs within last 720 hours. WBC: No results found for requested labs within last 720 hours. MPV: No results found for requested labs within last 720 hours. Platelets: No results found for requested labs within last 720 hours. RDW CV: No results found for requested labs within last 720 hours. RDW Sd: No results found for requested labs within last 720 hours. BMP Glucose: No results found for requested labs within last 720 hours. Calcium: No results found for requested labs within last 720 hours. Sodium: No results found for requested labs within last 720 hours. Potassium: No results found for requested labs within last 720 hours. CO2: No results found for requested labs within last 720 hours. Chloride: No results found for requested labs within last 720 hours. BUN: No results found for requested labs within last 720 hours. Creatinine: No results found for requested labs within last 720 hours. DOS Physical Exam Medical history, medications, and allergies reviewed. Attestation: I endorse the findings of the anesthesia pre-evaluation assessment dated: 06/22/2017. Airway Exam: Mallampati: I Cervical ROM: FROM TM distance: normal Jaw ROM: full Cardiovascular Exam: Rate: regular Rhythm: regular Pulmonary Exam: LCTA, bilat EENT Exam: trachea midline Dental Exam: (Full/intact) Current state: Patients current state is cooperative and interactive. Anesthesia Plan ASA 2 Planned anesthesia: General Team communication plan: oral ET tube Induction: Induction: intravenous. Postoperative Plan: Postoperative administration opioids intended. No postoperative mechanical ventilation intended. Patient's planned disposition post procedure is Outpatient. Informed Consent: Discussed plan with [employer]ACH. Anesthesia plan and risks discussed with patient and spouse. Consent and Attending signature: I and/or my designee have discussed the anesthesia plan, benefits, possible alternatives, parental presence at time of induction (if indicated), and clinically relevant risks that may include dental injury, unintentional awareness, and/or other complications. The patient and/or parent/legal guardian understand, and agree to proceed. All questions answered. CTOR OF LABOR AND DELIVERY documented in this encounter Plan of Treatment [...] Action Date Dose Rate Site ceFAZolin (ANCEF) IV syringe (100 mg/mL in SW) 1,000 mg 1,000 mg, intravenous, Administer over 5 Minutes, Once, On Juany 06/22/17 at 1145, For 1 dose, Indications: Prophylaxis, SurgicalIndications:Prophylaxis , Surgical Given 06/22/2017 12:00 PM DIRECTOR OF LABOR AND DELIVERY 1,000 mg dexamethasone (DECADRON) injection As needed, Starting on Juany 06/22/17 at 1150, Anesthesia Intra-op Given 06/22/2017 11:50 AM DIRECTOR OF LABOR AND DELIVERY 4 mg diphenhydrAMINE (BENADRYL) injection As needed, Starting on Juany 06/22/17 at 1255, Anesthesia Intra-op Given 06/22/2017 12:55 PM DIRECTOR OF LABOR AND DELIVERY 12.5 mg fentaNYL (SUBLIMAZE) preservative free injection intravenous, As needed, Starting on Juany 06/22/17 at 1235, Anesthesia Intra-op Given 06/22/2017 12:45 PM DIRECTOR OF LABOR AND DELIVERY 25 mcg Given 06/22/2017 12:35 PM DIRECTOR OF LABOR AND DELIVERY 25 mcg glycopyrrolate (ROBINUL) injection As needed, Starting on Juany 06/22/17 at 1148, Anesthesia Intra-op Given 06/22/2017 11:48 AM DIRECTOR OF LABOR AND DELIVERY 0.1 mg ketamine (KETALAR) injection intravenous, As needed, Starting on Juany 06/22/17 at 1235, Anesthesia Intra-op Given 06/22/2017 12:35 PM DIRECTOR OF LABOR AND DELIVERY 25 mg ketorolac (TORADOL) injection As needed, Starting on Juany 06/22/17 at 1256, Anesthesia Intra-op Given 06/22/2017 12:56 PM DIRECTOR OF LABOR AND DELIVERY 15 mg midazolam (VERSED) preservative free injection intravenous, As needed, Starting on Juany 06/22/17 at 1149, Anesthesia Intra-op Given 06/22/2017 12:10 PM DIRECTOR OF LABOR AND DELIVERY 1 mg Given 06/22/2017 11:49 AM DIRECTOR OF LABOR AND DELIVERY 1 mg ondansetron (ZOFRAN) injection As needed, nausea, vomiting, Starting on Juany 06/22/17 at 1149, Anesthesia Intra-op Given 06/22/2017 11:49 AM DIRECTOR OF LABOR AND DELIVERY 4 mg propofol (DIPRIVAN) IV As needed, Starting on Juany 06/22/17 at 1213, Anesthesia Intra-op Given 06/22/2017 12:13 PM DIRECTOR OF LABOR AND DELIVERY 20 mg propofol (DIPRIVAN) IV Continuous PRN, Starting on Juany 06/22/17 at 1230, Anesthesia Intra-op Rate/Dose Change 06/22/2017 12:55 PM DIRECTOR OF LABOR AND DELIVERY 75 mcg/kg/min 25.1 mL/hr Rate/Dose Change 06/22/2017 12:49 PM DIRECTOR OF LABOR AND DELIVERY 100 mcg/kg/min 33 .5 mL/hr Rate/Dose Change 06/22/2017 12:35 PM DIRECTOR OF LABOR AND DELIVERY 75 mcg/kg/min 25. 1 mL/hr scopolamine patch 72 hour Administer over 72 Hours, As needed, Starting on Juany 06/22/17 at 1147, Anesthesia Intra-op Given 06/22/2017 11:47 AM DIRECTOR OF LABOR AND DELIVERY 1 patch documented in this encounter Care Teams Measurement And Verification Engineer Relationship Specialty Start Date End Date Gadiel Zavala MD [address] [address] PCP - General 06/13/16 Lyudmila Knox, RN Registered Nurse 04/14/17 Jennifer Escalona, LOGAN Registered Nurse 05/10/17 documented as of this encounter
--- OUTSIDE RECORDS SUMMARY | 2024-04-17 11:50 | XMS_ITS | Encounter Summary ---
Author Organization [facility] Address [address] [place] [address] Care Team Providers Care Nfl Player Name Role Phone Gadiel Zavala MD Primary Care Provider [phone] Lyudmila Knox RN Unavailable Unavailable Jennifer Escalona RN Unavailable Agustina vailable Reason for Visit * Reason Comments Hospital Follow Up Encounter Details Date Type Department Care Team (Late st Contact Info) Description 11/17/2021 2:00 PM CDT Office Visit [facility] Cardiology [address] [place] [address] Mylene Lanier, FANNIE [address] [place] [address] Essential hypertension (Primary Dx); Paroxysmal atrial fibrillation (CMS/HCC) (HCC) Social History Tobacco Use Types Packs/Day Years Used Date Smoking Tobacco: Former Cigarettes Q uit: 04/14/1987 Smokeless Tobacco: Never Alcohol Use Standard Drinks/Week Comments Yes 0 (1 standard drink = 0.6 oz pur e alcohol) social Comments No Sex and Gender Information Value Date Recorded Sex Assigned at Not on file Legal Sex Female 3:22 AM SWITCHING OPERATOR Gender Identity Not on file Sexual Orientation Not on file documented as of this encounter Last Filed Vital Signs Vital Sign Reading Time Taken Comments Blood Pressure 112/72 11/17/2021 2:07 PM CDT Pulse 64 11/17/2021 2:07 PM CDT Temperature - - Respiratory Rate - - Oxygen Saturation 97% 11/17/2021 2:07 PM CDT Inhaled Oxygen Concentration - - Weight 51.7 kg (114 lb) 11/17/2021 2:07 PM CDT Height 160 cm (5' 3 ) 11/17/2021 2:07 PM CDT Body Mass Index 20.19 11/17/2021 2:07 PM CDT documented in this encounter Ordered Prescriptions Prescription Sig Dispense Quantity Refills Last Filled Start Date End Date losartan (COZAAR) 25 mg tabletIndications: Essential hypertension Take 1 tablet (25 mg total) by mouth daily 30 tablet 11 11/17/2021 10/21/2022 documented in this encounter Progress Notes * Mylene Lanier, FANNIE - 11/17/2021 2:00 PM CDT [facility] Cardiology [address] [place] [address] Date of Visit: 11/17/2021 Patient ID: Kaitlin Bond [id number] Chief Complaint: Kaitlin Bond is a 71 y.o. female who comes to the office for a hospital follow up for atrial fibrillation History of Present Illness: Kaitlin Bond is a 71 y.o. female with a past medical history of hypertension, hyperlipidemia, recent diagnosis colonic adenocarcinoma, and atrial fibrillation. [facility] [...] of her hospitalization. 11/17/2021 Hospital follow-up with [employer] [facility] - Kaitlin Bond comes to the office [...] has been persistent for about 6 months. Records that I personally reviewed on the day of this visit include: (the interpretation is outlined in the HPI above) Records from the above mentioned hospital admission. I have also reviewed: allergies, current medications, past family history, past medical history, past social history, past surgical history and problem list Review of Systems Constitutional: Negative for fever, malaise/fatigue, night sweats, weight gain and weight loss. HENT: Negative for hearing loss. Eyes: Negative for blurred vision and visual disturbance. Cardiovascular: Negative for chest pain, claudication, dyspnea on exertion, irregular heartbeat, leg swelling, near-syncope, orthopnea, palpitations, paroxysmal nocturnal dyspnea and syncope. Respiratory: Positive for cough. Negative for shortness of breath, sleep disturbances due to breathing, snoring and wheezing. Hematologic/Lymphatic: Negative for bleeding problem. Musculoskeletal: Negative for muscle cramps and muscle weakness. Gastrointestinal: Negative for abdominal pain, change in bowel habit, diarrhea, nausea and vomiting. Genitourinary: Negative for hematuria. Neurological: Negative for dizziness and headaches. Vital Signs: BP 112/72 (BP Location: Left arm, Patient Position: Sitting) Pulse 64 Ht 160 cm (5' 3 ) Wt 51.7 kg (114 lb) SpO2 97% BMI 20.19 kg/m?? Body mass index is 20.19 kg/m??. Physical Exam Vitals reviewed. Constitutional: General: She is not in acute distress. HENT: Head: Normocephalic and atraumatic. Eyes: Conjunctiva/sclera: Conjunctivae normal. Cardiovascular: Rate and Rhythm: Normal rate and regular rhythm. Heart sounds: Normal heart sounds. Pulmonary: Effort: Pulmonary effort is normal. No respiratory distress. Breath sounds: Normal breath sounds. Abdominal: General: Bowel sounds are normal. Palpations: Abdomen is soft. Musculoskeletal: General: Normal range of motion. Cervical back: Normal range of motion and neck supple. Skin: General: Skin is warm and dry. Neurological: Mental Status: She is alert and oriented to person, place, and time. Allergies Allergen Reactions ??? Dye Hives Was getting MRI and developed hives while dye infusion. ??? Adhesive Tape-Silicones Rash Reaction: RASH Current Outpatient Medications: ??? atorvastatin (LIPITOR) 20 mg tablet, Take 20 mg by mouth daily. , Disp: , Rfl: ??? b complex vitamins capsule, Take 3 capsules by mouth daily., Disp: , Rfl: ??? calcium carbonate-vitamin D3 600 mg (1,500 mg)-800 unit tablet,chewable, Take 2 tablets by mouth daily., Disp: , Rfl: ??? celecoxib (CeleBREX) 200 mg capsule, Take 200 mg by mouth daily. , Disp: , Rfl: ??? eszopiclone (LUNESTA) tablet, Take 1 tablet by mouth nightly., Disp: , Rfl: 1 ??? levothyroxine (SYNTHROID, LEVOTHROID) 50 mcg tablet, Take 50 mcg by mouth daily. , Disp: , Rfl: ??? metoprolol XL (TOPROL-XL) 25 mg extended release tablet, , Disp: , Rfl: ??? omeprazole (PriLOSEC) 40 mg capsule, Take 40 mg by mouth daily., Disp: , Rfl: ??? Xarelto 20 mg tablet, TAKE 1 TABLET BY MOUTH ONCE DAILY WITH EVENING MEAL, Disp: , Rfl: ??? amLODIPine (NORVASC) 10 mg tablet, Take 10 mg by mouth daily. (Patient not taking: Reported on 11/17/2021), Disp: , Rfl: ??? buprenorphine HCl (BELBUCA) 150 mcg film, Apply 150 mcg to cheek 2 (two) times a day, Disp: 60 each, Rfl: 0 ??? chlorhexidine (HIBICLENS) 4 % external liquid, Shower with daily for 5 days prior to surgery, especially morning of surgery (Patient taking differently: Apply 1 application topically 2 (two) times a day Shower with daily for 5 days prior to surgery, especially morning of surgery), Disp: 236 mL,Rfl: 0 ??? diazePAM (VALIUM) 10 mg tablet, Take 1 tablet (10 mg total) by mouth once for 1 dose Take one tablet one hour prior to EMG/NCS, Disp: 1 tablet, Rfl: 0 ??? FLUoxetine (PROzac) 20 mg capsule, Take 40 mg by mouth daily. , Disp: , Rfl: ??? losartan (COZAAR) 25 mg tablet, Take 1 tablet (25 mg total) by mouth daily, Disp: 30 tablet, Rfl: 11 ??? mupirocin (BACTROBAN) 2 % nasal ointment, Apply to each nostril twice daily for five (5) days. After application, press sides of nose together and gently massage. (Patient not taking: Reported on11/17/2021), Disp: 22 g, Rfl: 0 ??? naproxen (NAPROSYN,ALEVE) 220 mg tablet, Take 220 mg by mouth every 12 (twelve) hours as neededfor pain., Disp: , Rfl: ??? oxyCODONE-acetaminophen (PERCOCET) 10-325 mg per tablet, Take 1 tablet by mouth every 12 (twelve) hours as needed for pain Earliest Fill Date: 05/10/17. (Patient not taking: Reported on 11/17/2021), Disp: 60 tablet, Rfl: 0 ??? oxyCODONE-acetaminophen (PERCOCET) 10-325 mg per tablet, Take 1 tablet by mouth every 12 (twelve) hours as needed for pain Max 5 tablets/day (Patient not taking: Reported on 11/17/2021), Disp: 60 tablet, Rfl: 0 ??? oxyCODONE-acetaminophen (PERCOCET) 10-325 mg per tablet, Take 1 tablet by mouth every 12 (twelve) hours as needed for pain (Patient not taking: Reported on 11/17/2021), Disp: 46 tablet, Rfl: 0 Lab Results Component Value Date POTASSIUM 4.0 12/09/2013 BUNSER 5 (L) 12/09/2013 CREATININE 0.50 12/09/2013 Assessment: Diagnoses and all orders for this visit: Essential hypertension (Primary) - losartan (COZAAR) 25 mg tablet; Take 1 tablet (25 mg total) by mouth daily Paroxysmal atrial fibrillation (CMS/HCC) (HCC) Remains in sinus rhythm in the office today. Possibly having intermittent atrial fibrillation as she describes having some palpitations. Will continue current medical therapy and systemic anticoagulation for stroke risk reduction. CHADS2 Vasc score 3. Blood pressure at goal. Complaining of persistent dry cough. Will shift her from lisinopril to losartan and see if cough resolves. She should return to the office to see Dr. Perez in 4 months or earlier if clinically indicated. Mylene Lanier ANP- Nurse Practitioner with [facility] Cardiology This note is dictated and transcribed using [employer] Direct Software. Integration Developer variancesmay occur. Despite proofreading, typographical errors may [...] as of this encounter Visit Diagnoses Diagnosis Essential hypertension- Primary Unspecified essential hypertension Paroxysmal atrial fibrillation (CMS/HCC) (HCC) Atrial fibrillation documented in this encounter Discontinued Medications Medication Sig Discontinue Reason Start Date End Da te lisinopril (PRINIVIL,ZESTRIL) 40 mg tablet Take 20 mg by mouth daily. Side effects 02/21/2017 11/17/2021 documented as of this encounter Historical Medications * This list may reflect changes made after this encounter. Xarelto 20 mg tablet TAKE 1 TABLET BY MOUTH ONCE DAILY WITH EVENING MEAL 10/19/2021 03/29/2022 added in this encounter Care Teams Nfl Player Relationship Specialty Start Date End Date Gadiel Zavala MD [address] [place] [address] PCP - General 06/13/16 Lyudmila Knox, RN Registered Nurse 04/14/17 Jennifer Escalona, LOGAN Registered Nurse 05/10/17 documented as of this encounter
--- OUTSIDE RECORDS SUMMARY | 2024-04-17 11:50 | XMS_ITS | Encounter Summary ---
Author Organization [facility] Healthcare Address [address] [place] [address] Care Team Providers Care Machine Setup Operator Name Role Phone Gadiel Zavala MD Primary Care Provider [phone] [phone] Lyudmila Knox RN Unavailable Unavailable Encounter Details Date Type Department Care Team (Latest Contact Info) Description 05/03/2017 7:28 AM SALES AND MARKETING ANALYST - 05/03/2017 11:59 PM SALES AND MARKETING ANALYST Hospital Encounter [facility] Diagnostic Imaging [address] [place] [address] Discharge Disposition: Discharge to home or self care Social History Tobacco Use Types Packs/Day Years Used Date Smoking Tobacco: Former Cigarettes Q uit: 04/14/1987 Smokeless Tobacco: Never Comments Unknown Sex and Gender Information Value Date Recorded Sex Assigned at Not on file Legal Sex Female 3:22 AM SALES AND MARKETING ANALYST Gender Identity Not on file Sexual Orientation [...] 1 VIEW IP Routine 05/03/2017 8:09 AM SALES AND MARKETING ANALYST FL FLUOROSCOPY < 1 HOUR IP Routine 05/03/2017 8:09 AM SALES AND MARKETING ANALYST documented in this encounter Results * XR Spine Thoracic 1 View (05/03/2017 8:09 AM SALES AND MARKETING ANALYST) Narrative RAD_P[facility] - 05/19/2017 1:34 PM SALES AND MARKETING ANALYST The images from this study are not interpreted by Radiology. ??Please refer to the physician's procedure / OR operative note. us Brice Eisenberg MD IMG XR PROCEDURES Fin al Result RAD_PACS_[facility] * FL Fluoroscopy < 1 Hour (05/03/2017 8:09 AM SALES AND MARKETING ANALYST) Narrative RAD_PACS_[facility] - 07/25/2017 1:40 PM CDT The images from this study are not interpreted by Radiology. ??Please refer to the physician's procedure / OR operative note. Brice Eisenberg MD IMG FLUOROSCOPY [place] Final Result RAD_[facility] documented in this encounter Visit Diagnoses Not on filedocumented in this encounter Care Teams Machine Setup Operator Relationship Specialty Start Date End Date Gadiel Zavala MD [address] [address] PCP - General 06/13/16 Lyudmila Knox, RN Registered Nurse 04/14/17 documented as of this encounter
--- OUTSIDE RECORDS SUMMARY | 2024-04-17 11:50 | XMS_ITS | Encounter Summary ---
Author Organization [facility] Healthcare Address [address] [place] [address] Care Team Providers Care Physician Office Nurse Name Role Phone Gadiel Zavala MD Primary Care Provider [phone] Lyudmila Knox RN Unavailable Unavailable Jennifer Escalona RN Unavailable Agustina vailable Reason for Visit * Reason Comments Back Pain Encounter Details Date Type Department Care Team (Late st Contact Info) Description 08/02/2017 11:15 AM CDT Office Visit [facility] [address] [place] [address] [place] [address] [facility] [address] [id number] Radiculopathy, lumbosacral region (Primary Dx); Spondylosis of cervical joint without myelopathy Discharge [...] on file Legal Sex Female 3:22 AM EYEGLASS LENS CUTTER Gender Identity Not on file Sexual Orientation Not on file documented as of this encounter Last Filed Vital Signs Vital Sign Reading Time Taken Comments Blood Pressure 180/92 08/02/2017 11:32 AM CDT Pulse 57 08/02/2017 11:32 AM CDT Temperature 36.8 ??C (98.3 ??F) 08/02/2017 11:32 AM C DT Respiratory Rate 16 08/02/2017 11:32 AM CDT Oxygen Saturation 100% 08/02/2017 11:32 AM CDT Inhaled Oxygen Concentration - - Weight - - Height - - Body Mass Index - - documented in this encounter Discharge Disposition Disposition Code Departure Means Destination Discharge to home or self care documented in this encounter Progress Notes * Lyudmila Knox RN - 08/02/2017 11:15 AM CDT She states that she got good relief after the first 2 weeks. She is getting right shoulder and leftrib cage. * Brice Eisenberg MD - 08/02/2017 11:15 AM CDT Images from the original note were not included. Patient Name: Kaitlin Bond : 1950 Today's Date: 08/02/2017 PCP: Gadiel Zavala MD Referring: No ref. provider found Chief Complaint Patient presents with ??? Back Pain HPI Kaitlin Bond is a 67 y.o. year old female here for a return visit. She presents with low back pain. The pain is constant and described as aching/soreness. It rates 7/10 on the numeric pain scale. Pt had spinal cord stimulator placed and underwent reprogramming of the stimulator 06/28/19. Pt states the stimulator provided good relief of her pain for two weeks, but she then had return of pain. Pt states her current pain is the same as her pain prior to spinal cord stimulator implantation. Patient denies any motor weakness or bowel/bladder issues. Allergies Allergen Reactions ??? [...] D3 600 mg (1,500 mg)-800 unit tablet,chewable eszopiclone (LUNESTA) tablet FLUoxetine (PROzac) 20 mg capsule levothyroxine (SYNTHROID, LEVOTHROID) 50 mcg tablet lisinopril (PRINIVIL,ZESTRIL) 40 mg tablet metoprolol XL (TOPROL-XL) 100 mg 24 hr tablet omeprazole (PriLOSEC) 40 mg capsule oxyCODONE-acetaminophen (PERCOCET) 10-325 mg per tablet celecoxib (CeleBREX) 200 mg capsule chlorhexidine (HIBICLENS) 4 % external liquid mupirocin (BACTROBAN) 2 % nasal ointment naproxen (NAPROSYN,ALEVE) 220 mg tablet Review of Systems Review of Systems [...] reviewed and are negative. Physical Exam Vitals: 08/02/17 1132 BP: (!) 180/92 BP Location: Left arm Patient Position: Sitting Pulse: 57 Resp: 16 Temp: 98.3 ??F (36.8 ??C) TempSrc: Oral SpO2: 100% There is [...] PHQ-9 questionnaires were reviewed with scores of 0 and 6, respectively. Most recent urine toxicology screen was reviewed, along with local prescription drug monitoring program. Assessment Problem List Nervous Radiculopathy, lumbosacral region - Primary Musculoskeletal Spondylosis of cervical joint without myelopathy Patient Active Problem List Diagnosis ??? Cervicalgia ??? Cervical radiculopathy ??? 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 Cervical spinal stenosis ??? Chronic midline low back pain with bilateral sciatica ??? Lumbosacral spondylosis without myelopathy ??? Radiculopathy, lumbosacral region ??? Spinal stenosis of lumbar region without neurogenic claudication ??? Lumbar post-laminectomy syndrome Plan Unfortunately, Melly continues to have low back pain. This is a bit of a complicated presentation overall. For approximately 2 weeks in the postoperative setting she had good pain control but unfortunately is describing pain that has persisted since that 2 week timeframe. She has had a fall but notes that there was some pain prior to several falls recently. This pain is primarily central and I did obtain x-ray images in the office today which I have course reviewed which show that the leads arepotentially a bit more lateral than I would desire and there also appears to be some compression ofthoracic vertebra at T9 or so. This is difficult to determine with our fluoroscopic imaging and I would like to send her to the x-ray department for a more definitive AP and lateral x-ray for evaluation. We did analyzed and reprogrammed her stimulator today trying to cover multiple areas of pain via different measures though seem to have good coverage of her lower extremities as well as laterallyin the flank but nothing or minimal coverage at the low back. I am hopeful that with bur stimulation we will still get some benefit though ultimately she may need these leads revised and placed more midline potentially with paddle lead placement being the best option. Given high impedances we may need to remove leads prior to MRI if needed as well. Finally, all of this is complicated by the fact that she may be moving to [place] and we may need to set up a new network of pain physicians to helpher in that area. For now will obtain x-rays and depending on results plan from there. We will alsohope that with reprogramming and bur stimulation that she gets better coverage of the low back. No Follow-up on file. Mary Pena scribed for Brice Eisenberg in the doctor's presence. I, Omar Eisenberg, have personally performed the services described in the documentation , reviewed the documentation as recorded by the scribe in my presence, and it accurately and completely records my words and actions though there are potential variances in recording and property master. documented in this encounter Plan of Treatment [...] unspecified Spondylosis of cervical joint without myelopathy documented in this encounter Historical Medications * This list may reflect changes made after this encounter. Medication Sig Dispense Quantity Refills Last Filled Start D ate End Date metoprolol XL (TOPROL-XL) 25 mg extended release tablet 07/26/2017 added in this encounter Care Teams Physician Office Nurse Relationship Specialty Start Date End Date Gadiel Zavala MD [address] [address] PCP - General 06/13/16 Lyudmila Knox, RN Registered Nurse 04/14/17 Jennifer Escalona, RN Registered Nurse 05/10/17 documented as of this encounter
--- OUTSIDE RECORDS SUMMARY | 2024-04-17 11:50 | XMS_ITS | Encounter Summary ---
Author Organization [facility] Healthcare Address [address] [place] [address] Care Team Providers Care Roller Gold Leaf Name Role Phone Gadiel Zavala MD Primary Care Provider [phone] [phone] Lyudmila Knox RN Unavailable Unavailable Jennifer Escalona RN Unavailable Agustina vailable Encounter Details Date Type Department Care Team (Latest Contact Info) Description 05/10/2017 11:55 AM SPIKE MACHINE HEATER - 05/10/2017 11:59 PM SPIKE MACHINE HEATER Hospital Encounter [facility] Diagnostic Imaging [address] [place] [address] Back pain Discharge Disposition: Discharge to home or self care Social History Tobacco Use Types Packs/Day Years Used Date Smoking Tobacco: Former Cigarettes Q uit: 04/14/1987 Smokeless Tobacco: Never Comments Unknown Sex and Gender Information Value Date Recorded Sex Assigned at Not on file Legal Sex Female 3:22 AM SPIKE MACHINE HEATER Gender Identity Not on file Sexual Orientation [...] mg total) by mouth daily 03/03/2017 3 celecoxib (CeleBREX) 200 mg capsule Take 200 mg by mouth daily. 04/04/2017 3 chlorhexidine (HIBICLENS) 4 % external liquidIndications: Skin Disinfection Shower with daily for 5 days prior to surgery, especially morning of surgery 236 mL 05/10/[address] (CYMBALTA) 60 mg capsule Take 60 mg by mouth daily. 03/31/2017 8 FLUoxetine (PROzac) 20 mg capsule Take 40 mg by mouth daily. 03/31/2017 3 lisinopril (PRINIVIL,ZESTRIL) 40 mg tablet Take 20 mg by mouth daily. 02/21/2017 2 mupirocin (BACTROBAN) 2 % nasal ointmentIndication s:Methicillin-Resi stant S. Aureus Nasal Colonization Apply to each nostril twice daily for five (5) days. After application, press sides of nose together and gently massage. 22 g 05/10/2017 3 oxyCODONE-acetamin ophen (PERCOCET) 10-325 mg [...] VIEW Schedule Routine, Read Routine (OP Routine) 05/10/2017 11:56 AM SPIKE MACHINE HEATER Back pain FL FLUOROSCOPY < 1 HOUR Schedule Routine, Read Routine (OP Routine) 05/10/2017 11:56 AM SPIKE MACHINE HEATER Back pain documented in this encounter Results * FL Fluoroscopy < 1 Hour (05/10/2017 11:56 AM SPIKE MACHINE HEATER) Narrative RAD_PACS_[facility] - 07/25/2017 1:40 PM CDT The images from this study are not interpreted by Radiology. ??Please refer to the physician's procedure / OR operative note. Brice Eisenberg MD IMG FLUOROSCOPY PROCE DURES Final Result Performing Organization Address [facility] de Phone Number RAD_PACS_[facility] * XR Spine Thoracic 1 View (05/10/2017 11:56 AM SPIKE MACHINE HEATER) Narrative RAD_PACS_[facility] - 05/19/2017 1:34 PM SPIKE MACHINE HEATER The images from this study are not interpreted by Radiology. ??Please refer to the physician's procedure / OR operative note. Brice Eisenberg MD IMG XR PROCEDURES Fin al Result Performing Organization Address [facility] Phone Number RAD_PACS[facility] documented in this encounter Visit Diagnoses Diagnosis Back pain Unspecified backache documented in this encounter Care Teams Roller Gold Leaf Relationship Specialty Start Date End Date Gadiel Zavala MD [address] [address] PCP - General 06/13/16 Lyudmila Knox, RN Registered Nurse 04/14/17 Jennifer Escalona, LOGAN Registered Nurse 05/10/17 documented as of this encounter
--- OUTSIDE RECORDS SUMMARY | 2024-04-17 11:50 | XMS_ITS | Encounter Summary ---
Author Organization [facility] Healthcare Address [address] [place] [address] Care Team Providers Care Detective Private Eye Name Role Phone Gadiel Zavala MD Primary Care Provider [phone] [phone] Lyudmila Knox RN Unavailable Unavailable Jennifer Escalona RN Unavailable Agustina vailable Encounter Details Date Type Department Care Team (Late st Contact Info) Description 06/22/2017 8:55 AM CHIEF RADIOLOGIC TECHNOLOGIST - 06/22/2017 3:20 PM CHIEF RADIOLOGIC TECHNOLOGIST Hospital Encounter [facility] Operating Room [address] [place] [address] [place] [address] [facility] [place] [place] [address] [place] [address] Lumbar post-laminectomy syndrome; Radiculopathy, lumbosacral region; Spinal stenosis of lumbar region without neurogenic claudication; Spondylosis of cervical joint without myelopathy; Chronic midline low back pain with bilateral sciatica; Lumbosacral spondylosis without myelopathy; Cervicalgia; Cervical spinal stenosis; Cervical radiculopathy Discharge Disposition: Discharge to home or self [...] file Legal Sex Female 3:22 AM CHIEF RADIOLOGIC TECHNOLOGIST Gender Identity Not on file Sexual Orientation Not on file documented as of this encounter Last Filed Vital Signs Vital Sign Reading Time Taken Comments Blood Pressure 135/78 06/22/2017 1:45 PM CHIEF RADIOLOGIC TECHNOLOGIST Pulse 92 06/22/2017 1:45 PM CHIEF RADIOLOGIC TECHNOLOGIST Temperature 36.9 ??C (98.4 ??F) 06/22/2017 1:21 PM CS T Respiratory Rate 12 06/22/2017 1:45 PM CHIEF RADIOLOGIC TECHNOLOGIST Oxygen Saturation 98% 06/22/2017 1:45 PM CHIEF RADIOLOGIC TECHNOLOGIST Inhaled Oxygen Concentration - - Weight 55.8 kg (123 lb) 06/22/2017 10:01 AM CHIEF RADIOLOGIC TECHNOLOGIST Height 160 cm (5' 3 ) 06/22/2017 10:01 AM CHIEF RADIOLOGIC TECHNOLOGIST Body Mass Index 21.79 06/22/2017 10:01 AM CHIEF RADIOLOGIC TECHNOLOGIST documented in this encounter Medications at Time [...] Bond : 1950 Today's Date: 06/22/2017 PCP: Gadile Zavala MD Referring: No ref. provider found [...] ABD- WNL EXTR- WNL Post-op Dx: Same F RADIOLOGIC TECHNOLOGIST documented in this encounter Miscellaneous Notes * [...] pain and increased function. SURGEON: Omar Eisenberg WIND TURBINE DESIGN ENGINEER: [facility] ANESTHESIA: Monitored anesthesia care. ESTIMATED [...] under fluoroscopic guidance until it contact the [id number]. After negative aspiration, 1ml of local anesthetic [...] the assistance of the spinal cord stimulator healthcare sales representative, and the patient endors ed coverage of [...] the patient and appropriate site of procedure. F RADIOLOGIC TECHNOLOGIST * Pre-Procedure Instructions - Melly Vazquez RN - 06/21/2017 10:27 AM CHIEF RADIOLOGIC TECHNOLOGIST We are pleased that you and your doctor have chosen [facility] for your surgery. We hope that the [...] mcg tablet ?? Use no make-up, nail [place], lotions, oils or powders on your skin. [...] posted at the top of the page. F RADIOLOGIC TECHNOLOGIST documented in this encounter Plan of Treatment [...] 1 VIEW IP Routine 06/22/2017 12:53 PM CHIEF RADIOLOGIC TECHNOLOGIST FL FLUOROSCOPY < 1 HOUR IP Routine 06/22/2017 12:52 PM CHIEF RADIOLOGIC TECHNOLOGIST INSERTION SPINAL CORD STIMULATOR 06/22/2017 11:48 AM CHIEF RADIOLOGIC TECHNOLOGIST BACK PAIN documented in this encounter Results * XR Spine Thoracic 1 View (06/22/2017 12:53 PM CHIEF RADIOLOGIC TECHNOLOGIST) Anatomical Region Laterality Modality Spine N/A Computed Radiogr aphy Impressions 06/22/2017 12:56 PM CHIEF RADIOLOGIC TECHNOLOGIST Radiographic localization for placement of pain management electrodes Electronically signed by: Myles Ruiz M.D. Narrative 06/22/2017 12:56 PM CHIEF RADIOLOGIC TECHNOLOGIST RESULT: EXAMINATION: XR SPINE THORACIC 1 VIEW [...] Fluoroscopy < 1 Hour (06/22/2017 12:52 PM CHIEF RADIOLOGIC TECHNOLOGIST) Narrative RAD_PACS_[facility] - 07/25/2017 1:40 PM CDT The images from this study are not interpreted by Radiology. ??Please refer to the physician's procedure / OR operative note. 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 Lumbosacral spondylosis without myelopathy Cervicalgia Cervical spinal stenosis Spinal stenosis in cervical region Cervical radiculopathy Brachial neuritis or radiculitis nos documented in this encounter Administered Medications Inactive Administered Medications - up to 3 most recent administrations Medication Order MAR Action Action Date Dose Rate Site bupivacaine (PF) (MARCAINE) 0.5 % in On-Q [...] To be started during procedure., Indications: Postoperative PainIndications:Postoperative Pain New Bag 06/22/2017 1:26 PM CHIEF RADIOLOGIC TECHNOLOGIST 2 mL/hr Lactated Ringer's (LR) infusion - ADS Override Pull Starting on Juany 06/22/17 at 1013, For 1 dose, SHIKHA KAPADIA: cabinet override Lactated Ringer's (LR) infusion 50 mL/hr, intravenous, Continuous, Starting on Juany 06/22/17 at 1100, Pre-Op New Bag 06/22/2017 10:25 AM CHIEF RADIOLOGIC TECHNOLOGIST 1,000 mL 50 mL/hr documented in this encounter Discontinued Medications Medication [...] Recently Administered Medications Times are shown in CHIEF RADIOLOGIC TECHNOLOGIST. Scheduled Medication Order 06/20/2017 06/21/2017 06/22/2017 ceFAZolin [...] Eisenberg MD - Comment: verifed with brenda malik RN) Lactated Ringer's (LR) infusion 50 mL/hr, intravenous, Continuous, Starting on Juany 06/22/17 at 1100, Pre-Op 1025 (New Bag - Prov ider: Shikha Kapadia RN)1312 (Anesthesia Volume Adjustment - Provider: Mandy Mayer CRNA) PRN Medication Order 06/20/2017 06/21/2017 06/22/2017 bacitracin injection (CANCELED) As needed, Starting on Juany 06/22/17 at 1211, Intra-Op, Indications: Staphylococcal Pneumonia 1211 (Given - Provid er: Brice Eisenberg [...] injection (CANCELED) As needed, Starting on Juany 218 at 1211, Intra-Op 1211 (Given - Provid er: Brice Eisenberg MD - Comment: added to 1L of Normal saline) sodium chloride (NS) 0.9 % irrigation (CANCELED) As needed, Starting on Juany 06/22/17 at 1211, Intra-Op 1210 (Given - Provid er: Brice Eisenberg MD - Comment: antibotic irrigation)1211 (Given - Provider: Brice Eisenberg MD) vancomycin (VANCOCIN) solution (CANCELED) As needed, Starting on Juany 18 at 1231, Intra-Op 1231 (Given - Provid er: Brice Eisenberg MD) documented in this encounter Orders Medications Ordered That Noel ht Not Have Been Administered Count Last Ordered Date First Ordered Date bacitracin injection 06/22/2017 bupivacaine (PF) (MARCAINE) 0.5 % in On-Q reservoir 270 mL 06/22/2017 ceFAZolin (ANCEF) IV syringe (100 mg/mL in SW) - ADS Override Pull 06/22/2017 ceFAZolin (ANCEF) IV syringe (100 mg/mL in SW) 1,000 mg 06/22/2017 lidocaine-EPINEPHrine (XYLOC BROWN with EPI) 1 %-1:100,000 injection 06/22/2017 neomycin-polymyxin B (JOE SPORIN-) 40 mg-200,000 unit/mL irrigation 1 06/22/2017 polymyxin B injection 1 06/22/2017 scopolamine 1 mg over 3 days patch 72 hour - ADS Override Pull 1 06/22/2017 sodium chloride (NS) 0.9 % irrigation 1 vancomycin (VANCOCIN) solution 1 06/22/2017 Diet Count Last Ordered Date First Orde red Date ADULT DISCHARGE DIET 1 06/22/2017 Nursing Count Last Ordered Date First Orde red Date DISCHARGE ACTIVITY 1 06/22/2017 DISCHARGE CALL PROVIDER 6 06/22/2017 DISCHARGE DRESSING 1 06/22/2017 Discharge Count Last Ordered Date First Orde red Date DISCHARGE PATIENT 1 06/22/2017 documented in this encounter Care Teams Detective Private Eye Relationship Specialty Start Date End Date Gadiel Zavala MD [address] [address] PCP - General 06/13/16 Lyudmila Knox, RN Registered Nurse 04/14/17 Jennifer Escalona, RN Registered Nurse 05/10/17 documented as of this encounter
--- OUTSIDE RECORDS SUMMARY | 2024-04-17 11:50 | XMS_ITS | Encounter Summary ---
Author Organization [facility] Healthcare Address [address] [place] [address] Care Team Providers Care Brand Manager Name Role Phone Gadiel Zavaal MD Primary Care Provider [phone] Lyudmila Knox RN Unavailable Unavailable Jennifer Escalona RN Unavailable Agustina vailable Encounter Details Date Type Department Care Team (Late st Contact Info) Description 10/17/2017 [facility] Only [facility] [id number] [place] [id number] Whitney Gaona RN Social History Tobacco Use Types Packs/Day Years Used Date Smoking Tobacco: Former Cigarettes Q uit: 04/14/1987 Smokeless Tobacco: Never Alcohol Use Standard Drinks/Week Comments Yes 0 (1 standard drink = 0.6 oz pur e alcohol) social Comments No Sex and Gender Information Value Date Recorded Sex Assigned at Not on file Legal Sex Female 3:22 AM HAND KISS SETTER Gender Identity Not on file Sexual Orientation [...] on filedocumented in this encounter Care Teams Brand Manager Relationship Specialty Start Date End Date Gadiel Zavala MD [address] [address] PCP - General 06/13/16 Lyudmila Knox, RN Registered Nurse 04/14/17 Jennifer Escalona, RN Registered Nurse 05/10/17 documented as of this encounter
--- OUTSIDE RECORDS SUMMARY | 2024-04-17 11:51 | XMS_ITS | Encounter Summary ---
Author Organization [facility] Healthcare Address [address] [place] [address] [address] Team Prov[address] Care [address] Monkey Name Role Phone Gadiel Zavala MD Primary Care Provider [phone] Encounter Details Date Type Department Care Team (Late st Contact Info) Description 08/23/2016 12:09 PM CDT - 08/23/2016 11:59 PM T Hospital Encounter [facility] [phone] Joe Fuentes MD [facility] [address] [place] [address] Discharge Disposition: Discharge to home or self care Social History Tobacco Use Types Packs/Day Years Used Date Smoking Tobacco: Never Assessed Comments Unknown Sex and Gender Information Value Date Recorded Sex Assigned at Not on file Legal Sex Female 3:22 AM PROGRAM MANAGEMENT SPECIALIST Gender Identity Not on file Sexual Orientation Not on file documented as of this encounter Discharge Disposition Disposition Code Departure Means Destination Discharge to home or self care documented in this encounter Plan of Treatment Not on file documented as of this encounter Visit Diagnoses Not on filedocumented in this encounter Care Teams Road Monkey Relationship Specialty Start Date End Date Gadiel Zavala MD [address] [address] PCP - General 06/13/16 documented as of this encounter
--- OUTSIDE RECORDS SUMMARY | 2024-04-17 11:51 | XMS_ITS | Encounter Summary ---
Author Organization [facility] Healthcare Address [address] [place] [address] Care Team Providers Care Tufting Machine Operator Single Needle Name Role Phone Gadiel Zavala MD Primary Care Provider +1 [phone] Encounter Details Date Type Department Care Team (Latest Contact Info) Description 07/07/2016 10:04 AM SOFTWARE PACKAGING ENGINEER - 07/07/2016 11:59 PM [facility] Hospital Encounter [facility] [phone] Tae Duran MD [address] [phone] [place] [address] Discharge Disposition: Discharge to home or self care Social History Tobacco Use Types Packs/Day Years Used Date Smoking Tobacco: Never Assessed Comments Unknown Sex and Gender Information Value Date Recorded Sex Assigned at Not on file Legal Sex Female 3:22 AM SOFTWARE PACKAGING ENGINEER Gender Identity Not on file Sexual Orientation Not on file documented as of this encounter Discharge Disposition Disposition Code Departure Means Destination Discharge to home or self care documented in this encounter Plan of Treatment Not on file documented as of this encounter Visit Diagnoses Not on filedocumented in this encounter Care Teams Tufting Machine Operator Single Needle Relationship Specialty Start Date End Date Gadiel Zavala MD [address] [address] PCP - General 06/13/16 documented as of this encounter
--- OUTSIDE RECORDS SUMMARY | 2024-04-17 11:51 | XMS_ITS | Encounter Summary ---
Author Organization [facility] Healthcare Address [address] [place] [address] Care Team Providers Care Geography Professor Name Role Phone Gadiel Zavala MD Primary Care Provider +1 [phone] Encounter Details Date Type Department Care Team (Latest Contact Info) Description 07/26/2016 12:48 PM CDT - 07/26/2016 11:59 PM T Hospital Encounter [facility] OP INTERIM [phone] Tae Duran MD [address] [phone] [place] [address] Discharge Disposition: Discharge to home or self care Social History Tobacco Use Types Packs/Day Years Used Date Smoking Tobacco: Never Assessed Comments Unknown Sex and Gender Information Value Date Recorded Sex Assigned at Not on file Legal Sex Female 3:22 AM WORKING FOREMAN Gender Identity Not on file Sexual Orientation Not on file documented as of this encounter Discharge Disposition Disposition Code Departure Means Destination Discharge to home or self care documented in this encounter Plan of Treatment Not on file documented as of this encounter Visit Diagnoses Not on filedocumented in this encounter Care Teams Geography Professor Relationship Specialty Start Date End Date Gadiel Zavala MD [address] [address] PCP - General 06/13/16 documented as of this encounter
--- OUTSIDE RECORDS SUMMARY | 2024-04-17 11:51 | XMS_ITS | Encounter Summary ---
Author Organization [facility] Healthcare Address [address] [place] [address] Care Team Providers Care Correctional Supply Supervisor Name Role Phone Gadiel Zavala MD Primary Care Provider [phone] [phone] Lyudmila Knox RN Unavailable Unavailable Reason for Visit * Reason Comments Follow-up wants to get SCS tri al done Back Pain right low back into the right hip/buttocks Encounter Details Date Type Department Care Team (Late st Contact Info) Description 04/14/2017 10:45 AM CHAIN SAW OPERATOR Office Visit [facility] [address] [place] [address] [place] [address] [facility] [address] [place] [id number] Cervicalgia (Primary Dx); Cervical radiculopathy; Chronic midline low back pain with bilateral sciatica; Radiculopathy, lumbosacral region; Spondylosis of cervical joint without myelopathy; Lumbosacral spondylosis without myelopathy; Cervical spinal stenosis; Spinal stenosis of lumbar region without neurogenic claudication; Postlaminectomy syndrome, lumbar Discharge Disposition: Discharge to home or self care Social History Tobacco Use Types Packs/Day Years Used Date Smoking Tobacco: Former Cigarettes Q uit: 04/14/1987 Smokeless Tobacco: Never Comments Unknown Sex and Gender Information Value Date Recorded Sex Assigned at Not on file Legal Sex Female 3:22 AM CHAIN SAW OPERATOR Gender Identity Not on file Sexual Orientation Not on file documented as of this encounter Last Filed Vital Signs Vital Sign Reading Time Taken Comments Blood Pressure 152/100 04/14/2017 11:10 AM CHAIN SAW OPERATOR Pulse 80 04/14/2017 11:10 AM CHAIN SAW OPERATOR Temperature 36.6 ??C (97.9 ??F) 04/14/2017 11:[address] Respiratory Rate 16 04/14/2017 11:10 AM CHAIN SAW OPERATOR Oxygen Saturation 100% 04/14/2017 11:10 AM CHAIN SAW OPERATOR Inhaled Oxygen Concentration - - Weight - - Height - - Body Mass Index - - documented in this encounter Patient Instructions * Patient Instructions* Lyudmila Knox RN - 04/14/2017 10:45 AM CHAIN SAW OPERATOR SCS TRIAL INFO The trial lasts 7 days. During this time you will not be able to get your back wet and will need tosponge bathe. The device will not be implanted at this time, it will be placed in a pack and taped to your back. It is important to avoid bending, lifting, twisting during this week long trial so that the leads do not move. What to expect: Please arrive 30 minutes prior to trial, you will be asked to change into a gown, acap will be placed on your head and an IV will be started in order to receive the medications. Onceyou enter the procedure room, you will be asked to lay on your stomach on pillows. You will be hooked up to machines that will continuously monitor your vital signs. You will be given an antibiotic called Ancef through your IV prior to the start of the procedure. You will then start receiving sedation. Dr. Eisenberg will use local anesthetic to numb the skin and then insert a needle. The leads for the stimulator will run through the needle and up the intrathecal space in your spine. Then the leads will be hooked to a generator and turned on, which will cause tingling. You will tell the auto service representative where you feel the tingling and if it is where your usual pain is. After the leads are in the correct place, Dr. Eisenberg will use two small stitches to keep them in place. Then a dressing will be applied and the battery will be taped to your back. At this point you will move to a new bed and be tr ansferred to the post op area where the rep. will teach you about the programming and how to use the stimulator. We will continue to monitor your vitals. Plan to be here for approximately 3 hours andhave a responsible hazmat tanker driver to stay with you. You will receive conscious sedation during your trial. This means that you will be awake, but wont care much. You need to be awake so that a auto service representative from the company can talk to you and make sure that you feel paraesthesia/tingling in all of the areas where you have pain. This is your time to be specific and picky in order to make sure all of your areas of pain are covered. Also, because of the sedation it is important that you have nothing to eat or drink after midnight the night prior to your procedure. It is okay to take your medicines in the morning with a small sip of water. The procedure cannot be performed if: you are on antibiotics or are sick, if you have not stopped your blood thinner, had anything to eat/drink within the last 8 hours, do not have a responsible hazmat tanker driver to stay with you. You will follow up one week later to determine if the trial is a success. However, during the week you will talk to a rep. Multiple times throughout the week and they will excellence coach you through adjustments or anything you may need. As always, please call us if you have any questions after reading your pamphlet [phone] N SAW OPERATOR documented in this encounter Discharge Disposition Disposition Code Departure Means Destination Discharge to home or self care documented in this encounter Progress Notes * Brice Eisenberg MD - 04/14/2017 10:45 AM CST Patient Name: Kaitlin Bond : [...] there are potential variances in recording and aviation program manager. N SAW OPERATOR documented in this encounter Plan of [...] region without neurogenic claudication Postlaminectomy syndrome, lumbar Postlaminectomy syndrome, lumbar region documented in this encounter Historical Medications * This list may reflect changes made after this encounter. levothyroxine (SYNTHROID, LEVOTHROID) 50 mcg tablet Take 1 tablet (50 mcg total) by mouth daily 03/31/2017 atorvastatin (LIPITOR) 20 mg tablet Take 1 tablet (20 mg total) by mouth daily 03/31/2017 FLUoxetine (PROzac) 20 mg capsule Take 40 mg by mouth daily. 03/31/2017 06/22/2022 lisinopril (PRINIVIL,ZESTRIL ) 40 mg tablet Take 20 mg by mouth daily. 02/21/2017 11/17/[address] (CYMBALTA) 60 mg capsule Take 60 mg by mouth daily. 03/31/2017 06/21/2017 celecoxib (CeleBREX) 200 mg capsule Take 200 mg by mouth daily. 04/04/2017 06/22/2022 amLODIPine (NORVASC) 10 mg tablet Take 1 tablet (10 mg total) by mouth daily 03/03/2017 10/07/2022 added in this encounter Care Teams Correctional Supply Supervisor Relationship Specialty Start Date End Date Gadiel Zavala MD [address] [address] PCP - General 06/13/16 Lyudmila Knox, RN Registered Nurse 04/14/17 documented as of this encounter
--- OUTSIDE RECORDS SUMMARY | 2024-04-17 11:51 | XMS_ITS | Encounter Summary ---
Author Organization [facility] Healthcare Address [address] [place] [address] Care Team Providers Care China Decorator Name Role Phone Gadiel Zavala MD Primary Care Provider [phone] [phone] Encounter Details Date Type Department Care Team (Late st Contact Info) Description 06/13/2016 8:25 AM CLINICAL EDUCATION ASSISTANT - 06/13/2016 11:59 PM CLINICAL EDUCATION ASSISTANT Emergency [facility] Emergency Department [address] [place] [id number] Discharge Disposition: Discharge to home or self care Social History Tobacco Use Types Packs/Day Years Used Date Smoking Tobacco: Never Assessed Comments Unknown Sex and Gender Information Value Date Recorded Sex Assigned at Not on file Legal Sex Female 3:22 AM CLINICAL EDUCATION ASSISTANT Gender Identity Not on file Sexual Orientation Not on file documented as of this encounter Discharge Disposition Disposition Code Departure Means Destination Discharge to home or self care documented in this encounter Plan of Treatment Not on file documented as of this encounter Visit Diagnoses Not on filedocumented in this encounter Care Teams China Decorator Relationship Specialty Start Date End Date Gadiel Zavala MD [address] [address] PCP - General 06/13/16 documented as of this encounter
--- OUTSIDE RECORDS SUMMARY | 2024-04-17 11:51 | XMS_ITS | Encounter Summary ---
Author Organization [facility] Healthcare Address [address] [place] [address] Care Team Providers Care Cricket Coach Name Role Phone Gadiel Zavala MD Primary Care Provider [phone] [phone] Lyudmila Knox RN Unavailable Unavailable Encounter Details Date Type Department Care Team (Late st Contact Info) Description 05/03/2017 6:41 AM GRUBBER - 05/03/2017 9:01 AM GRUBBER Hospital Encounter [facility] [address] [place] [address] [place] [address] [facility] [address] [place] [address] Discharge Disposition: Discharge to home or self care Social History Tobacco Use Types Packs/Day Years Used Date Smoking Tobacco: Former Cigarettes Q uit: 04/14/1987 Smokeless Tobacco: Never Comments Unknown Sex and Gender Information Value Date Recorded Sex Assigned at Not on file Legal Sex Female 3:22 AM GRUBBER Gender Identity Not on file Sexual Orientation Not on file documented as of this encounter Last Filed Vital Signs Vital Sign Reading Time Taken Comments Blood Pressure 152/92 05/03/2017 8:37 AM GRUBBER Pulse 88 05/03/2017 8:37 AM GRUBBER Temperature 36.5 ??C (97.7 ??F) 05/03/2017 7:05 AM CS T Respiratory Rate 16 05/03/2017 8:37 AM GRUBBER Oxygen Saturation 100% 05/03/2017 8:37 AM GRUBBER Inhaled Oxygen Concentration - - Weight 57.2 kg (126 lb) 05/03/2017 7:05 AM GRUBBER Height 160 cm (5' 3 ) 05/03/2017 7:05 AM GRUBBER Body Mass Index 22.32 05/03/2017 7:05 AM GRUBBER documented in this encounter Discharge Instructions * Discharge Instructions* Whitney Gaona RN - 05/03/2017 8:34 AM GRUBBER Post-Procedure Instructions for Spinal Cord Stimulator Trial [...] immediately with any of these symptoms at [phone]. After hourscontact the [facility] Stewarding Supervisor at [phone] and she will reach your physician for you. Do not try and pull off tape, just reinforce if it start to peel up. In case of an emergency call 911 BER documented in this encounter Medications at Time [...] on the above findings, I consider Kaitlin Helton to be an acceptable risk for : .Procedure(s): Neurostimulator Implant Electrode 1 Per Lead [address]. Brice Eisenberg MD. Date: 05/03/2017 Time: 7:34 AM BER Source Note - Brice Eisenberg MD - 04/14/2017 10:45 AM GRUBBER Patient Name: Kaitlin Bond : 1950 Today's [...] there are potential variances in recording and women's ministry director. BER documented in this encounter Miscellaneous Notes * [...] under fluoroscopic guidance until it contact the [id number]. After negative aspiration, 1ml of local anesthetic [...] the assistance of the spinal cord stimulator scheduling representative, and the patient endorsed coverage of [...] recovery area and post-operative instructions were reviewed. BER documented in this encounter Plan of Treatment [...] 1 VIEW IP Routine 05/03/2017 8:09 AM GRUBBER FL FLUOROSCOPY < 1 HOUR IP Routine 05/03/19 18 8:09 AM GRUBBER NEUROSTIMULATOR IMPLANT ELECTRODE 1 PER LEAD [id number] 05/03/2017 7:35 AM GRUBBER LOW BACK PAIN documented in this encounter Results * XR Spine Thoracic 1 View (05/03/2017 8:09 AM GRUBBER) Narrative [facility] - 05/19/2017 1:34 PM GRUBBER The images from this study are not interpreted by Radiology. ??Please refer to the physician's procedure / OR operative note. Brice Eisenberg MD IMG XR PROCEDURES Fin al Result Performing Organization Address [facility]/ZIP Co de Phone Number [facility] * FL Fluoroscopy < 1 Hour (05/03/2017 8:09 AM GRUBBER) Narrative [facility] - 07/25/2017 1:40 PM CDT The images from this study are not interpreted by Radiology. ??Please refer to the physician's procedure / OR operative note. Brice Eisenberg MD IMG FLUOROSCOPY PROCE DURES Final Result Performing Organization Address [facility]/ZIP Co de Phone Number [facility] documented in this encounter Visit Diagnoses Not on filedocumented in this encounter Active and Recently Administered Medications Times are shown in GRUBBER. PRN Medication Order 05/01/2017 05/02/2017 05/03/2017 ceFAZolin in 0.9% sod chloride 1 gram/10 mL syringe (CANCELED) As needed, Starting on Mon05/03/17 at 0741, Intra-Op 0740 (Given - Provid er: Whitney Gaona, LOGAN) fentaNYL (SUBLIMAZE) preservative free syringe (CANCELED) As [...] Whitney Gaona RN) documented in this encounter Orders Medications Ordered That Noel ht Not Have Been Administered Count Last Ordered Date First Ordered Date ceFAZolin in 0.9% sod chlori de 1 gram/10 mL syringe 1 05/03/2017 fentaNYL (SUBLIMAZE) preserv ative free syringe 1 05/03/2017 lidocaine-EPINEPHrine (XYLOC BROWN with EPI) 2 %-1:200,000 preservative free injection 1 05/03/2017 midazolam (VERSED) preservat charo free injection 1 05/03/2017 documented in this encounter Care Teams Cricket Coach Relationship Specialty Start Date End Date Gadiel Zavala MD [address] [address] PCP - General 06/13/16 Lyudmila Knox, RN Registered Nurse 04/14/17 documented as of this encounter
--- OUTSIDE RECORDS SUMMARY | 2024-04-17 11:51 | XMS_ITS | Encounter Summary ---
Author Organization [facility] Healthcare Address [address] [place] [address] Care Team Providers Care Crook Operator Name Role Phone Gadiel Zavala MD Primary Care Provider [phone] [phone] Encounter Details Date Type Department Care Team (Late st Contact Info) Description 01/10/2017 1:30 PM CDT - 01/10/2017 11:59 PM CDT Hospital Encounter [place] [address] [facility] [address] [place] [address] Discharge Disposition: Discharge to home or self care Social History Tobacco Use Types Packs/Day Years Used Date Smoking Tobacco: Never Assessed Comments Unknown Sex and Gender Information Value Date Recorded Sex Assigned at Not on file Legal Sex Female 3:22 AM CONTROLS OPERATOR MOLDED GOODS Gender Identity Not on file Sexual Orientation Not on file documented as of this encounter Discharge Disposition Disposition Code Departure Means Destination Discharge to home or self care documented in this encounter Plan of Treatment Not on file documented as of this encounter Visit Diagnoses Not on filedocumented in this encounter Care Teams Crook Operator Relationship Specialty Start Date End Date Gadiel Zavala MD [address] [address] PCP - General 06/13/16 documented as of this encounter
--- OUTSIDE RECORDS SUMMARY | 2024-04-17 11:51 | XMS_ITS | Encounter Summary ---
Author Organization [facility] Healthcare Address [address] [place] [address] Care Team Providers Care World Travel Counselor Name Role Phone Gadiel Zavala MD Primary Care Provider [phone] [phone] Encounter Details Date Type Department Care Team (Late st Contact Info) Description 01/31/2017 12:31 PM CDT - 01/31/2017 11:59 PM CDT Hospital Encounter [place] [address] [facility] [address] [place] [address] Discharge Disposition: Discharge to home or self care Social History Tobacco Use Types Packs/Day Years Used Date Smoking Tobacco: Never Assessed Comments Unknown Sex and Gender Information Value Date Recorded Sex Assigned at Not on file Legal Sex Female 3:22 AM CHARGING MANIPULATOR Gender Identity Not on file Sexual Orientation Not on file documented as of this encounter Discharge Disposition Disposition Code Departure Means Destination Discharge to home or self care documented in this encounter Plan of Treatment Not on file documented as of this encounter Visit Diagnoses Not on filedocumented in this encounter Care Teams World Travel Counselor Relationship Specialty Start Date End Date Gadiel Zavala MD [address] [address] PCP - General 06/13/16 documented as of this encounter
--- OUTSIDE RECORDS SUMMARY | 2024-04-17 11:51 | XMS_ITS | Encounter Summary ---
Author Organization [facility] Healthcare Address [address] [place] [address] Care Team Providers Care Bulkhead Carpenter Name Role Phone Gadiel Zavala MD Primary Care Provider [phone] [phone] Encounter Details Date Type Department Care Team (Late st Contact Info) Description 12/13/2016 2:45 PM CDT - 12/13/2016 11:59 PM CDT Hospital Encounter [place] [address] [facility] [address] [place] [address] Discharge Disposition: Discharge to home or self care Social History Tobacco Use Types Packs/Day Years Used Date Smoking Tobacco: Never Assessed Comments Unknown Sex and Gender Information Value Date Recorded Sex Assigned at Not on file Legal Sex Female 3:22 AM SALES TRAINING COORDINATOR Gender Identity Not on file Sexual Orientation Not on file documented as of this encounter Discharge Disposition Disposition Code Departure Means Destination Discharge to home or self care documented in this encounter Plan of Treatment Not on file documented as of this encounter Visit Diagnoses Not on filedocumented in this encounter Care Teams Bulkhead Carpenter Relationship Specialty Start Date End Date Gadiel Zavala MD [address] [address] PCP - General 06/13/16 documented as of this encounter
--- OUTSIDE RECORDS SUMMARY | 2024-04-17 11:52 | XMS_ITS | Encounter Summary ---
Author Organization [facility] Care Team Providers Care Pleat Taper Name Role Phone Unavailable Primary Care Provider Unavailabl e Encounter Details Date Type Department Care Team (Latest Contact Info) Description 11/06/2013 10:28 AM CDT - 11/06/2013 11:59 PM CDT Hospital Encounter [facility] Kristopher Garza MD [address] [facility] [address] [place] [address] Degeneration of lumbar or lumbosacral intervertebral disc; Congenital spondylolisthesis Social History Tobacco Use Types Packs/Day Years Used Date Smoking Tobacco: Never Assessed Comments Unknown Sex and Gender Information Value Date Recorded Sex Assigned at Not on file Legal Sex Female 3:22 AM REGIONAL GEODETIC ADVISOR Gender Identity Not on file Sexual Orientation Not on file documented as of this encounter Plan of Treatment Not on file documented as of this encounter Procedures Procedure Name Priority Date/Time Associated Diagnosis Comments BLOOD ERYTHROCYTE SEDIMENTATION RATE (ESR) Routine 11/06/2013 11:55 AM CDT PLASMA BASIC METABOLIC PANEL Routine 11/06/2013 11:53 AM CDT BLOOD CELL COUNT (CBC), MORPHOLOGIC EXAM Routine 11/06/2013 11:53 AM CDT URINALYSIS Routine 11/06/2013 11:53 AM CDT BLOOD ABO, RH, INDIRECT AB SCREEN Routine 11/06/2013 6:53 AM CDT DISCHARGE LABORATORY CUMULATIVE REPORT 11/06/2013 documented in this encounter Results * Blood erythrocyte sedimentation rate (ESR) (11/06/2013 11:55 AM CDT) Erythrocyte sedimentation rate 10.0 0.0 - 20.0 mm/hr HISTORICAL RESULTS Blood specimen (specimen) 11/06/2013 11:55 AM CDT Kristopher Garza MD LAB BLOOD ORDERABLES Jesi l Result Performing Organization Address [facility] de Phone Number HISTORICAL RESULTS * (ABNORMAL) Urinalysis (11/06/2013 11:53 AM CDT) Color, ur Colorless(A) LightYellow, Yellow HISTORICAL RESULTS Clarity, ur Clear Clear HISTORIC AL RESULTS Specific gravity, ur 1.005 1.005 - 1.030 HISTORICAL RESULTS pH, ur 7.5 5.0 - 8.0 HISTORICAL RESULTS Leukocyte esterase, ur Negative Negative nayeli/mcl HISTORICAL RESULTS Nitrites, ur Negative Negative HISTORI IAN RESULTS Protein, ur Negative Negative mg/dl HISTORICAL RESULTS Glucose, ur, quant Normal Normal mg/dl HISTORICAL RESULTS Ketones, ur, quant Negative Negative mg/dl HISTORICAL RESULTS Urobilinogen, quant, ur Normal Normal mg/dl HISTORICAL RESULTS Bilirubin, ur Negative Negative mg/dl HISTORICAL RESULTS U Blood Negative Negative HISTORICAL RESULTS Urine 11/06/2013 11:5 3 AM CDT Kristopher Garza MD LAB BLOOD ORDERABLES Jesi l Result Performing Organization Address [facility] Co de Phone Number HISTORICAL RESULTS * (ABNORMAL) Blood cell count (CBC), morphologic exam (11/06/2013 11:53 AM CDT) WBC 6.9 4.5 - 11.0 K/cumm HISTORICAL RESULTS RBC 3.95 3.80 - 5.40 M/cumm HISTORICAL RESULTS Hgb 12.8 11.5 - 16.0 g/dl HISTORICAL RESULTS Hct 38.5 34.0 - 48.0 % HISTORICAL RESULTS MCV 97.4 80.0 - 100.0 fl HISTORICAL RESULTS MCH 32.3 27.0 - 33.0 pg HISTORICAL RESULTS MCHC 33.2 32.0 - 36.0 g/dl HISTORICAL RESULTS Rdw 13.4 11.5 - 14.5 % HISTORICAL RESULTS Platelets 316 140 - 400 K/cumm HISTORICAL RESULTS MPV 7.7 7.4 - 10.4 fl HISTORICAL RESULTS Neutrophils 75.6(H) 42.0 - 75.0 % HISTORICAL RESULTS Lymphocytes 18.6(L) 21.0 - 51.0 % HISTORICAL RESULTS Monos 5.2 2.0 - 9.0 % HISTORICAL RESULTS Eosinophils 0.4 0.0 - 10.0 % HISTORICAL RESULTS Basophils 0.2 0.0 - 1.0 % HISTORICAL RESULTS Neutrophils, abs 5.2 1.8 - 7.7 K/cumm HISTORICAL RESULTS Lymphocytes, abs 1.3 1.0 - 4.8 K/cumm HISTORICAL RESULTS Monocytes, absolute 0.4 0.0 - 0.8 K/cumm HISTORICAL RESULTS Eosinophils, abs 0.0 0.0 - 0.5 K/cumm HISTORICAL RESULTS Basophils, abs 0.0 0.0 - 0.2 K/cumm HISTORICAL RESULTS Blood specimen (specimen) 11/06/2013 11:53 AM CDT Kristopher Garza MD LAB BLOOD ORDERABLES Jesi gallardo Result HISTORICAL RESULTS * (ABNORMAL) Plasma basic metabolic panel (11/06/2013 11:53 AM CDT) Sodium 130(L) 136 - 146 mmol/L HISTORICAL RESULTS K, pl 4.5 3.3 - 4.9 mmol/L HISTORICAL RESULTS Chloride 94(L) 98 - 108 mmol/L HISTORICAL RESULTS CO2 28 22 - 33 mmol/L HISTORICAL RESULTS BUN 8 7 - 18 mg/dl HISTORICAL RESULTS Glucose 84 70 - 140 mg/dl HISTORICAL RESULTS Comment: Glucose is assumed to be non-fasting. ?? Fasting Glucose normal ranges are: 0 days - 2 months: ? 40 mg/dL - 100 mg/dL 2 months - 999 years: ?70 mg/dL - 99 mg/dL Creatinine 0.45(L) 0.50 - 1.50 mg/dl HISTORICAL RESULTS eGFR >60 ml/min/1.7 3 m2 HISTORICAL RESULTS Comment: GFR Reference Range: = > 60 mL/min/1.73 m2 This result has been calculated assuming the patient is Non-. ??If the patient is , please multiply this result by 1.21. The GFR value is not recommended for medication dose adjustment for renal function, creatinine clearance values should be used. Calcium 9.2 8.5 - 10.5 mg/dl HISTORICAL RESULTS Plasma 11/06/2013 11:5 3 AM CDT Kristopher Garza MD LAB BLOOD ORDERABLES Jesi l Result HISTORICAL RESULTS * Blood ABO, Rh, indirect ab screen (11/06/2013 6:53 AM CDT) ABO typing A HISTORICA L RESULTS Rho(D) typing Positive HISTOR ICAL RESULTS Zoraida, indirect Negative HISTORICAL RESULTS Blood specimen (specimen) 11/06/2013 6:53 AM CDT Narrative HISTORICAL RESULTS - 11/06/2013 9:28 AM CDT 12/02/13 NO TRANS NOT PREG Kristopher Garza MD LAB BLOOD ORDERABLES Jesi l Result HISTORICAL RESULTS * DISCHARGE LABORATORY CUMULATIVE REPORT (11/06/2013) Narrative 11/06/2013 Ordered by an unspecified provider. 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
--- OUTSIDE RECORDS SUMMARY | 2024-04-17 11:52 | XMS_ITS | Encounter Summary ---
Author Organization [facility] Care Team Providers Care Ripper Operator Name Role Phone Unavailable Primary Care Provider Unavailabl e Encounter Details Date Type Department Care Team (Late st Contact Info) Description 02/04/2014 1:02 PM CDT - 02/04/2014 11:59 PM CDT Hospital Encounter [facility] Jack Garza MD [address] [facility] [address] [place] [address] Arthrodesis status Social History Tobacco Use Types Packs/Day Years Used Date Smoking Tobacco: Never Assessed Comments Unknown Sex and Gender Information Value Date Recorded Sex Assigned at Not on file Legal 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 FINDINGS: Three views of the lumbar spine are compared to previous study 01/08/2014. There are bilateral transpedicle screws and john fixation spanning the L3 through S1 level with laminectomy defect at L4. ??Interbody disc spacers with radiopaque corner markers are identified at L3-L4, L4-L5 and L5-S1. ??Postoperative changes are stable. ??There is spondylolisthesis of L5 on S1, stable. SUMMARY: 1. ??Stable postoperative changes and vertebral body alignment. LP:llc Radiologist: BETH KELLER M.D. ?? Attending: ??JACK GARZA MD Requesting: JACK GARZA MD Requesting Fax: ?? Requesting ID: [id number] Attending Fax: ?? Attending ID: ?? [id number] Completed Time: ?? 02/04/2014 1:24 PM Dictated Time: ?02/04/2014 2:02 PM Transcribed Time: 02/04/2014 5:42 PM Signed by: ?BETH KELLER ??Ady on 02/04/2014 5:48 PM Report To 1 ID: Report To 1 Name: , Report To 1 FAX: Report To 2 ID: Report To 2 Name: , Report To 2 FAX: Report To 3 ID: Report To 3 Name: , Report To 3 FAX: NextGen Order #: Procedure Note Provider, MD Darwin - 08/25/2016 Three-view lumbar spine radiograph 02/04/2014 HISTORY: Status post fusion. FINDINGS: Three views of the lumbar spine are compared to previous study 01/08/2014. There are bilateral transpedicle screws and john fixation spanning the L3 through S1 level with laminectomy defect at L4. Interbody disc spacers with radiopaque corner markers are identified at L3-L4, L4-L5 and L5-S1. Postoperative changes are stable. There is spondylolisthesis of L5 on S1, stable. SUMMARY: 1. Stable postoperative changes and vertebral body alignment. LP:llc Radiologist: BETH KELLER M.D. Attending: JACK GARZA MD Requesting: JACK GARZA MD Requesting Requesting ID: [id number] Attending Attending ID: [id number] Completed Time: 02/04/2014 1:24 PM Dictated Time: 02/04/2014 2:02 PM Transcribed Time: 02/04/2014 5:42 PM Signed by: BETH KELLER M.D. on 02/04/2014 5:48 PM Report To 1 ID: Report To 1 Name: , Report To 1 FAX: Report To 2 ID: Report To 2 Name: , Report To 2 FAX: Report To 3 ID: Report To 3 Name: , Report To 3 FAX: NextGen Order #: us Historical Provider MD SHAY XR PROCEDURES Final R esult documented in this encounter Visit Diagnoses Diagnosis Arthrodesis status documented in this encounter
--- OUTSIDE RECORDS SUMMARY | 2024-04-17 11:52 | XMS_ITS | Encounter Summary ---
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 - 06/10/2013 11:23 PM LABORER AMMUNITION ASSEMBLY Hospital Encounter [facility] Gavi Saenz MD [address] [place] [address] Open wound of jaw; Fall from other slipping, tripping, or stumbling Social History Tobacco Use Types Packs/Day Years Used Date Smoking Tobacco: Never Assessed Comments Unknown Sex and Gender Information Value Date Recorded Sex Assigned at Not on file Legal 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 Gender Identity Not on file Sexual Orientation Not on file documented as of this encounter Last Filed Vital Signs Vital Sign Reading Time Taken Comments Blood Pressure 151/99 06/10/2013 8:42 PM LABORER AMMUNITION ASSEMBLY Pulse 95 06/10/2013 8:42 PM LABORER AMMUNITION ASSEMBLY Temperature 36.7 ??C (98.1 ??F) 06/10/2013 8:42 PM CS T Respiratory Rate - - Oxygen Saturation 96% 06/10/2013 8:42 PM LABORER AMMUNITION ASSEMBLY Inhaled Oxygen Concentration - - Weight 61.2 kg (135 lb) 06/10/2013 8:42 PM LABORER AMMUNITION ASSEMBLY Height 160 cm (5' 3 ) 06/10/2013 8:42 PM LABORER AMMUNITION ASSEMBLY Body Mass Index 23.91 06/10/2013 8:42 PM LABORER AMMUNITION ASSEMBLY documented in this encounter Plan of Treatment Not on file documented as of this encounter Visit Diagnoses Diagnosis Open wound of jaw Open wound of jaw, without mention of complication Fall from other slipping, tripping, or stumbling documented in this encounter
--- OUTSIDE RECORDS SUMMARY | 2024-04-17 11:52 | XMS_ITS | Encounter Summary ---
Author Organization [facility] [place] [facility] Care Team Providers Care Asset Management Coordinator Name Role Phone Unavailable Primary Care Provider Unavailabl e Encounter Details Date Type Department Care Team (Latest Contact Info) Description 12/04/2013 4:49 PM CDT - 12/10/2013 11:51 AM CDT Hospital Encounter 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 Gender Identity Not on file Sexual Orientation Not on file documented as of this encounter Last Filed Vital Signs Vital Sign Reading Time Taken Comments Blood Pressure 101/71 12/10/2013 6:27 AM CDT Pulse 97 12/10/2013 6:27 AM CDT Temperature - - Respiratory Rate - - Oxygen Saturation - - Inhaled Oxygen Concentration - - Weight 65.2 kg (143 lb 11.8 oz) 12/07/2013 3:39 AM CDT Height 160 cm (5' 2.99 ) 12/05/2013 8:13 PM CDT Body Mass Index 25.47 12/05/2013 8:13 PM CDT documented in this encounter Discharge Summaries * ProviderDarwin MD - 12/10/2013 12:00 AM CDT Patient: GEORGIANA BOND Account: [id number] Room No: 1451-A : 1950 Proc. Date: Attending: MARCELA GARCIA M.D. Admit Date: 12/04/2013 Dictating: MARCELA GARCIA M.D. Disch. Date: 12/10/2013 Patient Type: IP Primary Diagnosis: Need for rehabilitation. Patient is status post an L3-4, L4-5, and L5-S1 decompressive laminectomy with facetectomies, diskectomy, and posterior lumbar interbody fusion by Dr Garza. Hospital Course: Ms Bond was admitted to [facility] unit on December 04, 2013, for comprehensive inpatient rehabilitation after undergoing lumbar decompression and fusion from L3-S1 and by Dr Garza on December 02, 2013. The patient was evaluated by Physical and Occupational Therapy. She was kept on lumbar precautions. Her incision was closely monitored. Yordan remained intact. Her incision was clean and dry. During her rehabilitation stay, the patient improved her ability to perform ADLs, transfers, and ambulation. Her pain was well controlled with medication. Her bowel and bladder remained intact. Prior to discharge her came in for training. The patient did have postoperative anemia. By the time of discharge, her hemoglobin was 9.3 and hematocrit was 28.2. White blood cell count was normal at 9.7. Platelets were mildly elevated at 472. This was thought to be reactive due to her recent surgery. She remained mildly hyponatremic with a sodium at the time of discharge of 131. Her renal function remained normal with a creatinine of 0.5 at the time of discharge. The patient was noted to have low vitamin D and was placed on vitamin D supplementation. Condition on Discharge: Stable. By the time of discharge, she was at a modified independent to independent level. Discharge Diet: Low-fat, low-cholesterol diet. Discharge Medications (Refer to Medication Reconciliation Sheet): 1. Elavil 20 mg p.o. daily. 2. Dulcolax as needed for constipation. 3. Colace 100 mg p.o. b.i.d. 4. Prozac 40 mg p.o. nightly at bedtime. 5. Cullman 10/325, 1 p.o. t.i.d. 6. Levothroid 50 mcg p.o. nightly at bedtime. 7. Zestril 20 mg p.o. nightly at bedtime. 8. MiraLAX 1 packet p.o. daily. 9. Senokot 1 p.o. nightly at bedtime. 10. Zocor 80, mg p.o. nightly at bedtime. 11. Valtrex 500 mg p.o. daily. 12. Robaxin 750 mg p.o. t.i.d. p.r.n. for spasms. 13. Vitamin D. Followup Appointment: The patient should follow up with Dr Garza and with her primary care physician. Therapy at Discharge: Outpatient therapy. Ady OSMAN/tanvir TD: 12/10/2013 12:35 CC: JACK GARZA MD Authenticated by Marcela Garcia MD On 12/11/2013 07:52:55 AM documented in this encounter Consult Notes * ProviderDarwin MD - 12/05/2013 12:00 AM CDT Patient: GEORGIANA BOND Account: [id number] Room No: 1451-A : 1950 Consult Date: 12/05/2013 Attending: MARCELA GARCIA M.D. Admit Date: 12/04/2013 Consult.: CARSON LUNDBERG M.D. Disch. Date: Patient Type: IP HISTORY OF PRESENT ILLNESS: The patient is a very pleasant 63-year-old woman with a history of hypertension, dyslipidemia, and depression who presents for further aggressive inpatient rehabilitation. The patient has a history of severe degenerative disk disease and lumbar spinal stenosis. She has developed radicular symptoms and chronic back pain. She failed all forms of conservative therapy. The patient was evaluated by spinal surgery and it was felt that she would benefit from surgical intervention. The patient was admitted to [facility] and underwent laminectomy and posterior spinal fusion. The patient tolerated the procedure fairly well. She was monitored in the hospital postoperatively and continued on supportive care. She was noted to be anemic postoperatively. She required transfusion of 2 units of packed red blood cells. The patient also had some difficulties with constipation. She was stabilized, but remains quite debilitated. It was felt that she would benefit from further aggressive inpatient rehabilitation at this time. REVIEW OF SYSTEMS: The patient denies fevers, chills, headache or acute vision change. She denies odynophagia or dysphagia. She denies chest pain, palpitations or acute shortness of breath. She denies productive cough or wheezing. She denies abdominal pain. She has had some intermittent nausea. She reports constipation with no bowel movement in the past 5 days. She denies dysuria or hematuria. She has ongoing arthralgias. She has moderate postoperative back pain. She has weakness and numbness in her legs. She denies any other acute complaint at this time. ALLERGIES: ADHESIVE TAPE. CURRENT MEDICATIONS: 1 Vicodin 10/325 one tablet p.o. t.i.d. 2 Percocet 5/325 one tablet p.o. q.4 hours p.r.n. 3 Amitriptyline 20 mg p.o. at bedtime. 4 Colace 100 mg p.o. b.i.d. 5 Fluoxetine 40 mg p.o. daily. 6 Levothyroxine 50 mcg p.o. daily. 7 Lisinopril 20 mg p.o. daily. 8 Methocarbamol 750 mg p.o. t.i.d. p.r.n. 9 Zocor 80 mg p.o. daily. 10 Valtrex 500 mg p.o. daily. PAST MEDICAL HISTORY: Remarkable for lumbar radiculopathy, spinal stenosis, depression, hypertriglyceridemia, dyslipidemia, hypothyroidism, chicken pox, unspecified vesicular disease. She is status post hysterectomy, cataract removal, neck surgery, tubal ligation and previous miscarriage. SOCIAL HISTORY: The patient drinks alcohol occasionally. She does not use tobacco or illicit drugs. FAMILY HISTORY: Noncontributory. PHYSICAL EXAMINATION: VITAL SIGNS: She is afebrile. Blood pressure is 132/69, pulse of 96, respiratory rate of 16, O2 saturations 94% on room air. GENERAL: She is awake, alert and in no acute distress. HEAD: Shows normocephalic, atraumatic head. Pupils are equal, round, reactive, extraocular muscles are intact. Sclerae are anicteric. Mucous membranes are moist without lesions. NECK: Supple with no appreciable jugular venous distention. HEART: Shows regular rate and rhythm. LUNGS: Clear to auscultation bilaterally. ABDOMEN: Mildly distended with some tenderness palpation in the left lower quadrant. Bowel sounds are normal active. There is no rebound or guarding. EXTREMITIES: Show no significant edema. BACK: Reveals postoperative changes. NEUROLOGIC: Reveals she is alert and oriented x3. She has mildly decreased strength in the lower extremities along with decreased sensation. LABORATORY STUDIES: Show white blood cell count of 10.2, hemoglobin 8.7, hematocrit is 25.5 with MCV of 94, platelet count is 241,000. Sodium 133, potassium 3.7, chloride 100, bicarbonate is 25, BUN is 4, creatinine is 0.45, glucose 96, calcium 8.7. Total bilirubin of 0.6, total protein is 5.2, albumin 2.6. Alkaline phosphatase 40, ALT is 32, AST is 31. IMPRESSION: 1 Spinal stenosis and lumbar radiculopathy, status post laminectomy and posterior spinal fusion. 2 Constipation. 3 Postoperative anemia. 4 Hypertension. 5 Dyslipidemia. 6 Depression. 7 Hypothyroidism. 8 Unspecified vesicular disease. 9 Hypoalbuminemia. PLAN: She has been admitted to [facility] Unit. The patient will undergo comprehensive rehabilitation program. She will require close followup with spinal surgery as arranged. Her pain will be controlled. She will be continued on postoperative wound care. She will be maintained on a bowel regimen for her significant constipation. Her hemoglobin and hematocrit will be watched very closely. She will be transfused again on an as needed basis. Her blood pressure will be monitored closely as well. She will be continued on lisinopril per her home regimen. She will be continued on her home dose of levothyroxine. She will be maintained on a statin medication. Valtrex will be continued for her home regimen as well. Her nutritional status will be watched very closely. She will be seen in consultation by a dietetic technician registered. A high-protein diet will be offered given her hypoalbuminemia. Her electrolytes will be rechecked and repleted as needed. She will be maintained on sequential compression devices for deep venous thrombosis prophylaxis given her recent spinal surgery. Thank you for involving me in the care of this very pleasant patient. I will continue to follow along with you. CARSON LUNDBERG M.D. AJE/ TD: 12/05/2013 07:49 Authenticated by Carson Lundberg MD On 12/11/2013 08:20:01 AM documented in this encounter Miscellaneous Notes * Admission Note - ProviderDarwin MD - 12/04/2013 12:00 AM CDT Patient: GEORGIANA BOND Account: [id number] Room No: 1451-A : 1950 Admit Date: 12/04/2013 Attending: MARCELA GARCIA M.D. Disch. Date: Dictating: MARCELA GARCIA M.D. Patient Type: IP Chief Complaint: Need for rehabilitation. Patient is status post a non-traumatic spinal cord dysfunction. Patient is status post L3-S1 decompressive laminectomy and fusion. History of Present Illness: Ms Bond had undergone a posterior lumbar fusion at 3 levels from L3-L4, L4-L5, and L5-S1 by Dr Garza on December 02, 2013. The patient tolerated the procedure well. She has been on lumbar precautions. She has been anemic. The patient did have blood transfusion for hemoglobin and hematocrit of 7.1 and 21.0. She has continued to have low back pain. She says that prior to surgery the pain radiated down the back to her legs. Now it is more in front. She admits to constipation. She denies any bladder problems. Past Medical History: Arthritis, cataracts, chickenpox, depression, hypothyroidism. Past Surgical History: Hysterectomy, tubal ligation, neck surgery. Allergies: Adhesive tape. Current Medications: 1. Elavil 20 mg p.o. at bedtime. 2. Colace 100 mg p.o. b.i.d. 3. Prozac 40 mg p.o. at bedtime. 4. Cullman 5/325, 1 p.o. t.i.d. 5. Levothroid 50 mcg p.o. q.a.m. 6. Zestril 20 mg p.o. every evening. 7. Fleet enema p.r.n. 8. MiraLAX 1 packet p.o. daily. 9. Senokot 1 p.o. daily. 10. Zocor 80 mg p.o. at bedtime. 11. Valtrex 500 mg p.o. daily. 12. Dulcolax suppository 1 per rectum daily p.r.n. for constipation. 13. Dulcolax tablet 10 mg p.o. daily p.r.n. for constipation. 14. Percocet p.r.n. for pain. Social History: The patient is . She lives with her family in a 1-story home with steps to enter. She was completely independent prior to surgery. Currently she requires standby assistance with grooming and upper body dressing, moderate assistance for lower extremity dressing, contact guard to minimal assistance with bed mobility, transfers, and ambulation. She uses a wheeled walker. Review of Systems: As per history of present illness. Physical Examination: Vital Signs: 130/69, 96, 16 HEENT: Normocephalic, atraumatic. Sclerae white. Conjunctivae clear. Pharynx clear and moist. Neck: Supple. Heart: Regular rate and rhythm. Lungs: Essentially clear to auscultation. Abdomen: Bowel sounds positive. Nontender, nondistended. Musculoskeletal: Examination reveals no ankle edema. Calves are soft and nontender. Range of motion is functionally limited. Back: Examination reveals an incision with borders well approximated. No erythema, no drainage. Neurologic: Examination reveals that the patient is alert, coherent, and oriented x3. Cranial nerve examination is unremarkable. Strength is normal in the upper extremities bilaterally. Lower extremity strength is limited secondary to discomfort. She has at least 4/5 strength in the lower extremities bilaterally. Sensation is intact to light touch. Reflexes are 1. Impression/Comorbidities: 1. Lumbar stenosis, status post decompression and fusion, L3-S1, by Dr Garza on December 02, 2013. 2. Pain. 3. Constipation. 4. Hypothyroidism. 5. Anemia, status post recent transfusion. 6. Depression. 7. Hypertension. 8. Dyslipidemia. 9. Hypoalbuminemia. Rehabilitation Plan: The patient will be evaluated by a physical medicine rehabilitation board of physicians. She will be treated in the structured unit. She will be undergoing physical and occupational therapy. The goal will be to improve her overall strength, endurance, balance, and ability to perform bed mobility, transfers, ambulation in order for her to return home with assistance of her family. Estimated Length of Stay: 14 days Physician Goals: For the patient to be at a modified independent to independent level. Patient Goals: Same as physician goals. Rehabilitation Potential: Excellent. Barriers to Discharging: Pain; generalized weakness; decreased endurance; decreased balance; impaired mobility; impaired ability to perform ADLs, transfers, and ambulation; steps to enter home; medical comorbidity. Plan and Risk of Complications: 1. Spinal stenosis, status post decompression and fusion from L3-S1 by Dr Garza on December 02, 2013: The patient will be undergoing a structured therapy program as detailed above. Will continue to monitor her incision closely. The patient will be continued with lumbar orthosis and on lumbar precautions. 2. Pain control with medications. 3. Constipation: Will adjust her stool softeners. Will consider a KUB for obstruction. 4. Postoperative anemia: Will continue to monitor her hemoglobin and hematocrit. The patient may benefit from iron and vitamin C. 5. DVT prophylaxis: Sequential compression devices and MONSE stockings. 6. Hypothyroidism, on supplementation. 7. Hypercholesterolemia, on Zocor. 8. Depression, on fluoxetine and amitriptyline. 9. Hypertension, on lisinopril. We will have Internal Medicine follow this patient with us. STATEMENT OF MEDICAL NECESSITY: I have reviewed this patient's preadmission screening information. I have personally evaluated the patient and the patient is sufficiently stable to participate in the rehab program. In my professional judgment and rehabilitation experience, she meets medical necessity criteria and requires an inpatient stay to manage her needs for nursing and medical management. The patient requires supervision by a rehabilitation physician at least 3 times a week and requires interdisciplinary team approach of an intensive rehabilitation program. Can reasonably be expected to participate in and benefit from the intensive inpatient rehabilitation program offered at [facility]. MARCELA GARCIA M.D. LA/tanvir TD: 12/06/2013 07:29 CC: MD RONALD CHAVEZ M.D. Authenticated by Marcela Garcia MD On 12/06/2013 08:34:25 AM * Admission Note - Provider, MD Darwin - 12/04/2013 12:00 AM CDT Patient: GEORGIANA BOND Account: [id number] Room No: 1451-A : 1950 Admit Date: 12/04/2013 Attending: MARCELA GARCIA M.D. Disch. Date: Dictating: MARCELA GARCIA M.D. Patient Type: IP CHIEF COMPLAINT: Need for rehabilitation, patient status post a nontraumatic spinal cord dysfunction in patient status post L3 to S1 decompressive laminectomy and fusion. HISTORY OF PRESENT ILLNESS: Mrs. Castillo had undergone a posterior lumbar fusion at 3 levels from L3 to L4, L4 to L5 and L5 to S1 by Dr. Garza on 12/02/2013. The patient tolerated the procedure well. She has been on lumbar precautions. She has been anemic. The patient did have blood transfusion for hemoglobin and hematocrit of 7.1 and 21.0. She has continued to have low back pain. She says that prior to the surgery the pain radiated down the backs of her legs, now it is more in front. She admits to constipation. She denies any bladder problems. PAST MEDICAL HISTORY: Arthritis, cataracts, chicken pox, depression, hypothyroidism. PAST SURGICAL HISTORY: Hysterectomy, tubal ligation, neck surgery. ALLERGIES: Adhesive tape. CURRENT MEDICATIONS: Elavil 20 mg p.o. q. h.s., Colace 100 mg p.o. b.i.d., Prozac 40 mg p.o. q. h.s., Cullman 5/325 one to two p.o. t.i.d., Levothroid 50 mcg p.o. q. a.m., Zestril 20 mg p.o. q. p.m., Fleet's enema p.r.n., MiraLAX 1 tablet p.o. daily, Senokot 1 p.o. daily, Zocor 80 mg p.o. q. h.s., Valtrex 500 mg p.o. daily, Dulcolax suppository one per rectum daily p.r.n. for constipation. Dulcolax tablet 10 mg p.o. daily, p.r.n. for constipation, Percocet p.r.n. for pain. SOCIAL HISTORY: The patient is . She lives with her family in a one story home with steps to enter. She was completely independent prior to the surgery. Currently, she requires standby assistance with grooming and appropriate dressing, moderate assistance for lower extremity dressing. Contact guard to minimal assistance with ____, transfers and ambulation. She uses a wheeled walker. REVIEW OF SYSTEMS: Per history of the present illness. PHYSICAL EXAMINATION: VITAL SIGNS: Blood pressure 130/69, 96, 16. HEENT: Normocephalic and atraumatic. Sclerae white. Conjunctivae clear and moist. NECK: Supple. HEART: Regular rate and rhythm. LUNGS: Essentially clear to auscultation. ABDOMEN: Bowel sounds positive, nontender and nondistended. MUSCULOSKELETAL: Examination reveals no ankle edema. Calves are soft and nontender. Range of motion is within functional limits. ____ of her back reveals incision with borders well approximated. No erythema and no drainage. NEUROLOGIC: Reveals that the patient was alert, coherent and oriented x3. Cranial nerve examination was unremarkable. Strength was normal in the upper extremities bilaterally. Lower extremity strength was limited secondary to discomfort. She had at least 4/5 strength in the lower extremities bilaterally. Sensation was intact to light touch. Her reflexes were 1. IMPRESSION/COMORBIDITIES: 1 Lumbar stenosis status post decompression and fusion L3 to S1 by Dr. Edwards on 12/02/2013. 2 Pain. 3 Constipation. 4 Hypothyroidism. 5 Anemia, status post recent transfusion. 6 Depression. 7 Hypertension. 8 Dyslipidemia. 9 Hypoalbuminemia. 10 Rehabilitation. PLAN: The patient will be evaluated by physical medicine rehabilitation boarded physician. She will be treated in a structured unit. She will be undergoing physical and occupational therapy. The goal will be improve her overall strength, endurance, balance and ability to perform bed mobility, transfers and ambulation, in order for her to return home with the assistance of her family. ESTIMATED LENGTH OF STAY: 14 days. MD GOALS: Patient to be at a modified independent to independent level. The patient's goal is the same as MD goal. REHABILITATION POTENTIAL: Excellent. BARRIERS TO DISCHARGE: Include pain, generalized weakness, decreased endurance, decreased balance, impaired mobility, impaired ability to perform ADLs, transfers and ambulation, steps to enter home. MEDICAL COMORBIDITY/PLAN/RISK OF COMPLICATIONS: 1 Spinal stenosis status post decompression and fusion from L3 to S1 by Dr. Edwards on 12/02/2013. The patient will be undergoing a structured therapy program, as detailed above. Will continue to monitor her incisions closely. The patient will be continued with lumbar orthosis on lumbar precautions. 2 Pain control with medications. 3 Constipation. Will adjust her stool softeners. Will consider a KUB for obstruction. 4 Anemia. Will continue to monitor her hemoglobin and hematocrit. The patient may benefit form iron and vitamin C. 5 Deep venous thrombosis prophylaxis on sequential compression devices and MONSE stockings. 6 Hypothyroidism on supplementation. 7 Hypercholesterolemia on Zocor. 8 Depression on fluoxetine. 9 Amitriptyline. 10 Hypertension on lisinopril. Will have internal medicine follow this patient with us. STATEMENT OF MEDICAL NECESSITY: I have reviewed this patient's preadmission screening information. I have personally evaluated the patient. The patient is sufficiently stable to participate in a rehab program. In my professional judgment and rehabilitation experience, she meets medical necessity criteria and requires an inpatient stay to manage her needs for nursing and medical management. The patient requires supervision by a rehabilitation physician at least 3 times a week and requires an interdisciplinary team approach of an intensive inpatient rehabilitation program. The patient can be reasonably expected to participate in and benefit from the intensive inpatient rehabilitation program offered at [facility]. MARCELA GARCIA M.D. HENRRY/rubin TD: 12/06/2013 01:07 CC: Ady TOVAR MD Authenticated by Marcela Garcia MD On 12/06/2013 09:10:18 AM documented in this encounter Plan of Treatment Not on file documented as of this encounter Procedures Procedure Name Priority Date/Time Associated Diagnosis Comments DISCHARGE LABORATORY CUMULATIVE REPORT 12/10/2013 SERUM OSMOLALITY Routine 12/09/2013 4:59 AM CDT PLASMA BASIC METABOLIC PANEL Routine 12/09/2013 4:59 AM CDT BLOOD CELL COUNT (CBC), MORPHOLOGIC EXAM Routine 12/09/2013 4:59 AM CDT SERUM OSMOLALITY Routine 12/07/2013 4:46 AM CDT PLASMA BASIC METABOLIC PANEL Routine 12/07/2013 4:46 AM CDT SERUM 25-HYDROXYCHOLECALCIFER OL (VITAMIN D) Routine 12/06/2013 5:32 AM CDT PLASMA PHOSPHORUS Routine 12/06/2013 5:3 2 AM CDT PLASMA MAGNESIUM Routine 12/06/2013 5:32 AM CDT PLASMA IRON PROFILE Routine 12/06/2013 5 :32 AM CDT PLASMA FOLIC ACID Routine 12/06/2013 5:3 2 AM CDT PLASMA FERRITIN Routine 12/06/2013 5:32 AM CDT PLASMA CYANOCOBALAMIN (VITAMIN B12) Routine 12/06/2013 5:32 AM CDT PLASMA BASIC METABOLIC PANEL Routine 12/06/2013 5:32 AM CDT BLOOD CELL COUNT (CBC), MORPHOLOGIC EXAM Routine 12/06/2013 5:32 AM CDT URINE MICROSCOPY Routine 12/05/2013 8:30 AM CDT PLASMA COMPREHENSIVE METABOLIC PANEL Routine 12/05/2013 4:04 AM CDT BLOOD CELL COUNT (CBC), MORPHOLOGIC EXAM Routine 12/05/2013 4:04 AM CDT URINALYSIS Routine 12/05/2013 3:30 AM CDT URINE MICROBIOLOGY Routine 12/04/2013 12 :00 AM CDT documented in this encounter Results * DISCHARGE LABORATORY CUMULATIVE REPORT (12/10/2013) Narrative 12/10/2013 Ordered by an unspecified provider. us Historical Provider LAB BLOOD ORDERABLES Jesi l Result * (ABNORMAL) Blood cell count (CBC), morphologic exam (12/09/2013 4:59 AM CDT) WBC 9.7 4.5 - 11.0 K/cumm HISTORICAL RESULTS RBC 3.00(L) 3.80 - 5.40 M/cumm HISTORICAL RESULTS Hgb 9.3(L) 11.5 - 16.0 g/dl HISTORICAL RESULTS Comment:As of May 15, the hemoglobin alert value has changed from less than 7.0 g/dL to less than or equal to 6.5 g/dL, first time per admission. Hct 28.2(L) 34.0 - 48.0 % HISTORICAL RESULTS Comment:As of May 15, the hematocrit alert value has changed from less than 21% to less than or equal to 19.5%, first time per admission. MCV 94.0 80.0 - 100.0 fl HISTORICAL RESULTS MCH 31.0 27.0 - 33.0 pg HISTORICAL RESULTS MCHC 32.9 32.0 - 36.0 g/dl HISTORICAL RESULTS Rdw 13.6 11.5 - 14.5 % HISTORICAL RESULTS Platelets 472(H) 140 - 400 K/cumm HISTORICAL RESULTS MPV 6.8(L) 7.4 - 10.4 fl HISTORICAL RESULTS Neutrophils 66.6 42.0 - 75.0 % HISTORICAL RESULTS Lymphocytes 22.8 21.0 - 51.0 % HISTORICAL RESULTS Monos 8.5 2.0 - 9.0 % HISTORICAL RESULTS Eosinophils 1.8 0.0 - 10.0 % HISTORICAL RESULTS Basophils 0.3 0.0 - 1.0 % HISTORICAL RESULTS Neutrophils, abs 6.4 1.8 - 7.7 K/cumm HISTORICAL RESULTS Lymphocytes, abs 2.2 1.0 - 4.8 K/cumm HISTORICAL RESULTS Monocytes, absolute 0.8 0.0 - 0.8 K/cumm HISTORICAL RESULTS Eosinophils, abs 0.2 0.0 - 0.5 K/cumm HISTORICAL RESULTS Basophils, abs 0.0 0.0 - 0.2 K/cumm HISTORICAL RESULTS Blood specimen (specimen) 12/09/2013 4:59 AM CDT us Carson Lundberg MD LAB BLOOD ORDERABLES Final Re sul Performing Organization Address [facility] de Phone Number HISTORICAL RESULTS * Serum osmolality (12/09/2013 4:59 AM CDT) Osmo 275 275 - 295 mOsm/kg HISTORICAL RESULTS Serum 12/09/2013 4:59 AM CDT us Carson Lundberg MD LAB BLOOD ORDERABLES Final Re sult Performing Organization Address [facility] de Phone Number HISTORICAL RESULTS * (ABNORMAL) Plasma basic metabolic panel (12/09/2013 4:59 AM CDT) Sodium 131(L) 136 - 146 mmol/L HISTORICAL RESULTS K, pl 4.0 3.3 - 4.9 mmol/L HISTORICAL RESULTS Chloride 99 98 - 108 mmol/L HISTORICAL RESULTS CO2 28 22 - 33 mmol/L HISTORICAL RESULTS BUN 5(L) 7 - 18 mg/dl HISTORICAL RESULTS Glucose 95 70 - 140 mg/dl HISTORICAL RESULTS Comment: Glucose is assumed to be non-fasting. ?? Fasting Glucose normal ranges are: 0 days - 2 months: ? 40 mg/dL - 100 mg/dL 2 months - 999 years: ?70 mg/dL - 99 mg/dL Creatinine 0.50 0.50 - 1.50 mg/dl HISTORICAL RESULTS eGFR >60 ml/min/1.7 3 m2 HISTORICAL RESULTS Comment: GFR Reference Range: = > 60 mL/min/1.73 m2 This result has been calculated assuming the patient is Non-. ??If the patient is , please multiply this result by 1.21. The GFR value is not recommended for medication dose adjustment for renal function, creatinine clearance values should be used. Calcium 8.9 8.5 - 10.5 mg/dl HISTORICAL RESULTS Plasma 12/09/2013 4:59 AM CDT Carson Lundberg MD LAB BLOOD ORDERABLES Final Re sult Performing Organization Address [facility] de Phone Number HISTORICAL RESULTS * (ABNORMAL) Serum osmolality (12/07/2013 4:46 AM CDT) Osmo 273(L) 275 - 295 mOsm/kg HISTORICAL RESULTS Serum 12/07/2013 4:46 AM CDT Carson Lundberg MD LAB BLOOD ORDERABLES Final Re sult Performing Organization Address [facility] de Phone Number HISTORICAL RESULTS * (ABNORMAL) Plasma basic metabolic panel (12/07/2013 4:46 AM CDT) Sodium 133(L) 136 - 146 mmol/L HISTORICAL RESULTS K, pl 3.8 3.3 - 4.9 mmol/L HISTORICAL RESULTS Chloride 101 98 - 108 mmol/L HISTORICAL RESULTS CO2 26 22 - 33 mmol/L HISTORICAL RESULTS BUN 4(L) 7 - 18 mg/dl HISTORICAL RESULTS Glucose 97 70 - 140 mg/dl HISTORICAL RESULTS Comment: Glucose is assumed to be non-fasting. ?? Fasting Glucose normal ranges are: 0 days - 2 months: ? 40 mg/dL - 100 mg/dL 2 months - 999 years: ?70 mg/dL - 99 mg/dL Creatinine 0.44(L) 0.50 - 1.50 mg/dl HISTORICAL RESULTS eGFR >60 ml/min/1.7 3 m2 HISTORICAL RESULTS Comment: GFR Reference Range: = > 60 mL/min/1.73 m2 This result has been calculated assuming the patient is Non-. ??If the patient is , please multiply this result by 1.21. The GFR value is not recommended for medication dose adjustment for renal function, creatinine clearance values should be used. Calcium 8.4(L) 8.5 - 10.5 mg/dl HISTORICAL RESULTS Plasma 12/07/2013 4:46 AM CDT us Carson Lundberg MD LAB BLOOD ORDERABLES Final Re sult HISTORICAL RESULTS * (ABNORMAL) Blood cell count (CBC), morphologic exam (12/06/2013 5:32 AM CDT) WBC 8.7 4.5 - 11.0 K/cumm HISTORICAL RESULTS RBC 2.74(L) 3.80 - 5.40 M/cumm HISTORICAL RESULTS Hgb 8.7(L) 11.5 - 16.0 g/dl HISTORICAL RESULTS Comment:As of May 15, the hemoglobin alert value has changed from less than 7.0 g/dL to less than or equal to 6.5 g/dL, first time per admission. Hct 25.8(L) 34.0 - 48.0 % HISTORICAL RESULTS Comment:As of May 15, the hematocrit alert value has changed from less than 21% to less than or equal to 19.5%, first time per admission. MCV 94.3 80.0 - 100.0 fl HISTORICAL RESULTS MCH 31.6 27.0 - 33.0 pg HISTORICAL RESULTS MCHC 33.5 32.0 - 36.0 g/dl HISTORICAL RESULTS Rdw 13.8 11.5 - 14.5 % HISTORICAL RESULTS Platelets 263 140 - 400 K/cumm HISTORICAL RESULTS MPV 7.3(L) 7.4 - 10.4 fl HISTORICAL RESULTS Neutrophils 71.1 42.0 - 75.0 % HISTORICAL RESULTS Lymphocytes 17.7(L) 21.0 - 51.0 % HISTORICAL RESULTS Monos 8.4 2.0 - 9.0 % HISTORICAL RESULTS Eosinophils 2.4 0.0 - 10.0 % HISTORICAL RESULTS Basophils 0.4 0.0 - 1.0 % HISTORICAL RESULTS Neutrophils, abs 6.2 1.8 - 7.7 K/cumm HISTORICAL RESULTS Lymphocytes, abs 1.5 1.0 - 4.8 K/cumm HISTORICAL RESULTS Monocytes, absolute 0.7 0.0 - 0.8 K/cumm HISTORICAL RESULTS Eosinophils, abs 0.2 0.0 - 0.5 K/cumm HISTORICAL RESULTS Basophils, abs 0.0 0.0 - 0.2 K/cumm HISTORICAL RESULTS Blood specimen (specimen) 12/06/2013 5:32 AM CDT Carson Lundberg MD LAB BLOOD ORDERABLES Final Re sult Performing Organization Address [facility] de Phone Number HISTORICAL RESULTS * (ABNORMAL) Serum 25-hydroxycholecalciferol (vitamin D) (12/06/2013 5:32 AM CDT) 25-OH Vit D 19(L) 30 - 100 ng/ml HISTORICAL RESULTS Serum 12/06/2013 5:32 AM CDT Carson Lundberg MD LAB BLOOD ORDERABLES Final Re sult Performing Organization Address [facility] de Phone Number HISTORICAL RESULTS * (ABNORMAL) Plasma basic metabolic panel (12/06/2013 5:32 AM CDT) Sodium 132(L) 136 - 146 mmol/L HISTORICAL RESULTS K, pl 4.2 3.3 - 4.9 mmol/L HISTORICAL RESULTS Chloride 100 98 - 108 mmol/L HISTORICAL RESULTS CO2 26 22 - 33 mmol/L HISTORICAL RESULTS BUN 4(L) 7 - 18 mg/dl HISTORICAL RESULTS Glucose 99 70 - 140 mg/dl HISTORICAL RESULTS Comment: [...] creatinine clearance values should be used. Calcium 8.4(L) 8.5 - 10.5 mg/dl HISTORICAL RESULTS Plasma 12/06/2013 5:32 AM CDT us Carson Lundberg MD LAB BLOOD ORDERABLES Final Re sult Performing Organization Address [facility] Phone Number HISTORICAL RESULTS * Plasma phosphorus (12/06/2013 5:32 AM CDT) Phosphorus, pl 4.4 2.5 - 4.5 mg/dl HISTORICAL RESULTS Plasma 12/06/2013 5:32 AM CDT us Carson Lundberg MD LAB BLOOD ORDERABLES Final Re sult Performing Organization Address [facility] Phone Number HISTORICAL RESULTS * Plasma ferritin (12/06/2013 5:32 AM CDT) Ferritin 96.0 11.0 - 307.0 ng/ml HISTORICAL RESULTS Plasma 12/06/2013 5:32 AM CDT us Carson Lundberg MD LAB BLOOD ORDERABLES Final Re sult Performing Organization Address [facility] Phone Number HISTORICAL RESULTS * (ABNORMAL) Plasma cyanocobalamin (vitamin B12) (12/06/2013 5:32 AM CDT) Cyanocobalamin (Vit B12) 1270(H) 180 - 999 pg/ml HISTORICAL RESULTS Plasma 12/06/2013 5:32 AM CDT us Carson Lundberg MD LAB BLOOD ORDERABLES Final Re sult Performing Organization Address [facility] Phone Number HISTORICAL RESULTS * (ABNORMAL) Plasma iron profile (12/06/2013 5:32 AM CDT) Iron 15(L) 28 - 170 mcg/dl HISTORICAL RESULTS TIBC 252 250 - 450 mcg/dl HISTORICAL RESULTS Transferrin 180(L) 250 - 380 mg/dl HISTORICAL RESULTS Iron saturation 6(L) 20 - 55 % HIST ORICAL RESULTS Plasma 12/06/2013 5:32 AM CDT Carson Lundberg MD LAB BLOOD ORDERABLES Final Re sult Performing Organization Address [facility] de Phone Number HISTORICAL RESULTS * Plasma folic acid (12/06/2013 5:32 AM CDT) Folic acid 12.5 5.9 - 99.0 mcg/L HISTORICAL RESULTS Comment:The World Health Org anization (WHO) Technical Consulation on folate has determined that folate concentrations less than 4 ng/mL are considered deficient. Plasma 12/06/2013 5:32 AM CDT Carson Lundberg MD LAB BLOOD ORDERABLES Final Re sult Performing Organization Address [facility] Phone Number HISTORICAL RESULTS * Plasma magnesium (12/06/2013 5:32 AM CDT) Magnesium 1.9 1.6 - 2.3 mg/dl HISTORICAL RESULTS Plasma 12/06/2013 5:32 AM CDT Result [facility] Carson Lundberg MD LAB BLOOD ORDERABLES Final Re sult Performing Organization Address [facility] de Phone Number HISTORICAL RESULTS * (ABNORMAL) Urine microscopy (12/05/2013 8:30 AM CDT) RBC, ur 3 - 5(A) 0 - 2 /hpf HISTORICAL RESULTS WBC, ur 3 - 5 0-2,3-5 /hpf HISTORICAL RESULTS Epithelial cells, squamous, ur Too numerous to count. /lpf HISTORICAL RESULTS Urine 12/05/2013 8:30 AM CDT Marcela Garcia MD LAB BLOOD ORDERABLES Final Re sult HISTORICAL RESULTS * (ABNORMAL) Blood cell count (CBC), morphologic exam (12/05/2013 4:04 AM CDT) WBC 10.2 4.5 - 11.0 K/cumm HISTORICAL RESULTS RBC 2.72(L) 3.80 - 5.40 M/cumm HISTORICAL RESULTS Hgb 8.7(L) 11.5 - 16.0 g/dl HISTORICAL RESULTS Hct 25.5(L) 34.0 - 48.0 % HISTORICAL RESULTS MCV 94.0 80.0 - 100.0 fl HISTORICAL RESULTS MCH 32.0 27.0 - 33.0 pg HISTORICAL RESULTS MCHC 34.0 32.0 - 36.0 g/dl HISTORICAL RESULTS Rdw 14.2 11.5 - 14.5 % HISTORICAL RESULTS Platelets 241 140 - 400 K/cumm HISTORICAL RESULTS MPV 6.6(L) 7.4 - 10.4 fl HISTORICAL RESULTS Neutrophils 75.5(H) 42.0 - 75.0 % HISTORICAL RESULTS Lymphocytes 14.9(L) 21.0 - 51.0 % HISTORICAL RESULTS Monos 8.5 2.0 - 9.0 % HISTORICAL RESULTS Eosinophils 0.8 0.0 - 10.0 % HISTORICAL RESULTS Basophils 0.3 0.0 - 1.0 % HISTORICAL RESULTS Neutrophils, abs 7.7 1.8 - 7.7 K/cumm HISTORICAL RESULTS Lymphocytes, abs 1.5 1.0 - 4.8 K/cumm HISTORICAL RESULTS Monocytes, absolute 0.9(H) 0.0 - 0.8 K/cumm HISTORICAL RESULTS Eosinophils, abs 0.1 0.0 - 0.5 K/cumm HISTORICAL RESULTS Basophils, abs 0.0 0.0 - 0.2 K/cumm HISTORICAL RESULTS Blood specimen (specimen) 12/05/2013 4:04 AM CDT us Marcela Garcia MD LAB BLOOD ORDERABLES Final Re sult HISTORICAL RESULTS * (ABNORMAL) Plasma comprehensive metabolic panel (12/05/2013 4:04 AM CDT) Sodium 133(L) 136 - 146 mmol/L HISTORICAL RESULTS K, pl 3.7 3.3 - 4.9 mmol/L HISTORICAL RESULTS Chloride 100 98 - 108 mmol/L HISTORICAL RESULTS CO2 25 22 - 33 mmol/L HISTORICAL RESULTS BUN 4(L) 7 - 18 mg/dl HISTORICAL RESULTS Glucose 96 70 - 140 mg/dl HISTORICAL RESULTS Comment: [...] creatinine clearance values should be used. Calcium 8.0(L) 8.5 - 10.5 mg/dl HISTORICAL RESULTS Bilirubin 0.6 0.1 - 1.2 mg/dl HISTORICAL RESULTS Protein, pl 5.2(L) 6.0 - 8.5 g/dl HISTORICAL RESULTS Alb 2.6(L) 3.4 - 5.0 g/dl HISTORICAL RESULTS Alk phos 40 38 - 126 IUnits/L HISTORICAL RESULTS ALT 32 14 - 54 IUnits/L HISTORICAL RESULTS AST 31 15 - 41 IUnits/L HISTORICAL RESULTS Plasma 12/05/2013 4:04 AM CDT us Marcela Garcia MD LAB BLOOD ORDERABLES Final Re sult HISTORICAL RESULTS * (ABNORMAL) Urinalysis (12/05/2013 3:30 AM CDT) Color, ur Colorless(A) LightYellow, Yellow HISTORICAL RESULTS Clarity, ur Clear Clear HISTORIC AL RESULTS Specific gravity, ur 1.006 1.005 - 1.030 HISTORICAL RESULTS pH, ur 7.5 5.0 - 8.0 HISTORICAL RESULTS Leukocyte esterase, ur 250(A) Negative nayeli/mcl HISTORICAL RESULTS Nitrites, ur Negative Negative HISTORI IAN RESULTS Protein, ur Negative Negative mg/dl HISTORICAL RESULTS Glucose, ur, quant Normal Normal mg/dl HISTORICAL RESULTS Ketones, ur, quant 10(A) Negative mg/dl HISTORICAL RESULTS Urobilinogen, quant, ur Normal Normal mg/dl HISTORICAL RESULTS Bilirubin, ur Negative Negative mg/dl HISTORICAL RESULTS U Blood Negative Negative HISTORICAL RESULTS Urine 12/05/2013 3:30 AM CDT Narrative HISTORICAL RESULTS - 12/05/2013 3:58 AM CDT Urine culture was reflexed us Marcela Garcia MD LAB BLOOD ORDERABLES Final Re sult HISTORICAL RESULTS * Urine Microbiology (12/04/2013 12:00 AM CDT) 12/04/2013 12:0 0 AM CDT Narrative HISTORICAL RESULTS - 12/06/2013 2:00 PM CDT ? [facility] Microbiology ?[address] ??[place], [place] ??[address] ? Tele: ?Alejandra Islas M.D. - Field Checker - Bradly Berger - Administrative ?Director ?? Patient: GEORGIANA BOND ? Admission #: ??[id number] ?? : 1950 ?Location:[address] ?? Gender: F ?? Admit Date: 12/04/2013 ? = = = = = = = = = = = = = = = = = = = = = = = = = = = = = = = = = = = = = = Urine Culture ? Final ?? Urine ? Clean Voided ?? Collected: ??12/05/2013 08:30 ?? Inoculated: ??12/05/2013 08:58 ?? Report Date: ??12/06/2013 11:44 ? This culture was reflexed from a Urinalysis result ?? Culture Result ?Growth consistent with mateo-urethral fredy. = = = = = = = = = = = = = = = = = = = = = = = = = = = = = = = = = = = = = ? Physician: ?[facility] Microbiology Report-Clin[facility] ? us Historical Provider LAB MICROBIOLOGY - GENERA L ORDERABLES Final Result HISTORICAL RESULTS documented in this encounter Visit Diagnoses Diagnosis Other specified rehabilitation procedure Other disorders of plasma protein metabolism Arthrodesis status Arthropathy Unspecified arthropathy, site unspecified Hypothyroidism Unspecified hypothyroidism Constipation Unspecified constipation Anemia Unspecified anemia Other depressive disorder Essential hypertension Unspecified essential hypertension Other and unspecified hyperlipidemia Cataract extraction status Circulatory system disorder Unspecified circulatory system disorder documented in this encounter
--- OUTSIDE RECORDS SUMMARY | 2024-04-17 11:52 | XMS_ITS | Encounter Summary ---
Author Organization [facility] Facility Care Team Providers Care Radio Mechanic Apprentice Name Role Phone Unavailable Primary Care Provider Unavailabl e Encounter Details Date Type Department Care Team (Late st Contact Info) Description 05/06/2014 1:28 PM FLOORING SALESPERSON - 05/06/2014 11:59 PM FLOORING SALESPERSON Hospital Encounter [facility] Jack Garza MD [address] [address] [place] [address] Arthrodesis status Social History Tobacco Use Types Packs/Day Years Used Date Smoking Tobacco: Never Assessed Comments Unknown Sex and Gender Information Value Date Recorded Sex Assigned at Not on file Legal Sex Female 3:22 AM FLOORING SALESPERSON Gender Identity Not on file Sexual Orientation Not on file documented as of this encounter Plan of Treatment Not on file documented as of this encounter Procedures Procedure Name Priority Date/Time Associated Diagnosis Comments XR SPINE LUMBAR 2 OR 3 VIEWS Routine 05/06/2014 1:51 PM FLOORING SALESPERSON documented in this encounter Results * XR Spine Lumbar 2 Or 3 View (05/06/2014 1:51 PM FLOORING SALESPERSON) Anatomical Region Laterality Modality Spine N/A Radiographic Alexsandra ging 05/06/2014 1:51 PM FLOORING SALESPERSON Narrative 05/07/2014 8:10 AM FLOORING SALESPERSON Lumbar spine, 05/06/2014 HISTORY: ??Assess arthrodesis status, V45.4, status post lumbar fusion. COMPARISON: 03/18/2014. AP and lateral views of the lumbar spine demonstrate L3 through S1 posterior fusion with interbody fusion devices and vertical rods connecting screws. ??Laminectomy change of L4 has been performed. ?? Partial laminectomy of L3 and L5 is evident. ??There is anterolisthesis of L5 on S1. ??This is stable. ??There may be some minor lucency around the left S1 screw and around the right L3 screw tip. IMPRESSION: 1. ??No significant interval change. ?? CO:llc Radiologist: FLO SENIOR ?? Attending: ??JACK GARZA MD Requesting: JACK GARZA MD Requesting Fax: ?? Requesting ID: [id number] Attending Fax: ?? Attending ID: ?? [id number] Completed Time: ?? 05/06/2014 1:51 PM Dictated Time: ?05/06/2014 3:17 PM Transcribed Time: 05/06/2014 5:02 PM Signed by: ?FLO SENIOR ?? on 05/07/2014 08:10 AM Report To 1 ID: Report To 1 Name: , Report To 1 FAX: Report To 2 ID: Report To 2 Name: , Report To 2 FAX: Report To 3 ID: Report To 3 Name: , Report To 3 FAX: NextGen Order #: Procedure Note Provider, MD Darwin - 08/25/2016 Lumbar spine, 05/06/2014 HISTORY: Assess arthrodesis status, V45.4, status post lumbar fusion. COMPARISON: 03/18/2014. AP and lateral views of the lumbar spine demonstrate L3 through S1 posterior fusion with interbody fusion devices and vertical rods connecting screws. Laminectomy change of L4 has been performed. Partial laminectomy of L3 and L5 is evident. There is anterolisthesis of L5 on S1. This is stable. There may be some minor lucency around the left S1 screw and around the right L3 screw tip. IMPRESSION: 1. No significant interval change. CO:llc Radiologist: FLO SENIOR Attending: JACK GARZA MD Requesting: JACK GARZA MD Requesting Requesting ID: [id number] Attending Attending ID: [id number] Completed Time: 05/06/2014 1:51 PM Dictated Time: 05/06/2014 3:17 PM Transcribed Time: 05/06/2014 5:02 PM Signed by: FLO SENIOR on 05/07/2014 08:10 AM Report To 1 ID: Report To 1 Name: , Report To 1 FAX: Report To 2 ID: Report To 2 Name: , Report To 2 FAX: Report To 3 ID: Report To 3 Name: , Report To 3 FAX: NextGen Order #: Historical Provider MD SHAY XR PROCEDURES Final R esult documented in this encounter Visit Diagnoses Diagnosis Arthrodesis status documented in this encounter
--- OUTSIDE RECORDS SUMMARY | 2024-04-17 11:52 | XMS_ITS | Encounter Summary ---
Author Organization [facility] Facility Care Team Providers Care Composite Engineer Name Role Phone Unavailable Primary Care Provider Unavailabl e Encounter Details Date Type Department Care Team (Late st Contact Info) Description 03/18/2014 1:00 PM CORRECTIONAL FACILITY PSYCHIATRIST - 03/18/2014 11:59 PM CORRECTIONAL FACILITY PSYCHIATRIST Hospital Encounter [facility] Jack Garza MD [address] [facility] [address] [address] [place] [address] Arthrodesis status Social History Tobacco Use Types Packs/Day Years Used Date Smoking Tobacco: Never Assessed Comments Unknown Sex and Gender Information Value Date Recorded Sex Assigned at Not on file Legal Sex Female 3:22 AM CORRECTIONAL FACILITY PSYCHIATRIST Gender Identity Not on file Sexual Orientation Not on file documented as of this encounter Plan of Treatment Not on file documented as of this encounter Procedures Procedure Name Priority Date/Time Associated Diagnosis Comments XR SPINE LUMBAR 2 OR 3 VIEWS Routine 03/18/2014 1:26 PM CORRECTIONAL FACILITY PSYCHIATRIST documented in this encounter Results * XR Spine Lumbar 2 Or 3 View (03/18/2014 1:26 PM CORRECTIONAL FACILITY PSYCHIATRIST) Anatomical Region Laterality Modality Spine N/A Radiographic Alexsandra ging 03/18/2014 1:26 PM CORRECTIONAL FACILITY PSYCHIATRIST Narrative 03/18/2014 4:56 PM CORRECTIONAL FACILITY PSYCHIATRIST Lumbar spine, 3 views HISTORY: ??Status post lumbar fusion V45.4, arthrodesis status. Three views of the lumbar spine reveal transpedicular screws at the L3, L4, L5 and S1 levels. ??Vertical fusion rods extend between them. ?? Intervertebral spacer devices are noted at the L3-L4, L4-L5 and L5-S1 levels. ??The metallic hardware appears to be structurally intact. ??No evidence of loosening is appreciated. ??Grade 1 spondylolisthesis of L5 anterior to S1 is noted and is not significantly changed compared to the previous study of 02/04/2014. ??The patient has undergone a decompressive laminectomy at the L4-L5 level. ?? IMPRESSION: 1. ??Hardware fixation and decompression of the lower lumbar spine which is within expected limits and unchanged in alignment compared to the previous study. 2. ??Anterolisthesis of L5 anterior to S1 which is unchanged compared to the previous study. FS:llc Radiologist: STEPHEN CAREY MD ?? Attending: ??JACK GARZA MD Requesting: JACK GARZA MD Requesting Fax: ?? Requesting ID: [id number] Attending Fax: ?? Attending ID: ?? [id number] Completed Time: ?? 03/18/2014 1:26 PM Dictated Time: ?03/18/2014 2:30 PM Transcribed Time: 03/18/2014 2:39 PM Signed by: ?STEPHEN CAREY MD ?? on 03/18/2014 4:56 PM Report To 1 ID: Report To 1 Name: , Report To 1 FAX: Report To 2 ID: Report To 2 Name: , Report To 2 FAX: Report To 3 ID: Report To 3 Name: , Report To 3 FAX: NextGen Order #: Procedure Note Provider, MD Darwin - 08/25/2016 Lumbar spine, 3 views HISTORY: Status post lumbar fusion V45.4, arthrodesis status. Three views of the lumbar spine reveal transpedicular screws at the L3, L4, L5 and S1 levels. Vertical fusion rods extend between them. Intervertebral spacer devices are noted at the L3-L4, L4-L5 and L5-S1 levels. The metallic hardware appears to be structurally intact. No evidence of loosening is appreciated. Grade 1 spondylolisthesis of L5 anterior to S1 is noted and is not significantly changed compared to the previous study of 02/04/2014. The patient has undergone a decompressive laminectomy at the L4-L5 level. IMPRESSION: 1. Hardware fixation and decompression of the lower lumbar spine which is within expected limits and unchanged in alignment compared to the previous study. 2. Anterolisthesis of L5 anterior to S1 which is unchanged compared to the previous study. FS:llc Radiologist: STEPHEN CAREY MD Attending: JACK GARZA MD Requesting: JACK GARZA MD Requesting Requesting ID: [id number] Attending Attending ID: [id number] Completed Time: 03/18/2014 1:26 PM Dictated Time: 03/18/2014 2:30 PM Transcribed Time: 03/18/2014 2:39 PM Signed by: STEPHEN CAREY MD on 03/18/2014 4:56 PM Report To 1 ID: Report To [...]
--- OUTSIDE RECORDS SUMMARY | 2024-04-17 11:52 | XMS_ITS | Encounter Summary ---
Author Organization [facility] Care Team Providers Care [employer] Name Role Phone Unavailable Primary Care Provider Unavailabl e Encounter Details Date Type Department Care Team (Late st Contact Info) Description 01/08/2014 12:11 PM CDT - 01/08/2014 11:59 PM CDT Hospital Encounter [facility] Jack Garza MD [address] [place] [address] Arthrodesis status Social History Tobacco Use Types Packs/Day Years Used Date Smoking Tobacco: Never Assessed Comments Unknown Sex and Gender Information Value Date Recorded Sex Assigned at Not on file Legal Sex Female 3:22 AM [employer] Gender Identity Not on file Sexual Orientation Not on file documented as of this encounter Plan of Treatment Not on file documented as of this encounter Procedures Procedure Name Priority Date/Time Associated Diagnosis Comments XR SPINE LUMBAR 2 OR 3 VIEWS Routine 01/08/2014 12:55 PM CDT documented in this encounter Results * XR Spine Lumbar 2 Or 3 View (01/08/2014 12:55 PM CDT) Anatomical Region Laterality Modality Spine N/A Radiographic Alexsandra ging 01/08/2014 12:5 5 PM CDT Narrative 01/09/2014 10:02 AM CDT Examination: Lumbar spine two or three views DATE: 01/08/2014. HISTORY: Arthrodesis status. Fusion. FINDINGS: Frontal, lateral and coned-down lateral views of the lumbar spine are submitted. There has been posterior instrumented lumbar fusion procedure performed from L3 through S1. Pedicle screws and vertically connecting rods are in place. Anterior interbody bone graft is in place at L3-L4, L4-L5 and L5-S1. L4 laminectomy defect is noted as well. No compression deformity. There is grade 1 anterolisthesis of L5 upon S1. Correlate with preoperative imaging. IMPRESSION: 1. Posterior instrumented lumbar fusion procedure with anterior interbody bone graft at each level extending from L3 through S1. 2. Grade 1 anterolisthesis L5 upon S1. ?? ILDA/tab Radiologist: SUMAN MORRISON M.D. ?? Attending: ??JACK GARZA MD Requesting: JACK GARZA MD Requesting Fax: ?? Requesting ID: [id number] Attending Fax: ?? Attending ID: ?? [id number] Completed Time: ?? 01/08/2014 12:55 AM Dictated Time: ?01/08/2014 3:51 PM Transcribed Time: 01/08/2014 7:27 PM Signed by: ?SUMAN MORRISON ??Ady on 01/09/2014 10:02 AM Report To 1 ID: Report To 1 Name: , Report To 1 FAX: Report To 2 ID: Report To 2 Name: , Report To 2 FAX: Report To 3 ID: Report To 3 Name: , Report To 3 FAX: NextGen Order #: Procedure Note Provider, MD Darwin - 08/25/2016 Examination: Lumbar spine two or three views DATE: 01/08/2014. HISTORY: Arthrodesis status. Fusion. FINDINGS: Frontal, lateral and coned-down lateral views of the lumbar spine are submitted. There has been posterior instrumented lumbar fusion procedure performed from L3 through S1. Pedicle screws and vertically connecting rods are in place. Anterior interbody bone graft is in place at L3-L4, L4-L5 and L5-S1. L4 laminectomy defect is noted as well. No compression deformity. There is grade 1 anterolisthesis of L5 upon S1. Correlate with preoperative imaging. IMPRESSION: 1. Posterior instrumented lumbar fusion procedure with anterior interbody bone graft at each level extending from L3 through S1. 2. Grade 1 anterolisthesis L5 upon S1. ILDA/tab Radiologist: SUMAN MORRISON M.D. Attending: JACK GARZA MD Requesting: JACK GARZA MD Requesting Requesting ID: [id number] Attending Attending ID: [id number] Completed Time: 01/08/2014 12:55 AM Dictated Time: 01/08/2014 3:51 PM Transcribed Time: 01/08/2014 7:27 PM Signed by: SUMAN MORRISON M.D. on 01/09/2014 10:02 AM Report To 1 ID: Report To [...]
--- OUTSIDE RECORDS SUMMARY | 2024-04-17 11:52 | XMS_ITS | Encounter Summary ---
Author Organization [facility] Facility Care Team Providers Care Director Of Patient Safety Name Role Phone Unavailable Primary Care Provider Unavailabl e Encounter Details Date Type Department Care Team (Latest Contact Info) Description 12/02/2013 5:11 AM CDT - 12/04/2013 4:30 PM CDT Hospital Encounter [facility] Kristopher Greer MD [address] [place] [address] Spinal stenosis of lumbar region without neurogenic claudication; Acute posthemorrhagic anemia; Degeneration of lumbar or lumbosacral intervertebral disc; Acquired spondylolisthesis; Displacement of lumbar intervertebral disc without myelopathy; Hypothyroidism; Other and unspecified hyperlipidemia; Essential hypertension; Other chronic pain; Difficulty in walking; Disorder of skin and subcutaneous tissue; Other depressive disorder; Acquired absence of both cervix and uterus; Other postprocedural states; Tubal ligation status; Cataract extraction status; Osteoarthrosis; Personal history of tobacco use, presenting hazards to health Social History Tobacco Use Types Packs/Day Years Used Date Smoking Tobacco: Never Assessed Comments Unknown Sex and Gender Information Value Date Recorded Sex Assigned at Not on file 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 Gender Identity Not on file Sexual Orientation Not on file documented as of this encounter Last Filed Vital Signs Vital Sign Reading Time Taken Comments Blood Pressure 134/79 12/04/2013 4:25 PM CDT Pulse 94 12/04/2013 4:25 PM CDT Temperature - - Respiratory Rate - - Oxygen Saturation - - Inhaled Oxygen Concentration - - Weight 65.2 kg (143 lb 11.8 oz) 014 11:13 AM CDT Height 160 cm (5' 2.99 ) 11/06/2013 11: 13 AM CDT Body Mass Index 25.47 11/06/2013 11:13 AM CDT documented in this encounter Discharge Summaries * Darwin Drake MD - 12/04/2013 12:00 AM CDT Patient: GEORGIANA BOND Account: [id number] Room No: 2415-A : 1950 Proc. Date: Attending: KRISTOPHER GREER MD Admit Date: 12/02/2013 Dictating: KRISTOPHER GREER MD Disch. Date: 12/04/2013 Patient Type: IP DIAGNOSIS ON ADMISSION: Lumbar spinal stenosis of L3-4, L4-5, and L5-S1. DIAGNOSIS ON DISCHARGE: Lumbar spinal stenosis of L3-4, L4-5, and L5-S1. PROCEDURE PERFORMED: L3-4, L4-5, L5-S1 decompressive laminectomy and fusion on 12/02/2013. HOSPITAL COURSE: The patient was admitted for same day surgery. She tolerated the procedure well. She was transferred to the surgical floor postoperative. Activity was gradually increased. Her wound healed without signs of infection. She was discharged to a nursing facility on 12/04/2013. She was to follow up in the office in 1 week. 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 Date: Patient Type: PHYSICAL MEDICINE AND REHABILITATION CONSULT REASON FOR CONSULTATION: Evaluation for acute inpatient rehab following L3 to S1 decompressive laminectomy and fusion. HISTORY OF PRESENT ILLNESS: Ms. Bond is a 63-year-old female admitted to [facility] on 12/02/2013 for an elective L3 to S1 decompressive laminectomy and fusion. The patient has at least a 1-year history of lower extremity pain and progressive weakness in bilateral lower extremities. The pain rolls down from lower back to buttocks to the back of the leg into her ankle and foot. The patient also complains of progressive weakness and numbness. The numbness is in bilateral posterior calf and soles. The patient failed conservative management. The surgery was done by Dr. Greer. PAST MEDICAL HISTORY: 1. Arthritis. 2. Cataracts. 3. Chickenpox. 4. Depression. 5. Thyroid problems. 6. Ulcers. PAST SURGICAL HISTORY: 1. Hysterectomy. 2. Neck surgery. 3. Tubal ligation. ALLERGIES: ADHESIVE TAPE. MEDICATIONS: 1. [place] 1 tab 3 times a day. 2. Amitriptyline 20 mg daily. 3. Flexeril 10 mg 3 times a day. 4. Colace 100 mg twice a day. 5. Fluoxetine 40 mg daily. 6. Levothyroxine 50 mcg daily. 7. Simvastatin 80 mg daily. 8. Valacyclovir 500 mg daily. SOCIAL HISTORY: The patient lives in a house, no stairs with . No smoking, drinking or drugs. The patient's activity has declined over the last year secondary to the pain and weakness. CURRENT FUNCTIONAL STATUS: The patient was independent with all activities except high level IADLs, but the patient was only ambulating household distances. CURRENT FUNCTIONAL STATUS: Bed mobility, moderate assist. Transfers: Min assist. Ambulating: Min assist with wheeled walker 25 feet. REVIEW OF SYSTEMS: 10-point review of systems not positive except for HPI. PI: The patient's last bowel movement on Monday. The patient is having increased post-surgical pain. She denies fevers, chills, nausea, vomiting, diarrhea, dizziness, falls, shortness of breath or chest pain. PHYSICAL EXAMINATION: VITALS: Blood pressure 136/83, heart rate 95, respiratory 18, temperature 36.8, 02 saturation 99 on room air. GENERAL: No acute distress. Alert and oriented to person, place and time. HEART: Regular rate and rhythm. LUNGS: Clear to auscultation. ABDOMEN: Bowel sounds positive. No tenderness to palpation. EXTREMITIES: Deep tendon reflex is symmetrical. Sensation decreased in bilateral posterior calf and sole of foot. No clonus or [place] noted. Strength about 4-/5, bilateral hip flexors, 4/5 in bilateral knee extensors, dorsiflexors and plantar flexors. ASSESSMENT AND PLAN: This is a 63-year-old female status post lumbar stenosis, status post decompression and fusion by Dr. Greer. The patient is still having pain and weakness requiring assistance prior to being discharged home. The patient will benefit from acute inpatient rehab to work on transfers, ADLs, mobility, pain control, and endurance. We will continue to follow. BETHANY REYES MD JM/jt TD: 12/04/2013 10:43 Authenticated and Edited by Bethany Reyes MD On 12/05/13 12:43:40 PM * Provider, MD Darwin - 12/03/2013 12:00 AM CDT Patient: GEORGIANA BOND Account: [id number] Room No: 2415-A : 1950 Consult Date: 12/03/2013 Attending: KRISTOPHER GREER MD Admit Date: 12/02/2013 Consult.: DO Robert HOPE. Date: Patient Type: Primary Care Doctor: Ronald Zavala MD Requesting Physician: Kristopher Greer MD Reason For Consultation: Medical management. History of Present Illness: Ms Georgiana Bond is a 63-year-old female with history of severe degenerative disk disease and lumbar stenosis who has had worsening of her lower back pain with radiculopathy to her left buttock and leg. She failed outpatient management and was admitted for laminectomy, which was undertaken yesterday. She had no immediate complications. Up until this admission, she has denied any headaches, vision change, focal neurologic deficit, rash, sore throat, fevers, chest pain, shortness of breath, abdominal pain, nausea, vomiting, diarrhea, constipation, hematuria, dysuria, hematochezia, melena, polyuria/polydipsia or suicidal/homicidal ideation. She does report having had weight gain recently. Medical History: 1. Lumbar stenosis L3-L4, L4-L5, and L5-S1, status post laminectomy and posterior fusion. 2. Depression. 3. Hypothyroidism. 4. Dyslipidemia. 5. Hypertension. 6. Cataract removal. 7. Hysterectomy. 8. Neck surgery. 9. Tubal ligation. 10. Unknown vesicular disease. The patient is unwilling to elaborate, considering visitors in the room. However, she is on Valtrex for this issue. Social History: She drinks alcohol very rarely. She denies any tobacco or drug use. She is able to care for ADLs but does have difficulty walking secondary to her chronic back pain. Family History: CAD, stroke, diabetes, unknown cancer. Allergies: Adhesive tape causes rash. Home Medications: 1. Celebrex 20 mg p.o. daily. 2. [place] 10/325 p.o. 3 times daily. 3. Prozac 40 mg p.o. nightly at bedtime. 4. Synthroid 50 mcg p.o. daily. 5. Zocor 80 mg p.o. daily. 6. Cyclobenzaprine 10 mg p.o. t.i.d. 7. Elavil 20 mg p.o. nightly at bedtime. 8. Lisinopril 20 mg p.o. daily. 9. Valacyclovir 500 mg p.o. daily. Physical Examination: Vital Signs: Blood pressure 127/73 with documented low of 95/56 overnight, pulse 100, respirations 20, temperature 98.8, oxygen saturation 100% on 2L nasal cannula. General: The patient is in no acute distress. She is alert and oriented x3. Heart: Regular rate and rhythm with no appreciable rubs or murmurs. Lungs: Clear to auscultation bilaterally with no wheeze or rhonchi. Abdomen: Soft, nontender, nondistended with no rebound, guarding, rigidity. Extremities: No cyanosis. No edema. Neck: Supple. Lymphatics: No adenopathy. HEENT: No scleral icterus noted. Neurologic: Cranial nerves II through XII are grossly intact. Laboratories: WBC 12.8, hemoglobin 7.1, platelets 234,000. Hemoglobin on December 02, 2012, was 9.1, and on November 06, 2013, it was 12.8. Lumbar spine postprocedure shows laminectomy and fusion with instrumentation from L4 through S1. Assessment and Plan: 1. Hypertension. The patient's blood pressure was borderline low documented overnight, possibly secondary to pain medication. In the interim, her lisinopril has been held. It is likely that she may be able to resume this on discharge. However, for now, I will continue to hold this medication. I will change her diet to a low-sodium, low-cholesterol diet. 2. Dyslipidemia. I will continue the patient's home statin and start her on a low-sodium, low-cholesterol diet. 3. Acute blood-loss anemia. She is to receive 2 units of red blood cells today. However, there is only 500 mL of estimated blood loss documented during her procedure. I will order hemoglobin and hematocrit for tomorrow morning also. 4. Lumbar stenosis L3-L4, L4,-L5, L4-S1, status post laminectomy December 02, 2013. Treatment will continue per Dr Greer. 5. Unknown skin vesicular disease. The patient was unwilling to elaborate on the secondary to visitors in the room. However, I will continue her home Valtrex so as to help prevent any outbreak during her hospitalization. 6. Nutrition/Prophylaxis. The patient is on sequential compression devices for prophylaxis and I will change her diet to low sodium, low cholesterol. Thank you for the consultation. I will follow along with you during her hospital course. JUAN PABLO BURLESON DO BA/tanvir TD: 12/03/2013 14:04 CC: RONALD ZAVALA M.D. Authenticated and Edited by Juan Pablo Burleson D.O. On 01/02/14 7:39:34 PM documented in this encounter Miscellaneous Notes * Admission Note - ProviderDarwin MD - 12/02/2013 12:00 AM CDT Patient: GEORGIANA BOND Account: [id number] Room No: 2415-A : 1950 Admit Date: 12/02/2013 Attending: KRISTOPHER GREER MD Disch. Date: Dictating: KRISTOPHER GREER MD Patient Type: IP DIAGNOSIS ON ADMISSION: Severe degenerative disc disease of the lumbar spine, lateral recess stenosis, lumbar spinal stenosis L3-4, L4-5, L5-S1, grade 1-2 spondylolisthesis L5-S1, facet hypertrophy L3-4, L4-5 and L5-S1 and bilateral foraminal stenosis L3-4, L4-5 and L5-S1. HISTORY OF THE PRESENT ILLNESS: The patient is a 63 year old woman who is admitted for same day surgery, L3-4, L4-5 and L5-S1 decompressive laminectomy and fusion. She presents with more than a one year history of progressive lower back pain and pain under her buttocks particularly down the left leg, back of her left leg into her calf and somewhat into her foot and ankle. Describes aching and occasional numbness and tingling without discomfort. She states this pain came on for no apparent reason. She reports that she has had conservative measures including physical therapy and pain management treatment and epidural injections but continues to have worsening of her discomfort. Her pain is brought on with standing and walking, she can only walk about five to ten minutes and then she has to lean forward or sit down to rest. She also has pain with coughing and sneezing. She reports that her pain builds throughout the day and she finds that she is limited in her activities, is unable to walk or get around to do housework like she did about this time last year. Workup has included a MRI of the lumbar spine which reveals grade 1 disease spondylolisthesis at the L5-S1 level, degenerative disc disease at L3-4, L4-5 and L5-S1, disc protrusion at L3-4 and L4-5 with significant lateral recess stenosis and bilateral foraminal stenosis L3-S1. CURRENT MEDICATIONS: 1. Amitriptyline 10 mg tablets. 2. Celebrex 300 mg capsules. 3. Fluoxetine 20 mg capsules. 4. [place] 5/325 mg. 5. Flexeril 10 mg tablets. 6. Lisinopril. 7. Synthroid. 8. Zocor. PAST MEDICAL HISTORY: 1. Arthritis. 2. Cataracts. 3. Chicken pox. 4. Miscarriage. 5. Psychiatric. 6. Thyroid problems. 7. Ulcers. PAST SURGICAL HISTORY: 1. Hysterectomy. 2. Neck surgery. 3. Tubal ligation. PHYSICAL EXAMINATION: VITAL SIGNS: She is 5 feet 3 inches and weighs 133 pounds, heart rate 86, blood pressure 136/89. NEUROLOGICAL EXAM: She is alert, cranial nerves II through XII are grossly intact. 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 Sensory examination is intact to light touch and pinprick throughout. Reflexes are 1 and symmetric at biceps, triceps, wrist, patella and Achilles. Her gait is steady. She has no pain on straight leg raising. IMAGING: Review of a MRI of the lumbar spine July 24, 2013 reveal severe degenerative disc disease at L3-4, disc space collapse, moderate to severe foraminal stenosis noted by marked facet hypertrophy. She has Modic type endplate change at L3-4, broad base posterior disc herniation at L4-5, grade 1-2 spondylolisthesis at L5-S1 with Modic type endplate offset measuring 7 mm, bilateral foraminal stenosis secondary to spondylolisthesis, foraminal stenosis, facet hypertrophy and degenerative disc changes. ASSESSMENT AND PLAN: This is a 63-year-old woman who presents with moderate to severe degenerative disc disease at the lumbar spine with lateral recess stenosis, disc space collapse particularly at L3-4, disc protrusion at L3-4 and L4-5, grade 1-2 spondylolisthesis at L5-S1 and bilateral foraminal stenosis, facet hypertrophy L3-4, L4-5 and L5-S1 and lumbar stenosis. She has had a long trial of conservative treatment but continues to have significant discomfort with limitation of her activities. The treatment options were discussed including continued conservative therapy versus surgery. The risks of surgery were discussed and include but are not limited to bleeding, infection, injury to the nerves resulting in weakness, numbness, persistent pain, lack of guarantee of good result, risk of nonunion and hardware failure, risk of general anesthesia and positioning. She seemed to understand these risks and wished to proceed with surgery. KRISTOPHER GREER MD DK/mp TD: 11/29/2013 12:01 Authenticated by Kristopher Greer MD On 12/24/2013 04:48:05 PM * Op Note - Provider, MD Darwin - 12/02/2013 12:00 AM CDT Patient: GEORGIANA BOND Account: [id number] Room No: 2415-A : 1950 Proc. Date: 12/02/2013 Surgeon: KRISTOPHER GREER MD Admit Date: 12/02/2013 Disch. Date: Patient Type: IP Preoperative Diagnoses: 1. Lumbar stenosis, L3-4, L4-5, and L5-S1. 2. Lumbar lateral recess stenosis, L3-4, L4-5, and L5-S1. 3. Degenerative disk disease, L3-4, L4-5, and L5-S1. Postoperative Diagnoses: 1. Lumbar stenosis, L3-4, L4-5, and L5-S1. 2. Lumbar lateral recess stenosis, L3-4, L4-5, and L5-S1. 3. Degenerative disk disease, L3-4, L4-5, and L5-S1. Procedure Performed: Lumbar decompressive laminectomy, facetectomies at L3-4, L4-5, and L5-S1, diskectomy, posterior lumbar interbody fusion using local autograft and Aleutian interbody cages, pedicle screw stabilization using K2M pedicle screws at L3, L4, L5, and S1. Surgeon: Kristopher Greer MD Anesthesia: General endotracheal anesthesia. Indication for Procedure: The patient is a 63-year-old woman who presents with a long history of lower back pain, worsening pain to her legs and buttocks. She had a long trial of conservative treatment, including physical therapy and epidural injections without significant improvement in her symptoms and her symptoms have gradually worsened. She had an MRI, which revealed recess stenosis, degenerative disk disease as well as spondylolisthesis at the L5-S1 level. The treatment options were discussed with the patient including continued conservative therapy versus surgery. The risks of surgery were discussed to include but not be limited to, bleeding, infection, injury to nerves resulting in weakness, numbness, persistent pain, lack of guarantee of good result, risk of nonunion, hardware failure, risk of anesthesia, and positioning. She seemed to understand these and wished to proceed with surgery. Procedure: After adequate general endotracheal anesthesia was set, the patient was placed in the prone position on the Jay table. All bony prominences were padded. The lumbar area was prepped with Duraprep. Sterile drapes were applied. Marking pen used to desi out a linear incision in the lumbar spine. Marcaine 0.25% with epinephrine was used for local. A 10 blade was used to make an incision in the skin down to the lumbodorsal fascia. The lumbodorsal fascia was incised with Bovie cautery. Dissection then continued in a subperiosteal manner to expose the spinous processes of L3, L4, L5, and S1, as well as the pars at L3, L4, L5 and the sacral ala. Self-retaining retractors were placed. Fluoroscopy used for localization. The Midas Heber drill was then used to fashion entry sites for pedicle screw placement at L3, L4, L5 and S1 using cortical bone trajectory. These were then tapped and checked with fluoroscopy. The spinous process partially of L3, L4, and L5 were then removed with the [facility] spine cutter. Laminectomy was carried out using the Midas Heber drill and Leksell and Kerrison rongeurs. This allowed for decompression of the thecal sac. Facetectomies were carried out at L3-4, L4-5 and L5-S1, and this allowed for decompression to the lateral recess. The ligamentum flavum was incised with a curette and then removed with Kerrison rongeur. Epidural fat and draining veins were cauterized with bipolar cautery. Thecal sac was retracted from left to right at the L5-S1 level. Disk anulus was incised with an 11 blade. Disk material was removed using curettes and pituitary rongeurs. The endplates were decorticated and loose interbody cage was packed with local autograft. The autograft was also placed in the disk space, and the Aleutian interbody cage was placed. There appeared to be a tight fit. Thecal sac was then retracted from left to right at the L4-5 level. Disk anulus was incised with a 11 blade. Disk material was removed using curettes and pituitary rongeurs. The endplates were decorticated. Local autograft was then placed in the disk space. Autograft was also placed in the 12 x 22 mm Aleutian cage and then placed in the disk space. There appeared to be a tight fit. Thecal sac was then retracted from left to right at the L3-4 level. Disk anulus was incised with 11 blade and disk material removed using curettes and pituitary rongeurs. The endplates were decorticated and bone graft was placed in the disk space, and then placed in interbody cage and then placed on the left side at L3-4. There appeared to be a tight fit. Pedicle screws were then placed on the left side at L3, L4, L5 and S1. Each pedicle screw was tested using evoked EMGs. Thecal sac was then retracted from right to left at the L5-S1 level. Disk anulus was incised with an 11 blade. Disk material was removed using curettes and pituitary rongeurs. The endplates were decorticated and Aleutian cage of 11 x 22 mm was packed with local autograft and then placed in the disk space. There appeared to be a tight fit. The thecal sac was then retracted from right to left at the L4-5 level. Disk anulus was incised with 11 blade and disk material removed using curettes and pituitary rongeurs. The endplates were decorticated and local autograft was then placed in the disk space. The autograft was then placed in an interbody cage and then placed. There appeared to be a tight fit. The thecal sac was then retracted from right to left at the L3-4 level. Disk anulus was incised with an 11 blade and disk material was removed using curettes and pituitary rongeurs. The endplates were decorticated. Local autograft was placed in the disk space and autograft was also placed in Aleutian interbody cage and then placed on the right side at L3-4. There appeared to be a tight fit. The K2M pedicle screws were then placed at L3, L4, L5, and S1. Each was tested using evoked EMGs. The screws were then connected with cobalt chromium rods and then tightened to the appropriate torque. The wound was irrigated with bacitracin containing solution. The wound was then closed. A Hemovac drain was placed. The fascia was closed with 0 Vicryl sutures, dermis was closed with 2-0 Vicryl sutures, and elvia used for the skin. Sterile dressing was applied. The patient tolerated this procedure well. She was extubated at the end of the procedure, and transferred to postanesthesia recovery room in stable condition. All sponge and instrument counts were correct x2. Estimated blood loss is 500 mL. KRISTOPHER GREER MD DK/mt TD: 12/03/2013 03:55 Authenticated by Kristopher Greer MD On 12/24/2013 04:48:11 PM documented in this encounter Plan of Treatment Not on file documented as of this encounter Procedures Procedure Name Priority Date/Time Associated Diagnosis Comments BLOOD HEMOGLOBIN, HEMATOCRIT Routine 12/04/2013 6:27 AM CDT DISCHARGE LABORATORY CUMULATIVE REPORT 12/04/2013 BLOOD HEMOGLOBIN, HEMATOCRIT Routine 12/03/2013 1:55 PM CDT BLOOD CELL COUNT (CBC), MORPHOLOGIC EXAM Routine 12/03/2013 6:37 AM CDT BLOOD HEMOGLOBIN Routine 12/02/2013 3:44 PM CDT BLOOD HEMATOCRIT Routine 12/02/2013 3:44 PM CDT BLOOD CELL COUNT (CBC), MORPHOLOGIC EXAM Routine 12/02/2013 12:37 PM CDT XR SPINE LUMBAR 2 OR 3 VIEWS Routine 12/02/2013 12:37 PM CDT SURGICAL PATHOLOGY 12/02/2013 documented in this encounter Results * (ABNORMAL) Blood hemoglobin, hematocrit (12/04/2013 6:27 AM CDT) Hgb 8.3(L) 11.5 - 16.0 g/dl HISTORICAL RESULTS Comment:As of May 15, the hemoglobin alert value has changed from less than 7.0 g/dL to less than or equal to 6.5 g/dL, first time per admission. Hct 24.3(L) 34.0 - 48.0 % HISTORICAL RESULTS Comment:As of May 15, the hematocrit alert value has changed from less than 21% to less than or equal to 19.5%, first time per admission. Blood specimen (specimen) 12/04/2013 6:27 AM CDT Juan Pablo Burleson DO LAB BLOOD ORDERABLES Jesi l Result Performing Organization Address City/[facility] Co de Phone Number HISTORICAL RESULTS * DISCHARGE LABORATORY CUMULATIVE REPORT (12/04/2013) Narrative 12/04/2013 Ordered by an unspecified provider. Historical Provider LAB BLOOD ORDERABLES Jesi l Result * (ABNORMAL) Blood hemoglobin, hematocrit (12/03/2013 1:55 PM CDT) Hgb 8.7(L) 11.5 - 16.0 g/dl HISTORICAL RESULTS Hct 25.0(L) 34.0 - 48.0 % HISTORICAL RESULTS Blood specimen (specimen) 12/03/2013 1:55 PM CDT Kristopher Greer MD LAB BLOOD ORDERABLES Jesi l Result HISTORICAL RESULTS * (ABNORMAL) Blood cell count (CBC), morphologic exam (12/03/2013 6:37 AM CDT) WBC 12.8(H) 4.5 - 11.0 K/cumm HISTORICAL RESULTS RBC 2.18(L) 3.80 - 5.40 M/cumm HISTORICAL RESULTS Hgb 7.1(L) 11.5 - 16.0 g/dl HISTORICAL RESULTS Hct 21.0(L) 34.0 - 48.0 % HISTORICAL RESULTS MCV 96.5 80.0 - 100.0 fl HISTORICAL RESULTS MCH 32.8 27.0 - 33.0 pg HISTORICAL RESULTS MCHC 33.9 32.0 - 36.0 g/dl HISTORICAL RESULTS Rdw 12.9 11.5 - 14.5 % HISTORICAL RESULTS Platelets 234 140 - 400 K/cumm HISTORICAL RESULTS MPV 6.9(L) 7.4 - 10.4 fl HISTORICAL RESULTS Neutrophils 86.0(H) 42.0 - 75.0 % HISTORICAL RESULTS Lymphocytes 7.8(L) 21.0 - 51.0 % HISTORICAL RESULTS Monos 6.2 2.0 - 9.0 % HISTORICAL RESULTS Eosinophils 0.0 0.0 - 10.0 % HISTORICAL RESULTS Basophils 0.0 0.0 - 1.0 % HISTORICAL RESULTS Neutrophils, abs 11.0(H) 1.8 - 7.7 K/cumm HISTORICAL RESULTS Lymphocytes, abs 1.0 1.0 - 4.8 K/cumm HISTORICAL RESULTS Monocytes, absolute 0.8 0.0 - 0.8 K/cumm HISTORICAL RESULTS Eosinophils, abs 0.0 0.0 - 0.5 K/cumm HISTORICAL RESULTS Basophils, abs 0.0 0.0 - 0.2 K/cumm HISTORICAL RESULTS Blood specimen (specimen) 12/03/2013 6:37 AM CDT us Kristopher Greer MD LAB BLOOD ORDERABLES Jesi l Result HISTORICAL RESULTS * (ABNORMAL) Blood hematocrit (12/02/2013 3:44 PM CDT) Hct 27.4(L) 34.0 - 48.0 % HISTORICAL RESULTS Blood specimen (specimen) 12/02/2013 3:[address] MD LAB BLOOD ORDERABLES Final Resu lt HISTORICAL RESULTS * (ABNORMAL) Blood hemoglobin (12/02/2013 3:44 PM CDT) Hgb 9.1(L) 11.5 - 16.0 g/dl HISTORICAL RESULTS Blood specimen (specimen) 12/02/2013 3:[address] MD LAB BLOOD ORDERABLES Final Resu lt Performing Organization Address City/[facility] Co de Phone Number HISTORICAL RESULTS * (ABNORMAL) Blood cell count (CBC), morphologic exam (12/02/2013 12:37 PM CDT) WBC 14.3(H) 4.5 - 11.0 K/cumm HISTORICAL RESULTS RBC 2.92(L) 3.80 - 5.40 M/cumm HISTORICAL RESULTS Hgb 9.6(L) 11.5 - 16.0 g/dl HISTORICAL RESULTS Hct 28.1(L) 34.0 - 48.0 % HISTORICAL RESULTS MCV 96.1 80.0 - 100.0 fl HISTORICAL RESULTS MCH 32.8 27.0 - 33.0 pg HISTORICAL RESULTS MCHC 34.1 32.0 - 36.0 g/dl HISTORICAL RESULTS Rdw 12.4 11.5 - 14.5 % HISTORICAL RESULTS Platelets 269 140 - 400 K/cumm HISTORICAL RESULTS MPV 7.2(L) 7.4 - 10.4 fl HISTORICAL RESULTS Neutrophils 94.8(H) 42.0 - 75.0 % HISTORICAL RESULTS Lymphocytes 4.5(L) 21.0 - 51.0 % HISTORICAL RESULTS Monos 0.6(L) 2.0 - 9.0 % HISTORICAL RESULTS Eosinophils 0.1 0.0 - 10.0 % HISTORICAL RESULTS Basophils 0.0 0.0 - 1.0 % HISTORICAL RESULTS Neutrophils, abs 13.5(H) 1.8 - 7.7 K/cumm HISTORICAL RESULTS Lymphocytes, abs 0.6(L) 1.0 - 4.8 K/cumm HISTORICAL RESULTS Monocytes, absolute 0.1 0.0 - 0.8 K/cumm HISTORICAL RESULTS Eosinophils, abs 0.0 0.0 - 0.5 K/cumm HISTORICAL RESULTS Basophils, abs 0.0 0.0 - 0.2 K/cumm HISTORICAL RESULTS Blood specimen (specimen) 12/02/2013 12:37 PM CDT us Kristopher Greer MD LAB BLOOD ORDERABLES Jesi l Result HISTORICAL RESULTS * XR Spine Lumbar 2 Or 3 View (12/02/2013 12:37 PM CDT) Anatomical Region Laterality Modality Spine N/A Radiographic Alesxandra ging 12/02/2013 12:3 7 PM CDT Narrative 12/02/2013 4:43 PM CDT Lumbar spine two views HISTORY: Laminectomy and fusion. Intraoperative C-arm radiographs of the lumbar spine demonstrate evidence of laminectomy and fusion with instrumentation at L3-L4, L4-L5 and L5-S1. Bone graft markers project within the intervertebral disc spaces at each of these levels. Pedicle screws project in expected position at L3, L4, L5 and S1. Surgical retractors are in place. IMPRESSION: 1. Laminectomy and fusion with instrumentation from L4 through S1. ?? JN/tab Radiologist: SHANE DODGE ??M.D. ?? Attending: ??KRISTOPHER GREER MD Requesting: KRISTOPHER GREER MD Requesting Fax: ?? Requesting ID: [id number] Attending Fax: ?? Attending ID: ?? [id number] Completed Time: ?? 12/02/2013 12:37 AM Dictated Time: ?12/02/2013 4:21 PM Transcribed Time: 12/02/2013 4:33 PM Signed by: ?SHANE DODGE ?? M.D. on 12/02/2013 4:43 PM Report To 1 ID: Report To 1 Name: , Report To 1 FAX: Report To 2 ID: Report To 2 Name: , Report To 2 FAX: Report To 3 ID: Report To 3 Name: , Report To 3 FAX: NextGen Order #: Procedure Note ProviderDarwin MD - 08/25/2016 Lumbar spine two views HISTORY: Laminectomy and fusion. Intraoperative C-arm radiographs of the lumbar spine demonstrate evidence of laminectomy and fusion with instrumentation at L3-L4, L4-L5 and L5-S1. Bone graft markers project within the intervertebral disc spaces at each of these levels. Pedicle screws project in expected position at L3, L4, L5 and S1. Surgical retractors are in place. IMPRESSION: 1. Laminectomy and fusion with instrumentation from L4 through S1. JN/tab Radiologist: SHANE DODGE M.D. Attending: KRISTOPHER GREER MD Requesting: KRISTOPHER GREER MD Requesting Requesting ID: [id number] Attending Attending ID: [id number] Completed Time: 12/02/2013 12:37 AM Dictated Time: 12/02/2013 4:21 PM Transcribed Time: 12/02/2013 4:33 PM Signed by: SHANE DODGE M.D. on 12/02/2013 4:43 PM Report To 1 ID: Report To 1 Name: , Report To 1 FAX: Report To 2 ID: Report To 2 Name: , Report To 2 FAX: Report To 3 ID: Report To 3 Name: , Report To 3 FAX: NextGen Order #: Historical Provider IMG XR PROCEDURES Final R esult * Surgical pathology (12/02/2013) Narrative 12/02/2013 Ordered by an unspecified provider. Historical Provider LAB PATHOLOGY ORDERABLES Final Result documented in this encounter Visit Diagnoses Diagnosis Spinal stenosis of lumbar region without neurogenic claudication Acute posthemorrhagic anemia Degeneration of lumbar or lumbosacral intervertebral disc Acquired spondylolisthesis Displacement of lumbar intervertebral disc without myelopathy Hypothyroidism Unspecified hypothyroidism Other and unspecified hyperlipidemia Essential hypertension Unspecified essential hypertension Other chronic pain Difficulty in walking Disorder of skin and subcutaneous tissue Unspecified disorder of skin and subcutaneous tissue Other depressive disorder Acquired absence of both cervix and uterus Other postprocedural states Tubal ligation status Cataract extraction status Osteoarthrosis Osteoarthrosis, unspecified whether generalized or localized, unspecified site Personal history of tobacco use, presenting hazards to health documented in this encounter
--- OUTSIDE RECORDS SUMMARY | 2024-04-17 17:11 | XMS_ITS | Encounter Summary ---
Author Organization [facility] Address [address] [place] [address] Care Team Providers Care Change Number Operator Name Role Phone Gadiel Zavala MD Primary Care Provider [phone] Reason for Visit * Reason Comments Strabismus Encounter Details Date Type Department Care Team (Late st Contact Info) Description 08/10/2022 9:45 AM CDT Office Visit [facility] [address] [place] [address] Sin Romero MD [address] [place], [place] [phone] Consecutive exotropia of both eyes (Primary Dx); [...] Clear Clear Refraction Wearing Rx Sphere Cylinder [place] Add Right -0.75 +1.25 025 +2.50 Left [...] new glasses next time they are in [place]. F/u PRN for changes - if measurements are stable, can consider grinding in to glasses in the future(currently at upper limit of GI prism). If deviation increases, would stick with fresnel prism and consider surgery (guarded given past response with prior procedures). NEGRO Mauro (08/10/2022, 12:32) Patient seen and examined with director of purchasing Please see note for further details. I [...] surgery documented in this encounter Care Teams Change Number Operator Relationship Specialty Start Date End Date Gadiel Zavala MD [address] [place] [address] PCP - General 02/15/21 documented as of this encounter
--- OUTSIDE RECORDS SUMMARY | 2024-04-17 17:11 | XMS_ITS | Encounter Summary ---
Author Organization [facility] Address [address] [facility] [place] [address] Care Team Providers Care Dermatological Surgeon Name Role Phone Gadeil Zavala MD Primary Care Provider [phone] Reason for Visit * Reason Comments Follow-up Encounter Details Date Type Department Care Team (Late st Contact Info) Description 03/01/2022 11:00 AM CDT Office Visit [facility] [address] [place] [phone] Drew Green MD [address] [place] [address] [place] [address] Glaucoma suspect of both eyes [...] MOUTH ONCE DAILY IN THE MORNING ??? ttqxcvbi-mpjiaqgay-kyzfdlcb (Maxitrol) ophthalmic suspension Instill 1 (one) drop [...] Normal Normal Refraction Wearing Rx Sphere Cylinder [place] Add Right -0.75 +1.25 025 +2.50 Left [...] Romero as scheduled Fred Moore MD 03/01/2022 ND CUTTER Associated attestation - Drew Green MD - 03/20/2022 10:01 PM SECOND CUTTER I have examined the patient in person [...] disturbances documented in this encounter Care Teams Dermatological Surgeon Relationship Specialty Start Date End Date Gadiel Zavala MD [address] [place] [address] PCP - General 02/15/21 documented as of this encounter
--- OUTSIDE RECORDS SUMMARY | 2024-04-17 17:11 | XMS_ITS | Referral Summary ---
Author Organization [facility] Address [address] [place] [address] Care Team Providers Care Line Operator Name Role Phone Gadiel aZvala MD Primary Care Provider [phone] Source Comments [facility],non-owned Affiliates and Associated Physician Practices is amultiple site organization consisting of ambulatory clinics and hospital sitesin [place], [place], [place] and [place]. This disclosure is being madepursuant to the Care Everywhere program and may not contain all information available regarding this patient. Last updated 18.[facility] Encounters Date Type Department Care Team Description 02/07/2024 10:00 AM CDT Office Visit [facility] - Ophthalmology [address] [place] [phone] Sin Romero MD Consecutive esotropia (Primary Dx); [...] of Treatment Not on file Care Teams Line Operator Relationship Specialty Start Date End Date Gadiel Zavala MD [address] [place] [address] PCP - General 02/15/21
--- OUTSIDE RECORDS SUMMARY | 2024-04-17 17:11 | XMS_ITS | Encounter Summary ---
Author Organization [facility] Address [address] [facility] [place] [address] Care Team Providers Care Elder Counselor Name Role Phone Gadiel Zavala MD Primary Care Provider [phone] Reason for Visit * Reason Comments Double Vision Follow up Encounter Details Date Type Department Care Team (Late st Contact Info) Description 08/02/2023 8:30 AM CDT Office Visit [facility] - Ophthalmology [address] [place] [address] Sin Romero MD [address] [place] [address] Consecutive exotropia of both eyes (Primary Dx); [...] PCIOL PCIOL Refraction Wearing Rx Sphere Cylinder [place] Add Right -0.50 +0.75 020 +2.50 Left [...] (08/02/2023, 12:27) Patient seen and examined with route sales specialist Please see note for further details. I [...] surgery documented in this encounter Care Teams Elder Counselor Relationship Specialty Start Date End Date Gadiel Zavala MD [address] [place] [address] PCP - General 02/15/21 documented as of this encounter
--- OUTSIDE RECORDS SUMMARY | 2024-04-17 17:11 | XMS_ITS | Encounter Summary ---
Author Organization [facility] Address [address] [facility] [place] [address] Care Team Providers Care Calibration Tester Name Role Phone Gadiel Zavala MD Primary Care Provider [phone] Reason for Visit * Reason Comments Dry Eye Dry eye per Dr. Romero Encounter Details Date Type Department Care Team (Late [facility]) Description 01/27/2022 10:00 AM CDT Office Visit [facility] [address] [place] [phone] Drew Green MD [address] [place] [address] [place] [address] Meibomian gland disease, unspecified laterality [...] MOUTH ONCE DAILY IN THE MORNING ??? rdqgioqn-yrdwwjyuk-kxlnankl (Maxitrol) ophthalmic suspension Instill 1 (one) drop [...] Normal Normal Refraction Wearing Rx Sphere Cylinder [place] Add Horz Prism Right -0.75 +1.25 025 [...] Dr Peter Harrell MD Ophthalmology Resident Physician [facility] 01/27/2022 8:36 AM Associated attestation - Drew [...] surgery documented in this encounter Care Teams Calibration Tester Relationship Specialty Start Date End Date Gadiel Zavala MD [address] [facility] [address] [address] PCP - General 02/15/21 documented as of this encounter
--- OUTSIDE RECORDS SUMMARY | 2024-04-17 17:11 | XMS_ITS | Encounter Summary ---
Author Organization [facility] Address [address] [place] [address] Care Team Providers Care Rpg Programmer Analyst Name Role Phone Gadiel Zavala MD Primary Care Provider [phone] Encounter Details Date Type Department Care Team [...] on filedocumented in this encounter Care Teams Rpg Programmer Analyst Relationship Specialty Start Date End Date Gadiel Zavala MD [address] [place] [phone] PCP - General Family Practice 03/03/17 documented as of this encounter
--- OUTSIDE RECORDS SUMMARY | 2024-04-17 17:11 | XMS_ITS | Clinical Summary ---
Author Organization [facility] Address [address] [place] [address] Phone Care Team Providers Care Estimating Engineer Name Role Phone Gadiel Zavala MD Primary Care Provider [phone] Allergies Active Allergy Reactions Criticality Noted Date [...] tablet Take 50 mcg by mouth daily wig sales consultant. Active atorvastatin (LIPITOR) 20 mg tablet Take [...] mouth daily. Active naloxone (NARCAN) 4 mg/spray [place], Non-Aerosol EMERGENCY USE ONLY: Administer 1 spray [...] Comments Blood Pressure 122/80 06/14/2022 10:12 AM CLAIMS DIRECTOR Pulse 57 06/14/2022 10:12 AM CLAIMS DIRECTOR Temperature 36.7 ??C (98.1 ??F) 02/05/2021 5:04 PM CD T Respiratory Rate 16 02/05/2021 5:04 PM CDT Oxygen Saturation 99% 02/05/2021 5:04 PM CDT Inhaled Oxygen Concentration - - Weight 57.4 kg (126 lb 8 oz) 06/14/2022 10:12 AM CLAIMS DIRECTOR Height 152.4 cm (5') 06/14/2022 10:12 AM CLAIMS DIRECTOR Body Mass Index 24.71 06/14/2022 10:12 AM CLAIMS DIRECTOR Plan of Treatment Health Maintenance Due Date [...] 01/26/2021, 2016 Medical Devices Implanted Type Area Systems Support Specialist Device Identifier Shelf Expiration Date Model / Serial / Lot Spacer Bio Avs C-Plg 6mm 4d [id number] - [id number] Implanted:Qt y: 1 on 02/16/2017 by Mylene Gutierrez MD at [facility] Biological N/A: Spine Cervical Anterior SEN- SPINE 09/12/2020 [id number] / [id number] / Description:All [place] spac er plugs and other spinal hardware was processed on requisition,[id number] Plate Aviator 1lvl 12mm [id number] - [id number] Implanted:Qt y: 1 on 02/16/2017 by Mylene Gutierrez MD at [facility] Plate N/A: Spine Cervical Anterior SEN- SPINE [id number] / STERILIZED 02/16/2017 / LOAD24 Screw Avtr [address] 4.0x14mm [id number] - [id number] Implanted:Qt y: 4 on 02/16/2017 by Myelne Gutierrez MD at [facility] Screw N/A: Spine Cervical Anterior SEN- SPINE [id number] / STERILIZED 02/16/2017 / LOAD24 Sealant Floseal 10ml [id number] - [id number] Implanted:Qt y: 1 on 02/16/2017 by Mylene Gutierrez MD at [facility] Sealant N/A: Spine Cervical Anterior CHERRY- BIOSCIENCE [id number] 03/16/2018 [id number] / / [id number] Cages In Back Explanted Type Area Systems Support Specialist Device Identifier Shelf Expiration Date Model / Serial / Lot Spinal Cord Generator And Leads Explanted:Qty: 1 on 11/16/2017 by Mylene Gutierrez MD at [facility] Lead N/A: Back Advance Directives For more information, please contact: [phone] * Full Code (Latest Code Status on [...] 12:48 PM 11/16/2017 12:50 PM Care Teams Estimating Engineer Relationship Specialty Start Date End Date Gadiel Zavala MD [address] [place] [phone] PCP - General Family Practice 03/03/17
--- OUTSIDE RECORDS SUMMARY | 2024-04-17 17:11 | XMS_ITS | Encounter Summary ---
Author Organization [facility] Address [address] [facility] [place] [address] Care Team Providers Care Network Controller Name Role Phone Gadiel Zavala MD Primary Care Provider [phone] Reason for Visit * Reason Comments Double Vision Encounter Details Date Type Department Care Team (Late st Contact Info) Description 12/01/2021 10:30 AM CDT Office Visit [facility] [address] [place] [address] Sin Romero MD [address] [place], [place] [phone] Consecutive esotropia (Primary Dx); History of strabismus [...] 6mm (02/05/21). Given 30^MEEK fresnel prism by [facility], continued wear after last exam. Patient frustrated [...] Clear Clear Refraction Wearing Rx Sphere Cylinder [place] Add Horz Prism Right -0.75 +1.25 025 [...] Diplopia documented in this encounter Care Teams Network Controller Relationship Specialty Start Date End Date Gadiel Zavala MD [address] [place] [address] PCP - General 02/15/21 documented as of this encounter
--- OUTSIDE RECORDS SUMMARY | 2024-04-17 17:11 | XMS_ITS | Clinical Summary ---
Author Organization [facility] Address [address] [place] [address] Phone Care Team Providers Care Cargo Services Coordinator Name Role Phone Gadiel Zavala MD Primary Care Provider [phone] Active Problems Problem Noted Date Diagnosed Date [...] topic Insurance MEDICARE C [employer] Care Teams Cargo Services Coordinator Relationship Specialty Start Date End Date Gadiel Zavala MD [address] [address] PCP - General Family Medicine 02/09/17
--- OUTSIDE RECORDS SUMMARY | 2024-04-17 17:11 | XMS_ITS | Encounter Summary ---
Author Organization [facility] Address [address] [place] [address] Care Team Providers Care Autopsy Assistant Name Role Phone Gadiel Zavala MD Primary Care Provider [phone] Encounter Details Date Type Department Care Team [...] on filedocumented in this encounter Care Teams Autopsy Assistant Relationship Specialty Start Date End Date Gadiel Zavala MD [address] [place] [phone] PCP - General Family Practice 03/03/17 documented as of this encounter
--- OUTSIDE RECORDS SUMMARY | 2024-04-17 17:11 | XMS_ITS | Encounter Summary ---
Author Organization [facility] Address [address] [facility] [place] [address] Care Team Providers Care Formation Fracturing Operator Name Role Phone Gadiel Zavala MD Primary Care Provider [phone] Reason for Visit * Reason Comments Double Vision Strabismus Encounter Details Date Type Department Care Team (Late st Contact Info) Description 07/28/2021 9:15 AM CDT Office Visit [facility] [address] [place] [address] Sin Romero MD [address] [place], [place] [phone] Alternating esotropia with V pattern (Primary Dx); [...] full downward transpositions. Ineffective Fresnel prism removed. [facility] Patient seen and examined with cashier or checker stock clerk Please see note for further details. I revised the history, exam, assessment and plan. In addition I note: Interval history: here for repeat preop measurment Exam: Sensorimotor exam reveals V-pattern consecuitve ET Assessment/Plan: [facility] with downwarnd transposition (NON-hangback recession) 07/30/2021 8:47 AM Sin Romero MD documented in this encounter Plan of Treatment Not on file documented as of this encounter Visit Diagnoses Diagnosis Alternating esotropia with V pattern- Primary Consecutive esotropia Esotropia, unspecified Diplopia documented in this encounter Care Teams Formation Fracturing Operator Relationship Specialty Start Date End Date Gadiel Zavala MD [address] [place] [address] PCP - General 02/15/21 documented as of this encounter
--- OUTSIDE RECORDS SUMMARY | 2024-04-17 17:11 | XMS_ITS | Encounter Summary ---
Author Organization [facility] Address [address] [place] [address] Care Team Providers Care Leather Sponger Name Role Phone Gadiel Zavala MD Primary Care Provider [phone] Encounter Details Date Type Department Care Team [...] on filedocumented in this encounter Care Teams Leather Sponger Relationship Specialty Start Date End Date Gadiel Zavala MD [address] [place] [phone] PCP - General Family Practice 03/03/17 documented as of this encounter
--- OUTSIDE RECORDS SUMMARY | 2024-04-17 17:11 | XMS_ITS | Encounter Summary ---
Author Organization [facility] Address [address] [facility] [place] [address] Care Team Providers Care Shoe Trimmer Name Role Phone Gadiel Zavala MD Primary Care Provider [phone] Reason for Visit * Auth/Cert Specialty Diagnoses / Procedures Referred By Contac t Referred To Contact Diagnoses Consecutive alternating esotropia Diplopia Consecutive alternating esotropia Diplopia Procedures CORRECTION STRABISMUS (RECESSION/RESECTION EYE MUSCLE) Referral ID Status Reason Start Date Expiration Date Visits Re quested Visits Authorized [id number] 1 1 Encounter Details Date Type Department Care Team (Late st Contact Info) Description 08/03/2021 1:09 PM CDT Anesthesia Event [facility] [address] [place] [address] Fred Hu MD [address] [place] [phone] Joe Thomas Anes Asst [address] [place] [address] Anesthesia Record Procedure Summary Procedure Name Responsible [...] procedural Anesthetic Plan was discussed with the oncology physician assistant and SERVICE ATTENDANT CAFETERIA. BMI, Height, Weight Tobacco History Estimated body [...] None; Tolerance: Well 08/03/21 1057 by Caitlin Hnog RN LMA 08/03/21; 1315 (created via procedure [...] mg documented in this encounter Care Teams Shoe Trimmer Relationship Specialty Start Date End Date Gadiel Zavala MD [address] [facility] [address] [address] PCP - General 02/15/21 documented as of this encounter
--- OUTSIDE RECORDS SUMMARY | 2024-04-17 17:11 | XMS_ITS | Patient Health Summary ---
Author Organization [facility] Address [address] [facility] [place] [address] Care Team Providers Care Heat Treat Supervisor Name Role Phone Gadiel Zavala MD Primary Care Provider [phone] Note from [facility],non-owned Affiliates and Associated Physician Practices is amultiple site organization consisting of ambulatory clinics and hospital sitesin [place], [place], [place] and [place]. This disclosure is being madepursuant to the Care Everywhere program and may not contain all information available regarding this patient. Last updated 18.[facility] Allergies * Adhesive Sensitivity(Rash) -Medium Criticality * [...] 6 hours as needed for Pain * hjxpozkz-uoemicnml-iwjpwibf (Maxitrol) ophthalmic suspension(Started 02/01/2022) Instill 1 (one) [...] CDT) Case Report Dermatopathology Report ? Case: [id number] ? Authorizing Provider: ??Angie Fortune, ?? Collected: ? 08/05/2020 03:33 AM ? Ordering Location: ? [facility] DermPath Lab ?Received: ?08/06/2020 07:28 AM ? [...] NMSC. B: LENT R/O atypia. 4:26 PM [facility] DERMATOPATHOLOGY [facility]ORATORY Gross Description Specimen A: Received is one formalin filled container labeled with the patient's name and designated left abdomen. The specimen consists of a shave measuring 15v0e0wz. Jar 0. Specimen B: Received is one formalin filled container labeled with the patient's name and designated right inner upper arm. The specimen consists of a shave measuring 32h3t2tp. Jar 0. 4:26 PM T DERMATOPATHOLOGY LABORATORY [...] Dr. Danielle Montenegro, who agrees. 4:26 PM [facility] DERMATOPATH[facility]ORAT[facility] Disclaimer An external and internal positive and negative controls are appropriate for the histochemical, immunohistochemical and immunofluorescence stain(s) in this case (if any), except where stated explicitly. The performance characteristics of the stain(s) cited in this report were developed and its performance characteristic determined by the Dermatopathology Laboratory at [facility], directed by Dr. Luis Montenegro. These tests need not be, and therefore are not, approved by the [place] Food and Drug Administration. The tests are used for clinical purposes. Billing Codes Specimen Charges Stain Charges 29741 42336 1 1 91215 1 4:26 PM CDT DERMATOPATHOLOGY LABORATORY Embedded Images 4:26 PM T DERMATOPATHOLOGY LABORATORY Pathology/Cytology TISSUE SPECIMEN FROM SKIN / Unknown 08/05/2020 3:33 AM CDT 08/06/2020 7:28 AM CDT Miscellaneous samples (specimen) TISSUE SPECIMEN FROM SKIN / Unknown 08/05/2020 3:33 AM CDT 08/06/2020 7:28 AM CDT Angie Fortune DO LAB - PATHOLOGY/C YTOLOGY ORDERABLES DERMATOPATHOLOGY LABORATORY [facility] - Department of Dermatology [facility] Medicine [address] [place] [address], [address] [phone] Care Teams Heat Treat Supervisor Relationship Specialty Start Date End Date Gadiel Zavala MD [address] [facility] [address] [address] PCP - General 02/15/21
--- OUTSIDE RECORDS SUMMARY | 2024-04-17 17:11 | XMS_ITS | Encounter Summary ---
Author Organization [facility] [email or web address] Address [address] [facility] [place] [address] Care Team Providers Care Toolroom Keeper Name Role Phone Gadiel Zavala MD Primary Care Provider [phone] Reason for Visit * Auth/Cert Specialty Diagnoses / Procedures Referred By Contac t Referred To Contact Diagnoses Consecutive esotropia History of strabismus surgery Diplopia Consecutive esotropia History of strabismus surgery Diplopia Procedures CORRECTION STRABISMUS (RECESSION/RESECTION EYE MUSCLE) Referral ID Status Reason Start Date Expiration Date Visits Re quested Visits Authorized [id number] 1 1 Encounter Details Date Type Department Care Team (Late st Contact Info) Description 02/01/2022 1:00 PM CDT - 02/01/2022 3:20 PM CDT Surgery [facility] OR [facility]/AMB SURGERY [address] [place] [phone] Sin Romero MD [address] [place] [address] Advance lateral rectus BILATERALLY on adjustable suture Surgery Details Date/Time Status Location OR Service Patient Class Case Class Case Type Trauma Case? 02/01/2022 1:00 PM [facility] 01 Ophthalmology [...] SURGERY DISCHARGE SUMMARY Patient ID: Kaitlin Bond [id number] 71 year old 1950 Date of Surgery: 02/01/2022 Procedure performed: Bilateral lateral rectus advancement with adjustable suture Discharge Date: 02/01/2022 Discharge Diagnoses: Present on Admission: None Discharge Condition: Stable. Doing well. Discharge Medication: Medication List START taking these medications ketorolac 10 MG tablet Commonly known as: Toradol Take 1 (one) tablet by mouth every 8 hours as needed for Pain yyyyvgcy-peujsqkrw-zgqmxfby ophthalmic suspension Commonly known as: Maxitrol Instill [...] Your Medications These medications were sent to [facility] [phone] [address] [address] [address] ?? ketorolac 10 MG tablet Information about where to get these medications is not yet available Ask your nurse or doctor about these medications ?? rrtcibqf-hjwvwatdk-sahpuxzg ophthalmic suspension Discharge Procedure Orders Why you were hospitalized Order Specific Question Answer Comments Your discharge diagnosis is: Esotropia [[id number]] When to call your provider At and [...] FOLLOW-UP APPOINTMENT: Tomorrow at 8:30 AM at [facility], [address] [place] [address], [address]. The ophthalmology office is located on the [facility]. Office INSTRUCTIONS: - KEEP PATCH ON UNTIL [...] reach us for after hour emergencies at [phone], press 0 to talk to the washer and capper machine operator, then ask to speak with the fox raiser warehouse operations associate. Disposition: home Follow-up: Tomorrow at 8:30 AM, call if problems. Sagar Vazquez MD 02/01/2022 2:47 PM documented in this encounter Discharge Instructions * Discharge Instructions* Sagar Vazquez MD - 02/01/2022 2:43 PM CDT Images from the original note were not included. POST-OPERATIVE INSTRUCTIONS EYE MUSCLE SURGERY FOLLOW-UP APPOINTMENT: Tomorrow at 8:30 AM at [facility], [address] [place] [address], [address]. The ophthalmology office is located on the [facility]. Office INSTRUCTIONS: - KEEP PATCH ON UNTIL [...] reach us for after hour emergencies at [phone], press 0 to talk to the washer and capper machine operator, then ask to speak with the fox raiser warehouse operations associate. documented in this encounter Medications at Time [...] 05/24/2021 losartan (Cozaar) 25 MG tablet 01/31/2022 oogdlgqn-dohtxqzmb-emgi meth (Maxitrol) ophthalmic suspension Instill 1 (one) [...] Medical History: Diagnosis Date ??? Colon cancer ([facility]/HCC) 09/15/2021 Patient reported - diagnosis made [...] [age] year old Date of : 1950 [facility] #: [id number] Date of Operation: 02/02/2022 ATTENDING SURGEON: Sin Romero M.D. DISC JOCKEY: Sagar Vazquez MD PREOPERATIVE DIAGNOSIS: Esotropia History [...] Mcfarland RN - 02/01/2022 2:29 PM CDT [id number] Using an Incentive Spirometer An incentive spirometer [...] heart rate Last Reviewed Date: 2021 ?? [id number] [employer]. All rights reserved. This information is not [...] Pre-op documented in this encounter Care Teams Toolroom Keeper Relationship Specialty Start Date End Date Gadiel Zavala MD [address] [facility] [address] [place] [address] PCP - General 02/15/21 documented as of this encounter
--- OUTSIDE RECORDS SUMMARY | 2024-04-17 17:11 | XMS_ITS | Encounter Summary ---
Author Organization [facility] Address [address] [place] [address] Care Team Providers Care Client Support Professional Name Role Phone Gadiel Zavala MD Primary Care Provider [phone] Encounter Details Date Type Department Care Team [...] on filedocumented in this encounter Care Teams Client Support Professional Relationship Specialty Start Date End Date Gadiel Zavala MD [address] [place] [phone] PCP - General Family Practice 03/03/17 documented as of this encounter
--- OUTSIDE RECORDS SUMMARY | 2024-04-17 17:11 | XMS_ITS | Encounter Summary ---
Author Organization [facility] Address [address] [place] [address] Care Team Providers Care Catcher Helper Name Role Phone Gadiel Zavala MD Primary Care Provider [phone] Encounter Details Date Type Department Care Team [...] on filedocumented in this encounter Care Teams Catcher Helper Relationship Specialty Start Date End Date Gadiel Zavala MD [address] [place] [phone] PCP - General Family Practice 03/03/17 documented as of this encounter
--- OUTSIDE RECORDS SUMMARY | 2024-04-17 17:11 | XMS_ITS | Encounter Summary ---
Author Organization [facility] Address [address] [facility] [place] [address] Care Team Providers Care Casino Cashier Name Role Phone Gadiel Zavala MD Primary Care Provider [phone] Reason for Visit * Reason Comments Post-Op Encounter Details Date Type Department Care Team (Late st Contact Info) Description 02/08/2022 3:30 PM CDT Office Visit [facility] [address] [place] [address] Sin Romero MD [address] [place], [place] [id number] Consecutive esotropia (Primary Dx); History of strabismus [...] reach us for after hour emergencies at [phone], press 0 to talk to the paper goods machine operator, then ask to speak with the transition mgr technical support professional. documented in this encounter Progress Notes * Sagar Vazquez MD - 02/08/2022 4:19 PM CDT Images from the original note were not included. Progress Note U Ophthalmology Chief Complaint Patient presents with ??? Post-Op HPI: Katilin Bond is a 71 year old female [...] MOUTH ONCE DAILY IN THE MORNING ??? fmmlrhcn-eyhlstzyh-cuyarypo (Maxitrol) ophthalmic suspension Instill 1 (one) drop [...] Medical History: Diagnosis Date ??? Colon cancer ([facility]/HCC) 09/15/2021 Patient reported - diagnosis made [...] and diplopia after most recent procedure - CITx3hq (08/03/21 - Nick) ?- Originally patient XT [...] surgery documented in this encounter Care Teams Casino Cashier Relationship Specialty Start Date End Date Gadiel Zavala MD [address] [facility] [address] [place] [address] PCP - General 02/15/21 documented as of this encounter
--- OUTSIDE RECORDS SUMMARY | 2024-04-17 17:11 | XMS_ITS | Encounter Summary ---
Author Organization [facility] Address [address] [place] [address] Care Team Providers Care Pilot Plant Technician Name Role Phone Gadiel Zavala MD Primary Care Provider [phone] Reason for Visit * Reason Comments Post-Op S/P Advance lateral rectus BILATERALLY on adjustable sutures x 02/01/2022 Encounter Details Date Type Department Care Team (Late st Contact Info) Description 02/02/2022 8:30 AM CDT Office Visit [facility] Ophthalmology [address] [place] [address] Sin Romero MD [address] [place] [address] Consecutive esotropia (Primary Dx); History of strabismus [...] reports Pt brought with her today: ?? Muk-sdqx-kze / Maxitrol jaqueline (tube) The following was [...] MOUTH ONCE DAILY IN THE MORNING ??? medfmzqv-ytwsbzpkz-ivotsxjt (Maxitrol) ophthalmic suspension Instill 1 (one) drop [...] and diplopia after most recent procedure - [id number] (08/03/21 - Nick) ?- Originally patient XT [...] Diplopia documented in this encounter Care Teams Pilot Plant Technician Relationship Specialty Start Date End Date Gadiel Zavala MD [address] [facility] [address] [place] [address] PCP - General 02/15/21 documented as of this encounter
--- OUTSIDE RECORDS SUMMARY | 2024-04-17 17:11 | XMS_ITS | Encounter Summary ---
Author Organization [facility] Address [address] [place] [address] Care Team Providers Care Lecturer Of Portuguese Name Role Phone Gadiel Zavala MD Primary Care Provider [phone] Encounter Details Date Type Department Care Team (Late st Contact Info) Description 06/19/2023 External Device Data ST[facility] ABSTRACTION Provider, Abstract [...] on filedocumented in this encounter Care Teams Lecturer Of Portuguese Relationship Specialty Start Date End Date Gadiel Zavala MD [address] [place] [phone] PCP - General Family Practice 03/03/17 documented as of this encounter
--- OUTSIDE RECORDS SUMMARY | 2024-04-17 17:11 | XMS_ITS | Encounter Summary ---
Author Organization [facility] Address [address] [facility] [address] Care Team Providers Care Carpet Binder Name Role Phone Gadiel Zavala MD Primary Care Provider [phone] Reason for Visit * Auth/Cert Specialty Diagnoses / Procedures Referred By Contac t Referred To Contact Diagnoses Consecutive esotropia History of strabismus surgery Diplopia Consecutive esotropia History of strabismus surgery Diplopia Procedures CORRECTION STRABISMUS (RECESSION/RESECTION EYE MUSCLE) Referral ID Status Reason Start Date Expiration Date Visits Re quested Visits Authorized [id number] 1 1 Encounter Details Date Type Department Care Team (Late st Contact Info) Description 02/01/2022 12:59 PM CDT Anesthesia Event [facility] OR [facility]/AMB SURGERY [address] [place] [address] Clarice Hammond MD Relocated/no information available Aydin Soto MD [address] [facility] DE[place] [address] Anesthesia Record Procedure Summary Procedure Name Responsible [...] Tolerance: Well 02/01/22 1306 by Henrietta Balbuena APRN-CONGRESSIONAL DISTRICT AIDE 02/01/22 1526 by Seun Mcfarland, RN LMA 02/01/22; 1311 (created via procedure documentation); IDANIA Carr; 100% O2; Standard IV; mask not attempted; LMA; 3.0; Direct visualization, Bilateral breath sounds, Chest Auscultation, CO2 Monitor; 02/01/22; 1433 02/01/22 1311 by Henrietta Balbuena APRN-CONGRESSIONAL DISTRICT AIDE 02/01/22 1433 by Henrietta Balbuena APRN-CRNA Procedural [...] procedural Anesthetic Plan was discussed with the customer relations assistant and CONGRESSIONAL DISTRICT AIDE. BMI, Height, Weight Tobacco History Estimated body [...] 07/07/2016 Priority: Not Prioritized ??? Colon cancer ([facility]) 09/15/2021 Patient reported - diagnosis made 08/2021 [...] SURGERY nerve stimulator-and removed ??? Spine Procedure/Surgery FLASH WELDING MACHINE OPERATOR Status: No LMP recorded. unknown OB History [...] mg documented in this encounter Care Teams Carpet Binder Relationship Specialty Start Date End Date Gadiel Zavala MD [address] [place] [address] PCP - General 02/15/21 documented as of this encounter
--- OUTSIDE RECORDS SUMMARY | 2024-04-17 17:11 | XMS_ITS | Clinical Summary ---
Author Organization [facility] Address [address] [facility] [place] [address] Care Team Providers Care Accounts Payable Professional Name Role Phone Gadiel Zavala MD Primary Care Provider [phone] Source Comments [facility],non-owned Affiliates and Associated Physician Practices is amultiple site organization consisting of ambulatory clinics and hospital sitesin [place], [place], [place] and [place]. This disclosure is being madepursuant to the Care Everywhere program and may not contain all information available regarding this patient. Last updated 18.[facility] Allergies Active Allergy Reactions Criticality Noted Date [...] Description 02/07/2024 10:00 AM CDT Office Visit [facility] - Ophthalmology [address] [place] [phone] Sin Romero MD Consecutive esotropia (Primary Dx); [...] age to complete this topic Care Teams Accounts Payable Professional Relationship Specialty Start Date End Date Gadiel Zavala MD [address] [place] [address] PCP - General 02/15/21
--- OUTSIDE RECORDS SUMMARY | 2024-04-17 17:11 | XMS_ITS | Encounter Summary ---
Author Organization [facility] Address [address] [facility] [place] [address] Care Team Providers Care Sales Data Analyst Name Role Phone Gadiel Zavala MD Primary Care Provider [phone] Reason for Visit * Reason Comments Surgical Follow-up Encounter Details Date Type Department Care Team (Late st Contact Info) Description 08/10/2021 3:30 PM CDT Office Visit [facility] Ophthalmology [address] [place] [phone] Sin Romero MD [address] [place] [phone] History of strabismus surgery (Primary Dx) Social [...] Maguire MD - 08/10/2021 4:39 PM CDT [facility] Ophthalmology Located at: [facility] Medicine Ophthalmology [address] [place] [address] Your Visit from 08/10/2021 Follow up Appointment: [...] thesemedicines. Phone Number: Week (8am-5pm) - Call [phone] () Evenings, Weekends, or Holidays: Call [phone] and dial [phone] for the plodding operator. Ask to speak to the eye doctor strength and conditioning coach. They will connect us. documented in this [...] gaze that is variable - evaluated by [facility] with possible concerns for convergence spasms given variability Plan - tobradex TID until out OU - prednisolone acetate QID 1 week, TID 1week, BID 1 week, daily 1 week, then stop - M30 with [facility] on 08/18/2021 at 10:45AM Eloina Maguire MD Ophthalmology PGY4 Minimal improvement at week 1 Re-assurance/Observation documented in this encounter Plan of Treatment Not on file documented as of this encounter Visit Diagnoses Diagnosis History of strabismus surgery- Primary documented in this encounter Care Teams Sales Data Analyst Relationship Specialty Start Date End Date Gadiel Zavala MD [address] [place] [address] PCP - General 02/15/21 documented as of this encounter
--- OUTSIDE RECORDS SUMMARY | 2024-04-17 17:11 | XMS_ITS | Encounter Summary ---
Author Organization [facility] Address [address] [place] [address] Care Team Providers Care Felt Coverer Name Role Phone Gadiel Zavala MD Primary Care Provider [phone] Encounter Details Date Type Department Care Team (Late st Contact Info) Description 07/25/2022 Abstract [facility] Neurosurgery - [facility] [address] [address] [place] [phone] Mylene Gutierrez MD [address] [facility] [address] [address] -x0 (Work) Social History Tobacco Use Types [...] on filedocumented in this encounter Care Teams Felt Coverer Relationship Specialty Start Date End Date Gadiel Zavala MD [address] [place] [phone] PCP - General Family Practice 03/03/17 documented as of this encounter
--- OUTSIDE RECORDS SUMMARY | 2024-04-17 17:11 | XMS_ITS | Encounter Summary ---
Author Organization [facility] Address [address] [facility] [place] [address] Care Team Providers Care Interactive Media Marketing Strategist Name Role Phone Gadiel Zavala MD Primary Care Provider Reason for Visit * Auth/Cert Specialty Diagnoses / Procedures Referred By Contac t Referred To Contact Diagnoses Consecutive alternating esotropia Diplopia Consecutive alternating esotropia Diplopia Procedures CORRECTION STRABISMUS (RECESSION/RESECTION EYE MUSCLE) Referral ID Status Reason Start Date Expiration Date Visits Re quested Visits Authorized [id number] 1 1 Encounter Details Date Type Department Care Team (Latest Contact Info) Description 08/03/2021 10:21 AM CDT - 08/03/2021 4:00 PM CDT Hospital Encounter [facility] OR [facility]/AMB SURGERY [address] [place] [address] Sin Romero MD [address] [place] [address] Ophthalmology Discharge Disposition: Home or Self Care [...] SURGERY DISCHARGE SUMMARY Patient ID: Kaitlin Bond [id number] 71 year old 1950 Date of Surgery: [...] Your Medications These medications were sent to [facility] [phone] [address] [address] [address] ?? ketorolac 10 MG tablet Discharge Procedure [...] scheduled on 08/10/[address] Romero at [facility] [place] [address] at 3:30PM TODAY: - Put drop in [...] questions, please call the ophthalmology office at #[phone] Disposition: home Eloina Maguire MD 08/03/2021 2:33 PM documented in this encounter Discharge Instructions * Discharge Instructions* Eloina Maguire MD - 08/03/2021 12:38 PM CDT POST-OPERATIVE INSTRUCTIONS EYE MUSCLE SURGERY FOLLOW-UP APPOINTMENT: [address] Romero as scheduled on 08/10/[address] Romero at [facility] [place] [address] at 3:30PM TODAY: - Put drop in [...] questions, please call the ophthalmology office at #[phone] documented in this encounter Medications at Time [...] Romero MD - 08/03/2021 1:35 [place] [address] OPERATIVE REPORT NAME: Kaitlin Bond : 1950 [facility] #: [id number] . DATE OF OPERATION: 08/03/2021 ATTENDING SURGEON: Sin Romero M.D. CLINICAL TRIAL LEADER: Eloina Maguire MD PREOPERATIVE DIAGNOSIS: V pattern [...] Pre-op documented in this encounter Care Teams Interactive Media Marketing Strategist Relationship Specialty Start Date End Date Gadiel Zavala MD [address] [facility] [address] [place] [address] PCP - General 02/15/21 documented as of this encounter
--- OUTSIDE RECORDS SUMMARY | 2024-04-17 17:11 | XMS_ITS | Encounter Summary ---
Author Organization [facility] Address [address] [facility] [address] Care Team Providers Care Child Monitor Name Role Phone Gadiel Zavala MD Primary Care Provider [phone] Reason for Visit * Reason Comments Double Vision F/u Encounter Details Date Type Department Care Team (Late st Contact Info) Description 05/11/2022 9:00 AM CHAIN MAKER LOOM CONTROL Office Visit [facility] [address] [place] [address] Sin Romero MD [address] [place], [place] [phone] Consecutive exotropia of both eyes (Primary Dx); [...] Stereo Fly: + Animals: 3/3 Circles: 4/9 [place] 4 Dot Distance: suppress OS Near: suppress [...] (05/11/2022, 09:57) Patient seen and examined with ems helicopter pilot Please see note for further details. I revised the history, exam, assessment and plan. In addition I note: Interval history: has noticed a SMALL improvement Exam: well healed conjncitvea Sensorimotor exam reveals Consecutive XT with some motor/sensory fusion Assessment/Plan: Trial of convergence exercisses 05/11/2022 10:08 AM Sin Romero MD N MAKER LOOM CONTROL documented in this encounter Plan of Treatment Not on file documented as of this encounter Visit Diagnoses Diagnosis Consecutive exotropia of both eyes- Primary Diplopia History of strabismus surgery documented in this encounter Care Teams Child Monitor Relationship Specialty Start Date End Date Gadiel Zavala MD [address] [place] [address] PCP - General 02/15/21 documented as of this encounter
--- OUTSIDE RECORDS SUMMARY | 2024-04-17 17:11 | XMS_ITS | Encounter Summary ---
Author Organization [facility] Address [address] [facility] [place] [address] Care Team Providers Care Intel Analyst Name Role Phone Gadiel Zavala MD Primary Care Provider Reason for Visit * Reason Comments Double Vision Strabismus Encounter Details Date Type Department Care Team (Late st Contact Info) Description 08/18/2021 10:45 AM CDT Office Visit [facility] [address] [place] [address] Sin Romero MD [address] [place], [place] [id number] Diplopia (Primary Dx); Consecutive esotropia Social History [...] ) but complications from lower back surgery [id number]. She does not currently have a neurologist. [...] neurological signs or symptoms. See back with [facility]. [facility] Sensorimotor exam reveals Unexplained surgical result Constant Diplopia with some sensory fuison Large angle resdiult ET Well healing surgical conjucntiva Sin Romero MD ' documented in this encounter Plan of Treatment Not on file documented as of this encounter Visit Diagnoses Diagnosis Diplopia- Primary Consecutive esotropia Esotropia, unspecified documented in this encounter Care Teams Intel Analyst Relationship Specialty Start Date End Date Gadiel Zavala MD [address] [facility] [address] [address] PCP - General 02/15/21 documented as of this encounter
--- OUTSIDE RECORDS SUMMARY | 2024-04-17 17:11 | XMS_ITS | Encounter Summary ---
Author Organization [facility] Address [address] [place] [address] Care Team Providers Care Racing Secretary Name Role Phone Gadiel Zavala MD Primary Care Provider [phone] Encounter Details Date Type Department Care Team (Late st Contact Info) Description 02/07/2024 10:00 AM CDT Office Visit [facility] - Ophthalmology [address] [place] [phone] Sin Romero MD [address] [place] [address] Consecutive esotropia (Primary Dx); Diplopia; History of [...] refraction in July 2022 - seen at [facility]. Frames broken Patient accompanied by spouse. Allergies: is allergic to latex, gadopentetate dimeglumine, adhesive sensitivity, and green dye. EXAM: Base Eye Exam Visual Acuity (Snellen - Linear) Right Left Dist cc 20/25 +3 20/20 Correction: Glasses Tonometry deferred Pupils Pupils Right PERRL Left PERRL Visual Vega Grossly full Additional Tests Stereo Fly: + Animals: 0/3 Circles: 0/9 Strabismus Exam Reading #1 (Edited by: Cheyenen Julian) Method: Alternate cover Correction: cc Distance [...] intraocular lens Refraction Wearing Rx Sphere Cylinder [place] Add Horz Prism Right -0.50 +0.75 020 [...] (02/07/2024, 12:28) Patient seen and examined with side door man Please see note for further details. I [...] surgery documented in this encounter Care Teams Racing Secretary Relationship Specialty Start Date End Date Gadiel Zavala MD [address] [facility] [address] [place] [address] PCP - General 02/15/21 documented as of this encounter
--- OUTSIDE RECORDS SUMMARY | 2024-04-17 17:11 | XMS_ITS | Encounter Summary ---
Author Organization [facility] Address [address] [facility] [place] [address] Care Team Providers Care Fish Farm Laborer Name Role Phone Gadiel Zavala MD Primary Care Provider [phone] Reason for Visit * Auth/Cert Specialty Diagnoses / Procedures Referred By Contac t Referred To Contact Diagnoses Consecutive esotropia History of strabismus surgery Diplopia Consecutive esotropia History of strabismus surgery Diplopia Procedures CORRECTION STRABISMUS (RECESSION/RESECTION EYE MUSCLE) Referral ID Status Reason Start Date Expiration Date Visits Re quested Visits Authorized [id number] 1 1 Encounter Details Date Type Department Care Team (Latest Contact Info) Description 02/01/2022 10:56 AM CDT - 02/01/2022 3:36 PM CDT Hospital Encounter [facility]B SURGERY [address] [place] [address] Sin Romero MD [address] [place], [place] [id number] Surgery General Discharge Disposition: Home or Self [...] SURGERY DISCHARGE SUMMARY Patient ID: Kaitlin Bond [id number] 71 year old 1950 Date of Surgery: 02/01/2022 Procedure performed: Bilateral lateral rectus advancement with adjustable suture Discharge Date: 02/01/2022 Discharge Diagnoses: Present on Admission: None Discharge Condition: Stable. Doing well. Discharge Medication: Medication List START taking these medications ketorolac 10 MG tablet Commonly known as: Toradol Take 1 (one) tablet by mouth every 8 hours as needed for Pain aluruism-abaxcnpws-nytrgafx ophthalmic suspension Commonly known as: Maxitrol Instill [...] Your Medications These medications were sent to [facility] [id number] [address] [address] [address] ?? ketorolac 10 MG tablet Information about where to get these medications is not yet available Ask your nurse or doctor about these medications ?? zoycwxig-hkkrhrdnk-dwkkhqps ophthalmic suspension Discharge Procedure Orders Why you were hospitalized Order Specific Question Answer Comments Your discharge diagnosis is: Esotropia [[id number]] When to call your provider At and [...] FOLLOW-UP APPOINTMENT: Tomorrow at 8:30 AM at [address], [address]. The ophthalmology office is located on the [facility]. Office INSTRUCTIONS: - KEEP PATCH [...] reach us for after hour emergencies at [phone], press 0 to talk to the priming machine operator, then ask to speak with the videotape sales representative storage consultant. Disposition: home Follow-up: Tomorrow at 8:30 AM, call if problems. Sagar Vazquez MD 02/01/2022 2:47 PM documented in this encounter Discharge Instructions * Discharge Instructions* Sagar Vazquez MD - 02/01/2022 2:43 PM CDT Images from the original note were not included. POST-OPERATIVE INSTRUCTIONS EYE MUSCLE SURGERY FOLLOW-UP APPOINTMENT: Tomorrow at 8:[address] at [address], [address]. The ophthalmology office is located on the [facility]. Office INSTRUCTIONS: - KEEP PATCH [...] reach us for after hour emergencies at [phone], press 0 to talk to the priming machine operator, then ask to speak with the videotape sales representative storage consultant. documented in this encounter Medications at Time [...] 05/24/2021 losartan (Cozaar) 25 MG tablet 01/31/2022 orvqjlkv-knikgbarq-mnry meth (Maxitrol) ophthalmic suspension Instill 1 (one) [...] [age] year old Date of : 1950 [facility] #: [id number] Date of Operation: 02/02/2022 ATTENDING SURGEON: Sin Romero M.D. IGNITION MECHANIC: Sagar Vazquez MD PREOPERATIVE DIAGNOSIS: Esotropia History [...] Mcfarland RN - 02/01/2022 2:29 PM CDT [id number] Using an Incentive Spirometer An incentive spirometer [...] heart rate Last Reviewed Date: 2021 ?? [id number] The [employer]. All rights reserved. This information is not [...] Pre-op documented in this encounter Care Teams Fish Farm Laborer Relationship Specialty Start Date End Date Gadiel Zavala MD [address] [place] [address] PCP - General 02/15/21 documented as of this encounter
--- OUTSIDE RECORDS SUMMARY | 2024-04-17 17:11 | XMS_ITS | Encounter Summary ---
Author Organization [facility] Address [address] [place] [address] Care Team Providers Care Systems Qa Analyst Name Role Phone Gadiel Zavala MD Primary Care Provider [phone] Reason for Visit * Reason Comments Double Vision Strabismus Encounter Details Date Type Department Care Team (Late st Contact Info) Description 07/07/2021 11:30 AM FORENSIC INVESTIGATOR Office Visit [facility] [address] [place] [address] Sin Romero MD [address] [place], [place] [phone] Consecutive alternating esotropia (Primary Dx); Diplopia Social [...] up at midline with PALs raised. grh [place] 4 Dot Distance: Sees 4 at first - to 5 unXd. Images widely on lateral gazes with greens slightly lower. Near: Sees 4 at near. Double Negron Taz Right Left Primary 0 0 Strabismus Exam Method: PCT by [facility] Observations: V pattern Distance Near Near [...] but is inadequate for lateral gazes ordowngaze. [facility] Refraction Wearing Rx Sphere Cylinder [place] Add Horz Prism Right -0.75 +1.25 025 +2.50 Left -0.50 +1.00 065 +2.50 6-8^ MEEK Age: x 6 months Type: PALs/prisms W: per Dr Santoyo. Says 3^ BI OD; 2^ MEEK OS. I did not see prisms. [facility] IMPRESSION: The primary encounter diagnosis was Consecutive alternating esotropia. A diagnosis of Diplopia was also pertinent to this visit. RECOMMENDATION: Patient seen and examined with nut sorter Please see note for further details. I [...] of accommodative spasm, likely treated with PI. [facility] [Note: Have reviewed the pre-op visit. On the 12/24/[address] Childs, the prism measurements are recorded as LX(T) 18^ (right gaze), LX(T) 25^ (primary gaze). LX(T) 20^ (left gaze.) There are No measurements above or below the midline or at near. [facility]] documented in this encounter Plan of Treatment Not on file documented as of this encounter Visit Diagnoses Diagnosis Consecutive alternating esotropia- Primary Alternating esotropia Diplopia documented in this encounter Care Teams Systems Qa Analyst Relationship Specialty Start Date End Date Gadiel Zavala MD [address] [facility] [address] [address] PCP - General 02/15/21 documented as of this encounter
--- OUTSIDE RECORDS SUMMARY | 2024-04-17 17:11 | XMS_ITS | Encounter Summary ---
Author Organization [facility] Address [address] [place] [address] Care Team Providers Care Mailroom Courier Name Role Phone Gadiel Zavala MD Primary Care Provider [phone] Encounter Details Date Type Department Care Team (Late st Contact Info) Description 02/16/2022 9:00 AM CDT Office Visit [facility] [address] [place] [phone] Sin Romero MD [address] [place] [address] Consecutive esotropia (Primary Dx); History of strabismus [...] Clear Clear Refraction Wearing Rx Sphere Cylinder [place] Add Right -0.75 +1.25 025 +2.50 Left -0.50 +1.00 065 +2.50 Type: PAL IMPRESSION: Residual, paradoxical esotropia, small LH(T) ?- unexpected worsening E(T) and diplopia after most recent procedure - [id number] (08/03/21 - Nick) ?- prior XT s/p [...] Diplopia documented in this encounter Care Teams Mailroom Courier Relationship Specialty Start Date End Date Gadiel Zavala MD [address] [facility] [address] [address] PCP - General 02/15/21 documented as of this encounter
--- OUTSIDE RECORDS SUMMARY | 2024-04-17 17:11 | XMS_ITS | Encounter Summary ---
Author Organization [facility] [place] Address [address] [facility] [place] [address] Care Team Providers Care Director Of Staff Development Name Role Phone Gadiel Zavala MD Primary Care Provider [phone] Reason for Visit * Auth/Cert Specialty Diagnoses / Procedures Referred By Contac t Referred To Contact Diagnoses Consecutive alternating esotropia Diplopia Consecutive alternating esotropia Diplopia Procedures CORRECTION STRABISMUS (RECESSION/RESECTION EYE MUSCLE) Referral ID Status Reason Start Date Expiration Date Visits Re quested Visits Authorized [id number] 1 1 Encounter Details Date Type Department Care Team (Late st Contact Info) Description 08/03/2021 12:30 PM CDT - 08/03/2021 2:20 PM CDT Surgery [facility] OR [facility]AMB SURGERY [address] [place] [address] Sin Romero MD [address] [place] [address] BIMEDIAL RECTUS RECESSION WITH DOWNWARD TRANSPOSITION Surgery Details Date/Time Status Location OR Service Patient Class Case Class Case Type Trauma Case? 08/03/2021 12:30 PM Posted [facility] YOCASTA OR YOCASTA OR 02 Ophthalmology [...] SURGERY DISCHARGE SUMMARY Patient ID: Kaitlin Bond [id number] 71 year old 1950 Date of Surgery: [...] Your Medications These medications were sent to [facility] [id number], [place] [address] ?? ketorolac 10 MG tablet Discharge Procedure [...] on 08/10/[address] Romero at [address] [place] [address] at 3:30PM TODAY: - Put drop in [...] questions, please call the ophthalmology office at #[phone] Disposition: home Eloina Maguire MD 08/03/2021 2:33 PM documented in this encounter Discharge Instructions * Discharge Instructions* Eloina Maguire MD - 08/03/2021 12:38 PM CDT POST-OPERATIVE INSTRUCTIONS EYE MUSCLE SURGERY FOLLOW-UP APPOINTMENT: [address] Romero as scheduled on 08/10/[address] Romero at [address] [place] [address] at 3:30PM TODAY: - Put drop in [...] questions, please call the ophthalmology office at #[phone] documented in this encounter Medications at Time [...] Romero MD - 08/03/2021 1:35 [place] [address] OPERATIVE REPORT NAME: Kaitlin Bond : 1950 [facility] #: [id number] . DATE OF OPERATION: 08/03/2021 ATTENDING SURGEON: Sin Romero M.D. TIER AND DETONATOR: Eloina Maguire MD PREOPERATIVE DIAGNOSIS: V pattern [...] Pre-op documented in this encounter Care Teams Director Of Staff Development Relationship Specialty Start Date End Date Gadiel Zavala MD [address] [facility] [address] [address] PCP - General 02/15/21 documented as of this encounter
--- OUTSIDE RECORDS SUMMARY | 2024-04-17 17:11 | XMS_ITS | Encounter Summary ---
Author Organization [facility] Address [address] [facility] [place] [address] Care Team Providers Care Sales Account Representative Name Role Phone Gadiel Zavala MD Primary Care Provider Reason for Visit * Reason Comments Double Vision F/u for prism Encounter Details Date Type Department Care Team (Late st Contact Info) Description 09/15/2021 10:00 AM CDT Office Visit [facility] [address] [facility], [place] [address] Sin Romero MD [address] [place], [place] [phone] Diplopia (Primary Dx); Consecutive esotropia Social History [...] team next week (seen by provider in [place]). Patient wearing prism. Denies diplopia with glasses [...] intraocular lens Refraction Wearing Rx Sphere Cylinder [place] Add Horz Prism Right -0.75 +1.25 025 [...] (09/15/2021, 11:32) Patient seen and examined with waiter/waitress counter Please see note for further details. I [...] unspecified documented in this encounter Care Teams Sales Account Representative Relationship Specialty Start Date End Date Gadiel Zavala MD [address] [facility] [address] [place] [address] PCP - General 02/15/21 documented as of this encounter
--- OUTSIDE RECORDS SUMMARY | 2024-04-17 17:12 | XMS_ITS | Encounter Summary ---
Author Organization [facility] Address [address] [facility] Attn: Epic Prelude ADT [place] [address] Care Team Providers Care Manufacturers Representative Name Role Phone Gadiel Zavala MD Primary Care Provider [phone] Encounter Details Date Type Department Care Team [...] COVID-19? No / Unsure 07/02/2021 11:15 AM BLINDSTITCH LAPEL PADDER documented as of this encounter Plan of Treatment Not on file documented as of this encounter Visit Diagnoses Not on filedocumented in this encounter Care Teams Manufacturers Representative Relationship Specialty Start Date End Date Gadiel Zavala MD [address] [place] [address] PCP - General Family Practice 03/03/17 documented as of this encounter
--- OUTSIDE RECORDS SUMMARY | 2024-04-17 17:12 | XMS_ITS | Encounter Summary ---
Author Organization [facility] Address [address] [place] [address] Care Team Providers Care Through Freight Engineer Name Role Phone Gadiel Zavala MD Primary Care Provider [phone] Encounter Details Date Type Department Care Team (Late st Contact Info) Description 06/27/2022 Abstract [facility] Neurosurgery - [facility] [address] [address] [place] [address] Mylene Gutierrez MD [address] [place] [address] -x0 (Work) Social History Tobacco Use Types [...] Coronavirus/COVID-19? No / Unsure 06/14/2022 10:01 AM EXECUTIVE TEAM LEADER documented as of this encounter Plan of Treatment Not on file documented as of this encounter Visit Diagnoses Not on filedocumented in this encounter Care Teams Through Freight Engineer Relationship Specialty Start Date End Date Gadiel Zavala MD [address] [place] [address] PCP - General Family Practice 03/03/17 documented as of this encounter
--- OUTSIDE RECORDS SUMMARY | 2024-04-17 17:12 | XMS_ITS | Encounter Summary ---
Author Organization [facility] Address [address] [place] [address] Care Team Providers Care Pulp Press Tender Name Role Phone Gadiel Zavala MD Primary Care Provider [phone] Reason for Visit * Reason Comments Double Vision Follow Up Encounter Details Date Type Department Care Team (Late st Contact Info) Description 07/02/2021 11:20 AM IRON PILER Office Visit [facility] [place] A [address] [place] [address] Miguel Chlids MD [address] [facility] [address] [facility] [place] [address] Binocular vision disorder with diplopia [...] COVID-19? No / Unsure 07/02/2021 11:15 AM IRON PILER documented as of this encounter Progress Notes [...] C3-4 performed by Mylene Gutierrez MD at [facility] OR [facility] ??? [place] IMPLANT SPINAL NEUROSTIM/ELECTRONEURODIAGNOSTIC TECHNICIAN N/A 11/16/2017 SPINAL CORD DORSAL COLUMN STIMULATOR REMOVAL performed by Mylene Gutierrez MD at [facility] OR [facility] ??? [place] STABISMUS SURG,TWO HORIZ MUSCLE Bilateral 02/05/2021 EYE MUSCLE REPAIR RECESSION RESECTION performed by Miguel Childs MD at [facility] OR [facility] Medications: Current Outpatient Medications on File Prior [...] mouth daily. ??? naloxone (NARCAN) 4 mg/spray [place], Non-Aerosol EMERGENCY USE ONLY: Administer 1 spray [...] tablet Take 50 mcg by mouth daily biomedical technician. ??? atorvastatin (LIPITOR) 20 mg tablet Take [...] Childs MD Refraction Wearing Rx Sphere Cylinder [place] Add Horz Prism Right -0.25 +1.00 013 +3.00 Left -0.75 +1.75 152 +3.00 2.5 MEEK Age: 3m Type: PAL Wearing Rx #2 Sphere Cylinder [place] Add Horz Prism Right +2.00 Left +2.00 [...] recommended an independent opinion. Miguel Childs MD Phlebotomy Support Tech [facility] [address] [place] [address], [address] [place] [address] Office: [phone] E-mail: [email or web address] This medical record reflects the history of present illness as obtained by myself in discussion with the patient. 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
--- OUTSIDE RECORDS SUMMARY | 2024-04-17 17:12 | XMS_ITS | Encounter Summary ---
Author Organization [facility] Address [address] [place] [address] Care Team Providers Care Re Recording Mixer Name Role Phone Gadiel Zavala MD Primary Care Provider [phone] Encounter Details Date Type Department Care Team (Late st Contact Info) Description 06/27/2022 Abstract [facility] Neurosurgery - [facility] [address] [address] [place] [address] Mylene Gutierrez MD [address] [place] [address] -x0 (Work) Social History Tobacco Use Types [...] Coronavirus/COVID-19? No / Unsure 06/14/2022 10:01 AM CHARGE MANAGER documented as of this encounter Plan of Treatment Not on file documented as of this encounter Visit Diagnoses Not on filedocumented in this encounter Care Teams Re Recording Mixer Relationship Specialty Start Date End Date Gadiel Zavala MD [address] [place] [address] PCP - General Family Practice 03/03/17 documented as of this encounter
--- OUTSIDE RECORDS SUMMARY | 2024-04-17 17:12 | XMS_ITS | Encounter Summary ---
Author Organization [facility] Address [address] [place] [address] Care Team Providers Care Yoker Name Role Phone Gadiel Zavala MD Primary Care Provider [phone] Reason for Visit * Reason Comments Post-op Visit Encounter Details Date Type Department Care Team (Late st Contact Info) Description 02/12/2021 11:40 AM CDT Office Visit [facility] Children's Forestry Technician [facility] [place] A [address] [place] [phone] Miguel Childs MD [address] [facility] [place] [address] Binocular vision disorder with diplopia [...] TUBAL LIGATION ??? KYPHOPLASTY, LUMBAR 2016 ??? [place] CERV SPINE FUSN,ANTER,BELOW C2 N/A 02/16/2017 CERVICAL DISCECTOMY FUSION 1 LEVEL ANTERIOR, C3-4 performed by Mylene Gutierrez MD at [facility] OR [facility] ??? [place] IMPLANT SPINAL NEUROSTIM/MEDICAL ADMINISTRATIVE ASSISTANT N/A 11/16/2017 SPINAL CORD DORSAL COLUMN STIMULATOR REMOVAL performed by Mylene Gutierrez MD at [facility] ??? [place] STABISMUS SURG,TWO HORIZ MUSCLE Bilateral 02/05/2021 EYE MUSCLE REPAIR RECESSION RESECTION performed by Miguel Childs MD at [facility] OR [facility] Medications: Current Outpatient Medications on File [...] mouth daily. ??? naloxone (NARCAN) 4 mg/spray [place], Non-Aerosol EMERGENCY USE ONLY: Administer 1 spray [...] Take 50 mcg by mouth daily director institution. ??? atorvastatin (LIPITOR) 20 mg tablet Take [...] her in 1-2 weeks. Miguel Childs MD Supervisor L[place] [facility] [address] [place] [address], [address] [place] [address] Office: [phone] E-mail: [email or web address] This medical record reflects the history of present illness as obtained by myself in discussion with the patient. 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
--- OUTSIDE RECORDS SUMMARY | 2024-04-17 17:12 | XMS_ITS | Encounter Summary ---
Author Organization [facility] Address [address] [facility] Attn: Epic Prelude ADT [place] [address] Care Team Providers Care Cylinder Block Hole Reliner Name Role Phone Gadiel Zavala MD Primary Care Provider [phone] Encounter Details Date Type Department Care Team [...] on filedocumented in this encounter Care Teams Cylinder Block Hole Reliner Relationship Specialty Start Date End Date Gadiel Zavala MD [address] [place] [address] PCP - General Family Practice 03/03/17 documented as of this encounter
--- OUTSIDE RECORDS SUMMARY | 2024-04-17 17:12 | XMS_ITS | Encounter Summary ---
Author Organization [facility] Address [address] [place] [address] Care Team Providers Care Hide Dyer Name Role Phone Gadiel Zavala MD Primary Care Provider [phone] Reason for Visit * Reason Comments Double Vision Encounter Details Date Type Department Care Team (Late st Contact Info) Description 04/08/2021 10:00 AM ROLLER HELPER Office Visit [facility] Children's Lime Hide Inspector Medical [place] A [address] [place] [address] [place] [address] Miguel Childs MD [address] [facility] [address] [facility] [place] [address] Binocular vision disorder with diplopia [...] COVID-19? No / Unsure 04/08/2021 9:48 AM ROLLER HELPER documented as of this encounter Progress Notes [...] TUBAL LIGATION ??? KYPHOPLASTY, LUMBAR 2016 ??? MA CERV SPINE FUSN,ANTER,BELOW C2 N/A 02/16/2017 CERVICAL DISCECTOMY FUSION 1 LEVEL ANTERIOR, C3-4 performed by Mylene Gutierrez MD at [facility] OR [facility] ??? MA IMPLANT SPINAL NEUROSTIM/DYNAMIC BALANCER SET UP WORKER N/A 11/16/2017 SPINAL CORD DORSAL COLUMN STIMULATOR REMOVAL performed by Mylene Gutierrez MD at [facility] OR [facility] ??? MA STABISMUS SURG,TWO HORIZ MUSCLE Bilateral 02/05/2021 EYE MUSCLE REPAIR RECESSION RESECTION performed by Miguel Childs MD at [facility] OR [facility] Medications: Current Outpatient Medications on File [...] mouth daily. ??? naloxone (NARCAN) 4 mg/spray [place], Non-Aerosol EMERGENCY USE ONLY: Administer 1 spray [...] tablet Take 50 mcg by mouth daily personnel clerk. ??? atorvastatin (LIPITOR) 20 mg tablet Take [...] Childs MD Refraction Wearing Rx Sphere Cylinder [place] Add Horz Prism Right -1.00 +1.25 025 +2.50 2.0 out Left -0.50 +1.00 165 +2.50 2.0 out Manifest Refraction Sphere Cylinder [place] Add Right -0.50 +1.00 015 +3.00 Left -1.00 +2.00 150 +3.00 Final Rx Sphere Cylinder [place] Add Right -0.50 +1.00 015 +3.00 Left [...] her symptoms will subside. Miguel Childs MD Machine Tailer [facility] [address] [place] [address], [address] [place] [address] Office: [phone] E-mail: [email or web address] This medical record reflects the history of present illness as obtained by myself in discussion with the patient. 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
--- OUTSIDE RECORDS SUMMARY | 2024-04-17 17:12 | XMS_ITS | Encounter Summary ---
Author Organization [facility] Address [address] [place] [address] Care Team Providers Care Assembly Line Inspector Name Role Phone Gadiel Zavala MD Primary Care Provider [phone] Reason for Visit * Reason Onset Date Comments Double Vision 03/22/2021 Encounter Details Date Type Department Care Team (Late st Contact Info) Description 03/22/2021 Telephone [facility] Children's Water Plant Maintenance Mechanic Medical [place] A [address] [place] [address] [facility] [address] [place] [address] Double Vision Social History Tobacco [...] not carry Fresnel. Pt to come to [facility] to get fitted. Spoke with staff to let them know. She will need a 8BO OD. ATRONICS TECHNICIAN documented in this encounter Plan of Treatment Not on file documented as of this encounter Visit Diagnoses Not on filedocumented in this encounter Care Teams Assembly Line Inspector Relationship Specialty Start Date End Date Gadiel Zavala MD [facility] [place] [address] PCP - General Family Practice 03/03/17 documented as of this encounter
--- OUTSIDE RECORDS SUMMARY | 2024-04-17 17:12 | XMS_ITS | Encounter Summary ---
Author Organization [facility] Address [address] [place] [address] Care Team Providers Care Sanitation Technician Name Role Phone Gadiel Zavala MD Primary Care Provider [phone] Encounter Details Date Type Department Care Team (Late st Contact Info) Description 06/14/2022 Orders Only [facility] Neurosurgery - [facility] [address] [place] [address] Mylene Gutierrez MD [address] [facility] [address] [address] -x0 (Work) Cervical spondylosis (Primary Dx) Social [...] Coronavirus/COVID-19? No / Unsure 06/14/2022 10:01 AM SENIOR ELECTRICAL CONTROLS ENGINEER documented as of this encounter Plan of Treatment Not on file documented as of this encounter Visit Diagnoses Diagnosis Cervical spondylosis- Primary Cervical spondylosis without myelopathy documented in this encounter Care Teams Sanitation Technician Relationship Specialty Start Date End Date Gadiel Zavala MD [address] [place] [phone] PCP - General Family Practice 03/03/17 documented as of this encounter
--- OUTSIDE RECORDS SUMMARY | 2024-04-17 17:12 | XMS_ITS | Encounter Summary ---
Author Organization [facility] Address [address] [place] [address] Care Team Providers Care Live Source Operator Name Role Phone Gadiel Zavala MD Primary Care Provider [phone] Encounter Details Date Type Department Care Team (Late st Contact Info) Description 06/14/2022 Abstract [facility] Neurosurgery - [facility] [address] [place] [address] Mylene Gutierrez MD [address] [place] [address] -x0 (Work) Social History Tobacco Use Types [...] Coronavirus/COVID-19? No / Unsure 06/14/2022 10:01 AM HEAD OF SALES AND MARKETING documented as of this encounter Plan of Treatment Not on file documented as of this encounter Visit Diagnoses Not on filedocumented in this encounter Care Teams Live Source Operator Relationship Specialty Start Date End Date Gadiel Zavala MD [address] [place] [address] PCP - General Family Practice 03/03/17 documented as of this encounter
--- OUTSIDE RECORDS SUMMARY | 2024-04-17 17:12 | XMS_ITS | Encounter Summary ---
Author Organization [facility] Address [address] [facility] Attn: Epic Prelude ADT [place] [address] Care Team Providers Care World Travel Counselor Name Role Phone Gadiel Zavala MD Primary Care Provider [phone] Encounter Details Date Type Department Care Team [...] Date End Date Gadiel Zavala MD [address] [place] [address] PCP - General Family Practice 03/03/17 documented as of this encounter
--- OUTSIDE RECORDS SUMMARY | 2024-04-17 17:12 | XMS_ITS | Encounter Summary ---
Author Organization [facility] Address [address] [place] [address] Care Team Providers Care Filler Room Attendant Name Role Phone Gadiel Zavala MD Primary Care Provider [phone] Encounter Details Date Type Department Care Team (Late st Contact Info) Description 06/14/2022 Orders Only [facility] - [facility] [address] [place] [address] Mylene Gutierrez MD [address] [facility] [address] [address] -x0 (Work) Cervical spondylosis (Primary Dx) Social [...] Coronavirus/COVID-19? No / Unsure 06/14/2022 10:01 AM CREATIVE TECHNOLOGIST documented as of this encounter Plan of Treatment Not on file documented as of this encounter Visit Diagnoses Diagnosis Cervical spondylosis- Primary Cervical spondylosis without myelopathy documented in this encounter Care Teams Filler Room Attendant Relationship Specialty Start Date End Date Gadiel Zavala MD [address] [place] [phone] PCP - General Family Practice 03/03/17 documented as of this encounter
--- OUTSIDE RECORDS SUMMARY | 2024-04-17 17:12 | XMS_ITS | Encounter Summary ---
Author Organization [facility] Address [address] [place] [address] Care Team Providers Care Engraver Optical Frames Name Role Phone Gadiel Zavala MD Primary Care Provider [phone] Encounter Details Date Type Department Care Team (Late st Contact Info) Description 05/30/2022 Orders Only [facility] Neurosurgery - [facility] [address] [place] [address] Mylene Gutierrez MD [address] [facility] [address] [address] -x0 (Work) Social History Tobacco Use Types [...] on filedocumented in this encounter Care Teams Engraver Optical Frames Relationship Specialty Start Date End Date Gadiel Zavala MD [address] [place] [address] PCP - General Family Practice 03/03/17 documented as of this encounter
--- OUTSIDE RECORDS SUMMARY | 2024-04-17 17:12 | XMS_ITS | Encounter Summary ---
Author Organization [facility] Address [address] [place] [address] Care Team Providers Care Sweeper Brush Maker Machine Name Role Phone Gadiel Zavala MD Primary Care Provider [phone] Reason for Visit * Reason Onset Date Comments Double Vision 02/17/2021 Encounter Details Date Type Department Care Team (Late st Contact Info) Description 02/17/2021 Telephone [facility] Children's Bean Picker Medical [place] A [address] [place] [address] [place] [address] Miguel Childs MD [address] [facility] [address] [place] [address] Double Vision Social History Tobacco [...] on filedocumented in this encounter Care Teams Sweeper Brush Maker Machine Relationship Specialty Start Date End Date Gadiel Zavala MD [address] [place] [address] PCP - General Family Practice 03/03/17 documented as of this encounter
--- OUTSIDE RECORDS SUMMARY | 2024-04-17 17:12 | XMS_ITS | Encounter Summary ---
Author Organization [facility] Address [address] [place] [address] Care Team Providers Care Tile Mechanic Name Role Phone Gadiel Zavala MD Primary Care Provider [phone] Reason for Visit * Reason Comments Double Vision Encounter Details Date Type Department Care Team (Late st Contact Info) Description 02/25/2021 3:40 PM CDT Office Visit [facility] Children's Structures Technician Medical [place] A [address] [place] [address] [place] [address] Miguel Childs MD [address] [facility] [address] [facility] [address] Binocular vision disorder with diplopia [...] TUBAL LIGATION ??? KYPHOPLASTY, LUMBAR 2016 ??? LA CERV SPINE FUSN,ANTER,BELOW C2 N/A 02/16/2017 CERVICAL DISCECTOMY FUSION 1 LEVEL ANTERIOR, C3-4 performed by Mylene Gutierrez MD at [facility] OR [facility] ??? LA IMPLANT SPINAL NEUROSTIM/TAR POT MAN N/A 11/16/2017 SPINAL CORD DORSAL COLUMN STIMULATOR REMOVAL performed by Mylene Gutierrez MD at [facility] OR [facility] ??? LA STABISMUS SURG,TWO HORIZ MUSCLE Bilateral 02/05/2021 EYE MUSCLE REPAIR RECESSION RESECTION performed by Miguel Childs MD at [facility] OR [facility] Medications: Current Outpatient Medications on File Prior [...] mouth daily. ??? naloxone (NARCAN) 4 mg/spray [place], Non-Aerosol EMERGENCY USE ONLY: Administer 1 spray [...] tablet Take 50 mcg by mouth daily geriatric nurse assistant. ??? 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 I offered reassurance and we discussed options including a Fresnel prism and occlusion. Miguel Childs MD [employer] Teacher [facility] [address] [place] [address], [address] [place] [address] Office: [phone] E-mail: [email or web address] This medical record reflects the history of present illness as obtained by myself in discussion with the patient. documented in this encounter Plan of Treatment Not on file documented as of this encounter Visit Diagnoses Diagnosis Binocular vision disorder with diplopia- Primary Diplopia documented in this encounter Care Teams Tile Mechanic Relationship Specialty Start Date End Date Gadiel Zavala MD [address] [place] [phone] PCP - General Family Practice 03/03/17 documented as of this encounter
--- OUTSIDE RECORDS SUMMARY | 2024-04-17 17:12 | XMS_ITS | Encounter Summary ---
Author Organization [facility] Address [address] [facility] Attn: Epic Prelude ADT [place] [address] Care Team Providers Care Industrial Designer Name Role Phone Gadiel Zavala MD Primary Care Provider [phone] Encounter Details Date Type Department Care Team [...] COVID-19? No / Unsure 04/08/2021 9:48 AM DOCUMENT MANAGEMENT CONSULTANT documented as of this encounter Plan of Treatment Not on file documented as of this encounter Visit Diagnoses Not on filedocumented in this encounter Care Teams Industrial Designer Relationship Specialty Start Date End Date Gadiel Zavala MD [address] [place] [address] PCP - General Family Practice 03/03/17 documented as of this encounter
--- OUTSIDE RECORDS SUMMARY | 2024-04-17 17:12 | XMS_ITS | Encounter Summary ---
Author Organization [facility] Address [address] [place] [address] Care Team Providers Care Accountant Machine Processing Name Role Phone Gadiel Zavala MD Primary Care Provider [phone] Reason for Visit * Reason Onset Date Comments Double Vision 05/05/2021 Encounter Details Date Type Department Care Team (Late st Contact Info) Description 05/05/2021 Telephone [facility] Children's Structural Steel Detailer Medical [place] A [address] [facility] [address] [place] [address] Miguel Childs MD [address] [facility] [address] [place] [address] Double Vision Social History Tobacco [...] COVID-19? No / Unsure 04/08/2021 9:48 AM CARE PARTNER documented as of this encounter Miscellaneous Notes * Telephone Encounter - Miguel Childs MD - 05/05/2021 10:35 AM CST Called and discussed persistent double vision. Updated glasses improve acuity. Will try 2 prism diopter base out off OS. PARTNER documented in this encounter Plan of Treatment Not on file documented as of this encounter Visit Diagnoses Not on filedocumented in this encounter Care Teams Accountant Machine Processing Relationship Specialty Start Date End Date Gadiel Zavala MD [address] [place] [address] PCP - General Family Practice 03/03/17 documented as of this encounter
--- OUTSIDE RECORDS SUMMARY | 2024-04-17 17:12 | XMS_ITS | Encounter Summary ---
Author Organization [facility] Address [address] [place] [address] Care Team Providers Care Allocations Clerk Name Role Phone aGdiel Zavala MD Primary Care Provider [phone] Reason for Visit * Reason Onset Date Comments Update 03/04/2021 Encounter Details Date Type Department Care Team (Late st Contact Info) Description 03/04/2021 Telephone [facility] Children's Sand Worker Medical [place] A [address] [place] [address] [place] [address] Miguel Childs MD [address] [facility] [address] [facility] [place] [address] Update Social History Tobacco Use [...] on filedocumented in this encounter Care Teams Allocations Clerk Relationship Specialty Start Date End Date Gadiel Zavala MD [address] [place] [address] PCP - General Family Practice 03/03/17 documented as of this encounter
--- OUTSIDE RECORDS SUMMARY | 2024-04-17 17:12 | XMS_ITS | Encounter Summary ---
Author Organization [facility] Address [address] [place] [address] Care Team Providers Care Kiln Maintenance Name Role Phone Gadiel Zavala MD Primary Care Provider [phone] Reason for Referral * Eval and Treat (Routine) - Closed Specialty Diagnoses / Procedures Referred By Contac t Referred To Contact Neurology Diagnoses Cervical spondylosis Mylene Gutierrez MD [address] [place] [address] x0 Hiro Rust MD [address] [place] [address] Referral ID Status Reason Start Date Expiration Date Visits Re quested Visits Authorized [id number] Closed 06/14/2022 06/14/2023 1 1 USION SPECIAL EDUCATION TEACHER * Eval and Treat (Routine) - Closed Specialty Diagnoses / Procedures Referred By Contac t Referred To Contact Pain Management Diagnoses Cervical spondylosis Mylene Gutierrez MD [address] [place] [address]0 Referral ID Status Reason Start Date Expiration Date Visits Re quested Visits Authorized [id number] Closed 06/14/2022 06/14/2023 1 1 USION SPECIAL EDUCATION TEACHER * Physical Therapy (Routine) - Closed Specialty Diagnoses / Procedures Referred By Contac t Referred To Contact Physical Therapy Diagnoses Cervical spondylosis Mylene Gutierrez MD [address] [place], [place] [address] [place] [address]0 Referral ID Status Reason Start Date Expiration Date Visits Re quested Visits Authorized [id number] Closed 06/14/2022 06/14/2023 24 24 USION SPECIAL EDUCATION TEACHER Encounter Details Date Type Department Care Team (Late st Contact Info) Description 06/14/2022 Orders Only [facility] Neurosurgery - [facility] A [address] [facility] [address] [place] [address] Mylene Gutierrez MD [address] [place] [address]x0 (Work) Cervical spondylosis (Primary Dx) Social [...] Coronavirus/COVID-19? No / Unsure 06/14/2022 10:01 AM INCLUSION SPECIAL EDUCATION TEACHER documented as of this encounter Plan of [...] myelopathy documented in this encounter Care Teams Kiln Maintenance Relationship Specialty Start Date End Date Gadiel Zavala MD [address] [place] [address] PCP - General Family Practice 03/03/17 documented as of this encounter
--- OUTSIDE RECORDS SUMMARY | 2024-04-17 17:12 | XMS_ITS | Encounter Summary ---
Author Organization [facility] Address [address] [facility] Attn: Epic Prelude ADT [place] [address] Care Team Providers Care Chargemaster Specialist Name Role Phone Gadiel Zavala MD Primary Care Provider [phone] Encounter Details Date Type Department Care Team [...] Coronavirus/COVID-19? No / Unsure 06/14/2022 10:01 AM ABSTRACT CLERK documented as of this encounter Plan of Treatment Not on file documented as of this encounter Visit Diagnoses Not on filedocumented in this encounter Care Teams Chargemaster Specialist Relationship Specialty Start Date End Date Gadiel Zavala MD [address] [place] [address] PCP - General Family Practice 03/03/17 documented as of this encounter
--- OUTSIDE RECORDS SUMMARY | 2024-04-17 17:12 | XMS_ITS | Encounter Summary ---
Author Organization [facility] Address [address] [facility] Attn: Epic Prelude ADT [place] [address] Care Team Providers Care Engine House Helper Name Role Phone Gadiel Zavala MD Primary Care Provider [phone] Encounter Details Date Type Department Care Team [...] on filedocumented in this encounter Care Teams Engine House Helper Relationship Specialty Start Date End Date Gadiel Zavala MD [address] [place] [address] PCP - General Family Practice 03/03/17 documented as of this encounter
--- OUTSIDE RECORDS SUMMARY | 2024-04-17 17:12 | XMS_ITS | Encounter Summary ---
Author Organization [facility] Address [address] [place] [address] Care Team Providers Care Database Dba Name Role Phone Gadiel Zavala MD Primary Care Provider [phone] Reason for Visit * Reason Comments Consult Cervical Spine, last seen 01/19/18 Encounter Details Date Type Department Care Team (Latest Contact Info) Description 06/14/2022 10:00 AM SENSOR SPECIALIST Office [facility] Neurosurgery - [facility] [address] [address] Mylene Gutierrez MD [address] [place], [place] [address] [place], [place] [phone] -x0 (Work) Cervical spondylosis (Primary Dx); Foraminal [...] Coronavirus/COVID-19? No / Unsure 06/14/2022 10:01 AM SENSOR SPECIALIST documented as of this encounter Last Filed Vital Signs Vital Sign Reading Time Taken Comments Blood Pressure 122/80 06/14/2022 10:12 AM SENSOR SPECIALIST Pulse 57 06/14/2022 10:12 AM SENSOR SPECIALIST Temperature - - Respiratory Rate - - Oxygen Saturation - - Inhaled Oxygen Concentration - - Weight 57.4 kg (126 lb 8 oz) 06/14/2022 10:12 AM SENSOR SPECIALIST Height 152.4 cm (5') 06/14/2022 10:12 AM SENSOR SPECIALIST Body Mass Index 24.71 06/14/2022 10:12 AM SENSOR SPECIALIST documented in this encounter Progress Notes * Mylene Gutierrez MD - 06/14/2022 10:06 AM CST [facility] Neurosurgery H&P Patient Name: Kaitlin Bond : [...] 1993 HX TUBAL LIGATION KYPHOPLASTY, LUMBAR 2016 [place] ARTHRD ANT INTERBODY MIN DSC CRV BELOW C2 N/A 02/16/2017 CERVICAL DISCECTOMY FUSION 1 LEVEL ANTERIOR, C3-4 performed by Myleen Gutierrez MD at [facility] [place] INSJ/RPLCMT SPI NPGR DIR/INDUXIVE COUPLING N/A 11/16/2017 SPINAL CORD DORSAL COLUMN STIMULATOR REMOVAL performed by Mylene Gutierrez MD at [facility] [place] STRABISMUS RECESSION/RESCJ 2 HRZNTL MUSC Bilateral 02/05/2021 EYE MUSCLE REPAIR RECESSION RESECTION performed by Miguel Childs MD at [facility] No family history on file. Social History [...] by mouth daily. naloxone (NARCAN) 4 mg/spray [place], Non-Aerosol EMERGENCY USE ONLY: Administer 1 spray [...] tablet Take 50 mcg by mouth daily account processor. atorvastatin (LIPITOR) 20 mg tablet Take 20 [...] Muhammad PA-C. This dictation was completed using [employer]. Director Of Physical Therapy variances may occur. OR SPECIALIST documented in this encounter Plan of Treatment Not on file documented as of this encounter Visit Diagnoses Diagnosis Cervical spondylosis- Primary Cervical spondylosis without myelopathy Foraminal stenosis of cervical region Spinal stenosis in cervical region documented in this encounter Care Teams Database Dba Relationship Specialty Start Date End Date Gadiel Zavala MD [address] [place] [address] PCP - General Family Practice 03/03/17 documented as of this encounter
--- OUTSIDE RECORDS SUMMARY | 2024-04-17 17:13 | XMS_ITS | Encounter Summary ---
Author Organization [facility] Address [address] [place] [address] Care Team Providers Care Tree Fruit And Nut Crops Farmer Name Role Phone Gadiel Zavala MD Primary Care Provider [phone] Encounter Details Date Type Department Care Team (Latest Contact Info) Description 02/05/2021 11:06 AM CDT - 02/05/2021 5:15 PM CDT Hospital Encounter [facility] C[facility] [address] [place] [address] Miguel Childs MD [address] [facility] [address] [place] [address] Exotropia, intermittent, monocular Discharge Disposition: [...] or come to the Emergency Room at [facility] ([phone]) or the nearest Emergency Room. In an [...] or come to the Emergency Room at [facility] ([phone]) or the nearest Emergency Room. In an [...] by mouth daily. naloxone (NARCAN) 4 mg/spray [place], Non-Aerosol EMERGENCY USE ONLY: Administer 1 spray [...] tablet Take 50 mcg by mouth daily belt brander. atorvastatin (LIPITOR) 20 mg tablet Take 20 [...] Bond Age: 70 y.o. Sex: female CSN: [id number] Pre-op Diagnosis: Exotropia Procedure: Procedure(s): EYE MUSCLE [...] TUBAL LIGATION ??? KYPHOPLASTY, LUMBAR 2017 ??? [place] CERV SPINE FUSN,ANTER,BELOW C2 N/A 02/16/2017 CERVICAL DISCECTOMY FUSION 1 LEVEL ANTERIOR, C3-4 performed by Mylene Gutierrez MD at [facility] OR [facility] ??? [place] IMPLANT SPINAL NEUROSTIM/HOME CARE COORDINATOR N/A 11/16/2017 SPINAL CORD DORSAL COLUMN STIMULATOR REMOVAL performed by Mylene Gutierrez MD at [facility] OR [facility] Past Anesthesia History: No anesthesia problems/complications [...] thought the problemwas minor she should call manufacturing plant manager. Pt stated she was not in distress and would call concerns to manufacturing plant manager. I set her up and appt to [...] pain/comfort utilizing verbal/nonverbal pain scales; assess culturalor advent indicators attached to pain; administer pain medications [...] Procedure Name Priority Date/Time Associated Diagnosis Comments [place] STRABISMUS RECESSION/RESCJ 2 HRZNTL [facility] [place] 02/05/2021 1:26 PM CDT Exotropia, intermittent, monocular Binocular vision disorder with diplopia Case Notes CPT 45731 LT AETNA MCR ADV NO PA NEEDED [...] MD) documented in this encounter Care Teams Tree Fruit And Nut Crops Farmer Relationship Specialty Start Date End Date Gadiel Zavala MD [address] [place] [phone] PCP - General Family Practice 03/03/17 documented as of this encounter
--- OUTSIDE RECORDS SUMMARY | 2024-04-17 17:13 | XMS_ITS | Encounter Summary ---
Author Organization [facility] Address [address] [place] [address] Care Team Providers Care Youth Support Worker Name Role Phone Gadiel Zavala MD Primary Care Provider [phone] Encounter Details Date Type Department Care Team (Latest Contact Info) Description 01/25/2021 1:54 PM CDT - 01/25/2021 11:59 PM CDT Hospital Encounter [facility] [address] [place] [address] Miguel Childs MD [address] [facility] [address] [facility] [place] [address] Discharge Disposition: Home or Self [...] by mouth daily. naloxone (NARCAN) 4 mg/spray [place], Non-Aerosol EMERGENCY USE ONLY: Administer 1 spray [...] tablet Take 50 mcg by mouth daily can cleaner. atorvastatin (LIPITOR) 20 mg tablet Take 20 [...] for Insomnia. documented as of this encounter OR Notes * Anesthesia PAT Evaluation - Dale Garza MD - 01/25/2021 2:00 PM CDT Pre-Procedure Anesthesiology Consultation and Evaluation (PACE) Service 01/25/2021 2:47 PM Name: Kaitlin Bond Age: 70 y.o. Sex: female CSN: [id number] Procedure: Procedure(s): EYE MUSCLE REPAIR RECESSION RESECTION [...] TUBAL LIGATION ??? KYPHOPLASTY, LUMBAR 2017 ??? [place] CERV SPINE FUSN,ANTER,BELOW C2 N/A 02/16/2017 CERVICAL DISCECTOMY FUSION 1 LEVEL ANTERIOR, C3-4 performed by Mylene Gutierrez MD at [facility] OR [facility] ??? [place] IMPLANT SPINAL NEUROSTIM/AUTOMOTIVE TIRE TESTER N/A 11/16/2017 SPINAL CORD DORSAL COLUMN STIMULATOR REMOVAL performed by Mylene Gutierrez MD at [facility] OR [facility] Social History Tobacco Use ??? Smoking [...] Endocrine hypothyroidism No results found for: HGBA1C, [id number] Renal:negative Hematology/Oncology:negative Lab Results Component Value Date/Time [...] was obtained directly from the patient or technical services representative or caregiver or another available healthcare resource and updated in [facility] EMR. Patient screened for tobacco use and identified as a Non-User of tobacco. REPORT AND NECESSARY FOLLOW-UP History and physical performed in [place]; tests (ECG, blood work) reviewed. Abnormal Results Found: no Further Testing or Evaluation Required: no Final [place] Center Review: May proceed with procedure/surgery: yes [...] plan as documented except where noted. Dale Gazra M.D. Anesthesiologist Zone Phone: [phone] * Simran-OP - Agnes Rodriguez RN - 01/25/2021 2:00 PM CDT Images from the original note were not included. ? [facility] Routine Orders Protocol [facility] Approved by: [facility] - Medical Executive Committee Approval Date: 07/16/2020 ORDERS ARE ENTERED ???PER PROTOCOL?? Enter the protocol in the patient's electronic health record using smart phrase: .paceroutineordersprotocol PACE/Anesthesiology Care Screening for Procedures ??? Laboratory exams obtained within 3 months prior to surgery are acceptable if normal, or at baseline. ??? Hematocrit/Hemoglobin (Nke3160) ??? Cases of expected major blood loss [...] Digoxin - Diuretics - Steroids ??? BUN (Hor134)/ Serum Cr (Lab66) ??? When use of [...] otherwise ordered by a member of the [place] Anesthesiology Staff. 1. STOP a. Seven (7) DAYS PRIOR TO SURGERY: the use of all vitamins, herbal supplements, and other alternative substances. b. Seven (7) DAYS PRIOR TO SURGERY: the use of any UNPRESCRIBED Aspirin, Excedrin and NSAIDs which include Motrin, Ibuprofen, Aleve, and Naprosyn. c. 24 HOURS PRIOR TO PLANNED ARRIVAL AT [facility]: use of angiotensin-converting enzyme ([place]ST[place]) inhibitorand [...] Rodriguez RN - 01/25/2021 2:00 PM CDT [facility] Pre-Procedure Instructions PACE PACE Name: Kaitlin Bond Age: 70 y.o. Please report to the: Surgery Center - [facility] Date of Procedure: 02/05/21 Date of COVID Test: TO [place] D[place] ON 02/01/21- NEEDS TO BE PCR TESTING, HAVE RESULTS FAXED TO SURGEON'S OFFICE [phone] AND BRING HARD COPY ON DAY OF [...] surgery. ?? 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 DO NOT [...] - 9.8 K/uL 01/25/2021 3:44 PM CDT [facility] - [facility] [place] RBC 4.33 3.90 - 4.90 M/uL 01/25/2021 3:44 PM CDT [facility] - [facility] HEMOGLOBIN 13.2 11.8 - 14.8 g/dL 01/25/2021 3:44 PM CDT [facility] HEMATOCRIT 40.1 35.5 - 44.0 % 01/25/2021 3:44 PM CDT [facility] - . [place] MCV 92.6 82.0 - 99.0 fL 01/25/2021 3:44 PM CDT [facility] - . [place] MCH 30.5 27.2 - 32.6 pg 01/25/2021 3:44 PM CDT [facility] - . [facility] MCHC 32.9 31.5 - 35.5 g/dL 01/25/2021 3:44 PM CDT [facility] SERVICES - [facility] PLATELETS 326 140 - 350 K/uL 01/25/2021 3:44 PM CDT [facility] - . [facility] MPV 10.3 9.3 - 12.4 fL 01/25/2021 3:44 PM CDT [facility] - . [place] RDW 13.0 11.5 - 14.5 % 01/25/2021 3:44 PM CDT [facility] - [facility] RDW-STDEV 44.2 37.1 - 48.7 fL 01/25/2021 3:44 PM CDT [facility] - [facility] Blood Venipuncture / Unknown 01/25/2021 2:32 PM CDT 01/25/2021 3:36 PM CDT Brice Aguilera PA-C HEMATOLOGY ORD ERABLES [facility] - [facility] BLOSSOMIA# [id number] [address] [place] [address] [place] [address] * (ABNORMAL) BASIC METABOLIC PANEL (01/25/2021 2:32 PM CDT) SODIUM 138 136 - 145 mmol/L 01/25/2021 4:22 PM CDT [facility]ATORY [facility] - . [facility] POTASSIUM 4.1 3.5 - 5.0 mmol/L 01/25/2021 4:22 PM CDT [facility] - . [place] CHLORIDE 100 98 - 107 mmol/L 01/25/2021 4:22 PM CDT [facility] - [facility] CO2 28 22 - 29 mmol/L 01/25/2021 4:22 PM CDT [facility] - . [place] CALCIUM 9.8 8.6 - 10.2 mg/dL 01/25/2021 4:22 PM CDT [facility] - [facility] BUN 11 8 - 23 mg/dL 01/25/2021 4:22 PM CDT [facility]ORY [facility] - . [facility] CREATININE 0.62 0.51 - 0.95 mg/dL 01/25/2021 4:22 PM T [facility]ORY [facility] - [facility] Comment:The GFR result is no t clinically significant on patients <18 or >70 years of age. GLUCOSE 100(H) 74 - 99 mg/dL 01/25/2021 4:22 PM CDT [facility] - [facility] GFR >60 mL/min/1.7 3 sq meter 01/25/2021 4:22 PM T [facility] - [facility] Comment: eGFR has not been validated for [...] 3 sq meter 01/25/2021 4:22 PM CDT [facility] LABORATORY SERVICES [facility] ANION GAP 10 8 - 16 mmol/L 01/25/2021 4:22 PM T [facility] - [facility] Blood Venipuncture / Unknown 01/25/2021 2:32 PM CDT 01/25/2021 3:36 PM CDT Brice Aguilera PA-C CHEMISTRY STACY OLIVIA Performing Organization Address City/State/[facility] Co de Phone Number [facility] LABOR[facility]ORY SERVICES [facility]# [id number] [address] [place] [address] documented in this encounter Visit Diagnoses Not on filedocumented in this encounter Care Teams Youth Support Worker Relationship Specialty Start Date End Date Gadiel Zavala MD [address] [place] [address] PCP - General Family Practice 03/03/17 documented as of this encounter
--- OUTSIDE RECORDS SUMMARY | 2024-04-17 17:13 | XMS_ITS | Encounter Summary ---
Author Organization [facility] Address [address] [place] [address] Care Team Providers Care Fish Rod Maker Name Role Phone Gadiel Zavala MD Primary Care Provider [phone] Encounter Details Date Type Department Care Team (Late st Contact Info) Description 01/27/2021 Prep for Surgery [facility] Children's Cellar Packer Medical [place] [address] [address] [facility] [address] [place] [address] Miguel Childs MD [address] [facility] [address] [place] [address] Exotropia (Primary Dx) Social History [...] unspecified documented in this encounter Care Teams Fish Rod Maker Relationship Specialty Start Date End Date Gadiel Zavala MD [address] [place] [phone] PCP - General Family Practice 03/03/17 documented as of this encounter
--- OUTSIDE RECORDS SUMMARY | 2024-04-17 17:13 | XMS_ITS | Encounter Summary ---
Author Organization [facility] Address [address] [place] [address] Care Team Providers Care Ignition Mechanic Name Role Phone Gadiel Zavala MD Primary Care Provider [phone] Encounter Details Date Type Department Care Team (Late st Contact Info) Description 02/05/2021 1:26 PM CDT - 02/05/2021 3:26 PM CDT Surgery [facility] Operating Room [address] [place] [address] Miguel Childs MD [address] [facility] [address] [place] [address] EYE MUSCLE REPAIR RECESSION RESECTION [...] MD Primary Ophthalmology 1 Case Notes CPT 17155 LT AETNA MCR ADV NO PA NEEDED [...] or come to the Emergency Room at [facility] ([phone]) or the nearest Emergency Room. In an [...] or come to the Emergency Room at [facility] ([phone]) or the nearest Emergency Room. In an [...] by mouth daily. naloxone (NARCAN) 4 mg/spray [place], Non-Aerosol EMERGENCY USE ONLY: Administer 1 spray [...] tablet Take 50 mcg by mouth daily thread checker. atorvastatin (LIPITOR) 20 mg tablet Take 20 [...] Bond Age: 70 y.o. Sex: female CSN: [id number] Pre-op Diagnosis: Exotropia Procedure: Procedure(s): EYE MUSCLE [...] TUBAL LIGATION ??? KYPHOPLASTY, LUMBAR 2016 ??? [place] CERV SPINE FUSN,ANTER,BELOW C2 N/A 02/16/2017 CERVICAL DISCECTOMY FUSION 1 LEVEL ANTERIOR, C3-4 performed by Mylene Gutierrez MD at [facility] OR [facility] ??? [place] IMPLANT SPINAL NEUROSTIM/FRONT EDGER N/A 11/16/2017 SPINAL CORD DORSAL COLUMN STIMULATOR REMOVAL performed by Mylene Gutierrez MD at [facility] OR [facility] Past Anesthesia History: No anesthesia problems/complications [...] thought the problemwas minor she should call sewer tapper. Pt stated she was not in distress and would call concerns to sewer tapper. I set her up and appt to [...] pain/comfort utilizing verbal/nonverbal pain scales; assess culturalor restoration indicators attached to pain; administer pain medications [...] Procedure Name Priority Date/Time Associated Diagnosis Comments [place] STRABISMUS RECESSION/RESCJ 2 HRZNTL [facility] 02/05/2021 1:26 PM CDT Exotropia, intermittent, monocular Binocular vision disorder with diplopia Case Notes CPT 64146 LT AETNA MCR ADV NO PA NEEDED [...] MD) documented in this encounter Care Teams Ignition Mechanic Relationship Specialty Start Date End Date Gadiel Zavala MD [address] [place] [phone] PCP - General Family Practice 03/03/17 documented as of this encounter
--- OUTSIDE RECORDS SUMMARY | 2024-04-17 17:13 | XMS_ITS | Encounter Summary ---
Author Organization [facility] Address [address] [facility] Attn: Epic Prelude ADT [place] [address] Care Team Providers Care Child Care Attendant Name Role Phone Gadiel Zavala MD Primary Care Provider [phone] Encounter Details Date Type Department Care Team [...] on filedocumented in this encounter Care Teams Child Care Attendant Relationship Specialty Start Date End Date Gadiel Zavala MD [address] [place] [address] PCP - General Family Practice 03/03/17 documented as of this encounter
--- OUTSIDE RECORDS SUMMARY | 2024-04-17 17:13 | XMS_ITS | Encounter Summary ---
Author Organization [facility] Address [address] [place] [address] Care Team Providers Care Fishing Rod Assembler Name Role Phone Gadiel Zavala MD Primary Care Provider [phone] Encounter Details Date Type Department Care Team (Late st Contact Info) Description 02/05/2021 Prep for Surgery [facility] Children's Womens Volleyball Coach Medical [facility] [address] [facility] [address] [place] [address] Miguel Childs MD [address] [facility] [address] [place] [address] Exotropia (Primary Dx) Social History [...] unspecified documented in this encounter Care Teams Fishing Rod Assembler Relationship Specialty Start Date End Date Gadiel Zavala MD [address] [place] [phone] PCP - General Family Practice 03/03/17 documented as of this encounter
--- OUTSIDE RECORDS SUMMARY | 2024-04-17 17:13 | XMS_ITS | Encounter Summary ---
Author Organization [facility] Address [address] [place] [address] Care Team Providers Care Performance Improvement Coordinator Name Role Phone Gadiel Zavala MD Primary Care Provider [phone] Reason for Visit * Reason Onset Date Comments Surgery Scheduling, Other 02/04/2021 Encounter Details Date Type Department Care Team (Late st Contact Info) Description 02/04/2021 Telephone [facility] Children's Lead Military Analyst Medical [place] [address] [place] [address] Miguel Childs MD [address] [place] [address] Surgery Scheduling, Other Social History [...] on filedocumented in this encounter Care Teams Performance Improvement Coordinator Relationship Specialty Start Date End Date Gadiel Zavala MD [address] [place] [phone] PCP - General Family Practice 03/03/17 documented as of this encounter
--- OUTSIDE RECORDS SUMMARY | 2024-04-17 17:13 | XMS_ITS | Encounter Summary ---
Author Organization [facility] Address [address] [place] [address] Care Team Providers Care Charge Master Analyst Name Role Phone Gadiel Zavala MD Primary Care Provider [phone] Encounter Details Date Type Department Care Team (Late st Contact Info) Description 02/05/2021 12:55 PM CDT Anesthesia Event [facility] Operating Room [address] [place] [address] Eloina Jiménez MD [address] [place] [address] Anesthesia Record Procedure Summary Procedure [...] to blood products. Plan discussed with Nurse Stacker Operator and Surgeon. Post-op Pain Control Plan to use IV or IM medication, Oral medication and Per surgeon for post-op pain control. Plan for postoperative opioid use Smoking Compliance Patient did not smoke on day of surgery documented in this encounter Plan of Treatment Not on file documented as of this encounter Procedures Procedure Name Priority Date/Time Associated Diagnosis Comments MI ANES INSERT ENDOTRACHEAL AIRWAY Routine 02/05/2021 1:17 PM CDT documented in this encounter Results * MI ANES INSERT ENDOTRACHEAL AIRWAY (02/05/2021 1:17 PM [...] mg documented in this encounter Care Teams Charge Master Analyst Relationship Specialty Start Date End Date Gadiel Zavala MD [address] [place] [address] PCP - General Family Practice 03/03/17 documented as of this encounter
--- OUTSIDE RECORDS SUMMARY | 2024-04-17 17:13 | XMS_ITS | Encounter Summary ---
Author Organization [facility] Address [address] [facility] Attn: Epic Prelude ADT [place] [address] Care Team Providers Care Yam Curer Name Role Phone Gadiel Zavala MD Primary Care Provider [phone] Encounter Details Date Type Department Care Team [...] on filedocumented in this encounter Care Teams Yam Curer Relationship Specialty Start Date End Date Gadiel Zavala MD [address] [place] [address] PCP - General Family Practice 03/03/17 documented as of this encounter
--- OUTSIDE RECORDS SUMMARY | 2024-04-17 17:13 | XMS_ITS | Encounter Summary ---
Author Organization [facility] Address [address] [place] [address] Care Team Providers Care Community Health Advocate Name Role Phone Gadiel Zavala MD Primary Care Provider [phone] Reason for Visit * Reason Onset Date Comments Lazy Eye 02/06/2021 Encounter Details Date Type Department Care Team (Late st Contact Info) Description 02/06/2021 Telephone [facility] Children's Associate Merchandiser Medical [place] A [address] [place] [phone] Miguel Childs MD [address] [facility] [address] [facility] [place] [address] L[place] Eye Social History Tobacco [...] on filedocumented in this encounter Care Teams Community Health Advocate Relationship Specialty Start Date End Date Gadiel Zavala MD [address] [place] [address] PCP - General Family Practice 03/03/17 documented as of this encounter
--- OUTSIDE RECORDS SUMMARY | 2024-04-17 17:13 | XMS_ITS | Encounter Summary ---
Author Organization [facility] Address [address] [facility] Attn: Epic Prelude ADT [place] [address] Care Team Providers Care Head Machinist Name Role Phone Gadiel Zavala MD Primary Care Provider [phone] Encounter Details Date Type Department Care Team [...] on filedocumented in this encounter Care Teams Head Machinist Relationship Specialty Start Date End Date Gadiel Zavala MD [address] [place] [address] PCP - General Family Practice 03/03/17 documented as of this encounter
--- OUTSIDE RECORDS SUMMARY | 2024-04-17 17:14 | XMS_ITS | Encounter Summary ---
Author Organization [facility] Address [address] [place] [address] Care Team Providers Care Multiple Cut Off Saw Operator Name Role Phone Gadiel Zavala MD Primary Care Provider [phone] Encounter Details Date Type Department Care Team (Late st Contact Info) Description 11/27/2020 Orders Only [facility] Children's Rn Progressive Care Unit Medical [place] A [address] [facility] [address] [place] [address] Miguel Childs MD [address] [facility] [place] [address] Social History Tobacco Use Types [...] filedocumented in this encounter Care Teams Multiple Cut Off Saw Operator Relationship Specialty Start Date End Date Gadiel Zavala MD [address] [place] [address] PCP - General Family Practice 03/03/17 documented as of this encounter
--- OUTSIDE RECORDS SUMMARY | 2024-04-17 17:14 | XMS_ITS | Encounter Summary ---
Author Organization [facility] Address [address] [place] [address] Care Team Providers Care Acid Purifier Name Role Phone Gadiel Zavala MD Primary Care Provider [phone] Reason for Visit * Auth/Cert Specialty Diagnoses / Procedures Referred By Contac t Referred To Contact Radiology [address] [address] Referral ID Status Reason Start Date Expiration Date Visits Re quested Visits Authorized [id number] 1 1 Encounter Details Date Type Department Care Team (Latest Contact Info) Description 03/17/2017 8:58 AM OVERLOCK OPERATOR - 03/17/2017 11:59 PM [facility] Hospital Encounter [facility] Medical Medical [address] [address] Mylene Gutierrez MD [address] [facility] [address] [facility] [place] [address] -[phone] (Work) Discharge Disposition: Home [...] tablet Take 50 mcg by mouth daily advertising account manager. atorvastatin (LIPITOR) 20 mg tablet Take [...] OR 3 VIEWS Routine 03/17/2017 9:04 AM OVERLOCK OPERATOR Cervical stenosis of spine documented in this encounter Results * XR CERVICAL SPINE 2 OR 3 VIEWS (03/17/2017 9:04 AM OVERLOCK OPERATOR) Anatomical Region Laterality Modality Spine Computed Radiogr aphy 03/17/2017 9:04 AM OVERLOCK OPERATOR Impressions 03/17/2017 5:06 PM OVERLOCK OPERATOR IMPRESSION: Multilevel cervical spondylosis without significant change. Narrative 03/17/2017 5:06 PM OVERLOCK OPERATOR XR CERVICAL SPINE 2 OR 3 VIEWS [...] region documented in this encounter Care Teams Acid Purifier Relationship Specialty Start Date End Date Gadiel Zavala MD [facility] [place] [address] PCP - General Family Practice 03/03/17 documented as of this encounter
--- OUTSIDE RECORDS SUMMARY | 2024-04-17 17:14 | XMS_ITS | Encounter Summary ---
Author Organization [facility] Address [address] [place] [address] Care Team Providers Care Returns Clerk Name Role Phone Gadiel Zavala MD Primary Care Provider [phone] Reason for Visit * Reason Onset Date Comments Surgery Scheduling, Other 11/27/2020 Encounter Details Date Type Department Care Team (Late st Contact Info) Description 11/27/2020 Telephone [facility] Children's Environmental Engineer Medical [place] A [address] [place] [address] Miguel Childs MD [address] [place] [address] Surgery Scheduling, Other Social History [...] on filedocumented in this encounter Care Teams Returns Clerk Relationship Specialty Start Date End Date Gadiel Zavala MD [address] [place] [phone] PCP - General Family Practice 03/03/17 documented as of this encounter
--- OUTSIDE RECORDS SUMMARY | 2024-04-17 17:14 | XMS_ITS | Encounter Summary ---
Author Organization [facility] Address [address] [place] [address] Care Team Providers Care Health Editor Name Role Phone Gadiel Zavala MD Primary Care Provider [phone] Reason for Visit * Reason Onset Date Comments Surgery Scheduling, Other 12/14/2020 Encounter Details Date Type Department Care Team (Late st Contact Info) Description 12/14/2020 Telephone [facility] Children's Advance Seal Delivery System Maintainer Medical [place] A [address] [place] [address] Miguel Childs MD [address] [place] [address] Surgery Scheduling, Other Social History [...] on filedocumented in this encounter Care Teams Health Editor Relationship Specialty Start Date End Date Gadiel Zavala MD [address] [place] [phone] PCP - General Family Practice 03/03/17 documented as of this encounter
--- OUTSIDE RECORDS SUMMARY | 2024-04-17 17:14 | XMS_ITS | Encounter Summary ---
Author Organization [facility] Address [address] [place] [address] Care Team Providers Care Vessel Operator Name Role Phone Gadiel Zavala MD Primary Care Provider [phone] Reason for Visit * Reason Comments Double Vision Encounter Details Date Type Department Care Team (Late st Contact Info) Description 09/08/2020 11:20 AM CDT Office Visit [facility] Children's Circle Edger Medical [place] A [address] [place] [address] [place] [address] Miguel Childs MD [address] [facility] [address] [facility] [place] [address] Binocular vision disorder with diplopia [...] C3-4 performed by Mylene Gutierrez MD at [facility] ??? [place] IMPLANT SPINAL NEUROSTIM/LEAD WAREHOUSE ASSOCIATE N/A 11/16/2017 SPINAL CORD DORSAL COLUMN STIMULATOR REMOVAL performed by Mylene Gutierrez MD at [facility] Medications: Current Outpatient Medications on File [...] tablet Take 50 mcg by mouth daily pre sales architect. ??? atorvastatin (LIPITOR) 20 mg tablet Take [...] 16 0 0 0 0 0 0 [id number] Interpretation Exotropia, intermittent Edited by: Miguel Childs [...] Childs MD Refraction Wearing Rx Sphere Cylinder [place] Add Horz Prism Right -0.75 +1.25 020 +2.50 Left -0.50 +1.25 165 +2.50 Age: 1y Wearing Rx #2 Sphere Cylinder [place] Add Horz Prism Right -0.50 +1.50 029 [...] are not well accepted. Miguel Childs MD Bathing Suit Maker [facility] [address] [place] [address], [address] [place] [address] Office: [phone] E-mail: [email or web address] This medical record reflects the history [...] BINDING ANTIBODY (12/01/2020 2:36 PM CDT) ACETYLCHOLINE TECHNICIAN TELECOMMUNICATION SYSTEMS BINDING AB <0.30 nmol/L [facility] Comment: Reference Ranges for Acetylcholine Receptor ??Binding Antibody: Negative: < or =0.30 nmol/L Equivocal: ??0.31-0.49 nmol/L Positive: > or =0.50 nmol/L FASTING:NO FASTING: NO Test Performed at: [facility], [address] [facility], [place] ??[address] Mari Wells MD,PhD,LANCE Blood 12/01/2020 2:36 PM CDT 12/01/2020 2:37 PM CDT Miguel Childs MD CHEMISTRY ORDERABLES [facility] [address] [place] [address] documented in this encounter Visit Diagnoses Diagnosis Binocular vision disorder with diplopia- Primary Diplopia Exotropia, intermittent, monocular Intermittent exotropia, monocular Cervical myelopathy Cervical spondylosis with myelopathy documented in this encounter Care Teams Vessel Operator Relationship Specialty Start Date End Date Gadiel Zavala MD [address] [place] [phone] PCP - General Family Practice 03/03/17 documented as of this encounter
--- OUTSIDE RECORDS SUMMARY | 2024-04-17 17:14 | XMS_ITS | Encounter Summary ---
Author Organization [facility] Address [address] [place] [address] Care Team Providers Care Crab Steamer Name Role Phone Gadiel Zavala MD Primary Care Provider [phone] Reason for Visit * Auth/Cert Specialty Diagnoses / Procedures Referred By Contac t Referred To Contact Radiology [address] [address] Referral ID Status Reason Start Date Expiration Date Visits Re quested Visits Authorized [id number] 1 1 Encounter Details Date Type Department Care Team (Latest Contact Info) Description 05/16/2017 1:05 PM QUALITY CONTROL TECH - 05/16/2017 11:59 PM [facility] Hospital Encounter [facility] Medical Medical [address] [address] Mylene Gutierrez MD [address] 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 atorvastatin (LIPITOR) 20 mg tablet Take [...] OR 3 VIEWS Routine 05/16/2017 1:10 PM QUALITY CONTROL TECH Cervical stenosis of spine documented in this encounter Results * XR CERVICAL SPINE 2 OR 3 VIEWS (05/16/2017 1:10 PM QUALITY CONTROL TECH) Anatomical Region Laterality Modality Spine Computed Radiogr aphy 05/16/2017 1:10 PM QUALITY CONTROL TECH Impressions 05/16/2017 5:39 PM QUALITY CONTROL TECH IMPRESSION: Postoperative change and fusion, cervical spine. DICTATION LOCATION: Location - [facility] Narrative 05/16/2017 5:39 PM QUALITY CONTROL TECH EXAMINATION: CERVICAL SPINE 2 VIEWS DATE: 05/16/2017 [...] fusion, cervical spine. DICTATION LOCATION: Location - [facility] Mylene Gutierrez MD DIAGNOSTIC IMAGING O RDERABLES documented in this encounter Visit Diagnoses Diagnosis Cervical stenosis of spine Spinal stenosis in cervical region documented in this encounter Care Teams Crab Steamer Relationship Specialty Start Date End Date Gadiel Zavala MD [address] [place] [address] PCP - General Family Practice 03/03/17 documented as of this encounter
--- OUTSIDE RECORDS SUMMARY | 2024-04-17 17:14 | XMS_ITS | Encounter Summary ---
Author Organization [facility] Address [address] [place] [address] Care Team Providers Care Chute Worker Name Role Phone Gadiel Zavala MD Primary Care Provider [phone] Encounter Details Date Type Department Care Team (Late st Contact Info) Description 08/25/2017 Abstract [facility] Physical Med and Rehab [facility] [address] [place] [address] Yasmin Vieyra, [address] [phone] Social History Tobacco Use Types Packs/Day Years [...] on filedocumented in this encounter Care Teams Chute Worker Relationship Specialty Start Date End Date Gadiel Zavala MD [address] [place] [phone] PCP - General Family Practice 03/03/17 documented as of this encounter
--- OUTSIDE RECORDS SUMMARY | 2024-04-17 17:14 | XMS_ITS | Encounter Summary ---
Author Organization [facility] Address [address] [place] [address] Care Team Providers Care Order To Delivery Supervisor Name Role Phone Gadiel Zavala MD Primary Care Provider [phone] Reason for Visit * Auth/Cert Specialty Diagnoses / Procedures Referred By Contac t Referred To Contact Radiology [address] [address] Referral ID Status Reason Start Date Expiration Date Visits Re quested Visits Authorized [id number] 1 1 Encounter Details Date Type Department Care Team (Latest Contact Info) Description 08/15/2017 12:50 PM CDT - 08/15/2017 11:59 PM CDT Hospital Encounter [facility] Medical Medical [address] [address] Mylene Gutierrez MD [address] [facility] [address] [facility] [place] [address] -x0 (Work) Discharge Disposition: Home [...] tablet Take 50 mcg by mouth daily train caller. atorvastatin (LIPITOR) 20 mg tablet Take 20 [...] instrumented fusion. DICTATION LOCATION: Location 1, [facility] Narrative 08/15/2017 3:51 PM CDT EXAMINATION: XR [...] instrumented fusion. DICTATION LOCATION: Location 1, [facility] Mylene Gutierrez MD DIAGNOSTIC IMAGING O RDERABLES documented in this encounter Visit Diagnoses Diagnosis Neck pain Cervicalgia documented in this encounter Care Teams Order To Delivery Supervisor Relationship Specialty Start Date End Date Gadiel Zavala MD [facility] [place] [address] PCP - General Family Practice 03/03/17 documented as of this encounter
--- OUTSIDE RECORDS SUMMARY | 2024-04-17 17:14 | XMS_ITS | Encounter Summary ---
Author Organization [facility] Address [address] [place] [address] Care Team Providers Care Research Biostatistician Name Role Phone Gadiel Zavala MD Primary Care Provider [phone] Reason for Visit * Auth/Cert Specialty Diagnoses / Procedures Referred By Contac t Referred To Contact General Surgery Diagnoses LOW BACK PAIN Procedures [place] IMPLANT SPINAL NEUROSTIM/PROFESSOR OF MATHEMATICS SPINAL CORD DORSAL COLUMN STIMULATOR INSERTION [facility] [address] [place] [address] Referral ID Status Reason Start Date Expiration Date Visits Re quested Visits Authorized [id number] 1 1 Encounter Details Date Type Department Care Team (Late st Contact Info) Description 11/16/2017 11:53 AM CDT Anesthesia Event [facility] Operating Room [address] [place] [address] Yulisa Hoang MD [address] [place] [address] Izabela Edmond CRNA [address] [place] [address] Anesthesia Record Procedure Summary Procedure [...] pressure dressing, catheter intact, direct pressure 11/16/17 8932 by Michelle Menchaca RN 11/16/17 1538 by [...] discussed with Patient. Plan discussed with Nurse Tire Fabric Inspector. Post-op Pain Control Plan to use IV [...] mg documented in this encounter Care Teams Research Biostatistician Relationship Specialty Start Date End Date Gadiel Zavala MD [address] [place] [phone] PCP - General Family Practice 03/03/17 documented as of this encounter
--- OUTSIDE RECORDS SUMMARY | 2024-04-17 17:14 | XMS_ITS | Encounter Summary ---
Author Organization [facility] Address [address] [place] [address] Care Team Providers Care Hide Splitter Name Role Phone Gadiel Zavala MD Primary Care Provider [phone] Encounter Details Date Type Department Care Team (Late st Contact Info) Description 11/27/2020 Abstract [facility] Children's Fiberglass Bonding Machine Tender Medical [address] [place] [address] Miguel Childs MD [address] [place] [address] Social History Tobacco Use Types [...] on filedocumented in this encounter Care Teams Hide Splitter Relationship Specialty Start Date End Date Gadiel Zavala MD [address] [place] [address] PCP - General Family Practice 03/03/17 documented as of this encounter
--- OUTSIDE RECORDS SUMMARY | 2024-04-17 17:14 | XMS_ITS | Encounter Summary ---
Author Organization [facility] Address [address] [place] [address] Care Team Providers Care Bill Recapitulation Clerk Name Role Phone Gadiel Zavala MD Primary Care Provider Encounter Details Date Type Department Care Team (Late st Contact Info) Description 01/03/2018 Abstract [facility] Physical Med and Rehab - [facility] [address] [place] [address] Yasmin Vieyra DO [address] [phone] Social History Tobacco Use Types Packs/Day Years [...] on filedocumented in this encounter Care Teams Bill Recapitulation Clerk Relationship Specialty Start Date End Date Gadiel Zavala MD [address] [place] [phone] PCP - General Family Practice 03/03/17 documented as of this encounter
--- OUTSIDE RECORDS SUMMARY | 2024-04-17 17:14 | XMS_ITS | Encounter Summary ---
Author Organization [facility] Address [address] [place] [address] Care Team Providers Care Size Painter Name Role Phone Gadiel Zavala MD Primary Care Provider [phone] Encounter Details Date Type Department Care Team (Latest Contact Info) Description 11/07/2017 1:30 PM CDT - 11/07/2017 11:59 PM CDT Hospital Encounter [facility] [address] [place] [address] Mylene Gutierrez MD [address] [facility] [address] [place] [address] -x0 (Work) Discharge Disposition: Home or Self [...] waveform capnography 11/16/17 1207 by Izabela Edmond, CIVIL PROCESS SERVER 11/16/17 1259 by Izabela Edmond, CIVIL PROCESS SERVER Adult Incision 11/16/17; 1256; surgical incision; Left; [...] tablet Take 50 mcg by mouth daily strategic debriefing specialist. atorvastatin (LIPITOR) 20 mg tablet Take 20 [...] Bond Age: 67 y.o. Sex: female CSN: [id number] Procedure: REMOVAL OF SPINAL CORD STIMULATOR IN [...] TUBAL LIGATION ??? KYPHOPLASTY, LUMBAR 2016 ??? [place] CERV SPINE FUSN,ANTER,BELOW C2 N/A 02/16/2017 CERVICAL DISCECTOMY FUSION 1 LEVEL ANTERIOR, C3-4 performed by Mylene Gutierrez MD at [facility] Social History Substance Use Topics [...] was obtained directly from the patient or physician relations representative or caregiver or another available healthcare resource and updated in [employer] EMR. History Smoking Status ??? Former Smoker ??? Packs/day: 0.25 ??? Years: 5.00 ??? Types: Cigarettes ??? Quit date: 1988 Smokeless Tobacco ??? Never Used Comment: 4 per day Patient screened for tobacco use and identified as a Non-User of tobacco. REPORT AND NECESSARY FOLLOW-UP History and physical performed in [facility]; tests (ECG, blood work) reviewed. Abnormal Results Found: no Further Testing or Evaluation Required: no Final [facility] Review: May proceed with procedure/surgery: no, [...] showed-sinus bradycardia with long QT interval. Final [facility] Review: May proceed with procedure/surgery: YES, but still requesting EKG from Dr. Carson Elias. Yuridia Young EMAIL ADMINISTRATOR Addendum 11/08/17 NO E[address] found in Dr. Elias's office. Final [facility] Review: May proceed with procedure/surgery: YES Yuridia Young EMAIL ADMINISTRATOR * Simran-OP - Luz Elena Llanos RN - 11/07/2017 2:40 PM CDT Images from the original note were not included. [facility] Pre-Procedure Instructions [facility] Name: Kaitlin Bond Age: 67 y.o. Please report to the: [] Surgery Center [] [facility] (2nd Floor) [] Other: Date of Procedure: [...] ?? YOU WILL NEED A RESPONSIBLE ADULT LAP WINDER UPON DISCHARGE. YOUR SURGERY MAY BE CANCELLED IF YOU DONOT HAVE A RESPONSIBLE ADULT LAP WINDER TO TAKE YOU HOME. ?? BRING PRESCRIBED INHALERS to the hospital with you but DO NOT BRING ANY OTHER MEDICATIONS [facility] (unless otherwise instructed). ?? WEAR comfortable, loose fitting clothes to the hospital that will fit over dressings after your surgery. ?? WEAR GLASSES instead of contact lenses to the hospital; bring a case if possible for glasses, dentures, and hearing aids as you will be asked to remove these items before your surgery. ?? BRING your insurance cards and emergency detail driver's license or photo ID. DO NOT [...] - 145 mmol/L 11/07/2017 8:02 PM [facility] POTASSIUM 4.3 3.5 - 5.0 mmol/L 11/07/2017 8:02 PM [facility] CHLORIDE 92(L) 98 - 107 mmol/L 11/07/2017 8:02 PM [facility] CO2 27 22 - 29 mmol/L 11/07/2017 8:02 PM [facility] CALCIUM 9.8 8.6 - 10.2 mg/dL 11/07/2017 8:02 PM [facility] BUN 12 8 - 23 mg/dL 11/07/2017 8:02 PM [facility] CREATININE 0.60 0.51 - 0.95 mg/dL 11/07/2017 8:02 PM [facility] GLUCOSE 84 74 - 99 mg/dL 11/07/2017 8:02 PM [facility] GFR >60 >=60 mL/min/1.7 3 sq meter 11/07/2017 8:02 PM [facility] Comment: eGFR has not been validated [...] 3 sq meter 11/07/2017 8:02 PM CDT [facility] ANION GAP 14 8 - 16 mmol/L 11/07/2017 8:02 PM CDT [facility] Blood Venipuncture / Unknown 11/07/2017 2:27 PM CDT 11/07/2017 4:45 PM CDT Layla Casillas MD CHEMISTRY ORDERABLES Performing Organization Address City/[facility] Co de Phone Number [facility] CLIA# [id number] 5 SDebra [facility] [place] [address] * EDUCATION ANESTHESIA (ADULT) - LU (11/07/2017 2:08 PM CDT) Education Name ANESTHESIA (ADULT) LU EDUCATION INTERFACE Education URL [email or web address] LU EDUCATION INTERFACE EDUCATION ACCESS CODE [id number] LU EDUCATION INTERFACE EDUCATION ISSUE DATE Nov [...] EXTERNAL EDUCATION O RDERABLES Performing Organization Address City/[facility]/ZIP Co de Phone Number LU EDUCATION INTERFACE documented in this encounter Visit Diagnoses Not on filedocumented in this encounter Care Teams Size Painter Relationship Specialty Start Date End Date Gadiel Zavala MD [address] [place] [address] PCP - General Family Practice 03/03/17 documented as of this encounter
--- OUTSIDE RECORDS SUMMARY | 2024-04-17 17:14 | XMS_ITS | Encounter Summary ---
Author Organization [facility] Address [address] [facility] Attn: Epic Prelude ADT [place] [address] Care Team Providers Care Manager Marketing Communication Name Role Phone Gadiel Zavala MD Primary Care Provider [phone] Encounter Details Date Type Department Care Team (Latest Contact Info) Description 09/08/2020 Travel Social History Tobacco Use Types Packs/Day [...] filedocumented in this encounter Care Teams Manager Marketing Communication Relationship Specialty Start Date End Date Gadiel Zavala MD [address] [place] [address] PCP - General Family Practice 03/03/17 documented as of this encounter
--- OUTSIDE RECORDS SUMMARY | 2024-04-17 17:14 | XMS_ITS | Encounter Summary ---
Author Organization [facility] Address [address] [place] [address] Care Team Providers Care Gas Technician Name Role Phone Gadiel Zavala MD Primary Care Provider [phone] Reason for Visit * Reason Comments Double Vision Encounter Details Date Type Department Care Team (Late st Contact Info) Description 12/24/2020 2:00 PM CDT Office Visit [facility] Children's Community Support Worker Medical Eva A [address] [place] [address] [place] [address] Miguel Childs MD [address] [facility] [address] [facility] [place] [address] Exotropia, intermittent, monocular (Primary Dx); [...] TUBAL LIGATION ??? KYPHOPLASTY, LUMBAR 2016 ??? [place] CERV SPINE FUSN,ANTER,BELOW C2 N/A 02/16/2017 CERVICAL DISCECTOMY FUSION 1 LEVEL ANTERIOR, C3-4 performed by Mylene Gutierrez MD at [facility] ??? [place] IMPLANT SPINAL NEUROSTIM/INDUSTRIAL PLANT CUSTODIAN N/A 11/16/2017 SPINAL CORD DORSAL COLUMN STIMULATOR REMOVAL performed by Mylene Gutierrez MD at [facility] OR MAIN Medications: Current Outpatient Medications on File Prior to Visit Medication Sig Dispense Refill ??? meloxicam (MOBIC) 15 mg tablet Take 15 mg by mouth daily. ??? naloxone (NARCAN) 4 mg/spray [place], Non-Aerosol EMERGENCY USE ONLY: Administer 1 spray [...] 50 mcg by mouth daily director of psychiatry. ??? atorvastatin (LIPITOR) 20 mg tablet Take [...] Childs MD Refraction Wearing Rx Sphere Cylinder [place] Add Horz Prism Right -0.75 +1.25 025 +2.50 3 BI Left -0.50 +1.00 165 +2.50 2 MEEK Age: 4m Edited by: Carolina Flores Testing/Data: I reviewed the brain MRI from [facility]. Non-specific T2 white matter changes. ACETYLCHOLINE OSTEOPATHIC PHYSICIAN BINDING AB ACETYLCHOLINE RECEPTOR BINDING ANTIBODY Collected: 12/01/20 1436 Result status: Final Resulting lab: [facility] Reference range: nmol/L Value: <0.30 Comment: ?? Reference Ranges for Acetylcholine Receptor ?? Binding Antibody: ?Negative: < or =0.30 nmol/L Equivocal: ??0.31-0.49 nmol/L ??Positive: > or =0.50 nmol/L FASTING:NO FASTING: NO Test Performed at: [facility], [address] [facility], [place] ??[address] Mari Wells MD,PhD,LANCE ASSESSMENT and PLAN: ICD-10-CM [...] eye muscle surgery to repair strabismus. CPT 43373 OS Miguel Childs MD Refractory Mixer [facility] [address] [place] [address], [address] [place] [address] Office: [phone] E-mail: [email or web address] This medical record reflects [...] recurrent documented in this encounter Care Teams Gas Technician Relationship Specialty Start Date End Date Gadiel Zavala MD [address] [place] [address] PCP - General Family Practice 03/03/17 documented as of this encounter
--- OUTSIDE RECORDS SUMMARY | 2024-04-17 17:14 | XMS_ITS | Encounter Summary ---
Author Organization [facility] Address [address] Ortizn: Epic Prelude ADT [place] [address] Care Team Providers Care Jackaroo Name Role Phone Gadiel Zavala MD Primary Care Provider [phone] Encounter Details Date Type Department Care Team (Late st Contact Info) Description 03/17/2017 Orders Only Initial Department [address] MARTINEZ: [place] [address] Provider, Historical Social History Tobacco Use Types [...] BASIC METABOLIC PANEL Routine 03/17/2017 5:07 AM STEEL CRANE OPERATOR documented in this encounter Results * (ABNORMAL) BASIC METABOLIC PANEL (03/17/2017 5:07 AM STEEL CRANE OPERATOR) GLUCOSE 108(H) 65 - 99 mg/dL [facility] Comment: ? Fasting reference interval For someone without known diabetes, a glucose value between 100 and 125 mg/dL is consistent with prediabetes and should be confirmed with a follow-up test. BUN 13 7 - 25 mg/dL [facility] CREATININE 0.60 0.50 - 0.99 mg/dL [employer] [facility] Comment: For patients >49 years of age, the reference limit for Creatinine is approximately 13% higher for people identified as -Tristanian. GFR 94 > OR = 60 mL/min/1 .73m2 [facility] . DEBRA GFR, 109 > OR = 60 mL/min/1 .73m2 [facility] . DEBRA BUN/CREAT RATIO NOT APPLICABLE 6 - 22 (calc) [facility] DEBRA SODIUM 132(L) 135 - 146 mmol/L [facility] . DEBRA POTASSIUM 4.5 3.5 - 5.3 mmol/L [facility] . DEBRA CHLORIDE 96(L) 98 - 110 mmol/L [facility] . DEBRA CO2 28 20 - 31 mmol/L [facility] . DEBRA CALCIUM 10.0 8.6 - 10.4 mg/dL [facility] Comment: Test Performed at: [facility] ??[address] Sagar Cook D.O., MPH 03/17/2017 5:07 AM STEEL CRANE OPERATOR Historical Provider CHEMISTRY ORDERABLES [facility] [address] [place] [address] documented in this encounter Visit Diagnoses Not on filedocumented in this encounter Care Teams Jackaroo Relationship Specialty Start Date End Date Gadiel Zavala MD [address] [place] [address] PCP - General Family Practice 03/03/17 documented as of this encounter
--- OUTSIDE RECORDS SUMMARY | 2024-04-17 17:14 | XMS_ITS | Encounter Summary ---
Author Organization [facility] Address [address] [place] [address] Care Team Providers Care Parking Station Attendant Name Role Phone Gadiel Zavala MD Primary Care Provider [phone] Reason for Visit * Auth/Cert Specialty Diagnoses / Procedures Referred By Contac t Referred To Contact General Surgery Diagnoses LOW BACK PAIN Procedures CA IMPLANT SPINAL NEUROSTIM/TARGETEER SPINAL CORD DORSAL COLUMN STIMULATOR INSERTION [facility] [address] [place] [address] Referral ID Status Reason Start Date Expiration Date Visits Re quested Visits Authorized [id number] 1 1 Encounter Details Date Type Department Care Team (Latest Contact Info) Description 11/16/2017 8:37 AM CDT - 11/16/2017 3:44 PM CDT Hospital Encounter [facility] [address] [place] [address] Mylene Gutierrez MD [address] [address] -x0 (Work) Discharge Disposition: Home [...] a follow up appt, call the office ([phone]) in the next 1-2 business days to [...] Emergency Room at [facility] ([phone]) or the nearest Emergency Room. In an [...] tablet Take 50 mcg by mouth daily yarn dry room worker. atorvastatin (LIPITOR) 20 mg tablet Take 20 [...] PM CDT Brief Postoperative Note Kaitlin Bond [id number] Pre-operative Diagnosis: chronic pain Post-operative Diagnosis: Same [...] Shay PA - 11/16/2017 11:15 AM CDT [place], [place] [address] HISTORY AND PHYSICAL PATIENT NAME: Kaitlin Bond CSN: [id number] ADMITTING PHYSICIAN: Mylene Gutierrez MD PRIMARY CARE [...] TUBAL LIGATION ??? KYPHOPLASTY, LUMBAR 2016 ??? CA CERV SPINE FUSN,ANTER,BELOW C2 N/A 02/16/2017 CERVICAL DISCECTOMY FUSION 1 LEVEL ANTERIOR, C3-4 performed by Mylene Gutierrez MD at [facility] Allergies Allergen Reactions ??? Adhesive Rash [...] tablet Take 50 mcg by mouth daily yarn dry room worker. Yes Provider, Historical atorvastatin (LIPITOR) 20 mg [...] and consents to surgery. Letty Shay PA-C [phone] documented in this encounter OR Notes * Operative Report - Mylene Gutierrez MD - 11/16/2017 11:10 PM CDT [place], [place] [address] Operative Report CSN: [id number] DATE OF SERVICE: 11/16/2017 SURGEON Mylene Gutierrez MD PREOPERATIVE DIAGNOSIS Nonfunctional spinal cord stimulator with chronic pain. POSTOPERATIVE DIAGNOSIS Nonfunctional spinal cord stimulator with chronic pain. OPERATION NAME Removal of spinal cord stimulator percutaneous electrodes, right and left; and removal of spinal cord stimulator generator. ANESTHESIA metal finisher ZEHRA Al, who participated in both transportation [...] and needle counts were correct. TQ:MEDQ DID: [id number] Dictated by: Mylene Gutierrez MD * Simran-OP [...] pain/comfort utilizing verbal/nonverbal pain scales; assess culturalor tenriism indicators attached to pain; administer pain medications [...] pain/comfort utilizing verbal/nonverbal pain scales; assess culturalor tenriism indicators attached to pain; administer pain medications [...] BACK PAIN Case Notes [employer], AUTH # [id number], CPT 08516, 26230 documented in this encounter Results * TELEMETRY REPORT (11/16/2017 9:53 PM CDT) Provider Scanning ECG ORDERABLES * ANAEROBIC/AEROBIC CULTURE W GRAM STAIN (11/16/2017 12:31 PM CDT) CULTURE No aerobic or anaerobic growth 11/21/2017 9:40 AM CDT [facility] GRAM STAIN No organisms observed 11/21/2017 9:40 AM CDT [facility] GRAM STAIN 1+ (Rare or Occasional) WBC 11/21/2017 9:40 AM CDT [facility] Tissue (Back, lower) Collection / Unknown 11/16/2017 12:31 PM CDT 11/16/2017 1:33 PM CDT Mylene Gutierrez MD MICROBIOLOGY - GENER AL ORDERABLES [facility]# [id number] [address] [place] [address] documented in this encounter Visit Diagnoses Not [...] syringe) documented in this encounter Care Teams Parking Station Attendant Relationship Specialty Start Date End Date Gadiel Zavala MD [address] [place] [phone] PCP - General Family Practice 03/03/17 documented as of this encounter
--- OUTSIDE RECORDS SUMMARY | 2024-04-17 17:14 | XMS_ITS | Encounter Summary ---
Author Organization [facility] Address [address] [place] [address] Care Team Providers Care Network Strategist Name Role Phone Gadiel Zavala MD Primary Care Provider [phone] Encounter Details Date Type Department Care Team (Latest Contact Info) Description 01/19/2018 10:30 AM CDT - 01/19/2018 11:59 PM T Hospital Encounter [facility] Spine [facility] A [address] [place] [address] Mylene Gutierrez MD [facility]. [facility] [address] [facility] [place] [address] -x0 (Work) Discharge Disposition: Home or Self [...] tablet Take 50 mcg by mouth daily hydramatic specialist. atorvastatin (LIPITOR) 20 mg tablet Take [...] of screws at C3. Dictation location 1 [facility] Narrative 01/19/2018 11:43 AM CDT CERVICAL SPINE [...] of screws at C3. Dictation location 1 [facility] Mylene Gutierrez MD DIAGNOSTIC IMAGING O RDERABLES documented in this encounter Visit Diagnoses Diagnosis Cervical stenosis of spinal canal Spinal stenosis in cervical region S/P spinal fusion Arthrodesis status documented in this encounter Care Teams Network Strategist Relationship Specialty Start Date End Date Gadiel Zavala MD [address] [place] [phone] PCP - General Family Practice 03/03/17 documented as of this encounter
--- OUTSIDE RECORDS SUMMARY | 2024-04-17 17:14 | XMS_ITS | Encounter Summary ---
Author Organization [facility] Address [address] [place] [address] Care Team Providers Care Linen Tech Name Role Phone Gadiel Zavala MD Primary Care Provider [phone] Reason for Visit * Auth/Cert Specialty Diagnoses / Procedures Referred By Contac t Referred To Contact General Surgery Diagnoses LOW BACK PAIN Procedures DC IMPLANT SPINAL NEUROSTIM/REGULATORY AFFAIRS INTERN SPINAL CORD DORSAL COLUMN STIMULATOR INSERTION [facility] [address] [place] [address] Referral ID Status Reason Start Date Expiration Date Visits Re quested Visits Authorized [id number] 1 1 Encounter Details Date Type Department Care Team (Late st Contact Info) Description 11/16/2017 10:45 AM CDT - 11/16/2017 1:15 PM CDT Surgery [facility] Operating Room [address] [place] [address] Mylene Gutierrez MD [address] [facility] [address] [address] -x0 (Work) SPINAL CORD DORSAL [...] Surgery 1 Case Notes [employer], AUTH # [id number], CPT 08125, 509[address] documented in this encounter Social History Tobacco [...] a follow up appt, call the office ([phone]) in the next 1-2 business days to [...] or come to the Emergency Room at [facility] ([phone]) or the nearest Emergency Room. In an [...] tablet Take 50 mcg by mouth daily registered nurse float pool. atorvastatin (LIPITOR) 20 mg tablet Take 20 [...] PM CDT Brief Postoperative Note Kaitlin Bond [id number] Pre-operative Diagnosis: chronic pain Post-operative Diagnosis: Same [...] Shay PA - 11/16/2017 11:15 AM CDT [place], [place] [address] HISTORY AND PHYSICAL PATIENT NAME: Kaitlin Bond CSN: [id number] ADMITTING PHYSICIAN: Mylene Gutierrez MD PRIMARY CARE [...] performed by Mylene Gutierrez MD at [facility] Allergies Allergen Reactions ??? Adhesive Rash ??? [...] tablet Take 50 mcg by mouth daily registered nurse float pool. Yes Provider, Historical atorvastatin (LIPITOR) 20 mg [...] by mouth 2 times daily. 03/14/17 Yasmin Vieyar DO sennosides-docusate sodium (SENNA-S) 8.6-50 mg tablet [...] and consents to surgery. Letty Shay PA-C [phone] documented in this encounter OR Notes * Operative Report - Mylene Gutierrez MD - 11/16/2017 11:10 PM CDT [place], [place] [address] Operative Report CSN: [id number] DATE OF SERVICE: 11/16/2017 SURGEON Mylene Gutierrez MD PREOPERATIVE DIAGNOSIS Nonfunctional spinal cord stimulator with chronic pain. POSTOPERATIVE DIAGNOSIS Nonfunctional spinal cord stimulator with chronic pain. OPERATION NAME Removal of spinal cord stimulator percutaneous electrodes, right and left; and removal of spinal cord stimulator generator. 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 TQ:MEDQ DID: [id number] Dictated by: Mylene Gutierrez MD * Simran-OP [...] pain/comfort utilizing verbal/nonverbal pain scales; assess culturalor adventism indicators attached to pain; administer pain medications [...] pain/comfort utilizing verbal/nonverbal pain scales; assess culturalor adventism indicators attached to pain; administer pain medications [...] BACK PAIN Case Notes [employer], AUTH # [id number], CPT 86704, 38782 documented in this encounter Results * TELEMETRY REPORT (11/16/2017 9:53 PM CDT) Provider Scanning ECG ORDERABLES * ANAEROBIC/AEROBIC CULTURE W GRAM STAIN (11/16/2017 12:31 PM CDT) CULTURE No aerobic or anaerobic growth 11/21/2017 9:40 AM CDT [facility] GRAM STAIN No organisms observed 11/21/2017 9:40 AM CDT [facility] GRAM STAIN 1+ (Rare or Occasional) WBC 11/21/2017 9:40 AM CDT [facility] Tissue (Back, lower) Collection / Unknown 11/16/2017 12:31 PM CDT 11/16/2017 1:33 PM CDT Mylene Gutierrez MD MICROBIOLOGY - GENER AL ORDERABLES [facility]# [id number] [address] [place] [address] documented in this encounter Visit Diagnoses Not [...] 0959 (New Bag - Prov ider: Michelle Menchaac RN)1153 (Continue from Pre-Op - Provider: Izabela [...] syringe) documented in this encounter Care Teams Linen Tech Relationship Specialty Start Date End Date Gadiel Zavala MD [address] [place] [phone] PCP - General Family Practice 03/03/17 documented as of this encounter
--- OUTSIDE RECORDS SUMMARY | 2024-04-17 17:14 | XMS_ITS | Encounter Summary ---
Author Organization [facility] Address [address] Attn: Epic Prelude ADT [place] [address] Care Team Providers Care Body And Frame Man Name Role Phone Gadiel Zavala MD Primary Care Provider [phone] Encounter Details Date Type Department Care Team [...] on filedocumented in this encounter Care Teams Body And Frame Man Relationship Specialty Start Date End Date Gadiel Zavala MD [address] [place] [address] PCP - General Family Practice 03/03/17 documented as of this encounter
--- OUTSIDE RECORDS SUMMARY | 2024-04-17 17:14 | XMS_ITS | Encounter Summary ---
Author Organization [facility] Address [address] [place] [address] Care Team Providers Care Clinical Trial Educator Name Role Phone Gadiel Zavala MD Primary Care Provider [phone] Reason for Visit * Reason Onset Date Comments Results 12/15/2020 Encounter Details Date Type Department Care Team (Late st Contact Info) Description 12/15/2020 Telephone [facility] Children's Physical Testing Supervisor Medical [place] A [address] [place] [address] [place] [address] Miguel Childs MD [address] [facility] [place] [address] Results Social History Tobacco Use [...] on filedocumented in this encounter Care Teams Clinical Trial Educator Relationship Specialty Start Date End Date Gadiel Zavala MD [address] [place] [address] PCP - General Family Practice 03/03/17 documented as of this encounter
--- OUTSIDE RECORDS SUMMARY | 2024-04-17 17:15 | XMS_ITS | Encounter Summary ---
Author Organization [facility] Address [address] [place] [address] Care Team Providers Care Cheese Packer Name Role Phone Gadiel Zavala MD Primary Care Provider [phone] Reason for Visit * Auth/Cert Specialty Diagnoses / Procedures Referred By Contac t Referred To Contact General Surgery Diagnoses weakness [facility] Care Int Unit [address] [address] Referral ID Status Reason Start Date Expiration Date Visits Re quested Visits Authorized [id number] 1 1 Encounter Details Date Type Department Care Team (Latest Contact Info) Description 02/28/2017 11:50 AM CDT - 03/03/2017 5:58 PM CDT Hospital Encounter [facility] Care Interventional Unit [address] [address] Mylene Gutierrez MD [address] [facility] [address] [address] -x0 (Work) Cervical stenosis of [...] DISCHARGE MEDICATIONS AT TRANSITION OF CARE Kaitlin Bodn 66 y.o. female 1950 CSN: [id number] Date of Admission: 02/28/2017 Document Creation Date: [...] SYNTHROID Take 50 mcg by mouth daily private pilot. Refills: 0 lisinopril 40 mg tablet Commonly [...] certify their accuracy. Signed: Dinh Mahmood MD [facility] Office Number: [phone] Process Developer Pager Number: [phone] 03/02/2017, 6:57 AM documented in this encounter Discharge Instructions * Discharge Instructions* Jayne Lovell - 03/03/2017 5:[address] Gutierrez's office ([phone]) in the next 1-2 business days to [...] tablet Take 50 mcg by mouth daily private pilot. atorvastatin (LIPITOR) 20 mg tablet Take 20 [...] by mouth nightly as needed for Insomnia. oxyCODONE-acetaminoph en (PERCOCET) 5-325 mg tablet Take [...] 02/17/2017 03/14/2017 documented as of this encounter Progress Notes * Jayne Lovell - 03/03/2017 5:12 PM CDT Telephone report given to LOGAN Cruz at [facility] ([phone]). * Kaitlin Cartwright RN - 03/03/2017 3:50 PM CDT 03/03/17 1500 Discharge Planning Plan Discharge To Rehabilitation unit Information Given Concerning Criteria for rehabilitation Final Discharge Arrangements Anticipated Discharge Disposition Rehab Care Facility Name [facility] Contact Name [facility] Phone Number [phone] Transportation Provider [facility] Transportation Contact Name [facility] Provider Phone [phone] Date Of Pick-Up 03/03/17 Time Of Pick-Up 1800 * Elaine Dubon PA - 03/03/2017 3:45 PM CDT NSGY note Rehab approved by insurance. Orders reconciled. Okay to dc this afternoon. * Dinh Mahmood MD - 03/03/2017 3:28 PM CDT [facility] Adult Progress Note Admit Date: 02/28/2017 Date [...] Will pre-medicate ?? Essential hypertension - cont seating captain lisinopril - uncontrolled - will add [...] D/c hopefully today Letty Shay PA-C Pgr: [phone] Associated attestation - Mylene Gutierrez MD - [...] States has numbness in lower extremities. Hand cutter and paster press clippings equal. No c/o numbness in upper extremities. * Jocy Shay PA - 03/02/2017 4:34 PM CDT just notified by rehab that it was denied for acute rehab. Called to schedule a peer to peer ref #[id number] and left a message. Will attempt to [...] Paperwork in chart Jocy Shay PA-C Pgr: [phone] Associated attestation - Mylene Gutierrez MD - [...] Mahmood MD - 03/01/2017 2:30 PM CDT [facility] Adult Progress Note Admit Date: 02/28/2017 Date [...] Will pre-medicate ?? Essential hypertension - cont seating captain lisinopril ?? Acquired Hypothyroidism ?? Depression [...] from our standpoint. Elaine Dubon PA-C Pgr: [phone] Associated attestation - Mylene Gutierrez MD - [...] the original note were not included. [facility] ACCESS INITIAL EVALUATION NAME: Kaitlin Bond DATE: [...] Access. Nina Jones RN Rapid Access Department [facility] [phone] documented in this encounter H&P Notes * Jocy Shay PA - 02/28/2017 12:33 PM CDT [place], [place] [address] Neurosurgery Consult Patient Name: Kaitlin Bond : [id number] Date of Service: 02/28/2017 Date of Admission: [...] TUBAL LIGATION ??? KYPHOPLASTY, LUMBAR 2017 ??? [place] CERV SPINE FUSN,ANTER,BELOW C2 N/A 02/16/2017 CERVICAL DISCECTOMY FUSION 1 LEVEL ANTERIOR, C3-4 performed by Mylene Gutierrez MD at [facility] No current facility-administered medications on file [...] tablet Take 50 mcg by mouth daily private pilot. ??? atorvastatin (LIPITOR) 20 mg tablet Take [...] denies any anemia, bleeding or easy bruisability CERTIFIED SURGICAL TECH/FIRST ASSISTANT: Positive for coordination problems and weakness, negative [...] medical management MRI cervical spine Jocy Shay, [facility] Pgr: [phone] Attending: Dr. Gutierrez Associated attestation - Mylene [...] from the original note were not included. [facility] Internal Medicine Consult Dinh Mahmood MD 02/28/2017 3:36 PM Patient Name: Kaitlin Bond Admit Date: 02/28/2017 PCP: [facility], External Provider Consult requested by Mylene Juan MD Patient Name: Kaitlin Bond PCP: [facility], External Provider Date of admission: 02/28/2017 [...] material. Will pre-medicate Essential hypertension - cont seating captain lisinopril Acquired Hypothyroidism Depression - cont [...] TUBAL LIGATION ??? KYPHOPLASTY, LUMBAR 2017 ??? [place] CERV SPINE FUSN,ANTER,BELOW C2 N/A 02/16/2017 CERVICAL DISCECTOMY FUSION 1 LEVEL ANTERIOR, C3-4 performed by Mylene Gutierrez MD at [facility] OR [facility] Outpt Meds: Prior to Admission Medications [...] Sig: Take 50 mcg by mouth daily private pilot. lisinopril (PRINIVIL) 40 mg tablet Past Week [...] Notes * Care Plan - Rubina Rincon, Polymer Scientist - 03/03/2017 4:06 PM CDT Problem: Physical [...] care for updates on goals. Zone #: 86472 * Care Plan - Reyna Larsen, Occupational [...] care for updates on goals. Zone #: [id number] Problem: Self-Care Deficit Goal: Self care goal: [...] met with patient and informed her that [facility] and [id number]-[id number] review was initiated by . CM provided patient with list of SNFs. Patient upset and reluctant to be discharged to SNF. Stated that she will look at the the list . Corrie Molina RN, BSN Nurse Machine Adjuster Helper [phone] * Care Plan - Kathy Serra, Occupational [...] care for updates on goals. Zone #: 70800 * Care Plan - Mylene Che, RN [...] Emergency Contact: rishi bond PCP verified as [facility], External Provider. Patient's insurance verified as Payor: AETNA / Plan: AETNA PFFS MEDICARE / Product Type: Medicare Managed Care / The patient's preferred pharmacy is [facility] in [place] letter verbally reviewed with patient Discussed discharge goals and possible discharge needs including Rehab Vs SNF Patient choice for rehab is [facility]. Referral made. SNF lists given. Care Management contact information provided. Care Management will continue to follow and assist asneeded. 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 Zone #: 22690 * Therapy Evaluation - Richa Murray, Student [...] HTN, HLD, neuropathy, lumbar fusion 2013, cervial [id number], kyphoplasty at lumbar. S: Patient reports 0/10 pain at rest and 8/10. at L.ribs during movement. 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 Zone #: [id number] Associated attestation - Mackenzie Knott, Physical Therapist [...] and NUCLEAR MEDICINE MEDICATION and FLUSH PROTOCOL [facility] ORDERS ARE ENTERED ???PER PROTOCOL?? Enter the protocol in the patient???s electronic health record using Reading Roomrase: .imagingmedflushprotocol Communication Orders: o For ordered imaging [...] procedure. ??? If at any time the Filtration Plant Operator has a question about which option to [...] solution with the pateint???s nurse to CT [place] Administer 45mL of diluted Iohexol oral solution, [...] than 55kg and confirm dose with radiologist. [place] to 13 years old Administer 2.2mL/kg (to [...] - 145 mmol/L 03/03/2017 5:02 AM CDT [facility] POTASSIUM 4.3 3.5 - 5.0 mmol/L 03/03/2017 5:02 AM CDT [facility]ORY [facility] - [facility] CHLORIDE 96(L) 98 - 107 mmol/L 03/03/2017 5:02 AM T [facility] CO2 31(H) 22 - 29 mmol/L 03/03/2017 5:02 AM T [facility] - [facility] CALCIUM 8.9 8.6 - 10.2 mg/dL 03/03/2017 5:02 AM T [facility] - [facility] BUN 12 8 - 23 mg/dL 03/03/2017 5:02 AM T [facility] SERVICES [facility] CREATININE 0.67 0.51 - 0.95 mg/dL 03/03/2017 5:02 AM CDT [facility] LABORATORY SERVICES - . [facility] GLUCOSE 89 74 - 99 mg/dL 03/03/2017 5:02 AM CDT [facility]OR[facility]ORY SERVICES - . [facility] GFR >60 >=60 mL/min/1.7 3 sq meter 03/03/2017 5:02 AM CDT [facility] Comment: eGFR has not been validated for [...] 3 sq meter 03/03/2017 5:02 AM CDT [facility] LABORATORY [facility] ANION GAP 10 8 - 16 mmol/L 03/03/2017 5:02 AM CDT [facility] LABORATORY [facility] Blood Venipuncture / Unknown 03/03/2017 4:03 AM CDT 03/03/2017 4:14 AM CDT [facility]# [id number] [address] [facility] [place] [place] [address] * MRI CERVICAL W WO CONTRAST (02/28/2017 6:14 PM CDT) Anatomical Region Laterality Modality Spine Magnetic Resonan ce 02/28/2017 6:39 PM CDT Addenda Addendum by Boom Paulino MD on 03/13/2017 7:03 AM TELEPHONE AD TAKER HISTORY: ?? Neck pain, followup fusion. Impressions 03/01/2017 1:32 PM CDT IMPRESSION: Bilateral C6-7 neural foraminal stenosis. Status post prior C4-5-6 fusion which appears solid. Recent C3-4 fusion. C3-4 stenosis felt to relate to anterolisthesis. Prevertebral increased water content compatible with recent postoperative state. Dictation location 1 [facility] Narrative 03/01/2017 1:32 PM CDT MR IMAGING [...] with recent postoperative state. Dictation location 1 [facility] Jocy SHAHID MR ORDERABLES * (ABNORMAL) BASIC METABOLIC PANEL (02/28/2017 12:35 PM CDT) SODIUM 132(L) 136 - 145 mmol/L 02/28/2017 3:40 PM CDT [facility] LAB[facility]ORY SERVICES - . [facility] POTASSIUM 3.8 3.5 - 5.0 mmol/L 02/28/2017 3:40 PM CDT [facility] - . [facility] CHLORIDE 91(L) 98 - 107 mmol/L 02/28/2017 3:40 PM CDT [facility] - . [facility] CO2 30(H) 22 - 29 mmol/L 02/28/2017 3:40 PM CDT [facility] - . [facility] CALCIUM 9.7 8.6 - 10.2 mg/dL 02/28/2017 3:40 PM CDT [facility] - . [facility] BUN 8 8 - 23 mg/dL 02/28/2017 3:40 PM CDT [facility] - . [facility] CREATININE 0.62 0.51 - 0.95 mg/dL 02/28/2017 3:40 PM CDT [facility] - . [facility] GLUCOSE 111(H) 74 - 99 mg/dL 02/28/2017 3:40 PM CDT [facility] - [facility] GFR >60 >=60 mL/min/1.7 3 sq meter 02/28/2017 3:40 PM CDT [facility] - [facility] Comment: eGFR has not been [...] 3 sq meter 02/28/2017 3:40 PM CDT [facility] - [facility] ANION GAP 11 8 - 16 mmol/L 02/28/2017 3:40 PM CDT [facility] - [facility] Blood Venipuncture / Unknown 02/28/2017 12:35 PM CDT 02/28/2017 12:35 PM CDT Dinh Mahmood MD CHEMISTRY ORDERABLES [facility] [employer] [facility]# [id number] [address] [place] [address] * EXTRA TUBE (GREEN) (02/28/2017 12:35 PM CDT) Blood Venipuncture / Unknown 02/28/2017 12:35 PM CDT 02/28/2017 12:35 PM CDT External Provider [facility] CHEMISTRY ORDERA BLES Performing Organization Address [facility] Co de Phone Number [facility] [employer] [facility]# [id number] [address] [place] [address] * (ABNORMAL) CBC WITH DIFFERENTIAL (02/28/2017 12:31 PM CDT) [facility] WBC 8.6 4.0 - 9.8 K/uL 02/28/2017 3:12 PM CDT [employer] [facility] - [facility] RBC 4.51 3.90 - 4.90 M/uL 02/28/2017 3:12 PM CDT [employer] [facility] - [facility] HEMOGLOBIN 13.5 11.8 - 14.8 g/dL 02/28/2017 3:12 PM CDT [employer] [facility] - [facility] HEMATOCRIT 40.9 35.5 - 44.0 % 02/28/2017 3:12 PM CDT [employer] [facility] - [facility] MCV 90.7 82.0 - 99.0 fL 02/28/2017 3:12 PM CDT [employer] [facility] - [facility] MCH 29.9 27.2 - 32.6 pg 02/28/2017 3:12 PM CDT [facility] [facility] - [facility] MCHC 33.0 31.5 - 35.5 g/dL 02/28/2017 3:12 PM CDT [facility] [facility] - [facility] RDW 12.5 11.5 - 14.5 % 02/28/2017 3:12 PM CDT [employer] LABORATORY SERVICES - [facility] RDW-STDEV 41.5 37.1 - 48.7 fL 02/28/2017 3:12 PM CDT [employer] [facility] - [facility] PLATELETS 588(H) 140 - 350 K/uL 02/28/2017 3:12 PM CDT [employer] [facility] - [facility] MPV 9.3 9.3 - 12.4 fL 02/28/2017 3:12 PM CDT [employer] LAB[facility] SERVICES - . [facility] NEUTROPHILS 72 % 02/28/2017 3:12 PM CDT [employer] [facility] - [facility] LYMPHOCYTES 21 % 02/28/2017 3:12 PM CDT [facility] - [facility] MONOCYTES 6 % 02/28/2017 3:12 PM CDT [employer] [facility] - [facility] EOSINOPHILS 0 % 02/28/2017 3:12 PM CDT [facility] [facility] - [facility] BASOPHILS 0 % 02/28/2017 3:12 PM CDT [employer] [facility] SERVICES - . [facility] IMMATURE GRANULOCYTES 0 % 02/28/2017 3:12 PM CDT [employer] [facility] SERVICES - . [facility] NEUTROPHIL ABSOLUTE 6.12 1.90 - 7.00 K/uL 02/28/2017 3:12 PM CDT [facility] - [facility] LYMPHOCYTE ABSOLUTE 1.83 0.70 - 4.50 K/uL 02/28/2017 3:12 PM CDT [facility] [facility] - [facility] MONOCYTE ABSOLUTE 0.54 0.10 - 1.30 K/uL 02/28/2017 3:12 PM CDT [employer] [facility] SERVICES - . [facility] EOSINOPHIL ABSOLUTE 0.02 0.00 - 0.70 K/uL 02/28/2017 3:12 PM CDT [employer] [facility] - [facility] BASOPHILS ABSOLUTE 0.02 0.00 - 0.20 K/uL 02/28/2017 3:12 PM CDT [facility] - [facility] IMMATURE GRANULOCYTES ABSOLUTE 0.03 0.00 - 0.03 K/uL 02/28/2017 3:12 PM CDT [employer] [facility]ORY SERVICES - . [facility] Blood 02/28/2017 12:3 1 PM CDT 02/28/2017 2:58 PM CDT [facility] SHAHID HEMATOLOGY ORD ERABLES [facility] [employer] [facility]# [id number] [address] [place] [address] * EXTRA TUBE (LAV) (02/28/2017 12:31 PM CDT) Blood Venipuncture / Unknown 02/28/2017 12:31 PM CDT 02/28/2017 12:32 PM CDT Mylene Gutierrez MD HEMATOLOGY ORDERABLE S [facility] [employer] [facility]# [id number] [address] [place] [address] documented in this encounter Visit Diagnoses Diagnosis [...] Apoorva Mcallister RN) 204 (Given - Provider: Irasema Back, LOGAN) methylPREDNISolone sodium succinate PF (SOLU-Medrol [...] Routine documented in this encounter Care Teams Cheese Packer Relationship Specialty Start Date End Date Gadiel Zavala MD [address] [place] [phone] PCP - General Family Practice 03/03/17 documented as of this encounter
--- OUTSIDE RECORDS SUMMARY | 2024-04-17 17:15 | XMS_ITS | Encounter Summary ---
Author Organization [facility] Address [address] [place] [address] Care Team Providers Care Chief Controller Name Role Phone [facility], External Provider Primary Care Provider U navailable Reason for Visit * Auth/Cert Specialty Diagnoses / Procedures Referred By Delores t Referred To Contact Radiology [facility] Spine [address] [address] Referral ID Status Reason Start Date Expiration Date Visits Re quested Visits Authorized [id number] 1 1 Encounter Details Date Type Department Care Team (Latest Contact Info) Description 01/17/2017 2:51 PM CDT - 01/17/2017 11:59 PM CDT Hospital Encounter [facility] Medical [address] [address] Mylene Gutierrez MD [address] [facility] [address] [facility] [place] [address] -x0 (Work) Discharge Disposition: Home [...] or instability identified. Dictated from Location 1, [facility] Narrative 01/18/2017 6:54 AM CDT LATERAL VIEWS [...] between flexion and extension. Procedure Note Boom Paulnio MD - 01/18/2017 LATERAL VIEWS OF CERVICAL [...] or instability identified. Dictated from Location 1, [facility] Mylene Gutierrez MD DIAGNOSTIC IMAGING O RDERABLES documented in this encounter Visit Diagnoses Diagnosis Cervicalgia documented in this encounter Care Teams Chief Controller Relationship Specialty Start Date End Date [facility], External Provider [address] [place] [address] PCP - General 01/17/17 03/02/17 documented as of this encounter
--- OUTSIDE RECORDS SUMMARY | 2024-04-17 17:15 | XMS_ITS | Encounter Summary ---
Author Organization [facility] Address [address] [place] [address] Care Team Providers Care Varnish Finisher Name Role Phone [facility], External Provider Primary Care Provider U marylouailable Encounter Details Date Type Department Care Team (Latest Contact Info) Description 02/14/2017 9:37 AM CDT - 02/14/2017 11:59 PM CDT Hospital Encounter [facility] [address] [place] [address] Mylene Gutierrez MD [address] [facility] [address] [address] -x0 (Work) Discharge Disposition: Home or Self [...] completed in accordance with procedure. [place] to [place] 1442 An Extubation Emergence unev entful Awake, [...] tablet Take 50 mcg by mouth daily grain unloader. atorvastatin (LIPITOR) 20 mg tablet Take 20 [...] by mouth nightly as needed for Insomnia. diazePAM (VALIUM) 5 mg tablet Take 1 Tablet (5 mg) by mouth every 8 hours as needed for Spasm or Discomfort. Do not take with sleeping aid/Lunesta. 60 Tablet 02/17/2017 03/14/2017 celecoxib (CeleBREX) 200 mg capsule Take 200 mg by mouth daily at bedtime. 02/17/2017 oxyCODONE-acetaminophen (PERCOCET) 7.5-325 mg Tablet Take 1 Tablet by mouth every 8 hours as needed for Pain, Moderate. 03/03/2017 documented as of this encounter OR Notes * Anesthesia PAT Evaluation - Yi Ledezma FNP - 02/14/2017 10:39 AM CDT Pre-Procedure Anesthesiology Consultation and Evaluation (PACE) Service 02/14/2017 10:39 AM Name: Kaitlin Bond Age: 66 y.o. Sex: female CSN: [id number] Procedure: ACDF C3-4 Allergies Allergen Reactions ??? Adhesive Rash Current Outpatient Prescriptions Medication Sig Dispense Refill ??? celecoxib (CeleBREX) 200 mg capsule Take 200 mg by mouth daily at bedtime. ??? omeprazole (PriLOSEC) 40 mg Capsule, Delayed Release(E.C.) Take 40 mg by mouth daily. ??? levothyroxine 50 mcg tablet Take 50 mcg by mouth daily grain unloader. ??? atorvastatin (LIPITOR) 20 mg tablet Take [...] was obtained directly from the patient or marketing representative or caregiver or another available healthcare resource and updated in [facility] EMR. History Smoking Status ??? Former Smoker ??? Years: 5.00 ??? Types: Cigarettes ??? Quit date: 1988 Smokeless Tobacco ??? Never Used Comment: 4 per day Patient screened for tobacco use and identified as a Non-User of tobacco. REPORT AND NECESSARY FOLLOW-UP History and physical performed in [place]; tests (ECG, blood work) reviewed. Abnormal Results Found: no Further Testing or Evaluation Required: no Final [place] Center Review: May proceed with procedure/surgery: yes [...] - 9.8 K/uL 02/14/2017 10:57 AM CDT [employer] [facility] - [facility] RBC 4.29 3.90 - 4.90 M/uL 02/14/2017 10:57 AM CDT [employer] [facility] SERVICES - . [facility] HEMOGLOBIN 13.0 11.8 - 14.8 g/dL 02/14/2017 10:57 AM CDT [employer] [facility] - [facility] HEMATOCRIT 38.6 35.5 - 44.0 % 02/14/2017 10:57 AM CDT [employer] SERVICES - . [facility] MCV 90.0 82.0 - 99.0 fL 02/14/2017 10:57 AM CDT [employer] [facility] - [facility] MCH 30.3 27.2 - 32.6 pg 02/14/2017 10:57 AM CDT [employer] [facility] - [facility] MCHC 33.7 31.5 - 35.5 g/dL 02/14/2017 10:57 AM CDT [employer] [facility] - [facility] PLATELETS 351(H) 140 - 350 K/uL 02/14/2017 10:57 AM CDT [employer] [facility] - [facility] MPV 9.7 9.3 - 12.4 fL 02/14/2017 10:57 AM CDT [employer] [facility] - [facility] RDW 12.6 11.5 - 14.5 % 02/14/2017 10:57 AM CDT [employer] [facility] - [facility] RDW-STDEV 41.4 37.1 - 48.7 fL 02/14/2017 10:57 AM CDT [employer] [facility] - [facility] Blood Venipuncture / Unknown 02/14/2017 10:06 AM CDT 02/14/2017 10:41 AM CDT Arya Escamilla MD HEMATOLOGY ORDERABLE S [facility] [employer]# [id number] [address] [place] [address] * TYPE AND SCREEN (02/14/2017 10:06 AM CDT) ABO GROUP A 02/14/2017 10:06 AM CDT [facility] LABORATORY SERVICES -- [facility] RH (D) TYPE Positive 02/14/2017 10:06 AM CDT [facility] LABORATORY SERVICES -- [facility] ANTIBODY SCREEN Negative 02/14/2017 10:06 AM CDT [facility] LABORATORY SERVICES -- [facility] Blood Venipuncture / Unknown 02/14/2017 10:06 AM CDT 02/14/2017 10:41 AM CDT Mylene Gutierrez MD BLOOD BANK ORDERABLE S [facility] [employer] [facility] -- [facility]# [id number] [address] [place] [address] * EDUCATION ANTERIOR CERVICAL DISCECTOMY AND FUSION - LU (02/14/2017 9:57 AM CDT) Education Name ANTERIOR CERVICAL DISCECTOMY AND FUSION LU EDUCATION INTERFACE Education URL [email or web address] LU EDUCATION INTERFACE EDUCATION ACCESS CODE [id number] LU EDUCATION INTERFACE EDUCATION ISSUE DATE Feb [...] on filedocumented in this encounter Care Teams Varnish Finisher Relationship Specialty Start Date End Date [facility], External Provider [address] [place] [address] PCP - General 01/17/17 03/02/17 documented as of this encounter
--- OUTSIDE RECORDS SUMMARY | 2024-04-17 17:15 | XMS_ITS | Encounter Summary ---
Author Organization [facility] Address [address] [place] [address] Care Team Providers Care Dresser Tender Name Role Phone [facility], External Provider Primary Care Provider U navailable Reason for Visit * Auth/Cert Specialty Diagnoses / Procedures Referred By Deolres t Referred To Contact General Surgery Diagnoses CERVICAL SPONDYLOSIS Procedures CERVICAL DISCECTOMY FUSION 1 LEVEL [address]IOR [address] [place] [address] [place] [address] Referral ID Status Reason Start Date Expiration Date Visits Re quested Visits Authorized [id number] 1 1 Encounter Details Date Type Department Care Team (Late st Contact Info) Description 02/16/2017 12:00 PM CDT - 02/16/2017 2:55 PM CDT Surgery [facility] Operating Room [address] [place] [address] Mylene Gutierrez MD [address] [facility] [address] [address] -x0 (Work) CERVICAL DISCECTOMY FUSION [...] Primary Neurological Surgery 1 Case Notes [employer]ETNA, [id number] PER GENESIS, CPT 0085505, 60400, 60838 documented in this encounter Social History Tobacco [...] Thank you for choosing [facility] for your care! The following is a [...] food bags, a child, or a vacuum lamp cleaner. ?? 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 atorvastatin (LIPITOR) 20 mg tablet Take 20 [...] to home today. Elaine Dubon PA-C Pgr: [phone] * Maggy Willard PA - 02/16/2017 2:40 PM CDT [place], [place] [address] Neurosurgery Brief Operative Note Kaitlin Bond 1950 [phone] Today's Date: 02/16/2017 Pre-op Dx: cervical stenosis [...] Gutierrez MD - 02/16/2017 4:20 PM CDT [place], [place] [address] Operative Report CSN: [id number] DATE OF SERVICE: 02/16/2017 SURGEON Mylene Gutierrez MD PREOPERATIVE DIAGNOSIS Cervical stenosis. POSTOPERATIVE DIAGNOSIS Cervical stenosis. OPERATION NAME C3-4 anterior cervical diskectomy, C3-4 arthrodesis, C3-C4 instrumentation, intraoperative microscope use, and intraoperative fluoroscopy. ANESTHESIA General. HEART COORDINATOR ZEHRA Emerson, who participated in both the [...] exposing the underlying disc. I then placed [place] pins in the body of C3 and [...] tightened the screws down and applied the senior center manager recommended locking mechanism. I removed my self-retaining [...] and needle counts were correct. TQ:MEDQ DID: [id number] Dictated by: Mylene Gutierrez MD documented in [...] pain/comfort utilizing verbal/nonverbal pain scales; assess culturalor taoism indicators attached to pain; administer pain medications [...] PM CDT CERVICAL SPONDYLOSIS Case Notes AETNA, [id number] PER GENESIS, CPT 69246, 71892, 78550 VERIFICATION BLOOD GROUP Stat 02/16/2017 11:30 AM [...] IMPRESSION: As above. DICTATION LOCATION: Location 1, [facility] Narrative 02/16/2017 5:46 PM CDT XR [...] IMPRESSION: As above. DICTATION LOCATION: Location , [facility] Maggy Willard PA-C DIAGNOSTIC IMAGING ORDERABLES * XR FLUORO LESS THAN 1 HOUR (02/16/2017 2:32 PM CDT) Anatomical Region Laterality Modality Computed Radiogr aphy 02/16/2017 2:33 PM CDT Impressions 02/17/2017 8:26 AM CDT IMPRESSION: Intraoperative fluoroscopy was provided during cervical spine surgery. DICTATION LOCATION: Location 1 - [facility] Narrative 02/17/2017 8:26 AM CDT FLUOROSCOPY [...] spine surgery. DICTATION LOCATION: Location 1 - [facility] Mylene Gutierrez MD DIAGNOSTIC IMAGING O RDERABLES * VERIFICATION BLOOD GROUP (02/16/2017 11:30 AM CDT) ABO GROUP A 02/16/2017 11:30 AM CDT [facility] RH (D) TYPE Positive 02/16/2017 11:30 AM CDT [facility] Blood Venipuncture / Unknown 02/16/2017 11:30 AM CDT 02/16/2017 11:41 AM CDT Carolina Peck MD BLOOD BANK STACY OLIVIA [facility] Organization Address City/State/ZIP Co de Phone Number [facility] [phone] [address] [facility] [place] [place] [address] documented in this encounter Visit Diagnoses Not [...] Routine documented in this encounter Care Teams Dresser Tender Relationship Specialty Start Date End Date [facility], External Provider [address] [place] [address] PCP - General 01/17/17 03/02/17 documented as of this encounter
--- OUTSIDE RECORDS SUMMARY | 2024-04-17 17:15 | XMS_ITS | Encounter Summary ---
Author Organization [facility] Address [address] [place] [address] Care Team Providers Care Miner Pick Name Role Phone Gadiel Zavala MD Primary Care Provider [phone] Reason for Referral * Eval and Treat (Routine) - Closed Specialty Diagnoses / Procedures Referred By Contac t Referred To Contact Diagnoses Cervical stenosis of spine Cervical myelopathy Fall, subsequent encounter StrYasmin martinez DO [address] [place] [phone] Referral ID Status Reason Start Date Expiration Date V isits Requested Visits Authorized [id number] Closed CRS To Schedule (STL) 03/14/2017 03/14/2018 12 12 ONAL EXTENSION SERVICE SPECIALIST * Eval and Treat (Routine) - Closed Specialty Diagnoses / Procedures Referred By Contac t Referred To Contact Diagnoses Cervical stenosis of spine Cervical myelopathy Fall, subsequent encounter Yasmin Vieyra DO [address] [place] [phone] Referral ID Status Reason Start Date Expiration Date V isits Requested Visits Authorized [id number] Closed CRS To Schedule (STL) 03/14/2017 03/14/2018 12 12 ONAL EXTENSION SERVICE SPECIALIST Reason for Visit * Auth/Cert Specialty Diagnoses / Procedures Referred By Contac t Referred To Contact Rehabilitation Diagnoses Cervical Stenosis [facility] Rehabilitation Services [address] [place] [address] Referral ID Status Reason Start Date Expiration Date Visits Re quested Visits Authorized 03/01/2017 04/01/2018 Encounter Details Date Type Department Care Team (Latest Contact Info) Description 03/03/2017 6:21 PM CDT - 03/15/2017 11:00 AM REGIONAL EXTENSION SERVICE SPECIALIST Hospital Encounter [facility] Rehabilitation Services [address] [place] [id number] Yasmin Vieyra DO [address] [phone] Cervical stenosis of spine Discharge [...] Comments Blood Pressure 108/71 03/15/2017 5:00 AM REGIONAL EXTENSION SERVICE SPECIALIST Pulse 90 03/15/2017 5:00 AM REGIONAL EXTENSION SERVICE SPECIALIST Temperature 36.5 ??C (97.7 ??F) 03/15/2017 5:00 AM CS T Respiratory Rate 18 03/15/2017 5:00 AM REGIONAL EXTENSION SERVICE SPECIALIST Oxygen Saturation 99% 03/15/2017 5:00 AM REGIONAL EXTENSION SERVICE SPECIALIST Inhaled Oxygen Concentration - - Weight 59.4 kg (131 lb) 03/14/2017 7:00 AM REGIONAL EXTENSION SERVICE SPECIALIST Height 160 cm (5' 3 ) 03/11/2017 9:03 AM REGIONAL EXTENSION SERVICE SPECIALIST Body Mass Index 23.21 03/11/2017 9:03 AM REGIONAL EXTENSION SERVICE SPECIALIST documented in this encounter Discharge Summaries * Yasmin Vieyra DO - 03/15/2017 11:31 AM CST [facility] Discharge Summary Patient Name: Kaitlin Bond Admission [...] SYNTHROID Take 50 mcg by mouth daily purchasing manager. Refills: 0 lisinopril 40 mg tablet [...] Your Medications These medications were sent to [facility] [address] [place] [phone] ?? methocarbamol 500 mg tablet Please take [...] ATTESTATION STATEMENTS This note was transcribed using [employer] speaking computerized voice recognition without a human livestock farm manager. This report may or may not have been adjusted for typographical, grammaticaland syntax errors. ONAL EXTENSION SERVICE SPECIALIST documented in this encounter Discharge Instructions * Discharge Instructions* Ariela Dominguez RN - 03/14/2017 2:28 PM REGIONAL EXTENSION SERVICE SPECIALIST FUTURE TESTS/PROCEDURES: Make sure you go to all follow up appointments: -Gadiel Zavala MD 1 Week after discharge from rehabilitation [...] concerns, please call your PCP. Aracely Longoria, ROCKET MOTOR MECHANIC, PSYCHIATRIC ATTENDANT, Lead RT [facility] 03/14/2017 12:48 PM CONTINUED THERAPY and/or HALFWAY CARE: Outpatient therapy - Location - [facility]. The phone number is listed above. Physical Therapy DURABLE MEDICAL EQUIPMENT : Your prescriptions for medical equipment have been sent to [facility]. If there are problems please contact them at [phone]. Tub transfer bench Activity Status: Transfers: Modified [place] and with walker Upper body dressing: Independent Lower body dressing: Independent Bath: Modified [place] Pt. Ambulates with rollator [facility] FAX: [phone] [facility] Assistant Hairstylist: ARIELA DOMINGUEZ, RN ONAL EXTENSION SERVICE SPECIALIST documented in this encounter Medications at Time [...] tablet Take 50 mcg by mouth daily purchasing manager. atorvastatin (LIPITOR) 20 mg tablet Take [...] rehab nursing to maximize functional status. Barriers: ocular care technologist, precautions, pain, endurance, balance, strength. Goals: Mod [...] ATTESTATION STATEMENTS This note was transcribed using [employer] naturally speaking computerized voice recognition without a human livestock farm manager. This report may or may not have been adjusted for typographical, grammaticaland syntax errors. ONAL EXTENSION SERVICE SPECIALIST * Carson Elias MD - 03/15/2017 5:34 [...] TUBAL LIGATION ??? KYPHOPLASTY, LUMBAR 2016 ??? FL CERV SPINE FUSN,ANTER,BELOW C2 N/A 02/16/2017 CERVICAL DISCECTOMY FUSION 1 LEVEL ANTERIOR, C3-4 performed by Mylene Gutierrez MD at [facility] OR [facility] All: Allergies Allergen Reactions ??? Adhesive Rash [...] DO, 2 Gram at 03/14/17 161 ??? rbuynbfcmu-mhfjwaq-axrpiwxhhqgfo (CEPACOL) lozenge 1 Each, 1 Each, Mouth/Throat, [...] discussion with any consultants CARSON ELIAS MD ONAL EXTENSION SERVICE SPECIALIST * Rodrigue Husain, RN - 03/15/2017 12:01 [...] effects of their medication RODRIGUE HUSAIN, LOGAN ONAL EXTENSION SERVICE SPECIALIST * Yasmin Vieyra DO - 03/14/2017 1:53 [...] rehab nursing to maximize functional status. Barriers: ocular care technologist, precautions, pain, endurance, balance, strength. Goals: Mod [...] ATTESTATION STATEMENTS This note was transcribed using [employer] computerized voice recognition without a human livestock farm manager. This report may or may not have been adjusted for typographical, grammaticaland syntax errors. ONAL EXTENSION SERVICE SPECIALIST * Aracely Longoria [facility] - 03/14/2017 12:49 PM CST Respiratory Care [...] 03/14/2017 05:30 AM Thank you, Aracely Longoria, ROCKET MOTOR MECHANIC, PSYCHIATRIC ATTENDANT Lead Respiratory Therapist [facility] [phone] All Respiratory Orders, Assessments, Follow-up Appointments are completed per [facility] Policy. ONAL EXTENSION SERVICE SPECIALIST * Shorty Hanson LPN - 03/14/2017 10:37 AM CST Patient demonstrated ability to release wheelchair alarmed seatbelt. ONAL EXTENSION SERVICE SPECIALIST * Shorty Hanson LPN - 03/14/2017 10:37 [...] Room Close to Nurses Station [] Other: ONAL EXTENSION SERVICE SPECIALIST * Shorty Hanson LPN - 03/14/2017 10:35 AM CST Patient Education on Medications Education provided Re: Kaitlin Javier Ronda This education was provided to the patient Name of medication:colace The education included the following: Administering their medication SHORTY HANSON LPN ONAL EXTENSION SERVICE SPECIALIST * Carson Elias MD - 03/14/2017 5:43 [...] TUBAL LIGATION ??? KYPHOPLASTY, LUMBAR 2016 ??? FL CERV SPINE FUSN,ANTER,BELOW C2 N/A 02/16/2017 CERVICAL DISCECTOMY FUSION 1 LEVEL ANTERIOR, C3-4 performed by Mylene Gutierrez MD at [facility] All: Allergies Allergen Reactions ??? Adhesive Rash ??? Adhesive Tape-Silicones Rash Reaction: RASH ??? Gadolinium-Containing Contrast Media Hives ??? Magnevist [Gadopentetate Dimeglumine] Hives Outpt Meds: Cannot display prior to admission medications because the patient has not been admitted in this contact. Inpatient Meds: Current Facility-Administered Medications: ??? snyxlgbdwq-mmtlyro-nsygmcrvkcifo (CEPACOL) lozenge 1 Each, 1 Each, Mouth/Throat, [...] discussion with any consultants CARSON ELIAS MD ONAL EXTENSION SERVICE SPECIALIST * Kati Joshua RN - 03/13/2017 11:00 [...] effects of their medication Kati Joshua RN ONAL EXTENSION SERVICE SPECIALIST * Yasmin Vieyra DO - 03/13/2017 12:39 [...] rehab nursing to maximize functional status. Barriers: ocular care technologist, precautions, pain, endurance, balance, strength. Goals: Mod [...] ATTESTATION STATEMENTS This note was transcribed using [employer] speaking computerized voice recognition without a human livestock farm manager. This report may or may not have been adjusted for typographical, grammaticaland syntax errors. ONAL EXTENSION SERVICE SPECIALIST * Carson Elias MD - 03/13/2017 5:31 [...] TUBAL LIGATION ??? KYPHOPLASTY, LUMBAR 2017 ??? FL CERV SPINE FUSN,ANTER,BELOW C2 N/A 02/16/2017 CERVICAL DISCECTOMY FUSION 1 LEVEL ANTERIOR, C3-4 performed by Mylene Gutierrez MD at [facility] All: Allergies Allergen Reactions ??? Adhesive Rash ??? Adhesive Tape-Silicones Rash Reaction: RASH ??? Gadolinium-Containing Contrast Media Hives ??? Magnevist [Gadopentetate Dimeglumine] Hives Outpt Meds: Cannot display prior to admission medications because the patient has not been admitted in this contact. Inpatient Meds: Current Facility-Administered Medications: ??? utmfloaqns-yplobvo-nytxljvzwrglt (CEPACOL) lozenge 1 Each, 1 Each, Mouth/Throat, [...] discussion with any consultants CARSON ELIAS MD ONAL EXTENSION SERVICE SPECIALIST * Carson Elias MD - 03/12/2017 5:40 [...] TUBAL LIGATION ??? KYPHOPLASTY, LUMBAR 2017 ??? FL CERV SPINE FUSN,ANTER,BELOW C2 N/A 02/16/2017 CERVICAL DISCECTOMY FUSION 1 LEVEL ANTERIOR, C3-4 performed by Mylene Gutierrez MD at [facility] OR [facility] All: Allergies Allergen Reactions ??? Adhesive Rash [...] discussion with any consultants CARSON ELIAS MD ONAL EXTENSION SERVICE SPECIALIST * Finesse Zheng MD - 03/11/2017 3:58 [...] rehab nursing to maximize functional status. Barriers: ocular care technologist, precautions, pain, endurance, balance, strength. Goals: Mod I for ADLs/mobility -Precautions: fall, spinal--no bracing--Trial a soft collar for comfort -Team conference: weekly -Cervical myelopathy status post surgery: Comprehensive rehabilitative program to maximize functional independence. Monitor bowel/bladder as below. Pain control as below. No bracing required as per surgeon -Discussed in team conference with nursing, therapy and director of career services. See note for details. Highlights include: independent [...] ATTESTATION STATEMENTS This note was transcribed using [employer] speaking computerized voice recognition without a human livestock farm manager. This report may or may not have been adjusted for typographical, grammaticaland syntax errors. ONAL EXTENSION SERVICE SPECIALIST * Carson Elias MD - 03/11/2017 5:30 [...] TUBAL LIGATION ??? KYPHOPLASTY, LUMBAR 2016 ??? FL CERV SPINE FUSN,ANTER,BELOW C2 N/A 02/16/2017 CERVICAL DISCECTOMY FUSION 1 LEVEL ANTERIOR, C3-4 performed by Mylene Gutierrez MD at [facility] All: Allergies Allergen Reactions ??? Adhesive [...] discussion with any consultants CARSON ELIAS MD ONAL EXTENSION SERVICE SPECIALIST * Carson Elias MD - 03/10/2017 5:39 [...] TUBAL LIGATION ??? KYPHOPLASTY, LUMBAR 2016 ??? FL CERV SPINE FUSN,ANTER,BELOW C2 N/A 02/16/2017 CERVICAL [...] 100 mg, 100 mg, Oral, BID, Strike, Ysamin R, DO, 100 mg at 03/09/172208 ??? [...] discussion with any consultants CARSON ELIAS MD ONAL EXTENSION SERVICE SPECIALIST * Carson Elias MD - 03/09/2017 5:43 AM CST Images from the original note were not included. Internal Medicine Progress Note CRASON ELIAS MD 03/09/2017 Patient Name: Kaitlin Bond [...] TUBAL LIGATION ??? KYPHOPLASTY, LUMBAR 2016 ??? FL CERV SPINE FUSN,ANTER,BELOW C2 N/A 02/16/2017 CERVICAL DISCECTOMY FUSION 1 LEVEL ANTERIOR, C3-4 performed by Mylene Gutierrez MD at [facility] All: Allergies Allergen Reactions ??? Adhesive [...] discussion with any consultants CARSON ELIAS MD ONAL EXTENSION SERVICE SPECIALIST * Terryjuan Yasmin Anibal, DO - 03/08/2017 [...] rehab nursing to maximize functional status. Barriers: ocular care technologist, precautions, pain, endurance, balance, strength. Goals: Mod I for ADLs/mobility -Precautions: fall, spinal--no bracing--Trial a soft collar for comfort -Team conference: weekly -Cervical myelopathy status post surgery: Comprehensive rehabilitative program to maximize functional independence. Monitor bowel/bladder as below. Pain control as below. No bracing required as per surgeon -Discussed in team conference with nursing, therapy and director of career services. See note for details. Highlights include: independent [...] to home with outpatient therapy Follow ups: -Gadeil Zavala MD 1-2 weeks after discharge from rehabilitation -Dr. Guillermo after discharge for rehab needs -Dr. Gutierrez as directed Total time spent: 25 minutes. Greater than 50% was spent counseling/coordinating care including discussion of pain regimen, bowel/bladder management and rehab progress. Yasmin Vieyra DO ATTESTATION STATEMENTS This note was transcribed using [employer] speaking computerized voice recognition without a human livestock farm manager. This report may or may not have been adjusted for typographical, grammaticaland syntax errors. ONAL EXTENSION SERVICE SPECIALIST * Carson Elias MD - 03/08/2017 5:45 [...] TUBAL LIGATION ??? KYPHOPLASTY, LUMBAR 2016 ??? FL CERV SPINE FUSN,ANTER,BELOW C2 N/A 02/16/2017 CERVICAL DISCECTOMY FUSION 1 LEVEL ANTERIOR, C3-4 performed by Mylene Gutierrez MD at [facility] All: Allergies Allergen Reactions ??? Adhesive [...] discussion with any consultants CARSON ELIAS MD ONAL EXTENSION SERVICE SPECIALIST * Stephanie Mcintosh RN - 03/08/2017 3:57 [...] Room Close to Nurses Station [] Other: ONAL EXTENSION SERVICE SPECIALIST * Yasmin Vieyra DO - 03/07/2017 10:59 [...] ATTESTATION STATEMENTS This note was transcribed using [employer] speaking computerized voice recognition without a human livestock farm manager. This report may or may not have been adjusted for typographical, grammaticaland syntax errors. ONAL EXTENSION SERVICE SPECIALIST * Carson Elias MD - 03/07/2017 5:41 AM CST Images from the original note were not included. Internal Medicine Progress Note CARSON ELIAS MD 03/07/2017 Patient Name: Kaitlin Bond Admit Date: 03/03/2017 PCP: Gadiel Zavala MD Consult requested by Yasmin Reese DO Patient Name: Kaitlin Bond PCP: Gadiel Zavlaa MD Date of admission: 03/03/2017 Date of [...] TUBAL LIGATION ??? KYPHOPLASTY, LUMBAR 2017 ??? FL CERV SPINE FUSN,ANTER,BELOW C2 N/A 02/16/2017 CERVICAL DISCECTOMY FUSION 1 LEVEL ANTERIOR, C3-4 performed by Mylene Gutierrez MD at [facility] All: Allergies Allergen Reactions ??? Adhesive [...] discussion with any consultants CARSON ELIAS MD ONAL EXTENSION SERVICE SPECIALIST * Vonda Alegre RN - 03/07/2017 3:55 [...] Room Close to Nurses Station [] Other: ONAL EXTENSION SERVICE SPECIALIST * Silvestre Johnston LPN - 03/06/2017 11:52 PM CST Patient [...] Room Close to Nurses Station [] Other: ONAL EXTENSION SERVICE SPECIALIST * Yasmin Vieyra DO - 03/06/2017 10:41 [...] ATTESTATION STATEMENTS This note was transcribed using [employer] speaking computerized voice recognition without a human livestock farm manager. This report may or may not have been adjusted for typographical, grammaticaland syntax errors. ONAL EXTENSION SERVICE SPECIALIST * Cyndi Damico RN - 03/06/2017 6:11 [...] Room Close to Nurses Station [] Other: ONAL EXTENSION SERVICE SPECIALIST * Carson Elias MD - 03/06/2017 5:23 [...] TUBAL LIGATION ??? KYPHOPLASTY, LUMBAR 2016 ??? FL CERV SPINE FUSN,ANTER,BELOW C2 N/A 02/16/2017 CERVICAL DISCECTOMY FUSION 1 LEVEL ANTERIOR, C3-4 performed by Mylene Gutierrez MD at [facility] All: Allergies Allergen Reactions ??? Adhesive [...] discussion with any consultants CARSON ELIAS MD ONAL EXTENSION SERVICE SPECIALIST * Azalia Yasmin DO Anibal - 03/05/2017 [...] ATTESTATION STATEMENTS This note was transcribed using [employer] speaking computerized voice recognition without a human livestock farm manager. This report may or may not have been adjusted for typographical, grammaticaland syntax errors. ONAL EXTENSION SERVICE SPECIALIST * Carson Elias MD - 03/05/2017 5:07 [...] TUBAL LIGATION ??? KYPHOPLASTY, LUMBAR 2016 ??? FL CERV SPINE FUSN,ANTER,BELOW C2 N/A 02/16/2017 CERVICAL DISCECTOMY FUSION 1 LEVEL ANTERIOR, C3-4 performed by Mylene Gutierrez MD at [facility] All: Allergies Allergen Reactions ??? Adhesive [...] discussion with any consultants CARSON ELIAS MD ONAL EXTENSION SERVICE SPECIALIST * Aide Hill RN - 03/04/2017 11:30 [...] on 02/28 and was direct admitted to [facility]. MRI was negative. She is on Lovenox for DVT prophylaxis and can be fully anticoagulated if needed. She is getting Tylenol and Valium for pain. She is continent of bowel/bladder, LBM 02/27. As patient was medically appropriate, she was transferred to [facility] for comprehensive rehabilitation. 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 [START ON 03/04/2017] calcium-cholecalciferol [...] TUBAL LIGATION ??? KYPHOPLASTY, LUMBAR 2016 ??? FL CERV SPINE FUSN,ANTER,BELOW C2 N/A 02/16/2017 CERVICAL DISCECTOMY FUSION 1 LEVEL ANTERIOR, C3-4 performed by Mylene Gutierrez MD at [facility] No family history on file. Social [...] found for: TSH, TSHULTRA, THYROIDSTIM, T3, T3FREE, [id number], T4, T4FREE, FT4E, TPO, THROIDAB, THYROIDMI No results found for: MZFTQQRW78 No results found for: NEEF746, VITD25, UGPV31NSN5, WTRA53MKH8, PNRS03KRXJ, 25OHVITD No results found for: HGBA1C, JEEL5DVUV No results found for: PHUA, SGUR, URINELEUKOC, [...] be performed under the direction of a ground support equipment fitter. 2. Essential hypertension: cont lisinopril, Norvasc. 3. [...] and family education/training Maximize mobility to: Modified [place] Maximize self care/ADLs to: Modified [place] Prognosis to meet stated goals: good Anticipated discharge destination: Home with spouse Anticipated continued treatments after Inpatient Rehabilitation Facility discharge: [facility] vs OP therapy program. I reviewed [...] Total time spent on this evaluation, examination, alcohol and drug counselor with patient and/or family/caregivers, determination documentation [...] 03/06/2017 06:05 AM Thank you, Aracely Longoria, ROCKET MOTOR MECHANIC, PSYCHIATRIC ATTENDANT Lead Respiratory Therapist [facility] [phone] Minutes were spent in the care of this patient today; this may have included EMR review, family/patient education or conferences, and discussions with any consultants. ONAL EXTENSION SERVICE SPECIALIST documented in this encounter Consult Notes * Tae Livingston, RD - 03/08/2017 3:04 PM CSTAssociated Order(s): IP CONSULT TO NUTRITION SERVICES CLINICAL DIETITIAN ASSESSMENT NOTE [facility] Kaitlin Bond 66 y.o. female A: Pt [...] no staged pressure injury Edema (per provider resistance welding machine operator charting): none Pert Meds: amlodipine, atorvastatin, lipitor [...] or as needed. Tae Livingston RD, LD ONAL EXTENSION SERVICE SPECIALIST * Carson Elias MD - 03/04/2017 5:13 AM CDTAssociated Order(s): IP CONSULT TO INTERNAL MEDICINE Images from the original note were not included. Internal Medicine Consult CARSON ELIAS MD 03/04/2017 Patient Name: Kaitlin Bond Admit Date: 03/03/2017 PCP: Gadiel Zavala MD Consult requested by Yasmin Reees DO Patient Name: Kaitlin Bond PCP: Gadiel [...] on 02/28 and was direct admitted to [facility] for a MRI evaluation and PT/OT evaluation. [...] TUBAL LIGATION ??? KYPHOPLASTY, LUMBAR 2016 ??? FL CERV SPINE FUSN,ANTER,BELOW C2 N/A 02/16/2017 CERVICAL DISCECTOMY FUSION 1 LEVEL ANTERIOR, C3-4 performed by Mylene Gutierrez MD at [facility] All: Allergies Allergen Reactions ??? Adhesive [...] mg, 20 mg, Oral, Daily BEDTIME, Jocy hSay PA, 20 mg at 03/02/172048 ??? [DISCONTINUED] [...] effects of their medication Delmy Wood, RN ONAL EXTENSION SERVICE SPECIALIST * Care Plan - Katey Rojo RN [...] Room Close to Nurses Station [] Other: ONAL EXTENSION SERVICE SPECIALIST * Care Fide - Carolina Cesar RN - 03/12/2017 3:18 [...] effects of their medication Carolina Cesar RN ONAL EXTENSION SERVICE SPECIALIST * Care Plan - Katey Rojo RN [...] Room Close to Nurses Station [] Other: ONAL EXTENSION SERVICE SPECIALIST * Yordy Elizalde - Carolina Cesar RN [...] effects of their medication Carolina Cesar RN ONAL EXTENSION SERVICE SPECIALIST * Care Plan - Katey Rojo RN [...] Room Close to Nurses Station [] Other: ONAL EXTENSION SERVICE SPECIALIST * Care Plan - Magaly Obregon RN [...] Room Close to Nurses Station [] Other: ONAL EXTENSION SERVICE SPECIALIST * Care Plan - Yuridia Colindres RN [...] Room Close to Nurses Station [] Other: ONAL EXTENSION SERVICE SPECIALIST * Care Plan - Luz Elena Cotto [...] of their medication Luz Elena Flores RN ONAL EXTENSION SERVICE SPECIALIST * Care Plan - Kanchan Arteaga RN [...] effects of their medication Kanchan Arteaga RN ONAL EXTENSION SERVICE SPECIALIST * Care Plan - Kanchan Arteaga RN [...] effects of their medication Kanchan Arteaga RN ONAL EXTENSION SERVICE SPECIALIST * Care Plan - Kanchan Arteaga RN [...] effects of their medication Kanchan Arteaga RN ONAL EXTENSION SERVICE SPECIALIST * Care Plan - Supriya Strong RN [...] Room Close to Nurses Station [] Other: ONAL EXTENSION SERVICE SPECIALIST * Care Plan - Kae Vega, RN [...] Room Close to Nurses Station [] Other: ONAL EXTENSION SERVICE SPECIALIST documented in this encounter Plan of [...] CBC WITH DIFFERENTIAL Routine 03/14/2017 5:30 AM REGIONAL EXTENSION SERVICE SPECIALIST OSMOLALITY Routine 03/14/2017 5:30 AM REGIONAL EXTENSION SERVICE SPECIALIST BASIC METABOLIC PANEL Routine 03/14/2017 5:30 AM REGIONAL EXTENSION SERVICE SPECIALIST CBC WITH DIFFERENTIAL Routine 03/13/2017 6:30 AM REGIONAL EXTENSION SERVICE SPECIALIST BASIC METABOLIC PANEL Routine 03/13/2017 6:30 AM REGIONAL EXTENSION SERVICE SPECIALIST RAPID STREP SCREEN WITH REFLEX CULTURE Routine 03/12/2017 6:05 AM REGIONAL EXTENSION SERVICE SPECIALIST STREPTOCOCCUS GROUP A CULTURE Routine 03/12/2017 6:05 AM REGIONAL EXTENSION SERVICE SPECIALIST CBC WITH DIFFERENTIAL Routine 03/11/2017 11:06 AM REGIONAL EXTENSION SERVICE SPECIALIST BASIC METABOLIC PANEL Routine 03/11/2017 11:05 AM REGIONAL EXTENSION SERVICE SPECIALIST CBC WITH DIFFERENTIAL Routine 03/09/2017 7:30 AM REGIONAL EXTENSION SERVICE SPECIALIST BASIC METABOLIC PANEL Routine 03/09/2017 7:30 AM REGIONAL EXTENSION SERVICE SPECIALIST CBC WITH DIFFERENTIAL Routine 03/08/2017 7:06 AM REGIONAL EXTENSION SERVICE SPECIALIST OSMOLALITY Routine 03/08/2017 7:06 AM REGIONAL EXTENSION SERVICE SPECIALIST CORTISOL LEVEL Routine 03/08/2017 7:06 AM REGIONAL EXTENSION SERVICE SPECIALIST BASIC METABOLIC PANEL Routine 03/08/2017 7:06 AM REGIONAL EXTENSION SERVICE SPECIALIST URINALYSIS WITH REFLEX CULTURE Routine 03/07/2017 1:59 PM REGIONAL EXTENSION SERVICE SPECIALIST SODIUM, RANDOM URINE Routine 03/07/2017 1:59 PM REGIONAL EXTENSION SERVICE SPECIALIST OSMOLALITY, URINE Routine 03/07/2017 1:5 9 PM REGIONAL EXTENSION SERVICE SPECIALIST URINE CULTURE Routine 03/07/2017 1:59 PM REGIONAL EXTENSION SERVICE SPECIALIST CBC WITH DIFFERENTIAL Routine 03/07/2017 7:40 AM REGIONAL EXTENSION SERVICE SPECIALIST OSMOLALITY Routine 03/07/2017 7:40 AM REGIONAL EXTENSION SERVICE SPECIALIST BASIC METABOLIC PANEL Routine 03/07/2017 7:40 AM REGIONAL EXTENSION SERVICE SPECIALIST RT ASSESS AND TREAT Routine 03/06/2017 1 :06 PM REGIONAL EXTENSION SERVICE SPECIALIST CBC WITH DIFFERENTIAL Routine 03/06/2017 6:05 AM REGIONAL EXTENSION SERVICE SPECIALIST BASIC METABOLIC PANEL Routine 03/06/2017 6:05 AM REGIONAL EXTENSION SERVICE SPECIALIST CBC WITH DIFFERENTIAL Routine 03/04/2017 6:00 AM CDT COMPREHENSIVE METABOLIC PANEL Routine 03/04/2017 6:00 AM CDT URINALYSIS WITH REFLEX CULTURE Routine 03/03/2017 10:08 PM CDT documented in this encounter Results * (ABNORMAL) OSMOLALITY (03/14/2017 5:30 AM REGIONAL EXTENSION SERVICE SPECIALIST) OSMOLALITY 272(L) 275 - 300 mOsm/kg 03/14/2017 7:25 AM [facility] [employer] SERVICES [facility] Blood Venipuncture / Unknown 03/14/2017 5:30 AM REGIONAL EXTENSION SERVICE SPECIALIST 03/14/2017 6:54 AM REGIONAL EXTENSION SERVICE SPECIALIST Carson Elias MD CHEMISTRY ORDERABLES [employer] SERVICES [facility]# [id number] [address] [place] [address] * (ABNORMAL) CBC WITH DIFFERENTIAL (03/14/2017 5:30 AM REGIONAL EXTENSION SERVICE SPECIALIST) Pathologist [facility] WBC 6.8 4.0 - 9.8 K/uL 03/14/2017 7:08 AM [facility] [employer] SERVICES [facility] RBC 4.04 3.90 - 4.90 M/uL 03/14/2017 7:08 AM [facility] [employer] SERVICES - [facility] HEMOGLOBIN 12.0 11.8 - 14.8 g/dL 03/14/2017 7:08 AM [facility] [employer] SERVICES [facility] HEMATOCRIT 35.9 35.5 - 44.0 % 03/14/2017 7:08 AM [facility] [employer] SERVICES - [facility] MCV 88.9 82.0 - 99.0 fL 03/14/2017 7:08 AM [facility] [employer] SERVICES - [facility] MCH 29.7 27.2 - 32.6 pg 03/14/2017 7:08 AM [employer] - [facility] MCHC 33.4 31.5 - 35.5 g/dL 03/14/2017 7:08 AM [facility] [employer] - . [facility] RDW 13.0 11.5 - 14.5 % 03/14/2017 7:08 AM [facility] [employer] - [facility] RDW-STDEV 42.5 37.1 - 48.7 fL 03/14/2017 7:08 AM [employer] - [facility] PLATELETS 413(H) 140 - 350 K/uL 03/14/2017 7:08 AM [facility] [employer] SERVICES - [facility] MPV 9.8 9.3 - 12.4 fL 03/14/2017 7:08 AM [facility] [employer] SERVICES - [facility] NEUTROPHILS 62 % 03/14/2017 7:08 AM [facility] [employer] SERVICES - [facility] LYMPHOCYTES 30 % 03/14/2017 7:08 AM REGIONAL EXTENSION SERVICE SPECIALIST [employer] LABORATORY SERVICES - [facility] MONOCYTES 7 % 03/14/2017 7:08 AM [facility] [employer] SERVICES - [facility] EOSINOPHILS 1 % 03/14/2017 7:08 AM REGIONAL EXTENSION SERVICE SPECIALIST [employer] SERVICES - [facility] BASOPHILS 0 % 03/14/2017 7:08 AM REGIONAL EXTENSION SERVICE SPECIALIST [employer] - [facility] IMMATURE GRANULOCYTES 0 % 03/14/2017 7:08 AM [facility] [employer] - [facility] NEUTROPHIL ABSOLUTE 4.24 1.90 - 7.00 K/uL 03/14/2017 7:08 AM [facility] [employer] - [facility] LYMPHOCYTE ABSOLUTE 2.01 0.70 - 4.50 K/uL 03/14/2017 7:08 AM [facility] [employer] SERVICES - [facility] MONOCYTE ABSOLUTE 0.46 0.10 - 1.30 K/uL 03/14/2017 7:08 AM REGIONAL EXTENSION SERVICE SPECIALIST [employer] - [facility] EOSINOPHIL ABSOLUTE 0.07 0.00 - 0.70 K/uL 03/14/2017 7:08 AM [employer] - [facility] BASOPHILS ABSOLUTE 0.02 0.00 - 0.20 K/uL 03/14/2017 7:08 AM [employer] - [facility] IMMATURE GRANULOCYTES ABSOLUTE 0.02 0.00 - 0.03 K/uL 03/14/2017 7:08 AM [employer] - [facility] Blood Venipuncture / Unknown 03/14/2017 5:30 AM REGIONAL EXTENSION SERVICE SPECIALIST 03/14/2017 6:52 AM REGIONAL EXTENSION SERVICE SPECIALIST Carson Elias MD HEMATOLOGY ORDERABLE S [employer] - [facility] CLIA# [id number] [address] [place] [address] * (ABNORMAL) BASIC METABOLIC PANEL (03/14/2017 5:30 AM REGIONAL EXTENSION SERVICE SPECIALIST) SODIUM 130(L) 136 - 145 mmol/L 03/14/2017 7:33 AM [facility] [employer] LABORATORY SERVICES - . [place] POTASSIUM 4.7 3.5 - 5.0 mmol/L 03/14/2017 7:33 AM [facility] [employer] LABORATORY SERVICES - . [place] CHLORIDE 94(L) 98 - 107 mmol/L 03/14/2017 7:33 AM [facility] [employer] LABORATORY SERVICES - . [place] CO2 26 22 - 29 mmol/L 03/14/2017 7:33 AM REGIONAL EXTENSION SERVICE SPECIALIST [employer] LABORATORY SERVICES - . [place] CALCIUM 8.9 8.6 - 10.2 mg/dL 03/14/2017 7:33 AM REGIONAL EXTENSION SERVICE SPECIALIST [employer] LABORATORY SERVICES - . [place] BUN 12 8 - 23 mg/dL 03/14/2017 7:33 AM [facility] [employer] LABORATORY SERVICES - . [facility] CREATININE 0.68 0.51 - 0.95 mg/dL 03/14/2017 7:33 AM REGIONAL EXTENSION SERVICE SPECIALIST [employer] LABORATORY SERVICES - . [place] GLUCOSE 81 74 - 99 mg/dL 03/14/2017 7:33 AM REGIONAL EXTENSION SERVICE SPECIALIST [employer] LABORATORY SERVICES - [facility] GFR >60 >=60 mL/min/1.7 3 sq meter 03/14/2017 7:33 AM [facility] [employer] LABORATORY SERVICES - [facility] Comment: eGFR has not been validated for [...] mL/min/1.7 3 sq meter 03/14/2017 7:33 AM REGIONAL EXTENSION SERVICE SPECIALIST [employer] LABORATORY SERVICES - [facility] ANION GAP 10 8 - 16 mmol/L 03/14/2017 7:33 AM REGIONAL EXTENSION SERVICE SPECIALIST [employer] LABORATORY SERVICES [facility] Blood Venipuncture / Unknown 03/14/2017 5:30 AM REGIONAL EXTENSION SERVICE SPECIALIST 03/14/2017 6:54 AM REGIONAL EXTENSION SERVICE SPECIALIST Carson Elias MD CHEMISTRY ORDERABLES [facility] LABORATORY SERVICES - [facility] CLIA# [id number] [address] [place] [address] * (ABNORMAL) CBC WITH DIFFERENTIAL (03/13/2017 6:30 AM REGIONAL EXTENSION SERVICE SPECIALIST) WBC 7.6 4.0 - 9.8 K/uL 03/13/2017 8:41 AM REGIONAL EXTENSION SERVICE SPECIALIST [employer] LABORATORY SERVICES - [facility] RBC 4.41 3.90 - 4.90 M/uL 03/13/2017 8:41 AM [facility] [employer] LABORATORY SERVICES - [facility] HEMOGLOBIN 13.1 11.8 - 14.8 g/dL 03/13/2017 8:41 AM REGIONAL EXTENSION SERVICE SPECIALIST [employer] LABORATORY SERVICES - [facility] HEMATOCRIT 38.8 35.5 - 44.0 % 03/13/2017 8:41 AM REGIONAL EXTENSION SERVICE SPECIALIST [employer] LABORATORY SERVICES - [facility] MCV 88.0 82.0 - 99.0 fL 03/13/2017 8:41 AM REGIONAL EXTENSION SERVICE SPECIALIST [employer] LABORATORY SERVICES - [facility] MCH 29.7 27.2 - 32.6 pg 03/13/2017 8:41 AM REGIONAL EXTENSION SERVICE SPECIALIST [employer] LABORATORY SERVICES - [facility] MCHC 33.8 31.5 - 35.5 g/dL 03/13/2017 8:41 AM [employer] LABORATORY SERVICES - [facility] RDW 12.8 11.5 - 14.5 % 03/13/2017 8:41 AM REGIONAL EXTENSION SERVICE SPECIALIST [employer] LABORATORY SERVICES - [facility] RDW-STDEV 41.5 37.1 - 48.7 fL 03/13/2017 8:41 AM REGIONAL EXTENSION SERVICE SPECIALIST [employer] LABORATORY SERVICES - [facility] PLATELETS 509(H) 140 - 350 K/uL 03/13/2017 8:41 AM [employer] LABORATORY SERVICES - [facility] MPV 9.7 9.3 - 12.4 fL 03/13/2017 8:41 AM [employer] LABORATORY SERVICES - [facility] NEUTROPHILS 68 % 03/13/2017 8:41 AM [employer] LABORATORY SERVICES - [facility] LYMPHOCYTES 24 % 03/13/2017 8:41 AM [employer] LABORATORY SERVICES - [facility] MONOCYTES 7 % 03/13/2017 8:41 AM [facility] [employer] LABORATORY SERVICES - [facility] EOSINOPHILS 1 % 03/13/2017 8:41 AM [facility] [employer] LABORATORY SERVICES - [facility] BASOPHILS 0 % 03/13/2017 8:41 AM [facility] [employer] LABORATORY SERVICES - [facility] IMMATURE GRANULOCYTES 0 % 03/13/2017 8:41 AM [facility] [employer] LABORATORY SERVICES - [facility] NEUTROPHIL ABSOLUTE 5.19 1.90 - 7.00 K/uL 03/13/2017 8:41 AM [facility] [employer] LABORATORY SERVICES - [facility] LYMPHOCYTE ABSOLUTE 1.81 0.70 - 4.50 K/uL 03/13/2017 8:41 AM [facility] [employer] LABORATORY SERVICES - [facility] MONOCYTE ABSOLUTE 0.53 0.10 - 1.30 K/uL 03/13/2017 8:41 AM [facility] [employer] LABORATORY SERVICES - [facility] EOSINOPHIL ABSOLUTE 0.05 0.00 - 0.70 K/uL 03/13/2017 8:41 AM [facility] [employer] LABORATORY SERVICES - [facility] BASOPHILS ABSOLUTE 0.01 0.00 - 0.20 K/uL 03/13/2017 8:41 AM [facility] [employer] LABORATORY SERVICES - [facility] IMMATURE GRANULOCYTES ABSOLUTE 0.01 0.00 - 0.03 K/uL 03/13/2017 8:41 AM [facility] [employer] LABORATORY [employer] - [facility] Blood Venipuncture / Unknown 03/13/2017 6:30 AM REGIONAL EXTENSION SERVICE SPECIALIST 03/13/2017 8:25 AM REGIONAL EXTENSION SERVICE SPECIALIST Carson Elias MD HEMATOLOGY ORDERABLE S [employer] SERVICES - [facility] CLIA# [id number] [address] [place] [address] * (ABNORMAL) BASIC METABOLIC PANEL (03/13/2017 6:30 AM REGIONAL EXTENSION SERVICE SPECIALIST) SODIUM 131(L) 136 - 145 mmol/L 03/13/2017 9:03 AM [facility] [employer] SERVICES - [facility] POTASSIUM 4.1 3.5 - 5.0 mmol/L 03/13/2017 9:03 AM [facility] [employer] SERVICES - [facility] CHLORIDE 91(L) 98 - 107 mmol/L 03/13/2017 9:03 AM [facility] [employer] [facility] - . [place] CO2 26 22 - 29 mmol/L 03/13/2017 9:03 AM [facility] LABORATORY [facility] - [facility] CALCIUM 9.4 8.6 - 10.2 mg/dL 03/13/2017 9:03 AM [facility] LABORATORY [facility] - . [place] BUN 9 8 - 23 mg/dL 03/13/2017 9:03 AM [facility] [employer] [facility] - . [place] CREATININE 0.65 0.51 - 0.95 mg/dL 03/13/2017 9:03 AM [facility] [employer] [facility] - . [place] GLUCOSE 94 74 - 99 mg/dL 03/13/2017 9:03 AM [facility] [employer] [facility] - . [place] GFR >60 >=60 mL/min/1.7 3 sq meter 03/13/2017 9:03 AM [facility] [employer] [facility] Comment: eGFR has not been [...] mL/min/1.7 3 sq meter 03/13/2017 9:03 AM [facility] [employer] [facility] ANION GAP 14 8 - 16 mmol/L 03/13/2017 9:03 AM [facility] [employer] [facility] Blood Venipuncture / Unknown 03/13/2017 6:30 AM REGIONAL EXTENSION SERVICE SPECIALIST 03/13/2017 8:25 AM REGIONAL EXTENSION SERVICE SPECIALIST Carson Elias MD CHEMISTRY ORDERABLES [facility] [employer] [facility]# [id number] [address] [place] [address] * STREPTOCOCCUS GROUP A CULTURE (03/12/2017 6:05 AM REGIONAL EXTENSION SERVICE SPECIALIST) CULTURE No Streptococcus Group A, C, or G isolated 03/14/2017 7:51 AM REGIONAL EXTENSION SERVICE SPECIALIST [facility] Upper respiratory specimen (specimen) SPECIMEN FROM THROAT / Unknown Collection / Unknown 03/12/2017 6:05 AM REGIONAL EXTENSION SERVICE SPECIALIST 03/12/2017 9:35 AM REGIONAL EXTENSION SERVICE SPECIALIST Carson Elias MD MICROBIOLOGY - GENER AL ORDERABLES Performing Organization Address City/[facility] Co de Phone Number [facility] CLIA# [id number] [address] [place] [address] * RAPID STREP SCREEN WITH REFLEX CULTURE (03/12/2017 6:05 AM REGIONAL EXTENSION SERVICE SPECIALIST) [facility] RAPID STREP Negative Negative 03/12/2017 9:35 AM REGIONAL EXTENSION SERVICE SPECIALIST [facility] [employer] [facility] Comment: Culture set up on negative strep screen. ?? Upper respiratory specimen (specimen) SPECIMEN FROM THROAT / Unknown Collection / Unknown 03/12/2017 6:05 AM REGIONAL EXTENSION SERVICE SPECIALIST 03/12/2017 7:22 AM REGIONAL EXTENSION SERVICE SPECIALIST Carson Elias MD MICROBIOLOGY - GENER AL ORDERABLES Performing Organization Address City/[facility] Co de Phone Number [facility] CLIA# [id number] [address] [place] [address] * (ABNORMAL) CBC WITH DIFFERENTIAL (03/11/2017 11:06 AM REGIONAL EXTENSION SERVICE SPECIALIST) Pathologist [facility] WBC 6.3 4.0 - 9.8 K/uL 03/11/2017 11:25 AM REGIONAL EXTENSION SERVICE SPECIALIST [facility] LABORATORY [facility] RBC 4.15 3.90 - 4.90 M/uL 03/11/2017 11:25 AM [facility] LABORATORY [facility] HEMOGLOBIN 12.4 11.8 - 14.8 g/dL 03/11/2017 11:25 AM [facility] LABORATORY [facility] HEMATOCRIT 36.9 35.5 - 44.0 % 03/11/2017 11:25 AM [facility] LABORATORY [facility] MCV 88.9 82.0 - 99.0 fL 03/11/2017 11:25 AM [employer] LABORATORY SERVICES - [facility] MCH 29.9 27.2 - 32.6 pg 03/11/2017 11:25 AM REGIONAL EXTENSION SERVICE SPECIALIST [employer] LABORATORY SERVICES - [facility] MCHC 33.6 31.5 - 35.5 g/dL 03/11/2017 11:25 AM REGIONAL EXTENSION SERVICE SPECIALIST [employer] LABORATORY SERVICES - [facility] RDW 12.7 11.5 - 14.5 % 03/11/2017 11:25 AM REGIONAL EXTENSION SERVICE SPECIALIST [employer] LABORATORY SERVICES - [facility] RDW-STDEV 41.9 37.1 - 48.7 fL 03/11/2017 11:25 AM REGIONAL EXTENSION SERVICE SPECIALIST [employer] LABORATORY SERVICES - [facility] PLATELETS 472(H) 140 - 350 K/uL 03/11/2017 11:25 AM REGIONAL EXTENSION SERVICE SPECIALIST [employer] LABORATORY SERVICES - [facility] MPV 9.8 9.3 - 12.4 fL 03/11/2017 11:25 AM [employer] LABORATORY SERVICES - [facility] NEUTROPHILS 67 % 03/11/2017 11:25 AM [employer] LABORATORY SERVICES - [facility] LYMPHOCYTES 25 % 03/11/2017 11:25 AM [employer] LABORATORY SERVICES - [facility] MONOCYTES 8 % 03/11/2017 11:25 AM REGIONAL EXTENSION SERVICE SPECIALIST [employer] LABORATORY SERVICES - [facility] EOSINOPHILS 1 % 03/11/2017 11:25 AM [employer] LABORATORY SERVICES - [facility] BASOPHILS 0 % 03/11/2017 11:25 AM [employer] LABORATORY SERVICES - [facility] IMMATURE GRANULOCYTES 0 % 03/11/2017 11:25 AM [employer] LABORATORY SERVICES - [facility] NEUTROPHIL ABSOLUTE 4.21 1.90 - 7.00 K/uL 03/11/2017 11:25 AM [employer] LABORATORY SERVICES - [facility] LYMPHOCYTE ABSOLUTE 1.55 0.70 - 4.50 K/uL 03/11/2017 11:25 AM REGIONAL EXTENSION SERVICE SPECIALIST [employer] LABORATORY SERVICES - [facility] MONOCYTE ABSOLUTE 0.50 0.10 - 1.30 K/uL 03/11/2017 11:25 AM REGIONAL EXTENSION SERVICE SPECIALIST [employer] LABORATORY SERVICES - [facility] EOSINOPHIL ABSOLUTE 0.03 0.00 - 0.70 K/uL 03/11/2017 11:25 AM REGIONAL EXTENSION SERVICE SPECIALIST [employer] LABORATORY SERVICES - [facility] BASOPHILS ABSOLUTE 0.02 0.00 - 0.20 K/uL 03/11/2017 11:25 AM REGIONAL EXTENSION SERVICE SPECIALIST [employer] LABORATORY SERVICES - [facility] IMMATURE GRANULOCYTES ABSOLUTE 0.02 0.00 - 0.03 K/uL 03/11/2017 11:25 AM [facility] [employer] LABORATORY SERVICES - [facility] Blood Venipuncture / Unknown 03/11/2017 11:06 AM REGIONAL EXTENSION SERVICE SPECIALIST 03/11/2017 11:06 AM REGIONAL EXTENSION SERVICE SPECIALIST Carson Elias MD HEMATOLOGY ORDERABLE S [facility] [employer] SERVICES [facility] CLIA# [id number] [address] [facility] [address] [address] * (ABNORMAL) BASIC METABOLIC PANEL (03/11/2017 11:05 AM REGIONAL EXTENSION SERVICE SPECIALIST) SODIUM 133(L) 136 - 145 mmol/L 03/11/2017 11:46 AM [facility] [employer] LABORATORY SERVICES - . [place] POTASSIUM 4.1 3.5 - 5.0 mmol/L 03/11/2017 11:46 AM [facility] [employer] SERVICES - . [place] CHLORIDE 95(L) 98 - 107 mmol/L 03/11/2017 11:46 AM [facility] [employer] SERVICES - [facility] CO2 25 22 - 29 mmol/L 03/11/2017 11:46 AM [facility] [employer] LABORATORY SERVICES - [facility] CALCIUM 9.4 8.6 - 10.2 mg/dL 03/11/2017 11:46 AM [facility] [employer] SERVICES - [facility] BUN 7(L) 8 - 23 mg/dL 03/11/2017 11:46 AM [facility] [employer] SERVICES - . [place] CREATININE 0.59 0.51 - 0.95 mg/dL 03/11/2017 11:46 AM [facility] [employer] SERVICES - [facility] GLUCOSE 111(H) 74 - 99 mg/dL 03/11/2017 11:46 AM [employer] LABORATORY SERVICES - [facility] GFR >60 >=60 mL/min/1.7 3 sq meter 03/11/2017 11:46 AM [employer] SERVICES - [facility] Comment: eGFR has [...] mL/min/1.7 3 sq meter 03/11/2017 11:46 AM [facility] [employer] LABORATORY [facility] ANION GAP 13 8 - 16 mmol/L 03/11/2017 11:46 AM [facility] [employer] [facility] Blood Venipuncture / Unknown 03/11/2017 11:05 AM REGIONAL EXTENSION SERVICE SPECIALIST 03/11/2017 11:06 AM REGIONAL EXTENSION SERVICE SPECIALIST Carson Elias MD CHEMISTRY ORDERABLES [employer] [facility] CLIA# [id number] [address] [facility] [place] [address] * (ABNORMAL) CBC WITH DIFFERENTIAL (03/09/2017 7:30 AM REGIONAL EXTENSION SERVICE SPECIALIST) WBC 7.6 4.0 - 9.8 K/uL 03/09/2017 10:21 AM [facility] [employer] [facility] RBC 4.43 3.90 - 4.90 M/uL 03/09/2017 10:21 AM [facility] [employer] [facility] HEMOGLOBIN 13.3 11.8 - 14.8 g/dL 03/09/2017 10:21 AM [facility] [employer] [facility] HEMATOCRIT 39.1 35.5 - 44.0 % 03/09/2017 10:21 AM REGIONAL EXTENSION SERVICE SPECIALIST [employer] [facility] MCV 88.3 82.0 - 99.0 fL 03/09/2017 10:21 AM [facility] [employer] - [facility] MCH 30.0 27.2 - 32.6 pg 03/09/2017 10:21 AM [facility] [employer] [facility] MCHC 34.0 31.5 - 35.5 g/dL 03/09/2017 10:21 AM REGIONAL EXTENSION SERVICE SPECIALIST [employer] [facility] RDW 12.6 11.5 - 14.5 % 03/09/2017 10:21 AM [employer] - . [facility] RDW-STDEV 41.2 37.1 - 48.7 fL 03/09/2017 10:21 AM [facility] [employer] [facility] - . [place] PLATELETS 547(H) 140 - 350 K/uL 03/09/2017 10:21 AM [facility] [employer] [facility] - . [place] MPV 9.8 9.3 - 12.4 fL 03/09/2017 10:21 AM [facility] [employer] [facility] NEUTROPHILS 69 % 03/09/2017 10:21 AM [facility] [employer] [facility] - [facility] LYMPHOCYTES 21 % 03/09/2017 10:21 AM [facility] [employer] [facility] MONOCYTES 8 % 03/09/2017 10:21 AM [facility] [employer] - [facility] EOSINOPHILS 1 % 03/09/2017 10:21 AM [facility] [employer] [facility] BASOPHILS 0 % 03/09/2017 10:21 AM [facility] [employer] [facility] - . [place] IMMATURE GRANULOCYTES 1 % 03/09/2017 10:21 AM [facility] [employer] [facility] [place] Comment:IG (Immature Granulo cyte) count includes Metamyelocytes, Myelocytes, and Promyelocytes NEUTROPHIL ABSOLUTE 5.25 1.90 - 7.00 K/uL 03/09/2017 10:21 AM [facility] [employer] [facility] [place] LYMPHOCYTE ABSOLUTE 1.62 0.70 - 4.50 K/uL 03/09/2017 10:21 AM [facility] [employer] [facility] [place] MONOCYTE ABSOLUTE 0.59 0.10 - 1.30 K/uL 03/09/2017 10:21 AM [facility] [employer] [facility] [place] EOSINOPHIL ABSOLUTE 0.04 0.00 - 0.70 K/uL 03/09/2017 10:21 AM [facility] [employer] [facility] BASOPHILS ABSOLUTE 0.02 0.00 - 0.20 K/uL 03/09/2017 10:21 AM [facility] [employer] [facility] [place] IMMATURE GRANULOCYTES ABSOLUTE 0.05(H) 0.00 - 0.03 K/uL 03/09/2017 10:21 AM [facility] [employer] [facility] [place] Blood Venipuncture / Unknown 03/09/2017 7:30 AM REGIONAL EXTENSION SERVICE SPECIALIST 03/09/2017 9:53 AM REGIONAL EXTENSION SERVICE SPECIALIST Carson Elias MD HEMATOLOGY ORDERABLE S [employer] LABORATORY SERVICES - [facility]# [id number] [address] [place] [address] * (ABNORMAL) BASIC METABOLIC PANEL (03/09/2017 7:30 AM REGIONAL EXTENSION SERVICE SPECIALIST) SODIUM 131(L) 136 - 145 mmol/L 03/09/2017 10:52 AM [facility] [employer] LABORATORY SERVICES - . [place] POTASSIUM 4.7 3.5 - 5.0 mmol/L 03/09/2017 10:52 AM [facility] [employer] LABORATORY SERVICES - . [place] CHLORIDE 92(L) 98 - 107 mmol/L 03/09/2017 10:52 AM [facility] [employer] SERVICES - . [place] CO2 24 22 - 29 mmol/L 03/09/2017 10:52 AM [facility] [employer] SERVICES - . [place] CALCIUM 9.6 8.6 - 10.2 mg/dL 03/09/2017 10:52 AM [facility] [employer] [facility] - . [place] BUN 9 8 - 23 mg/dL 03/09/2017 10:52 AM [facility] [employer] [facility] - . [facility] CREATININE 0.59 0.51 - 0.95 mg/dL 03/09/2017 10:52 AM [facility] [employer] [facility] - . [facility] GLUCOSE 101(H) 74 - 99 mg/dL 03/09/2017 10:52 AM [facility] [employer] SERVICES - [facility] GFR >60 >=60 mL/min/1.7 3 sq meter 03/09/2017 10:52 AM [facility] [employer] LABORATORY SERVICES - [facility] Comment: eGFR has not been validated for [...] mL/min/1.7 3 sq meter 03/09/2017 10:52 AM [facility] [employer] [facility] ANION GAP 15 8 - 16 mmol/L 03/09/2017 10:52 AM [facility] [employer] [facility] Blood Venipuncture / Unknown 03/09/2017 7:30 AM [facility] 03/09/2017 9:53 AM [facility] Carson Elias MD CHEMISTRY ORDERABLES Performing Organization Address [facility] Phone Number [facility]# [id number] [address] [place] [address] * CORTISOL LEVEL (03/08/2017 7:06 AM [facility]IST) CORTISOL LEVEL 18.1 ug/dL 03/08/2017 10:49 AM [facility] [employer] [facility] Comment: Cortisol Reference Range Morning Hours ?? 6-10 a.m. ? 6.0-18.4 ug/dL Afternoon Hours ??4-8 p.m. ? 2.7-10.5 ug/dL Blood Venipuncture / Unknown 03/08/2017 7:06 AM [facility]IST 03/08/2017 9:45 AM [facility] Carson Elias MD CHEMISTRY ORDERABLES Performing Organization Address [facility] Phone Number [facility] [employer] [facility]# [id number] [address] [place] [address] * (ABNORMAL) CBC WITH DIFFERENTIAL (03/08/2017 7:06 AM [facility]) WBC 7.2 4.0 - 9.8 K/uL 03/08/2017 10:01 AM [facility] [employer] [facility] RBC 4.14 3.90 - 4.90 M/uL 03/08/2017 10:01 AM [facility] [employer] [facility] HEMOGLOBIN 12.4 11.8 - 14.8 g/dL 03/08/2017 10:01 AM [facility] [employer] [facility] HEMATOCRIT 36.2 35.5 - 44.0 % 03/08/2017 10:01 AM [employer] LABORATORY SERVICES - [facility] MCV 87.4 82.0 - 99.0 fL 03/08/2017 10:01 AM [employer] [facility]ORATORY SERVICES - [facility] [place] MCH 30.0 27.2 - 32.6 pg 03/08/2017 10:01 AM [employer] LABORATORY SERVICES - [facility] [place] MCHC 34.3 31.5 - 35.5 g/dL 03/08/2017 10:01 AM [employer] LABORATORY SERVICES - ST. [place] RDW 12.4 11.5 - 14.5 % 03/08/2017 10:01 AM [employer] [facility] - [facility] RDW-STDEV 39.7 37.1 - 48.7 fL 03/08/2017 10:01 AM [employer] [facility] PLATELETS 479(H) 140 - 350 K/uL 03/08/2017 10:01 AM [employer] [facility] MPV 9.8 9.3 - 12.4 fL 03/08/2017 10:01 AM [employer] [facility] NEUTROPHILS 69 % 03/08/2017 10:01 AM [employer] [facility] - [facility] LYMPHOCYTES 22 % 03/08/2017 10:01 AM [employer] [facility] MONOCYTES 8 % 03/08/2017 10:01 AM [employer] [facility] EOSINOPHILS 1 % 03/08/2017 10:01 AM [employer] [facility] BASOPHILS 0 % 03/08/2017 10:01 AM [employer] [facility] IMMATURE GRANULOCYTES 0 % 03/08/2017 10:01 AM [employer] [facility] - [facility] NEUTROPHIL ABSOLUTE 4.99 1.90 - 7.00 K/uL 03/08/2017 10:01 AM [employer] [facility] - [facility] LYMPHOCYTE ABSOLUTE 1.56 0.70 - 4.50 K/uL 03/08/2017 10:01 AM [employer] [facility] - [facility] MONOCYTE ABSOLUTE 0.61 0.10 - 1.30 K/uL 03/08/2017 10:01 AM [employer] [facility] - [facility] EOSINOPHIL ABSOLUTE 0.04 0.00 - 0.70 K/uL 03/08/2017 10:01 AM [employer] [facility] - [facility] BASOPHILS ABSOLUTE 0.01 0.00 - 0.20 K/uL 03/08/2017 10:01 AM [facility] LABORATORY SERVICES - . [facility] IMMATURE GRANULOCYTES ABSOLUTE 0.02 0.00 - 0.03 K/uL 03/08/2017 10:01 AM [facility] LABORATORY SERVICES - [facility] Blood Venipuncture / Unknown 03/08/2017 7:06 AM [facility] [employer] SERVICE SPECIALIST 03/08/2017 9:45 AM REGION[facility] EXTENSION SERVICE SPECIALIST Carson Elias MD HEMATOLOGY ORDERABLE S Performing Organization Address [facility]/ZIP Co de Phone Number [facility] CLIA# [id number] [address] [place] [address] * (ABNORMAL) OSMOLALITY (03/08/2017 7:06 AM REGIONAL EXTENSION SERVICE SPECIALIST) OSMOLALITY 268(L) 275 - 300 mOsm/kg 03/08/2017 10:56 AM [facility] [employer] LABORATORY [facility] Blood Venipuncture / Unknown 03/08/2017 7:06 AM REGIONAL EXTENSION SERVICE SPECIALIST 03/08/2017 9:45 AM REGIONAL EXTENSION SERVICE SPECIALIST Carson Elias MD CHEMISTRY ORDERABLES Performing Organization Address [facility] Co de Phone Number [facility] [employer] [facility] CLIA# [id number] [address] [place] [address] * (ABNORMAL) BASIC METABOLIC PANEL (03/08/2017 7:06 AM REGIONAL EXTENSION SERVICE SPECIALIST) SODIUM 131(L) 136 - 145 mmol/L 03/08/2017 10:45 AM [facility] [employer] LABORATORY SERVICES - . [place] POTASSIUM 3.9 3.5 - 5.0 mmol/L 03/08/2017 10:45 AM [facility] [employer] LABORATORY SERVICES - [facility] CHLORIDE 91(L) 98 - 107 mmol/L 03/08/2017 10:45 AM [facility] [employer] LABORATORY SERVICES - . [place] CO2 26 22 - 29 mmol/L 03/08/2017 10:45 AM [facility] LABORATORY SERVICES - . [place] CALCIUM 9.0 8.6 - 10.2 mg/dL 03/08/2017 10:45 AM [facility] [employer] [facility] BUN 8 8 - 23 mg/dL 03/08/2017 10:45 AM [facility] [employer] [facility] CREATININE 0.65 0.51 - 0.95 mg/dL 03/08/2017 10:45 AM [facility] [employer] [facility] GLUCOSE 85 74 - 99 mg/dL 03/08/2017 10:45 AM [facility] LABORATORY [facility] GFR >60 >=60 mL/min/1.7 3 sq meter 03/08/2017 10:45 AM [facility] [employer] [facility] Comment: eGFR has not been [...] mL/min/1.7 3 sq meter 03/08/2017 10:45 AM [facility] [employer] [facility] ANION GAP 14 8 - 16 mmol/L 03/08/2017 10:45 AM [facility] [employer] [facility] Blood Venipuncture / Unknown 03/08/2017 7:06 AM REGIONAL EXTENSION SERVICE SPECIALIST 03/08/2017 9:45 AM REGIONAL EXTENSION SERVICE SPECIALIST Yasmin Vieyra DO CHEMISTRY ORDERABLES [facility] [employer] [facility]# [id number] [address] [place] [address] * (ABNORMAL) URINE CULTURE (03/07/2017 1:59 PM REGIONAL EXTENSION SERVICE SPECIALIST) CULTURE 03/09/2017 5:40 AM [facility] [employer] [facility] CULTURE 10,000-50,00 0 cfu/mL Gram Negative Rods(A) MELANIE MCG/ML 03/09/2017 5:40 AM [facility] Comment:No further workup in dicated. CULTURE 10,000-50,00 0 cfu/mL Gram Negative Rods(A) 03/09/2017 5:40 AM [facility] Comment:No further workup in dicated. Urine URINE SPECIMEN OBTAINED BY CLEAN CATCH PROCEDURE / Unknown Collection / Unknown 03/07/2017 1:59 PM REGIONAL EXTENSION SERVICE SPECIALIST 03/07/2017 5:38 PM REGIONAL EXTENSION SERVICE SPECIALIST Carson Elias MD MICROBIOLOGY - [facility] AL ORDERABLES [facility] CLIA# [id number] [address] [place] [address] * SODIUM, RANDOM URINE (03/07/2017 1:59 PM REGIONAL EXTENSION SERVICE SPECIALIST) SODIUM, URINE 35 mmol/L 03/07/2017 6:12 PM [facility] EXTENSION SERVICE SPECIALIST [facility] Urine URINE SPECIMEN OBTAINED BY CLEAN CATCH PROCEDURE / Unknown Collection / Unknown 03/07/2017 1:59 PM REGIONAL EXTENSION SERVICE SPECIALIST 03/07/2017 3:43 PM REGIONAL EXTENSION SERVICE SPECIALIST Carson Elias MD URINE ORDERABLES Performing Organization Address [facility] Co de Phone Number [facility] CLFL# [id number] [address] [place] [address] * OSMOLALITY, URINE (03/07/2017 1:59 PM REGIONAL EXTENSION SERVICE SPECIALIST) OSMOLALITY, URINE 416 50 - 1,200 mOsm/kg 03/07/2017 5:58 PM [facility] EXTENSION SERVICE SPECIALIST [facility] Urine URINE SPECIMEN OBTAINED BY CLEAN CATCH PROCEDURE / Unknown Collection / Unknown 03/07/2017 1:59 PM REGIONAL EXTENSION SERVICE SPECIALIST 03/07/2017 3:43 PM REGIONAL EXTENSION SERVICE SPECIALIST Carson Elias MD URINE ORDERABLES Performing Organization Address City/[facility]/ZIP Co de Phone Number [facility] CLIA# [id number] [address] [facility] [place] [place] [address] * (ABNORMAL) URINALYSIS WITH REFLEX CULTURE (03/07/2017 1:59 PM REGIONAL EXTENSION SERVICE SPECIALIST) COLOR UA Yellow Pale to Dark Yellow 03/07/2017 5:38 PM [facility] [employer] LABORATORY SERVICES - [facility] CLARITY UA Slightly Cloudy(A) Clear 03/07/2017 5:38 PM REGIONAL EXTENSION SERVICE SPECIALIST [employer] LABORATORY SERVICES - [facility] SPECIFIC GRAVITY UA 1.015 1.003 - 1.035 03/07/2017 5:38 PM REGIONAL EXTENSION SERVICE SPECIALIST [employer] LABORATORY SERVICES - [facility] PH UA 5.0 5.0 - 8.0 03/07/2017 5:38 PM REGIONAL EXTENSION SERVICE SPECIALIST [employer] LABORATORY SERVICES - [facility] LEUKOCYTE ESTERASE UA Trace(A) Negative 03/07/2017 5:38 PM [facility] [employer] LABORATORY SERVICES - [facility] Comment: For patients with 'trace' results, consider ordering a culture and sensitivity if clinically indicated. NITRITE UA Negative Negative 03/07/2017 5:38 PM REGIONAL EXTENSION SERVICE SPECIALIST [employer] LABORATORY SERVICES - [facility] PROTEIN UA 1+(A) Negative 03/07/2017 5:38 PM REGIONAL EXTENSION SERVICE SPECIALIST [employer] LABORATORY SERVICES - [facility] GLUCOSE UA Negative Negative 03/07/2017 5:38 PM REGIONAL EXTENSION SERVICE SPECIALIST [employer] LABORATORY SERVICES - [facility] KETONES UA Trace(A) Negative 03/07/2017 5:38 PM [facility] [employer] LABORATORY SERVICES - [facility] UROBILINOGEN UA Normal <2.0 mg/dL 7 5:38 PM REGIONAL EXTENSION SERVICE SPECIALIST [employer] LABORATORY SERVICES - [facility] BILIRUBIN UA Negative Negative 03/07/2017 5:38 PM REGIONAL EXTENSION SERVICE SPECIALIST [employer] LABORATORY SERVICES - [facility] BLOOD UA Negative Negative 03/07/2017 5:38 PM REGIONAL EXTENSION SERVICE SPECIALIST [employer] LABORATORY SERVICES - [facility] WBC UA 11-25(A) 0 - 2 /hpf 03/07/2017 5:38 PM REGIONAL EXTENSION SERVICE SPECIALIST [employer] LABORATORY SERVICES - . [facility] RBC UA 0-2 0 - 2 /hpf 03/07/2017 5:38 PM REGIONAL EXTENSION SERVICE SPECIALIST [employer] LABORATORY SERVICES - [facility] BACTERIA UA 1+(A) Negative /hpf 03/07/2017 5:38 PM REGIONAL EXTENSION SERVICE SPECIALIST [employer] LABORATORY SERVICES - [facility] EPITHELIAL CELLS, URINE 11-25(A) 0 - 5 /hpf 03/07/2017 5:38 PM REGIONAL EXTENSION SERVICE SPECIALIST [employer] LABORATORY SERVICES - [facility] HYALINE CAST 6-10(A) None Seen, 0-2 /lpf 03/07/2017 5:38 PM REGIONAL EXTENSION SERVICE SPECIALIST [facility] Urine URINE SPECIMEN OBTAINED BY CLEAN CATCH PROCEDURE / Unknown Collection / Unknown 03/07/2017 1:59 PM REGIONAL EXTENSION SERVICE SPECIALIST 03/07/2017 3:43 PM REGIONAL EXTENSION SERVICE SPECIALIST Narrative [facility] LABORATORY [facility] - 03/07/2017 5:38 PM REGIONAL EXTENSION SERVICE SPECIALIST Based on results, a urine culture has been reflexed. Carson Elias MD URINE ORDERABLES [facility] CLIA# [id number] [address] [place] [address] * (ABNORMAL) OSMOLALITY (03/07/2017 7:40 AM REGIONAL EXTENSION SERVICE SPECIALIST) OSMOLALITY 270(L) 275 - 300 mOsm/kg 03/07/2017 10:27 AM [facility] Blood Venipuncture / Unknown 03/07/2017 7:40 AM REGIONAL EXTENSION SERVICE SPECIALIST 03/07/2017 8:57 AM REGIONAL EXTENSION SERVICE SPECIALIST Carson Elias MD CHEMISTRY ORDERABLES Performing Organization Address City/[facility]/ZIP Co de Phone Number [facility] CLIA# [id number] [address] [place] [address] * (ABNORMAL) CBC WITH DIFFERENTIAL (03/07/2017 7:40 AM REGIONAL EXTENSION SERVICE SPECIALIST) WBC 7.5 4.0 - 9.8 K/uL 03/07/2017 9:09 AM [facility] [employer] [facility] RBC 4.71 3.90 - 4.90 M/uL 03/07/2017 9:09 AM [facility] [employer] [facility] HEMOGLOBIN 14.0 11.8 - 14.8 g/dL 03/07/2017 9:09 AM [facility] [employer] [facility] HEMATOCRIT 41.2 35.5 - 44.0 % 03/07/2017 9:09 AM REGIONAL EXTENSION SERVICE SPECIALIST [facility] MCV 87.5 82.0 - 99.0 fL 03/07/2017 9:09 AM REGIONAL EXTENSION SERVICE SPECIALIST [employer] LABORATORY SERVICES - [facility] [place] MCH 29.7 27.2 - 32.6 pg 03/07/2017 9:09 AM [employer] LABORATORY SERVICES - [facility] [place] MCHC 34.0 31.5 - 35.5 g/dL 03/07/2017 9:09 AM [employer] LABORATORY SERVICES - [facility] [place] RDW 12.4 11.5 - 14.5 % 03/07/2017 9:09 AM [employer] LABORATORY SERVICES - [facility] [place] RDW-STDEV 39.7 37.1 - 48.7 fL 03/07/2017 9:09 AM REGIONAL EXTENSION SERVICE SPECIALIST [employer] LABORATORY SERVICES - [facility] [place] PLATELETS 597(H) 140 - 350 K/uL 03/07/2017 9:09 AM [employer] LABORATORY SERVICES - [facility] [place] MPV 9.5 9.3 - 12.4 fL 03/07/2017 9:09 AM [employer] LABORATORY SERVICES - [facility] [place] NEUTROPHILS 66 % 03/07/2017 9:09 AM [employer] LABORATORY SERVICES - [facility] [place] LYMPHOCYTES 26 % 03/07/2017 9:09 AM [employer] LABORATORY SERVICES - [facility] [place] MONOCYTES 7 % 03/07/2017 9:09 AM [employer] LABORATORY SERVICES - [facility] [place] EOSINOPHILS 1 % 03/07/2017 9:09 AM [employer] LABORATORY SERVICES - [facility] [place] BASOPHILS 0 % 03/07/2017 9:09 AM [employer] LABORATORY SERVICES - [facility] [place] IMMATURE GRANULOCYTES 0 % 03/07/2017 9:09 AM [employer] LABORATORY SERVICES - [facility] [place] NEUTROPHIL ABSOLUTE 4.95 1.90 - 7.00 K/uL 03/07/2017 9:09 AM REGIONAL EXTENSION SERVICE SPECIALIST [employer] LABORATORY SERVICES - [facility] [place] LYMPHOCYTE ABSOLUTE 1.92 0.70 - 4.50 K/uL 03/07/2017 9:09 AM REGIONAL EXTENSION SERVICE SPECIALIST [employer] LABORATORY SERVICES - [facility] [place] MONOCYTE ABSOLUTE 0.55 0.10 - 1.30 K/uL 03/07/2017 9:09 AM [employer] LABORATORY SERVICES - [facility] [place] EOSINOPHIL ABSOLUTE 0.08 0.00 - 0.70 K/uL 03/07/2017 9:09 AM REGIONAL EXTENSION SERVICE SPECIALIST [employer] LABORATORY SERVICES - [facility] [place] BASOPHILS ABSOLUTE 0.02 0.00 - 0.20 K/uL 03/07/2017 9:09 AM [facility] [employer] SERVICES - . [facility] IMMATURE GRANULOCYTES ABSOLUTE 0.02 0.00 - 0.03 K/uL 03/07/2017 9:09 AM [facility] [employer] - [facility] [place] Blood Venipuncture / Unknown 03/07/2017 7:40 AM REGIONAL EXTENSION SERVICE SPECIALIST 03/07/2017 8:57 AM REGIONAL EXTENSION SERVICE SPECIALIST Carson Elias MD HEMATOLOGY ORDERABLE S [employer] [facility] CLIA# [id number] [address] [address] * (ABNORMAL) BASIC METABOLIC PANEL (03/07/2017 7:40 AM REGIONAL EXTENSION SERVICE SPECIALIST) SODIUM 130(L) 136 - 145 mmol/L 03/07/2017 9:37 AM [facility] [employer] [facility] POTASSIUM 4.0 3.5 - 5.0 mmol/L 03/07/2017 9:37 AM [facility] [employer] [facility] CHLORIDE 89(L) 98 - 107 mmol/L 03/07/2017 9:37 AM [facility] [employer] [facility] CO2 25 22 - 29 mmol/L 03/07/2017 9:37 AM [facility] [employer] [facility] CALCIUM 9.2 8.6 - 10.2 mg/dL 03/07/2017 9:37 AM [facility] [employer] [facility] BUN 10 8 - 23 mg/dL 03/07/2017 9:37 AM [facility] [employer] [facility] CREATININE 0.66 0.51 - 0.95 mg/dL 03/07/2017 9:37 AM [employer] [facility] GLUCOSE 87 74 - 99 mg/dL 03/07/2017 9:37 AM [facility] [employer] [facility] GFR >60 >=60 mL/min/1.7 3 sq meter 03/07/2017 9:37 AM [employer] [facility] Comment: eGFR has not [...] mL/min/1.7 3 sq meter 03/07/2017 9:37 AM REGIONAL EXTENSION SERVICE SPECIALIST [facility] LABORATORY SERVICES [facility] ANION GAP 16 8 - 16 mmol/L 03/07/2017 9:37 AM REGIONAL EXTENSION SERVICE SPECIALIST [facility] LABORATORY [facility] Blood Venipuncture / Unknown 03/07/2017 7:40 AM REGIONAL EXTENSION SERVICE SPECIALIST 03/07/2017 8:57 AM REGIONAL EXTENSION SERVICE SPECIALIST Yasmin Vieyra DO CHEMISTRY ORDERABLES [facility] LABORATORY [facility]# [id number] [address] [place] [address] * RT ASSESS AND TREAT (03/06/2017 1:06 PM REGIONAL EXTENSION SERVICE SPECIALIST) Narrative Aracely Longoria RCP - 03/06/2017 1:06 PM REGIONAL EXTENSION SERVICE SPECIALIST Aracely Longoria RCP ? 03/06/2017 ??1:07 PM [...] 03/06/2017 06:05 AM Thank you, Aracely Longoria, ROCKET MOTOR MECHANIC, PSYCHIATRIC ATTENDANT Lead Respiratory Therapist [facility] [place] [phone] Minutes were spent in the care of this patient today; this may have included EMR review, family/patient education or conferences, and discussions with any consultants. Yasmin Vieyra DO RESPIRATORY CARE ORD ERABLES * (ABNORMAL) CBC WITH DIFFERENTIAL (03/06/2017 6:05 AM REGIONAL EXTENSION SERVICE SPECIALIST) WBC 8.4 4.0 - 9.8 K/uL 03/06/2017 8:20 AM [employer] LABORATORY SERVICES - [facility] RBC 4.83 3.90 - 4.90 M/uL 03/06/2017 8:20 AM [facility] [employer] LABORATORY SERVICES - [facility] HEMOGLOBIN 14.3 11.8 - 14.8 g/dL 03/06/2017 8:20 AM REGIONAL EXTENSION SERVICE SPECIALIST [employer] LABORATORY SERVICES - [facility] HEMATOCRIT 42.7 35.5 - 44.0 % 03/06/2017 8:20 AM REGIONAL EXTENSION SERVICE SPECIALIST [employer] LABORATORY SERVICES - [facility] MCV 88.4 82.0 - 99.0 fL 03/06/2017 8:20 AM REGIONAL EXTENSION SERVICE SPECIALIST [employer] LABORATORY SERVICES - [facility] [place] MCH 29.6 27.2 - 32.6 pg 03/06/2017 8:20 AM REGIONAL EXTENSION SERVICE SPECIALIST [employer] LABORATORY SERVICES - [facility] [place] MCHC 33.5 31.5 - 35.5 g/dL 03/06/2017 8:20 AM REGIONAL EXTENSION SERVICE SPECIALIST [employer] LABORATORY SERVICES - [facility] [place] RDW 12.1 11.5 - 14.5 % 03/06/2017 8:20 AM [employer] LABORATORY SERVICES - [facility] [place] RDW-STDEV 39.5 37.1 - 48.7 fL 03/06/2017 8:20 AM [employer] LABORATORY SERVICES - [facility] [place] PLATELETS 575(H) 140 - 350 K/uL 03/06/2017 8:20 AM REGIONAL EXTENSION SERVICE SPECIALIST [employer] LABORATORY SERVICES - [facility] [place] MPV 9.6 9.3 - 12.4 fL 03/06/2017 8:20 AM [employer] LABORATORY SERVICES - [facility] NEUTROPHILS 59 % 03/06/2017 8:20 AM [employer] LABORATORY SERVICES - [facility] LYMPHOCYTES 32 % 03/06/2017 8:20 AM [employer] LABORATORY SERVICES - [facility] MONOCYTES 6 % 03/06/2017 8:20 AM [employer] LABORATORY SERVICES - [facility] EOSINOPHILS 2 % 03/06/2017 8:20 AM [facility] [employer] LABORATORY SERVICES - [facility] [place] BASOPHILS 0 % 03/06/2017 8:20 AM [facility] [employer] LABORATORY SERVICES - [facility] [place] IMMATURE GRANULOCYTES 0 % 03/06/2017 8:20 AM [facility] [employer] LABORATORY SERVICES - [facility] NEUTROPHIL ABSOLUTE 4.95 1.90 - 7.00 K/uL 03/06/2017 8:20 AM [facility] [employer] LABORATORY SERVICES - [facility] LYMPHOCYTE ABSOLUTE 2.71 0.70 - 4.50 K/uL 03/06/2017 8:20 AM [facility] [employer] LABORATORY SERVICES - [facility] MONOCYTE ABSOLUTE 0.53 0.10 - 1.30 K/uL 03/06/2017 8:20 AM [facility] [employer] LABORATORY SERVICES - [facility] EOSINOPHIL ABSOLUTE 0.13 0.00 - 0.70 K/uL 03/06/2017 8:20 AM [facility] [employer] LABORATORY SERVICES - [facility] BASOPHILS ABSOLUTE 0.02 0.00 - 0.20 K/uL 03/06/2017 8:20 AM [facility] [employer] LABORATORY SERVICES - [facility] IMMATURE GRANULOCYTES ABSOLUTE 0.03 0.00 - 0.03 K/uL 03/06/2017 8:20 AM [facility] [employer] SERVICES - [facility] Blood Venipuncture / Unknown 03/06/2017 6:05 AM REGIONAL EXTENSION SERVICE SPECIALIST 03/06/2017 7:50 AM REGIONAL EXTENSION SERVICE SPECIALIST Carson Elias MD HEMATOLOGY ORDERABLE S [employer] SERVICES [facility]# [id number] [address] [facility] [place] [address] * (ABNORMAL) BASIC METABOLIC PANEL (03/06/2017 6:05 AM REGIONAL EXTENSION SERVICE SPECIALIST) SODIUM 131(L) 136 - 145 mmol/L 03/06/2017 8:55 AM [facility] [employer] SERVICES - [facility] POTASSIUM 3.5 3.5 - 5.0 mmol/L 03/06/2017 8:55 AM [facility] [employer] SERVICES - [facility] CHLORIDE 89(L) 98 - 107 mmol/L 03/06/2017 8:55 AM [facility] [employer] - [facility] CO2 26 22 - 29 mmol/L 03/06/2017 8:55 AM [facility] LABORATORY [facility] CALCIUM 9.4 8.6 - 10.2 mg/dL 03/06/2017 8:55 AM [facility] BUN 10 8 - 23 mg/dL 03/06/2017 8:55 AM [facility] CREATININE 0.69 0.51 - 0.95 mg/dL 03/06/2017 8:55 AM [facility] [employer] [facility] GLUCOSE 93 74 - 99 mg/dL 03/06/2017 8:55 AM [facility] [employer] [facility] GFR >60 >=60 mL/min/1.7 3 sq meter 03/06/2017 8:55 AM [facility] [employer] [facility] Comment: eGFR has not been [...] mL/min/1.7 3 sq meter 03/06/2017 8:55 AM [facility] LABORATORY [facility] ANION GAP 16 8 - 16 mmol/L 03/06/2017 8:55 AM [facility] [employer] [facility] Blood Venipuncture / Unknown 03/06/2017 6:05 AM REGIONAL EXTENSION SERVICE SPECIALIST 03/06/2017 7:48 AM REGIONAL EXTENSION SERVICE SPECIALIST Carson Elias MD CHEMISTRY ORDERABLES [facility] [employer] [facility]# [id number] [address] [address] * (ABNORMAL) COMPREHENSIVE METABOLIC PANEL (03/04/2017 6:00 AM CDT) SODIUM 132(L) 136 - 145 mmol/L 03/04/2017 9:02 AM [employer] SERVICES - [facility] POTASSIUM 3.6 3.5 - 5.0 mmol/L 03/04/2017 9:02 AM [employer] SERVICES - [facility] CHLORIDE 91(L) 98 - 107 mmol/L 03/04/2017 9:02 AM [employer] SERVICES - [facility] CO2 27 22 - 29 mmol/L 03/04/2017 9:02 AM [employer] SERVICES - [facility] CALCIUM 9.2 8.6 - 10.2 mg/dL 03/04/2017 9:02 AM [employer] SERVICES - [facility] BUN 8 8 - 23 mg/dL 03/04/2017 9:02 AM [employer] SERVICES - [facility] CREATININE 0.63 0.51 - 0.95 mg/dL 03/04/2017 9:02 AM [facility] GLUCOSE 79 74 - 99 mg/dL 03/04/2017 9:02 AM [facility] TOTAL PROTEIN 6.6(L) 6.7 - 8.6 g/dL 03/04/2017 9:02 AM [facility] ALBUMIN 4.0 3.5 - 5.2 g/dL 03/04/2017 9:02 AM [facility] BILIRUBIN TOTAL 0.3 0.2 - 1.1 mg/dL 03/04/2017 9:02 AM [facility] ALKALINE PHOSPHATASE 87 35 - 104 U/L 03/04/2017 9:02 AM [facility] [facility] AST 28 <33 U/L 03/04/2017 9:02 AM [facility] ALT 27 <34 U/L 03/04/2017 9:02 AM [facility] GFR >60 >=60 mL/min/1.7 3 sq meter 03/04/2017 9:02 AM [facility] Comment: eGFR has [...] 3 sq meter 03/04/2017 9:02 AM CDT [facility] ANION GAP 14 8 - 16 mmol/L 03/04/2017 9:02 AM T [facility] LABORATORY SERVICES [facility] Blood Venipuncture / Unknown 03/04/2017 6:00 AM CDT 03/04/2017 8:26 AM CDT [facility]ATORY [facility] - [facility] - 03/04/2017 9:02 AM CDT Samples containing indocyanine green cause interferences on Total and/or Direct Bilirubin and must not be measured. Yasmin Vieyra DO CHEMISTRY ORDERABLES [facility] LABORATORY SERVICES [facility]# [id number] [address] [place] [address] * (ABNORMAL) CBC WITH DIFFERENTIAL (03/04/2017 6:00 AM CDT) Pathologist [facility] WBC 8.5 4.0 - 9.8 K/uL 03/04/2017 8:34 AM T [facility] [facility]ORATORY SERVICES [facility] RBC 4.50 3.90 - 4.90 M/uL 03/04/2017 8:34 AM T [facility] [facility]ORAT[facility] - [facility] HEMOGLOBIN 13.3 11.8 - 14.8 g/dL 03/04/2017 8:34 AM T [facility] LABORATORY SERVICES - [facility] HEMATOCRIT 40.0 35.5 - 44.0 % 03/04/2017 8:34 AM T [facility] [facility] LABORATORY SERVICES - [facility] MCV 88.9 82.0 - 99.0 fL 03/04/2017 8:34 AM T [facility] [facility] - [facility] MCH 29.6 27.2 - 32.6 pg 03/04/2017 8:34 AM T [facility] - [facility] MCHC 33.3 31.5 - 35.5 g/dL 03/04/2017 8:34 AM CDT [facility] - [facility] RDW 12.4 11.5 - 14.5 % 03/04/2017 8:34 AM CDT [facility] RDW-STDEV 40.8 37.1 - 48.7 fL 03/04/2017 8:34 AM CDT [facility] PLATELETS 488(H) 140 - 350 K/uL 03/04/2017 8:34 AM CDT [facility] MPV 9.3 9.3 - 12.4 fL 03/04/2017 8:34 AM [employer] NEUTROPHILS 54 % 03/04/2017 8:34 AM CDT [facility] LYMPHOCYTES 37 % 03/04/2017 8:34 AM [facility] MONOCYTES 7 % 03/04/2017 8:34 AM [employer] EOSINOPHILS 1 % 03/04/2017 8:34 AM CDT [facility] BASOPHILS 0 % 03/04/2017 8:34 AM [facility] IMMATURE GRANULOCYTES 1 % 03/04/2017 8:34 AM [facility] Comment:IG (Immature Granulo cyte) count includes Metamyelocytes, Myelocytes, and Promyelocytes NEUTROPHIL ABSOLUTE 4.56 1.90 - 7.00 K/uL 03/04/2017 8:34 AM [facility] LYMPHOCYTE ABSOLUTE 3.17 0.70 - 4.50 K/uL 03/04/2017 8:34 AM [facility] [employer] [facility] MONOCYTE ABSOLUTE 0.60 0.10 - 1.30 K/uL 03/04/2017 8:34 AM CDT [facility] EOSINOPHIL ABSOLUTE 0.12 0.00 - 0.70 K/uL 03/04/2017 8:34 AM [facility] BASOPHILS ABSOLUTE 0.02 0.00 - 0.20 K/uL 03/04/2017 8:34 AM CDT [facility] IMMATURE GRANULOCYTES ABSOLUTE 0.05(H) 0.00 - 0.03 K/uL 03/04/2017 8:34 AM T [facility] Blood Venipuncture / Unknown 03/04/2017 6:00 AM CDT 03/04/2017 8:26 AM CDT Yasmin Vieyra DO HEMATOLOGY ORDERABLE S [employer] [facility] - [facility] CLIA# [id number] [address] [facility] [place] [address] [place] [address] * URINALYSIS WITH REFLEX CULTURE (03/03/2017 10:08 PM CDT) COLOR UA Pale Yellow Pale to Dark Yellow 03/04/2017 8:31 AM [facility] [employer] SERVICES - . [place] CLARITY UA Clear Clear 03/04/2017 8:31 AM [facility] [employer] SERVICES - . [facility] SPECIFIC GRAVITY UA 1.008 1.003 - 1.035 03/04/2017 8:31 AM T [employer] SERVICES - . [facility] PH UA 8.0 5.0 - 8.0 03/04/2017 8:31 AM [facility] LEUKOCYTE ESTERASE UA Negative Negative 03/04/2017 8:31 AM [facility] [employer] SERVICES - . [place] NITRITE UA Negative Negative 03/04/2017 8:31 AM [facility] [employer] [facility] - [facility] PROTEIN UA Negative Negative 03/04/2017 8:31 AM [facility] [employer] SERVICES - . [place] GLUCOSE UA Negative Negative 03/04/2017 8:31 AM T [employer] [facility] KETONES UA Negative Negative 03/04/2017 8:31 AM T [employer] [facility] - [facility] UROBILINOGEN UA Normal <2.0 mg/dL 7 8:31 AM [facility] [employer] [facility] - [facility] BILIRUBIN UA Negative Negative 03/04/2017 8:31 AM [facility] [employer] [facility] - [facility] BLOOD UA Negative Negative 03/04/2017 8:31 AM [facility] [employer] [facility] Urine URINE SPECIMEN OBTAINED BY CLEAN CATCH PROCEDURE / Unknown Collection / Unknown 03/03/2017 10:08 PM CDT 03/04/2017 8:10 AM CDT Yasmin Vieyra URINE ORDERABLES Performing Organization Address City/State/[facility] Co de Phone Number [facility]# [id number] [address] [place] [address] documented in this encounter Visit Diagnoses Diagnosis [...] Until Discontinued, Routine Given 03/15/2017 8:58 AM [facility] 10 mg Given 03/14/2017 8:21 AM [facility] SERVICE SPECIALIST 10 mg Given 03/13/2017 9:05 AM [facility] SPECIALIST 10 mg atorvastatin (LIPITOR) tablet 20 mg 20 mg, Oral, DAILY LATE, First dose on Mon03/03/17 at 1945, Until Discontinued, Routine Given 03/14/2017 4:11 PM [facility]ION SERVICE SPECIALIST 20 mg Given 03/13/2017 4:45 PM [facility]ION SERVICE SPECIALIST 20 mg Given 03/12/2017 5:13 PM [facility]T[employer]ION SERVICE SPECIALIST 20 mg ednbsqjsvz-lzgytpx-quqjfvqmgqxte (CEPACOL) lozenge 1 Each 1 Each, Mouth/Throat, EVERY 3 HOURS PRN, Starting on Mon03/12/17 at 0526, Until Mon03/15/17 at 1429, Sore Throat, Routine Given 03/12/2017 8:59 PM REGIONAL EXTENSION SERVICE SPECIALIST 1 Eac h bisacodyl (DULCOLAX) rectal suppository 10 mg 10 mg, Rectal, DAILY PRN, Starting on Mon03/03/17 at 1944, Until Mon03/15/17 at 1429, Constipation, Routine Given 03/12/2017 9:15 PM [facility] EXTENSION SERVICE SPECIALIST 10 mg Given 03/09/2017 9:51 AM [facility] [employer]ION SERVICE SPECIALIST 10 mg Given 03/07/2017 1:45 PM [facility] EXTENSION SERVICE SPECIALIST 10 mg calcium-cholecalciferol (OS-IAN 500+D) tablet 1 Tablet 1 Tablet, Oral, DAILY, First dose on 03/04/17 at 0900, Until Discontinued, Routine Given 03/15/2017 8:59 AM REG[facility]AL EXTENSION SERVICE SPECIALIST 1 Tablet Given 03/14/2017 8:21 AM REGIONAL EXTENSION SERVICE SPECIALIST 1 Tablet Given 03/13/2017 9:05 AM [facility] EXTENSION SERVICE SPECIALIST 1 Tablet cyanocobalamin (VITAMIN B-12) tablet 100 mcg 100 mcg, Oral, DAILY, First dose on 03/04/17 at 0900, Until Discontinued, Routine Given 03/15/2017 9:01 AM [facility] EXTENSION SERVICE SPECIALIST 100 mcg Given 03/14/2017 8:21 AM [facility] EXTENSION SERVICE SPECIALIST 100 mcg Given 03/13/2017 9:05 AM REGION[facility] EXTENSION SERVICE SPECIALIST 100 mcg diazePAM (VALIUM) tablet 5 mg 5 mg, Oral, EVERY 8 HOURS PRN, Starting on Mon03/03/17 at 1944, Until 03/05/17 at 1018, Anxiety, Discomfort, Routine Given 03/05/2017 5:20 AM [facility]TENSION SERVICE SPECIALIST 5 mg Given 03/04/2017 9:06 PM CDT 5 mg Given 03/03/2017 10:04 PM CDT 5 mg docusate sodium (COLACE) capsule 100 mg 100 mg, Oral, TWO TIMES DAILY, First dose (after last modification) on 03/05/17 at 1330, Until Discontinued, Routine Given 03/15/2017 9:01 AM [facility] EXTENSION SERVICE SPECIALIST 100 mg Given 03/14/2017 8:59 PM [facility] EXTENSION SERVICE SPECIALIST 100 mg Given 03/14/2017 8:21 AM [facility] EXTENSION SERVICE SPECIALIST 100 mg DULoxetine (CYMBALTA) capsule 60 mg 60 mg, Oral, DAILY AT BEDTIME, First dose on Mon03/03/17 at 2100, Until Discontinued, Routine Given 03/14/2017 8:59 PM REG[facility] EXTENSION SERVICE SPECIALIST 60 mg Given 03/13/2017 9:04 PM REGIONAL EXTENSION SERVICE SPECIALIST 60 mg Given 03/12/2017 9:00 PM [facility] EXTENSION SERVICE SPECIALIST 60 mg enoxaparin (LOVENOX) injection 40 mg 40 mg, subCUT, EVERY 24 HOURS, First dose on Mon03/03/17 at 2315, Until Discontinued, Routine Given 03/14/2017 8:59 PM [facility] EXTENSION SERVICE SPECIALIST 40 mg Abdomen, Left Lower Quadrant Given 03/13/2017 9:07 PM REG[facility] EXTENSION SERVICE SPECIALIST 40 mg Ab domen, Right Lower Quadrant Given 03/12/2017 8:58 PM [facility] EXT[employer]ION SERVICE SPECIALIST 40 mg Ab domen, Left Lower Quadrant eszopiclone (LUNESTA) tablet 3 mg 3 mg, Oral, DAILY AT BEDTIME, First dose on Mon03/08/17 at 2100, Until Discontinued, Routine Given 03/14/2017 10:52 PM [facility]T[employer]ION SERVICE SPECIALIST 3 mg Given 03/13/2017 9:00 PM [facility] EXTENSION SERVICE SPECIALIST 3 mg Given 03/12/2017 8:58 PM [facility] EXTENSION SERVICE SPECIALIST 3 mg FLUoxetine (PROzac) capsule 40 mg 40 mg, Oral, DAILY AT BEDTIME, First dose on Mon03/03/17 at 2100, Until Discontinued, Routine Given 03/14/2017 8:58 PM [facility] EXTENSION SERVICE SPECIALIST 40 mg Given 03/13/2017 9:05 PM [facility] EXTENSION SERVICE SPECIALIST 40 mg Given 03/12/2017 9:00 PM [facility] EXTENSION SERVICE SPECIALIST 40 mg levothyroxine (SYNTHROID) tablet 50 mcg 50 mcg, Oral, DAILY EARLY, First dose on Mon03/04/17 at 0600, Until Discontinued, Routine Given 03/15/2017 5:59 AM [facility]ION SERVICE SPECIALIST 50 mcg Given 03/14/2017 5:58 AM [facility] EXTENSION SERVICE SPECIALIST 50 mcg Given 03/13/2017 5:47 AM [facility] EXTENSION SERVICE SPECIALIST 50 mcg Lidocaine (ASPERCREME) 4 % topical patch 1 Patch 1 Patch, Topical, DAILY, 3 doses, First dose on Mon03/05/17 at 1045, Last dose on Mon03/07/17 at 0900, Routine Applied 03/07/2017 8:42 AM [facility] SERVICE SPECIALIST 1 Patch Abdom inal Tissue Applied 03/06/2017 8:55 AM [facility] EXTENSION SERVICE SPECIALIST 1 Patch Ab dominal Tissue Applied 03/05/2017 11:40 AM [facility] EXTENSION SERVICE SPECIALIST 1 Patch O ther (Comment) lisinopril (PRINIVIL) tablet 40 mg 40 mg, Oral, DAILY AT BEDTIME, First dose on Mon03/03/17 at 2100, Until Discontinued, Routine Given 03/14/2017 8:58 PM [facility]ION SERVICE SPECIALIST 40 mg Given 03/12/2017 9:00 PM [facility]ION SERVICE SPECIALIST 40 mg Given 03/11/2017 9:01 PM [facility]TENSION SERVICE SPECIALIST 40 mg magnesium hydroxide (MILK OF MAGNESIA) oral suspension 30 mL 30 mL, Oral, DAILY PRN, Starting on Mon03/06/17 at 0523, Until Mon03/15/17 at 1429, Constipation, Routine Given 03/07/2017 1:54 PM [facility]ION SERVICE SPECIALIST 30 mL melatonin tablet 3 mg 3 mg, Oral, DAILY AT BEDTIME, First dose on Mon03/12/17 at 2100, Until Discontinued, Routine Given 03/14/2017 8:58 PM [facility] EXTENSION SERVICE SPECIALIST 3 mg Given 03/13/2017 9:04 PM [facility]TENSION SERVICE SPECIALIST 3 mg Given 03/12/2017 8:59 PM [facility] EXTENSION SERVICE SPECIALIST 3 mg methocarbamol (ROBAXIN) tablet 500 mg 500 mg, Oral, THREE TIMES DAILY, First dose on Mon03/05/17 at 1030, Until Discontinued, Routine Given 03/15/2017 6:04 AM [facility]ION SERVICE SPECIALIST 500 mg Given 03/14/2017 4:11 PM [facility] EXTENSION SERVICE SPECIALIST 500 mg Given 03/14/2017 12:43 PM [facility] EXTENSION SERVICE SPECIALIST 500 mg ondansetron (ZOFRAN ODT) tablet 4 [...] Moderate, Routine Given 03/09/2017 10:09 P M [facility]ION SERVICE SPECIALIST 1 Tablet Given 03/09/2017 9:22 AM [facility] EXTENSION SERVICE SPECIALIST 1 Tablet Given 03/05/2017 5:18 AM [facility] EXTENSION SERVICE SPECIALIST 1 Tablet pantoprazole (PROTONIX) tablet 40 mg 40 mg, Oral, DAILY, First dose on Mon03/04/17 at 0900, Until Discontinued, Routine Given 03/15/2017 5:59 AM [facility] EXTENSION SERVICE SPECIALIST 40 mg Given 03/14/2017 5:58 AM [facility]TENSION SERVICE SPECIALIST 40 mg Given 03/13/2017 5:47 AM [facility]TENSION SERVICE SPECIALIST 40 mg sennosides-docusate sodium (SENNA-S) 8.6-50 mg per tablet 1 Tablet 1 Tablet, Oral, DAILY AT BEDTIME, First dose on Mon03/08/17 at 2100, Until Discontinued, Routine Given 03/14/2017 8:58 PM [facility]ION SERVICE SPECIALIST 1 Tablet Given 03/12/2017 8:59 PM [facility]ION SERVICE SPECIALIST 1 Tablet Given 03/11/2017 9:02 PM [facility]ION SERVICE SPECIALIST 1 Tablet sodium chloride 0.9% infusion IV, at 100 mL/hr, CONTINUOUS, Starting on Mon03/08/17 at 0415, Until Mon03/08/17 at 1414, Routine, IVF NS at 100 ml/hr x 1L Rate Verify 03/08/2017 5:00 AM [facility]ION SERVICE SPECIALIST 100 mL /hr New Bag 03/08/2017 4:15 AM [facility]TENSION SERVICE SPECIALIST 100 mL/hr sodium chloride tablet 1 Gram 1 Gram, Oral, THREE TIMES DAILY WITH MEALS, First dose on Mon03/07/17 at 1300, Until Discontinued, Routine Given 03/07/2017 4:54 PM [facility]ION SERVICE SPECIALIST 1 Gram Given 03/07/2017 1:43 PM [facility] EXTENSION SERVICE SPECIALIST 1 Gram sodium chloride tablet 1 Gram 1 Gram, Oral, THREE TIMES DAILY WITH MEALS, First dose on Mon03/08/17 at 1700, Until Discontinued, Routine Given 03/14/2017 12:43 PM [facility] EXTENSION SERVICE SPECIALIST 1 Gram Given 03/14/2017 8:21 AM REGIONAL EXTENSION SERVICE SPECIALIST 1 Gram Given 03/13/2017 4:45 PM REGIONAL EXTENSION SERVICE SPECIALIST 1 Gram sodium chloride tablet 2 Gram 2 Gram, Oral, THREE TIMES DAILY WITH MEALS, First dose (after last modification) on Mon03/14/17 at 1700, Until Discontinued, Routine Given 03/15/2017 9:02 AM REGIONAL EXTENSION SERVICE SPECIALIST 2 Grams Given 03/14/2017 4:11 PM REGIONAL EXTENSION SERVICE SPECIALIST 2 Grams tiZANidine (ZANAFLEX) tablet 2 mg 2 mg, Oral, DAILY AT BEDTIME, First dose on Mon03/05/17 at 2100, Until Discontinued, Routine Given 03/06/2017 9:40 PM [facility]ION[facility] EXTENSION SERVICE SPECIALIST 2 mg Given 03/05/2017 10:00 PM REGION[facility] EXTENSION SERVICE SPECIALIST 2 mg tiZANidine (ZANAFLEX) tablet 4 mg 4 mg, Oral, DAILY AT BEDTIME, First dose (after last modification) on Mon03/07/17 at 2100, Until Discontinued, Routine Given 03/07/2017 8:43 PM REGIONAL EXTENSION SERVICE SPECIALIST 4 mg documented in this encounter Active and Recently Administered Medications Times are shown in REGIONAL EXTENSION SERVICE SPECIALIST. Scheduled Medication Order 03/13/2017 03/14/2017 03/15/2017 amLODIPine [...] Wood RN) 08 (Given - Provider: Shorty Hanosn LPN) 0859 (Given - Provider: Kathy Jha [...] 1946, Until Mon03/15/17 at 1429, Pain, Routine fmacmxnkut-qzrwiuf-rlclfumlqpcbh (CEPACOL) lozenge 1 Each 1 Each, Mouth/Throat, [...] Routine documented in this encounter Care Teams Miner Pick Relationship Specialty Start Date End Date Gadiel Zavala MD [address] [place] [id number] PCP - General Family Practice 03/03/17 documented as of this encounter
--- OUTSIDE RECORDS SUMMARY | 2024-04-17 17:15 | XMS_ITS | Encounter Summary ---
Author Organization [facility] Address [address] [place] [address] Care Team Providers Care Music Pastor Name Role Phone [facility], External Provider Primary Care Provider U navailable Reason for Visit * Auth/Cert Specialty Diagnoses / Procedures Referred By Delores t Referred To Contact General Surgery Diagnoses CERVICAL SPONDYLOSIS Procedures CERVICAL DISCECTOMY FUSION 1 LEVEL ANTERIOR [facility] Or [address] [place] [address] Referral ID Status Reason Start Date Expiration Date Visits Re quested Visits Authorized [id number] 1 1 Encounter Details Date Type Department Care Team (Late st Contact Info) Description 02/16/2017 12:50 PM CDT Anesthesia Event [facility] Operating Room [address] [place] [address] Dale Duque MD [address] [place] [address] Boom Delgadillo AA-C [address] [place] [phone] Anesthesia Record Procedure Summary Procedure Name [...] completed in accordance with procedure. Delgadillo to [place] 1442 An Extubation Emergence unev entful Awake, [...] discussed with Patient. Plan discussed with Anesthesiologist Traffic Circuit Engineer. Plan for postoperative opioid use Smoking Compliance Patient did not smoke on day of surgery Pre-Anesthesia Evaluation - Long Form 02/16/2017 12:48 PM Name: Kaitlin Bond Age: 66 y.o. Sex: female CSN: [id number] Procedure: Procedure(s): CERVICAL DISCECTOMY FUSION 1 LEVEL ANTERIOR, C3-4 Surgeons/Assistants: Surgeon(s) and Role: * Mylene Gutierrez MD - Primary Allergies Allergen Reactions ??? Adhesive Rash Prescriptions Prior to Admission Medication Sig Dispense Refill Last Dose ??? omeprazole (PriLOSEC) 40 mg Capsule, Delayed Release(E.C.) Take 40 mg by mouth daily. 02/16/2017 at 815 ??? levothyroxine 50 mcg tablet Take 50 mcg by mouth daily web page developer. 02/16/2017 at 815 ??? atorvastatin (LIPITOR) 20 [...] mg documented in this encounter Care Teams Music Pastor Relationship Specialty Start Date End Date [facility], External Provider [address] [place] [address] PCP - General 01/17/17 03/02/17 documented as of this encounter
--- OUTSIDE RECORDS SUMMARY | 2024-04-17 17:15 | XMS_ITS | Encounter Summary ---
Author Organization [facility] Address [address] [place] [address] Care Team Providers Care Handle Attacher Name Role Phone [facility], External Provider Primary Care Provider U navailable Reason for Visit * Auth/Cert Specialty Diagnoses / Procedures Referred By Delores t Referred To Contact General Surgery Diagnoses weakness [facility] Int Unit [place] [address] [place] [address] Referral ID Status Reason Start Date Expiration Date Visits Re quested Visits Authorized [id number] 1 1 Encounter Details Date Type Department Care Team (Latest Contact Info) Description 02/28/2017 10:24 AM CDT - 02/28/2017 11:59 PM T Hospital Encounter [facility] Spine [facility] [address] [place] [address] Mylene Gutierrez MD [address] 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 atorvastatin (LIPITOR) 20 mg tablet Take 20 [...] spine has been ordered. DICTATION LOCATION: Location [address] [place] [address] Narrative 03/01/2017 11:23 AM CDT XR CERVICAL [...] cervical spine has been ordered. DICTATION LOCATION: [place] [address] - [facility] Mylene Gutierrez MD DIAGNOSTIC IMAGING O POP documented in this encounter Visit Diagnoses Diagnosis Cervical stenosis of spine Spinal stenosis in cervical region documented in this encounter Care Teams Handle Attacher Relationship Specialty Start Date End Date [facility], External Provider [address] [place] [address] PCP - General 01/17/17 03/02/17 documented as of this encounter
--- OUTSIDE RECORDS SUMMARY | 2024-04-17 17:15 | XMS_ITS | Encounter Summary ---
Author Organization [facility] Address [address] [place] [address] Care Team Providers Care Chaplain Name Role Phone [facility], External Provider Primary Care Provider U navailable Reason for Visit * Auth/Cert Specialty Diagnoses / Procedures Referred By Delores t Referred To Contact General Surgery Diagnoses CERVICAL SPONDYLOSIS Procedures CERVICAL DISCECTOMY FUSION 1 LEVEL ANTERIOR [facility] Or [address] [place] [address] Referral ID Status Reason Start Date Expiration Date Visits Re quested Visits Authorized [id number] 1 1 Encounter Details Date Type Department Care Team (Latest Contact Info) Description 02/16/2017 10:39 AM CDT - 02/17/2017 10:41 AM CDT Hospital Encounter [facility] Interventional Unit [place] [address] [place] [address] Mylene Gutierrez MD [address] [facility] [address] [address] -x0 (Work) Cervical stenosis of [...] you for choosing [facility] for your care! The following [...] food bags, a child, or a vacuum chicken cleaner. ?? 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 atorvastatin (LIPITOR) 20 mg tablet Take [...] to home today. Elaine Dubon PA-C Pgr: [phone] * Maggy Willard PA - 02/16/2017 2:40 PM CDT [place], [place] [address] Neurosurgery Brief Operative Note Kaitlin Bond [id number] Today's Date: 02/16/2017 Pre-op Dx: cervical stenosis [...] Gutierrez MD - 02/16/2017 4:20 PM CDT [place], [place] [address] Operative Report CSN: [id number] DATE OF SERVICE: 02/16/2017 SURGEON Mylene Gutierrez MD PREOPERATIVE DIAGNOSIS Cervical stenosis. POSTOPERATIVE DIAGNOSIS Cervical stenosis. OPERATION NAME C3-4 anterior cervical diskectomy, C3-4 arthrodesis, C3-C4 instrumentation, intraoperative microscope use, and intraoperative fluoroscopy. ANESTHESIA General. DIRECTOR OF GROUP COUNSELING PROGRAM ZEHRA Emerson, who participated in both the [...] exposing the underlying disc. I then placed [place] pins in the body of C3 and [...] the screws down and applied the director of supply chain recommended locking mechanism. I removed my self-retaining [...] and needle counts were correct. TQ:MEDQ DID: [id number] Dictated by: Mylene Gutierrez MD documented in [...] pain/comfort utilizing verbal/nonverbal pain scales; assess culturalor hinduism indicators attached to pain; administer pain medications [...] PM CDT CERVICAL SPONDYLOSIS Case Notes [employer], [id number] PER [facility], CPT 37240, 41970, 50647 VERIFICATION BLOOD GROUP Stat 02/16/2017 11:30 AM [...] IMPRESSION: As above. DICTATION LOCATION: Location 1, [facility] Narrative 02/16/2017 5:46 PM CDT [...] noted. IMPRESSION: As above. DICTATION LOCATION: Location [address] [place] [address] Maggy Willard PA-C DIAGNOSTIC IMAGING ORDERABLES * XR FLUORO LESS THAN 1 HOUR (02/16/2017 2:32 PM CDT) Anatomical Region Laterality Modality Computed Radiogr aphy 02/16/2017 2:33 PM CDT Impressions 02/17/2017 8:26 AM CDT IMPRESSION: Intraoperative fluoroscopy was provided during cervical spine surgery. DICTATION LOCATION: Location 1 - [facility] Narrative 02/17/2017 8:26 AM CDT [...] spine surgery. DICTATION LOCATION: Location 1 - [facility] Mylene Gutierrez MD DIAGNOSTIC IMAGING O RDERABLES * VERIFICATION BLOOD GROUP (02/16/2017 11:30 AM CDT) ABO GROUP A 02/16/2017 11:30 AM CDT [facility] -- [facility] RH (D) TYPE Positive 02/16/2017 11:30 AM CDT [facility] -- [facility] Blood Venipuncture / Unknown 02/16/2017 11:30 AM CDT 02/16/2017 11:41 AM CDT Carolina Peck MD BLOOD BANK STACY OLIVIA [facility] [id number] [address] [address] documented in this encounter Visit Diagnoses Diagnosis [...] RN) 601 (New Bag - Provider: Glory aRymond RN)0632 (Stopped - Provider: Glory Raymond RN) [...] Provider: Jayne Lovell)1143 (New Bag - Provider: Ktai Mooney RN)1427 (New Bag - Provider: RAGHU [...] Routine documented in this encounter Care Teams Chaplain Relationship Specialty Start Date End Date [facility], External Provider [address] [place] [address] PCP - General 01/17/17 03/02/17 documented as of this encounter
--- OUTSIDE RECORDS SUMMARY | 2024-04-17 17:16 | XMS_ITS | Encounter Summary ---
Author Organization [facility] Address [address] [place] [address] Care Team Providers Care Commercial Credit Specialist Name Role Phone Gadiel Zavala MD Primary Care Provider +1 -[phone] Lyudmila Knox RN Unavailable Unavailable Jennifer Escalona RN Unavailable Agustina vailable Reason for Referral * Procedure (Routine) - Canceled Specialty Diagnoses / Procedures Referred By Delores vines Referred To Contact Cardiology Diagnoses Presence of Amulet left atrial appendage closure device Emilio Wahl MD [address] [address] Phone: tel: fax: Emilio Wahl MD [address] [address] Phone: tel: fax: Referral ID Status Reason Start Date Expiration Date Visits Requested Visits Authorized [id number] Canceled Specialty Services Required 01/02/2024 01/31/2025 1 1 Question Answer Please select the performing region: [facility] [[id number]] Please select the performing department: [facility] [[id number]] To provider: EMILIO WAHL [[id number]] # of visits: 1 Comments Kaitlin Yaya Bond 1950 [place] in CL with Dr. Wahl on 02/08/24 at 1130 a.m. pt to arrive at [address] Wahl ordered procedure and doing procedure. Dx: S/p Amulet procedure. [facility] Medicare * Cardiology (Routine) - Closed Specialty [...] WO DOPPLER/CF W CONTRAST Emilio Wahl MD [address] [place] [address] Phone: tel: fax: [address] [phone] Referral ID Status Reason Start Date Expiration Date Visits Re quested Visits Authorized [id number] Closed 01/02/2024 01/31/2025 1 1 Reason for Visit * Reason Onset Date Comments Procedure Scheduling 01/02/2024 Post-Amulet [place] Encounter Details Date Type Department Care Team (Late st Contact Info) Description 01/02/2024 Telephone [facility] Cardiology [address] [place] [phone] Emilio Wahl MD [address] [place] [address] Procedure Scheduling (Post-Amulet [place] ) Social History Tobacco Use Types Packs/Day Years Used Date Smoking Tobacco: Former Cigarettes Q uit: 04/14/1987 Smokeless Tobacco: Never Alcohol Use Standard Drinks/Week Comments Yes 0 (1 standard drink = 0.6 oz pur e alcohol) social [facility] Utilities Answer Date Recorded In the past 12 months has [employer] gas, oil, or water [employer] threatened to shut off services in your [...] often do you attend chur ch or pentecostalism services? Never 11/17/2023 Do you belong to [...] any time in the past 12 m [facility], were you homeless or living in a longterm (including now)? No 11/17/2023 Personal Safety Answer Date Recorded Have you ever been in or are you currently in a harmful physical or emotional relationship or is someone making you feel afraid or unsafe? 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 Dx: S/p Amulet procedure. [facility] Medicare. Spoke w/ Omar with CL. Got date/time. Called Centralized scheduling and had them manually place ont schedule so it shows up for graphics. Messaged Rocio from [email or web address], notified her so probe availability. Messaged Omar [...] 1132, total time ?? 12 minutes (CPT 59969) ANESTHESIA: ??Versed. ??2 mg, ??Fentanyl ??50 mcg, Benzocaine [place], Viscous lidocaine. ??Dee Costa RN was trained [...] was used to complete this document, therefore, perianesthesia manager variances may occur. Emilio Wahl MD, [facility] 02/08/24 Emilio Wahl MD CV ECHO PROCEDURES Final Result documented in this encounter Visit Diagnoses Diagnosis Presence of Amulet left atrial appendage closure device- Primary Presence of Amulet left atrial appendage closure device documented in this encounter Care Teams Commercial Credit Specialist Relationship Specialty Start Date End Date Gadiel Zavala MD [address] [address] PCP - General 06/13/16 Lyudmila Knox, RN Registered Nurse 04/14/17 Jennifer Escalona, LOGAN Registered Nurse 05/10/17 documented as of this encounter
--- OUTSIDE RECORDS SUMMARY | 2024-04-17 17:16 | XMS_ITS | Encounter Summary ---
Author Organization [facility] Address [address] [place] [address] Care Team Providers Care Maintenance Of Way Foreman Name Role Phone Gadiel Zavala MD Primary Care Provider [phone] [phone] Lyudmila Knox RN Unavailable Unavailable Jennifer Escalona RN Unavailable Agustina vailable Reason for Visit * Cardiology (Routine) - Closed Specialty Diagnoses / Procedures Referred By Delores t Referred To Contact Diagnoses PAF (paroxysmal atrial fibrillation) (CMS/HCC) (HCC) Procedures DEVICE CHECK - REMOTE Emilio Leggett MD [address] [place] [address] Phone: tel: fax: Referral ID Status Reason Start Date Expiration Date Visits Re quested Visits Authorized [id number] Closed 10/13/2023 04/13/2025 1 1 Encounter Details Date Type Department Care Team (Latest Contact Info) Description 01/22/2024 9:15 AM CDT Ancillary Procedure [facility] Cardiology [address] [place] [address] [place] [phone] Status post placement of implantable loop recorder [...] often do you attend chur ch or catholic services? Never 11/17/2023 Do you belong to any clubs o r organizations such as mandaen groups, unions, fraternal or athletic groups, or [...] any time in the past 12 m [facility], were you homeless or living in a [...] on file Legal Sex Female 3:22 AM VP HUMAN [employer]OURCES Gender Identity Not on file Sexual Orientation [...] LNQ22 Loop Recorder. Dx; Syncope, Afib. DOI 08/08/2022-[place]. Carelink remote monitoring. Amulet placed 11/16/23 Routine [...] loop recorder- Primary PAF (paroxysmal atrial fibrillation) ([facility]/HCC) ([facility]) Atrial fibrillation Syncope, unspecified syncope type documented in this encounter Care Teams Maintenance Of Way Foreman Relationship Specialty Start Date End Date Gadiel Zavala MD [address] [address] PCP - General 06/13/16 Lyudmila Knox, RN Registered Nurse 04/14/17 Jennifer Escalona, RN Registered Nurse 05/10/17 documented as of this encounter
--- OUTSIDE RECORDS SUMMARY | 2024-04-17 17:16 | XMS_ITS ---
Author Organization [facility] Address [address] [place] [address] Care Team Providers Care Gasoline Catalyst Operator Name Role Phone Gadiel Zavala MD Primary Care Provider +1 [phone] Lyudmila Knox RN Unavailable Unavailable Jennifer Escalona [...] treatments are documented for this patient in [facility]. Treatments may have been administered in another system. Lifetime Dose Tracking * Chemical Lifetime Dose Automatic Entry Manual Entr y Fluoro Time 2.32 minutes 2.32 minutes 0 minutes Air kerma at the reference point (Ka,r) 370 mGy 0 mGy 370 mGy
--- OUTSIDE RECORDS SUMMARY | 2024-04-17 17:16 | XMS_ITS | Encounter Summary ---
Author Organization [facility] Address [address] [place] [address] Care Team Providers Care Chemical Plant Technical Director Name Role Phone Gadiel Zavala MD Primary Care Provider [phone] [phone] Lyudmila Knox RN Unavailable Unavailable Jennifer Escalona [...] WO DOPPLER/CF W CONTRAST Emilio Leggett MD [address] [place] [address] Phone: tel: fax: [address] [phone] Referral ID Status Reason Start Date Expiration Date Visits Re quested Visits Authorized [id number] Closed 01/02/2024 01/31/2025 1 1 Reason for [...] CONTRAST Emilio Leggett MD [address] [place] [address] Phone: tel: fax: [address] [phone] Referral ID Status Reason Start Date Expiration Date Visits Re quested Visits Authorized [id number] Closed 01/02/2024 01/31/2025 1 1 Encounter Details Date Type Department Care Team (Latest Contact Info) Description 02/08/2024 9:33 AM CDT - 02/08/2024 11:59 PM CDT Hospital Encounter [facility] Cardiac Catheterization Lab [address] [place] [address] Emilio Leggett MD [address] [place] [address] [place] [address] Presence of Amulet left atrial appendage closure device Discharge Disposition: Discharge to home or self care Social History Tobacco Use Types Packs/Day Years Used Date Smoking Tobacco: Former Cigarettes Q uit: 04/14/1987 Smokeless Tobacco: Never Alcohol Use Standard Drinks/Week Comments Yes 0 (1 standard drink = 0.6 oz pur e alcohol) social [employer] Utilities Answer Date Recorded In the past 12 months has [employer], gas, oil, or water [employer] threatened to shut off services in your [...] week 11/17/2023 How often do you attend [facility] or hindu services? 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 [phone] documented in this encounter Medications at Time [...] (20 mg total) by mouth daily 03/31/[address] (CYMBALTA) 60 mg capsule Take [...] 1 capsule (400 Units total) by mouth coffee xt/phosphatidyl serine (NEURIVA ORIGINAL ORAL) Take 1 capsule by mouth daily losartan (COZAAR) 25 mg tabletIndications: Essential hypertension [...] Miscellaneous Notes * Pre-Sedation Documentation - Emilio Leggtet MD - 02/08/2024 11:30 AM CDT Sedation [...] 1132, total time ?? 12 minutes (CPT 06224) ANESTHESIA: ??Versed. ??2 mg, ??Fentanyl ??50 mcg, Benzocaine [place], Viscous lidocaine. ??Dee Costa RN was trained [...] was used to complete this document, therefore, rfid developer variances may occur. Emilio Leggett MD, [facility] 02/08/24 Emilio Leggett MD CV ECHO [...] 02/08/2024 documented in this encounter Care Teams Chemical Plant Technical Director Relationship Specialty Start Date End Date Gadiel Zavala MD [address] [address] PCP - General 06/13/16 Lyudmila Knox, RN Registered Nurse 04/14/17 Jennifer Escalona, LOGAN Registered Nurse 05/10/17 documented as of this encounter
--- OUTSIDE RECORDS SUMMARY | 2024-04-17 17:16 | XMS_ITS | Encounter Summary ---
Author Organization [facility] Address [address] [place] [address] Care Team Providers Care Final Assembler Name Role Phone Gadiel Zavala MD Primary Care Provider [phone] [phone] Lyudmila Knox RN Unavailable Unavailable Jennifer Escalona RN Unavailable Agustina vailable Reason for Visit * Cardiology (Routine) - Closed Specialty Diagnoses / Procedures Referred By Contac t Referred To Contact Cardiology Diagnoses PAF (paroxysmal atrial fibrillation) (CMS/HCC) (HCC) Procedures DEVICE CHECK - REMOTE Emilio Leggett MD [address] [place] [address] Phone: tel: fax: [facility] Referral ID Status Reason Start Date Expiration Date Visits Re quested Visits Authorized [id number] Closed 10/13/2023 04/13/2025 1 1 Encounter Details Date Type Department Care Team (Latest Contact Info) Description 03/04/2024 9:00 AM PASTE MIXING SUPERVISOR Ancillary Procedure [facility] Cardiology [address] [place] [address] [place] [phone] Status post placement of implantable loop recorder (Primary Dx); PAF (paroxysmal atrial fibrillation) (CMS/HCC) (HCC); Syncope and collapse Social History Tobacco Use Types Packs/Day Years Used Date Smoking Tobacco: Former Cigarettes Q uit: 04/14/1987 Smokeless Tobacco: Never Alcohol Use Standard Drinks/Week Comments Yes 0 (1 standard drink = 0.6 oz pur e alcohol) social [facility] Utilities Answer Date Recorded In the [...] often do you attend chur ch or roman catholic services? Never 11/17/2023 Do you belong to any clubs o r organizations such as episcopalian groups, unions, fraternal or athletic groups, or [...] time in the past 12 m [facility], were you homeless or living in a snf (including now)? No 11/17/2023 Personal Safety Answer Date Recorded Have you ever been in or are you currently in a harmful physical or emotional relationship or is someone making you feel afraid or unsafe? Denies 02/08/2024 Comments No Sex and Gender Information Value Date Recorded Sex Assigned at Not on file Legal Sex Female 3:22 AM PASTE MIXING SUPERVISOR Gender Identity Not on file Sexual [...] CHECK - REMOTE Routine 03/05/2024 11:24 AM PASTE MIXING SUPERVISOR PAF (paroxysmal atrial fibrillation) (CMS/HCC) (HCC) documented in this encounter Results * DEVICE CHECK - REMOTE (03/05/2024 11:24 AM PASTE MIXING SUPERVISOR) Anatomical Region Laterality Modality Other Narrative 03/13/2024 8:08 AM PASTE MIXING SUPERVISOR Medtronic LNQ22 Loop Recorder. Dx; Syncope, Afib. DOI 08/08/2022-[place]. Carelink remote monitoring. 04/14/23-WAD note: Anticoagulation contraindication d/t frequent falls and h/o head injury. ILR interrogations for more definitive documentation of Afib [place] and justification for LAAO device implant. Routine [...] CareLink remote f/u 04/15/2024. Annie Lew, RN Emilio Leggett MD CV CARDIAC SERVICES PROCEDURES F inal Result documented in this encounter Visit Diagnoses Diagnosis Status post placement of implantable loop recorder- Primary PAF (paroxysmal atrial fibrillation) (CMS/HCC) ([facility]) Atrial fibrillation Syncope and collapse documented in this encounter Care Teams Final Assembler Relationship Specialty Start Date End Date Gadiel Zavala MD [address] [address] PCP - General 06/13/16 Lyudmila Knox, RN Registered Nurse 04/14/17 Jennifer Escalona, RN Registered Nurse 05/10/17 documented as of this encounter
--- OUTSIDE RECORDS SUMMARY | 2024-04-17 17:16 | XMS_ITS | Referral Summary ---
Author Organization [facility] Address [address] [place] [phone] Care Team Providers Care Health Care Sanitary Technician Name Role Phone Gadiel Zavala MD Primary Care Provider [phone] [phone] Lyudmila Knox RN Unavailable Unavailable Jennifer Escalona RN Unavailable Agustina vailable Encounters Date Type Department Care Team Description 03/04/2024 9:00 AM DIRECT SUPPORT WORKER Ancillary Procedure [facility] Cardiology [address] [place] [phone] Status post placement of implantable loop recorder (Primary Dx); PAF (paroxysmal atrial fibrillation) (CMS/HCC) (HCC); Syncope and collapse 02/08/2024 9:33 AM CDT - 02/08/2024 11:59 PM CDT Hospital Encounter [facility] Cardiac Catheterization Lab [address] [place] [address] Emilio Leggett MD Presence of Amulet left atrial appendage closure device Discharge Disposition: Discharge to home or self care 01/30/2024 Telephone [facility] Pre Anesthesia Testing [address] [place] [address] Melly Vazquez RN 01/22/2024 9:15 AM CDT Ancillary Procedure [facility] Cardiology [address] [place] [phone] Status post placement of implantable loop [...] = 0.6 oz pur e alcohol) social [employer] Utilities Answer Date Recorded In the past 12 months has [employer], gas, oil, or water [employer] threatened to shut off services in your [...] week 11/17/2023 How often do you attend [facility] or yazidi services? Never 11/17/2023 Do you belong to any clubs o r organizations such as anabaptist groups, unions, fraternal or athletic groups, or [...] any time in the past 12 m [facility], were you homeless or living in [...] on file Legal Sex Female 3:22 AM DIRECT SUPPORT WORKER Gender Identity Not on file Sexual [...] March 2017 Medical Devices Implanted Type Area Leather Flesher Device Identifier Shelf Expiration Date Model / Serial / Lot Cage Cage Back Other Kit Stimulator Octrode L60 Cm Trial Lead Neurostimulator - [id number] Implanted:Qty: 1 on 05/03/2017 by Brice Eisenberg MD at [facility] Physician Office Building [address] [employer] 3086 / / Kit Stimulator Octrode L60 Cm Trial Lead Neurostimulator - [id number] Implanted:Qty: 1 on 05/03/2017 by Brice Eisenberg MD at [facility] Physician Office Building [address] [employer] 3086 / / Kit Neurostimulator Octrode L60 Cm Percutaneous 8 Electrode Lead - [id number] - [id number] Implanted:Qty: 1 on 06/22/2017 by Brice Eisenberg MD at [facility] N/A: Back [employer] 05/24/2019 [id number] / [id number] / Kit Neurostimulator Octrode L60 Cm Percutaneous 8 Electrode Lead - [id number] - [id number] Implanted:Qty: 1 on 06/22/2017 by Brice Eisenberg MD at [facility] N/A: Back [employer] 05/24/2019 [id number] / [id number] / [place] Lead Eduardo-Lock - [id number] Implanted:Qty: 2 on 06/22/2017 by Brice Eisenberg MD at [facility] N/A: Back [employer] 05/18/2019 1192 / / [id number] Generator Neurostimulator Proclaim Elite Thk13.4 Mm 5 In W49.5 Mm X H55.5 Mm Spinal Cord Implantable Pulse - [id number] - [id number] Implanted:Qty: 1 on 06/22/2017 by Brice Eisenberg MD at [facility] N/A: Back [employer] 05/02/2019 [id number] / [id number] / [employer] System Closure Repair Femoral Artery Suture Mediated Perclose Prostyle 82271-84 - [id number] Implanted:Qty: 1 on 11/16/2023 by Emilio Leggett MD at [facility] [employer] 07/29/2025 1 2773-03 / / [id number] [employer] System Closure Repair Femoral Artery Suture Mediated Perclose Prostyle 37793-77 - [id number] Implanted:Qty: 1 on 11/16/2023 by Emilio Leggett MD at [facility] [employer] 07/29/2025 1 2773- / / [id number] [employer] System Closure Repair Femoral Artery Suture Mediated Perclose Prostyle 09429-23 - [id number] Implanted:Qty: 1 on 11/16/2023 by Emilio Leggett MD at [facility] [employer] 07/29/2025 1 2773-03 / / [id number] [employer] Percutaneous Transcatheter Amplatzer Amulet 22mm [id number] - [id number] Implanted:Qty: 1 on 11/16/2023 by Emilio Leggett MD at [facility] Vascular 11/29/2027 9 -[id number] 7-022 / / [id number] Procedures Procedure Name Priority Date/Time Associated Diagnosis Comments DEVICE CHECK - REMOTE Routine 03/05/2024 11:24 AM DIRECT SUPPORT WORKER PAF (paroxysmal atrial fibrillation) (CMS/HCC) (HCC) TRANSESOPHAGEAL ECHO (HUMBERTO) W DOPPLER/CF WO CONTRAST Routine 02/08/2024 11:52 AM CDT Presence of Amulet left atrial appendage closure device DEVICE CHECK - REMOTE Routine 01/22/2024 1:27 PM CDT PAF (paroxysmal atrial fibrillation) (CMS/HCC) (HCC) from Last 3 Months Results * DEVICE CHECK - REMOTE (03/05/2024 11:24 AM DIRECT SUPPORT WORKER) Anatomical Region Laterality Modality Other Narrative 03/13/2024 8:08 AM DIRECT SUPPORT WORKER Medtronic LNQ22 Loop Recorder. Dx; Syncope, Afib. DOI 08/08/2022-[place]. Carelink remote monitoring. 04/14/23-WAD note: Anticoagulation contraindication d/t frequent falls and h/o head injury. ILR interrogations for more definitive documentation of Afib [place] and justification for LAAO device implant. Routine [...] 1132, total time ?? 12 minutes (CPT 62294) ANESTHESIA: ??Versed. ??2 mg, ??Fentanyl ??50 mcg, Benzocaine [place], Viscous lidocaine. ??Dee Costa RN was trained [...] was used to complete this document, therefore, private duty nurse variances may occur. Emilio Leggett MD, [facility] 02/08/24 us Emilio Leggett MD CV ECHO PROCEDURES Final Result * DEVICE CHECK - REMOTE (01/22/2024 1:27 PM CDT) Anatomical Region Laterality Modality Other Narrative 01/23/2024 2:25 PM CDT [employer] LNQ22 Loop Recorder. Dx; Syncope, Afib. DOI [...] from Last 3 Months Insurance MEDICARE [facility]IC[facility] Address: [address] [address] MEDICARE [facility] MEDICARE Address: [address] [place], [place] [phone] MEDICARE [facility] MEDICARE Address: [facility] [address] [place] [address] Care Teams Health Care Sanitary Technician Relationship Specialty Start Date End Date Gadiel Zavala MD [address] [address] PCP - General 06/13/16 Lyudmila Knox, RN Registered Nurse 04/14/17 Jennifer Escalona, LOGAN Registered Nurse 05/10/17
--- OUTSIDE RECORDS SUMMARY | 2024-04-17 17:16 | XMS_ITS | Clinical Summary ---
Author Organization [facility] Address [address] [place] [address] Care Team Providers Care Sales Floor Team Member Name Role Phone Gadiel Zavala MD Primary Care Provider +1 [phone] Lyudmila Knox RN Unavailable Unavailable Jennifer Escalona [...] Loop Recorder. Dx; Syncope, Afib. DOI 08/08/2022[facility]. Amulet placed 11/16/23 Falls frequently [...] Department Care Team Description 03/04/2024 9:00 AM LAWN CARETAKER Ancillary Procedure [facility] Cardiology [address] [facility] [address] [facility] [place] [address] Status post placement of implantable loop recorder (Primary Dx); PAF (paroxysmal atrial fibrillation) (CMS/HCC) (HCC); Syncope and collapse 02/08/2024 9:33 AM CDT - 02/08/2024 11:59 PM CDT Hospital Encounter [facility] Cardiac Catheterization Lab [address] [place] [address] Emilio Leggett MD Presence of Amulet left atrial appendage closure device Discharge Disposition: Discharge to home or self care 01/30/2024 Telephone [facility] Pre Anesthesia Testing [address] [place] [address] Melly Vazquez RN 01/22/2024 9:15 AM CDT Ancillary Procedure [facility] Cardiology [address] [place] [address] [place] [phone] Status post placement of implantable loop recorder [...] = 0.6 oz pur e alcohol) social Wireless EnvironmentC Utilities Answer Date Recorded In the past 12 months has [employer], gas, oil, or water [employer] threatened to shut off services in your [...] How often do you attend [facility] or mosque services? Never 11/17/2023 Do you belong to any clubs o r organizations such as confucianism groups, unions, fraternal or athletic groups, or [...] were you homeless or living in a assisted (including now)? No 11/17/2023 Personal Safety Answer Date Recorded Have you ever been in or are you currently in a harmful physical or emotional relationship or is someone making you feel afraid or unsafe? Denies 02/08/2024 Comments No Sex and Gender Information Value Date Recorded Sex Assigned at Not on file Legal Sex Female 3:22 AM LAWN CARETAKER Gender Identity Not on file Sexual Orientation [...] Author Increase physical activity Exercise Lyudmila Shah, OLGAN Note: She is doing arm and leg exercises from Pt. She was in rehab after neck surgery for 2 weeks in March 2017 Medical Devices Implanted Type Area Supervisor Rubber Covering Device Identifier Shelf Expiration Date Model / Serial / Lot Cage Cage Back Other Kit Stimulator Octrode L60 Cm Trial Lead Neurostimulator - [id number] Implanted:Qty: 1 on 05/03/2017 by Brice Eisenberg MD at [facility] [address] [employer] 3086 / / Kit Stimulator Octrode L60 Cm Trial Lead Neurostimulator - [id number] Implanted:Qty: 1 on 05/03/2017 by Brice Eisenberg MD at [facility] Building [address] [employer] 3086 / / Kit Neurostimulator Octrode L60 Cm Percutaneous 8 Electrode Lead - [id number] - [id number] Implanted:Qty: 1 on 06/22/2017 by Brice Eisenberg MD at [facility] N/A: Back [employer] 05/24/2019 [id number] / [id number] / Kit Neurostimulator Octrode L60 Cm Percutaneous 8 Electrode Lead - [id number] - [id number] Implanted:Qty: 1 on 06/22/2017 by Brice Eisenberg MD at [facility] N/A: Back [employer] 05/24/2019 [id number] / [id number] / [place] Lead Eduardo-Lock - [id number] Implanted:Qty: 2 on 06/22/2017 by Brice Eisenberg MD at [facility] N/A: Back [employer] 05/18/2019 1192 / / [id number] Generator Neurostimulator Proclaim Elite Thk13.4 Mm 5 In W49.5 Mm X H55.5 Mm Spinal Cord Implantable Pulse - Tsib404.1 - [id number] Implanted:Qty: 1 on 06/22/2017 by Brice Eisenberg MD at [facility] N/A: Back [employer] 05/02/2019 [id number] / [id number] / [employer] System Closure Repair Femoral Artery Suture Mediated Perclose Prostyle 75886-85 - [id number] Implanted:Qty: 1 on 11/16/2023 by Emilio Leggett MD at [facility] [employer] 07/29/2025 1 2773- / [id number] [employer] System Closure Repair Femoral Artery Suture Mediated Perclose Prostyle 08941-52 - [id number] Implanted:Qty: 1 on 11/16/2023 by Emilio Leggett MD at [facility] [employer] 07/29/2025 1 2773- / [id number] [employer] System Closure Repair Femoral Artery Suture Mediated Perclose Prostyle 26653-85 - [id number] Implanted:Qty: 1 on 11/16/2023 by Emilio Leggett MD at [facility] 07/29/2025 1 2773- / [id number] [employer] Percutaneous Transcatheter Amplatzer Amulet 22mm 1-Vqk1-693-022 - [id number] Implanted:Qty: 1 on 11/16/2023 by Emilio Leggett MD at [facility] 11/29/2027 9 -ACP2-00 7-022 / / [id number] Procedures Procedure Name Priority Date/Time Associated Diagnosis Comments DEVICE CHECK - REMOTE Routine 03/05/2024 11:24 AM LAWN CARETAKER PAF (paroxysmal atrial fibrillation) (CMS/HCC) (HCC) TRANSESOPHAGEAL ECHO (HUMBERTO) W DOPPLER/CF WO CONTRAST Routine 02/08/2024 11:52 AM CDT Presence of Amulet left atrial appendage closure device DEVICE CHECK - REMOTE Routine 01/22/2024 1:27 PM CDT PAF (paroxysmal atrial fibrillation) (CMS/HCC) (HCC) from Last 3 Months Results * DEVICE CHECK - REMOTE (03/05/2024 11:24 AM LAWN CARETAKER) Anatomical Region Laterality Modality Other Narrative 03/13/2024 8:08 AM LAWN CARETAKER Qomuty LNQ22 Loop Recorder. Dx; Syncope, Afib. DOI 08/08/2022-[place]. Carelink remote monitoring. 04/14/23-WAD note: Anticoagulation contraindication d/t frequent falls and h/o head injury. ILR interrogations for more definitive documentation of Afib Leland and justification for LAAO device implant. Routine [...] 1132, total time ?? 12 minutes (CPT 97339) ANESTHESIA: ??Versed. ??2 mg, ??Fentanyl ??50 mcg, Benzocaine [place], Viscous lidocaine. ??Dee Costa RN was trained [...] used to complete this document, therefore, private branch exchange service advisor variances may occur. Emilio Leggett MD, [facility] 02/08/24 Emilio Leggett MD CV ECHO PROCEDURES Final Result * DEVICE CHECK - REMOTE (01/22/2024 1:27 PM CDT) Anatomical Region Laterality Modality Other Narrative 01/23/2024 2:25 PM CDT Qomuty LNQ22 Loop Recorder. Dx; Syncope, Afib. DOI [...] from Last 3 Months Insurance MEDICARE SOLUTIONS [place] [id number] MEDICARE SOLUTIONS MEDICARE SOLUTIONS Care Teams Sales Floor Team Member Relationship Specialty Start Date End Date Gadiel Zavala MD [address] [address] PCP - General 06/13/16 Lyudmila Knox, RN Registered Nurse 04/14/17 Jennfier Escalona, RN Registered Nurse 05/10/17
--- OUTSIDE RECORDS SUMMARY | 2024-04-17 17:16 | XMS_ITS | Encounter Summary ---
Author Organization [facility] Address [address] [place] [address] Care Team Providers Care Band Straightener Name Role Phone Gadiel Zavala MD Primary Care Provider [phone] [phone] Lyudmila Knox RN Unavailable Unavailable Jennifer Escalona RN Unavailable Agustina vailable Encounter Details Date Type Department Care Team (Late st Contact Info) Description 01/30/2024 Telephone [facility] Pre Anesthesia Testing [address] [place] [address] Melly Vazquez, LOGAN Social History Tobacco Use Types Packs/Day Years Used Date Smoking Tobacco: Former Cigarettes Q uit: 04/14/1987 Smokeless Tobacco: Never Alcohol Use Standard Drinks/Week Comments Yes 0 (1 standard drink = 0.6 oz pur e alcohol) social [facility] Utilities Answer Date Recorded In the past 12 months has [employer], gas, oil, or water [employer] threatened to shut off services in your [...] often do you attend chur ch or episcopal services? Never 11/17/2023 Do you belong to any clubs o r organizations such as mormonism groups, unions, fraternal or athletic groups, or [...] were you homeless or living in a group home (including now)? No 11/17/2023 Personal Safety Answer Date Recorded Have you ever been in or are you currently in a harmful physical or emotional relationship or is someone making you feel afraid or unsafe? Denies 11/16/2023 Comments No Sex and Gender Information Value Date Recorded Sex Assigned at Not on file Legal Sex Female 3:22 AM AUTO TESTER Gender Identity Not on file Sexual Orientation Not on file documented as of this encounter Miscellaneous Notes * Telephone Encounter - Melly Vazquez RN - 01/30/2024 3:08 PM CDT Call placed to patient. Reminded of procedure on 02/08/2024 with arrival time of 9:30 A.M. at [facility] [place]. [email or web address], Rx per MD. Patient states she has received instructions on hermedications. Patient instructed if she has any questions to call her form building supervisor. Patient verbalized understanding. documented in this encounter [...] on filedocumented in this encounter Care Teams Band Straightener Relationship Specialty Start Date End Date Gadiel Zavala MD [address] [place] [place] [id number] PCP - General 06/13/16 Lydumila Knox, RN Registered Nurse 04/14/17 Jennifer Escalona, RN Registered Nurse 05/10/17 documented as of this encounter
--- OUTSIDE RECORDS SUMMARY | 2024-04-17 17:16 | XMS_ITS | Continuity of Care Document ---
Author Organization [facility] Address [address] [place] [address] Phone Care Team Providers Care Court Commissioner Name Role Phone Jorge Cevallos Unavailable Unavailable Procedures Procedure Date No Charge Glasses Check Office/outpatient Visit, Est Refraction Eye Exam & Treatment Refraction Advance Directives Directive Yes / No Effective Date File Name No Information Encounters Encounter Description Practice Location Reason(s) For Visit Diagnoses Date Provider Providers Copied on Encounter [facility], [address] [place] [address] [address], [place], [place], [id number], tel:[phone] SEC [facility] No Information 0 Ban Patel. [address] [facility] , [address], [place], [place], [facility], [place]. tel:[phone] Office/outpat ient Visit, Est [facility], [address] [place] [address] [address], [place], [place], [id number], [place] tel:[phone] SEC [facility] No Information [address] Ban Patel. [address] [facility] , [address], [place], [address], [place]. tel:[phone] [facility], [address] [place] [address] [address], [place], [place], [id number], tel:[phone] SEC [facility] No Information [address] Ban Patel. [address] [facility] , [address], [place], [address], [place]. tel:[phone] Family History Family Member Type Diagnosis Age [...]
--- OUTSIDE RECORDS SUMMARY | 2024-04-17 17:17 | XMS_ITS | Encounter Summary ---
Author Organization [facility] Healthcare Address [address] [place] [address] Care Team Providers Care Finishing Technician Name Role Phone Gadiel Zavala MD Primary Care Provider [phone] Lyudmila Knox RN Unavailable Unavailable Jennifer Escalona RN Unavailable Agustina vailable Reason for Visit * Cardiology (Routine) - Closed Specialty Diagnoses / Procedures Referred By Delores t Referred To Contact Diagnoses Paroxysmal atrial fibrillation (CMS/HCC) (HCC) Status post placement of implantable loop recorder Syncope and collapse Procedures DEVICE CHECK - REMOTE Bobo Perez MD Phone: tel: fax: [facility] Referral ID Status Reason Start Date Expiration Date Visits Re quested Visits Authorized [id number] Closed 08/09/2022 02/09/2024 1 1 Encounter Details Date Type Department Care Team (Latest Contact Info) Description 01/23/2023 8:20 AM CDT Ancillary Procedure [facility] Cardiology [address] [place] [phone] Paroxysmal atrial fibrillation (CMS/HCC) (HCC); Status post [...] on file Legal 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
--- OUTSIDE RECORDS SUMMARY | 2024-04-17 17:17 | XMS_ITS | Encounter Summary ---
Author Organization [facility] Address [address] [facility] [address] [place] [address] Care Team Providers Care Head Turbine Operator Name Role Phone Gadiel Zavala MD Primary Care Provider [phone] Lyudmila Knox RN Unavailable Unavailable Jennifer Escalona RN Unavailable Agustina vailable Reason for Referral * Cardiology (Routine) - Closed Specialty Diagnoses / Procedures Referred By Contac t Referred To Contact Diagnoses Paroxysmal atrial fibrillation (CMS/HCC) (HCC) Status post placement of implantable loop recorder Syncope and collapse Procedures DEVICE CHECK - REMOTE Bobo Perez MD Phone: tel: fax: [facility] Referral ID Status Reason Start Date Expiration Date Visits Re quested Visits Authorized [id number] Closed 08/09/2022 02/09/2024 1 1 * Cardiology (Routine) - Closed Specialty Diagnoses / Procedures Referred By Contac t Referred To Contact Diagnoses Paroxysmal atrial fibrillation (CMS/HCC) (HCC) Status post placement of implantable loop recorder Syncope and collapse Procedures DEVICE CHECK - REMOTE Bobo Perez MD Phone: tel: fax: [facility] Referral ID Status Reason Start Date Expiration Date Visits Re quested Visits Authorized [id number] Closed 08/09/2022 02/09/2024 1 1 * Cardiology (Routine) - Closed Specialty Diagnoses / Procedures Referred By Contac t Referred To Contact Diagnoses Paroxysmal atrial fibrillation (CMS/HCC) (HCC) Status post placement of implantable loop recorder Syncope and collapse Procedures DEVICE CHECK - REMOTE Bobo Perez MD Phone: tel: fax: [facility] Referral ID Status Reason Start Date Expiration Date Visits Re quested Visits Authorized [id number] Closed 08/09/2022 02/09/2024 1 1 * Cardiology (Routine) - Closed Specialty Diagnoses / Procedures Referred By Contac t Referred To Contact Diagnoses Paroxysmal atrial fibrillation (CMS/HCC) (HCC) Status post placement of implantable loop recorder Syncope and collapse Procedures DEVICE CHECK - REMOTE Bobo Perez MD Phone: tel: fax: [facility] Referral ID Status Reason Start Date Expiration Date Visits Re quested Visits Authorized [id number] Closed 08/09/2022 02/09/2024 1 1 * Cardiology (Routine) - Closed Specialty Diagnoses / Procedures Referred By Contac t Referred To Contact Diagnoses Paroxysmal atrial fibrillation (CMS/HCC) (HCC) Status post placement of implantable loop recorder Syncope and collapse Procedures DEVICE CHECK - REMOTE Bobo Perez MD Phone: tel: fax: [facility] Referral ID Status Reason Start Date Expiration Date Visits Re quested Visits Authorized [id number] Closed 08/09/2022 02/09/2024 1 1 * Cardiology (Routine) - Closed Specialty Diagnoses / Procedures Referred By Contac t Referred To Contact Diagnoses Paroxysmal atrial fibrillation (CMS/HCC) (HCC) Status post placement of implantable loop recorder Syncope and collapse Procedures DEVICE CHECK - REMOTE Bobo Perez MD Phone: tel: fax: [facility] Referral ID Status Reason Start Date Expiration Date Visits Re quested Visits Authorized [id number] Closed 08/09/2022 02/09/2024 1 1 * Cardiology (Routine) - Closed Specialty Diagnoses / Procedures Referred By Contac t Referred To Contact Diagnoses Paroxysmal atrial fibrillation (CMS/HCC) (HCC) Status post placement of implantable loop recorder Syncope and collapse Procedures DEVICE CHECK - IN OFFICE Bobo Perez MD Phone: tel: fax: [facility] Referral ID Status Reason Start Date Expiration Date Visits Re quested Visits Authorized [id number] Closed 08/09/2022 09/08/2023 1 1 Encounter Details Date Type Department Care Team (Late st Contact Info) Description 08/09/2022 Orders Only [facility] Cardiology [address] [facility] [address], [place] [address] Bobo Perez MD [address] [place] [address] [address] [place] [address] Paroxysmal atrial fibrillation (CMS/HCC) (HCC) [...] on file Legal Sex Female 3:22 AM BIOMEDICAL FIELD SERVICE ENGINEER Gender Identity Not on file Sexual Orientation Not on file documented as of this encounter Plan of Treatment Scheduled Orders Name Type Priority Associated Diagnoses Orde r Schedule DEVICE CHECK - IN OFFICE Cardiac Services Routine Paroxysmal atrial fibrillation (CMS/[facility]) Status post placement of implantable loop recorder [...] DEVICE CHECK - REMOTE (06/06/2023 10:03 AM BIOMEDICAL FIELD SERVICE ENGINEER) Anatomical Region Laterality Modality Other Narrative 06/12/2023 8:38 AM BIOMEDICAL FIELD SERVICE ENGINEER Medtronic REVEAL LinQ implanted August 08, 2022 [...] Continue to monitor remotely. Sonny Campos Device Plating Foreman Bobo Perez MD CV CARDIAC SERVICES PROC EDURES Final Result * DEVICE CHECK - REMOTE (04/19/2023 10:52 AM BIOMEDICAL FIELD SERVICE ENGINEER) Anatomical Region Laterality Modality Other Narrative 04/21/2023 8:07 AM BIOMEDICAL FIELD SERVICE ENGINEER Medtronic REVEAL LinQ implanted August 08, 2022 [...] monitor remotely. ? Sonny Campos ? Device Plating Foreman us Bobo Perez MD CV CARDIAC SERVICES PROC EDURES Final Result * DEVICE CHECK - REMOTE (03/22/2023 4:50 PM BIOMEDICAL FIELD SERVICE ENGINEER) Anatomical Region Laterality Modality Other Narrative 04/21/2023 12:26 PM BIOMEDICAL FIELD SERVICE ENGINEER Medtronic LNQ22 Loop Recorder. Dx; Syncope, Afib. [...] monitor remotely. ? Sonny McAlexnder ? Device Plating Foreman Bobo Perez MD CV CARDIAC SERVICES PROC [...] collapse documented in this encounter Care Teams Head Turbine Operator Relationship Specialty Start Date End Date Gadiel Zavala MD [address] [place], [place] [id number] PCP - General 06/13/16 Lyudmila Knox, RN Registered Nurse 04/14/17 Jennifer Escalona, LOGAN Registered Nurse 05/10/17 documented as of this encounter
--- OUTSIDE RECORDS SUMMARY | 2024-04-17 17:17 | XMS_ITS | Encounter Summary ---
Author Organization [facility] Healthcare Address [address] [place] [address] Care Team Providers Care Semiconductor Technician Name Role Phone Gadiel Zavala MD Primary Care Provider [phone] [phone] Lyudmila Knox RN Unavailable Unavailable Jennifer Escalona RN Unavailable Agustina vailable Reason for Visit * Cardiology (Routine) - Closed Specialty Diagnoses / Procedures Referred By Contmarianela t Referred To Contact Diagnoses Paroxysmal atrial fibrillation (CMS/HCC) (HCC) Status post placement of implantable loop recorder Syncope and collapse Procedures DEVICE CHECK - REMOTE Bobo Perez MD Phone: tel: fax: [facility] Referral ID Status Reason Start Date Expiration Date Visits Re quested Visits Authorized [id number] Closed 08/09/2022 02/09/2024 1 1 Encounter Details Date Type Department Care Team (Latest Contact Info) Description 06/05/2023 7:00 AM RN TRIAGE Ancillary Procedure [facility] Cardiology [address] [place] [phone] Paroxysmal atrial fibrillation (CMS/HCC) (HCC); Status post [...] on file Legal Sex Female 3:22 AM RN TRIAGE Gender Identity Not on file Sexual Orientation [...] CHECK - REMOTE Routine 06/06/2023 10:03 AM RN TRIAGE Paroxysmal atrial fibrillation (CMS/HCC) (HCC) Status post placement of implantable loop recorder Syncope and collapse documented in this encounter Results * DEVICE CHECK - REMOTE (06/06/2023 10:03 AM RN TRIAGE) Anatomical Region Laterality Modality Other Narrative 06/12/2023 8:38 AM RN TRIAGE Medtronic REVEAL LinQ implanted August 08, 2022 [...] Continue to monitor remotely. Sonny Campos Device Paperhanger Bobo Perez MD CV CARDIAC SERVICES PROC EDURES Final Result documented in this encounter Visit Diagnoses Diagnosis Paroxysmal atrial fibrillation (CMS/HCC) (HCC) Atrial fibrillation Status post placement of implantable loop recorder Syncope and collapse documented in this encounter Care Teams Semiconductor Technician Relationship Specialty Start Date End Date Gadiel Zavala MD [address] [address] PCP - General 06/13/16 Lyudmila Knox, RN Registered Nurse 04/14/17 Jennifer Escalona, RN Registered Nurse 05/10/17 documented as of this encounter
--- OUTSIDE RECORDS SUMMARY | 2024-04-17 17:17 | XMS_ITS | Encounter Summary ---
Author Organization [facility] Address [address] [facility] [address] [place] [address] Care Team Providers Care Integrity Specialist Name Role Phone Gadiel Zavala MD Primary Care Provider [phone] [phone] Lyudmila Knox RN Unavailable Unavailable Jennifer Escalona RN Unavailable Agustina vailable Encounter Details Date Type Department Care Team (Late st Contact Info) Description 12/14/2022 Telephone [facility] Cardiology [address] [facility] [address], [place] [address] Bobo Perez MD [address] [place] [address] [address] [place] [address] Social History Tobacco Use Types Packs/Day Years Used Date Smoking Tobacco: Former Cigarettes Q uit: 04/14/1987 Smokeless Tobacco: Never Alcohol Use Standard Drinks/Week Comments Yes 0 (1 standard drink = 0.6 oz pur e alcohol) social Comments No Sex and Gender Information Value Date Recorded Sex Assigned at Not on file Legal Sex Female 3:22 AM DIRECTOR SAFETY COUNCIL Gender Identity Not on file Sexual Orientation [...] CDT Pt's device showing Dc'd on the [employer] website, shows that the bluetooth may be [...] on filedocumented in this encounter Care Teams Integrity Specialist Relationship Specialty Start Date End Date Gadiel Zavala MD [address] [address] PCP - General 06/13/16 Lyudmila Knox, RN Registered Nurse 04/14/17 Jennifer Escalona, RN Registered Nurse 05/10/17 documented as of this encounter
--- OUTSIDE RECORDS SUMMARY | 2024-04-17 17:17 | XMS_ITS | Encounter Summary ---
Author Organization [facility] Healthcare Address [address] [place] [address] Care Team Providers Care Hunter Name Role Phone Gadiel Zavala MD Primary Care Provider [phone] Lyudmila Knox RN Unavailable Unavailable Jennifer Escalona RN Unavailable Agustina vailable Reason for Visit * Cardiology (Routine) - Closed Specialty Diagnoses / Procedures Referred By Delores t Referred To Contact Diagnoses Paroxysmal atrial fibrillation (CMS/HCC) (HCC) Syncope and collapse Procedures DEVICE CHECK - REMOTE Bobo Perez MD Phone: tel: fax: Referral ID Status Reason Start Date Expiration Date Visits Re quested Visits Authorized [id number] Closed 06/06/2023 12/04/2024 1 1 Encounter Details Date Type Department Care Team (Latest Contact Info) Description 09/04/2023 7:30 AM CDT Ancillary Procedure [facility] Cardiology [address] [place] [phone] Status post placement of implantable loop recorder [...] on file Legal Sex Female 3:22 AM PARACHUTE PANEL JOINER Gender Identity Not on file Sexual Orientation [...] collapse documented in this encounter Care Teams Hunter Relationship Specialty Start Date End Date Gadiel Zavala MD [address] [employer] [address] PCP - General 06/13/16 Lyudmila Knox, RN Registered Nurse 04/14/17 Jennifer Escalona, RN Registered Nurse 05/10/17 documented as of this encounter
--- OUTSIDE RECORDS SUMMARY | 2024-04-17 17:17 | XMS_ITS | Encounter Summary ---
Author Organization [facility] Healthcare Address [address] [place] [address] Care Team Providers Care Yam Curer Name Role Phone Gadiel Zavala MD Primary Care Provider +1 -[phone] Lyudmila Knox RN Unavailable Unavailable Jennifer Escalona RN Unavailable Agustina vailable Reason for Visit * Auth/Cert Specialty Diagnoses / Procedures Referred By Delores t Referred To Contact Diagnoses Paroxysmal atrial fibrillation (CMS/HCC) (HCC) Paroxysmal atrial fibrillation (CMS/HCC) (HCC) [I48.0] Procedures PERC MAURA CLOSE W/IMPLANT [id number] Referral ID Status Reason Start Date Expiration Date Visits Re quested Visits Authorized [id number] 1 1 Encounter Details Date Type Department Care Team (Latest Contact Info) Description 11/16/2023 10:59 AM CDT - 11/16/2023 11:59 PM CDT Hospital Encounter [facility] Cardiac Catheterization Lab [address] [place] [address] Discharge Disposition: Discharge to home or self care Social History Tobacco Use Types Packs/Day Years Used Date Smoking Tobacco: Former Cigarettes Q uit: 04/14/1987 Smokeless Tobacco: Never Alcohol Use Standard Drinks/Week Comments Yes 0 (1 standard drink = 0.6 oz pur e alcohol) social [facility] Utilities Answer Date Recorded In [...] often do you attend chur ch or temple services? Never 11/17/2023 Do you belong to any clubs o r organizations such as pentecostalism groups, unions, fraternal or athletic groups, or [...] any time in the past 12 m [facility], were you homeless or living in a correction (including now)? No 11/17/2023 Personal Safety Answer Date Recorded Have you ever been in or are you currently in a harmful physical or emotional relationship or is someone making you feel afraid or unsafe? Denies 11/16/2023 Comments No Sex and Gender Information Value Date Recorded Sex Assigned at Not on file Legal Sex Female 3:22 AM CAREER CENTER ADVISOR Gender Identity Not on file Sexual [...] Author Increase physical activity Exercise No Lyudmila Konx, RN Note: She is doing arm and leg exercises from Pt. She was in rehab after neck surgery for 2 weeks in March 2017 documented as of this encounter Visit Diagnoses Not on filedocumented in this encounter Care Teams Yam Curer Relationship Specialty Start Date End Date Gadiel Zavala MD [address] [address] PCP - General 06/13/16 Lyudmila Knox, RN Registered Nurse 04/14/17 Jennifer Escalona, LOGAN Registered Nurse 05/10/17 documented as of this encounter
--- OUTSIDE RECORDS SUMMARY | 2024-04-17 17:17 | XMS_ITS | Encounter Summary ---
Author Organization [facility] Healthcare Address [address] [place] [address] Care Team Providers Care Soaker Meat Name Role Phone Gadiel Zavala MD Primary Care Provider +1 -[phone] Lyudmila Knox RN Unavailable Unavailable Jennifer Escalona RN Unavailable Agustina vailable Reason for Visit * Cardiology (Routine) - Closed Specialty Diagnoses / Procedures Referred By Contmarianela t Referred To Contact Diagnoses Paroxysmal atrial fibrillation (CMS/HCC) (HCC) Status post placement of implantable loop recorder Syncope and collapse Procedures DEVICE CHECK - REMOTE Bobo Perez MD Phone: tel: fax: [facility] Referral ID Status Reason Start Date Expiration Date Visits Re quested Visits Authorized [id number] Closed 08/09/2022 02/09/2024 1 1 Encounter Details Date Type Department Care Team (Latest Contact Info) Description 03/06/2023 11:15 AM WELL DRILL OPERATOR ROTARY DRILL Ancillary Procedure [facility] Cardiology [address] [phone] Paroxysmal atrial fibrillation (CMS/HCC) (HCC); Status post [...] on file Legal Sex Female 3:22 AM WELL DRILL OPERATOR ROTARY DRILL Gender Identity Not on file Sexual Orientation [...] CHECK - REMOTE Routine 03/22/2023 4:50 PM WELL DRILL OPERATOR ROTARY DRILL Paroxysmal atrial fibrillation (CMS/HCC) (HCC) Status post placement of implantable loop recorder Syncope and collapse documented in this encounter Results * DEVICE CHECK - REMOTE (03/22/2023 4:50 PM WELL DRILL OPERATOR ROTARY DRILL) Anatomical Region Laterality Modality Other Narrative 04/21/2023 12:26 PM WELL DRILL OPERATOR ROTARY DRILL Medtronic [id number] Loop Recorder. Dx; Syncope, Afib. [...] collapse documented in this encounter Care Teams Soaker Meat Relationship Specialty Start Date End Date Gadiel Zavala MD [address] [address] PCP - General 06/13/16 Lyudmila Knox, RN Registered Nurse 04/14/17 Jennifer Escalona, LOGAN Registered Nurse 05/10/17 documented as of this encounter
--- OUTSIDE RECORDS SUMMARY | 2024-04-17 17:17 | XMS_ITS | Encounter Summary ---
Author Organization [facility] Address [address] [address] Care Team Providers Care Anglesmith Helper Name Role Phone Gadiel Zavala MD Primary Care Provider +1 -[phone] Lyudmila Knox RN Unavailable Unavailable Jennifer Escalona RN Unavailable Agustina vailable Reason for Visit * Cardiology (Routine) - Closed Specialty Diagnoses / Procedures Referred By Contac t Referred To Contact Diagnoses Paroxysmal atrial fibrillation (CMS/HCC) (HCC) Status post placement of implantable loop recorder Syncope and collapse Procedures DEVICE CHECK - REMOTE Bobo Perez MD Phone: tel: fax: [facility] Referral ID Status Reason Start Date Expiration Date Visits Re quested Visits Authorized [id number] Closed 08/09/2022 02/09/2024 1 1 Encounter Details Date Type Department Care Team (Latest Contact Info) Description 10/31/2022 10:45 AM CDT Ancillary Procedure [facility] Cardiology [address] [facility] [address] [place] [phone] Paroxysmal atrial fibrillation (CMS/HCC) (HCC); Status post [...] file Legal Sex Female 3:22 AM SOIL BIOLOGY TEACHER Gender Identity Not on file Sexual Orientation [...] monitor remotely. ? Sonny McAlexnder ? Device Employment Clerk us Bobo Perez MD [facility] PROC EDURES Final Result documented in this encounter Visit Diagnoses Diagnosis Paroxysmal atrial fibrillation (CMS/HCC) (HCC) Atrial fibrillation Status post placement of implantable loop recorder Syncope and collapse documented in this encounter Care Teams Anglesmith Helper Relationship Specialty Start Date End Date Gadiel Zavala MD [address] [place] [id number] PCP - General 06/13/16 Lyudmila Knox, RN Registered Nurse 04/14/17 Jennifer Escalona, RN Registered Nurse 05/10/17 documented as of this encounter
--- OUTSIDE RECORDS SUMMARY | 2024-04-17 17:17 | XMS_ITS | Encounter Summary ---
Author Organization [facility] Address [address] [facility] [address] [place] [address] Care Team Providers Care Floor Assembler Name Role Phone Gadiel Zavala MD Primary Care Provider +1 -[phone] Lyudmila Knox RN Unavailable Unavailable Jennifer Escalona RN Unavailable Agustina vailable Reason for Visit * Reason Comments S/P loop recorder explant On 08/08/22 Atrial Fibrillation Hypertension Encounter Details Date Type Department Care Team (Latest Contact Info) Description 10/07/2022 11:15 AM CDT Office Visit [facility] Cardiology [address] [place] [address] Bobo Perez MD [address] [facility] [address] [place], [place] [id number] Paroxysmal atrial fibrillation (CMS/HCC) (HCC) (Primary Dx); [...] on file Legal Sex Female 3:22 AM MECHANICAL ARTIST Gender Identity Not on file Sexual Orientation [...] episode of AFib with RVR. Thirty day podiatric foot and ankle specialist to assess for recurrent AFib further risk stratification. Recommendations to follow. -she continues to have frequent falls. Thirty day podiatric foot and ankle specialist without documented recurrence of AFib/flutter. However, patient [...] This is a patient who presented to [facility] for laparoscopic right hemicolectomy on October 13, [...] her hospitalization. 11/17/2021 Hospital follow-up with [facility] INSIDE METER TESTER - Kaitlin Bond comes to the office [...] syncope. Taking ASA 81mg daily. Thirty day podiatric foot and ankle specialist worn no AFib noted. 10/07/22 no issues [...] Hyperlipidemia ??? Hypertension ??? Hypothyroidism ??? Neuropathy ([facility]) SOCIAL HISTORY reports that she quit smoking [...] Cholesterol Total, POC 240 mg/dL 05/04/22 AMBULATORY COMPOSITE BOAT BUILDER REPORT Type of monitor : 30 day [...] EKG, electronic medical record, and bloodwork/lipids. Reviewed [facility] records, 12 lead EKG 10/16/2021 AFib RVR [address] abnormality consider ischemia Harleen Perez MD, [facility] This note is dictated and transcribed using [employer] Direct Software. Hha variancesmay occur. Despite proofreading, typographical errors may [...] documented as of this encounter Care Teams Floor Assembler Relationship Specialty Start Date End Date Gadiel Zavala MD [address] [address] PCP - General 06/13/16 Lyudmila Knox, RN Registered Nurse 04/14/17 Jennifer Escalona, RN Registered Nurse 05/10/17 documented as of this encounter
--- OUTSIDE RECORDS SUMMARY | 2024-04-17 17:17 | XMS_ITS | Encounter Summary ---
Author Organization [facility] Address [address] [address] Care Team Providers Care Cut Off Man Name Role Phone Gadiel Zavala MD Primary Care Provider +1 [phone] Lyudmila Knox RN Unavailable Unavailable Jennifer Escalona RN Unavailable Agustina vailable Encounter Details Date Type Department Care Team (Late st Contact Info) Description 01/23/2023 Telephone [facility] Cardiology [address] [facility] [address], [place] [address] Bobo Perez MD [address] [place] [address] [address] [place] [address] Social History Tobacco Use Types Packs/Day Years Used Date Smoking Tobacco: Former Cigarettes Q uit: 04/14/1987 Smokeless Tobacco: Never Alcohol Use Standard Drinks/Week Comments Yes 0 (1 standard drink = 0.6 oz pur e alcohol) social Comments No Sex and Gender Information Value Date Recorded Sex Assigned at Not on file Legal Sex Female 3:22 AM TRANSFORMER SHOP SUPERVISOR Gender Identity Not on file Sexual Orientation Not on file documented as of this encounter Miscellaneous Notes * Telephone Encounter - Annie Lew RN - 03/14/2023 1:51 PM CST Noted. SFORMER SHOP SUPERVISOR * Telephone Encounter - OAnnia Gonzales MA [...] it up. Pt verbalizes understanding. JOSHUA Valencia SFORMER SHOP SUPERVISOR * Telephone Encounter - Annia Shaw MA - 03/09/2023 11:21 AM TRANSFORMER SHOP SUPERVISOR Pt still showing Dc'd on the website, [...] remote download. Pt verbalizes understanding. Will monitor SFORMER SHOP SUPERVISOR * Telephone Encounter - Annia Shaw MA [...] on filedocumented in this encounter Care Teams Cut Off Man Relationship Specialty Start Date End Date Gadiel Zavala MD [address] [address] PCP - General 06/13/16 Lyudmila Knox, RN Registered Nurse 04/14/17 Jennifer Escalona, LOGAN Registered Nurse 05/10/17 documented as of this encounter
--- OUTSIDE RECORDS SUMMARY | 2024-04-17 17:17 | XMS_ITS | Encounter Summary ---
Author Organization [facility] Healthcare Address [address] [place] [address] Care Team Providers Care Lead Injection Mold Technician Name Role Phone Gadiel Zavala MD Primary Care Provider +1 -[phone] Lyudmila Knox RN Unavailable Unavailable Jennifer Escalona RN Unavailable Agustina vailable Reason for Visit * Reason Comments Follow-up 1 mo Encounter Details Date Type Department Care Team (Late st Contact Info) Description 10/16/2023 10:30 AM CDT Office Visit [facility] Cardiology [address] [place] [address] Sandra Cohn NP [address] [place] [address] PAF (paroxysmal atrial fibrillation) (CMS/HCC) [...] on file Legal Sex Female 3:22 AM CONFIGURATOR Gender Identity Not on file Sexual Orientation [...] original note were not included. [facility] Cardiology [address] [place] [address] Date of Visit: 10/16/2023 Patient ID: Kaitlin [...] This is a patient who presented to [facility] for laparoscopic right hemicolectomy on October 13, [...] her hospitalization. 11/17/2021 Hospital follow-up with [facility] PLANETARIUM TECHNICIAN - Kaitlin Bond comes to the office [...] syncope. Taking ASA 81mg daily. Thirty day ultimate hoops referee worn no AFib noted. 10/07/22 no issues [...] but not helping. 10/16/2023 office visit with PLANETARIUM TECHNICIAN: She returns for follow-up accompanied by her after having heart CT last week. She had another fall 5 days ago with injury to the right leg and hematoma, was evaluated at [facility] ER. She has ongoing lightheadedness that is [...] with scheduling her for the procedure at [facility]. She endorses an atypical chest pain that do not feel needs further evaluation at this point in time. Continue to monitor. Keep the previously scheduled follow-up visit with Dr. Leggett in December. Dr. Leggett will assume her cardiac care now that Dr. Perez has left the practice. 10/16/2023 YASMINE Rankin- Nurse Practitioner with [facility] Cardiology This note is dictated and transcribed using [employer] Direct Software. Emd Teacher variancesmay occur. Despite proofreading, typographical errors may [...] 03/01/2017 added in this encounter Care Teams Lead Injection Mold Technician Relationship Specialty Start Date End Date Gadiel Zavala MD [address] [place] [address] PCP - General 06/13/16 Lyudmila Knox, RN Registered Nurse 04/14/17 Jennifer Escalona, RN Registered Nurse 05/10/17 documented as of this encounter
--- OUTSIDE RECORDS SUMMARY | 2024-04-17 17:17 | XMS_ITS | Encounter Summary ---
Author Organization [facility] Healthcare Address [address] [place] [address] Care Team Providers Care Assortment Planner Name Role Phone Gadiel Zavala MD Primary Care Provider +1 -[phone] Lyudmila Knox RN Unavailable Unavailable Jennifer Escalona RN Unavailable Agustina vailable Reason for Referral * MRI/CAT/PET Scan (Routine) - Closed Specialty Diagnoses / Procedures Referred By Contac t Referred To Contact Radiology Diagnoses PAF (paroxysmal atrial fibrillation) (CMS/HCC) (HCC) Frequent falls Contraindication to anticoagulation therapy Procedures CT Heart Morphology W Contrast Emilio Leggett MD [address] [address] Phone: tel: fax: [address] [phone] Referral ID Status Reason Start Date Expiration Date Visits Re quested Visits Authorized [id number] Closed 09/26/2023 10/25/2024 1 1 Reason for Visit * MRI/CAT/PET Scan (Routine) - Closed Specialty Diagnoses / Procedures Referred By Contac t Referred To Contact Radiology Diagnoses PAF (paroxysmal atrial fibrillation) (CMS/HCC) (HCC) Frequent falls Contraindication to anticoagulation therapy Procedures CT Heart Morphology W Contrast Emilio Leggett MD [address] [facility] [address] [place] [address] Phone: tel: fax: [address] [phone] Referral ID Status Reason Start Date Expiration Date Visits Re quested Visits Authorized [id number] Closed 09/26/2023 10/25/2024 1 1 Encounter Details Date Type Department Care Team (Latest Contact Info) Description 10/09/2023 12:09 PM CDT - 10/09/2023 11:59 PM CDT Hospital Encounter [facility] Imaging and Radiology [address] [place] [id number] PAF (paroxysmal atrial fibrillation) (CMS/HCC) (HCC); Frequent [...] on file Legal Sex Female 3:22 AM IMMIGRATION MANAGER Gender Identity Not on file Sexual [...] 01/2024 documented in this encounter Care Teams Assortment Planner Relationship Specialty Start Date End Date Gadiel Zavala MD [address] [address] PCP - General 06/13/16 Lyudmila Knox, RN Registered Nurse 04/14/17 Jennifer Escalona, RN Registered Nurse 05/10/17 documented as of this encounter
--- OUTSIDE RECORDS SUMMARY | 2024-04-17 17:17 | XMS_ITS | Encounter Summary ---
Author Organization [facility] Address [address] [place] [address] Care Team Providers Care Wood Casket Maker Name Role Phone Gadiel Zavala MD Primary Care Provider +1 -[phone] Lyudmila Knox RN Unavailable Unavailable Jennifer Escalona RN Unavailable Agustina vailable Reason for Referral * Cardiology (Routine) - Authorized Specialty Diagnoses / Procedures Referred By Contac t Referred To Contact Cardiology Diagnoses Paroxysmal atrial fibrillation (CMS/HCC) (HCC) Syncope and collapse Procedures DEVICE CHECK - REMOTE Bobo Perez MD Phone: tel: fax: [facility] Referral ID Status Reason Start Date Expiration Date V isits Requested Visits Authorized [id number] Authorized 06/06/2023 12/04/2024 1 1 LAYER HAND * Cardiology (Routine) - Authorized Specialty Diagnoses / Procedures Referred By [facility] Referred To Contact Cardiology Diagnoses Paroxysmal atrial fibrillation (CMS/HCC) (HCC) Syncope and collapse Procedures DEVICE CHECK - IN OFFICE Bobo Perez MD Phone: tel: fax: [facility] Referral ID Status Reason Start Date Expiration Date V isits Requested Visits Authorized [id number] Authorized 06/06/2023 07/05/2024 1 1 LAYER HAND * Cardiology (Routine) - Authorized Specialty Diagnoses / Procedures Referred By Contac t Referred To Contact Cardiology Diagnoses Paroxysmal atrial fibrillation (CMS/HCC) (HCC) Syncope and collapse Procedures DEVICE CHECK - REMOTE Bobo Perez MD Phone: tel: fax: [facility] Referral ID Status Reason Start Date Expiration Date V isits Requested Visits Authorized [id number] Authorized 06/06/2023 12/04/2024 1 1 LAYER HAND * Cardiology (Routine) - Closed Specialty Diagnoses / Procedures Referred By Contac t Referred To Contact Diagnoses Paroxysmal atrial fibrillation (CMS/HCC) (HCC) Syncope and collapse Procedures DEVICE CHECK - REMOTE Bobo Perez MD Phone: tel: fax: [facility] Medical [facility] Referral ID Status Reason Start Date Expiration Date Visits Re quested Visits Authorized [id number] Closed 06/06/2023 12/04/2024 1 1 LAYER HAND * Cardiology (Routine) - Closed Specialty Diagnoses / Procedures Referred By Contac t Referred To Contact Diagnoses Paroxysmal atrial fibrillation (CMS/HCC) (HCC) Syncope and collapse Procedures DEVICE CHECK - REMOTE Bobo Perez MD Phone: tel: fax: Referral ID Status Reason Start Date Expiration Date Visits Re quested Visits Authorized [id number] Closed 06/06/2023 12/04/2024 1 1 LAYER HAND * Cardiology (Routine) - Closed Specialty Diagnoses / Procedures Referred By Contac t Referred To Contact Diagnoses Paroxysmal atrial fibrillation (CMS/HCC) (HCC) Syncope and collapse Procedures DEVICE CHECK - REMOTE Bobo Perez MD Phone: tel: fax: Referral ID Status Reason Start Date Expiration Date Visits Re quested Visits Authorized [id number] Closed 06/06/2023 12/04/2024 1 1 LAYER HAND Encounter Details Date Type Department Care Team (Late st Contact Info) Description 06/06/2023 Orders Only [facility] Cardiology [address] [facility] [address] [place] [address] [place] [address] [place] [address] [address] [place] [address] Paroxysmal atrial fibrillation (CMS/HCC) (HCC) [...] file Legal Sex Female 3:22 AM SOLE LAYER HAND Gender Identity Not on file Sexual Orientation [...] DEVICE CHECK - REMOTE (06/06/2023 10:10 AM SOLE LAYER HAND) Anatomical Region Laterality Modality Other Narrative 07/24/2023 [...] Continue to monitor remotely. Sonny Reymundonder Device Dough Molder Hand Bobo Perez MD CV CARDIAC SERVICES PROC [...] collapse documented in this encounter Care Teams Wood Casket Maker Relationship Specialty Start Date End Date Gadiel Zavala MD [address] [address] PCP - General 06/13/16 Lyudmila Knox, RN Registered Nurse 04/14/17 Jennifer Escalona, RN Registered Nurse 05/10/17 documented as of this encounter
--- OUTSIDE RECORDS SUMMARY | 2024-04-17 17:17 | XMS_ITS | Encounter Summary ---
Author Organization [facility] Healthcare Address [address] [place] [address] Care Team Providers Care Physical Optics Teacher Name Role Phone Gadiel Zavala MD Primary Care Provider +1 -[phone] Lyudmila Knxo RN Unavailable Unavailable Jennifer Escalona RN Unavailable Agustina vailable Encounter Details Date Type Department Care Team (Late st Contact Info) Description 09/26/2023 Telephone [facility] Cardiology [address] [place] [phone] Emilio Leggett MD [address] [place] [address] Social History Tobacco Use Types Packs/Day [...] on file 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 documented in this encounter Plan of Treatment [...] on filedocumented in this encounter Care Teams Physical Optics Teacher Relationship Specialty Start Date End Date Gadiel Zavala MD [address] [address] PCP - General 06/13/16 Lyudmila Knox, RN Registered Nurse 04/14/17 Jennifer Escalona, RN Registered Nurse 05/10/17 documented as of this encounter
--- OUTSIDE RECORDS SUMMARY | 2024-04-17 17:17 | XMS_ITS | Encounter Summary ---
Author Organization [facility] Address [address] [facility] [address] [place] [address] Care Team Providers Care Coil Finisher Name Role Phone Gadiel Zavala MD Primary Care Provider +1 -[phone] Lyudmila Knox RN Unavailable Unavailable Jennifer Escalona RN Unavailable Agustina vailable Reason for Visit * Reason Comments Wound Check Encounter Details Date Type Department Care Team (Latest Contact Info) Description 08/15/2022 9:45 AM CDT Clinical Support [facility] Cardiology [address] [facility] [address] [place] [address] Visit for wound check (Primary [...] on file 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
--- OUTSIDE RECORDS SUMMARY | 2024-04-17 17:17 | XMS_ITS | Encounter Summary ---
Author Organization [facility] Healthcare Address [address] [place] [address] Care Team Providers Care Coal Passer Name Role Phone Gadiel Zavala MD Primary Care Provider +1 -[phone] Lyudmila Knox RN Unavailable Unavailable Jennifer Escalona RN Unavailable Agustina vailable Reason for Visit * Cardiology (Routine) - Closed Specialty Diagnoses / Procedures Referred By Delores t Referred To Contact Diagnoses Paroxysmal atrial fibrillation (CMS/HCC) (HCC) Syncope and collapse Procedures DEVICE CHECK - REMOTE Bobo Perez MD Phone: tel: fax: [facility] Group Referral ID Status Reason Start Date Expiration Date Visits Re quested Visits Authorized [id number] Closed 06/06/2023 12/04/2024 1 1 Encounter Details Date Type Department Care Team (Latest Contact Info) Description 10/23/2023 7:45 AM CDT Ancillary Procedure [facility] Cardiology [address] [place] [phone] Status post placement of implantable loop [...] on file 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
--- OUTSIDE RECORDS SUMMARY | 2024-04-17 17:17 | XMS_ITS | Encounter Summary ---
Author Organization [facility] Address [address] [address] Care Team Providers Care Motor Vehicle Salesperson Name Role Phone Gadiel Zavala MD Primary Care Provider [phone] [phone] Lyudmila Knox RN Unavailable Unavailable Jennifer Escalona RN Unavailable Agustina vailable Reason for Visit * Cardiology (Routine) - Closed Specialty Diagnoses / Procedures Referred By Contac t Referred To Contact Diagnoses Paroxysmal atrial fibrillation (CMS/HCC) (HCC) Status post placement of implantable loop recorder Syncope and collapse Procedures DEVICE CHECK - REMOTE Bobo Perez MD Phone: tel: fax: [facility] Referral ID Status Reason Start Date Expiration Date Visits Re quested Visits Authorized [id number] Closed 08/09/2022 02/09/2024 1 1 Encounter Details Date Type Department Care Team (Latest Contact Info) Description 09/12/2022 11:45 AM CDT Ancillary Procedure [facility] Cardiology [address] [facility] [address] [place] [phone] Paroxysmal atrial fibrillation (CMS/HCC) (HCC); Status post [...] on file 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
--- OUTSIDE RECORDS SUMMARY | 2024-04-17 17:17 | XMS_ITS | Encounter Summary ---
Author Organization [facility] Healthcare Address [address] [place] [address] Care Team Providers Care Toy Maker Name Role Phone Gadiel Zavala MD Primary Care Provider [phone] [phone] Lyudmila Knox RN Unavailable Unavailable Jennifer Escalona RN Unavailable Agustina vailable Encounter Details Date Type Department Care Team (Late st Contact Info) Description 11/07/2023 12:15 PM CDT Pre-Admission Testing [facility] Pre Anesthesia Testing [address] [place] [address] Anesthesia Record Procedure Summary Procedure Name Responsible Anesthesiologist Anesthesia Start Time Anesthesia Stop Time PERC MAURA CLOSE W/IMPLANT [address] Zuhair Kyle MD 11/16/23 1114 11/16/23 1321 [...] on file 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 We hope that the following information will help make your visit a pleasant one. Surgery Date: 11/16/23 Arrive at 8:00am [facility] Surgery [place] [facility] (look for sign reading ???EM[facility]GENCY - SURGERY CENTER?? ) [address] [place] [address] Before your surgery: Notify your doctor of [...] insurance cards, and medication list (including all ciaq-hjc-vxaqium medications) with you. Prescriptions can be filled [...] PM CDT) 11/07/2023 1:09 PM CDT Narrative [facility] - 11/07/2023 1:15 PM CDT Vent Rate: 65 bpm RR Interval: 920 msec NM Interval: 155 msec QRS Duration: 81 msec QT Interval: 409 msec QTC Interval: 420 msec P-R-T [place]: 18 - 10 - 13 degrees IMPRESSION: SINUS RHYTHM NORMAL ECG Electronically Signed By: Evaristo Gibbs MD us Emilio Leggett MD ECG ORDERABLES Final Result [facility] * eGFR (11/07/2023 12:44 PM CDT) eGFR [...] MD LAB BLOOD ORDERABLES Final Resul t [facility] [address] Department [place] [address] * Differential, auto (11/07/2023 12:44 PM CDT) Neutrophil abs 4.5 1.5 - 6.5 K/cumm Imm gran abs 0.0 0.0 - 0.1 K/cumm [facility] Lymphocyte abs 1.3 0.8 - 3.3 K/cumm [facility] Monocyte abs 0.4 0.2 - 0.8 K/cumm [facility] Eosinophil abs 0.1 0.0 - 0.5 K/cumm [facility] Basophil abs 0.0 0.0 - 0.1 K/cumm [facility] Neutrophil pct 71.6 % [facility] Comment: Interpretive Data Percent cell [...] MD LAB BLOOD ORDERABLES Final Resul t [facility] [address] Department [place] [address] * (ABNORMAL) Comprehensive metabolic panel (11/07/2023 12:44 PM CDT) Sodium 133(L) 135 - 145 mmol/L Potassium, pl 4.2 3.3 - 4.9 mmol/L [facility] Chloride 94(L) 97 - 110 mmol/L [facility] CO2 27 22 - 32 mmol/L [facility] Anion gap 12 2 - 15 mmol/L [facility] BUN 7 6 - 25 mg/dL [facility] Creatinine 0.64 0.60 - 1.10 mg/dL [facility] Glucose 98 70 - 199 mg/dL CERNER [...] ORDERABLES Final Resul t Performing Organization Address City/[facility] Co de Phone Number [facility] [address] [address] Department [place] [address] * aPTT (11/07/2023 12:44 PM CDT) aPTT 32 28 - 38 sec Comment: Interpretive Data Heparin therapeutic range: 66.0 - 100.0 seconds. Range based on correlation with therapeutic heparin activity range of 0.3 - 0.7 Units/mL. Current interpretive data was last revised on 2023. Blood 11/07/2023 12:4 4 PM CDT 11/07/2023 1:17 PM CDT us Emiloi Leggett MD LAB BLOOD ORDERABLES Final Resul t Performing Organization Address City/[facility]/ZIP Co de Phone Number [facility] [address] [address] Department [place] [address] * Protime-INR (11/07/2023 12:44 PM CDT) Pathologist [facility] PT 10.5 10.3 - 13.7 sec INR 0.92 0.90 - 1.20 [facility] Comment: Interpretive data Oral anticoagulant therapeutic ranges: [...] ORDERABLES Final Resul t Performing Organization Address [facility] Co de Phone Number [facility] [address] [address] Department [place] [address] * CBC with auto differential (11/07/2023 12:44 PM CDT) Pathologist [facility] WBC 6.2 3.8 - 9.9 K/cumm Hgb 12.8 11.9 - 15.5 g/dL [facility] Hct 39.5 35.6 - 45.5 % [facility] Plt 316 150 - 400 K/cumm [facility] MPV 9.5 9.1 - 12.3 fL [facility] RBC 4.28 3.90 - 5.20 M/cumm [facility] MCV 92.3 81.3 - 96.4 fL [facility] MCH 29.9 27.1 - 33.3 pg [facility] MCHC 32.4 32.3 - 35.7 g/dL [facility] RDW CV 14.1 11.1 - 14.9 % [facility] RDW SD 47.6 35.7 - 48.1 fL [facility] NRBC abs 0.00 0.00 - 0.01 K/cumm [facility] Blood 11/07/2023 12:4 4 PM CDT 11/07/2023 1:17 PM CDT Emilio Leggett MD LAB BLOOD ORDERABLES Final Resul t Performing Organization Address City/[facility]/ZIP Co de Phone Number [facility] [place] [phone] [address] Department [place] [address] * Type and screen (11/07/2023 12:44 PM CDT) Zoraida, indirect Negative ABO Rh A Positive [facility] Blood 11/07/2023 12:4 4 PM CDT 11/07/2023 1:17 PM CDT Narrative [facility] - 11/07/2023 2:08 PM CDT Has the patient had Daratumumab or Isatuximab in the past 6 months?->Unknown Emilio Leggett MD LAB BLOOD BANK TEST ORDERABLES F inal Result Performing Organization Address City/[facility] Co de Phone Number [facility] [address] Department [place] [address] documented in this encounter Visit Diagnoses Not [...] breakfast added in this encounter Care Teams Toy Maker Relationship Specialty Start Date End Date Gadiel Zavala MD [address] [address] PCP - General 06/13/16 Lyudmila Knox, RN Registered Nurse 04/14/17 Jennifer Escalona, RN Registered Nurse 05/10/17 documented as of this encounter
--- OUTSIDE RECORDS SUMMARY | 2024-04-17 17:17 | XMS_ITS | Encounter Summary ---
Author Organization [facility] Healthcare Address [address] [place] [address] Care Team Providers Care Customer Care Associate Name Role Phone Gadiel Zavala MD Primary Care Provider [phone] [phone] Lyudmila Knox RN Unavailable Unavailable Jennifer Escalona RN Unavailable Agustina vailable Reason for Referral * MRI/CAT/PET Scan (Routine) - Closed Specialty Diagnoses / Procedures Referred By Contac t Referred To Contact Radiology Diagnoses PAF (paroxysmal atrial fibrillation) (CMS/HCC) (HCC) Frequent falls Contraindication to anticoagulation therapy Procedures CT Heart Morphology W Contrast Emilio Leggett MD [address] [place] [address] [address] [address] Phone: tel: fax: [address] [address] Referral ID Status Reason Start Date Expiration Date Visits Re quested Visits Authorized [id number] Closed 09/26/2023 10/25/2024 1 1 Reason for Visit * Reason Comments New Patient Encounter Details Date Type Department Care Team (Latest Contact Info) Description 09/26/2023 9:45 AM CDT Office Visit [facility] Cardiology [address] [facility] [address] [facility] [id number] Emilio Leggett MD [address] [address] PAF (paroxysmal atrial fibrillation) (CMS/HCC) [...] on file 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 after she had colon cancer surgery. She states that her colon cancer is in remission. Subsequently, patient had implantable potline monitor which showed paroxysmal atrial fibrillation. She [...] EF more than 70%. 10/16/2021; Dr. Perez, [facility] Thirty day event monitor-Predominant underlying rhythm is sinus rhythm, average heart rate 66 beatsper minute. Occasional PACs and PVCs. No atrial fibrillation or flutter was noted. No symptoms reported. 03/29/2022-04/30/2022 [employer] implantable potline monitor---10 Tachy: ECGs show AF w/ RVR; [...] for this visit: PAF (paroxysmal atrial fibrillation) ([facility]) ([facility]) (Primary) - CT Heart Morphology [...] Consult placed for structural heart team at [facility]. -blood pressure is well controlled with losartan, metoprolol succinate. -levothyroxine for hypothyroidism, management as per PCP. -heart healthy diet, fall precautions. -personally reviewed previous records including previous cardiology notes, labs, outside echo from [facility], EKG, ambulatory potline monitor. - follow up in about 3 months or sooner if necessary. Emilio Leggett MD 09/26/23 Voice recognition software was used to complete this document, therefore, patternmaker plaster variances may occur. documented in this encounter [...] 09/26/2023 documented in this encounter Care Teams Customer Care Associate Relationship Specialty Start Date End Date Gadiel Zavala MD [address] [place] [place] [address] PCP - General 06/13/16 Lyudmila Knox, RN Registered Nurse 04/14/17 Jennifer Escalona, RN Registered Nurse 05/10/17 documented as of this encounter
--- OUTSIDE RECORDS SUMMARY | 2024-04-17 17:17 | XMS_ITS | Encounter Summary ---
Author Organization [facility] Healthcare Address [address] [place] [address] Care Team Providers Care Production Assembly Operator Name Role Phone Gadiel Zavala MD Primary Care Provider [phone] [phone] Lyudmila Knox RN Unavailable Unavailable Jennifer Escalona RN Unavailable Agustina vailable Reason for Visit * Auth/Cert Specialty Diagnoses / Procedures Referred By Delores t Referred To Contact Diagnoses Paroxysmal atrial fibrillation (CMS/HCC) (HCC) Paroxysmal atrial fibrillation (CMS/HCC) (HCC) [I48.0] Procedures PERC MAURA CLOSE W/IMPLANT [id number] Referral ID Status Reason Start Date Expiration Date Visits Re quested Visits Authorized [id number] 1 1 Encounter Details Date Type Department Care Team (Late st Contact Info) Description 11/16/2023 11:14 AM CDT Anesthesia Event [facility] Cardiac Catheterization Lab [address] [place] [address] [place] [address] [facility] [place] [address] Cynthia mSith MD [address] [facility] [place] [address] Anesthesia Record Procedure Summary Procedure Name Responsible Anesthesiologist Anesthesia Start Time Anesthesia Stop Time PERC MAURA CLOSE W/IMPLANT 87922 Zuhair Kyle MD 11/16/23 1114 11/16/23 1321 [...] often do you attend chur ch or judaism services? Never 11/17/2023 Do you belong to any clubs o r organizations such as catholic groups, unions, fraternal or athletic groups, or [...] time in the past 12 m [place], were you homeless or living in a half-way (including now)? No 11/17/2023 Personal Safety Answer Date Recorded Have you ever been in or are you currently in a harmful physical or emotional relationship or is someone making you feel afraid or unsafe? 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 Anesthesia Start: 1114 Anesthesia Stop: 1321 Procedure: PERC MAURA CLOSE W/IMPLANT [id number] Diagnosis: Paroxysmal atrial fibrillation (CMS/HCC) (HCC) (Paroxysmal atrial fibrillation (CMS/HCC) (HCC) [I48.0]) Providers: Emilio Leggett MD Responsible Provider: Zuhair Kyle MD Anesthesia Type: MAC ASA Status: 3 Anesthesia Type: MAC Last vitals BP 150/85 Pulse 67 Temp 36.4 ??C (97.5 ??F) (Tympanic) Resp 15 SpO2 99% Anesthesia Post Evaluation Patient location during evaluation: PACU Patient participation: complete - patient participated Level of consciousness: arouses systems consultant Pain score: 0 Pain management: adequate Airway [...] 73 y.o. female PERC MAURA CLOSE W/IMPLANT 00499 Pre-Op Diagnosis Codes: * Paroxysmal atrial fibrillation [...] < 7 days). 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 [...] History: Diagnosis Date Anemia Arthritis Atrial fibrillation ([facility]) (HCC) Awareness under anesthesia Cancer ([facility]) ([facility]) colon Cataract Chronic back pain Depression GERD (gastroesophageal reflux disease) Hx of migraines Hyperlipidemia Hypertension Hypothyroidism Neuropathy ([facility]) Peptic ulceration PONV (postoperative nausea and vomiting) [...] Medication protocol when under care of a OFFICE SERVICES REPRESENTATIVE Planned anesthesia: MAC Induction: Induction: intravenous. Postoperative [...] 11/16/2023 documented in this encounter Care Teams Production Assembly Operator Relationship Specialty Start Date End Date Gadiel Zavala MD [address] [address] PCP - General 06/13/16 Lyudmila Knox, RN Registered Nurse 04/14/17 Jennifer Escalona, RN Registered Nurse 05/10/17 documented as of this encounter
--- OUTSIDE RECORDS SUMMARY | 2024-04-17 17:17 | XMS_ITS | Encounter Summary ---
Author Organization [facility] Address [address] [place] [address] Care Team Providers Care Manufacturing Advisor Name Role Phone Gadiel Zavala MD Primary Care Provider [phone] [phone] Lyudmila Knox RN Unavailable Unavailable Jennifer Escalona RN Unavailable Agustina vailable Reason for Referral * Cardiology (Routine) - Authorized Specialty Diagnoses / Procedures Referred By Contac t Referred To Contact Cardiology Diagnoses PAF (paroxysmal atrial fibrillation) (CMS/HCC) (HCC) Syncope and collapse Procedures DEVICE CHECK - IN OFFICE Emilio Leggett MD [address] [address] Phone: tel: fax: [facility] Referral ID Status Reason Start Date Expiration Date V isits Requested Visits Authorized [id number] Authorized 09/29/2023 10/28/2024 1 1 * Cardiology (Routine) - Authorized Specialty Diagnoses / Procedures [facility] Referred To Contact Cardiology Diagnoses PAF (paroxysmal atrial fibrillation) (CMS/HCC) (HCC) Syncope and collapse Procedures DEVICE CHECK - REMOTE Emilio Leggett MD [address] [address] Phone: tel: fax: [facility] Referral ID Status Reason Start Date Expiration Date V isits Requested Visits Authorized [id number] Authorized 09/29/2023 03/30/2025 1 1 * Cardiology (Routine) - Authorized Specialty Diagnoses / Procedures Referred By Contac t Referred To Contact Cardiology Diagnoses PAF (paroxysmal atrial fibrillation) (CMS/HCC) (HCC) Syncope and collapse Procedures DEVICE CHECK - IN OFFICE Emilio Leggett MD [address] [address] Phone: tel: fax: [facility] Referral ID Status Reason Start Date Expiration Date V isits Requested Visits Authorized [id number] Authorized 09/29/2023 10/28/2024 1 1 * Cardiology (Routine) - Authorized Specialty Diagnoses / Procedures Referred By Contac t Referred To Contact Cardiology Diagnoses PAF (paroxysmal atrial fibrillation) (CMS/HCC) (HCC) Syncope and collapse Procedures DEVICE CHECK - REMOTE Emilio Leggett MD [address] [address] Phone: tel: fax: [facility] Referral ID Status Reason Start Date Expiration Date V isits Requested Visits Authorized [id number] Authorized 09/29/2023 03/30/2025 1 1 * Cardiology (Routine) - Authorized Specialty Diagnoses / Procedures Referred By Contac t Referred To Contact Cardiology Diagnoses PAF (paroxysmal atrial fibrillation) (CMS/HCC) (HCC) Syncope and collapse Procedures DEVICE CHECK - REMOTE Emilio Leggett MD [address] [address] Phone: tel: fax: [facility] Referral ID Status Reason Start Date Expiration Date V isits Requested Visits Authorized [id number] Authorized 09/29/2023 03/30/2025 1 1 * Cardiology (Routine) - Authorized Specialty Diagnoses / Procedures Referred By Contac t Referred To Contact Cardiology Diagnoses PAF (paroxysmal atrial fibrillation) (CMS/HCC) (HCC) Syncope and collapse Procedures DEVICE CHECK - REMOTE Emilio Leggett MD [address] [place], [place] [address] [address] Phone: tel: fax: [facility] Referral ID Status Reason Start Date Expiration Date V isits Requested Visits Authorized [id number] Authorized 09/29/2023 03/30/2025 1 1 * Cardiology (Routine) - Authorized Specialty Diagnoses / Procedures Referred By Contmarianela t Referred To Contact Cardiology Diagnoses PAF (paroxysmal atrial fibrillation) (CMS/HCC) (HCC) Syncope and collapse Procedures DEVICE CHECK - REMOTE Emilio Leggett MD [address] [address] Phone: tel: fax: [facility] Referral ID Status Reason Start Date Expiration Date V isits Requested Visits Authorized [id number] Authorized 09/29/2023 03/30/2025 1 1 Encounter Details Date Type Department Care Team (Late st Contact Info) Description 09/29/2023 Orders Only [facility] Medical [facility] Cardiology [address] [place] [phone] Emilio Leggett MD [address] [address] PAF (paroxysmal atrial fibrillation) (CMS/HCC) [...] on file 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 Gender Identity Not on file Sexual Orientation Not on file documented as of this encounter Plan of Treatment Scheduled Orders Name Type Priority Associated Diagnoses Orde r Schedule DEVICE CHECK - REMOTE Cardiac Services Routine PAF (paroxysmal atrial fibrillation) ([facility]) ([facility]) Syncope and collapse Expected: 11/10/2023, Expires: 04/30/2030 DEVICE CHECK - REMOTE Cardiac Services Routine PAF (paroxysmal atrial fibrillation) ([facility]) ([facility]) Syncope and collapse Expected: 12/22/2023, Expires: 04/30/2030 DEVICE CHECK - REMOTE Cardiac Services Routine PAF (paroxysmal atrial fibrillation) ([facility]) ([facility]) Syncope and collapse Expected: 09/29/2023, Expires: 04/30/2030 DEVICE CHECK - REMOTE Cardiac Services Routine PAF (paroxysmal atrial fibrillation) ([facility]) ([facility]) Syncope and collapse Expected: 09/29/2023, Expires: 04/30/2030 DEVICE CHECK - IN OFFICE Cardiac Services Routine PAF (paroxysmal atrial fibrillation) ([facility]) ([facility]) Syncope and collapse Expected: 09/29/2023, Expires: 04/30/2030 DEVICE CHECK - REMOTE Cardiac Services Routine PAF (paroxysmal atrial fibrillation) ([facility]) ([facility]) Syncope and collapse Expected: 09/29/2023, Expires: 04/30/2030 DEVICE CHECK - IN OFFICE Cardiac Services Routine PAF (paroxysmal atrial fibrillation) ([facility]) ([facility]) Syncope and collapse Expected: 02/26/2024, Expires: 04/30/2031 [...] Visit Diagnoses Diagnosis PAF (paroxysmal atrial fibrillation) ([facility]) ([facility])- Primary Atrial fibrillation Syncope and collapse documented in this encounter Care Teams Manufacturing Advisor Relationship Specialty Start Date End Date Gadiel Zavala MD [address] [address] PCP - General 06/13/16 Lyudmila Knox, RN Registered Nurse 04/14/17 Jennifer Escalona, RN Registered Nurse 05/10/17 documented as of this encounter
--- OUTSIDE RECORDS SUMMARY | 2024-04-17 17:17 | XMS_ITS | Encounter Summary ---
Author Organization [facility] Healthcare Address [address] [place] [address] Care Team Providers Care Theatre Arts Professor Name Role Phone Gadiel Zavala MD Primary Care Provider [phone] [phone] Lyudmila Knox RN Unavailable Unavailable Jennifer Escalona RN Unavailable Agustina vailable Reason for Visit * Cardiology (Routine) - Closed Specialty Diagnoses / Procedures Referred By Delores t Referred To Contact Diagnoses Paroxysmal atrial fibrillation (CMS/HCC) (HCC) Syncope and collapse Procedures DEVICE CHECK - REMOTE Bobo Perez MD Phone: tel: fax: Referral ID Status Reason Start Date Expiration Date Visits Re quested Visits Authorized [id number] Closed 06/06/2023 12/04/2024 1 1 Encounter Details Date Type Department Care Team (Latest Contact Info) Description 07/17/2023 8:45 AM CDT Ancillary Procedure [facility] Medical Group Cardiology [address] [place] [phone] Status post placement of implantable loop recorder [...] on file Legal Sex Female 3:22 AM TRAVEL PTA Gender Identity Not on file Sexual Orientation [...] CHECK - REMOTE Routine 06/06/2023 10:10 AM TRAVEL PTA Paroxysmal atrial fibrillation (CMS/HCC) (HCC) Syncope and collapse documented in this encounter Results * DEVICE CHECK - REMOTE (06/06/2023 10:10 AM TRAVEL PTA) Anatomical Region Laterality Modality Other Narrative 07/24/2023 [...] events. 2) Continue to monitor remotely. Sonny Alcazarcritical access hospitalangela Device Office Employee Bobo Perez MD [facility] C[facility]IAC SERVICES PROC EDURES Final Result documented in this encounter Visit Diagnoses Diagnosis Status post placement of implantable loop recorder- Primary Paroxysmal atrial fibrillation (CMS/HCC) (HCC) Atrial fibrillation Syncope and collapse documented in this encounter Care Teams Theatre Arts Professor Relationship Specialty Start Date End Date Gadiel Zavala MD [address] [address] PCP - General 06/13/16 Lyudmila Knox, RN Registered Nurse 04/14/17 Jennifer Escalona, RN Registered Nurse 05/10/17 documented as of this encounter
--- OUTSIDE RECORDS SUMMARY | 2024-04-17 17:17 | XMS_ITS | Encounter Summary ---
Author Organization [facility] Healthcare Address [address] [place] [address] Care Team Providers Care Coffee Shop Aide Name Role Phone Gadiel Zavala MD Primary Care Provider [phone] [phone] Lyudmila Knox RN Unavailable Unavailable Jennifer Escalona RN Unavailable Agustina vailable Reason for Visit * Reason Comments Follow-up 6 mo f/u Atrial Fibrillation Hypertension Hyperlipidemia Encounter Details Date Type Department Care Team (Latest Contact Info) Description 04/14/2023 11:00 AM ELECTRONIC PUBLISHER Office Visit [facility] Medical Group Cardiology [address] [place] [address] Bobo Perez MD [facility] [address] [place] [address] Paroxysmal atrial fibrillation (CMS/HCC) (HCC) [...] on file Legal Sex Female 3:22 AM ELECTRONIC PUBLISHER Gender Identity Not on file Sexual Orientation Not on file documented as of this encounter Last Filed Vital Signs Vital Sign Reading Time Taken Comments Blood Pressure 118/74 04/14/2023 11:32 AM ELECTRONIC PUBLISHER Pulse 66 04/14/2023 11:32 AM ELECTRONIC PUBLISHER Temperature - - Respiratory Rate - - Oxygen Saturation 98% 04/14/2023 11:32 AM ELECTRONIC PUBLISHER Inhaled Oxygen Concentration - - Weight 59.6 kg (131 lb 8 oz) 04/14/2023 11:32 AM ELECTRONIC PUBLISHER Height 160 cm (5' 3 ) 04/14/2023 11:32 AM ELECTRONIC PUBLISHER Body Mass Index 23.29 04/14/2023 11:32 AM ELECTRONIC PUBLISHER documented in this encounter Progress Notes * [...] This is a patient who presented to [facility] for laparoscopic right hemicolectomy on October [...] her hospitalization. 11/17/2021 Hospital follow-up with [facility] - Kaitlin Bond comes to the office [...] syncope. Taking ASA 81mg daily. Thirty day personnel monitor worn no AFib noted. 10/07/22 no issues [...] Cholesterol Total, POC 240 mg/dL 05/04/22 AMBULATORY TAILER OFF REPORT Type of monitor : 30 day [...] flutter was noted. No symptoms reported. 02/23/23 Engine [employer] LNQ22 Loop Recorder. Dx; Syncope, Afib. DOI [...] analyzed EKG, electronic medical record, and bloodwork/lipids. [facility] records, 12 lead EKG 10/16/2021 AFib RVR [address] abnormality consider ischemia Harleen Perez MD, [facility] This note is dictated and transcribed using [employer] Direct Software. Manager Inventory Management variancesmay occur. Despite proofreading, typographical errors may occur. TRONIC PUBLISHER documented in this encounter Plan of Treatment [...] recorder documented in this encounter Care Teams Coffee Shop Aide Relationship Specialty Start Date End Date Gadiel Zavala MD [address] [address] PCP - General 06/13/16 Lyudmila Knox, RN Registered Nurse 04/14/17 Jennifer Escalona, LOGAN Registered Nurse 05/10/17 documented as of this encounter
--- OUTSIDE RECORDS SUMMARY | 2024-04-17 17:17 | XMS_ITS | Encounter Summary ---
Author Organization [facility] Address [address] [place] [address] Care Team Providers Care Wire Spinner Name Role Phone Gadiel Zavala MD Primary Care Provider [phone] [phone] Lyudmila Knox RN Unavailable Unavailable Jennifer Escalona RN Unavailable Agustina vailable Reason for Referral * Cardiology (Routine) - Authorized Specialty Diagnoses / Procedures Referred By Contac t Referred To Contact Cardiology Diagnoses PAF (paroxysmal atrial fibrillation) (CMS/HCC) (HCC) Procedures DEVICE CHECK - IN OFFICE Emilio Leggett MD [address] [address] Phone: tel: fax: [facility] Referral ID Status Reason Start Date Expiration Date V isits Requested Visits Authorized [id number] Authorized 10/13/2023 11/11/2024 1 1 * Cardiology (Routine) - Authorized Specialty Diagnoses / Procedures Referred By Contac t Referred To Contact Cardiology Diagnoses PAF (paroxysmal atrial fibrillation) (CMS/HCC) (HCC) Procedures DEVICE CHECK - REMOTE Emilio Leggett MD [address] [facility] [address] [place] [address] Phone: tel: fax: [facility] Referral ID Status Reason Start Date Expiration Date V isits Requested Visits Authorized [id number] Authorized 10/13/2023 04/13/2025 1 1 * Cardiology (Routine) - Authorized Specialty Diagnoses / Procedures Referred By Contac t Referred To Contact Cardiology Diagnoses PAF (paroxysmal atrial fibrillation) (CMS/HCC) (HCC) Procedures DEVICE CHECK - IN OFFICE Emilio Leggett MD [address] [address] Phone: tel: fax: [facility] Referral ID Status Reason Start Date Expiration Date V isits Requested Visits Authorized Authorized 10/13/2023 11/11/2024 1 1 * Cardiology (Routine) - Authorized Specialty Diagnoses / Procedures Referred By Contac t Referred To Contact Cardiology Diagnoses PAF (paroxysmal atrial fibrillation) (CMS/HCC) (HCC) Procedures DEVICE CHECK - REMOTE Emilio Leggett MD [address] [address] Phone: tel: fax: [facility] Medical [facility] Referral ID Status Reason Start Date Expiration Date V isits Requested Visits Authorized Authorized 10/13/2023 04/13/2025 1 1 * Cardiology (Routine) - Closed Specialty Diagnoses / Procedures Referred By Contac t Referred To Contact Cardiology Diagnoses PAF (paroxysmal atrial fibrillation) (CMS/HCC) (HCC) Procedures DEVICE CHECK - REMOTE Emilio Leggett MD [address] [address] Phone: tel: fax: [facility] Referral ID Status Reason Start Date Expiration Date Visits Re quested Visits Authorized Closed 10/13/2023 04/13/2025 1 1 * Cardiology (Routine) - Closed Specialty Diagnoses / Procedures Referred By Contac t Referred To Contact Diagnoses PAF (paroxysmal atrial fibrillation) (CMS/HCC) (HCC) Procedures DEVICE CHECK - REMOTE Emilio Leggett MD [address] [address] Phone: tel: fax: Referral ID Status Reason Start Date Expiration Date Visits Re quested Visits Authorized Closed 10/13/2023 04/13/2025 1 1 * Cardiology (Routine) - Closed Specialty Diagnoses / Procedures Referred By Contmarianela t Referred To Contact Diagnoses PAF (paroxysmal atrial fibrillation) (CMS/HCC) (HCC) Procedures DEVICE CHECK - REMOTE Emilio Leggett MD [address] [address] Phone: tel: fax: Referral ID Status Reason Start Date Expiration Date Visits Re quested Visits Authorized [id number] Closed 10/13/2023 04/13/2025 1 1 Encounter Details Date Type Department Care Team (Late st Contact Info) Description 10/13/2023 Orders Only [facility] Cardiology [address] [place] [phone] Emilio Leggett MD [address] [address] PAF (paroxysmal atrial fibrillation) (CMS/HCC) [...] on file Legal Sex Female 3:22 AM OB SCRUB TECH Gender Identity Not on file Sexual Orientation Not on file documented as of this encounter Plan of Treatment Scheduled Orders Name Type Priority Associated Diagnoses Orde r Schedule DEVICE CHECK - REMOTE Cardiac Services Routine PAF (paroxysmal atrial fibrillation) ([facility]) ([facility]) Expected: 02/12/2024, Expires: 04/30/2030 DEVICE CHECK - IN OFFICE Cardiac Services Routine PAF (paroxysmal atrial fibrillation) ([facility]) ([facility]) Expected: 02/26/2024, Expires: 04/30/2030 DEVICE CHECK - REMOTE Cardiac Services Routine PAF (paroxysmal atrial fibrillation) ([facility]) ([facility]) Expected: 05/06/2024, Expires: 04/30/2030 DEVICE CHECK - IN OFFICE Cardiac Services Routine PAF (paroxysmal atrial fibrillation) ([facility]) ([facility]) Expected: 10/28/2024, Expires: 04/30/2031 documented as of [...] DEVICE CHECK - REMOTE (03/05/2024 11:24 AM OB SCRUB TECH) Anatomical Region Laterality Modality Other Narrative 03/13/2024 8:08 AM OB SCRUB TECH [employer] LNQ22 Loop Recorder. Dx; Syncope, Afib. DOI 08/08/2022-[place]. [facility]link remote monitoring. 04/14/23-WAD note: Anticoagulation contraindication d/t frequent falls and h/o head injury. ILR interrogations for more definitive documentation of Afib Hurley and justification for LAAO device implant. Routine [...] LNQ22 Loop Recorder. Dx; Syncope, Afib. DOI 08/08/2022-[place]. [facility]link remote monitoring. Amulet placed 11/16/23 Routine [...] LNQ22 Loop Recorder. Dx; Syncope, Afib. DOI 08/08/2022-[place]. [facility]link remote monitoring. Amulet placed 11/16/23 Routine [...] Visit Diagnoses Diagnosis PAF (paroxysmal atrial fibrillation) ([facility]) ([facility])- Primary Atrial fibrillation Status post placement of implantable loop recorder- Primary PAF (paroxysmal atrial fibrillation) ([facility]) ([facility]) Atrial fibrillation Syncope and collapse Status post placement of implantable loop recorder- Primary PAF (paroxysmal atrial fibrillation) ([facility]) ([facility]) Atrial fibrillation Syncope, unspecified syncope type Status post placement of implantable loop recorder- Primary PAF (paroxysmal atrial fibrillation) ([facility]) ([facility]) Atrial fibrillation Syncope and collapse documented in this encounter Care Teams Wire Spinner Relationship Specialty Start Date End Date Gadiel Zavala MD [address] [id number] PCP - General 06/13/16 Lyudmila Knox, RN Registered Nurse 04/14/17 Jennifer Escalona, LOGAN Registered Nurse 05/10/17 documented as of this encounter
--- OUTSIDE RECORDS SUMMARY | 2024-04-17 17:17 | XMS_ITS | Encounter Summary ---
Author Organization [facility] Healthcare Address [address] [place] [address] Care Team Providers Care Checker In Name Role Phone Gadiel Zavala MD Primary Care Provider [phone] [phone] Lyudmila Knox RN Unavailable Unavailable Jennifer Escalona RN Unavailable Agustina vailable Reason for Visit * Reason Comments Follow-up Atrial Fibrillation Encounter Details Date Type Department Care Team (Latest Contact Info) Description 01/02/2024 10:15 AM CDT Office Visit [facility] Medical Group Cardiology [address] [place] [phone] Emilio Leggett MD [address] [place] [phone] PAF (paroxysmal atrial fibrillation) (CMS/HCC) (HCC) [...] 0.6 oz pur e alcohol) social [facility] Utilities Answer Date Recorded In the [...] often do you attend chur ch or yazidism services? Never 11/17/2023 Do you belong to any clubs o r organizations such as scientologist groups, unions, fraternal or athletic groups, or [...] any time in the past 12 m [facility], were you homeless or living in a [...] on file Legal Sex Female 3:22 AM CHECKER IN Gender Identity Not on file Sexual Orientation [...] Leggett MD - 01/02/2024 10:[address] [facility] CARDIOLOGY 01/02/2024 CHIEF COMPLAINT Chief [...] in SeptemberOctober 2021 [facility] after she had colon cancer surgery. She states that her colon cancer is in remission. Subsequently, patient had implantable monitor and storage bin tender which showed paroxysmal atrial fibrillation. She has [...] history of Anemia, Arthritis, Atrial fibrillation (CMS/HCC) ([facility]), Awarenessunder anesthesia, Cancer (CMS/HCC) ([facility]), Cataract, Chronic back pain, Depression, GERD (gastroesophageal [...] EF more than 70%. 10/16/2021; Dr. Perez, [facility] Thirty day event monitor-Predominant underlying rhythm is sinus rhythm, average heart rate 66 beatsper minute. Occasional PACs and PVCs. No atrial fibrillation or flutter was noted. No symptoms reported. 03/29/2022-04/30/2022 Medtronic implantable monitor and storage bin tender---10 Tachy: ECGs show AF w/ RVR; max [...] for this visit: PAF (paroxysmal atrial fibrillation) ([facility]) ([facility]) (Primary) Presence of Amulet left atrial appendage [...] was used to complete this document, therefore, agent contract clerk variances may occur. documented in this encounter [...] hypertension documented in this encounter Care Teams Checker In Relationship Specialty Start Date End Date Gadiel Zavala MD [address] [address] PCP - General 06/13/16 Lyudmila Knox, RN Registered Nurse 04/14/17 Jennifer Escalona, RN Registered Nurse 05/10/17 documented as of this encounter
--- OUTSIDE RECORDS SUMMARY | 2024-04-17 17:17 | XMS_ITS | Encounter Summary ---
Author Organization [facility] Healthcare Address [address] [place] [address] Care Team Providers Care Door Trimmer Name Role Phone Gadiel Zavala MD Primary Care Provider [phone] [phone] Lyudmila Knox RN Unavailable Unavailable Jennifer Escalona RN Unavailable Agustina vailable Encounter Details Date Type Department Care Team (Late st Contact Info) Description 10/23/2023 Orders Only Cardiology Emilio Leggett MD [address] [facility] [address] [place], [place] [id number] Paroxysmal atrial fibrillation (CMS/HCC) (HCC) (Primary Dx) [...] on file Legal Sex Female 3:22 AM DECORATIVE CUTTING MACHINE TENDER Gender Identity Not on file Sexual [...] Date First Orde red Date CASE REQUEST ENAMEL SPRAYER 1 10/23/2023 documented in this encounter Care Teams Door Trimmer Relationship Specialty Start Date End Date Gadiel Zavala MD [address] [address] PCP - General 06/13/16 Lyudmila Knox, RN Registered Nurse 04/14/17 Jennifer Escalona, RN Registered Nurse 05/10/17 documented as of this encounter
--- OUTSIDE RECORDS SUMMARY | 2024-04-17 17:17 | XMS_ITS | Encounter Summary ---
Author Organization [facility] Healthcare Address [address] [place] [address] Care Team Providers Care Adult Nurse Practitioner Name Role Phone Gadiel Zavala MD Primary Care Provider [phone] [phone] Lyudmila Knox RN Unavailable Unavailable Jennifer Escalona RN Unavailable Agustina vailable Encounter Details Date Type Department Care Team (Late st Contact Info) Description 09/11/2023 Telephone [facility] Medical Group Cardiology [address] [place] [phone] Alton Conwya MD [address] [place] [address] Social History Tobacco Use Types Packs/Day [...] on file Legal Sex Female 3:22 AM TIP CEMENTER Gender Identity Not on file Sexual Orientation [...] on filedocumented in this encounter Care Teams Adult Nurse Practitioner Relationship Specialty Start Date End Date Gadiel Zavala MD [address] [id number] PCP - General 06/13/16 Lyudmila Knox, RN Registered Nurse 04/14/17 Jennifer Escalona, LOGAN Registered Nurse 05/10/17 documented as of this encounter
--- OUTSIDE RECORDS SUMMARY | 2024-04-17 17:17 | XMS_ITS | Encounter Summary ---
Author Organization [facility] Healthcare Address [address] [place] [address] Care Team Providers Care Greens Laborer Name Role Phone Gadiel Zavala MD Primary Care Provider [phone] Lyudmila Knox RN Unavailable Unavailable Jennifer Escalona RN Unavailable Agustina vailable Reason for Visit * Auth/Cert Specialty Diagnoses / Procedures Referred By Delores t Referred To Contact Diagnoses Paroxysmal atrial fibrillation (CMS/HCC) (HCC) Paroxysmal atrial fibrillation (CMS/HCC) (HCC) [I48.0] Procedures PERC MAURA CLOSE W/IMPLANT 43052 Referral ID Status Reason Start Date Expiration Date Visits Re quested Visits Authorized [id number] 1 1 Encounter Details Date Type Department Care Team (Late st Contact Info) Description 11/16/2023 10:00 AM CDT - 11/16/2023 12:30 PM CDT Surgery [facility] Cardiac Catheterization Lab [address] [place] [address] Emilio Wahl MD [address] [place] [id number] PERC MAURA CLOSE W/IMPLANT 11162 Surgery Details Date/Time Status Location OR Service Patient Class Case Class Case Type Trauma Case? 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 Cardiovascular Surgery Admit Elective Panel 1 Procedure LRB Anes Op Region Wound Class Comments PERC MAURA CLOSE W/IMPLANT 35675 N/A General INTRACARDIAC ECHOCARDIOGRAM (+) 90411 N/A Surgeon Surgeon Role Service Panel Emilio Wahl MD Primary Cardiovascular 1 documented in this encounter Social History Tobacco Use Types Packs/Day Years Used Date Smoking Tobacco: Former Cigarettes Q uit: 04/14/1987 Smokeless Tobacco: Never Alcohol Use Standard Drinks/Week Comments Yes 0 (1 standard drink = 0.6 oz pur e alcohol) social [facility] Utilities Answer Date Recorded In the past [...] often do you attend chur ch or restorationist services? 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 - No driving for 2 days after [...] Center 01/02/2024 10:15 AM Emilio Wahl MD [facility] CAR 2310 Specialty Total time for discharge planning including documentation: 33 minutes documented in this encounter Discharge Instructions * Discharge Instructions* Hamida Zimmerman RN - 11/17/2023 1:51 PM CDT Images from the original note were not included. Discharge patient Once (Routine) Comments: Activity: - No heavy lifting (over 5 pounds) for 1 week or as directed by your continuous process tanner rotary drum. - No driving for 2 days after [...] (TOPROL-XL) 25 mg extended release tablet 07/26/2017 vitamin E 400 unit capsule Take 1 capsule (400 Units total) by mouth aspirin (Adult Low Dose Aspirin) 81 mg enteric coated tablet Take 1 tablet (81 mg total) by mouth daily 03/29/2022 omeprazole (PriLOSEC) 40 mg capsule Take 1 capsule (40 mg total) by mouth daily Two tablets daily losartan (COZAAR) 25 mg tabletIndications: Essential hypertension Take 1 tablet by mouth once daily 90 tablet 10/09/2023 4 clopidogreL (PLAVIX) 75 mg tabletIndications: coronary artery disease Take 1 tablet (75 mg total) by mouth daily 30 tablet 11 11/18/2023 4 documented as of this encounter Ordered [...] INTRA-PROCEDURAL FOR LEFT ATRIAL APPENDAGE CLOSURE (CPT 51324) Name: Georgiana Bond AGE: 73 y.o. Date of Procedure: 11/16/2023 BIRTHDATE: 1950 FURNACE PACKER: Emilio Wahl MD REFERRING PHYSICIAN: Gadiel Zavala [...] original note were not included. Structural Heart Pin Puller Consult for LAAO Patient Name:Georgiana Bond Age:73 [...] TIA, thromboembolism 0 V Vascular disease (PAD, UT) 0 A Age 65-74 0 Sc Sex category (Female) 1 Total Points 4 4 points Stroke risk was 4.8% per year in >90,000 patients (the [place] Atrial Fibrillation Cohort Study)and 6.7% risk of [...] vein. NOTES Patient seen by Structural Heart Pin Puller for consult to the Structural Heart Program [facility]. Process for LAAO evaluation explained to patient [...] healing without S/S of infection 11/17/20231326 by Hamdia Zimmerman RN Outcome: Completed 11/17/2023836 by Hamida [...] Care Provider: Gadiel Zavala MD Preferred Pharmacy: [place] [address] [address] [address] Primary Caregiver: Self Who does the patient or legal guardian want to receive education instruction and discharge plans for after care assistance?: Name Caregiver Name: Satish Castillo Relationship to patient: spouse Caregiver Contact Information: [phone] Home Care Services: No Durable Medical Equipment: Motorized wheelchair, Walker (wheeled), Walker (no wheels), Toilet riser, Tub bench Living Arrangements: Spouse/significant other Type of Residence: Private residence Payor Source: Medicare advantage, Prescription benefits Does the patient need discharge transport arranged?: No (11/17/23 0197) Additional Information and Discharge Plan: Pt admitted 11/16/23 s/p LAAO & anticipated DC home today. CM met with pt at bedside to complete assessment for initial discharge planning, plan of care & goals for discharge. Demographics verified per face sheet. See designated health care administrator & health care agents for contact info. Pt lives at home with spouse Satish Castillo. Pt has multiple walkers& electric w/c she uses. She reports independent with personal ADLs, & provides transportation. Preferred pharmacy [facility] on file & she will make her own PCP follow-up appointment. Goal is to return home with upon discharge. No identified CM discharge needs. MELISSA Torrez-RN [facility] [phone] * Plan of Care - Hamida Zimmerman [...] (CMS/HCC) (HCC) PERC MAURA CLOSURE W/IMPLANT (WATCHMAN) 27001 Routine 11/16/2023 1:03 PM CDT Paroxysmal atrial [...] AM CDT Narrative 11/18/2023 11:29 AM CDT [address], [place] [address] Limited Echocardiogram Report Patient Name: GEORGIANA BOND D : 1950 Study Date: 11/17/2023 9:00:22 AM Gender: F Tech: SC Location: [id number] Ref Provider: EMILIO WAHL ?Height(Cm): 160 BSA: [...] effusion. Electronically Signed By: Emilio Wahl MD, [facility] 2023-11-18 11:29:31 CDT Procedure Note Emilio Wahl MD - 11/18/2023 [place] [address] Limited Echocardiogram Report Patient Name: GEORGIANA BOND D : 1950 Study Date: 11/17/2023 9:00:22 AM Gender: F Tech: SC Location: [id number] Ref Provider: EMILIO WAHL Height(Cm): 160 BSA: [...] effusion. Electronically Signed By: Emilio Wahl MD, [facility] 2023-11-18 11:29:31 CDT Emilio Wahl MD CV ECHO PROCEDURES Final Result * ECG 12 lead (11/17/2023 8:01 AM CDT) 11/17/2023 8:01 AM CDT Narrative [facility] - 11/19/2023 7:15 PM CDT Vent Rate: 77 bpm RR Interval: 770 msec UT Interval: 163 msec QRS Duration: 82 msec QT Interval: 378 msec QTC Interval: 410 msec P-R-T [place]: 30 - 26 - 12 degrees IMPRESSION: SINUS RHYTHM NORMAL ECG Electronically Signed By: Emilio Wahl MD, [facility] Emilio Wahl MD ECG ORDERABLES Final Result [facility] * eGFR (11/17/2023 7:45 AM CDT) eGFR [...] LAB BLOOD ORDERABLES Final Resul t MARK [address] [address] Department [place] [address] * Differential, auto (11/17/2023 7:45 AM CDT) Neutrophil abs 5.6 1.5 - 6.5 K/cumm Imm gran abs 0.0 0.0 - 0.1 K/cumm [facility] Lymphocyte abs 1.2 0.8 - 3.3 K/cumm [facility] Monocyte abs 0.6 0.2 - 0.8 K/cumm [facility] Eosinophil abs 0.0 0.0 - 0.5 K/cumm [facility] Basophil abs 0.0 0.0 - 0.1 K/cumm [facility] Neutrophil pct 75.4 % [facility] Comment: Interpretive Data Percent cell count reference ranges are not reported, since discordance with absolute values may lead to misinterpretation of CBC data. Current Interpretive Data was last revised on 2017. Imm gran pct 0.4 % [facility] Comment: Interpretive Data Percent cell count reference ranges are not reported, since discordance with absolute values may lead to misinterpretation of CBC data. Current Interpretive Data was last revised on 2017. Lymphocyte pct 15.8 % [facility] Comment: Interpretive Data Percent cell count reference ranges are not reported, since discordance with absolute values may lead to misinterpretation of CBC data. Current Interpretive Data was last revised on 2017. Monocyte pct 7.6 % [facility] Comment: Interpretive Data Percent cell count reference ranges are not reported, since discordance with absolute values may lead to misinterpretation of CBC data. Current Interpretive Data was last revised on 2017. Eosinophil pct 0.5 % [facility] Comment: Interpretive Data Percent cell count reference ranges are not reported, since discordance with absolute values may lead to misinterpretation of CBC data. Current Interpretive Data was last revised on 2017. Basophil pct 0.3 % [facility] Comment: Interpretive Data Percent cell count reference ranges are not reported, since discordance with absolute values may lead to misinterpretation of CBC data. Current Interpretive Data was last revised on 2017. Blood 11/17/2023 7:45 AM CDT 11/17/2023 8:04 AM CDT us Emilio Wahl MD LAB BLOOD ORDERABLES Final Resul t MARK [address] [address] Department [place] [address] * CBC with auto differential (11/17/2023 7:45 AM CDT) Pathologist [facility] WBC 7.4 3.8 - 9.9 K/cumm Hgb 12.2 11.9 - 15.5 g/dL [facility] Hct 36.7 35.6 - 45.5 % [facility] Plt 282 150 - 400 K/cumm [facility] MPV 9.3 9.1 - 12.3 fL [facility] RBC 4.08 3.90 - 5.20 M/cumm [facility] MCV 90.0 81.3 - 96.4 fL [facility] MCH 29.9 27.1 - 33.3 pg [facility] MCHC 33.2 32.3 - 35.7 g/dL [facility] RDW CV 13.8 11.1 - 14.9 % [facility] RDW SD 45.4 35.7 - 48.1 fL [facility] NRBC abs 0.00 0.00 - 0.01 K/cumm [facility] Blood 11/17/2023 7:45 AM CDT 11/17/2023 8:04 AM CDT us Emilio Wahl MD LAB BLOOD ORDERABLES Final Resul t [facility] [address] [address] Department [place] [address] * (ABNORMAL) Basic metabolic panel (11/17/2023 7:45 AM CDT) Pathologist [facility] Sodium 136 135 - 145 mmol/L Potassium, pl 3.7 3.3 - 4.9 mmol/L [facility] Chloride 99 97 - 110 mmol/L [facility] CO2 25 22 - 32 mmol/L [facility] Anion gap 12 2 - 15 mmol/L [facility] BUN 8 6 - 25 mg/dL [facility] Creatinine 0.56(L) 0.60 - 1.10 mg/dL [facility] Glucose 110 70 - 199 mg/dL [facility] Comment: Interpretive Data Fasting glucose >/= 126 [...] Resu lt - Final Performing Organization Address City/[facility] Co de Phone Number YAIRWILTON JAILENE [address] [address]ia Department [employer] [place], [place] [id number] * aPTT (11/16/2023 2:25 PM CDT) aPTT [...] ORDERABLES Final Resul t Performing Organization Address [facility] Co de Phone Number [place]AIR[place] [address] Alexia Department of [employer] [place], [place] [id number] * Protime-INR (11/16/2023 2:25 PM CDT) PT [...] ORDERABLES Final Resul t Performing Organization Address [facility] Co de Phone Number MARK DENT [address] Alexia Department [place] [address] * Magnesium (11/16/2023 2:25 PM CDT) Magnesium 1.9 1.4 - 2.5 mg/dL Blood 11/16/2023 2:25 PM CDT 11/16/2023 2:32 PM CDT Emilio Wahl MD LAB BLOOD ORDERABLES Final Resul t Performing Organization Address [facility] de Phone Number MARK DENT [address] Alexia Department [place] [place] [address] * XR Chest 1 view (11/16/2023 1:38 [...] Result * PERC MAURA CLOSURE W/IMPLANT (WATCHMAN) 41695, INTRACARDIAC ECHOCARDIOGRAM (11/16/2023 1:03 PM CDT) Anatomical [...] Amplatzer Amulet left atrial appendage occluder (CPT 50878) Intracardiac echocardiogram (ICE) Deployment of 3 Perclose vascular closure devices at the right common femoral venous access sites SEDATION: ??MAC - by anesthesiology team ACCESS SITES: ??Right common femoral vein PROCEDURE: ?? After obtaining informed consent, patient was brought to the cardiac cath lab radiology technologist and prepped and draped in the usual sterile manner. ??Time-out and immediate reassessment of the patient was performed. ??Patient was placed under MAC by the anesthesiologist team. ?? Two right common femoral venous accesses were taken under ultrasound guidance with micropuncture needle. ??Two Perclose vascular closure device were placed. ??A 12 [place] sheaths were inserted in the inferior access site over a 035 wire for ICE. ??[place] [address] units of unfractionated heparin for procedural anticoagulation at different intervals during the procedure, to maintain ACT between 250-350 seconds. ?? ACT was monitored throughout the procedure at regular intervals. ?? [place] sheath was advanced in the superior access site of right common femoral vein. Atrial septal puncture was performed using [place] transseptal needle under intracardiac echo and fluoroscopic guidance. ??The sheath was advanced to the left atrium towards the pulmonary vein over the pre shaped wire. ??The sheath was taken out and it was exchanged with a 14 [place] amulet delivery sheath. ??The sheath was advanced into the left atrium, the atrial septum was dilated with the sheath, and then sheath was taken out over the wire and positioned in the right atrium. ??Next, ICE catheter was advanced into the left atrial cavity. ??Left atrial appendage measurement was performed. ??After this, the 14 [place] sheath was reintroduced over [place] wire. A 5 [place] pigtail catheter was advanced over the wire and the pre shaped wire was taken out. ??Left atrial pressure was measured at 8 mmHg despite aggressive IV normal saline administration. A 5 [place] pigtail catheter was later positioned in the [...] was used to complete this document, therefore, abrasive sawyer variances may occur. Emilio Wahl MD, [facility] 11/16/23 us Emilio Wahl MD CV ELECTROPHYSIOLOGY PROCS Edite d Result - Final * (ABNORMAL) POC Activated Clotting Time, High Range (11/16/2023 12:44 PM CDT) ACT 293(H) 87 - 138 sec Blood 11/16/2023 12:4 4 PM CDT 11/16/2023 12:44 PM CDT us Emilio Wahl MD LAB BLOOD ORDERABLES Final Resul t Performing Organization Address [facility]/ZIP Co de Phone Number MARK DENT [address] Alexia Saini Department [employer] [place], [place] [id number] * (ABNORMAL) POC Activated Clotting Time, High Range (11/16/2023 12:24 PM CDT) ACT 337(H) 87 - 138 sec Blood 11/16/2023 12:2 4 PM CDT 11/16/2023 12:24 PM CDT us Emilio Wahl MD LAB BLOOD ORDERABLES Final Resul t Performing Organization Address [facility] Co de Phone Number MARK DENT [address] [address]aini Department [place] [employer] [place] [address] * (ABNORMAL) POC Activated Clotting Time, High Range (11/16/2023 12:13 PM CDT) ACT 280(H) 87 - 138 sec Blood 11/16/2023 12:1 3 PM CDT 11/16/2023 12:13 PM CDT us Emilio Wahl MD LAB BLOOD ORDERABLES Final Resul t Performing Organization Address [facility] Co de Phone Number MARK DENT [address] [address]aini Department [place] [address] * Check Sample (11/16/2023 8:26 AM CDT) ABO Rh A Positive CH HCLL OTHER 11/16/2023 8:26 AM CDT 11/16/2023 8:38 AM CDT us Emilio Wahl MD LAB BLOOD ORDERABLES Final Resul t Performing Organization Address [facility] Co de Phone Number MARK DENT [address] [address] Saini Department [place] [employer] [place] [address] CH documented in this encounter Visit Diagnoses [...] 11/17/2023 documented in this encounter Care Teams Greens Laborer Relationship Specialty Start Date End Date Gadiel Zavala MD [address] [address] PCP - General 06/13/16 Lyudmila Knox, RN Registered Nurse 04/14/17 Jennifer Escalona, RN Registered Nurse 05/10/17 documented as of this encounter
--- OUTSIDE RECORDS SUMMARY | 2024-04-17 17:17 | XMS_ITS | Encounter Summary ---
Author Organization [facility] Healthcare Address [address] [place] [address] Care Team Providers Care Angular Js Developer Name Role Phone Gadiel Zavala MD Primary Care Provider +1 [phone] Lyudmila Knox RN Unavailable Unavailable Jennifer Escalona RN Unavailable Agustina vailable Reason for Visit * Auth/Cert Specialty Diagnoses / Procedures Referred By Delores vines Referred To Contact Diagnoses Paroxysmal atrial fibrillation (CMS/HCC) (HCC) Paroxysmal atrial fibrillation (CMS/HCC) (HCC) [I48.0] Procedures PERC MAURA CLOSE W/IMPLANT 95046 Referral ID Status Reason Start Date Expiration Date Visits Re quested Visits Authorized [id number] 1 1 Encounter Details Date Type Department Care Team (Latest Contact Info) Description 11/16/2023 8:05 AM CDT - 11/17/2023 2:17 PM CDT Hospital Encounter [facility] [address] [place] [address] Emilio Wahl MD [address] [place] [address] Falls frequently (Primary Dx); Paroxysmal atrial fibrillation (CMS/HCC) (HCC) Discharge Disposition: Discharge to home or self care Social History Tobacco Use Types Packs/Day Years Used Date Smoking Tobacco: Former Cigarettes Q uit: 04/14/1987 Smokeless Tobacco: Never Alcohol Use Standard Drinks/Week Comments Yes 0 (1 standard drink = 0.6 oz pur e alcohol) social [facility] Utilities Answer Date Recorded In the [...] often do you attend chur ch or religion services? Never 11/17/2023 Do you belong to any clubs o r organizations such as mormon groups, unions, fraternal or athletic groups, or [...] time in the past 12 m [facility], were you homeless or living in a [place] health care facility (including now)? No 11/17/2023 Personal Safety Answer Date Recorded Have you ever been in or are you currently in a harmful physical or emotional relationship or is someone making you feel afraid or unsafe? 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 - No driving for 2 days after [...] Center 01/02/2024 10:15 AM Emilio Wahl MD [facility] CAR 2310 Specialty Total time for discharge planning including documentation: 33 minutes documented in this encounter Discharge Instructions * Discharge Instructions* Hamida Zimmerman RN - 11/17/2023 1:51 PM CDT Images from the original note were not included. Discharge patient Once (Routine) Comments: Activity: - No heavy lifting (over 5 pounds) for 1 week or as directed by your grizzly worker. - No driving for 2 days after [...] by mouth daily 30 tablet 11/18/2023 4 documented as of this encounter Ordered Prescriptions Prescription Sig Dispense Quantity Refills Last Filled Start Date End Date clopidogreL (PLAVIX) 75 mg tabletIndications: coronary artery disease Take 1 tablet (75 mg total) by mouth daily 30 tablet 11/18/2023 02/08/2024 documented in this encounter Discharge [...] INTRA-PROCEDURAL FOR LEFT ATRIAL APPENDAGE CLOSURE (CPT 89014) Name: Georgiana Bond AGE: 73 y.o. Date of Procedure: 11/16/2023 BIRTHDATE: 1950 COTTON GROWER: Emilio Wahl MD REFERRING PHYSICIAN: Gadiel Zavala [...] original note were not included. Structural Heart Pipeline Executive Consult for LAAO Patient Name:Georgiana Bond Age:73 [...] TIA, thromboembolism 0 V Vascular disease (PAD, NM) 0 A Age 65-74 0 Sc Sex category (Female) 1 Total Points 4 4 points Stroke risk was 4.8% per year in >90,000 patients (the [place] Atrial Fibrillation Cohort Study)and 6.7% risk of [...] vein. NOTES Patient seen by Structural Heart Pipeline Executive for consult to the Structural Heart Program [facility]. Process for LAAO evaluation explained to [...] Care Provider: Gadiel Zavala MD Preferred Pharmacy: [facility] [place] - [place], [place] - [address] [facility] [address] [facility] [address] Primary Caregiver: Self Who does the patient or legal guardian want to receive education instruction and discharge plans for after care assistance?: Name Caregiver Name: Satish Castillo Relationship to patient: spouse Caregiver Contact Information: [phone] Home Care Services: No Durable Medical Equipment: Motorized wheelchair, Walker (wheeled), Walker (no wheels), Toilet riser, Tub bench Living Arrangements: Spouse/significant other Type of Residence: Private residence Payor Source: Medicare advantage, Prescription benefits Does the patient need discharge transport arranged?: No (11/17/23 3650) Additional Information and Discharge Plan: Pt admitted 11/16/23 s/p LAAO & anticipated DC home today. CM met with pt at bedside to complete assessment for initial discharge planning, plan of care & goals for discharge. Demographics verified per face sheet. See designated wound care nurse & health care agents for contact info. Pt lives at home with spouse Satish Castillo. Pt has multiple walkers& electric w/c she uses. She reports independent with personal ADLs, & provides transportation. Preferred pharmacy [facility] on file & she will make her own PCP follow-up appointment. Goal is to return home with upon discharge. No identified CM discharge needs. MELISSA Torrez-RN [facility] [phone] * Plan of Care - Hamida Zimmerman [...] (CMS/HCC) (HCC) PERC MAURA CLOSURE W/IMPLANT (WATCHMAN) 14586 Routine 11/16/2023 1:03 PM CDT Paroxysmal atrial [...] AM CDT Narrative 11/18/2023 11:29 [place] [address] Limited Echocardiogram Report Patient Name: GEORGIANA BOND D : 1950 Study Date: 11/17/2023 9:00:22 AM Gender: F Tech: [place] Location: [id number] [facility] Provider: EMILIO WAHL ?Height(Cm): 160 BSA: [...] effusion. Electronically Signed By: Emilio Wahl MD, [facility] 2023-11-18 11:29:31 CDT Procedure Note Emilio Wahl MD - 11/18/2023 [place] [address] Limited Echocardiogram Report Patient Name: GEORGIANA BOND D : 1950 Study Date: 11/17/2023 9:00:22 AM Gender: F Tech: [place] Location: [id number] Ref Provider: EMILIO WAHL Height(Cm): 160 BSA: [...] effusion. Electronically Signed By: Emilio Wahl MD, [facility] 2023-11-18 11:29:31 CDT Emilio Wahl MD CV ECHO PROCEDURES Final Result * ECG 12 lead (11/17/2023 8:01 AM CDT) 11/17/2023 8:01 AM CDT Narrative [facility] - 11/19/2023 7:15 PM CDT Vent Rate: 77 bpm RR Interval: 770 msec [place] Interval: 163 msec QRS Duration: 82 msec QT Interval: 378 msec QTC Interval: 410 msec P-R-T [place]: 30 - 26 - 12 degrees IMPRESSION: SINUS RHYTHM NORMAL ECG Electronically Signed By: Emilio Wahl MD, [facility] Emilio Wahl MD ECG ORDERABLES Final Result [facility] * eGFR (11/17/2023 7:45 AM [...] ORDERABLES Final Resul t Performing Organization Address City/State/[facility] Co de Phone Number [facility] [address] [address]ain[address] Department [place] [address] * Differential, auto (11/17/2023 7:45 AM CDT) Neutrophil abs 5.6 1.5 - 6.5 K/cumm Imm gran abs 0.0 0.0 - 0.1 K/cumm [facility] Lymphocyte abs 1.2 0.8 - 3.3 K/cumm [facility] Monocyte abs 0.6 0.2 - 0.8 K/cumm C[facility]ER Eosinophil abs 0.0 0.0 - 0.5 K/cumm [facility] Basophil abs 0.0 0.0 - 0.1 K/cumm [facility] Neutrophil pct 75.4 % [facility] Comment: Interpretive Data Percent cell count [...] revised on 2017. Basophil pct 0.3 % [facility] Comment: Interpretive Data Percent cell count reference ranges are not reported, since discordance with absolute values may lead to misinterpretation of CBC data. Current Interpretive Data was last revised on 2017. Blood 11/17/2023 7:45 AM CDT 11/17/2023 8:04 AM CDT us Emilio Wahl MD LAB BLOOD ORDERABLES Final Resul t MARK [address] [address]ain[address] [place] [address] * CBC with auto differential (11/17/2023 7:45 AM CDT) WBC 7.4 3.8 - 9.9 K/cumm Hgb 12.2 11.9 - 15.5 g/dL [facility] Hct 36.7 35.6 - 45.5 % [facility] Plt 282 150 - 400 K/cumm [facility] MPV 9.3 9.1 - 12.3 fL [facility] RBC 4.08 3.90 - 5.20 M/cumm [facility] MCV 90.0 81.3 - 96.4 fL [facility] MCH 29.9 27.1 - 33.3 pg [facility] MCHC 33.2 32.3 - 35.7 g/dL [facility] RDW CV 13.8 11.1 - 14.9 % [facility] CH RDW SD 45.4 35.7 - 48.1 fL [facility] NRBC abs 0.00 0.00 - 0.01 K/cumm [facility] Blood 11/17/2023 7:45 AM CDT 11/17/2023 8:04 AM CDT us Emilio Wahl MD LAB BLOOD ORDERABLES Final Resul t [facility] [address] [address] Department [place] [address] * (ABNORMAL) Basic metabolic panel (11/17/2023 7:45 AM CDT) Sodium 136 135 - 145 mmol/L Potassium, pl 3.7 3.3 - 4.9 mmol/L [facility] Chloride 99 97 - 110 mmol/L [facility] CO2 25 22 - 32 mmol/L [facility] Anion gap 12 2 - 15 mmol/L [facility] BUN 8 6 - 25 mg/dL [facility] Creatinine 0.56(L) 0.60 - 1.10 mg/dL [facility] Glucose 110 70 - 199 mg/dL [facility] Comment: Interpretive Data Fasting glucose >/= [...] AM CDT 11/17/2023 8:04 AM CDT Result [facility] us Emilio Wahl MD LAB BLOOD ORDERABLES Edited Resu lt - Final Performing Organization Address [facility] de Phone Number MARK [address] [facility] [place] [place] [address] * aPTT (11/16/2023 2:25 PM CDT) aPTT 37 28 - 38 sec Comment: Interpretive Data Heparin therapeutic range: 66.0 - 100.0 seconds. Range based on correlation with therapeutic heparin activity range of 0.3 - 0.7 Units/mL. Current interpretive data was last revised on 2023. Blood 11/16/2023 2:25 PM CDT 11/16/2023 2:32 PM CDT Result [facility] us Emilio Wahl MD LAB BLOOD ORDERABLES Final Resul t Performing Organization Address [facility] de Phone Number [facility] [address] [facility] [place] [address] * Protime-INR (11/16/2023 2:25 PM CDT) PT [...] ORDERABLES Final Resul t Performing Organization Address City/[facility]/ZIP Co de Phone Number MARK DENT [address] [address] [facility] [place] [address] * Magnesium (11/16/2023 2:25 PM CDT) Magnesium 1.9 1.4 - 2.5 mg/dL Blood 11/16/2023 2:25 PM CDT 11/16/2023 2:32 PM CDT Emilio Wahl MD LAB BLOOD ORDERABLES Final Resul t Performing Organization Address [facility] de Phone Number MARK DENT [address] [address] [facility] [place] [address] * XR Chest 1 view (11/16/2023 1:38 [...] Result * PERC MAURA CLOSURE W/IMPLANT (WATCHMAN) 50681, INTRACARDIAC ECHOCARDIOGRAM (11/16/2023 1:03 PM CDT) Anatomical [...] Amplatzer Amulet left atrial appendage occluder (CPT 15528) Intracardiac echocardiogram (ICE) Deployment of 3 Perclose vascular closure devices at the right common femoral venous access sites SEDATION: ??MAC - by anesthesiology team ACCESS SITES: ??Right common femoral vein PROCEDURE: ?? After obtaining informed consent, patient was brought to the director of labor and delivery and prepped and draped in the usual sterile manner. ??Time-out and immediate reassessment of the patient was performed. ??Patient was placed under MAC by the anesthesiologist team. ?? Two right common femoral venous accesses were taken under ultrasound guidance with micropuncture needle. ??Two Perclose vascular closure device were placed. ??A 12 Czech sheaths were inserted in the inferior access site over a 035 wire for ICE. [place] [address] units of unfractionated heparin for procedural anticoagulation at different intervals during the procedure, to maintain ACT between 250-350 seconds. ?? ACT was monitored throughout the procedure at regular intervals. ?? Baggs sheath was advanced in the superior access site of right common femoral vein. Atrial septal puncture was performed using Baggs transseptal needle under intracardiac echo and fluoroscopic guidance. ??The sheath was advanced to the left atrium towards the pulmonary vein over the pre shaped wire. ??The sheath was taken out and it was exchanged with a 14 Czech amulet delivery sheath. ??The sheath was advanced into the left atrium, the atrial septum was dilated with the sheath, and then sheath was taken out over the wire and positioned in the right atrium. ??Next, ICE catheter was advanced into the left atrial cavity. ??Left atrial appendage measurement was performed. ??After this, the 14 Czech sheath was reintroduced over Baggs wire. A 5 Czech pigtail catheter was advanced over the wire and the pre shaped wire was taken out. ??Left atrial pressure was measured at 8 mmHg despite aggressive IV normal saline administration. A 5 Czech pigtail catheter was later positioned in the [...] was used to complete this document, therefore, advertising solicitor variances may occur. Emilio Wahl MD, [facility] 11/16/23 Emilio Wahl MD CV ELECTROPHYSIOLOGY PROCS Edite d Result - Final * (ABNORMAL) POC Activated Clotting Time, High Range (11/16/2023 12:44 PM CDT) ACT 293(H) 87 - 138 sec Blood 11/16/2023 12:4 4 PM CDT 11/16/2023 12:44 PM CDT Emilio Wahl MD LAB BLOOD ORDERABLES Final Resul t MARK [place]ENT [address] [address]ia [place] [address] * (ABNORMAL) POC Activated Clotting Time, High Range (11/16/2023 12:24 PM CDT) ACT 337(H) 87 - 138 sec Blood 11/16/2023 12:2 4 PM CDT 11/16/2023 12:24 PM CDT Result Manuel Wahl MD LAB BLOOD ORDERABLES Final Resul t Performing Organization Address [facility] de Phone Number MARK DENT [address] [address] [facility] [place] [place] [address] * (ABNORMAL) POC Activated Clotting Time, High Range (11/16/2023 12:13 PM CDT) ACT 280(H) 87 - 138 sec Blood 11/16/2023 12:1 3 PM CDT 11/16/2023 12:13 PM CDT Result Manuel Wahl MD LAB BLOOD ORDERABLES Final Resul t Performing Organization Address [facility] de Phone Number MARK DENT [address] [address]ia [place] [place] [place] [address] * Check Sample (11/16/2023 8:26 AM CDT) ABO Rh A Positive CH HCLL OTHER 11/16/2023 8:26 AM CDT 11/16/2023 8:38 AM CDT Result Manuel Wahl MD LAB BLOOD ORDERABLES Final Resul t Performing Organization Address [facility] de Phone Number [facility] [address] [address] [facility] [place] [address] CH documented in this encounter Visit Diagnoses [...] 11/17/2023 documented in this encounter Care Teams Angular Js Developer Relationship Specialty Start Date End Date Gadiel Zavala MD [address] [address] PCP - General 06/13/16 Lyudmila Knox, RN Registered Nurse 04/14/17 Jennifer Escalona, RN Registered Nurse 05/10/17 documented as of this encounter
--- OUTSIDE RECORDS SUMMARY | 2024-04-17 17:17 | XMS_ITS | Encounter Summary ---
Author Organization [facility] Address [address] [place] [address] Care Team Providers Care Planning Division Superintendent Name Role Phone Gadiel Zavala MD Primary Care Provider [phone] Lyudmila Knox RN Unavailable Unavailable Jennifer Escalona RN Unavailable Agustina vailable Encounter Details Date Type Department Care Team (Late st Contact Info) Description 08/08/2022 Orders Only [facility] Cardiology [address] [place] [address] [place] [address] [place] [address] Social History Tobacco Use Types Packs/Day Years Used Date Smoking Tobacco: Former Cigarettes Q uit: 04/14/1987 Smokeless Tobacco: Never Alcohol Use Standard Drinks/Week Comments Yes 0 (1 standard drink = 0.6 oz pur e alcohol) social Comments No Sex and Gender Information Value Date Recorded Sex Assigned at Not on file 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
--- OUTSIDE RECORDS SUMMARY | 2024-04-17 17:17 | XMS_ITS | Encounter Summary ---
Author Organization [facility] Healthcare Address [address] [place] [address] Care Team Providers Care Computer Forensics Analyst Name Role Phone Gadiel Zavala MD Primary Care Provider [phone] [phone] Lyudmila Knox RN Unavailable Unavailable Jennifer Escalona RN Unavailable Agustina vailable Reason for Visit * Cardiology (Routine) - Closed Specialty Diagnoses / Procedures Referred By Delores t Referred To Contact Diagnoses PAF (paroxysmal atrial fibrillation) (CMS/HCC) (HCC) Procedures DEVICE CHECK - REMOTE Emilio Leggett MD [address] [place] [address] Phone: tel: fax: Referral ID Status Reason Start Date Expiration Date Visits Re quested Visits Authorized [id number] Closed 10/13/2023 04/13/2025 1 1 Encounter Details Date Type Department Care Team (Latest Contact Info) Description 12/04/2023 10:15 AM CDT Ancillary Procedure [facility] Cardiology [address] [place] [address] [place] [phone] Status post placement of implantable loop recorder [...] often do you attend chur ch or adventist services? 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 Dx; Syncope, Afib. DOI 08/08/2022-[place]. Carelink remote monitoring. Amulet placed 11/16/23 Routine [...] recorder- Primary PAF (paroxysmal atrial fibrillation) (CMS/HCC) ([facility]) Atrial fibrillation Syncope and collapse documented in this encounter Care Teams Computer Forensics Analyst Relationship Specialty Start Date End Date Gadiel Zavala MD [address] [place] [id number] PCP - General 06/13/16 Lyudmila Knox, RN Registered Nurse 04/14/17 Jennifer Escalona, RN Registered Nurse 05/10/17 documented as of this encounter
--- OUTSIDE RECORDS SUMMARY | 2024-04-17 17:17 | XMS_ITS | Encounter Summary ---
Author Organization [facility] Healthcare Address [address] [place] [address] Care Team Providers Care Manager Primary Name Role Phone Gadiel Zavala MD Primary Care Provider [phone] [phone] Lyudmila Knox RN Unavailable Unavailable Jennifer Escalona [...] Expiration Date Visits Re quested Visits Authorized [id number] Closed 08/09/2022 02/09/2024 1 1 Encounter Details Date Type Department Care Team (Latest Contact Info) Description 04/17/2023 12:00 PM CHIEF TECHNICIAN Ancillary Procedure [facility] Cardiology [address] [place] [phone] Paroxysmal atrial fibrillation (CMS/HCC) (HCC); Status post [...] file Legal Sex Female 3:22 AM CHIEF TECHNICIAN Gender Identity Not on file Sexual [...] CHECK - REMOTE Routine 04/19/2023 10:52 AM CHIEF TECHNICIAN Paroxysmal atrial fibrillation (CMS/HCC) (HCC) Status post placement of implantable loop recorder Syncope and collapse documented in this encounter Results * DEVICE CHECK - REMOTE (04/19/2023 10:52 AM CHIEF TECHNICIAN) Anatomical Region Laterality Modality Other Narrative 04/21/2023 8:07 AM CHIEF TECHNICIAN Medtronic REVEAL LinQ implanted August 08, 2022 [...] monitor remotely. ? Sonny McAlexnder ? Device Granite Installer us Bobo Perez MD CV CARDIAC SERVICES PROC EDURES Final Result documented in this encounter Visit Diagnoses Diagnosis Paroxysmal atrial fibrillation (CMS/HCC) (HCC) Atrial fibrillation Status post placement of implantable loop recorder Syncope and collapse documented in this encounter Care Teams Manager Primary Relationship Specialty Start Date End Date Gadiel Zavala MD [address] [address] PCP - General 06/13/16 Lyudmila Knox, RN Registered Nurse 04/14/17 Jennifer Escalona, RN Registered Nurse 05/10/17 documented as of this encounter
--- OUTSIDE RECORDS SUMMARY | 2024-04-17 17:18 | XMS_ITS | Encounter Summary ---
Author Organization [facility] Address [address] [place] [address] Care Team Providers Care Braid Folder Name Role Phone Gadiel Zavala MD Primary Care Provider [phone] [phone] Lyudmila Knox RN Unavailable Unavailable Jennifer Escalona RN Unavailable Agustina vailable Encounter Details Date Type Department Care Team (Late st Contact Info) Description 06/22/2022 Telephone [facility] Cardiology [address] [place] [address] [place] [address] [place] [address] Social History Tobacco Use Types Packs/Day Years Used Date Smoking Tobacco: Former Cigarettes Q uit: 04/14/1987 Smokeless Tobacco: Never Alcohol Use Standard Drinks/Week Comments Yes 0 (1 standard drink = 0.6 oz pur e alcohol) social Comments No Sex and Gender Information Value Date Recorded Sex Assigned at Not on file 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 ICE MEMBER * Telephone Encounter - Lillie Jamison - 06/22/2022 2:35 PM CST Pt states 08/08/22 will be a good date for her to schedule loop recorder implant. Contact: ICE MEMBER documented in this encounter Plan of Treatment [...] on filedocumented in this encounter Care Teams Braid Folder Relationship Specialty Start Date End Date Gadiel Zavala MD [address] [address] PCP - General 06/13/16 Lyudmila Knox, RN Registered Nurse 04/14/17 Jennifer Escalona, LOGAN Registered Nurse 05/10/17 documented as of this encounter
--- OUTSIDE RECORDS SUMMARY | 2024-04-17 17:18 | XMS_ITS | Encounter Summary ---
Author Organization [facility] Address [address] [place] [address] Care Team Providers Care Tobacco Dipper Name Role Phone Gadiel Zavala MD Primary Care Provider +1 -[phone] Lyudmila Knox RN Unavailable Unavailable Jennifer Escalona RN Unavailable Agustina vailable Reason for Referral * Consultation (Routine) - Closed Specialty Diagnoses / Procedures Referred By Contmarianela t Referred To Contact Cardiology Diagnoses Mixed hyperlipidemia Paroxysmal atrial fibrillation (CMS/HCC) (HCC) Gadiel Zavala MD [address] [address] Phone: tel: fax: [facility] Cardiology [address] [facility] [address] [place] [address] Phone: tel: fax: Referral ID Status Reason Start Date Expiration Date V isits Requested Visits Authorized [id number] Closed Specialty Services Required 06/21/2022 11/29/2022 5 5 Question Answer Please select the performing region: [facility] [[id number]] Please select the performing department: [facility] CARD [facility] MRYVL [[id number]] # of visits: 1 R PRESS SUPERVISOR Reason for Visit * Reason Comments Follow-up 2-3 mo f/u Atrial Fibrillation Hypertension * Consultation (Routine) - Closed Specialty Diagnoses / Procedures Referred By Contac t Referred To Contact Cardiology Diagnoses Mixed hyperlipidemia Paroxysmal atrial fibrillation (CMS/HCC) (HCC) Gadiel Zavala MD [address] [address] Phone: tel: fax: [facility] Cardiology [address] [place] [address] Phone: tel: fax: Referral ID Status Reason Start Date Expiration Date V isits Requested Visits Authorized [id number] Closed Specialty Services Required 06/21/2022 11/29/2022 5 5 Encounter Details Date Type Department Care Team (Latest Contact Info) Description 06/22/2022 9:00 AM POWER PRESS SUPERVISOR Office Visit [facility] Cardiology [address] [place] [address] Bobo Perez MD [address] [facility] [address] [place] [address] Paroxysmal atrial fibrillation (CMS/HCC) (HCC) (Primary Dx); [...] on file Legal Sex Female 3:22 AM POWER PRESS SUPERVISOR Gender Identity Not on file Sexual Orientation Not on file documented as of this encounter Last Filed Vital Signs Vital Sign Reading Time Taken Comments Blood Pressure 128/72 06/22/2022 9:05 AM POWER PRESS SUPERVISOR Pulse 64 06/22/2022 9:05 AM POWER PRESS SUPERVISOR Temperature - - Respiratory Rate - - Oxygen Saturation 98% 06/22/2022 9:05 AM POWER PRESS SUPERVISOR Inhaled Oxygen Concentration - - Weight 58.2 kg (128 lb 4.8 oz) 06/22/2022 9:05 A M POWER PRESS SUPERVISOR Height 160 cm (5' 3 ) 06/22/2022 9:05 AM POWER PRESS SUPERVISOR Body Mass Index 22.73 06/22/2022 9:05 AM POWER PRESS SUPERVISOR documented in this encounter Progress Notes * [...] episode of AFib with RVR. 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 Recommendations to follow. -she continues to have frequent falls. Thirty day field crops harvest machine operator without documented recurrence of AFib/flutter. However, patient [...] This is a patient who presented to [facility] for laparoscopic right hemicolectomy on October 13, [...] her hospitalization. 11/17/2021 Hospital follow-up with [facility] CLERICAL ADMINISTRATOR - Kaitlin Bond comes to the office [...] syncope. Taking ASA 81mg daily. Thirty day field crops harvest machine operator worn no AFib noted. MEDICAL HISTORY Past [...] Cholesterol Total, POC 240 mg/dL 05/04/22 AMBULATORY RETREAD MOLD OPERATOR REPORT Type of monitor : 30 day [...] EKG, electronic medical record, and bloodwork/lipids. Reviewed [facility] records, 12 lead EKG 10/16/2021 AFib RVR [address] abnormality consider ischemia Harleen Perez MD, [facility] This note is dictated and transcribed using Pix[employer] Direct Software. Erosion Control Coordinator variancesmay occur. Despite proofreading, typographical errors may occur. R PRESS SUPERVISOR documented in this encounter Plan of [...] mouth added in this encounter Care Teams Tobacco Dipper Relationship Specialty Start Date End Date Gadiel Zavala MD [address] [address] PCP - General 06/13/16 Lyudmila Knox, RN Registered Nurse 04/14/17 Jennifer Escalona, RN Registered Nurse 05/10/17 documented as of this encounter
--- OUTSIDE RECORDS SUMMARY | 2024-04-17 17:18 | XMS_ITS | Encounter Summary ---
Author Organization [facility] Address [address] [place] [address] Care Team Providers Care Action Installer Name Role Phone Gadiel Zavala MD Primary Care Provider +1 -[phone] Lyudmila Knox RN Unavailable Unavailable Jennifer Escalona RN Unavailable Agustina vailable Reason for Visit * Reason Onset Date Comments Authorization/Certification 08/02/2022 Encounter Details Date Type Department Care Team (Late st Contact Info) Description 08/02/2022 Telephone [facility] Cardiology [address] [facility] [address] [place] [address] Bobo Perez MD [address] [facility] [address] [place] [address] Authorization/Certifica tion Social History Tobacco Use Types Packs/Day Years Used Date Smoking Tobacco: Former Cigarettes Q uit: 04/14/1987 Smokeless Tobacco: Never Alcohol Use Standard Drinks/Week Comments Yes 0 (1 standard drink = 0.6 oz pur e alcohol) social Comments No Sex and Gender Information Value Date Recorded Sex Assigned at Not on file Legal Sex Female 3:22 AM HIGH SCHOOL PRINCIPAL Gender Identity Not on file Sexual Orientation Not on file documented as of this encounter Miscellaneous Notes * Telephone Encounter - Deborah Platt - 08/02/2022 6:32 PM CDT Called [facility] to check status,. NPR for CPT code 63961 Call ref # [id number], No further action required * Telephone Encounter - Deborah Platt - 08/02/2022 6:31 PM CDT ----- Message from Katey Griffin RN sent at 06/22/2022 2:13 PM HIGH SCHOOL PRINCIPAL ----- PROCEDURE/TEST ORDERED:loop recorder LOCATION: DATE OF [...] on filedocumented in this encounter Care Teams Action Installer Relationship Specialty Start Date End Date Gadiel Zaavla MD [address] [place] [address] PCP - General 06/13/16 Lyudmila Knox, RN Registered Nurse 04/14/17 Jennifer Escalona, RN Registered Nurse 05/10/17 documented as of this encounter
--- OUTSIDE RECORDS SUMMARY | 2024-04-17 17:19 | XMS_ITS | Encounter Summary ---
Author Organization [facility] Address [address] [place] [address] Care Team Providers Care Panel Flow Machine Operator Name Role Phone Gadiel Zavala MD Primary Care Provider +1 -[phone] Lyudmila Knox RN Unavailable Unavailable Jennifer Escalona RN Unavailable Agustina vailable Encounter Details Date Type Department Care Team (Late st Contact Info) Description 10/16/2021 Orders Only [facility] Cardiology [address] [place] [address] [place] [address] [place] [address] Social History Tobacco Use Types Packs/Day Years Used Date Smoking Tobacco: Former Cigarettes Q uit: 04/14/1987 Smokeless Tobacco: Never Alcohol Use Standard Drinks/Week Comments Yes 0 (1 standard drink = 0.6 oz pur e alcohol) social Comments No Sex and Gender Information Value Date Recorded Sex Assigned at Not on file Legal Sex Female 3:22 AM DECK SCALER Gender Identity Not on file Sexual Orientation [...] on filedocumented in this encounter Care Teams Panel Flow Machine Operator Relationship Specialty Start Date End Date Gadiel Zavala MD [address] [address] PCP - General 06/13/16 Lyudmila Knox, RN Registered Nurse 04/14/17 Jennifer Escalona, RN Registered Nurse 05/10/17 documented as of this encounter
--- OUTSIDE RECORDS SUMMARY | 2024-04-17 17:19 | XMS_ITS | Encounter Summary ---
Author Organization [facility] Address [address] [place] [address] Care Team Providers Care Restorative Care Technician Name Role Phone Gadiel Zavala MD Primary Care Provider +1 -[phone] Encounter Details Date Type Department Care Team (Latest Contact Info) Description 07/07/2016 10:04 AM ELECTRONICS TECHNOLOGY INSTRUCTOR - 07/07/2016 11:59 PM [facility] Hospital Encounter [facility] [phone] Tae Duran MD [address] [id number] [place] [address] Discharge Disposition: Discharge to home or self care Social History Tobacco Use Types Packs/Day Years Used Date Smoking Tobacco: Never Assessed Comments Unknown Sex and Gender Information Value Date Recorded Sex Assigned at Not on file Legal Sex Female 3:22 AM ELECTRONICS TECHNOLOGY INSTRUCTOR Gender Identity Not on file Sexual Orientation Not on file documented as of this encounter Discharge Disposition Disposition Code Departure Means Destination Discharge to home or self care documented in this encounter Plan of Treatment Not on file documented as of this encounter Visit Diagnoses Not on filedocumented in this encounter Care Teams Restorative Care Technician Relationship Specialty Start Date End Date Gadiel Zavala MD [address] [address] PCP - General 06/13/16 documented as of this encounter
--- OUTSIDE RECORDS SUMMARY | 2024-04-17 17:19 | XMS_ITS | Encounter Summary ---
Author Organization [facility] Address [address] [facility] [address] [place] [address] Care Team Providers Care Live In Caregiver Name Role Phone Gadiel Zavala MD Primary Care Provider +1 -[phone] Lyudmila Knox RN Unavailable Unavailable Jennifer Escalona RN Unavailable Agustina vailable Encounter Details Date Type Department Care Team (Late st Contact Info) Description 01/27/2022 Telephone [facility] Cardiology [address] [place] [address] Mylene Lanier, FANNIE [address] [place] [address] Social History Tobacco Use Types Packs/Day Years Used Date Smoking Tobacco: Former Cigarettes Q uit: 04/14/1987 Smokeless Tobacco: Never Alcohol Use Standard Drinks/Week Comments Yes 0 (1 standard drink = 0.6 oz pur e alcohol) social Comments No Sex and Gender Information Value Date Recorded Sex Assigned at Not on file Legal Sex Female 3:22 AM COMMISSIONER OF INTERNAL REVENUE Gender Identity Not on file Sexual Orientation Not on file documented as of this encounter Miscellaneous Notes * Telephone Encounter - Lyudmila Mcduffie RN - 01/27/2022 9:46 AM CDT Faxed recent echo and will address cardiac clearance after it is received. * Telephone Encounter - Lillie Jamison - 01/27/2022 9:01 AM CDT Charlotte BASKET SORTER called from [facility] surgery [place] states pt is scheduled for a procedure [...] filedocumented in this encounter Care Teams Live In Caregiver Relationship Specialty Start Date End Date Gadiel Zavala MD [address] [id number] PCP - General 06/13/16 Lyudmila Knox, RN Registered Nurse 04/14/17 Jennifer Escalona, RN Registered Nurse 05/10/17 documented as of this encounter
--- OUTSIDE RECORDS SUMMARY | 2024-04-17 17:19 | XMS_ITS | Encounter Summary ---
Author Organization [facility] Address [address] [place] [address] Care Team Providers Care Literature Teacher Name Role Phone Gadiel Zavala MD Primary Care Provider +1 -[phone] Lyudmila Knox RN Unavailable Unavailable Encounter Details Date Type Department Care Team (Late st Contact Info) Description 05/03/2017 6:41 AM RADIO TESTER - 05/03/2017 9:01 AM RADIO TESTER Hospital Encounter [facility] [address] [place] [address] [place] [address] [facility] [address] [place] [address] Discharge Disposition: Discharge to home or self care Social History Tobacco Use Types Packs/Day Years Used Date Smoking Tobacco: Former Cigarettes Q uit: 04/14/1987 Smokeless Tobacco: Never Comments Unknown Sex and Gender Information Value Date Recorded Sex Assigned at Not on file Legal Sex Female 3:22 AM RADIO TESTER Gender Identity Not on file Sexual Orientation Not on file documented as of this encounter Last Filed Vital Signs Vital Sign Reading Time Taken Comments Blood Pressure 152/92 05/03/2017 8:37 AM RADIO TESTER Pulse 88 05/03/2017 8:37 AM RADIO TESTER Temperature 36.5 ??C (97.7 ??F) 05/03/2017 7:05 AM CS T Respiratory Rate 16 05/03/2017 8:37 AM RADIO TESTER Oxygen Saturation 100% 05/03/2017 8:37 AM RADIO TESTER Inhaled Oxygen Concentration - - Weight 57.2 kg (126 lb) 05/03/2017 7:05 AM RADIO TESTER Height 160 cm (5' 3 ) 05/03/2017 7:05 AM RADIO TESTER Body Mass Index 22.32 05/03/2017 7:05 AM RADIO TESTER documented in this encounter Discharge Instructions * Discharge Instructions* Whitney Gaona RN - 05/03/2017 8:34 AM RADIO TESTER Post-Procedure Instructions for Spinal Cord Stimulator Trial [...] immediately with any of these symptoms at [phone]. After hourscontact the [facility] Filling [facility] at [phone] and she will reach your physician for you. Do not try and pull off tape, just reinforce if it start to peel up. In case of an emergency call 911 O TESTER documented in this encounter Medications at Time [...] .Procedure(s): Neurostimulator Implant Electrode 1 Per Lead [address]. Brice Eisenberg MD. Date: 05/03/2017 Time: 7:34 AM O TESTER Source Note - Brice Eisenberg MD - 04/14/2017 10:45 AM RADIO TESTER Patient Name: Kaitlin Bond : 1950 Today's [...] there are potential variances in recording and spotlight operator. O TESTER documented in this encounter Miscellaneous Notes * [...] under fluoroscopic guidance until it contact the Q8ehzenx. After negative aspiration, 1ml of local anesthetic [...] the assistance of the spinal cord stimulator hr representative, and the patient endorsed coverage of [...] recovery area and post-operative instructions were reviewed. O TESTER documented in this encounter Plan of Treatment [...] 1 VIEW IP Routine 05/03/2017 8:09 AM RADIO TESTER FL FLUOROSCOPY < 1 HOUR IP Routine 05/03/19 18 8:09 AM RADIO TESTER NEUROSTIMULATOR IMPLANT ELECTRODE 1 PER LEAD [address] 05/03/2017 7:35 AM RADIO TESTER LOW BACK PAIN documented in this encounter Results * XR Spine Thoracic 1 View (05/03/2017 8:09 AM RADIO TESTER) Narrative [facility] - 05/19/2017 1:34 PM RADIO TESTER The images from this study are not interpreted by Radiology. ??Please refer to the physician's procedure / OR operative note. Brice Eisenberg MD IMG XR PROCEDURES Fin al Result Performing Organization Address [facility]/ZIP Co de Phone Number [facility] * FL Fluoroscopy < 1 Hour (05/03/2017 8:09 AM RADIO TESTER) Narrative [facility] - 07/25/2017 1:40 PM CDT The images from this study are not interpreted by Radiology. ??Please refer to the physician's procedure / OR operative note. Brice Eisenberg MD IMG FLUOROSCOPY PROCE DURES Final Result Performing Organization Address [facility]/ZIP Co de Phone Number [facility] documented in this encounter Visit Diagnoses Not on filedocumented in this encounter Active and Recently Administered Medications Times are shown in RADIO TESTER. PRN Medication Order 05/01/2017 05/02/2017 05/03/2017 ceFAZolin in 0.9% sod chloride 1 gram/10 mL syringe (CANCELED) As needed, Starting on Mon05/03/17 at 0741, Intra-Op 0740 (Given - Provid er: Whitney Gaoan, LOGAN) fentaNYL (SUBLIMAZE) preservative free syringe (CANCELED) [...] 05/03/2017 documented in this encounter Care Teams Literature Teacher Relationship Specialty Start Date End Date Gadiel Zavala MD [address] [address] PCP - General 06/13/16 Lyudmila Knox, RN Registered Nurse 04/14/17 documented as of this encounter
--- OUTSIDE RECORDS SUMMARY | 2024-04-17 17:19 | XMS_ITS | Encounter Summary ---
Author Organization [facility] Healthcare Address [address] [place] [address] Care Team Providers Care Front Office Java Developer Name Role Phone Gadiel Zavala MD Primary Care Provider [phone] -[phone] Lyudmila Knox RN Unavailable Unavailable Encounter Details Date Type Department Care Team (Latest Contact Info) Description 05/03/2017 7:28 AM MONORAIL CHARGER OPERATOR - 05/03/2017 11:59 PM MONORAIL CHARGER OPERATOR Hospital Encounter [facility] [address] [place] [address] Discharge Disposition: Discharge to home or self care Social History Tobacco Use Types Packs/Day Years Used Date Smoking Tobacco: Former Cigarettes Q uit: 04/14/1987 Smokeless Tobacco: Never Comments Unknown Sex and Gender Information Value Date Recorded Sex Assigned at Not on file Legal Sex Female 3:22 AM MONORAIL CHARGER OPERATOR Gender Identity Not on file Sexual [...] 1 VIEW IP Routine 05/03/2017 8:09 AM MONORAIL CHARGER OPERATOR FL FLUOROSCOPY < 1 HOUR IP Routine 05/03/2017 8:09 AM MONORAIL CHARGER OPERATOR documented in this encounter Results * XR Spine Thoracic 1 View (05/03/2017 8:09 AM MONORAIL CHARGER OPERATOR) Narrative [facility] - 05/19/2017 1:34 PM MONORAIL CHARGER OPERATOR The images from this study are not interpreted by Radiology. ??Please refer to the physician's procedure / OR operative note. us Brice Eisenberg MD IMG XR PROCEDURES Fin al Result [facility] * [place] Fluoroscopy < 1 Hour (05/03/2017 8:09 AM MONORAIL CHARGER OPERATOR) Narrative [facility] - 07/25/2017 1:40 PM CDT The images from this study are not interpreted by Radiology. ??Please refer to the physician's procedure / OR operative note. Brice Eisenberg MD IMG FLUOROSCOPY [place] Final Result [facility] documented in this encounter Visit Diagnoses Not on filedocumented in this encounter Care Teams Front Office Java Developer Relationship Specialty Start Date End Date Gadiel Zavala MD [address] [address] PCP - General 06/13/16 Lyudmila Knox, RN Registered Nurse 04/14/17 documented as of this encounter
--- OUTSIDE RECORDS SUMMARY | 2024-04-17 17:19 | XMS_ITS | Encounter Summary ---
Author Organization [facility] Address [address] [facility] [address] [place] [address] Care Team Providers Care Fern Cutter Name Role Phone Gadiel Zavala MD Primary Care Provider +1 -[phone] Lyudmila Knox RN Unavailable Unavailable Jennifer Escalona RN Unavailable Agustina vailable Encounter Details Date Type Department Care Team (Late st Contact Info) Description 10/17/2021 Orders Only [facility] Cardiology [address] [place] [address] [place] [address] [place] [address] Social History Tobacco Use Types Packs/Day Years Used Date Smoking Tobacco: Former Cigarettes Q uit: 04/14/1987 Smokeless Tobacco: Never Alcohol Use Standard Drinks/Week Comments Yes 0 (1 standard drink = 0.6 oz pur e alcohol) social Comments No Sex and Gender Information Value Date Recorded Sex Assigned at Not on file Legal Sex Female 3:22 AM VOLUNTEER RECRUITER Gender Identity Not on file Sexual Orientation [...] on filedocumented in this encounter Care Teams Fern Cutter Relationship Specialty Start Date End Date Gadiel Zavala MD [address] [address] PCP - General 06/13/16 Lyudmila Knox, RN Registered Nurse 04/14/17 Jennifer Escalona, RN Registered Nurse 05/10/17 documented as of this encounter
--- OUTSIDE RECORDS SUMMARY | 2024-04-17 17:19 | XMS_ITS | Encounter Summary ---
Author Organization [facility] Healthcare Address [address] [place] [address] Care Team Providers Care Ostrich Farmer Name Role Phone Gadiel Zavala MD Primary Care Provider +1 -[phone] Lyudmila Knox RN Unavailable Unavailable Jennifer Escalona RN Unavailable Agustina vailable Encounter Details Date Type Department Care Team (Late st Contact Info) Description 06/28/2017 9:53 AM CONSTRUCTION IRONWORKER HELPER - 06/28/2017 11:02 AM CONSTRUCTION IRONWORKER HELPER Hospital Encounter [facility] [address] [place] [address] [place] [address] [facility] [address] [place] [id number] Lumbar post-laminectomy syndrome; Lumbosacral spondylosis without myelopathy; [...] on file Legal Sex Female 3:22 AM CONSTRUCTION IRONWORKER HELPER Gender Identity Not on file Sexual Orientation Not on file documented as of this encounter Last Filed Vital Signs Vital Sign Reading Time Taken Comments Blood Pressure 164/110 06/28/2017 10:16 AM CONSTRUCTION IRONWORKER HELPER patient will fu with pcp Pulse 87 06/28/2017 10:16 AM CONSTRUCTION IRONWORKER HELPER Temperature 36.8 ??C (98.2 ??F) 06/28/2017 1 0:16 AM CONSTRUCTION IRONWORKER HELPER Respiratory Rate 16 06/28/2017 10:1 6 AM CONSTRUCTION IRONWORKER HELPER Oxygen Saturation 100% 06/28/2017 10: 16 AM CONSTRUCTION IRONWORKER HELPER Inhaled Oxygen Concentration - - Weight - [...] for : Procedure(s): Neurostimulator Analysis Spinal Cord [address] TRUCTION IRONWORKER HELPER Source Note - Brice Eisenberg MD - 06/22/2017 11:10 AM CONSTRUCTION IRONWORKER HELPER Patient Name: Kaitlin Bond : 1950 Today's [...] ABD- WNL EXTR- WNL Post-op Dx: Same TRUCTION IRONWORKER HELPER documented in this encounter Miscellaneous Notes * Perioperative Nursing Note - Shruthi Ramirez RN - 06/28/2017 10:23 AM CST Dressings were removed, incisions look great, no warmth or redness, glue is intact, pt tolerated well. TRUCTION IRONWORKER HELPER * Op Note - Brice Eisenberg MD - 06/28/2017 10:15 AM CST Procedure performed: Complex reprogramming of spinal cord stimulator pulse generator Indication for procedure: Patient is returning following spinal cord stimulator implant with diagnoses of lumbago and lumbar post-laminectomy syndrome. Description procedure: With the help of the [facility] accounts receivable representative, complex reprogramming of Patspinal cord stimulator pulse generator was performed. Burst stimulation was activated. Note that her incision sites look excellent and there is no evidence of infection. We will plan to see her back in 1 month earlier if needed. She was cautioned against any excessive bending lifting or twisting for the next 5 weeks. TRUCTION IRONWORKER HELPER documented in this encounter Plan of [...] Associated Diagnosis Comments NEUROSTIMULATOR ANALYSIS SPINAL CORD [address] 06/28/2017 4:19 PM CONSTRUCTION IRONWORKER HELPER post op stimm documented in this encounter Visit Diagnoses Diagnosis Lumbar post-laminectomy syndrome Postlaminectomy syndrome, lumbar region Lumbosacral spondylosis without myelopathy Radiculopathy, lumbosacral region Thoracic or lumbosacral neuritis or radiculitis, unspecified Spinal stenosis of lumbar region without neurogenic claudication Spondylosis of cervical joint without myelopathy documented in this encounter Care Teams Ostrich Farmer Relationship Specialty Start Date End Date Gadiel Zavala MD [address] [address] PCP - General 06/13/16 Lyudmila Knox RN Registered Nurse 04/14/17 Jennifer Escalona, RN Registered Nurse 05/10/17 documented as of this encounter
--- OUTSIDE RECORDS SUMMARY | 2024-04-17 17:19 | XMS_ITS | Encounter Summary ---
Author Organization [facility] Healthcare Address [address] [place] [address] Care Team Providers Care Surgery Assistant Name Role Phone Gadiel Zavala MD Primary Care Provider +1 [phone] Lyudmila Knox RN Unavailable Unavailable Jennifer Escalona RN Unavailable Agustina vailable Reason for Visit * Reason Comments Follow-up Back Pain Encounter Details Date Type Department Care Team (Late st Contact Info) Description 10/17/2017 3:45 PM CDT Office Visit [facility] [address] [id number] [place] [address] [facility] [address] [id number] Radiculopathy, lumbosacral region (Primary Dx) Discharge Disposition: [...] on file Legal Sex Female 3:22 AM CANCER SPEC Gender Identity Not on file Sexual Orientation [...] there are potential variances in recording and strainer mill operator. documented in this encounter Plan of Treatment [...] Deltoid documented in this encounter Care Teams Surgery Assistant Relationship Specialty Start Date End Date Gadiel Zavala MD [address] [address] PCP - General 06/13/16 Lyudmila Knox, RN Registered Nurse 04/14/17 Jennifer Escalona RN Registered Nurse 05/10/17 documented as of this encounter
--- OUTSIDE RECORDS SUMMARY | 2024-04-17 17:19 | XMS_ITS | Encounter Summary ---
Author Organization [facility] Facility Care Team Providers Care Document Management Consultant Name Role Phone Unavailable Primary Care Provider Unavailabl e Encounter Details Date Type Department Care Team (Late st Contact Info) Description 05/06/2014 1:28 PM ENGLISH TEACHER - 05/06/2014 11:59 PM ENGLISH TEACHER Hospital Encounter [facility] Jack Garza MD [address] [facility] [address] [place] [address] Arthrodesis status Social History Tobacco Use Types Packs/Day Years Used Date Smoking Tobacco: Never Assessed Comments Unknown Sex and Gender Information Value Date Recorded Sex Assigned at Not on file Legal Sex Female 3:22 AM ENGLISH TEACHER Gender Identity Not on file Sexual Orientation Not on file documented as of this encounter Plan of Treatment Not on file documented as of this encounter Procedures Procedure Name Priority Date/Time Associated Diagnosis Comments XR SPINE LUMBAR 2 OR 3 VIEWS Routine 05/06/2014 1:51 PM ENGLISH TEACHER documented in this encounter Results * XR Spine Lumbar 2 Or 3 View (05/06/2014 1:51 PM ENGLISH TEACHER) Anatomical Region Laterality Modality Spine N/A Radiographic Alexsandra ging 05/06/2014 1:51 PM ENGLISH TEACHER Narrative 05/07/2014 8:10 AM ENGLISH TEACHER Lumbar spine, 05/06/2014 HISTORY: ??Assess arthrodesis status, [...] GARZA MD Requesting Fax: ?? Requesting ID: [id number] Attending Fax: ?? Attending ID: ?? [id number] Completed Time: ?? 05/06/2014 1:51 PM Dictated [...] Requesting: JACK GARZA MD Requesting Requesting ID: [id number] Attending Attending ID: [id number] Completed Time: 05/06/2014 1:51 PM Dictated Time: [...]
--- OUTSIDE RECORDS SUMMARY | 2024-04-17 17:19 | XMS_ITS | Encounter Summary ---
Author Organization [facility] Address [address] [place] [address] Care Team Providers Care Wood Block Artist Name Role Phone Gadiel Zavala MD Primary Care Provider +1 [phone] Lyudmila Knox RN Unavailable Unavailable Jennifer Escalona RN Unavailable Agustina vailable Reason for Visit * Reason Comments Hospital Follow Up Encounter Details Date Type Department Care Team (Late st Contact Info) Description 11/17/2021 2:00 PM CDT Office Visit [facility] Cardiology [address] [place] [address] Mylene Lanier, FANNIE [address] [place] [address] Essential hypertension (Primary Dx); Paroxysmal [...] on file Legal Sex Female 3:[address] Gender Identity Not on file Sexual [...] Lanier, FANNIE - 11/17/2021 2:00 PM CDT [facility] Cardiology [address] [place] [address] Date of Visit: 11/17/2021 Patient ID: Kaitlin Bond 1950 Chief Complaint: Kaitlin Bond is a 71 y.o. female who comes to the office for a hospital follow up for atrial fibrillation History of Present Illness: Kaitlin Bond is a 71 y.o. female with a past medical history of hypertension, hyperlipidemia, recent diagnosis colonic adenocarcinoma, and atrial fibrillation. [facility] [...] of her hospitalization. 11/17/2021 Hospital follow-up with CARDIAC MONITOR TECHNICIAN - Kaitlin Bond comes to the [...] indicated. Mylene Lanier ANP- Nurse Practitioner with [facility] This note is dictated and transcribed using [employer] Direct Software. Bioinformatics Scientist variancesmay occur. Despite proofreading, typographical errors may [...] 03/29/2022 added in this encounter Care Teams Wood Block Artist Relationship Specialty Start Date End Date Gadiel Zavala MD [address] [place] [address] PCP - General 06/13/16 Lyudmila Knox, RN Registered Nurse 04/14/17 Jennifer Escalona, LOGAN Registered Nurse 05/10/17 documented as of this encounter
--- OUTSIDE RECORDS SUMMARY | 2024-04-17 17:19 | XMS_ITS | Encounter Summary ---
Author Organization [facility] Healthcare Address [address] [place] [address] Care Team Providers Care Curing Room Worker Name Role Phone Gadiel Zavala MD Primary Care Provider +1 [phone] Lyudmila Knox RN Unavailable Unavailable Jennifer Escalona RN Unavailable Agustina vailable Encounter Details Date Type Department Care Team (Late st Contact Info) Description 06/22/2017 8:55 AM REVENUE INSPECTOR - 06/22/2017 3:20 PM REVENUE INSPECTOR Hospital Encounter [facility] Operating Room [address] [place] [address] [place] [address] [facility] [address] [place] [address] Lumbar post-laminectomy syndrome; Radiculopathy, lumbosacral region; Spinal [...] on file Legal Sex Female 3:22 AM REVENUE INSPECTOR Gender Identity Not on file Sexual Orientation Not on file documented as of this encounter Last Filed Vital Signs Vital Sign Reading Time Taken Comments Blood Pressure 135/78 06/22/2017 1:45 PM REVENUE INSPECTOR Pulse 92 06/22/2017 1:45 PM REVENUE INSPECTOR Temperature 36.9 ??C (98.4 ??F) 06/22/2017 1:21 PM CS T Respiratory Rate 12 06/22/2017 1:45 PM REVENUE INSPECTOR Oxygen Saturation 98% 06/22/2017 1:45 PM REVENUE INSPECTOR Inhaled Oxygen Concentration - - Weight 55.8 kg (123 lb) 06/22/2017 10:01 AM REVENUE INSPECTOR Height 160 cm (5' 3 ) 06/22/2017 10:01 AM REVENUE INSPECTOR Body Mass Index 21.79 06/22/2017 10:01 AM REVENUE INSPECTOR documented in this encounter Medications at Time of Discharge atorvastatin (LIPITOR) 20 mg tablet Take 1 tablet (20 mg total) by mouth daily 03/31/2017 eszopiclone (LUNESTA) tabletIndications: Insomnia Take 1 tablet (3 mg total) by mouth nightly 1 04/25/2017 levothyroxine (SYNTHROID, LEVOTHROID) 50 mcg tablet Take 1 tablet (50 mcg total) by mouth daily 03/31/2017 omeprazole (PriLOSEC) 40 mg capsule Take 1 capsule (40 mg total) by mouth daily Two tablets daily acetaminophen (TYLENOL) 325 mg tablet Take 2 tablets (650 mg total) by mouth every 4 (four) hours as needed 03/01/2017 amLODIPine (NORVASC) 10 mg tablet Take 1 [...] in this encounter H&P Notes * Brice Esienberg MD - 06/22/2017 11:10 AM CST Patient Name: Kaitlin Bond : 1950 Today's Date: 06/22/2017 PCP: Gaidel Zavala MD Referring: No ref. provider found [...] ABD- WNL EXTR- WNL Post-op Dx: Same NUE INSPECTOR documented in this encounter Miscellaneous Notes * [...] pain and increased function. SURGEON: Omar Eisenberg EQUIPMENT INSTALLER: [facility] ANESTHESIA: Monitored anesthesia care. ESTIMATED [...] under fluoroscopic guidance until it contact the [id number]. After negative aspiration, 1ml of local anesthetic [...] the assistance of the spinal cord stimulator medical collections representative, and the patient endors ed coverage [...] the patient and appropriate site of procedure. NUE INSPECTOR * Pre-Procedure Instructions - Melly Vazquez RN - 06/21/2017 10:27 AM REVENUE INSPECTOR We are pleased that you and your doctor have chosen [facility] for your surgery. We hope that [...] mcg tablet ?? Use no make-up, nail citizen of [place], lotions, oils or powders on your skin. [...] posted at the top of the page. NUE INSPECTOR documented in this encounter Plan of Treatment [...] 1 VIEW IP Routine 06/22/2017 12:53 PM REVENUE INSPECTOR FL FLUOROSCOPY < 1 HOUR IP Routine 06/22/2017 12:52 PM REVENUE INSPECTOR INSERTION SPINAL CORD STIMULATOR 06/22/2017 11:48 AM REVENUE INSPECTOR BACK PAIN documented in this encounter Results * XR Spine Thoracic 1 View (06/22/2017 12:53 PM REVENUE INSPECTOR) Anatomical Region Laterality Modality Spine N/A Computed Radiogr aphy Impressions 06/22/2017 12:56 PM REVENUE INSPECTOR Radiographic localization for placement of pain management electrodes Electronically signed by: Myles Ruiz M.D. Narrative 06/22/2017 12:56 PM REVENUE INSPECTOR RESULT: EXAMINATION: XR SPINE THORACIC 1 VIEW [...] Fluoroscopy < 1 Hour (06/22/2017 12:52 PM REVENUE INSPECTOR) Narrative RAD_PACS_[facility] - 07/25/2017 1:40 PM CDT The images from this study are not interpreted by Radiology. ??Please refer to the physician's procedure / OR operative note. Brice Eisenberg MD IMG FLUOROSCOPY PROCE DURES Final Result Performing Organization Address City/State/[facility] Co de Phone Number RAD_PACS_CH documented [...] PainIndications:Postoperative Pain New Bag 06/22/2017 1:26 PM REVENUE INSPECTOR 2 mL/hr Lactated Ringer's (LR) infusion - ADS Override Pull Starting on Juany 06/22/17 at 1013, For 1 dose, SHIKHA KAPADIA: cabinet override Lactated Ringer's (LR) infusion 50 mL/hr, intravenous, Continuous, Starting on Juany 06/22/17 at 1100, Pre-Op New Bag 06/22/2017 10:25 AM REVENUE INSPECTOR 1,000 mL 50 mL/hr documented in this [...] Recently Administered Medications Times are shown in REVENUE INSPECTOR. Scheduled Medication Order 06/20/2017 06/21/2017 06/22/2017 ceFAZolin [...] 06/22/2017 documented in this encounter Care Teams Curing Room Worker Relationship Specialty Start Date End Date Gadiel Zavala MD [address] [address] PCP - General 06/13/16 Lyudmila Knox, RN Registered Nurse 04/14/17 Jennifer Escalona, RN Registered Nurse 05/10/17 documented as of this encounter
--- OUTSIDE RECORDS SUMMARY | 2024-04-17 17:19 | XMS_ITS | Encounter Summary ---
Author Organization [facility] Healthcare Address [address] [place] [address] Care Team Providers Care Real Time Analyst Name Role Phone Gadiel Zavala MD Primary Care Provider +1 -[phone] Lyudmila Knox RN Unavailable Unavailable Encounter Details Date Type Department Care Team (Late st Contact Info) Description 05/03/2017 7:30 AM COMMERCIAL CORRESPONDENT - 05/03/2017 8:30 AM [facility] Surgery [facility] [address] [place] [address] [place] [address] [facility] [address] [place] [address] Neurostimulator Implant Electrode 1 Per Lead 99672 Surgery Details Date/Time Status Location OR Service Patient Class Case Class Case Type Trauma Case? 05/03/2017 7:30 AM Posted Pain Management Procedure Center RM 1 Pain Management Outpatient Elective Panel 1 Procedure LRB Anes Op Region Wound Class Comments Neurostimulator Implant Electrode 1 Per Lead [address]49 N/A Conscious Sedation Surgeon Surgeon Role Service Panel Brice Eisenberg MD Primary Pain Managem ent 1 documented in this encounter Social History Tobacco Use Types Packs/Day Years Used Date Smoking Tobacco: Former Cigarettes Q uit: 04/14/1987 Smokeless Tobacco: Never Comments Unknown Sex and Gender Information Value Date Recorded Sex Assigned at Not on file Legal Sex Female 3:22 AM COMMERCIAL CORRESPONDENT Gender Identity Not on file Sexual Orientation Not on file documented as of this encounter Last Filed Vital Signs Vital Sign Reading Time Taken Comments Blood Pressure 148/92 05/03/2017 8:22 AM COMMERCIAL CORRESPONDENT Pulse 87 05/03/2017 8:22 AM COMMERCIAL CORRESPONDENT Temperature 36.5 ??C (97.7 ??F) 05/03/2017 7:05 AM CS T Respiratory Rate 18 05/03/2017 8:22 AM COMMERCIAL CORRESPONDENT Oxygen Saturation 100% 05/03/2017 8:22 AM COMMERCIAL CORRESPONDENT Inhaled Oxygen Concentration - - Weight 57.2 kg (126 lb) 05/03/2017 7:05 AM COMMERCIAL CORRESPONDENT Height 160 cm (5' 3 ) 05/03/2017 7:05 AM COMMERCIAL CORRESPONDENT Body Mass Index 22.32 05/03/2017 7:05 AM COMMERCIAL CORRESPONDENT documented in this encounter Discharge Instructions * Discharge Instructions* Whitney Gaona RN - 05/03/2017 8:34 AM COMMERCIAL CORRESPONDENT Post-Procedure Instructions for Spinal Cord Stimulator Trial [...] immediately with any of these symptoms at [phone]. After hourscontact the [facility] Licensed Practical Vocational Nurse at [phone] and she will reach your physician for you. Do not try and pull off tape, just reinforce if it start to peel up. In case of an emergency call 911 ERCIAL CORRESPONDENT documented in this encounter Medications at Time [...] .Procedure(s): Neurostimulator Implant Electrode 1 Per Lead [address]. Brice Eisenberg MD. Date: 05/03/2017 Time: 7:34 AM ERCIAL CORRESPONDENT Source Note - Brice Eisenberg MD - 04/14/2017 10:45 AM COMMERCIAL CORRESPONDENT Patient Name: Kaitlin Bond : 1950 Today's [...] there are potential variances in recording and net front end developer. ERCIAL CORRESPONDENT documented in this encounter Miscellaneous Notes * [...] under fluoroscopic guidance until it contact the B9yioste. After negative aspiration, 1ml of local anesthetic [...] the assistance of the spinal cord stimulator entry level marketing representative, and the patient endorsed coverage of [...] recovery area and post-operative instructions were reviewed. ERCIAL CORRESPONDENT documented in this encounter Plan of Treatment [...] 1 VIEW IP Routine 05/03/2017 8:09 AM COMMERCIAL CORRESPONDENT FL FLUOROSCOPY < 1 HOUR IP Routine 05/03/19 18 8:09 AM COMMERCIAL CORRESPONDENT NEUROSTIMULATOR IMPLANT ELECTRODE 1 PER LEAD [address]65[address] 05/03/2017 7:35 AM COMMERCIAL CORRESPONDENT LOW BACK PAIN documented in this encounter Results * XR Spine Thoracic 1 View (05/03/2017 8:09 AM COMMERCIAL CORRESPONDENT) Narrative RAD_[facility] - 05/19/2017 1:34 PM COMMERCIAL CORRESPONDENT The images from this study are not interpreted by Radiology. ??Please refer to the physician's procedure / OR operative note. Brice Eisenberg MD IMG XR PROCEDURES Fin al Result Performing Organization Address [facility] Co de Phone Number RAD_PACS_[facility] * FL Fluoroscopy < 1 Hour (05/03/2017 8:09 AM COMMERCIAL CORRESPONDENT) Narrative RAD_PACS[facility] - 07/25/2017 1:40 PM CDT The images from this study are not interpreted by Radiology. ??Please refer to the physician's procedure / OR operative note. Brice Eisenberg MD IMG FLUOROSCOPY PROCE DURES Final Result Performing Organization Address [facility] de Phone Number RAD_PACS_[facility] documented in this encounter Visit Diagnoses Not on filedocumented in this encounter Administered Medications Inactive Administered Medications - up to 3 most recent administrations Medication Order MAR Action Action Date Dose Rate Site ceFAZolin in 0.9% sod chloride 1 gram/10 mL syringe As needed, Starting on Mon05/03/17 at 0741, Intra-Op Given 05/03/2017 7:40 AM COMMERCIAL CORRESPONDENT 1,000 mg fentaNYL (SUBLIMAZE) preservative free syringe As needed, Starting on Mon05/03/17 at 0743, Intra-Op Given 05/03/2017 7:44 AM COMMERCIAL CORRESPONDENT 50 mcg lidocaine-EPINEPHrine (XYLOCAINE with EPI) 2 %-1:200,000 preservative free injection As needed, Starting on Mon05/03/17 at 0744, Intra-Op, Indications: Administration of Local AnesthesiaIndications:Administra tion of Local Anesthesia Given 05/03/2017 7:44 AM COMMERCIAL CORRESPONDENT 20 mL midazolam (VERSED) preservative free injection As needed, Starting on Mon05/03/17 at 0743, Intra-Op Given 05/03/2017 7:42 AM COMMERCIAL CORRESPONDENT 1 mg documented in this encounter Active and Recently Administered Medications Times are shown in COMMERCIAL CORRESPONDENT. PRN Medication Order 05/01/2017 05/02/2017 05/03/2017 ceFAZolin [...] RN) documented in this encounter Care Teams Real Time Analyst Relationship Specialty Start Date End Date Gadiel Zavala MD [address] [address] PCP - General 06/13/16 Lyudmila Knox, RN Registered Nurse 04/14/17 documented as of this encounter
--- OUTSIDE RECORDS SUMMARY | 2024-04-17 17:19 | XMS_ITS | Encounter Summary ---
Author Organization [facility] Healthcare Address [address] [place] [address] Care Team Providers Care Digital Analyst Name Role Phone Gadiel Zavala MD Primary Care Provider +1 [phone] Lyudmila Knox RN Unavailable Unavailable Jennifer Escalona RN Unavailable Agustina vailable Encounter Details Date Type Department Care Team (Latest Contact Info) Description 06/22/2017 10:18 AM NETWORK CONTROL SUPERVISOR - 06/22/2017 11:59 PM NETWORK CONTROL SUPERVISOR Hospital Encounter Diagnostic Imaging [address] [place] [address] Discharge Disposition: Discharge to home or self [...] on file Legal Sex Female 3:22 AM NETWORK CONTROL SUPERVISOR Gender Identity Not on file Sexual [...] 1 VIEW IP Routine 06/22/2017 12:53 PM NETWORK CONTROL SUPERVISOR documented in this encounter Results * XR Spine Thoracic 1 View (06/22/2017 12:53 PM NETWORK CONTROL SUPERVISOR) Anatomical Region Laterality Modality Spine N/A Computed Radiogr aphy Impressions 06/22/2017 12:56 PM NETWORK CONTROL SUPERVISOR Radiographic localization for placement of pain management electrodes Electronically signed by: Myles Ruiz M.D. Narrative 06/22/2017 12:56 PM NETWORK CONTROL SUPERVISOR RESULT: EXAMINATION: XR SPINE THORACIC 1 VIEW [...] on filedocumented in this encounter Care Teams Digital Analyst Relationship Specialty Start Date End Date Gadiel Zavala MD [address] [address] PCP - General 06/13/16 Lyudmila Knox, RN Registered Nurse 04/14/17 Jennifer Escalona, RN Registered Nurse 05/10/17 documented as of this encounter
--- OUTSIDE RECORDS SUMMARY | 2024-04-17 17:19 | XMS_ITS | Encounter Summary ---
Author Organization [facility] Healthcare Address [address] [place] [address] Care Team Providers Care Sales Support Rep Name Role Phone Gadiel Zavala MD Primary Care Provider +1 -[phone] Lyudmila Knox RN Unavailable Unavailable Jennifer Escalona RN Unavailable Agustina vailable Encounter Details Date Type Department Care Team (Late st Contact Info) Description 08/27/[address] [facility] [address] [place] [address] [place] [address] [facility] [address] [place] [address] Social History Tobacco Use Types Packs/Day Years Used Date Smoking Tobacco: Former Cigarettes Q uit: 04/14/1987 Smokeless Tobacco: Never Alcohol Use Standard Drinks/Week Comments Yes 0 (1 standard drink = 0.6 oz pur e alcohol) social Comments No Sex and Gender Information Value Date Recorded Sex Assigned at Not on file Legal Sex Female 3:22 AM PAINTER AND PAPERHANGER APPRENTICE Gender Identity Not on file Sexual Orientation [...] on filedocumented in this encounter Care Teams Sales Support Rep Relationship Specialty Start Date End Date Gadiel Zavala MD [address] [address] PCP - General 06/13/16 Lyudmila Knox, RN Registered Nurse 04/14/17 Jennifer Escalona, RN Registered Nurse 05/10/17 documented as of this encounter
--- OUTSIDE RECORDS SUMMARY | 2024-04-17 17:19 | XMS_ITS | Encounter Summary ---
Author Organization [facility] Healthcare Address [address] [place] [address] Care Team Providers Care Band And Cuff Cutter Name Role Phone Gadiel Zavala MD Primary Care Provider +1 -[phone] Lyudmila Knox RN Unavailable Unavailable Reason for Visit * Reason Comments Follow-up wants to get SCS tri al done Back Pain right low back into the right hip/buttocks Encounter Details Date Type Department Care Team (Late st Contact Info) Description 04/14/2017 10:45 AM FISHER TRAWL NET Office Visit [facility] [address] [place] [address] [place] [address] [facility] [address] [place] [id number] Cervicalgia (Primary Dx); Cervical radiculopathy; Chronic midline [...] file Legal Sex Female 3:22 AM FISHER TRAWL NET Gender Identity Not on file Sexual Orientation Not on file documented as of this encounter Last Filed Vital Signs Vital Sign Reading Time Taken Comments Blood Pressure 152/100 04/14/2017 11:10 AM FISHER TRAWL NET Pulse 80 04/14/2017 11:10 AM FISHER TRAWL NET Temperature 36.6 ??C (97.9 ??F) 04/14/2017 11:[address] Respiratory Rate 16 04/14/2017 11:10 AM FISHER TRAWL NET Oxygen Saturation 100% 04/14/2017 11:10 AM FISHER TRAWL NET Inhaled Oxygen Concentration - - Weight - - Height - - Body Mass Index - - documented in this encounter Patient Instructions * Patient Instructions* Lyudmila Knox RN - 04/14/2017 10:45 AM FISHER TRAWL NET SCS TRIAL INFO The trial lasts 7 [...] will cause tingling. You will tell the technical sales representative where you feel the tingling and [...] for approximately 3 hours andhave a responsible clark driver to stay with you. You will receive conscious sedation during your trial. This means that you will be awake, but wont care much. You need to be awake so that a technical sales representative from the company can talk to [...] 8 hours, do not have a responsible clark driver to stay with you. You will follow up one week later to determine if the trial is a success. However, during the week you will talk to a rep. Multiple times throughout the week and they will technology coach you through adjustments or anything you may need. As always, please call us if you have any questions after reading your pamphlet [phone] ER TRAWL NET documented in this encounter Discharge Disposition Disposition [...] there are potential variances in recording and senior web applications developer. ER TRAWL NET documented in this encounter Plan of Treatment [...] 10/07/2022 added in this encounter Care Teams Band And Cuff Cutter Relationship Specialty Start Date End Date Gadiel Zavala MD [address] [address] PCP - General 06/13/16 Lyudmila Knox, RN Registered Nurse 04/14/17 documented as of this encounter
--- OUTSIDE RECORDS SUMMARY | 2024-04-17 17:19 | XMS_ITS | Encounter Summary ---
Author Organization [facility] Healthcare Address [address] [place] [address] Care Team Providers Care Data Coder Operator Name Role Phone Gadiel Zavala MD Primary Care Provider [phone] [phone] Encounter Details Date Type Department Care Team (Late st Contact Info) Description 01/31/2017 12:31 PM CDT - 01/31/2017 11:59 PM CDT Hospital Encounter [place] [address] [facility] [address] [place] [address] Discharge Disposition: Discharge to home or self care Social History Tobacco Use Types Packs/Day Years Used Date Smoking Tobacco: Never Assessed Comments Unknown Sex and Gender Information Value Date Recorded Sex Assigned at Not on file Legal Sex Female 3:22 AM POOL TABLE MECHANIC Gender Identity Not on file Sexual Orientation Not on file documented as of this encounter Discharge Disposition Disposition Code Departure Means Destination Discharge to home or self care documented in this encounter Plan of Treatment Not on file documented as of this encounter Visit Diagnoses Not on filedocumented in this encounter Care Teams Data Coder Operator Relationship Specialty Start Date End Date Gadiel Zavala MD [address] [address] PCP - General 06/13/16 documented as of this encounter
--- OUTSIDE RECORDS SUMMARY | 2024-04-17 17:19 | XMS_ITS | Encounter Summary ---
Author Organization [facility] Healthcare Address [address] [place] [address] Care Team Providers Care Retail Support Associate Name Role Phone Gadile Zavala MD Primary Care Provider +1 -[phone] Lyudmila Knox RN Unavailable Unavailable Jennifer Escalona RN Unavailable Agustina vailable Encounter Details Date Type Department Care Team (Late st Contact Info) Description 08/27/2018 Telephone [facility] [address] [place] [address] [place] [address] [facility] [address] [place] [address] Social History Tobacco Use Types Packs/Day Years Used Date Smoking Tobacco: Former Cigarettes Q uit: 04/14/1987 Smokeless Tobacco: Never Alcohol Use Standard Drinks/Week Comments Yes 0 (1 standard drink = 0.6 oz pur e alcohol) social Comments No Sex and Gender Information Value Date Recorded Sex Assigned at Not on file Legal Sex Female 3:22 AM SERVICE CREW SUPERVISOR Gender Identity Not on file Sexual Orientation Not on file documented as of this encounter Miscellaneous Notes * Telephone Encounter - Janine Vail RN - 08/27/2018 2:22 PM CDT Script printed and placed in lock box * Telephone Encounter - Aviva Duran - 08/27/2018 2:11 PM CDT ERIKA WITH [facility] CALLED AND STATED SINCE IT HAS [...] on filedocumented in this encounter Care Teams Retail Support Associate Relationship Specialty Start Date End Date Gadiel Zavala MD [address] [address] PCP - General 06/13/16 Lyudmila Knox, RN Registered Nurse 04/14/17 Jennifer Ecsalona, LOGAN Registered Nurse 05/10/17 documented as of this encounter
--- OUTSIDE RECORDS SUMMARY | 2024-04-17 17:19 | XMS_ITS | Encounter Summary ---
Author Organization [facility] Healthcare Address [address] [place] [address] Care Team Providers Care Mounter Sousaphones Name Role Phone Gadiel Zavala MD Primary Care Provider +1 -[phone] Encounter Details Date Type Department Care Team (Latest Contact Info) Description 07/26/2016 12:48 PM CDT - 07/26/2016 11:59 PM T Hospital Encounter [facility] OP INTERIM [phone] Tae Duran MD [id number] [place] [address] Discharge Disposition: Discharge to home or self care Social History Tobacco Use Types Packs/Day Years Used Date Smoking Tobacco: Never Assessed Comments Unknown Sex and Gender Information Value Date Recorded Sex Assigned at Not on file Legal Sex Female 3:22 AM FINISHED CLOTH EXAMINER Gender Identity Not on file Sexual Orientation Not on file documented as of this encounter Discharge Disposition Disposition Code Departure Means Destination Discharge to home or self care documented in this encounter Plan of Treatment Not on file documented as of this encounter Visit Diagnoses Not on filedocumented in this encounter Care Teams Mounter Sousaphones Relationship Specialty Start Date End Date Gadiel Zavala MD [address] [address] PCP - General 06/13/16 documented as of this encounter
--- OUTSIDE RECORDS SUMMARY | 2024-04-17 17:19 | XMS_ITS | Encounter Summary ---
Author Organization [facility] Healthcare Address [address] [place] [address] Care Team Providers Care Packaging Clerk Name Role Phone Gadiel Zavala MD Primary Care Provider +1 -[phone] Lyudmila Knox RN Unavailable Unavailable Jennifer Escalona RN Unavailable Agustina vailable Encounter Details Date Type Department Care Team (Late st Contact Info) Description 07/03/2017 Telephone [facility] [address] [place] [address] [place] [address] [facility] [address] [place] [address] Social History Tobacco Use Types Packs/Day Years Used Date Smoking Tobacco: Former Cigarettes Q uit: 04/14/1987 Smokeless Tobacco: Never Alcohol Use Standard Drinks/Week Comments Yes 0 (1 standard drink = 0.6 oz pur e alcohol) social Comments Unknown Sex and Gender Information Value Date Recorded Sex Assigned at Not on file Legal Sex Female 3:22 AM INK PRINTER Gender Identity Not on file Sexual Orientation [...] will call for any change in status. PRINTER * Telephone Encounter - Susanna Galarza - 07/03/2017 11:15 AM CST Pt asking if the incision should be burning like fire . PRINTER documented in this encounter Plan of Treatment [...] on filedocumented in this encounter Care Teams Packaging Clerk Relationship Specialty Start Date End Date Gadiel Zavala MD [address] [address] PCP - General 06/13/16 Lyudmila Knox, RN Registered Nurse 04/14/17 Jennifer Escalona, LOGAN Registered Nurse 05/10/17 documented as of this encounter
--- OUTSIDE RECORDS SUMMARY | 2024-04-17 17:19 | XMS_ITS | Encounter Summary ---
Author Organization [facility] Healthcare Address [address] [place] [address] Care Team Providers Care Nutrition Manager Name Role Phone Gadiel Zavala MD Primary Care Provider +1 [phone] Lyudmila Knox RN Unavailable Unavailable Jennifer Escalona RN Unavailable Agustian vailable Encounter Details Date Type Department Care Team (Late st Contact Info) Description 06/22/2017 11:30 AM INTERACTIVE VIDEO TECHNICIAN - 06/22/2017 1:30 PM [facility] Surgery [facility] Operating Room [address] [place] [address] [place]ice Eisen[place] [id number] [place] [address] Insertion Spinal Cord Stimulator Surgery Details Date/Time Status Location OR Service Patient Class Case Class Case Type Trauma Case? 06/22/2017 11:30 AM Posted OPERATING ROOM OR Pain Management Outpatient Elective Panel 1 Procedure LRB Anes Op Region Wound Class Comments Insertion Spinal Cord Stimulator N/A Monitor Anesthesia Care Back Class I - Clean Surgeon Surgeon Role Service Panel Brice Eisenberg [...] on file Legal Sex Female 3:22 AM INTERACTIVE VIDEO TECHNICIAN Gender Identity Not on file Sexual Orientation Not on file documented as of this encounter Last Filed Vital Signs Vital Sign Reading Time Taken Comments Blood Pressure 173/100 06/22/2017 1:30 PM INTERACTIVE VIDEO TECHNICIAN inaccurate r/t to wrong size blood pressure cuff Pulse 96 06/22/2017 1:30 PM INTERACTIVE VIDEO TECHNICIAN Temperature 36.9 ??C (98.4 ??F) 06/22/2017 1 :21 PM INTERACTIVE VIDEO TECHNICIAN Respiratory Rate 15 06/22/2017 1:30 PM INTERACTIVE VIDEO TECHNICIAN Oxygen Saturation 100% 06/22/2017 1:3 0 PM INTERACTIVE VIDEO TECHNICIAN Inhaled Oxygen Concentration - - Weight 55.8 kg (123 lb) 06/22/2017 10:0 1 AM INTERACTIVE VIDEO TECHNICIAN Height 160 cm (5' 3 ) 06/22/2017 10:01 AM INTERACTIVE VIDEO TECHNICIAN Body Mass Index 21.79 06/22/2017 10:01 AM INTERACTIVE VIDEO TECHNICIAN documented in this encounter Medications at Time [...] ABD- WNL EXTR- WNL Post-op Dx: Same RACTIVE VIDEO TECHNICIAN documented in this encounter Miscellaneous Notes * Op Note - Brice Eisenberg MD - 06/22/2017 12:11 PM CST PROCEDURE: Implantation of St. Yong 60 cm leads/arrays x2 and implant of St. Oyng spinal cord stimulator generator PREOPERATIVE DIAGNOSES: Patient [...] pain and increased function. SURGEON: Omar Eisenberg ORTHOPEDIC PHYSICIAN: [facility] ANESTHESIA: Monitored anesthesia care. ESTIMATED BLOOD LOSS: [...] under fluoroscopic guidance until it contact the [id number]. After negative aspiration, 1ml of local anesthetic [...] the assistance of the spinal cord stimulator pest control service representative, and the patient endors ed coverage [...] the patient and appropriate site of procedure. RACTIVE VIDEO TECHNICIAN * Pre-Procedure Instructions - Melly Vazquez RN - 06/21/2017 10:27 AM INTERACTIVE VIDEO TECHNICIAN We are pleased that you and your doctor have chosen [facility] for your surgery. We hope that [...] mcg tablet ?? Use no make-up, nail welsh, lotions, oils or powders on your skin. [...] posted at the top of the page. RACTIVE VIDEO TECHNICIAN documented in this encounter Plan of [...] 1 VIEW IP Routine 06/22/2017 12:53 PM INTERACTIVE VIDEO TECHNICIAN FL FLUOROSCOPY < 1 HOUR IP Routine 06/22/2017 12:52 PM INTERACTIVE VIDEO TECHNICIAN INSERTION SPINAL CORD STIMULATOR 06/22/2017 11:48 AM INTERACTIVE VIDEO TECHNICIAN BACK PAIN documented in this encounter Results * XR Spine Thoracic 1 View (06/22/2017 12:53 PM INTERACTIVE VIDEO TECHNICIAN) Anatomical Region Laterality Modality Spine N/A Computed Radiogr aphy Impressions 06/22/2017 12:56 PM INTERACTIVE VIDEO TECHNICIAN Radiographic localization for placement of pain management electrodes Electronically signed by: Myles Ruiz M.D. Narrative 06/22/2017 12:56 PM INTERACTIVE VIDEO TECHNICIAN RESULT: EXAMINATION: XR SPINE THORACIC 1 VIEW [...] Fluoroscopy < 1 Hour (06/22/2017 12:52 PM INTERACTIVE VIDEO TECHNICIAN) Narrative RAD_PACS_ - 07/25/2017 1:40 PM CDT The images from this study are not interpreted by Radiology. ??Please refer to the physician's procedure / OR operative note. Brice Eisenberg MD IMG FLUOROSCOPY PROCE DURES Final Result Performing Organization Address City/State/[facility] Co de Phone Number RAD_PACS_ documented in this encounter Visit Diagnoses Not on filedocumented in this encounter Administered Medications Inactive Administered Medications - up to 3 most recent administrations Medication Order MAR Action Action Date Dose Rate Site bacitracin injection As needed, Starting on Juany 06/22/17 at 1211, Intra-Op, Indications: Staphylococcal PneumoniaIndications:St aphylococcal Pneumonia Given 06/22/2017 12:11 PM INTERACTIVE VIDEO TECHNICIAN 50,000 Units bupivacaine (PF) (MARCAINE) 0.5 % [...] rative Pain New Bag 06/22/2017 1:26 PM INTERACTIVE VIDEO TECHNICIAN 2 mL/hr Lactated Ringer's (LR) infusion - ADS Override Pull Starting on Juany 06/22/17 at 1013, For 1 dose, SHIKHA KAPADIA: cabinet override Lactated Ringer's (LR) infusion 50 mL/hr, intravenous, Continuous, Starting on Juany 06/22/17 at 1100, Pre-Op New Bag 06/22/2017 10:25 AM INTERACTIVE VIDEO TECHNICIAN 1,000 mL 50 mL/hr lidocaine-EPINEPHrine (XYLOCAINE with EPI) 1 %-1:100,000 injection As needed, Starting on Juany 06/22/17 at 1230, Intra-Op, Indications: Administration of Local AnesthesiaIndications:A dministration of Local Anesthesia Given 06/22/2017 12:30 PM INTERACTIVE VIDEO TECHNICIAN 58 mL Back neomycin-polymyxin B (NEOSPORIN-) 40 mg-200,000 unit/mL irrigation As needed, Starting on Juany 06/22/17 at 1211, Intra-Op, Indications: Prevention of Bacterial Urinary Tract InfectionIndications:Pr evention of Bacterial Urinary Tract Infection Given 06/22/2017 12:11 PM INTERACTIVE VIDEO TECHNICIAN 1 mL Surgical Site polymyxin B injection As needed, Starting on Juany 06/22/17 at 1211, Intra-Op Given 06/22/2017 12:11 PM INTERACTIVE VIDEO TECHNICIAN 500,000 Units sodium chloride (NS) 0.9 % irrigation As needed, Starting on Juany 06/22/17 at 1211, Intra-Op Given 06/22/2017 12:11 PM INTERACTIVE VIDEO TECHNICIAN 1,000 mL Given 06/22/2017 12:10 PM INTERACTIVE VIDEO TECHNICIAN 1,000 mL vancomycin (VANCOCIN) solution As needed, Starting on Juany 06/22/17 at 1231, Intra-Op Given 06/22/2017 12:31 PM INTERACTIVE VIDEO TECHNICIAN 1,000 mg Ba ck documented in this [...] Recently Administered Medications Times are shown in INTERACTIVE VIDEO TECHNICIAN. Scheduled Medication Order 06/20/2017 06/21/2017 06/22/2017 ceFAZolin [...] 06/22/2017 documented in this encounter Care Teams Nutrition Manager Relationship Specialty Start Date End Date Gadiel Zavala MD [address] [address] PCP - General 06/13/16 Lyudmila Knox, RN Registered Nurse 04/14/17 Jennifer Escalona, RN Registered Nurse 05/10/17 documented as of this encounter
--- OUTSIDE RECORDS SUMMARY | 2024-04-17 17:19 | XMS_ITS | Encounter Summary ---
Author Organization [facility] Healthcare Address [address] [place] [address] Care Team Providers Care Greeter Name Role Phone Gadiel Zavala MD Primary Care Provider +1 -[phone] Encounter Details Date Type Department Care Team (Late st Contact Info) Description 08/23/2016 12:09 PM CDT - 08/23/2016 11:59 PM T Hospital Encounter [facility] OP INTERIM [phone] Joe Fuentes MD [address] [facility] [address] [place] [address] Discharge Disposition: Discharge to home or self care Social History Tobacco Use Types Packs/Day Years Used Date Smoking Tobacco: Never Assessed Comments Unknown Sex and Gender Information Value Date Recorded Sex Assigned at Not on file Legal Sex Female 3:22 AM STEEL DIE ENGRAVER Gender Identity Not on file Sexual Orientation Not on file documented as of this encounter Discharge Disposition Disposition Code Departure Means Destination Discharge to home or self care documented in this encounter Plan of Treatment Not on file documented as of this encounter Visit Diagnoses Not on filedocumented in this encounter Care Teams Greeter Relationship Specialty Start Date End Date Gadiel Zavala MD [address] [address] PCP - General 06/13/16 documented as of this encounter
--- OUTSIDE RECORDS SUMMARY | 2024-04-17 17:19 | XMS_ITS | Encounter Summary ---
Author Organization [facility] Address [address] [facility] [address] [place] [address] Care Team Providers Care Reading Coach Name Role Phone Gadiel Zavala MD Primary Care Provider +1 -[phone] Lyudmila Knox RN Unavailable Unavailable Jennifer Escalona RN Unavailable Agustina vailable Reason for Referral * Cardiology (Routine) - Closed Specialty Diagnoses / Procedures Referred By Contac t Referred To Contact Procedures ECG 12 lead Darwin Drake MD [address] [place] [address] Phone: tel: Referral ID Status Reason Start Date Expiration Date Visits Re quested Visits Authorized [id number] Closed 06/15/2022 07/15/2023 1 1 NICAL SERVICES REP Encounter Details Date Type Department Care Team (Late st Contact Info) Description 06/15/2022 Orders Only [facility] Cardiology [address] [facility] [address] [place] [address] Darwin Drake MD [address] [place] [address] Social History Tobacco Use Types Packs/Day Years Used Date Smoking Tobacco: Former Cigarettes Q uit: 04/14/1987 Smokeless Tobacco: Never Alcohol Use Standard Drinks/Week Comments Yes 0 (1 standard drink = 0.6 oz pur e alcohol) social Comments No Sex and Gender Information Value Date Recorded Sex Assigned at Not on file Legal Sex Female 3:22 AM TECHNICAL SERVICES REP Gender Identity Not on file Sexual Orientation [...] on filedocumented in this encounter Care Teams Reading Coach Relationship Specialty Start Date End Date Gadiel Zavala MD [address] [address] PCP - General 06/13/16 Lyudmila Knox, RN Registered Nurse 04/14/17 Jennifer Escalona, LOGAN Registered Nurse 05/10/17 documented as of this encounter
--- OUTSIDE RECORDS SUMMARY | 2024-04-17 17:19 | XMS_ITS | Encounter Summary ---
Author Organization [facility] Healthcare Address [address] [place] [address] Care Team Providers Care Lucerne Farmer Name Role Phone Gadiel Zavala MD Primary Care Provider +1 -[phone] Lyudmila Knox RN Unavailable Unavailable Jennifer Escalona RN Unavailable Agustina vailable Encounter Details Date Type Department Care Team (Latest Contact Info) Description 06/22/2017 10:18 AM DELPHI PROGRAMMER - 06/22/2017 11:59 PM DELPHI PROGRAMMER Hospital Encounter [facility] [address] [place] [address] Discharge Disposition: Discharge to home or self [...] on file Legal Sex Female 3:22 AM DELPHI PROGRAMMER Gender Identity Not on file Sexual Orientation [...] 1 HOUR IP Routine 06/22/2017 12:52 PM DELPHI PROGRAMMER documented in this encounter Results * FL Fluoroscopy < 1 Hour (06/22/2017 12:52 PM DELPHI PROGRAMMER) Narrative RAD_PACS_CH - 07/25/2017 1:40 PM CDT The images from this study are not interpreted by Radiology. ??Please refer to the physician's procedure / OR operative note. Brice Eisenberg MD IMG FLUOROSCOPY SIDRA VIVEROS Final Result Performing Organization Address City/State/[facility] Co de Phone Number RAD_PACS_[facility] documented in this encounter Visit Diagnoses Not on filedocumented in this encounter Care Teams Lucerne Farmer Relationship Specialty Start Date End Date Gadiel Zavala MD [address] [employer] [address] PCP - General 06/13/16 Lyudmila Knox, RN Registered Nurse 04/14/17 Jennifer Escalona, LOGAN Registered Nurse 05/10/17 documented as of this encounter
--- OUTSIDE RECORDS SUMMARY | 2024-04-17 17:19 | XMS_ITS | Encounter Summary ---
Author Organization [facility] Healthcare Address [address] [place] [address] Care Team Providers Care Cotton Tier Name Role Phone Gadiel Zavala MD Primary Care Provider +1 -[phone] Encounter Details Date Type Department Care Team (Late st Contact Info) Description 06/13/2016 8:25 AM SAUSAGE MEAT TRIMMER - 06/13/2016 11:59 PM SAUSAGE MEAT TRIMMER Emergency [facility] Emergency Department [address] [place] [address] Discharge Disposition: Discharge to home or self care Social History Tobacco Use Types Packs/Day Years Used Date Smoking Tobacco: Never Assessed Comments Unknown Sex and Gender Information Value Date Recorded Sex Assigned at Not on file Legal Sex Female 3:22 AM SAUSAGE MEAT TRIMMER Gender Identity Not on file Sexual Orientation Not on file documented as of this encounter Discharge Disposition Disposition Code Departure Means Destination Discharge to home or self care documented in this encounter Plan of Treatment Not on file documented as of this encounter Visit Diagnoses Not on filedocumented in this encounter Care Teams Cotton Tier Relationship Specialty Start Date End Date Gadiel Zavala MD [address] [address] PCP - General 06/13/16 documented as of this encounter
--- OUTSIDE RECORDS SUMMARY | 2024-04-17 17:19 | XMS_ITS | Encounter Summary ---
Author Organization [facility] Healthcare Address [address] [place] [address] Care Team Providers Care Machine Set Up Name Role Phone Gadiel Zavala MD Primary Care Provider +1 -[phone] Lyudmila Knox RN Unavailable Unavailable Jennifer Escalona RN Unavailable Agustina vailable Reason for Visit * Reason Comments Back Pain Encounter Details Date Type Department Care Team (Late st Contact Info) Description 08/02/2017 11:15 AM CDT Office Visit [facility] [address] [place] [address] [place] [address] [facility] [address] [place] [phone] Radiculopathy, lumbosacral region (Primary Dx); Spondylosis of [...] on file Legal Sex Female 3:22 AM AUTOMATED WEAVER Gender Identity Not on file Sexual Orientation [...] fact that she may be moving to [place] and we may need to set up [...] there are potential variances in recording and structures technician. documented in this encounter Plan of [...] 07/26/2017 added in this encounter Care Teams Machine Set Up Relationship Specialty Start Date End Date Gadiel Zavala MD [address] [place] [address] PCP - General 06/13/16 Lyudmila Knox, RN Registered Nurse 04/14/17 Jennifer Escalona, RN Registered Nurse 05/10/17 documented as of this encounter
--- OUTSIDE RECORDS SUMMARY | 2024-04-17 17:19 | XMS_ITS | Encounter Summary ---
Author Organization [facility] Healthcare Address [address] [place] [address] Care Team Providers Care Freight Car Loader Name Role Phone Gadiel Zavala MD Primary Care Provider +1 -[phone] Lyudmila Knox RN Unavailable Unavailable Jennifer Escalona RN Unavailable Agustina vailable Encounter Details Date Type Department Care Team (Late st Contact Info) Description 10/17/2017 [facility] Only [facility] [id number] [place] [address] Whitney Gaona RN Social History Tobacco Use Types Packs/Day Years Used Date Smoking Tobacco: Former Cigarettes Q uit: 04/14/1987 Smokeless Tobacco: Never Alcohol Use Standard Drinks/Week Comments Yes 0 (1 standard drink = 0.6 oz pur e alcohol) social Comments No Sex and Gender Information Value Date Recorded Sex Assigned at Not on file Legal Sex Female 3:22 AM COMPLEX CARE NURSE Gender Identity Not on file Sexual [...] on filedocumented in this encounter Care Teams Freight Car Loader Relationship Specialty Start Date End Date Gadiel Zavala MD [address] [address] PCP - General 06/13/16 Lyudmila Knox, RN Registered Nurse 04/14/17 Jennifer Escalona, RN Registered Nurse 05/10/17 documented as of this encounter
--- OUTSIDE RECORDS SUMMARY | 2024-04-17 17:19 | XMS_ITS | Encounter Summary ---
Author Organization [facility] Healthcare Address [address] [place] [address] Care Team Providers Care Maintenance Mgr Name Role Phone Gadiel Zavala MD Primary Care Provider +1 -[phone] Encounter Details Date Type Department Care Team (Late st Contact Info) Description 01/10/2017 1:30 PM CDT - 01/10/2017 11:59 PM CDT Hospital Encounter [place] [address] [facility] [address] [place] [address] Discharge Disposition: Discharge to home or self care Social History Tobacco Use Types Packs/Day Years Used Date Smoking Tobacco: Never Assessed Comments Unknown Sex and Gender Information Value Date Recorded Sex Assigned at Not on file Legal Sex Female 3:22 AM PICK AND SHOVEL WORKER Gender Identity Not on file Sexual Orientation Not on file documented as of this encounter Discharge Disposition Disposition Code Departure Means Destination Discharge to home or self care documented in this encounter Plan of Treatment Not on file documented as of this encounter Visit Diagnoses Not on filedocumented in this encounter Care Teams Maintenance Mgr Relationship Specialty Start Date End Date Gadiel Zavala MD [address] [address] PCP - General 06/13/16 documented as of this encounter
--- OUTSIDE RECORDS SUMMARY | 2024-04-17 17:19 | XMS_ITS | Encounter Summary ---
Author Organization [facility] Healthcare Address [address] [place] [address] Care Team Providers Care Aluminum Can Collector Name Role Phone Gadiel Zavala MD Primary Care Provider +1 [phone] Lyudmila Knox RN Unavailable Unavailable Jennifer Escalona RN Unavailable Agustina vailable Encounter Details Date Type Department Care Team (Latest Contact Info) Description 05/10/2017 11:55 AM LIQUOR MERCHANT - 05/10/2017 11:59 PM LIQUOR MERCHANT Hospital Encounter [facility] Diagnostic Imaging [address] [place] [address] Back pain Discharge Disposition: Discharge to home or self care Social History Tobacco Use Types Packs/Day Years Used Date Smoking Tobacco: Former Cigarettes Q uit: 04/14/1987 Smokeless Tobacco: Never Comments Unknown Sex and Gender Information Value Date Recorded Sex Assigned at Not on file Legal Sex Female 3:22 AM LIQUOR MERCHANT Gender Identity Not on file Sexual Orientation [...] Read Routine (OP Routine) 05/10/2017 11:56 AM LIQUOR MERCHANT Back pain FL FLUOROSCOPY < 1 HOUR Schedule Routine, Read Routine (OP Routine) 05/10/2017 11:56 AM LIQUOR MERCHANT Back pain documented in this encounter Results * FL Fluoroscopy < 1 Hour (05/10/2017 11:56 AM LIQUOR MERCHANT) Narrative RAD_PACS_CH - 07/25/2017 1:40 PM CDT The images from this study are not interpreted by Radiology. ??Please refer to the physician's procedure / OR operative note. Brice Eisenberg MD IMG FLUOROSCOPY PROCE DURES Final Result Performing Organization Address [facility] de Phone Number RAD_PACS_CH * XR Spine Thoracic 1 View (05/10/2017 11:56 AM LIQUOR MERCHANT) Narrative RAD_PACS_CH - 05/19/2017 1:34 PM LIQUOR MERCHANT The images from this study are not interpreted by Radiology. ??Please refer to the physician's procedure / OR operative note. Brice Eisenberg MD IMG XR PROCEDURES Fin al Result Performing Organization Address [facility] Phone Number RAD_PACS_CH documented in this encounter Visit Diagnoses Diagnosis Back pain Unspecified backache documented in this encounter Care Teams Aluminum Can Collector Relationship Specialty Start Date End Date Gadiel Zavala MD [address] [address] PCP - General 06/13/16 Lyudmila Knox, RN Registered Nurse 04/14/17 Jennifer Escalona, LOGAN Registered Nurse 05/10/17 documented as of this encounter
--- OUTSIDE RECORDS SUMMARY | 2024-04-17 17:19 | XMS_ITS | Encounter Summary ---
Author Organization [facility] Healthcare Address [address] [place] [address] Care Team Providers Care Ball Mill Operator Name Role Phone aGdiel Zavala MD Primary Care Provider +1 -[phone] Lyudmila Knox RN Unavailable Unavailable Jennifer Escalona RN Unavailable Agustina vailable Encounter Details Date Type Department Care Team (Late st Contact Info) Description 06/28/2017 10:15 AM TOOL SHARPENER - 06/28/2017 10:30 AM [facility] Surgery [facility] [address] [place] [address] [place]ice Eisen[place] [id number] [place] [address] Neurostimulator Analysis Spinal Cord [address] Surgery Details Date/Time Status Location OR Service Patient Class Case Class Case Type Trauma Case? 06/28/2017 10:15 AM Posted Pain Management Procedure Center RM 1 Pain Management Outpatient Elective Panel 1 Procedure LRB Anes Op Region Wound Class Comments Neurostimulator Analysis Spinal Cord [address] N/A Surgeon Surgeon Role Service Panel Brice [...] on file Legal Sex Female 3:22 AM TOOL SHARPENER Gender Identity Not on file Sexual Orientation Not on file documented as of this encounter Last Filed Vital Signs Vital Sign Reading Time Taken Comments Blood Pressure 164/110 06/28/2017 10:16 AM TOOL SHARPENER patient will fu with pcp Pulse 87 06/28/2017 10:16 AM TOOL SHARPENER Temperature 36.8 ??C (98.2 ??F) 06/28/2017 1 0:16 AM TOOL SHARPENER Respiratory Rate 16 06/28/2017 10:1 6 AM TOOL SHARPENER Oxygen Saturation 100% 06/28/2017 10: 16 AM TOOL SHARPENER Inhaled Oxygen Concentration - - Weight - [...] for : Procedure(s): Neurostimulator Analysis Spinal Cord [address] SHARPENER Source Note - Brice Eisenberg MD - 06/22/2017 11:10 AM TOOL SHARPENER Patient Name: Kaitlin Bond : 1950 Today's [...] ABD- WNL EXTR- WNL Post-op Dx: Same SHARPENER documented in this encounter Miscellaneous Notes * Perioperative Nursing Note - Shruthi Ramirez RN - 06/28/2017 10:23 AM CST Dressings were removed, incisions look great, no warmth or redness, glue is intact, pt tolerated well. SHARPENER * Op Note - Brice Eisenberg MD - 06/28/2017 10:15 AM CST Procedure performed: Complex reprogramming of spinal cord stimulator pulse generator Indication for procedure: Patient is returning following spinal cord stimulator implant with diagnoses of lumbago and lumbar post-laminectomy syndrome. Description procedure: With the help of the [place] route sales representative, complex reprogramming of Patspinal cord stimulator pulse generator was performed. Burst stimulation was activated. Note that her incision sites look excellent and there is no evidence of infection. We will plan to see her back in 1 month earlier if needed. She was cautioned against any excessive bending lifting or twisting for the next 5 weeks. SHARPENER documented in this encounter Plan of Treatment [...] Associated Diagnosis Comments NEUROSTIMULATOR ANALYSIS SPINAL CORD [address] 06/28/2017 4:19 PM TOOL SHARPENER post op stimm documented in this encounter Visit Diagnoses Not on filedocumented in this encounter Care Teams Ball Mill Operator Relationship Specialty Start Date End Date Gadiel Zavala MD [address] [address] PCP - General 06/13/16 Lyudmila Knox, RN Registered Nurse 04/14/17 Jennifer Escalona, LOGAN Registered Nurse 05/10/17 documented as of this encounter
--- OUTSIDE RECORDS SUMMARY | 2024-04-17 17:19 | XMS_ITS | Encounter Summary ---
Author Organization [facility] Address [address] [place] [address] Care Team Providers Care Parcel Post Truck Driver Name Role Phone Gadiel Zavala MD Primary Care Provider [phone] [phone] Lyudmila Knox RN Unavailable Unavailable Jennifer Escalona RN Unavailable Agustina vailable Reason for Referral * Cardiology (Routine) - Closed Specialty Diagnoses / Procedures Referred By Contmarianela t Referred To Contact Diagnoses Paroxysmal atrial fibrillation (CMS/HCC) (HCC) Procedures MCT Mobile Cardiac Telemetry Event Monitor Bobo Perez MD Phone: tel: fax: [facility] Referral ID Status Reason Start Date Expiration Date Visits Re quested Visits Authorized [id number] Closed 03/29/2022 04/28/2023 1 1 M SPECIALIST Reason for Visit * Reason Comments Follow-up 4 mo f/u Atrial Fibrillation Hypertension Encounter Details Date Type Department Care Team (Latest Contact Info) Description 03/29/2022 2:00 PM CLAIM SPECIALIST Office Visit [facility] Cardiology [address] [place] [address] Bobo Perez MD [address] [place] [place] [address] [address] [place] [address] Paroxysmal atrial fibrillation (CMS/HCC) (HCC) (Primary Dx); [...] on file Legal Sex Female 3:22 AM CLAIM SPECIALIST Gender Identity Not on file Sexual Orientation Not on file documented as of this encounter Last Filed Vital Signs Vital Sign Reading Time Taken Comments Blood Pressure 118/70 03/29/2022 2:08 PM CLAIM SPECIALIST Pulse 66 03/29/2022 2:08 PM CLAIM SPECIALIST Temperature - - Respiratory Rate - - Oxygen Saturation 99% 03/29/2022 2:08 PM CLAIM SPECIALIST Inhaled Oxygen Concentration - - Weight 54.3 kg (119 lb 11.2 oz) 03/29/2022 2:08 PM CLAIM SPECIALIST Height 160 cm (5' 3 ) 03/29/2022 2:08 PM CLAIM SPECIALIST Body Mass Index 21.2 03/29/2022 2:08 PM CLAIM SPECIALIST documented in this encounter Ordered Prescriptions Prescription Sig Dispense Quantity Refills Last Filled Start Date End Date aspirin (Adult Low Dose Aspirin) 81 mg enteric coated tablet Take 1 tablet (81 mg total) by mouth daily 03/29/2022 documented in this encounter Progress Notes * Bobo Perez MD - 03/29/2022 2:00 PM CST [...] episode of AFib with RVR. Thirty day microbiology quality control technician to assess for recurrent AFib further risk [...] This is a patient who presented to [facility] for laparoscopic right hemicolectomy on October [...] her hospitalization. 11/17/2021 Hospital follow-up with [facility] - Kaitlinphilly Bond comes to the office [...] EKG, electronic medical record, and bloodwork/lipids. Reviewed [facility] records, 12 lead EKG 10/16/2021 AFib RVR [address] abnormality consider ischemia Harleen Perez MD, [facility] This note is dictated and transcribed using Tap[employer] Direct Software. Extrusion Technician variancesmay occur. Despite proofreading, typographical errors may occur. M SPECIALIST documented in this encounter Plan of [...] POCT LIPID PANEL Routine 03/29/2022 2:13 PM CLAIM SPECIALIST Lipid screening documented in this encounter Results * MCT Mobile Cardiac Telemetry Event Monitor (03/29/2022 4:18 PM CLAIM SPECIALIST) Anatomical Region Laterality Modality Other Narrative 05/04/2022 3:16 PM CLAIM SPECIALIST AMBULATORY WATER RESOURCES PROJECT MANAGER REPORT Patient Name: Kaitlin Bond Date of [...] was used to complete this document, therefore, measurement specialist variances may occur. Emilio Leggett MD, [facility] 05/04/22 Procedure Note Emilio Leggett MD - 05/04/2022 AMBULATORY WATER RESOURCES PROJECT MANAGER REPORT Patient Name: Kaitlin Bond Date of [...] software was used to complete this document, therefore,measurement specialist variances may occur. Emilio Leggett MD, [facility] 05/04/22 Bobo Perez MD CV CARDIAC SERVICES PROC EDURES Final Result * POCT lipid panel (03/29/2022 2:13 PM CLAIM SPECIALIST) Cholesterol, POC 240 mg/dL Comment:GLU = 120 HDL, POC 66 mg/dL Triglycerides, POC 95 mg/dL LDL Cholesterol POC 155 mg/dL Chol/HDL Ratio, POC 2.3 Non-HDL Cholesterol, POC 174 mg/dL Cholesterol Total, POC 240 mg/dL Capillary blood 03/29/2022 2 :13 PM CLAIM SPECIALIST Bobo Perez MD POINT OF CARE TEST [...] 4 added in this encounter Care Teams Parcel Post Truck Driver Relationship Specialty Start Date End Date Gadiel Zavala MD [address] [address] PCP - General 06/13/16 Lyudmila Knox, RN Registered Nurse 04/14/17 Jennifer Escalona, RN Registered Nurse 05/10/17 documented as of this encounter
--- OUTSIDE RECORDS SUMMARY | 2024-04-17 17:19 | XMS_ITS | Encounter Summary ---
Author Organization [facility] Address [address] [place] [address] Care Team Providers Care Lift Truck Operator Name Role Phone Gadiel Zavala MD Primary Care Provider [phone] [phone] Lyudmial Knox RN Unavailable Unavailable Jennifer Escalona RN Unavailable Agustina vailable Reason for Visit * Cardiology (Routine) - Closed Specialty Diagnoses / Procedures Referred By Contac t Referred To Contact Diagnoses Paroxysmal atrial fibrillation (CMS/HCC) (HCC) Procedures MCT Mobile Cardiac Telemetry Event Monitor Bobo Perez MD Phone: tel: fax: [facility] Referral ID Status Reason Start Date Expiration Date Visits Re quested Visits Authorized [id number] Closed 03/29/2022 04/28/2023 1 1 Encounter Details Date Type Department Care Team (Latest Contact Info) Description 03/29/2022 2:15 PM MANAGER PROCUREMENT Ancillary Procedure [facility] Medical [facility] Cardiology [address] [place] [address] Paroxysmal atrial fibrillation (CMS/HCC) (HCC) Social History Tobacco Use Types Packs/Day Years Used Date Smoking Tobacco: Former Cigarettes Q uit: 04/14/1987 Smokeless Tobacco: Never Alcohol Use Standard Drinks/Week Comments Yes 0 (1 standard drink = 0.6 oz pur e alcohol) social Comments No Sex and Gender Information Value Date Recorded Sex Assigned at Not on file Legal Sex Female 3:22 AM MANAGER PROCUREMENT Gender Identity Not on file Sexual Orientation [...] TELEMETRY EVENT MONITOR Routine 03/29/2022 4:18 PM MANAGER PROCUREMENT Paroxysmal atrial fibrillation (CMS/HCC) (HCC) documented in this encounter Results * MCT Mobile Cardiac Telemetry Event Monitor (03/29/2022 4:18 PM MANAGER PROCUREMENT) Anatomical Region Laterality Modality Other Narrative 05/04/2022 3:16 PM MANAGER PROCUREMENT AMBULATORY SOFTWARE RECRUITER REPORT Patient Name: Kaitlin Bond Date of [...] was used to complete this document, therefore, sheet cutter variances may occur. Emilio Leggett MD, [facility] 05/04/22 Procedure Note Emilio Leggett MD - 05/04/2022 AMBULATORY SOFTWARE RECRUITER REPORT Patient Name: Kaitlin Bond Date of [...] software was used to complete this document, therefore,sheet cutter variances may occur. Emilio Leggett MD, [facility] 05/04/22 Bobo Perez MD CV CARDIAC SERVICES PROC EDURES Final Result documented in this encounter Visit Diagnoses Diagnosis Paroxysmal atrial fibrillation (CMS/HCC) (HCC) Atrial fibrillation documented in this encounter Care Teams Lift Truck Operator Relationship Specialty Start Date End Date Gadiel Zavala MD [address] [address] PCP - General 06/13/16 Lyudmila Knox, RN Registered Nurse 04/14/17 Jennifer Escalona, LOGAN Registered Nurse 05/10/17 documented as of this encounter
--- OUTSIDE RECORDS SUMMARY | 2024-04-17 17:19 | XMS_ITS | Encounter Summary ---
Author Organization [facility] Healthcare Address [address] [place] [address] Care Team Providers Care Rn Oncology Name Role Phone Gadiel Zavala MD Primary Care Provider [phone] [phone] Lyudmila Knox RN Unavailable Unavailable Jennifer Escalona RN Unavailable Agustina vailable Encounter Details Date Type Department Care Team (Latest Contact Info) Description 08/02/2017 12:06 PM CDT - 08/02/2017 11:59 PM CDT Hospital Encounter [facility] Diagnostic Imaging [address] [place] [address] Discharge Disposition: Discharge to home or self [...] on file Legal Sex Female 3:22 AM COLOR TELEVISION CONSOLE MONITOR Gender Identity Not on file Sexual Orientation [...] PROCEDURES Fin al Result Performing Organization Address City/State/[facility] Co de Phone Number RAD_PACS_CH documented in this encounter Visit Diagnoses Not on filedocumented in this encounter Care Teams Rn Oncology Relationship Specialty Start Date End Date Gadiel Zavala MD [address] [place] [address] PCP - General 06/13/16 Lyudmila Knox, RN Registered Nurse 04/14/17 Jennifer Escalona, RN Registered Nurse 05/10/17 documented as of this encounter
--- OUTSIDE RECORDS SUMMARY | 2024-04-17 17:19 | XMS_ITS | Encounter Summary ---
Author Organization [facility] Healthcare Address [address] [place] [address] Care Team Providers Care Sink Cutter Name Role Phone Gadiel Zavala MD Primary Care Provider +1 -[phone] Lyudmila Knox RN Unavailable Unavailable Jennifer Escalona RN Unavailable Agustina vailable Encounter Details Date Type Department Care Team (Late st Contact Info) Description 06/22/2017 11:48 AM FIRST BREAKER FEEDER Anesthesia Event [facility] Operating Room [address] [place] [address] Lázaro [place] [address] [address] Mandy Mayer Anesthesia Record Procedure Summary Procedure [...] on file Legal Sex Female 3:22 AM FIRST BREAKER FEEDER Gender Identity Not on file Sexual Orientation [...] acceptable Pt is: normothermic Nausea/Vomiting status: none T BREAKER FEEDER * Anesthesia Postprocedure Evaluation - Mandy Mayer CRNA - 06/22/2017 1:29 PM CST Patient: Kaitlin Bond Procedure Summary Date: 06/22/17 Room / Location: OPERATING ROOM 15 / OPERATING ROOM Anesthesia Start: 1148 Anesthesia Stop: 1327 Procedure: Insertion Spinal Cord Stimulator (N/A Back) Diagnosis: (BACK PAIN) Provider: Brice Eisenberg MD Responsible Provider: Lázrao Field MD Anesthesia Type: MAC ASA Status: [...] acceptable Pt is: normothermic Nausea/Vomiting status: none T BREAKER FEEDER * Anesthesia Preprocedure Evaluation - Lázaro Field [...] is Outpatient. Informed Consent: Discussed plan with CORPORATE TRAVEL AGENT. Anesthesia plan and risks discussed with patient and spouse. Consent and Attending signature: I and/or my designee have discussed the anesthesia plan, benefits, possible alternatives, parental presence at time of induction (if indicated), and clinically relevant risks that may include dental injury, unintentional awareness, and/or other complications. The patient and/or parent/legal guardian understand, and agree to proceed. All questions answered. T BREAKER FEEDER documented in this encounter Plan of Treatment [...] SurgicalIndications:Prophylaxis , Surgical Given 06/22/2017 12:00 PM FIRST BREAKER FEEDER 1,000 mg dexamethasone (DECADRON) injection As needed, Starting on Juany 06/22/17 at 1150, Anesthesia Intra-op Given 06/22/2017 11:50 AM FIRST BREAKER FEEDER 4 mg diphenhydrAMINE (BENADRYL) injection As needed, Starting on Juany 06/22/17 at 1255, Anesthesia Intra-op Given 06/22/2017 12:55 PM FIRST BREAKER FEEDER 12.5 mg fentaNYL (SUBLIMAZE) preservative free injection intravenous, As needed, Starting on Juany 06/22/17 at 1235, Anesthesia Intra-op Given 06/22/2017 12:45 PM FIRST BREAKER FEEDER 25 mcg Given 06/22/2017 12:35 PM FIRST BREAKER FEEDER 25 mcg glycopyrrolate (ROBINUL) injection As needed, Starting on Juany 06/22/17 at 1148, Anesthesia Intra-op Given 06/22/2017 11:48 AM FIRST BREAKER FEEDER 0.1 mg ketamine (KETALAR) injection intravenous, As needed, Starting on Juany 06/22/17 at 1235, Anesthesia Intra-op Given 06/22/2017 12:35 PM FIRST BREAKER FEEDER 25 mg ketorolac (TORADOL) injection As needed, Starting on Juany 06/22/17 at 1256, Anesthesia Intra-op Given 06/22/2017 12:56 PM FIRST BREAKER FEEDER 15 mg midazolam (VERSED) preservative free injection intravenous, As needed, Starting on Juany 06/22/17 at 1149, Anesthesia Intra-op Given 06/22/2017 12:10 PM FIRST BREAKER FEEDER 1 mg Given 06/22/2017 11:49 AM FIRST BREAKER FEEDER 1 mg ondansetron (ZOFRAN) injection As needed, nausea, vomiting, Starting on Juany 06/22/17 at 1149, Anesthesia Intra-op Given 06/22/2017 11:49 AM FIRST BREAKER FEEDER 4 mg propofol (DIPRIVAN) IV As needed, Starting on Juany 06/22/17 at 1213, Anesthesia Intra-op Given 06/22/2017 12:13 PM FIRST BREAKER FEEDER 20 mg propofol (DIPRIVAN) IV Continuous PRN, Starting on Juany 06/22/17 at 1230, Anesthesia Intra-op Rate/Dose Change 06/22/2017 12:55 PM FIRST BREAKER FEEDER 75 mcg/kg/min 25.1 mL/hr Rate/Dose Change 06/22/2017 12:49 PM FIRST BREAKER FEEDER 100 mcg/kg/min 33 .5 mL/hr Rate/Dose Change 06/22/2017 12:35 PM FIRST BREAKER FEEDER 75 mcg/kg/min 25. 1 mL/hr scopolamine patch 72 hour Administer over 72 Hours, As needed, Starting on Juany 06/22/17 at 1147, Anesthesia Intra-op Given 06/22/2017 11:47 AM FIRST BREAKER FEEDER 1 patch documented in this encounter Care Teams Sink Cutter Relationship Specialty Start Date End Date Gadiel Zavala MD [address] [address] PCP - General 06/13/16 Lyudmila Knox, RN Registered Nurse 04/14/17 Jennifer Escalona, LOGAN Registered Nurse 05/10/17 documented as of this encounter
--- OUTSIDE RECORDS SUMMARY | 2024-04-17 17:19 | XMS_ITS | Encounter Summary ---
Author Organization [facility] Healthcare Address [address] [place] [address] Care Team Providers Care Urgent Care Name Role Phone Gadiel Zavala MD Primary Care Provider +1 [phone] Lyudmila Knox RN Unavailable Unavailable Jennifer Escalona RN Unavailable Agustina vailable Encounter Details Date Type Department Care Team (Late st Contact Info) Description 08/07/2017 Telephone [facility] Pain Management Center [address] [place] [address] [place] [address] [facility] [address] [place] [address] Social History Tobacco Use Types Packs/Day Years Used Date Smoking Tobacco: Former Cigarettes Q uit: 04/14/1987 Smokeless Tobacco: Never Alcohol Use Standard Drinks/Week Comments Yes 0 (1 standard drink = 0.6 oz pur e alcohol) social Comments No Sex and Gender Information Value Date Recorded Sex Assigned at Not on file Legal Sex Female 3:22 AM AMMONIA BOX TENDER Gender Identity Not on file Sexual [...] X-ray results. She had them done at [facility]. documented in this encounter Plan of Treatment [...] on filedocumented in this encounter Care Teams Urgent Care Relationship Specialty Start Date End Date Gadiel Zavala MD [address] [address] PCP - General 06/13/16 Lyudmila Knox, RN Registered Nurse 04/14/17 Jennifer Escalona, LOGAN Registered Nurse 05/10/17 documented as of this encounter
--- OUTSIDE RECORDS SUMMARY | 2024-04-17 17:19 | XMS_ITS | Encounter Summary ---
Author Organization [facility] Healthcare Address [address] [place] [address] Care Team Providers Care Coagulating Bath Operator Name Role Phone Gadiel Zavala MD Primary Care Provider [phone] -[phone] Lyudmila Knox RN Unavailable Unavailable Jennifer Escalona RN Unavailable Agustina vailable Encounter Details Date Type Department Care Team (Late st Contact Info) Description 09/26/2017 Telephone [facility] [id number] [place] [address] Janine Vail RN Social History Tobacco Use Types Packs/Day Years Used Date Smoking Tobacco: Former Cigarettes Q uit: 04/14/1987 Smokeless Tobacco: Never Alcohol Use Standard Drinks/Week Comments Yes 0 (1 standard drink = 0.6 oz pur e alcohol) social Comments No Sex and Gender Information Value Date Recorded Sex Assigned at Not on file Legal Sex Female 3:22 AM SEPHORA OPERATIONS CONSULTANT Gender Identity Not on file Sexual Orientation Not on file documented as of this encounter Miscellaneous Notes * Telephone Encounter - Janine Vail RN - 09/26/2017 8:35 AM CDT [...] on filedocumented in this encounter Care Teams Coagulating Bath Operator Relationship Specialty Start Date End Date Gadiel Zavala MD [address] [address] PCP - General 06/13/16 Lyudmila Knox, RN Registered Nurse 04/14/17 Jennifer Escalona, LOGAN Registered Nurse 05/10/17 documented as of this encounter
--- OUTSIDE RECORDS SUMMARY | 2024-04-17 17:19 | XMS_ITS | Encounter Summary ---
Author Organization [facility] Healthcare Address [address] [place] [address] Care Team Providers Care Sales Vendor Name Role Phone Gadiel Zavala MD Primary Care Provider [phone] [phone] Lyudmila Knox RN Unavailable Unavailable Jennifer Escalona RN Unavailable Agustina vailable Reason for Visit * Reason Comments Follow-up Back Pain Extremity Pain Knee Pain Encounter Details Date Type Department Care Team (Late st Contact Info) Description 08/27/2018 12:26 PM CDT - 08/27/2018 11:59 PM CDT Hospital Encounter [facility] [address] [place] [id number] [place] [address] [facility] [address] [place] [id number] Cervical spinal stenosis; Chronic midline low back [...] on file Legal Sex Female 3:22 AM TIER LIFT TRUCK OPERATOR Gender Identity Not on [...] take prior to but must have a diesel pile driver operator. As far as her low back I [...] there are potential variances in recording and robotic welder. documented in this encounter Plan of Treatment [...] documented as of this encounter Care Teams Sales Vendor Relationship Specialty Start Date End Date Gadiel Zavala MD [address] [address] PCP - General 06/13/16 Lyudmila Knox, RN Registered Nurse 04/14/17 Jennifer Escalona, LOGAN Registered Nurse 05/10/17 documented as of this encounter
--- OUTSIDE RECORDS SUMMARY | 2024-04-17 17:19 | XMS_ITS | Encounter Summary ---
Author Organization [facility] Healthcare Address [address] [place] [address] Care Team Providers Care Equipment Operator/Laborer/Supervisor Name Role Phone Gadiel Zavala MD Primary Care Provider [phone] [phone] Lyudmila Knox RN Unavailable Unavailable Jennifer Escalona RN Unavailable Agustina vailable Reason for Visit * Reason Comments Follow-up lead pull Encounter Details Date Type Department Care Team (Late st Contact Info) Description 05/10/2017 11:00 AM MILITARY NURSE Office Visit [facility] [address] [place] [address] [place] [address] [facility] [address] [place] [id number] Cervicalgia (Primary Dx); Cervical radiculopathy; Chronic midline [...] on file Legal Sex Female 3:22 AM MILITARY NURSE Gender Identity Not on file Sexual Orientation Not on file documented as of this encounter Last Filed Vital Signs Vital Sign Reading Time Taken Comments Blood Pressure 157/103 05/10/2017 11:38 AM MILITARY NURSE Pulse 80 05/10/2017 11:38 AM MILITARY NURSE Temperature 36.4 ??C (97.6 ??F) 05/10/2017 11:[address] Respiratory Rate 18 05/10/2017 11:38 AM MILITARY NURSE Oxygen Saturation 100% 05/10/2017 11:38 AM MILITARY NURSE Inhaled Oxygen Concentration - - Weight - - Height - - Body Mass Index - - documented in this encounter Patient Instructions * Patient Instructions* Janine Vail RN - 05/10/2017 11:00 AM MILITARY NURSE Pre Procedure information [] Nothing to eat [...] the procedure. Call us with any questions [phone] Things you need to know after your [...] then you may take a sponge bath. TARY NURSE documented in this encounter Ordered Prescriptions Prescription [...] there are potential variances in recording and aircraft shipping checker. TARY NURSE TARY NURSE documented in this encounter Plan of Treatment [...] region documented in this encounter Care Teams Equipment Operator/Laborer/Supervisor Relationship Specialty Start Date End Date Gadiel Zavala MD [address] [address] PCP - General 06/13/16 Lyudmila Knox, RN Registered Nurse 04/14/17 Jennifer Escalona, RN Registered Nurse 05/10/17 documented as of this encounter
--- OUTSIDE RECORDS SUMMARY | 2024-04-17 17:19 | XMS_ITS | Encounter Summary ---
Author Organization [facility] Healthcare Address [address] [place] [address] Care Team Providers Care Aprn Name Role Phone Gadiel Zavala MD Primary Care Provider [phone] Encounter Details Date Type Department Care Team (Late st Contact Info) Description 12/13/2016 2:45 PM CDT - 12/13/2016 11:59 PM CDT Hospital Encounter [place] [address] [facility] [address] [place] [address] Discharge Disposition: Discharge to home or self care Social History Tobacco Use Types Packs/Day Years Used Date Smoking Tobacco: Never Assessed Comments Unknown Sex and Gender Information Value Date Recorded Sex Assigned at Not on file Legal Sex Female 3:22 AM CHLORINATOR OPERATOR Gender Identity Not on file Sexual Orientation Not on file documented as of this encounter Discharge Disposition Disposition Code Departure Means Destination Discharge to home or self care documented in this encounter Plan of Treatment Not on file documented as of this encounter Visit Diagnoses Not on filedocumented in this encounter Care Teams Aprn Relationship Specialty Start Date End Date Gadiel Zavala MD [address] [address] PCP - General 06/13/16 documented as of this encounter
--- OUTSIDE RECORDS SUMMARY | 2024-04-17 17:20 | XMS_ITS | Encounter Summary ---
Author Organization [facility] Facility Care Team Providers Care Machine Tool Electrician Name Role Phone Unavailable Primary Care Provider Unavailabl e Encounter Details Date Type Department Care Team (Late st Contact Info) Description 02/04/2014 1:02 PM CDT - 02/04/2014 11:59 PM CDT Hospital Encounter [facility] Jack Garza MD [address] [facility] [address] [place] [address] Arthrodesis status Social History Tobacco Use Types Packs/Day Years Used Date Smoking Tobacco: Never Assessed Comments Unknown Sex and Gender Information Value Date Recorded Sex Assigned at Not on file 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 Requesting ID: [id number] Attending Fax: ?? Attending ID: ?? [id number] Completed Time: ?? 02/04/2014 1:24 PM Dictated [...] Requesting: JACK GARZA MD Requesting Requesting ID: [id number] Attending Attending ID: [id number] Completed Time: 02/04/2014 1:24 PM Dictated Time: [...]
--- OUTSIDE RECORDS SUMMARY | 2024-04-17 17:20 | XMS_ITS | Encounter Summary ---
Author Organization [facility] Facility Care Team Providers Care Air Commodore Name Role Phone Unavailable Primary Care Provider Unavailabl e Encounter Details Date Type Department Care Team (Latest Contact Info) Description 12/02/2013 5:11 AM CDT - 12/04/2013 4:30 PM CDT Hospital Encounter [facility] Kristopher Greer MD [address] [facility] [address] [place] [address] Spinal stenosis of lumbar region without neurogenic [...] file Legal Sex Female 3:22 AM CURB SETTER Gender Identity Not on file Sexual [...] 12:00 AM CDT Patient: GEORGIANA BOND Account: [id number] Room No: 2415-A : 1950 Proc. Date: [...] Kristopher Greer MD On 04/22/2014 05:21 PM CURB SETTER documented in this encounter Consult Notes * Darwin Drake MD - 12/04/2013 12:00 AM CDT Patient: GEORGIANA BOND Account: [id number] Room No: 2415-A : 1950 Consult Date: 12/04/2013 Attending: KRISTOPHER GREER MD Admit Date: 12/02/2013 Consult.: BETHANY REYES MD Disch. Date: Patient Type: PHYSICAL MEDICINE AND REHABILITATION CONSULT REASON FOR CONSULTATION: Evaluation for acute inpatient rehab following L3 to S1 decompressive laminectomy and fusion. HISTORY OF PRESENT ILLNESS: Ms. Bond is a 63-year-old female admitted to [facility] on 12/02/2013 for an elective L3 to [...] Tubal ligation. ALLERGIES: ADHESIVE TAPE. MEDICATIONS: 1. Kersey 1 tab 3 times a day. 2. [...] 12:00 AM CDT Patient: GEORGIANA BOND Account: [id number] Room No: 2415-A : 1950 Consult Date: [...] 1. Celebrex 20 mg p.o. daily. 2. Kersey 10/325 p.o. 3 times daily. 3. Prozac [...] BURLESON DO BA/tanvir TD: 12/03/2013 14:04 CC: RONLAD ZAVALA M.D. Authenticated and Edited by Juan Pablo Burleson D.O. On 01/02/14 7:39:34 PM documented in this encounter Miscellaneous Notes * Admission Note - ProviderDarwin MD - 12/02/2013 12:00 AM CDT Patient: GEORGIANA BOND Account: [id number] Room No: 2415-A : 1950 Admit Date: [...] capsules. 3. Fluoxetine 20 mg capsules. 4. Kersey 5/325 mg. 5. Flexeril 10 mg tablets. [...] 5/5 strength in the deltoids, biceps, triceps, alumni coordinator, iliopsoas, hamstrings, dorsi and plantar flexors, extensor [...] 12:00 AM CDT Patient: GEORGIANA BOND Account: [id number] Room No: 2415-A : 1950 Proc. Date: [...] and L5 were then removed with the [facility] spine cutter. Laminectomy was carried out using [...] ORDERABLES Jesi l Result Performing Organization Address City/[facility] Co de Phone Number HISTORICAL RESULTS * [...] ORDERABLES Final Resu lt Performing Organization Address [facility] Co de Phone Number HISTORICAL RESULTS * [...] Laterality Modality Spine N/A Radiographic Alexsandra ging 12/02/2013 12:3 7 PM CDT Narrative [...] GREER MD Requesting Fax: ?? Requesting ID: [id number] Attending Fax: ?? Attending ID: ?? [id number] Completed Time: ?? 12/02/2013 12:37 AM Dictated [...] Requesting: KRISTOPHER GREER MD Requesting Requesting ID: [id number] Attending Attending ID: [id number] Completed Time: 12/02/2013 12:37 AM Dictated Time: [...]
--- OUTSIDE RECORDS SUMMARY | 2024-04-17 17:20 | XMS_ITS | Encounter Summary ---
Author Organization [facility] Facility Care Team Providers Care Aircraft Electrician Name Role Phone Unavailable Primary Care Provider Unavailabl e Encounter Details Date Type Department Care Team (Latest Contact Info) Description 12/04/2013 4:49 PM CDT - 12/10/2013 11:51 AM CDT Hospital Encounter 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 Date: Attending: MARCELA GARCIA M.D. Admit Date: 12/04/2013 Dictating: MARCELA GARCIA M.D. Disch. Date: 12/10/2013 Patient Type: IP Primary Diagnosis: Need for rehabilitation. Patient is status post an L3-4, L4-5, and L5-S1 decompressive laminectomy with facetectomies, diskectomy, and posterior lumbar interbody fusion by Dr Garza. Hospital Course: Ms Bond was admitted to [facility] on December 04, 2013, for [...] 40 mg p.o. nightly at bedtime. 5. Reserve 10/325, 1 p.o. t.i.d. 6. Levothroid 50 [...] 12:00 AM CDT Patient: GEORGIANA BOND Account: [id number] Room No: 1451-A : 1950 Consult Date: [...] surgical intervention. The patient was admitted to [facility] and underwent laminectomy and posterior spinal fusion. [...] Hypoalbuminemia. PLAN: She has been admitted to [facility] Acute Inpatient Rehabilitation Unit. The patient will [...] will be seen in consultation by a diet technician registered. A high-protein diet will be [...] 12:00 AM CDT Patient: GEORGIANA BOND Account: [id number] Room No: 1451-A : 1950 Admit Date: [...] Prozac 40 mg p.o. at bedtime. 4. Reserve 5/325, 1 p.o. t.i.d. 5. Levothroid 50 [...] the intensive inpatient rehabilitation program offered at [facility]. MARCELA GARCIA M.D. LA/tanvir TD: 12/06/2013 07:29 CC: MD RONALD CHAVEZ M.D. Authenticated by Marcela Garcia MD On 12/06/2013 08:34:25 AM * Admission Note - Provider, MD Darwin - 12/04/2013 12:00 AM CDT Patient: GEORGIANA BOND Account: [id number] Room No: 1451-A : 1950 Admit Date: [...] b.i.d., Prozac 40 mg p.o. q. h.s., Reserve 5/325 one to two p.o. t.i.d., Levothroid [...] the intensive inpatient rehabilitation program offered at [facility]. MARCELA GARCIA M.D. HENRRY/rubin TD: 12/06/2013 01:07 [...] ORDERABLES Final Re sul Performing Organization Address [facility] de Phone Number HISTORICAL RESULTS * Serum osmolality (12/09/2013 4:59 AM CDT) Osmo 275 275 - 295 mOsm/kg HISTORICAL RESULTS Serum 12/09/2013 4:59 AM CDT us Carson Lundberg MD LAB BLOOD ORDERABLES Final Re sult Performing Organization Address [facility] de Phone Number HISTORICAL RESULTS * (ABNORMAL) [...] ORDERABLES Final Re sult Performing Organization Address [facility] de Phone Number HISTORICAL RESULTS * (ABNORMAL) Serum osmolality (12/07/2013 4:46 AM CDT) Osmo 273(L) 275 - 295 mOsm/kg HISTORICAL RESULTS Serum 12/07/2013 4:46 AM CDT Carson Lundberg MD LAB BLOOD ORDERABLES Final Re sult Performing Organization Address [facility] de Phone Number HISTORICAL RESULTS * (ABNORMAL) [...] ORDERABLES Final Re sult Performing Organization Address [facility] de Phone Number HISTORICAL RESULTS * (ABNORMAL) Serum 25-hydroxycholecalciferol (vitamin D) (12/06/2013 5:32 AM CDT) 25-OH Vit D 19(L) 30 - 100 ng/ml HISTORICAL RESULTS Serum 12/06/2013 5:32 AM CDT Carson Lundberg MD LAB BLOOD ORDERABLES Final Re sult Performing Organization Address [facility] de Phone Number HISTORICAL RESULTS * (ABNORMAL) [...] ORDERABLES Final Re sult Performing Organization Address [facility] Phone Number HISTORICAL RESULTS * Plasma phosphorus (12/06/2013 5:32 AM CDT) Phosphorus, pl 4.4 2.5 - 4.5 mg/dl HISTORICAL RESULTS Plasma 12/06/2013 5:32 AM CDT us Carson Lundberg MD LAB BLOOD ORDERABLES Final Re sult Performing Organization Address [facility] Phone Number HISTORICAL RESULTS * Plasma ferritin (12/06/2013 5:32 AM CDT) Ferritin 96.0 11.0 - 307.0 ng/ml HISTORICAL RESULTS Plasma 12/06/2013 5:32 AM CDT us Carson Lundberg MD LAB BLOOD ORDERABLES Final Re sult Performing Organization Address [facility] Phone Number HISTORICAL RESULTS * (ABNORMAL) Plasma cyanocobalamin (vitamin B12) (12/06/2013 5:32 AM CDT) Cyanocobalamin (Vit B12) 1270(H) 180 - 999 pg/ml HISTORICAL RESULTS Plasma 12/06/2013 5:32 AM CDT us Carson Lundberg MD LAB BLOOD ORDERABLES Final Re sult Performing Organization Address [facility] Phone Number HISTORICAL RESULTS * (ABNORMAL) [...] ORDERABLES Final Re sult Performing Organization Address [facility] de Phone Number HISTORICAL RESULTS * Plasma folic acid (12/06/2013 5:32 AM CDT) Folic acid 12.5 5.9 - 99.0 mcg/L HISTORICAL RESULTS Comment:The World Health Org anization (WHO) Technical Consulation on folate has determined that folate concentrations less than 4 ng/mL are considered deficient. Plasma 12/06/2013 5:32 AM CDT Carson Lundberg MD LAB BLOOD ORDERABLES Final Re sult Performing Organization Address [facility] Phone Number HISTORICAL RESULTS * Plasma magnesium (12/06/2013 5:32 AM CDT) Magnesium 1.9 1.6 - 2.3 mg/dl HISTORICAL RESULTS Plasma 12/06/2013 5:[address] [facility] Carson Lundberg MD LAB BLOOD ORDERABLES Final Re sult Performing Organization Address [facility] de Phone Number HISTORICAL RESULTS * (ABNORMAL) [...] RESULTS - 12/06/2013 2:00 PM CDT ? [facility] Microbiology ?[address] ??[place], [place] ??[address] ? Tele: ?Alejandra Islas M.D. - Coil Finisher - Bradly Berger - Administrative ?Director ?? Patient: GEORGIANA BOND ? Admission #: ??[id number] ?? : 1950 ?Location:[address] ?? Gender: F ?? Admit Date: [...] = = = = = ? Physician: ?[facility] Microbiology Report-[employer]in[employer] ? us Historical [...]
--- OUTSIDE RECORDS SUMMARY | 2024-04-17 17:20 | XMS_ITS | Encounter Summary ---
Author Organization [facility] Facility Care Team Providers Care Workplace Trainer And Assessor Name Role Phone Unavailable Primary Care Provider Unavailabl e Encounter Details Date Type Department Care Team (Late st Contact Info) Description 01/08/2014 12:11 PM CDT - 01/08/2014 11:59 PM CDT Hospital Encounter [facility] Jack Garza MD [address] [facility] [address] [place] [address] Arthrodesis status Social History Tobacco Use Types Packs/Day Years Used Date Smoking Tobacco: Never Assessed Comments Unknown Sex and Gender Information Value Date Recorded Sex Assigned at Not on file 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 Requesting ID: [id number] Attending Fax: ?? Attending ID: ?? [id number] Completed Time: ?? 01/08/2014 12:55 AM Dictated [...] Requesting: JACK GARZA MD Requesting Requesting ID: [id number] Attending Attending ID: [id number] Completed Time: 01/08/2014 12:55 AM Dictated Time: [...]
--- OUTSIDE RECORDS SUMMARY | 2024-04-17 17:20 | XMS_ITS | Encounter Summary ---
Author Organization [facility] Facility Care Team Providers Care Nuclear Chemistry Technician Name Role Phone Unavailable Primary Care Provider Unavailabl e Encounter Details Date Type Department Care Team (Late st Contact Info) Description 03/18/2014 1:00 PM RACE STARTER - 03/18/2014 11:59 PM RACE STARTER Hospital Encounter [facility] Jack Garza MD [address] [facility] [address] [place] [address] Arthrodesis status Social History Tobacco Use Types Packs/Day Years Used Date Smoking Tobacco: Never Assessed Comments Unknown Sex and Gender Information Value Date Recorded Sex Assigned at Not on file Legal Sex Female 3:22 AM RACE STARTER Gender Identity Not on file Sexual Orientation Not on file documented as of this encounter Plan of Treatment Not on file documented as of this encounter Procedures Procedure Name Priority Date/Time Associated Diagnosis Comments XR SPINE LUMBAR 2 OR 3 VIEWS Routine 03/18/2014 1:26 PM RACE STARTER documented in this encounter Results * XR Spine Lumbar 2 Or 3 View (03/18/2014 1:26 PM RACE STARTER) Anatomical Region Laterality Modality Spine N/A Radiographic Alexsandra ging 03/18/2014 1:26 PM RACE STARTER Narrative 03/18/2014 4:56 PM RACE STARTER Lumbar spine, 3 views HISTORY: ??Status post [...] GARZA MD Requesting Fax: ?? Requesting ID: [id number] Attending Fax: ?? Attending ID: ?? [id number] Completed Time: ?? 03/18/2014 1:26 PM Dictated [...] Requesting: JACK GARZA MD Requesting Requesting ID: [id number] Attending Attending ID: [id number] Completed Time: 03/18/2014 1:26 PM Dictated Time: [...]
--- OUTSIDE RECORDS SUMMARY | 2024-04-17 17:20 | XMS_ITS | Encounter Summary ---
Author Organization [facility] Facility Care Team Providers Care Quill Picking Machine Operator Name Role Phone Unavailable Primary Care Provider Unavailabl e Encounter Details Date Type Department Care Team (Latest Contact Info) Description 11/06/2013 10:28 AM CDT - 11/06/2013 11:59 PM CDT Hospital Encounter [facility] Kristopher Garza MD [address] [facility] [address] [place] [address] Degeneration of lumbar or lumbosacral intervertebral disc; Congenital spondylolisthesis Social History Tobacco Use Types Packs/Day Years Used Date Smoking Tobacco: Never Assessed Comments Unknown Sex and Gender Information Value Date Recorded Sex Assigned at Not on file 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
--- OUTSIDE RECORDS SUMMARY | 2024-04-17 17:20 | XMS_ITS | Encounter Summary ---
Author Organization [facility] Healthcare Address [address] [place] [address] Care Team Providers Care Technical Sales Associate Name Role Phone Unavailable Primary Care Provider Unavailabl e Encounter Details Date Type Department Care Team (Latest Contact Info) Description 06/10/2013 8:33 PM AIRCRAFT ENGINEER - 06/10/2013 11:23 PM AIRCRAFT ENGINEER Hospital Encounter [facility] Gavi Saenz MD [address] [place] [address] Open wound of jaw; Fall from other slipping, tripping, or stumbling Social History Tobacco Use Types Packs/Day Years Used Date Smoking Tobacco: Never Assessed Comments Unknown Sex and Gender Information Value Date Recorded Sex Assigned at Not on file Legal Sex Female 3:22 AM AIRCRAFT ENGINEER Gender Identity Not on file Sexual Orientation Not on file documented as of this encounter Last Filed Vital Signs Vital Sign Reading Time Taken Comments Blood Pressure 151/99 06/10/2013 8:42 PM AIRCRAFT ENGINEER Pulse 95 06/10/2013 8:42 PM AIRCRAFT ENGINEER Temperature 36.7 ??C (98.1 ??F) 06/10/2013 8:42 PM CS T Respiratory Rate - - Oxygen Saturation 96% 06/10/2013 8:42 PM AIRCRAFT ENGINEER Inhaled Oxygen Concentration - - Weight 61.2 kg (135 lb) 06/10/2013 8:42 PM AIRCRAFT ENGINEER Height 160 cm (5' 3 ) 06/10/2013 8:42 PM AIRCRAFT ENGINEER Body Mass Index 23.91 06/10/2013 8:42 PM AIRCRAFT ENGINEER documented in this encounter Plan of Treatment Not on file documented as of this encounter Visit Diagnoses Diagnosis Open wound of jaw Open wound of jaw, without mention of complication Fall from other slipping, tripping, or stumbling documented in this encounter
== END 2024-04-13 16:25 | disposition home or self-care (01) ==
PROVIDERS: Emergency Provider Emergency Medicine; PCP Family Medicine
DX: S70.02XA Contusion of left hip, initial encounter (principal); W18.30XA Fall on same level, unspecified, initial encounter; Z79.82 Long term (current) use of aspirin; I48.0 Paroxysmal atrial fibrillation; Z85.038 Personal history of other malignant neoplasm of large intestine; I10 Essential (primary) hypertension; E55.9 Vitamin D deficiency, unspecified; E78.2 Mixed hyperlipidemia; E03.9 Hypothyroidism, unspecified; K21.9 Gastro-esophageal reflux disease without esophagitis; Z87.891 Personal history of nicotine dependence
CPT/HCPCS: 36415; 70450; 71045; 72125; 73502; 74176; 80053; 83735; 85025; 85610; 85730; 96374; 96375; 99284; J2270; J2405

== ENCOUNTER 2024-05-31 03:32 | Emergency (ER) | payer MEDICARE, SELFPAY ==
--- NOTE | ~2024-05-31 | CT_ITS ---
EXAMINATION: CT cervical spine wo con DATE: 05/31/2024 04:02 INDICATION: Fall with head injury TECHNIQUE: Computed tomography (CT) of the cervical spine was performed without intravenous contrast. Automated exposure control and iterative reconstruction technique were employed. The dose-length pro duct was 245.71 mGy-cm. COMPARISON: 04/13/24 FINDINGS: 30 degree cervical levoscoliosis. Mild reversal of the normal cervical lordosis. Severe osteoarthriti s at the atlantoaxial articulation. C3-C4 anterior spinal fusion with anterior plate and screw fixati on. There is additional anterior fusion at C4-C5 and C5-C6. Unfused vertebral body heights are normal . Schmorl's nodes along through the endplates at the upper thoracic spine. No acute fracture. Severe disc height loss at C2-C3 and moderate to severe disc height loss at C6-C7 through T2-T3. There are d egenerative endplate changes at each levels including severe uncovertebral osteoarthritis on the righ t at C2-C3 and bilaterally at C6-C7 and C7-T1. Small posterior endplate osteophytes contributing to m ultilevel mild central canal stenosis from C2-C3 through C6-C7. Severe multilevel bilateral cervical facet osteoarthritis with fusion bilaterally across the C3-C4 facet joints. This contributes to bilat eral multilevel mild to moderate neural foraminal stenosis throughout the cervical and upper thoracic spine. Visualized apices of lungs are clear. Visualized cervical soft tissues are unremarkable. IMPRESSION: 1. No acute osseous abnormality in the cervical or visualized upper thoracic spine. 2. 30 degrees cervical levoscoliosis with severe spondylosis and C3-C6 anterior spinal fusion. Reviewed, dictated and finalized at location B. RVATIONS MANAGER IMPRESSION: 1. No acute osseous abnormality in the cervical or visualized upper thoracic sp ine. 2. 30 degrees cervical levoscoliosis with severe spondylosis and C3-C6 anterior spinal fusion.
--- NOTE | ~2024-05-31 | CT_ITS ---
EXAMINATION: CT brain wo con DATE: 05/31/2024 04:01 INDICATION: Status post fall. Head injury. TECHNIQUE: Computed tomography (CT) of the head was performed without intravenous contrast. The dose- length product was 681.00 mGy-cm. Automated exposure control and iterative reconstruction technique w ere employed. COMPARISON: CT dated 04/13/2024 FINDINGS: Generalized atrophy. Left frontal scalp hematoma. There are scattered mild periventricular and subcortical white matter changes, most likely related to small vessel ischemic disease (microangi opathy). No ventriculomegaly or midline shift. There is intracranial atherosclerosis. Paranasal sinus es and mastoids are pneumatized. No acute intracranial hemorrhage, infarction, mass or mass effect. IMPRESSION: 1. No acute intracranial abnormality. Reviewed, dictated and finalized at location A. SANDER
--- NOTE | ~2024-05-31 | XR_ITS ---
XR elbow LT min 3V 05/31/2024 03:54 INDICATION: Left elbow pain PROCEDURE: 4 views left elbow COMPARISON: No prior studies for comparison. FINDINGS: Fracture, dislocation or subluxation is not identified. No significant joint effusion. The soft tissues appear within normal limits. No foreign bodies are identified. IMPRESSION: 1: NO ACUTE BONE OR JOINT ABNORMALITY IDENTIFIED. Reviewed, dictated and finalized at location A. RTISING PROJECT MANAGER
--- OUTSIDE RECORDS SUMMARY | 2024-05-31 03:34 | XMS_ITS | Referral Summary ---
Author Organization [facility] Address [address] [place] [address] Care Team Providers Care Prop Worker Name Role Phone Gadiel Zavala MD Primary Care Provider [phone] Lyudmila Knox RN Unavailable Unavailable Jennifer Escalona RN Unavailable Agustina vailable Encounters Date Type Department Care Team Description 05/27/2024 9:15 AM CORNER CUTTER MACHINE OPERATOR Ancillary Procedure [facility] Cardiology [address] [place] [phone] PAF (paroxysmal atrial fibrillation) (CMS/HCC) (HCC) 05/02/2024 Orders Only [facility] Cardiology [address] [place] [phone] Emilio Leggett MD Paroxysmal atrial fibrillation (CMS/HCC) ([facility]) (Primary Dx); Status post placement of implantable loop recorder; Syncope, unspecified syncope type 04/15/2024 9:15 AM CORNER CUTTER MACHINE OPERATOR Ancillary Procedure [facility] Cardiology [address] [place] [phone] Status post placement of implantable loop recorder (Primary Dx); PAF (paroxysmal atrial fibrillation) (CMS/HCC) (HCC); Syncope and collapse 03/04/2024 9:00 AM CORNER CUTTER MACHINE OPERATOR Ancillary Procedure [facility] Cardiology [address] [place] [phone] Status post placement of implantable loop recorder (Primary Dx); PAF (paroxysmal atrial fibrillation) (CMS/HCC) (HCC); Syncope and collapse from Last 3 Months Allergies Active Allergy [...] tablet (20 mg total) by mouth daily 7 Active levothyroxine (SYNTHROID, LEVOTHROID) 50 mcg tablet Take 1 tablet (50 mcg total) by mouth daily 7 Active eszopiclone (LUNESTA) tabletIndication s:Insomnia Take 1 tablet (3 mg total) by mouth nightly 1 7 Active omeprazole (PriLOSEC) 40 mg capsule Take 1 capsule (40 mg total) by mouth daily Two tablets daily Active metoprolol XL (TOPROL-XL) 25 mg extended release tablet 8 Active metoprolol XL (TOPROL-XL) 100 mg 24 hr tablet Take 1 tablet (100 mg total) by mouth daily TAKE IN COMBINATION WITH 25 MG TABLET Active aspirin (Adult Low Dose Aspirin) 81 mg enteric coated tablet Take 1 tablet (81 mg total) by mouth daily 2 Active vitamin E 400 unit capsule Take 1 capsule (400 Units total) by mouth Active acetaminophen (TYLENOL) 325 mg tablet Take 2 tablets (650 mg total) by mouth every 4 (four) hours as needed 7 Active ferrous sulfate 325 mg (65 mg [...] a day Active losartan (COZAAR) 25 mg tabletIndication s:Essential hypertension Take 1 tablet by mouth once daily 90 tablet Active Active Problems Problem Noted Date Diagnosed Date Presence of Amulet left atrial appendage closure device 11/16/2023 Surgical complication involv ing both eyes, unspecified complication 10/24/2023 Visit for wound check 08/15/2022 Status post placement of implantable loop record er 08/09/2022 Overview (11/24/2023): ez[employer]itronic LNQ22 Loop Recorder. Dx; Syncope, Afib. DOI 08/08/2022-[facility]. Amulet placed 11/16/23 Falls frequently [...] = 0.6 oz pur e alcohol) social g-[employer] Utilities Answer Date Recorded In the past 12 months has [employer], gas, oil, or water [employer] threatened to shut off services in your [...] often do you attend chur ch or mosque services? Never 11/17/2023 Do you belong to any clubs o r organizations such as jew groups, unions, fraternal or athletic groups, or [...] were you homeless or living in a long term (including now)? No 11/17/2023 Personal Safety Answer Date Recorded Have you ever been in or are you currently in a harmful physical or emotional relationship or is someone making you feel afraid or unsafe? Denies 02/08/2024 Comments No Sex and Gender Information Value Date Recorded Sex Assigned at Not on file Legal Sex Female 3:22 AM CORNER CUTTER MACHINE OPERATOR Gender Identity Not on file [...] Progress Patient-Stated? Author Increase physical activity Exercise Lydumila Shah, RN Note: She is doing arm and leg exercises from Pt. She was in rehab after neck surgery for 2 weeks in March 2017 Medical Devices Implanted Type Area Audio Production Engineer Device Identifier Shelf Expiration Date Model / Serial / Lot Cage Cage Back Other Kit Stimulator Octrode L60 Cm Trial Lead Neurostimulator - [id number] Implanted:Qty: 1 on 05/03/2017 by Brice Eisenberg MD at [facility] [employer] 3086 / / Kit Stimulator Octrode L60 Cm Trial Lead Neurostimulator - [id number] Implanted:Qty: 1 on 05/03/2017 by Brice Eisenberg MD at [facility] [employer] 3086 / / Kit Neurostimulator Octrode L60 Cm Percutaneous 8 Electrode Lead - [id number] - [id number] Implanted:Qty: 1 on 06/22/2017 by Brice Eisenberg MD at [facility] N/A: Back [employer] 05/24/2019 [id number] / [id number] / Kit Neurostimulator Octrode L60 Cm Percutaneous 8 Electrode Lead - [id number] - [id number] Implanted:Qty: 1 on 06/22/2017 by Brice Eisenberg MD at [facility] N/A: Back [employer] 05/24/2019 [id number] / [id number] / [place] Lead Eduardo-Lock - [id number] Implanted:Qty: 2 on 06/22/2017 by Brice Eisenberg MD at [facility] N/A: Back [employer] 05/18/2019 1192 / / [id number] Generator Neurostimulator Proclaim Elite Thk13.4 Mm 5 In W49.5 Mm X H55.5 Mm Spinal Cord Implantable Pulse - Gyeg529.1 - [id number] Implanted:Qty: 1 on 06/22/2017 by Brice Eisenberg MD at [facility] N/A: Back [employer] 05/02/2019 [id number] / [id number] / [employer] System Closure Repair Femoral Artery Suture Mediated Perclose Prostyle 57226-15 - [id number] Implanted:Qty: 1 on 11/16/2023 by Emilio Leggett MD at [facility] [employer] 07/29/2025 1 2773- / / [id number] [employer] System Closure Repair Femoral Artery Suture Mediated Perclose Prostyle 04504-29 - [id number] Implanted:Qty: 1 on 11/16/2023 by Emilio Leggett MD at [facility] [employer] 07/29/2025 1 2773- / [id number] [employer] System Closure Repair Femoral Artery Suture Mediated Perclose Prostyle 50565-37 - [id number] Implanted:Qty: 1 on 11/16/2023 by Emilio Leggett MD at [facility] [employer] 07/29/2025 1 2773- / / [id number] [employer] Percutaneous Transcatheter Amplatzer Amulet 22mm 0-[id number] - [id number] Implanted:Qty: 1 on 11/16/2023 by Emilio Leggett MD at [facility] [employer] 11/29/2027 9 -ACP2-00 7-022 / / [id number] Procedures Procedure Name Priority Date/Time Associated Diagnosis Comments DEVICE CHECK - REMOTE Routine 05/02/2024 10:21 AM CORNER CUTTER MACHINE OPERATOR PAF (paroxysmal atrial fibrillation) (CMS/HCC) (HCC) DEVICE CHECK - REMOTE Routine 03/05/2024 11:24 AM CORNER CUTTER MACHINE OPERATOR PAF (paroxysmal atrial fibrillation) (CMS/HCC) (HCC) from Last 3 Months Results * DEVICE CHECK - REMOTE (05/02/2024 10:21 AM CORNER CUTTER MACHINE OPERATOR) Anatomical Region Laterality Modality Other Narrative 05/24/2024 10:29 AM CORNER CUTTER MACHINE OPERATOR [employer] LNQ22 Loop Recorder. Dx; Syncope, Afib. DOI 08/08/2022-[place]. [facility] remote monitoring. Routine ILR remote. Normal device function. Battery function-Good. Presenting rhythm: VS, regular 130 bpm. Medications: ??ASA 81 mg, Toprol-XL, Lipitor. Patient has a left atrial appendage occlusion device. Counters since last scheduled transmission on 02/26/2024. --48 Tachy egm's Afib with RVR. --0 Darren --0 Pause --0 Symptom --27 AF egm's Afib. AF [place] 2.3%. See scanned report. [facility] remote f/u 05/27/2024. Annie Lew RN Emilio Leggett MD [facility] PROCEDURES F inal Result * DEVICE CHECK - REMOTE (03/05/2024 11:24 AM CORNER CUTTER MACHINE OPERATOR) Anatomical Region Laterality Modality Other Narrative 03/13/2024 8:08 AM CORNER CUTTER MACHINE OPERATOR Med[employer] LNQ22 Loop Recorder. Dx; Syncope, Afib. DOI 08/08/2022-[place]. [facility] remote monitoring. 04/14/23-WAD note: Anticoagulation contraindication d/t frequent falls and h/o head injury. ILR interrogations for more definitive documentation of Afib [place] and justification for LAAO device implant. Routine [...] from Last 3 Months Insurance [facility] MEDIC[facility] Address: [address] [address] [place] [address] [facility] Address: [address] [place] [address] [facility] Address: [facility] [address] [place] [address] Care Teams Prop Worker Relationship Specialty Start Date End Date Gadiel Zavala MD [address] [address] PCP - General 06/13/16 Lyudmila Knox, RN Registered Nurse 04/14/17 Jennifer Escalona, RN Registered Nurse 05/10/17
--- OUTSIDE RECORDS SUMMARY | 2024-05-31 03:34 | XMS_ITS | Clinical Summary ---
Author Organization [facility] Address [address] [place] [address] Phone Care Team Providers Care Drone Pilot Name Role Phone Gadiel Zavala MD Primary Care Provider [phone] Allergies Active Allergy Reactions Criticality Noted Date Comments Adhesive Rash Low 02/14/2017 Adhesive Tape-Silicones Rash Low Gadolinium-Containing Contrast Media Hives High 02/28/2017 Gadopentetate Dimeglumine Hives High 02/28/2017 Latex Other (See Comments) 10/31/2017 Pt states no. Is fine with gloves. Only allergy is to adhesive. Medications omeprazole (PriLOSEC) 40 mg Capsule, Delayed Release(E.C.) Take 40 mg by mouth 2 times daily. Active levothyroxine 50 mcg tablet Take 50 mcg by mouth daily senior net c developer. Active atorvastatin (LIPITOR) 20 mg tablet Take [...] every 4 hours as needed for Pain. 7 Active docusate sodium (COLACE) 100 mg capsule Take 1 Capsule (100 mg) by mouth 2 times daily. 7 Active sennosides-docu sate sodium (SENNA-S) 8.6-50 mg tablet Take 1 Tablet by mouth daily at bedtime. 7 Active melatonin 3 mg Tablet Take 1 Tablet (3 mg) by mouth daily at bedtime. 7 Active methocarbamol (ROBAXIN) 500 mg tablet Take 1 Tablet (500 mg) by mouth 3 times daily as needed for Spasm Contact PCP for refills. 90 Tablet 7 Active metoprolol succinate (TOPROL XL) 100 mg Extended Release 24 hour tablet Take 100 mg by mouth daily. Active celecoxib 200 mg capsule Take 200 mg by mouth 2 times daily. Active oxyCODONE-aceta minophen (PERCOCET) 5-325 mg tablet Take 1-2 Tablets by mouth every 4 hours as needed for Pain, Moderate. Max Daily Amount: 12 Tablets 20 Tablet 8 Active meloxicam (MOBIC) 15 mg tablet Take 15 mg by mouth daily. Active naloxone (NARCAN) 4 mg/spray Bloomer, Non-Aerosol EMERGENCY USE ONLY: Administer 1 spray (4 mg) in one nostril one time. May repeat in alternating nostrils every 2-3 min until responsive or EMS arrives. 2 Each 3 1 Active FLAXSEED OIL ORAL Take by mouth. Activ e OTHER Prevagen Active amLODIPine (NORVASC) 10 mg tablet Take 10 mg by mouth daily. Active oxybutynin chloride (DITROPAN) 5 mg tablet Take 5 mg by mouth 2 times daily. Active linaCLOtide 72 mcg capsule Take 72 mcg by mouth daily before breakfast. Active vitamin B complex (B COMPLEX 1 ORAL) Take by mouth. Active losartan (COZAAR) 25 mg tablet Take 25 [...] of spine 02/16/2017 Fall Cervical myelopathy Immunizations Immunization Administration Dates Next Due Influenza Vaccine High [...] alcohol) 1-2 times per month 1 drink Comments No Sex and Gender Information Value Date Recorded Sex Assigned at Not on file Legal Sex Female 2:37 PM CDT Gender Identity Not on file Sexual Orientation Not on file Last Filed Vital Signs Vital Sign Reading Time Taken Comments Blood Pressure 122/80 06/14/2022 10:12 AM RESEARCH WORKER ENCYCLOPEDIA Pulse 57 06/14/2022 10:12 AM RESEARCH WORKER ENCYCLOPEDIA Temperature 36.7 ??C (98.1 ??F) 02/05/2021 5:04 PM CD T Respiratory Rate 16 02/05/2021 5:04 PM CDT Oxygen Saturation 99% 02/05/2021 5:04 PM CDT Inhaled Oxygen Concentration - - Weight 57.4 kg (126 lb 8 oz) 06/14/2022 10:12 AM RESEARCH WORKER ENCYCLOPEDIA Height 152.4 cm (5') 06/14/2022 10:12 AM RESEARCH WORKER ENCYCLOPEDIA Body Mass Index 24.71 06/14/2022 10:12 AM RESEARCH WORKER ENCYCLOPEDIA Plan of Treatment Health Maintenance Due Date Last Done Comments DTAP/TDAP/TD VACCINES (1 - Tdap) 07/22/1967 COLORECTAL SCREENING 1993 Colorectal Cancer Screening 1993 FIT-DNA Q 3 years 1993 FIT/FOBT Q 1 year 1993 Flex Sig/CT Colonography Q 5 years 1993 PNEUMOCOCCAL VACCINE 65+ YEA RS (1 of 1 - PCV) 1998 ZOSTER VACCINE (1 of 2) 1998 OSTEOPOROSIS SCREENING 2013 RSV VACCINE (60+ or ) (1 - 1-dose 75+ series) 07/22/2023 INFLUENZA VACCINE (#1) 2023 01/26/2021, 2016 Medical Devices Implanted Type Area Lab Animal Technologist Device Identifier Shelf Expiration Date Model / Serial / Lot Spacer Bio Avs C-Plg 6mm 4d [id number] - [id number] Implanted:Qt y: 1 on 02/16/2017 by Mylene Gutierrez MD at [facility] Biological N/A: Spine Cervical Anterior SEN- SPINE 09/12/2020 [id number] / [id number] / Description:All [place] spac er plugs and other spinal hardware was processed on requisition,[id number] Plate Aviator 1lvl 12mm [id number] - [id number] Implanted:Qt y: 1 on 02/16/2017 by Mylene Gutierrez MD at [facility] Plate N/A: Spine Cervical Anterior SEN- SPINE [id number] / STERILIZED 02/16/2017 / LOAD24 Screw Avtr [address] St 4.0x14mm [id number] - [id number] Implanted:Qt y: 4 on 02/16/2017 by Mylene Gutierrez MD at [facility] Screw N/A: Spine Cervical Anterior SEN- SPINE [id number] / STERILIZED 02/16/2017 / LOAD24 Sealant Floseal 10ml [id number] - [id number] Implanted:Qt y: 1 on 02/16/2017 by Mylene Gutierrez MD at [facility] Sealant N/A: Spine Cervical Anterior CHERRY- BIOSCIENCE [id number] 03/16/2018 [id number] / / [id number] Cages In Back Explanted Type Area Lab Animal Technologist Device Identifier Shelf Expiration Date Model / Serial / Lot Spinal Cord Generator And Leads Explanted:Qty: 1 on 11/16/2017 by Mylene Gutierrez MD at [facility] Lead N/A: Back Insurance Advance Directives For more information, please contact: [phone] * Full Code (Latest Code Status on [...] 12:48 PM 11/16/2017 12:50 PM Care Teams Drone Pilot Relationship Specialty Start Date End Date Gadiel Zavala MD [address] [place] [address] PCP - General Family Practice 03/03/17
--- OUTSIDE RECORDS SUMMARY | 2024-05-31 03:34 | XMS_ITS | Patient Health Summary ---
Author Organization [facility] Address [address] [address] Care Team Providers Care Knockout Worker Name Role Phone Gadiel Zavala MD Primary Care Provider [phone] Note from [facility],non-owned Affiliates and Associated Physician Practices is amultiple site organization consisting of ambulatory clinics and hospital sitesin [place], [place], [place] and [place]. This disclosure is being madepursuant to the Care Everywhere program and may not contain all information available regarding this patient. Last updated 18.[facility] Allergies * Adhesive Sensitivity(Rash) -Medium [...] 6 hours as needed for Pain * dxuuxwfd-ybldtxmda-oigdpqrm (Maxitrol) ophthalmic suspension(Started 02/01/2022) Instill 1 (one) [...] CDT) Case Report Dermatopathology Report ? Case: [id number] ? Authorizing Provider: ??Angie Fortune, ?? Collected: ? 08/05/2020 03:33 AM ? Ordering Location: ? [facility] DermPath Lab ?Received: ?08/06/2020 07:28 AM ? [...] NMSC. B: LENT R/O atypia. 4:26 PM [facility] DERMATOPATHOLOGY LABORATORY Gross Description Specimen A: Received is one formalin filled container labeled with the patient's name and designated left abdomen. The specimen consists of a shave measuring [id number]. Jar 0. Specimen B: Received is one formalin filled container labeled with the patient's name and designated right inner upper arm. The specimen consists of a shave measuring [id number]. Jar 0. 4:26 PM T DERMATOPATHOLOGY LABORATORY [...] Dr. Danielle Montenegro, who agrees. 4:26 PM [facility] DERMATOPATHOLOGY [facility]ORATORY Disclaimer An external and internal positive and negative controls are appropriate for the histochemical, immunohistochemical and immunofluorescence stain(s) in this case (if any), except where stated explicitly. The performance characteristics of the stain(s) cited in this report were developed and its performance characteristic determined by the Dermatopathology Laboratory at [facility], directed by Dr. Luis Montenegro. These tests need not be, and therefore are not, approved by the [place] Food and Drug Administration. The tests are used for clinical purposes. Billing Codes Specimen Charges Stain Charges 67381 85619 1 1 25988 1 4:26 PM CDT DERMATOPATHOLOGY LABORATORY Embedded Images 4:26 PM T DERMATOPATHOLOGY LABORATORY Pathology/Cytology TISSUE SPECIMEN FROM SKIN / Unknown 08/05/2020 3:33 AM CDT 08/06/2020 7:28 AM CDT Miscellaneous samples (specimen) TISSUE SPECIMEN FROM SKIN / Unknown 08/05/2020 3:33 AM CDT 08/06/2020 7:28 AM CDT Angie Fortune DO LAB - PATHOLOGY/C YTOLOGY ORDERABLES DERMATOPATHOLOGY LABORATORY [facility] - Department of Dermatology [facility] Medicine [address] [place] [address], [address] [phone] Care Teams Knockout Worker Relationship Specialty Start Date End Date Gadiel Zavala MD [address] [facility] [address] [address] PCP - General 02/15/21
--- OUTSIDE RECORDS SUMMARY | 2024-05-31 03:34 | XMS_ITS ---
Author Organization [facility] Address [address] [place] [address] Care Team Providers Care Inspector Scales Name Role Phone Gadiel Zavala MD Primary Care Provider [phone] Lyudmila Knox RN Unavailable Unavailable Jennifer Escalona [...] treatments are documented for this patient in [facility]. Treatments may have been administered in another system. Lifetime Dose Tracking * Chemical Lifetime Dose Automatic Entry Manual Entr y Fluoro Time 2.32 minutes 2.32 minutes 0 minutes Air kerma at the reference point (Ka,r) 370 mGy 0 mGy 370 mGy
--- OUTSIDE RECORDS SUMMARY | 2024-05-31 03:34 | XMS_ITS | Continuity of Care Document ---
Author Organization [facility] Address [address] [place] [address] Phone Care Team Providers Care Scientific Process Operator Name Role Phone Jorge Cevallos Unavailable Unavailable Procedures Procedure Date No Charge Glasses Check Office/outpatient Visit, Est Refraction Eye Exam & Treatment Refraction Advance Directives Directive Yes / No Effective Date File Name No Information Encounters Encounter Description Practice Location Reason(s) For Visit Diagnoses Date Provider Providers Copied on Encounter [facility], [address] [place] [address] [address], [place], [place], [id number], tel:[phone] [facility] No Information 0 Ban Patel. [address] , [address], [place], [place], [facility], [place]. tel:[phone] Office/outpat ient Visit, Est [facility], [address] [place] [address] [address], [place], [place], [id number], [place] tel:[phone] [facility] No Information [address] Ban Patel. [address] , [address], [place], [address], [place]. tel:[phone] [facility], [address] [place] [address] [address], [place], [place], [id number], tel:[phone] [facility] No Information [address] Ban Patel. [address] , [address], [place], [address], [place]. tel:[phone] Family History Family Member Type Diagnosis Age [...]
--- OUTSIDE RECORDS SUMMARY | 2024-05-31 03:34 | XMS_ITS | Referral Summary ---
Author Organization [facility] Address [address] [place] [address] Care Team Providers Care Character Artist Name Role Phone Gadiel Zavala MD Primary Care Provider [phone] Source Comments [facility],non-owned Affiliates and Associated Physician Practices is amultiple site organization consisting of ambulatory clinics and hospital sitesin [place], [place], [place] and [place]. This disclosure is being madepursuant to the Care Everywhere program and may not contain all information available regarding this patient. Last updated 18.[facility] Allergies Active Allergy Reactions Criticality Noted Date [...] of Treatment Not on file Care Teams Character Artist Relationship Specialty Start Date End Date Gadiel Zavala MD [address] [place] [address] PCP - General 02/15/21
--- OUTSIDE RECORDS SUMMARY | 2024-05-31 03:34 | XMS_ITS | Clinical Summary ---
Author Organization Address [address] [place] [address] Care Team Providers Care Craft Manager Name Role Phone Gadiel Zavala MD Primary Care Provider [phone] Lyudmila Knox RN Unavailable Unavailable Jennifer Escalona [...] tablet by mouth once daily 90 tablet 4 Active Active Problems Problem Noted Date Diagnosed Date Presence of Amulet left atrial appendage closure device 11/16/2023 Surgical complication involv ing both eyes, unspecified complication 10/24/2023 Visit for wound check 08/15/2022 Status post placement of implantable loop record er 08/09/2022 Overview (11/24/2023): Medtronic LNQ22 Loop Recorder. Dx; Syncope, Afib. DOI 08/08/2022-Chris. [facility] remote monitoring. Amulet placed 11/16/23 Falls frequently [...] Department Care Team Description 05/27/2024 9:15 AM TONGUE AND GROOVE MACHINE OPERATOR Ancillary Procedure [facility] Cardiology [address] [place] [address] [place] [id number] PAF (paroxysmal atrial fibrillation) (CMS/HCC) ([facility]) 05/02/2024 Orders Only [facility] Cardiology [address] [place] [phone] Emilio Leggett MD Paroxysmal atrial fibrillation (CMS/HCC) ([facility]) (Primary Dx); Status post placement of implantable loop recorder; Syncope, unspecified syncope type 04/15/2024 9:15 AM TONGUE AND GROOVE MACHINE OPERATOR Ancillary Procedure [facility]iology [address] [facility] [address] [place] [phone] Status post placement of implantable loop recorder (Primary Dx); PAF (paroxysmal atrial fibrillation) (CMS/HCC) (HCC); Syncope and collapse 03/04/2024 9:00 AM TONGUE AND GROOVE MACHINE OPERATOR Ancillary Procedure [facility] [address] [place] [phone] Status post placement of implantable loop recorder (Primary Dx); PAF (paroxysmal atrial fibrillation) (CMS/HCC) (HCC); Syncope and collapse from Last 3 Months Surgical History Surgery [...] = 0.6 oz pur e alcohol) social Lex[employer] Utilities Answer Date Recorded In the past 12 months has Beg[employer] gas, oil, or water [employer] threatened to shut off services in your [...] 11/17/2023 How often do you attend [facility] or [facility] services? Never 11/17/2023 Do you belong to any clubs o r organizations such as sabianist groups, unions, fraOneTrueFan or athletic groups, or school groups? No [...] any time in the past 12 [facility], were you homeless or living in [...] on file Legal Sex Female 3:22 AM TONGUE AND GROOVE MACHINE OPERATOR Gender Identity Not on file [...] March 2017 Medical Devices Implanted Type Area Realtime Court Reporter Device Identifier Shelf Expiration Date Model / Serial / Lot Cage Cage Back Other Kit Stimulator Octrode L60 Cm Trial Lead Neurostimulator - [id number] Implanted:Qty: 1 on 05/03/2017 by Brice Eisenberg MD at [facility] [address] [employer] 3086 / / Kit Stimulator Octrode L60 Cm Trial Lead Neurostimulator - [id number] Implanted:Qty: 1 on 05/03/2017 by Brice Eisenberg MD at [facility] [employer] 3086 / / Kit Neurostimulator Octrode L60 Cm Percutaneous 8 Electrode Lead - [id number] - [id number] Implanted:Qty: 1 on 06/22/2017 by Brice Eisenberg MD at N/A: Back [employer] 05/24/2019 [id number] / [id number] / Kit Neurostimulator Octrode L60 Cm Percutaneous 8 Electrode Lead - [id number] - [id number] Implanted:Qty: 1 on 06/22/2017 by Brice Eisenberg MD at N/A: Back [employer] 05/24/2019 [id number] / [id number] / [place] Lead Eduardo-Lock - [id number] Implanted:Qty: 2 on 06/22/2017 by Brice Eisenberg MD at N/A: Back [employer] 05/18/2019 1192 / / [id number] Generator Neurostimulator Proclaim Elite Thk13.4 Mm 5 In W49.5 Mm X H55.5 Mm Spinal Cord Implantable Pulse - Dwoi163.1 - [id number] Implanted:Qty: 1 on 06/22/2017 by Brice Eisenberg MD at N/A: Back [employer] 05/02/2019 [id number] / [id number] / [employer] Closure Repair Femoral Artery Suture Mediated Perclose Prostyle 47983-81 - [id number] Implanted:Qty: 1 on 11/16/2023 by Emilio Leggett MD at [employer] [facility] 07/29/2025 1 2773-03 / / [id number] [employer] System Closure Repair Femoral Artery Suture Mediated Perclose Prostyle 70986-61 - [id number] Implanted:Qty: 1 on 11/16/2023 by Emilio Leggett MD at [facility] 07/29/2025 1 [id number] [employer] System Closure Repair Femoral Artery Suture Mediated Perclose Prostyle 99984-95 - [id number] Implanted:Qty: 1 on 11/16/2023 by Emilio Leggett MD at [facility] 07/29/2025 1 2772-06 [id number] [employer] Percutaneous Transcatheter Amplatzer Amulet 22mm 9-Poo0-118-022 - [id number] Implanted:Qty: 1 on 11/16/2023 by Emilio Leggett MD at [facility] 11/29/2027 9 -ACP2-00 7-022 / / [id number] Procedures Procedure Name Priority Date/Time Associated Diagnosis Comments DEVICE CHECK - REMOTE Routine 05/02/2024 10:21 AM TONGUE AND GROOVE MACHINE OPERATOR PAF (paroxysmal atrial fibrillation) (CMS/HCC) (HCC) DEVICE CHECK - REMOTE Routine 03/05/2024 11:24 AM TONGUE AND GROOVE MACHINE OPERATOR PAF (paroxysmal atrial fibrillation) (CMS/HCC) (HCC) from Last 3 Months Results * DEVICE CHECK - REMOTE (05/02/2024 10:21 AM TONGUE AND GROOVE MACHINE OPERATOR) Anatomical Region Laterality Modality Other Narrative 05/24/2024 10:29 AM TONGUE AND GROOVE MACHINE OPERATOR Send[employer]onic LNQ22 Loop Recorder. Dx; Syncope, Afib. DOI 08/08/2022-Magazine. [facility] remote monitoring. Routine ILR remote. Normal device function. Battery function-Good. Presenting rhythm: VS, regular 130 bpm. Medications: ??ASA 81 mg, Toprol-XL, Lipitor. Patient has a left atrial appendage occlusion device. Counters since last scheduled transmission on 02/26/2024. --48 Tachy egm's Afib with RVR. --0 Darren --0 Pause --0 Symptom --27 AF egm's Afib. AF Delano 2.3%. See scanned report. [facility] remote f/u 05/27/2024. Annie Lew, LOGAN Emilio Leggett MD [facility] PROCEDURES F inal Result * DEVICE CHECK - REMOTE (03/05/2024 11:24 AM TONGUE AND GROOVE MACHINE OPERATOR) Anatomical Region Laterality Modality Other Narrative 03/13/2024 8:08 AM TONGUE AND GROOVE MACHINE OPERATOR [email or web address] LNQ22 Loop Recorder. Dx; Syncope, Afib. DOI 08/08/2022-Magazine. [facility] remote monitoring. 04/14/23-WAD note: Anticoagulation contraindication d/t frequent falls and h/o head injury. ILR interrogations for more definitive documentation of Afib Delano and justification for LAAO device implant. Routine [...] from Last 3 Months Insurance MEDICARE [facility] MEDICARE Address: [address] [address] [place] [address] MEDICARE [facility] MEDICARE Address: [address] [address] [place] [address] MEDICARE [facility] MEDICARE Address: [address] [address] [place] [address] Care Teams Craft Manager Relationship Specialty Start Date End Date Gadiel Zavala MD [address] [address] PCP - General 06/13/16 Lyudmila Knox, RN Registered Nurse 04/14/17 Jennifer Escalona, RN Registered Nurse 05/10/17
--- OUTSIDE RECORDS SUMMARY | 2024-05-31 03:34 | XMS_ITS | Clinical Summary ---
Author Organization [facility] Address [address] [facility] [place] [address] Care Team Providers Care Manager Retail Name Role Phone Gadiel Zavala MD Primary Care Provider [phone] Source Comments [facility],non-owned Affiliates and Associated Physician Practices is amultiple site organization consisting of ambulatory clinics and hospital sitesin [place], [place], [place] and [place]. This disclosure is being madepursuant to the Care Everywhere program and may not contain all information available regarding this patient. Last updated 18.[facility] Allergies Active Allergy Reactions Criticality Noted Date [...] 07/17/1966 DTAP/TDAP/TD VACCINES (1 - Tdap) 07/22/1967 PNEUMOCOCCAL VACCINE 50+ (1 of 1 - PCV) 1998 ZOSTER VACCINE (1 of 2) 1998 Respiratory Syncytial Virus (RSV) Vaccine Pt: or over 60 yrs (1 - 1-dose 75+ series) 07/22/2023 COVID-19 VACCINE ( - 2023-2 5 season) 2023 INFLUENZA VACCINE (#1) 2023 03/01/2017 DEPRESSION SCREENING 05/01/2024 MEDICARE AWV ? CALENDAR YEAR 2024 HEPATITIS B VACCINE Aged Out No longe r eligible based on patient's age to complete this topic HIB VACCINE Aged Out No longer eligi ble based on patient's age to complete this topic HPV VACCINE Aged Out No longer eligi ble based on patient's age to complete this topic MENINGOCOCCAL (Group B) VACCINE Aged Out No longer eligible based on patient's age to complete this topic MENINGOCOCCAL VACCINE Aged Out No adan javier eligible based on patient's age to complete this topic Care Teams Manager Retail Relationship Specialty Start Date End Date Gadiel Zavala MD [address] [place] [address] PCP - General 02/15/21
--- OUTSIDE RECORDS SUMMARY | 2024-05-31 03:35 | XMS_ITS | Clinical Summary ---
Author Organization [facility] Address [address] [place] [address] Phone Care Team Providers Care Advanced Analytics Associate Name Role Phone Gadiel Zavala MD [...] Cologuard 1998 Immunochemical Fecal Occult Blood 1998 Pneumococcal Immunization (5 0+ years) (1 of 1 - PCV) 1998 Zoster Immunization (1 of 2) 1998 Respiratory Syncytial Virus (RSV) Immunization (Adult) (1 - 1-dose 75+ series) 07/22/2023 Influenza Immunization (#1) 2023 SARS-COV-2 Immunization ( - 2023-25 season) 2023 Hepatitis B Immunization Aged Out No longer eligible based on patient's age to complete this topic Meningococcal Immunization (ACWY) Aged Out No longer eligible based on patient's age to complete this topic Rotavirus Immunization Aged Out No lo nger eligible based on patient's age to complete this topic Insurance MEDICARE C [employer] Care Teams Advanced Analytics Associate Relationship Specialty Start Date End Date Gadiel Zavala MD [address] [address] PCP - General Family Medicine 02/09/17
[2024-05-31 03:40] VITALS: BP 152/82; PULSE 63; RESP 16; TEMP 36.4; O2SAT 100
[2024-05-31 06:41] VITALS: BP 150/71; PULSE 61; RESP 14; O2SAT 100
[2024-05-31 07:30] VITALS: BP 131/78; PULSE 57; RESP 18; O2SAT 100
--- NOTE | 2024-05-31 07:37 | ED_ITS ---
HPI - Fall General Chief Complaint: Fall Stated Complaint: glf hit head on dresser Time Seen by Provider: 05/31/24 07:08 Source: patient Mode of arrival: ambulatory Limitations: no limitations History of Present Illness HPI Narrative: Patient workup at 2:00 a.m. to go to the bathroom somehow tripped or lost her balance and fell against the dresser causing laceration of the forehead, no loss of consciousness, complaining of left shoulder pain. She denies other injuries. Patient had a tetanus shot in the last 2-3 years Related Data Home Medications ?Medication ?Instructions ?Recorded ?Confirmed ?Last Taken ?Type vitamin E 268 mg (400 unit) capsule 400 unit PO QAM 10/04/21 03/20/24 08/07/22 History aspirin 81 mg tablet,delayed 81 mg PO DAILY 07/20/22 03/20/24 08/07/22 History release (Adult Low Dose Aspirin) losartan 25 mg tablet 25 mg PO DAILY 08/05/22 03/20/24 08/07/22 History diclofenac sodium 1 % topical gel 2 g topical QID 01/24/23 03/20/24 Unknown History (Voltaren Arthritis Pain) cyanocobalamin (vitamin B-12) 1,000 mcg PO DAILY 07/02/23 03/20/24 Unknown History 1,000 mcg tablet Allergies Allergy/AdvReac Type Severity Reaction Status Date / Time gadobenic acid (From Allergy Intermediate Hives & Verified 05/20/24 13:21 CONTRAST-MRI) SWELLING iohexol (From contrast - CT, Allergy Hives Verified 05/20/24 13:21 X-RAY) latex Allergy Hives Verified 05/20/24 13:21 adhesive tape AdvReac Mild SKIN Verified 05/20/24 13:21 IRRITATION Review of Systems Review of Systems: All systems reviewed & are unremarkable except as noted in HPI and below PMFSH Past Medical History Medical History BMI 25.0-25.9,adult Paroxysmal atrial fibrillation New onset headache Vitamin B12 deficiency (06/27/23) level low at 322 with goal greater than 400 with folic acid 12.5 and hemoglobin 13.3 on 06/27/2023. UTI (urinary tract infection) RUQ pain Dysphagia Black tongue Encounter for HCV screening test for low risk patient (12/28/22) Hepatitis C screening was negative on 12/28/2022. hepatitis C screening was negative on 06/27/2023. Radiculitis, cervical Generalized weakness Frequent falls Left arm weakness Cervicalgia Acute pain of left knee x-ray of the left knee on 01/18/2022 reveals no significant bony defects. Low ferritin level (12/25/21) ferritin low at 7 with iron 63 with 17% saturation on 12/25/2021. total iron 63 with 17% saturation and ferritin low at 7 with hemoglobin 13.3 12/27/2021. Iron 63 with 15% saturation and ferritin 11 with hemoglobin 12.8 on 12/28/2022. Iron normal at 118 with 29% saturation and ferritin low at 13 with hemoglobin 13.3 on 06/27/2023. Encounter for surgical aftercare following surgery on the digestive system Postoperative ileus Primary adenocarcinoma of ascending colon (09/01/21) right hemicolectomy 10/13/2021. Colonoscopy 11/21/2022 negative for recurrence with recheck in 3 years. CEA normal at 2.1 on 12/28/2022. Colon cancer, ascending Colonic mass (~09/01/21) 25-30 mm mass ascending colon On 09/01/2021. the patient had a right hemicolectomy on 10/13/2021 for adenocarcinoma of the ascending colon. Essential hypertension BMI 23.0-23.9, adult Weight loss, unintentional Vitamin D deficiency, unspecified (12/15/20) level low at 26 with goal greater than 30 on 12/15/2020 Low iron (12/15/20) iron 51 with 14% saturation and hemoglobin 12.5 on 12/15/2020. Iron 63 with 17% saturation and ferritin low at 7 on 12/27/2021. Iron 63 with 15% saturation and ferritin low at 11 with hemoglobin 12.8 on 12/28/2022. Iron 118 with 29% saturation and ferritin 113 on 06/27/2023. Chronic left hip pain Breast cancer screening by mammogram mammogram on 01/20/2021 was negative. Recheck in 1 year. Normal mammogram 01/24/2022. Normal mammogram 05/10/2023. Colon cancer screening Constipation Hiatal hernia Encounter for preprocedure screening laboratory testing for COVID-19 BMI 22.0-22.9, adult At high risk for falls Overactive bladder Chronic low back pain with left-sided sciatica Fatigue Seborrheic keratosis Insomnia Urinary frequency volume chart completed Chronic cough Urinary frequency Mixed hyperlipidemia total cholesterol 207, triglycerides 87, HDL 62, LDL 126 on 12/15/2020. Cholesterol 230, triglycerides 119, HDL 70, LDL 136 on 12/25/2021. Cholesterol 241, triglycerides 102, HDL 75, LDL 144 on 12/28/2022. Cholesterol 230, triglycerides 77, HDL 81, LDL 132 with ratio of 2.8 on 06/27/2023. Hypothyroidism TSH 1.22 with free T4 at 1.5 on 12/15/2020. TSH 1.19 on 12/25/2021. TSH 0.77 on 06/27/2023. Chronic depression Chronic low back pain with right-sided sciatica X-ray of the lumbar spine on 01/18/2022 reveals previous posterior fusion from L3 through S1 unchanged from 08/11/2018 with new severe degenerative disc disease at L2-L3 chronic burst fracture with vertebroplasty at L1 unchanged. Elbow contusion Chronic back pain Arthritis GERD (gastroesophageal reflux disease) Hypertension Hyperlipidemia Peripheral neuropathy Surgical History Surgical History Hx of cervical spine surgery Hx of right hemicolectomy 10/13/2021 History of back surgery lumbosacral fusion Family History Family History Other Alcohol abuse Diabetes mellitus Hypertension Social History Social History Years smoked: 10 Smoking status: Former smoker Tobacco type: cigarettes Second hand tobacco smoke exposure: No Alcohol intake: never Substance use: never Substance use type: does not use Current Housing: Decline to Answer Concerned About Future Housing: Decline to Answer Difficulty Paying Gas/Electric Bills: Decline to Answer Difficulty Paying for Meds: Decline to Answer Currently Unemployed: Decline to Answer Education: Decline to Answer Difficulty w/ Childcare or Family Care: Decline to Answer Living arrangements: with family Occupation/Education: retired Gender identity (if verbalized by the patient): Female Spiritual care concerns: No Exam Narrative: General appearance: Well-developed, well-nourished Skin: Scattered bruises Head: Normocephalic, nontraumatic, forehead laceration Eyes: Clear conjunctiva ENT: Oropharynx normal, ears normal, nose normal Neck: Supple, nontender Chest and respiratory: Airway patent, no respiratory distress, no accessory muscle use Heart: Regular rate/rhythm Abdomen: Soft, nontender, no organomegaly, quiet bowel sounds Musculoskeletal: Normal range of motion, nontender back Neurologic: Alert and oriented ?3, SENIOR HOUSEKEEPER is normal as tested, no gross motor deficit Course Vital Signs Vital signs: Vital Signs Temperature 36.4 C L 05/31/24 03:40 Pulse Rate 63 05/31/24 03:40 Respiratory Rate 16 05/31/24 03:40 Blood Pressure 152/82 H 05/31/24 03:40 Pulse Oximetry 100 05/31/24 03:40 Temperature 36.4 C L 05/31/24 03:40 Pulse Rate 61 05/31/24 06:41 Respiratory Rate 14 05/31/24 06:41 Blood Pressure 150/71 H 05/31/24 06:41 Pulse Oximetry 100 05/31/24 06:41 MDM - Fall Imaging Data Radiologist's impression: Impressions Elbow X-Ray 05/31/24 05:28 IMPRESSION: 1: NO ACUTE BONE OR JOINT ABNORMALITY IDENTIFIED. Head CT 05/31/24 06:31 IMPRESSION: 1. No acute intracranial abnormality. Critical Care Time Critical Care Time Critical Care Time: No Discharge Plan Discharge Clinical Impression: Fall, Facial laceration Patient Disposition: Home, Self-Care Condition: Improved Instructions: Antibiotic Form, Contusion in Adults (ED), Facial Laceration (ED) Additional Instructions: Return if symptoms are worsening , call your family physician for appointment, take Tylenol as as needed for aches and pain, continue home medications. Remove sutures in 6 days Patient Language: Indonesian Prescriptions: New cephalexin 500 mg capsule 500 mg PO Q8H 7 Days Qty: 21 0RF No Action aspirin [Adult Low Dose Aspirin] 81 mg tablet,delayed release (DR/EC) 81 mg PO DAILY diclofenac sodium [Voltaren Arthritis Pain] 1 % gel 2 g topical QID Patient Comments: samples [id number] gel. Twice daily the both knee Rx Instructions: apply to single elbow, wrist or hand; for hand includes palm/fingers/back of hand duloxetine 60 mg capsule,delayed release(DR/EC) 60 mg PO BID Qty: 180 3RF vitamin E 400 unit Capsule 400 unit PO QAM losartan 25 mg tablet 25 mg PO DAILY hydrocodone-acetaminophen 5-325 mg tablet 1 tablet PO Q6H PRN (Reason: pain) 3 Days Qty: 12 0RF omeprazole 40 mg capsule,delayed release(DR/EC) 40 mg PO BID Qty: 180 3RF ferrous sulfate 324 mg (65 mg iron) tablet,delayed release (DR/EC) 324 mg PO DAILY Qty: 30 11RF cyanocobalamin (vitamin B-12) 1,000 mcg tablet 1,000 mcg PO DAILY mirabegron [Myrbetriq] 50 mg tablet extended release 24 hr 50 mg PO DAILY Qty: 30 11RF levothyroxine 50 mcg tablet 50 mcg PO QAM Qty: 90 3RF Rx Instructions: patient prefers generic now. metoprolol succinate [Toprol XL] 100 mg tablet extended release 24 hr 100 mg PO QAM Qty: 30 11RF eszopiclone [Lunesta] 3 mg tablet 3 mg PO . q.h.s. PRN (Reason: insomnia) Qty: 30 5RF Rx Instructions: Take one tablet at bedtime for insomnia pantoprazole [Protonix] 20 mg tablet,delayed release (DR/EC) 20 mg PO HS 42 Days Qty: 30 11RF atorvastatin 20 mg tablet 20 mg PO QAM Qty: 90 3RF Follow-up/Referrals: Gadiel Zavala MD [Primary Care Provider] -
[2024-05-31 08:15] VITALS: BP 127/74; PULSE 57; RESP 20; O2SAT 100
--- OUTSIDE RECORDS SUMMARY | 2024-05-31 08:17 | XMS_ITS | Referral Summary ---
Author Organization [facility] Address [address] [place] [address] Care Team Providers Care Microchip Specialist Name Role Phone Gadiel Zavala MD Primary Care Provider [phone] Lyudmila Knox RN Unavailable Unavailable Jennifer Escalona RN Unavailable Agustina vailable Encounters Date Type Department Care Team Description 05/27/2024 9:15 AM CLASSIFIED AD CLERK Ancillary Procedure [facility] Cardiology [address] [place] [id number] PAF (paroxysmal atrial fibrillation) (CMS/HCC) (HCC) 05/02/2024 Orders Only [facility] Cardiology [address] [place] [phone] Emilio Leggett MD Paroxysmal atrial fibrillation (CMS/HCC) ([facility]) (Primary Dx); Status post placement of implantable loop recorder; Syncope, unspecified syncope type 04/15/2024 9:15 AM CLASSIFIED AD CLERK Ancillary Procedure [facility] Cardiology [address] [place] [phone] Status post placement of implantable loop recorder (Primary Dx); PAF (paroxysmal atrial fibrillation) (CMS/HCC) (HCC); Syncope and collapse 03/04/2024 9:00 AM CLASSIFIED AD CLERK Ancillary Procedure [facility] Cardiology [address] [place] [phone] Status post placement of implantable loop [...] implantable loop record er 08/09/2022 Overview (11/24/2023): Asc[employer] LNQ22 Loop Recorder. Dx; Syncope, Afib. DOI 08/08/2022-[facility]. Amulet placed 11/16/23 Falls [...] = 0.6 oz pur e alcohol) social [employer] Utilities Answer Date Recorded In the past 12 months has [employer], gas, oil, or water [employer] threatened to shut off services in your [...] any clubs o r organizations such as uatsdin groups, unions, fraternal or athletic groups, or [...] were you homeless or living in a intermediate (including now)? No 11/17/2023 Personal Safety Answer Date Recorded Have you ever been in or are you currently in a harmful physical or emotional relationship or is someone making you feel afraid or unsafe? Denies 02/08/2024 Comments No Sex and Gender Information Value Date Recorded Sex Assigned at Not on file Legal Sex Female 3:22 AM CLASSIFIED AD CLERK Gender Identity Not on file Sexual Orientation [...] March 2017 Medical Devices Implanted Type Area Aerial Advertiser Device Identifier Shelf Expiration Date Model / Serial / Lot Cage Cage Back Other Kit Stimulator Octrode L60 Cm Trial Lead Neurostimulator - [id number] Implanted:Qty: 1 on 05/03/2017 by Brice Eisenberg MD at [facility] [address] [employer] 3086 / / Kit Stimulator Octrode L60 Cm Trial Lead Neurostimulator - [id number] Implanted:Qty: 1 on 05/03/2017 by Brice Eisenberg MD at [facility] [address] [employer] 3086 / / Kit Neurostimulator Octrode L60 Cm Percutaneous 8 Electrode Lead - [id number] - [id number] Implanted:Qty: 1 on 06/22/2017 by Brice Eisenberg MD at [facility] N/A: Back [employer] 05/24/2019 [id number] / [id number] / Kit Neurostimulator Octrode L60 Cm Percutaneous 8 Electrode Lead - [id number] - [id number] Implanted:Qty: 1 on 06/22/2017 by Brice Eisenberg MD at [facility] N/A: Back [employer] 05/24/2019 [id number] / [id number] / [place] Lead Eduardo-Lock - [id number] Implanted:Qty: 2 on 06/22/2017 by Brice Eisenberg MD at [facility] N/A: Back [employer] 05/18/2019 1192 / / [id number] Generator Neurostimulator Proclaim Elite Thk13.4 Mm 5 In W49.5 Mm X H55.5 Mm Spinal Cord Implantable Pulse - [id number] - [id number] Implanted:Qty: 1 on 06/22/2017 by Brice Eisenberg MD at [facility] N/A: Back [employer] 05/02/2019 3660ANS / [id number] / [employer] Vascular System Closure Repair Femoral Artery Suture Mediated Perclose Prostyle 47530-47 - [id number] Implanted:Qty: 1 on 11/16/2023 by Emilio Leggett MD at [facility] [employer] 07/29/2025 1 2773- / / [id number] [employer] Vascular System Closure Repair Femoral Artery Suture Mediated Perclose Prostyle 81404-69 - [id number] Implanted:Qty: 1 on 11/16/2023 by Emilio Leggett MD at [facility] [employer] 07/29/2025 1 2773- / [id number] [employer] Vascular System Closure Repair Femoral Artery Suture Mediated Perclose Prostyle 74195-52 - [id number] Implanted:Qty: 1 on 11/16/2023 by Emilio Leggett MD at [facility] [employer] 07/29/2025 1 2773- / / [id number] [employer] V[employer] Percutaneous Transcatheter Amplatzer Amulet 22mm 7-Pga8-365-022 - [id number] Implanted:Qty: 1 on 11/16/2023 by Emilio Leggett MD at [facility] [employer] 11/29/2027 9 -ACP2-00 7-022 / / [id number] Procedures Procedure Name Priority Date/Time Associated Diagnosis Comments DEVICE CHECK - REMOTE Routine 05/02/2024 10:21 AM CLASSIFIED AD CLERK PAF (paroxysmal atrial fibrillation) (CMS/HCC) (HCC) DEVICE CHECK - REMOTE Routine 03/05/2024 11:24 AM CLASSIFIED AD CLERK PAF (paroxysmal atrial fibrillation) (CMS/HCC) (HCC) from Last 3 Months Results * DEVICE CHECK - REMOTE (05/02/2024 10:21 AM CLASSIFIED AD CLERK) Anatomical Region Laterality Modality Other Narrative 05/24/2024 10:29 AM CLASSIFIED AD CLERK [employer] LNQ22 Loop Recorder. Dx; Syncope, Afib. DOI 08/08/2022-[place]. [facility] remote monitoring. Routine ILR remote. Normal device function. Battery function-Good. Presenting rhythm: VS, regular 130 bpm. Medications: ??ASA 81 mg, Toprol-XL, Lipitor. Patient has a left atrial appendage occlusion device. Counters since last scheduled transmission on 02/26/2024. --48 Tachy egm's Afib with RVR. --0 Darren --0 Pause --0 Symptom --27 AF egm's Afib. AF [place] 2.3%. See scanned report. [facility] remote f/u 05/27/2024. Annie Lew RN Emilio Leggett MD CV CARDIAC SERVICES PROCEDURES F inal Result * DEVICE CHECK - REMOTE (03/05/2024 11:24 AM CLASSIFIED AD CLERK) Anatomical Region Laterality Modality Other Narrative 03/13/2024 8:08 AM CLASSIFIED AD CLERK Medtronic LNQ22 Loop Recorder. Dx; Syncope, Afib. DOI 08/08/2022-[place]. [facility] remote monitoring. 04/14/23-WAD note: Anticoagulation contraindication d/t frequent falls and h/o head injury. ILR interrogations for more definitive documentation of Afib [place] and justification for LAAO device implant. Routine [...] Last 3 Months Insurance [facility]IC[facility] Address: [address] [address] [place] [address] [facility]ICARE [facility] Address: [address] [place] [address] [facility] Address: [facility] [address] [place] [address] Care Teams Microchip Specialist Relationship Specialty Start Date End Date Gadiel Zavala MD [address] [address] PCP - General 06/13/16 Lyudmila Knox, RN Registered Nurse 04/14/17 Jennifer Escalona, RN Registered Nurse 05/10/17
--- OUTSIDE RECORDS SUMMARY | 2024-05-31 08:17 | XMS_ITS ---
Author Organization [facility] Address [address] [place] [address] Care Team Providers Care Supervisor Television Chassis Repair Name Role Phone Gadiel Zavala MD Primary Care Provider [phone] Lyudmila Knox RN Unavailable Unavailable Jennifer Escalona [...] treatments are documented [facility] in [facility]. Treatments may have been administered in another system. Lifetime Dose Tracking * Chemical Lifetime Dose Automatic Entry Manual Entr y Fluoro Time 2.32 minutes 2.32 minutes 0 minutes Air kerma at the reference point (Ka,r) 370 mGy 0 mGy 370 mGy
--- OUTSIDE RECORDS SUMMARY | 2024-05-31 08:18 | XMS_ITS | Clinical Summary ---
Author Organization [facility] Address [address] [place] [address] Care Team Providers Care Sewing Room Supervisor Name Role Phone Gadiel Zavala MD Primary Care Provider [phone] Lyudmila Knox RN Unavailable Unavailable Jennifer Escalona [...] Loop Recorder. Dx; Syncope, Afib. DOI 08/08/2022-Chris. [facility] remote monitoring. Amulet placed 11/16/23 Falls frequently [...] Department Care Team Description 05/27/2024 9:15 AM HUMAN RESOURCE INTERN Ancillary Procedure [facility] Cardiology [address] [place] [address] [place] [phone] PAF (paroxysmal atrial fibrillation) (CMS/HCC) ([facility]) 05/02/2024 Orders Only [facility] Cardiology [address] [place] [phone] Emilio Leggett MD Paroxysmal atrial fibrillation (CMS/HCC) ([facility]) (Primary Dx); Status post placement of implantable loop recorder; Syncope, unspecified syncope type 04/15/2024 9:15 AM HUMAN RESOURCE INTERN Ancillary Procedure [facility] Cardiology [address] [facility] [address] [place] [phone] Status post placement of implantable loop recorder (Primary Dx); PAF (paroxysmal atrial fibrillation) (CMS/HCC) (HCC); Syncope and collapse 03/04/2024 9:00 AM HUMAN RESOURCE INTERN Ancillary Procedure [facility] Cardiology [address] [place] [phone] Status post placement of implantable loop [...] = 0.6 oz pur e alcohol) social [email or web address] Utilities Answer Date Recorded In the past 12 months has [email or web address] gas, oil, or water [employer] threatened to shut off services in your [...] week 11/17/2023 How often do you attend [facility] or congregation services? Never 11/17/2023 Do you belong to any clubs o r organizations such as mu-ism groups, unions, [employer]Frame or athletic groups, or school groups? No [...] were you homeless or living in a jail (including now)? No 11/17/2023 Personal Safety Answer Date Recorded Have you ever been in or are you currently in a harmful physical or emotional relationship or is someone making you feel afraid or unsafe? Denies 02/08/2024 Comments No Sex and Gender Information Value Date Recorded Sex Assigned at Not on file Legal Sex Female 3:22 AM HUMAN RESOURCE INTERN Gender Identity Not on file Sexual Orientation [...] March 2017 Medical Devices Implanted Type Area Dining Car Steward Device Identifier Shelf Expiration Date Model / Serial / Lot Cage Cage Back Other Kit Stimulator Octrode L60 Cm Trial Lead Neurostimulator - [id number] Implanted:Qty: 1 on 05/03/2017 by Brice Eisenberg MD at [facility] [address] [employer] 3086 / / Kit Stimulator Octrode L60 Cm Trial Lead Neurostimulator - [id number] Implanted:Qty: 1 on 05/03/2017 by Brice Eisenberg MD at [facility] [address] [employer] 3086 / / Kit Neurostimulator Octrode L60 Cm Percutaneous 8 Electrode Lead - [id number] - [id number] Implanted:Qty: 1 on 06/22/2017 by Brice Eisenberg MD at [facility] N/A: Back [employer] 05/24/2019 [id number] / [id number] / Kit Neurostimulator Octrode L60 Cm Percutaneous 8 Electrode Lead - [id number] - [id number] Implanted:Qty: 1 on 06/22/2017 by Brice Eisenberg MD at [facility] N/A: Back [employer] 05/24/2019 [id number] / [id number] / [place] Lead Eduardo-Lock - [id number] Implanted:Qty: 2 on 06/22/2017 by Brice Eisenberg MD at [facility] N/A: Back [employer] 05/18/2019 1192 / / [id number] Generator Neurostimulator Proclaim Elite Thk13.4 Mm 5 In W49.5 Mm X H55.5 Mm Spinal Cord Implantable Pulse - [id number] - [id number] Implanted:Qty: 1 on 06/22/2017 by Brice Eisenberg MD at [facility] N/A: Back [employer] 05/02/2019 3660ANS / [id number] / Brasher Vascular System Closure Repair Femoral Artery Suture Mediated Perclose Prostyle 02812-40 - [id number] Implanted:Qty: 1 on 11/16/2023 by Emilio Leggett MD at [facility] [employer] 07/29/2025 1 2773-03 / / [id number] Brasher Vascular System Closure Repair Femoral Artery Suture Mediated Perclose Prostyle 29939-64 - [id number] Implanted:Qty: 1 on 11/16/2023 by Emilio Leggett MD at [facility] 07/29/2025 1 27707-01 [id number] [place] Vascular System Closure Repair Femoral Artery Suture Mediated Perclose Prostyle 79756-95 - [id number] Implanted:Qty: 1 on 11/16/2023 by Emilio Leggett MD at [facility] 07/29/2025 1 2772-06 [id number] [employer] V[employer] Percutaneous Transcatheter Amplatzer Amulet 22mm 0-Vuo3-831-022 - [id number] Implanted:Qty: 1 on 11/16/2023 by Emilio Leggett MD at [facility] 11/29/2027 9 -ACP2-00 7-022 / / [id number] Procedures Procedure Name Priority Date/Time Associated Diagnosis Comments DEVICE CHECK - REMOTE Routine 05/02/2024 10:21 AM HUMAN RESOURCE INTERN PAF (paroxysmal atrial fibrillation) (CMS/HCC) (HCC) DEVICE CHECK - REMOTE Routine 03/05/2024 11:24 AM HUMAN RESOURCE INTERN PAF (paroxysmal atrial fibrillation) (CMS/HCC) (HCC) from Last 3 Months Results * DEVICE CHECK - REMOTE (05/02/2024 10:21 AM HUMAN RESOURCE INTERN) Anatomical Region Laterality Modality Other Narrative 05/24/2024 10:29 AM HUMAN RESOURCE INTERN [employer] LNQ22 Loop Recorder. Dx; Syncope, Afib. DOI 08/08/2022-[place]. [facility] remote monitoring. Routine ILR remote. Normal device function. Battery function-Good. Presenting rhythm: VS, regular 130 bpm. Medications: ??ASA 81 mg, Toprol-XL, Lipitor. Patient has a left atrial appendage occlusion device. Counters since last scheduled transmission on 02/26/2024. --48 Tachy egm's Afib with RVR. --0 Darren --0 Pause --0 Symptom --27 AF egm's Afib. AF [place] 2.3%. See scanned report. [facility] remote f/u 05/27/2024. Annie Lew, LOGAN Emilio Leggett MD CV CARDIAC SERVICES PROCEDURES F inal Result * DEVICE CHECK - REMOTE (03/05/2024 11:24 AM HUMAN RESOURCE INTERN) Anatomical Region Laterality Modality Other Narrative 03/13/2024 8:08 AM HUMAN RESOURCE INTERN [employer] LNQ22 Loop Recorder. Dx; Syncope, Afib. DOI 08/08/2022-[place]. [facility] remote monitoring. 04/14/23-WAD note: Anticoagulation contraindication d/t frequent falls and h/o head injury. ILR interrogations for more definitive documentation of Afib [place] and justification for LAAO device implant. Routine [...] SOLUTIONS MEDICARE SOLUTIONS MEDICARE SOLUTIONS Care Teams Sewing Room Supervisor Relationship Specialty Start Date End Date Gadiel Zavala MD [address] [address] PCP - General 06/13/16 Lyudmila Knox, RN Registered Nurse 04/14/17 Jennifer Escalona, RN Registered Nurse 05/10/17
--- OUTSIDE RECORDS SUMMARY | 2024-05-31 08:18 | XMS_ITS | Patient Health Summary ---
Author Organization [facility] Address [address] [place] [address] Care Team Providers Care Actuarial Director Name Role Phone Gadiel Zavala MD Primary Care Provider [phone] Note from [facility],non-owned Affiliates and Associated Physician Practices is amultiple site organization consisting of ambulatory clinics and hospital sitesin [place], [place], [place] and [place]. This disclosure is being madepursuant to the Care Everywhere program and may not contain all information available regarding this patient. Last updated 18.[facility] Allergies * Adhesive Sensitivity(Rash) -Medium [...] 6 hours as needed for Pain * krsyxplt-hjhrveyhl-ravbuhcz (Maxitrol) ophthalmic suspension(Started 02/01/2022) Instill 1 (one) [...] CDT) Case Report Dermatopathology Report ? Case: [id number] ? Authorizing Provider: ??Angie Fortune, ?? Collected: ? 08/05/2020 03:33 AM ? Ordering Location: ? [facility] DermPath Lab ?Received: ?08/06/2020 07:28 AM [...] NMSC. B: LENT R/O atypia. 4:26 PM [facility] DERMATOPATHOLOGY LABORATORY Gross Description Specimen A: Received is one formalin filled container labeled with the patient's name and designated left abdomen. The specimen consists of a shave measuring 81f6f2bo. Jar 0. Specimen B: Received is one formalin filled container labeled with the patient's name and designated right inner upper arm. The specimen consists of a shave measuring 16f2d9bo. Jar 0. 4:26 PM T DERMATOPATHOLOGY LABORATORY [...] Dr. Danielle Montenegro, who agrees. 4:26 PM [facility] DERMATOPATHOLOGY LABORATORY Disclaimer An external and internal positive and negative controls are appropriate for the histochemical, immunohistochemical and immunofluorescence stain(s) in this case (if any), except where stated explicitly. The performance characteristics of the stain(s) cited in this report were developed and its performance characteristic determined by the Dermatopathology Laboratory at [facility], directed by Dr. Luis Montenegro. These tests need not be, and therefore are not, approved by the [place] Food and Drug Administration. The tests are used for clinical purposes. Billing Codes Specimen Charges Stain Charges 93105 40388 1 1 99453 1 4:26 PM CDT DERMATOPATHOLOGY LABORATORY Embedded Images 4:26 PM T DERMATOPATHOLOGY LABORATORY Pathology/Cytology TISSUE SPECIMEN FROM SKIN / Unknown 08/05/2020 3:33 AM CDT 08/06/2020 7:28 AM CDT Miscellaneous samples (specimen) TISSUE SPECIMEN FROM SKIN / Unknown 08/05/2020 3:33 AM CDT 08/06/2020 7:28 AM CDT Angie Fortune DO LAB - PATHOLOGY/C YTOLOGY ORDERABLES DERMATOPATHOLOGY LABORATORY [facility] - Department of Dermatology [facility] [address] [place] [address], [address] [phone] Care Teams Actuarial Director Relationship Specialty Start Date End Date Gadiel Zavala MD [address] [facility] [address] [address] PCP - General 02/15/21
--- OUTSIDE RECORDS SUMMARY | 2024-05-31 08:18 | XMS_ITS | Referral Summary ---
Author Organization [facility] Address [address] [facility] [place] [address] Care Team Providers Care Promotions Manager Name Role Phone Gadiel Zavala MD Primary Care Provider [phone] Source Comments [facility],non-owned Affiliates and Associated Physician Practices is amultiple site organization consisting of ambulatory clinics and hospital sitesin [place], [place] and [place]. This disclosure is being madepursuant to the Care Everywhere program and may not contain all information available regarding this patient. Last updated 18.[facility] Allergies Active Allergy Reactions Criticality Noted Date [...] of Treatment Not on file Care Teams Promotions Manager Relationship Specialty Start Date End Date Gadiel Zavala MD [address] [place] [address] PCP - General 02/15/21
--- OUTSIDE RECORDS SUMMARY | 2024-05-31 08:18 | XMS_ITS | Continuity of Care Document ---
Author Organization [facility] Address [address] [facility] [address] [place] [address] Phone Care Team Providers Care Machine Edge Bander Name Role Phone Jorge Cevallos Unavailable Unavailable Procedures Procedure Date No Charge Glasses Check Office/outpatient Visit, Est Refraction Eye Exam & Treatment Refraction Advance Directives Directive Yes / No Effective Date File Name No Information Encounters Encounter Description Practice Location Reason(s) For Visit Diagnoses Date Provider Providers Copied on Encounter [facility], [address] [place] [address] [address], [place], [place], [id number], tel:[phone] [facility] No Information 0 Ban Patel. [address] [facility] , [address], [place], [place], [facility], [place]. tel:[phone] Office/outpat ient Visit, Est [facility], [address] [place] [address] [address], [place], [place], [id number], [place] tel:[phone] [facility] No Information [address] Ban Patel. [address] [facility] , [address], [place], [address], [place]. tel:[phone] [facility], [address] [place] [address] [address], [place], [place], [id number], tel:[phone] [facility] No Information [address] Ban Patel. [address] [facility] , [address], [place], [address], [place]. tel:[phone] Family History Family Member Type Diagnosis Age At Onset No Information Payers Payer name Insurance type Covered alliance party ID Authoriza tion(s) No Information Social [...]
--- OUTSIDE RECORDS SUMMARY | 2024-05-31 08:18 | XMS_ITS | Clinical Summary ---
Author Organization [facility] [employer] Address [address] [facility] [place] [address] Care Team Providers Care Stamp Clerk Name Role Phone Gadiel Zavala MD Primary Care Provider [phone] Source Comments [facility],non-owned Affiliates and Associated Physician Practices is amultiple site organization consisting of ambulatory clinics and hospital sitesin [place], [place], [place] and [place]. This disclosure is being madepursuant to the Care Everywhere program and may not contain all information available regarding this patient. Last updated 18.[facility] Allergies Active Allergy Reactions Criticality Noted Date [...] age to complete this topic Care Teams Stamp Clerk Relationship Specialty Start Date End Date Gadiel Zavala MD [address] [place] [address] PCP - General 02/15/21
--- OUTSIDE RECORDS SUMMARY | 2024-05-31 08:18 | XMS_ITS | Clinical Summary ---
Author Organization [facility] Address [address] [place] [address] Phone Care Team Providers Care Chemical Dependency Therapist Name Role Phone Gadiel Zavala MD Primary Care Provider [phone] Allergies Active Allergy Reactions Criticality Noted Date [...] tablet Take 50 mcg by mouth daily academic registrar. Active atorvastatin (LIPITOR) 20 mg tablet Take [...] mouth daily. Active naloxone (NARCAN) 4 mg/spray Evans, Non-Aerosol EMERGENCY USE ONLY: Administer 1 spray [...] Comments Blood Pressure 122/80 06/14/2022 10:12 AM SHIPPING AGENT Pulse 57 06/14/2022 10:12 AM SHIPPING AGENT Temperature 36.7 ??C (98.1 ??F) 02/05/2021 5:04 PM CD T Respiratory Rate 16 02/05/2021 5:04 PM CDT Oxygen Saturation 99% 02/05/2021 5:04 PM CDT Inhaled Oxygen Concentration - - Weight 57.4 kg (126 lb 8 oz) 06/14/2022 10:12 AM SHIPPING AGENT Height 152.4 cm (5') 06/14/2022 10:12 AM SHIPPING AGENT Body Mass Index 24.71 06/14/2022 10:12 AM SHIPPING AGENT Plan of Treatment Health Maintenance Due Date [...] 01/26/2021, 2016 Medical Devices Implanted Type Area Nylon Mender Device Identifier Shelf Expiration Date Model / Serial / Lot Spacer Bio Avs C-Plg 6mm 4d [id number] - [id number] Implanted:Qt y: 1 on 02/16/2017 by Mylene Gutierrez MD at [facility] Biological N/A: Spine Cervical Anterior SEN- SPINE 09/12/2020 [id number] / [id number] / Description:All [place] spac er plugs and other spinal hardware was processed on requisition,[id number] Plate Aviator 1lvl 12mm [id number] - [id number] Implanted:Qt y: 1 on 02/16/2017 by Mylene Gutierrez MD at [facility] Plate N/A: Spine Cervical Anterior SEN- SPINE [id number] / STERILIZED 02/16/2017 / [id number] Screw [address]tr [address] 4.0x14mm [id number] - [id number] Implanted:Qt y: 4 on 02/16/2017 by Mylene Gutierrez MD at [facility] Screw N/A: Spine Cervical Anterior SEN- SPINE [id number] / STERILIZED 02/16/2017 / [id number] Sealant Floseal 10ml [id number] - [id number] Implanted:Qt y: 1 on 02/16/2017 by Mylene Gutierrez MD at [facility] Sealant N/A: Spine Cervical Anterior CHERRY- BIOSCIENCE [id number] 03/16/2018 [id number] / / [id number] Cages In Back Explanted Type Area Nylon Mender Device Identifier Shelf Expiration Date Model / Serial / Lot Spinal Cord Generator And Leads Explanted:Qty: 1 on 11/16/2017 by Mylene Gutierrez MD at [facility] Lead N/A: Back Insurance Advance Directives For more information, please contact: [phone] * Full Code (Latest Code Status on [...] 12:48 PM 11/16/2017 12:50 PM Care Teams Chemical Dependency Therapist Relationship Specialty Start Date End Date Gadiel Zavala MD [address] [place] [address] PCP - General Family Practice 03/03/17
--- OUTSIDE RECORDS SUMMARY | 2024-05-31 08:18 | XMS_ITS | Clinical Summary ---
Author Organization [facility] Address [address] [place] [address] Phone Care Team Providers Care Engine Emission Technician Name Role Phone Gadiel Zavala MD Primary Care Provider [phone] Active Problems Problem Noted Date Diagnosed Date [...] topic Insurance MEDICARE C AETNA Care Teams Engine Emission Technician Relationship Specialty Start Date End Date Gadiel Zavala MD [address] [address] PCP - General Family Medicine 02/09/17
[2024-05-31 09:15] VITALS: BP 125/82; PULSE 56; RESP 20; O2SAT 100
[2024-05-31 10:00] VITALS: BP 131/73; PULSE 66; RESP 20; O2SAT 100
== END 2024-05-31 10:34 | disposition home or self-care (01) ==
PROVIDERS: Emergency Provider Emergency Medicine; PCP Family Medicine
DX: S01.81XA Laceration without foreign body of other part of head, initial encounter (principal); W22.03XA Walked into furniture, initial encounter; I48.0 Paroxysmal atrial fibrillation; E53.8 Deficiency of other specified B group vitamins; Z85.038 Personal history of other malignant neoplasm of large intestine; I10 Essential (primary) hypertension; E55.9 Vitamin D deficiency, unspecified; E78.2 Mixed hyperlipidemia; E03.9 Hypothyroidism, unspecified; K21.9 Gastro-esophageal reflux disease without esophagitis; Z87.891 Personal history of nicotine dependence
CPT/HCPCS: 12002; 70450; 72125; 73080; 99284; J2003

== ENCOUNTER 2024-06-14 09:25 | Outpatient (CLI) | payer MEDICARE, SELFPAY ==
--- NOTE | ~2024-06-14 | MM_ITS ---
EXAMINATION: MM screening germain BI w katie HISTORY: Screening TECHNIQUE: Craniocaudal and mediolateral oblique 3-D tomosynthesis images were obtained and synthetic 2-D images were generated. CAD analysis was submitted and interpreted. COMPARISON: Comparison to multiple prior studies sequentially, with oldest reviewed study dated 08/26. BREAST PARENCHYMAL COMPOSITION: Not Dense: The breasts are almost entirely fatty. FINDINGS: There is a mass in the lower aspect of the right breast posteriorly on MLO view which is in creased in density compared with prior examination. There are no suspicious calcifications or archite ctural distortion. Stable mass in the periareolar location of the left breast compared with prior sarah dies, benign. IMPRESSION: 1. Increasing density of right breast mass located in the lower inner quadrants of the breast, manager branch ior third. This is seen on MLO view only. 2. Additional mammographic views and possible breast ultrasound are recommended. BI-RADS Category 0: Incomplete: Needs additional imaging evaluation. Reviewed, dictated and finalized at location B. E FEEDER IMPRESSION: 1. Increasing density of right breast mass located in the lower inner quadrants of the breast, posterior third. This is seen on MLO view only. 2. Additional mammographic views and possible breast ultrasound are recommended . BI-RADS Category 0: Incomplete: Needs additional imaging evaluation.
--- OUTSIDE RECORDS SUMMARY | 2024-06-14 09:31 | XMS_ITS | Clinical Summary ---
Author Organization [facility] Address [address] [place] [address] Care Team Providers Care Pupil Personnel Worker Name Role Phone Gadiel Zavala MD Primary Care Provider [phone] Source Comments [facility],non-owned Affiliates and Associated Physician Practices is amultiple site organization consisting of ambulatory clinics and hospital sitesin [place], [place], [place] and [place]. This disclosure is being madepursuant to the Care Everywhere program and may not contain all information available regarding this patient. Last updated 18.[facility] Allergies Active Allergy Reactions Criticality Noted Date Comments Adhesive Sensitivity Rash Medium 02/14/2017 Reaction: RASH Gadopentetate Dimeglumine Urticaria,Other High 02/28 Reaction: Hives, Green Dye Other,Unknown Medium 04/14/2017 Was getting MRI and developed hives while dye infusion. Was getting MRI and developed hives while dye infusion. Latex Other Low 10/31/2017 Pt states no. Is fine with gloves. Only allergy is to adhesive. Pt states no. Is fine with gloves. [...] 65 02/01/2022 3:20 PM CDT Temperature 36.3 C (97.3 F) 02/01/2022 2:38 PM CDT Respiratory Rate 11 02/01/2022 3:20 PM CDT [...] 2023 03/01/2017 DEPRESSION SCREENING 05/01/2024 MEDICARE AWV CALENDAR YEAR 2024 HEPATITIS B VACCINE Aged [...] age to complete this topic Care Teams Pupil Personnel Worker Relationship Specialty Start Date End Date Gadiel Zavala MD [address] [place] [address] PCP - General 02/15/21
--- OUTSIDE RECORDS SUMMARY | 2024-06-14 09:31 | XMS_ITS | Clinical Summary ---
Author Organization [facility] Address [address] [place] [address] Phone Care Team Providers Care Leaded Glass Installer Name Role Phone Gadiel Zavala MD [...] topic Insurance MEDICARE C AETNA Care Teams Leaded Glass Installer Relationship Specialty Start Date End Date Gadiel Zavala MD [address] [address] PCP - General Family Medicine 02/09/17
--- OUTSIDE RECORDS SUMMARY | 2024-06-14 09:31 | XMS_ITS | Referral Summary ---
Author Organization [facility] Address [address] [facility] [place] [address] Care Team Providers Care Cord Maker Name Role Phone Gadiel Zavala MD Primary Care Provider [phone] Source Comments [facility],non-owned Affiliates and Associated Physician Practices is amultiple site organization consisting of ambulatory clinics and hospital sitesin [place], [place], [place]. This disclosure is being madepursuant to the Care Everywhere program and may not contain all information available regarding this patient. Last updated 18.[facility] Allergies Active Allergy Reactions Criticality Noted Date [...] of Treatment Not on file Care Teams Cord Maker Relationship Specialty Start Date End Date Gadiel Zavala MD [address] [place] [address] PCP - General 02/15/21
--- OUTSIDE RECORDS SUMMARY | 2024-06-14 09:31 | XMS_ITS ---
Author Organization [facility] Address [address] [place] [address] Care Team Providers Care Head Up Operator Name Role Phone Gadiel Zavala MD Primary Care Provider [phone] Lyudmila Knox RN Unavailable Unavailable Jennifer Escalona [...] treatments are documented for this patient in [facility]. Treatments may have been administered in another system. Lifetime Dose Tracking * Chemical Lifetime Dose Automatic Entry Manual Entr y Fluoro Time 2.32 minutes 2.32 minutes 0 minutes Air kerma at the reference point (Ka,r) 370 mGy 0 mGy 370 mGy
--- OUTSIDE RECORDS SUMMARY | 2024-06-14 09:31 | XMS_ITS | Referral Summary ---
Author Organization [facility] Address [address] [place] [address] Care Team Providers Care Relay Repairer Name Role Phone Gadiel Zavala MD Primary Care Provider [phone] Lyudmila Knox RN Unavailable Unavailable Jennifer Escalona RN Unavailable Agustina vailable Encounters Date Type Department Care Team Description 05/27/2024 9:15 AM MORTARMAN Ancillary Procedure [facility] Cardiology [address] [place] [phone] Status post placement of implantable loop recorder (Primary Dx); PAF (paroxysmal atrial fibrillation) ([facility]/HCC) ([facility]); Syncope and collapse 05/02/2024 Orders Only [facility] Cardiology [address] [place] [phone] Emilio Leggett MD Paroxysmal atrial fibrillation (CMS/HCC) ([facility]) (Primary Dx); Status post placement of implantable loop recorder; Syncope, unspecified syncope type 04/15/2024 9:15 AM MORTARMAN Ancillary Procedure [facility] Cardiology [address] [place] [phone] Status post placement of implantable loop [...] implantable loop record er 08/09/2022 Overview (11/24/2023): Pushertronic LNQ22 Loop Recorder. Dx; Syncope, Afib. DOI 08/08/2022-[place]. [place] remote monitoring. Amulet placed 11/16/23 Falls frequently [...] often do you attend chur ch or lutheran services? Never 11/17/2023 Do you belong to any clubs o r organizations such as druze groups, unions, fraternal or athletic groups, or [...] time in the past [address] [facility], were you homeless or living in a penitentiary (including now)? No 11/17/2023 Personal Safety Answer Date Recorded Have you ever been in or are you currently in a harmful physical or emotional relationship or is someone making you feel afraid or unsafe? Denies 02/08/2024 Comments No Sex and Gender Information Value Date Recorded Sex Assigned at Not on file Legal Sex Female 3:22 AM MORTARMAN Gender Identity Not on file Sexual Orientation Not on file Last Filed Vital Signs Vital Sign Reading Time Taken Comments Blood Pressure 143/76 02/08/2024 12:25 PM CDT Pulse 68 02/08/2024 12:25 PM CDT Temperature 36.5 C (97.7 F) 02/08/2024 9:52 AM CDT Respiratory Rate 17 02/08/2024 9:52 AM CDT [...] March 2017 Medical Devices Implanted Type Area Tax Accounting Assistant Device Identifier Shelf Expiration Date Model / Serial / Lot Cage Cage Back Other Kit Stimulator Octrode L60 Cm Trial Lead Neurostimulator - [id number] Implanted:Qty: 1 on 05/03/2017 by Brice Eisenberg MD at [facility] [address] [employer] 3086 / / Kit Stimulator Octrode L60 Cm Trial Lead Neurostimulator - [id number] Implanted:Qty: 1 on 05/03/2017 by Brice Eisenberg MD at [facility] [address] [employer] 3086 / / Kit Neurostimulator Octrode L60 Cm Percutaneous 8 Electrode Lead - [id number] - [id number] Implanted:Qty: 1 on 06/22/2017 by Brice Eisenberg MD at [facility] N/A: Back [employer] 05/24/2019 [id number] / [id number] / Kit Neurostimulator Octrode L60 Cm Percutaneous 8 Electrode Lead - [id number] - [id number] Implanted:Qty: 1 on 06/22/2017 by Brice Eisenberg MD at [facility] N/A: Back [employer] 05/24/2019 [id number] / [id number] / [place]ott Lead Eduardo-Lock - [id number] Implanted:Qty: 2 on 06/22/2017 by Brice Eisenberg MD at [facility] N/A: Back [employer] 05/18/2019 1192 / / [id number] Generator Neurostimulator Proclaim Elite Thk13.4 Mm 5 In W49.5 Mm X H55.5 Mm Spinal Cord Implantable Pulse - [id number] - [id number] Implanted:Qty: 1 on 06/22/2017 by Brice Eisenberg MD at [facility] N/A: Back [employer] 05/02/2019 [id number] / [id number] / [employer] System Closure Repair Femoral Artery Suture Mediated Perclose Prostyle 69242-75 - [id number] Implanted:Qty: 1 on 11/16/2023 by Emilio Leggett MD at [facility] [employer] 07/29/2025 1 277- / [id number] [employer] System Closure Repair Femoral Artery Suture Mediated Perclose Prostyle 31665-62 - [id number] Implanted:Qty: 1 on 11/16/2023 by Emilio Leggett MD at [facility] 07/29/2025 1 277- [id number] [employer] System Closure Repair Femoral Artery Suture Mediated Perclose Prostyle 49971-18 - [id number] Implanted:Qty: 1 on 11/16/2023 by Emilio Leggett MD at [facility] 07/29/2025 1 [id number] [place] [employer] Percutaneous Transcatheter Amplatzer Amulet 22mm [id number] - [id number] Implanted:Qty: 1 on 11/16/2023 by Emilio Leggett MD at [facility] 11/29/2027 9 -[id number] 7-022 / / [id number] Procedures Procedure Name Priority Date/Time Associated Diagnosis Comments DEVICE CHECK - REMOTE Routine 05/29/2024 7:20 AM MORTARMAN PAF (paroxysmal atrial fibrillation) (CMS/HCC) (HCC) DEVICE CHECK - REMOTE Routine 05/02/2024 10:21 AM MORTARMAN PAF (paroxysmal atrial fibrillation) (CMS/HCC) (HCC) from Last 3 Months Results * DEVICE CHECK - REMOTE (05/29/2024 7:20 AM MORTARMAN) Anatomical Region Laterality Modality Other Narrative 06/14/2024 9:16 AM MORTARMAN Medtronic LNQ22 Loop Recorder. Dx; Syncope, Afib. DOI 08/08/2022-[place]. [facility] remote monitoring. Routine ILR remote. Normal device function. Battery function-Good. Presenting rhythm: VS, regular 60 bpm. Medications: ASA 81 mg, Toprol-XL, Lipitor. Patient has a left atrial appendage occlusion device. Counters since last scheduled transmission on 04/15/2024. --32 Tachy egm's Afib with RVR, couplets, and triplets. --0 Darren --0 Pause --0 Symptom --9 AF egm's Afib. AF [employer] 1.9%. See scanned report. Carelink remote f/u 07/08/2024. Annie Lew RN Emilio Leggett MD [facility] PROCEDURES F inal Result * DEVICE CHECK - REMOTE (05/02/2024 10:21 AM MORTARMAN) Anatomical Region Laterality Modality Other Narrative 05/24/2024 10:29 AM MORTARMAN [employer] LNQ22 Loop Recorder. Dx; Syncope, Afib. DOI 08/08/2022-[place]. Carelink remote monitoring. Routine ILR remote. Normal device function. Battery function-Good. Presenting rhythm: VS, regular 130 bpm. Medications: ASA 81 mg, Toprol-XL, Lipitor. Patient has a left atrial appendage occlusion device. Counters since last scheduled transmission on 02/26/2024. --48 Tachy egm's Afib with RVR. --0 Darren --0 Pause --0 Symptom --27 AF egm's Afib. AF [employer] 2.3%. See scanned report. [facility]link remote f/u 05/27/2024. Annie Lew RN Emilio Leggett MD [facility] C[facility] SERVICES PROCEDURES F inal Result from Last 3 Months Insurance MEDICARE SOLUTIONS MEDICARE SOLUTIONS MEDICARE SOLUTIONS Care Teams Relay Repairer Relationship Specialty Start Date End Date Gadiel Zavala MD [address] [address] PCP - General 06/13/16 Lyudmila Knox, RN Registered Nurse 04/14/17 Jennifer Escalona, RN Registered Nurse 05/10/17
--- OUTSIDE RECORDS SUMMARY | 2024-06-14 09:31 | XMS_ITS | Continuity of Care Document ---
Author Organization [facility] Address [address] [place] [address] Phone Care Team Providers Care News Department Intern Name Role Phone Jorge Cevallos Unavailable Unavailable Procedures Procedure Date No Charge Glasses Check Office/outpatient Visit, Est Refraction Eye Exam & Treatment Refraction Advance Directives Directive Yes / No Effective Date File Name No Information Encounters Encounter Description Practice Location Reason(s) For Visit Diagnoses Date Provider Providers Copied on Encounter [facility], [address] [place] [address] [address], [place], [place], [id number], tel:[phone] [facility] No Information 0 Ban Patel. [address] , [address], [place], [place], [facility], [place]. tel:[phone] Office/outpat ient Visit, Est [facility], [address] [place] [address] [address], [place], [place], [id number], [place] tel:[phone] [facility] No Information [address] Ban Patel. [address] , [address], [place], [address], [place]. tel:[phone] [facility], [address] [place] [address] [address], [place], [place], [id number], tel:[phone] [facility] No Information [address] Ban Patel. [address] , [address], [place], [address], [place]. tel:[phone] Family History Family Member Type Diagnosis Age At Onset No Information Payers Payer name Insurance type Covered democrat ID Authoriza tion(s) No Information Social History [...]
--- OUTSIDE RECORDS SUMMARY | 2024-06-14 09:31 | XMS_ITS | Clinical Summary ---
Author Organization [facility] Address [address] [place] [address] Care Team Providers Care Personalized Living Manager Name Role Phone Gadiel Zavala MD Primary Care Provider [phone] Lyudmila Knox RN Unavailable Unavailable Jennifer Escalona [...] Loop Recorder. Dx; Syncope, Afib. DOI 08/08/2022-Chris. [facility] remote monitoring. Amulet placed 11/16/23 Falls frequently [...] Department Care Team Description 05/27/2024 9:15 AM SPRING SALVAGE WORKER Ancillary Procedure [facility] Cardiology [address] [place] [id number] Status post placement of implantable loop recorder (Primary Dx); PAF (paroxysmal atrial fibrillation) (CMS/HCC) (FORMERLY [facility]); Syncope and collapse 05/02/2024 Orders Only [facility] Cardiology [address] [place] [phone] Emilio Leggett MD Paroxysmal atrial fibrillation (CMS/HCC) (FORMER[facility]) (Primary Dx); Status post placement of implantable loop recorder; Syncope, unspecified syncope type 04/15/2024 9:15 AM SPRING SALVAGE WORKER Ancillary Procedure [facility] Cardiology [address] [phone] Status post placement of implantable loop [...] = 0.6 oz pur e alcohol) social [employer] Answer Date Recorded In the past [...] often do you attend chur ch or evangelical services? Never 11/17/2023 Do you belong to any clubs o r organizations such as adventist groups, unions, fraternal or athletic groups, or [...] were you homeless or living in a custodial (including now)? No 11/17/2023 Personal Safety Answer Date Recorded Have you ever been in or are you currently in a harmful physical or emotional relationship or is someone making you feel afraid or unsafe? Denies 02/08/2024 Comments No Sex and Gender Information Value Date Recorded Sex Assigned at Not on file Legal Sex Female 3:22 AM SPRING SALVAGE WORKER Gender Identity Not on file Sexual [...] March 2017 Medical Devices Implanted Type Area Director Of Social Work Device Identifier Shelf Expiration Date Model / Serial / Lot Cage Cage Back Other Kit Stimulator Octrode L60 Cm Trial Lead Neurostimulator - [id number] Implanted:Qty: 1 on 05/03/2017 by Brice Eisenberg MD at [facility] Physician Office Building [address] [facility] [employer] 3086 / / Kit Stimulator Octrode L60 Cm Trial Lead Neurostimulator - [id number] Implanted:Qty: 1 on 05/03/2017 by Brice Eisenberg MD at [facility] Building [address] [employer] 3086 / / Kit Neurostimulator Octrode L60 Cm Percutaneous 8 Electrode Lead - [id number] - [id number] Implanted:Qty: 1 on 06/22/2017 by Brice Eisenberg MD at [facility] N/A: Back [employer] 05/24/2019 [id number] / [id number] / Kit Neurostimulator Octrode L60 Cm Percutaneous 8 Electrode Lead - [id number] - [id number] Implanted:Qty: 1 on 06/22/2017 by Brice Eisenberg MD at [facility] N/A: Back [employer] 05/24/2019 [id number] / [id number] / Bailey Lead Eduardo-Lock - [id number] Implanted:Qty: 2 on 06/22/2017 by Brice Eisenberg MD at [facility] N/A: Back [employer] 05/18/2019 1192 / / [id number] Generator Neurostimulator Proclaim Elite Thk13.4 Mm 5 In W49.5 Mm X H55.5 Mm Spinal Cord Implantable Pulse - [id number] - [id number] Implanted:Qty: 1 on 06/22/2017 by Brice Eisenberg MD at [facility] N/A: Back [employer] 05/02/2019 [id number] / [id number] / [employer] Closure Repair Femoral Artery Suture Mediated Perclose Prostyle 88372-09 - [id number] Implanted:Qty: 1 on 11/16/2023 by Emilio Leggett MD at [facility] [employer] 07/29/2025 1 [id number] [employer] System Closure Repair Femoral Artery Suture Mediated Perclose Prostyle 05008-12 - [id number] Implanted:Qty: 1 on 11/16/2023 by Emilio Leggett MD at [facility] [employer] 07/29/2025 1 [id number] [employer] System Closure Repair Femoral Artery Suture Mediated Perclose Prostyle 12246-13 - [id number] Implanted:Qty: 1 on 11/16/2023 by Emilio Leggett MD at [facility] Vascular 07/29/2025 1 2773-03 / / [id number] [employer] Percutaneous Transcatheter Amplatzer Amulet 22mm 7-[id number] - [id number] Implanted:Qty: 1 on 11/16/2023 by Emilio Leggett MD at [facility] Vascular 11/29/2027 9 -ACP2-00 7-022 / [id number] Procedures Procedure Name Priority Date/Time Associated Diagnosis Comments DEVICE CHECK - REMOTE Routine 05/29/2024 7:20 AM SPRING SALVAGE WORKER PAF (paroxysmal atrial fibrillation) (CMS/HCC) (HCC) DEVICE CHECK - REMOTE Routine 05/02/2024 10:21 AM SPRING SALVAGE WORKER PAF (paroxysmal atrial fibrillation) (CMS/HCC) (HCC) from Last 3 Months Results * DEVICE CHECK - REMOTE (05/29/2024 7:20 AM SPRING SALVAGE WORKER) Anatomical Region Laterality Modality Other Narrative 06/14/2024 9:16 AM SPRING SALVAGE WORKER Ovonyx LNQ22 Loop Recorder. Dx; Syncope, Afib. DOI 08/08/2022-[place]. [facility] remote monitoring. Routine ILR remote. Normal device function. Battery function-Good. Presenting rhythm: VS, regular 60 bpm. Medications: ASA 81 mg, Toprol-XL, Lipitor. Patient has a left atrial appendage occlusion device. Counters since last scheduled transmission on 04/15/2024. --32 Tachy egm's Afib with RVR, couplets, and triplets. --0 Darren --0 Pause --0 Symptom --9 AF egm's Afib. AF [place] 1.9%. See scanned report. [facility] remote f/u 07/08/2024. Annie Lew, RN Emilio Leggett MD [facility] PROCEDURES F inal Result * DEVICE CHECK - REMOTE (05/02/2024 10:21 AM SPRING SALVAGE WORKER) Anatomical Region Laterality Modality Other Narrative 05/24/2024 10:29 AM SPRING SALVAGE WORKER Ovonyx LNQ22 Loop Recorder. Dx; Syncope, Afib. DOI 08/08/2022-Chris. [facility] remote monitoring. Routine ILR remote. Normal device function. Battery function-Good. Presenting rhythm: VS, regular 130 bpm. Medications: ASA 81 mg, Toprol-XL, Lipitor. Patient has a left atrial appendage occlusion device. Counters since last scheduled transmission on 02/26/2024. --48 Tachy egm's Afib with RVR. --0 Darren --0 Pause --0 Symptom --27 AF egm's Afib. AF [place] 2.3%. See scanned report. [facility] remote f/u 05/27/2024. Annie Lew RN Emilio Leggett MD [facility] C[facility] SERVICES PROCEDURES F inal Result from Last 3 Months Insurance MEDICARE SOLUTIONS MEDICARE SOLUTIONS MEDICARE SOLUTIONS Care Teams Personalized Living Manager Relationship Specialty Start Date End Date Gadiel Zavala MD [address] [address] PCP - General 06/13/16 Lyudmila Knox, RN Registered Nurse 04/14/17 Jennifer Escalona, RN Registered Nurse 05/10/17
--- OUTSIDE RECORDS SUMMARY | 2024-06-14 09:31 | XMS_ITS | Patient Health Summary ---
Author Organization [facility] Address [address] [place] [address] Care Team Providers Care Commercial Fisher Name Role Phone Gadiel Zavala MD Primary Care Provider [phone] Note from [facility],non-owned Affiliates and Associated Physician Practices is amultiple site organization consisting of ambulatory clinics and hospital sitesin [place], [place], [place] and [place]. This disclosure is being madepursuant to the Care Everywhere program and may not contain all information available regarding this patient. Last updated 18.[facility] Allergies * Adhesive Sensitivity(Rash) -Medium Criticality * [...] 6 hours as needed for Pain * enfzrnsv-mycvlmrxy-lkrkboxr (Maxitrol) ophthalmic suspension(Started 02/01/2022) Instill 1 (one) [...] MASK AIRWAY (02/01/2022 1:37 PM CDT) Narrative Chrzanowski, Henrietta D, AIR SAW OPERATOR-HEAD OF MUSIC - 02/01/2022 1:37 PM CDT Henrietta Balbuena APRN-CRNA 02/01/2022 1:38 PM LMA Placement Procedure/LDA Note: Patient Location: [...] Clarice Hammond MD GENERAL ANESTHESIA O RDERABLES * LARYNGEAL MASK AIRWAY (08/03/2021 1:56 PM CDT) Narrative Joe Thomas Anes Asst - 08/03/2021 1:56 PM CDT Joe Thomas Anes Asst 08/03/2021 1:57 PM LMA Placement Procedure/LDA Note: Patient Location: [...] the procedure Provider #1: Fred Hu MD. Fred Hu MD GENERAL ANESTHESIA O RDERABLES * DERMATOPATHOLOGY (08/05/2020 3:33 AM CDT) Case Report Dermatopathology Report Case: [id number] Authorizing Provider: Angie Fortune DO Collected: 08/05/2020 03:33 AM Ordering Location: [facility] Received: 08/06/2020 07:28 AM Pathologist: Radha Mcfarland MD Specimens: A) - Skin, left abdomen B) - Skin, right inner upper arm 4:26 PM [facility] Final Diagnosis Specimen A. SKIN, left abdomen: SEBORRHEIC KERATOSIS, IRRITATED AND INFLAMED (L82.0) Specimen B. SKIN, right inner upper arm: SOLAR LENTIGO, IRRITATED (L81.4) (see microscopic description) 4:26 PM [facility] Clinical History A: ISK R/O NMSC. B: LENT R/O atypia. 4:26 PM [facility] Gross Description Specimen A: Received is one formalin filled container labeled with the patient's name and designated left abdomen. The specimen consists of a shave measuring 58e7i3gv. Jar 0. Specimen B: Received is one formalin filled container labeled with the patient's name and designated right inner upper arm. The specimen consists of a shave measuring 64m5g4et. Jar 0. 4:26 PM [facility] Microscopic Description Specimen A. SKIN, [...] Dr. Danielle Montenegro, who agrees. 4:26 PM [facility] Disclaimer An external and internal positive and negative controls are appropriate for the histochemical, immunohistochemical and immunofluorescence stain(s) in this case (if any), except where stated explicitly. The performance characteristics of the stain(s) cited in this report were developed and its performance characteristic determined by the Dermatopathology Laboratory at [facility], directed by Dr. Luis Montenegro. These tests need not be, and therefore are not, approved by the [place] Food and Drug Administration. The tests are used for clinical purposes. Billing Codes Specimen Charges Stain Charges 12949 57134 1 1 14602 1 1 4:26 PM CDT DERMATOPATHOLOGY LABORATORY Embedded Images 4:26 PM CDT DERMATOPATHOLOGY LABORATORY Pathology/Cytology TISSUE SPECIMEN FROM SKIN / Unknown 08/05/2020 3:33 AM CDT 08/06/2020 7:28 AM CDT Miscellaneous samples (specimen) TISSUE SPECIMEN FROM SKIN / Unknown 08/05/2020 3:33 AM CDT 08/06/2020 7:28 AM CDT Angie Frotune DO LAB - PATHOLOGY/C YTOLOGY ORDERABLES DERMATOPATHOLOGY LABORATORY [facility] - Department of Dermatology [facility] Specialized Medicine [address] [place] [address], [address] [phone] Care Teams Commercial Fisher Relationship Specialty Start Date End Date Gadiel Zavala MD [address] [facility] [address] [address] PCP - General 02/15/21
--- OUTSIDE RECORDS SUMMARY | 2024-06-14 09:31 | XMS_ITS | Clinical Summary ---
Author Organization [facility] Address [address] [place] [address] Phone Care Team Providers Care Frame Carver Spindle Name Role Phone Gadiel Zavala MD Primary Care Provider [phone] Allergies Active Allergy Reactions Criticality Noted Date [...] tablet Take 50 mcg by mouth daily estimator binding. Active atorvastatin (LIPITOR) 20 mg tablet Take [...] mouth daily. Active naloxone (NARCAN) 4 mg/spray [place], Non-Aerosol EMERGENCY USE ONLY: Administer 1 [...] Comments Blood Pressure 122/80 06/14/2022 10:12 AM ACCOUNT SERVICES SPECIALIST Pulse 57 06/14/2022 10:12 AM ACCOUNT SERVICES SPECIALIST Temperature 36.7 C (98.1 F) 02/05/2021 5:04 PM CDT Respiratory Rate 16 02/05/2021 5:04 PM CDT Oxygen Saturation 99% 02/05/2021 5:04 PM CDT Inhaled Oxygen Concentration - - Weight 57.4 kg (126 lb 8 oz) 06/14/2022 10:12 AM ACCOUNT SERVICES SPECIALIST Height 152.4 cm (5') 06/14/2022 10:12 AM ACCOUNT SERVICES SPECIALIST Body Mass Index 24.71 06/14/2022 10:12 AM ACCOUNT SERVICES SPECIALIST Plan of Treatment Health Maintenance Due Date [...] 01/26/2021, 2016 Medical Devices Implanted Type Area Boiling House Oiler Device Identifier Shelf Expiration Date Model / Serial / Lot Spacer Bio Avs C-Plg 6mm 4d [id number] - [id number] Implanted:Qt y: 1 on 02/16/2017 by Mylene Gutierrez MD at [facility] Biological N/A: Spine Cervical Anterior OMARI- SPINE 09/12/2020 [id number] / [id number] / Description:All Omari spac er plugs and other spinal hardware was processed on requisition,[id number] Plate Aviator 1lvl 12mm [id number] - [id number] Implanted:Qt y: 1 on 02/16/2017 by Mylene Gutierrez MD at [facility] Plate N/A: Spine Cervical Anterior OMARI- SPINE [id number] / STERILIZED 02/16/2017 / LOAD24 Screw [address]tr [address] 4.0x14mm [id number] - [id number] Implanted:Qt y: 4 on 02/16/2017 by Mylene Gutierrez MD at [facility] Screw N/A: Spine Cervical Anterior OMARI- SPINE [id number] / STERILIZED 02/16/2017 / LOAD24 Sealant Floseal 10ml [id number] - [id number] Implanted:Qt y: 1 on 02/16/2017 by Mylene Gutierrez MD at [facility] Sealant N/A: Spine Cervical Anterior CHERRY- BIOSCIENCE [id number] 03/16/2018 [id number] / / [id number] [id number] In Back Explanted Type Area Boiling House Oiler Device Identifier Shelf Expiration Date Model / Serial / Lot Spinal Cord Generator And Leads Explanted:Qty: 1 on 11/16/2017 by Mylene Gutierrez MD at [facility] Lead N/A: Back Insurance Advance Directives For more information, please contact: [phone] * Full Code (Latest Code Status on [...] 12:48 PM 11/16/2017 12:50 PM Care Teams Frame Carver Spindle Relationship Specialty Start Date End Date Gadiel Zavala MD [address] [place] [phone] PCP - General Family Practice 03/03/17
== END 2024-06-14 09:26 | disposition home or self-care (01) ==
LOC: ANHIMG 09:26
PROVIDERS: PCP Family Medicine; Visit Provider Family Medicine
DX: Z12.31 Encounter for screening mammogram for malignant neoplasm of breast (principal); R92.8 Other abnormal and inconclusive findings on diagnostic imaging of breast
CPT/HCPCS: 77063; 77067

== ENCOUNTER 2024-06-24 16:58 | Emergency (ER) | payer MEDICARE, SELFPAY ==
--- NOTE | ~2024-06-24 | XR_ITS ---
EXAM: XR knee LT min 4V DATE: 06/24/2024 17:47 HISTORY: fall . COMPARISON: 01/18/2022. FINDINGS: Osteopenia. No fracture or dislocation. No lytic or blastic lesion. Mild osteoarthritic ch fara. No erosion or periosteal change. Basilar calcifications. Anterior soft tissue swelling. IMPRESSION: No acute osseous finding in the left knee. Reviewed, dictated and finalized at location K. ORT TRAFFIC CONTROLLER
--- NOTE | ~2024-06-24 | XR_ITS ---
EXAMINATION: [id number] Exam Date/Time: 06/24/2024 17:32 VICE PRESIDENT OF SOFTWARE ENGINEERING HISTORY: fall Comparison: X-ray chest 10/22/2021. RESULT: Lines, tubes, and devices: Loop recorder. Partially visualized lumbar fusion hardware. Atrial occlus ion device. L1 vertebroplasty cement. Lungs and pleura: Calcified granulomas, minimal bibasilar scar/atelectasis, otherwise clear. Cardiothymic silhouette: Stable. Other: No acute osseous or upper abdominal finding. IMPRESSION: No acute cardiopulmonary process. No acute osseous finding in the right ribs. Reviewed, dictated and finalized at location K. PRESIDENT OF SOFTWARE ENGINEERING
--- NOTE | ~2024-06-24 | XR_ITS ---
EXAM: XR elbow LT min 3V DATE: 06/24/2024 17:47 HISTORY: fall . COMPARISON: 05/31/2024. FINDINGS: Normal mineralization. No fracture or dislocation. No lytic or blastic lesion. Joint space s are maintained. No erosion or periosteal change. Soft tissue swelling over the olecranon. IMPRESSION: No acute osseous finding in the left elbow. Olecranon soft tissue swelling/bursitis. Reviewed, dictated and finalized at location K. HIATRIC NURSING ASSISTANT IMPRESSION: No acute osseous finding in the left elbow. Olecranon soft tissue s welling/bursitis.
[2024-06-24 17:07] VITALS: BP 150/84; PULSE 87; RESP 14; TEMP 36.3; O2SAT 98
--- NOTE | 2024-06-24 17:21 | ED_ITS ---
HPI - Fall General Chief Complaint: Fall <Sarah Randolph PA-C - Last Filed: 06/24/24 17:24> Stated Complaint: fall <Sarah Randolph PA-C - Last Filed: 06/24/24 17:24> Time Seen by Provider: 06/24/24 18:50 <Sarah Randolph PA-C - Last Filed: 06/24/24 17:24> Focused HPI: 73 y/o F presents to the ED with At bedside after ground level mechanical fall. Patient states she has neuropathy, lost her balance and fell. States she landed with her right ribs against the bathtub. She did not hit her head or lose consciousness. She is reporting pain over right ribs, left elbow and left knee. Denies neck pain, back pain or other injuries acquired. patient presents with healing contusion to the right orbit which was from a fall on 05/31/2024 for which patient was evaluated at our emergency department for GENERAL: Well-appearing, well-nourished, and in no acute distress. HEAD: Normocephalic, atraumatic. NECK/BACK: No midline thoracolumbar spinous tenderness, crepitus, step-offs or deformities CHEST: Clear to auscultation. ?No respiratory distress. Tenderness to the right anterior inferior ribs with no overlying skin changes, crepitus or deformity EXT: contusion with superficial abrasions to the anterior aspect of the left knee with tenderness, full active and passive range of motion DP pulse 2 +, sensation intact. Diffuse tenderness to the left elbow with full active and passive range of motion, radial pulse 2 +, sensation intact, radial, median and ulnar nerves are intact HEART: Regular rate and rhythm.? NEURO: ?Alert and oriented x3. Patient screened in triage and initial orders placed.? ?Additional care and disposition to be based upon?diagnostic testing and treatment. <Sarah Randolph PA-C - Last Filed: 06/24/24 17:24> Focused HPI: 73 y/o F presents to the ED with at bedside after ground level mechanical fall. Patient states she has neuropathy, lost her balance and fell. States she landed with her right ribs against the bathtub. She did not hit her head or lose consciousness. She is reporting pain over right ribs, left elbow and left knee. Denies neck pain, back pain or other injuries acquired. Patient presents with healing contusion to the right orbit which was from a fall on 05/31/2024 for which patient was evaluated at our emergency department for GENERAL: Well-appearing, well-nourished, and in no acute distress. HEAD: Normocephalic, atraumatic. NECK/BACK: No midline thoracolumbar spinous tenderness, crepitus, step-offs or deformities CHEST: Clear to auscultation. ?No respiratory distress. Tenderness to the right anterior inferior ribs with no overlying skin changes, crepitus or deformity EXT: contusion with superficial abrasions to the anterior aspect of the left knee with tenderness, full active and passive range of motion DP pulse 2 +, sensation intact. Diffuse tenderness to the left elbow with full active and passive range of motion, radial pulse 2 +, sensation intact, radial, median and ulnar nerves are intact HEART: Regular rate and rhythm.? NEURO: ?Alert and oriented x3. Patient screened in triage and initial orders placed.? ?Additional care and disposition to be based upon?diagnostic testing and treatment. <Carolina Bueno PA-C - Last Filed: 06/24/24 19:11> Related Data Home Medications: Home Medications ?Medication ?Instructions ?Recorded ?Confirmed ?Last Taken ?Type vitamin E 268 mg (400 unit) capsule 400 unit PO QAM 10/04/21 06/07/24 08/07/22 History aspirin 81 mg tablet,delayed 81 mg PO DAILY 07/20/22 06/07/24 08/07/22 History release (Adult Low Dose Aspirin) losartan 25 mg tablet 25 mg PO DAILY 08/05/22 06/07/24 08/07/22 History diclofenac sodium 1 % topical gel 2 g topical QID 01/24/23 06/07/24 Unknown History (Voltaren Arthritis Pain) cyanocobalamin (vitamin B-12) 1,000 mcg PO DAILY 07/02/23 06/07/24 Unknown History 1,000 mcg tablet <Sarah Randolph PA-C - Last Filed: 06/24/24 17:24> Allergies/Adverse Reactions: Allergies Allergy/AdvReac Type Severity Reaction Status Date / Time gadobenic acid (From Allergy Intermediate Hives & Verified 06/07/24 14:14 CONTRAST-MRI) SWELLING iohexol (From contrast - CT, Allergy Hives Verified 06/07/24 14:14 X-RAY) latex Allergy Hives Verified 06/07/24 14:14 adhesive tape AdvReac Mild SKIN Verified 06/07/24 14:14 IRRITATION <Sarha Randolph PA-C - Last Filed: 06/24/24 17:24> Review of Systems Review of Systems: CONSTITUTIONAL: Denies fever EYES: Denies visual changes CARDIOVASCULAR: Reports chest/rib pain RESPIRATORY: Denies dyspnea. MUSCULOSKELETAL: Reports joint pain and myalgia. Denies back pain <Carolina Bueno PA-C - Last Filed: 06/24/24 19:11> All systems reviewed & are unremarkable except as noted in HPI and below <Carolina Bueno PA-C - Last Filed: 06/24/24 19:11> [facility] Past Medical History Medical History: Medical History (Updated 06/24/24 @ 19:10 by Carolina Bueno PA-C) Mass of lower inner quadrant of right breast (~06/14/24) mass right lower inner quadrant of the right breast noted on mammogram BMI 25.0-25.9,adult Paroxysmal atrial fibrillation New onset headache Vitamin B12 deficiency (06/27/23) level low at 322 with goal greater than 400 with folic acid 12.5 and hemoglobin 13.3 on 06/27/2023. UTI (urinary tract infection) RUQ pain Dysphagia Black tongue Encounter for HCV screening test for low risk patient (12/28/22) Hepatitis C screening was negative on 12/28/2022. hepatitis C screening was negative on 06/27/2023. Radiculitis, cervical Generalized weakness Frequent falls Left arm weakness Cervicalgia Acute pain of left knee x-ray of the left knee on 01/18/2022 reveals no significant bony defects. Low ferritin level (12/25/21) ferritin low at 7 with iron 63 with 17% saturation on 12/25/2021. total iron 63 with 17% saturation and ferritin low at 7 with hemoglobin 13.3 12/27/2021. Iron 63 with 15% saturation and ferritin 11 with hemoglobin 12.8 on 12/28/2022. Iron normal at 118 with 29% saturation and ferritin low at 13 with hemoglobin 13.3 on 06/27/2023. Encounter for surgical aftercare following surgery on the digestive system Postoperative ileus Primary adenocarcinoma of ascending colon (09/01/21) right hemicolectomy 10/13/2021. Colonoscopy 11/21/2022 negative for recurrence with recheck in 3 years. CEA normal at 2.1 on 12/28/2022. Colon cancer, ascending Colonic mass (~09/01/21) 25-30 mm mass ascending colon On 09/01/2021. the patient had a right hemicolectomy on 10/13/2021 for adenocarcinoma of the ascending colon. Essential hypertension BMI 23.0-23.9, adult Weight loss, unintentional Vitamin D deficiency, unspecified (12/15/20) level low at 26 with goal greater than 30 on 12/15/2020 Low iron (12/15/20) iron 51 with 14% saturation and hemoglobin 12.5 on 12/15/2020. Iron 63 with 17% saturation and ferritin low at 7 on 12/27/2021. Iron 63 with 15% saturation and ferritin low at 11 with hemoglobin 12.8 on 12/28/2022. Iron 118 with 29% saturation and ferritin 113 on 06/27/2023. Chronic left hip pain Breast cancer screening by mammogram mammogram on 01/20/2021 was negative. Recheck in 1 year. Normal mammogram 01/24/2022. Normal mammogram 05/10/2023. Colon cancer screening Constipation Hiatal hernia Encounter for preprocedure screening laboratory testing for COVID-19 BMI 22.0-22.9, adult At high risk for falls Overactive bladder Chronic low back pain with left-sided sciatica Fatigue Seborrheic keratosis Insomnia Urinary frequency volume chart completed Chronic cough Urinary frequency Mixed hyperlipidemia total cholesterol 207, triglycerides 87, HDL 62, LDL 126 on 12/15/2020. Cholesterol 230, triglycerides 119, HDL 70, LDL 136 on 12/25/2021. Cholesterol 241, triglycerides 102, HDL 75, LDL 144 on 12/28/2022. Cholesterol 230, triglycerides 77, HDL 81, LDL 132 with ratio of 2.8 on 06/27/2023. Hypothyroidism TSH 1.22 with free T4 at 1.5 on 12/15/2020. TSH 1.19 on 12/25/2021. TSH 0.77 on 06/27/2023. Chronic depression Chronic low back pain with right-sided sciatica X-ray of the lumbar spine on 01/18/2022 reveals previous posterior fusion from L3 through S1 unchanged from 08/11/2018 with new severe degenerative disc disease at L2-L3 chronic burst fracture with vertebroplasty at L1 unchanged. Elbow contusion Chronic back pain Arthritis GERD (gastroesophageal reflux disease) Hypertension Hyperlipidemia Peripheral neuropathy <Sarah Randolph PA-C - Last Filed: 06/24/24 17:24> Surgical History Surgical History: Surgical History Hx of cervical spine surgery Hx of right hemicolectomy 10/13/2021 History of back surgery lumbosacral fusion <Sarah Randolph PA-C - Last Filed: 06/24/24 17:24> Family History Family History: Family History Other Alcohol abuse Diabetes mellitus Hypertension <Sarah Randolph PA-C - Last Filed: 06/24/24 17:24> Social History Social History: Social History Years smoked: 10 Smoking status: Former smoker Tobacco type: cigarettes Second hand tobacco smoke exposure: No Alcohol intake: never Substance use: never Substance use type: does not use Current Housing: Decline to Answer Concerned About Future Housing: Decline to Answer Difficulty Paying Gas/Electric Bills: Decline to Answer Difficulty Paying for Meds: Decline to Answer Currently Unemployed: Decline to Answer Education: Decline to Answer Difficulty w/ Childcare or Family Care: Decline to Answer Living arrangements: with family Occupation/Education: retired Gender identity (if verbalized by the patient): Female Spiritual care concerns: No <SALLY Mohan Last Filed: 06/24/24 17:24> Exam Narrative: GENERAL: Well-appearing, well-nourished, and in no acute distress. HEAD: Normocephalic. Old, healing bruise over the right orbit EYES: EOMI. ENT: Nares clear, no rhinorrhea or epistaxis. Mucous membranes moist. Oropharynx without tonsillar hypertrophy exudate or other lesions. CHEST: No respiratory distress. HEART: Regular rate EXTREMITIES: Normal range of motion. No obvious deformity. Mild edema about the left elbow without overlying redness, non-tender SKIN: Warm, dry, no rash. NEURO: No focal deficits. Alert and oriented x3. PSYCH: Normal mood and affect <SALLY Pollack Last Filed: 06/24/24 19:11> Course Course Emergency Course: Patient and family updated on workup and agree with plan of care <SALLY Pollack Last Filed: 06/24/24 19:11> Vital Signs Vital signs: Vital Signs Temperature 97.4 F L 06/24/24 17:07 Pulse Rate 87 06/24/24 17:07 Respiratory Rate 14 06/24/24 17:07 Blood Pressure 150/84 H 06/24/24 17:07 Pulse Oximetry 98 06/24/24 17:07 Temperature 97.4 F L 06/24/24 17:07 Pulse Rate 87 06/24/24 17:07 Respiratory Rate 14 06/24/24 17:07 Blood Pressure 150/84 H 06/24/24 17:07 Pulse Oximetry 98 06/24/24 17:07 <SALLY Mohan Last Filed: 06/24/24 17:24> Vital Signs Temperature 97.4 F L 06/24/24 17:07 Pulse Rate 87 06/24/24 17:07 Respiratory Rate 14 06/24/24 17:07 Blood Pressure 150/84 H 06/24/24 17:07 Pulse Oximetry 98 06/24/24 17:07 Temperature 97.4 F L 06/24/24 17:07 Pulse Rate 87 06/24/24 17:07 Respiratory Rate 14 06/24/24 17:07 Blood Pressure 150/84 H 06/24/24 17:07 Pulse Oximetry 98 06/24/24 17:07 <SALLY Pollack Last Filed: 06/24/24 19:11> MDM - Fall Imaging Data Radiologist's impression: ITS Impressions Elbow X-Ray 06/24/24 18:01 IMPRESSION: No acute osseous finding in the left elbow. Olecranon soft tissue swelling/bursitis. Knee X-Ray 06/24/24 18:06 IMPRESSION: No acute osseous finding in the left knee. Ribs w/Chest X-Ray 06/24/24 18:12 IMPRESSION: No acute cardiopulmonary process. No acute osseous finding in the right ribs. <Carolina Bueno PA-C - Last Filed: 06/24/24 19:11> Critical Care Time Critical Care Time Critical Care Time: No <SALLY Pollack Last Filed: 06/24/24 19:11> Discharge Plan Discharge Clinical Impression: Contusion of elbow, left Qualifiers: Encounter type: initial encounter Qualified Code(s): S50.02XA - Contusion of left elbow, initial encounter Contusion of rib on right side Qualifiers: Encounter type: initial encounter Qualified Code(s): S20.211A - Contusion of right front wall of thorax, initial encounter Contusion of knee Qualifiers: Encounter type: initial encounter Laterality: left Qualified Code(s): S80.02XA - Contusion of left knee, initial encounter <SALLY Mohan Last Filed: 06/24/24 17:24> Patient Disposition: Home, Self-Care <SALLY Mohan Last Filed: 06/24/24 17:24> Condition: Stable <SALLY Mohan Last Filed: 06/24/24 17:24> Instructions: Elbow Bursitis (ED), Rib Contusion (ED) <SALLY Mohan Last Filed: 06/24/24 17:24> Additional Instructions: Return to the emergency department if you experience fever, chest pain, shortness of breath, abdominal pain with nausea and vomiting, weakness, numbness, or any other symptoms that are concerning to you. Rest. Elevate. Ice to the area. Rquc-bgu-[id number] pain medication as needed Follow up with primary care doctor <SALLY Mohan Last Filed: 06/24/24 17:24> Patient Language: Greek <SALLY Mohan Last Filed: 06/24/24 17:24> Prescriptions: No Action aspirin [Adult Low Dose Aspirin] 81 mg tablet,delayed release (DR/EC) 81 mg PO DAILY diclofenac sodium [Voltaren Arthritis Pain] 1 % gel 2 g topical QID Patient Comments: samples [id number] gel. Twice daily the both knee Rx Instructions: apply to single elbow, wrist or hand; for hand includes palm/fingers/back of hand duloxetine 60 mg capsule,delayed release(DR/EC) 60 mg PO BID Qty: 180 3RF cephalexin 500 mg capsule 500 mg PO Q8H 7 Days Qty: 21 0RF vitamin E 400 unit Capsule 400 unit PO QAM losartan 25 mg tablet 25 mg PO DAILY hydrocodone-acetaminophen 5-325 mg tablet 1 tablet PO Q6H PRN (Reason: pain) 3 Days Qty: 12 0RF omeprazole 40 mg capsule,delayed release(DR/EC) 40 mg PO BID Qty: 180 3RF ferrous sulfate 324 mg (65 mg iron) tablet,delayed release (DR/EC) 324 mg PO DAILY Qty: 30 11RF cyanocobalamin (vitamin B-12) 1,000 mcg tablet 1,000 mcg PO DAILY mirabegron [Myrbetriq] 50 mg tablet extended release 24 hr 50 mg PO DAILY Qty: 30 11RF levothyroxine 50 mcg tablet 50 mcg PO QAM Qty: 90 3RF Rx Instructions: patient prefers generic now. metoprolol succinate [Toprol XL] 100 mg tablet extended release 24 hr 100 mg PO QAM Qty: 30 11RF eszopiclone [Lunesta] 3 mg tablet 3 mg PO . q.h.s. PRN (Reason: insomnia) Qty: 30 5RF Rx Instructions: Take one tablet at bedtime for insomnia pantoprazole [Protonix] 20 mg tablet,delayed release (DR/EC) 20 mg PO HS 42 Days Qty: 30 11RF atorvastatin 20 mg tablet 20 mg PO QAM Qty: 90 3RF <Sarah Randolph PA-C - Last Filed: 06/24/24 17:24> Follow-up/Referrals: Gadiel Zavala MD [Primary Care Provider] - <Sarah Randolph PA-C - Last Filed: 06/24/24 17:24>
--- OUTSIDE RECORDS SUMMARY | 2024-06-24 18:48 | XMS_ITS | Referral Summary ---
Author Organization [facility] Address [address] [place] [address] Care Team Providers Care Strategic Planning Director Name Role Phone Gadiel Zavala MD Primary Care Provider [phone] Lyudmila Knox RN Unavailable Unavailable Jennifer Escalona RN Unavailable Agustina vailable Encounters Date Type Department Care Team Description 05/27/2024 9:15 AM LABEL REWINDER Ancillary Procedure [facility] Cardiology [address] [place] [phone] Status post placement of implantable loop recorder (Primary Dx); PAF (paroxysmal atrial fibrillation) ([facility]/HCC) ([facility]); Syncope and collapse 05/02/2024 Orders Only [facility]iology [address] [place] [phone] Emilio Leggett MD Paroxysmal atrial fibrillation ([facility]/HCC) ([facility]) (Primary Dx); Status post placement of implantable loop recorder; Syncope, unspecified syncope type 04/15/2024 9:15 AM LABEL REWINDER Ancillary Procedure [facility] [address] [place] [phone] Status post placement of implantable loop [...] implantable loop record er 08/09/2022 Overview (11/24/2023): [employer] LNQ22 Loop Recorder. Dx; Syncope, Afib. DOI [...] often do you attend chur ch or orthodox services? Never 11/17/2023 Do you belong to any clubs o r organizations such as synagogue groups, unions, fraternal or athletic groups, or [...] on file Legal Sex Female 3:22 AM LABEL REWINDER Gender Identity Not on file Sexual Orientation [...] March 2017 Medical Devices Implanted Type Area Lard Refiner Device Identifier Shelf Expiration Date Model / Serial / Lot Cage Cage Back Other Kit Stimulator Octrode L60 Cm Trial Lead Neurostimulator - [id number] Implanted:Qty: 1 on 05/03/2017 by Brice Eisenberg MD at [facility] Physician [facility] Building [address] [employer] 3086 / / Kit Stimulator Octrode L60 Cm Trial Lead Neurostimulator - [id number] Implanted:Qty: 1 on 05/03/2017 by Brice Eisenberg MD at [facility] Physician Office Building [address] [employer] 3086 / / Kit Neurostimulator Octrode L60 Cm Percutaneous 8 Electrode Lead - [id number] - [id number] Implanted:Qty: 1 on 06/22/2017 by Brice Eisenberg MD at [facility] N/A: Back [employer] 05/24/2019 [id number] / [id number] / Kit Neurostimulator Octrode L60 Cm Percutaneous 8 Electrode Lead - [id number] - [id number] Implanted:Qty: 1 on 06/22/2017 by Brice Eisenberg MD at [facility] N/A: Back [employer] 05/24/2019 [id number] / [id number] / [place] Lead Eduardo-Lock - [id number] Implanted:Qty: 2 on 06/22/2017 by Brice Eisenberg MD at [facility] N/A: Back [employer] 05/18/2019 1192 / / [id number] Generator Neurostimulator Proclaim Elite Thk13.4 Mm 5 In W49.5 Mm X H55.5 Mm Spinal Cord Implantable Pulse - [id number] - [id number] Implanted:Qty: 1 on 06/22/2017 by Brice Eisenberg MD at [facility] N/A: Back [employer] 05/02/2019 [id number] / [id number] / [employer] System Closure Repair Femoral Artery Suture Mediated Perclose Prostyle 53801-25 - [id number] Implanted:Qty: 1 on 11/16/2023 by Emilio Leggett MD at [facility] [employer] 07/29/2025 1 277- / [id number] [employer] System Closure Repair Femoral Artery Suture Mediated Perclose Prostyle 24814-97 - [id number] Implanted:Qty: 1 on 11/16/2023 by Emilio Leggett MD at [facility] 07/29/2025 1 277- [id number] [employer] System Closure Repair Femoral Artery Suture Mediated Perclose Prostyle 69453-88 - [id number] Implanted:Qty: 1 on 11/16/2023 by Emilio Leggett MD at [facility] 07/29/2025 1 [id number] [employer] Percutaneous Transcatheter Amplatzer Amulet 22mm [id number] - [id number] Implanted:Qty: 1 on 11/16/2023 by Emilio Leggett MD at [facility] 11/29/2027 9 -[id number] 7-022 / / [id number] Procedures Procedure Name Priority Date/Time Associated Diagnosis Comments DEVICE CHECK - REMOTE Routine 05/29/2024 7:20 AM LABEL REWINDER PAF (paroxysmal atrial fibrillation) (CMS/HCC) (HCC) DEVICE CHECK - REMOTE Routine 05/02/2024 10:21 AM LABEL REWINDER PAF (paroxysmal atrial fibrillation) (CMS/HCC) (HCC) from Last 3 Months Results * DEVICE CHECK - REMOTE (05/29/2024 7:20 AM LABEL REWINDER) Anatomical Region Laterality Modality Other Narrative 06/14/2024 9:16 AM LABEL REWINDER [employer] LNQ22 Loop Recorder. Dx; Syncope, Afib. DOI 08/08/2022-[place]. [facility] remote monitoring. Routine ILR remote. Normal device function. Battery function-Good. Presenting rhythm: VS, regular 60 bpm. Medications: ASA 81 mg, Toprol-XL, Lipitor. Patient has a left atrial appendage occlusion device. Counters since last scheduled transmission on 04/15/2024. --32 Tachy egm's Afib with RVR, couplets, and triplets. --0 Darren --0 Pause --0 Symptom --9 AF egm's Afib. AF [place] 1.9%. See scanned report. [facility] remote f/u 07/08/2024. Annie Lew RN Emilio Leggett MD [facility] PROCEDURES F inal Result * DEVICE CHECK - REMOTE (05/02/2024 10:21 AM LABEL REWINDER) Anatomical Region Laterality Modality Other Narrative 05/24/2024 10:29 AM LABEL REWINDER [employer] LNQ22 Loop Recorder. Dx; Syncope, Afib. DOI 08/08/2022-[place]. [facility] remote monitoring. Routine ILR remote. Normal device function. Battery function-Good. Presenting rhythm: VS, regular 130 bpm. Medications: ASA 81 mg, Toprol-XL, Lipitor. Patient has a left atrial appendage occlusion device. Counters since last scheduled transmission on 02/26/2024. --48 Tachy egm's Afib with RVR. --0 Darren --0 Pause --0 Symptom --27 AF egm's Afib. AF [place] 2.3%. See scanned report. [facility] remote f/u 05/27/2024. Annie Lew RN Emilio Leggett MD [facility] PROCEDURES F inal Result from Last 3 Months Insurance MEDICARE SOLUTIONS MEDICARE SOLUTIONS MEDICARE SOLUTIONS Care Teams Strategic Planning Director Relationship Specialty Start Date End Date Gadiel Zavala MD [address] [address] PCP - General 06/13/16 Lyudmila Knox, RN Registered Nurse 04/14/17 Jennifer Escalona, RN Registered Nurse 05/10/17
--- OUTSIDE RECORDS SUMMARY | 2024-06-24 18:48 | XMS_ITS ---
Author Organization [facility] Address [address] [place] [address] Care Team Providers Care Transcribing Operator Head Name Role Phone Gadiel Zavala MD Primary Care Provider [phone] Lyudmila Knox RN Unavailable Unavailable Jennifer Escalona [...] Pain of hand 07/07/2016 Notalgia 07/07/2016 Current Treatment and Therapy Plans No current plan information found. Past Treatment and Therapy Plans No past plan information found. Lifetime Dose Tracking * Chemical Lifetime Dose Automatic Entry Manual Entr y Fluoro Time 2.32 minutes 2.32 minutes 0 minutes Air kerma at the reference point (Ka,r) 370 mGy 0 mGy 370 mGy
--- OUTSIDE RECORDS SUMMARY | 2024-06-24 18:48 | XMS_ITS | Continuity of Care Document ---
Author Organization [facility] Address [address] [place] [address] Phone Care Team Providers Care Back Tender Insulation Board Name Role Phone Jorge Cevallos Unavailable Unavailable Procedures Procedure Date No Charge Glasses Check Office/outpatient Visit, Est Refraction Eye Exam & Treatment Refraction Advance Directives Directive Yes / No Effective Date File Name No Information Encounters Encounter Description Practice Location Reason(s) For Visit Diagnoses Date Provider Providers Copied on Encounter Formerly [facility], [address] [place] [address] [address], [place], [place], [id number], tel:[phone] [facility] No Information 0 Ban Patel. [address] [facility] , [address], [place], [place], [facility], [place]. tel:[phone] Office/outpat ient Visit, Est Formerly [facility], [address] [place] [address] [address], [place], [place], [id number], [place] tel:[phone] [facility] No Information [address] Ban Patel. [address] [facility] , [address], [place], [address], [place]. tel:[phone] Formerly [facility], [address] [place] [address] [address], [place], [place], [id number], tel:[phone] [facility] No Information [address] Ban Patel. [address] [facility] , [address], [place], [address], [place]. tel:[phone] Family History Family Member Type Diagnosis Age [...]
--- OUTSIDE RECORDS SUMMARY | 2024-06-24 18:48 | XMS_ITS | Clinical Summary ---
Author Organization [facility] Address [address] [place] [address] Care Team Providers Care Craft Worker Name Role Phone Gadiel Zavala MD Primary Care Provider [phone] Lyudmila Knox RN Unavailable Unavailable Jennifer Escalona [...] Dx; Syncope, Afib. DOI 08/08/2022-Chris. [facility] remote monitoring. Amulet placed 11/16/23 Falls [...] Department Care Team Description 05/27/2024 9:15 AM STRIPPER PRELIMINARY Ancillary Procedure [facility] Cardiology [address] [place] [phone] Status post placement of implantable loop recorder (Primary Dx); PAF (paroxysmal atrial fibrillation) (CMS/HCC) ([facility]); Syncope and collapse 05/02/2024 Orders Only [facility] Cardiology [address] [place] [address] Emilio Leggett MD Paroxysmal atrial fibrillation (CMS/HCC) ([facility]) (Primary Dx); Status post placement of implantable loop recorder; Syncope, unspecified syncope type 04/15/2024 9:15 AM STRIPPER PRELIMINARY Ancillary Procedure [facility] Cardiology [address] [address] Status post placement of implantable [...] = 0.6 oz pur e alcohol) social [employer] Utilities Answer Date Recorded In the past [...] often do you attend chur ch or druze services? Never 11/17/2023 Do you belong to [...] in the past 12 m [facility], were you homeless or living in [...] on file Legal Sex Female 3:22 AM STRIPPER PRELIMINARY Gender Identity Not on file Sexual Orientation [...] March 2017 Medical Devices Implanted Type Area Coding And Reimbursement Specialist Device Identifier Shelf Expiration Date Model / Serial / Lot Cage Cage Back Other Kit Stimulator Octrode L60 Cm Trial Lead Neurostimulator - [id number] Implanted:Qty: 1 on 05/03/2017 by Brice Eisenberg MD at [facility] Building 2 [facility] [employer] 3086 / / Kit Stimulator Octrode L60 Cm Trial Lead Neurostimulator - [id number] Implanted:Qty: 1 on 05/03/2017 by Brice Eisenberg MD at [facility] Building 2 [employer] 3086 / / Kit Neurostimulator Octrode L60 Cm Percutaneous 8 Electrode Lead - [id number] - [id number] Implanted:Qty: 1 on 06/22/2017 by Brice Eisenberg MD at [facility] N/A: Back [employer] 05/24/2019 [id number] / [id number] / Kit Neurostimulator Octrode L60 Cm Percutaneous 8 Electrode Lead - [id number] - [id number] Implanted:Qty: 1 on 06/22/2017 by Brice Eisenberg MD at [facility] N/A: Back [employer] 05/24/2019 [id number] / [id number] / [place] Lead Eduardo-Lock - [id number] Implanted:Qty: 2 on 06/22/2017 by Brice Eisenberg MD at [facility] N/A: Back [employer] 05/18/2019 1192 / / [id number] Generator Neurostimulator Proclaim Elite Thk13.4 Mm 5 In W49.5 Mm X H55.5 Mm Spinal Cord Implantable Pulse - [id number] - [id number] Implanted:Qty: 1 on 06/22/2017 by Brice Eisenberg MD at [facility] N/A: Back [employer] 05/02/2019 3660ANS / [id number] / [employer] V[employer] System Closure Repair Femoral Artery Suture Mediated Perclose Prostyle 47234-83 - [id number] Implanted:Qty: 1 on 11/16/2023 by Emilio Leggett MD at [facility] [employer] 07/29/2025 1 27707-01 [id number] [employer] Vascular System Closure Repair Femoral Artery Suture Mediated Perclose Prostyle 81849-53 - [id number] Implanted:Qty: 1 on 11/16/2023 by Emilio Leggett MD at [facility] [employer] 07/29/2025 1 27707-01 [id number] [place] Vascular System Closure Repair Femoral Artery Suture Mediated Perclose Prostyle 26022-74 - [id number] Implanted:Qty: 1 on 11/16/2023 by Emilio Leggett MD at [facility] Vascular 07/29/2025 1 2773-03 / / [id number] [place] Vascular Percutaneous Transcatheter Amplatzer Amulet 22mm 7-Rbd2-010-022 - [id number] Implanted:Qty: 1 on 11/16/2023 by Emilio Leggett MD at [facility] Vascular 11/29/2027 9 -ACP2-00 7-022 / [id number] Procedures Procedure Name Priority Date/Time Associated Diagnosis Comments DEVICE CHECK - REMOTE Routine 05/29/2024 7:20 AM STRIPPER PRELIMINARY PAF (paroxysmal atrial fibrillation) (CMS/HCC) (HCC) DEVICE CHECK - REMOTE Routine 05/02/2024 10:21 AM STRIPPER PRELIMINARY PAF (paroxysmal atrial fibrillation) (CMS/HCC) (HCC) from Last 3 Months Results * DEVICE CHECK - REMOTE (05/29/2024 7:20 AM STRIPPER PRELIMINARY) Anatomical Region Laterality Modality Other Narrative 06/14/2024 9:16 AM STRIPPER PRELIMINARY [employer] LNQ22 Loop Recorder. Dx; Syncope, Afib. DOI 08/08/2022-[place]. [facility] remote monitoring. Routine ILR remote. Normal device function. Battery function-Good. Presenting rhythm: VS, regular 60 bpm. Medications: ASA 81 mg, Toprol-XL, Lipitor. Patient has a left atrial appendage occlusion device. Counters since last scheduled transmission on 04/15/2024. --32 Tachy egm's Afib with RVR, couplets, and triplets. --0 Adrren --0 Pause --0 Symptom --9 AF egm's Afib. AF [place] 1.9%. See scanned report. [facility] remote f/u 07/08/2024. Annie Lew, RN Emilio Leggett MD CV CARDIAC SERVICES PROCEDURES F inal Result * DEVICE CHECK - REMOTE (05/02/2024 10:21 AM STRIPPER PRELIMINARY) Anatomical Region Laterality Modality Other Narrative 05/24/2024 10:29 AM STRIPPER PRELIMINARY [employer] LNQ22 Loop Recorder. Dx; Syncope, Afib. DOI 08/08/2022-Chris. [facility] remote monitoring. Routine ILR remote. Normal device function. Battery function-Good. Presenting rhythm: VS, regular 130 bpm. Medications: ASA 81 mg, Toprol-XL, Lipitor. Patient has a left atrial appendage occlusion device. Counters since last scheduled transmission on 02/26/2024. --48 Tachy egm's Afib with RVR. --0 Darren --0 Pause --0 Symptom --27 AF egm's Afib. AF [place] 2.3%. See scanned report. [facility] remote f/u 05/27/2024. Annie Lew RN Emilio Leggett MD CV CARDIAC SERVICES PROCEDURES F inal Result from Last 3 Months Insurance MEDICARE SOLUTIONS MEDICARE SOLUTIONS MEDICARE SOLUTIONS Care Teams Craft Worker Relationship Specialty Start Date End Date Gadiel Zavala MD [address] [address] PCP - General 06/13/16 Lyudmila Knox, RN Registered Nurse 04/14/17 Jennifer Escalona, RN Registered Nurse 05/10/17
--- OUTSIDE RECORDS SUMMARY | 2024-06-24 18:48 | XMS_ITS | Clinical Summary ---
Author Organization [facility] Address [address] [place] [address] Phone Care Team Providers Care Canvas Cutter Name Role Phone Gadiel Zavala MD [...] topic Insurance MEDICARE C AETNA Care Teams Canvas Cutter Relationship Specialty Start Date End Date Gadiel Zavala MD [address] [address] PCP - General Family Medicine 02/09/17
--- OUTSIDE RECORDS SUMMARY | 2024-06-24 18:48 | XMS_ITS | Clinical Summary ---
Author Organization [facility] Address [address] [facility] [place] [address] Care Team Providers Care Photograph Tinter Name Role Phone Gadiel Zavala MD Primary Care Provider [phone] Source Comments [facility],non-owned Affiliates and Associated Physician Practices is amultiple site organization consisting of ambulatory clinics and hospital sitesin [place], [place], [place] and [place]. This disclosure is being madepursuant to the Care Everywhere program and may not contain all information available regarding this patient. Last updated 18.[facility] Allergies Active Allergy Reactions Criticality Noted Date [...] age to complete this topic Care Teams Photograph Tinter Relationship Specialty Start Date End Date Gadiel Zavala MD [address] [place] [address] PCP - General 02/15/21
--- OUTSIDE RECORDS SUMMARY | 2024-06-24 18:48 | XMS_ITS | Clinical Summary ---
Author Organization [facility] Address [address] [place] [address] Phone Care Team Providers Care Machinery Erector Name Role Phone Gadiel Zavala MD Primary Care Provider [phone] Allergies Active Allergy Reactions Criticality Noted Date [...] tablet Take 50 mcg by mouth daily branch employment coordinator. Active atorvastatin (LIPITOR) 20 mg tablet Take [...] mouth daily. Active naloxone (NARCAN) 4 mg/spray [place], Non-Aerosol EMERGENCY USE ONLY: Administer 1 spray [...] Comments Blood Pressure 122/80 06/14/2022 10:12 AM HEDGE FUND ACCOUNTANT Pulse 57 06/14/2022 10:12 AM HEDGE FUND ACCOUNTANT Temperature 36.7 C (98.1 F) 02/05/2021 5:04 PM CDT Respiratory Rate 16 02/05/2021 5:04 PM CDT Oxygen Saturation 99% 02/05/2021 5:04 PM CDT Inhaled Oxygen Concentration - - Weight 57.4 kg (126 lb 8 oz) 06/14/2022 10:12 AM HEDGE FUND ACCOUNTANT Height 152.4 cm (5') 06/14/2022 10:12 AM HEDGE FUND ACCOUNTANT Body Mass Index 24.71 06/14/2022 10:12 AM HEDGE FUND ACCOUNTANT Plan of Treatment Health Maintenance Due Date [...] 01/26/2021, 2016 Medical Devices Implanted Type Area Head Filter Tank Tender Helper Device Identifier Shelf Expiration Date Model / Serial / Lot Spacer Bio Avs C-Plg 6mm 4d [id number] - [id number] Implanted:Qt y: 1 on 02/16/2017 by Mylene Gutierrez MD at [facility] Biological N/A: Spine Cervical Anterior OMARI- SPINE 09/12/2020 [id number] / [id number] / Description:All Omari spac er plugs and other spinal hardware was processed on requisition,[id number] Plate Aviator 1lvl 12mm [id number] - [id number] Implanted:Qt y: 1 on 02/16/2017 by Mylene Gutierrez MD at [facility] Plate N/A: Spine Cervical Anterior OMARI- SPINE [id number] / STERILIZED 02/16/2017 / LOAD24 Screw [address] 4.0x14mm [id number] - [id number] Implanted:Qt y: 4 on 02/16/2017 by Mylene Gutierrez MD at [facility] Screw N/A: Spine Cervical Anterior OMARI- SPINE [id number] / STERILIZED 02/16/2017 / LOAD24 Sealant Floseal 10ml [id number] - [id number] Implanted:Qt y: 1 on 02/16/2017 by Mylene Gutierrez MD at [facility] Sealant N/A: Spine Cervical Anterior CHERRY- BIOSCIENCE [id number] 03/16/2018 [id number] / / [id number] Cages In Back Explanted Type Area Head Filter Tank Tender Helper Device Identifier Shelf Expiration Date Model / Serial / Lot Spinal Cord Generator And Leads Explanted:Qty: 1 on 11/16/2017 by Mylene Gutierrez MD at [facility] Lead N/A: Back Insurance Advance Directives For more information, please contact: [phone] * Full Code (Latest Code Status on [...] 12:48 PM 11/16/2017 12:50 PM Care Teams Machinery Erector Relationship Specialty Start Date End Date Gadiel Zavala MD [address] [place] [address] PCP - General Family Practice 03/03/17
--- OUTSIDE RECORDS SUMMARY | 2024-06-24 18:48 | XMS_ITS | Referral Summary ---
Author Organization [facility] Address [address] [place] [address] Care Team Providers Care Letterer Name Role Phone Gadiel Zavala MD Primary Care Provider [phone] Source Comments [facility],non-owned Affiliates and Associated Physician Practices is amultiple site organization consisting of ambulatory clinics and hospital sitesin [place], [place], [place] and [place]. This disclosure is being madepursuant to the Care Everywhere program and may not contain all information available regarding this patient. Last updated 18.[facility] Allergies Active Allergy Reactions Criticality Noted Date [...] of Treatment Not on file Care Teams Letterer Relationship Specialty Start Date End Date Gadiel Zavala MD [address] [place] [address] PCP - General 02/15/21
--- OUTSIDE RECORDS SUMMARY | 2024-06-24 18:48 | XMS_ITS | Patient Health Summary ---
Author Organization [facility] Address [address] [facility] [place] [address] Care Team Providers Care Special Deputy Sheriff Name Role Phone Gadiel Zavala MD Primary Care Provider [phone] Note from [facility],non-owned Affiliates and Associated Physician Practices is amultiple site organization consisting of ambulatory clinics and hospital sitesin [place], [place], [place] and [place]. This disclosure is being madepursuant to the Care Everywhere program and may not contain all information available regarding this patient. Last updated 18.[facility] Allergies * Adhesive Sensitivity(Rash) -Medium Criticality [...] 6 hours as needed for Pain * kkmoqhis-yyonjsyud-umuyjrmv (Maxitrol) ophthalmic suspension(Started 02/01/2022) Instill 1 (one) [...] 1:37 PM CDT) Narrative Chrzanowski, Henrietta D, TELECOMMUNICATIONS OFFICER-AUTOMOBILE AND PROPERTY UNDERWRITER - 02/01/2022 1:37 PM CDT Henrietta Balbuena [...] AM CDT) Case Report Dermatopathology Report Case: [id number] Authorizing Provider: Angie Fortune DO Collected: 08/05/2020 03:33 AM Ordering Location: [facility] DermPath Lab Received: 08/06/2020 07:28 AM Pathologist: Radha Mcfarland MD Specimens: A) - Skin, left abdomen B) - Skin, right inner upper arm 4:26 PM [facility] DERMATOPATHOLOGY LABORATORY Final Diagnosis Specimen A. SKIN, left abdomen: SEBORRHEIC KERATOSIS, IRRITATED AND INFLAMED (L82.0) Specimen B. SKIN, right inner upper arm: SOLAR LENTIGO, IRRITATED (L81.4) (see microscopic description) 4:26 PM [facility] DERMATOPATHOLOGY LABORATORY Clinical History A: ISK R/O NMSC. B: LENT R/O atypia. 4:26 PM [facility] DERMATOPATHOLOGY LABORATORY Gross Description Specimen A: Received is one formalin filled container labeled with the patient's name and designated left abdomen. The specimen consists of a shave measuring 21j4n3aj. Jar 0. Specimen B: Received is one formalin filled container labeled with the patient's name and designated right inner upper arm. The specimen consists of a shave measuring 65j3p7za. Jar 0. 4:26 PM [facility] DERMATOPATHOLOGY LABORATORY Microscopic Description Specimen A. SKIN, [...] Dr. Danielle Montenegro, who agrees. 4:26 PM [facility] DERMATOPATHOLOGY LABORATORY Disclaimer An external and internal positive and negative controls are appropriate for the histochemical, immunohistochemical and immunofluorescence stain(s) in this case (if any), except where stated explicitly. The performance characteristics of the stain(s) cited in this report were developed and its performance characteristic determined by the Dermatopathology Laboratory at [facility], directed by Dr. Luis Montenegro. These tests need not be, and therefore are not, approved by the [place] Food and Drug Administration. The tests are used for clinical purposes. Billing Codes Specimen Charges Stain Charges 13863 24237 1 1 90905 1 1 4:26 PM CDT DERMATOPATHOLOGY LABORATORY Embedded Images 4:26 PM CDT DERMATOPATHOLOGY LABORATORY Pathology/Cytology TISSUE SPECIMEN FROM SKIN / Unknown 08/05/2020 3:33 AM CDT 08/06/2020 7:28 AM CDT Miscellaneous samples (specimen) TISSUE SPECIMEN FROM SKIN / Unknown 08/05/2020 3:33 AM CDT 08/06/2020 7:28 AM CDT Angie Fortune DO LAB - PATHOLOGY/C YTOLOGY ORDERABLES DERMATOPATHOLOGY LABORATORY [facility] - Department of Dermatology [facility] [address] [place] [address], [address] [phone] Care Teams Special Deputy Sheriff Relationship Specialty Start Date End Date Gadiel Zavala MD [address] [facility] [address] [address] PCP - General 02/15/21
--- OUTSIDE RECORDS SUMMARY | 2024-06-24 19:25 | XMS_ITS | Clinical Summary ---
Author Organization [facility] Address [address] [place] [address] Care Team Providers Care Natural Sciences Department Chair Name Role Phone Gadiel Zavala MD Primary Care Provider [phone] Lyudmila Knox RN Unavailable Unavailable Jennifer Escalona [...] Loop Recorder. Dx; Syncope, Afib. DOI 08/08/2022-Chris. [facility] remote monitoring. Amulet placed 11/16/23 Falls [...] Department Care Team Description 05/27/2024 9:15 AM RETAIL SUPPORT ASSOCIATE Ancillary Procedure [facility] Cardiology [address] [place] [address] Status post placement of implantable loop recorder (Primary Dx); PAF (paroxysmal atrial fibrillation) (CMS/HCC) ([facility]); Syncope and collapse 05/02/2024 Orders Only [facility] Cardiology [address] [place] [phone] Emilio Leggett MD Paroxysmal atrial fibrillation (CMS/HCC) ([facility]) (Primary Dx); Status post placement of implantable loop recorder; Syncope, unspecified syncope type 04/15/2024 9:15 AM RETAIL SUPPORT ASSOCIATE Ancillary Procedure [facility] Cardiology [address] [address] Status post placement of implantable [...] = 0.6 oz pur e alcohol) social [employer] Utilities Answer Date Recorded In the past [...] often do you attend chur ch or buddhist services? Never 11/17/2023 Do you belong to any clubs o r organizations such as congregation groups, unions, fraternal or athletic groups, or [...] on file Legal Sex Female 3:22 AM RETAIL SUPPORT ASSOCIATE Gender Identity Not on file Sexual [...] March 2017 Medical Devices Implanted Type Area Chairman Device Identifier Shelf Expiration Date Model / Serial / Lot Cage Cage Back Other Kit Stimulator Octrode L60 Cm Trial Lead Neurostimulator - [id number] Implanted:Qty: 1 on 05/03/2017 by Brice Eisenberg MD at [facility] Physician Office Building 2 [facility] [employer] 3086 / / Kit Stimulator Octrode L60 Cm Trial Lead Neurostimulator - [id number] Implanted:Qty: 1 on 05/03/2017 by Brice Eisenberg MD at [facility] Physician Office Building 2 [employer] 3086 / / Kit Neurostimulator Octrode L60 Cm Percutaneous 8 Electrode Lead - [id number] - [id number] Implanted:Qty: 1 on 06/22/2017 by Brice Eisenberg MD at [facility] N/A: Back [employer] 05/24/2019 [id number] / [id number] / Kit Neurostimulator Octrode L60 Cm Percutaneous 8 Electrode Lead - [id number] - [id number] Implanted:Qty: 1 on 06/22/2017 by Brice Eisenberg MD at [facility] N/A: Back [employer] 05/24/2019 [id number] / [id number] / [place] Lead Eduardo-Lock - [id number] Implanted:Qty: 2 on 06/22/2017 by Brice Eisenberg MD at [facility] N/A: Back [employer] 05/18/2019 1192 / / [id number] Generator Neurostimulator [employer] Elite Thk13.4 Mm 5 In W49.5 Mm X H55.5 Mm Spinal Cord Implantable Pulse - [id number] - [id number] Implanted:Qty: 1 on 06/22/2017 by Brice Eisenberg MD at [facility] N/A: Back [employer] 05/02/2019 3660ANS / [id number] / [employer] Vascular System Closure Repair Femoral Artery Suture Mediated Perclose Prostyle 06198-64 - [id number] Implanted:Qty: 1 on 11/16/2023 by Emilio Leggett MD at [facility] [employer] 07/29/2025 1 [address]-01 [id number] [employer] Vascular System Closure Repair Femoral Artery Suture Mediated Perclose Prostyle 35762-32 - [id number] Implanted:Qty: 1 on 11/16/2023 by Emilio Leggett MD at [facility] [employer] 07/29/2025 1 27[address]-01 [id number] [place] Vascular System Closure Repair Femoral Artery Suture Mediated Perclose Prostyle 71021-67 - [id number] Implanted:Qty: 1 on 11/16/2023 by Emilio Leggett MD at [facility] Vascular 07/29/2025 1 2773-03 / / [id number] [place] [employer] Percutaneous Transcatheter Amplatzer Amulet 22mm 3-Nci6-214-022 - [id number] Implanted:Qty: 1 on 11/16/2023 by Emilio Leggett MD at [facility] Vascular 11/29/2027 9 -ACP2-00 7-022 / [id number] Procedures Procedure Name Priority Date/Time Associated Diagnosis Comments DEVICE CHECK - REMOTE Routine 05/29/2024 7:20 AM RETAIL SUPPORT ASSOCIATE PAF (paroxysmal atrial fibrillation) (CMS/HCC) (HCC) DEVICE CHECK - REMOTE Routine 05/02/2024 10:21 AM RETAIL SUPPORT ASSOCIATE PAF (paroxysmal atrial fibrillation) (CMS/HCC) (HCC) from Last 3 Months Results * DEVICE CHECK - REMOTE (05/29/2024 7:20 AM RETAIL SUPPORT ASSOCIATE) Anatomical Region Laterality Modality Other Narrative 06/14/2024 9:16 AM RETAIL SUPPORT ASSOCIATE [employer] LNQ22 Loop Recorder. Dx; Syncope, Afib. DOI 08/08/2022-[place]. [facility] remote monitoring. Routine ILR remote. Normal device function. Battery function-Good. Presenting rhythm: VS, regular 60 bpm. Medications: ASA 81 mg, Toprol-XL, Lipitor. Patient has a left atrial appendage occlusion device. Counters since last scheduled transmission on 04/15/2024. --32 Tachy egm's Afib with RVR, couplets, and triplets. --0 Darren --0 Pause --0 Symptom --9 AF egm's Afib. AF [place] 1.9%. See scanned report. [facility] remote f/u 07/08/2024. Annie Lew, RN Emilio Leggett MD CV CARDIAC SERVICES PROCEDURES F inal Result * DEVICE CHECK - REMOTE (05/02/2024 10:21 AM RETAIL SUPPORT ASSOCIATE) Anatomical Region Laterality Modality Other Narrative 05/24/2024 10:29 AM RETAIL SUPPORT ASSOCIATE [employer] LNQ22 Loop Recorder. Dx; Syncope, Afib. DOI 08/08/2022-Chris. [facility] remote monitoring. Routine ILR remote. Normal device function. Battery function-Good. Presenting rhythm: VS, regular 130 bpm. Medications: ASA 81 mg, Toprol-XL, Lipitor. Patient has a left atrial appendage occlusion device. Counters since last scheduled transmission on 02/26/2024. --48 Tachy egm's Afib with RVR. --0 Darren --0 Pause --0 Symptom --27 AF egm's Afib. AF [place] 2.3%. See scanned report. [facility] remote f/u 05/27/2024. Annie Lew RN Emilio Leggett MD CV CARDIAC SERVICES PROCEDURES F inal Result from Last 3 Months Insurance MEDICARE SOL[facility] Address: [facility] [address] [place] [address] MEDICARE SOLUTIONS MEDICARE SOLUTIONS Care Teams Natural Sciences Department Chair Relationship Specialty Start Date End Date Gadiel Zavala MD [address] [address] PCP - General 06/13/16 Lyudmila Knox, RN Registered Nurse 04/14/17 Jennifer Escalona, RN Registered Nurse 05/10/17
--- OUTSIDE RECORDS SUMMARY | 2024-06-24 19:25 | XMS_ITS | Clinical Summary ---
Author Organization [facility] Address [address] [place] [address] Phone Care Team Providers Care Marble Ceiling Installer Name Role Phone Gadiel Zavala MD [...] topic Insurance MEDICARE C AETNA Care Teams Marble Ceiling Installer Relationship Specialty Start Date End Date Gadiel Zavala MD [address] [address] PCP - General Family Medicine 02/09/17
--- OUTSIDE RECORDS SUMMARY | 2024-06-24 19:25 | XMS_ITS | Referral Summary ---
Author Organization [facility] Address [address] [place] [address] Care Team Providers Care [place] Leverman Name Role Phone Gadiel Zavala MD Primary Care Provider [phone] Lyudmila Knox RN Unavailable Unavailable Jennifer Escalona RN Unavailable Agustina vailable Encounters Date Type Department Care Team Description 05/27/2024 9:15 AM RESIDENTIAL PEST CONTROL TECHNICIAN Ancillary Procedure [facility] Cardiology [address] [place] [phone] Status post placement of implantable loop recorder (Primary Dx); PAF (paroxysmal atrial fibrillation) ([facility]/HCC) ([facility]); Syncope and collapse 05/02/2024 Orders Only [facility] Cardiology [address] [place] [phone] Emilio Leggett MD Paroxysmal atrial fibrillation ([facility]/HCC) ([facility]) (Primary Dx); Status post placement of implantable loop recorder; Syncope, unspecified syncope type 04/15/2024 9:15 AM RESIDENTIAL PEST CONTROL TECHNICIAN Ancillary Procedure [facility] Cardiology [address] [place] [phone] Status post placement of implantable loop [...] implantable loop record er 08/09/2022 Overview (11/24/2023): [employer] LNQ22 Loop Recorder. Dx; Syncope, Afib. DOI [...] often do you attend chur ch or protestant services? Never 11/17/2023 Do you belong to any clubs o r organizations such as buddhist groups, unions, fraternal or athletic groups, or [...] any time in the past 12 m [facility], were you homeless or living in a [facility] (including now)? No 11/17/2023 Personal Safety Answer Date Recorded Have you ever been in or are you currently in a harmful physical or emotional relationship or is someone making you feel afraid or unsafe? Denies 02/08/2024 Comments No Sex and Gender Information Value Date Recorded Sex Assigned at Not on file Legal Sex Female 3:22 AM RESIDENTIAL PEST CONTROL TECHNICIAN Gender Identity Not on file Sexual [...] March 2017 Medical Devices Implanted Type Area Outside Residential Sales Professional Device Identifier Shelf Expiration Date Model / Serial / Lot Cage Cage Back Other Kit Stimulator Octrode L60 Cm Trial Lead Neurostimulator - [id number] Implanted:Qty: 1 on 05/03/2017 by Brice Eisenberg MD at [facility] Physician [facility] Building [address] [employer] 3086 / / Kit Stimulator Octrode L60 Cm Trial Lead Neurostimulator - [id number] Implanted:Qty: 1 on 05/03/2017 by Brice Eisenberg MD at [facility] Building [address] [employer] 3086 / / Kit Neurostimulator Octrode L60 Cm Percutaneous 8 Electrode Lead - [id number] - [id number] Implanted:Qty: 1 on 06/22/2017 by Brice Eisenberg MD at [facility] N/A: Back [employer] 05/24/2019 [id number] / [id number] / Kit Neurostimulator Octrode L60 Cm Percutaneous 8 Electrode Lead - [id number] - [id number] Implanted:Qty: 1 on 06/22/2017 by Brice Eisenberg MD at [facility] N/A: Back [employer] 05/24/2019 [id number] / [id number] / Frost Lead Eduardo-Lock - [id number] Implanted:Qty: 2 on 06/22/2017 by Brice Eisenberg MD at [facility] N/A: Back [employer] 05/18/2019 [id number] / / [id number] Generator Neurostimulator Proclaim Elite Thk13.4 Mm 5 In W49.5 Mm X H55.5 Mm Spinal Cord Implantable Pulse - [id number] - [id number] Implanted:Qty: 1 on 06/22/2017 by Brice Eisenberg MD at [facility] N/A: Back [employer] 05/02/2019 [id number] / [id number] / [employer] System Closure Repair Femoral Artery Suture Mediated Perclose Prostyle 18059-88 - [id number] Implanted:Qty: 1 on 11/16/2023 by Emilio Leggett MD at [facility] [employer] 07/29/2025 1 277- / [id number] [employer] System Closure Repair Femoral Artery Suture Mediated Perclose Prostyle 95152-73 - [id number] Implanted:Qty: 1 on 11/16/2023 by Emilio Leggett MD at [facility] 07/29/2025 1 277- [id number] [employer] System Closure Repair Femoral Artery Suture Mediated Perclose Prostyle 93736-32 - [id number] Implanted:Qty: 1 on 11/16/2023 by Emilio Leggett MD at [facility] 07/29/2025 1 [id number] [employer] Percutaneous Transcatheter Amplatzer Amulet 22mm 7-[id number] - [id number] Implanted:Qty: 1 on 11/16/2023 by Emilio Leggett MD at [facility] 11/29/2027 9 -ACP2-00 7-022 / / [id number] Procedures Procedure Name Priority Date/Time Associated Diagnosis Comments DEVICE CHECK - REMOTE Routine 05/29/2024 7:20 AM RESIDENTIAL PEST CONTROL TECHNICIAN PAF (paroxysmal atrial fibrillation) (CMS/HCC) (HCC) DEVICE CHECK - REMOTE Routine 05/02/2024 10:21 AM RESIDENTIAL PEST CONTROL TECHNICIAN PAF (paroxysmal atrial fibrillation) (CMS/HCC) (HCC) from Last 3 Months Results * DEVICE CHECK - REMOTE (05/29/2024 7:20 AM RESIDENTIAL PEST CONTROL TECHNICIAN) Anatomical Region Laterality Modality Other Narrative 06/14/2024 9:16 AM RESIDENTIAL PEST CONTROL TECHNICIAN Med[employer]onic LNQ22 Loop Recorder. Dx; Syncope, Afib. DOI 08/08/2022-[place]. [facility] remote monitoring. Routine ILR remote. Normal device function. Battery function-Good. Presenting rhythm: VS, regular 60 bpm. Medications: ASA 81 mg, Toprol-XL, Lipitor. Patient has a left atrial appendage occlusion device. Counters since last scheduled transmission on 04/15/2024. --32 Tachy egm's Afib with RVR, couplets, and triplets. --0 Darren --0 Pause --0 Symptom --9 AF egm's Afib. AF [place] 1.9%. See scanned report. [facility] remote f/u 07/08/2024. Annie Lew RN Emilio Leggett MD [facility] C[facility] SERVICES PROCEDURES F inal Result * DEVICE CHECK - REMOTE (05/02/2024 10:21 AM RESIDENTIAL PEST CONTROL TECHNICIAN) Anatomical Region Laterality Modality Other Narrative 05/24/2024 10:29 AM RESIDENTIAL PEST CONTROL TECHNICIAN 21GRAMS LNQ22 Loop Recorder. Dx; Syncope, Afib. DOI 08/08/2022-[place]. [facility] remote monitoring. Routine ILR remote. Normal device function. Battery function-Good. Presenting rhythm: VS, regular 130 bpm. Medications: ASA 81 mg, Toprol-XL, Lipitor. Patient has a left atrial appendage occlusion device. Counters since last scheduled transmission on 02/26/2024. --48 Tachy egm's Afib with RVR. --0 Darren --0 Pause --0 Symptom --27 AF egm's Afib. AF [place] 2.3%. See scanned report. [facility] remote f/u 05/27/2024. Annie Lew RN Emilio Leggett MD CV CARDIAC SERVICES PROCEDURES F inal Result from Last 3 Months Insurance MEDICARE [facility] MED[facility] Address: [address] [address] [place] [address] MEDICARE [facility] MEDIC[facility] Address: [address] [address] [place] [address] MEDICARE [facility] MEDIC[facility] Address: [address] [address] [place] [address] Care Teams [place] Relationship Specialty Start Date End Date Gadiel Zavala MD [address] [address] PCP - General 06/13/16 Lyudmila Knox, RN Registered Nurse 04/14/17 Jennifer Escalona, RN Registered Nurse 05/10/17
--- OUTSIDE RECORDS SUMMARY | 2024-06-24 19:25 | XMS_ITS | Continuity of Care Document ---
Author Organization [facility] Address [address] [place] [address] Phone Care Team Providers Care Help Desk Representative Name Role Phone Jorge Cevallos Unavailable Unavailable Procedures Procedure Date No Charge Glasses Check Office/outpatient Visit, Est Refraction Eye Exam & Treatment Refraction Advance Directives Directive Yes / No Effective Date File Name No Information Encounters Encounter Description Practice Location Reason(s) For Visit Diagnoses Date Provider Providers Copied on Encounter [facility], [address] [place] [address] [address], [place], [place], [id number], tel:[phone] [facility] No Information 0 Ban Patel. [address] [facility] , [address], [place], [place], [facility], [place]. tel:[phone] Office/outpat ient Visit, Est [facility], [address] [place] [address] [address], [place], [place], [id number], [place] tel:[phone] [facility] No Information [address] Ban Patel. [address] [facility] , [address], [place], [address], [place]. tel:[phone] [facility], [address] [place] [address] [address], [place], [place], [id number], tel:[phone] [facility] No Information [address] Ban Patel. [address] [facility] , [address], [place], [address], [place]. tel:[phone] Family History Family Member Type Diagnosis Age [...]
--- OUTSIDE RECORDS SUMMARY | 2024-06-24 19:25 | XMS_ITS | Clinical Summary ---
Author Organization [facility] Address [address] [facility] [place] [place] [address] Care Team Providers Care Road Oiler Name Role Phone Gadiel Zavala MD Primary Care Provider [phone] Source Comments [facility],non-owned Affiliates and Associated Physician Practices is amultiple site organization consisting of ambulatory clinics and hospital sitesin [place], [place], [place] and [place]. This disclosure is being madepursuant to the Care Everywhere program and may not contain all information available regarding this patient. Last updated 18.[facility] Allergies Active Allergy Reactions Criticality Noted Date [...] age to complete this topic Care Teams Road Oiler Relationship Specialty Start Date End Date Gadiel Zavala MD [address] [place] [address] PCP - General 02/15/21
--- OUTSIDE RECORDS SUMMARY | 2024-06-24 19:25 | XMS_ITS | Patient Health Summary ---
Author Organization [facility] Address [address] [facility] [place] [address] Care Team Providers Care Electroplater Apprentice Name Role Phone Gadiel Zavala MD Primary Care Provider [phone] Note from [facility],non-owned Affiliates and Associated Physician Practices is amultiple site organization consisting of ambulatory clinics and hospital sitesin [place], [place], [place] and [place]. This disclosure is being madepursuant to the Care Everywhere program and may not contain all information available regarding this patient. Last updated 18.[facility] Allergies * Adhesive Sensitivity(Rash) -Medium Criticality [...] 6 hours as needed for Pain * xnxesfmv-owsbiwymf-mvukjnbs (Maxitrol) ophthalmic suspension(Started 02/01/2022) Instill 1 (one) [...] 1:37 PM CDT) Narrative Chrzanowski, Henrietta D, DEALER SALES MANAGER-SAW REPAIRER - 02/01/2022 1:37 PM CDT Henrietta Balbuena [...] AM CDT) Case Report Dermatopathology Report Case: [id number] Authorizing Provider: Angie Fortune DO Collected: 08/05/2020 03:33 AM Ordering Location: [facility] Received: 08/06/2020 07:28 AM Pathologist: Radha Mcfarland MD Specimens: A) - Skin, left abdomen B) - Skin, right inner upper arm 4:26 PM [facility]ER[facility]OLOGY [facility]OR[facility] Final Diagnosis Specimen A. SKIN, left abdomen: SEBORRHEIC KERATOSIS, IRRITATED AND INFLAMED (L82.0) Specimen B. SKIN, right inner upper arm: SOLAR LENTIGO, IRRITATED (L81.4) (see microscopic description) 4:26 PM [facility] Clinical History A: ISK R/O NMSC. B: LENT R/O atypia. 4:26 PM [facility] Gross Description Specimen A: Received is one formalin filled container labeled with the patient's name and designated left abdomen. The specimen consists of a shave measuring 27r3p8kf. Jar 0. Specimen B: Received is one formalin filled container labeled with the patient's name and designated right inner upper arm. The specimen consists of a shave measuring 95w7i8ag. Jar 0. 4:26 PM [facility] DERMATOPATHOLOGY [facility]OR[facility] Microscopic Description Specimen A. [...] Dr. Danielle Montenegro, who agrees. 4:26 PM [facility] Disclaimer An external and internal positive and negative controls are appropriate for the histochemical, immunohistochemical and immunofluorescence stain(s) in this case (if any), except where stated explicitly. The performance characteristics of the stain(s) cited in this report were developed and its performance characteristic determined by the Dermatopathology Laboratory at [facility], directed by Dr. Luis Montenegro. These tests need not be, and therefore are not, approved by the [place] Food and Drug Administration. The tests are used for clinical purposes. Billing Codes Specimen Charges Stain Charges 32505 67682 1 1 62819 1 1 4:26 PM CDT DERMATOPATHOLOGY LABORATORY Embedded Images 4:26 PM CDT DERMATOPATHOLOGY LABORATORY Pathology/Cytology TISSUE SPECIMEN FROM SKIN / Unknown 08/05/2020 3:33 AM CDT 08/06/2020 7:28 AM CDT Miscellaneous samples (specimen) TISSUE SPECIMEN FROM SKIN / Unknown 08/05/2020 3:33 AM CDT 08/06/2020 7:28 AM CDT Angie Fortune DO LAB - PATHOLOGY/C YTOLOGY ORDERABLES DERMATOPATHOLOGY LABORATORY [facility] - Department of Dermatology [facility] Specialized Medicine [address] [place] [address], [address] [phone] Care Teams Electroplater Apprentice Relationship Specialty Start Date End Date Gadiel Zavala MD [address] [facility] [address] [address] PCP - General 02/15/21
--- OUTSIDE RECORDS SUMMARY | 2024-06-24 19:25 | XMS_ITS | Referral Summary ---
Author Organization [facility] Address [address] [facility] [place] [address] Care Team Providers Care Watchguard Name Role Phone Gadiel Zavala MD Primary Care Provider [phone] [facility],non-owned Affiliates and Associated Physician Practices is amultiple site organization consisting of ambulatory clinics and hospital sitesin [place], [place], [place] and [place]. This disclosure is being madepursuant to the Care Everywhere program and may not contain all information available regarding this patient. Last updated 18.[facility] Allergies Active Allergy Reactions Criticality Noted Date [...] of Treatment Not on file Care Teams Watchguard Relationship Specialty Start Date End Date Gadiel Zavala MD [address] [place] [address] PCP - General 02/15/21
--- OUTSIDE RECORDS SUMMARY | 2024-06-24 19:25 | XMS_ITS ---
Author Organization [facility] Address [address] [place] [address] Care Team Providers Care Tobacco Educator Name Role Phone Gadiel Zavala MD Primary Care Provider [phone] Lyudmila Knox RN Unavailable Unavailable Jennifer Escalona [...]
--- OUTSIDE RECORDS SUMMARY | 2024-06-24 19:25 | XMS_ITS | Clinical Summary ---
Author Organization [facility] Address [address] [place] [address] Phone Care Team Providers Care Creamery Worker Name Role Phone Gadiel Zavala MD Primary Care Provider [phone] Allergies Active Allergy Reactions Criticality Noted Date [...] tablet Take 50 mcg by mouth daily flight attendant. Active atorvastatin (LIPITOR) 20 mg tablet Take [...] mouth daily. Active naloxone (NARCAN) 4 mg/spray [place], Non-Aerosol EMERGENCY USE ONLY: Administer 1 spray [...] Comments Blood Pressure 122/80 06/14/2022 10:12 AM DYE TUB OPERATOR Pulse 57 06/14/2022 10:12 AM DYE TUB OPERATOR Temperature 36.7 C (98.1 F) 02/05/2021 5:04 PM CDT Respiratory Rate 16 02/05/2021 5:04 PM CDT Oxygen Saturation 99% 02/05/2021 5:04 PM CDT Inhaled Oxygen Concentration - - Weight 57.4 kg (126 lb 8 oz) 06/14/2022 10:12 AM DYE TUB OPERATOR Height 152.4 cm (5') 06/14/2022 10:12 AM DYE TUB OPERATOR Body Mass Index 24.71 06/14/2022 10:12 AM DYE TUB OPERATOR Plan of Treatment Health Maintenance Due Date [...] 01/26/2021, 2016 Medical Devices Implanted Type Area Retread Technician Device Identifier Shelf Expiration Date Model / Serial / Lot Spacer Bio Avs C-Plg 6mm 4d [id number] - [id number] Implanted:Qt y: 1 on 02/16/2017 by Mylene Gutierrez MD at [facility] Biological N/A: Spine Cervical Anterior OMARI- SPINE 09/12/2020 [id number] / [id number] / Description:All Omari spac er plugs and other spinal hardware was processed on requisition,[id number] Plate Aviator 1lvl 12mm [id number] - [id number] Implanted:Qt y: 1 on 02/16/2017 by Mylene Gutierrez MD at [facility] Plate N/A: Spine Cervical Anterior OMARI- SPINE [id number] / STERILIZED 02/16/2017 / LOAD24 Screw [address]tr [address] 4.0x14mm [id number] - [id number] Implanted:Qt y: 4 on 02/16/2017 by Mylene Gutierrez MD at [facility] Screw N/A: Spine Cervical Anterior OMARI- SPINE [id number] / STERILIZED 02/16/2017 / LOAD24 Sealant Floseal 10ml [id number] - [id number] Implanted:Qt y: 1 on 02/16/2017 by Mylene Gutierrez MD at [facility] Sealant N/A: Spine Cervical Anterior CHERRY- BIOSCIENCE [id number] 03/16/2018 [id number] / / [id number] Cages In Back Explanted Type Area Retread Technician Device Identifier Shelf Expiration Date Model / Serial / Lot Spinal Cord Generator And Leads Explanted:Qty: 1 on 11/16/2017 by Mylene Gutierrez MD at [facility] Lead N/A: Back Insurance Advance Directives For more information, please contact: [phone] * Full Code (Latest Code Status on [...] 12:48 PM 11/16/2017 12:50 PM Care Teams Creamery Worker Relationship Specialty Start Date End Date Gadiel Zavala MD [address] [place] [address] PCP - General Family Practice 03/03/17
== END 2024-06-24 20:03 | disposition home or self-care (01) ==
PROVIDERS: Emergency Provider Physician Assistant; PCP Family Medicine
DX: S20.211A Contusion of right front wall of thorax, initial encounter (principal); S50.02XA Contusion of left elbow, initial encounter; S80.02XA Contusion of left knee, initial encounter; I48.0 Paroxysmal atrial fibrillation; I10 Essential (primary) hypertension; E53.8 Deficiency of other specified B group vitamins; E55.9 Vitamin D deficiency, unspecified; E78.2 Mixed hyperlipidemia; E03.9 Hypothyroidism, unspecified; K21.9 Gastro-esophageal reflux disease without esophagitis; K44.9 Diaphragmatic hernia without obstruction or gangrene; M19.90 Unspecified osteoarthritis, unspecified site; G62.9 Polyneuropathy, unspecified; W01.198A Fall on same level from slipping, tripping and stumbling with subsequent striking against other object, initial encounter; N32.81 Overactive bladder; F32.A Depression, unspecified; Z98.1 Arthrodesis status; Z87.440 Personal history of urinary (tract) infections; Z85.038 Personal history of other malignant neoplasm of large intestine; Z90.49 Acquired absence of other specified parts of digestive tract; Z87.891 Personal history of nicotine dependence; Z79.82 Long term (current) use of aspirin; Z79.899 Other long term (current) drug therapy
CPT/HCPCS: 71101; 73080; 73564; 99284

== ENCOUNTER 2024-07-03 13:40 | Outpatient (CLI) | payer MEDICARE, SELFPAY ==
--- NOTE | ~2024-07-03 | MMUS_ITS ---
EXAMINATION: MM diagnostic germain RT w katie, US breast RT limited HISTORY: Right breast mass TECHNIQUE: Additional 3-D tomosynthesis images of the right breast were performed and synthetic 2-D i mages were generated. CAD analysis was submitted and interpreted. High resolution limited right breas t ultrasound was performed. COMPARISON: 06/14/2024, 05/10/2023, 01/24/2022, 01/20/2021, 11/21/2019 BREAST PARENCHYMAL COMPOSITION:Not Dense. The breasts are almost entirely fatty FINDINGS: MAMMOGRAPHIC FINDINGS: Spot compression view confirms the round lesion at the posterior, lower right breast, measuring 6 mm. Review of prior exams demonstrates that on the 2019 exam, this was marked as a skin lesion. Lesion i s less dense on the current spot views then the most recent screening views. ULTRASOUND: No sonographic correlate for lesion seen. IMPRESSION: No evidence for malignancy. 6 mm posterior right breast mass is most compatible with skin lesion, es pecially in conjunction with prior exam. BI-RADS Category 2: Benign finding(s). Reviewed, dictated and finalized at location M. ER GLUE JOINTER FEEDBACK IMPRESSION: No evidence for malignancy. 6 mm posterior right breast mass is most compatibl e with skin lesion, especially in conjunction with prior exam. BI-RADS Category 2: Benign finding(s).
--- OUTSIDE RECORDS SUMMARY | 2024-07-03 15:10 | XMS_ITS | Clinical Summary ---
Author Organization [facility] Address [address] [place] [address] Care Team Providers Care Cna Pct Name Role Phone Gadiel Zavala MD Primary Care Provider [phone] Lyudmila Knox RN Unavailable Unavailable Jennifer Escalona [...] tablet by mouth once daily 90 tablet 1 06/26/19 25 Active losartan (COZAAR) 25 mg tabletIndicatio ns:Essential hypertension Take 1 tablet by mouth once daily 90 tablet 04/02/20 24 025 Discontinued Active Problems Problem Noted Date Diagnosed [...] hyperlipidemia 03/29/2022 Fall 03/01/2022 Paroxysmal atrial fibrillation 12/01/2021 Colon cancer 09/15/2021 Overview (10/24/2023): Patient reported - diagnosis [...] Department Care Team Description 05/27/2024 9:15 AM BELT AND LINK ASSEMBLY SUPERVISOR Ancillary Procedure [facility] Cardiology [address] [place] [address] Status post placement of implantable loop recorder (Primary Dx); PAF (paroxysmal atrial fibrillation) (HCC); Syncope and collapse 05/02/2024 Orders Only [facility] Cardiology [address] [place] [address] [address] [place] [phone] Emilio Leggett MD Paroxysmal atrial fibrillation (HCC) (Primary Dx); Status post placement of implantable loop recorder; Syncope, unspecified syncope type 04/15/2024 9:15 AM BELT AND LINK ASSEMBLY SUPERVISOR Ancillary Procedure [facility] Cardiology [address] [place] [address] [place] [phone] Status post placement of implantable loop recorder (Primary Dx); PAF (paroxysmal atrial fibrillation) (HCC); Syncope and collapse from Last 3 Months Surgical History Surgery Date Site/Laterality Comments ANTERIOR FUSION CERVICAL SPINE x2 HYSTERECTOMY SPINE SURGERY lumbar COLON SURGERY 07/30/2021 - 08/28/2021 BIMEDIAL RECTUS RECESSION WITH DOWNWARD TRANSPOSITION CATARACT EXTRACTION, BILATERAL COLONOSCOPY EYE SURGERY Bilateral x4, attempted to fix double vision (unsuccessful) Medical History Medical History Date Comments Awareness under anesthesia Hypertension Hyperlipidemia Chronic back pain Neuropathy GERD (gastroesophageal reflux disease) Hypothyroidism Depression Anemia Arthritis PONV (postoperative nausea and vomiting) Atrial fibrillation (HCC) Cancer (HCC) colon Peptic ulceration Hx of migraines [...] = 0.6 oz pur e alcohol) social [employer] Utilities Answer Date Recorded In the past 12 months has e electric, gas, oil, or water [employer] threatened to shut off services in your [...] often do you attend chur ch or shinto services? Never 11/17/2023 Do you belong to [...] the past 12 m [facility], were you homeless or living in a senior care (including now)? No 11/17/2023 Personal Safety Answer Date Recorded Have you ever been in or are you currently in a harmful physical or emotional relationship or is someone making you feel afraid or unsafe? Denies 02/08/2024 Comments No Sex and Gender Information Value Date Recorded Sex Assigned at Not on file Legal Sex Female 3:22 AM BELT AND LINK ASSEMBLY SUPERVISOR Gender Identity Not on file Sexual [...] 2013 Depression Screening 10/17/2018 10/17/2017 Covid-19 Vaccine (2023-2 5 season) 2023 09/15/2021, 01/22/2021, 07/22/2020, Additional [...] March 2017 Medical Devices Implanted Type Area Milk Condenser Device Identifier Shelf Expiration Date Model / Serial / Lot Cage Cage Back Other Kit Stimulator Octrode L60 Cm Trial Lead Neurostimulator - [id number] Implanted:Qty: 1 on 05/03/2017 by Brice Eisenberg MD at [facility] Phys[facility] Building [address] [employer] 3086 / / Kit Stimulator Octrode L60 Cm Trial Lead Neurostimulator - [id number] Implanted:Qty: 1 on 05/03/2017 by Brice Eisenberg MD at [facility] Building [address] [employer] 3086 / / Kit Neurostimulator Octrode L60 Cm Percutaneous 8 Electrode Lead - [id number] - [id number] Implanted:Qty: 1 on 06/22/2017 by Brice Eisenberg MD at [facility] N/A: Back [employer] 05/24/2019 [id number] / [id number] / Kit Neurostimulator Octrode L60 Cm Percutaneous 8 Electrode Lead - [id number] - [id number] Implanted:Qty: 1 on 06/22/2017 by Brice Eisenberg MD at [facility] N/A: Back [employer] 05/24/2019 [id number] / [id number] / Emery Lead Eduardo-Lock - [id number] Implanted:Qty: 2 on 06/22/2017 by Brice Eisenberg MD at [facility] N/A: Back [employer] 05/18/2019 1192 / / [id number] Generator Neurostimulator Proclaim Elite Thk13.4 Mm 5 In W49.5 Mm X H55.5 Mm Spinal Cord Implantable Pulse - [id number] - [id number] Implanted:Qty: 1 on 06/22/2017 by Brice Eisenberg MD at [facility] N/A: Back [employer] 05/02/2019 3660ANS / [id number] / [employer] System Closure Repair Femoral Artery Suture Mediated Perclose Prostyle 20021-09 - [id number] Implanted:Qty: 1 on 11/16/2023 by Emilio Leggett MD at [facility] [employer] 07/29/2025 1 27707-01 [id number] [employer] System Closure Repair Femoral Artery Suture Mediated Perclose Prostyle 98705-43 - [id number] Implanted:Qty: 1 on 11/16/2023 by Emilio Leggett MD at [facility] [employer] 07/29/2025 1 27707-01 [id number] [employer] System Closure Repair Femoral Artery Suture Mediated Perclose Prostyle 64549-55 - [id number] Implanted:Qty: 1 on 11/16/2023 by Emilio Leggett MD at [facility] 07/29/2025 1 2773- [id number] [place] [employer] Percutaneous Transcatheter Amplatzer Amulet 22mm 3-Bil2-576-022 - [id number] Implanted:Qty: 1 on 11/16/2023 by Emilio Leggett MD at [facility] 11/29/2027 9 -ACP2-00 7-022 / [id number] Procedures Procedure Name Priority Date/Time Associated Diagnosis Comments DEVICE CHECK - REMOTE Routine 05/29/2024 7:20 AM BELT AND LINK ASSEMBLY SUPERVISOR PAF (paroxysmal atrial fibrillation) (HCC) DEVICE CHECK - REMOTE Routine 05/02/2024 10:21 AM BELT AND LINK ASSEMBLY SUPERVISOR PAF (paroxysmal atrial fibrillation) (HCC) from Last 3 Months Results * DEVICE CHECK - REMOTE (05/29/2024 7:20 AM BELT AND LINK ASSEMBLY SUPERVISOR) Anatomical Region Laterality Modality Other Narrative 06/14/2024 9:16 AM BELT AND LINK ASSEMBLY SUPERVISOR [employer] LNQ22 Loop Recorder. Dx; Syncope, Afib. DOI 08/08/2022-[place]. [facility] remote monitoring. Routine ILR remote. Normal device function. Battery function-Good. Presenting rhythm: VS, regular 60 bpm. Medications: ASA 81 mg, Toprol-XL, Lipitor. Patient has a left atrial appendage occlusion device. Counters since last scheduled transmission on 04/15/2024. --32 Tachy egm's Afib with RVR, couplets, and triplets. --0 Darren --0 Pause --0 Symptom --9 AF egm's Afib. AF [place] 1.9%. See scanned report. [facility] remote f/u 07/08/2024. Annie Lew, RN us Emilio Leggett MD CV CARDIAC SERVICES PROCEDURES F inal Result * DEVICE CHECK - REMOTE (05/02/2024 10:21 AM BELT AND LINK ASSEMBLY SUPERVISOR) Anatomical Region Laterality Modality Other Narrative 05/24/2024 10:29 AM BELT AND LINK ASSEMBLY SUPERVISOR [employer] LNQ22 Loop Recorder. Dx; Syncope, Afib. DOI 08/08/2022-[place]. [facility] remote monitoring. Routine ILR remote. Normal device function. Battery function-Good. Presenting rhythm: VS, regular 130 bpm. Medications: ASA 81 mg, Toprol-XL, Lipitor. Patient has a left atrial appendage occlusion device. Counters since last scheduled transmission on 02/26/2024. --48 Tachy egm's Afib with RVR. --0 Darren --0 Pause --0 Symptom --27 AF egm's Afib. AF [place] 2.3%. See scanned report. [facility] remote f/u 05/27/2024. Annie Lew RN Emilio Leggett MD CV CARDIAC SERVICES PROCEDURES F inal Result from Last 3 Months Insurance MEDICARE SOLUTIONS [facility] MEDICARE Address: [facility] [address] [place] [address] MEDICARE SOLUTIONS MEDICARE SOLUTIONS Care Teams Cna Pct Relationship Specialty Start Date End Date Gadiel Zavala MD [address] [address] PCP - General 06/13/16 Lyudmila Knox, RN Registered Nurse 04/14/17 Jennifer Escalona, RN Registered Nurse 05/10/17
--- OUTSIDE RECORDS SUMMARY | 2024-07-03 15:10 | XMS_ITS | Continuity of Care Document ---
Author Organization [facility] Address [address] [place] [address] Phone Care Team Providers Care Machine Set Up Technician Name Role Phone Jorge Cevallos Unavailable Unavailable Procedures Procedure Date No Charge Glasses Check Office/outpatient Visit, Est Refraction Eye Exam & Treatment Refraction Advance Directives Directive Yes / No Effective Date File Name No Information Encounters Encounter Description Practice Location Reason(s) For Visit Diagnoses Date Provider Providers Copied on Encounter [facility], [address] [place] [address] [address], [place], [place], [id number], [place] tel:[phone] [facility] No Information 0 Ban Patel. [address] , [address], [place], [place], [facility], [place]. tel:[phone] Office/outpat ient Visit, Est [facility], [address] [place] [address] [address], [place], [place], [id number], [place] tel:[phone] [facility] No Information [address] Ban Patel. [address] , [address], [place], [address], [place]. tel:[phone] [facility], [address] [place] [address] [address], [place], [place], [id number], tel:[phone] [facility] No Information [address] Ban Patel. [address] , [address], [place], [address], [place]. tel:[phone] Family History Family Member Type Diagnosis Age [...]
--- OUTSIDE RECORDS SUMMARY | 2024-07-03 15:10 | XMS_ITS ---
Author Organization [facility] Address [address] [place] [address] Care Team Providers Care Boiler/Chiller Technician Name Role Phone Gadiel Zavala MD Primary Care Provider [phone] Lyudmila Knox RN Unavailable Unavailable Jennifer Escalona [...]
--- OUTSIDE RECORDS SUMMARY | 2024-07-03 15:10 | XMS_ITS | Referral Summary ---
Author Organization [facility] Address [address] [place] [address] Care Team Providers Care Complex Human Resources Manager Name Role Phone Gadiel Zavala MD Primary Care Provider [phone] Lyudmila Knox RN Unavailable Unavailable Jennifer Escalona RN Unavailable Agustina vailable Encounters Date Type Department Care Team Description 05/27/2024 9:15 AM PRINT LINE OPERATOR Ancillary Procedure [facility] Cardiology [address] [place] [phone] Status post placement of implantable loop recorder (Primary Dx); PAF (paroxysmal atrial fibrillation) (HCC); Syncope and collapse 05/02/2024 Orders Only [facility] Cardiology [address] [place] [phone] Emilio Leggett MD Paroxysmal atrial fibrillation (HCC) (Primary Dx); Status post placement of implantable loop recorder; Syncope, unspecified syncope type 04/15/2024 9:15 AM PRINT LINE OPERATOR Ancillary Procedure [facility] Cardiology [address] [place] [phone] Status post placement of implantable loop [...] implantable loop record er 08/09/2022 Overview (11/24/2023): [employer] LNQ22 Loop Recorder. Dx; Syncope, Afib. DOI 08/08/2022-[place]. [facility] remote monitoring. Amulet placed 11/16/23 Falls [...] = 0.6 oz pur e alcohol) social [employer] Utilities Answer Date Recorded In the past [...] often do you attend chur ch or adventism services? Never 11/17/2023 Do you belong to any clubs o r organizations such as faith groups, unions, fraternal or athletic groups, or [...] on file Legal Sex Female 3:22 AM PRINT LINE OPERATOR Gender Identity Not on file Sexual [...] March 2017 Medical Devices Implanted Type Area Booth Operator Device Identifier Shelf Expiration Date Model / Serial / Lot Cage Cage Back Other Kit Stimulator Octrode L60 Cm Trial Lead Neurostimulator - [id number] Implanted:Qty: 1 on 05/03/2017 by Brice Eisenberg MD at [facility] [address] [employer] 3086 / / Kit Stimulator Octrode L60 Cm Trial Lead Neurostimulator - [id number] Implanted:Qty: 1 on 05/03/2017 by Brice Eisenberg MD at [facility] Building [address] [employer] 3086 / / Kit Neurostimulator Octrode L60 Cm Percutaneous 8 Electrode Lead - [id number] - [id number] Implanted:Qty: 1 on 06/22/2017 by Brice Eisenberg MD at [facility] N/A: Back [employer] 05/24/2019 [id number] / [id number] / Kit Neurostimulator Octrode L60 Cm Percutaneous 8 Electrode Lead - [id number] - [id number] Implanted:Qty: 1 on 06/22/2017 by Brice Eisenberg MD at [facility] N/A: Back [employer] 05/24/2019 [id number] / [id number] / [place] Lead Eduardo-Lock - [id number] Implanted:Qty: 2 on 06/22/2017 by Brice Eisenberg MD at [facility] N/A: Back [employer] 05/18/2019 1192 / / [id number] Generator Neurostimulator Proclaim Elite Thk13.4 Mm 5 In W49.5 Mm X H55.5 Mm Spinal Cord Implantable Pulse - Oztt352.1 - [id number] Implanted:Qty: 1 on 06/22/2017 by Brice Eisenberg MD at [facility] N/A: Back [employer] 05/02/2019 3660ANS / [id number] / [employer] System Closure Repair Femoral Artery Suture Mediated Perclose Prostyle 27054-29 - [id number] Implanted:Qty: 1 on 11/16/2023 by Emilio Leggett MD at [facility] [employer] 07/29/2025 1 2773-03 / / [id number] [employer] System Closure Repair Femoral Artery Suture Mediated Perclose Prostyle 64319-73 - [id number] Implanted:Qty: 1 on 11/16/2023 by Emilio Leggett MD at [facility] [employer] 07/29/2025 1 2773- / / [id number] [employer] System Closure Repair Femoral Artery Suture Mediated Perclose Prostyle 60668-77 - [id number] Implanted:Qty: 1 on 11/16/2023 by Emilio Leggett MD at [facility] 07/29/2025 1 2773- / / [id number] [place] [employer] Percutaneous Transcatheter Amplatzer Amulet 22mm 2-Kng5-326-022 - [id number] Implanted:Qty: 1 on 11/16/2023 by Emilio Leggett MD at [facility] 11/29/2027 9 -ACP2-00 7-022 / / [id number] Procedures Procedure Name Priority Date/Time Associated Diagnosis Comments DEVICE CHECK - REMOTE Routine 05/29/2024 7:20 AM PRINT LINE OPERATOR PAF (paroxysmal atrial fibrillation) (HCC) DEVICE CHECK - REMOTE Routine 05/02/2024 10:21 AM PRINT LINE OPERATOR PAF (paroxysmal atrial fibrillation) (HCC) from Last 3 Months Results * DEVICE CHECK - REMOTE (05/29/2024 7:20 AM PRINT LINE OPERATOR) Anatomical Region Laterality Modality Other Narrative 06/14/2024 9:16 AM PRINT LINE OPERATOR [employer] LNQ22 Loop Recorder. Dx; Syncope, Afib. DOI 08/08/2022-[place]. [facility] remote monitoring. Routine ILR remote. Normal device function. Battery function-Good. Presenting rhythm: VS, regular 60 bpm. Medications: ASA 81 mg, Toprol-XL, Lipitor. Patient has a left atrial appendage occlusion device. Counters since last scheduled transmission on 04/15/2024. --32 Tachy egm's Afib with RVR, couplets, and triplets. --0 Darren --0 Pause --0 Symptom --9 AF egm's Afib. AF [place] 1.9%. See scanned report. [facility] remote f/u 07/08/2024. Annie Lew RN Emilio Leggett MD CV CARDIAC SERVICES PROCEDURES F inal Result * DEVICE CHECK - REMOTE (05/02/2024 10:21 AM PRINT LINE OPERATOR) Anatomical Region Laterality Modality Other Narrative 05/24/2024 10:29 AM PRINT LINE OPERATOR [employer] LNQ22 Loop Recorder. Dx; Syncope, Afib. DOI 08/08/2022-[place]. [facility] remote monitoring. Routine ILR remote. Normal device function. Battery function-Good. Presenting rhythm: VS, regular 130 bpm. Medications: ASA 81 mg, Toprol-XL, Lipitor. Patient has a left atrial appendage occlusion device. Counters since last scheduled transmission on 02/26/2024. --48 Tachy egm's Afib with RVR. --0 Darren --0 Pause --0 Symptom --27 AF egm's Afib. AF [place] 2.3%. See scanned report. [facility] remote f/u 05/27/2024. Annie Lew RN Emilio Leggett MD CV CARDIAC SERVICES PROCEDURES F inal Result from Last 3 Months Insurance MEDICARE SOLUTIONS [place] [id number] MEDICARE SOLUTIONS MEDICARE [employer] Care Teams Complex Human Resources Manager Relationship Specialty Start Date End Date Gadiel Zavala MD [address] [place] [phone] PCP - General 06/13/16 Lyudmila Knox, RN Registered Nurse 04/14/17 Jennifer Escalona, RN Registered Nurse 05/10/17
--- OUTSIDE RECORDS SUMMARY | 2024-07-03 15:10 | XMS_ITS | Clinical Summary ---
Author Organization [facility] Address [address] [place] [address] Phone Care Team Providers Care Pharmaceutical Plant Operator Name Role Phone Gadiel Zavala MD [...] topic Insurance MEDICARE C [employer] Care Teams Pharmaceutical Plant Operator Relationship Specialty Start Date End Date Gadiel Zavala MD [address] [address] PCP - General Family Medicine 02/09/17
--- OUTSIDE RECORDS SUMMARY | 2024-07-03 15:10 | XMS_ITS | Patient Health Summary ---
Author Organization [facility] Address [address] [facility] [place] [address] Care Team Providers Care Leno Sewer Name Role Phone Gadiel Zavala MD Primary Care Provider [phone] [facility],non-owned Affiliates and Associated Physician Practices is amultiple site organization consisting of ambulatory clinics and hospital sitesin [place], [place], [place] and [place]. This disclosure is being madepursuant to the Care Everywhere program and may not contain all information available regarding this patient. Last updated 18.[facility] Allergies * Adhesive Sensitivity(Rash) -Medium Criticality * [...] 6 hours as needed for Pain * jzdyhsln-dwhbyfxxb-cpdbkkxv (Maxitrol) ophthalmic suspension(Started 02/01/2022) Instill 1 (one) [...] 1:37 PM CDT) Narrative Chrzanowski, Henrietta D, DOCUMENT RESTORER-CAR TRIMMER - 02/01/2022 1:37 PM CDT Henrietta Balbuena [...] AM CDT) Case Report Dermatopathology Report Case: [id number] Authorizing Provider: Angie Fortune DO Collected: 08/05/2020 03:33 AM Ordering Location: [facility] Derm[facility] Lab Received: 08/06/2020 07:28 AM Pathologist: Radha Mcfarland MD Specimens: A) - Skin, left abdomen B) - Skin, right inner upper arm 4:26 PM [facility] Final Diagnosis Specimen A. SKIN, left abdomen: SEBORRHEIC KERATOSIS, IRRITATED AND INFLAMED (L82.0) Specimen B. SKIN, right inner upper arm: SOLAR LENTIGO, IRRITATED (L81.4) (see microscopic description) 4:26 PM [facility] Clinical History A: ISK R/O NMSC. B: LENT R/O atypia. 4:26 PM [facility] Gross Description Specimen A: Received is one formalin filled container labeled with the patient's name and designated left abdomen. The specimen consists of a shave measuring [id number]. Jar 0. Specimen B: Received is one formalin filled container labeled with the patient's name and designated right inner upper arm. The specimen consists of a shave measuring [id number]. Jar 0. 4:26 PM [facility] Microscopic Description Specimen A. SKIN, [...] Dr. Danielle Montenegro, who agrees. 4:26 PM [facility] Disclaimer An external and internal positive and negative controls are appropriate for the histochemical, immunohistochemical and immunofluorescence stain(s) in this case (if any), except where stated explicitly. The performance characteristics of the stain(s) cited in this report were developed and its performance characteristic determined by the Dermatopathology Laboratory at [facility], directed by Dr. Luis Montenegro. These tests need not be, and therefore are not, approved by the [place] Food and Drug Administration. The tests are used for clinical purposes. Billing Codes Specimen Charges Stain Charges 91308 91781 1 1 77374 1 1 4:26 PM [facility] Embedded Images 4:26 PM [facility] DERMATOPATHOLOGY LABORATORY Pathology/Cytology TISSUE SPECIMEN FROM SKIN / Unknown 08/05/2020 3:33 AM CDT 08/06/2020 7:28 AM CDT Miscellaneous samples (specimen) TISSUE SPECIMEN FROM SKIN / Unknown 08/05/2020 3:33 AM CDT 08/06/2020 7:28 AM CDT Angie Fortune DO LAB - PATHOLOGY/C YTOLOGY ORDERABLES DERMATOPATHOLOGY LABORATORY [facility] - Department of Dermatology [facility] Specialized Medicine [address] [place] [address], [address] [phone] Care Teams Leno Sewer Relationship Specialty Start Date End Date Gadiel Zavala MD [address] [facility] [address] [address] PCP - General 02/15/21
--- OUTSIDE RECORDS SUMMARY | 2024-07-03 15:10 | XMS_ITS | Clinical Summary ---
Author Organization [facility] [employer] Address [address] [place] [address] Care Team Providers Care Climate Change Risk Assessor Name Role Phone Gadiel Zavala MD Primary Care Provider [phone] Source Comments [facility] [employer],non-owned Affiliates and Associated Physician Practices is amultiple site organization consisting of ambulatory clinics and hospital sitesin [place], [place], [place] and [place]. This disclosure is being madepursuant to the Care Everywhere program and may not contain all information available regarding this patient. Last updated 18.[facility] [employer] Allergies Active Allergy Reactions Criticality Noted Date [...] age to complete this topic Care Teams Climate Change Risk Assessor Relationship Specialty Start Date End Date Gadiel Zavala MD [address] [place] [address] PCP - General 02/15/21
--- OUTSIDE RECORDS SUMMARY | 2024-07-03 15:10 | XMS_ITS | Clinical Summary ---
Author Organization [facility] Address [address] [place] [address] Phone Care Team Providers Care Guest Services Representative Name Role Phone Gadiel Zavala MD Primary Care Provider [phone] Allergies Active Allergy Reactions Criticality Noted Date [...] tablet Take 50 mcg by mouth daily beer maker. Active atorvastatin (LIPITOR) 20 mg tablet Take [...] mouth daily. Active naloxone (NARCAN) 4 mg/spray [place], Non-Aerosol EMERGENCY USE ONLY: Administer 1 spray [...] Comments Blood Pressure 122/80 06/14/2022 10:12 AM STUDIO ASSISTANT Pulse 57 06/14/2022 10:12 AM STUDIO ASSISTANT Temperature 36.7 C (98.1 F) 02/05/2021 5:04 PM CDT Respiratory Rate 16 02/05/2021 5:04 PM CDT Oxygen Saturation 99% 02/05/2021 5:04 PM CDT Inhaled Oxygen Concentration - - Weight 57.4 kg (126 lb 8 oz) 06/14/2022 10:12 AM STUDIO ASSISTANT Height 152.4 cm (5') 06/14/2022 10:12 AM STUDIO ASSISTANT Body Mass Index 24.71 06/14/2022 10:12 AM STUDIO ASSISTANT Plan of Treatment Health Maintenance Due Date Last Done Comments DTAP/TDAP/TD VACCINES (1 - Tdap) 07/22/1967 COLORECTAL SCREENING 1993 Colorectal Cancer Screening 1993 FIT-DNA Q 3 years 1993 FIT/FOBT Q 1 year 1993 Flex Sig/CT Colonography Q 5 years 1993 PNEUMOCOCCAL VACCINE 50+ YEA RS (1 of 1 - PCV) 1998 ZOSTER VACCINE (1 of 2) 1998 OSTEOPOROSIS SCREENING 2013 RSV VACCINE (60+ or ) (1 - 1-dose 75+ series) 07/22/2023 INFLUENZA VACCINE (#1) 2023 01/26/2021, 2016 Medical Devices Implanted Type Area Gardening Manager Device Identifier Shelf Expiration Date Model / Serial / Lot Spacer Bio Avs C-Plg 6mm 4d [id number] - [id number] Implanted:Qt y: 1 on 02/16/2017 by Mylene Gutierrez MD at [facility] Biological N/A: Spine Cervical Anterior OMARI- SPINE 09/12/2020 [id number] / [id number] / Description:All Omari spac er plugs and other spinal hardware was processed on requisition,[id number] Plate Aviator 1lvl 12mm [id number] - [id number] Implanted:Qt y: 1 on 02/16/2017 by Mylene Gutierrez MD at [facility] Plate N/A: Spine Cervical Anterior OMARI- SPINE [id number] / STERILIZED 02/16/2017 / LOAD24 Screw Avtr Va St 4.0x14mm [id number] - [id number] Implanted:Qt y: 4 on 02/16/2017 by Mylene Gutierrez MD at [facility] Screw N/A: Spine Cervical Anterior OMARI- SPINE [id number] / STERILIZED 02/16/2017 / LOAD24 Sealant Floseal 10ml [id number] - [id number] Implanted:Qt y: 1 on 02/16/2017 by Mylene Gutierrez MD at [facility] Sealant N/A: Spine Cervical Anterior CHERRY- BIOSCIENCE [id number] 03/16/2018 [id number] / / [id number] [id number] In Back Explanted Type Area Gardening Manager Device Identifier Shelf Expiration Date Model / Serial / Lot Spinal Cord Generator And Leads Explanted:Qty: 1 on 11/16/2017 by Mylene Gutierrez MD at [facility] Lead N/A: Back Insurance Advance Directives For more information, please contact: [phone] * Full Code (Latest Code Status on [...] 12:48 PM 11/16/2017 12:50 PM Care Teams Guest Services Representative Relationship Specialty Start Date End Date Gadiel Zavala MD [address] [place] [address] PCP - General Family Practice 03/03/17
--- OUTSIDE RECORDS SUMMARY | 2024-07-03 15:10 | XMS_ITS | Referral Summary ---
Author Organization [facility] [email or web address] Address [address] [place] [address] Care Team Providers Care Pepper Cutter Name Role Phone Gadiel Zavala MD Primary Care Provider [phone] Source Comments [facility],non-owned Affiliates and Associated Physician Practices is amultiple site organization consisting of ambulatory clinics and hospital sitesin [place], [place], [place] and [place]. This disclosure is being madepursuant to the Care Everywhere program and may not contain all information available regarding this patient. Last updated 18.[facility] [email or web address] Allergies Active Allergy Reactions Criticality Noted Date [...] of Treatment Not on file Care Teams Pepper Cutter Relationship Specialty Start Date End Date Gadiel Zavala MD [address] [place] [address] PCP - General 02/15/21
== END 2024-07-03 13:41 | disposition home or self-care (01) ==
PROVIDERS: PCP Family Medicine; Visit Provider Family Medicine
DX: N63.14 Unspecified lump in the right breast, lower inner quadrant (principal)
CPT/HCPCS: 76642; 77061; 77065; G0279

== ENCOUNTER 2024-09-06 09:59 | Outpatient (CLI) | payer MEDICARE, SELFPAY ==
--- NOTE | ~2024-09-06 | XR_ITS ---
3 VIEWS LUMBAR SPINE Ordering provider: Sagar Perez MD History: . M47.817 - Spondylosis without myelopathy or radiculopathy... . Comparison: January 18, 2022 FINDINGS: VERTEBRAL BODIES:Minimal anterolisthesis at the level of L5-S1. Minimal retrolisthesis at the level o f L2-L3. No visible fracture or subluxation. Postoperative changes at the level of L3, L4, L5 and S1 . Vertebroplasty in L1. DISK SPACES: Disc spacers seen at the level of L3-L4, L4-L5 and L5-S1. SOFT TISSUES: Normal. IMPRESSION: No acute osseous abnormality lumbar spine. Postoperative changes. Reviewed, dictated and finalized at location A.
--- NOTE | ~2024-09-06 | XR_ITS ---
AP view of the pelvis and AP and lateral views of the bilateral hips Clinical history: Pain Findings: No acute fracture or dislocation is seen. Osseous alignment is anatomic. Lumbosacral spinal fixation hardware present. Bilateral hip and SI joint spaces are preserved. Soft tissues are unremar kable. Impression: No significant abnormality is seen. Reviewed, dictated and finalized at location . Impression: No significant abnormality is seen.
--- NOTE | ~2024-09-06 | MR_ITS ---
MRI of the lumbar spine Clinical History: Radiculopathy Technique: Axial T2-weighted images, and sagittal T1-weighted, T2-weighted, and T2 fat-sat images wer e acquired. Findings: There is moderate to severe compression fracture deformity of L1, with vertebroplasty cemen t present. No acute fracture seen. There is 5 mm retrolisthesis of L2 over L3. There is posterior and interbody fusion from L3 through S1, with bilateral rods, transpedicular screws, and disc fusion cag es present. There is underlying 7 mm anterolisthesis of L5 over S1. No acute bone marrow signal reali ty seen. At L1-L2, there is severe degenerative disc narrowing. There is mild disc bulge with moderate to adva nced facet arthropathy. No central canal stenosis. There is severe right neural foraminal narrowing, and moderate left neural foraminal narrowing. At L2-L3, there is severe degenerative disc narrowing. Disc bulge and severe facet arthropathy are pr esent, with severe spinal canal stenosis/thecal sac compression. There is severe bilateral neural for aminal compromise. At L3-L4, there is posterior decompression. No canal stenosis. There is advanced left neural foramina l narrowing, and moderate right neural foraminal narrowing. At L4-L5, there is posterior decompression, and no canal stenosis. Neural foramina are preserved. At L5-S1, there is posterior decompression. No canal stenosis. Neural foramina are preserved. Paravertebral soft tissues are unremarkable aside from expected postoperative change. Impression: Severe degenerative spondylosis at L2-L3, with severe neural foraminal narrowing and canal stenosis/t hecal sac compression at this level. Moderate to advanced degenerative spondylosis at L1-L2, as detailed above. 5 mm retrolisthesis of L2 over L3. 7 mm anterolisthesis of L5 over S1. Chronic L1 compression fracture with vertebroplasty cement. Posterior and interbody fusion from L3 through S1, as detailed above. Reviewed, dictated and finalized at [facility]. Impression: Severe degenerative spondylosis at L2-L3, with severe neural foraminal narrowin g and canal stenosis/thecal sac compression at this level. Moderate to advanced degenerative spondylosis at L1-L2, as detailed above. 5 mm retrolisthesis of L2 over L3. 7 mm anterolisthesis of L5 over S1. Chronic L1 compression fracture with vertebroplasty cement. Posterior and interbody fusion from L3 through S1, as detailed above.
--- NOTE | ~2024-09-06 | XR_ITS ---
XR sacroiliac joints min 3V Ordering provider: Sagar Perez MD History: . M46.1 - Sacroiliitis, not elsewhere classified . Comparison: None. FINDINGS: BONES: No acute fracture or dislocation. Postoperative changes in the spine. JOINTS: The bilateral sacroiliac joint spaces are preserved.. No bony fusion of the sacroiliac joints or bony erosions. Bilateral mild osteoarthritic changes SOFT TISSUES: Unremarkable. IMPRESSION: NO ACUTE OSSEOUS ABNORMALITY. NORMAL SACROILIAC JOINTS. Reviewed, dictated and finalized at location A.
== END 2024-09-06 10:00 | disposition home or self-care (01) ==
PROVIDERS: PCP Family Medicine; Visit Provider Anesthesiology Pain Medicine
DX: M46.1 Sacroiliitis, not elsewhere classified (principal); M48.061 Spinal stenosis, lumbar region without neurogenic claudication; M47.817 Spondylosis without myelopathy or radiculopathy, lumbosacral region; G89.29 Other chronic pain; M43.16 Spondylolisthesis, lumbar region; M43.17 Spondylolisthesis, lumbosacral region; S32.010K Wedge compression fracture of first lumbar vertebra, subsequent encounter for fracture with nonunion; X58.XXXS Exposure to other specified factors, sequela; Z98.890 Other specified postprocedural states; M25.552 Pain in left hip; M25.551 Pain in right hip
CPT/HCPCS: 72114; 72148; 72202; 73521

== ENCOUNTER 2024-09-30 00:33 | Day surgery (SDC) | payer MEDICARE, SELFPAY ==
[2024-09-12 13:21] VITALS: BMI 24.2
--- NOTE | 2024-09-12 13:33 | PC.NURSE ---
Report to the Outpatient Waiting Room, entrance under the green pavilion located off [facility], at time __2:30pm ____ on date __09/30/24 . Planned Procedure Time: __3:30pm .? Time changes happen often and if your time is changed the preop area will call you the afternoon before. - You and your visitor will be asked to self-screen and do not enter if you have any COVID symptoms. Please call surgeon if you need to reschedule. - A mask is optional within the hospital at this time. Patients may have Breakfast and Light lunch, and then just clear liquids (water, carbonated beverages, clear teas, apple juice) until 2 hours prior to surgery if needed to take any medication only- Also no smoking, or chewing tobacco (or any form of nicotine). No chewing gum, candy or mints after lunch. Take only the following medications with a SIP of water on the morning of surgery: _Routine Medications ok DO NOT STOP ANY OF YOUR OTHER PRESCRIPTION MEDICATIONS PRIOR TO SURGERY EXCEPT THE FOLLOWING Medications to discontinue per physician Aspirin and NSAIDS for [address] Perez office Date to take last dose___09/22/24 Please no make-up, nail romanian, hairspray, perfume, deodorant, or body powder the day of surgery.? No jewelry (including any body piercings) or valuables the day of surgery, leave them at home.? Please take a shower or bath the night before, or the morning of, surgery with an antibacterial soap.? Wear comfortable, loose fitting clothing.? - Jewelry must be removed prior to entering the operating room.? Rings and piercings that are not removed may be cut off. - The hospital will not accept responsibility for valuables.? - Please leave all valuables, including medications, at home the day of surgery. If you are going home after surgery, a licensed car pick up driver must drive you home.? - NO public transportation without another adult if you receive anesthesia. - We recommend that an adult stay with you for 24 hours following discharge. - We also recommend that you do not drive, make important decision, drink alcoholic beverages, or take any drugs that were not prescribed by your health care provider for at least 24 hours after your discharge time. Follow any additional instructions given to you from your surgeon. Telephone instructions given to __Patient and asked if any additional questions and then verbalized understanding. Patient advised to call surgeon office or pre surgery nurse liaison [phone] if any additional questions.
--- NOTE | ~2024-09-30 | XR_ITS ---
EXAMINATION: XR fluoroscopy no charge DATE: 09/30/2024 14:50 CDT INDICATION: EPI ACCESS SINGLE DOSE OPIOID TRAIL . TECHNIQUE: 3 fluoroscopic images of the thoracolumbar junction were obtained during epidural access f or single dose opioid trial, performed by Sagar Perez MD. I was not present during the procedure . Fluoroscopy exposure time was 26.7 seconds. Air Kerma 11.386 mGy. DAP 2.1802 mGym2. COMPARISON: None FINDINGS/IMPRESSION: Fluoroscopic documentation of epidural access for single dose opioid trial. Please refer to the opera tive note for complete procedural details . Reviewed, dictated and finalized at location K.
--- OUTSIDE RECORDS SUMMARY | 2024-09-30 00:36 | XMS_ITS | Clinical Summary ---
Author Organization [facility] Address [address] [place] [address] Phone Care Team Providers Care Office Systems Technology Instructor Name Role Phone Gadiel Zavala MD Primary [...] topic Insurance MEDICARE C AETNA Care Teams Office Systems Technology Instructor Relationship Specialty Start Date End Date Gadiel Zavala MD [address] [address] PCP - General Family Medicine 02/09/17
--- OUTSIDE RECORDS SUMMARY | 2024-09-30 00:36 | XMS_ITS ---
Author Organization [facility] Address [address] [place] [address] Care Team Providers Care Chinchilla Machine Operator Name Role Phone Gadiel Zavala MD Primary Care Provider [phone] Lyudmila Knox RN Unavailable Unavailable Jennifer Escalona [...]
--- OUTSIDE RECORDS SUMMARY | 2024-09-30 00:36 | XMS_ITS | Clinical Summary ---
Author Organization [facility] Address [address] [place] [address] Care Team Providers Care Stallion Manager Name Role Phone Gadiel Zavala MD Primary Care Provider [phone] Lyudmila Knox RN Unavailable Unavailable Jennifer Escalona [...] by mouth once daily 90 tablet 1 5 Active clopidogreL (PLAVIX) 75 mg tablet Take 1 tablet by mouth once daily 30 tablet 5 Active Active Problems Problem Noted Date Diagnosed Date Presence of Amulet left atrial appendage closure device 11/16/2023 Surgical complication involv ing both eyes, unspecified complication 10/24/2023 Visit for wound check 08/15/2022 Status post placement of implantable loop record er 08/09/2022 Overview (11/24/2023): Medtronic LNQ22 Loop Recorder. Dx; Syncope, Afib. DOI 08/08/2022-[place]. [facility] remote monitoring. Amulet placed 11/16/23 Falls [...] Encounters Date Type Department Care Team Description 09/27/2024 Telephone [facility] Cardiology [address] [place] [address] [place] [address] Emilio Leggett MD 08/19/2024 8:30 AM CDT Ancillary Procedure [facility] Cardiology [address] [place] [address] [address] [facility] [place] [address] Paroxysmal atrial fibrillation (HCC); Status post placement of implantable loop recorder; Syncope, unspecified syncope type 07/08/2024 8:00 AM CDT Ancillary Procedure [facility] Cardiology [address] [phone] Paroxysmal atrial fibrillation (HCC); Status post placement of implantable loop recorder; Syncope, unspecified syncope type from Last 3 [...] = 0.6 oz pur e alcohol) social SDI Utilities Answer Date Recorded In the past 12 months has [employer] electric, gas, oil, or water company threatened [...] 11/17/2023 How often do you attend chur or shinto services? 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 Gender Identity Not on file Sexual Orientation [...] AM CD T Height 160 cm (5' 3) 02/08/2024 9:52 AM CDT Body Mass Index 25.77 02/08/2024 9:52 AM CDT Plan of Treatment Health Maintenance Due Date Last Done Comments Hepatitis C Screening 1950 Osteoporosis Screening-Bone Density Scan 1950 DTaP/Tdap/Td Vaccine (1 - Tdap) 07/22/1959 Hepatitis B Screening 1966 Zoster Vaccine (1 of 2) 1998 Well Visit 65+ 2013 Depression Screening 10/17/2018 10/17/2017 Covid-19 Vaccine ( - 2023-2 5 season) 2023 09/15/2021, 01/22/2021, 07/22/2020, Additional history exists Influenza Vaccine (Season Ended) 2024 02/07/2020, 02/07/2019, 02/01/2018, Additional history exists Fall Risk Assessment 02/07/2025 02/08/2024, 01/02/20 Pneumococcal vaccine 65+ Completed 02/07/2019, 07/2017 Goals Goal Patient Goal Type Associated Problems Recent Progress Patient-Stated? Author Increase physical activity Exercise Lyudmila Shah, RN Note: She is doing arm and leg exercises from Pt. She was in rehab after neck surgery for 2 weeks in March 2017 Medical Devices Implanted Type Area Corporate Strategy Analyst Device Identifier Shelf Expiration Date Model / Serial / Lot Cage Cage Back Other Kit Stimulator Octrode L60 Cm Trial Lead Neurostimulator - [id number] Implanted:Qty: 1 on 05/03/2017 by Brice Eisenberg MD at [facility] [address] [employer] 3086 / / Kit Stimulator Octrode L60 Cm Trial Lead Neurostimulator - [id number] Implanted:Qty: 1 on 05/03/2017 by Birce Eisenberg MD at [facility] [address] [employer] 3086 / / Kit Neurostimulator Octrode L60 Cm Percutaneous 8 Electrode Lead - [id number] - [id number] Implanted:Qty: 1 on 06/22/2017 by Brice Eisenberg MD at [facility] N/A: Back [employer] 05/24/2019 [id number] / [id number] / Kit Neurostimulator Octrode L60 Cm Percutaneous 8 Electrode Lead - [id number] - [id number] Implanted:Qty: 1 on 06/22/2017 by Brice Eisenberg MD at [facility] N/A: Back [employer] 05/24/2019 [id number] / [id number] / [place] Lead Eduardo-Lock - [id number] Implanted:Qty: 2 on 06/22/2017 by Brice Eisenberg MD at [facility] N/A: Back [employer] 05/18/2019 1192 / / [id number] Generator Neurostimulator Proclaim Elite Thk13.4 Mm 5 In W49.5 Mm X H55.5 Mm Spinal Cord Implantable Pulse - [id number] - [id number] Implanted:Qty: 1 on 06/22/2017 by Brice Eisenberg MD at [facility] N/A: Back [employer] 05/02/2019 [id number] / [id number] / [employer] System Closure Repair Femoral Artery Suture Mediated Perclose Prostyle 36608-13 - [id number] Implanted:Qty: 1 on 11/16/2023 by Emilio Leggett MD at [facility] [employer] 07/29/2025 1 [id number] [employer] System Closure Repair Femoral Artery Suture Mediated Perclose Prostyle 16600-13 - [id number] Implanted:Qty: 1 on 11/16/2023 by Emilio Leggett MD at [facility] [employer] 07/29/2025 1 [id number] [employer] System Closure Repair Femoral Artery Suture Mediated Perclose Prostyle 14634-80 - [id number] Implanted:Qty: 1 on 11/16/2023 by Emilio Leggett MD at [facility] [employer] 07/29/2025 1 [id number] [employer] Percutaneous Transcatheter Amplatzer Amulet 22mm [id number] - [id number] Implanted:Qty: 1 on 11/16/2023 by Emilio Leggett MD at [facility] Vascular 11/29/2027 9 -ACP2-00 7 / / [id number] Procedures Procedure Name Priority Date/Time Associated Diagnosis Comments DEVICE CHECK - REMOTE Routine 08/20/2024 10:20 AM CDT Paroxysmal atrial fibrillation (HCC) Status post placement of implantable loop recorder Syncope, unspecified syncope type DEVICE CHECK - REMOTE Routine 07/09/2024 2:44 PM CDT Paroxysmal atrial fibrillation (HCC) Status post placement of implantable loop recorder Syncope, unspecified syncope type from Last 3 Months Results * DEVICE CHECK - REMOTE (08/20/2024 10:20 AM CDT) Anatomical Region Laterality Modality Other Narrative 08/23/2024 10:34 AM CDT Page2Imagestronic LNQ22 Loop Recorder. Dx; Syncope, Afib. DOI 08/08/2022-[place]. [facility]link remote monitoring. Amulet placed 11/16/23 Routine ILR remote. Normal device function. Battery function-good Presenting rhythm: NSR Medications: ASA 81 mg, losartan 25 mg, Toprol-XL 100 mg, Toprol-XL 25 mg Counters since last scheduled transmission on 07/08/24. --9 Tachy - EGMs demonstrate AFib with RVR. The longest episode was 7 minutes and 39 seconds in duration --0 Darren --0 Pause --0 Symptom --18 AF - EGMs demonstrate AFib. Longest episode was 7 hours and 34 minutes. AFib burden 2.1% See scanned report. [facility] remote f/u 09/30/24. Adria Camarena, RN us Emilio Leggett MD [facility] PROCEDURES F inal Result * DEVICE CHECK - REMOTE (07/09/2024 2:44 PM CDT) Anatomical Region Laterality Modality Other Narrative 07/10/2024 2:01 PM CDT Page2Imagestronic LNQ22 Loop Recorder. Dx; Syncope, Afib. DOI 08/08/2022-[place]. [facility]link remote monitoring. Amulet placed 11/16/23 Routine ILR remote. Normal device function. Battery function- good Presenting rhythm: NSR Medications: ASA 81 mg, losartan 25 mg, Toprol-XL 100 mg, Toprol-XL 25 mg, Amulet device placed on 11/16/23 Counters since last scheduled transmission on 05/27/24. -- 88 Tachy - EGM demonstrates AFib with RVR. The longest episode was 1 hour and 5 minutes in duration -- 0 Darren -- 0 Pause -- 0 Symptom -- 38 AF - EGM demonstrates AFib. Longest episode was 2 hours and 44 minutes. AFib burden 3.4% See scanned report. [facility] remote f/u 08/19/24. Adria Camarena, RN Emilio Leggett MD [facility] C[facility] PROCEDURES F inal Result from Last 3 Months Insurance UHC MEDICARE ADVANTAGE UHC MEDICARE ADVANTAGE [facility] MEDICARE ADVANTAGE Care Teams Stallion Manager Relationship Specialty Start Date End Date Gadiel Zavala MD [address] [address] PCP - General 06/13/16 Lyudmila Knox, RN Registered Nurse 04/14/17 Jennifer Escalona, RN Registered Nurse 05/10/17
--- OUTSIDE RECORDS SUMMARY | 2024-09-30 00:36 | XMS_ITS | Clinical Summary ---
Author Organization [facility] Address [address] [place] [address] Care Team Providers Care Applied Anthropologist Name Role Phone Gadiel Zavala MD Primary Care Provider [phone] Source Comments [facility],non-owned Affiliates and Associated Physician Practices is amultiple site organization consisting of ambulatory clinics and hospital sitesin [place], [place], [place] and [place]. This disclosure is being madepursuant to the Care Everywhere program and may not contain all information available regarding this patient. Last updated 18.[facility] Allergies Active Allergy Reactions Criticality Noted Date [...] document. Alwaysverify current medications with the patient. atorvastatin (LIPITOR) 20 MG tablet Take 1 (one) tablet by mouth once daily 2 Active eszopiclone (LUNESTA) 3 MG tablet TAKE 1 TABLET BY MOUTH EVERY DAY AT BEDTIME NEEDED FOR INSOMNIA 2 Active levothyroxine (SYNTHROID) 50 MCG tablet Take 1 (one) tablet by mouth once daily 2 Active omeprazole (PRILOSEC) 40 MG capsule Take 1 (one) capsule by mouth 2 times daily 2 Active VITAMIN E PO Active Xarelto 20 MG tablet TAKE 1 TABLET BY MOUTH ONCE DAILY WITH EVENING MEAL 2 Active oxyCODONE-aceta minophen (Percocet) 5-325 MG tablet Take 1 tablet by mouth every 6 hours as needed for Pain Active neomycin-polymy aparna-dexameth (Maxitrol) ophthalmic suspension Instill 1 (one) drop into both eyes 4 times daily 5 mL 2 Active Additional Information Patient not taking.Reported on 08/02/2023 ketorolac (Toradol) 10 MG tablet Take 1 (one) tablet by mouth every 8 hours as needed for Pain 10 tablet 2 Active Additional Information Patient not taking.Reported on 08/02/2023 losartan (Cozaar) 25 MG tablet 2 Active oxybutynin (Ditropan) 5 MG tablet TAKE [...] for one week, then stop 15 mL 2 Active Additional Information Patient not taking.Reported on 08/02/2023 Ferrous Sulfate (IRON PO) Active aspirin EC (Ecotrin) 81 MG tablet Take 1 (one) tablet by mouth once daily 2 Active clopidogrel (plaVIX) 75 MG tablet Take 1 (one) tablet by mouth once daily 4 Active clotrimazole (Mycelex) 10 MG jose DISSOLVE 1 TABLET BY MOUTH THREE TIMES DAILY 3 Active DULoxetine (Cymbalta) 60 MG capsule Take 1 (one) capsule by mouth 2 times daily 4 Active ferrous sulfate EC (Ferrous Sulfate) 324 (65 Fe) MG tablet Take 1 (one) tablet by mouth once daily 3 Active metroNIDAZOLE (Flagyl) 500 MG tablet Take 1 (one) tablet by mouth 3 times daily For 7 days. 3 Active Myrbetriq 25 MG tablet Take 1 (one) tablet by mouth once daily 4 Active Myrbetriq 50 MG tablet Take 1 (one) tablet by mouth once daily 4 Active nitrofurantoin monohyd macro crystals (Macrobid) 100 MG capsule TAKE 1 CAPSULE BY MOUTH TWICE DAILY FOR 5 DAYS WITH FOOD 4 Active pantoprazole EC (Protonix) 20 MG tablet Take 1 (one) tablet by mouth at bedtime 4 Active tolterodine ER 24hr (Detrol LA) 4 MG capsule Take 1 (one) capsule by mouth once daily 4 Active Selenium 200 MCG Take 200 mcg by mouth Active DULOXETINE HCL PO Take 50 mg by mouth once daily Active Misc Natural Products (NEURIVA PO) Take by mouth. 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 Gender Identity Not on file Sexual [...] 11:09 AM CDT Height 160 cm (5' 3) 02/01/2022 11:09 AM CDT Body Mass Index 20.37 02/01/2022 11:09 AM CDT Plan of Treatment Health Maintenance Due Date Last Done Comments BONE DENSITY TESTING 1950 HEPATITIS C SCREENING 07/17/1966 DTAP/TDAP/TD VACCINES (1 - Tdap) 07/22/1967 PNEUMOCOCCAL VACCINE 50+ (1 of 1 - PCV) 1998 ZOSTER VACCINE (1 of 2) 1998 Respiratory Syncytial Virus (RSV) Vaccine Pt: or over 60 yrs (1 - 1-dose 75+ series) 07/22/2023 COVID-19 VACCINE ( - 2023-2 5 season) 2023 DEPRESSION SCREENING 05/01/2024 MEDICARE AWV CALENDAR YEAR 2024 INFLUENZA VACCINE (Season Ended) 2024 03/01/20 17 HEPATITIS B VACCINE Aged Out No longe r eligible based on patient's age to complete this topic HIB VACCINE Aged Out No longer eligi ble based on patient's age to complete this topic HPV VACCINE Aged Out No longer eligi ble based on patient's age to complete this topic MENINGOCOCCAL (Group B) VACC INE SHARED DECISION-MAKING Aged Out No longer eligibl e based on patient's age to complete this topic MENINGOCOCCAL GROUPS A/C/Y/W VACCINE Aged Out No longer eligible b ased on patient's age to complete this topic Insurance [facility] UHC MANAGED MEDICARE ADV Care Teams Applied Anthropologist Relationship Specialty Start Date End Date Gadiel Zavala MD [address] [address] [place] [address] PCP - General 02/15/21
--- OUTSIDE RECORDS SUMMARY | 2024-09-30 00:36 | XMS_ITS | Clinical Summary ---
Author Organization [facility] Address [address] [place] [address] Phone Care Team Providers Care Seismology Teacher Name Role Phone Gadiel Zavala MD Primary Care Provider [phone] Allergies Active Allergy Reactions Criticality Noted Date [...] tablet Take 50 mcg by mouth daily electroneurodiagnostic technologist. Active atorvastatin (LIPITOR) 20 mg tablet Take [...] mouth daily. Active naloxone (NARCAN) 4 mg/spray [place], Non-Aerosol EMERGENCY USE ONLY: Administer 1 spray [...] Comments Blood Pressure 122/80 06/14/2022 10:12 AM PROCESS SAFETY ENGINEER Pulse 57 06/14/2022 10:12 AM PROCESS SAFETY ENGINEER Temperature 36.7 C (98.1 F) 02/05/2021 5:04 PM CDT Respiratory Rate 16 02/05/2021 5:04 PM CDT Oxygen Saturation 99% 02/05/2021 5:04 PM CDT Inhaled Oxygen Concentration - - Weight 57.4 kg (126 lb 8 oz) 06/14/2022 10:12 AM PROCESS SAFETY ENGINEER Height 152.4 cm (5') 06/14/2022 10:12 AM PROCESS SAFETY ENGINEER Body Mass Index 24.71 06/14/2022 10:12 AM PROCESS SAFETY ENGINEER Plan of Treatment Health Maintenance Due Date Last Done Comments DTAP/TDAP/TD VACCINES (1 - Tdap) 07/22/1967 PNEUMOCOCCAL VACCINE 50+ YEA RS (1 of 1 - PCV) 1998 ZOSTER VACCINE (1 of 2) 1998 OSTEOPOROSIS SCREENING 2013 RSV VACCINE (60+ or ) (1 - 1-dose 75+ series) 07/22/2023 INFLUENZA VACCINE (#1) 2023 01/26/2021, 2016 Medical Devices Implanted Type Area Manual Arts Therapy Teacher Device Identifier Shelf Expiration Date Model / Serial / Lot Spacer Bio Avs C-Plg 6mm 4d [id number] - [id number] Implanted:Qt y: 1 on 02/16/2017 by Mylene Gutierrez MD at [facility] Biological N/A: Spine Cervical Anterior OMARI- SPINE 09/12/2020 [id number] / [id number] / Description:All Omari spac er plugs and other spinal hardware was processed on requisition,[id number] Plate Aviator 1lvl 12mm [id number] - [id number] Implanted:Qt y: 1 on 02/16/2017 by Mylene Gutierrez MD at [facility] Plate N/A: Spine Cervical Anterior OMARI- SPINE [id number] / STERILIZED 02/16/2017 / LOAD24 Screw Avtr Va St 4.0x14mm [id number] - [id number] Implanted:Qt y: 4 on 02/16/2017 by Mylene Gutierrez MD at [facility] Screw N/A: Spine Cervical Anterior OMARI- SPINE [id number] / STERILIZED 02/16/2017 / LOAD24 Sealant Floseal 10ml [id number] - [id number] Implanted:Qt y: 1 on 02/16/2017 by Mylene Gutierrez MD at [facility] Sealant N/A: Spine Cervical Anterior CHERRY- BIOSCIENCE [id number] 03/16/2018 [id number] / / [id number] Cages In Back Explanted Type Area Manual Arts Therapy Teacher Device Identifier Shelf Expiration Date Model / Serial / Lot Spinal Cord Generator And Leads Explanted:Qty: 1 on 11/16/2017 by Mylene Gutierrez MD at [facility] Lead N/A: Back Insurance [facility] Advance Directives For more information, please contact: [phone] * Full Code (Latest Code Status on [...] 12:48 PM 11/16/2017 12:50 PM Care Teams Seismology Teacher Relationship Specialty Start Date End Date Gadiel Zavala MD [address] [place] [address] PCP - General Family Practice 03/03/17
--- OUTSIDE RECORDS SUMMARY | 2024-09-30 00:36 | XMS_ITS | Referral Summary ---
Author Organization [facility] Address [address] [place] [address] Care Team Providers Care Software Support Representative Name Role Phone Gadiel Zavala MD Primary Care Provider [phone] Lyudmila Knox RN Unavailable Unavailable Jennifer Escalona RN Unavailable Agustina vailable Encounters Date Type Department Care Team Description 09/27/2024 Telephone [facility] [address] [place] [phone] Emilio Leggett MD 08/19/2024 8:30 AM CDT Ancillary Procedure [facility] [address] [place] [phone] Paroxysmal atrial fibrillation (HCC); Status post placement of implantable loop recorder; Syncope, unspecified syncope type 07/08/2024 8:00 AM CDT Ancillary Procedure [facility] [address] [place] [phone] Paroxysmal atrial fibrillation (HCC); Status post [...] = 0.6 oz pur e alcohol) social [employer] Utilities Answer Date Recorded In the past 12 months has th e electric, gas, oil, or water [employer] threatened to shut off services in your [...] often do you attend chur ch or jew services? Never 11/17/2023 Do you belong to any clubs o r organizations such as episcopal groups, unions, fraternal or athletic groups, or [...] time in the past 12 m [place], were you homeless or living in a senior living (including now)? No 11/17/2023 Personal Safety Answer Date Recorded Have you ever been in or are you currently in a harmful physical or emotional relationship or is someone making you feel afraid or unsafe? Denies 02/08/2024 Comments No Sex and Gender Information Value Date Recorded Sex Assigned at Not on file Legal Sex Female 3:22 AM PATROL DEPUTY SHERIFF Gender Identity Not on file Sexual Orientation [...] March 2017 Medical Devices Implanted Type Area Store Sales Leader Device Identifier Shelf Expiration Date Model / Serial / Lot Cage Cage Back Other Kit Stimulator Octrode L60 Cm Trial Lead Neurostimulator - [id number] Implanted:Qty: 1 on 05/03/2017 by Brice Eisenberg MD at [facility] [address] [employer] 3086 / / Kit Stimulator Octrode L60 Cm Trial Lead Neurostimulator - [id number] Implanted:Qty: 1 on 05/03/2017 by Brice Eisenberg MD at [facility] [address] [employer] 3086 / / Kit Neurostimulator Octrode L60 Cm Percutaneous 8 Electrode Lead - [id number] - [id number] Implanted:Qty: 1 on 06/22/2017 by Brice Eisenberg MD at [facility] N/A: Back [employer] 05/24/2019 [id number] / [id number] / Kit Neurostimulator Octrode L60 Cm Percutaneous 8 Electrode Lead - [id number] - [id number] Implanted:Qty: 1 on 06/22/2017 by Brice Eisenberg MD at [facility] N/A: Back [employer] 05/24/2019 [id number] / [id number] / [place] Lead Eduardo-Lock - [id number] Implanted:Qty: 2 on 06/22/2017 by Brice Eisenberg MD at [facility] N/A: Back [employer] 05/18/2019 1192 / / [id number] Generator Neurostimulator Proclaim Elite Thk13.4 Mm 5 In W49.5 Mm X H55.5 Mm Spinal Cord Implantable Pulse - [id number] - [id number] Implanted:Qty: 1 on 06/22/2017 by Brice Eisenberg MD at [facility] N/A: Back [employer] 05/02/2019 [id number] / [id number] / [employer] V[employer] System Closure Repair Femoral Artery Suture Mediated Perclose Prostyle 26836-41 - [id number] Implanted:Qty: 1 on 11/16/2023 by Emilio Leggett MD at [facility] 07/29/2025 1 [id number] [employer] V[employer] System Closure Repair Femoral Artery Suture Mediated Perclose Prostyle 64644-05 - [id number] Implanted:Qty: 1 on 11/16/2023 by Emilio Leggett MD at [facility] 07/29/2025 1 2773- [id number] [employer] V[employer] System Closure Repair Femoral Artery Suture Mediated Perclose Prostyle 58386-18 - [id number] Implanted:Qty: 1 on 11/16/2023 by Emilio Leggett MD at [facility] 07/29/2025 1 [id number] [place] [employer] Percutaneous Transcatheter Amplatzer Amulet 22mm 4-[id number] - [id number] Implanted:Qty: 1 on 11/16/2023 by Emilio Leggett MD at [facility] 11/29/2027 9 -ACP2-00 7-022 / / [id number] Procedures Procedure Name Priority Date/Time Associated Diagnosis [...] Modality Other Narrative 08/23/2024 10:34 AM CDT Medtronic LNQ22 Loop Recorder. Dx; Syncope, [...] scanned report. [facility] remote f/u 09/30/24. Adria Camarena RN Emilio Leggett MD [facility] PROCEDURES F inal Result * DEVICE CHECK - REMOTE (07/09/2024 2:44 PM CDT) Anatomical Region Laterality Modality Other Narrative 07/10/2024 2:01 PM CDT TechLoaner LNQ22 Loop Recorder. Dx; Syncope, Afib. DOI [...] scanned report. [facility] remote f/u 08/19/24. Adria Camarena RN Emilio Leggett MD [facility] PROCEDURES F inal Result from Last 3 Months Insurance [facility] MEDICARE [facility]ANT[facility] MEDIC[facility] Address: [address] [address] [place] [address] [facility] MEDICARE ADVANTAGE [facility] MEDICARE Address: [address] [place] [phone] [facility] MEDICARE ADVANTAGE [facility] MEDICARE Address: [address] [address] [place] [address] Care Teams Software Support Representative Relationship Specialty Start Date End Date Gadiel Zavala MD [address] [place] [address] PCP - General 06/13/16 Lyudmila Knox, RN Registered Nurse 04/14/17 Jennifer Escalona, RN Registered Nurse 05/10/17
--- OUTSIDE RECORDS SUMMARY | 2024-09-30 00:36 | XMS_ITS | Continuity of Care Document ---
Author Organization [facility] Address [address] [place] [address] Phone Care Team Providers Care Accounting Machine Servicer Name Role Phone Jorge Cevallos Unavailable Unavailable Procedures Procedure Date No Charge Glasses Check Office/outpatient Visit, Est Refraction Eye Exam & Treatment Refraction Advance Directives Directive Yes / No Effective Date File Name No Information Encounters Encounter Description Practice Location Reason(s) For Visit Diagnoses Date Provider Providers Copied on Encounter [facility], [address] [place] [address] [address], [place], [place], [id number], [place] tel:[phone] [facility] No Information 0 Ban Patel. [address] , [address], [place], [place], [facility] [place], [place]. tel:[phone] Office/outpat ient Visit, Est [facility], [address] [place] [address] [address], [place], [place], [id number], [place] tel:[phone] [facility] No Information [address] Ban Patel. [address] , [address], [place], [address], [place]. tel:[phone] [facility], [address] [place] [address] [address], [place], [place], [id number], tel:[phone] [facility] No Information [address] Ban Patel. [address] , [address], [place], [address], [place]. tel:[phone] Family History Family Member Type Diagnosis Age [...]
--- NOTE | 2024-09-30 14:18 | WPDHPUPDATE1 ---
History and Physical Update Update Date/Time: 09/30/24 14:18 History and Physical has been reviewed, including an updated exam of the patient. There are NO changes in the patient's condition. Risks, benefits, and alternatives have been discussed and questions answered. Patient agrees to proceed with procedure.
--- NOTE | 2024-09-30 14:25 | P.OP_ITS ---
Procedure Note - Detailed Date of Procedure 09/30/24 Pre-op Diagnosis chronic pain, lumbar spinal stenosis, Chronic low back pain, multifocal OA Post-op Diagnosis Same Procedure Performed Thoracolumbar Interlaminar Epidural Needle Placement at T11-12 for Single Prognostic Epidural Bolus of Opioid Analgesic (Pump Trial) under Fluoroscopic Guidance with Contrast Control. Surgeon Sagar Perez MD Business Project Analyst None. Anesthesia Local Description of Procedure INFORMED CONSENT: Risks, benefits and alternatives to the procedure were discussed in detail with the patient who expressed explicit understanding and consent to proceed. Patient was informed verbally and in written form regarding the risks associated with the procedure including the low risk of inadvertent dural puncture resulting in CSF leak and subsequent acute or chronic spinal headache, serious systemic or local infection requiring additional surgery, bleeding/bruising or blood clot, allergic reaction, nerve /spinal cord or organ injury resulting in temporary or permanent weakness, paralysis, numbness, pain, deformity or bowel or bladder incontinence, procedural site pain or discomfort, worsening pain and/or mobility, failure to treat and/or disfigurement, as well as the risk of opioid overdose resulting in sedation, cognitive impairment, hypoxia, coma, , or under dose causing withdrawal symptoms or untreated pain. The patient expressed explicit understanding and consent to proceed despite the potential risks with the agreement that potential benefits far outweigh potential for harm. All materials required for the procedure were available prior to procedure start. Site and side were marked prior to procedure and confirmed in the presence of the patient. PROCEDURE IN DETAIL: The patient was brought to the procedural suite and placed in the prone position. Patient was made comfortable with use of pillows under the head/chest, hips and ankles. Appropriate monitoring initiated. Skin overlying the injection site was prepared broadly with ChloraPrep applicator and draped in a sterile manner. Aseptic technique was employed throughout. The endplates of the vertebral body at the site of interest were aligned in the AP view. Slight caudal tilt and ipsilateral oblique angulation was utilized to optimize visualization of the targeted posterior intervertebral foramen at T12-L1. Local anesthesia was established by infiltration with approximately 5 mL of 0.5% lidocaine via a 1-1/2 inch 27-gauge needle. A 20-gauge 4-inch Tuohy epidural needle was advanced intermittently until appropriate loss of resistance to air was identified via plastic loss of resistance syringe. Lateral view was used to confirm the appropriate positioning of the needle tip within the posterior epidural space. In the AP view, 1.0 mL of Multihance contrast medium was injected after negative aspiration for CSF, blood or other bodily fluid, showing appropriate epidural spread of contrast without evidence of intravascular or intrathecal placement. 1 ml of a 1mg/ml aqueous solution of preservative free morphine labeled for IT/Epidural use was injected after negative repeat aspiration. Appropriate spread of the injectate was confirmed with washout of previously injected contrast. No parasthesias were elicited. Needle was removed intact and without difficulty. Site was cleaned and sterile bandage was applied. The patient tolerated the procedure well with no evidence of complication. Images were saved and documented in the patient chart. Patient's skin was cleaned and sterile bandage applied. The patient tolerated the procedure well. The patient was transported to the recovery area in stable condition where they were observed and monitored (RR, HR, BP, O2 Sats, Pain level) for an appropriate amount of time prior to discharge (no less than 1 hour), without evidence of c omplication. After approximately one hour, the patient was evaluated for neurologic deficit, pain relief and side effects with results as below. Patient instructed to remain in the presence of a responsible adult to monitor for the next 72 hours. The patient was instructed to avoid excessive activity for the next 48 hours, including climbing and frequent use of stairs. Showers only for 48 hours. They were instructed not to drive or operate heavy machinery for 72 hours. They are to monitor for pruritus, sedation/confusion, severe headaches, fevers, chills, night sweats, erythema/swelling at the site or any other signs of infection, bleeding/bruising, bowel or bladder changes as well as new pain, weakness or numbness in the upper or lower extremity. Should they notice these changes, they are instructed to call our office immediately or report directly to the nearest Emergency Department if no answer or if after posted office hours. COMPLICATIONS: None COMMENTS: Total dose:1 mg Morphine. No side effects of nausea, pruritus, somnolence, hallucinations noted. None CONTRAST WASTED: 4mL Multihance; 1 mg morphine sulfate. Complications No immediate complications Condition Stable Disposition Same day ( Extended stay greater than 1 hour.) [facility] Billing Surgery - Charge Forward: Surgery Billing
[2024-09-30 15:00] VITALS: BP 181/81; PULSE 68; RESP 12; O2SAT 99
--- NOTE | 2024-09-30 15:03 | SUR.OPER ---
USED MULTIHANCE (GADOBENATE DIMEGLUMINE INJECTION 529MG/ML) INSTEAD OF OMNIPAGUE DUE TO ALLERGY. DR. GEORGE AWARE!
[2024-09-30 15:05] VITALS: BP 176/79; PULSE 67; RESP 12; O2SAT 98
[2024-09-30] MEDS: MORPHINE SULFATE 1 MG/ML XX (15:05)
[2024-09-30] MEDS: SODIUM CHLORIDE XX (15:05)
[2024-09-30 15:09] VITALS: BP 162/71; PULSE 64; RESP 16; O2SAT 100
== END 2024-09-30 15:41 | disposition home or self-care (01) ==
PROVIDERS: PCP Family Medicine; Visit Provider Anesthesiology Pain Medicine
PROC: (CPT 62327; principal; 2024-09-30 15:00)
DX: M47.817 Spondylosis without myelopathy or radiculopathy, lumbosacral region (principal); M46.1 Sacroiliitis, not elsewhere classified; I10 Essential (primary) hypertension; E78.2 Mixed hyperlipidemia; E03.9 Hypothyroidism, unspecified; I48.0 Paroxysmal atrial fibrillation; E55.9 Vitamin D deficiency, unspecified; F32.A Depression, unspecified; E53.8 Deficiency of other specified B group vitamins; N32.81 Overactive bladder; L82.1 Other seborrheic keratosis; G47.00 Insomnia, unspecified; R05.3 Chronic cough; K21.9 Gastro-esophageal reflux disease without esophagitis; G89.29 Other chronic pain; M54.42 Lumbago with sciatica, left side; M54.41 Lumbago with sciatica, right side; M25.552 Pain in left hip; R35.0 Frequency of micturition; M19.90 Unspecified osteoarthritis, unspecified site; G62.9 Polyneuropathy, unspecified; Z98.890 Other specified postprocedural states; Z98.1 Arthrodesis status; Z90.49 Acquired absence of other specified parts of digestive tract; Z87.891 Personal history of nicotine dependence; Z85.038 Personal history of other malignant neoplasm of large intestine
CPT/HCPCS: 62327; 99199; A9270

== ENCOUNTER 2024-10-25 10:10 | Outpatient (CLI) | payer MEDICARE, SELFPAY ==
--- NOTE | ~2024-10-25 | DEXA_ITS ---
Bone Density Report Name: GEORGIANA JAMIL Age: 74 Sex: Female Ethnicity: White Date of : 1950 Indication: postmenopausal; screening for osteoporosis; hysterectomy; Referring Provider: DEE CENTENO Study: Bone densitometry was performed. Exam Date: October 25, 2024 Accession number: [id number] Bone Density: Region BMD T-score Z-score Classification Femoral Neck (Left) 0.721 -1.2 1.0 Osteopenia Total Hip (Left) 0.887 -0.5 1.4 Normal Femoral Neck (Right) 0.698 -1.4 0.8 Osteopenia Total Hip (Right) 0.883 -0.5 1.4 Normal Total Hip Mean 0.885 -0.5 1.4 Normal World Health Organization criteria for BMD impression classify patients as: Normal (T-score at or above -1.0), Osteopenia (T-score between -1.0 and -2.5), or Osteoporosis (T-score at or below -2.5). 10-year Fracture Risk(1): Major Osteoporotic Fracture 11% Hip Fracture 2.2% Reported Risk Factors: [place] (), Neck BMD=0.698, BMI=25.0 (1) FRAX(R) Version 3.08. Fracture probability calculated for an untreated patient. Fracture probability may be lower if the patient has received treatment. Clinical Information Provided by Patient: Has used the following medications: Vitamin D, Calcium Has the following medical conditions: Hysterectomy Patient maximum height was 63 Menopause Age: 28 No regular weight bearing exercise Drinks caffeinated beverages Onset of menses at age 14 Number of children 1 Impression: The patient has low bone mass, based on the Right Femoral Neck T-score. The patient has an estimated ten-year risk of hip fracture of 2.2% and an estimated ten-year risk of major fracture of 11%, based on the WHO FRAX algorithm. Discussion: BONE DENSITY IS LOW AT ONE OR MORE SKELETAL SITES. This patient's lowest T-score is low at one or more skeletal sites. It meets the World Health Organization's (WHO) criteria for ?low bone mass? (T-score between -1.0 and -2.5). The patient's 10-year risk of fracture as calculated by FRAX is less than the threshold where pharmacological therapy is recommended by the National Osteoporosis Foundation (NOF). However, all treatment decisions require clinical judgment and consideration of individual patient factors, including patient preferences, comorbidities, previous drug use, risk factors not captured in the FRAX model (e.g., frailty, falls, vitamin D deficiency, increased bone turnover, interval significant decline in bone density) and possible under or overestimation of fracture risk by FRAX. The patient should follow a healthful lifestyle (good nutrition with adequate calcium and vitamin D, and appropriate weight-bearing exercise). Follow-Up: Consider repeating this study in 2 to 3 years to reassess this patient's status, or sooner if there is some new clinical indication. Reported by: ARIEL on 10/25/2024 10:31:00 AM. Reviewed, dictated and finalized at location A.
== END 2024-10-25 10:11 | disposition home or self-care (01) ==
LOC: MICIMG 10:11
PROVIDERS: PCP Family Medicine; Visit Provider Nurse Practitioner Family
DX: M85.89 Other specified disorders of bone density and structure, multiple sites (principal); Z78.0 Asymptomatic menopausal state; Z13.820 Encounter for screening for osteoporosis
CPT/HCPCS: 77080

== ENCOUNTER 2024-11-28 12:46 | Outpatient (CLI) | payer MEDICARE, SELFPAY ==
--- OUTSIDE RECORDS SUMMARY | 2024-11-28 12:50 | XMS_ITS | Encounter Summary ---
Author Organization [facility] Healthcare Address [address] [place] [address] Care Team Providers Care Publications Distribution Clerk Name Role Phone Gadiel Zavala MD Primary Care Provider [phone] Lyudmila Knox RN Unavailable Unavailable Jennifer Escalona RN Unavailable Agustina vailable Encounter Details Date Type Department Care Team (Late st Contact Info) Description 11/17/2024 Results Follow-Up [facility] Medical Group Cardiology [address] [place] [id number] [place] [address] [place] [address] [address] [facility] [address], [address] [place] [address] NM MPI SPECT (Rest and/or Stress) Multiple Studies Social History Tobacco Use Types Packs/Day Years Used Date Smoking Tobacco: Former Cigarettes Q uit: 04/14/1987 Smokeless Tobacco: Never Alcohol Use Standard Drinks/Week Comments Yes 0 (1 standard drink = 0.6 oz pur e alcohol) social C Utilities Answer Date Recorded In the past 12 months has [employer], gas, oil, or water company threatened to [...] often do you attend chur ch or presybeterian services? 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
--- OUTSIDE RECORDS SUMMARY | 2024-11-28 12:50 | XMS_ITS | Clinical Summary ---
Author Organization [facility] Address [address] [place] [address] Phone Care Team Providers Care Development Chemist Name Role Phone Gadiel Zavala MD Primary Care Provider [phone] Allergies Active Allergy Reactions Criticality Noted Date [...] tablet Take 50 mcg by mouth daily road passenger firer. Active atorvastatin (LIPITOR) 20 mg tablet Take [...] mouth daily. Active naloxone (NARCAN) 4 mg/spray [place], Non-Aerosol EMERGENCY USE ONLY: Administer 1 spray [...] Comments Blood Pressure 122/80 06/14/2022 10:12 AM CUSTOMER MARKETING INTERN Pulse 57 06/14/2022 10:12 AM CUSTOMER MARKETING INTERN Temperature 36.7 C (98.1 F) 02/05/2021 5:04 PM CDT Respiratory Rate 16 02/05/2021 5:04 PM CDT Oxygen Saturation 99% 02/05/2021 5:04 PM CDT Inhaled Oxygen Concentration - - Weight 57.4 kg (126 lb 8 oz) 06/14/2022 10:12 AM CUSTOMER MARKETING INTERN Height 152.4 cm (5') 06/14/2022 10:12 AM CUSTOMER MARKETING INTERN Body Mass Index 24.71 06/14/2022 10:12 AM CUSTOMER MARKETING INTERN Plan of Treatment Health Maintenance Due Date Last Done Comments DTAP/TDAP/TD VACCINES (1 - Tdap) 07/22/1967 PNEUMOCOCCAL VACCINE 50+ YEA RS (1 of 1 - PCV) 1998 ZOSTER VACCINE (1 of 2) 1998 OSTEOPOROSIS SCREENING 2013 RSV VACCINE (60+ or ) (1 - 1-dose 75+ series) 07/22/2023 INFLUENZA VACCINE (#1) 2024 01/26/2021, 2016 Medical Devices Implanted Type Area Printer Maintainer Device Identifier Shelf Expiration Date Model / Serial / Lot Spacer Bio Avs C-Plg 6mm 4d [id number] - [id number] Implanted:Qt y: 1 on 02/16/2017 by Mylene Gutierrez MD at [facility] Biological N/A: Spine Cervical Anterior SEN- SPINE 09/12/2020 [id number] / [id number] / Description:All Sunray spac er plugs and other spinal hardware was processed on requisition,[id number] Plate Aviator 1lvl 12mm [id number] - [id number] Implanted:Qt y: 1 on 02/16/2017 by Mylene Gutierrez MD at [facility] Plate N/A: Spine Cervical Anterior SEN- SPINE [id number] / STERILIZED 02/16/2017 / [id number] Screw Avtr [address] 4.0x14mm [id number] - [id number] Implanted:Qt y: 4 on 02/16/2017 by Mylene Gutierrez MD at [facility] Screw N/A: Spine Cervical Anterior SEN- SPINE [id number] / STERILIZED 02/16/2017 / [id number] Sealant Floseal 10ml [id number] - [id number] Implanted:Qt y: 1 on 02/16/2017 by Mylene Gutierrez MD at [facility] Sealant N/A: Spine Cervical Anterior CHERRY- BIOSCIENCE [id number] 03/16/2018 [id number] / / [id number] Cages In Back Explanted Type Area Printer Maintainer Device Identifier Shelf Expiration Date Model / Serial / Lot Spinal Cord Generator And Leads Explanted:Qty: 1 on 11/16/2017 by Mylene Gutierrez MD at [facility] Lead N/A: Back Insurance [facility] Advance Directives For more information, please contact: [phone] * Full Code (Latest Code Status on [...] 12:48 PM 11/16/2017 12:50 PM Care Teams Development Chemist Relationship Specialty Start Date End Date Gadiel Zavala MD [address] [place] [address] PCP - General Family Practice 03/03/17
--- OUTSIDE RECORDS SUMMARY | 2024-11-28 12:50 | XMS_ITS | Clinical Summary ---
Author Organization [facility] Address [address] [place] [address] Phone Care Team Providers Care Gas Furnace Installer Name Role Phone Gadiel Zavala MD [...] Due Date Last Done Comments Hepatitis C Virus (HCV) Screening 1950 TdaP Immunization 1950 Pneumococcal Immunization (5 0+ years) (1 of 1 - PCV) 1998 Zoster Immunization (1 of 2) 1998 Respiratory Syncytial Virus (RSV) Immunization (Adult) (1 - 1-dose 75+ series) 07/22/2023 SARS-COV-2 Immunization ( - 2023-25 season) 2023 Influenza Immunization (#1) 2024 Hepatitis B Immunization Aged Out No longer eligible based on patient's age to complete this topic Human Papillomavirus (HPV) Immunization Aged Out No longer eligible b ased on patient's age to complete this topic Meningococcal Immunization (ACWY) Aged Out No longer eligible based on patient's age to complete this topic Rotavirus Immunization Aged Out No lo nger eligible based on patient's age to complete this topic Insurance MEDICARE C AETNA Care Teams Gas Furnace Installer Relationship Specialty Start Date End Date Gadiel Zavala MD [address] [address] PCP - General Family Medicine 02/09/17
--- OUTSIDE RECORDS SUMMARY | 2024-11-28 12:50 | XMS_ITS | Clinical Summary ---
Author Organization [facility] Address [address] [facility] [place] [address] Care Team Providers Care Worm Picker Name Role Phone Gadiel Zavala MD Primary Care Provider [phone] Source Comments [facility],non-owned Affiliates and Associated Physician Practices is amultiple site organization consisting of ambulatory clinics and hospital sitesin [place], [place], [place] and [place]. This disclosure is being madepursuant to the Care Everywhere program and may not contain all information available regarding this patient. 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
--- OUTSIDE RECORDS SUMMARY | 2024-11-28 12:50 | XMS_ITS | Continuity of Care Document ---
Author Organization [facility] Address [address] [facility] [address] [place] [address] Phone Care Team Providers Care Die Cast Engineer Name Role Phone Jorge Cevallos Unavailable Unavailable Procedures Procedure Date No Charge Glasses Check Office/outpatient Visit, Est Refraction Eye Exam & Treatment Refraction Advance Directives Directive Yes / No Effective Date File Name No Information Encounters Encounter Description Practice Location Reason(s) For Visit Diagnoses Date Provider Providers Copied on Encounter [facility], [address] [place] [address] [address], [place], [place], [id number], [place] tel:[phone] [facility] No Information 0 Ban Patel. [address] [facility] , [address], [place], [place], [facility], [place]. tel:[phone] Office/outpat ient Visit, Est [facility], [address] [place] [address] [address], [place], [place], [id number], [place] tel:[phone] [facility] No Information [address] Ban Patel. [address] [facility] , [address], [place], [address], [place]. tel:[phone] [facility], [address] [place] [address] [address], [place], [place], [id number], tel:[phone] [facility] No Information [address] Ban Patel. [address] [facility] , [address], [place], [address], [place]. tel:[phone] Family History Family Member Type Diagnosis Age At Onset No Information Payers Payer name Insurance type Covered libertarian ID Authoriza tion(s) No Information Social History [...]
--- OUTSIDE RECORDS SUMMARY | 2024-11-28 12:50 | XMS_ITS | Clinical Summary ---
Author Organization [facility] Address [address] [place] [address] Care Team Providers Care Tobacco Prizer Name Role Phone Gadiel Zavala MD Primary Care Provider [phone] Lyudmila Knox RN Unavailable Unavailable Jennifer Escalona [...] once daily 90 tablet 1 5 Active Active Problems Problem Noted Date Diagnosed Date Presence of Amulet left atrial appendage closure device 11/16/2023 Surgical complication involv ing both eyes, unspecified complication 10/24/2023 Visit for wound check 08/15/2022 Status post placement of implantable loop record er 08/09/2022 Overview (11/24/2023): Medtronic LNQ22 Loop Recorder. Dx; Syncope, Afib. DOI 08/08/2022-Chris. [facility] remote monitoring. Amulet placed 11/16/23 Falls [...] Encounters Date Type Department Care Team Description 11/17/2024 Results Follow-Up [facility] Cardiology [address] [place] [address] Suite [facility] [place] [address] Emilio Wahl MD NM MPI SPECT (Rest and/or Stress) Multiple Studies 11/11/2024 8:30 AM CDT Ancillary Procedure [facility] Cardiology [address] [place] [address] Suite [facility] [place] [address] Paroxysmal atrial fibrillation (HCC); Status post placement of implantable loop recorder; Syncope, unspecified syncope type 11/06/2024 10:15 AM CDT Ancillary Procedure [facility] Cardiology [address] [facility] [address] [place] [address] Precordial pain 10/22/2024 9:15 AM CDT Office Visit [facility] Cardiology [address] [place], [place] [address] [place] [address] Emilio Wahl MD Precordial pain (Primary Dx); Paroxysmal atrial fibrillation (HCC); Frequent falls; Presence of Amulet left atrial appendage closure device; Essential hypertension; History of tobacco abuse 09/30/2024 9:00 AM CDT Ancillary Procedure [facility] Cardiology [address] [place] [address] [place] [address] Paroxysmal atrial fibrillation (HCC); Status post placement of implantable loop recorder; Syncope, unspecified syncope type 09/27/2024 Telephone [facility] Cardiology [address] [place], [place] [address] [phone] Emilio Wahl MD from Last 3 Months Surgical History Surgery [...] = 0.6 oz pur e alcohol) social [employer] Utilities Answer Date Recorded In the past 12 months has [employer], gas, oil, or water [employer] threatened to shut off services in your [...] often do you attend chur ch or uatsdin services? 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 Gender Identity Not on file Sexual Orientation Not on file Obstetrics History Last Filed Vital Signs Vital Sign Reading Time Taken Comments Blood Pressure 118/84 10/22/2024 9:22 AM CDT Pulse 62 10/22/2024 9:22 AM CDT Temperature 36.5 C (97.7 F) 02/08/2024 9:52 AM CDT Respiratory Rate 14 10/22/2024 9:22 AM CDT Oxygen Saturation 99% 10/22/2024 9:22 AM CDT Inhaled Oxygen Concentration - - Weight 63 kg (139 lb) 10/22/2024 9:22 AM CDT Height 160 cm (5' 3) 10/22/2024 9:22 AM CDT Body Mass Index 24.62 10/22/2024 9:22 AM CDT Plan of Treatment Health Maintenance Due Date Last Done Comments Hepatitis C Screening 1950 Osteoporosis Screening-Bone Density Scan 1950 DTaP/Tdap/Td Vaccine (1 - Tdap) 07/22/1959 Hepatitis B Screening 1966 Zoster Vaccine (1 of 2) 1998 Well Visit 65+ 2013 Depression Screening 10/17/2018 10/17/2017 Covid-19 Vaccine (5 - 2023-2 5 season) 2023 09/15/2021, 01/22/2021, 07/22/2020, Additional history exists Influenza Vaccine (#1) 2024 , 02/07/2019, 02/01/2018, Additional history exists Fall Risk Assessment 10/22/2025 10/22/2024, 02/08/2024, 01/02/2024 Pneumococcal vaccine 65+ Completed 02/07/2019, 07/2017 Goals Goal Patient Goal Type Associated Problems Recent Progress Patient-Stated? Author Increase physical activity Exercise Lyudmila Shah, RN Note: She is doing arm and leg exercises from Pt. She was in rehab after neck surgery for 2 weeks in March 2017 Medical Devices Implanted Type Area Translational Specialist Device Identifier Shelf Expiration Date Model / Serial / Lot Cage Cage Back Other Kit Stimulator Octrode L60 Cm Trial Lead Neurostimulator - [id number] Implanted:Qty: 1 on 05/03/2017 by Brice Eisenberg MD at [facility] Phys[facility] Office Building [address] [employer] 3086 / / Kit Stimulator Octrode L60 Cm Trial Lead Neurostimulator - [id number] Implanted:Qty: 1 on 05/03/2017 by Brice Eisenberg MD at [facility] Building [address] [employer] 3086 / / Kit Neurostimulator Octrode L60 Cm Percutaneous 8 Electrode Lead - [id number] - [id number] Implanted:Qty: 1 on 06/22/2017 by Brice Eisenberg MD at [facility] N/A: Back [employer] 05/24/2019 [id number] / [id number] / Kit Neurostimulator Octrode L60 Cm Percutaneous 8 Electrode Lead - [id number] - [id number] Implanted:Qty: 1 on 06/22/2017 by Brice Eisenberg MD at [facility] N/A: Back [employer] 05/24/2019 [id number] / [id number] / [place] Lead Eduardo-Lock - [id number] Implanted:Qty: 2 on 06/22/2017 by Brice Eisenberg MD at [facility] N/A: Back [employer] 05/18/2019 1192 / / [id number] Generator Neurostimulator Proclaim Elite Thk13.4 Mm 5 In W49.5 Mm X H55.5 Mm Spinal Cord Implantable Pulse - [id number] - [id number] Implanted:Qty: 1 on 06/22/2017 by Brice Eisenberg MD at [facility] N/A: Back [employer] 05/02/2019 [id number] / [id number] / [employer]her Vascular System Closure Repair Femoral Artery Suture Mediated Perclose Prostyle 95695-82 - [id number] Implanted:Qty: 1 on 11/16/2023 by Emilio Wahl MD at [facility] 07/29/2025 1 27707-01 [id number] [employer]her Vascular System Closure Repair Femoral Artery Suture Mediated Perclose Prostyle 95185-20 - [id number] Implanted:Qty: 1 on 11/16/2023 by Emilio Wahl MD at [facility] 07/29/2025 1 27707-01 [id number] [employer]her Vascular System Closure Repair Femoral Artery Suture Mediated Perclose Prostyle 40493-01 - [id number] Implanted:Qty: 1 on 11/16/2023 by Emilio Wahl MD at [facility] 07/29/2025 1 27707-01 [id number] [place] Vascular Percutaneous Transcatheter Amplatzer Amulet 22mm 2-Pst3-217-022 - [id number] Implanted:Qty: 1 on 11/16/2023 by Emilio Wahl MD at [facility] 11/29/2027 9 -ACP2-00 7-022 / / [id number] Procedures Procedure Name Priority Date/Time Associated Diagnosis Comments DEVICE CHECK - REMOTE Routine 11/12/2024 10:36 AM CDT Paroxysmal atrial fibrillation (HCC) Status post placement of implantable loop recorder Syncope, unspecified syncope type NM MPI SPECT (REST AND/OR STRESS) MULTIPLE STUDIES Schedule Routine, Read Routine (OP Routine) 11/06/2024 11:54 AM CDT Precordial pain DEVICE CHECK - REMOTE Routine 10/03/2024 11:41 AM CDT Paroxysmal atrial fibrillation (HCC) Status post placement of implantable loop recorder Syncope, unspecified syncope type from Last 3 Months Results * DEVICE CHECK - REMOTE (11/12/2024 10:36 AM CDT) Anatomical Region Laterality Modality Other Narrative 11/25/2024 8:00 AM CDT Dauria Aerospacetronic Loop Recorder. Dx: Syncope Monitoring period: 30-Sep-2024 to 11-Nov-2024 Routine ILR remote. Normal device function. Battery function OK. Presenting rhythm: VS at 60 bpm Medications: ASA, Metoprolol XL, s/p LAAO - among others Since last scheduled remote: --24 Tachy, ECGs show AF with RVR. --17 AF, ECGs show AF. AF burden 2.9%. See scanned report. Next check: 42 day remote SOFIA [place] Device Specialist Emilio Wahl MD CV CARDIAC SERVICES PROCEDURES F inal Result * NM MPI SPECT (Rest and/or Stress) Multiple Studies (11/06/2024 11:54 AM CDT) Anatomical Region Laterality Modality Body N/A Nuclear Medicine 11/06/2024 8:36 AM CDT Narrative 11/06/2024 5:44 PM CDT [facility] Cardiology [address] [facility] [address] [address] [address] [address] [facility] [address], [place] [address] [address] [place] [address] P:[phone] P:[phone] MPI Imaging Report Patient Name: GEORGIANA BOND D : 1950 Study Date: 11/06/2024 8:36:43 AM Gender: F [facility] Location: [facility] Provider: EMILIO WHAL Height(Cm): 160 BSA: Weight(Kg): 63 BMI: 24.61 Order Provider: EMILIO WAHL PHYSICIAN: Primary Care Physician: Dr. Zavala. [facility] Physician: Emilio Wahl M.D., JeanaADebraCDebraCDebra Stress Supervision: Emilio Wahl M.D., BriCDebraCDebra Stress Interpreting Physician: Emilio Wahl M.D., BriCDebraCDebra Image Interpreting Physician: Ricardo Ndiaye M.D. PROCEDURES: Pharmacologic SPECT Report: Myocardial perfusion imaging with Tc99M Sestamibi SPECT at rest and stress post regadenoson (Lexiscan) infusion. INDICATIONS: Paroxysmal Atrial Fibrillation, Hypertension, Family Hx CAD, High Cholesterol, Former Smoker, and R07.2 Precordial pain. FINDINGS: Procedural Findings: One day rest/stress was used. Tc99m Sestamibi injected IV at rest was 8.8 millicuries 24.7 millicuries of Tc99M Sestamibi injected IV during Lexiscan stress Lexiscan 0.4mg administered IV over 10 seconds. Patient had no symptoms during stress test. Baseline heart rate was 61 BPM Maximum Heart Rate Achieved was: 79 BPM Baseline blood pressure was 152/78 mmHg Post Stress Blood Pressure was 152/80 mmHg Termination: Protocol complete. Resting ECG: Sinus rhythm. Post ECG: Findings do not meet strict criteria for ischemia. Arrhythmia: No arrhythmias seen. Perfusion Findings: Normal perfusion imaging. No definite fixed or reversible defects. Technical quality of study is excellent. Prone imaging was not performed. Left ventricle cavity size at rest is normal. Left ventricle cavity size with stress is unchanged. A TID of 1.08 was automatically calculated. LV Function: There is hyperdynamic global left ventricular systolic function. Left ventricular ejection fraction is 83 %. CONCLUSIONS: There is hyperdynamic global left ventricular systolic function. Left ventricular ejection fraction is 83 %. Myocardial perfusion imaging is normal. Negative EKG portion of the pharmacological stress test. Correlate with SPECT. Electronically Signed By: Emilio Wahl MD, [facility] 11/06/2024 1:13:30 PM CDT Electronically Signed By: Dale Ndiaye MD 11/06/2024 4:58:30 PM CDT Procedure Note Dale Ndiaye MD - 11/06/2024 [facility] Cardiology [address] [facility] [address], [place] [address] [address] [facility] [address], [place] [address], [place] [address] P:[phone] P:[phone] MPI Imaging Report Patient Name: GEORGIANA BOND D : 1950 Study Date: 11/06/2024 8:36:43 AM Gender: F Tech: [facility] Location: [facility] Provider: EMILIO WAHL Height(Cm): 160 BSA: Weight(Kg): 63 BMI: 24.61 Order Provider: EMILIO WAHL PHYSICIAN: Primary Care Physician: Dr. Zavala. [facility] Physician: Emilio Wahl M.D., F.A.C.C. Stress Supervision: Emilio Wahl M.D., F.A.C.C. Stress Interpreting Physician: Emilio Wahl M.D., F.A.C.CDebra Image Interpreting Physician: Ricardo Ndiaye M.D. PROCEDURES: Pharmacologic SPECT Report: Myocardial perfusion imaging with Tc99M Sestamibi SPECT at rest and stresspost regadenoson (Lexiscan) infusion. INDICATIONS: Paroxysmal Atrial Fibrillation, Hypertension, Family Hx CAD, HighCholesterol, Former Smoker, and R07.2 Precordial pain. FINDINGS: Procedural Findings: One day rest/stress was used. Tc99m Sestamibi injected IV at rest was 8.8 millicuries 24.7 millicuries of Tc99M Sestamibi injected IV during Lexiscan stress Lexiscan 0.4mg administered IV over 10 seconds. Patient had no symptoms during stress test. Baseline heart rate was 61 BPM Maximum Heart Rate Achieved was: 79 BPM Baseline blood pressure was 152/78 mmHg Post Stress Blood Pressure was 152/80 mmHg Termination: Protocol complete. Resting ECG: Sinus rhythm. Post ECG: Findings do not meet strict criteria for ischemia. Arrhythmia: No arrhythmias seen. Perfusion Findings: Normal perfusion imaging. No definite fixed or reversible defects.Technical quality of study is excellent. Prone imaging was not performed. Left ventricle cavitysize at rest is normal. Left ventricle cavity size with stress is unchanged. A TID of1.08 was automatically calculated. LV Function: There is hyperdynamic global left ventricular systolic function. Leftventricular ejection fraction is 83 %. CONCLUSIONS: There is hyperdynamic global left ventricular systolic function. Leftventricular ejection fraction is 83 %. Myocardial perfusion imaging is normal. Negative EKG portion of the pharmacological stress test. Correlate withSPECT. Electronically Signed By: Emilio Wahl MD, [facility] 11/06/2024 1:13:30 PM CDT Electronically Signed By: Dale Ndiaye MD 11/06/2024 4:58:30 PM CDT Result [facility] Emilio Wahl MD IMG TN PROCEDURES Final Result * DEVICE CHECK - REMOTE (10/03/2024 11:41 AM CDT) Anatomical Region Laterality Modality Other Narrative 11/21/2024 10:05 AM CDT HERMEL DELOR LNQ22 Loop Recorder. Dx; Syncope, Afib. DOI 08/08/2022-Chris. [facility] remote monitoring. Amulet placed 11/16/23 Routine ILR remote. Normal device function. Battery function-good Presenting rhythm: NSR Medications: ASA 81 mg, losartan 25 mg, Toprol-XL 100 mg Toprol-XL 25 mg, LAAO Counters since last scheduled transmission on 08/19/24. --42 Tachy - EGMs demonstrate AFib with RVR with the longest episode lasting 2 hours and 21 minutes with a median V rate 200 beats per minute --0 Darren --0 Pause --0 Symptom --17 AF - EGMs demonstrate AFib, longest episode was 11 hours and 34 minutes. AFib burden 2.4% See scanned report. [facility] remote f/u 11/11/24. Adria Johny Migue, RN Emilio Wahl MD CV CARDIAC SERVICES PROCEDURES F inal Result from Last 3 Months Insurance UHC MEDICARE ADVANTAGE UHC MEDICARE ADVANTAGE UHC MEDICARE ADVANTAGE Care Teams Tobacco Prizer Relationship Specialty Start Date End Date Gadiel Zavala MD [address] [address] PCP - General 06/13/16 Lyudmila Knox, RN Registered Nurse 04/14/17 Jennifer Escalona, RN Registered Nurse 05/10/17
--- OUTSIDE RECORDS SUMMARY | 2024-11-28 12:50 | XMS_ITS ---
Author Organization [facility] Address [address] [place] [address] Care Team Providers Care Drink Mixer Name Role Phone Gadiel Zavala MD Primary Care Provider [phone] Lyudmila Knox RN Unavailable Unavailable Jennifer Escalona RN Unavailable Agsutina vailable Active Problems Problem Noted Date Diagnosed Date Presence of Amulet left atrial appendage closure device 11/16/2023 Surgical complication involv ing both eyes, unspecified complication 10/24/2023 Visit for wound check 08/15/2022 Status post placement of implantable loop record er 08/09/2022 Overview (11/24/2023): Medtronic LNQ22 Loop Recorder. Dx; Syncope, Afib. DOI 08/08/2022-Dyer. [facility] remote monitoring. Amulet placed 11/16/23 Falls [...]
--- OUTSIDE RECORDS SUMMARY | 2024-11-28 12:50 | XMS_ITS | Referral Summary ---
Author Organization [facility] Address [address] [place] [address] Care Team Providers Care Senior Media Buyer Name Role Phone Gadiel Zavala MD Primary Care Provider [phone] Lyudmila Knox RN Unavailable Unavailable Jennifer Escalona RN Unavailable Agustina vailable Encounters Date Type Department Care Team Description 11/17/2024 Results Follow-Up [facility] Cardiology [address] [place] [address] [place] [address] Emilio Wahl MD NM MPI SPECT (Rest and/or Stress) Multiple Studies 11/11/2024 8:30 AM CDT Ancillary Procedure [facility] Cardiology [address] [place] [address] [place] [address] Paroxysmal atrial fibrillation (HCC); Status post placement of implantable loop recorder; Syncope, unspecified syncope type 11/06/2024 10:15 AM CDT Ancillary Procedure [facility] Cardiology [address] [facility] [address] [place] [address] Precordial pain 10/22/2024 9:15 AM CDT Office Visit [facility] Cardiology [address] [place] [phone] Emilio Wahl MD Precordial pain (Primary Dx); Paroxysmal atrial fibrillation (HCC); Frequent falls; Presence of Amulet left atrial appendage closure device; Essential hypertension; History of tobacco abuse 09/30/2024 9:00 AM CDT Ancillary Procedure [facility] Cardiology [address] [facility] [address] [facility] [address] Paroxysmal atrial fibrillation (HCC); Status post placement of implantable loop recorder; Syncope, unspecified syncope type 09/27/2024 Telephone [facility] Cardiology [address] [place], [place] [address] [place] [phone] Emilio Wahl MD from Last 3 Months Allergies Active Allergy [...] implantable loop record er 08/09/2022 Overview (11/24/2023): One Codex LNQ22 Loop Recorder. Dx; Syncope, Afib. DOI 08/08/2022-Chris. [facility] remote monitoring. Amulet placed 11/16/23 Falls [...] = 0.6 oz pur e alcohol) social [employer] Utilities Answer Date Recorded In the past 12 months has [employer] electric, gas, oil, or water [employer] threatened to shut off services in your [...] often do you attend chur ch or muslim services? 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 Author Increase physical activity Exercise Lyudmila Shah RN Note: She is doing arm and leg exercises from Pt. She was in rehab after neck surgery for 2 weeks in March 2017 Medical Devices Implanted Type Area Government Affairs Specialist Device Identifier Shelf Expiration Date Model / Serial / Lot Cage Cage Back Other Kit Stimulator Octrode L60 Cm Trial Lead Neurostimulator - [id number] Implanted:Qty: 1 on 05/03/2017 by Brice Eisenberg MD at [facility] Physician Office Building [address] [employer] 3086 / / Kit Stimulator Octrode L60 Cm Trial Lead Neurostimulator - [id number] Implanted:Qty: 1 on 05/03/2017 by Brice Eisenberg MD at [facility] Physician Office Building [address] [employer] 3086 / / Kit Neurostimulator Octrode L60 Cm Percutaneous 8 Electrode Lead - [id number] - [id number] Implanted:Qty: 1 on 06/22/2017 by Brice Eisenberg MD at [facility] N/A: Back [employer] 05/24/2019 [id number] / [id number] / Kit Neurostimulator Octrode L60 Cm Percutaneous 8 Electrode Lead - [id number] - [id number] Implanted:Qty: 1 on 06/22/2017 by Brice Eisenberg MD at [facility] N/A: Back [employer] 05/24/2019 [id number] / [id number] / [place] Lead Eduardo-Lock - [id number] Implanted:Qty: 2 on 06/22/2017 by Brice Eisenberg MD at [facility] N/A: Back [employer] 05/18/2019 1192 / / [id number] Generator Neurostimulator Proclaim Elite Thk13.4 Mm 5 In W49.5 Mm X H55.5 Mm Spinal Cord Implantable Pulse - Jxpm084.1 - [id number] Implanted:Qty: 1 on 06/22/2017 by Brice Eisenberg MD at [facility] N/A: Back [employer] 05/02/2019 3660ANS / [id number] / [employer] Vascular System Closure Repair Femoral Artery Suture Mediated Perclose Prostyle 44737-17 - [id number] Implanted:Qty: 1 on 11/16/2023 by Emilio Wahl MD at [facility] [employer] 07/29/2025 1 2773-03 / / [id number] [employer]her Vascular System Closure Repair Femoral Artery Suture Mediated Perclose Prostyle 39490-79 - [id number] Implanted:Qty: 1 on 11/16/2023 by Emilio Wahl MD at [facility] [employer] 07/29/2025 1 2773-03 / / [id number] [employer] Vascular System Closure Repair Femoral Artery Suture Mediated Perclose Prostyle 75373-68 - [id number] Implanted:Qty: 1 on 11/16/2023 by Emilio Wahl MD at [facility] [employer] 07/29/2025 1 2773-03 / / [id number] [employer] V[employer] Percutaneous Transcatheter Amplatzer Amulet 22mm 8-Yvb0-653-022 - [id number] Implanted:Qty: 1 on 11/16/2023 by Emilio Wahl MD at [facility] 11/29/2027 9 -ACP2-00 7-022 / / [id number] Procedures Procedure Name Priority Date/Time Associated Diagnosis [...] Modality Other Narrative 11/25/2024 8:00 AM CDT Medtronic Loop Recorder. Dx: Syncope Monitoring period: 30-Sep-2024 [...] AM CDT Narrative 11/06/2024 5:44 PM CDT [facility] Cardiology [address] [facility] [address], [place] [address] [address] [facility] [address], [place] [address], [place] [address] P:[phone] P:[phone] MPI Imaging Report Patient Name: GEORGIANA BOND D : 1950 Study Date: 11/06/2024 8:36:43 AM Gender: F Tech: PEYTON HOGANMT Location: [facility] Provider: EMILIO WAHL Height(Cm): 160 BSA: Weight(Kg): 63 BMI: 24.61 Order Provider: EMILIO WAHL PHYSICIAN: Primary Care Physician: Dr. Zavala. [facility] Physician: Emilio Wahl M.D., Maddie Stress Supervision: Emilio Wahl M.D., Maddie Stress Interpreting Physician: Emilio Wahl M.D., Maddie Image Interpreting Physician: Ricardo Ndiaye M.D. PROCEDURES: [...] SPECT. Electronically Signed By: Emilio Wahl MD, [facility] 11/06/2024 1:13:30 PM CDT Electronically Signed By: Dale Ndiaye MD 11/06/2024 4:58:30 PM CDT Procedure Note Dale Ndiaye MD - 11/06/2024 [facility] Cardiology [address] [address] [address] [address] [facility] [address], [place] [address], [place] [address] P:[phone] P:[phone] MPI Imaging Report Patient Name: GEORGIANA BOND D : 1950 Study Date: 11/06/2024 8:36:43 AM Gender: F Tech: [facility] Location: [facility] Provider: EMILIO WAHL Height(Cm): 160 BSA: Weight(Kg): 63 BMI: 24.61 Order Provider: EMILIO WAHL PHYSICIAN: Primary Care Physician: Dr. Zavala. [facility] Physician: Emilio Wahl M.D., F.A.C.C. Stress Supervision: Emilio Wahl M.D., F.A.C.C. Stress Interpreting Physician: Emilio Wahl M.D., F.A.C.C. Image Interpreting Physician: Ricardo Ndiaye M.D. PROCEDURES: [...] withSPECT. Electronically Signed By: Emilio Wahl MD, [facility] 11/06/2024 1:13:30 PM CDT Electronically Signed By: Dale Ndiaye MD 11/06/2024 4:58:30 PM CDT us Emilio Wahl MD IMG NM PROCEDURES Final Result * DEVICE CHECK - REMOTE (10/03/2024 11:41 AM CDT) Anatomical Region Laterality Modality Other Narrative 11/21/2024 10:05 AM CDT Medtronic LNQ22 Loop Recorder. Dx; [...] scanned report. [facility] remote f/u 11/11/24. Adria Camarena, LOGAN Emilio Wahl MD CV CARDIAC SERVICES PROCEDURES F inal Result from Last 3 Months Insurance [facility] MEDICARE ADVANTAGE [facility] MEDICARE ADVANTAGE [facility] MEDICARE ADVANTAGE Care Teams Senior Media Buyer Relationship Specialty Start Date End Date Gadiel Zavala MD [address] [address] PCP - General 06/13/16 Lyudmila Knox, RN Registered Nurse 04/14/17 Jennifer Escalona, RN Registered Nurse 05/10/17
== END 2024-11-28 12:47 | disposition home or self-care (01) ==
LOC: ANHAUDIO 12:46
PROVIDERS: PCP Family Medicine; Visit Provider Otolaryngology Otolaryngology/Facial Plastic Surgery
DX: H91.93 Unspecified hearing loss, bilateral (principal)
CPT/HCPCS: 92557; 92567

== ENCOUNTER 2024-12-31 00:55 | Day surgery (SDC) | payer MEDICARE, SELFPAY ==
--- OUTSIDE RECORDS SUMMARY | 2009-06-19 06:15 | XMS_ITS | Continuity of Care Document ---
Author Organization [facility] Address [address] [facility] [address] [place] [address] Phone Care Team Providers Care Physician Recruiter Name Role Phone Jorge Cevallos Unavailable Unavailable Procedures Procedure Date No Charge Glasses Check Office/outpatient Visit, Est Refraction Eye Exam & Treatment Refraction Advance Directives Directive Yes / No Effective Date File Name No Information Encounters Encounter Description Practice Location Reason(s) For Visit Diagnoses Date Provider Providers Copied on Encounter [facility], [address] [place] [address] [address], [place], [place], [id number], [place] tel:[phone] [facility] No Information 0 Ban Patel. [address] [facility] , [address], [place], [place], [facility], [place]. tel:[phone] Office/outpat ient Visit, Est [facility], [address] [place] [address] [address], [place], [place], [id number], [place] tel:[phone] [facility] No Information 200 9 Ban Patel. [address] [facility] , [address], [place], [address], [place]. tel:[phone] [facility], [address] [place] [address] [address], [place], [place], [id number], tel:[phone] [facility] No Information 200 7 Ban Patel. [address] [facility] , [address], [place], [address], [place]. tel:[phone] Family History Family Member Type Diagnosis Age At Onset No Information Payers Payer name Insurance type Covered green party ID Authoriza tion(s) No Information Social History [...]
[2024-12-13 11:43] VITALS: BMI 24.7
--- OUTSIDE RECORDS SUMMARY | 2024-12-31 00:57 | XMS_ITS ---
Author Organization [facility] Address [address] [place] [address] Care Team Providers Care Pick Up Man Name Role Phone Gadiel Zavala MD Primary Care Provider [phone] Lyudmila Knox RN Unavailable Unavailable Jennifer Escalona [...] Automatic Entry Manual Entr y Fluoro Time 14.22 minutes 2.32 minutes 11.9 minutes Air kerma at the reference point (Ka,r) 370 mGy 0 mGy 370 mGy
--- OUTSIDE RECORDS SUMMARY | 2024-12-31 00:57 | XMS_ITS | Clinical Summary ---
Author Organization [facility] Address [address] [place] [address] Phone Care Team Providers Care Clothing Cutter Name Role Phone Gadiel Zavala MD Primary Care Provider [phone] Allergies Active Allergy Reactions Criticality Noted Date [...] tablet Take 50 mcg by mouth daily supervisor matrix. Active atorvastatin (LIPITOR) 20 mg tablet Take [...] mouth daily. Active naloxone (NARCAN) 4 mg/spray [place], Non-Aerosol EMERGENCY USE ONLY: Administer 1 spray [...] Comments Blood Pressure 122/80 06/14/2022 10:12 AM PHILOSOPHY FACULTY Pulse 57 06/14/2022 10:12 AM PHILOSOPHY FACULTY Temperature 36.7 C (98.1 F) 02/05/2021 5:04 PM CDT Respiratory Rate 16 02/05/2021 5:04 PM CDT Oxygen Saturation 99% 02/05/2021 5:04 PM CDT Inhaled Oxygen Concentration - - Weight 57.4 kg (126 lb 8 oz) 06/14/2022 10:12 AM PHILOSOPHY FACULTY Height 152.4 cm (5') 06/14/2022 10:12 AM PHILOSOPHY FACULTY Body Mass Index 24.71 06/14/2022 10:12 AM PHILOSOPHY FACULTY Plan of Treatment Health Maintenance Due Date Last Done Comments DTAP/TDAP/TD VACCINES (1 - Tdap) 07/22/1967 PNEUMOCOCCAL VACCINE 50+ YEA RS (1 of 1 - PCV) 1998 ZOSTER VACCINE (1 of 2) 1998 OSTEOPOROSIS SCREENING 2013 RSV VACCINE (60+ or ) (1 - 1-dose 75+ series) 07/22/2023 INFLUENZA VACCINE (#1) 2024 01/26/2021, 2016 Medical Devices Implanted Type Area Curriculum Supervisor Device Identifier Shelf Expiration Date Model / Serial / Lot Spacer Bio Avs C-Plg 6mm 4d [id number] - [id number] Implanted:Qt y: 1 on 02/16/2017 by Mylene Gutierrez MD at [facility] Biological N/A: Spine Cervical Anterior SEN- SPINE 09/12/2020 [id number] / [id number] / Description:All [place] spac er plugs and other spinal hardware was processed on requisition,[id number] Plate Aviator 1lvl 12mm [id number] - [id number] Implanted:Qt y: 1 on 02/16/2017 by Mylene Gutierrez MD at [facility] Plate N/A: Spine Cervical Anterior SEN- SPINE [id number] / STERILIZED 02/16/2017 / LOAD24 Screw Avtr Va St 4.0x14mm [id number] - [id number] Implanted:Qt y: 4 on 02/16/2017 by Mylene Gutierrez MD at [facility] Screw N/A: Spine Cervical Anterior SEN- SPINE [id number] / STERILIZED 02/16/2017 / LOAD24 Sealant Floseal 10ml [id number] - [id number] Implanted:Qt y: 1 on 02/16/2017 by Mylene Gutierrez MD at [facility] Sealant N/A: Spine Cervical Anterior CHERRY- BIOSCIENCE [id number] 03/16/2018 [id number] / / [id number] Cages In Back Explanted Type Area Curriculum Supervisor Device Identifier Shelf Expiration Date Model / Serial / Lot Spinal Cord Generator And Leads Explanted:Qty: 1 on 11/16/2017 by Mylene Gutierrez MD at [facility] Lead N/A: Back Insurance [facility] Advance Directives For more information, please contact: [phone] * Full Code (Latest Code Status on [...] 12:48 PM 11/16/2017 12:50 PM Care Teams Clothing Cutter Relationship Specialty Start Date End Date Gadiel Zavala MD [address] [place] [address] PCP - General Family Practice 03/03/17
--- OUTSIDE RECORDS SUMMARY | 2024-12-31 00:57 | XMS_ITS | Clinical Summary ---
Author Organization [facility] Address [address] [place] [address] Phone Care Team Providers Care Softball Winder Name Role Phone Gadiel Zavala MD Primary [...] topic Insurance MEDICARE C AETNA Care Teams Softball Winder Relationship Specialty Start Date End Date Gadiel Zavala MD [address] [address] PCP - General Family Medicine 02/09/17
--- OUTSIDE RECORDS SUMMARY | 2024-12-31 00:57 | XMS_ITS | Encounter Summary ---
Author Organization [facility] Address [address] [place] [address] Care Team Providers Care Residential Program Manager Name Role Phone Gadiel Zavala MD Primary Care Provider [phone] Lyudmila Knox RN Unavailable Unavailable Jennifer Escalona RN Unavailable Agustina vailable Encounter Details Date Type Department Care Team (Late st Contact Info) Description 11/17/2024 Results Follow-Up [facility] Medical Group Cardiology [address] [place] [phone] [place] [address] [place] [address] [address] [facility] [address] [place] [address] NM MPI SPECT (Rest and/or Stress) Multiple Studies Social History Tobacco Use Types Packs/Day Years Used Date Smoking Tobacco: Former Cigarettes Q uit: 04/14/1987 Smokeless Tobacco: Never Alcohol Use Standard Drinks/Week Comments Yes 0 (1 standard drink = 0.6 oz pur e alcohol) social [facility] Utilities Answer Date Recorded In the past 12 months has [employer] electric, gas, oil, or water company threatened to shut off services in your home? 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
--- OUTSIDE RECORDS SUMMARY | 2024-12-31 00:57 | XMS_ITS | Clinical Summary ---
Author Organization [facility] Address [address] [facility] [place] [address] Care Team Providers Care Machine Programmer Name Role Phone Gadiel Zavala MD Primary Care Provider [phone] Source Comments [facility],non-owned Affiliates and Associated Physician Practices is amultiple site organization consisting of ambulatory clinics and hospital sitesin [place], [place], [place] and [place]. This disclosure is being madepursuant to the Care Everywhere program and may not contain all information available regarding this patient. Last updated 18.[facility] Allergies Active Allergy Reactions Criticality Noted Date [...] on file Legal Sex Female 2:12 PM [employer]IGH [employer]CHO[employer] TE[employer]ER Gender Identity Not on file Sexual [...] patient's age to complete this topic Insurance [facility] UHC MANAGED MEDICARE ADV Care Teams Machine Programmer Relationship Specialty Start Date End Date Gadiel Zavala MD [address] [facility] [address] [place] [address] PCP - General 02/15/21
--- OUTSIDE RECORDS SUMMARY | 2024-12-31 00:57 | XMS_ITS | Clinical Summary ---
Author Organization [facility] Address [address] [place] [address] Care Team Providers Care Garbage Pick Up Worker Name Role Phone Gadiel Zavala MD Primary Care Provider [phone] Lyudmila Knox RN Unavailable Unavailable Jennifer Escalona [...] tablet by mouth once daily 90 tablet 2 12/19/19 25 Active losartan (COZAAR) 25 mg tabletIndicatio ns:Essential hypertension Take 1 tablet by mouth once daily 90 tablet 1 06/26/19 25 025 Discontinued Active Problems Problem Noted Date [...] Encounters Date Type Department Care Team Description 12/23/2024 8:45 AM CDT Ancillary Procedure [facility] Medical Group Cardiology [address] [place] [address] [address] [facility] [place] [address] Paroxysmal atrial fibrillation (HCC); Status post placement of implantable loop recorder; Syncope, unspecified syncope type 11/17/2024 Results Follow-Up [facility] Cardiology [address] [place] [address] [address] [facility] [place] [phone] Emilio Wahl MD [place] MPI SPECT (Rest and/or Stress) Multiple Studies 11/11/2024 8:30 AM CDT Ancillary Procedure [facility] Cardiology [address] [place] [address] [place] [phone] Paroxysmal atrial fibrillation (HCC); Status post placement of implantable loop recorder; Syncope, unspecified syncope type 11/06/2024 10:15 AM CDT Ancillary Procedure [facility] Cardiology [address] [place] [phone] Precordial pain 10/22/2024 9:15 AM CDT Office Visit [facility] Cardiology [address] [place] [address] [place] [phone] Emilio Wahl MD Precordial pain (Primary Dx); Paroxysmal atrial fibrillation (HCC); Frequent falls; Presence of Amulet left atrial appendage closure device; Essential hypertension; History of tobacco abuse 09/30/2024 9:00 AM CDT Ancillary Procedure [facility] Cardiology [address] [place] [address] [place] [phone] Paroxysmal atrial fibrillation (HCC); Status post placement [...] 0.6 oz pur e alcohol) social [facility] Utilities Answer Date Recorded In the past [...] often do you attend chur ch or samaritan services? 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 Author Increase physical activity Exercise Lyudmila Shah, RN Note: She is doing arm and leg exercises from Pt. She was in rehab after neck surgery for 2 weeks in March 2017 Medical Devices Implanted Type Area Process Technician Device Identifier Shelf Expiration Date Model / Serial / Lot Cage Cage Back Other Kit Stimulator Octrode L60 Cm Trial Lead Neurostimulator - [id number] Implanted:Qty: 1 on 05/03/2017 by Brice Eisenberg MD at [facility] [address] [employer] 3086 / / Kit Stimulator Octrode L60 Cm Trial Lead Neurostimulator - [id number] Implanted:Qty: 1 on 05/03/2017 by Brice Eisenberg MD at [facility] [address] [employer] 3086 / / Kit Neurostimulator Octrode L60 Cm Percutaneous 8 Electrode Lead - [id number] - [id number] Implanted:Qty: 1 on 06/22/2017 by Brice Eisenberg MD at [facility] N/A: Back [employer] 05/24/2019 [id number] / [id number] / Kit Neurostimulator Octrode L60 Cm Percutaneous 8 Electrode Lead - [id number] - [id number] Implanted:Qty: 1 on 06/22/2017 by Brice Eisenberg MD at [facility] N/A: Back [employer] 05/24/2019 [id number] / [id number] / [place] Lead Eduardo-Lock - [id number] Implanted:Qty: 2 on 06/22/2017 by Brice Eisenberg MD at [facility] N/A: Back [employer] 05/18/2019 1192 / / [id number] Generator Neurostimulator Proclaim Elite Thk13.4 Mm 5 In W49.5 Mm X H55.5 Mm Spinal Cord Implantable Pulse - [id number] - [id number] Implanted:Qty: 1 on 06/22/2017 by Brice Eisenberg MD at [facility] N/A: Back [employer] 05/02/2019 [id number] / [id number] / [employer] System Closure Repair Femoral Artery Suture Mediated Perclose Prostyle 88064-17 - [id number] Implanted:Qty: 1 on 11/16/2023 by Emilio Wahl MD at [facility] [employer] 07/29/2025 1 2773- [id number] [employer] System Closure Repair Femoral Artery Suture Mediated Perclose Prostyle 27599-87 - [id number] Implanted:Qty: 1 on 11/16/2023 by Emilio Wahl MD at [facility] [employer] 07/29/2025 1 2773- / [id number] [employer] System Closure Repair Femoral Artery Suture Mediated Perclose Prostyle 66547-19 - [id number] Implanted:Qty: 1 on 11/16/2023 by Emilio Wahl MD at [facility] [employer] 07/29/2025 1 2773- / [id number] [employer] Percutaneous Transcatheter Amplatzer Amulet 22mm [id number] - [id number] Implanted:Qty: 1 on 11/16/2023 by Emilio Wahl MD at [facility] [employer] 11/29/2027 9 -[id number] 7-022 / / [id number] Procedures Procedure Name Priority Date/Time Associated Diagnosis Comments DEVICE CHECK - REMOTE Routine 12/24/2024 7:23 AM CDT Paroxysmal atrial fibrillation (HCC) Status post placement of implantable loop recorder Syncope, unspecified syncope type DEVICE CHECK - REMOTE Routine 11/12/2024 10:36 [...] Months Results * DEVICE CHECK - REMOTE (12/24/2024 7:23 AM CDT) Anatomical Region Laterality Modality Other Narrative 12/24/2024 3:05 PM CDT Medtronic LNQ22 Loop Recorder. Dx; Syncope, Afib. DOI 08/08/2022-[place]ga. [facility] remote monitoring. Amulet placed 11/16/23 Routine ILR remote. Normal device function. Battery function-good Presenting rhythm: NSR Medications: ASA 81 mg, losartan 25 mg, Toprol-XL 100 mg, Toprol-XL 25 mg, Amulet LAAO Counters since last scheduled transmission on 11/11/24. --36 Tachy - EGM demonstrates AFib with RVR with the longest episode lasting 57 minutes in duration --0 Darren --0 Pause --0 Symptom --14 AF - EGM demonstrates AFib with the longest episode lasting 3 hours and 14 minutes. AFib burden 1.7% See scanned report. [facility] remote f/u 02/03/25. Adria Camarena, LOGAN Emilio Wahl MD CV CARDIAC SERVICES PROCEDURES F inal Result * DEVICE CHECK - REMOTE (11/12/2024 10:36 [...] AM CDT Narrative 11/06/2024 5:44 PM CDT [facility] Medical Group Cardiology [address] [address] [address] [facility] [address], [place] [address], [place] [address] P:[phone] P:[phone] MPI Imaging Report Patient Name: GEORGIANA BOND D : 1950 Study Date: 11/06/2024 8:36:43 AM Gender: F Tech: SAMIRA [facility] Location: [facility] Provider: EMILIO WAHL Height(Cm): 160 BSA: Weight(Kg): 63 BMI: 24.61 Order Provider: EMILIO WAHL PHYSICIAN: Primary Care Physician: Dr. Zavala. [facility] Physician: Emilio Wahl M.D., F.A.C.C. Stress Supervision: [...] SPECT. Electronically Signed By: Emilio Wahl MD, [facility] 11/06/2024 1:13:30 PM CDT Electronically Signed By: Dale Ndiaye MD 11/06/2024 4:58:30 PM CDT Procedure Note Dale Ndiaye MD - 11/06/2024 [facility] Medical Group Cardiology [address] [facility] [address], [place] [address] [address] [facility] [address], [place] [address] [address], [place] [address] P:[phone] P:[phone] MPI Imaging Report Patient Name: GEORGIANA BOND D : 1950 Study Date: 11/06/2024 8:36:43 AM Gender: F Tech: PEYTON HOGANMT Location: [facility] Provider: EMILIO WAHL Height(Cm): 160 BSA: Weight(Kg): 63 BMI: 24.61 Order Provider: EMILIO WAHL PHYSICIAN: Primary Care Physician: Dr. Zavala. [facility] Physician: Emilio Wahl M.D., Maddie Stress Supervision: Emilio Wahl M.D., BriCShell Stress Interpreting Physician: Emilio Wahl M.D., BriCShell Image Interpreting Physician: Ricardo Ndiaye M.D. PROCEDURES: [...] withSPECT. Electronically Signed By: Emilio Wahl MD, [facility] 11/06/2024 1:13:30 PM CDT Electronically Signed By: Dale Ndiaye MD 11/06/2024 4:58:30 PM CDT Emilio Wahl MD IMG NM PROCEDURES Final [...] report. [facility] remote f/u 11/11/24. Adria Camarena, RN Emilio Wahl MD CV CARDIAC SERVICES PROCEDURES F inal Result from Last 3 Months Insurance [facility] MEDICARE ADVANTAGE [place] [id number] [facility] MEDICARE ADVANTAGE UHC MEDICARE ADVANTAGE [place] [id number] Care Teams Garbage Pick Up Worker Relationship Specialty Start Date End Date Gadiel Zavala MD [address] [address] PCP - General 06/13/16 Lyudmila Knox, RN Registered Nurse 04/14/17 Jennifer Escalona, RN Registered Nurse 05/10/17
[2024-12-31 10:03] VITALS: BP 129/79; PULSE 70; RESP 16; TEMP 36.2; O2SAT 100
[2024-12-31] MEDS: LACTATED RINGERS 1,000 ML 150 ML IV CONT (10:16)
--- NOTE | 2024-12-31 10:58 | WPDANESEPPF ---
Anes - Initial Pre Proc Eval Procedure: Operation Date: 12/31/24 10:45 Proposed Procedures p Esophagogastroduodenoscopy EGD - Simon Ordonez MD Date/Time: 12/31/24 10:58 Surgeon: Simon Ordonez MD Pre Op Diagnosis: GERD, Dyskinesia of esophagus Patient Data Age: 74 Gender: F Height: 1.6 m Weight: 60.7 kg Last Vital Signs Temp 97.2 F L 12/31/24 10:03 Pulse 70 12/31/24 10:03 Resp 16 12/31/24 10:03 BP 129/79 12/31/24 10:03 Pulse Ox 100 12/31/24 10:03 O2 Del Method Room Air 12/31/24 10:03 Allergies Allergy/AdvReac Type Severity Reaction Status Date / Time gadobenic acid (From Allergy Intermediate Hives & Verified 12/31/24 10:01 CONTRAST-MRI) SWELLING iohexol (From contrast - CT, Allergy Hives Verified 12/31/24 10:01 X-RAY) latex Allergy Hives Verified 12/31/24 10:01 adhesive tape AdvReac Mild SKIN Verified 12/31/24 10:01 IRRITATION Home Medications ?Medication ?Instructions ?Recorded ?Confirmed ?Type vitamin E 268 mg (400 unit) capsule 400 unit PO QAM 10/04/21 12/31/24 History aspirin 81 mg tablet,delayed 81 mg PO DAILY 07/20/22 12/31/24 History release (Adult Low Dose Aspirin) losartan 25 mg tablet 25 mg PO DAILY 08/05/22 12/31/24 History ferrous sulfate 324 mg (65 mg 324 mg PO DAILY #30 tabs 01/11/23 12/31/24 Rx iron) tablet,delayed release atorvastatin 20 mg tablet 20 mg PO QAM #90 tabs 04/15/24 12/31/24 Rx duloxetine 60 mg capsule,delayed 60 mg PO BID #180 caps 08/05/24 12/31/24 Rx release eszopiclone 3 mg tablet (Lunesta) 3 mg PO . q.h.s. PRN insomnia #30 09/18/24 12/31/24 Rx tabs levothyroxine 50 mcg tablet 50 mcg PO QAM #90 tabs 09/24/24 12/31/24 Rx metoprolol succinate 100 mg 100 mg PO QAM #30 tabs 11/08/24 12/31/24 Rx tablet,extended release 24 hr (Toprol XL) esomeprazole magnesium 40 mg 40 mg PO BID 1 month #60 caps 11/20/24 12/31/24 Rx capsule,delayed release Patient hx anesthesia problems: none Family hx anesthesia problems: none Results Review: All pre-operative results and documents have been reviewed as part of the pre-operative evaluation. [facility], LAT[facility] Past Medical History Medical History (Updated 11/20/24 @ 12:19 by Yadi Choi, COUNSELING SPECIALIST-C) Cricopharyngeal bar Infective otitis externa Mass of lower outer quadrant of right breast Osteopenia after menopause DEXA scan 10/25/2024 Revealed osteopenia with T-score -1.2 at the spine, -1.4 at the left hip and -0.5 at the right hip. Mass of lower inner quadrant of right breast (~06/14/24) mass right lower inner quadrant of the right breast noted on mammogram. Diagnostic mammogram and ultrasound revealed the lesion to be a skin lesion and not a breast mass. Routine mammogram. BMI 25.0-25.9,adult Paroxysmal atrial fibrillation New onset headache Vitamin B12 deficiency (06/27/23) level low at 322 with goal greater than 400 with folic acid 12.5 and hemoglobin 13.3 on 06/27/2023. Level normal at 435 with folic acid 17.4 and hemoglobin 13.6 on 09/27/2024. UTI (urinary tract infection) Normal urinalysis and culture on 09/27/2024. RUQ pain Dysphagia Black tongue Encounter for HCV screening test for low risk patient (12/28/22) Hepatitis C screening was negative on 12/28/2022. hepatitis C screening was negative on 06/27/2023. Radiculitis, cervical Generalized weakness Frequent falls Left arm weakness Cervicalgia Acute pain of left knee x-ray of the left knee on 01/18/2022 reveals no significant bony defects. Low ferritin level (12/25/21) ferritin low at 7 with iron 63 with 17% saturation on 12/25/2021. total iron 63 with 17% saturation and ferritin low at 7 with hemoglobin 13.3 12/27/2021. Iron 63 with 15% saturation and ferritin 11 with hemoglobin 12.8 on 12/28/2022. Iron normal at 118 with 29% saturation and ferritin low at 13 with hemoglobin 13.3 on 06/27/2023. Encounter for surgical aftercare following surgery on the digestive system Postoperative ileus Primary adenocarcinoma of ascending colon (09/01/21) right hemicolectomy 10/13/2021. Colonoscopy 11/21/2022 negative for recurrence with recheck in 3 years. CEA normal at 2.1 on 12/28/2022. Colon cancer, ascending Colonic mass (~09/01/21) 25-30 mm mass ascending colon On 09/01/2021. the patient had a right hemicolectomy on 10/13/2021 for adenocarcinoma of the ascending colon. Essential hypertension BMI 23.0-23.9, adult Weight loss, unintentional Vitamin D deficiency, unspecified (12/15/20) level low at 26 with goal greater than 30 on 12/15/2020. Level normal at 32 on 09/27/2024. Low iron (12/15/20) iron 51 with 14% saturation and hemoglobin 12.5 on 12/15/2020. Iron 63 with 17% saturation and ferritin low at 7 on 12/27/2021. Iron 63 with 15% saturation and ferritin low at 11 with hemoglobin 12.8 on 12/28/2022. Iron 118 with 29% saturation and ferritin 113 on 06/27/2023. Iron normal at 125 with 33% saturation and ferritin 35 with hemoglobin 13.6 on 09/27/2024. Chronic left hip pain Breast cancer screening by mammogram mammogram on 01/20/2021 was negative. Recheck in 1 year. Normal mammogram 01/24/2022. Normal mammogram 05/10/2023. Colon cancer screening Constipation Hiatal hernia Encounter for preprocedure screening laboratory testing for COVID-19 BMI 22.0-22.9, adult At high risk for falls Overactive bladder Chronic low back pain with left-sided sciatica Fatigue Seborrheic keratosis Insomnia Urinary frequency volume chart completed Chronic cough Urinary frequency Mixed hyperlipidemia total cholesterol 207, triglycerides 87, HDL 62, LDL 126 on 12/15/2020. Cholesterol 230, triglycerides 119, HDL 70, LDL 136 on 12/25/2021. Cholesterol 241, triglycerides 102, HDL 75, LDL 144 on 12/28/2022. Cholesterol 230, triglycerides 77, HDL 81, LDL 132 with ratio of 2.8 on 06/27/2023. Cholesterol 225, triglycerides 105, HDL 67, LDL 137 with ratio 3.4 on 09/27/2024. Hypothyroidism TSH 1.22 with free T4 at 1.5 on 12/15/2020. TSH 1.19 on 12/25/2021. TSH 0.77 on 06/27/2023. TSH 1.26 with free T4 1.3 on 09/27/2024. Chronic depression Chronic low back pain with right-sided sciatica X-ray of the lumbar spine on 01/18/2022 reveals previous posterior fusion from L3 through S1 unchanged from 08/11/2018 with new severe degenerative disc disease at L2-L3 chronic burst fracture with vertebroplasty at L1 unchanged. Elbow contusion Chronic back pain Arthritis GERD (gastroesophageal reflux disease) Hypertension Hyperlipidemia Peripheral neuropathy Surgical History Surgical History Hx of cervical spine surgery Hx of right hemicolectomy 10/13/2021 History of back surgery lumbosacral fusion Family History Family History Other Alcohol abuse Diabetes mellitus Hypertension Social History Social History Smoking packs per day: 0.25 Smoking cigarettes per day: 5.0 Years smoked: 40 Smoking pack-years: 10.00 Smoking status: Former smoker Tobacco type: cigarettes Second hand tobacco smoke exposure: No Smoking end date: 05/01/89 Alcohol intake: never Substance use: never Substance use type: does not use Do You Feel Safe in your Home?: Yes Lack of Transportation: No Lack of Food: Never True Current Housing: I Have Housing Concerned About Future Housing: No Difficulty Paying Gas/Electric Bills: No Difficulty Paying for Meds: No Currently Unemployed: Decline to Answer Education: High School Diploma/GED Difficulty w/ Childcare or Family Care: Decline to Answer Living arrangements: with family Additional living arrangements comments: Occupation/Education: retired Gender identity (if verbalized by the patient): Female Spiritual care concerns: No Anes - Eval Final PreProcedure Day of Procedure 12/31/24 10:58 Patient weight: normal Heart: regular rate and rhythm Lungs: clear to auscultation Airway: Mallampati scale class II Neurological: alert and oriented Last oral intake: >/= 8 hours ASA classification: III Emergent: no Anesthetic plan: proceed Anesthesia type and monitoring: general GIVS and standard monitoring Results Review: All pre-operative results and documents have been reviewed as part of the pre-operative evaluation. Informed Consent: The patient's anesthetic plan and its attendant risks and benefits were discussed with the patient/family/POA. Questions were solicited and answers provided to the satisfaction of the patient/family/POA.
--- NOTE | 2024-12-31 11:10 | PM.HPGS ---
History of Present Illness History of Present Illness Consent: Risks, benefits, and alternatives have been discussed and questions answered. Patient agrees to proceed with procedure. Chief complaint: GERD, Dyskinesia of esophagus Narrative: Kaitlin Bond is a 74 year old female with dysphagia, last egd 2020 Review of Systems Review of Systems: All systems reviewed & are unremarkable except as noted in HPI and below PMFSH Past Medical History Medical History (Updated 11/20/24 @ 12:19 by Yadi Choi, FUND DEVELOPMENT MANAGER-C) Cricopharyngeal bar Infective otitis externa Mass of lower outer quadrant of right breast Osteopenia after menopause DEXA scan 10/25/2024 Revealed osteopenia with T-score -1.2 at the spine, -1.4 at the left hip and -0.5 at the right hip. Mass of lower inner quadrant of right breast (~06/14/24) mass right lower inner quadrant of the right breast noted on mammogram. Diagnostic mammogram and ultrasound revealed the lesion to be a skin lesion and not a breast mass. Routine mammogram. BMI 25.0-25.9,adult Paroxysmal atrial fibrillation New onset headache Vitamin B12 deficiency (06/27/23) level low at 322 with goal greater than 400 with folic acid 12.5 and hemoglobin 13.3 on 06/27/2023. Level normal at 435 with folic acid 17.4 and hemoglobin 13.6 on 09/27/2024. UTI (urinary tract infection) Normal urinalysis and culture on 09/27/2024. RUQ pain Dysphagia Black tongue Encounter for HCV screening test for low risk patient (12/28/22) Hepatitis C screening was negative on 12/28/2022. hepatitis C screening was negative on 06/27/2023. Radiculitis, cervical Generalized weakness Frequent falls Left arm weakness Cervicalgia Acute pain of left knee x-ray of the left knee on 01/18/2022 reveals no significant bony defects. Low ferritin level (12/25/21) ferritin low at 7 with iron 63 with 17% saturation on 12/25/2021. total iron 63 with 17% saturation and ferritin low at 7 with hemoglobin 13.3 12/27/2021. Iron 63 with 15% saturation and ferritin 11 with hemoglobin 12.8 on 12/28/2022. Iron normal at 118 with 29% saturation and ferritin low at 13 with hemoglobin 13.3 on 06/27/2023. Encounter for surgical aftercare following surgery on the digestive system Postoperative ileus Primary adenocarcinoma of ascending colon (09/01/21) right hemicolectomy 10/13/2021. Colonoscopy 11/21/2022 negative for recurrence with recheck in 3 years. CEA normal at 2.1 on 12/28/2022. Colon cancer, ascending Colonic mass (~09/01/21) 25-30 mm mass ascending colon On 09/01/2021. the patient had a right hemicolectomy on 10/13/2021 for adenocarcinoma of the ascending colon. Essential hypertension BMI 23.0-23.9, adult Weight loss, unintentional Vitamin D deficiency, unspecified (12/15/20) level low at 26 with goal greater than 30 on 12/15/2020. Level normal at 32 on 09/27/2024. Low iron (12/15/20) iron 51 with 14% saturation and hemoglobin 12.5 on 12/15/2020. Iron 63 with 17% saturation and ferritin low at 7 on 12/27/2021. Iron 63 with 15% saturation and ferritin low at 11 with hemoglobin 12.8 on 12/28/2022. Iron 118 with 29% saturation and ferritin 113 on 06/27/2023. Iron normal at 125 with 33% saturation and ferritin 35 with hemoglobin 13.6 on 09/27/2024. Chronic left hip pain Breast cancer screening by mammogram mammogram on 01/20/2021 was negative. Recheck in 1 year. Normal mammogram 01/24/2022. Normal mammogram 05/10/2023. Colon cancer screening Constipation Hiatal hernia Encounter for preprocedure screening laboratory testing for COVID-19 BMI 22.0-22.9, adult At high risk for falls Overactive bladder Chronic low back pain with left-sided sciatica Fatigue Seborrheic keratosis Insomnia Urinary frequency volume chart completed Chronic cough Urinary frequency Mixed hyperlipidemia total cholesterol 207, triglycerides 87, HDL 62, LDL 126 on 12/15/2020. Cholesterol 230, triglycerides 119, HDL 70, LDL 136 on 12/25/2021. Cholesterol 241, triglycerides 102, HDL 75, LDL 144 on 12/28/2022. Cholesterol 230, triglycerides 77, HDL 81, LDL 132 with ratio of 2.8 on 06/27/2023. Cholesterol 225, triglycerides 105, HDL 67, LDL 137 with ratio 3.4 on 09/27/2024. Hypothyroidism TSH 1.22 with free T4 at 1.5 on 12/15/2020. TSH 1.19 on 12/25/2021. TSH 0.77 on 06/27/2023. TSH 1.26 with free T4 1.3 on 09/27/2024. Chronic depression Chronic low back pain with right-sided sciatica X-ray of the lumbar spine on 01/18/2022 reveals previous posterior fusion from L3 through S1 unchanged from 08/11/2018 with new severe degenerative disc disease at L2-L3 chronic burst fracture with vertebroplasty at L1 unchanged. Elbow contusion Chronic back pain Arthritis GERD (gastroesophageal reflux disease) Hypertension Hyperlipidemia Peripheral neuropathy Surgical History Surgical History Hx of cervical spine surgery Hx of right hemicolectomy 10/13/2021 History of back surgery lumbosacral fusion Family History Family History Other Alcohol abuse Diabetes mellitus Hypertension Social History Social History Smoking packs per day: 0.25 Smoking cigarettes per day: 5.0 Years smoked: 40 Smoking pack-years: 10.00 Smoking status: Former smoker Tobacco type: cigarettes Second hand tobacco smoke exposure: No Smoking end date: 05/01/89 Alcohol intake: never Substance use: never Substance use type: does not use Do You Feel Safe in your Home?: Yes Lack of Transportation: No Lack of Food: Never True Current Housing: I Have Housing Concerned About Future Housing: No Difficulty Paying Gas/Electric Bills: No Difficulty Paying for Meds: No Currently Unemployed: Decline to Answer Education: High School Diploma/GED Difficulty w/ Childcare or Family Care: Decline to Answer Living arrangements: with family Additional living arrangements comments: Occupation/Education: retired Gender identity (if verbalized by the patient): Female Spiritual care concerns: No Meds Home Medications and Allergies Home Medications ?Medication ?Instructions ?Recorded ?Confirmed ?Type vitamin E 268 mg (400 unit) capsule 400 unit PO QAM 10/04/21 12/31/24 History aspirin 81 mg tablet,delayed 81 mg PO DAILY 07/20/22 12/31/24 History release (Adult Low Dose Aspirin) losartan 25 mg tablet 25 mg PO DAILY 08/05/22 12/31/24 History ferrous sulfate 324 mg (65 mg 324 mg PO DAILY #30 tabs 01/11/23 12/31/24 Rx iron) tablet,delayed release atorvastatin 20 mg tablet 20 mg PO QAM #90 tabs 04/15/24 12/31/24 Rx duloxetine 60 mg capsule,delayed 60 mg PO BID #180 caps 08/05/24 12/31/24 Rx release eszopiclone 3 mg tablet (Lunesta) 3 mg PO . q.h.s. PRN insomnia #30 09/18/24 12/31/24 Rx tabs levothyroxine 50 mcg tablet 50 mcg PO QAM #90 tabs 09/24/24 12/31/24 Rx metoprolol succinate 100 mg 100 mg PO QAM #30 tabs 11/08/24 12/31/24 Rx tablet,extended release 24 hr (Toprol XL) esomeprazole magnesium 40 mg 40 mg PO BID 1 month #60 caps 11/20/24 12/31/24 Rx capsule,delayed release Allergies Allergy/AdvReac Type Severity Reaction Status Date / Time gadobenic acid (From Allergy Intermediate Hives & Verified 12/31/24 10:01 CONTRAST-MRI) SWELLING iohexol (From contrast - CT, Allergy Hives Verified 12/31/24 10:01 X-RAY) latex Allergy Hives Verified 12/31/24 10:01 adhesive tape AdvReac Mild SKIN Verified 12/31/24 10:01 IRRITATION Vital Signs Vital Signs - 24 hr 12/31/24 10:03 Temperature 97.2 F L Pulse Rate 70 Respiratory Rate 16 Blood Pressure 129/79 Pulse Oximetry 100 Oxygen Delivery Room Air Exam Const: General: comfortable and no acute distress HENMT: Face/Nose/Sinus: Normal nares present Eyes: General: appearance normal, both eyes and all related structures Neck: Neck: no JVD Resp: Auscultation: clear to auscultation bilaterally Cardio: Rate: regular rate Rhythm: regular rhythm GI: Inspection: non-distended GI Palp: Yes Soft to palpation Skin: General skin exam: normal color Neuro: Speech: normal speech Extrem: General: normal to inspection Psych: Mental Status: mental status grossly normal Assessment and Plan Assessment and plan (1) Dysphagia: Code(s): R13.10 - Dysphagia, unspecified Status: Acute Assessment and Plan: egd
[2024-12-31 11:24] VITALS: BP 117/59; PULSE 66; RESP 19; O2SAT 98
[2024-12-31 11:34] VITALS: BP 121/56; PULSE 62; RESP 15; O2SAT 100
[2024-12-31 11:44] VITALS: BP 151/51; PULSE 78; RESP 16; O2SAT 100
== END 2024-12-31 12:01 | disposition home or self-care (01) ==
PROVIDERS: PCP Family Medicine; Referring Provider Nurse Practitioner Family; Visit Provider Internal Medicine Gastroenterology
PROC: 0DJ08ZZ Inspection of Upper Intestinal Tract, Via Natural or Artificial Opening Endoscopic (ICD-10-PCS; CPT 43450; principal; 2024-12-31 10:45)
DX: K44.9 Diaphragmatic hernia without obstruction or gangrene (principal); K21.9 Gastro-esophageal reflux disease without esophagitis; I10 Essential (primary) hypertension; E55.9 Vitamin D deficiency, unspecified; E78.2 Mixed hyperlipidemia; E03.9 Hypothyroidism, unspecified; I48.0 Paroxysmal atrial fibrillation; E53.8 Deficiency of other specified B group vitamins; N32.81 Overactive bladder; R53.83 Other fatigue; L82.1 Other seborrheic keratosis; G47.00 Insomnia, unspecified; R35.0 Frequency of micturition; R05.3 Chronic cough; F32.A Depression, unspecified; G62.9 Polyneuropathy, unspecified; M85.88 Other specified disorders of bone density and structure, other site; G89.29 Other chronic pain; M25.552 Pain in left hip; M54.42 Lumbago with sciatica, left side; M54.41 Lumbago with sciatica, right side; Z79.82 Long term (current) use of aspirin; Z98.1 Arthrodesis status; Z90.49 Acquired absence of other specified parts of digestive tract; Z87.891 Personal history of nicotine dependence; Z85.038 Personal history of other malignant neoplasm of large intestine
CPT/HCPCS: 43450; J2003; J2704; J7120

== ENCOUNTER 2025-02-05 13:09 | Outpatient (CLI) | payer MEDICARE, SELFPAY ==
--- NOTE | ~2025-02-05 | CT_ITS ---
CT ABDOMEN AND PELVIS WITHOUT CONTRAST Clinical History: C18.2 - Malignant neoplasm of ascending colon Comparison: CT abdomen pelvis 04/13/2024 Technique: Unenhanced axial images lung bases to symphysis pubis Coronal, sagittal reformats CT images acquired with automatic exposure control for dose reduction DLP: 258 mGy-cm Findings: Without intravenous contrast, sensitivity for detecting visceral parenchymal abnormalities decreased. Lung bases: Clear. Visualized heart and pericardium: Unremarkable. Liver: Unremarkable. Gallbladder: Unremarkable. Spleen: Unremarkable. Pancreas: Unremarkable. Adrenal glands: Unremarkable. Kidneys: Right kidney- No hydronephrosis. No renal stones. Left kidney- No hydronephrosis. No renal stones. Distal esophagus/stomach: Small hiatal hernia. Small bowel loops: Normal caliber and wall thickness. Colon: Left hemicolectomy. Nodes: No enlarged nodes. Peritoneum: No ascites. No free intraperitoneal air. Urinary bladder: Unremarkable. Uterus: Removed. Adnexa: No masses. Bones: No acute bony abnormality. Soft tissues: Dystrophic calcification medial left gluteus. Unopacified abdominal aorta: No aneurysmal dilatation. IMPRESSION: 1. No evidence of malignancy or acute findings. Reviewed, dictated and finalized at location R.
== END 2025-02-05 13:10 | disposition home or self-care (01) ==
PROVIDERS: PCP Family Medicine; Visit Provider Surgery
DX: C18.2 Malignant neoplasm of ascending colon (principal)
CPT/HCPCS: 74176

== ENCOUNTER 2025-02-25 08:43 | Outpatient (CLI) | payer MEDICARE, SELFPAY ==
--- OUTSIDE RECORDS SUMMARY | 2009-06-19 06:15 | XMS_ITS | Continuity of Care Document ---
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, [address] [place] [address] [address], [place], [place], [id number], tel:[phone] [facility] No Information 0 Ban Patel. [address] [facility] , [address], [place], [place], [facility], [place]. tel:[phone] Office/outpat ient Visit, Est [facility], [address] [place] [address] [address], [place], [place], [id number], [place] tel:[phone] [facility] No Information 200 9 Ban Patel. [address] [facility] [address] , [address], [place], [address], [place]. tel:[phone] [facility], [address] [place] [address] [address], [place], [place], [id number], tel:[phone] [facility] No Information 200 7 Ban Patel. [address] [facility] , [address], [place], [address], [place]. tel:[phone] Family History Family Member Type Diagnosis Age At Onset No Information Payers Payer name Insurance type Covered republican ID Authoriza tion(s) No Information Social History Type Description Quantity Date Captured Comments Sex Female Smoking Status No Information Chief Complaint And Reason For Visit No Information Reason For Referral Reason For Referral No Information History Of Present Illness Encounter Date Complaint History Of Prese nt Illness No Information Functional Status Date Functional Assessmen t No Information Instructions Date Instruction Additional Infor mation No Information Assessments Type Assessment Date No Information Patient Care Teams Name Effective Dates (start - stop) Status Members No Information
--- NOTE | ~2025-02-25 | XR_ITS ---
MODIFIED ESOPHAGRAM HISTORY: Dysphagia. TECHNIQUE: Modified barium esophagram was performed on 02/25/2025. I administered fluoroscopy and performed the exam with speech pathologist. Patient was seated for lateral fluoroscopic imaging for ingestion of thin liquids, pudding, solids and quantified amounts, followed by thin liquids in uncontrolled amounts. This was recorded on tape. A single fluoroscopic spot image was also recorded. The DAP for this procedure was 2.013 Gycm2. The amount of fluoroscopy time used during this procedure was 2.8 minutes. FINDINGS: Oral stage: Adequate function. Pharyngeal stage: Reduced laryngeal elevation. There is trace laryngeal penetration with cracker consistencies before the initiation of the swallow secondary to premature spillage to the level of the vallecula. No aspiration. Cervical/esophageal stage: Adequate function. IMPRESSION: Mild pharyngeal dysphagia with laryngeal penetration without aspiration. Please correlate with speech pathologist findings and specific feeding recommendations. Reviewed, dictated and finalized at location A. IMPRESSION: Mild pharyngeal dysphagia with laryngeal penetration without aspira tion. Please correlate with speech pathologist findings and specific feeding r ecommendations.
--- OUTSIDE RECORDS SUMMARY | 2025-02-25 09:11 | XMS_ITS | Clinical Summary ---
Author Organization [facility] Address [address] [place] [address] Phone Care Team Providers Care Major Account Representative Name Role Phone Gadiel Zavala MD Primary Care Provider [phone] Allergies Active Allergy Reactions Criticality Noted Date [...] tablet Take 50 mcg by mouth daily dredge mate. Active atorvastatin (LIPITOR) 20 mg tablet Take [...] mouth daily. Active naloxone (NARCAN) 4 mg/spray [place], Non-Aerosol EMERGENCY USE ONLY: Administer 1 spray [...] Comments Blood Pressure 122/80 06/14/2022 10:12 AM DESIGN ARCHITECT Pulse 57 06/14/2022 10:12 AM DESIGN ARCHITECT Temperature 36.7 C (98.1 F) 02/05/2021 5:04 PM CDT Respiratory Rate 16 02/05/2021 5:04 PM CDT Oxygen Saturation 99% 02/05/2021 5:04 PM CDT Inhaled Oxygen Concentration - - Weight 57.4 kg (126 lb 8 oz) 06/14/2022 10:12 AM DESIGN ARCHITECT Height 152.4 cm (5') 06/14/2022 10:12 AM DESIGN ARCHITECT Body Mass Index 24.71 06/14/2022 10:12 AM DESIGN ARCHITECT Plan of Treatment Health Maintenance Due Date Last Done Comments DTAP/TDAP/TD VACCINES (1 - Tdap) 07/22/1967 PNEUMOCOCCAL VACCINE 50+ YEA RS (1 of 1 - PCV) 1998 ZOSTER VACCINE (1 of 2) 1998 OSTEOPOROSIS SCREENING 2013 RSV VACCINE (60+ or ) (1 - 1-dose 75+ series) 07/22/2023 INFLUENZA VACCINE (#1) 2024 01/26/2021, 2016 Medical Devices Implanted Type Area Government Affairs Fellow Device Identifier Shelf Expiration Date Model / Serial / Lot Spacer Bio Avs C-Plg 6mm 4d [id number] - [id number] Implanted:Qt y: 1 on 02/16/2017 by Mylene Gutierrez MD at [facility] Biological N/A: Spine Cervical Anterior OMARI- SPINE 09/12/2020 [id number] / [id number] / Description:All Omari spac er plugs and other spinal hardware was processed on requisition,[id number] Plate Aviator 1lvl 12mm [id number] - [id number] Implanted:Qt y: 1 on 02/16/2017 by Mylene Gutierrez MD at [facility] Plate N/A: Spine Cervical Anterior OMARI- SPINE [id number] / STERILIZED 02/16/2017 / LOAD24 Screw Avtr [address] 4.0x14mm [id number] - [id number] Implanted:Qt y: 4 on 02/16/2017 by Mylene Gutierrez MD at [facility] Screw N/A: Spine Cervical Anterior OMARI- SPINE [id number] / STERILIZED 02/16/2017 / LOAD24 Sealant Floseal 10ml [id number] - [id number] Implanted:Qt y: 1 on 02/16/2017 by Mylene Gutierrez MD at [facility] Sealant N/A: Spine Cervical Anterior CHERRY- BIOSCIENCE [id number] 03/16/2018 [id number] / / [id number] Cages In Back Explanted Type Area Government Affairs Fellow Device Identifier Shelf Expiration Date Model / Serial / Lot Spinal Cord Generator And Leads Explanted:Qty: 1 on 11/16/2017 by Mylene Gutierrez MD at [facility] Lead N/A: Back Insurance [facility] Advance Directives For more information, please contact: [phone] * Full Code (Latest Code Status on [...] 12:48 PM 11/16/2017 12:50 PM Care Teams Major Account Representative Relationship Specialty Start Date End Date Gadiel Zavala MD [address] [place] [address] PCP - General Family Practice 03/03/17
--- OUTSIDE RECORDS SUMMARY | 2025-02-25 09:11 | XMS_ITS | Clinical Summary ---
Author Organization [facility] Address [address] [facility] [place] [address] Care Team Providers Care Limerock Tower Loader Name Role Phone Gadiel Zavala MD Primary Care Provider [phone] Source Comments [facility],non-owned Affiliates and Associated Physician Practices is amultiple site organization consisting of ambulatory clinics and hospital sitesin [place], [place], [place] and [place]. This disclosure is being madepursuant to the Care Everywhere program and may not contain all information available regarding this patient. Last updated 18.[facility] Allergies Active Allergy Reactions Criticality Noted Date [...] (NEURIVA PO) Take by mouth. Ac tive cephalexin (Keflex) 500 MG capsule Take 1 (one) capsule by mouth 2 times daily Active Cyanocobalamin 1000 MCG Dissolve 1 lozenge under the tongue once daily Active esomeprazole (NexIUM) 40 MG capsule Take 1 (one) capsule by mouth 2 times daily 5 Active HYDROcodone-maria teresa taminophen ([place]) 5-325 MG tablet Take by mouth 4 times daily as needed Active sulfamethoxazol e-trimethoprim (Bactrim DS; Septra DS) 800-160 MG tablet Take 1 (one) tablet by mouth every 12 hours 4 Active vibegron (Gemtesa) 75 MG tablet Take by mouth once daily 5 Active Active Problems Problem Noted Date [...] Encounters Date Type Department Care Team Description 02/18/2025 Telephone [facility] [address] [place] [address] Mike Casillas, RN Scheduling Outreach (Esophageal manometry w/24 hour pH study scheduling attempt x1) 01/22/2025 8:45 AM CDT Office Visit [facility] - Ophthalmology [address] [place] [phone] Sin Romero MD Consecutive esotropia (Primary Dx); Diplopia; History of strabismus surgery 01/22/2025 Travel 01/15/2025 Travel 01/14/2025 Telephone [facility] - Ophthalmology [address] [place] [phone] Junior Thapa MD Eye Problem from Last 3 Months Social History Tobacco Use Types Packs/Day Years Used Date Smoking Tobacco: Former Cigarettes 0.3 6 0 05/01/1988 - 05/01/1994 Smokeless Tobacco: Never Comments:quit smoking in 199 0 Comments Unknown Sex and Gender Information Value Date Recorded Sex Assigned at Not on file Legal Sex Female 2:12 PM DIRECTOR ONLINE MARKETING Gender Identity Not on file Sexual Orientation [...] 02/01/2022 11:09 AM CDT Plan of Treatment Upcoming Encounters Date Type Department Care Team (Latest Contact Info) Description 04/14/2025 11:00 AM DIRECTOR ONLINE MARKETING Hospital Encounter [facility] [address] [place] [address] Surgery General 04/14/2025 11:00 AM DIRECTOR ONLINE MARKETING - 04/14/2025 12:30 PM DIRECTOR ONLINE MARKETING Surgery [facility] [place] [address] Procedure, Nursing G_I GASTRIC MOTILITY STUDY Scheduled Procedures Name Priority Associated Diagnoses Date/Ti me GASTRIC MOTILITY STUDY Diaphragmatic hernia without obstruction and without gangrene Dysphagia, unspecified type Gastroesophageal reflux disease, unspecified whether esophagitis present 04/14/2025 11:00 AM DIRECTOR ONLINE MARKETING ESOPHAGUS/GASTROESOPHAGEA L REFLUX TEST Diaphragmatic hernia without obstruction and without gangrene Dysphagia, unspecified type Gastroesophageal reflux disease, unspecified whether esophagitis present 04/14/2025 11:00 AM DIRECTOR ONLINE MARKETING Health Maintenance Due Date Last Done Comments BONE DENSITY TESTING 1950 HEPATITIS C SCREENING 07/17/1966 DTAP/TDAP/TD VACCINES (1 - Tdap) 07/22/1967 PNEUMOCOCCAL VACCINE 50+ (1 of 1 - PCV) 1998 ZOSTER VACCINE (1 of 2) 1998 Respiratory Syncytial Virus (RSV) Vaccine Pt: or over 60 yrs (1 - 1-dose 75+ series) 07/22/2023 DEPRESSION SCREENING 05/01/2024 MEDICARE AWV CALENDAR YEAR 2024 COVID-19 VACCINE ( season) 2024 01/02/2024, 01/24/2023, 01/27/2022, Additional history exists INFLUENZA VACCINE (#1) 2024 , 02/07/2020, 02/07/2019, Additional history exists HEPATITIS B VACCINE Aged Out No longe r eligible based on patient's age to complete this topic HIB VACCINE Aged Out No longer eligi ble based on patient's age to complete this topic HPV VACCINE Aged Out No longer eligi ble based on patient's age to complete this topic MENINGOCOCCAL (Group B) VACCINE SHARED DECISION-MAKING Aged Out No longer eligible based on patient's age to complete this topic MENINGOCOCCAL GROUPS A/C/Y/W VACCINE Aged Out No longer eligible based on patient's age to complete this topic Insurance AETNA AETNA UHC MANAGED MEDICARE ADV Care Teams Limerock Tower Loader Relationship Specialty Start Date End Date Gadiel Zavala MD [address] [facility] [address] [place] [address] PCP - General 02/15/21
--- OUTSIDE RECORDS SUMMARY | 2025-02-25 09:11 | XMS_ITS | Clinical Summary ---
Author Organization [facility] Address [address] [place] [address] Care Team Providers Care It Security Engineer Name Role Phone Gadiel Zavala MD Primary Care Provider [phone] Lyudmila Knox RN Unavailable Unavailable Jennifer Escalona [...] by mouth once daily 90 tablet 2 5 Active Active Problems Problem Noted Date Diagnosed Date Presence of Amulet left atrial appendage closure device 11/16/2023 Surgical complication involv ing both eyes, unspecified complication 10/24/2023 Visit for wound check 08/15/2022 Status post placement of implantable loop record er 08/09/2022 Overview (11/24/2023): Medtronic LNQ22 Loop Recorder. Dx; Syncope, Afib. DOI 08/08/2022-Chris. [facility] remote monitoring. Amulet placed 11/16/23 Falls [...] Encounters Date Type Department Care Team Description 02/05/2025 Orders Only [facility] Cardiology [address] [place] [phone] Emilio Leggett MD Status post placement of implantable loop recorder (Primary Dx); Syncope, unspecified syncope type; PAF (paroxysmal atrial fibrillation) 02/03/2025 8:45 AM CDT Ancillary Procedure [facility] [address] [place] [phone] Paroxysmal atrial fibrillation (HCC); Status post placement of implantable loop recorder; Syncope, unspecified syncope type 12/23/2024 8:45 AM CDT Ancillary Procedure [facility] [address] [facility] [address] [place] [phone] Paroxysmal atrial fibrillation (HCC); Status post [...] oz pur e alcohol) social [facility] Utilities Answer Date Recorded In the past 12 months has [employer], gas, oil, or water Gist threatened to shut off services in your [...] week 11/17/2023 How often do you attend [facility] or latter-day services? Never 11/17/2023 Do you belong to any clubs o r organizations such as religion groups, unions, fraternal or athletic groups, or [...] on file Legal Sex Female 3:22 AM DUPLICATION SPECIALIST Gender Identity Not on file Sexual [...] of 3) 05/27/2022 04/01/2022, 01/13 Covid-19 Vaccine (8 - 2024-2 6 season) 2024 01/24/2023, 01/27/2022, 09/15/2021, Additional history exists Influenza [...] March 2017 Medical Devices Implanted Type Area Sales Assistants And Salespersons Device Identifier Shelf Expiration Date Model / Serial / Lot Cage Cage Back Other Kit Stimulator Octrode L60 Cm Trial Lead Neurostimulator - [id number] Implanted:Qty: 1 on 05/03/2017 by Brice Eisenberg MD at [facility] [address] [facility] 3086 / / Kit Stimulator Octrode L60 Cm Trial Lead Neurostimulator - [id number] Implanted:Qty: 1 on 05/03/2017 by Brice Eisenberg MD at [facility] [address] [employer] 3086 / / Kit Neurostimulator Octrode L60 Cm Percutaneous 8 Electrode Lead - [id number] - [id number] Implanted:Qty: 1 on 06/22/2017 by Brice Eisenberg MD at [facility] N/A: Back [employer] 05/24/2019 [id number] / [id number] / Kit Neurostimulator Octrode L60 Cm Percutaneous 8 Electrode Lead - [id number] - [id number] Implanted:Qty: 1 on 06/22/2017 by Brice Eisenberg MD at [facility] N/A: Back [employer] 05/24/2019 [id number] / [id number] / [place] Lead Eduardo-Lock - [id number] Implanted:Qty: 2 on 06/22/2017 by Brice Eisenberg MD at [facility] N/A: Back [employer] 05/18/2019 [id number] / / [id number] Generator Neurostimulator Proclaim Elite Thk13.4 Mm 5 In W49.5 Mm X H55.5 Mm Spinal Cord Implantable Pulse - [id number] - [id number] Implanted:Qty: 1 on 06/22/2017 by Brice Eisenberg MD at [facility] N/A: Back [employer] 05/02/2019 [id number] / [id number] / [employer] Closure Repair Femoral Artery Suture Mediated Perclose Prostyle 36753-49 - [id number] Implanted:Qty: 1 on 11/16/2023 by Emilio Leggett MD at [facility] [employer] 07/29/2025 1 [id number] [employer] Closure Repair Femoral Artery Suture Mediated Perclose Prostyle 05505-71 - [id number] Implanted:Qty: 1 on 11/16/2023 by Emilio Leggett MD at [facility] [employer] 07/29/2025 1 [id number] / / [id number] [employer] Closure Repair Femoral Artery Suture Mediated Perclose Prostyle 38154-16 - [id number] Implanted:Qty: 1 on 11/16/2023 by Emilio Leggett MD at [facility] 07/29/2025 1 [id number] / / [id number] [place] [employer] Percutaneous Transcatheter Amplatzer Amulet 22mm [id number] - [id number] Implanted:Qty: 1 on 11/16/2023 by Emilio Leggett MD at [facility] 11/29/2027 9 -[id number] / / [id number] Procedures Procedure Name Priority Date/Time Associated Diagnosis Comments DEVICE CHECK - REMOTE Routine 02/05/2025 8:38 AM CDT Paroxysmal atrial fibrillation (HCC) Status post placement of implantable loop recorder Syncope, unspecified syncope type DEVICE CHECK - REMOTE Routine 12/24/2024 7:23 AM CDT Paroxysmal atrial fibrillation (HCC) Status post placement of implantable loop recorder Syncope, unspecified syncope type from Last 3 Months Results * DEVICE CHECK - REMOTE (02/05/2025 8:38 AM CDT) Anatomical Region Laterality Modality Other Narrative 02/12/2025 12:54 PM CDT Medtronic LNQ22 Loop Recorder. Dx; Syncope, Afib. DOI 08/08/2022-[place]. [facility] remote monitoring. Amulet placed 11/16/23 Routine ILR remote. Normal device function. Battery function-good Presenting rhythm: NSR Medications: ASA 81 mg, losartan 25 mg, Toprol-XL 100 mg, Toprol-XL for 25 mg, amulet 11/16/23 Counters since last scheduled transmission on 12/23/24. --9 Tachy --0 Darren --0 Pause --0 Symptom --8 AF - EGM demonstrates AFib. Longest episode was 7 hours and 40 minutes. AFib burden 1.1% See scanned report. [facility] remote f/u 03/17/25. Adria Camarena, RN us Emilio Leggett MD [facility] PROCEDURES F inal Result * DEVICE CHECK - REMOTE (12/24/2024 7:23 [...] report. [facility] remote f/u 02/03/25. Adria Camarena, RN Emilio Leggett MD [facility] PROCEDURES F inal Result from Last 3 Months Insurance UHC MEDICARE ADVANTAGE [facility] Address: [facility] [address] [place] [address] UHC MEDICARE ADVANTAGE [facility] MEDIC[facility] Address: [address] [address] [place] [address] [facility] MEDICARE ADVANTAGE [facility] MEDIC[facility] Address: [id number] [place] [phone] Care Teams It Security Engineer Relationship Specialty Start Date End Date Gadiel Zavala MD [address] [address] PCP - General 06/13/16 Lyudmila Knox, RN Registered Nurse 04/14/17 Jennifer Escalona, RN Registered Nurse 05/10/17
--- OUTSIDE RECORDS SUMMARY | 2025-02-25 09:11 | XMS_ITS ---
Author Organization [facility] Address [address] [place] [address] Care Team Providers Care Climbing Guide Name Role Phone Gadiel Zavala MD Primary Care Provider [phone] Lyudmila Knox RN Unavailable Unavailable Jennifer Escalona [...]
--- OUTSIDE RECORDS SUMMARY | 2025-02-25 09:11 | XMS_ITS | Clinical Summary ---
Author Organization [facility] Address [address] [place] [address] Phone Care Team Providers Care Insurance Special Agent Name Role Phone Gadiel Zavala MD Primary [...] 1998 Zoster Immunization (1 of 2) 1998 Medicare Initial AWV [id number] 02/09/2018 Respiratory Syncytial Virus (RSV) Immunization (Adult) (1 - 1-dose 75+ series) 07/22/2023 Influenza Immunization (#1) 2024 SARS-COV-2 Immunization ( - 2024- season) 2024 Hepatitis B Immunization Aged Out No [...] topic Insurance MEDICARE C AETNA Care Teams Insurance Special Agent Relationship Specialty Start Date End Date Gadiel Zavala MD [address] [id number] PCP - General Family Medicine 02/09/17
--- NOTE | 2025-02-25 09:47 | REHSTMBS ---
Assessment and note entered by Gin Dominguez, METALLURGIST HELPER Modified Barium Swallow Evaluation Feeding Type Recommended Oral Food Consistency Regular, Level 7 Liquid Consistency Thin (0) ST Clinical Summary The patient is a 74 year old female referred for a MBS to r/o aspiration risk. She has a prior history of dysphagia with a previous MBS completed 05/11/23 with noted penetration with liquids and speech therapy services following to address dysphagia strategies and recommendations. She reports difficulty primarily with liquids and that it seems to have become progressively worse. The patient was positioned in a lateral view and presented the following consistencies: 5cc/tsp thin liquid barium, cup trials thin liquid barium, pudding mixed with barium paste, and cracker coated with barium paste. Oral Stage: Oral preparation and transit was viewed to be timely for all consistencies. Pharyngeal Stage: When presented 5cc thin liquid barium, cup trials thin liquid barium, and pudding mixed with barium paste swallow initiation was completed in a timely manner without viewed aspiration or penetration. When presented cracker coated with barium paste the patient was viewed to have premature of the bolus to the level of the valleculae while continuing to masticate the remainder of the cracker texture. Trace penetration was viewed to begin to enter the laryngeal vestibule prior to swallow initiation. The penetrated material was cleared with completion of the swallow and the patient had a cough reflex sensing the trace penetration. With additional controlled bite size trials no further penetration noted. No residual was viewed to remain in the valleculae or pyriform sinus. Recommend: 1. Regular Diet / level 7 2. Thin Liquid / Level 0 3. Small bites and drinks 3. Discussed bolus control with patient to keep to small single controlled amounts for liquid and solids 4. No Straw or sequential swallows with drinks and solids. Thank you for the consult.
== END 2025-02-25 08:44 | disposition home or self-care (01) ==
PROVIDERS: PCP Family Medicine; Visit Provider Otolaryngology Otolaryngology/Facial Plastic Surgery
DX: R13.12 Dysphagia, oropharyngeal phase (principal)
CPT/HCPCS: 74230; 92611

== ENCOUNTER 2025-03-11 11:00 | Outpatient (RCR) | payer MEDICARE, SELFPAY ==
--- NOTE | 2025-03-05 16:18 | STOPEVAL1 ---
Assessment and note entered by Gin Dominguez TRAFFIC COUNTER Evaluation Information Assessment Status Evaluation Reported Pain Level Pain Score 0: Self Report Assessment ST Clinical Summary The patient is a 74 year old female referred for outpatient speech therapy services following a recent MBS completed 02/25/25 with noted trace penetration during the swallow with cracker/solid consistency due to reduced laryngeal elevation but clearing with completion of the swallow. The patient has a history of dysphagia that she reports has progressively become worse. She had previously had an MBS on 05/11/23 with speech services following due to noted penetration with thin liquids at that time. She reports most of her difficulty presently with liquids. The patient was assessed with the following consistencies: thin liquid via a cup, puree/ pudding texture, and solid/cracker texture. Oral Stage: Timely oral preparation and transit all consistencies. Pharyngeal Stage: When presented all consistencies swallow initiation was fairly timely in completion without noted coughing or choking. The patient did proceed with caution taking small controlled bites and drinks and applying the chin tuck posture previously recommended. Laryngeal elevation was slightly reduced but chin tuck offered improve airway protection. Results of outpatient evaluation in combination with recent MBS indicated mild pharyngeal dysphagia. Recommend outpatient speech therapy services to address tongue base retraction exercises for bolus control and timing of the swallow and laryngeal elevation exercises such as the Joy Maneuver and effortful swallow. In addition initiated compensatory dysphagia strategies for 1. Upright when eating 2. Small bites and drinks 3. Slow rate of intake 4. Chin tuck position with drinks. 5. No straw Recommend: Outpatient Speech therapy services 1x a week x 10 visits for dysphagia Plan of Care Interventions Treatment of Swallowing Dysfunction ST Services Indicated Yes Treatment Frequency and 1x a week x 10 visits. Duration These treatments will address the objective and functional deficits as defined above. The patient will be advanced safely and appropriately in order for the patient to progress towards his/her prior level of function. Additional exercises will be introduced and as well as a comprehensive home exercise program upon discharge, if needed, ?to ensure carryover of functional gains achieved in the clinic. This treatment plan has been reviewed and agreement upon by the patient.
--- NOTE | 2025-03-05 16:18 | OPREHPOC ---
Outpatient Therapy Plan of Care This is a Multidisciplinary Plan of Care that may contain components documented by all disciplines (PT, OT, and ST.) ST Problem 1 ST Problem #[address] Goal 1 Goal / Goal Update The patient will participate in home programming to improve carry over/generalization of skills to the home environment Target Visit [address] Problem #[address] Goal 1 Goal / Goal Update Dysphagia: 1. The patient will complete dysphagia exercises to include: Effortful swallow, Joy Maneuver, and Tongue Base Retraction Exercise with 85% accuracy and minimal cues. 2. The patient will complete and be compliant with a provided HEP with above exercises 85% of the time. 3. The patient will use compensatory dysphagia strategies to include 1. Small bites and drinks 2. Slow Rate 3. Chin tuck position 4. No Straw 5. Upright with meals with 85% accuracy and minimal cues.
--- NOTE | 2025-03-21 11:08 | STOPDC ---
Assessment and note entered by Gin Dominguez INTERNATIONAL LOGISTICS ANALYST Evaluation Information Assessment Status Discharge - Pt Not Present Assessment ST Clinical Summary Initial Evaluation: The patient is a 74 year old female referred for outpatient speech therapy services following a recent MBS completed 02/25/25 with noted trace penetration during the swallow with cracker/solid consistency due to reduced laryngeal elevation but clearing with completion of the swallow. The patient has a history of dysphagia that she reports has progressively become worse. She had previously had an MBS on 05/11/23 with speech services following due to noted penetration with thin liquids at that time. She reports most of her difficulty presently with liquids. The patient was assessed with the following consistencies: thin liquid via a cup, puree/ pudding texture, and solid/cracker texture. Oral Stage: Timely oral preparation and transit all consistencies. Pharyngeal Stage: When presented all consistencies swallow initiation was fairly timely in completion without noted coughing or choking. The patient did proceed with caution taking small controlled bites and drinks and applying the chin tuck posture previously recommended. Laryngeal elevation was slightly reduced but chin tuck offered improve airway protection. Results of outpatient evaluation in combination with recent MBS indicated mild pharyngeal dysphagia. Recommend outpatient speech therapy services to address tongue base retraction exercises for bolus control and timing of the swallow and laryngeal elevation exercises such as the Joy Maneuver and effortful swallow. In addition initiated compensatory dysphagia strategies for 1. Upright when eating 2. Small bites and drinks 3. Slow rate of intake 4. Chin tuck position with drinks. 5. No straw Recommend: Outpatient Speech therapy services 1x a week x 10 visits for dysphagia Discharge 03/21/25: Upon discharge the patient has been provided with dysphagia compensatory techniques for increasing safety with PO intake. In addition she has received training with a dysphagia exercise program and has been able to demonstrate the provided exercise program. The patient has opted to discharge at this time. Plan of Care ST Services Indicated No
== END 2025-03-21 13:12 | disposition home or self-care (01) ==
LOC: ANHST 11:00
PROVIDERS: PCP Family Medicine; Visit Provider Otolaryngology Otolaryngology/Facial Plastic Surgery
DX: R13.12 Dysphagia, oropharyngeal phase (principal); H90.3 Sensorineural hearing loss, bilateral
CPT/HCPCS: 92526; 92610